=== PATIENT | male | born 1960 | race Caucasian/White ===

== ENCOUNTER 2018-03-27 17:31 | Inpatient (IN) | payer MEDICARE ==
[2018-03-27] MEDS ORDERED: MORPHINE SULFATE 2 MG/ML DISP.SYRIN. IV (18:30)
[2018-03-27] MEDS: INSULIN LISPRO 300 UNITS/3 ML INSULN.PEN. SQ ×2 (18:30→23:37)
[2018-03-27] MEDS ORDERED: PIP/TAZO PER PHARMACY MC (18:30)
[2018-03-27] MEDS ORDERED: ONDANSETRON PF 4 MG/2 ML VIAL. IV (18:30)
[2018-03-27] MEDS ORDERED: DOCUSATE SODIUM 100 MG CAPSULE. PO (18:30)
[2018-03-27] MEDS: INSULIN REGULAR 100 UNIT/ML 3ML VIAL. IV ×2 (18:43→20:01)
[2018-03-27] MEDS: VANCOMYCIN 2 GM in IV 1/2 NORMAL SALINE 500 ML IV (18:46)
[2018-03-27] MEDS: PIPERACILLIN/TAZOBACTAM 2.25 GM in IV NORMAL SALINE 50ML 50 ML IV ×2 (19:00→22:00)
[2018-03-27 19:07] LABS: ALBUMIN 2.1 g/dL (3.4-5.0); ALK PHOS 125 U/L (46-116); ALT (SGPT) 14 U/L (16-63); AST (SGOT) 16 U/L (15-37); DIRECT BILIRUBIN 0.2 mg/dL (0.0-0.2); TOTAL BILIRUBIN 0.5 mg/dL (0.2-1.0); TOTAL PROTEIN 5.2 g/dL (6.4-8.2)
[2018-03-27 19:11] LABS: LACTIC ACID 1.3 mmol/L (0.4-2.0)
[2018-03-27 19:42] LABS: THYROID STIM HORMONE (TSH) 193.574 uIU/mL (0.358-3.74)
[2018-03-27] MEDS: INSULIN GLARGINE 300 UNITS/3 ML INSULN.PEN. SQ ×2 (20:02→23:36)
[2018-03-27] MEDS: VANCOMYCIN PER PHARMACY MC (20:05)
[2018-03-27 21:47] LABS: FREE T4 0.55 ng/dL (0.76-1.46)
[2018-03-27] MEDS: HEPARIN PF for SUB-Q USE 5,000 UNIT/0.5 ML VIAL. SQ (23:04)
[2018-03-28] MEDS ORDERED: PIPERACILLIN/TAZOBACTAM 3.375 GM in IV NORMAL SALINE 50ML 50 ML IV
[2018-03-28 03:52] LABS: POC GLUCOSE 481 mg/dL (70-99)
[2018-03-28 03:52] LABS: POC GLUCOSE 419 mg/dL (70-99)
[2018-03-28 03:52] LABS: POC GLUCOSE 486 mg/dL (70-99)
[2018-03-28 04:32] LABS: POC GLUCOSE 120 mg/dL (70-99)
[2018-03-28] MEDS: ACETAMINOPHEN 325 MG TABLET. PO (04:40)
[2018-03-28] MEDS: HEPARIN PF for SUB-Q USE 5,000 UNIT/0.5 ML VIAL. SQ ×3 (06:07→21:21)
[2018-03-28] MEDS: PIPERACILLIN/TAZOBACTAM 2.25 GM in IV NORMAL SALINE 50ML 50 ML IV ×3 (06:07→21:19)
[2018-03-28 07:55] LABS: POC GLUCOSE 33 mg/dL (70-99)
[2018-03-28] MEDS: DEXTROSE 50% 25 GM / 50ML DISP.SYRIN. IV (07:56)
[2018-03-28 07:59] LABS: ADD MAN DIFF? NO
[2018-03-28] MEDS: INSULIN LISPRO 300 UNITS/3 ML INSULN.PEN. SQ ×3 (08:00→17:11)
[2018-03-28 08:01] LABS: BASO # 0.1 x10^3/uL (0.0-0.2); BASO % 3 % (0-3); EOS % 1 % (0-3); HEMATOCRIT 28.9 % (39.0-53.0); HEMOGLOBIN 9.8 g/dL (13.0-17.5); LYMPH # 1.2 x10^3/uL (1.0-4.8); LYMPH % 28 % (24-48); MEAN CORPUSCULAR HEMOGLOBIN 29 pg (25-35); MEAN CORPUSCULAR HGB CONC 34 g/dL (31-37); MEAN CORPUSCULAR VOLUME 86 fL (79-100); MONO # 0.4 x10^3/uL (0.0-1.1); MONO % 10 % (0-9); NEUT # 2.4 x10^3uL (1.8-7.7); NEUT % 58 % (31-73); PLATELET COUNT 79 x10^3/uL (140-400); RED BLOOD COUNT 3.38 x10^6/uL (4.30-5.70); RED CELL DISTRIBUTION WIDTH 17.8 % (11.5-14.5); WHITE BLOOD COUNT 4.2 x10^3/uL (4.0-11.0)
[2018-03-28 08:08] LABS: POC GLUCOSE 128 mg/dL (70-99)
[2018-03-28] MEDS ORDERED: MAGNESIUM SULFATE 2GM 50 ML IV (08:30)
[2018-03-28 08:42] LABS: ANION GAP 4 (6-14); BLOOD UREA NITROGEN 42 mg/dL (8-26); CALCIUM 7.7 mg/dL (8.5-10.1); CARBON DIOXIDE 28 mmol/L (21-32); CHLORIDE 100 mmol/L (98-107); CREATININE 5.6 mg/dL (0.7-1.3); GFR 10.6; GLUCOSE 45 mg/dL (70-99); POTASSIUM 3.1 mmol/L (3.5-5.1); SODIUM 132 mmol/L (136-145)
[2018-03-28 09:11] LABS: POC GLUCOSE 74 mg/dL (70-99)
[2018-03-28] MEDS: VANCOMYCIN PER PHARMACY MC (09:47)
[2018-03-28] MEDS: POTASSIUM CHLORIDE 20 MEQ TABLET.ER. PO ×2 (10:08→14:52)
[2018-03-28 10:11] LABS: THYROID STIM HORMONE (TSH) 227.417 uIU/mL (0.358-3.74)
[2018-03-28] MEDS: DEXTROSE ORAL GEL 15 GM TUBE. PO (10:35)
[2018-03-28] MEDS ORDERED: DEXTROSE ORAL GEL 15 GM TUBE. (10:39)
[2018-03-28 11:43] LABS: POC GLUCOSE 59 mg/dL (70-99)
[2018-03-28 11:43] LABS: POC GLUCOSE 96 mg/dL (70-99)
[2018-03-28 12:33] LABS: VITAMIN-B12 1030 pg/mL (247-911)
[2018-03-28 12:34] LABS: POC GLUCOSE 101 mg/dL (70-99)
[2018-03-28] MEDS: IV DEXTROSE 10% 1,000 ML IV (13:30)
[2018-03-28 13:48] LABS: % ATYL 5 % (0-0); % BANDS 27 % (0-9); % BASOS 3 % (0-3); % EOS 6 % (0-5); % LYMPHS 23 % (24-48); % METAS 1 % (0-0); % MONOS 8 % (0-10); PLT ESTIMATE DECREASED (ADEQUATE)
[2018-03-28 13:49] LABS: % SEGS 27 % (35-66)
[2018-03-28 13:50] LABS: ANISOCYTOSIS SLIGHT; OVALOCYTES PRESENT; POLYCHROMASIA SLIGHT
[2018-03-28 14:11] LABS: POC GLUCOSE 156 mg/dL (70-99)
[2018-03-28] MEDS: LACTOBACILLUS RHAMNOSUS GG 1 CAPSULE. PO ×2 (14:24→14:32)
[2018-03-28] MEDS: LEVOTHYROXINE 137 MCG TABLET PO (14:26)
[2018-03-28] MEDS: ERGOCALCIFEROL (VITAMIN D2) 50,000 UNIT CAPSULE. PO (14:26)
[2018-03-28 16:57] LABS: POC GLUCOSE 157 mg/dL (70-99)
[2018-03-28] MEDS: ASPIRIN 325 MG TABLET PO (17:15)
[2018-03-28 20:06] LABS: BILIRUBIN,URINE SMALL (NEG); CLARITY,URINE CLEAR; COLOR,URINE YELLOW; GLUCOSE,URINE >=1000 mg/dL (NEG); NITRITE,URINE NEGATIVE (NEG); PROTEIN,URINE >=300 mg/dL (NEG-TRACE); UROBILINOGEN,URINE 0.2 mg/dL (0.2 mg/dL)
[2018-03-28 20:23] LABS: BACTERIA,URINE FEW /HPF (0-FEW); BARBITURATES NEG (NEG); BENZODIAZEPINES NEG (NEG); CANNABINOIDS NEG (NEG); COCAINE NEG (NEG); METHADONE NEG (NEG); OPIATES NEG (NEG); PHENCYCLIDINE NEG (NEG); SQUAMOUS EPITHELIAL CELL,UR FEW /LPF
[2018-03-28 20:26] LABS: AMPHETAMINE/METHAMPHETAMINE NEG (NEG)
[2018-03-28 20:27] LABS: ETHANOL, URINE NEG (NEG)
[2018-03-28] MEDS: INSULIN GLARGINE 300 UNITS/3 ML INSULN.PEN. SQ (21:20)
[2018-03-28 21:26] LABS: POC GLUCOSE 209 mg/dL (70-99)
[2018-03-28 22:13] LABS: MRSA BY PCR Negative (Negative)
[2018-03-29] MEDS: hydrALAZINE 20 MG/ML VIAL. IVP (03:18)
[2018-03-29] MEDS: VANCOMYCIN RANDOM LEVEL. MC (05:00)
[2018-03-29 05:12] LABS: HEMOGLOBIN 9.3 g/dL (13.0-17.5)
[2018-03-29 05:38] LABS: ALBUMIN 1.8 g/dL (3.4-5.0); ANION GAP 8 (6-14); BLOOD UREA NITROGEN 47 mg/dL (8-26); CALCIUM 7.5 mg/dL (8.5-10.1); CARBON DIOXIDE 27 mmol/L (21-32); CHLORIDE 100 mmol/L (98-107); CHOLESTEROL 130 mg/dL (0-200); CREATININE 6.3 mg/dL (0.7-1.3); GFR 9.3; GLUCOSE 262 mg/dL (70-99); HDLC 13 mg/dL (40-60); LDLC 38 mg/dL (0-100); MAGNESIUM 1.8 mg/dL (1.8-2.4); NON-HDL CHOLESTEROL 117 mg/dL (0-129); PHOSPHORUS 3.9 mg/dL (2.6-4.7); POTASSIUM 3.7 mmol/L (3.5-5.1); SODIUM 135 mmol/L (136-145); TRIGLYCERIDES 393 mg/dL (0-150); VLDLC 79 mg/dL (0-40)
[2018-03-29] MEDS: LEVOTHYROXINE 137 MCG TABLET PO (06:18)
[2018-03-29] MEDS: PIPERACILLIN/TAZOBACTAM 2.25 GM in IV NORMAL SALINE 50ML 50 ML IV ×3 (06:18→21:23)
[2018-03-29] MEDS: HEPARIN PF for SUB-Q USE 5,000 UNIT/0.5 ML VIAL. SQ ×3 (06:19→21:27)
[2018-03-29] MEDS: INSULIN LISPRO 300 UNITS/3 ML INSULN.PEN. SQ ×5 (08:00→17:11)
[2018-03-29] MEDS: LACTOBACILLUS RHAMNOSUS GG 1 CAPSULE. PO ×2 (08:05→21:22)
[2018-03-29] MEDS: ASPIRIN 325 MG TABLET PO (08:05)
[2018-03-29] MEDS ORDERED: DIALYSIS PATIENT. MC (09:00)
[2018-03-29] MEDS ORDERED: IV NORMAL SALINE 1000ML BAG 1,000 ML IV ×2 (09:00)
[2018-03-29] MEDS ORDERED: diphenhydrAMINE 50 MG/ML VIAL IV ×2 (09:00)
[2018-03-29 09:07] LABS: POC GLUCOSE 193 mg/dL (70-99)
[2018-03-29 12:03] LABS: POC GLUCOSE 136 mg/dL (70-99)
[2018-03-29 12:16] LABS: HEPATITIS B SURFACE AG Nonreactive (Nonreactive)
[2018-03-29] MEDS: VANCOMYCIN PER PHARMACY MC (13:16)
[2018-03-29] MEDS: VANCOMYCIN 500 MG in IV DEXTROSE 5% 100ML 100 ML IV (15:26)
[2018-03-29 17:08] LABS: POC GLUCOSE 167 mg/dL (70-99)
[2018-03-29] MEDS ORDERED: INSULIN GLARGINE 300 UNITS/3 ML INSULN.PEN. SQ (21:00)
[2018-03-29] MEDS: INSULIN GLARGINE 300 UNITS/3 ML INSULN.PEN. SQ (21:26)
[2018-03-29 21:36] LABS: POC GLUCOSE 142 mg/dL (70-99)
[2018-03-30] MEDS: traMADol 50 MG TABLET PO ×2 (01:09→21:01)
[2018-03-30] MEDS: HEPARIN PF for SUB-Q USE 5,000 UNIT/0.5 ML VIAL. SQ ×3 (06:00→21:02)
[2018-03-30] MEDS: LEVOTHYROXINE 137 MCG TABLET PO (06:07)
[2018-03-30] MEDS: PIPERACILLIN/TAZOBACTAM 2.25 GM in IV NORMAL SALINE 50ML 50 ML IV (06:10)
[2018-03-30] MEDS: INSULIN LISPRO 300 UNITS/3 ML INSULN.PEN. SQ ×6 (07:30→17:51)
[2018-03-30 07:53] LABS: POC GLUCOSE 88 mg/dL (70-99)
[2018-03-30 08:50] LABS: ALBUMIN 1.8 g/dL (3.4-5.0); ANION GAP 6 (6-14); BLOOD UREA NITROGEN 33 mg/dL (8-26); CARBON DIOXIDE 28 mmol/L (21-32); CHLORIDE 103 mmol/L (98-107); CREATININE 4.9 mg/dL (0.7-1.3); GFR 12.4; GLUCOSE 77 mg/dL (70-99); MAGNESIUM 1.9 mg/dL (1.8-2.4); PHOSPHORUS 2.9 mg/dL (2.6-4.7); POTASSIUM 3.6 mmol/L (3.5-5.1); SODIUM 137 mmol/L (136-145)
[2018-03-30 08:53] LABS: PARTIAL THROMBOPLASTIN TIME 42 SEC (24-38)
[2018-03-30] MEDS: DEXTROSE 50% 25 GM / 50ML DISP.SYRIN. IV (12:27)
[2018-03-30 12:28] LABS: POC GLUCOSE 59 mg/dL (70-99)
[2018-03-30] MEDS ORDERED: HEPARIN for IV BOLUS 10,000 UNIT/10 ML VIAL. (13:05)
[2018-03-30] MEDS ORDERED: LIDOCAINE 2%/EPI 1:100,000 20 ML VIAL. (13:05)
[2018-03-30 13:06] LABS: POC GLUCOSE 91 mg/dL (70-99)
[2018-03-30] MEDS ORDERED: fentaNYL PF VIAL 100 MCG/2 ML VIAL (13:45)
[2018-03-30] MEDS ORDERED: MIDAZOLAM HCL/PF 2 MG/2 ML VIAL. (13:45)
[2018-03-30] MEDS: LIDOCAINE 2%/EPI 1:100,000 20 ML VIAL. IJ (14:07)
[2018-03-30] MEDS: MIDAZOLAM HCL/PF 2 MG/2 ML VIAL. IV (14:08)
[2018-03-30] MEDS: fentaNYL PF VIAL 100 MCG/2 ML VIAL IV (14:08)
[2018-03-30] MEDS: HEPARIN for IV BOLUS 10,000 UNIT/10 ML VIAL. INT CAT (14:08)
[2018-03-30 17:26] LABS: POC GLUCOSE 230 mg/dL (70-99)
[2018-03-30] MEDS: ASPIRIN 325 MG TABLET PO (17:44)
[2018-03-30] MEDS: LACTOBACILLUS RHAMNOSUS GG 1 CAPSULE. PO ×2 (17:44→21:01)
[2018-03-30 20:38] LABS: POC GLUCOSE 333 mg/dL (70-99)
[2018-03-30] MEDS: INSULIN GLARGINE 300 UNITS/3 ML INSULN.PEN. SQ (21:03)
[2018-03-31] MEDS: hydrALAZINE 20 MG/ML VIAL. IVP (04:17)
[2018-03-31 04:34] LABS: ADD MAN DIFF? NO
[2018-03-31 04:46] LABS: BASO % 1 % (0-3); EOS % 1 % (0-3); HEMATOCRIT 26.6 % (39.0-53.0); HEMOGLOBIN 8.8 g/dL (13.0-17.5); LYMPH # 1.7 x10^3/uL (1.0-4.8); LYMPH % 46 % (24-48); MEAN CORPUSCULAR HEMOGLOBIN 29 pg (25-35); MEAN CORPUSCULAR HGB CONC 33 g/dL (31-37); MEAN CORPUSCULAR VOLUME 88 fL (79-100); MONO # 0.3 x10^3/uL (0.0-1.1); MONO % 8 % (0-9); NEUT # 1.7 x10^3uL (1.8-7.7); NEUT % 44 % (31-73); PLATELET COUNT 100 x10^3/uL (140-400); RED BLOOD COUNT 3.03 x10^6/uL (4.30-5.70); WHITE BLOOD COUNT 3.8 x10^3/uL (4.0-11.0)
[2018-03-31 05:20] LABS: MAGNESIUM 1.8 mg/dL (1.8-2.4)
[2018-03-31 05:27] LABS: ANION GAP 7 (6-14); BLOOD UREA NITROGEN 39 mg/dL (8-26); CALCIUM 7.3 mg/dL (8.5-10.1); CARBON DIOXIDE 29 mmol/L (21-32); CHLORIDE 102 mmol/L (98-107); CREATININE 5.8 mg/dL (0.7-1.3); GFR 10.2; GLUCOSE 258 mg/dL (70-99); PHOSPHORUS 3.5 mg/dL (2.6-4.7); POTASSIUM 4.3 mmol/L (3.5-5.1); SODIUM 138 mmol/L (136-145)
[2018-03-31] MEDS: HEPARIN PF for SUB-Q USE 5,000 UNIT/0.5 ML VIAL. SQ ×3 (05:49→20:54)
[2018-03-31] MEDS: LEVOTHYROXINE 137 MCG TABLET PO (06:03)
[2018-03-31 07:34] LABS: POC GLUCOSE 352 mg/dL (70-99)
[2018-03-31] MEDS: ASPIRIN 325 MG TABLET PO (07:43)
[2018-03-31] MEDS: LACTOBACILLUS RHAMNOSUS GG 1 CAPSULE. PO ×2 (07:44→20:40)
[2018-03-31] MEDS: INSULIN LISPRO 300 UNITS/3 ML INSULN.PEN. SQ ×6 (07:50→17:00)
[2018-03-31] MEDS ORDERED: DIALYSIS PATIENT. MC ×2 (08:30)
[2018-03-31] MEDS: VANCOMYCIN PER PHARMACY MC (10:46)
[2018-03-31 12:25] LABS: POC GLUCOSE 101 mg/dL (70-99)
[2018-03-31] MEDS: DEXTROSE 5% IV (13:43)
[2018-03-31] MEDS: CEFEPIME HCL IV (13:43)
[2018-03-31] MEDS: VANCOMYCIN 500 MG in IV DEXTROSE 5% 100ML 100 ML IV (15:08)
[2018-03-31 17:30] LABS: POC GLUCOSE 70 mg/dL (70-99)
[2018-03-31 20:44] LABS: POC GLUCOSE 431 mg/dL (70-99)
[2018-03-31] MEDS: INSULIN GLARGINE 300 UNITS/3 ML INSULN.PEN. SQ (20:47)
[2018-03-31] MEDS: ACETAMINOPHEN 325 MG TABLET. PO (23:56)
[2018-04-01 05:01] LABS: ADD MAN DIFF? NO
[2018-04-01 05:27] LABS: BASO # 0.1 x10^3/uL (0.0-0.2); BASO % 2 % (0-3); EOS % 0 % (0-3); HEMATOCRIT 24.5 % (39.0-53.0); LYMPH # 2.8 x10^3/uL (1.0-4.8); LYMPH % 61 % (24-48); MEAN CORPUSCULAR HEMOGLOBIN 29 pg (25-35); MEAN CORPUSCULAR HGB CONC 33 g/dL (31-37); MEAN CORPUSCULAR VOLUME 88 fL (79-100); MONO # 0.3 x10^3/uL (0.0-1.1); MONO % 7 % (0-9); NEUT # 1.4 x10^3uL (1.8-7.7); NEUT % 30 % (31-73); PLATELET COUNT 97 x10^3/uL (140-400); RED BLOOD COUNT 2.78 x10^6/uL (4.30-5.70); WHITE BLOOD COUNT 4.5 x10^3/uL (4.0-11.0)
[2018-04-01 06:05] LABS: MAGNESIUM 1.8 mg/dL (1.8-2.4)
[2018-04-01 06:06] LABS: ALBUMIN 1.9 g/dL (3.4-5.0); ANION GAP 4 (6-14); BLOOD UREA NITROGEN 28 mg/dL (8-26); CALCIUM 7.4 mg/dL (8.5-10.1); CARBON DIOXIDE 30 mmol/L (21-32); CHLORIDE 104 mmol/L (98-107); CREATININE 4.3 mg/dL (0.7-1.3); GFR 14.4; GLUCOSE 184 mg/dL (70-99); PHOSPHORUS 2.5 mg/dL (2.6-4.7); POTASSIUM 3.9 mmol/L (3.5-5.1); SODIUM 138 mmol/L (136-145)
[2018-04-01 06:09] LABS: % SAT IRON 14 % (15-34); IRON,SERUM 17 ug/dL (65-175)
[2018-04-01] MEDS: LEVOTHYROXINE 137 MCG TABLET PO (06:20)
[2018-04-01] MEDS: HEPARIN PF for SUB-Q USE 5,000 UNIT/0.5 ML VIAL. SQ ×3 (06:25→21:03)
[2018-04-01 06:26] LABS: FERRITIN 941 ng/mL (26-388)
[2018-04-01] MEDS: INSULIN LISPRO 300 UNITS/3 ML INSULN.PEN. SQ ×6 (08:00→17:42)
[2018-04-01 08:18] LABS: POC GLUCOSE 146 mg/dL (70-99)
[2018-04-01] MEDS: ASPIRIN 325 MG TABLET PO (08:32)
[2018-04-01] MEDS: LACTOBACILLUS RHAMNOSUS GG 1 CAPSULE. PO ×2 (08:32→20:55)
[2018-04-01] MEDS: VANCOMYCIN PER PHARMACY MC (10:58)
[2018-04-01 12:41] LABS: POC GLUCOSE 71 mg/dL (70-99)
[2018-04-01] MEDS: FERROUS SULFATE 325 MG TABLET. PO ×2 (14:18→20:55)
[2018-04-01 14:47] LABS: FECAL OB PT NEGATIVE (NEG); NEG OBC FOB NEG; POS OBC FOB POS
[2018-04-01 17:02] LABS: POC GLUCOSE 163 mg/dL (70-99)
[2018-04-01] MEDS: DARBEPOETIN ALFA 60 MCG/0.3 ML DISP.SYRIN. SQ (20:55)
[2018-04-01 20:58] LABS: POC GLUCOSE 127 mg/dL (70-99)
[2018-04-01] MEDS: INSULIN GLARGINE 300 UNITS/3 ML INSULN.PEN. SQ (21:02)
[2018-04-02 04:10] LABS: BASO # 0.1 x10^3/uL (0.0-0.2); BASO % 1 % (0-3); EOS # 0.1 x10^3/uL (0.0-0.7); EOS % 2 % (0-3); HEMATOCRIT 26.2 % (39.0-53.0); HEMOGLOBIN 8.8 g/dL (13.0-17.5); LYMPH # 4.4 x10^3/uL (1.0-4.8); LYMPH % 67 % (24-48); MEAN CORPUSCULAR HEMOGLOBIN 29 pg (25-35); MEAN CORPUSCULAR HGB CONC 33 g/dL (31-37); MEAN CORPUSCULAR VOLUME 88 fL (79-100); MONO # 0.5 x10^3/uL (0.0-1.1); MONO % 8 % (0-9); NEUT # 1.5 x10^3uL (1.8-7.7); NEUT % 22 % (31-73); PLATELET COUNT 118 x10^3/uL (140-400); RED BLOOD COUNT 2.98 x10^6/uL (4.30-5.70); RED CELL DISTRIBUTION WIDTH 18.1 % (11.5-14.5); WHITE BLOOD COUNT 6.6 x10^3/uL (4.0-11.0)
[2018-04-02 04:13] LABS: ADD MAN DIFF? YES; RETIC COUNT 1.1 % (0.5-2.5)
[2018-04-02 04:20] LABS: FIBRINOGEN 280 mg/dL (200-440)
[2018-04-02 04:22] LABS: MAGNESIUM 1.9 mg/dL (1.8-2.4)
[2018-04-02 04:25] LABS: ANION GAP 4 (6-14); BLOOD UREA NITROGEN 48 mg/dL (8-26); CALCIUM 7.4 mg/dL (8.5-10.1); CARBON DIOXIDE 30 mmol/L (21-32); CHLORIDE 103 mmol/L (98-107); CREATININE 5.1 mg/dL (0.7-1.3); GFR 11.8; GLUCOSE 149 mg/dL (70-99); PHOSPHORUS 3.3 mg/dL (2.6-4.7); POTASSIUM 4.4 mmol/L (3.5-5.1); SODIUM 137 mmol/L (136-145)
[2018-04-02 04:26] LABS: LACTATE DEHYDROGENASE 312 U/L (85-227)
[2018-04-02 06:07] LABS: % ATYL 3 % (0-0); % BANDS 5 % (0-9); % EOS 2 % (0-5); % LYMPHS 39 % (24-48); % MONOS 19 % (0-10); % SEGS 32 % (35-66)
[2018-04-02 06:08] LABS: ANISOCYTOSIS PRESENT; PLT ESTIMATE ADEQUATE (ADEQUATE)
[2018-04-02] MEDS: LEVOTHYROXINE 137 MCG TABLET PO (06:09)
[2018-04-02] MEDS: HEPARIN PF for SUB-Q USE 5,000 UNIT/0.5 ML VIAL. SQ (06:12)
[2018-04-02] MEDS: INSULIN LISPRO 300 UNITS/3 ML INSULN.PEN. SQ ×4 (08:00→12:36)
[2018-04-02] MEDS ORDERED: FERROUS SULFATE 325 MG TABLET. PO (08:00)
[2018-04-02 08:34] LABS: POC GLUCOSE 114 mg/dL (70-99)
[2018-04-02] MEDS: ASPIRIN 325 MG TABLET PO (08:51)
[2018-04-02] MEDS: FERROUS SULFATE 325 MG TABLET. PO ×2 (08:51→14:31)
[2018-04-02] MEDS: LACTOBACILLUS RHAMNOSUS GG 1 CAPSULE. PO (08:51)
[2018-04-02 11:36] LABS: POC GLUCOSE 90 mg/dL (70-99)
[2018-04-02] MEDS: VANCOMYCIN PER PHARMACY MC (13:02)
[2018-04-02] MEDS ORDERED: HEPARIN PF for SUB-Q USE 5,000 UNIT/0.5 ML VIAL. SQ (21:00)
[2018-04-03 12:37] LABS: VITAMIN-B12 681 pg/mL (247-911)
[2018-04-03 12:37] LABS: FOLATE 5.49 ng/ml (3.2-20.0)
[2018-04-03 15:03] LABS: HIV AB SCREEN Nonreactive (Nonreactive)
[2018-04-03] MEDS ORDERED: CEFEPIME HCL IV Push 2 GM VIAL. IVP (16:00)
[2018-04-04 06:20] LABS: ALBUM 2.3 g/dL (2.9-4.4); ALPHA 1 0.3 g/dL (0.0-0.4); ALPHA 2 0.7 g/dL (0.4-1.0); BETA 0.7 g/dL (0.7-1.3); GAMMA 0.8 g/dL (0.4-1.8); M-SPIKE Not Observed g/dL (Not Observed); PROTEIN TOTAL 4.7 g/dL (6.0-8.5)
[2018-04-05 00:13] LABS: COPPER LEVEL 105 ug/dL (72-166)
== END 2018-04-02 14:50 | disposition home or self-care (01) | DRG 871 ==
LOC: 2 NORTH 03-30 00:38 → 1 WEST ICU 17:31
PROVIDERS: Internal Medicine
PROC: 02PY33Z Removal of Infusion Device from Great Vessel, Percutaneous Approach (ICD-10-PCS; principal; 2018-03-30)
PROC: 02H633Z Insertion of Infusion Device into Right Atrium, Percutaneous Approach (ICD-10-PCS; 2018-03-30)
PROC: B2141ZZ Fluoroscopy of Right Heart using Low Osmolar Contrast (ICD-10-PCS; 2018-03-30)
PROC: 5A1D70Z Performance of Urinary Filtration, Intermittent, Less than 6 Hours Per Day (ICD-10-PCS; 2018-03-30)
PROC: 5A1D70Z Performance of Urinary Filtration, Intermittent, Less than 6 Hours Per Day (ICD-10-PCS; 2018-03-30)
PROC: 0JPT3XZ Removal of Tunneled Vascular Access Device from Trunk Subcutaneous Tissue and Fascia, Percutaneous Approach (ICD-10-PCS; 2018-03-30)
DX: A41.9 Sepsis, unspecified organism (principal); I63.9 Cerebral infarction, unspecified; N18.6 End stage renal disease; G92 Toxic encephalopathy; I12.0 Hypertensive chronic kidney disease with stage 5 chronic kidney disease or end stage renal disease; J90 Pleural effusion, not elsewhere classified; D61.818 Other pancytopenia; E11.65 Type 2 diabetes mellitus with hyperglycemia; E11.22 Type 2 diabetes mellitus with diabetic chronic kidney disease; E11.649 Type 2 diabetes mellitus with hypoglycemia without coma; E21.3 Hyperparathyroidism, unspecified; E03.9 Hypothyroidism, unspecified; M19.90 Unspecified osteoarthritis, unspecified site; K21.9 Gastro-esophageal reflux disease without esophagitis; K63.5 Polyp of colon; H54.7 Unspecified visual loss; D63.8 Anemia in other chronic diseases classified elsewhere; D69.59 Other secondary thrombocytopenia; G89.29 Other chronic pain; E87.6 Hypokalemia; E78.5 Hyperlipidemia, unspecified; E55.9 Vitamin D deficiency, unspecified; E61.1 Iron deficiency; Z79.4 Long term (current) use of insulin; Z83.3 Family history of diabetes mellitus; Z82.49 Family history of ischemic heart disease and other diseases of the circulatory system; Z88.8 Allergy status to other drugs, medicaments and biological substances; Z87.891 Personal history of nicotine dependence; Z84.89 Family history of other specified conditions; Z99.2 Dependence on renal dialysis; Z91.19 Patient's noncompliance with other medical treatment and regimen
CPT/HCPCS: 36415; 36581; 70551; 71045; 77001; 80048; 80061; 80069; 80076; 80202; 80307; 81001; 82274; 82306; 82607; 82728; 82746; 82962; 83036; 83540; 83550; 83605; 83615; 83735; 84165; 84439; 84443; 84481; 85007; 85018; 85025; 85045; 85384; 85610; 85730; 86703; 87040; 87340; 87641; 93005; 93880; 95816; 97110-GP; 97116-GP; 97140-GP; 97162-GP; 97166-GO; 99152; C1750; C1769; C8929; J0360; J0692; J0881; J1644; J1815; J2250; J2543; J3010; J3370; J3490; J7042

== ENCOUNTER 2018-05-01 07:44 | Inpatient (IN) | payer MEDICARE ==
[2018-05-01 08:09] LABS: ADD MAN DIFF? NO
[2018-05-01 08:14] LABS: BASO # 0.1 x10^3/uL (0.0-0.2); BASO % 1 % (0-3); EOS # 0.7 x10^3/uL (0.0-0.7); EOS % 8 % (0-3); HEMATOCRIT 27.8 % (39.0-53.0); HEMOGLOBIN 9.3 g/dL (13.0-17.5); LYMPH # 2.3 x10^3/uL (1.0-4.8); LYMPH % 28 % (24-48); MEAN CORPUSCULAR HEMOGLOBIN 31 pg (25-35); MEAN CORPUSCULAR HGB CONC 33 g/dL (31-37); MEAN CORPUSCULAR VOLUME 92 fL (79-100); MONO # 0.6 x10^3/uL (0.0-1.1); MONO % 8 % (0-9); NEUT # 4.4 x10^3uL (1.8-7.7); NEUT % 54 % (31-73); PLATELET COUNT 154 x10^3/uL (140-400); RED BLOOD COUNT 3.02 x10^6/uL (4.30-5.70); RED CELL DISTRIBUTION WIDTH 18.5 % (11.5-14.5); WHITE BLOOD COUNT 8.1 x10^3/uL (4.0-11.0)
[2018-05-01 08:24] LABS: INR 1.1 (0.8-1.1); PROTHROMBIN TIME PATIENT 13.9 SEC (11.7-14.0)
[2018-05-01 08:25] LABS: PARTIAL THROMBOPLASTIN TIME 38 SEC (24-38)
[2018-05-01 08:26] LABS: ANION GAP 11 (6-14); BLOOD UREA NITROGEN 52 mg/dL (8-26); CALCIUM 8.1 mg/dL (8.5-10.1); CARBON DIOXIDE 23 mmol/L (21-32); CHLORIDE 99 mmol/L (98-107); GFR 8.2; GLUCOSE 308 mg/dL (70-99); POTASSIUM 5.8 mmol/L (3.5-5.1); SODIUM 133 mmol/L (136-145)
[2018-05-01 08:35] LABS: TROPONINI < 0.017 ng/mL (0.000-0.055)
[2018-05-01] MEDS: METOPROLOL SUCC 24HR ER 25 MG TAB.ER.24H. PO ×2 (09:22→14:00)
[2018-05-01] MEDS: amLODIPine BESYLATE 5 MG TABLET PO (09:23)
[2018-05-01] MEDS ORDERED: ONDANSETRON PF 4 MG/2 ML VIAL. IV (09:30)
[2018-05-01] MEDS ORDERED: ACETAMINOPHEN 325 MG TABLET. PO (09:30)
[2018-05-01 11:21] LABS: POC GLUCOSE 263 mg/dL (70-99)
[2018-05-01] MEDS ORDERED: DEXTROSE 50% 25 GM / 50ML DISP.SYRIN. IV (13:00)
[2018-05-01] MEDS: ASPIRIN 325 MG TABLET PO (14:00)
[2018-05-01] MEDS: FERROUS SULFATE 325 MG TABLET. PO ×2 (14:00→20:53)
[2018-05-01] MEDS: LEVOTHYROXINE 137 MCG TABLET PO (14:00)
[2018-05-01] MEDS: INSULIN LISPRO 300 UNITS/3 ML INSULN.PEN. SQ ×2 (16:30→16:39)
[2018-05-01] MEDS: METOCLOPRAMIDE 5 MG TABLET. PO (20:53)
[2018-05-01 21:26] LABS: POC GLUCOSE 291 mg/dL (70-99)
[2018-05-01] MEDS: ZOLPIDEM 5 MG TABLET. PO (21:27)
[2018-05-02 01:38] LABS: HEPATITIS B SURFACE AG Nonreactive (Nonreactive)
[2018-05-02] MEDS: LEVOTHYROXINE 137 MCG TABLET PO (06:28)
[2018-05-02 07:29] LABS: POC GLUCOSE 495 mg/dL (70-99)
[2018-05-02] MEDS: INSULIN LISPRO 300 UNITS/3 ML INSULN.PEN. SQ ×5 (07:33→12:12)
[2018-05-02] MEDS: METOPROLOL SUCC 24HR ER 25 MG TAB.ER.24H. PO ×2 (07:51→09:36)
[2018-05-02] MEDS: PANTOPRAZOLE 40 MG TABLET.DR. PO (07:51)
[2018-05-02] MEDS: METOCLOPRAMIDE 5 MG TABLET. PO ×2 (07:51→12:07)
[2018-05-02] MEDS: ASPIRIN 325 MG TABLET PO (07:51)
[2018-05-02] MEDS: FERROUS SULFATE 325 MG TABLET. PO (07:51)
[2018-05-02 08:29] LABS: POC GLUCOSE 434 mg/dL (70-99)
[2018-05-02] MEDS ORDERED: INSULIN ASPART 100 UNIT/ML 10ML VIAL. SQ (09:00)
[2018-05-02 11:31] LABS: POC GLUCOSE 352 mg/dL (70-99)
== END 2018-05-02 12:55 | disposition home or self-care (01) | DRG 682 ==
LOC: ER 07:44 → 6 SOUTH 09:20
PROC: 5A1D70Z Performance of Urinary Filtration, Intermittent, Less than 6 Hours Per Day (ICD-10-PCS; principal; 2018-05-01)
DX: I12.0 Hypertensive chronic kidney disease with stage 5 chronic kidney disease or end stage renal disease (principal); N18.6 End stage renal disease; E87.5 Hyperkalemia; I16.0 Hypertensive urgency; E11.22 Type 2 diabetes mellitus with diabetic chronic kidney disease; E78.5 Hyperlipidemia, unspecified; E03.9 Hypothyroidism, unspecified; D64.9 Anemia, unspecified; Z99.2 Dependence on renal dialysis; Z88.8 Allergy status to other drugs, medicaments and biological substances; Z82.49 Family history of ischemic heart disease and other diseases of the circulatory system; Z83.3 Family history of diabetes mellitus; Z80.9 Family history of malignant neoplasm, unspecified
CPT/HCPCS: 36415; 71045; 80048; 82962; 84484; 85025; 85610; 85730; 87340; 93005; 99285-25; J1815; J8597

== ENCOUNTER 2018-08-04 07:25 | Inpatient (IN) | payer MEDICARE ==
[~2018-08-04] VITALS: Ht 175.3 cm; Wt 93.9 kg
[~2018-08-04 07:25] MED LIST: AMLO10TA6 PO; ASPI325T8 PO; CYAN100031 PO; ERGO500027 PO; FERR325T14 PO; FERR325T72 PO; FOLI1TAB30 PO; FURO80TA3 PO; HYDR-2869 PO; INSU100I11 SQ; INSU100I13 SQ; INSU100I17 SQ; INSU100V8 SQ; LEVO137T2 PO; LEVO50TA PO; METF10007 PO; METO-239 PO; MULT-658 PO; POTA500T5 PO; RABE20TA18 PO; THYR90TA PO
[2018-08-04 07:50] LABS: BASO # 0.2 x10^3/uL (0.0-0.2); BASO % 2 % (0-3); EOS # 0.4 x10^3/uL (0.0-0.7); EOS % 5 % (0-3); HEMATOCRIT 33.4 % (39.0-53.0); HEMOGLOBIN 11.2 g/dL (13.0-17.5); LYMPH # 1.5 x10^3/uL (1.0-4.8); LYMPH % 18 % (24-48); MEAN CORPUSCULAR HEMOGLOBIN 29 pg (25-35); MEAN CORPUSCULAR HGB CONC 33 g/dL (31-37); MEAN CORPUSCULAR VOLUME 86 fL (79-100); MONO # 0.4 x10^3/uL (0.0-1.1); MONO % 5 % (0-9); NEUT # 5.7 x10^3uL (1.8-7.7); NEUT % 70 % (31-73); PLATELET COUNT 228 x10^3/uL (140-400); RED BLOOD COUNT 3.88 x10^6/uL (4.30-5.70); RED CELL DISTRIBUTION WIDTH 17.7 % (11.5-14.5); WHITE BLOOD COUNT 8.2 x10^3/uL (4.0-11.0)
--- NOTE | 2018-08-04 07:57 | PHYS DOC ---
Past Medical History Past Medical History: Diabetes-Type II, High Cholesterol, Hypertension, Renal Failure Past Surgical History: Other Additional Past Surgical Histo: AV SHUNT RUE, CVC R CHEST FOR DIALYSIS Alcohol Use: None Drug Use: None Adult General Chief Complaint Chief Complaint: SHORTNESS OF BREATH HPI HPI Patient is a 58 year old m biba from [place] dialysis. bg was readign high , vomiting since two am no chest pain no fever no abdo pain. did 40 min dialysis, they gave sq insulin, they gave clonidine for [id number] , then pt desatted to the high 70's reportedly, currently doing well on ra on arrival to er. pt states no pain just nauseous. OCC COUGH, NO FEVER. Review of Systems Review of Systems Constitutional: Denies fever or chills [] Eyes: Denies change in visual acuity, redness, or eye pain [] Respiratory:sob GI: Denies abdominal pain, diarrhea [] Integument: Denies rash or skin lesions [] Neurologic: Denies headache, focal weakness or sensory changes [] All other systems were reviewed and found to be within normal limits, except as documented in this note. Allergies Allergies Allergies Coded Allergies Type Severity Reaction Last Updated Verified atorvastatin Allergy Intermediate "I go blind" 12/03/17 Yes Physical Exam Physical Exam Constitutional: Well developed, well nourished, mild distress, non-toxic appearance. [] HENT: Normocephalic, atraumatic, bilateral external ears normal, oropharynx moist, no oral exudates, nose normal. [] Eyes: PERRLA, EOMI, conjunctiva normal, no discharge. [] Neck: Normal range of motion, no tenderness, supple, no stridor. [] Cardiovascular:Heart rate regular rhythm, no murmur [] Lungs & Thorax: decreased bibasilar breath sounds WORSE ON THE LEFT Abdomen: Bowel sounds normal, soft, no tenderness, no masses, no pulsatile masses. [] Skin: Warm, dry, no erythema, no rash. [] Back: No tenderness, no CVA tenderness. [] Extremities: No tenderness, no cyanosis, no clubbing, ROM intact. thrill present on right. edema notedSYMMETRIC Neurologic: Alert and oriented X 3, normal motor function, normal sensory function, no focal deficits noted. [] Psychologic: Affect normal, judgement normal, mood normal. [] Current Patient Data Vital Signs Vital Signs Date Time Temp Pulse Resp B/P (MAP) Pulse Ox O2 Delivery O2 Flow Rate FiO2 08/04/18 07:25 98.4 80 18 199/91 (127) 96 Room Air 98.4 Lab Values Laboratory Tests Test 08/04/18 07:35 White Blood Count 8.2 x10^3/uL (4.0-11.0) Red Blood Count 3.88 x10^6/uL (4.30-5.70) L Hemoglobin 11.2 g/dL (13.0-17.5) L Hematocrit 33.4 % (39.0-53.0) L Mean Corpuscular Volume 86 fL (79-100) Mean Corpuscular Hemoglobin 29 pg (25-35) Mean Corpuscular Hemoglobin Concent 33 g/dL (31-37) Red Cell Distribution Width 17.7 % (11.5-14.5) H Platelet Count 228 x10^3/uL (140-400) Neutrophils (%) (Auto) 70 % (31-73) Lymphocytes (%) (Auto) 18 % (24-48) L Monocytes (%) (Auto) 5 % (0-9) Eosinophils (%) (Auto) 5 % (0-3) H Basophils (%) (Auto) 2 % (0-3) Neutrophils # (Auto) 5.7 x10^3uL (1.8-7.7) Lymphocytes # (Auto) 1.5 x10^3/uL (1.0-4.8) Monocytes # (Auto) 0.4 x10^3/uL (0.0-1.1) Eosinophils # (Auto) 0.4 x10^3/uL (0.0-0.7) Basophils # (Auto) 0.2 x10^3/uL (0.0-0.2) Prothrombin Time 13.0 SEC (11.7-14.0) Prothrombin Time INR 1.0 (0.8-1.1) Sodium Level 130 mmol/L (136-145) L Potassium Level 3.7 mmol/L (3.5-5.1) Chloride Level 92 mmol/L (98-107) L Carbon Dioxide Level 26 mmol/L (21-32) Anion Gap 12 (6-14) Blood Urea Nitrogen 25 mg/dL (8-26) Creatinine 5.1 mg/dL (0.7-1.3) H Estimated GFR (Cockcroft-Gault) 11.8 BUN/Creatinine Ratio 5 (6-20) L Glucose Level 677 mg/dL (70-99) *H Calcium Level 8.7 mg/dL (8.5-10.1) Total Bilirubin 0.6 mg/dL (0.2-1.0) Aspartate Amino Transferase (AST) 11 U/L (15-37) L Alanine Aminotransferase (ALT) 10 U/L (16-63) L Alkaline Phosphatase 138 U/L (46-116) H Troponin I Quantitative 0.071 ng/mL (0.000-0.055) Total Protein 6.8 g/dL (6.4-8.2) Albumin 2.8 g/dL (3.4-5.0) L Albumin/Globulin Ratio 0.7 (1.0-1.7) L Laboratory Tests 08/04/18 07:35 Laboratory Tests 08/04/18 07:35 EKG EKG first ekg unable to assess due to artifact will repeat.[] Repeat EKG shows a normal sinus rhythm there is a right bundle-branch block pattern V3 is difficult to interpret but otherwise in light of that no obvious STEMI was seen Radiology/Procedures Radiology/Procedures [] Impressions: Chest x-rayIMPRESSION: 1. Findings of CHF or volume overload with interstitial edema and worsening medium left and stable small right pleural effusions. 2. Progression in bibasilar consolidation, may represent atelectasis, pneumonitis, pulmonary edema and/or multifocal infection. Electronically signed by: Brijesh Ireland MD (08/04/2018 8:07 AM) [id number] DICTATED and SIGNED BY: BRIJESH IRELAND MD DATE: 08/04/18 0805 Course & Med Decision Making Course & Med Decision Making Pertinent Labs and Imaging studies reviewed. (See chart for details) []esrd on hd, dm htn p/w high blood sugar, reported hypertension, hyperglycemia , etc FOUND TO HAVE tiny trop leak probably from esrd also hyperglycemia, insulin given. treated for possible pna based on cxr although i think fluid overlaod from dialysis is more likely. admit to [facility]. Shelia Disclaimer Dragbob Disclaimer This electronic medical record was generated, in whole or in part, using a voice recognition dictation system. Departure Departure Impression: Primary Impression: Fluid overload Admitting Physician: Be Lantigua Condition: STABLE Referrals: SOLO NUNO MD (PCP) DAWSON REDDY MD Aug 04, 2018 07:57
[2018-08-04 08:07] LABS: ALBUMIN 2.8 g/dL (3.4-5.0); ALBUMIN/GLOBULIN RATIO 0.7 (1.0-1.7); CALCIUM 8.7 mg/dL (8.5-10.1); CREATININE 5.1 mg/dL (0.7-1.3); GFR 11.8; POTASSIUM 3.7 mmol/L (3.5-5.1); TOTAL BILIRUBIN 0.6 mg/dL (0.2-1.0); TOTAL PROTEIN 6.8 g/dL (6.4-8.2)
--- NOTE | 2018-08-04 08:10 | RAD ---
Single view chest 08/04/2018 Clinical indication: Shortness of breath. COMPARISON: Chest 06/21/2018 FINDINGS: Worsening of medium left pleural effusion. Stable small right pleural effusion. Increase in patchy bibasilar consolidation. Mild cardiomegaly with stable pulmonary venous congestion. IMPRESSION: 1. Findings of CHF or volume overload with interstitial edema and worsening medium left and stable small right pleural effusions. 2. Progression in bibasilar consolidation, may represent atelectasis, pneumonitis, pulmonary edema and/or multifocal infection. Electronically signed by: Kunal Ireland MD (08/04/2018 8:07 AM) [id number]
--- NOTE | 2018-08-04 08:24 | EKG ---
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
[2018-08-04] MEDS ORDERED: POTASSIUM CITRATE 10 MEQ TABLET.ER PO STA (08:43)
[2018-08-04] MEDS ORDERED: NITROGLYCERIN OINT 1 GM PACKET. TP ONE (08:45)
[2018-08-04] MEDS ORDERED: levOFLOXacin PER PHARMACY. MC PRN (08:45)
[2018-08-04] MEDS ORDERED: ASPIRIN CHEWABLE 81 MG TABLET. PO ONE (08:45)
[2018-08-04] MEDS ORDERED: INSULIN REGULAR 100 UNIT/ML 3ML VIAL. IV ONE (08:45)
--- NOTE | 2018-08-04 08:55 | EKG ---
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
[2018-08-04 10:57] VITALS: BP 154/81
--- NOTE | 2018-08-04 11:09 | PDOC1 ---
History and Physical Date of Admission Date of Admission DATE: 08/04/18 TIME: 11:09 Identification/Chief Complaint Chief Complaint seen in er, 58 year old male from [facility]. bg high, vomiting since two am \\ no chest pain no fever no abd pain. did 40 min dialysis, they gave sq insulin, they gave clonidine for severe hypertension, then pt desat to the high 70's reportedly, cxr c/w chf/ infiltrate, nephrology consulted cardiology consulted, echo , glucose over 600 Past Medical History Past Medical History Past Medical History Past Medical History: Diabetes-Type II, High Cholesterol, Hypertension, Renal Failure Past Surgical History: Other Additional Past Surgical Histo: AV SHUNT RUE, CVC R CHEST FOR DIALYSIS Alcohol Use: None Drug Use: None no tobacco use family hx htn Cardiovascular: HTN, Hyperlipidemia Pulmonary: Other GI: GERD Heme/Onc: Anemia NOS Hepatobiliary: No pertinent hx Psych: No pertinent hx Musculoskeletal: Osteoarthritis Rheumatologic: No pertinent hx Infectious disease: No pertinent hx Renal/: Chronic renal failure Endocrine: Diabetes, Hypothyroidism, Hyperparathyroidism Past Surgical History Past Surgical History: Other Family History Family History: Diabetes, Hypertension Social History Smoke: No ALCOHOL: none Drugs: None Current Problem List Problem List Problems Medical Problems: (1) Fluid overload Status: Acute Current Medications Current Medications Current Medications Levofloxacin/ Dextrose (Levaquin Per Pharmacy) 1 each PRN DAILY PRN MC SEE COMMENTS; Start 08/04/18 at 08:45 Nitroglycerin (Nitro-Bid Oint) 1 inch 1X ONCE TP Last administered on at 09:11; Start 08/04/18 at 08:45; Stop 08/04/18 at 08:47; Status DC Potassium Citrate (Urocit-K) 40 meq 1X STAT PO Last administered on 08/04/18at 09:13; Start 08/04/18 at 08:43; Stop 08/04/18 at 08:47; Status DC Insulin Human Regular (HumuLIN R VIAL) 10 unit 1X ONCE IV Last administered on 08/04/18at 09:18; Start 08/04/18 at 08:45; Stop 08/04/18 at 08:47; Status DC Aspirin (Children'S Aspirin) 324 mg 1X ONCE PO ; Start 08/04/18 at 08:45; Stop 08/04/18 at 08:47; Status DC Levofloxacin/ Dextrose 150 ml @ 100 mls/hr 1X ONCE IV Last administered on at 09:06; Start 08/04/18 at 09:00; Stop 08/04/18 at 10:29; Status DC Levofloxacin/ Dextrose 100 ml @ 100 mls/hr Q48H IV ; Start 08/06/18 at 09:00 Active Scripts Active Lantus Solostar (Insulin Glargine,Hum.rec.anlog) 100 Unit/1 Ml Insuln.pen 30 Units SQ QHS 30 Days Amlodipine Besylate 10 Mg Tablet 10 Mg PO DAILY 30 Days Humalog (Insulin Lispro) 100 Unit/1 Ml Insuln.pen 11 Units SQ TIDAC 30 Days Vitamin D2 (Ergocalciferol (Vitamin D2)) 50,000 Unit Capsule 50,000 Unit PO WEEKLY Synthroid (Levothyroxine Sodium) 137 Mcg Tablet 137 Mcg PO DAILY07 30 Days Aspirin 325 Mg Tablet 325 Mg PO DAILYWBKFT 60 Days Feosol (Ferrous Sulfate) 325 Mg Tablet 325 Mg PO TID 30 Days Reported Dialyvite Tablet (Folic Acid/Vitamin B Comp W-C) 1 Each Tablet 1 Each PO Allergies Allergies: Coded Allergies: atorvastatin (Verified Allergy, Intermediate, "I go blind", 12/03/17) ROS Review of System Review of Systems Review of Systems Constitutional: Denies fever or chills [] Eyes: Denies change in visual acuity, redness, or eye pain [] Respiratory:sob GI: Denies abdominal pain, diarrhea emesis last night [] Integument: Denies rash or skin lesions [] Neurologic: Denies headache, focal weakness or sensory changes [] 14 pt systems were reviewed and found to be within normal limits, except as documented . General: YES: Fatigue Hematological and Lymphatic: No: Bleeding Problems, Blood Clots, Blood Transfusions, Brusing, Night Sweats, Pallor, Swollen Lymph Nodes, Other Gastrointestinal: Yes Nausea, Yes Vomiting Physical Exam Physical Exam Physical Exam Physical Exam Constitutional: Well developed, well nourished, mild distress, non-toxic appearance. [] HENT: Normocephalic, atraumatic, bilateral external ears normal, oropharynx moist, no oral exudates, nose normal. [] Eyes: PERRLA, EOMI, conjunctiva normal, no discharge. [] Neck: Normal range of motion, no tenderness, supple, no stridor. [] Cardiovascular:Heart rate regular rhythm, no murmur [] Lungs & Thorax: decreased bibasilar breath sounds WORSE ON THE LEFT Abdomen: Bowel sounds normal, soft, no tenderness, no masses, no pulsatile masses. [] Skin: Warm, dry, no erythema, no rash. [] Back: No tenderness, no CVA tenderness. [] Extremities: No tenderness, no cyanosis, no clubbing, ROM intact. thrill present on right. edema notedSYMMETRIC Neurologic: Alert and oriented X 3, normal motor function, normal sensory function, no focal deficits noted. [] Psychologic: Affect normal, judgement normal, mood normal. [] General: Alert, Oriented X3, Cooperative Breasts: Not examined Abdomen: Soft Rectal Exam: not examined Extremities: No cyanosis, Other (2 plus ankle edema) Neuro: Normal speech, Cranial nerves 3-12 NL Vitals Vitals Vital Signs Date Time Temp Pulse Resp B/P (MAP) Pulse Ox O2 Delivery O2 Flow Rate FiO2 08/04/18 10:57 97.4 18 154/81 (105) 96 Room Air 97.4 08/04/18 09:13 74 Labs Labs Laboratory Tests Test 08/04/18 07:35 White Blood Count 8.2 x10^3/uL (4.0-11.0) Red Blood Count 3.88 x10^6/uL (4.30-5.70) Hemoglobin 11.2 g/dL (13.0-17.5) Hematocrit 33.4 % (39.0-53.0) Mean Corpuscular Volume 86 fL (79-100) Mean Corpuscular Hemoglobin 29 pg (25-35) Mean Corpuscular Hemoglobin Concent 33 g/dL (31-37) Red Cell Distribution Width 17.7 % (11.5-14.5) Platelet Count 228 x10^3/uL (140-400) Neutrophils (%) (Auto) 70 % (31-73) Lymphocytes (%) (Auto) 18 % (24-48) Monocytes (%) (Auto) 5 % (0-9) Eosinophils (%) (Auto) 5 % (0-3) Basophils (%) (Auto) 2 % (0-3) Neutrophils # (Auto) 5.7 x10^3uL (1.8-7.7) Lymphocytes # (Auto) 1.5 x10^3/uL (1.0-4.8) Monocytes # (Auto) 0.4 x10^3/uL (0.0-1.1) Eosinophils # (Auto) 0.4 x10^3/uL (0.0-0.7) Basophils # (Auto) 0.2 x10^3/uL (0.0-0.2) Prothrombin Time 13.0 SEC (11.7-14.0) Prothromb Time International Ratio 1.0 (0.8-1.1) Sodium Level 130 mmol/L (136-145) Potassium Level 3.7 mmol/L (3.5-5.1) Chloride Level 92 mmol/L (98-107) Carbon Dioxide Level 26 mmol/L (21-32) Anion Gap 12 (6-14) Blood Urea Nitrogen 25 mg/dL (8-26) Creatinine 5.1 mg/dL (0.7-1.3) Estimated GFR (Cockcroft-Gault) 11.8 BUN/Creatinine Ratio 5 (6-20) Glucose Level 677 mg/dL (70-99) Lactic Acid Level 2.1 mmol/L (0.4-2.0) Calcium Level 8.7 mg/dL (8.5-10.1) Total Bilirubin 0.6 mg/dL (0.2-1.0) Aspartate Amino Transf (AST/SGOT) 11 U/L (15-37) Alanine Aminotransferase (ALT/SGPT) 10 U/L (16-63) Alkaline Phosphatase 138 U/L (46-116) Troponin I Quantitative 0.071 ng/mL (0.000-0.055) VF-Tqm-K-Type Natriuretic Peptide > 44989 pg/mL (0-124) Total Protein 6.8 g/dL (6.4-8.2) Albumin 2.8 g/dL (3.4-5.0) Albumin/Globulin Ratio 0.7 (1.0-1.7) Laboratory Tests Test 08/04/18 07:35 White Blood Count 8.2 x10^3/uL (4.0-11.0) Red Blood Count 3.88 x10^6/uL (4.30-5.70) Hemoglobin 11.2 g/dL (13.0-17.5) Hematocrit 33.4 % (39.0-53.0) Mean Corpuscular Volume 86 fL (79-100) Mean Corpuscular Hemoglobin 29 pg (25-35) Mean Corpuscular Hemoglobin Concent 33 g/dL (31-37) Red Cell Distribution Width 17.7 % (11.5-14.5) Platelet Count 228 x10^3/uL (140-400) Neutrophils (%) (Auto) 70 % (31-73) Lymphocytes (%) (Auto) 18 % (24-48) Monocytes (%) (Auto) 5 % (0-9) Eosinophils (%) (Auto) 5 % (0-3) Basophils (%) (Auto) 2 % (0-3) Neutrophils # (Auto) 5.7 x10^3uL (1.8-7.7) Lymphocytes # (Auto) 1.5 x10^3/uL (1.0-4.8) Monocytes # (Auto) 0.4 x10^3/uL (0.0-1.1) Eosinophils # (Auto) 0.4 x10^3/uL (0.0-0.7) Basophils # (Auto) 0.2 x10^3/uL (0.0-0.2) Prothrombin Time 13.0 SEC (11.7-14.0) Prothromb Time International Ratio 1.0 (0.8-1.1) Sodium Level 130 mmol/L (136-145) Potassium Level 3.7 mmol/L (3.5-5.1) Chloride Level 92 mmol/L (98-107) Carbon Dioxide Level 26 mmol/L (21-32) Anion Gap 12 (6-14) Blood Urea Nitrogen 25 mg/dL (8-26) Creatinine 5.1 mg/dL (0.7-1.3) Estimated GFR (Cockcroft-Gault) 11.8 BUN/Creatinine Ratio 5 (6-20) Glucose Level 677 mg/dL (70-99) Lactic Acid Level 2.1 mmol/L (0.4-2.0) Calcium Level 8.7 mg/dL (8.5-10.1) Total Bilirubin 0.6 mg/dL (0.2-1.0) Aspartate Amino Transf (AST/SGOT) 11 U/L (15-37) Alanine Aminotransferase (ALT/SGPT) 10 U/L (16-63) Alkaline Phosphatase 138 U/L (46-116) Troponin I Quantitative 0.071 ng/mL (0.000-0.055) WQ-Bmr-A-Type Natriuretic Peptide > 48074 pg/mL (0-124) Total Protein 6.8 g/dL (6.4-8.2) Albumin 2.8 g/dL (3.4-5.0) Albumin/Globulin Ratio 0.7 (1.0-1.7) Images Images REASON: sob PROCEDURE: PORTABLE CHEST 1V Single view chest 08/04/2018 Clinical indication: Shortness of breath. COMPARISON: Chest 06/21/2018 FINDINGS: Worsening of medium left pleural effusion. Stable small right pleural effusion. Increase in patchy bibasilar consolidation. Mild cardiomegaly with stable pulmonary venous congestion. IMPRESSION: 1. Findings of CHF or volume overload with interstitial edema and worsening medium left and stable small right pleural effusions. 2. Progression in bibasilar consolidation, may represent atelectasis, pneumonitis, pulmonary edema and/or multifocal infection. Electronically signed by: Kunal Ireland MD (08/04/2018 8:07 AM) [id number] VTE Prophylaxis Ordered VTE Prophylaxis Devices: No VTE Pharmacological Prophylaxi: Yes Assessment/Plan Assessment/Plan Impression: Fluid overload esrd on dialysis elevated troponin i acute diastolic chf hyperlipidemia nonketotic hyperglycemia hypertensive urgency bibasilar consolidation, may represent atelectasis, pneumonitis, pulmonary edema and/or multifocal infection. plan dosed iv levaquin x 1 in er nephrology consult cardiology consult cvc tele serial troponin i echo sq heparin dvt prophylaxis ss insulin iv bp control id consult PABLO SHERMAN MD Aug 04, 2018 11:09
[2018-08-04] MEDS ORDERED: BISACODYL 10 MG SUPP.RECT. PR PRN (11:15)
[2018-08-04] MEDS ORDERED: oxyCODONE IR 5 MG TABLET PO PRN (11:15)
[2018-08-04] MEDS ORDERED: HYDROcodone/APAP 5/325MG 1 TAB TABLET PO PRN (11:15)
[2018-08-04] MEDS ORDERED: ONDANSETRON PF 4 MG/2 ML VIAL. IV PRN (11:15)
[2018-08-04] MEDS ORDERED: 0.9 % SODIUM CHLORIDE 10 ML DISP.SYRIN. IV PRN (11:15)
[2018-08-04] MEDS ORDERED: PROCHLORPERAZINE 25 MG SUPP.RECT. PR PRN (11:15)
[2018-08-04] MEDS ORDERED: CEFEPIME HCL 1 GM in IV DEXTROSE 5% 50 ML IV SCH (11:45)
[2018-08-04] MEDS ORDERED: CEFEPIME HCL IV Push 1 GM VIAL. IVP SCH (12:00)
[2018-08-04 12:19] LABS: D-DIMER 2.31 ug/mlFEU (0.00-0.50)
[2018-08-04] MEDS: FERROUS SULFATE 325 MG TABLET. PO SCH ×2 (12:31→17:00)
[2018-08-04] MEDS: FOLIC/VIT B COMP W-C (RENAL) TABLET. PO SCH (12:31)
[2018-08-04] MEDS: amLODIPine BESYLATE 10 MG TABLET PO SCH (12:32)
[2018-08-04] MEDS: INSULIN LISPRO 300 UNITS/3 ML INSULN.PEN. SQ SCH ×2 (12:47→16:30)
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
[2018-08-04] MEDS ORDERED: CEFEPIME HCL 2 GM in IV DEXTROSE 5% 100ML 100 ML IV SCH (14:00)
[2018-08-04] MEDS: NORMAL SALINE IVP SCH (14:09)
[2018-08-04] MEDS: LEVOTHYROXINE SODIUM IVP SCH (14:09)
[2018-08-04 15:00] VITALS: BP 130/80
[2018-08-04] MEDS: VANCOMYCIN PER PHARMACY MC PRN (15:18)
[2018-08-04] MEDS ORDERED: VANCOMYCIN 2 GM in IV NORMAL SALINE 500ML BAG 500 ML IV ONE (15:30)
--- NOTE | 2018-08-04 16:03 | PDOC2 ---
CONSULT Date of Consult Date of Consult DATE: 08/04/18 TIME: 15:51 Reason for Consult Reason for Consult: ESRD Identification/Chief Complaint Chief Complaint BP went up to 200's in Dialysis Unit this am Source Source: Chart review, Patient History of Present Illness Reason for Visit: Pt is 58 year old CM ESRD on HD at [facility]. He states he was in the unit this am and was found to have very huigh BP -in 200's. Normally he doesn't have this high BP His BS were high and was vomiting since two am .Denies chest pain no fever no abd pain. He did only 40 min dialysis, recd sq insulin,and gave clonidine for severe hypertension, he desated to the high 70's reportedly(as per Hx obtained from ER and Primary's note) On admission glucose >600 Pt currently sleeping comfortably on his side. No acute complaints at this time. Reports has been on HD only for past 3-4 months. has Good UOP. Denies any NSAID's Past Medical History Cardiovascular: HTN, Hyperlipidemia Pulmonary: Other GI: GERD Heme/Onc: Anemia NOS Hepatobiliary: No pertinent hx Psych: No pertinent hx Musculoskeletal: Osteoarthritis Rheumatologic: No pertinent hx Infectious disease: No pertinent hx Renal/: Chronic renal failure Endocrine: Diabetes, Hypothyroidism, Hyperparathyroidism Past Surgical History Past Surgical History: Other Family History Family History: Diabetes, Hypertension Social History No ALCOHOL: none Drugs: None Lives: with Family Current Problem List Problem List Problems Medical Problems: (1) Fluid overload Status: Acute Current Medications Current Medications Current Medications Levofloxacin/ Dextrose (Levaquin Per Pharmacy) 1 each PRN DAILY PRN MC SEE COMMENTS; Start 08/04/18 at 08:45 Nitroglycerin (Nitro-Bid Oint) 1 inch 1X ONCE TP Last administered on at 09:11; Start 08/04/18 at 08:45; Stop 08/04/18 at 08:47; Status DC Potassium Citrate (Urocit-K) 40 meq 1X STAT PO Last administered on 08/04/18at 09:13; Start 08/04/18 at 08:43; Stop 08/04/18 at 08:47; Status DC Insulin Human Regular (HumuLIN R VIAL) 10 unit 1X ONCE IV Last administered on 08/04/18at 09:18; Start 08/04/18 at 08:45; Stop 08/04/18 at 08:47; Status DC Aspirin (Children'S Aspirin) 324 mg 1X ONCE PO ; Start 08/04/18 at 08:45; Stop 08/04/18 at 08:47; Status DC Levofloxacin/ Dextrose 150 ml @ 100 mls/hr 1X ONCE IV Last administered on at 09:06; Start 08/04/18 at 09:00; Stop 08/04/18 at 10:29; Status DC Levofloxacin/ Dextrose 100 ml @ 100 mls/hr Q48H IV ; Start 08/06/18 at 09:00 Sodium Chloride (Normal Saline Flush) 3 ml PRN DAILY PRN IV AFTER MEDS AND BLOOD DRAWS; Start 08/04/18 at 11:15 Ondansetron HCl (Zofran) 4 mg PRN Q6HRS PRN IV NAUSEA/VOMITING; Start 08/04/18 at 11:15 Prochlorperazine (Compazine) 25 mg PRN Q12HR PRN ME NAUSEA/VOMITING; Start 08/04/18 at 11:15 Acetaminophen/ Hydrocodone Bitart (Lortab 5/325) 1 tab PRN Q4HRS PRN PO MILD PAIN; Start 08/04/18 at 11:15 Oxycodone HCl (Roxicodone) 5 mg PRN Q4HRS PRN PO MODERATE PAIN; Start 08/04/18 at 11:15 Docusate Sodium (Colace) 100 mg BID PO ; Start 08/04/18 at 21:00 Bisacodyl (Dulcolax Supp) 10 mg PRN DAILY PRN ME CONSTIPATION; Start 08/04/18 at 11:15 Heparin Sodium (Porcine) (Heparin Sodium) 5,000 unit Q12HR SQ ; Start 08/04/18 at 21:00 Amlodipine Besylate (Norvasc) 10 mg DAILY PO Last administered on 08/04/18at 12: 32; Start 08/04/18 at 12:00 Aspirin (Faisal Aspirin) 325 mg DAILYWBKFT PO ; Start 08/05/18 at 08:00 Ergocalciferol (Vitamin D2) 50,000 unit WEEKLY PO ; Start 08/11/18 at 09:00 Ferrous Sulfate (Feosol) 325 mg TIDWMEALS PO Last administered on 08/04/18at 12: 31; Start 08/04/18 at 12:00 Insulin Glargine (Lantus) 30 units QHS SQ ; Start 08/04/18 at 21:00 Insulin Human Lispro (HumaLOG) 11 units TIDAC SQ Last administered on at 12:47; Start 08/04/18 at 11:30 Vitamin B Complex/ Vitamin C (Madai-Sean) 1 tab DAILY PO Last administered on at 12:31; Start 08/04/18 at 12:00 Cefepime HCl 2 gm/ Dextrose 100 ml @ 200 mls/hr Q8HRS IV ; Start 08/04/18 at 14 :00; Status UNV Cefepime HCl 1 gm/ Dextrose 50 ml @ 100 mls/hr 1X PRN IV ; Start 08/04/18 at 11:45; Status UNV Cefepime HCl (Maxipime) 1 gm Q24H IVP Last administered on 08/04/18at 14:09; Start 08/04/18 at 12:00 Levothyroxine Sodium 100 mcg/ Sodium Chloride 5 ml @ 100 mls/hr DAILY IVP Last administered on 08/04/18at 14:09; Start 08/04/18 at 14:00 Vancomycin HCl (Vanco Per Pharmacy) 1 each PRN DAILY PRN MC SEE COMMENTS Last administered on 08/04/18at 15:18; Start 08/04/18 at 15:00 Vancomycin HCl 2 gm/Sodium Chloride 500 ml @ 250 mls/hr ONCE ONCE IV Last administered on 08/04/18at 15:12; Start 08/04/18 at 15:30; Stop 08/04/18 at 17:29 Vancomycin HCl (Vancomycin Random Level) 1 each 1X ONCE MC ; Start 08/06/18 at 06:00; Stop 08/06/18 at 06:01 Active Scripts Active Lantus Solostar (Insulin Glargine,Hum.rec.anlog) 100 Unit/1 Ml Insuln.pen 30 Units SQ QHS 30 Days Amlodipine Besylate 10 Mg Tablet 10 Mg PO DAILY 30 Days Humalog (Insulin Lispro) 100 Unit/1 Ml Insuln.pen 11 Units SQ TIDAC 30 Days Vitamin D2 (Ergocalciferol (Vitamin D2)) 50,000 Unit Capsule 50,000 Unit PO WEEKLY Synthroid (Levothyroxine Sodium) 137 Mcg Tablet 137 Mcg PO DAILY07 30 Days Aspirin 325 Mg Tablet 325 Mg PO DAILYWBKFT 60 Days Feosol (Ferrous Sulfate) 325 Mg Tablet 325 Mg PO TID 30 Days Reported Dialyvite Tablet (Folic Acid/Vitamin B Comp W-C) 1 Each Tablet 1 Each PO Allergies Allergies: Coded Allergies: atorvastatin (Verified Allergy, Intermediate, "I go blind", 12/03/17) ROS Review of System As per HPI Physical Exam Physical Exam GEN: NAD HEEN: Om moist, No o2 NECK: supple CVS: Few rales, Coarse , No use of Acc. Muscle Use GI: BS + ve, Non Tender, Non Distended : No CVA tenderness, [nO Suprapubic Tenderness, No Meyers Skin- No rash Neuro AxO x 3 Vital Signs Vital Signs Date Time Temp Pulse Resp B/P (MAP) Pulse Ox O2 Delivery O2 Flow Rate FiO2 08/04/18 15:00 97.4 76 130/80 (97) 96 Room Air 97.4 08/04/18 10:57 18 Assessment & Plan ESRD- On HD- MWF at [facility]- Dr. 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 Labs Laboratory Tests Test 08/04/18 07:35 08/04/18 11:06 08/04/18 11:50 08/04/18 14:45 White Blood Count 8.2 x10^3/uL (4.0-11.0) Red Blood Count 3.88 x10^6/uL (4.30-5.70) Hemoglobin 11.2 g/dL (13.0-17.5) Hematocrit 33.4 % (39.0-53.0) Mean Corpuscular Volume 86 fL (79-100) Mean Corpuscular Hemoglobin 29 pg (25-35) Mean Corpuscular Hemoglobin Concent 33 g/dL (31-37) Red Cell Distribution Width 17.7 % (11.5-14.5) Platelet Count 228 x10^3/uL (140-400) Neutrophils (%) (Auto) 70 % (31-73) Lymphocytes (%) (Auto) 18 % (24-48) Monocytes (%) (Auto) 5 % (0-9) Eosinophils (%) (Auto) 5 % (0-3) Basophils (%) (Auto) 2 % (0-3) Neutrophils # (Auto) 5.7 x10^3uL (1.8-7.7) Lymphocytes # (Auto) 1.5 x10^3/uL (1.0-4.8) Monocytes # (Auto) 0.4 x10^3/uL (0.0-1.1) Eosinophils # (Auto) 0.4 x10^3/uL (0.0-0.7) Basophils # (Auto) 0.2 x10^3/uL (0.0-0.2) Prothrombin Time 13.0 SEC (11.7-14.0) Prothromb Time International Ratio 1.0 (0.8-1.1) Sodium Level 130 mmol/L (136-145) Potassium Level 3.7 mmol/L (3.5-5.1) Chloride Level 92 mmol/L (98-107) Carbon Dioxide Level 26 mmol/L (21-32) Anion Gap 12 (6-14) Blood Urea Nitrogen 25 mg/dL (8-26) Creatinine 5.1 mg/dL (0.7-1.3) Estimated GFR (Cockcroft-Gault) 11.8 BUN/Creatinine Ratio 5 (6-20) Glucose Level 677 mg/dL (70-99) Lactic Acid Level 2.1 mmol/L (0.4-2.0) Calcium Level 8.7 mg/dL (8.5-10.1) Total Bilirubin 0.6 mg/dL (0.2-1.0) Aspartate Amino Transf (AST/SGOT) 11 U/L (15-37) Alanine Aminotransferase (ALT/SGPT) 10 U/L (16-63) Alkaline Phosphatase 138 U/L (46-116) Troponin I Quantitative 0.071 ng/mL (0.000-0.055) 0.127 ng/mL (0.000-0.055) 0.182 ng/mL (0.000-0.055) KV-Fmz-N-Type Natriuretic Peptide > 83043 pg/mL (0-124) Total Protein 6.8 g/dL (6.4-8.2) Albumin 2.8 g/dL (3.4-5.0) Albumin/Globulin Ratio 0.7 (1.0-1.7) Thyroid Stimulating Hormone (TSH) 357.994 uIU/mL (0.358-3.74) Glucose (Fingerstick) 372 mg/dL (70-99) Fibrinogen 355 mg/dL (200-440) D-Dimer (Zena) 2.31 ug/mlFEU (0.00-0.50) Procalcitonin 0.87 ng/mL (0.00-0.10) Laboratory Tests Test 08/04/18 07:35 08/04/18 11:06 08/04/18 11:50 08/04/18 14:45 White Blood Count 8.2 x10^3/uL (4.0-11.0) Red Blood Count 3.88 x10^6/uL (4.30-5.70) Hemoglobin 11.2 g/dL (13.0-17.5) Hematocrit 33.4 % (39.0-53.0) Mean Corpuscular Volume 86 fL (79-100) Mean Corpuscular Hemoglobin 29 pg (25-35) Mean Corpuscular Hemoglobin Concent 33 g/dL (31-37) Red Cell Distribution Width 17.7 % (11.5-14.5) Platelet Count 228 x10^3/uL (140-400) Neutrophils (%) (Auto) 70 % (31-73) Lymphocytes (%) (Auto) 18 % (24-48) Monocytes (%) (Auto) 5 % (0-9) Eosinophils (%) (Auto) 5 % (0-3) Basophils (%) (Auto) 2 % (0-3) Neutrophils # (Auto) 5.7 x10^3uL (1.8-7.7) Lymphocytes # (Auto) 1.5 x10^3/uL (1.0-4.8) Monocytes # (Auto) 0.4 x10^3/uL (0.0-1.1) Eosinophils # (Auto) 0.4 x10^3/uL (0.0-0.7) Basophils # (Auto) 0.2 x10^3/uL (0.0-0.2) Prothrombin Time 13.0 SEC (11.7-14.0) Prothromb Time International Ratio 1.0 (0.8-1.1) Sodium Level 130 mmol/L (136-145) Potassium Level 3.7 mmol/L (3.5-5.1) Chloride Level 92 mmol/L (98-107) Carbon Dioxide Level 26 mmol/L (21-32) Anion Gap 12 (6-14) Blood Urea Nitrogen 25 mg/dL (8-26) Creatinine 5.1 mg/dL (0.7-1.3) Estimated GFR (Cockcroft-Gault) 11.8 BUN/Creatinine Ratio 5 (6-20) Glucose Level 677 mg/dL (70-99) Lactic Acid Level 2.1 mmol/L (0.4-2.0) Calcium Level 8.7 mg/dL (8.5-10.1) Total Bilirubin 0.6 mg/dL (0.2-1.0) Aspartate Amino Transf (AST/SGOT) 11 U/L (15-37) Alanine Aminotransferase (ALT/SGPT) 10 U/L (16-63) Alkaline Phosphatase 138 U/L (46-116) Troponin I Quantitative 0.071 ng/mL (0.000-0.055) 0.127 ng/mL (0.000-0.055) 0.182 ng/mL (0.000-0.055) BO-Fle-T-Type Natriuretic Peptide > 78591 pg/mL (0-124) Total Protein 6.8 g/dL (6.4-8.2) Albumin 2.8 g/dL (3.4-5.0) Albumin/Globulin Ratio 0.7 (1.0-1.7) Thyroid Stimulating Hormone (TSH) 357.994 uIU/mL (0.358-3.74) Glucose (Fingerstick) 372 mg/dL (70-99) Fibrinogen 355 mg/dL (200-440) D-Dimer (Zena) 2.31 ug/mlFEU (0.00-0.50) Procalcitonin 0.87 ng/mL (0.00-0.10) Review All relevant outside records, renal labs, imaging studies, telemetry/EKG's were reviewed. REBECCA ANGLIN MD Aug 04, 2018 16:03
[2018-08-04 19:00] VITALS: BP 137/68
[2018-08-04] MEDS ORDERED: INSULIN GLARGINE 300 UNITS/3 ML INSULN.PEN. SQ SCH (21:00)
[2018-08-04] MEDS: DOCUSATE SODIUM 100 MG CAPSULE. PO SCH (21:06)
[2018-08-04] MEDS: HEPARIN for SUB-Q USE 5,000 UNIT/ML VIAL. SQ SCH (21:09)
[2018-08-04 22:32] VITALS: BP 139/67
[2018-08-04 22:56] LABS: BILIRUBIN,URINE NEGATIVE (NEG); CLARITY,URINE CLEAR; COLOR,URINE YELLOW; NITRITE,URINE NEGATIVE (NEG); PROTEIN,URINE >=300 mg/dL (NEG-TRACE); UROBILINOGEN,URINE 0.2 mg/dL (0.2 mg/dL)
[2018-08-04 23:04] LABS: BACTERIA,URINE 0 /HPF (0-FEW); RBC,URINE >40 /HPF (0-2); WBC,URINE 0 /HPF (0-4)
[2018-08-05 03:02] VITALS: BP 178/88
[2018-08-05 05:47] LABS: BASO # 0.2 x10^3/uL (0.0-0.2); BASO % 2 % (0-3); EOS % 11 % (0-3); HEMATOCRIT 37.1 % (39.0-53.0); HEMOGLOBIN 12.5 g/dL (13.0-17.5); LYMPH # 1.5 x10^3/uL (1.0-4.8); LYMPH % 16 % (24-48); MEAN CORPUSCULAR HEMOGLOBIN 28 pg (25-35); MEAN CORPUSCULAR HGB CONC 34 g/dL (31-37); MEAN CORPUSCULAR VOLUME 84 fL (79-100); MONO # 0.5 x10^3/uL (0.0-1.1); MONO % 6 % (0-9); NEUT # 6.2 x10^3uL (1.8-7.7); NEUT % 66 % (31-73); PLATELET COUNT 268 x10^3/uL (140-400); RED BLOOD COUNT 4.41 x10^6/uL (4.30-5.70); RED CELL DISTRIBUTION WIDTH 18.4 % (11.5-14.5); WHITE BLOOD COUNT 9.5 x10^3/uL (4.0-11.0)
[2018-08-05 07:18] VITALS: BP 137/89
[2018-08-05 07:46] LABS: ALBUMIN 2.7 g/dL (3.4-5.0); ALBUMIN/GLOBULIN RATIO 0.6 (1.0-1.7); CALCIUM 8.7 mg/dL (8.5-10.1); CREATININE 5.7 mg/dL (0.7-1.3); GFR 10.4; MAGNESIUM 1.9 mg/dL (1.8-2.4); PHOSPHORUS 3.1 mg/dL (2.6-4.7); POTASSIUM 4.1 mmol/L (3.5-5.1); TOTAL BILIRUBIN 0.6 mg/dL (0.2-1.0); TOTAL PROTEIN 6.9 g/dL (6.4-8.2)
[2018-08-05] MEDS ORDERED: ASPIRIN 325 MG TABLET PO SCH (08:00)
[2018-08-05] MEDS ORDERED: IV NORMAL SALINE 1000ML BAG 1,000 ML IV PRN (08:30)
[2018-08-05] MEDS: INSULIN LISPRO 300 UNITS/3 ML INSULN.PEN. SQ SCH (08:34)
[2018-08-05] MEDS ORDERED: DIALYSIS PATIENT. MC PRN ×2 (09:30)
[2018-08-05] MEDS ORDERED: VANCOMYCIN 500 MG in IV NORMAL SALINE 100ML 100 ML IV ONE (10:45)
[2018-08-05] MEDS: VANCOMYCIN PER PHARMACY MC PRN (10:49)
--- NOTE | 2018-08-05 10:51 | PDOC ---
Infectious Disease Note Vital Sign Vital Signs Vital Signs Date Time Temp Pulse Resp B/P (MAP) Pulse Ox O2 Delivery O2 Flow Rate FiO2 08/05/18 07:18 98.1 79 18 137/89 (105) 96 Room Air 98.1 Labs Lab Laboratory Tests Test 08/04/18 11:06 08/04/18 11:50 08/04/18 14:45 08/04/18 17:02 Glucose (Fingerstick) 372 mg/dL (70-99) 47 mg/dL (70-99) Fibrinogen 355 mg/dL (200-440) D-Dimer (Zena) 2.31 ug/mlFEU (0.00-0.50) Troponin I Quantitative 0.127 ng/mL (0.000-0.055) 0.182 ng/mL (0.000-0.055) Procalcitonin 0.87 ng/mL (0.00-0.10) Test 08/04/18 20:22 08/04/18 22:50 08/05/18 04:50 08/05/18 07:09 Glucose (Fingerstick) 85 mg/dL (70-99) 250 mg/dL (70-99) Urine Collection Type Unknown Urine Color Yellow Urine Clarity Clear Urine pH 7.0 Urine Specific [place] 1.025 Urine Protein >=300 mg/dL (NEG-TRACE) Urine Glucose (UA) >=1000 mg/dL (NEG) Urine Ketones (Stick) Negative mg/dL (NEG) Urine Blood Large (NEG) Urine Nitrite Negative (NEG) Urine Bilirubin Negative (NEG) Urine Urobilinogen Dipstick 0.2 mg/dL (0.2 mg/dL) Urine Leukocyte Esterase Negative (NEG) Urine RBC >40 /HPF (0-2) Urine WBC 0 /HPF (0-4) Urine Bacteria 0 /HPF (0-FEW) White Blood Count 9.5 x10^3/uL (4.0-11.0) Red Blood Count 4.41 x10^6/uL (4.30-5.70) Hemoglobin 12.5 g/dL (13.0-17.5) Hematocrit 37.1 % (39.0-53.0) Mean Corpuscular Volume 84 fL (79-100) Mean Corpuscular Hemoglobin 28 pg (25-35) Mean Corpuscular Hemoglobin Concent 34 g/dL (31-37) Red Cell Distribution Width 18.4 % (11.5-14.5) Platelet Count 268 x10^3/uL (140-400) Neutrophils (%) (Auto) 66 % (31-73) Lymphocytes (%) (Auto) 16 % (24-48) Monocytes (%) (Auto) 6 % (0-9) Eosinophils (%) (Auto) 11 % (0-3) Basophils (%) (Auto) 2 % (0-3) Neutrophils # (Auto) 6.2 x10^3uL (1.8-7.7) Lymphocytes # (Auto) 1.5 x10^3/uL (1.0-4.8) Monocytes # (Auto) 0.5 x10^3/uL (0.0-1.1) Eosinophils # (Auto) 1.0 x10^3/uL (0.0-0.7) Basophils # (Auto) 0.2 x10^3/uL (0.0-0.2) Sodium Level 130 mmol/L (136-145) Potassium Level 4.1 mmol/L (3.5-5.1) Chloride Level 95 mmol/L (98-107) Carbon Dioxide Level 22 mmol/L (21-32) Anion Gap 13 (6-14) Blood Urea Nitrogen 28 mg/dL (8-26) Creatinine 5.7 mg/dL (0.7-1.3) Estimated GFR (Cockcroft-Gault) 10.4 BUN/Creatinine Ratio 5 (6-20) Glucose Level 200 mg/dL (70-99) Calcium Level 8.7 mg/dL (8.5-10.1) Phosphorus Level 3.1 mg/dL (2.6-4.7) Magnesium Level 1.9 mg/dL (1.8-2.4) Total Bilirubin 0.6 mg/dL (0.2-1.0) Aspartate Amino Transf (AST/SGOT) 16 U/L (15-37) Alanine Aminotransferase (ALT/SGPT) 6 U/L (16-63) Alkaline Phosphatase 108 U/L (46-116) Total Protein 6.9 g/dL (6.4-8.2) Albumin 2.7 g/dL (3.4-5.0) Albumin/Globulin Ratio 0.6 (1.0-1.7) Random Vancomycin Level 20.3 mcg/mL CXR 1. Findings of CHF or volume overload with interstitial edema and worsening medium left and stable small right pleural effusions. 2. Progression in bibasilar consolidation, may represent atelectasis, pneumonitis, pulmonary edema and/or multifocal infection. Micro Microbiology 08/04/18 Blood Culture - Preliminary, Resulted NO GROWTH AFTER 1 DAY Objective Assessment Bibasilar consolidation Fluid overload N/V resolved Hypoxia - improved, off O2 CKD/HD DM Hypothyroidism Plan Plan of Care Clinically looks good vanc, cefepime and Levaquin - wean off soon Thank you Attending Co-Sign The patient was seen and interviewed as well as examined at the bedside. The chart was reviewed. The case was discussed. Agree with the plan of care. TALISHA DEUTSCH APRN Aug 05, 2018 10:51 MARIAM KOROMA MD Aug 05, 2018 13:10
--- NOTE | 2018-08-05 11:56 | CARD ---
MR#: [id number] Date of Study: 08/04/2018 Ordering Physician: PABLO SHERMAN, Referring Physician: PABLO SHERMAN, Tech: Mirella Fonseca APPROVED REPORT EXAM: LIMITED Two-dimensional and M-mode echocardiogram. Other Information Quality : Good INDICATION Congestive Heart Failure 2D DIMENSIONS RVDd3.0 (2.9-3.5cm)Left Atrium(2D)4.5 (1.6-4.0cm) IVSd1.0 (0.7-1.1cm)Aortic Root(2D)3.6 (2.0-3.7cm) LVDd5.7 (3.9-5.9cm)LVOT Diameter2.2 (1.8-2.4cm) PWd1.3 (0.7-1.1cm)LVDs4.3 (2.5-4.0cm) FS (%) 25.2 %SV79.6 ml LEFT VENTRICLE The left ventricle is normal size. There is mild to moderate concentric left ventricular hypertrophy. The left ventricular systolic function is normal and the ejection fraction is within normal range. T he Ejection Fraction is 50-55%. There is normal LV segmental wall motion. RIGHT VENTRICLE The right ventricle is normal size. There is normal right ventricular wall thickness. The right ventr icular systolic function is normal. ATRIA The left atrium size is normal. The right atrium size is normal. The interatrial septum is intact wit h no evidence for an atrial septal defect or patent foramen ovale as noted on 2-D or Doppler imaging. AORTIC VALVE The aortic valve is thickened but opens well. Doppler and Color Flow revealed trace aortic regurgitat ion. There is no significant aortic valvular stenosis. MITRAL VALVE The mitral valve is normal in structure and function. There is no mitral valve stenosis. Doppler and Color-flow revealed trace to mild mitral regurgitation. TRICUSPID VALVE The tricuspid valve is normal in structure and function. Doppler and Color Flow revealed trace tricus pid regurgitation. GREAT VESSELS The aortic root is normal in size. The IVC is dilated and collapses >50% with inspiration. PERICARDIAL EFFUSION There is a small pericardial effusion with no hemodynamic significance. Critical Notification Critical Value: No <Conclusion> The left ventricle is normal size. The left ventricular systolic function is normal and the ejection fraction is within normal range. The Ejection Fraction is 50-55%. There is mild to moderate concentric left ventricular hypertrophy. There is no significant aortic valvular stenosis. Doppler and Color Flow revealed trace aortic regurgitation. Doppler and Color-flow revealed trace to mild mitral regurgitation. Doppler and Color Flow revealed trace tricuspid regurgitation. There is a small pericardial effusion with no hemodynamic significance. Signed by : Pedrito Schuster MD Electronically Approved : 08/05/2018 11:55:08
[2018-08-05] MEDS: FERROUS SULFATE 325 MG TABLET. PO SCH ×2 (12:00→13:27)
--- NOTE | 2018-08-05 12:59 | PDOC ---
PROGRESS NOTES Chief Complaint Chief Complaint Acute on chronic diastolic CHF Pulmonary HTN: PAP 63 mmHg, recent EF and WM nml. Primary Hypothyroidism: TSH 358, Uncontrolled DM: initial BG 677 ESRD on HD MWF HTN: labile Noncompliance: failed follow ups, skips medications. . HLP: Recent lipids LDL 51 and HDL 81 despite no statin. Elevated troponin: with CHF, ESRD morbid obesity mild malnutrition with ESRD plan: fu with id, card, renal cont HD mwf CONT home meds slightly decrease insulin to lantus 20u qhs, aspart 5u tid. ssi doubt has PNA, but ID on board, on multiple abx for now high TSH, doubt pt takes home meds, check t3, t4, on synthroid iv for today History of Present Illness History of Present Illness ROS: no fever, chills, sob or chest pain feels ok glucose liable no fever, no high wbc, doubt PNA Vitals Vitals Vital Signs Date Time Temp Pulse Resp B/P (MAP) Pulse Ox O2 Delivery O2 Flow Rate FiO2 08/05/18 08:00 Room Air 08/05/18 07:18 98.1 79 18 137/89 (105) 96 98.1 Physical Exam General: Alert, Oriented X3, Cooperative, No acute distress Heart: Regular rate (SR), Other (3/6 systolic murmur to LLS border) Lungs: Other (bl mild decreased bs) Abdomen: Soft, No tenderness Extremities: No cyanosis, Other (3+ bilateral LE pitting edema) Skin: No breakdown, No significant lesion Labs LABS Laboratory Tests Test 08/04/18 14:45 08/04/18 17:02 08/04/18 20:22 08/04/18 22:50 Troponin I Quantitative 0.182 ng/mL (0.000-0.055) Glucose (Fingerstick) 47 mg/dL (70-99) 85 mg/dL (70-99) Urine Collection Type Unknown Urine Color Yellow Urine Clarity Clear Urine pH 7.0 Urine Specific [place] 1.025 Urine Protein >=300 mg/dL (NEG-TRACE) Urine Glucose (UA) >=1000 mg/dL (NEG) Urine Ketones (Stick) Negative mg/dL (NEG) Urine Blood Large (NEG) Urine Nitrite Negative (NEG) Urine Bilirubin Negative (NEG) Urine Urobilinogen Dipstick 0.2 mg/dL (0.2 mg/dL) Urine Leukocyte Esterase Negative (NEG) Urine RBC >40 /HPF (0-2) Urine WBC 0 /HPF (0-4) Urine Bacteria 0 /HPF (0-FEW) Test 08/05/18 04:50 08/05/18 07:09 White Blood Count 9.5 x10^3/uL (4.0-11.0) Red Blood Count 4.41 x10^6/uL (4.30-5.70) Hemoglobin 12.5 g/dL (13.0-17.5) Hematocrit 37.1 % (39.0-53.0) Mean Corpuscular Volume 84 fL (79-100) Mean Corpuscular Hemoglobin 28 pg (25-35) Mean Corpuscular Hemoglobin Concent 34 g/dL (31-37) Red Cell Distribution Width 18.4 % (11.5-14.5) Platelet Count 268 x10^3/uL (140-400) Neutrophils (%) (Auto) 66 % (31-73) Lymphocytes (%) (Auto) 16 % (24-48) Monocytes (%) (Auto) 6 % (0-9) Eosinophils (%) (Auto) 11 % (0-3) Basophils (%) (Auto) 2 % (0-3) Neutrophils # (Auto) 6.2 x10^3uL (1.8-7.7) Lymphocytes # (Auto) 1.5 x10^3/uL (1.0-4.8) Monocytes # (Auto) 0.5 x10^3/uL (0.0-1.1) Eosinophils # (Auto) 1.0 x10^3/uL (0.0-0.7) Basophils # (Auto) 0.2 x10^3/uL (0.0-0.2) Sodium Level 130 mmol/L (136-145) Potassium Level 4.1 mmol/L (3.5-5.1) Chloride Level 95 mmol/L (98-107) Carbon Dioxide Level 22 mmol/L (21-32) Anion Gap 13 (6-14) Blood Urea Nitrogen 28 mg/dL (8-26) Creatinine 5.7 mg/dL (0.7-1.3) Estimated GFR (Cockcroft-Gault) 10.4 BUN/Creatinine Ratio 5 (6-20) Glucose Level 200 mg/dL (70-99) Calcium Level 8.7 mg/dL (8.5-10.1) Phosphorus Level 3.1 mg/dL (2.6-4.7) Magnesium Level 1.9 mg/dL (1.8-2.4) Total Bilirubin 0.6 mg/dL (0.2-1.0) Aspartate Amino Transf (AST/SGOT) 16 U/L (15-37) Alanine Aminotransferase (ALT/SGPT) 6 U/L (16-63) Alkaline Phosphatase 108 U/L (46-116) Total Protein 6.9 g/dL (6.4-8.2) Albumin 2.7 g/dL (3.4-5.0) Albumin/Globulin Ratio 0.6 (1.0-1.7) Random Vancomycin Level 20.3 mcg/mL Glucose (Fingerstick) 250 mg/dL (70-99) Assessment and Plan Assessmemt and Plan Problems Medical Problems: (1) Fluid overload Status: Acute Comment Review of Relevant I have reviewed the following items yesenia (where applicable) has been applied. Labs Laboratory Tests Test 08/04/18 07:35 08/04/18 11:06 08/04/18 11:50 08/04/18 14:45 White Blood Count 8.2 x10^3/uL (4.0-11.0) Red Blood Count 3.88 x10^6/uL (4.30-5.70) Hemoglobin 11.2 g/dL (13.0-17.5) Hematocrit 33.4 % (39.0-53.0) Mean Corpuscular Volume 86 fL (79-100) Mean Corpuscular Hemoglobin 29 pg (25-35) Mean Corpuscular Hemoglobin Concent 33 g/dL (31-37) Red Cell Distribution Width 17.7 % (11.5-14.5) Platelet Count 228 x10^3/uL (140-400) Neutrophils (%) (Auto) 70 % (31-73) Lymphocytes (%) (Auto) 18 % (24-48) Monocytes (%) (Auto) 5 % (0-9) Eosinophils (%) (Auto) 5 % (0-3) Basophils (%) (Auto) 2 % (0-3) Neutrophils # (Auto) 5.7 x10^3uL (1.8-7.7) Lymphocytes # (Auto) 1.5 x10^3/uL (1.0-4.8) Monocytes # (Auto) 0.4 x10^3/uL (0.0-1.1) Eosinophils # (Auto) 0.4 x10^3/uL (0.0-0.7) Basophils # (Auto) 0.2 x10^3/uL (0.0-0.2) Prothrombin Time 13.0 SEC (11.7-14.0) Prothromb Time International Ratio 1.0 (0.8-1.1) Sodium Level 130 mmol/L (136-145) Potassium Level 3.7 mmol/L (3.5-5.1) Chloride Level 92 mmol/L (98-107) Carbon Dioxide Level 26 mmol/L (21-32) Anion Gap 12 (6-14) Blood Urea Nitrogen 25 mg/dL (8-26) Creatinine 5.1 mg/dL (0.7-1.3) Estimated GFR (Cockcroft-Gault) 11.8 BUN/Creatinine Ratio 5 (6-20) Glucose Level 677 mg/dL (70-99) Lactic Acid Level 2.1 mmol/L (0.4-2.0) Calcium Level 8.7 mg/dL (8.5-10.1) Total Bilirubin 0.6 mg/dL (0.2-1.0) Aspartate Amino Transf (AST/SGOT) 11 U/L (15-37) Alanine Aminotransferase (ALT/SGPT) 10 U/L (16-63) Alkaline Phosphatase 138 U/L (46-116) Troponin I Quantitative 0.071 ng/mL (0.000-0.055) 0.127 ng/mL (0.000-0.055) 0.182 ng/mL (0.000-0.055) DA-Keb-I-Type Natriuretic Peptide > 61502 pg/mL (0-124) Total Protein 6.8 g/dL (6.4-8.2) Albumin 2.8 g/dL (3.4-5.0) Albumin/Globulin Ratio 0.7 (1.0-1.7) Thyroid Stimulating Hormone (TSH) 357.994 uIU/mL (0.358-3.74) Glucose (Fingerstick) 372 mg/dL (70-99) Fibrinogen 355 mg/dL (200-440) D-Dimer (Zena) 2.31 ug/mlFEU (0.00-0.50) Procalcitonin 0.87 ng/mL (0.00-0.10) Test 08/04/18 17:02 08/04/18 20:22 08/04/18 22:50 08/05/18 04:50 Glucose (Fingerstick) 47 mg/dL (70-99) 85 mg/dL (70-99) Urine Collection Type Unknown Urine Color Yellow Urine Clarity Clear Urine pH 7.0 Urine Specific [place] 1.025 Urine Protein >=300 mg/dL (NEG-TRACE) Urine Glucose (UA) >=1000 mg/dL (NEG) Urine Ketones (Stick) Negative mg/dL (NEG) Urine Blood Large (NEG) Urine Nitrite Negative (NEG) Urine Bilirubin Negative (NEG) Urine Urobilinogen Dipstick 0.2 mg/dL (0.2 mg/dL) Urine Leukocyte Esterase Negative (NEG) Urine RBC >40 /HPF (0-2) Urine WBC 0 /HPF (0-4) Urine Bacteria 0 /HPF (0-FEW) White Blood Count 9.5 x10^3/uL (4.0-11.0) Red Blood Count 4.41 x10^6/uL (4.30-5.70) Hemoglobin 12.5 g/dL (13.0-17.5) Hematocrit 37.1 % (39.0-53.0) Mean Corpuscular Volume 84 fL (79-100) Mean Corpuscular Hemoglobin 28 pg (25-35) Mean Corpuscular Hemoglobin Concent 34 g/dL (31-37) Red Cell Distribution Width 18.4 % (11.5-14.5) Platelet Count 268 x10^3/uL (140-400) Neutrophils (%) (Auto) 66 % (31-73) Lymphocytes (%) (Auto) 16 % (24-48) Monocytes (%) (Auto) 6 % (0-9) Eosinophils (%) (Auto) 11 % (0-3) Basophils (%) (Auto) 2 % (0-3) Neutrophils # (Auto) 6.2 x10^3uL (1.8-7.7) Lymphocytes # (Auto) 1.5 x10^3/uL (1.0-4.8) Monocytes # (Auto) 0.5 x10^3/uL (0.0-1.1) Eosinophils # (Auto) 1.0 x10^3/uL (0.0-0.7) Basophils # (Auto) 0.2 x10^3/uL (0.0-0.2) Sodium Level 130 mmol/L (136-145) Potassium Level 4.1 mmol/L (3.5-5.1) Chloride Level 95 mmol/L (98-107) Carbon Dioxide Level 22 mmol/L (21-32) Anion Gap 13 (6-14) Blood Urea Nitrogen 28 mg/dL (8-26) Creatinine 5.7 mg/dL (0.7-1.3) Estimated GFR (Cockcroft-Gault) 10.4 BUN/Creatinine Ratio 5 (6-20) Glucose Level 200 mg/dL (70-99) Calcium Level 8.7 mg/dL (8.5-10.1) Phosphorus Level 3.1 mg/dL (2.6-4.7) Magnesium Level 1.9 mg/dL (1.8-2.4) Total Bilirubin 0.6 mg/dL (0.2-1.0) Aspartate Amino Transf (AST/SGOT) 16 U/L (15-37) Alanine Aminotransferase (ALT/SGPT) 6 U/L (16-63) Alkaline Phosphatase 108 U/L (46-116) Total Protein 6.9 g/dL (6.4-8.2) Albumin 2.7 g/dL (3.4-5.0) Albumin/Globulin Ratio 0.6 (1.0-1.7) Random Vancomycin Level 20.3 mcg/mL Test 08/05/18 07:09 Glucose (Fingerstick) 250 mg/dL (70-99) Laboratory Tests Test 08/04/18 14:45 08/04/18 17:02 08/04/18 20:22 08/04/18 22:50 Troponin I Quantitative 0.182 ng/mL (0.000-0.055) Glucose (Fingerstick) 47 mg/dL (70-99) 85 mg/dL (70-99) Urine Collection Type Unknown Urine Color Yellow Urine Clarity Clear Urine pH 7.0 Urine Specific [place] 1.025 Urine Protein >=300 mg/dL (NEG-TRACE) Urine Glucose (UA) >=1000 mg/dL (NEG) Urine Ketones (Stick) Negative mg/dL (NEG) Urine Blood Large (NEG) Urine Nitrite Negative (NEG) Urine Bilirubin Negative (NEG) Urine Urobilinogen Dipstick 0.2 mg/dL (0.2 mg/dL) Urine Leukocyte Esterase Negative (NEG) Urine RBC >40 /HPF (0-2) Urine WBC 0 /HPF (0-4) Urine Bacteria 0 /HPF (0-FEW) Test 08/05/18 04:50 08/05/18 07:09 White Blood Count 9.5 x10^3/uL (4.0-11.0) Red Blood Count 4.41 x10^6/uL (4.30-5.70) Hemoglobin 12.5 g/dL (13.0-17.5) Hematocrit 37.1 % (39.0-53.0) Mean Corpuscular Volume 84 fL (79-100) Mean Corpuscular Hemoglobin 28 pg (25-35) Mean Corpuscular Hemoglobin Concent 34 g/dL (31-37) Red Cell Distribution Width 18.4 % (11.5-14.5) Platelet Count 268 x10^3/uL (140-400) Neutrophils (%) (Auto) 66 % (31-73) Lymphocytes (%) (Auto) 16 % (24-48) Monocytes (%) (Auto) 6 % (0-9) Eosinophils (%) (Auto) 11 % (0-3) Basophils (%) (Auto) 2 % (0-3) Neutrophils # (Auto) 6.2 x10^3uL (1.8-7.7) Lymphocytes # (Auto) 1.5 x10^3/uL (1.0-4.8) Monocytes # (Auto) 0.5 x10^3/uL (0.0-1.1) Eosinophils # (Auto) 1.0 x10^3/uL (0.0-0.7) Basophils # (Auto) 0.2 x10^3/uL (0.0-0.2) Sodium Level 130 mmol/L (136-145) Potassium Level 4.1 mmol/L (3.5-5.1) Chloride Level 95 mmol/L (98-107) Carbon Dioxide Level 22 mmol/L (21-32) Anion Gap 13 (6-14) Blood Urea Nitrogen 28 mg/dL (8-26) Creatinine 5.7 mg/dL (0.7-1.3) Estimated GFR (Cockcroft-Gault) 10.4 BUN/Creatinine Ratio 5 (6-20) Glucose Level 200 mg/dL (70-99) Calcium Level 8.7 mg/dL (8.5-10.1) Phosphorus Level 3.1 mg/dL (2.6-4.7) Magnesium Level 1.9 mg/dL (1.8-2.4) Total Bilirubin 0.6 mg/dL (0.2-1.0) Aspartate Amino Transf (AST/SGOT) 16 U/L (15-37) Alanine Aminotransferase (ALT/SGPT) 6 U/L (16-63) Alkaline Phosphatase 108 U/L (46-116) Total Protein 6.9 g/dL (6.4-8.2) Albumin 2.7 g/dL (3.4-5.0) Albumin/Globulin Ratio 0.6 (1.0-1.7) Random Vancomycin Level 20.3 mcg/mL Glucose (Fingerstick) 250 mg/dL (70-99) Microbiology 08/04/18 Blood Culture - Final, Complete Medications Current Medications Levofloxacin/ Dextrose (Levaquin Per Pharmacy) 1 each PRN DAILY PRN MC SEE COMMENTS; Start 08/04/18 at 08:45 Nitroglycerin (Nitro-Bid Oint) 1 inch 1X ONCE TP Last administered on at 09:11; Start 08/04/18 at 08:45; Stop 08/04/18 at 08:47; Status DC Potassium Citrate (Urocit-K) 40 meq 1X STAT PO Last administered on 08/04/18at 09:13; Start 08/04/18 at 08:43; Stop 08/04/18 at 08:47; Status DC Insulin Human Regular (HumuLIN R VIAL) 10 unit 1X ONCE IV Last administered on 08/04/18at 09:18; Start 08/04/18 at 08:45; Stop 08/04/18 at 08:47; Status DC Aspirin (Children'S Aspirin) 324 mg 1X ONCE PO ; Start 08/04/18 at 08:45; Stop 08/04/18 at 08:47; Status DC Levofloxacin/ Dextrose 150 ml @ 100 mls/hr 1X ONCE IV Last administered on at 09:06; Start 08/04/18 at 09:00; Stop 08/04/18 at 10:29; Status DC Levofloxacin/ Dextrose 100 ml @ 100 mls/hr Q48H IV ; Start 08/06/18 at 09:00 Sodium Chloride (Normal Saline Flush) 3 ml PRN DAILY PRN IV AFTER MEDS AND BLOOD DRAWS; Start 08/04/18 at 11:15 Ondansetron HCl (Zofran) 4 mg PRN Q6HRS PRN IV NAUSEA/VOMITING; Start 08/04/18 at 11:15 Prochlorperazine (Compazine) 25 mg PRN Q12HR PRN RI NAUSEA/VOMITING; Start 08/04/18 at 11:15 Acetaminophen/ Hydrocodone Bitart (Lortab 5/325) 1 tab PRN Q4HRS PRN PO MILD PAIN; Start 08/04/18 at 11:15 Oxycodone HCl (Roxicodone) 5 mg PRN Q4HRS PRN PO MODERATE PAIN; Start 08/04/18 at 11:15 Docusate Sodium (Colace) 100 mg BID PO Last administered on 08/04/18at 21:06; Start 08/04/18 at 21:00 Bisacodyl (Dulcolax Supp) 10 mg PRN DAILY PRN RI CONSTIPATION; Start 08/04/18 at 11:15 Heparin Sodium (Porcine) (Heparin Sodium) 5,000 unit Q12HR SQ Last administered on 08/04/18at 21:09; Start 08/04/18 at 21:00 Amlodipine Besylate (Norvasc) 10 mg DAILY PO Last administered on 08/04/18at 12: 32; Start 08/04/18 at 12:00 Aspirin (Faisal Aspirin) 325 mg DAILYWBKFT PO ; Start 08/05/18 at 08:00 Ergocalciferol (Vitamin D2) 50,000 unit WEEKLY PO ; Start 08/11/18 at 09:00 Ferrous Sulfate (Feosol) 325 mg TIDWMEALS PO Last administered on 08/04/18at 12: 31; Start 08/04/18 at 12:00 Insulin Glargine (Lantus) 30 units QHS SQ ; Start 08/04/18 at 21:00 Insulin Human Lispro (HumaLOG) 11 units TIDAC SQ Last administered on at 08:34; Start 08/04/18 at 11:30 Vitamin B Complex/ Vitamin C (Madai-Sean) 1 tab DAILY PO Last administered on at 12:31; Start 08/04/18 at 12:00 Cefepime HCl 2 gm/ Dextrose 100 ml @ 200 mls/hr Q8HRS IV ; Start 08/04/18 at 14 :00; Status UNV Cefepime HCl 1 gm/ Dextrose 50 ml @ 100 mls/hr 1X PRN IV ; Start 08/04/18 at 11:45; Status UNV Cefepime HCl (Maxipime) 1 gm Q24H IVP Last administered on 08/04/18at 14:09; Start 08/04/18 at 12:00 Levothyroxine Sodium 100 mcg/ Sodium Chloride 5 ml @ 100 mls/hr DAILY IVP Last administered on 08/04/18at 14:09; Start 08/04/18 at 14:00 Vancomycin HCl (Vanco Per Pharmacy) 1 each PRN DAILY PRN MC SEE COMMENTS Last administered on 08/05/18at 10:49; Start 08/04/18 at 15:00 Vancomycin HCl 2 gm/Sodium Chloride 500 ml @ 250 mls/hr ONCE ONCE IV Last administered on 08/04/18at 15:12; Start 08/04/18 at 15:30; Stop 08/04/18 at 17:29 ; Status DC Vancomycin HCl (Vancomycin Random Level) 1 each 1X ONCE MC ; Start 08/06/18 at 06:00; Stop 08/06/18 at 06:01; Status Cancel Sodium Chloride 1,000 ml @ 1,000 mls/hr Q1H PRN IV hypotension; Start at 08:30; Stop 08/05/18 at 14:29 Info (PHARMACY MONITORING -- do not chart) 1 each PRN DAILY PRN MC SEE COMMENTS ; Start 08/05/18 at 09:30; Status UNV Info (PHARMACY MONITORING -- do not chart) 1 each PRN DAILY PRN MC SEE COMMENTS ; Start 08/05/18 at 09:30 Lactobacillus Rhamnosus (Culturelle) 1 cap BID PO ; Start 08/05/18 at 21:00 Vancomycin HCl 500 mg/Sodium Chloride 100 ml @ 100 mls/hr 1X ONCE IV ; Start 08/05/18 at 10:45; Stop 08/05/18 at 11:44; Status DC Vancomycin HCl 500 mg/Sodium Chloride 100 ml @ 100 mls/hr QMWF IV ; Start 09/12 at 16:00 Active Scripts Active Lantus Solostar (Insulin Glargine,Hum.rec.anlog) 100 Unit/1 Ml Insuln.pen 30 Units SQ QHS 30 Days Amlodipine Besylate 10 Mg Tablet 10 Mg PO DAILY 30 Days Humalog (Insulin Lispro) 100 Unit/1 Ml Insuln.pen 11 Units SQ TIDAC 30 Days Vitamin D2 (Ergocalciferol (Vitamin D2)) 50,000 Unit Capsule 50,000 Unit PO WEEKLY Synthroid (Levothyroxine Sodium) 137 Mcg Tablet 137 Mcg PO DAILY07 30 Days Aspirin 325 Mg Tablet 325 Mg PO DAILYWBKFT 60 Days Feosol (Ferrous Sulfate) 325 Mg Tablet 325 Mg PO TID 30 Days Reported Dialyvite Tablet (Folic Acid/Vitamin B Comp W-C) 1 Each Tablet 1 Each PO Vitals/I & O Vital Sign - Last 24 Hours 08/04/18 08/04/18 08/04/18 08/04/18 15:00 19:00 19:49 22:32 Temp 97.4 97.5 98.2 97.4 97.5 98.2 Pulse 76 68 73 Resp 18 18 B/P (MAP) 130/80 (97) 137/68 (91) 139/67 (91) Pulse Ox 96 96 94 O2 Delivery Room Air Room Air Room Air Room Air 08/05/18 08/05/18 08/05/18 03:02 07:18 08:00 Temp 98.3 98.1 98.3 98.1 Pulse 80 79 Resp 16 18 B/P (MAP) 178/88 (118) 137/89 (105) Pulse Ox 97 96 O2 Delivery Room Air Room Air Room Air Intake and Output 08/04/18 08/04/18 08/05/18 15:00 23:00 07:00 Intake Total 200 ml 800 ml 300 ml Output Total 450 ml 225 ml Balance 200 ml 350 ml 75 ml JANNY ORELLANA MD Aug 05, 2018 12:58
[2018-08-05] MEDS ORDERED: DEXTROSE 50% 25 GM / 50ML DISP.SYRIN. IV PRN (13:00)
[2018-08-05 13:20] VITALS: BP 172/92
[2018-08-05] MEDS: DOCUSATE SODIUM 100 MG CAPSULE. PO SCH (13:26)
[2018-08-05] MEDS: FOLIC/VIT B COMP W-C (RENAL) TABLET. PO SCH (13:27)
[2018-08-05] MEDS: LEVOTHYROXINE SODIUM IVP SCH (13:30)
[2018-08-05] MEDS: NORMAL SALINE IVP SCH (13:30)
[2018-08-05] MEDS: amLODIPine BESYLATE 10 MG TABLET PO SCH (13:30)
[2018-08-05] MEDS: HEPARIN for SUB-Q USE 5,000 UNIT/ML VIAL. SQ SCH (13:39)
--- NOTE | 2018-08-05 13:40 | PDOC ---
PROGRESS NOTES Subjective Subjective SEEN IN FOLLOW UP OF ESRD Objective Objective Vital Signs Date Time Temp Pulse Resp B/P (MAP) Pulse Ox O2 Delivery O2 Flow Rate FiO2 08/05/18 13:20 97.4 86 18 172/92 (118) 96 Room Air 97.4 Intake and Output 08/05/18 07:00 Intake Total 1300 ml Output Total 675 ml Balance 625 ml Intake Oral 1300 ml Output Urine Total 675 ml Physical Exam Abdomen: Normal bowel sounds, Soft, No tenderness, No hepatosplenomegaly, No masses Heart: Regular rate, Normal S1, Normal S2, No murmurs, Gallops Extremities: No clubbing, No cyanosis, No edema, Normal pulses, No tenderness/ swelling General: Alert, Oriented X3, Cooperative, No acute distress Lungs: Clear to auscultation, Normal air movement Psych/Mental Status: Mental status NL, Mood NL Diagnosis RENAL FAILURE: ESRD Assessment Assessment Problems Medical Problems: (1) Fluid overload Status: Acute Plan Plan of Care DIALYSIS TODAY AND TOLERATED WELL. CONT BP CONTROL. CONT ANTIBIOTICS Comment Review of Relevant I have reviewed the following items yesenia (where applicable) has been applied. Labs Laboratory Tests Test 08/04/18 07:35 08/04/18 11:06 08/04/18 11:50 08/04/18 14:45 White Blood Count 8.2 x10^3/uL (4.0-11.0) Red Blood Count 3.88 x10^6/uL (4.30-5.70) Hemoglobin 11.2 g/dL (13.0-17.5) Hematocrit 33.4 % (39.0-53.0) Mean Corpuscular Volume 86 fL (79-100) Mean Corpuscular Hemoglobin 29 pg (25-35) Mean Corpuscular Hemoglobin Concent 33 g/dL (31-37) Red Cell Distribution Width 17.7 % (11.5-14.5) Platelet Count 228 x10^3/uL (140-400) Neutrophils (%) (Auto) 70 % (31-73) Lymphocytes (%) (Auto) 18 % (24-48) Monocytes (%) (Auto) 5 % (0-9) Eosinophils (%) (Auto) 5 % (0-3) Basophils (%) (Auto) 2 % (0-3) Neutrophils # (Auto) 5.7 x10^3uL (1.8-7.7) Lymphocytes # (Auto) 1.5 x10^3/uL (1.0-4.8) Monocytes # (Auto) 0.4 x10^3/uL (0.0-1.1) Eosinophils # (Auto) 0.4 x10^3/uL (0.0-0.7) Basophils # (Auto) 0.2 x10^3/uL (0.0-0.2) Prothrombin Time 13.0 SEC (11.7-14.0) Prothromb Time International Ratio 1.0 (0.8-1.1) Sodium Level 130 mmol/L (136-145) Potassium Level 3.7 mmol/L (3.5-5.1) Chloride Level 92 mmol/L (98-107) Carbon Dioxide Level 26 mmol/L (21-32) Anion Gap 12 (6-14) Blood Urea Nitrogen 25 mg/dL (8-26) Creatinine 5.1 mg/dL (0.7-1.3) Estimated GFR (Cockcroft-Gault) 11.8 BUN/Creatinine Ratio 5 (6-20) Glucose Level 677 mg/dL (70-99) Lactic Acid Level 2.1 mmol/L (0.4-2.0) Calcium Level 8.7 mg/dL (8.5-10.1) Total Bilirubin 0.6 mg/dL (0.2-1.0) Aspartate Amino Transf (AST/SGOT) 11 U/L (15-37) Alanine Aminotransferase (ALT/SGPT) 10 U/L (16-63) Alkaline Phosphatase 138 U/L (46-116) Troponin I Quantitative 0.071 ng/mL (0.000-0.055) 0.127 ng/mL (0.000-0.055) 0.182 ng/mL (0.000-0.055) KG-Arj-S-Type Natriuretic Peptide > 45627 pg/mL (0-124) Total Protein 6.8 g/dL (6.4-8.2) Albumin 2.8 g/dL (3.4-5.0) Albumin/Globulin Ratio 0.7 (1.0-1.7) Thyroid Stimulating Hormone (TSH) 357.994 uIU/mL (0.358-3.74) Glucose (Fingerstick) 372 mg/dL (70-99) Fibrinogen 355 mg/dL (200-440) D-Dimer (Zena) 2.31 ug/mlFEU (0.00-0.50) Procalcitonin 0.87 ng/mL (0.00-0.10) Test 08/04/18 17:02 08/04/18 20:22 08/04/18 22:50 08/05/18 04:50 Glucose (Fingerstick) 47 mg/dL (70-99) 85 mg/dL (70-99) Urine Collection Type Unknown Urine Color Yellow Urine Clarity Clear Urine pH 7.0 Urine Specific [place] 1.025 Urine Protein >=300 mg/dL (NEG-TRACE) Urine Glucose (UA) >=1000 mg/dL (NEG) Urine Ketones (Stick) Negative mg/dL (NEG) Urine Blood Large (NEG) Urine Nitrite Negative (NEG) Urine Bilirubin Negative (NEG) Urine Urobilinogen Dipstick 0.2 mg/dL (0.2 mg/dL) Urine Leukocyte Esterase Negative (NEG) Urine RBC >40 /HPF (0-2) Urine WBC 0 /HPF (0-4) Urine Bacteria 0 /HPF (0-FEW) White Blood Count 9.5 x10^3/uL (4.0-11.0) Red Blood Count 4.41 x10^6/uL (4.30-5.70) Hemoglobin 12.5 g/dL (13.0-17.5) Hematocrit 37.1 % (39.0-53.0) Mean Corpuscular Volume 84 fL (79-100) Mean Corpuscular Hemoglobin 28 pg (25-35) Mean Corpuscular Hemoglobin Concent 34 g/dL (31-37) Red Cell Distribution Width 18.4 % (11.5-14.5) Platelet Count 268 x10^3/uL (140-400) Neutrophils (%) (Auto) 66 % (31-73) Lymphocytes (%) (Auto) 16 % (24-48) Monocytes (%) (Auto) 6 % (0-9) Eosinophils (%) (Auto) 11 % (0-3) Basophils (%) (Auto) 2 % (0-3) Neutrophils # (Auto) 6.2 x10^3uL (1.8-7.7) Lymphocytes # (Auto) 1.5 x10^3/uL (1.0-4.8) Monocytes # (Auto) 0.5 x10^3/uL (0.0-1.1) Eosinophils # (Auto) 1.0 x10^3/uL (0.0-0.7) Basophils # (Auto) 0.2 x10^3/uL (0.0-0.2) Sodium Level 130 mmol/L (136-145) Potassium Level 4.1 mmol/L (3.5-5.1) Chloride Level 95 mmol/L (98-107) Carbon Dioxide Level 22 mmol/L (21-32) Anion Gap 13 (6-14) Blood Urea Nitrogen 28 mg/dL (8-26) Creatinine 5.7 mg/dL (0.7-1.3) Estimated GFR (Cockcroft-Gault) 10.4 BUN/Creatinine Ratio 5 (6-20) Glucose Level 200 mg/dL (70-99) Calcium Level 8.7 mg/dL (8.5-10.1) Phosphorus Level 3.1 mg/dL (2.6-4.7) Magnesium Level 1.9 mg/dL (1.8-2.4) Total Bilirubin 0.6 mg/dL (0.2-1.0) Aspartate Amino Transf (AST/SGOT) 16 U/L (15-37) Alanine Aminotransferase (ALT/SGPT) 6 U/L (16-63) Alkaline Phosphatase 108 U/L (46-116) Total Protein 6.9 g/dL (6.4-8.2) Albumin 2.7 g/dL (3.4-5.0) Albumin/Globulin Ratio 0.6 (1.0-1.7) Random Vancomycin Level 20.3 mcg/mL Test 08/05/18 07:09 08/05/18 13:16 Glucose (Fingerstick) 250 mg/dL (70-99) 82 mg/dL (70-99) Laboratory Tests Test 08/04/18 14:45 08/04/18 17:02 08/04/18 20:22 08/04/18 22:50 Troponin I Quantitative 0.182 ng/mL (0.000-0.055) Glucose (Fingerstick) 47 mg/dL (70-99) 85 mg/dL (70-99) Urine Collection Type Unknown Urine Color Yellow Urine Clarity Clear Urine pH 7.0 Urine Specific [place] 1.025 Urine Protein >=300 mg/dL (NEG-TRACE) Urine Glucose (UA) >=1000 mg/dL (NEG) Urine Ketones (Stick) Negative mg/dL (NEG) Urine Blood Large (NEG) Urine Nitrite Negative (NEG) Urine Bilirubin Negative (NEG) Urine Urobilinogen Dipstick 0.2 mg/dL (0.2 mg/dL) Urine Leukocyte Esterase Negative (NEG) Urine RBC >40 /HPF (0-2) Urine WBC 0 /HPF (0-4) Urine Bacteria 0 /HPF (0-FEW) Test 08/05/18 04:50 08/05/18 07:09 08/05/18 13:16 White Blood Count 9.5 x10^3/uL (4.0-11.0) Red Blood Count 4.41 x10^6/uL (4.30-5.70) Hemoglobin 12.5 g/dL (13.0-17.5) Hematocrit 37.1 % (39.0-53.0) Mean Corpuscular Volume 84 fL (79-100) Mean Corpuscular Hemoglobin 28 pg (25-35) Mean Corpuscular Hemoglobin Concent 34 g/dL (31-37) Red Cell Distribution Width 18.4 % (11.5-14.5) Platelet Count 268 x10^3/uL (140-400) Neutrophils (%) (Auto) 66 % (31-73) Lymphocytes (%) (Auto) 16 % (24-48) Monocytes (%) (Auto) 6 % (0-9) Eosinophils (%) (Auto) 11 % (0-3) Basophils (%) (Auto) 2 % (0-3) Neutrophils # (Auto) 6.2 x10^3uL (1.8-7.7) Lymphocytes # (Auto) 1.5 x10^3/uL (1.0-4.8) Monocytes # (Auto) 0.5 x10^3/uL (0.0-1.1) Eosinophils # (Auto) 1.0 x10^3/uL (0.0-0.7) Basophils # (Auto) 0.2 x10^3/uL (0.0-0.2) Sodium Level 130 mmol/L (136-145) Potassium Level 4.1 mmol/L (3.5-5.1) Chloride Level 95 mmol/L (98-107) Carbon Dioxide Level 22 mmol/L (21-32) Anion Gap 13 (6-14) Blood Urea Nitrogen 28 mg/dL (8-26) Creatinine 5.7 mg/dL (0.7-1.3) Estimated GFR (Cockcroft-Gault) 10.4 BUN/Creatinine Ratio 5 (6-20) Glucose Level 200 mg/dL (70-99) Calcium Level 8.7 mg/dL (8.5-10.1) Phosphorus Level 3.1 mg/dL (2.6-4.7) Magnesium Level 1.9 mg/dL (1.8-2.4) Total Bilirubin 0.6 mg/dL (0.2-1.0) Aspartate Amino Transf (AST/SGOT) 16 U/L (15-37) Alanine Aminotransferase (ALT/SGPT) 6 U/L (16-63) Alkaline Phosphatase 108 U/L (46-116) Total Protein 6.9 g/dL (6.4-8.2) Albumin 2.7 g/dL (3.4-5.0) Albumin/Globulin Ratio 0.6 (1.0-1.7) Random Vancomycin Level 20.3 mcg/mL Glucose (Fingerstick) 250 mg/dL (70-99) 82 mg/dL (70-99) Microbiology 08/04/18 Blood Culture - Final, Complete Medications Current Medications Levofloxacin/ Dextrose (Levaquin Per Pharmacy) 1 each PRN DAILY PRN MC SEE COMMENTS; Start 08/04/18 at 08:45 Nitroglycerin (Nitro-Bid Oint) 1 inch 1X ONCE TP Last administered on at 09:11; Start 08/04/18 at 08:45; Stop 08/04/18 at 08:47; Status DC Potassium Citrate (Urocit-K) 40 meq 1X STAT PO Last administered on 08/04/18at 09:13; Start 08/04/18 at 08:43; Stop 08/04/18 at 08:47; Status DC Insulin Human Regular (HumuLIN R VIAL) 10 unit 1X ONCE IV Last administered on 08/04/18at 09:18; Start 08/04/18 at 08:45; Stop 08/04/18 at 08:47; Status DC Aspirin (Children'S Aspirin) 324 mg 1X ONCE PO ; Start 08/04/18 at 08:45; Stop 08/04/18 at 08:47; Status DC Levofloxacin/ Dextrose 150 ml @ 100 mls/hr 1X ONCE IV Last administered on at 09:06; Start 08/04/18 at 09:00; Stop 08/04/18 at 10:29; Status DC Levofloxacin/ Dextrose 100 ml @ 100 mls/hr Q48H IV ; Start 08/06/18 at 09:00; Stop 08/06/18 at 09:00; Status DC Sodium Chloride (Normal Saline Flush) 3 ml PRN DAILY PRN IV AFTER MEDS AND BLOOD DRAWS; Start 08/04/18 at 11:15 Ondansetron HCl (Zofran) 4 mg PRN Q6HRS PRN IV NAUSEA/VOMITING; Start 08/04/18 at 11:15 Prochlorperazine (Compazine) 25 mg PRN Q12HR PRN [place] NAUSEA/VOMITING; Start 08/04/18 at 11:15 Acetaminophen/ Hydrocodone Bitart (Lortab 5/325) 1 tab PRN Q4HRS PRN PO MILD PAIN; Start 08/04/18 at 11:15 Oxycodone HCl (Roxicodone) 5 mg PRN Q4HRS PRN PO MODERATE PAIN; Start 08/04/18 at 11:15 Docusate Sodium (Colace) 100 mg BID PO Last administered on 08/04/18at 21:06; Start 08/04/18 at 21:00 Bisacodyl (Dulcolax Supp) 10 mg PRN DAILY PRN [place] CONSTIPATION; Start 08/04/18 at 11:15 Heparin Sodium (Porcine) (Heparin Sodium) 5,000 unit Q12HR SQ Last administered on 08/04/18at 21:09; Start 08/04/18 at 21:00 Amlodipine Besylate (Norvasc) 10 mg DAILY PO Last administered on 08/04/18at 12: 32; Start 08/04/18 at 12:00 Aspirin (Faisal Aspirin) 325 mg DAILYWBKFT PO ; Start 08/05/18 at 08:00 Ergocalciferol (Vitamin D2) 50,000 unit WEEKLY PO ; Start 08/11/18 at 09:00 Ferrous Sulfate (Feosol) 325 mg TIDWMEALS PO Last administered on 08/04/18at 12: 31; Start 08/04/18 at 12:00 Insulin Glargine (Lantus) 30 units QHS SQ ; Start 08/04/18 at 21:00; Stop 08/05 at 12:58; Status DC Insulin Human Lispro (HumaLOG) 11 units TIDAC SQ Last administered on at 08:34; Start 08/04/18 at 11:30; Stop 08/05/18 at 12:58; Status DC Vitamin B Complex/ Vitamin C (Madai-Sean) 1 tab DAILY PO Last administered on at 12:31; Start 08/04/18 at 12:00 Cefepime HCl 2 gm/ Dextrose 100 ml @ 200 mls/hr Q8HRS IV ; Start 08/04/18 at 14 :00; Status UNV Cefepime HCl 1 gm/ Dextrose 50 ml @ 100 mls/hr 1X PRN IV ; Start 08/04/18 at 11:45; Status UNV Cefepime HCl (Maxipime) 1 gm Q24H IVP Last administered on 08/04/18at 14:09; Start 08/04/18 at 12:00; Stop 08/05/18 at 13:20; Status DC Levothyroxine Sodium 100 mcg/ Sodium Chloride 5 ml @ 100 mls/hr DAILY IVP Last administered on 08/04/18at 14:09; Start 08/04/18 at 14:00 Vancomycin HCl (Vanco Per Pharmacy) 1 each PRN DAILY PRN MC SEE COMMENTS Last administered on 08/05/18at 10:49; Start 08/04/18 at 15:00; Stop 08/05/18 at 13: 22; Status DC Vancomycin HCl 2 gm/Sodium Chloride 500 ml @ 250 mls/hr ONCE ONCE IV Last administered on 08/04/18at 15:12; Start 08/04/18 at 15:30; Stop 08/05/18 at 13: 20; Status DC Vancomycin HCl (Vancomycin Random Level) 1 each 1X ONCE MC ; Start 08/06/18 at 06:00; Stop 08/06/18 at 06:01; Status Cancel Sodium Chloride 1,000 ml @ 1,000 mls/hr Q1H PRN IV hypotension; Start at 08:30; Stop 08/05/18 at 14:29 Info (PHARMACY MONITORING -- do not chart) 1 each PRN DAILY PRN MC SEE COMMENTS ; Start 08/05/18 at 09:30; Status UNV Info (PHARMACY MONITORING -- do not chart) 1 each PRN DAILY PRN MC SEE COMMENTS ; Start 08/05/18 at 09:30 Lactobacillus Rhamnosus (Culturelle) 1 cap BID PO ; Start 08/05/18 at 21:00 Vancomycin HCl 500 mg/Sodium Chloride 100 ml @ 100 mls/hr 1X ONCE IV ; Start 08/05/18 at 10:45; Stop 08/05/18 at 13:20; Status DC Vancomycin HCl 500 mg/Sodium Chloride 100 ml @ 100 mls/hr QMWF IV ; Start 09/12 at 16:00; Stop 08/07/18 at 16:00; Status DC Insulin Glargine (Lantus) 20 units QHS SQ ; Start 08/05/18 at 21:00 Insulin Human Lispro (HumaLOG) 5 units TIDAC SQ ; Start 08/05/18 at 16:30 Insulin Human Lispro (HumaLOG) 0-9 UNITS TIDWMEALS SQ ; Start 08/05/18 at 17:00 Dextrose (Dextrose 50%-Water Syringe) 12.5 gm PRN Q15MIN PRN IV SEE COMMENTS; Start 08/05/18 at 13:00 Active Scripts Active Lantus Solostar (Insulin Glargine,Hum.rec.anlog) 100 Unit/1 Ml Insuln.pen 30 Units SQ QHS 30 Days Amlodipine Besylate 10 Mg Tablet 10 Mg PO DAILY 30 Days Humalog (Insulin Lispro) 100 Unit/1 Ml Insuln.pen 11 Units SQ TIDAC 30 Days Vitamin D2 (Ergocalciferol (Vitamin D2)) 50,000 Unit Capsule 50,000 Unit PO WEEKLY Synthroid (Levothyroxine Sodium) 137 Mcg Tablet 137 Mcg PO DAILY07 30 Days Aspirin 325 Mg Tablet 325 Mg PO DAILYWBKFT 60 Days Feosol (Ferrous Sulfate) 325 Mg Tablet 325 Mg PO TID 30 Days Reported Dialyvite Tablet (Folic Acid/Vitamin B Comp W-C) 1 Each Tablet 1 Each PO Vitals/I & O Vital Sign - Last 24 Hours 08/04/18 08/04/18 08/04/18 08/04/18 15:00 19:00 19:49 22:32 Temp 97.4 97.5 98.2 97.4 97.5 98.2 Pulse 76 68 73 Resp 18 18 B/P (MAP) 130/80 (97) 137/68 (91) 139/67 (91) Pulse Ox 96 96 94 O2 Delivery Room Air Room Air Room Air Room Air 08/05/18 08/05/18 08/05/18 08/05/18 03:02 07:18 08:00 13:20 Temp 98.3 98.1 97.4 98.3 98.1 97.4 Pulse 80 79 86 Resp 16 18 18 B/P (MAP) 178/88 (118) 137/89 (105) 172/92 (118) Pulse Ox 97 96 96 O2 Delivery Room Air Room Air Room Air Room Air Intake and Output 08/04/18 08/04/18 08/05/18 15:00 23:00 07:00 Intake Total 200 ml 800 ml 300 ml Output Total 450 ml 225 ml Balance 200 ml 350 ml 75 ml SANDRINE DONIS MD Aug 05, 2018 13:40
[2018-08-05 14:04] LABS: FREE T4 0.72 ng/dL (0.76-1.46)
[2018-08-05 14:32] VITALS: BP 170/80
--- NOTE | 2018-08-05 15:08 | PDOC3 ---
Discharge Summary [facility] Date of Admission: Aug 04, 2018 Discharge Date: Aug 05, 2018 Admitting Diagnosis Acute on chronic diastolic CHF Pulmonary HTN: PAP 63 mmHg, recent EF and WM nml. Primary Hypothyroidism: TSH 358, Uncontrolled DM: initial BG 677 ESRD on HD MWF HTN: labile Noncompliance: failed follow ups, skips medications. . HLP: Recent lipids LDL 51 and HDL 81 despite no statin. Elevated troponin: with CHF, ESRD morbid obesity mild malnutrition with ESRD NO PNA. 1/4 bcx , contamination likely. Final Diagnosis CONSULTS card renal id Brief Hospital Course Mr. Ochoa is a 58 old M, h/o CHF, ESRD on HD mwf, NON Compliance, was sent from HD center for htn ,hyperglycemia. unfortunately, pt likely didnot tell the story as per staff from HD. He denies cough, sob, fever, to me. CXR found bl basilar mild infiltrate, which is likely 2/2 fluid overloaded, altho pt denies sob. NO PNA. 1/4 + bcx, id consulted, likely contamination. no need abx. pt got HD, feels ok. bp and glucose fluctuates. TSH very high, low t3, t4, pt likely not taking meds, but he said he dose. dc time 35min. plan: fu with id, card, renal cont HD mwf CONT home meds slightly decrease insulin to lantus 20u qhs, aspart 5u tid. ssi doubt has PNA, but ID on board, on multiple abx for now high TSH, doubt pt takes home meds, check t3, t4, on synthroid iv for today Disposition home CONDITION AT DISCHARGE: Improved Scheduled Amlodipine Besylate (Amlodipine Besylate), 10 MG PO DAILY Aspirin (Aspirin), 325 MG PO DAILYWBKFT Ergocalciferol (Vitamin D2) (Vitamin D2), 50,000 UNIT PO WEEKLY Ferrous Sulfate (Feosol), 325 MG PO TID Insulin Glargine,Hum.rec.anlog (Lantus Solostar), 30 UNITS SQ QHS Insulin Lispro (Humalog), 11 UNITS SQ TIDAC Levothyroxine Sodium (Synthroid), 137 MCG PO DAILY07 Miscellaneous Medications Folic Acid/Vitamin B Comp W-C (Dialyvite Tablet), 1 EACH PO, (Reported) JANNY ORELLANA MD Aug 05, 2018 15:08
[2018-08-05] MEDS ORDERED: INSULIN LISPRO 300 UNITS/3 ML INSULN.PEN. SQ SCH ×2 (16:30→17:00)
[2018-08-05] MEDS ORDERED: LACTOBACILLUS RHAMNOSUS GG 1 CAPSULE. PO SCH (21:00)
[2018-08-05] MEDS ORDERED: INSULIN GLARGINE 300 UNITS/3 ML INSULN.PEN. SQ SCH (21:00)
--- NOTE | 2018-08-06 01:33 | CONS ---
DATE OF CONSULTATION: 08/05/2018 Infectious Disease Consultation REQUESTING PHYSICIAN: Be Durbin MD REASON FOR CONSULTATION: Questionable pneumonia. HISTORY OF PRESENT ILLNESS: This patient is a 58-year-old male with a history of chronic kidney disease, who while dialyzing, developed some nausea and vomiting. He complained of some shortness of air. Chest x-ray showed volume overload with interstitial edema and worsening medium left and stable small right pleural effusions, as well as progression in bibasilar consolidation. Concerned for pneumonia. He was started on broad spectrum antibiotics. The patient is currently dialyzing. He says he feels well. He says his breathing is good. He denies chest pain, cough or congestion. Denies fevers, chills, sweats or body aches. The nausea and vomiting have settled down. He denies constipation or diarrhea. He wants to go home. Reportedly, he had desaturations prior to admission that has since improved off oxygen. PAST MEDICAL HISTORY: Chronic kidney disease, on hemodialysis. Diabetes mellitus, hyperlipidemia, hypertension, hypothyroidism, visual impairment, DJD, and acid reflux. Congestive heart failure. Chronic pain syndrome. Hyperparathyroidism. FAMILY HISTORY: Positive for diabetes and hypertension. PAST SURGICAL HISTORY: AV shunt. SOCIAL HISTORY: The patient lives at home. Nonsmoker. ALLERGIES: ATORVASTATIN. MEDICATIONS: Vancomycin, cefepime, levofloxacin. Other medications are available and have been reviewed on the MAR. REVIEW OF SYSTEMS: Per HPI, otherwise all other review of systems are negative. PHYSICAL EXAMINATION: GENERAL: The patient is slightly propped up in bed, alert, dialyzing. VITAL SIGNS: Temperature is 98.1, blood pressure 137/89, heart rate 79, respiratory rate 18, pulse oximetry is 96% on room air. BMI 30. HEENT: Normal conjunctivae. Oral cavity: Pharynx clear. LUNGS: Diminished aeration in the bases. HEART: S1 and S2. ABDOMEN: Soft, bowel sounds present, nontender. EXTREMITIES: 1+ edema in lower extremities bilaterally. No cyanosis. SKIN: Warm without rash. NEUROLOGIC: Alert, responds appropriately. LABORATORY DATA: WBC 9.5, hemoglobin 12.5, platelets 268,000. Sodium 130, potassium 4.1, creatinine 5.7, BUN 28, glucose 200. Lactic acid 2.1. [place] [address]. Troponin 0.182. Total bilirubin 0.6, AST 11, ALT 10. TSH 357.994. Procalcitonin 0.87, random vancomycin trough 20.3. Urinalysis unremarkable for infection. Blood cultures showed large Gram-positive rods in 1 of 4 bottles from 08/04/2018. IMAGING DATA: Chest x-ray per HPI. IMPRESSION: 1. Bibasilar consolidation. 2. Fluid overload. 3. Gram-positive rods bacteremia in 1 of 4 bottles, likely contaminant. 4. Nausea and vomiting, resolved. 5. Chronic kidney disease, on hemodialysis. 6. Hypoxia, improved. 7. Diabetes mellitus. 8. Hypothyroidism. PLAN: The patient clinically looks good. No need for antibiotics. We will discontinue. Supportive care. Thank you, Dr. Durbin ,for asking us to participate in this patient's care. Should you have further questions or concerns, please call. The patient seen and examined and plan of care implemented by Dr. Fabiano Koroma. FABIANO KOROMA MD DR: YOSVANY/radha JOB#: [id number] / [id number]
[2018-08-06] MEDS ORDERED: VANCOMYCIN RANDOM LEVEL. MC ONE (06:00)
[2018-08-07] MEDS ORDERED: VANCOMYCIN 500 MG in IV NORMAL SALINE 100ML 100 ML IV SCH (16:00)
[2018-08-11] MEDS ORDERED: ERGOCALCIFEROL (VITAMIN D2) 50,000 UNIT CAPSULE. PO SCH (09:00)
== END 2018-08-05 17:25 | disposition home or self-care (01) | DRG 291 ==
LOC: ER 07:25 → 2 NORTH 08:20
PROVIDERS: ADMIT Family Medicine; ATTEND Family Medicine
PROC: 5A1D70Z Performance of Urinary Filtration, Intermittent, Less than 6 Hours Per Day (ICD-10-PCS; principal; 2018-08-05)
DX: I13.2 Hypertensive heart and chronic kidney disease with heart failure and with stage 5 chronic kidney disease, or end stage renal disease (principal); I50.33 Acute on chronic diastolic (congestive) heart failure; N18.6 End stage renal disease; E44.1 Mild protein-calorie malnutrition; E78.00 Pure hypercholesterolemia, unspecified; E11.65 Type 2 diabetes mellitus with hyperglycemia; K21.9 Gastro-esophageal reflux disease without esophagitis; M19.90 Unspecified osteoarthritis, unspecified site; E03.9 Hypothyroidism, unspecified; E21.3 Hyperparathyroidism, unspecified; E11.22 Type 2 diabetes mellitus with diabetic chronic kidney disease; E78.5 Hyperlipidemia, unspecified; I16.0 Hypertensive urgency; I48.91 Unspecified atrial fibrillation; G89.4 Chronic pain syndrome; I27.20 Pulmonary hypertension, unspecified; H54.7 Unspecified visual loss; E66.01 Morbid (severe) obesity due to excess calories; Z83.3 Family history of diabetes mellitus; Z82.49 Family history of ischemic heart disease and other diseases of the circulatory system; Z99.2 Dependence on renal dialysis; Z86.73 Personal history of transient ischemic attack (TIA), and cerebral infarction without residual deficits; Z91.19 Patient's noncompliance with other medical treatment and regimen; Z68.30 Body mass index [BMI] 30.0-30.9, adult
CPT/HCPCS: 36415; 71045; 80053; 80202; 81001; 82962; 83605; 83735; 83880; 84100; 84145; 84439; 84443; 84481; 84484; 85025; 85379; 85384; 85610; 87040; 87205; 93005; 93308; 96365; 96375; J0692; J1644; J1815; J1956; J3370; J7040; 99285-25

== ENCOUNTER 2018-09-15 07:17 | Inpatient (IN) | payer MEDICARE ==
[~2018-09-15] VITALS: Ht 175.3 cm; Wt 76.3 kg
[~2018-09-15 07:17] MED LIST changes: +AMOX1TAB58 PO; +ASPI-630 PO; +BUDE0.5A NEB; +CARV3.1210 PO; +IPRA3AMP29 NEB; +Pantoprazole PO; +TICA90TA PO; +TRAZ-86 PO
--- NOTE | 2018-09-15 07:40 | PHYS DOC ---
Past Medical History Past Medical History: Diabetes-Type II, High Cholesterol, Hypertension, Renal Failure Additional Past Medical Histor: cardiac arrest Past Surgical History: Other Additional Past Surgical Histo: AV SHUNT RUE, CARDIAC STENT Alcohol Use: None Drug Use: None Adult General Chief Complaint Chief Complaint: CHEST PAIN HPI HPI Patient is a 58 year old male was brought here by EMS from the dialysis center due to his right-sided chest pain that radiated to his back while he was having dialysis. Patient had trouble breathing as well. Patient was given a dose of nitroglycerin, 325 mg of aspirin by ems. the patient said the chest pain is resolved at this time. He denies any cough or fever. Patient said he was doing okay yesterday. Patient had end-stage renal failure, on hemodialysis every Tuesday, Tuesday, Tuesday. Patient had a full session of dialysis on last Tuesday, NO DIALYSIS ON TUESDAY. About 2 weeks ago, patient had a cardiac arrest during dialysis as well, was found to have OK, HAD stent placement. Review of Systems Review of Systems Constitutional: Denies fever or chills [] Eyes: Denies change in visual acuity, redness, or eye pain [] HENT: Denies nasal congestion or sore throat [] Respiratory: Denies cough or shortness of breath [] Cardiovascular: POSITIVE FOR CHEST PAIN AND SHORTNESS OF AIR. GI: Denies abdominal pain, nausea, vomiting, bloody stools or diarrhea [] : Denies dysuria or hematuria [] Musculoskeletal: Denies back pain or joint pain [] Integument: Denies rash or skin lesions [] Neurologic: Denies headache, focal weakness or sensory changes [] Endocrine: Denies polyuria or polydipsia [] All other systems were reviewed and found to be within normal limits, except as documented in this note. Allergies Allergies Allergies Coded Allergies Type Severity Reaction Last Updated Verified atorvastatin Allergy Intermediate "I go blind" 12/03/17 Yes Physical Exam Physical Exam Constitutional: Well developed, well nourished, no acute distress, non-toxic appearance. [] HENT: Normocephalic, atraumatic, bilateral external ears normal, oropharynx moist, no oral exudates, nose normal. [] Eyes: PERRLA, EOMI, conjunctiva normal, no discharge. [] Neck: Normal range of motion, no tenderness, supple, no stridor. [] Cardiovascular:Heart rate regular rhythm, no murmur [] Lungs & Thorax: Bilateral breath sounds clear to auscultation [] Abdomen: Bowel sounds normal, soft, no tenderness, no masses, no pulsatile masses. [] Skin: Warm, dry, no erythema, no rash. [] Back: No tenderness, no CVA tenderness. [] Extremities: No tenderness, no cyanosis, no clubbing, ROM intact, GRADE 2 PLUS PITTING EDEMA IN LOWER EXTREMITIES. Neurologic: Alert and oriented X 3, normal motor function, normal sensory function, no focal deficits noted. [] Psychologic: Affect normal, judgement normal, mood normal. [] Current Patient Data Vital Signs Vital Signs Date Time Temp Pulse Resp B/P (MAP) Pulse Ox O2 Delivery O2 Flow Rate FiO2 09/15/18 07:26 97.9 77 16 147/92 (110) 97 97.9 Lab Values Laboratory Tests Test 09/15/18 07:39 White Blood Count 6.0 x10^3/uL (4.0-11.0) Red Blood Count 3.20 x10^6/uL (4.30-5.70) L Hemoglobin 9.6 g/dL (13.0-17.5) L Hematocrit 28.2 % (39.0-53.0) L Mean Corpuscular Volume 88 fL (79-100) Mean Corpuscular Hemoglobin 30 pg (25-35) Mean Corpuscular Hemoglobin Concent 34 g/dL (31-37) Red Cell Distribution Width 20.5 % (11.5-14.5) H Platelet Count 215 x10^3/uL (140-400) Neutrophils (%) (Auto) 52 % (31-73) Lymphocytes (%) (Auto) 26 % (24-48) Monocytes (%) (Auto) 7 % (0-9) Eosinophils (%) (Auto) 13 % (0-3) H Basophils (%) (Auto) 2 % (0-3) Neutrophils # (Auto) 3.1 x10^3uL (1.8-7.7) Lymphocytes # (Auto) 1.6 x10^3/uL (1.0-4.8) Monocytes # (Auto) 0.4 x10^3/uL (0.0-1.1) Eosinophils # (Auto) 0.8 x10^3/uL (0.0-0.7) H Basophils # (Auto) 0.1 x10^3/uL (0.0-0.2) Platelet Estimate Adequate (ADEQUATE) Polychromasia Slight Basophilic Stippling Present Anisocytosis Slight Prothrombin Time 13.6 SEC (11.7-14.0) Prothrombin Time INR 1.1 (0.8-1.1) PTT 33 SEC (24-38) Sodium Level 139 mmol/L (136-145) Potassium Level 3.9 mmol/L (3.5-5.1) Chloride Level 100 mmol/L (98-107) Carbon Dioxide Level 28 mmol/L (21-32) Anion Gap 11 (6-14) Blood Urea Nitrogen 51 mg/dL (8-26) H Creatinine 5.6 mg/dL (0.7-1.3) H Estimated GFR (Cockcroft-Gault) 10.6 BUN/Creatinine Ratio 9 (6-20) Glucose Level 96 mg/dL (70-99) Calcium Level 8.5 mg/dL (8.5-10.1) Magnesium Level 2.0 mg/dL (1.8-2.4) Total Bilirubin 0.4 mg/dL (0.2-1.0) Aspartate Amino Transferase (AST) 16 U/L (15-37) Alanine Aminotransferase (ALT) 14 U/L (16-63) L Alkaline Phosphatase 118 U/L (46-116) H Creatine Kinase 69 U/L (39-308) Creatine Kinase MB (Mass) 5.6 ng/mL (0.0-3.6) H Creatine Kinase MB Relative Index % (0-4) Troponin I Quantitative 0.024 ng/mL (0.000-0.055) HD-Nwm-L-Type Natriuretic Peptide > 62098 pg/mL (0-124) H Total Protein 7.2 g/dL (6.4-8.2) Albumin 3.0 g/dL (3.4-5.0) L Albumin/Globulin Ratio 0.7 (1.0-1.7) L Lipase 67 U/L (73-393) L Laboratory Tests 09/15/18 07:39 Laboratory Tests 09/15/18 07:39 EKG EKG EKG: RATE OF 76 BPM, SINUS RHYTHM, NO STEM, READ BY THIS PHYSICIAN AT 0730 Radiology/Procedures Radiology/Procedures [][facility] [address] [place] [address] IMAGING REPORT Signed PATIENT: SEBASTIAN ANGULO ACCOUNT: [id number] : 1960 LOCATION: ER AGE: 58 SEX: M EXAM STATUS: REG ER ORD. PHYSICIAN: MICHELLE GUTIERREZ DO REASON: chest pain PROCEDURE: PORTABLE CHEST 1V EXAM: AP View of the chest DATE: 09/15/2018 7:25 AM INDICATION: CHEST PAIN THIS AM, SOA COMPARISON: 09/09/2018, 09/05/2018 FINDINGS: Moderate cardiomegaly. Bibasilar parenchymal airspace opacities with small bilateral pleural effusions are seen. No pneumothorax. IMPRESSION: Bibasilar parenchymal airspace opacities may represent atelectasis or consolidative process such as pneumonia. Bilateral pleural effusions are seen. Electronically signed by: Marcin Bangura MD (09/15/2018 8:19 AM) [facility] DICTATED and SIGNED BY: MARCIN BANGURA MD DATE: 09/15/18 0818 Course & Med Decision Making Course & Med Decision Making Pertinent Labs and Imaging studies reviewed. (See chart for details) [] Dragon Disclaimer Dragon Disclaimer This electronic medical record was generated, in whole or in part, using a voice recognition dictation system. Departure Departure Impression: Primary Impression: Chest pain Disposition: ADMITTED INPATIENT Admitting Physician: Xie. Vargas Condition: STABLE Referrals: SOLO NUNO MD (PCP) MICHELLE GUTIERREZ DO Sep 15, 2018 07:40
[2018-09-15 07:53] LABS: BASO # 0.1 x10^3/uL (0.0-0.2); BASO % 2 % (0-3); EOS # 0.8 x10^3/uL (0.0-0.7); EOS % 13 % (0-3); HEMATOCRIT 28.2 % (39.0-53.0); HEMOGLOBIN 9.6 g/dL (13.0-17.5); LYMPH # 1.6 x10^3/uL (1.0-4.8); LYMPH % 26 % (24-48); MEAN CORPUSCULAR HEMOGLOBIN 30 pg (25-35); MEAN CORPUSCULAR HGB CONC 34 g/dL (31-37); MEAN CORPUSCULAR VOLUME 88 fL (79-100); MONO # 0.4 x10^3/uL (0.0-1.1); MONO % 7 % (0-9); NEUT # 3.1 x10^3uL (1.8-7.7); NEUT % 52 % (31-73); PLATELET COUNT 215 x10^3/uL (140-400); RED CELL DISTRIBUTION WIDTH 20.5 % (11.5-14.5)
[2018-09-15 08:03] LABS: PROTHROMBIN TIME PATIENT 13.6 SEC (11.7-14.0)
[2018-09-15 08:18] LABS: CALCIUM 8.5 mg/dL (8.5-10.1); CREATININE 5.6 mg/dL (0.7-1.3); GFR 10.6; POTASSIUM 3.9 mmol/L (3.5-5.1)
[2018-09-15 08:21] LABS: ALBUMIN/GLOBULIN RATIO 0.7 (1.0-1.7); TOTAL BILIRUBIN 0.4 mg/dL (0.2-1.0); TOTAL PROTEIN 7.2 g/dL (6.4-8.2)
--- NOTE | 2018-09-15 08:21 | EKG ---
[facility] [address] [place] [address] Test Date: 2018-09-15 Test Time: 07:28:22 Pat Name: SEBASTIAN ANGULO Department: Room: Gender: M Quote Clerk: : 1960 Requested By: MICHELLE GUTIERREZ Order Number: [id number] Reading MD: Manjinder Miguel MD Measurements Intervals [place] Rate: 76 P: 34 DC: 176 QRS: -6 QRSD: 116 T: 42 QT: 404 QTc: 454 Interpretive Statements SINUS RHYTHM rbbb non-specific st/t changes Electronically Signed On 09-15-2018 16:41:26 PEDIATRIC LPN by Manjinder Miguel MD
--- NOTE | 2018-09-15 08:23 | RAD ---
EXAM: AP View of the chest DATE: 09/15/2018 7:25 AM INDICATION: CHEST PAIN THIS AM, SOA COMPARISON: 09/09/2018, 09/05/2018 FINDINGS: Moderate cardiomegaly. Bibasilar parenchymal airspace opacities with small bilateral pleural effusions are seen. No pneumothorax. IMPRESSION: Bibasilar parenchymal airspace opacities may represent atelectasis or consolidative process such as pneumonia. Bilateral pleural effusions are seen. Electronically signed by: Marcin Beltran MD (09/15/2018 8:19 AM) [facility]
[2018-09-15 08:27] LABS: CREATINE KINASE 69 U/L (39-308)
[2018-09-15 08:42] LABS: ANISOCYTOSIS SLIGHT; PLT ESTIMATE ADEQUATE (ADEQUATE); POLYCHROMASIA SLIGHT
[2018-09-15] MEDS ORDERED: ONDANSETRON PF 4 MG/2 ML VIAL. IV PRN ×2 (09:15→13:00)
[2018-09-15] MEDS ORDERED: DEXTROSE 50% 25 GM / 50ML DISP.SYRIN. IV PRN ×3 (11:30→13:00)
[2018-09-15] MEDS ORDERED: traZODone 100 MG TABLET. PO PRN (11:30)
[2018-09-15] MEDS ORDERED: FERR325T14 PO (11:59)
[2018-09-15] MEDS ORDERED: METO10TA81 PO (11:59)
[2018-09-15] MEDS ORDERED: LEVO175T5 PO (11:59)
[2018-09-15 12:00] VITALS: BP 191/91
[2018-09-15] MEDS ORDERED: LEVOTHYROXINE 137 MCG TABLET PO SCH (12:00)
[2018-09-15] MEDS: ASPIRIN CHEWABLE 81 MG TABLET. PO SCH (12:00)
[2018-09-15] MEDS: INSULIN LISPRO 300 UNITS/3 ML INSULN.PEN. SQ SCH ×2 (12:00→17:00)
[2018-09-15] MEDS: FERROUS SULFATE 325 MG TABLET. PO SCH ×2 (12:07→20:40)
[2018-09-15] MEDS: PANTOPRAZOLE 40 MG TABLET.DR. PO SCH (12:07)
[2018-09-15] MEDS: TICAGRELOR 90 MG TABLET. PO SCH ×2 (12:07→20:39)
[2018-09-15] MEDS ORDERED: C.DIFF MED SCREEN BY RX. MC ONE (12:45)
--- NOTE | 2018-09-15 12:55 | PDOC1 ---
History and Physical Date of Admission Date of Admission 09/15/18 Identification/Chief Complaint Chief Complaint chest pain Source Source: Caregiver, Chart review, Patient History of Present Illness History of Present Illness HPI Patient is a 58 year old male was brought here by EMS from the dialysis center due to his left side chest pain. pt was dced here end of Jul with 2 stents for LA. since then, pt said always has some sob. he was also dced here 1 week ago for N/V. PT said he has intermittent chest pain sometime and early AM , non exertional . 1h after HD, he felt severe left side chest pain, no radiating, has some sob. no diaphoresis, N/V. as per ERP, Patient was given a dose of nitroglycerin, 325 mg of aspirin by ems. the patient said the chest pain is resolved at this time. DEnies fever, chills, cough, N/V. was not feeling well on Tue and missed his HD. BP high 200 systolic in ER. Past Medical History Cardiovascular: CAD, HTN, Hyperlipidemia Pulmonary: Other GI: GERD Heme/Onc: Anemia NOS Hepatobiliary: No pertinent hx Psych: No pertinent hx Rheumatologic: No pertinent hx Infectious disease: No pertinent hx Renal/: Chronic renal failure Endocrine: Diabetes, Hypothyroidism, Hyperparathyroidism Past Surgical History Past Surgical History: Other Family History Family History: Diabetes, Hypertension Social History Smoke: Quit (for 6ms) ALCOHOL: none Drugs: None Current Problem List Problem List Problems Medical Problems: (1) Chest pain Status: Acute Current Medications Current Medications Current Medications Medications (Trade) Dose Ordered Sig/Celi Start Time Stop Time Status Last Admin Dose Admin Albuterol/ Ipratropium (Duoneb) 3 ml RTQID 09/15/18 12:00 Aspirin (Children'S Aspirin) 81 mg DAILYWBKFT 09/15/18 12:00 Budesonide (Pulmicort) 0.5 mg RTBID 09/15/18 20:00 Carvedilol (Coreg) 3.125 mg BIDWMEALS 09/15/18 17:00 Dextrose (Dextrose 50%-Water Syringe) 12.5 gm PRN Q15MIN PRN 09/15/18 11:30 UNV Ergocalciferol (Vitamin D2) 50,000 unit WEEKLY 09/16/18 09:00 Ferrous Sulfate (Feosol) 325 mg TIDWMEALS 09/15/18 12:00 09/15/18 12:07 325 MG Insulin Glargine (Lantus) 15 units QHS 09/15/18 21:00 Insulin Human Lispro (HumaLOG) 0-9 UNITS TIDWMEALS 09/15/18 12:00 Levothyroxine Sodium (Synthroid) 137 mcg DAILY07 09/15/18 12:00 Ondansetron HCl (Zofran) 4 mg PRN Q8HRS PRN 09/15/18 09:15 09/16/18 09:14 Pantoprazole Sodium (Protonix) 40 mg DAILYAC 09/15/18 12:00 09/15/18 12:07 40 MG Pharmacy Consult (C.diff Med Screen By Rx) 1 each 1X ONCE 09/15/18 12:45 09/15/18 12:46 UNV Ticagrelor (Brilinta) 90 mg BID 09/15/18 12:00 09/15/18 12:07 90 MG Trazodone HCl (Desyrel) 100 mg PRN QHS PRN 09/15/18 11:30 Allergies Allergies Allergies Coded Allergies Type Severity Reaction Last Updated Verified atorvastatin Allergy Intermediate "I go blind" 12/03/17 Yes ROS Review of System CONSTITUTIONAL: No fever or chills EYES: No recent changes SKIN: No rash or itching CARDIOVASCULAR: No chest pain, syncope, palpitations, or edema RESPIRATORY: No SOB or cough GASTROINTESTINAL: No nausea, vomiting or abdominal pain NEUROLOGICAL: No headaches or weakness ENDOCRINE: No cold or heat intolerance GENITOURINARY: No urgency or frequency of urination MUSCULOSKELETAL: No back pain or joint pain LYMPHATICS: No enlarged lymph nodes PSYCHIATRIC: No anxiety or depression Physical Exam Physical Exam GEN.: No apparent distress. Alert and oriented. HEENT: Head is normocephalic, atraumatic NECK: Supple. LUNGS: bl mild decreased bs. no wheezing. left side upper chest + tenderness. HEART: RRR, S1, S2 present. Peripheral pulses intact ABDOMEN: Soft, nontender. Positive bowel sounds. EXTREMITIES: Without any cyanosis. bl legs 1+ edema. NEUROLOGIC: Normal speech, normal tone PSYCHIATRIC: Normal affect, normal mood. SKIN: No ulcerations Vitals Vitals Vital Signs Date Time Temp Pulse Resp B/P (MAP) Pulse Ox O2 Delivery O2 Flow Rate FiO2 09/15/18 12:25 Room Air 09/15/18 12:00 96.0 75 16 191/91 (124) 97 96.0 Labs Labs Laboratory Tests Test 09/15/18 07:39 White Blood Count 6.0 x10^3/uL (4.0-11.0) Red Blood Count 3.20 x10^6/uL (4.30-5.70) Hemoglobin 9.6 g/dL (13.0-17.5) Hematocrit 28.2 % (39.0-53.0) Mean Corpuscular Volume 88 fL (79-100) Mean Corpuscular Hemoglobin 30 pg (25-35) Mean Corpuscular Hemoglobin Concent 34 g/dL (31-37) Red Cell Distribution Width 20.5 % (11.5-14.5) Platelet Count 215 x10^3/uL (140-400) Neutrophils (%) (Auto) 52 % (31-73) Lymphocytes (%) (Auto) 26 % (24-48) Monocytes (%) (Auto) 7 % (0-9) Eosinophils (%) (Auto) 13 % (0-3) Basophils (%) (Auto) 2 % (0-3) Neutrophils # (Auto) 3.1 x10^3uL (1.8-7.7) Lymphocytes # (Auto) 1.6 x10^3/uL (1.0-4.8) Monocytes # (Auto) 0.4 x10^3/uL (0.0-1.1) Eosinophils # (Auto) 0.8 x10^3/uL (0.0-0.7) Basophils # (Auto) 0.1 x10^3/uL (0.0-0.2) Platelet Estimate Adequate (ADEQUATE) Polychromasia Slight Basophilic Stippling Present Anisocytosis Slight Prothrombin Time 13.6 SEC (11.7-14.0) Prothromb Time International Ratio 1.1 (0.8-1.1) Activated Partial Thromboplast Time 33 SEC (24-38) Sodium Level 139 mmol/L (136-145) Potassium Level 3.9 mmol/L (3.5-5.1) Chloride Level 100 mmol/L (98-107) Carbon Dioxide Level 28 mmol/L (21-32) Anion Gap 11 (6-14) Blood Urea Nitrogen 51 mg/dL (8-26) Creatinine 5.6 mg/dL (0.7-1.3) Estimated GFR (Cockcroft-Gault) 10.6 BUN/Creatinine Ratio 9 (6-20) Glucose Level 96 mg/dL (70-99) Calcium Level 8.5 mg/dL (8.5-10.1) Magnesium Level 2.0 mg/dL (1.8-2.4) Total Bilirubin 0.4 mg/dL (0.2-1.0) Aspartate Amino Transf (AST/SGOT) 16 U/L (15-37) Alanine Aminotransferase (ALT/SGPT) 14 U/L (16-63) Alkaline Phosphatase 118 U/L (46-116) Creatine Kinase 69 U/L (39-308) Creatine Kinase MB (Mass) 5.6 ng/mL (0.0-3.6) Creatine Kinase MB Relative Index % (0-4) Troponin I Quantitative 0.024 ng/mL (0.000-0.055) OK-Mmi-Y-Type Natriuretic Peptide > 85242 pg/mL (0-124) Total Protein 7.2 g/dL (6.4-8.2) Albumin 3.0 g/dL (3.4-5.0) Albumin/Globulin Ratio 0.7 (1.0-1.7) Lipase 67 U/L (73-393) Laboratory Tests Test 09/15/18 07:39 White Blood Count 6.0 x10^3/uL (4.0-11.0) Red Blood Count 3.20 x10^6/uL (4.30-5.70) Hemoglobin 9.6 g/dL (13.0-17.5) Hematocrit 28.2 % (39.0-53.0) Mean Corpuscular Volume 88 fL (79-100) Mean Corpuscular Hemoglobin 30 pg (25-35) Mean Corpuscular Hemoglobin Concent 34 g/dL (31-37) Red Cell Distribution Width 20.5 % (11.5-14.5) Platelet Count 215 x10^3/uL (140-400) Neutrophils (%) (Auto) 52 % (31-73) Lymphocytes (%) (Auto) 26 % (24-48) Monocytes (%) (Auto) 7 % (0-9) Eosinophils (%) (Auto) 13 % (0-3) Basophils (%) (Auto) 2 % (0-3) Neutrophils # (Auto) 3.1 x10^3uL (1.8-7.7) Lymphocytes # (Auto) 1.6 x10^3/uL (1.0-4.8) Monocytes # (Auto) 0.4 x10^3/uL (0.0-1.1) Eosinophils # (Auto) 0.8 x10^3/uL (0.0-0.7) Basophils # (Auto) 0.1 x10^3/uL (0.0-0.2) Platelet Estimate Adequate (ADEQUATE) Polychromasia Slight Basophilic Stippling Present Anisocytosis Slight Prothrombin Time 13.6 SEC (11.7-14.0) Prothromb Time International Ratio 1.1 (0.8-1.1) Activated Partial Thromboplast Time 33 SEC (24-38) Sodium Level 139 mmol/L (136-145) Potassium Level 3.9 mmol/L (3.5-5.1) Chloride Level 100 mmol/L (98-107) Carbon Dioxide Level 28 mmol/L (21-32) Anion Gap 11 (6-14) Blood Urea Nitrogen 51 mg/dL (8-26) Creatinine 5.6 mg/dL (0.7-1.3) Estimated GFR (Cockcroft-Gault) 10.6 BUN/Creatinine Ratio 9 (6-20) Glucose Level 96 mg/dL (70-99) Calcium Level 8.5 mg/dL (8.5-10.1) Magnesium Level 2.0 mg/dL (1.8-2.4) Total Bilirubin 0.4 mg/dL (0.2-1.0) Aspartate Amino Transf (AST/SGOT) 16 U/L (15-37) Alanine Aminotransferase (ALT/SGPT) 14 U/L (16-63) Alkaline Phosphatase 118 U/L (46-116) Creatine Kinase 69 U/L (39-308) Creatine Kinase MB (Mass) 5.6 ng/mL (0.0-3.6) Creatine Kinase MB Relative Index % (0-4) Troponin I Quantitative 0.024 ng/mL (0.000-0.055) FK-Kgb-V-Type Natriuretic Peptide > 94671 pg/mL (0-124) Total Protein 7.2 g/dL (6.4-8.2) Albumin 3.0 g/dL (3.4-5.0) Albumin/Globulin Ratio 0.7 (1.0-1.7) Lipase 67 U/L (73-393) VTE Prophylaxis Ordered VTE Prophylaxis Devices: Yes VTE Pharmacological Prophylaxi: Yes Assessment/Plan Assessment/Plan chest pain, could 2/2 fluid overloaded , HTN urgency, chest wall tenderness. ESRD on HD wmf, MISSED Hd wed recent CAD with stent at RCA, LCx HTN urgency dm2 on insulin HLD previous smoker. small bl pleural effusion plan: card, renal consult, cont HD EKG no acute changes, 1st trop neg, doubt CAD, could be the reasons as above. resume home meds pt complain that nurses always didnot update his home meds cont lantus 15u qhs, ssi only for now ,hold humalog for now cycle CE dvt ppx JANNY ORELLANA MD Sep 15, 2018 12:55
[2018-09-15] MEDS ORDERED: DOCUSATE SODIUM 100 MG CAPSULE. PO PRN (13:00)
[2018-09-15] MEDS ORDERED: hydrALAZINE 20 MG/ML VIAL. IVP PRN (13:00)
[2018-09-15] MEDS ORDERED: ACETAMINOPHEN 325 MG TABLET. PO PRN (13:00)
[2018-09-15] MEDS ORDERED: MORPHINE SULFATE 2 MG/ML VIAL. IV PRN (13:00)
[2018-09-15] MEDS ORDERED: traMADol 50 MG TABLET PO PRN (13:00)
[2018-09-15] MEDS: HEPARIN for SUB-Q USE 5,000 UNIT/ML VIAL. SQ SCH ×2 (14:00→22:04)
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
[2018-09-15 14:29] VITALS: BP 191/84
[2018-09-15] MEDS ORDERED: amLODIPine BESYLATE 10 MG TABLET PO ONE (14:30)
[2018-09-15 14:52] LABS: CHOLESTEROL/HDL RATIO 1.9
--- NOTE | 2018-09-15 15:20 | PDOC2 ---
CONSULT Date of Consult Date of Consult DATE: 09/15/18 TIME: 15:00 Reason for Consult Reason for Consult: ESRD on HD Source Source: Chart review, Patient History of Present Illness Reason for Visit: Patient is a 58 year old CM was brought here by EMS from the dialysis center due to his left side chest pain. He was on Hd for approx an hr and started to have CP He has had recent muliple hospitalizations s/p stents x2 for ME in Jul 2018. Has been c/o SOB . He was here recently for N/V CP started this am but worse 1 hr in HD, severe left side chest pain, no radiating, no diaphoresis, N/V. Patient was given a dose of nitroglycerin, 325 mg of aspirin by ems. the patient said the chest pain is resolved at this time. Denies fever, chills, cough, N/V. He was not feeling well on Tue and missed his HD. BP high 200 systolic in ER. Currently No CP, No SOB Past Medical History Cardiovascular: CAD, HTN, Hyperlipidemia Pulmonary: Other GI: GERD Heme/Onc: Anemia NOS Hepatobiliary: No pertinent hx Psych: No pertinent hx Musculoskeletal: Osteoarthritis Rheumatologic: No pertinent hx Infectious disease: No pertinent hx Renal/: Chronic renal failure Endocrine: Diabetes, Hypothyroidism, Hyperparathyroidism Past Surgical History Past Surgical History: Other Family History Family History: Diabetes, Hypertension Social History No ALCOHOL: none Drugs: None Lives: with Family Current Problem List Problem List Problems Medical Problems: (1) Chest pain Status: Acute Current Medications Current Medications Current Medications Ondansetron HCl (Zofran) 4 mg PRN Q8HRS PRN IV NAUSEA/VOMITING; Start at 09:15; Stop 09/15/18 at 12:54; Status DC Aspirin (Children'S Aspirin) 81 mg DAILYWBKFT PO ; Start 09/15/18 at 12:00 Budesonide (Pulmicort) 0.5 mg RTBID NEB ; Start 09/15/18 at 20:00 Carvedilol (Coreg) 3.125 mg BIDWMEALS PO ; Start 09/15/18 at 17:00 Ergocalciferol (Vitamin D2) 50,000 unit WEEKLY PO ; Start 09/16/18 at 09:00 Ferrous Sulfate (Feosol) 325 mg TIDWMEALS PO Last administered on 09/15/18at 12 :07; Start 09/15/18 at 12:00 Insulin Glargine (Lantus) 15 units QHS SQ ; Start 09/15/18 at 21:00 Albuterol/ Ipratropium (Duoneb) 3 ml RTQID NEB ; Start 09/15/18 at 12:00 Levothyroxine Sodium (Synthroid) 137 mcg DAILY07 PO ; Start 09/15/18 at 12:00 Ticagrelor (Brilinta) 90 mg BID PO Last administered on 09/15/18at 12:07; Start 09/15/18 at 12:00 Trazodone HCl (Desyrel) 100 mg PRN QHS PRN PO INSOMNIA; Start 09/15/18 at 11: 30 Pantoprazole Sodium (Protonix) 40 mg DAILYAC PO Last administered on at 12:07; Start 09/15/18 at 12:00 Insulin Human Lispro (HumaLOG) 0-9 UNITS TIDWMEALS SQ ; Start 09/15/18 at 12:00 Dextrose (Dextrose 50%-Water Syringe) 12.5 gm PRN Q15MIN PRN IV SEE COMMENTS; Start 09/15/18 at 11:30; Stop 09/15/18 at 12:56; Status DC Dextrose (Dextrose 50%-Water Syringe) 12.5 gm PRN Q15MIN PRN IV SEE COMMENTS; Start 09/15/18 at 11:30; Status UNV Pharmacy Consult (C.diff Med Screen By Rx) 1 each 1X ONCE [facility] ; Start 09/15/18 at 12:45; Stop 09/15/18 at 12:46; Status DC Acetaminophen (Tylenol) 650 mg PRN Q6HRS PRN PO FEVER; Start 09/15/18 at 13:00 Ondansetron HCl (Zofran) 4 mg PRN Q6HRS PRN IV NAUSEA/VOMITING; Start at 13:00 Morphine Sulfate (Morphine Sulfate) 2 mg PRN Q2HR PRN IV MODERATE TO SEVERE PAIN; Start 09/15/18 at 13:00 Tramadol HCl (Ultram) 50 mg PRN Q6HRS PRN PO MILD TO MODERATE PAIN; Start at 13:00 Hydralazine HCl (Apresoline Inj) 10 mg PRN Q4HRS PRN IVP ELEVATED BP, SEE COMMENTS; Start 09/15/18 at 13:00 Docusate Sodium (Colace) 100 mg PRN DAILY PRN PO CONSTIPATION; Start 09/15/18 at 13:00 Insulin Human Lispro (HumaLOG) 0-9 UNITS TIDWMEALS SQ ; Start 09/15/18 at 17:00 Dextrose (Dextrose 50%-Water Syringe) 12.5 gm PRN Q15MIN PRN IV SEE COMMENTS; Start 09/15/18 at 13:00 Heparin Sodium (Porcine) (Heparin Sodium) 5,000 unit Q8HRS SQ ; Start 09/15/18 at 14:00 Amlodipine Besylate (Norvasc) 10 mg 1X ONCE PO ; Start 09/15/18 at 14:30; Stop 09/15/18 at 14:31; Status DC Active Scripts Active [Pantoprazole] 40 MG Tablet.dr 40 Mg PO DAILYAC 30 Days Trazodone Hcl 100 Mg Tablet 100 Mg PO PRN QHS PRN 30 Days Lantus Solostar (Insulin Glargine,Hum.rec.anlog) 100 Unit/1 Ml Insuln.pen 15 Units SQ QHS 30 Days Humalog (Insulin Lispro) 100 Unit/1 Ml Insuln.pen 8 Units SQ TIDAC 30 Days Budesonide 0.5 Mg/2 Ml Ampul.neb 0.5 Mg NEB RTBID 30 Days Aspirin 81 Mg Tab.chew 81 Mg PO DAILYWBKFT 30 Days Carvedilol (Carvedilol) 3.125 Mg Tablet 3.125 Mg PO BIDWMEALS 30 Days Duoneb 0.5-3(2.5) Mg/3 Ml (Albuterol/Ipratropium) 3 Ml Ampul.neb 3 Ml NEB RTQID 30 Days Brilinta (Ticagrelor) 90 Mg Tablet 90 Mg PO BID 30 Days Vitamin D2 (Ergocalciferol (Vitamin D2)) 50,000 Unit Capsule 50,000 Unit PO WEEKLY Reported Ferrous Sulfate 325 Mg Tablet 1 Tab PO DAILY Levothyroxine Sodium 175 Mcg Tablet 1 Tab PO DAILY Reglan (Metoclopramide Hcl) 10 Mg Tablet 5 Mg PO BIDAC Dialyvite Tablet (Folic Acid/Vitamin B Comp W-C) 1 Each Tablet 1 Each PO Allergies Allergies: Coded Allergies: atorvastatin (Verified Allergy, Intermediate, "I go blind", 12/03/17) ROS Review of System As per HPI Physical Exam Physical Exam GEN.: No apparent distress. HEENT: OM moist NECK: Supple. LUNGS: bl mild decreased bs, non labored HEART: RRR, S1, S2 present. ABDOMEN: Soft, nontender. EXTREMITIES: bl legs 1+ edema, chronic NEUROLOGIC: Grossly normal SKIN: No rash - No Meyers Vital Signs Vital Signs Date Time Temp Pulse Resp B/P (MAP) Pulse Ox O2 Delivery O2 Flow Rate FiO2 09/15/18 14:29 98.3 84 191/84 (119) 96 Room Air 98.3 09/15/18 12:00 16 Assessment & Plan ESRD - F DARRICK Steward- Dr. Scanlon Developed CP after 1 hr on HD at the unit Labs stable Dialysis Today , discussed with slot supervisor Clinically euvolemic - reports UF 1-2 lts on dialysis Chest pain- s/p PCI/SCOTTY to RCA and LCx On brilinta and ASA ANemia- On FABIAN at OP unit Will not start today as BP significantly elevated HTN: HD today Hx of ICM: recovered with EF at 50-55% Discussed with Pt and RN Labs Labs Laboratory Tests Test 09/15/18 07:39 09/15/18 12:25 White Blood Count 6.0 x10^3/uL (4.0-11.0) Red Blood Count 3.20 x10^6/uL (4.30-5.70) Hemoglobin 9.6 g/dL (13.0-17.5) Hematocrit 28.2 % (39.0-53.0) Mean Corpuscular Volume 88 fL (79-100) Mean Corpuscular Hemoglobin 30 pg (25-35) Mean Corpuscular Hemoglobin Concent 34 g/dL (31-37) Red Cell Distribution Width 20.5 % (11.5-14.5) Platelet Count 215 x10^3/uL (140-400) Neutrophils (%) (Auto) 52 % (31-73) Lymphocytes (%) (Auto) 26 % (24-48) Monocytes (%) (Auto) 7 % (0-9) Eosinophils (%) (Auto) 13 % (0-3) Basophils (%) (Auto) 2 % (0-3) Neutrophils # (Auto) 3.1 x10^3uL (1.8-7.7) Lymphocytes # (Auto) 1.6 x10^3/uL (1.0-4.8) Monocytes # (Auto) 0.4 x10^3/uL (0.0-1.1) Eosinophils # (Auto) 0.8 x10^3/uL (0.0-0.7) Basophils # (Auto) 0.1 x10^3/uL (0.0-0.2) Platelet Estimate Adequate (ADEQUATE) Polychromasia Slight Basophilic Stippling Present Anisocytosis Slight Prothrombin Time 13.6 SEC (11.7-14.0) Prothromb Time International Ratio 1.1 (0.8-1.1) Activated Partial Thromboplast Time 33 SEC (24-38) Sodium Level 139 mmol/L (136-145) Potassium Level 3.9 mmol/L (3.5-5.1) Chloride Level 100 mmol/L (98-107) Carbon Dioxide Level 28 mmol/L (21-32) Anion Gap 11 (6-14) Blood Urea Nitrogen 51 mg/dL (8-26) Creatinine 5.6 mg/dL (0.7-1.3) Estimated GFR (Cockcroft-Gault) 10.6 BUN/Creatinine Ratio 9 (6-20) Glucose Level 96 mg/dL (70-99) Calcium Level 8.5 mg/dL (8.5-10.1) Magnesium Level 2.0 mg/dL (1.8-2.4) Total Bilirubin 0.4 mg/dL (0.2-1.0) Aspartate Amino Transf (AST/SGOT) 16 U/L (15-37) Alanine Aminotransferase (ALT/SGPT) 14 U/L (16-63) Alkaline Phosphatase 118 U/L (46-116) Creatine Kinase 69 U/L (39-308) Creatine Kinase MB (Mass) 5.6 ng/mL (0.0-3.6) Creatine Kinase MB Relative Index % (0-4) Troponin I Quantitative 0.024 ng/mL (0.000-0.055) 0.019 ng/mL (0.000-0.055) [id number]-Type Natriuretic Peptide > 24414 pg/mL (0-124) Total Protein 7.2 g/dL (6.4-8.2) Albumin 3.0 g/dL (3.4-5.0) Albumin/Globulin Ratio 0.7 (1.0-1.7) Triglycerides Level 54 mg/dL (0-150) Cholesterol Level 154 mg/dL (0-200) LDL Cholesterol, Calculated 61 mg/dL (0-100) VLDL Cholesterol, Calculated 11 mg/dL (0-40) Non-HDL Cholesterol Calculated 72 mg/dL (0-129) HDL Cholesterol 82 mg/dL (40-60) Cholesterol/HDL Ratio 1.9 Lipase 67 U/L (73-393) Laboratory Tests Test 09/15/18 07:39 09/15/18 12:25 White Blood Count 6.0 x10^3/uL (4.0-11.0) Red Blood Count 3.20 x10^6/uL (4.30-5.70) Hemoglobin 9.6 g/dL (13.0-17.5) Hematocrit 28.2 % (39.0-53.0) Mean Corpuscular Volume 88 fL (79-100) Mean Corpuscular Hemoglobin 30 pg (25-35) Mean Corpuscular Hemoglobin Concent 34 g/dL (31-37) Red Cell Distribution Width 20.5 % (11.5-14.5) Platelet Count 215 x10^3/uL (140-400) Neutrophils (%) (Auto) 52 % (31-73) Lymphocytes (%) (Auto) 26 % (24-48) Monocytes (%) (Auto) 7 % (0-9) Eosinophils (%) (Auto) 13 % (0-3) Basophils (%) (Auto) 2 % (0-3) Neutrophils # (Auto) 3.1 x10^3uL (1.8-7.7) Lymphocytes # (Auto) 1.6 x10^3/uL (1.0-4.8) Monocytes # (Auto) 0.4 x10^3/uL (0.0-1.1) Eosinophils # (Auto) 0.8 x10^3/uL (0.0-0.7) Basophils # (Auto) 0.1 x10^3/uL (0.0-0.2) Platelet Estimate Adequate (ADEQUATE) Polychromasia Slight Basophilic Stippling Present Anisocytosis Slight Prothrombin Time 13.6 SEC (11.7-14.0) Prothromb Time International Ratio 1.1 (0.8-1.1) Activated Partial Thromboplast Time 33 SEC (24-38) Sodium Level 139 mmol/L (136-145) Potassium Level 3.9 mmol/L (3.5-5.1) Chloride Level 100 mmol/L (98-107) Carbon Dioxide Level 28 mmol/L (21-32) Anion Gap 11 (6-14) Blood Urea Nitrogen 51 mg/dL (8-26) Creatinine 5.6 mg/dL (0.7-1.3) Estimated GFR (Cockcroft-Gault) 10.6 BUN/Creatinine Ratio 9 (6-20) Glucose Level 96 mg/dL (70-99) Calcium Level 8.5 mg/dL (8.5-10.1) Magnesium Level 2.0 mg/dL (1.8-2.4) Total Bilirubin 0.4 mg/dL (0.2-1.0) Aspartate Amino Transf (AST/SGOT) 16 U/L (15-37) Alanine Aminotransferase (ALT/SGPT) 14 U/L (16-63) Alkaline Phosphatase 118 U/L (46-116) Creatine Kinase 69 U/L (39-308) Creatine Kinase MB (Mass) 5.6 ng/mL (0.0-3.6) Creatine Kinase MB Relative Index % (0-4) Troponin I Quantitative 0.024 ng/mL (0.000-0.055) 0.019 ng/mL (0.000-0.055) RH-Kqz-[id number]-Type Natriuretic Peptide > 80529 pg/mL (0-124) Total Protein 7.2 g/dL (6.4-8.2) Albumin 3.0 g/dL (3.4-5.0) Albumin/Globulin Ratio 0.7 (1.0-1.7) Triglycerides Level 54 mg/dL (0-150) Cholesterol Level 154 mg/dL (0-200) LDL Cholesterol, Calculated 61 mg/dL (0-100) VLDL Cholesterol, Calculated 11 mg/dL (0-40) Non-HDL Cholesterol Calculated 72 mg/dL (0-129) HDL Cholesterol 82 mg/dL (40-60) Cholesterol/HDL Ratio 1.9 Lipase 67 U/L (73-393) Review All relevant outside records, renal labs, imaging studies, telemetry/EKG's were reviewed. REBECCA ANGLIN MD Sep 15, 2018 15:20
[2018-09-15] MEDS: IPRATRPIUM/ALBUTEROL 0.5/2.5MG 3 ML NEBU. NEB SCH ×2 (15:24→20:54)
[2018-09-15] MEDS ORDERED: IV NORMAL SALINE 1000ML BAG 1,000 ML IV PRN ×2 (15:43)
[2018-09-15] MEDS ORDERED: DIALYSIS PATIENT. MC PRN ×2 (15:45)
[2018-09-15] MEDS ORDERED: INSULIN LISPRO 300 UNITS/3 ML INSULN.PEN. SQ SCH (17:00)
[2018-09-15 19:00] VITALS: BP 167/85
[2018-09-15] MEDS: BUDESONIDE 0.5 MG/2 ML NEBU. NEB SCH (20:00)
[2018-09-15] MEDS: LACTOBACILLUS RHAMNOSUS GG 1 CAPSULE. PO SCH (20:39)
[2018-09-15] MEDS: CARVEDILOL 3.125 MG TABLET. PO SCH (20:40)
[2018-09-15] MEDS ORDERED: INSULIN GLARGINE 300 UNITS/3 ML INSULN.PEN. SQ SCH (21:00)
[2018-09-15 23:00] VITALS: BP 178/86
[2018-09-16 03:00] VITALS: BP 177/84
[2018-09-16 05:18] LABS: BASO # 0.1 x10^3/uL (0.0-0.2); BASO % 2 % (0-3); EOS # 0.6 x10^3/uL (0.0-0.7); EOS % 12 % (0-3); HEMOGLOBIN 8.7 g/dL (13.0-17.5); LYMPH # 1.7 x10^3/uL (1.0-4.8); LYMPH % 32 % (24-48); MEAN CORPUSCULAR HEMOGLOBIN 30 pg (25-35); MEAN CORPUSCULAR HGB CONC 34 g/dL (31-37); MEAN CORPUSCULAR VOLUME 89 fL (79-100); MONO # 0.6 x10^3/uL (0.0-1.1); MONO % 11 % (0-9); NEUT # 2.3 x10^3uL (1.8-7.7); NEUT % 43 % (31-73); PLATELET COUNT 161 x10^3/uL (140-400); RED BLOOD COUNT 2.92 x10^6/uL (4.30-5.70); RED CELL DISTRIBUTION WIDTH 20.8 % (11.5-14.5); WHITE BLOOD COUNT 5.3 x10^3/uL (4.0-11.0)
[2018-09-16 05:31] LABS: CALCIUM 8.4 mg/dL (8.5-10.1); CREATININE 4.6 mg/dL (0.7-1.3); GFR 13.3; POTASSIUM 5.1 mmol/L (3.5-5.1)
[2018-09-16] MEDS: HEPARIN for SUB-Q USE 5,000 UNIT/ML VIAL. SQ SCH (06:20)
[2018-09-16 07:00] VITALS: BP 166/78
[2018-09-16] MEDS ORDERED: LEVOTHYROXINE 175 MCG TABLET PO SCH (07:00)
[2018-09-16] MEDS: BUDESONIDE 0.5 MG/2 ML NEBU. NEB SCH (07:46)
[2018-09-16] MEDS: IPRATRPIUM/ALBUTEROL 0.5/2.5MG 3 ML NEBU. NEB SCH (07:46)
[2018-09-16 08:54] VITALS: BP 166/78
[2018-09-16] MEDS: ASPIRIN CHEWABLE 81 MG TABLET. PO SCH (08:54)
[2018-09-16] MEDS: FERROUS SULFATE 325 MG TABLET. PO SCH (08:54)
[2018-09-16] MEDS: PANTOPRAZOLE 40 MG TABLET.DR. PO SCH (08:54)
[2018-09-16] MEDS: LACTOBACILLUS RHAMNOSUS GG 1 CAPSULE. PO SCH (08:54)
[2018-09-16] MEDS: CARVEDILOL 3.125 MG TABLET. PO SCH (08:54)
[2018-09-16] MEDS: TICAGRELOR 90 MG TABLET. PO SCH (08:54)
[2018-09-16] MEDS: INSULIN LISPRO 300 UNITS/3 ML INSULN.PEN. SQ SCH (08:58)
[2018-09-16] MEDS ORDERED: ERGOCALCIFEROL (VITAMIN D2) 50,000 UNIT CAPSULE. PO SCH (09:00)
--- NOTE | 2018-09-16 10:57 | PDOC ---
Renal-Progress Notes Subjective Notes Notes STABLE History of Present Illness Hx of present illness BETTER Vitals Vitals Vital Signs Date Time Temp Pulse Resp B/P (MAP) Pulse Ox O2 Delivery O2 Flow Rate FiO2 09/16/18 08:54 74 166/78 09/16/18 08:00 Room Air 09/16/18 07:48 99 09/16/18 07:00 97.8 18 97.8 Weight Weight [ ] I.O. Intake and Output Intake and Output 09/16/18 07:01 Intake Total 1130 ml Balance 1130 ml Intake Oral 1130 ml Labs Labs Laboratory Tests Test 09/15/18 12:25 09/15/18 18:43 09/15/18 21:23 09/16/18 04:33 Troponin I Quantitative 0.019 ng/mL (0.000-0.055) 0.026 ng/mL (0.000-0.055) Glucose (Fingerstick) 267 mg/dL (70-99) White Blood Count 5.3 x10^3/uL (4.0-11.0) Red Blood Count 2.92 x10^6/uL (4.30-5.70) Hemoglobin 8.7 g/dL (13.0-17.5) Hematocrit 26.0 % (39.0-53.0) Mean Corpuscular Volume 89 fL (79-100) Mean Corpuscular Hemoglobin 30 pg (25-35) Mean Corpuscular Hemoglobin Concent 34 g/dL (31-37) Red Cell Distribution Width 20.8 % (11.5-14.5) Platelet Count 161 x10^3/uL (140-400) Neutrophils (%) (Auto) 43 % (31-73) Lymphocytes (%) (Auto) 32 % (24-48) Monocytes (%) (Auto) 11 % (0-9) Eosinophils (%) (Auto) 12 % (0-3) Basophils (%) (Auto) 2 % (0-3) Neutrophils # (Auto) 2.3 x10^3uL (1.8-7.7) Lymphocytes # (Auto) 1.7 x10^3/uL (1.0-4.8) Monocytes # (Auto) 0.6 x10^3/uL (0.0-1.1) Eosinophils # (Auto) 0.6 x10^3/uL (0.0-0.7) Basophils # (Auto) 0.1 x10^3/uL (0.0-0.2) Sodium Level 137 mmol/L (136-145) Potassium Level 5.1 mmol/L (3.5-5.1) Chloride Level 100 mmol/L (98-107) Carbon Dioxide Level 28 mmol/L (21-32) Anion Gap 9 (6-14) Blood Urea Nitrogen 35 mg/dL (8-26) Creatinine 4.6 mg/dL (0.7-1.3) Estimated GFR (Cockcroft-Gault) 13.3 Glucose Level 318 mg/dL (70-99) Calcium Level 8.4 mg/dL (8.5-10.1) Test 09/16/18 07:51 Glucose (Fingerstick) 253 mg/dL (70-99) Review of Systems Constitutional: yes: alert, oriented Ears/Nose/Throat: Yes: no symptom reported Eyes: Yes: no symptom reported Pulmonary: Yes no symptom reported Cardiovascular: Yes no symptom reported Gastrointestional: Yes: no symptom reported Genitourinary: Yes: no symptom reported Musculoskeletal: Yes: no symptom reported Skin: Yes no symptom reported Psychiatric/Neurological: Yes: no symptom reported Physical Exam General Appearance: no apparent distress Skin: warm Respiratory: bilateral CTA Heart: S1S2 Abdomen: soft, bowel sounds present Genitourinary: bladder flat Extremities: pulses present Neurology: alert, oriented Musculoskeletal: Osteoarthritis Assessment Assessment IMP ESRD HTN DM II ANEMIA CHEST PAIN PLAN HD TUESDAY CHEST PAIN W/U WILL FOLLOW LAM ATKINS MD Sep 16, 2018 10:57
--- NOTE | 2018-09-16 11:18 | PDOC ---
PROGRESS NOTES Chief Complaint Chief Complaint chest pain, could 2/2 fluid overloaded , HTN urgency, chest wall tenderness. ESRD on HD wmf, MISSED Hd wed recent CAD with stent at RCA, LCx HTN urgency dm2 on insulin HLD previous smoker. small bl pleural effusion History of Present Illness History of Present Illness Pt. Seen and examined at the bedside spoke with nursing about case. Vitals Vitals Vital Signs Date Time Temp Pulse Resp B/P (MAP) Pulse Ox O2 Delivery O2 Flow Rate FiO2 09/16/18 08:54 74 166/78 09/16/18 08:00 Room Air 09/16/18 07:48 99 09/16/18 07:00 97.8 18 97.8 Physical Exam General: Alert, Oriented X3, Cooperative, No acute distress Heart: Regular rate (SR), Normal S1 Lungs: Crackles, Other Abdomen: Normal bowel sounds Extremities: No cyanosis, Other (1+ bilateral LE pitting edema) Skin: No breakdown, No significant lesion Labs LABS Laboratory Tests Test 09/15/18 12:25 09/15/18 18:43 09/15/18 21:23 09/16/18 04:33 Troponin I Quantitative 0.019 ng/mL (0.000-0.055) 0.026 ng/mL (0.000-0.055) Glucose (Fingerstick) 267 mg/dL (70-99) White Blood Count 5.3 x10^3/uL (4.0-11.0) Red Blood Count 2.92 x10^6/uL (4.30-5.70) Hemoglobin 8.7 g/dL (13.0-17.5) Hematocrit 26.0 % (39.0-53.0) Mean Corpuscular Volume 89 fL (79-100) Mean Corpuscular Hemoglobin 30 pg (25-35) Mean Corpuscular Hemoglobin Concent 34 g/dL (31-37) Red Cell Distribution Width 20.8 % (11.5-14.5) Platelet Count 161 x10^3/uL (140-400) Neutrophils (%) (Auto) 43 % (31-73) Lymphocytes (%) (Auto) 32 % (24-48) Monocytes (%) (Auto) 11 % (0-9) Eosinophils (%) (Auto) 12 % (0-3) Basophils (%) (Auto) 2 % (0-3) Neutrophils # (Auto) 2.3 x10^3uL (1.8-7.7) Lymphocytes # (Auto) 1.7 x10^3/uL (1.0-4.8) Monocytes # (Auto) 0.6 x10^3/uL (0.0-1.1) Eosinophils # (Auto) 0.6 x10^3/uL (0.0-0.7) Basophils # (Auto) 0.1 x10^3/uL (0.0-0.2) Sodium Level 137 mmol/L (136-145) Potassium Level 5.1 mmol/L (3.5-5.1) Chloride Level 100 mmol/L (98-107) Carbon Dioxide Level 28 mmol/L (21-32) Anion Gap 9 (6-14) Blood Urea Nitrogen 35 mg/dL (8-26) Creatinine 4.6 mg/dL (0.7-1.3) Estimated GFR (Cockcroft-Gault) 13.3 Glucose Level 318 mg/dL (70-99) Calcium Level 8.4 mg/dL (8.5-10.1) Test 09/16/18 07:51 Glucose (Fingerstick) 253 mg/dL (70-99) Review of Systems Review of Systems denies chest pain denies shortness of breath Assessment and Plan Assessmemt and Plan Assessment chest pain, could 2/2 fluid overloaded , HTN urgency, chest wall tenderness. ESRD on HD wmf, MISSED Hd wed recent CAD with stent at RCA, LCx HTN urgency dm2 on insulin HLD previous smoker. small bl pleural effusion Plan Cards and Renal on board- continue HD Negative Troponins- doubt CAD resume home meds cont lantus 15u qhs, ssi only for now ,hold humalog for now dvt ppx Discharge dispo: ok for discharge today or tomorrow Comment Review of Relevant I have reviewed the following items yesenia (where applicable) has been applied. Labs Laboratory Tests Test 09/15/18 07:39 09/15/18 12:25 09/15/18 18:43 09/15/18 21:23 White Blood Count 6.0 x10^3/uL (4.0-11.0) Red Blood Count 3.20 x10^6/uL (4.30-5.70) Hemoglobin 9.6 g/dL (13.0-17.5) Hematocrit 28.2 % (39.0-53.0) Mean Corpuscular Volume 88 fL (79-100) Mean Corpuscular Hemoglobin 30 pg (25-35) Mean Corpuscular Hemoglobin Concent 34 g/dL (31-37) Red Cell Distribution Width 20.5 % (11.5-14.5) Platelet Count 215 x10^3/uL (140-400) Neutrophils (%) (Auto) 52 % (31-73) Lymphocytes (%) (Auto) 26 % (24-48) Monocytes (%) (Auto) 7 % (0-9) Eosinophils (%) (Auto) 13 % (0-3) Basophils (%) (Auto) 2 % (0-3) Neutrophils # (Auto) 3.1 x10^3uL (1.8-7.7) Lymphocytes # (Auto) 1.6 x10^3/uL (1.0-4.8) Monocytes # (Auto) 0.4 x10^3/uL (0.0-1.1) Eosinophils # (Auto) 0.8 x10^3/uL (0.0-0.7) Basophils # (Auto) 0.1 x10^3/uL (0.0-0.2) Platelet Estimate Adequate (ADEQUATE) Polychromasia Slight Basophilic Stippling Present Anisocytosis Slight Prothrombin Time 13.6 SEC (11.7-14.0) Prothromb Time International Ratio 1.1 (0.8-1.1) Activated Partial Thromboplast Time 33 SEC (24-38) Sodium Level 139 mmol/L (136-145) Potassium Level 3.9 mmol/L (3.5-5.1) Chloride Level 100 mmol/L (98-107) Carbon Dioxide Level 28 mmol/L (21-32) Anion Gap 11 (6-14) Blood Urea Nitrogen 51 mg/dL (8-26) Creatinine 5.6 mg/dL (0.7-1.3) Estimated GFR (Cockcroft-Gault) 10.6 BUN/Creatinine Ratio 9 (6-20) Glucose Level 96 mg/dL (70-99) Calcium Level 8.5 mg/dL (8.5-10.1) Magnesium Level 2.0 mg/dL (1.8-2.4) Total Bilirubin 0.4 mg/dL (0.2-1.0) Aspartate Amino Transf (AST/SGOT) 16 U/L (15-37) Alanine Aminotransferase (ALT/SGPT) 14 U/L (16-63) Alkaline Phosphatase 118 U/L (46-116) Creatine Kinase 69 U/L (39-308) Creatine Kinase MB (Mass) 5.6 ng/mL (0.0-3.6) Creatine Kinase MB Relative Index % (0-4) Troponin I Quantitative 0.024 ng/mL (0.000-0.055) 0.019 ng/mL (0.000-0.055) 0.026 ng/mL (0.000-0.055) TU-Rht-T-Type Natriuretic Peptide > 01060 pg/mL (0-124) Total Protein 7.2 g/dL (6.4-8.2) Albumin 3.0 g/dL (3.4-5.0) Albumin/Globulin Ratio 0.7 (1.0-1.7) Triglycerides Level 54 mg/dL (0-150) Cholesterol Level 154 mg/dL (0-200) LDL Cholesterol, Calculated 61 mg/dL (0-100) VLDL Cholesterol, Calculated 11 mg/dL (0-40) Non-HDL Cholesterol Calculated 72 mg/dL (0-129) HDL Cholesterol 82 mg/dL (40-60) Cholesterol/HDL Ratio 1.9 Lipase 67 U/L (73-393) Glucose (Fingerstick) 267 mg/dL (70-99) Test 09/16/18 04:33 09/16/18 07:51 White Blood Count 5.3 x10^3/uL (4.0-11.0) Red Blood Count 2.92 x10^6/uL (4.30-5.70) Hemoglobin 8.7 g/dL (13.0-17.5) Hematocrit 26.0 % (39.0-53.0) Mean Corpuscular Volume 89 fL (79-100) Mean Corpuscular Hemoglobin 30 pg (25-35) Mean Corpuscular Hemoglobin Concent 34 g/dL (31-37) Red Cell Distribution Width 20.8 % (11.5-14.5) Platelet Count 161 x10^3/uL (140-400) Neutrophils (%) (Auto) 43 % (31-73) Lymphocytes (%) (Auto) 32 % (24-48) Monocytes (%) (Auto) 11 % (0-9) Eosinophils (%) (Auto) 12 % (0-3) Basophils (%) (Auto) 2 % (0-3) Neutrophils # (Auto) 2.3 x10^3uL (1.8-7.7) Lymphocytes # (Auto) 1.7 x10^3/uL (1.0-4.8) Monocytes # (Auto) 0.6 x10^3/uL (0.0-1.1) Eosinophils # (Auto) 0.6 x10^3/uL (0.0-0.7) Basophils # (Auto) 0.1 x10^3/uL (0.0-0.2) Sodium Level 137 mmol/L (136-145) Potassium Level 5.1 mmol/L (3.5-5.1) Chloride Level 100 mmol/L (98-107) Carbon Dioxide Level 28 mmol/L (21-32) Anion Gap 9 (6-14) Blood Urea Nitrogen 35 mg/dL (8-26) Creatinine 4.6 mg/dL (0.7-1.3) Estimated GFR (Cockcroft-Gault) 13.3 Glucose Level 318 mg/dL (70-99) Calcium Level 8.4 mg/dL (8.5-10.1) Glucose (Fingerstick) 253 mg/dL (70-99) Laboratory Tests Test 09/15/18 12:25 09/15/18 18:43 09/15/18 21:23 09/16/18 04:33 Troponin I Quantitative 0.019 ng/mL (0.000-0.055) 0.026 ng/mL (0.000-0.055) Glucose (Fingerstick) 267 mg/dL (70-99) White Blood Count 5.3 x10^3/uL (4.0-11.0) Red Blood Count 2.92 x10^6/uL (4.30-5.70) Hemoglobin 8.7 g/dL (13.0-17.5) Hematocrit 26.0 % (39.0-53.0) Mean Corpuscular Volume 89 fL (79-100) Mean Corpuscular Hemoglobin 30 pg (25-35) Mean Corpuscular Hemoglobin Concent 34 g/dL (31-37) Red Cell Distribution Width 20.8 % (11.5-14.5) Platelet Count 161 x10^3/uL (140-400) Neutrophils (%) (Auto) 43 % (31-73) Lymphocytes (%) (Auto) 32 % (24-48) Monocytes (%) (Auto) 11 % (0-9) Eosinophils (%) (Auto) 12 % (0-3) Basophils (%) (Auto) 2 % (0-3) Neutrophils # (Auto) 2.3 x10^3uL (1.8-7.7) Lymphocytes # (Auto) 1.7 x10^3/uL (1.0-4.8) Monocytes # (Auto) 0.6 x10^3/uL (0.0-1.1) Eosinophils # (Auto) 0.6 x10^3/uL (0.0-0.7) Basophils # (Auto) 0.1 x10^3/uL (0.0-0.2) Sodium Level 137 mmol/L (136-145) Potassium Level 5.1 mmol/L (3.5-5.1) Chloride Level 100 mmol/L (98-107) Carbon Dioxide Level 28 mmol/L (21-32) Anion Gap 9 (6-14) Blood Urea Nitrogen 35 mg/dL (8-26) Creatinine 4.6 mg/dL (0.7-1.3) Estimated GFR (Cockcroft-Gault) 13.3 Glucose Level 318 mg/dL (70-99) Calcium Level 8.4 mg/dL (8.5-10.1) Test 09/16/18 07:51 Glucose (Fingerstick) 253 mg/dL (70-99) Medications Current Medications Ondansetron HCl (Zofran) 4 mg PRN Q8HRS PRN IV NAUSEA/VOMITING; Start at 09:15; Stop 09/15/18 at 12:54; Status DC Aspirin (Children'S Aspirin) 81 mg DAILYWBKFT PO Last administered on at 08:54; Start 09/15/18 at 12:00 Budesonide (Pulmicort) 0.5 mg RTBID NEB Last administered on 09/16/18at 07:46; Start 09/15/18 at 20:00 Carvedilol (Coreg) 3.125 mg BIDWMEALS PO Last administered on 09/16/18at 08:54 ; Start 09/15/18 at 17:00 Ergocalciferol (Vitamin D2) 50,000 unit WEEKLY PO Last administered on at 08:54; Start 09/16/18 at 09:00 Ferrous Sulfate (Feosol) 325 mg TIDWMEALS PO Last administered on 09/16/18at 08 :54; Start 09/15/18 at 12:00 Insulin Glargine (Lantus) 15 units QHS SQ Last administered on 09/15/18at 21:34 ; Start 09/15/18 at 21:00 Albuterol/ Ipratropium (Duoneb) 3 ml RTQID NEB Last administered on 09/16/18at 07:46; Start 09/15/18 at 12:00 Levothyroxine Sodium (Synthroid) 137 mcg DAILY07 PO ; Start 09/15/18 at 12:00; Stop 09/16/18 at 05:35; Status DC Ticagrelor (Brilinta) 90 mg BID PO Last administered on 09/16/18at 08:54; Start 09/15/18 at 12:00 Trazodone HCl (Desyrel) 100 mg PRN QHS PRN PO INSOMNIA; Start 09/15/18 at 11: 30 Pantoprazole Sodium (Protonix) 40 mg DAILYAC PO Last administered on at 08:54; Start 09/15/18 at 12:00 Insulin Human Lispro (HumaLOG) 0-9 UNITS TIDWMEALS SQ Last administered on at 08:58; Start 09/15/18 at 12:00 Dextrose (Dextrose 50%-Water Syringe) 12.5 gm PRN Q15MIN PRN IV SEE COMMENTS; Start 09/15/18 at 11:30; Stop 09/15/18 at 12:56; Status DC Dextrose (Dextrose 50%-Water Syringe) 12.5 gm PRN Q15MIN PRN IV SEE COMMENTS; Start 09/15/18 at 11:30; Status UNV Pharmacy Consult (C.diff Med Screen By Rx) 1 each 1X ONCE [facility] ; Start 09/15/18 at 12:45; Stop 09/15/18 at 12:46; Status DC Acetaminophen (Tylenol) 650 mg PRN Q6HRS PRN PO FEVER; Start 09/15/18 at 13:00 Ondansetron HCl (Zofran) 4 mg PRN Q6HRS PRN IV NAUSEA/VOMITING; Start at 13:00 Morphine Sulfate (Morphine Sulfate) 2 mg PRN Q2HR PRN IV MODERATE TO SEVERE PAIN; Start 09/15/18 at 13:00 Tramadol HCl (Ultram) 50 mg PRN Q6HRS PRN PO MILD TO MODERATE PAIN; Start at 13:00 Hydralazine HCl (Apresoline Inj) 10 mg PRN Q4HRS PRN IVP ELEVATED BP, SEE COMMENTS; Start 09/15/18 at 13:00 Docusate Sodium (Colace) 100 mg PRN DAILY PRN PO CONSTIPATION; Start 09/15/18 at 13:00 Insulin Human Lispro (HumaLOG) 0-9 UNITS TIDWMEALS SQ ; Start 09/15/18 at 17:00 ; Stop 09/16/18 at 08:11; Status DC Dextrose (Dextrose 50%-Water Syringe) 12.5 gm PRN Q15MIN PRN IV SEE COMMENTS; Start 09/15/18 at 13:00 Heparin Sodium (Porcine) (Heparin Sodium) 5,000 unit Q8HRS SQ Last administered on 09/16/18at 06:20; Start 09/15/18 at 14:00 Amlodipine Besylate (Norvasc) 10 mg 1X ONCE PO Last administered on at 15:02; Start 09/15/18 at 14:30; Stop 09/15/18 at 14:31; Status DC Lactobacillus Rhamnosus (Culturelle) 1 cap BID PO Last administered on at 08:54; Start 09/15/18 at 21:00 Sodium Chloride 1,000 ml @ 1,000 mls/hr Q1H PRN IV hypotension; Start at 15:43; Stop 09/15/18 at 21:42; Status DC Sodium Chloride 1,000 ml @ 400 mls/hr Q2H30M PRN IV PATENCY; Start 09/15/18 at 15:43; Stop 09/16/18 at 03:42; Status DC Info (PHARMACY MONITORING -- do not chart) 1 each PRN DAILY PRN [facility] SEE COMMENTS ; Start 09/15/18 at 15:45; Status UNV Info (PHARMACY MONITORING -- do not chart) 1 each PRN DAILY PRN MC SEE COMMENTS ; Start 09/15/18 at 15:45 Levothyroxine Sodium (Synthroid) 175 mcg DAILY07 PO Last administered on at 06:17; Start 09/16/18 at 07:00 Active Scripts Active [Pantoprazole] 40 MG Tablet.dr 40 Mg PO DAILYAC 30 Days Trazodone Hcl 100 Mg Tablet 100 Mg PO PRN QHS PRN 30 Days Lantus Solostar (Insulin Glargine,Hum.rec.anlog) 100 Unit/1 Ml Insuln.pen 15 Units SQ QHS 30 Days Humalog (Insulin Lispro) 100 Unit/1 Ml Insuln.pen 8 Units SQ TIDAC 30 Days Budesonide 0.5 Mg/2 Ml Ampul.neb 0.5 Mg NEB RTBID 30 Days Aspirin 81 Mg Tab.chew 81 Mg PO DAILYWBKFT 30 Days Carvedilol (Carvedilol) 3.125 Mg Tablet 3.125 Mg PO BIDWMEALS 30 Days Duoneb 0.5-3(2.5) Mg/3 Ml (Albuterol/Ipratropium) 3 Ml Ampul.neb 3 Ml NEB RTQID 30 Days Brilinta (Ticagrelor) 90 Mg Tablet 90 Mg PO BID 30 Days Vitamin D2 (Ergocalciferol (Vitamin D2)) 50,000 Unit Capsule 50,000 Unit PO WEEKLY Reported Ferrous Sulfate 325 Mg Tablet 1 Tab PO DAILY Levothyroxine Sodium 175 Mcg Tablet 1 Tab PO DAILY Reglan (Metoclopramide Hcl) 10 Mg Tablet 5 Mg PO BIDAC Dialyvite Tablet (Folic Acid/Vitamin B Comp W-C) 1 Each Tablet 1 Each PO Vitals/I & O Vital Sign - Last 24 Hours 09/15/18 09/15/18 09/15/18 09/15/18 12:00 12:25 14:29 15:02 Temp 96.0 98.3 96.0 98.3 Pulse 75 84 84 Resp 16 B/P (MAP) 191/91 (124) 191/84 (119) 191/84 Pulse Ox 97 96 O2 Delivery Room Air Room Air Room Air 09/15/18 09/15/18 09/15/18 09/15/18 15:28 19:00 19:51 20:40 Temp 98.0 98.0 Pulse 85 84 B/P (MAP) 167/85 (112) 191/84 Pulse Ox 93 97 O2 Delivery Room Air Room Air Room Air 09/15/18 09/16/18 09/16/18 09/16/18 23:00 03:00 07:00 07:48 Temp 98.0 98.2 97.8 98.0 98.2 97.8 Pulse 82 82 74 Resp 18 16 18 B/P (MAP) 178/86 (116) 177/84 (115) 166/78 (107) Pulse Ox 99 100 100 99 O2 Delivery Room Air Room Air Room Air Room Air 09/16/18 09/16/18 08:00 08:54 Pulse 74 B/P (MAP) 166/78 O2 Delivery Room Air Intake and Output 09/15/18 09/15/18 09/16/18 15:01 23:01 07:01 Intake Total 400 ml 730 ml Balance 400 ml 730 ml LAKESHA RODRIGUEZ III DO Sep 16, 2018 11:18
--- NOTE | 2018-09-19 23:16 | DS ---
DATE OF DISCHARGE: 09/16/2018 ADMISSION DIAGNOSIS: Chest pain. DISCHARGE DIAGNOSES: 1. Atypical chest pain. 2. End-stage renal disease, on dialysis. HOSPITAL COURSE: The patient is a pleasant 58-year-old male well known to our service. He basically presented with chest pain and he is on dialysis. Sometimes this happens while he is on dialysis. He had some associated shortness of breath. His pressure was little low. We admitted the patient, did serial enzymes, serial EKGs. We consulted Cardiology and did some dialysis. Basically, he returned to his baseline. We discharged with close outpatient followup. DISPOSITION: Home. ACTIVITY: As tolerated. DIET: Low sodium. MEDICATIONS: Please see the MRAD. TOTAL TIME ON DISCHARGE: 33 minutes. LAKESHA RODRIGUEZ DO DR: PRADIP/radha JOB#: [id number] / [id number]
== END 2018-09-16 13:30 | disposition home or self-care (01) | DRG 291 ==
LOC: ER 07:17 → 2 NORTH 09:06
PROVIDERS: ADMIT Internal Medicine; ATTEND Internal Medicine
PROC: 5A1D70Z Performance of Urinary Filtration, Intermittent, Less than 6 Hours Per Day (ICD-10-PCS; principal; 2018-09-15)
DX: I13.2 Hypertensive heart and chronic kidney disease with heart failure and with stage 5 chronic kidney disease, or end stage renal disease (principal); I50.33 Acute on chronic diastolic (congestive) heart failure; N18.6 End stage renal disease; E78.00 Pure hypercholesterolemia, unspecified; E11.22 Type 2 diabetes mellitus with diabetic chronic kidney disease; I25.10 Atherosclerotic heart disease of native coronary artery without angina pectoris; E78.5 Hyperlipidemia, unspecified; K21.9 Gastro-esophageal reflux disease without esophagitis; E03.9 Hypothyroidism, unspecified; E21.3 Hyperparathyroidism, unspecified; I16.0 Hypertensive urgency; M19.90 Unspecified osteoarthritis, unspecified site; D64.9 Anemia, unspecified; G89.4 Chronic pain syndrome; I48.91 Unspecified atrial fibrillation; Z99.2 Dependence on renal dialysis; Z83.3 Family history of diabetes mellitus; I25.2 Old myocardial infarction; Z87.891 Personal history of nicotine dependence; Z79.4 Long term (current) use of insulin; Z82.49 Family history of ischemic heart disease and other diseases of the circulatory system; Z86.73 Personal history of transient ischemic attack (TIA), and cerebral infarction without residual deficits; Z95.5 Presence of coronary angioplasty implant and graft
CPT/HCPCS: 36415; 71045; 80048; 80053; 80061; 82553; 82962; 83690; 83735; 83880; 84484; 85025; 85610; 85730; 93005; 94640; 94760; J1644; J1815; J7620; J7626; 99285-25

== ENCOUNTER 2018-10-23 09:12 | Emergency (ER) | payer MEDICARE ==
[~2018-10-23] VITALS: Ht 175.3 cm; Wt 81.6 kg
[~2018-10-23 09:12] MED LIST changes: +ACET325T9 PO; +HYDR-2867 PO; +INSU100C SQ; +LEVO175T5 PO; +LISI-130 PO; +METO10TA81 PO; +ONDA4TAB7 PO
[2018-10-23 10:31] LABS: BASO # 0.1 x10^3/uL (0.0-0.2); BASO % 1 % (0-3); EOS # 0.7 x10^3/uL (0.0-0.7); EOS % 10 % (0-3); HEMATOCRIT 26.4 % (39.0-53.0); HEMOGLOBIN 8.5 g/dL (13.0-17.5); LYMPH % 15 % (24-48); MEAN CORPUSCULAR HEMOGLOBIN 29 pg (25-35); MEAN CORPUSCULAR HGB CONC 32 g/dL (31-37); MEAN CORPUSCULAR VOLUME 88 fL (79-100); MONO # 0.5 x10^3/uL (0.0-1.1); MONO % 7 % (0-9); NEUT # 4.4 x10^3uL (1.8-7.7); NEUT % 67 % (31-73); PLATELET COUNT 201 x10^3/uL (140-400); RED BLOOD COUNT 2.98 x10^6/uL (4.30-5.70); RED CELL DISTRIBUTION WIDTH 17.8 % (11.5-14.5); WHITE BLOOD COUNT 6.5 x10^3/uL (4.0-11.0)
[2018-10-23 10:53] LABS: ALBUMIN/GLOBULIN RATIO 0.8 (1.0-1.7); CREATININE 4.6 mg/dL (0.7-1.3); GFR 13.3; POTASSIUM 4.4 mmol/L (3.5-5.1); TOTAL BILIRUBIN 0.4 mg/dL (0.2-1.0); TOTAL PROTEIN 6.9 g/dL (6.4-8.2)
[2018-10-23 11:00] LABS: CALCIUM 8.4 mg/dL (8.5-10.1)
[2018-10-23] MEDS ORDERED: INSULIN REGULAR 100 UNIT/ML 3ML VIAL. IV ONE (11:15)
[2018-10-23] MEDS ORDERED: IV NORMAL SALINE 1000ML BAG 1,000 ML IV ONE (11:15)
--- NOTE | 2018-10-23 12:16 | PHYS DOC ---
Past Medical History Past Medical History: Diabetes-Type I, Heart Disease, Hypertension, Renal Failure Additional Past Medical Histor: CARDIAC ARREST DURING DIALYSIS 09/12 Past Surgical History: No Surgical History Additional Past Surgical Histo: AV SHUNT RUE, CARDIAC STENT Alcohol Use: Rarely Drug Use: None Adult General Chief Complaint Chief Complaint: SHORTNESS OF BREATH HPI HPI Patient is a 58 year old [f__sex] who presents with [] Review of Systems Review of Systems Constitutional: Denies fever or chills [] Eyes: Denies change in visual acuity, redness, or eye pain [] HENT: Denies nasal congestion or sore throat [] Respiratory: Denies cough or shortness of breath [] Cardiovascular: No additional information not addressed in HPI [] GI: Denies abdominal pain, nausea, vomiting, bloody stools or diarrhea [] : Denies dysuria or hematuria [] Musculoskeletal: Denies back pain or joint pain [] Integument: Denies rash or skin lesions [] Neurologic: Denies headache, focal weakness or sensory changes [] Endocrine: Denies polyuria or polydipsia [] All other systems were reviewed and found to be within normal limits, except as documented in this note. Current Medications Current Medications Current Medications Medications (Trade) Dose Ordered Sig/Celi Start Time Stop Time Status Last Admin Dose Admin Insulin Human Regular (HumuLIN R VIAL) 10 unit 1X ONCE 10/23/18 11:15 10/23/18 11:16 DC 10/23/18 11:24 10 UNIT Sodium Chloride 1,000 ml @ 1,000 mls/hr 1X ONCE 10/23/18 11:15 10/23/18 12:14 10/23/18 11:26 1,000 MLS/HR Allergies Allergies Allergies Coded Allergies Type Severity Reaction Last Updated Verified atorvastatin Allergy Intermediate "I go blind" 12/03/17 Yes Physical Exam Physical Exam Constitutional: Well developed, well nourished, no acute distress, non-toxic appearance. [] HENT: Normocephalic, atraumatic, bilateral external ears normal, oropharynx moist, no oral exudates, nose normal. [] Eyes: PERRLA, EOMI, conjunctiva normal, no discharge. [] Neck: Normal range of motion, no tenderness, supple, no stridor. [] Cardiovascular:Heart rate regular rhythm, no murmur [] Lungs & Thorax: Bilateral breath sounds clear to auscultation [] Abdomen: Bowel sounds normal, soft, no tenderness, no masses, no pulsatile masses. [] Skin: Warm, dry, no erythema, no rash. [] Back: No tenderness, no CVA tenderness. [] Extremities: No tenderness, no cyanosis, no clubbing, ROM intact, no edema. [] Neurologic: Alert and oriented X 3, normal motor function, normal sensory function, no focal deficits noted. [] Psychologic: Affect normal, judgement normal, mood normal. [] Current Patient Data Vital Signs Vital Signs Date Time Temp Pulse Resp B/P (MAP) Pulse Ox O2 Delivery O2 Flow Rate FiO2 10/23/18 09:27 98.7 72 20 174/81 (112) 95 Nasal Cannula 3.0 98.7 Lab Values Laboratory Tests Test 10/23/18 10:07 10/23/18 12:07 White Blood Count 6.5 x10^3/uL (4.0-11.0) Red Blood Count 2.98 x10^6/uL (4.30-5.70) L Hemoglobin 8.5 g/dL (13.0-17.5) L Hematocrit 26.4 % (39.0-53.0) L Mean Corpuscular Volume 88 fL (79-100) Mean Corpuscular Hemoglobin 29 pg (25-35) Mean Corpuscular Hemoglobin Concent 32 g/dL (31-37) Red Cell Distribution Width 17.8 % (11.5-14.5) H Platelet Count 201 x10^3/uL (140-400) Neutrophils (%) (Auto) 67 % (31-73) Lymphocytes (%) (Auto) 15 % (24-48) L Monocytes (%) (Auto) 7 % (0-9) Eosinophils (%) (Auto) 10 % (0-3) H Basophils (%) (Auto) 1 % (0-3) Neutrophils # (Auto) 4.4 x10^3uL (1.8-7.7) Lymphocytes # (Auto) 1.0 x10^3/uL (1.0-4.8) Monocytes # (Auto) 0.5 x10^3/uL (0.0-1.1) Eosinophils # (Auto) 0.7 x10^3/uL (0.0-0.7) Basophils # (Auto) 0.1 x10^3/uL (0.0-0.2) Sodium Level 132 mmol/L (136-145) L Potassium Level 4.4 mmol/L (3.5-5.1) Chloride Level 95 mmol/L (98-107) L Carbon Dioxide Level 24 mmol/L (21-32) Anion Gap 13 (6-14) Blood Urea Nitrogen 32 mg/dL (8-26) H Creatinine 4.6 mg/dL (0.7-1.3) H Estimated GFR (Cockcroft-Gault) 13.3 BUN/Creatinine Ratio 7 (6-20) Glucose Level 521 mg/dL (70-99) *H Calcium Level 8.4 mg/dL (8.5-10.1) L Total Bilirubin 0.4 mg/dL (0.2-1.0) Aspartate Amino Transferase (AST) 20 U/L (15-37) Alanine Aminotransferase (ALT) 14 U/L (16-63) L Alkaline Phosphatase 139 U/L (46-116) H Total Protein 6.9 g/dL (6.4-8.2) Albumin 3.0 g/dL (3.4-5.0) L Albumin/Globulin Ratio 0.8 (1.0-1.7) L Glucose (Fingerstick) 415 mg/dL (70-99) H Laboratory Tests 10/23/18 10:07 Laboratory Tests 10/23/18 10:07 EKG EKG [] Radiology/Procedures Radiology/Procedures [] Course & Med Decision Making Course & Med Decision Making Pertinent Labs and Imaging studies reviewed. (See chart for details) [] Dragon Disclaimer Dragon Disclaimer This electronic medical record was generated, in whole or in part, using a voice recognition dictation system. Departure Departure Impression: Primary Impression: Shortness of breath Additional Impression: Hyperglycemia Disposition: 01 HOME, SELF-CARE Condition: STABLE Referrals: SOLO NUNO MD (PCP) Patient Instructions: Hyperglycemia, Shortness of Breath Additional Instructions: Follow-up with your primary care provider in 2 days for recheck. Take your diabetic medications as directed. Keep your dialysis appointment as scheduled. If worsening return to the emergency department. Problem Qualifiers JIM FERNANDEZ [employer] Oct 23, 2018 12:16
[2018-10-23 12:27] VITALS: BP 166/77
== END 2018-10-23 12:45 | disposition home or self-care (01) ==
LOC: ER 09:12
DX: E10.65 Type 1 diabetes mellitus with hyperglycemia (principal); R06.02 Shortness of breath; I13.10 Hypertensive heart and chronic kidney disease without heart failure, with stage 1 through stage 4 chronic kidney disease, or unspecified chronic kidney disease; E10.22 Type 1 diabetes mellitus with diabetic chronic kidney disease; N18.9 Chronic kidney disease, unspecified; Z99.2 Dependence on renal dialysis
CPT/HCPCS: 36415; 80053; 82962; 85025; 96374; 99283; J1815; J7030

== ENCOUNTER 2018-11-06 23:29 | Inpatient (IN) | payer MEDICARE ==
[~2018-11-06] VITALS: Ht 175.3 cm; Wt 81.3 kg
[~2018-11-06 23:29] MED LIST changes: -AMLO10TA6 PO; +AMLO10TA8 PO
[2018-11-07 00:55] VITALS: BP 159/97
[2018-11-07 03:00] VITALS: BP 145/94
[2018-11-07] MEDS ORDERED: CALC667T4 PO (03:15)
[2018-11-07] MEDS ORDERED: FURO80TA72 PO (03:15)
[2018-11-07] MEDS ORDERED: OMEG1CAP38 PO (03:15)
[2018-11-07] MEDS ORDERED: METO25TA2 PO (03:15)
[2018-11-07] MEDS ORDERED: DEXTROSE 50% 25 GM / 50ML DISP.SYRIN. IV PRN ×3 (03:30→09:15)
[2018-11-07] MEDS ORDERED: ALBUTEROL SULFATE 2.5 MG/3 ML NEBU. NEB PRN (05:45)
[2018-11-07] MEDS ORDERED: FUROSEMIDE 40 MG/4 ML VIAL. IVP ONE (05:45)
[2018-11-07] MEDS ORDERED: IPRATRPIUM/ALBUTEROL 0.5/2.5MG 3 ML NEBU. NEB ONE (05:45)
[2018-11-07 07:00] VITALS: BP 160/66
[2018-11-07] MEDS ORDERED: INSULIN LISPRO 300 UNITS/3 ML INSULN.PEN. SQ ONE (07:45)
[2018-11-07] MEDS: IPRATRPIUM/ALBUTEROL 0.5/2.5MG 3 ML NEBU. NEB SCH ×4 (08:33→20:23)
[2018-11-07] MEDS ORDERED: hydrALAZINE 10 MG TABLET ONE ×2 (09:00)
[2018-11-07] MEDS ORDERED: LABETALOL 20 MG/4 ML DISP.SYRIN. IVP PRN (09:15)
[2018-11-07] MEDS ORDERED: ACETAMINOPHEN 325 MG TABLET. PO PRN (09:15)
[2018-11-07] MEDS: INSULIN LISPRO 300 UNITS/3 ML INSULN.PEN. SQ SCH ×5 (09:26→16:36)
[2018-11-07] MEDS: TICAGRELOR 90 MG TABLET. PO SCH ×2 (09:44→22:07)
[2018-11-07] MEDS: ASPIRIN CHEWABLE 81 MG TABLET. PO SCH (09:44)
[2018-11-07] MEDS: OMEGA-3 FATTY ACIDS/FISH OIL 1,000 MG CAPSULE. PO SCH (09:45)
[2018-11-07] MEDS: FERROUS SULFATE 325 MG TABLET. PO SCH (09:45)
[2018-11-07] MEDS: FUROSEMIDE 80 MG TABLET. PO SCH (09:46)
[2018-11-07] MEDS: amLODIPine BESYLATE 10 MG TABLET PO SCH (09:46)
[2018-11-07] MEDS: LISINOPRIL 20 MG TABLET PO SCH (09:47)
[2018-11-07] MEDS: PANTOPRAZOLE 40 MG TABLET.DR. PO SCH (09:47)
[2018-11-07] MEDS: METOCLOPRAMIDE 5 MG TABLET. PO SCH ×2 (09:47→16:30)
[2018-11-07] MEDS: LEVOTHYROXINE 175 MCG TABLET PO SCH (09:48)
[2018-11-07] MEDS: METOPROLOL SUCC 24HR ER 25 MG TAB.ER.24H. PO SCH (09:51)
[2018-11-07] MEDS ORDERED: CARVEDILOL 3.125 MG TABLET. PO SCH (10:00)
[2018-11-07 11:00] VITALS: BP 132/64
[2018-11-07] MEDS: BUDESONIDE 0.5 MG/2 ML NEBU. NEB SCH ×2 (11:00→20:23)
--- NOTE | 2018-11-07 11:05 | PDOC1 ---
History and Physical Date of Admission Date of Admission DATE: 11/07/18 TIME: 11:00 Identification/Chief Complaint Chief Complaint S OA-transfer from [facility] Source Source: Caregiver, Chart review, Patient History of Present Illness History of Present Illness 58-year-old male with a transfer from [facility] SOA transferred here because of the need of pulmonary and possible thoracentesis He is ESRD Tuesday on dialysis, missed Tuesday because of SOA could not get up. Usually his drives him to dialysis. 6 months ago he had bilateral thoracentesis done for pleural effusion As per his account he has 75% fluid the right and 50% on the left now He is SOA and tachypnea on short distances and is on O2 at home 18/04 and continues to smoke 1 pack a day History of cardiac, stents in the past. NO CP currently Still makes urine Past Medical History Cardiovascular: CAD, HTN, Hyperlipidemia Pulmonary: Other GI: GERD Heme/Onc: Anemia NOS Hepatobiliary: No pertinent hx Psych: No pertinent hx Rheumatologic: No pertinent hx Infectious disease: No pertinent hx Renal/: Chronic renal failure Endocrine: Diabetes, Hypothyroidism, Hyperparathyroidism Past Surgical History Past Surgical History: Other Family History Family History: Diabetes, Hypertension Social History Smoke: 1 pack per day ALCOHOL: none Drugs: None Current Medications Current Medications Current Medications Dextrose (Dextrose 50%-Water Syringe) 12.5 gm PRN Q15MIN PRN IV SEE COMMENTS; Start 11/07/18 at 03:30; Stop 11/07/18 at 07:42; Status DC Albuterol/ Ipratropium (Duoneb) 3 ml RTQID NEB Last administered on 11/07/18at 10:52; Start 11/07/18 at 08:00 Albuterol/ Ipratropium (Duoneb) 3 ml 1X ONCE NEB Last administered on at 05:50; Start 11/07/18 at 05:45; Stop 11/07/18 at 05:46; Status DC Albuterol Sulfate (Ventolin Neb Soln) 2.5 mg PRN Q4HRS PRN NEB SHORTNESS OF BREATH; Start 11/07/18 at 05:45 Furosemide (Lasix) 40 mg 1X ONCE IVP Last administered on 11/07/18at 05:49; Start 11/07/18 at 05:45; Stop 11/07/18 at 05:46; Status DC Insulin Human Lispro (HumaLOG) 20 units 1X ONCE SQ Last administered on at 07:58; Start 11/07/18 at 07:45; Stop 11/07/18 at 07:46; Status DC Insulin Human Lispro (HumaLOG) 0-7 UNITS TIDWMEALS SQ ; Start 11/07/18 at 12:00 ; Stop 11/07/18 at 12:00; Status DC Dextrose (Dextrose 50%-Water Syringe) 12.5 gm PRN Q15MIN PRN IV SEE COMMENTS; Start 11/07/18 at 07:45; Stop 11/07/18 at 09:06; Status DC Insulin Human Lispro (HumaLOG) 0-9 UNITS TIDWMEALS SQ ; Start 11/07/18 at 09:30 Dextrose (Dextrose 50%-Water Syringe) 12.5 gm PRN Q15MIN PRN IV SEE COMMENTS; Start 11/07/18 at 09:15 Labetalol HCl (Normodyne Iv Push) 20 mg PRN Q2HR PRN IVP HYPERTENSION, SEE COMMENTS; Start 11/07/18 at 09:15 Acetaminophen (Tylenol) 650 mg PRN Q6HRS PRN PO MILD PAIN / TEMP; Start at 09:15 Amlodipine Besylate (Norvasc) 10 mg DAILY PO Last administered on 11/07/18at 09: 46; Start 11/07/18 at 10:00 Aspirin (Children'S Aspirin) 81 mg DAILYWBKFT PO Last administered on at 09:44; Start 11/07/18 at 10:00 Budesonide (Pulmicort) 0.5 mg RTBID NEB ; Start 11/07/18 at 10:00 Carvedilol (Coreg) 3.125 mg BIDWMEALS PO ; Start 11/07/18 at 10:00; Status Cancel Ergocalciferol (Vitamin D2) 50,000 unit WEEKLY PO ; Start 11/14/18 at 09:00 Ferrous Sulfate (Feosol) 325 mg DAILY PO Last administered on 11/07/18at 09:45; Start 11/07/18 at 10:00 Furosemide (Lasix) 80 mg DAILY PO Last administered on 11/07/18at 09:46; Start 11/07/18 at 10:00 Insulin Glargine (Lantus) 15 units QHS SQ ; Start 11/07/18 at 21:00 Levothyroxine Sodium (Synthroid) 175 mcg DAILY06 PO Last administered on at 09:48; Start 11/07/18 at 10:00 Lisinopril (Prinivil) 20 mg DAILY PO Last administered on 11/07/18 09:47; Start 11/07/18 at 10:00 Metoclopramide HCl (Reglan) 5 mg BIDAC PO Last administered on 11/07/18 09:47 ; Start 11/07/18 at 10:00 Metoprolol Succinate (Toprol Xl) 12.5 mg DAILY PO Last administered on 09:51; Start 11/07/18 at 10:00 Ticagrelor (Brilinta) 90 mg BID PO Last administered on 11/07/18at 09:44; Start 11/07/18 at 10:00 Trazodone HCl (Desyrel) 100 mg PRN QHS PRN PO INSOMNIA; Start 11/07/18 at 09:15 Calcium Acetate (Phoslo) 667 mg TIDWMEALS PO ; Start 11/07/18 at 12:00 Hydralazine HCl (Apresoline) 10 mg TID PO ; Start 11/07/18 at 14:00 Insulin Human Lispro (HumaLOG) 6 units TIDWMEALS SQ Last administered on at 09:43; Start 11/07/18 at 09:30 Fish Oil (Fish Oil) 1,000 mg DAILY PO Last administered on 11/07/18at 09:45; Start 11/07/18 at 10:00 Pantoprazole Sodium (Protonix) 40 mg DAILYAC PO Last administered on 11/07/18 09:47; Start 11/07/18 at 10:00 Acetaminophen/ Hydrocodone Bitart (Lortab 5/325) 1 tab PRN Q4HRS PRN PO MODERATE - SEVERE PAIN; Start 11/07/18 at 09:15 Active Scripts Active Hydralazine Hcl 10 Mg Tablet 10 Mg PO TID MDD 1 Amlodipine Besylate 10 Mg Tablet 10 Mg PO DAILY MDD 1 Lisinopril 40 Mg Tablet 20 Mg PO DAILY MDD 1 [Pantoprazole] 40 MG Tablet.dr 40 Mg PO DAILYAC 30 Days Trazodone Hcl 100 Mg Tablet 100 Mg PO PRN QHS PRN 30 Days Lantus Solostar (Insulin Glargine,Hum.rec.anlog) 100 Unit/1 Ml Insuln.pen 15 Units SQ QHS 30 Days Budesonide 0.5 Mg/2 Ml Ampul.neb 0.5 Mg NEB RTBID 30 Days Aspirin 81 Mg Tab.chew 81 Mg PO DAILYWBKFT 30 Days Carvedilol (Carvedilol) 3.125 Mg Tablet 3.125 Mg PO BIDWMEALS 30 Days Duoneb 0.5-3(2.5) Mg/3 Ml (Albuterol/Ipratropium) 3 Ml Ampul.neb 3 Ml NEB RTQID 30 Days Brilinta (Ticagrelor) 90 Mg Tablet 90 Mg PO BID 30 Days Vitamin D2 (Ergocalciferol (Vitamin D2)) 50,000 Unit Capsule 50,000 Unit PO WEEKLY Reported [place] 3 Fish Oil Softgel ([place]-3 Fatty Acids/Fish Oil) 1 Each Capsule.dr 1 Each PO DAILY Toprol Xl (Metoprolol Succinate) 25 Mg Tab.er.24h 0.5 Tab PO DAILY Lasix (Furosemide) 80 Mg Tablet 80 Mg PO DAILY Calcium Acetate 667 Mg Tablet 667 Mg PO TIDWMEALS Tylenol (Acetaminophen) 325 Mg Tablet 650 Mg PO PRN Q6HRS Humalog (Insulin Lispro) 100 Unit/1 Ml Cartridge 6 Unit SQ TIDBFRMEAL Ferrous Sulfate 325 Mg Tablet 1 Tab PO DAILY Levothyroxine Sodium 175 Mcg Tablet 1 Tab PO DAILY Reglan (Metoclopramide Hcl) 10 Mg Tablet 5 Mg PO BIDAC Dialyvite Tablet (Folic Acid/Vitamin B Comp W-C) 1 Each Tablet 1 Each PO Allergies Allergies: Coded Allergies: atorvastatin (Verified Allergy, Intermediate, "I go blind", 12/03/17) ROS Review of System SOA, the rest of ROS 14 point negative Physical Exam General: mild distress HEENT: Atraumatic, PERRLA Lungs: Normal air movement, Other (decreased breath sounds, dullness to percussion left greater than the right) Heart: S1S2, RRR, no thrills, no rubs, no gallops, no murmurs Cardiovascular: S1, S2 Breasts: Normal, Rt breast nml w/o mass, Lt breast nml w/o mass, Nipples normal Abdomen: Normal bowel sounds, Soft, No tenderness, No hepatosplenomegaly, No masses Male Genitals Exam: normal genitalia Rectal Exam: not examined PELVIC: Nml ext genitalia Extremities: No clubbing, No cyanosis, No edema, Normal pulses, No tenderness/ swelling Skin: No rashes, No breakdown, No significant lesion Neuro: Normal gait, Normal speech, Strength at 5/5 X4 ext, Normal tone, Sensation intact, Cranial nerves 3-12 NL, Reflexes 2+ Psych/Mental Status: Mental status NL, Mood NL Vitals Vitals Vital Signs Date Time Temp Pulse Resp B/P (MAP) Pulse Ox O2 Delivery O2 Flow Rate FiO2 11/07/18 10:52 92 Nasal Cannula 3.0 11/07/18 09:51 77 160/66 11/07/18 07:00 97.7 20 97.7 Labs Labs Laboratory Tests Test 11/07/18 07:31 Glucose (Fingerstick) 411 mg/dL (70-99) Laboratory Tests Test 11/07/18 07:31 Glucose (Fingerstick) 411 mg/dL (70-99) VTE Prophylaxis Ordered VTE Prophylaxis Devices: Yes VTE Pharmacological Prophylaxi: Yes Assessment/Plan Assessment/Plan Bilateral pleural effusions 75% left, 50% right History of thoracentesis 6 months ago needing chest tube ESRD Tuesday on dialysis Anemia of ESRD Hypertension, controlled Diabetes-controlled History of cardiac stents-chronic stable PLAN: Nothing by mouth now IR for thoracentesis Consult pulmonary sliding scale insulin I have reconciled home meds I have discussed my plan of care Counseling against smoking done less than 30 minutes one-to-one Nicotine patch when necessary KRYSTAL JASSO MD Nov 07, 2018 11:05
[2018-11-07] MEDS ORDERED: NICOTINE 21MG PATCH. TD PRN (11:15)
[2018-11-07] MEDS: CALCIUM ACETATE 667 MG CAPSULE PO SCH ×2 (11:41→16:35)
[2018-11-07] MEDS ORDERED: INSULIN LISPRO 300 UNITS/3 ML INSULN.PEN. SQ SCH (12:00)
[2018-11-07 12:11] LABS: PROTHROMBIN TIME PATIENT 13.8 SEC (11.7-14.0)
[2018-11-07] MEDS: hydrALAZINE 10 MG TABLET PO SCH ×2 (14:13→22:07)
--- NOTE | 2018-11-07 14:36 | PDOC2 ---
CONSULT Date of Consult Date of Consult DATE: 11/07/18 TIME: 14:32 Reason for Consult Reason for Consult: SOB AND ESRD Referring Physician Referring Physician: JENNIFER Identification/Chief Complaint Chief Complaint SOB Source Source: Chart review History of Present Illness Reason for Visit: THIS IS A 58 YR OLD WITH SOB. NOTED TO HAVE BILATERAL PLEURAL EFFUSIONS. NOTED TO HAVE ESRD ON OP HD MWF BUT SKIPPED HIS TX YESTERDAY. HAS ESRD DUE TO DM II AND HTN. LABS ARE C/W ESRD. HAS HX OF NON COMPLIANCE WELL. CURRENTLY BEING EVALUATED FOR THORACENTESIS Past Medical History Cardiovascular: CAD, HTN, Hyperlipidemia Pulmonary: Other GI: GERD Heme/Onc: Anemia NOS Hepatobiliary: No pertinent hx Psych: No pertinent hx Rheumatologic: No pertinent hx Infectious disease: No pertinent hx Renal/: Chronic renal failure Endocrine: Diabetes, Hypothyroidism, Hyperparathyroidism Past Surgical History Past Surgical History: Other Family History Family History: Diabetes, Hypertension Social History 1 pack per day ALCOHOL: none Drugs: None Lives: with Family Current Medications Current Medications Current Medications Dextrose (Dextrose 50%-Water Syringe) 12.5 gm PRN Q15MIN PRN IV SEE COMMENTS; Start 11/07/18 at 03:30; Stop 11/07/18 at 07:42; Status DC Albuterol/ Ipratropium (Duoneb) 3 ml RTQID NEB Last administered on 11/07/18at 10:52; Start 11/07/18 at 08:00 Albuterol/ Ipratropium (Duoneb) 3 ml 1X ONCE NEB Last administered on at 05:50; Start 11/07/18 at 05:45; Stop 11/07/18 at 05:46; Status DC Albuterol Sulfate (Ventolin Neb Soln) 2.5 mg PRN Q4HRS PRN NEB SHORTNESS OF BREATH; Start 11/07/18 at 05:45 Furosemide (Lasix) 40 mg 1X ONCE IVP Last administered on 11/07/18at 05:49; Start 11/07/18 at 05:45; Stop 11/07/18 at 05:46; Status DC Insulin Human Lispro (HumaLOG) 20 units 1X ONCE SQ Last administered on at 07:58; Start 11/07/18 at 07:45; Stop 11/07/18 at 07:46; Status DC Insulin Human Lispro (HumaLOG) 0-7 UNITS TIDWMEALS SQ ; Start 11/07/18 at 12:00 ; Stop 11/07/18 at 12:00; Status DC Dextrose (Dextrose 50%-Water Syringe) 12.5 gm PRN Q15MIN PRN IV SEE COMMENTS; Start 11/07/18 at 07:45; Stop 11/07/18 at 09:06; Status DC Insulin Human Lispro (HumaLOG) 0-9 UNITS TIDWMEALS SQ Last administered on 11/07at 11:42; Start 11/07/18 at 09:30 Dextrose (Dextrose 50%-Water Syringe) 12.5 gm PRN Q15MIN PRN IV SEE COMMENTS; Start 11/07/18 at 09:15 Labetalol HCl (Normodyne Iv Push) 20 mg PRN Q2HR PRN IVP HYPERTENSION, SEE COMMENTS; Start 11/07/18 at 09:15 Acetaminophen (Tylenol) 650 mg PRN Q6HRS PRN PO MILD PAIN / TEMP; Start at 09:15 Amlodipine Besylate (Norvasc) 10 mg DAILY PO Last administered on 11/07/18at 09: 46; Start 11/07/18 at 10:00 Aspirin (Children'S Aspirin) 81 mg DAILYWBKFT PO Last administered on at 09:44; Start 11/07/18 at 10:00 Budesonide (Pulmicort) 0.5 mg RTBID NEB Last administered on 11/07/18at 11:00; Start 11/07/18 at 10:00 Carvedilol (Coreg) 3.125 mg BIDWMEALS PO ; Start 11/07/18 at 10:00; Status Cancel Ergocalciferol (Vitamin D2) 50,000 unit WEEKLY PO ; Start 11/14/18 at 09:00 Ferrous Sulfate (Feosol) 325 mg DAILY PO Last administered on 11/07/18at 09:45; Start 11/07/18 at 10:00 Furosemide (Lasix) 80 mg DAILY PO Last administered on 11/07/18at 09:46; Start 11/07/18 at 10:00 Insulin Glargine (Lantus) 15 units QHS SQ ; Start 11/07/18 at 21:00 Levothyroxine Sodium (Synthroid) 175 mcg DAILY06 PO Last administered on 09:48; Start 11/07/18 at 10:00 Lisinopril (Prinivil) 20 mg DAILY PO Last administered on 11/07/18 09:47; Start 11/07/18 at 10:00 Metoclopramide HCl (Reglan) 5 mg BIDAC PO Last administered on 11/07/18 09:47 ; Start 11/07/18 at 10:00 Metoprolol Succinate (Toprol Xl) 12.5 mg DAILY PO Last administered on 09:51; Start 11/07/18 at 10:00 Ticagrelor (Brilinta) 90 mg BID PO Last administered on 11/07/18 09:44; Start 11/07/18 at 10:00 Trazodone HCl (Desyrel) 100 mg PRN QHS PRN PO INSOMNIA; Start 11/07/18 at 09:15 Calcium Acetate (Phoslo) 667 mg TIDWMEALS PO Last administered on 11/07/18 11: 41; Start 11/07/18 at 12:00 Hydralazine HCl (Apresoline) 10 mg TID PO Last administered on 11/07/18 14:13 ; Start 11/07/18 at 14:00 Insulin Human Lispro (HumaLOG) 6 units TIDWMEALS SQ Last administered on 11:45; Start 11/07/18 at 09:30 Fish Oil (Fish Oil) 1,000 mg DAILY PO Last administered on 11/07/18 09:45; Start 11/07/18 at 10:00 Pantoprazole Sodium (Protonix) 40 mg DAILYAC PO Last administered on 11/07/18 09:47; Start 11/07/18 at 10:00 Acetaminophen/ Hydrocodone Bitart (Lortab 5/325) 1 tab PRN Q4HRS PRN PO MODERATE - SEVERE PAIN; Start 11/07/18 at 09:15 Nicotine (Nicoderm Cq 21mg) 1 patch PRN DAILY PRN TD SMOKING CESSATION; Start 11/07/18 at 11:15 Active Scripts Active Hydralazine Hcl 10 Mg Tablet 10 Mg PO TID MDD 1 Amlodipine Besylate 10 Mg Tablet 10 Mg PO DAILY MDD 1 Lisinopril 40 Mg Tablet 20 Mg PO DAILY MDD 1 [Pantoprazole] 40 MG Tablet.dr 40 Mg PO DAILYAC 30 Days Trazodone Hcl 100 Mg Tablet 100 Mg PO PRN QHS PRN 30 Days Lantus Solostar (Insulin Glargine,Hum.rec.anlog) 100 Unit/1 Ml Insuln.pen 15 Units SQ QHS 30 Days Budesonide 0.5 Mg/2 Ml Ampul.neb 0.5 Mg NEB RTBID 30 Days Aspirin 81 Mg Tab.chew 81 Mg PO DAILYWBKFT 30 Days Carvedilol (Carvedilol) 3.125 Mg Tablet 3.125 Mg PO BIDWMEALS 30 Days Duoneb 0.5-3(2.5) Mg/3 Ml (Albuterol/Ipratropium) 3 Ml Ampul.neb 3 Ml NEB RTQID 30 Days Brilinta (Ticagrelor) 90 Mg Tablet 90 Mg PO BID 30 Days Vitamin D2 (Ergocalciferol (Vitamin D2)) 50,000 Unit Capsule 50,000 Unit PO WEEKLY Reported [place] 3 Fish Oil Softgel ([place]-3 Fatty Acids/Fish Oil) 1 Each Capsule.dr 1 Each PO DAILY Toprol Xl (Metoprolol Succinate) 25 Mg Tab.er.24h 0.5 Tab PO DAILY Lasix (Furosemide) 80 Mg Tablet 80 Mg PO DAILY Calcium Acetate 667 Mg Tablet 667 Mg PO TIDWMEALS Tylenol (Acetaminophen) 325 Mg Tablet 650 Mg PO PRN Q6HRS Humalog (Insulin Lispro) 100 Unit/1 Ml Cartridge 6 Unit SQ TIDBFRMEAL Ferrous Sulfate 325 Mg Tablet 1 Tab PO DAILY Levothyroxine Sodium 175 Mcg Tablet 1 Tab PO DAILY Reglan (Metoclopramide Hcl) 10 Mg Tablet 5 Mg PO BIDAC Dialyvite Tablet (Folic Acid/Vitamin B Comp W-C) 1 Each Tablet 1 Each PO Allergies Allergies: Coded Allergies: atorvastatin (Verified Allergy, Intermediate, "I go blind", 12/03/17) ROS General: YES: Fatigue, Appetite PSYCHOLOGICAL ROS: YES: Anxiety, Depression Eyes: Yes Decreased vision HEENT: YES: Heacaches Respiratory: YES: Cough, Orthopnea, Shortness of breath Cardiovascular: yes Orthopnea Gastrointestinal: Yes Constipation Genitourinary: YES Other (ANURIA) Musculoskeletal: Yes Muscular Weakness Neurological: Yes Weakness Skin: Yes Dry Skin Physical Exam General: Alert, Oriented X3, Cooperative, mild distress HEENT: Atraumatic, PERRLA, Mucous membr. moist/pink Lungs: Other (DIMINISHED AT BASES MORE ON THE RIGHT) Heart: Regular rate, Normal S1, Normal S2 Abdomen: Normal bowel sounds, Soft, No tenderness Extremities: No clubbing Skin: No breakdown Neuro: Normal speech, Sensation intact, Cranial nerves 3-12 NL Psych/Mental Status: Mental status NL, Mood NL MUSCULOSKELETAL: No joint tenderness, No deformity, No swelling Vitals VITALS Vital Signs Date Time Temp Pulse Resp B/P (MAP) Pulse Ox O2 Delivery O2 Flow Rate FiO2 11/07/18 14:13 69 132/64 11/07/18 11:00 97.9 21 96 Room Air 97.9 11/07/18 10:52 3.0 Labs Labs Laboratory Tests Test 11/07/18 07:31 11/07/18 10:05 11/07/18 11:06 11/07/18 11:46 Glucose (Fingerstick) 411 mg/dL (70-99) 201 mg/dL (70-99) Hepatitis B Surface Antigen Nonreactive (Nonreactive) Prothrombin Time 13.8 SEC (11.7-14.0) Prothromb Time International Ratio 1.1 (0.8-1.1) Activated Partial Thromboplast Time 36 SEC (24-38) Laboratory Tests Test 11/07/18 07:31 11/07/18 10:05 11/07/18 11:06 11/07/18 11:46 Glucose (Fingerstick) 411 mg/dL (70-99) 201 mg/dL (70-99) Hepatitis B Surface Antigen Nonreactive (Nonreactive) Prothrombin Time 13.8 SEC (11.7-14.0) Prothromb Time International Ratio 1.1 (0.8-1.1) Activated Partial Thromboplast Time 36 SEC (24-38) Assessment/Plan Assessment/Plan IMP PLEURAL EFFUSIONS ACUTE RESP FAILURE NON COMPLIANCE DM II ESRD DM II ANEMIA PLAN THORACENTESIS HD TODAY UF TO DW HD MWF THEREAFTER ENC COMPLIANCE LAM ATKINS MD Nov 07, 2018 14:36
[2018-11-07] MEDS ORDERED: DEXTROSE 50% 25 GM / 50ML DISP.SYRIN. IV ONE (15:09)
[2018-11-07] MEDS ORDERED: IV NORMAL SALINE 1000ML BAG 1,000 ML IV PRN (16:10)
[2018-11-07] MEDS ORDERED: DIALYSIS PATIENT. MC PRN ×2 (16:15)
--- NOTE | 2018-11-07 17:26 | PDOC ---
PULMONARY PROGRESS NOTES Vitals Vital Signs Date Time Temp Pulse Resp B/P (MAP) Pulse Ox O2 Delivery O2 Flow Rate FiO2 11/07/18 14:36 Nasal Cannula 3.0 11/07/18 14:13 69 132/64 11/07/18 11:00 97.9 21 96 97.9 General: Alert, No acute distress HEENT: Other Lungs: Crackles, Other Cardiovascular: S1, S2 Abdomen: Soft, Non-tender Extremities: Other Labs Laboratory Tests Test 11/07/18 07:31 11/07/18 10:05 11/07/18 11:06 11/07/18 11:46 Glucose (Fingerstick) 411 mg/dL (70-99) 201 mg/dL (70-99) Hepatitis B Surface Antigen Nonreactive (Nonreactive) Prothrombin Time 13.8 SEC (11.7-14.0) Prothromb Time International Ratio 1.1 (0.8-1.1) Activated Partial Thromboplast Time 36 SEC (24-38) Test 11/07/18 15:08 11/07/18 15:23 11/07/18 15:50 Glucose (Fingerstick) 26 mg/dL (70-99) 57 mg/dL (70-99) 77 mg/dL (70-99) Glucose Level 90 mg/dL (70-99) Laboratory Tests Test 11/07/18 07:31 11/07/18 10:05 11/07/18 11:06 11/07/18 11:46 Glucose (Fingerstick) 411 mg/dL (70-99) 201 mg/dL (70-99) Hepatitis B Surface Antigen Nonreactive (Nonreactive) Prothrombin Time 13.8 SEC (11.7-14.0) Prothromb Time International Ratio 1.1 (0.8-1.1) Activated Partial Thromboplast Time 36 SEC (24-38) Test 11/07/18 15:08 11/07/18 15:23 11/07/18 15:50 Glucose (Fingerstick) 26 mg/dL (70-99) 57 mg/dL (70-99) 77 mg/dL (70-99) Glucose Level 90 mg/dL (70-99) Medications Active Scripts Medications Dose Route/Sig Max Daily Dose Days Date Category [place] 3 Fish Oil Softgel ([place]-3 Fatty Acids/Fish Oil) 1 Each Capsule. 1 Each PO DAILY 11/07/18 Reported Toprol Xl (Metoprolol Succinate) 25 Mg Tab.er.24h 0.5 Tab PO DAILY 11/07/18 Reported Lasix (Furosemide) 80 Mg Tablet 80 Mg PO DAILY 11/07/18 Reported Calcium Acetate 667 Mg Tablet 667 Mg PO TIDWMEALS 11/07/18 Reported Hydralazine Hcl 10 Mg Tablet 10 Mg PO TID MDD 1 10/04/18 Rx Amlodipine Besylate 10 Mg Tablet 10 Mg PO DAILY MDD 1 10/04/18 Rx Lisinopril 40 Mg Tablet 20 Mg PO DAILY MDD 1 10/04/18 Rx Tylenol (Acetaminophen) 325 Mg Tablet 650 Mg PO PRN Q6HRS 10/02/18 Reported Humalog (Insulin Lispro) 100 Unit/1 Ml Cartridge 6 Unit SQ TIDBFRMEAL 10/02/18 Reported Ferrous Sulfate 325 Mg Tablet 1 Tab PO DAILY 09/15/18 Reported Levothyroxine Sodium 175 Mcg Tablet 1 Tab PO DAILY 09/15/18 Reported Reglan (Metoclopramide Hcl) 10 Mg Tablet 5 Mg PO BIDAC 09/15/18 Reported [Pantoprazole] 40 MG Tablet.dr 40 Mg PO DAILYAC 30 09/09/18 Rx Trazodone Hcl 100 Mg Tablet 100 Mg PO PRN QHS PRN 30 09/09/18 Rx Lantus Solostar (Insulin Glargine,Hum.rec.anlog) 100 Unit/1 Ml Insuln.pen 15 Units SQ QHS 30 09/09/18 Rx Budesonide 0.5 Mg/2 Ml Ampul.neb 0.5 Mg NEB RTBID 30 08/29/18 Rx Aspirin 81 Mg Tab.chew 81 Mg PO DAILYWBKFT 30 08/29/18 Rx Carvedilol (Carvedilol) 3.125 Mg Tablet 3.125 Mg PO BIDWMEALS 30 08/29/18 Rx Duoneb 0.5-3(2.5) Mg/3 Ml (Albuterol/Ipratropium) 3 Ml Ampul.neb 3 Ml NEB RTQID 30 08/29/18 Rx Brilinta (Ticagrelor) 90 Mg Tablet 90 Mg PO BID 30 08/29/18 Rx Vitamin D2 (Ergocalciferol (Vitamin D2)) 50,000 Unit Capsule 50,000 Unit PO WEEKLY 7/8/18 Rx Dialyvite Tablet (Folic Acid/Vitamin B Comp W-C) 1 Each Tablet 1 Each PO 03/28/18 Reported Impression . FULL NOTE DICTATED THORACENTESI ACUTE RESP FAILURE YOSI ZHANG MD Nov 07, 2018 17:25
[2018-11-07 19:00] VITALS: BP 155/71
[2018-11-07] MEDS: INSULIN GLARGINE 300 UNITS/3 ML INSULN.PEN. SQ SCH (21:00)
[2018-11-07] MEDS: HYDROcodone/APAP 5/325MG 1 TAB TABLET PO PRN (22:10)
[2018-11-07] MEDS: traZODone 100 MG TABLET. PO PRN (22:10)
--- NOTE | 2018-11-07 22:49 | CONS ---
DATE OF CONSULTATION: 11/07/2018 ATTENDING PHYSICIAN: Dr. Nevarez. REASON FOR CONSULTATION: The patient seen in pulmonary consultation at the request of Dr. Nevarez for abnormal chest x-ray. HISTORY OF PRESENT ILLNESS: The patient is a 58-year-old noncompliant individual with end-stage renal disease, missed dialysis, presented to [facility] for increasing shortness of breath. He denied fever, chills. No nausea, vomiting, diarrhea. The patient had a chest x-ray, which revealed a large pleural effusion. I was asked to see him in consultation. PAST MEDICAL HISTORY: Remarkable for: 1. End-stage renal disease on hemodialysis, noncompliant. 2. Coronary artery disease. 3. Hypertension. 4. Hyperlipidemia. 5. Gastroesophageal reflux. PAST SURGICAL HISTORY: None. ALLERGIES: ATORVASTATIN. SOCIAL HISTORY: He continues to smoke. Denies any illicit drug use. REVIEW OF SYSTEMS: As indicated above, otherwise, a 10-point system was reviewed and negative. EYES: No change in visual acuity. HEENT: No nasal congestion or sore throat. PULMONARY: As indicated above. CARDIOVASCULAR: No chest pain or pressure. GASTROINTESTINAL: No nausea, vomiting, diarrhea. GENITOURINARY: No dysuria or frequency. MUSCULOSKELETAL: No localized muscle aches or joint pain. SKIN: No new skin rashes. NEUROLOGIC: No headaches, diplopia or blurred vision. CURRENT MEDICATIONS: List was reviewed. FAMILY HISTORY: Noncontributory. PHYSICAL EXAMINATION: VITAL SIGNS: The patient was in dialysis on 3 L of oxygen supplementation, saturation greater than 92%. HEENT: Eyes, the sclerae were nonicteric. NECK: Jugular venous distention was not elevated. CHEST: Full expansion. LUNGS: Diminished breath sounds in the bases. No wheezes. CARDIOVASCULAR: Regular rate and rhythm with S1, S2, no S3. ABDOMEN: Soft, nontender, nondistended. EXTREMITIES: No clubbing, cyanosis. Minimal edema. NEUROLOGIC: The patient was awake, alert, following commands. A detailed neuro exam was not performed. LABORATORY DATA: Reviewed. White count was not available. Hepatitis B surface antigen was negative. IMPRESSION: 1. Acute on chronic hypoxemic respiratory failure. 2. Bilateral pleural effusions, left greater than right. 3. End-stage renal disease, noncompliant with hemodialysis. 4. Hypertension. 5. Chronic obstructive pulmonary disease. 6. Tobacco dependent. 7. Coronary artery disease with previous stent placement. PLAN: 1. Proceed with thoracentesis. 2. Continue dialysis, negative fluid balance. 3. The patient instructed on the importance of discontinuing tobacco use. I do appreciate the privilege in sharing in the patient's care. YOSI ZHANG MD DR: EZIO/radha JOB#: [id number] / [id number]
[2018-11-07 23:00] VITALS: BP 153/69
[2018-11-08 02:53] VITALS: BP 163/73
[2018-11-08] MEDS: LEVOTHYROXINE 175 MCG TABLET PO SCH (05:59)
[2018-11-08] MEDS: METOCLOPRAMIDE 5 MG TABLET. PO SCH ×2 (05:59→17:46)
[2018-11-08] MEDS: PANTOPRAZOLE 40 MG TABLET.DR. PO SCH (05:59)
[2018-11-08 06:32] LABS: HEMATOCRIT 30.3 % (39.0-53.0); HEMOGLOBIN 9.7 g/dL (13.0-17.5); RED BLOOD COUNT 3.47 x10^6/uL (4.30-5.70); RED CELL DISTRIBUTION WIDTH 18.6 % (11.5-14.5)
[2018-11-08 07:00] VITALS: BP 157/75
[2018-11-08] MEDS: BUDESONIDE 0.5 MG/2 ML NEBU. NEB SCH ×2 (07:42→20:00)
[2018-11-08] MEDS: IPRATRPIUM/ALBUTEROL 0.5/2.5MG 3 ML NEBU. NEB SCH ×4 (07:42→20:00)
[2018-11-08] MEDS: CALCIUM ACETATE 667 MG CAPSULE PO SCH ×3 (08:00→17:44)
[2018-11-08] MEDS ORDERED: hydrALAZINE 10 MG TABLET ONE (09:00)
[2018-11-08] MEDS: TICAGRELOR 90 MG TABLET. PO SCH ×2 (09:00→17:47)
[2018-11-08] MEDS: hydrALAZINE 10 MG TABLET PO SCH ×3 (09:00→21:00)
--- NOTE | 2018-11-08 09:00 | PDOC ---
PULMONARY PROGRESS NOTES Subjective PAT NOT MORE SOA Vitals Vital Signs Date Time Temp Pulse Resp B/P (MAP) Pulse Ox O2 Delivery O2 Flow Rate FiO2 11/08/18 07:43 97 Nasal Cannula 3.0 11/08/18 07:00 98.3 77 18 157/75 (102) 98.3 ROS: No Nausea, No Chest Pain, No Abdominal Pain, No Increase Cough General: Alert, No acute distress HEENT: Other Lungs: Other (DECREASE BS IN BASE) Cardiovascular: S1, S2 Abdomen: Soft, Non-tender Neuro Exam: Alert Extremities: Other (EDEMA) Skin: Warm Labs Laboratory Tests Test 11/07/18 07:31 11/07/18 10:05 11/07/18 11:06 11/07/18 11:46 Glucose (Fingerstick) 411 mg/dL (70-99) 201 mg/dL (70-99) Hepatitis B Surface Antigen Nonreactive (Nonreactive) Prothrombin Time 13.8 SEC (11.7-14.0) Prothromb Time International Ratio 1.1 (0.8-1.1) Activated Partial Thromboplast Time 36 SEC (24-38) Test 11/07/18 15:08 11/07/18 15:23 11/07/18 15:50 11/07/18 20:44 Glucose (Fingerstick) 26 mg/dL (70-99) 57 mg/dL (70-99) 77 mg/dL (70-99) 124 mg/dL (70-99) Glucose Level 90 mg/dL (70-99) Test 11/08/18 05:40 11/08/18 07:14 White Blood Count 6.0 x10^3/uL (4.0-11.0) Red Blood Count 3.47 x10^6/uL (4.30-5.70) Hemoglobin 9.7 g/dL (13.0-17.5) Hematocrit 30.3 % (39.0-53.0) Mean Corpuscular Volume 87 fL (79-100) Mean Corpuscular Hemoglobin 28 pg (25-35) Mean Corpuscular Hemoglobin Concent 32 g/dL (31-37) Red Cell Distribution Width 18.6 % (11.5-14.5) Platelet Count 251 x10^3/uL (140-400) Sodium Level 133 mmol/L (136-145) Potassium Level 4.9 mmol/L (3.5-5.1) Chloride Level 96 mmol/L (98-107) Carbon Dioxide Level 26 mmol/L (21-32) Anion Gap 11 (6-14) Blood Urea Nitrogen 28 mg/dL (8-26) Creatinine 5.5 mg/dL (0.7-1.3) Estimated GFR (Cockcroft-Gault) 10.8 Glucose Level 346 mg/dL (70-99) Calcium Level 8.5 mg/dL (8.5-10.1) Glucose (Fingerstick) 348 mg/dL (70-99) Laboratory Tests Test 11/07/18 10:05 11/07/18 11:06 11/07/18 11:46 11/07/18 15:08 Hepatitis B Surface Antigen Nonreactive (Nonreactive) Glucose (Fingerstick) 201 mg/dL (70-99) 26 mg/dL (70-99) Prothrombin Time 13.8 SEC (11.7-14.0) Prothromb Time International Ratio 1.1 (0.8-1.1) Activated Partial Thromboplast Time 36 SEC (24-38) Test 11/07/18 15:23 11/07/18 15:50 11/07/18 20:44 11/08/18 05:40 Glucose (Fingerstick) 57 mg/dL (70-99) 77 mg/dL (70-99) 124 mg/dL (70-99) Glucose Level 90 mg/dL (70-99) 346 mg/dL (70-99) White Blood Count 6.0 x10^3/uL (4.0-11.0) Red Blood Count 3.47 x10^6/uL (4.30-5.70) Hemoglobin 9.7 g/dL (13.0-17.5) Hematocrit 30.3 % (39.0-53.0) Mean Corpuscular Volume 87 fL (79-100) Mean Corpuscular Hemoglobin 28 pg (25-35) Mean Corpuscular Hemoglobin Concent 32 g/dL (31-37) Red Cell Distribution Width 18.6 % (11.5-14.5) Platelet Count 251 x10^3/uL (140-400) Sodium Level 133 mmol/L (136-145) Potassium Level 4.9 mmol/L (3.5-5.1) Chloride Level 96 mmol/L (98-107) Carbon Dioxide Level 26 mmol/L (21-32) Anion Gap 11 (6-14) Blood Urea Nitrogen 28 mg/dL (8-26) Creatinine 5.5 mg/dL (0.7-1.3) Estimated GFR (Cockcroft-Gault) 10.8 Calcium Level 8.5 mg/dL (8.5-10.1) Test 11/08/18 07:14 Glucose (Fingerstick) 348 mg/dL (70-99) Medications Active Scripts Medications Dose Route/Sig Max Daily Dose Days Date Category [place] 3 Fish Oil Softgel ([place]-3 Fatty Acids/Fish Oil) 1 Each Capsule.dr 1 Each PO DAILY 11/07/18 Reported Toprol Xl (Metoprolol Succinate) 25 Mg Tab.er.24h 0.5 Tab PO DAILY 11/07/18 Reported Lasix (Furosemide) 80 Mg Tablet 80 Mg PO DAILY 11/07/18 Reported Calcium Acetate 667 Mg Tablet 667 Mg PO TIDWMEALS 11/07/18 Reported Hydralazine Hcl 10 Mg Tablet 10 Mg PO TID MDD 1 10/04/18 Rx Amlodipine Besylate 10 Mg Tablet 10 Mg PO DAILY MDD 1 10/04/18 Rx Lisinopril 40 Mg Tablet 20 Mg PO DAILY MDD 1 10/04/18 Rx Tylenol (Acetaminophen) 325 Mg Tablet 650 Mg PO PRN Q6HRS 10/02/18 Reported Humalog (Insulin Lispro) 100 Unit/1 Ml Cartridge 6 Unit SQ TIDBFRMEAL 10/02/18 Reported Ferrous Sulfate 325 Mg Tablet 1 Tab PO DAILY 09/15/18 Reported Levothyroxine Sodium 175 Mcg Tablet 1 Tab PO DAILY 09/15/18 Reported Reglan (Metoclopramide Hcl) 10 Mg Tablet 5 Mg PO BIDAC 09/15/18 Reported [Pantoprazole] 40 MG Tablet.dr 40 Mg PO DAILYAC 30 09/09/18 Rx Trazodone Hcl 100 Mg Tablet 100 Mg PO PRN QHS PRN 30 09/09/18 Rx Lantus Solostar (Insulin Glargine,Hum.rec.anlog) 100 Unit/1 Ml Insuln.pen 15 Units SQ QHS 30 09/09/18 Rx Budesonide 0.5 Mg/2 Ml Ampul.neb 0.5 Mg NEB RTBID 30 08/29/18 Rx Aspirin 81 Mg Tab.chew 81 Mg PO DAILYWBKFT 08/29/18 Rx Carvedilol (Carvedilol) 3.125 Mg Tablet 3.125 Mg PO BIDWMEALS 08/29/18 Rx Duoneb 0.5-3(2.5) Mg/3 Ml (Albuterol/Ipratropium) 3 Ml Ampul.neb 3 Ml NEB RTQID 08/29/18 Rx Brilinta (Ticagrelor) 90 Mg Tablet 90 Mg PO BID 30 08/29/18 Rx Vitamin D2 (Ergocalciferol (Vitamin D2)) 50,000 Unit Capsule 50,000 Unit PO WEEKLY 04/02/18 Rx Dialyvite Tablet (Folic Acid/Vitamin B Comp W-C) 1 Each Tablet 1 Each PO 03/28/18 Reported Impression . IMPRESSION: 1. Acute on chronic hypoxemic respiratory failure. 2. Bilateral pleural effusions, left greater than right. 3. End-stage renal disease, noncompliant with hemodialysis. 4. Hypertension. 5. Chronic obstructive pulmonary disease. 6. Tobacco dependent. 7. Coronary artery disease with previous stent placement. Plan . REPEAT CXR WANTS TO KNOW IF HE REQUIRES OTHER SIDE TO BE TAPPED YOSI ZHANG MD Nov 08, 2018 09:00
[2018-11-08] MEDS: FERROUS SULFATE 325 MG TABLET. PO SCH (09:05)
[2018-11-08] MEDS: ASPIRIN CHEWABLE 81 MG TABLET. PO SCH (09:05)
[2018-11-08] MEDS: OMEGA-3 FATTY ACIDS/FISH OIL 1,000 MG CAPSULE. PO SCH (09:06)
[2018-11-08] MEDS: INSULIN LISPRO 300 UNITS/3 ML INSULN.PEN. SQ SCH ×3 (09:28→17:00)
--- NOTE | 2018-11-08 10:44 | PDOC ---
PROGRESS NOTES History of Present Illness History of Present Illness Assessment/Plan Assessment/Plan Bilateral pleural effusions 75% left, 50% right History of thoracentesis 6 months ago needing chest tube ESRD Tuesday on dialysis Anemia of ESRD Hypertension, controlled Diabetes-controlled History of cardiac stents-chronic stable PLAN: Nothing by mouth now IR for thoracentesis Consult pulmonary sliding scale insulin I have reconciled home meds I have discussed my plan of care Counseling against smoking Nicotine patch prn Vitals Vitals Vital Signs Date Time Temp Pulse Resp B/P (MAP) Pulse Ox O2 Delivery O2 Flow Rate FiO2 11/08/18 07:43 97 Nasal Cannula 3.0 11/08/18 07:00 98.3 77 18 157/75 (102) 98.3 Physical Exam General: Alert, Oriented X3, Cooperative, mild distress Heart: Regular rate, Normal S1, Normal S2 Lungs: Crackles, Other Abdomen: Normal bowel sounds, Soft, No tenderness Extremities: No clubbing Skin: No breakdown Labs LABS Ultrasound-guided right-sided thoracentesis 11/08/2018 12:26 PM Indication: Bilateral pleural effusions, shortness of breath. Procedure: Informed consent was obtained. A timeout procedure was performed. Sonographic evaluation of the right chest was performed demonstrating moderate pleural effusion. The right posterior chest was prepped and draped in sterile fashion. 1% lidocaine without epinephrine was administered for local anesthesia. Real-time ultrasonographic guidance was used in passing a 5 [place] [employer] catheter into the right pleural space. 1.7 L of serosanguineous pleural fluid was removed. Samples of fluid were sent to the lab for further evaluation per ordering physician request. The catheter was removed and pressure held to achieve hemostasis. A sterile dressing was applied. No immediate complications were identified. The patient tolerated the procedure well. Impression: Right sided ultrasound-guided thoracentesis DICTATED and SIGNED BY: HARITHA WILEY MD DATE: 11/08/18 1226 Laboratory Tests Test 11/07/18 11:06 11/07/18 11:46 11/07/18 15:08 11/07/18 15:23 Glucose (Fingerstick) 201 mg/dL (70-99) 26 mg/dL (70-99) 57 mg/dL (70-99) Prothrombin Time 13.8 SEC (11.7-14.0) Prothromb Time International Ratio 1.1 (0.8-1.1) Activated Partial Thromboplast Time 36 SEC (24-38) Test 11/07/18 15:50 11/07/18 20:44 11/08/18 05:40 11/08/18 07:14 Glucose Level 90 mg/dL (70-99) 346 mg/dL (70-99) Glucose (Fingerstick) 77 mg/dL (70-99) 124 mg/dL (70-99) 348 mg/dL (70-99) White Blood Count 6.0 x10^3/uL (4.0-11.0) Red Blood Count 3.47 x10^6/uL (4.30-5.70) Hemoglobin 9.7 g/dL (13.0-17.5) Hematocrit 30.3 % (39.0-53.0) Mean Corpuscular Volume 87 fL (79-100) Mean Corpuscular Hemoglobin 28 pg (25-35) Mean Corpuscular Hemoglobin Concent 32 g/dL (31-37) Red Cell Distribution Width 18.6 % (11.5-14.5) Platelet Count 251 x10^3/uL (140-400) Sodium Level 133 mmol/L (136-145) Potassium Level 4.9 mmol/L (3.5-5.1) Chloride Level 96 mmol/L (98-107) Carbon Dioxide Level 26 mmol/L (21-32) Anion Gap 11 (6-14) Blood Urea Nitrogen 28 mg/dL (8-26) Creatinine 5.5 mg/dL (0.7-1.3) Estimated GFR (Cockcroft-Gault) 10.8 Calcium Level 8.5 mg/dL (8.5-10.1) Comment Review of Relevant I have reviewed the following items yesenia (where applicable) has been applied. Labs Laboratory Tests Test 11/07/18 07:31 11/07/18 10:05 11/07/18 11:06 11/07/18 11:46 Glucose (Fingerstick) 411 mg/dL (70-99) 201 mg/dL (70-99) Hepatitis B Surface Antigen Nonreactive (Nonreactive) Prothrombin Time 13.8 SEC (11.7-14.0) Prothromb Time International Ratio 1.1 (0.8-1.1) Activated Partial Thromboplast Time 36 SEC (24-38) Test 11/07/18 15:08 11/07/18 15:23 11/07/18 15:50 11/07/18 20:44 Glucose (Fingerstick) 26 mg/dL (70-99) 57 mg/dL (70-99) 77 mg/dL (70-99) 124 mg/dL (70-99) Glucose Level 90 mg/dL (70-99) Test 11/08/18 05:40 11/08/18 07:14 White Blood Count 6.0 x10^3/uL (4.0-11.0) Red Blood Count 3.47 x10^6/uL (4.30-5.70) Hemoglobin 9.7 g/dL (13.0-17.5) Hematocrit 30.3 % (39.0-53.0) Mean Corpuscular Volume 87 fL (79-100) Mean Corpuscular Hemoglobin 28 pg (25-35) Mean Corpuscular Hemoglobin Concent 32 g/dL (31-37) Red Cell Distribution Width 18.6 % (11.5-14.5) Platelet Count 251 x10^3/uL (140-400) Sodium Level 133 mmol/L (136-145) Potassium Level 4.9 mmol/L (3.5-5.1) Chloride Level 96 mmol/L (98-107) Carbon Dioxide Level 26 mmol/L (21-32) Anion Gap 11 (6-14) Blood Urea Nitrogen 28 mg/dL (8-26) Creatinine 5.5 mg/dL (0.7-1.3) Estimated GFR (Cockcroft-Gault) 10.8 Glucose Level 346 mg/dL (70-99) Calcium Level 8.5 mg/dL (8.5-10.1) Glucose (Fingerstick) 348 mg/dL (70-99) Laboratory Tests Test 11/07/18 11:06 11/07/18 11:46 11/07/18 15:08 11/07/18 15:23 Glucose (Fingerstick) 201 mg/dL (70-99) 26 mg/dL (70-99) 57 mg/dL (70-99) Prothrombin Time 13.8 SEC (11.7-14.0) Prothromb Time International Ratio 1.1 (0.8-1.1) Activated Partial Thromboplast Time 36 SEC (24-38) Test 11/07/18 15:50 11/07/18 20:44 11/08/18 05:40 11/08/18 07:14 Glucose Level 90 mg/dL (70-99) 346 mg/dL (70-99) Glucose (Fingerstick) 77 mg/dL (70-99) 124 mg/dL (70-99) 348 mg/dL (70-99) White Blood Count 6.0 x10^3/uL (4.0-11.0) Red Blood Count 3.47 x10^6/uL (4.30-5.70) Hemoglobin 9.7 g/dL (13.0-17.5) Hematocrit 30.3 % (39.0-53.0) Mean Corpuscular Volume 87 fL (79-100) Mean Corpuscular Hemoglobin 28 pg (25-35) Mean Corpuscular Hemoglobin Concent 32 g/dL (31-37) Red Cell Distribution Width 18.6 % (11.5-14.5) Platelet Count 251 x10^3/uL (140-400) Sodium Level 133 mmol/L (136-145) Potassium Level 4.9 mmol/L (3.5-5.1) Chloride Level 96 mmol/L (98-107) Carbon Dioxide Level 26 mmol/L (21-32) Anion Gap 11 (6-14) Blood Urea Nitrogen 28 mg/dL (8-26) Creatinine 5.5 mg/dL (0.7-1.3) Estimated GFR (Cockcroft-Gault) 10.8 Calcium Level 8.5 mg/dL (8.5-10.1) Medications Current Medications Dextrose (Dextrose 50%-Water Syringe) 12.5 gm PRN Q15MIN PRN IV SEE COMMENTS; Start 11/07/18 at 03:30; Stop 11/07/18 at 07:42; Status DC Albuterol/ Ipratropium (Duoneb) 3 ml RTQID NEB Last administered on 11/08/18at 07:42; Start 11/07/18 at 08:00 Albuterol/ Ipratropium (Duoneb) 3 ml 1X ONCE NEB Last administered on at 05:50; Start 11/07/18 at 05:45; Stop 11/07/18 at 05:46; Status DC Albuterol Sulfate (Ventolin Neb Soln) 2.5 mg PRN Q4HRS PRN NEB SHORTNESS OF BREATH; Start 11/07/18 at 05:45 Furosemide (Lasix) 40 mg 1X ONCE IVP Last administered on 11/07/18at 05:49; Start 11/07/18 at 05:45; Stop 11/07/18 at 05:46; Status DC Insulin Human Lispro (HumaLOG) 20 units 1X ONCE SQ Last administered on at 07:58; Start 11/07/18 at 07:45; Stop 11/07/18 at 07:46; Status DC Insulin Human Lispro (HumaLOG) 0-7 UNITS TIDWMEALS SQ ; Start 11/07/18 at 12:00 ; Stop 11/07/18 at 12:00; Status DC Dextrose (Dextrose 50%-Water Syringe) 12.5 gm PRN Q15MIN PRN IV SEE COMMENTS; Start 11/07/18 at 07:45; Stop 11/07/18 at 09:06; Status DC Insulin Human Lispro (HumaLOG) 0-9 UNITS TIDWMEALS SQ Last administered on 11/08at 09:28; Start 11/07/18 at 09:30 Dextrose (Dextrose 50%-Water Syringe) 12.5 gm PRN Q15MIN PRN IV SEE COMMENTS; Start 11/07/18 at 09:15 Labetalol HCl (Normodyne Iv Push) 20 mg PRN Q2HR PRN IVP HYPERTENSION, SEE COMMENTS; Start 11/07/18 at 09:15 Acetaminophen (Tylenol) 650 mg PRN Q6HRS PRN PO MILD PAIN / TEMP; Start at 09:15 Amlodipine Besylate (Norvasc) 10 mg DAILY PO Last administered on 11/07/18at 09: 46; Start 11/07/18 at 10:00 Aspirin (Children'S Aspirin) 81 mg DAILYWBKFT PO Last administered on at 09:05; Start 11/07/18 at 10:00 Budesonide (Pulmicort) 0.5 mg RTBID NEB Last administered on 11/08/18at 07:42; Start 11/07/18 at 10:00 Carvedilol (Coreg) 3.125 mg BIDWMEALS PO ; Start 11/07/18 at 10:00; Status Cancel Ergocalciferol (Vitamin D2) 50,000 unit WEEKLY PO ; Start 11/14/18 at 09:00 Ferrous Sulfate (Feosol) 325 mg DAILY PO Last administered on 11/08/18 09:05; Start 11/07/18 at 10:00 Furosemide (Lasix) 80 mg DAILY PO Last administered on 11/07/18at 09:46; Start 11/07/18 at 10:00 Insulin Glargine (Lantus) 15 units QHS SQ ; Start 11/07/18 at 21:00 Levothyroxine Sodium (Synthroid) 175 mcg DAILY06 PO Last administered on 05:59; Start 11/07/18 at 10:00 Lisinopril (Prinivil) 20 mg DAILY PO Last administered on 11/07/18 09:47; Start 11/07/18 at 10:00 Metoclopramide HCl (Reglan) 5 mg BIDAC PO Last administered on 11/08/18 05:59 ; Start 11/07/18 at 10:00 Metoprolol Succinate (Toprol Xl) 12.5 mg DAILY PO Last administered on 09:51; Start 11/07/18 at 10:00 Ticagrelor (Brilinta) 90 mg BID PO Last administered on 11/07/18 22:07; Start 11/07/18 at 10:00 Trazodone HCl (Desyrel) 100 mg PRN QHS PRN PO INSOMNIA Last administered on 22:10; Start 11/07/18 at 09:15 Calcium Acetate (Phoslo) 667 mg TIDWMEALS PO Last administered on 11/07/18 11: 41; Start 11/07/18 at 12:00 Hydralazine HCl (Apresoline) 10 mg TID PO Last administered on 11/07/18 22:07 ; Start 11/07/18 at 14:00 Insulin Human Lispro (HumaLOG) 6 units TIDWMEALS SQ Last administered on 11:45; Start 11/07/18 at 09:30; Stop 11/07/18 at 16:01; Status DC Fish Oil (Fish Oil) 1,000 mg DAILY PO Last administered on 11/08/18at 09:06; Start 11/07/18 at 10:00 Pantoprazole Sodium (Protonix) 40 mg DAILYAC PO Last administered on 11/08/18at 05:59; Start 11/07/18 at 10:00 Acetaminophen/ Hydrocodone Bitart (Lortab 5/325) 1 tab PRN Q4HRS PRN PO MODERATE - SEVERE PAIN Last administered on 11/07/18at 22:10; Start 11/07/18 at 09:15 Nicotine (Nicoderm Cq 21mg) 1 patch PRN DAILY PRN TD SMOKING CESSATION; Start 11/07/18 at 11:15 Dextrose (Dextrose 50%-Water Syringe) 25 gm STK-MED ONCE IV ; Start 11/07/18 at 15:09; Stop 11/07/18 at 15:10; Status DC Sodium Chloride 1,000 ml @ 1,000 mls/hr Q1H PRN IV hypotension; Start 11/07/18 at 16:10; Stop 11/07/18 at 22:09; Status DC Info (PHARMACY MONITORING -- do not chart) 1 each PRN DAILY PRN MC SEE COMMENTS ; Start 11/07/18 at 16:15; Status UNV Info (PHARMACY MONITORING -- do not chart) 1 each PRN DAILY PRN MC SEE COMMENTS ; Start 11/07/18 at 16:15 Active Scripts Active Hydralazine Hcl 10 Mg Tablet 10 Mg PO TID MDD 1 Amlodipine Besylate 10 Mg Tablet 10 Mg PO DAILY MDD 1 Lisinopril 40 Mg Tablet 20 Mg PO DAILY MDD 1 [Pantoprazole] 40 MG Tablet.dr 40 Mg PO DAILYAC 30 Days Trazodone Hcl 100 Mg Tablet 100 Mg PO PRN QHS PRN 30 Days Lantus Solostar (Insulin Glargine,Hum.rec.anlog) 100 Unit/1 Ml Insuln.pen 15 Units SQ QHS 30 Days Budesonide 0.5 Mg/2 Ml Ampul.neb 0.5 Mg NEB RTBID 30 Days Aspirin 81 Mg Tab.chew 81 Mg PO DAILYWBKFT 30 Days Carvedilol (Carvedilol) 3.125 Mg Tablet 3.125 Mg PO BIDWMEALS 30 Days Duoneb 0.5-3(2.5) Mg/3 Ml (Albuterol/Ipratropium) 3 Ml Ampul.neb 3 Ml NEB RTQID 30 Days Brilinta (Ticagrelor) 90 Mg Tablet 90 Mg PO BID 30 Days Vitamin D2 (Ergocalciferol (Vitamin D2)) 50,000 Unit Capsule 50,000 Unit PO WEEKLY Reported [place] 3 Fish Oil Softgel ([place]-3 Fatty Acids/Fish Oil) 1 Each Capsule.dr 1 Each PO DAILY Toprol Xl (Metoprolol Succinate) 25 Mg Tab.er.24h 0.5 Tab PO DAILY Lasix (Furosemide) 80 Mg Tablet 80 Mg PO DAILY Calcium Acetate 667 Mg Tablet 667 Mg PO TIDWMEALS Tylenol (Acetaminophen) 325 Mg Tablet 650 Mg PO PRN Q6HRS Humalog (Insulin Lispro) 100 Unit/1 Ml Cartridge 6 Unit SQ TIDBFRMEAL Ferrous Sulfate 325 Mg Tablet 1 Tab PO DAILY Levothyroxine Sodium 175 Mcg Tablet 1 Tab PO DAILY Reglan (Metoclopramide Hcl) 10 Mg Tablet 5 Mg PO BIDAC Dialyvite Tablet (Folic Acid/Vitamin B Comp W-C) 1 Each Tablet 1 Each PO Vitals/I & O Vital Sign - Last 24 Hours 11/07/18 11/07/18 11/07/18 11/07/18 10:52 11:00 14:13 14:36 Temp 97.9 97.9 Pulse 69 69 Resp 21 B/P (MAP) 132/64 (86) 132/64 Pulse Ox 92 96 O2 Delivery Nasal Cannula Room Air Nasal Cannula O2 Flow Rate 3.0 3.0 11/07/18 11/07/18 11/07/18 11/07/18 19:00 20:00 20:24 22:07 Temp 97.7 97.7 Pulse 74 74 Resp 18 B/P (MAP) 155/71 (99) 155/71 Pulse Ox 92 O2 Delivery Nasal Cannula Nasal Cannula Room Air O2 Flow Rate 3.0 3.0 11/07/18 11/07/18 11/07/18 11/08/18 22:10 23:00 23:10 02:53 Temp 98.6 98.5 98.6 98.5 Pulse 81 65 Resp 18 18 18 18 B/P (MAP) 153/69 (97) 163/73 (103) Pulse Ox 92 94 92 97 O2 Delivery Nasal Cannula Nasal Cannula Nasal Cannula Nasal Cannula O2 Flow Rate 3.0 3.0 3.0 3.0 11/08/18 11/08/18 07:00 07:43 Temp 98.3 98.3 Pulse 77 Resp 18 B/P (MAP) 157/75 (102) Pulse Ox 96 97 O2 Delivery Nasal Cannula Nasal Cannula O2 Flow Rate 3.0 3.0 Intake and Output 11/07/18 11/07/18 11/08/18 15:00 23:00 07:00 Intake Total 240 ml 240 ml Output Total 0 ml 125 ml Balance 0 ml 240 ml 115 ml PABLO SHERMAN MD Nov 08, 2018 10:44
[2018-11-08 10:58] VITALS: BP 144/69
--- NOTE | 2018-11-08 12:19 | PDOC ---
Renal-Progress Notes Subjective Notes Notes LESS SOB History of Present Illness Hx of present illness BETTER Vitals Vitals Vital Signs Date Time Temp Pulse Resp B/P (MAP) Pulse Ox O2 Delivery O2 Flow Rate FiO2 11/08/18 11:21 Nasal Cannula 3.0 11/08/18 10:58 98.3 77 18 144/69 (94) 93 98.3 Weight Weight [ ] I.O. Intake and Output Intake and Output 11/08/18 07:00 Intake Total 480 ml Output Total 125 ml Balance 355 ml Intake Oral 480 ml Output Urine Total 125 ml Labs Labs Laboratory Tests Test 11/07/18 15:08 11/07/18 15:23 11/07/18 15:50 11/07/18 20:44 Glucose (Fingerstick) 26 mg/dL (70-99) 57 mg/dL (70-99) 77 mg/dL (70-99) 124 mg/dL (70-99) Glucose Level 90 mg/dL (70-99) Test 11/08/18 05:40 11/08/18 07:14 11/08/18 11:19 White Blood Count 6.0 x10^3/uL (4.0-11.0) Red Blood Count 3.47 x10^6/uL (4.30-5.70) Hemoglobin 9.7 g/dL (13.0-17.5) Hematocrit 30.3 % (39.0-53.0) Mean Corpuscular Volume 87 fL (79-100) Mean Corpuscular Hemoglobin 28 pg (25-35) Mean Corpuscular Hemoglobin Concent 32 g/dL (31-37) Red Cell Distribution Width 18.6 % (11.5-14.5) Platelet Count 251 x10^3/uL (140-400) Sodium Level 133 mmol/L (136-145) Potassium Level 4.9 mmol/L (3.5-5.1) Chloride Level 96 mmol/L (98-107) Carbon Dioxide Level 26 mmol/L (21-32) Anion Gap 11 (6-14) Blood Urea Nitrogen 28 mg/dL (8-26) Creatinine 5.5 mg/dL (0.7-1.3) Estimated GFR (Cockcroft-Gault) 10.8 Glucose Level 346 mg/dL (70-99) Calcium Level 8.5 mg/dL (8.5-10.1) Glucose (Fingerstick) 348 mg/dL (70-99) 286 mg/dL (70-99) Review of Systems Constitutional: yes: alert, oriented Ears/Nose/Throat: Yes: no symptom reported Eyes: Yes: no symptom reported Pulmonary: Yes dyspnea Cardiovascular: Yes no symptom reported Gastrointestional: Yes: no symptom reported Genitourinary: Yes: no symptom reported Musculoskeletal: Yes: no symptom reported Skin: Yes no symptom reported Psychiatric/Neurological: Yes: no symptom reported Endocrine: Yes: no symptom reported Physical Exam General Appearance: no apparent distress Skin: warm Respiratory: decreased breath sounds Heart: S1S2 Abdomen: soft, bowel sounds present Genitourinary: bladder flat Extremities: pulses present Neurology: alert Assessment Assessment IMP PL EFFUSION ANEMIA NON COMPLIANCE DM II HTN ESRD PLAN S/P THORACENTESIS HD TODAY UF TO DW ENC COMPLIANCE START FABIAN ALM ATKINS MD Nov 08, 2018 12:19
--- NOTE | 2018-11-08 12:30 | RAD ---
Ultrasound-guided right-sided thoracentesis 11/08/2018 12:26 PM Indication: Bilateral pleural effusions, shortness of breath. Procedure: Informed consent was obtained. A timeout procedure was performed. Sonographic evaluation of the right chest was performed demonstrating moderate pleural effusion. The right posterior chest was prepped and draped in sterile fashion. 1% lidocaine without epinephrine was administered for local anesthesia. Real-time ultrasonographic guidance was used in passing a 5 [employer] catheter into the right pleural space. 1.7 L of serosanguineous pleural fluid was removed. Samples of fluid were sent to the lab for further evaluation per ordering physician request. The catheter was removed and pressure held to achieve hemostasis. A sterile dressing was applied. No immediate complications were identified. The patient tolerated the procedure well. Impression: Right sided ultrasound-guided thoracentesis
[2018-11-08 14:10] LABS: ALBUMIN 2.6 g/dL (3.4-5.0); ALBUMIN/GLOBULIN RATIO 0.7 (1.0-1.7); CALCIUM 8.6 mg/dL (8.5-10.1); CREATININE 5.3 mg/dL (0.7-1.3); GFR 11.3; TOTAL BILIRUBIN 0.4 mg/dL (0.2-1.0); TOTAL PROTEIN 6.6 g/dL (6.4-8.2)
--- NOTE | 2018-11-08 14:18 | RAD ---
Examination: Single frontal view the chest. HISTORY: History of effusion COMPARISON: 10/02/2018. FINDINGS: Low lung volumes and technique accentuates heart size and pulmonary vascularity. Large right-sided pleural effusion and small left-sided pleural effusion identified. Moderate diffuse prominent bilateral interstitial lung markings likely congestive changes. Mild cardiomegaly. Impression: 1. Large right-sided pleural effusion. Small left-sided pleural effusion. 2. Moderate congestive changes Electronically signed by: Aristeo Marie MD (11/08/2018 2:16 PM) [place] [id number]
[2018-11-08] MEDS ORDERED: IV NORMAL SALINE 1000ML BAG 1,000 ML IV PRN ×2 (14:23)
[2018-11-08] MEDS ORDERED: DIALYSIS PATIENT. MC PRN (14:30)
[2018-11-08] MEDS: HYDROcodone/APAP 5/325MG 1 TAB TABLET PO PRN (17:45)
[2018-11-08] MEDS: amLODIPine BESYLATE 10 MG TABLET PO SCH (17:46)
[2018-11-08] MEDS: LISINOPRIL 20 MG TABLET PO SCH (17:46)
[2018-11-08] MEDS: FUROSEMIDE 80 MG TABLET. PO SCH (17:46)
[2018-11-08] MEDS: METOPROLOL SUCC 24HR ER 25 MG TAB.ER.24H. PO SCH (17:48)
[2018-11-08 19:00] VITALS: BP 143/68
[2018-11-08] MEDS: INSULIN GLARGINE 300 UNITS/3 ML INSULN.PEN. SQ SCH (21:05)
[2018-11-08 23:02] VITALS: BP 111/56
[2018-11-09] VITALS (8 sets, daily range): BP systolic 108–166; BP diastolic 53–72
[2018-11-09] MEDS ORDERED: IOHEXOL 300 MG/ML 100ML VIAL. IV ONE (07:00)
[2018-11-09] MEDS: BUDESONIDE 0.5 MG/2 ML NEBU. NEB SCH ×2 (07:32→20:02)
[2018-11-09] MEDS: IPRATRPIUM/ALBUTEROL 0.5/2.5MG 3 ML NEBU. NEB SCH ×4 (07:32→20:01)
--- NOTE | 2018-11-09 08:26 | RAD ---
CT CHEST W/CONTRAST Indication: Pleural effusion, shortness of breath. Patient on dialysis. Exposure: One or more of the following individualized dose reduction techniques were utilized for this examination: 1. Automated exposure control 2. Adjustment of the mA and/or kV according to patient size 3. Use of iterative reconstruction technique. Comparison: August 20, 2018 Contrast: Intravenous contrast given. No the thoracic aorta is mildly calcified. No evidence of aneurysm or dissection. Proximal great vessels are patent. The large central pulmonary arteries are grossly patent. Small axillary lymph nodes are identified, more so on the right measuring up to 11 mm in short axis. There is fatty stranding in the right axillary region with swelling. Bilateral gynecomastia. Small mediastinal lymph nodes are identified and appear similar to the previous exam. 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 No significant pericardial effusion. Coronary artery calcifications are identified. Thyroid is heterogeneous. No significant esophageal distention. Large right pleural effusion. [id number] left pleural effusion. Both demonstrate simple fluid nature. The right lower lobe is mostly consolidated and collapsed. Much of the right upper lobe is also consolidated or collapsed with some aerated lung superiorly. There is mild atelectasis/consolidation in the left lower lobe. No evidence of pneumothorax. The trachea is patent. Peripheral right upper and right lower lobe bronchi within the consolidation are poorly defined, could be due to distal mucous plugging. Scans through the upper abdomen are limited due to the technique. No definite acute findings. Degenerative spondylosis of the visualized spine, spine appears similar. There is some mild patchy sclerosis within the midst are, with an anterior sternal cortical defect, findings which were not apparent on the prior exam. Uncertain as to whether this is acute or chronic, but is new since the previous study. IMPRESSION: 1. Large right pleural effusion, [id number] left pleural effusion. 2. Bilateral gynecomastia again demonstrated. 3. Small right axillary and mediastinal lymph nodes are again identified, overall similar. 4. Development of swelling and fatty stranding within the right axilla and adjacent chest, suspicious for edema or inflammation. 5. Extensive consolidation/collapse of the right lung with a small remaining area of aerated right upper lobe. 6. Development of an area of patchy sclerosis and lucency at the sternum with an anterior cortical defect. Uncertain significance, assuming there has not been surgical intervention since previous scan. Possibilities include nonacute fracture or osteomyelitis, depending on clinical findings. Bone scan could be of benefit to determine if there is activity in this area. Electronically signed by: Fausto Rea MD (11/09/2018 8:23 AM) [id number]
[2018-11-09] MEDS ORDERED: hydrALAZINE 10 MG TABLET ONE ×2 (09:00)
[2018-11-09] MEDS: INSULIN LISPRO 300 UNITS/3 ML INSULN.PEN. SQ SCH ×4 (09:18→22:48)
--- NOTE | 2018-11-09 09:22 | PDOC ---
PULMONARY PROGRESS NOTES Subjective patient still SOA Vitals Vital Signs Date Time Temp Pulse Resp B/P (MAP) Pulse Ox O2 Delivery O2 Flow Rate FiO2 11/09/18 07:34 96 Nasal Cannula 3.0 11/09/18 07:00 98.6 73 17 150/63 (92) 98.6 ROS: No Nausea, No Chest Pain, No Abdominal Pain, No Increase Cough General: Alert, No acute distress HEENT: Other Lungs: Other (DECREASE BS IN BASE) Cardiovascular: S1, S2 Abdomen: Soft, Non-tender Neuro Exam: Alert Extremities: Other (EDEMA) Skin: Warm Labs Laboratory Tests Test 11/07/18 10:05 11/07/18 11:06 11/07/18 11:46 11/07/18 15:08 Hepatitis B Surface Antigen Nonreactive (Nonreactive) Glucose (Fingerstick) 201 mg/dL (70-99) 26 mg/dL (70-99) Prothrombin Time 13.8 SEC (11.7-14.0) Prothromb Time International Ratio 1.1 (0.8-1.1) Activated Partial Thromboplast Time 36 SEC (24-38) Test 11/07/18 15:23 11/07/18 15:50 11/07/18 20:44 11/08/18 05:40 Glucose (Fingerstick) 57 mg/dL (70-99) 77 mg/dL (70-99) 124 mg/dL (70-99) Glucose Level 90 mg/dL (70-99) 333 mg/dL (70-99) White Blood Count 6.0 x10^3/uL (4.0-11.0) Red Blood Count 3.47 x10^6/uL (4.30-5.70) Hemoglobin 9.7 g/dL (13.0-17.5) Hematocrit 30.3 % (39.0-53.0) Mean Corpuscular Volume 87 fL (79-100) Mean Corpuscular Hemoglobin 28 pg (25-35) Mean Corpuscular Hemoglobin Concent 32 g/dL (31-37) Red Cell Distribution Width 18.6 % (11.5-14.5) Platelet Count 251 x10^3/uL (140-400) Sodium Level 133 mmol/L (136-145) Potassium Level 5.0 mmol/L (3.5-5.1) Chloride Level 97 mmol/L (98-107) Carbon Dioxide Level 23 mmol/L (21-32) Anion Gap 13 (6-14) Blood Urea Nitrogen 28 mg/dL (8-26) Creatinine 5.3 mg/dL (0.7-1.3) Estimated GFR (Cockcroft-Gault) 11.3 BUN/Creatinine Ratio 5 (6-20) Calcium Level 8.6 mg/dL (8.5-10.1) Total Bilirubin 0.4 mg/dL (0.2-1.0) Aspartate Amino Transf (AST/SGOT) 13 U/L (15-37) Alanine Aminotransferase (ALT/SGPT) 8 U/L (16-63) Alkaline Phosphatase 106 U/L (46-116) Total Protein 6.6 g/dL (6.4-8.2) Albumin 2.6 g/dL (3.4-5.0) Albumin/Globulin Ratio 0.7 (1.0-1.7) Test 11/08/18 07:14 11/08/18 11:19 11/08/18 17:24 11/08/18 20:33 Glucose (Fingerstick) 348 mg/dL (70-99) 286 mg/dL (70-99) 122 mg/dL (70-99) 233 mg/dL (70-99) Test 11/09/18 05:22 11/09/18 07:19 Glucose (Fingerstick) 224 mg/dL (70-99) 192 mg/dL (70-99) Laboratory Tests Test 11/08/18 11:19 11/08/18 17:24 11/08/18 20:33 11/09/18 05:22 Glucose (Fingerstick) 286 mg/dL (70-99) 122 mg/dL (70-99) 233 mg/dL (70-99) 224 mg/dL (70-99) Test 11/09/18 07:19 Glucose (Fingerstick) 192 mg/dL (70-99) Medications Active Scripts Medications Dose Route/Sig Max Daily Dose Days Date Category [place] 3 Fish Oil Softgel ([place]-3 Fatty Acids/Fish Oil) 1 Each Capsule.dr 1 Each PO DAILY 11/07/18 Reported Toprol Xl (Metoprolol Succinate) 25 Mg Tab.er.24h 0.5 Tab PO DAILY 11/07/18 Reported Lasix (Furosemide) 80 Mg Tablet 80 Mg PO DAILY 11/07/18 Reported Calcium Acetate 667 Mg Tablet 667 Mg PO TIDWMEALS 11/07/18 Reported Hydralazine Hcl 10 Mg Tablet 10 Mg PO TID MDD 1 10/04/18 Rx Amlodipine Besylate 10 Mg Tablet 10 Mg PO DAILY MDD 1 10/04/18 Rx Lisinopril 40 Mg Tablet 20 Mg PO DAILY MDD 1 10/04/18 Rx Tylenol (Acetaminophen) 325 Mg Tablet 650 Mg PO PRN Q6HRS 10/02/18 Reported Humalog (Insulin Lispro) 100 Unit/1 Ml Cartridge 6 Unit SQ TIDBFRMEAL 10/02/18 Reported Ferrous Sulfate 325 Mg Tablet 1 Tab PO DAILY 09/15/18 Reported Levothyroxine Sodium 175 Mcg Tablet 1 Tab PO DAILY 09/15/18 Reported Reglan (Metoclopramide Hcl) 10 Mg Tablet 5 Mg PO BIDAC 09/15/18 Reported [Pantoprazole] 40 MG Tablet.dr 40 Mg PO DAILYAC 30 09/09/18 Rx Trazodone Hcl 100 Mg Tablet 100 Mg PO PRN QHS PRN 30 09/09/18 Rx Lantus Solostar (Insulin Glargine,Hum.rec.anlog) 100 Unit/1 Ml Insuln.pen 15 Units SQ QHS 30 09/09/18 Rx Budesonide 0.5 Mg/2 Ml Ampul.neb 0.5 Mg NEB RTBID 30 08/29/18 Rx Aspirin 81 Mg Tab.chew 81 Mg PO DAILYWBKFT 30 08/29/18 Rx Carvedilol (Carvedilol) 3.125 Mg Tablet 3.125 Mg PO BIDWMEALS 30 08/29/18 Rx Duoneb 0.5-3(2.5) Mg/3 Ml (Albuterol/Ipratropium) 3 Ml Ampul.neb 3 Ml NEB RTQID 30 08/29/18 Rx Brilinta (Ticagrelor) 90 Mg Tablet 90 Mg PO BID 30 08/29/18 Rx Vitamin D2 (Ergocalciferol (Vitamin D2)) 50,000 Unit Capsule 50,000 Unit PO WEEKLY 04/02/18 Rx Dialyvite Tablet (Folic Acid/Vitamin B Comp W-C) 1 Each Tablet 1 Each PO 03/28/18 Reported Impression . IMPRESSION: 1. Acute on chronic hypoxemic respiratory failure. 2. Bilateral pleural effusions, left greater than right. 3. End-stage renal disease, noncompliant with hemodialysis. 4. Hypertension. 5. Chronic obstructive pulmonary disease. 6. Tobacco dependent. 7. Coronary artery disease with previous stent placement. Plan . reviewed CT chest with Dr. Elliott patient will undergo chest tube placement for drainage case discussed with Dr. Durbin etiology plural fluid is unclear YOSI ZHANG MD Nov 09, 2018 09:22
[2018-11-09] MEDS: LEVOTHYROXINE 175 MCG TABLET PO SCH (09:32)
--- NOTE | 2018-11-09 10:37 | PDOC ---
PROGRESS NOTES History of Present Illness History of Present Illness Assessment/Plan Assessment/Plan IMPRESSION: on ct today 1. Large right pleural effusion, [id number] left pleural effusion. 2. Bilateral gynecomastia 3. Small right axillary and mediastinal lymph nodes 4. Development of swelling and fatty stranding within the right axilla and adjacent chest, suspicious for edema or inflammation. 5. Extensive consolidation/collapse of the right lung with a small remaining area of aerated right upper lobe. possible mucous plugging 6. Development of an area of patchy sclerosis and lucency at the sternum with an anterior cortical defect. Possibilities include nonacute fracture or osteomyelitis, depending on clinical findings. Bone scan could be of benefit ESRD Tuesday on dialysis Anemia of ESRD Hypertension, controlled Diabetes-controlled History of cardiac stents-chronic stable PLAN: D/W DR Zhang by phone this AM, concern for mucous plugging id consult IR for thoracentesis 11/08 pulmonary following sliding scale insulin home meds discussed my plan of care in room ct reviewed Counseling against smoking Nicotine patch prn nephrology for dialysis iv zosyn and vanc per pharmacy blood cult x 1 mrsa nasal screen Vitals Vitals Vital Signs Date Time Temp Pulse Resp B/P (MAP) Pulse Ox O2 Delivery O2 Flow Rate FiO2 11/09/18 07:34 96 Nasal Cannula 3.0 11/09/18 07:00 98.6 73 17 150/63 (92) 98.6 Physical Exam General: Alert, Oriented X3, Cooperative, mild distress Heart: Regular rate, Normal S1, Normal S2 Lungs: Other (DECREASE BS IN BASE) Abdomen: Normal bowel sounds, Soft, No tenderness Extremities: No clubbing, No cyanosis Skin: No breakdown Labs LABS STATUS: ADM IN ORD. PHYSICIAN: YOSI ZHANG MD REASON: EFFUSION PROCEDURE: CT CHEST W/CONTRAST CT CHEST W/CONTRAST Indication: Pleural effusion, shortness of breath. Patient on dialysis. Exposure: One or more of the following individualized dose reduction techniques were utilized for this examination: 1. Automated exposure control 2. Adjustment of the mA and/or kV according to patient size 3. Use of iterative reconstruction technique. Comparison: August 20, 2018 Contrast: Intravenous contrast given. No the thoracic aorta is mildly calcified. No evidence of aneurysm or dissection. Proximal great vessels are patent. The large central pulmonary arteries are grossly patent. Small axillary lymph nodes are identified, more so on the right measuring up to 11 mm in short axis. There is fatty stranding in the right axillary region with swelling. Bilateral gynecomastia. Small mediastinal lymph nodes are identified and appear similar to the previous exam. 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 No significant pericardial effusion. Coronary artery calcifications are identified. Thyroid is heterogeneous. No significant esophageal distention. Large right pleural effusion. [id number] left pleural effusion. Both demonstrate simple fluid nature. The right lower lobe is mostly consolidated and collapsed. Much of the right upper lobe is also consolidated or collapsed with some aerated lung superiorly. There is mild atelectasis/consolidation in the left lower lobe. No evidence of pneumothorax. The trachea is patent. Peripheral right upper and right lower lobe bronchi within the consolidation are poorly defined, could be due to distal mucous plugging. Scans through the upper abdomen are limited due to the technique. No definite acute findings. Degenerative spondylosis of the visualized spine, spine appears similar. There is some mild patchy sclerosis within the midst are, with an anterior sternal cortical defect, findings which were not apparent on the prior exam. Uncertain as to whether this is acute or chronic, but is new since the previous study. IMPRESSION: 1. Large right pleural effusion, [id number] left pleural effusion. 2. Bilateral gynecomastia again demonstrated. 3. Small right axillary and mediastinal lymph nodes are again identified, overall similar. 4. Development of swelling and fatty stranding within the right axilla and adjacent chest, suspicious for edema or inflammation. 5. Extensive consolidation/collapse of the right lung with a small remaining area of aerated right upper lobe. 6. Development of an area of patchy sclerosis and lucency at the sternum with an anterior cortical defect. Uncertain significance, assuming there has not been surgical intervention since previous scan. Possibilities include nonacute fracture or osteomyelitis, depending on clinical findings. Bone scan could be of benefit to determine if there is activity in this area. Electronically signed by: Fausto Rea MD (11/09/2018 8:23 AM) [id number] Laboratory Tests Test 11/08/18 11:19 11/08/18 17:24 11/08/18 20:33 11/09/18 05:22 Glucose (Fingerstick) 286 mg/dL (70-99) 122 mg/dL (70-99) 233 mg/dL (70-99) 224 mg/dL (70-99) Test 11/09/18 07:19 Glucose (Fingerstick) 192 mg/dL (70-99) Comment Review of Relevant I have reviewed the following items yesenia (where applicable) has been applied. Labs Laboratory Tests Test 11/07/18 11:06 11/07/18 11:46 11/07/18 15:08 11/07/18 15:23 Glucose (Fingerstick) 201 mg/dL (70-99) 26 mg/dL (70-99) 57 mg/dL (70-99) Prothrombin Time 13.8 SEC (11.7-14.0) Prothromb Time International Ratio 1.1 (0.8-1.1) Activated Partial Thromboplast Time 36 SEC (24-38) Test 11/07/18 15:50 11/07/18 20:44 11/08/18 05:40 11/08/18 07:14 Glucose Level 90 mg/dL (70-99) 333 mg/dL (70-99) Glucose (Fingerstick) 77 mg/dL (70-99) 124 mg/dL (70-99) 348 mg/dL (70-99) White Blood Count 6.0 x10^3/uL (4.0-11.0) Red Blood Count 3.47 x10^6/uL (4.30-5.70) Hemoglobin 9.7 g/dL (13.0-17.5) Hematocrit 30.3 % (39.0-53.0) Mean Corpuscular Volume 87 fL (79-100) Mean Corpuscular Hemoglobin 28 pg (25-35) Mean Corpuscular Hemoglobin Concent 32 g/dL (31-37) Red Cell Distribution Width 18.6 % (11.5-14.5) Platelet Count 251 x10^3/uL (140-400) Sodium Level 133 mmol/L (136-145) Potassium Level 5.0 mmol/L (3.5-5.1) Chloride Level 97 mmol/L (98-107) Carbon Dioxide Level 23 mmol/L (21-32) Anion Gap 13 (6-14) Blood Urea Nitrogen 28 mg/dL (8-26) Creatinine 5.3 mg/dL (0.7-1.3) Estimated GFR (Cockcroft-Gault) 11.3 BUN/Creatinine Ratio 5 (6-20) Calcium Level 8.6 mg/dL (8.5-10.1) Total Bilirubin 0.4 mg/dL (0.2-1.0) Aspartate Amino Transf (AST/SGOT) 13 U/L (15-37) Alanine Aminotransferase (ALT/SGPT) 8 U/L (16-63) Alkaline Phosphatase 106 U/L (46-116) Total Protein 6.6 g/dL (6.4-8.2) Albumin 2.6 g/dL (3.4-5.0) Albumin/Globulin Ratio 0.7 (1.0-1.7) Test 11/08/18 11:19 11/08/18 17:24 11/08/18 20:33 11/09/18 05:22 Glucose (Fingerstick) 286 mg/dL (70-99) 122 mg/dL (70-99) 233 mg/dL (70-99) 224 mg/dL (70-99) Test 11/09/18 07:19 Glucose (Fingerstick) 192 mg/dL (70-99) Laboratory Tests Test 11/08/18 11:19 11/08/18 17:24 11/08/18 20:33 11/09/18 05:22 Glucose (Fingerstick) 286 mg/dL (70-99) 122 mg/dL (70-99) 233 mg/dL (70-99) 224 mg/dL (70-99) Test 11/09/18 07:19 Glucose (Fingerstick) 192 mg/dL (70-99) Medications Current Medications Dextrose (Dextrose 50%-Water Syringe) 12.5 gm PRN Q15MIN PRN IV SEE COMMENTS; Start 11/07/18 at 03:30; Stop 11/07/18 at 07:42; Status DC Albuterol/ Ipratropium (Duoneb) 3 ml RTQID NEB Last administered on 11/09/18at 07:32; Start 11/07/18 at 08:00 Albuterol/ Ipratropium (Duoneb) 3 ml 1X ONCE NEB Last administered on at 05:50; Start 11/07/18 at 05:45; Stop 11/07/18 at 05:46; Status DC Albuterol Sulfate (Ventolin Neb Soln) 2.5 mg PRN Q4HRS PRN NEB SHORTNESS OF BREATH; Start 11/07/18 at 05:45 Furosemide (Lasix) 40 mg 1X ONCE IVP Last administered on 11/07/18at 05:49; Start 11/07/18 at 05:45; Stop 11/07/18 at 05:46; Status DC Insulin Human Lispro (HumaLOG) 20 units 1X ONCE SQ Last administered on at 07:58; Start 11/07/18 at 07:45; Stop 11/07/18 at 07:46; Status DC Insulin Human Lispro (HumaLOG) 0-7 UNITS TIDWMEALS SQ ; Start 11/07/18 at 12:00 ; Stop 11/07/18 at 12:00; Status DC Dextrose (Dextrose 50%-Water Syringe) 12.5 gm PRN Q15MIN PRN IV SEE COMMENTS; Start 11/07/18 at 07:45; Stop 11/07/18 at 09:06; Status DC Insulin Human Lispro (HumaLOG) 0-9 UNITS TIDWMEALS SQ Last administered on 11/09at 09:18; Start 11/07/18 at 09:30 Dextrose (Dextrose 50%-Water Syringe) 12.5 gm PRN Q15MIN PRN IV SEE COMMENTS; Start 11/07/18 at 09:15 Labetalol HCl (Normodyne Iv Push) 20 mg PRN Q2HR PRN IVP HYPERTENSION, SEE COMMENTS; Start 11/07/18 at 09:15 Acetaminophen (Tylenol) 650 mg PRN Q6HRS PRN PO MILD PAIN / TEMP; Start at 09:15 Amlodipine Besylate (Norvasc) 10 mg DAILY PO Last administered on 11/08/18at 17: 46; Start 11/07/18 at 10:00 Aspirin (Children'S Aspirin) 81 mg DAILYWBKFT PO Last administered on at 09:05; Start 11/07/18 at 10:00 Budesonide (Pulmicort) 0.5 mg RTBID NEB Last administered on 11/09/18at 07:32; Start 11/07/18 at 10:00 Carvedilol (Coreg) 3.125 mg BIDWMEALS PO ; Start 11/07/18 at 10:00; Status Cancel Ergocalciferol (Vitamin D2) 50,000 unit WEEKLY PO ; Start 11/14/18 at 09:00 Ferrous Sulfate (Feosol) 325 mg DAILY PO Last administered on 11/08/18 09:05; Start 11/07/18 at 10:00 Furosemide (Lasix) 80 mg DAILY PO Last administered on 11/08/18 17:46; Start 11/07/18 at 10:00 Insulin Glargine (Lantus) 15 units QHS SQ Last administered on 11/08/18 21:05 ; Start 11/07/18 at 21:00 Levothyroxine Sodium (Synthroid) 175 mcg DAILY06 PO Last administered on 09:32; Start 11/07/18 at 10:00 Lisinopril (Prinivil) 20 mg DAILY PO Last administered on 11/08/18 17:46; Start 11/07/18 at 10:00 Metoclopramide HCl (Reglan) 5 mg BIDAC PO Last administered on 11/08/18 17:46 ; Start 11/07/18 at 10:00 Metoprolol Succinate (Toprol Xl) 12.5 mg DAILY PO Last administered on 17:48; Start 11/07/18 at 10:00 Ticagrelor (Brilinta) 90 mg BID PO Last administered on 11/08/18 17:47; Start 11/07/18 at 10:00 Trazodone HCl (Desyrel) 100 mg PRN QHS PRN PO INSOMNIA Last administered on 22:10; Start 11/07/18 at 09:15 Calcium Acetate (Phoslo) 667 mg TIDWMEALS PO Last administered on 11/08/18 17: 44; Start 11/07/18 at 12:00 Hydralazine HCl (Apresoline) 10 mg TID PO Last administered on 11/08/18 17:49 ; Start 11/07/18 at 14:00 Insulin Human Lispro (HumaLOG) 6 units TIDWMEALS SQ Last administered on 11:45; Start 11/07/18 at 09:30; Stop 11/07/18 at 16:01; Status DC Fish Oil (Fish Oil) 1,000 mg DAILY PO Last administered on 11/08/18at 09:06; Start 11/07/18 at 10:00 Pantoprazole Sodium (Protonix) 40 mg DAILYAC PO Last administered on 11/08/18at 05:59; Start 11/07/18 at 10:00 Acetaminophen/ Hydrocodone Bitart (Lortab 5/325) 1 tab PRN Q4HRS PRN PO MODERATE - SEVERE PAIN Last administered on 11/08/18at 17:45; Start 11/07/18 at 09:15 Nicotine (Nicoderm Cq 21mg) 1 patch PRN DAILY PRN TD SMOKING CESSATION; Start 11/07/18 at 11:15 Dextrose (Dextrose 50%-Water Syringe) 25 gm STK-MED ONCE IV ; Start 11/07/18 at 15:09; Stop 11/07/18 at 15:10; Status DC Sodium Chloride 1,000 ml @ 1,000 mls/hr Q1H PRN IV hypotension; Start 11/07/18 at 16:10; Stop 11/07/18 at 22:09; Status DC Info (PHARMACY MONITORING -- do not chart) 1 each PRN DAILY PRN MC SEE COMMENTS ; Start 11/07/18 at 16:15; Status UNV Info (PHARMACY MONITORING -- do not chart) 1 each PRN DAILY PRN MC SEE COMMENTS ; Start 11/07/18 at 16:15 Sodium Chloride 1,000 ml @ 1,000 mls/hr Q1H PRN IV hypotension; Start 11/08/18 at 14:23; Stop 11/08/18 at 20:22; Status DC Sodium Chloride 1,000 ml @ 400 mls/hr Q2H30M PRN IV PATENCY; Start 11/08/18 at 14:23; Stop 11/09/18 at 02:22; Status DC Info (PHARMACY MONITORING -- do not chart) 1 each PRN DAILY PRN MC SEE COMMENTS ; Start 11/08/18 at 14:30 Iohexol (Omnipaque 300 Mg/ml) 75 ml 1X ONCE IV Last administered on 11/09/18at 07:40; Start 11/09/18 at 07:00; Stop 11/09/18 at 07:01; Status DC Active Scripts Active Hydralazine Hcl 10 Mg Tablet 10 Mg PO TID MDD 1 Amlodipine Besylate 10 Mg Tablet 10 Mg PO DAILY MDD 1 Lisinopril 40 Mg Tablet 20 Mg PO DAILY MDD 1 [Pantoprazole] 40 MG Tablet.dr 40 Mg PO DAILYAC 30 Days Trazodone Hcl 100 Mg Tablet 100 Mg PO PRN QHS PRN 30 Days Lantus Solostar (Insulin Glargine,Hum.rec.anlog) 100 Unit/1 Ml Insuln.pen 15 Units SQ QHS 30 Days Budesonide 0.5 Mg/2 Ml Ampul.neb 0.5 Mg NEB RTBID 30 Days Aspirin 81 Mg Tab.chew 81 Mg PO DAILYWBKFT 30 Days Carvedilol (Carvedilol) 3.125 Mg Tablet 3.125 Mg PO BIDWMEALS 30 Days Duoneb 0.5-3(2.5) Mg/3 Ml (Albuterol/Ipratropium) 3 Ml Ampul.neb 3 Ml NEB RTQID 30 Days Brilinta (Ticagrelor) 90 Mg Tablet 90 Mg PO BID 30 Days Vitamin D2 (Ergocalciferol (Vitamin D2)) 50,000 Unit Capsule 50,000 Unit PO WEEKLY Reported [place] 3 Fish Oil Softgel ([place]-3 Fatty Acids/Fish Oil) 1 Each Capsule. 1 Each PO DAILY Toprol Xl (Metoprolol Succinate) 25 Mg Tab.er.24h 0.5 Tab PO DAILY Lasix (Furosemide) 80 Mg Tablet 80 Mg PO DAILY Calcium Acetate 667 Mg Tablet 667 Mg PO TIDWMEALS Tylenol (Acetaminophen) 325 Mg Tablet 650 Mg PO PRN Q6HRS Humalog (Insulin Lispro) 100 Unit/1 Ml Cartridge 6 Unit SQ TIDBFRMEAL Ferrous Sulfate 325 Mg Tablet 1 Tab PO DAILY Levothyroxine Sodium 175 Mcg Tablet 1 Tab PO DAILY Reglan (Metoclopramide Hcl) 10 Mg Tablet 5 Mg PO BIDAC Dialyvite Tablet (Folic Acid/Vitamin B Comp W-C) 1 Each Tablet 1 Each PO Vitals/I & O Vital Sign - Last 24 Hours 11/08/18 11/08/18 11/08/18 11/08/18 10:58 11:21 15:21 17:45 Temp 98.3 98.3 Pulse 77 Resp 18 20 B/P (MAP) 144/69 (94) Pulse Ox 93 93 O2 Delivery Nasal Cannula Nasal Cannula Nasal Cannula Nasal Cannula O2 Flow Rate 3.0 3.0 3.0 3.0 11/08/18 11/08/18 11/08/18 11/08/18 17:46 17:46 17:48 17:49 Pulse 85 85 85 85 B/P (MAP) 185/82 185/82 185/82 185/82 11/08/18 11/08/18 11/08/18 11/09/18 19:00 20:00 23:02 03:12 Temp 99.0 99.5 98.9 99.0 99.5 98.9 Pulse 80 80 77 Resp 20 20 20 B/P (MAP) 143/68 (93) 111/56 (74) 166/71 (102) Pulse Ox 97 95 96 O2 Delivery Nasal Cannula Nasal Cannula Nasal Cannula Nasal Cannula O2 Flow Rate 3.0 11/09/18 11/09/18 07:00 07:34 Temp 98.6 98.6 Pulse 73 Resp 17 B/P (MAP) 150/63 (92) Pulse Ox 96 96 O2 Delivery Nasal Cannula Nasal Cannula O2 Flow Rate 3.0 Intake and Output 11/08/18 11/08/18 11/09/18 15:00 23:00 07:00 Intake Total 480 ml Output Total 0 ml Balance 480 ml 0 ml PABLO SHERMAN MD Nov 09, 2018 10:37
[2018-11-09] MEDS: PANTOPRAZOLE 40 MG TABLET.DR. PO SCH (11:05)
[2018-11-09] MEDS: CALCIUM ACETATE 667 MG CAPSULE PO SCH ×3 (11:06→17:21)
[2018-11-09] MEDS: ASPIRIN CHEWABLE 81 MG TABLET. PO SCH (11:06)
[2018-11-09] MEDS: METOCLOPRAMIDE 5 MG TABLET. PO SCH ×2 (11:06→17:22)
[2018-11-09] MEDS: hydrALAZINE 10 MG TABLET PO SCH ×3 (11:07→21:52)
[2018-11-09] MEDS: TICAGRELOR 90 MG TABLET. PO SCH ×2 (11:07→21:51)
[2018-11-09] MEDS: FUROSEMIDE 80 MG TABLET. PO SCH (11:08)
[2018-11-09] MEDS: FERROUS SULFATE 325 MG TABLET. PO SCH (11:08)
[2018-11-09] MEDS: OMEGA-3 FATTY ACIDS/FISH OIL 1,000 MG CAPSULE. PO SCH (11:08)
[2018-11-09] MEDS: METOPROLOL SUCC 24HR ER 25 MG TAB.ER.24H. PO SCH (11:10)
[2018-11-09] MEDS: amLODIPine BESYLATE 10 MG TABLET PO SCH (11:11)
[2018-11-09] MEDS: LISINOPRIL 20 MG TABLET PO SCH (11:11)
[2018-11-09] MEDS ORDERED: PIP/TAZO PER PHARMACY MC PRN (12:00)
[2018-11-09] MEDS: PIPERACILLIN/TAZOBACTAM 2.25 GM in IV NORMAL SALINE 50ML 50 ML IV SCH ×2 (12:40→21:52)
--- NOTE | 2018-11-09 12:41 | PDOC ---
Renal-Progress Notes Subjective Notes Notes STILL SOME SOB History of Present Illness Hx of present illness ? MUCUS PLUGGING Vitals Vitals Vital Signs Date Time Temp Pulse Resp B/P (MAP) Pulse Ox O2 Delivery O2 Flow Rate FiO2 11/09/18 11:40 94 Nasal Cannula 3.0 11/09/18 11:11 79 166/72 11/09/18 07:00 98.6 17 98.6 Weight Weight [ ] I.O. Intake and Output Intake and Output 11/09/18 07:00 Intake Total 480 ml Output Total 0 ml Balance 480 ml Intake Oral 480 ml Output Urine Total 0 ml # Voids 1 Labs Labs Laboratory Tests Test 11/08/18 17:24 11/08/18 20:33 11/09/18 05:22 11/09/18 07:19 Glucose (Fingerstick) 122 mg/dL (70-99) 233 mg/dL (70-99) 224 mg/dL (70-99) 192 mg/dL (70-99) Test 11/09/18 11:29 Glucose (Fingerstick) 242 mg/dL (70-99) Review of Systems Constitutional: yes: alert, oriented Ears/Nose/Throat: Yes: no symptom reported Eyes: Yes: no symptom reported Pulmonary: Yes dyspnea Cardiovascular: Yes no symptom reported Gastrointestional: Yes: no symptom reported Genitourinary: Yes: no symptom reported Musculoskeletal: Yes: no symptom reported Skin: Yes no symptom reported Psychiatric/Neurological: Yes: no symptom reported Endocrine: Yes: no symptom reported Physical Exam General Appearance: no apparent distress Skin: warm Respiratory: decreased breath sounds Heart: S1S2 Abdomen: soft, bowel sounds present Genitourinary: bladder flat Extremities: pulses present Neurology: alert Assessment Assessment IMP PL EFFUSION ANEMIA NON COMPLIANCE DM II HTN ESRD PLAN S/P THORACENTESIS HD TOMORROW ENC COMPLIANCE CONT FABIAN LAM ATKINS MD Nov 09, 2018 12:40
[2018-11-09] MEDS ORDERED: VANCOMYCIN 2 GM in IV NORMAL SALINE 500ML BAG 500 ML IV ONE (13:00)
[2018-11-09] MEDS ORDERED: fentaNYL PF VIAL 100 MCG/2 ML VIAL ONE (13:54)
[2018-11-09] MEDS ORDERED: fentaNYL PF VIAL 100 MCG/2 ML VIAL IV ONE (14:15)
--- NOTE | 2018-11-09 15:02 | RAD ---
Ultrasound-guided right-sided right thoracostomy tube placement 11/09/2018 2:57 PM Indication: RECURRENT RIGHT PLEURAL EFFUSION Procedure: Informed consent was obtained. A timeout procedure was performed. Sonographic evaluation of the right chest was performed demonstrating moderate pleural effusion. The right posterior chest was prepped and draped in sterile fashion. 1% lidocaine without epinephrine was administered for local anesthesia. Real-time ultrasonographic guidance was used in passing a 5 [place] [employer] catheter into the right pleural space. This was exchanged over a guidewire for a 10 [place] pigtail drain. 2.1 L of serosanguineous pleural fluid was removed. Samples of fluid were sent to the lab for further evaluation per ordering physician request. The catheter was removed and pressure held to achieve hemostasis. A sterile dressing was applied. No immediate complications were identified. The patient tolerated the procedure well. Impression: Right-sided thoracostomy tube placement. 2.1 L serosanguineous fluid removed.
[2018-11-09] MEDS: HYDROcodone/APAP 5/325MG 1 TAB TABLET PO PRN ×2 (15:04→19:20)
[2018-11-09] MEDS: VANCOMYCIN PER PHARMACY MC PRN (16:22)
[2018-11-09 16:59] LABS: BF CLARITY TURBID; BF COLOR RED; BF PMN % 76 %; BF RBC COUNT 20096 /cmm (Not Established); BF SOURCE PLEURAL; BF WBC COUNT 708 /cmm (Not Established)
[2018-11-09 17:00] LABS: BF MON % 21 %; BF OTHER % 3 %; PH,BODY FLUID 7.46
[2018-11-09] MEDS: LACTOBACILLUS RHAMNOSUS GG 1 CAPSULE. PO SCH (21:51)
[2018-11-09] MEDS: INSULIN GLARGINE 300 UNITS/3 ML INSULN.PEN. SQ SCH (22:00)
[2018-11-09] MEDS: INSULIN LISPRO 300 UNITS/3 ML INSULN.PEN. SQ PRN (22:47)
[2018-11-10 03:00] VITALS: BP 177/68
[2018-11-10 04:40] LABS: BASO # 0.1 x10^3/uL (0.0-0.2); BASO % 1 % (0-3); EOS # 0.6 x10^3/uL (0.0-0.7); EOS % 8 % (0-3); HEMATOCRIT 28.6 % (39.0-53.0); HEMOGLOBIN 9.2 g/dL (13.0-17.5); LYMPH # 1.1 x10^3/uL (1.0-4.8); LYMPH % 16 % (24-48); MEAN CORPUSCULAR HEMOGLOBIN 28 pg (25-35); MEAN CORPUSCULAR HGB CONC 32 g/dL (31-37); MEAN CORPUSCULAR VOLUME 88 fL (79-100); MONO # 0.6 x10^3/uL (0.0-1.1); MONO % 8 % (0-9); NEUT # 4.6 x10^3uL (1.8-7.7); NEUT % 66 % (31-73); PLATELET COUNT 240 x10^3/uL (140-400); RED BLOOD COUNT 3.25 x10^6/uL (4.30-5.70); RED CELL DISTRIBUTION WIDTH 17.1 % (11.5-14.5)
[2018-11-10 04:54] LABS: ALBUMIN 2.3 g/dL (3.4-5.0); ALBUMIN/GLOBULIN RATIO 0.6 (1.0-1.7); CALCIUM 8.3 mg/dL (8.5-10.1); CREATININE 6.1 mg/dL (0.7-1.3); GFR 9.6; POTASSIUM 4.7 mmol/L (3.5-5.1); TOTAL BILIRUBIN 0.4 mg/dL (0.2-1.0); TOTAL PROTEIN 6.3 g/dL (6.4-8.2)
[2018-11-10] MEDS: PIPERACILLIN/TAZOBACTAM 2.25 GM in IV NORMAL SALINE 50ML 50 ML IV SCH ×3 (05:55→21:23)
[2018-11-10] MEDS: PANTOPRAZOLE 40 MG TABLET.DR. PO SCH (05:56)
[2018-11-10] MEDS: LEVOTHYROXINE 175 MCG TABLET PO SCH (05:56)
[2018-11-10] MEDS: METOCLOPRAMIDE 5 MG TABLET. PO SCH ×2 (05:57→18:00)
[2018-11-10 07:00] VITALS: BP 143/93
[2018-11-10] MEDS: INSULIN LISPRO 300 UNITS/3 ML INSULN.PEN. SQ SCH ×4 (07:30→21:00)
[2018-11-10] MEDS: BUDESONIDE 0.5 MG/2 ML NEBU. NEB SCH ×2 (07:33→19:15)
[2018-11-10] MEDS: IPRATRPIUM/ALBUTEROL 0.5/2.5MG 3 ML NEBU. NEB SCH ×4 (07:34→19:14)
--- NOTE | 2018-11-10 07:51 | RAD ---
Portable chest, 11/09/2018: HISTORY: Right-sided chest tube placement Comparison is made to a study from 11/08/2018. There has been interval placement of a right pleural drain. There is a large residual right pleural effusion, although it has decreased in volume since the previous study. There is moderate underlying atelectasis/infiltrate in the right lower chest. A moderate size left pleural effusion is unchanged. There is no evidence of pneumothorax. No new abnormality is detected. IMPRESSION: 1. Interval decrease in volume of the large right pleural effusion status post right chest tube placement. 2. Moderate ongoing atelectasis/infiltrate in the right lower chest. 3. Unchanged small to moderate sized left pleural effusion. Electronically signed by: Wicho Blake MD (11/10/2018 7:48 AM) [facility], [place]
[2018-11-10] MEDS: CALCIUM ACETATE 667 MG CAPSULE PO SCH ×3 (08:00→17:59)
[2018-11-10] MEDS: ASPIRIN CHEWABLE 81 MG TABLET. PO SCH (08:00)
--- NOTE | 2018-11-10 08:27 | RAD ---
Portable chest, 11/10/2018: HISTORY: Follow-up effusion and pneumonia Comparison is made to yesterday's study at 4:30 PM. The right pleural drain remains in place in the lower chest. There is a moderate volume of residual right-sided pleural fluid, although improved since the previous study. There is moderate ongoing infiltrate in the right mid and lower chest. The moderate size left pleural effusion may have worsened slightly. There is mild underlying left basilar atelectasis/infiltrate. There is no evidence of pneumothorax. IMPRESSION: 1. Decrease in volume of the moderate sized right pleural effusion status post pleural drain placement. 2. Ongoing moderate infiltrate in the right mid and lower chest compatible with pneumonia. 3. Increasing moderate-sized left pleural effusion with mild underlying left basilar atelectasis/infiltrate. Electronically signed by: Wicho Blake MD (11/10/2018 8:24 AM) [facility]
--- NOTE | 2018-11-10 08:45 | PDOC ---
PULMONARY PROGRESS NOTES Subjective patient still SOA Vitals Vital Signs Date Time Temp Pulse Resp B/P (MAP) Pulse Ox O2 Delivery O2 Flow Rate FiO2 11/10/18 07:35 94 Nasal Cannula 3.0 11/10/18 07:00 97.7 64 18 143/93 (110) 97.7 ROS: No Nausea, No Chest Pain, No Abdominal Pain, No Increase Cough General: Alert, No acute distress HEENT: Other Lungs: Other (DECREASE BS IN BASE) Cardiovascular: S1, S2 Abdomen: Soft, Non-tender Neuro Exam: Alert Extremities: Other (EDEMA) Skin: Warm Labs Laboratory Tests Test 11/08/18 11:19 11/08/18 17:24 11/08/18 20:33 11/09/18 05:22 Glucose (Fingerstick) 286 mg/dL (70-99) 122 mg/dL (70-99) 233 mg/dL (70-99) 224 mg/dL (70-99) Test 11/09/18 07:19 11/09/18 11:29 11/09/18 12:25 11/09/18 14:15 Glucose (Fingerstick) 192 mg/dL (70-99) 242 mg/dL (70-99) Lactic Acid Level 0.7 mmol/L (0.4-2.0) Body Fluid Source Pleural Body Fluid Color Red Body Fluid Clarity Turbid Body Fluid pH 7.46 Body Fluid Nucleated Cells 708 /cmm (Not Established) Body Fluid Mononuclear WBCs (%) 21 % Body Fluid Polymorphonuclear Cells 76 % Body Fluid Total RBCs Counted 26574 /cmm (Not Body Fluid Other Cells (%) 3 % Test 11/09/18 16:19 11/09/18 21:47 11/10/18 01:59 11/10/18 03:40 Glucose (Fingerstick) 225 mg/dL (70-99) 467 mg/dL (70-99) 231 mg/dL (70-99) White Blood Count 7.0 x10^3/uL (4.0-11.0) Red Blood Count 3.25 x10^6/uL (4.30-5.70) Hemoglobin 9.2 g/dL (13.0-17.5) Hematocrit 28.6 % (39.0-53.0) Mean Corpuscular Volume 88 fL (79-100) Mean Corpuscular Hemoglobin 28 pg (25-35) Mean Corpuscular Hemoglobin Concent 32 g/dL (31-37) Red Cell Distribution Width 17.1 % (11.5-14.5) Platelet Count 240 x10^3/uL (140-400) Neutrophils (%) (Auto) 66 % (31-73) Lymphocytes (%) (Auto) 16 % (24-48) Monocytes (%) (Auto) 8 % (0-9) Eosinophils (%) (Auto) 8 % (0-3) Basophils (%) (Auto) 1 % (0-3) Neutrophils # (Auto) 4.6 x10^3uL (1.8-7.7) Lymphocytes # (Auto) 1.1 x10^3/uL (1.0-4.8) Monocytes # (Auto) 0.6 x10^3/uL (0.0-1.1) Eosinophils # (Auto) 0.6 x10^3/uL (0.0-0.7) Basophils # (Auto) 0.1 x10^3/uL (0.0-0.2) Sodium Level 137 mmol/L (136-145) Potassium Level 4.7 mmol/L (3.5-5.1) Chloride Level 98 mmol/L (98-107) Carbon Dioxide Level 28 mmol/L (21-32) Anion Gap 11 (6-14) Blood Urea Nitrogen 40 mg/dL (8-26) Creatinine 6.1 mg/dL (0.7-1.3) Estimated GFR (Cockcroft-Gault) 9.6 BUN/Creatinine Ratio 7 (6-20) Glucose Level 197 mg/dL (70-99) Calcium Level 8.3 mg/dL (8.5-10.1) Total Bilirubin 0.4 mg/dL (0.2-1.0) Aspartate Amino Transf (AST/SGOT) 10 U/L (15-37) Alanine Aminotransferase (ALT/SGPT) 9 U/L (16-63) Alkaline Phosphatase 111 U/L (46-116) Total Protein 6.3 g/dL (6.4-8.2) Albumin 2.3 g/dL (3.4-5.0) Albumin/Globulin Ratio 0.6 (1.0-1.7) Test 11/10/18 07:20 Glucose (Fingerstick) 151 mg/dL (70-99) Laboratory Tests Test 11/09/18 11:29 11/09/18 12:25 11/09/18 14:15 11/09/18 16:19 Glucose (Fingerstick) 242 mg/dL (70-99) 225 mg/dL (70-99) Lactic Acid Level 0.7 mmol/L (0.4-2.0) Body Fluid Source Pleural Body Fluid Color Red Body Fluid Clarity Turbid Body Fluid pH 7.46 Body Fluid Nucleated Cells 708 /cmm (Not Established) Body Fluid Mononuclear WBCs (%) 21 % Body Fluid Polymorphonuclear Cells 76 % Body Fluid Total RBCs Counted 20909 /cmm (Not Body Fluid Other Cells (%) 3 % Test 11/09/18 21:47 11/10/18 01:59 11/10/18 03:40 11/10/18 07:20 Glucose (Fingerstick) 467 mg/dL (70-99) 231 mg/dL (70-99) 151 mg/dL (70-99) White Blood Count 7.0 x10^3/uL (4.0-11.0) Red Blood Count 3.25 x10^6/uL (4.30-5.70) Hemoglobin 9.2 g/dL (13.0-17.5) Hematocrit 28.6 % (39.0-53.0) Mean Corpuscular Volume 88 fL (79-100) Mean Corpuscular Hemoglobin 28 pg (25-35) Mean Corpuscular Hemoglobin Concent 32 g/dL (31-37) Red Cell Distribution Width 17.1 % (11.5-14.5) Platelet Count 240 x10^3/uL (140-400) Neutrophils (%) (Auto) 66 % (31-73) Lymphocytes (%) (Auto) 16 % (24-48) Monocytes (%) (Auto) 8 % (0-9) Eosinophils (%) (Auto) 8 % (0-3) Basophils (%) (Auto) 1 % (0-3) Neutrophils # (Auto) 4.6 x10^3uL (1.8-7.7) Lymphocytes # (Auto) 1.1 x10^3/uL (1.0-4.8) Monocytes # (Auto) 0.6 x10^3/uL (0.0-1.1) Eosinophils # (Auto) 0.6 x10^3/uL (0.0-0.7) Basophils # (Auto) 0.1 x10^3/uL (0.0-0.2) Sodium Level 137 mmol/L (136-145) Potassium Level 4.7 mmol/L (3.5-5.1) Chloride Level 98 mmol/L (98-107) Carbon Dioxide Level 28 mmol/L (21-32) Anion Gap 11 (6-14) Blood Urea Nitrogen 40 mg/dL (8-26) Creatinine 6.1 mg/dL (0.7-1.3) Estimated GFR (Cockcroft-Gault) 9.6 BUN/Creatinine Ratio 7 (6-20) Glucose Level 197 mg/dL (70-99) Calcium Level 8.3 mg/dL (8.5-10.1) Total Bilirubin 0.4 mg/dL (0.2-1.0) Aspartate Amino Transf (AST/SGOT) 10 U/L (15-37) Alanine Aminotransferase (ALT/SGPT) 9 U/L (16-63) Alkaline Phosphatase 111 U/L (46-116) Total Protein 6.3 g/dL (6.4-8.2) Albumin 2.3 g/dL (3.4-5.0) Albumin/Globulin Ratio 0.6 (1.0-1.7) Medications Active Scripts Medications Dose Route/Sig Max Daily Dose Days Date Category [place] 3 Fish Oil Softgel (Sciota-3 Fatty Acids/Fish Oil) 1 Each Capsule.dr 1 Each PO DAILY 11/07/18 Reported Toprol Xl (Metoprolol Succinate) 25 Mg Tab.er.24h 0.5 Tab PO DAILY 11/07/18 Reported Lasix (Furosemide) 80 Mg Tablet 80 Mg PO DAILY 11/07/18 Reported Calcium Acetate 667 Mg Tablet 667 Mg PO TIDWMEALS 11/07/18 Reported Hydralazine Hcl 10 Mg Tablet 10 Mg PO TID MDD 1 10/04/18 Rx Amlodipine Besylate 10 Mg Tablet 10 Mg PO DAILY MDD 1 10/04/18 Rx Lisinopril 40 Mg Tablet 20 Mg PO DAILY MDD 1 10/04/18 Rx Tylenol (Acetaminophen) 325 Mg Tablet 650 Mg PO PRN Q6HRS 10/02/18 Reported Humalog (Insulin Lispro) 100 Unit/1 Ml Cartridge 6 Unit SQ TIDBFRMEAL 10/02/18 Reported Ferrous Sulfate 325 Mg Tablet 1 Tab PO DAILY 09/15/18 Reported Levothyroxine Sodium 175 Mcg Tablet 1 Tab PO DAILY 09/15/18 Reported Reglan (Metoclopramide Hcl) 10 Mg Tablet 5 Mg PO BIDAC 09/15/18 Reported [Pantoprazole] 40 MG Tablet.dr 40 Mg PO DAILYAC 30 09/09/18 Rx Trazodone Hcl 100 Mg Tablet 100 Mg PO PRN QHS PRN 30 09/09/18 Rx Lantus Solostar (Insulin Glargine,Hum.rec.anlog) 100 Unit/1 Ml Insuln.pen 15 Units SQ QHS 30 09/09/18 Rx Budesonide 0.5 Mg/2 Ml Ampul.neb 0.5 Mg NEB RTBID 30 08/29/18 Rx Aspirin 81 Mg Tab.chew 81 Mg PO DAILYWBKFT 30 08/29/18 Rx Carvedilol (Carvedilol) 3.125 Mg Tablet 3.125 Mg PO BIDWMEALS 30 08/29/18 Rx Duoneb 0.5-3(2.5) Mg/3 Ml (Albuterol/Ipratropium) 3 Ml Ampul.neb 3 Ml NEB RTQID 30 08/29/18 Rx Brilinta (Ticagrelor) 90 Mg Tablet 90 Mg PO BID 30 08/29/18 Rx Vitamin D2 (Ergocalciferol (Vitamin D2)) 50,000 Unit Capsule 50,000 Unit PO WEEKLY 04/02/18 Rx Dialyvite Tablet (Folic Acid/Vitamin B Comp W-C) 1 Each Tablet 1 Each PO 03/28/18 Reported Impression . IMPRESSION: 1. Acute on chronic hypoxemic respiratory failure. 2. Bilateral pleural effusions, left greater than right. 3. End-stage renal disease, noncompliant with hemodialysis. 4. Hypertension. 5. Chronic obstructive pulmonary disease. 6. Tobacco dependent. 7. Coronary artery disease with previous stent placement. 11/09 Impression: Right-sided thoracostomy tube placement. 2.1 L serosanguineous fluid removed. Plan . CONTINUE CHEST TUBE FOLLOW UP ON ANALYSIS CYTOLOGY IS PENDING SPOKE WITH AND PT YOSI ZHANG MD Nov 10, 2018 08:45
[2018-11-10] MEDS: OMEGA-3 FATTY ACIDS/FISH OIL 1,000 MG CAPSULE. PO SCH (09:00)
[2018-11-10] MEDS: METOPROLOL SUCC 24HR ER 25 MG TAB.ER.24H. PO SCH (09:00)
[2018-11-10] MEDS: FUROSEMIDE 80 MG TABLET. PO SCH (09:00)
[2018-11-10] MEDS: amLODIPine BESYLATE 10 MG TABLET PO SCH (09:00)
[2018-11-10] MEDS: LACTOBACILLUS RHAMNOSUS GG 1 CAPSULE. PO SCH ×2 (09:00→21:22)
[2018-11-10] MEDS: hydrALAZINE 10 MG TABLET PO SCH ×3 (09:00→21:22)
[2018-11-10] MEDS: FERROUS SULFATE 325 MG TABLET. PO SCH (09:00)
[2018-11-10] MEDS: LISINOPRIL 20 MG TABLET PO SCH (09:00)
[2018-11-10] MEDS: TICAGRELOR 90 MG TABLET. PO SCH ×2 (09:00→21:22)
[2018-11-10 11:00] VITALS: BP 119/56
--- NOTE | 2018-11-10 11:23 | PDOC ---
PROGRESS NOTES History of Present Illness History of Present Illness Assessment/Plan Assessment/Plan IMPRESSION: on ct today 1. Large right pleural effusion, [id number] left pleural effusion. 2. Bilateral gynecomastia 3. Small right axillary and mediastinal lymph nodes 4. Development of swelling and fatty stranding within the right axilla and adjacent chest, suspicious for edema or inflammation. 5. Extensive consolidation/collapse of the right lung with a small remaining area of aerated right upper lobe. possible mucous plugging 6. Development of an area of patchy sclerosis and lucency at the sternum with an anterior cortical defect. Possibilities include nonacute fracture or osteomyelitis, depending on clinical findings. Bone scan could be of benefit ESRD Tuesday on dialysis Anemia of ESRD Hypertension, controlled Diabetes-controlled History of cardiac stents-chronic stable PLAN: D/W DR Guzman by phone this AM, concern for mucous plugging id consult IR for thoracentesis 11/08 pulmonary following sliding scale insulin home meds discussed my plan of care in room ct reviewed Counseling against smoking Nicotine patch prn nephrology for dialysis iv zosyn and vanc per pharmacy blood cult x 1 mrsa nasal screen Vitals Vitals Vital Signs Date Time Temp Pulse Resp B/P (MAP) Pulse Ox O2 Delivery O2 Flow Rate FiO2 11/10/18 11:00 98.2 64 17 119/56 (77) 98 Nasal Cannula 98.2 11/10/18 07:35 3.0 Physical Exam General: Alert, Oriented X3, Cooperative, mild distress Heart: Regular rate, Normal S1, Normal S2 Lungs: Other (DECREASE BS IN BASE) Abdomen: Normal bowel sounds, Soft, No tenderness Extremities: No clubbing, No cyanosis Skin: No breakdown Labs LABS Laboratory Tests Test 11/09/18 11:29 11/09/18 12:25 11/09/18 14:15 11/09/18 16:19 Glucose (Fingerstick) 242 mg/dL (70-99) 225 mg/dL (70-99) Lactic Acid Level 0.7 mmol/L (0.4-2.0) Body Fluid Source Pleural Body Fluid Color Red Body Fluid Clarity Turbid Body Fluid pH 7.46 Body Fluid Nucleated Cells 708 /cmm (Not Established) Body Fluid Mononuclear WBCs (%) 21 % Body Fluid Polymorphonuclear Cells 76 % Body Fluid Total RBCs Counted 99800 /cmm (Not Body Fluid Other Cells (%) 3 % Test 2/14/19 21:47 11/10/18 01:59 11/10/18 03:40 11/10/18 07:20 Glucose (Fingerstick) 467 mg/dL (70-99) 231 mg/dL (70-99) 151 mg/dL (70-99) White Blood Count 7.0 x10^3/uL (4.0-11.0) Red Blood Count 3.25 x10^6/uL (4.30-5.70) Hemoglobin 9.2 g/dL (13.0-17.5) Hematocrit 28.6 % (39.0-53.0) Mean Corpuscular Volume 88 fL (79-100) Mean Corpuscular Hemoglobin 28 pg (25-35) Mean Corpuscular Hemoglobin Concent 32 g/dL (31-37) Red Cell Distribution Width 17.1 % (11.5-14.5) Platelet Count 240 x10^3/uL (140-400) Neutrophils (%) (Auto) 66 % (31-73) Lymphocytes (%) (Auto) 16 % (24-48) Monocytes (%) (Auto) 8 % (0-9) Eosinophils (%) (Auto) 8 % (0-3) Basophils (%) (Auto) 1 % (0-3) Neutrophils # (Auto) 4.6 x10^3uL (1.8-7.7) Lymphocytes # (Auto) 1.1 x10^3/uL (1.0-4.8) Monocytes # (Auto) 0.6 x10^3/uL (0.0-1.1) Eosinophils # (Auto) 0.6 x10^3/uL (0.0-0.7) Basophils # (Auto) 0.1 x10^3/uL (0.0-0.2) Sodium Level 137 mmol/L (136-145) Potassium Level 4.7 mmol/L (3.5-5.1) Chloride Level 98 mmol/L (98-107) Carbon Dioxide Level 28 mmol/L (21-32) Anion Gap 11 (6-14) Blood Urea Nitrogen 40 mg/dL (8-26) Creatinine 6.1 mg/dL (0.7-1.3) Estimated GFR (Cockcroft-Gault) 9.6 BUN/Creatinine Ratio 7 (6-20) Glucose Level 197 mg/dL (70-99) Calcium Level 8.3 mg/dL (8.5-10.1) Total Bilirubin 0.4 mg/dL (0.2-1.0) Aspartate Amino Transf (AST/SGOT) 10 U/L (15-37) Alanine Aminotransferase (ALT/SGPT) 9 U/L (16-63) Alkaline Phosphatase 111 U/L (46-116) Total Protein 6.3 g/dL (6.4-8.2) Albumin 2.3 g/dL (3.4-5.0) Albumin/Globulin Ratio 0.6 (1.0-1.7) Comment Review of Relevant I have reviewed the following items yesenia (where applicable) has been applied. Labs Laboratory Tests Test 11/08/18 17:24 11/08/18 20:33 11/09/18 05:22 11/09/18 07:19 Glucose (Fingerstick) 122 mg/dL (70-99) 233 mg/dL (70-99) 224 mg/dL (70-99) 192 mg/dL (70-99) Test 11/09/18 11:29 11/09/18 12:25 11/09/18 14:15 11/09/18 16:19 Glucose (Fingerstick) 242 mg/dL (70-99) 225 mg/dL (70-99) Lactic Acid Level 0.7 mmol/L (0.4-2.0) Body Fluid Source Pleural Body Fluid Color Red Body Fluid Clarity Turbid Body Fluid pH 7.46 Body Fluid Nucleated Cells 708 /cmm (Not Established) Body Fluid Mononuclear WBCs (%) 21 % Body Fluid Polymorphonuclear Cells 76 % Body Fluid Total RBCs Counted 25454 /cmm (Not Body Fluid Other Cells (%) 3 % Test 11/09/18 21:47 11/10/18 01:59 11/10/18 03:40 11/10/18 07:20 Glucose (Fingerstick) 467 mg/dL (70-99) 231 mg/dL (70-99) 151 mg/dL (70-99) White Blood Count 7.0 x10^3/uL (4.0-11.0) Red Blood Count 3.25 x10^6/uL (4.30-5.70) Hemoglobin 9.2 g/dL (13.0-17.5) Hematocrit 28.6 % (39.0-53.0) Mean Corpuscular Volume 88 fL (79-100) Mean Corpuscular Hemoglobin 28 pg (25-35) Mean Corpuscular Hemoglobin Concent 32 g/dL (31-37) Red Cell Distribution Width 17.1 % (11.5-14.5) Platelet Count 240 x10^3/uL (140-400) Neutrophils (%) (Auto) 66 % (31-73) Lymphocytes (%) (Auto) 16 % (24-48) Monocytes (%) (Auto) 8 % (0-9) Eosinophils (%) (Auto) 8 % (0-3) Basophils (%) (Auto) 1 % (0-3) Neutrophils # (Auto) 4.6 x10^3uL (1.8-7.7) Lymphocytes # (Auto) 1.1 x10^3/uL (1.0-4.8) Monocytes # (Auto) 0.6 x10^3/uL (0.0-1.1) Eosinophils # (Auto) 0.6 x10^3/uL (0.0-0.7) Basophils # (Auto) 0.1 x10^3/uL (0.0-0.2) Sodium Level 137 mmol/L (136-145) Potassium Level 4.7 mmol/L (3.5-5.1) Chloride Level 98 mmol/L (98-107) Carbon Dioxide Level 28 mmol/L (21-32) Anion Gap 11 (6-14) Blood Urea Nitrogen 40 mg/dL (8-26) Creatinine 6.1 mg/dL (0.7-1.3) Estimated GFR (Cockcroft-Gault) 9.6 BUN/Creatinine Ratio 7 (6-20) Glucose Level 197 mg/dL (70-99) Calcium Level 8.3 mg/dL (8.5-10.1) Total Bilirubin 0.4 mg/dL (0.2-1.0) Aspartate Amino Transf (AST/SGOT) 10 U/L (15-37) Alanine Aminotransferase (ALT/SGPT) 9 U/L (16-63) Alkaline Phosphatase 111 U/L (46-116) Total Protein 6.3 g/dL (6.4-8.2) Albumin 2.3 g/dL (3.4-5.0) Albumin/Globulin Ratio 0.6 (1.0-1.7) Laboratory Tests Test 11/09/18 11:29 11/09/18 12:25 11/09/18 14:15 11/09/18 16:19 Glucose (Fingerstick) 242 mg/dL (70-99) 225 mg/dL (70-99) Lactic Acid Level 0.7 mmol/L (0.4-2.0) Body Fluid Source Pleural Body Fluid Color Red Body Fluid Clarity Turbid Body Fluid pH 7.46 Body Fluid Nucleated Cells 708 /cmm (Not Established) Body Fluid Mononuclear WBCs (%) 21 % Body Fluid Polymorphonuclear Cells 76 % Body Fluid Total RBCs Counted 19050 /cmm (Not Body Fluid Other Cells (%) 3 % Test 11/09/18 21:47 11/10/18 01:59 11/10/18 03:40 11/10/18 07:20 Glucose (Fingerstick) 467 mg/dL (70-99) 231 mg/dL (70-99) 151 mg/dL (70-99) White Blood Count 7.0 x10^3/uL (4.0-11.0) Red Blood Count 3.25 x10^6/uL (4.30-5.70) Hemoglobin 9.2 g/dL (13.0-17.5) Hematocrit 28.6 % (39.0-53.0) Mean Corpuscular Volume 88 fL (79-100) Mean Corpuscular Hemoglobin 28 pg (25-35) Mean Corpuscular Hemoglobin Concent 32 g/dL (31-37) Red Cell Distribution Width 17.1 % (11.5-14.5) Platelet Count 240 x10^3/uL (140-400) Neutrophils (%) (Auto) 66 % (31-73) Lymphocytes (%) (Auto) 16 % (24-48) Monocytes (%) (Auto) 8 % (0-9) Eosinophils (%) (Auto) 8 % (0-3) Basophils (%) (Auto) 1 % (0-3) Neutrophils # (Auto) 4.6 x10^3uL (1.8-7.7) Lymphocytes # (Auto) 1.1 x10^3/uL (1.0-4.8) Monocytes # (Auto) 0.6 x10^3/uL (0.0-1.1) Eosinophils # (Auto) 0.6 x10^3/uL (0.0-0.7) Basophils # (Auto) 0.1 x10^3/uL (0.0-0.2) Sodium Level 137 mmol/L (136-145) Potassium Level 4.7 mmol/L (3.5-5.1) Chloride Level 98 mmol/L (98-107) Carbon Dioxide Level 28 mmol/L (21-32) Anion Gap 11 (6-14) Blood Urea Nitrogen 40 mg/dL (8-26) Creatinine 6.1 mg/dL (0.7-1.3) Estimated GFR (Cockcroft-Gault) 9.6 BUN/Creatinine Ratio 7 (6-20) Glucose Level 197 mg/dL (70-99) Calcium Level 8.3 mg/dL (8.5-10.1) Total Bilirubin 0.4 mg/dL (0.2-1.0) Aspartate Amino Transf (AST/SGOT) 10 U/L (15-37) Alanine Aminotransferase (ALT/SGPT) 9 U/L (16-63) Alkaline Phosphatase 111 U/L (46-116) Total Protein 6.3 g/dL (6.4-8.2) Albumin 2.3 g/dL (3.4-5.0) Albumin/Globulin Ratio 0.6 (1.0-1.7) Medications Current Medications Dextrose (Dextrose 50%-Water Syringe) 12.5 gm PRN Q15MIN PRN IV SEE COMMENTS; Start 11/07/18 at 03:30; Stop 11/07/18 at 07:42; Status DC Albuterol/ Ipratropium (Duoneb) 3 ml RTQID NEB Last administered on 11/10/18at 07:34; Start 11/07/18 at 08:00 Albuterol/ Ipratropium (Duoneb) 3 ml 1X ONCE NEB Last administered on at 05:50; Start 11/07/18 at 05:45; Stop 11/07/18 at 05:46; Status DC Albuterol Sulfate (Ventolin Neb Soln) 2.5 mg PRN Q4HRS PRN NEB SHORTNESS OF BREATH; Start 11/07/18 at 05:45 Furosemide (Lasix) 40 mg 1X ONCE IVP Last administered on 11/07/18at 05:49; Start 11/07/18 at 05:45; Stop 11/07/18 at 05:46; Status DC Insulin Human Lispro (HumaLOG) 20 units 1X ONCE SQ Last administered on at 07:58; Start 11/07/18 at 07:45; Stop 11/07/18 at 07:46; Status DC Insulin Human Lispro (HumaLOG) 0-7 UNITS TIDWMEALS SQ ; Start 11/07/18 at 12:00 ; Stop 11/07/18 at 12:00; Status DC Dextrose (Dextrose 50%-Water Syringe) 12.5 gm PRN Q15MIN PRN IV SEE COMMENTS; Start 11/07/18 at 07:45; Stop 11/07/18 at 09:06; Status DC Insulin Human Lispro (HumaLOG) 0-9 UNITS TIDWMEALS SQ Last administered on 11/09at 17:23; Start 11/07/18 at 09:30; Stop 11/09/18 at 22:40; Status DC Dextrose (Dextrose 50%-Water Syringe) 12.5 gm PRN Q15MIN PRN IV SEE COMMENTS; Start 11/07/18 at 09:15 Labetalol HCl (Normodyne Iv Push) 20 mg PRN Q2HR PRN IVP HYPERTENSION, SEE COMMENTS; Start 11/07/18 at 09:15 Acetaminophen (Tylenol) 650 mg PRN Q6HRS PRN PO MILD PAIN / TEMP; Start at 09:15 Amlodipine Besylate (Norvasc) 10 mg DAILY PO Last administered on 11/09/18at 11: 11; Start 11/07/18 at 10:00 Aspirin (Children'S Aspirin) 81 mg DAILYWBKFT PO Last administered on at 11:06; Start 11/07/18 at 10:00 Budesonide (Pulmicort) 0.5 mg RTBID NEB Last administered on 11/10/18at 07:33; Start 11/07/18 at 10:00 Carvedilol (Coreg) 3.125 mg BIDWMEALS PO ; Start 11/07/18 at 10:00; Status Cancel Ergocalciferol (Vitamin D2) 50,000 unit WEEKLY PO ; Start 11/14/18 at 09:00 Ferrous Sulfate (Feosol) 325 mg DAILY PO Last administered on 11/09/18 11:08; Start 11/07/18 at 10:00 Furosemide (Lasix) 80 mg DAILY PO Last administered on 11/09/18 11:08; Start 11/07/18 at 10:00 Insulin Glargine (Lantus) 15 units QHS SQ Last administered on 11/09/18 22:00 ; Start 11/07/18 at 21:00 Levothyroxine Sodium (Synthroid) 175 mcg DAILY06 PO Last administered on 05:56; Start 11/07/18 at 10:00 Lisinopril (Prinivil) 20 mg DAILY PO Last administered on 11/09/18 11:11; Start 11/07/18 at 10:00 Metoclopramide HCl (Reglan) 5 mg BIDAC PO Last administered on 11/10/18 05:57 ; Start 11/07/18 at 10:00 Metoprolol Succinate (Toprol Xl) 12.5 mg DAILY PO Last administered on 11:10; Start 11/07/18 at 10:00 Ticagrelor (Brilinta) 90 mg BID PO Last administered on 11/09/18 21:51; Start 11/07/18 at 10:00 Trazodone HCl (Desyrel) 100 mg PRN QHS PRN PO INSOMNIA Last administered on 22:10; Start 11/07/18 at 09:15 Calcium Acetate (Phoslo) 667 mg TIDWMEALS PO Last administered on 11/09/18 17: 21; Start 11/07/18 at 12:00 Hydralazine HCl (Apresoline) 10 mg TID PO Last administered on 11/09/18 21:52 ; Start 11/07/18 at 14:00 Insulin Human Lispro (HumaLOG) 6 units TIDWMEALS SQ Last administered on 11:45; Start 11/07/18 at 09:30; Stop 11/07/18 at 16:01; Status DC Fish Oil (Fish Oil) 1,000 mg DAILY PO Last administered on 11/09/18at 11:08; Start 11/07/18 at 10:00 Pantoprazole Sodium (Protonix) 40 mg DAILYAC PO Last administered on 11/10/18at 05:56; Start 11/07/18 at 10:00 Acetaminophen/ Hydrocodone Bitart (Lortab 5/325) 1 tab PRN Q4HRS PRN PO MODERATE - SEVERE PAIN Last administered on 11/09/18at 19:20; Start 11/07/18 at 09:15 Nicotine (Nicoderm Cq 21mg) 1 patch PRN DAILY PRN TD SMOKING CESSATION; Start 11/07/18 at 11:15 Dextrose (Dextrose 50%-Water Syringe) 25 gm STK-MED ONCE IV ; Start 11/07/18 at 15:09; Stop 11/07/18 at 15:10; Status DC Sodium Chloride 1,000 ml @ 1,000 mls/hr Q1H PRN IV hypotension; Start 11/07/18 at 16:10; Stop 11/07/18 at 22:09; Status DC Info (PHARMACY MONITORING -- do not chart) 1 each PRN DAILY PRN MC SEE COMMENTS ; Start 11/07/18 at 16:15; Status UNV Info (PHARMACY MONITORING -- do not chart) 1 each PRN DAILY PRN MC SEE COMMENTS ; Start 11/07/18 at 16:15; Stop 11/09/18 at 12:04; Status DC Sodium Chloride 1,000 ml @ 1,000 mls/hr Q1H PRN IV hypotension; Start 11/08/18 at 14:23; Stop 11/08/18 at 20:22; Status DC Sodium Chloride 1,000 ml @ 400 mls/hr Q2H30M PRN IV PATENCY; Start 11/08/18 at 14:23; Stop 11/09/18 at 02:22; Status DC Info (PHARMACY MONITORING -- do not chart) 1 each PRN DAILY PRN MC SEE COMMENTS ; Start 11/08/18 at 14:30 Iohexol (Omnipaque 300 Mg/ml) 75 ml 1X ONCE IV Last administered on 11/09/18at 07:40; Start 11/09/18 at 07:00; Stop 11/09/18 at 07:01; Status DC Piperacillin Sod/ Tazobactam Sod (Zosyn Per Pharmacy) 1 each PRN DAILY PRN MC SEE COMMENTS; Start 11/09/18 at 12:00 Vancomycin HCl (Vanco Per Pharmacy) 1 each PRN DAILY PRN MC SEE COMMENTS Last administered on 11/09/18at 16:22; Start 11/09/18 at 12:00 Piperacillin Sod/ Tazobactam Sod 2.25 gm/Sodium Chloride 50 ml @ 100 mls/hr Q8HRS IV Last administered on 11/10/18at 05:55; Start 11/09/18 at 13:00 Vancomycin HCl 2 gm/Sodium Chloride 500 ml @ 250 mls/hr 1X ONCE IV Last administered on 11/09/18at 13:00; Start 11/09/18 at 13:00; Stop 11/09/18 at 14:59 ; Status DC Fentanyl Citrate (Fentanyl 2ml Vial) 100 mcg STK-MED ONCE .ROUTE ; Start at 13:54; Stop 11/09/18 at 13:55; Status DC Fentanyl Citrate (Fentanyl 2ml Vial) 100 mcg 1X ONCE IV Last administered on at 14:15; Start 11/09/18 at 14:15; Stop 11/09/18 at 14:16; Status DC Hydralazine HCl (Apresoline) 10 mg STK-MED ONCE .ROUTE ; Start 11/07/18 at 09:00 ; Stop 11/09/18 at 15:36; Status DC Hydralazine HCl (Apresoline) 10 mg STK-MED ONCE .ROUTE ; Start 11/07/18 at 09:00 ; Stop 11/09/18 at 15:36; Status DC Hydralazine HCl (Apresoline) 10 mg STK-MED ONCE .ROUTE ; Start 11/08/18 at 09:00 ; Stop 11/09/18 at 15:37; Status DC Hydralazine HCl (Apresoline) 10 mg STK-MED ONCE .ROUTE ; Start 11/09/18 at 09:00 ; Stop 11/09/18 at 15:37; Status DC Hydralazine HCl (Apresoline) 10 mg STK-MED ONCE .ROUTE ; Start 11/09/18 at 09:00 ; Stop 11/09/18 at 15:37; Status DC Lactobacillus Rhamnosus (Culturelle) 1 cap BID PO Last administered on at 21:51; Start 11/09/18 at 21:00 Vancomycin HCl (Vancomycin Random Level) 1 each 1X ONCE MC ; Start 11/11/18 at 06:00; Stop 11/11/18 at 06:01 Insulin Human Lispro (HumaLOG) 0-9 UNITS QIDACHS SQ ; Start 11/09/18 at 23:00 Insulin Human Lispro (HumaLOG) 20 units PRN QHS PRN SQ SEE COMMENTS Last administered on 11/09/18at 22:47; Start 11/09/18 at 22:30 Active Scripts Active Hydralazine Hcl 10 Mg Tablet 10 Mg PO TID MDD 1 Amlodipine Besylate 10 Mg Tablet 10 Mg PO DAILY MDD 1 Lisinopril 40 Mg Tablet 20 Mg PO DAILY MDD 1 [Pantoprazole] 40 MG Tablet.dr 40 Mg PO DAILYAC 30 Days Trazodone Hcl 100 Mg Tablet 100 Mg PO PRN QHS PRN 30 Days Lantus Solostar (Insulin Glargine,Hum.rec.anlog) 100 Unit/1 Ml Insuln.pen 15 Units SQ QHS 30 Days Budesonide 0.5 Mg/2 Ml Ampul.neb 0.5 Mg NEB RTBID 30 Days Aspirin 81 Mg Tab.chew 81 Mg PO DAILYWBKFT 30 Days Carvedilol (Carvedilol) 3.125 Mg Tablet 3.125 Mg PO BIDWMEALS 30 Days Duoneb 0.5-3(2.5) Mg/3 Ml (Albuterol/Ipratropium) 3 Ml Ampul.neb 3 Ml NEB RTQID 30 Days Brilinta (Ticagrelor) 90 Mg Tablet 90 Mg PO BID 30 Days Vitamin D2 (Ergocalciferol (Vitamin D2)) 50,000 Unit Capsule 50,000 Unit PO WEEKLY Reported [place] 3 Fish Oil Softgel ([place]-3 Fatty Acids/Fish Oil) 1 Each Capsule.dr 1 Each PO DAILY Toprol Xl (Metoprolol Succinate) 25 Mg Tab.er.24h 0.5 Tab PO DAILY Lasix (Furosemide) 80 Mg Tablet 80 Mg PO DAILY Calcium Acetate 667 Mg Tablet 667 Mg PO TIDWMEALS Tylenol (Acetaminophen) 325 Mg Tablet 650 Mg PO PRN Q6HRS Humalog (Insulin Lispro) 100 Unit/1 Ml Cartridge 6 Unit SQ TIDBFRMEAL Ferrous Sulfate 325 Mg Tablet 1 Tab PO DAILY Levothyroxine Sodium 175 Mcg Tablet 1 Tab PO DAILY Reglan (Metoclopramide Hcl) 10 Mg Tablet 5 Mg PO BIDAC Dialyvite Tablet (Folic Acid/Vitamin B Comp W-C) 1 Each Tablet 1 Each PO Vitals/I & O Vital Sign - Last 24 Hours 11/09/18 11/09/18 11/09/18 11/09/18 11:40 14:15 14:17 14:23 Pulse 68 67 Resp 20 20 18 B/P (MAP) 115/56 (75) 109/53 (71) Pulse Ox 94 94 95 O2 Delivery Nasal Cannula Nasal Cannula Nasal Cannula O2 Flow Rate 3.0 3.0 3.0 11/09/18 11/09/18 11/09/18 11/09/18 14:32 15:04 15:08 15:40 Pulse 67 68 Resp 17 3 B/P (MAP) 108/53 (71) 127/61 Pulse Ox 95 97 O2 Delivery Nasal Cannula Nasal Cannula Nasal Cannula O2 Flow Rate 3.0 3.0 11/09/18 11/09/18 11/09/18 11/09/18 19:00 19:20 20:00 20:03 Temp 98.9 98.9 Pulse 18 Resp 18 20 B/P (MAP) 136/69 (91) Pulse Ox 98 97 98 O2 Delivery Nasal Cannula Nasal Cannula Nasal Cannula Nasal Cannula O2 Flow Rate 3.0 3.0 3.0 11/09/18 11/09/18 11/09/18 11/09/18 20:04 20:20 21:52 23:00 Temp 98.9 98.9 Pulse 74 73 Resp 20 18 B/P (MAP) 127/56 158/63 (94) Pulse Ox 98 97 97 O2 Delivery Nasal Cannula Nasal Cannula Nasal Cannula O2 Flow Rate 3.0 3.0 11/10/18 11/10/18 11/10/18 11/10/18 03:00 07:00 07:35 11:00 Temp 97.9 97.7 98.2 97.9 97.7 98.2 Pulse 72 64 64 Resp 18 18 17 B/P (MAP) 177/68 (104) 143/93 (110) 119/56 (77) Pulse Ox 97 98 94 98 O2 Delivery Nasal Cannula Nasal Cannula Nasal Cannula Nasal Cannula O2 Flow Rate 3.0 Intake and Output 11/09/18 11/09/18 11/10/18 15:00 23:00 07:00 Intake Total 380 ml 280 ml 470 ml Output Total 2103 ml 3452 ml Balance -1723 ml -3172 ml 470 ml PABLO SHERMAN MD Nov 10, 2018 11:23
--- NOTE | 2018-11-10 11:37 | PDOC ---
Infectious Disease Note Vital Signs: Vital Signs Vital Signs Date Time Temp Pulse Resp B/P (MAP) Pulse Ox O2 Delivery O2 Flow Rate FiO2 11/10/18 11:00 98.2 64 17 119/56 (77) 98 Nasal Cannula 98.2 11/10/18 07:35 3.0 Medications: Inpatient Meds: Current Medications Medications (Trade) Dose Ordered Sig/Celi Start Time Stop Time Status Last Admin Dose Admin Acetaminophen (Tylenol) 650 mg PRN Q6HRS PRN 11/07/18 09:15 Acetaminophen/ Hydrocodone Bitart (Lortab 5/325) 1 tab PRN Q4HRS PRN 11/07/18 09:15 11/09/18 19:20 1 TAB Albuterol Sulfate (Ventolin Neb Soln) 2.5 mg PRN Q4HRS PRN 11/07/18 05:45 Albuterol/ Ipratropium (Duoneb) 3 ml 1X ONCE 11/07/18 05:45 11/07/18 05:46 DC 11/07/18 05:50 3 ML Amlodipine Besylate (Norvasc) 10 mg DAILY 11/07/18 10:00 11/09/18 11:11 10 MG Aspirin (Children'S Aspirin) 81 mg DAILYWBKFT 11/07/18 10:00 11/09/18 11:06 81 MG Budesonide (Pulmicort) 0.5 mg RTBID 11/07/18 10:00 11/10/18 07:33 0.5 MG Calcium Acetate (Phoslo) 667 mg TIDWMEALS 11/07/18 12:00 11/09/18 17:21 667 MG Carvedilol (Coreg) 3.125 mg BIDWMEALS 11/07/18 10:00 Cancel Dextrose (Dextrose 50%-Water Syringe) 25 gm STK-MED ONCE 11/07/18 15:09 11/07/18 15:10 DC Ergocalciferol (Vitamin D2) 50,000 unit WEEKLY 11/14/18 09:00 Fentanyl Citrate (Fentanyl 2ml Vial) 100 mcg 1X ONCE 11/09/18 14:15 11/09/18 14:16 DC 11/09/18 14:15 50 MCG Ferrous Sulfate (Feosol) 325 mg DAILY 11/07/18 10:00 11/09/18 11:08 325 MG Fish Oil (Fish Oil) 1,000 mg DAILY 11/07/18 10:00 11/09/18 11:08 1,000 MG Furosemide (Lasix) 80 mg DAILY 11/07/18 10:00 11/09/18 11:08 80 MG Hydralazine HCl (Apresoline) 10 mg STK-MED ONCE 11/09/18 09:00 11/09/18 15:37 DC Info (PHARMACY MONITORING -- do not chart) 1 each PRN DAILY PRN 11/08/18 14:30 Insulin Glargine (Lantus) 15 units QHS 11/07/18 21:00 11/09/18 22:00 15 UNITS Insulin Human Lispro (HumaLOG) 20 units PRN QHS PRN 11/09/18 22:30 11/09/18 22:47 15 UNITS Iohexol (Omnipaque 300 Mg/ml) 75 ml 1X ONCE 11/09/18 07:00 11/09/18 07:01 DC 11/09/18 07:40 75 ML Labetalol HCl (Normodyne Iv Push) 20 mg PRN Q2HR PRN 11/07/18 09:15 Lactobacillus Rhamnosus (Culturelle) 1 cap BID 11/09/18 21:00 11/09/18 21:51 1 CAP Levothyroxine Sodium (Synthroid) 175 mcg DAILY06 11/07/18 10:00 11/10/18 05:56 175 MCG Lisinopril (Prinivil) 20 mg DAILY 11/07/18 10:00 11/09/18 11:11 20 MG Metoclopramide HCl (Reglan) 5 mg BIDAC 11/07/18 10:00 11/10/18 05:57 5 MG Metoprolol Succinate (Toprol Xl) 12.5 mg DAILY 11/07/18 10:00 11/09/18 11:10 12.5 MG Nicotine (Nicoderm Cq 21mg) 1 patch PRN DAILY PRN 11/07/18 11:15 Pantoprazole Sodium (Protonix) 40 mg DAILYAC 11/07/18 10:00 11/10/18 05:56 40 MG Piperacillin Sod/ Tazobactam Sod (Zosyn Per Pharmacy) 1 each PRN DAILY PRN 11/09/18 12:00 Piperacillin Sod/ Tazobactam Sod 2.25 gm/Sodium Chloride 50 ml @ 100 mls/hr Q8HRS 11/09/18 13:00 11/10/18 05:55 100 MLS/HR Sodium Chloride 1,000 ml @ 400 mls/hr Q2H30M PRN 11/08/18 14:23 11/09/18 02:22 DC Ticagrelor (Brilinta) 90 mg BID 11/07/18 10:00 11/09/18 21:51 90 MG Trazodone HCl (Desyrel) 100 mg PRN QHS PRN 11/07/18 09:15 11/07/18 22:10 100 MG Vancomycin HCl (Vanco Per Pharmacy) 1 each PRN DAILY PRN 11/09/18 12:00 11/09/18 16:22 1 EACH Vancomycin HCl (Vancomycin Random Level) 1 each 1X ONCE 11/11/18 06:00 11/11/18 06:01 Vancomycin HCl 2 gm/Sodium Chloride 500 ml @ 250 mls/hr 1X ONCE 11/09/18 13:00 11/09/18 14:59 DC 11/09/18 13:00 250 MLS/HR Labs: Lab Laboratory Tests Test 11/09/18 12:25 11/09/18 14:15 11/09/18 16:19 11/09/18 21:47 Lactic Acid Level 0.7 mmol/L (0.4-2.0) Body Fluid Source Pleural Body Fluid Color Red Body Fluid Clarity Turbid Body Fluid pH 7.46 Body Fluid Nucleated Cells 708 /cmm (Not Established) Body Fluid Mononuclear WBCs (%) 21 % Body Fluid Polymorphonuclear Cells 76 % Body Fluid Total RBCs Counted 55802 /cmm (Not Body Fluid Other Cells (%) 3 % Body Fluid Glucose 240 mg/dL (.) Body Fluid Total Protein 4.1 g/dL (.) Body Fluid Lactate Dehydrogenase 113 IU/L (.) Glucose (Fingerstick) 225 mg/dL (70-99) 467 mg/dL (70-99) Test 11/10/18 01:59 11/10/18 03:40 11/10/18 07:20 Glucose (Fingerstick) 231 mg/dL (70-99) 151 mg/dL (70-99) White Blood Count 7.0 x10^3/uL (4.0-11.0) Red Blood Count 3.25 x10^6/uL (4.30-5.70) Hemoglobin 9.2 g/dL (13.0-17.5) Hematocrit 28.6 % (39.0-53.0) Mean Corpuscular Volume 88 fL (79-100) Mean Corpuscular Hemoglobin 28 pg (25-35) Mean Corpuscular Hemoglobin Concent 32 g/dL (31-37) Red Cell Distribution Width 17.1 % (11.5-14.5) Platelet Count 240 x10^3/uL (140-400) Neutrophils (%) (Auto) 66 % (31-73) Lymphocytes (%) (Auto) 16 % (24-48) Monocytes (%) (Auto) 8 % (0-9) Eosinophils (%) (Auto) 8 % (0-3) Basophils (%) (Auto) 1 % (0-3) Neutrophils # (Auto) 4.6 x10^3uL (1.8-7.7) Lymphocytes # (Auto) 1.1 x10^3/uL (1.0-4.8) Monocytes # (Auto) 0.6 x10^3/uL (0.0-1.1) Eosinophils # (Auto) 0.6 x10^3/uL (0.0-0.7) Basophils # (Auto) 0.1 x10^3/uL (0.0-0.2) Sodium Level 137 mmol/L (136-145) Potassium Level 4.7 mmol/L (3.5-5.1) Chloride Level 98 mmol/L (98-107) Carbon Dioxide Level 28 mmol/L (21-32) Anion Gap 11 (6-14) Blood Urea Nitrogen 40 mg/dL (8-26) Creatinine 6.1 mg/dL (0.7-1.3) Estimated GFR (Cockcroft-Gault) 9.6 BUN/Creatinine Ratio 7 (6-20) Glucose Level 197 mg/dL (70-99) Calcium Level 8.3 mg/dL (8.5-10.1) Total Bilirubin 0.4 mg/dL (0.2-1.0) Aspartate Amino Transf (AST/SGOT) 10 U/L (15-37) Alanine Aminotransferase (ALT/SGPT) 9 U/L (16-63) Alkaline Phosphatase 111 U/L (46-116) Total Protein 6.3 g/dL (6.4-8.2) Albumin 2.3 g/dL (3.4-5.0) Albumin/Globulin Ratio 0.6 (1.0-1.7) Objective: Assessment: Recurrent bilateral pleural effusion Rt > LT S/P thoracocentesis and Rt CT placement ESRD Abn CT Chest CAD s/p stent Tobaccoism Plan: Plan of Care cont vanc and zosyn renal dosing f/u cults and lab in am cont supportive care ESR,CRP Thank you [id number] NORA KOROMA MD Nov 10, 2018 11:37
[2018-11-10] MEDS ORDERED: IV NORMAL SALINE 1000ML BAG 1,000 ML IV PRN ×2 (11:47)
[2018-11-10] MEDS ORDERED: DIALYSIS PATIENT. MC PRN (12:00)
--- NOTE | 2018-11-10 12:26 | PDOC ---
Renal-Progress Notes Subjective Notes Notes NO NEW COMPLAINTS History of Present Illness Hx of present illness STABLE Vitals Vitals Vital Signs Date Time Temp Pulse Resp B/P (MAP) Pulse Ox O2 Delivery O2 Flow Rate FiO2 11/10/18 11:59 Nasal Cannula 3.0 11/10/18 11:00 98.2 64 17 119/56 (77) 98 98.2 Weight Weight [ ] I.O. Intake and Output Intake and Output 11/10/18 07:00 Intake Total 1130 ml Output Total 5555 ml Balance -4425 ml Intake Oral 1130 ml Output Urine Total 5 ml Chest Tube Drainage Total 5550 ml Labs Labs Laboratory Tests Test 11/09/18 14:15 11/09/18 16:19 11/09/18 21:47 11/10/18 01:59 Body Fluid Source Pleural Body Fluid Color Red Body Fluid Clarity Turbid Body Fluid pH 7.46 Body Fluid Nucleated Cells 708 /cmm (Not Established) Body Fluid Mononuclear WBCs (%) 21 % Body Fluid Polymorphonuclear Cells 76 % Body Fluid Total RBCs Counted 64536 /cmm (Not Body Fluid Other Cells (%) 3 % Body Fluid Glucose 240 mg/dL (.) Body Fluid Total Protein 4.1 g/dL (.) Body Fluid Lactate Dehydrogenase 113 IU/L (.) Glucose (Fingerstick) 225 mg/dL (70-99) 467 mg/dL (70-99) 231 mg/dL (70-99) Test 11/10/18 03:40 11/10/18 07:20 11/10/18 11:28 White Blood Count 7.0 x10^3/uL (4.0-11.0) Red Blood Count 3.25 x10^6/uL (4.30-5.70) Hemoglobin 9.2 g/dL (13.0-17.5) Hematocrit 28.6 % (39.0-53.0) Mean Corpuscular Volume 88 fL (79-100) Mean Corpuscular Hemoglobin 28 pg (25-35) Mean Corpuscular Hemoglobin Concent 32 g/dL (31-37) Red Cell Distribution Width 17.1 % (11.5-14.5) Platelet Count 240 x10^3/uL (140-400) Neutrophils (%) (Auto) 66 % (31-73) Lymphocytes (%) (Auto) 16 % (24-48) Monocytes (%) (Auto) 8 % (0-9) Eosinophils (%) (Auto) 8 % (0-3) Basophils (%) (Auto) 1 % (0-3) Neutrophils # (Auto) 4.6 x10^3uL (1.8-7.7) Lymphocytes # (Auto) 1.1 x10^3/uL (1.0-4.8) Monocytes # (Auto) 0.6 x10^3/uL (0.0-1.1) Eosinophils # (Auto) 0.6 x10^3/uL (0.0-0.7) Basophils # (Auto) 0.1 x10^3/uL (0.0-0.2) Sodium Level 137 mmol/L (136-145) Potassium Level 4.7 mmol/L (3.5-5.1) Chloride Level 98 mmol/L (98-107) Carbon Dioxide Level 28 mmol/L (21-32) Anion Gap 11 (6-14) Blood Urea Nitrogen 40 mg/dL (8-26) Creatinine 6.1 mg/dL (0.7-1.3) Estimated GFR (Cockcroft-Gault) 9.6 BUN/Creatinine Ratio 7 (6-20) Glucose Level 197 mg/dL (70-99) Calcium Level 8.3 mg/dL (8.5-10.1) Total Bilirubin 0.4 mg/dL (0.2-1.0) Aspartate Amino Transf (AST/SGOT) 10 U/L (15-37) Alanine Aminotransferase (ALT/SGPT) 9 U/L (16-63) Alkaline Phosphatase 111 U/L (46-116) Total Protein 6.3 g/dL (6.4-8.2) Albumin 2.3 g/dL (3.4-5.0) Albumin/Globulin Ratio 0.6 (1.0-1.7) Glucose (Fingerstick) 151 mg/dL (70-99) 118 mg/dL (70-99) Review of Systems Constitutional: yes: alert, oriented Ears/Nose/Throat: Yes: no symptom reported Eyes: Yes: no symptom reported Pulmonary: Yes dyspnea Cardiovascular: Yes no symptom reported Gastrointestional: Yes: no symptom reported Genitourinary: Yes: no symptom reported Musculoskeletal: Yes: no symptom reported Skin: Yes no symptom reported Psychiatric/Neurological: Yes: no symptom reported Endocrine: Yes: no symptom reported Physical Exam General Appearance: no apparent distress Skin: warm Respiratory: decreased breath sounds Heart: S1S2 Abdomen: soft, bowel sounds present Genitourinary: bladder flat Extremities: pulses present Neurology: alert Assessment Assessment IMP PL EFFUSION ANEMIA NON COMPLIANCE DM II HTN ESRD PLAN S/P THORACENTESIS HD TODAY UF TO DW CHEST TUBE ENC COMPLIANCE CONT FABIAN LAM ATKINS MD Nov 10, 2018 12:26
[2018-11-10] MEDS: VANCOMYCIN PER PHARMACY MC PRN (14:48)
[2018-11-10 15:00] VITALS: BP 107/56
[2018-11-10 19:00] VITALS: BP 150/67
[2018-11-10] MEDS: INSULIN GLARGINE 300 UNITS/3 ML INSULN.PEN. SQ SCH (21:30)
[2018-11-10] MEDS: HYDROcodone/APAP 5/325MG 1 TAB TABLET PO PRN (21:33)
[2018-11-10 23:00] VITALS: BP 131/60
--- NOTE | 2018-11-11 01:43 | CONS ---
DATE OF CONSULTATION: 11/10/2018 REFERRING PHYSICIAN: Be Durbin MD REASON FOR CONSULTATION: Pleural effusion. HISTORY OF PRESENT ILLNESS: A 58-year-old male who was transferred from [place] with dyspnea and a need for pulmonary evaluation and possible thoracocentesis. The patient is on dialysis Tuesday, Tuesday and Tuesday for end-stage renal disease. He missed 2 sessions and got short of breath. The patient had similar problem 6 months ago, at which time he underwent a thoracocentesis for pleural effusion. Workup was negative. The patient denied any fevers, chills, nausea, vomiting, diarrhea, abdominal pain. Makes urine. Continues to smoke. Chest x-ray revealed large pleural effusion. Thoracocentesis was done, color was red, clarity was turbid, pH was 7.46, nucleated cells were 708, mono was 21, polymorphonuclear cells 76, total rbc 20,096. Recent nasal screen MRSA PCR negative. The patient had a total protein from the fluid and LDH, which is pending at this time. The patient had a thoracocentesis done on 08/25/2018, which showed a total protein of 3.8 and LDH of 194. Cultures were negative. The patient also had bronchoscopy done. Cultures were negative in 07/2018. The patient is currently undergoing dialysis. The patient has been started on Zosyn, received 1 dose of vancomycin. ID consult has been requested for antibiotic management. The patient denies any recent procedure, denies any weight loss, denies any night sweats, denies any loss of appetite, denies any chest pain with deep breathing, denies any history of travel, denies any travel outside the country. PAST MEDICAL HISTORY: End-stage renal disease, on hemodialysis through AV fistula; hyperlipidemia; anemia; congestive heart failure; coronary artery disease; questionable COPD; history of tobaccoism; diabetes mellitus; hypertension; history of recurrent bilateral pleural effusion status post thoracocentesis in 07/2018, cultures negative; status post bronchoscopy in 2018 for acute respiratory failure, cultures were negative; GERD; hypothyroidism; abnormal parathyroid. PAST SURGICAL HISTORY: As per HPI. ALLERGIES: ATORVASTATIN. SOCIAL HISTORY: Tobaccoism plus, no alcohol, no drugs. Lives with his . FAMILY HISTORY: As per HPI. REVIEW OF SYSTEMS: Negative except for above in HPI. PHYSICAL EXAMINATION: VITAL SIGNS: Temperature 97.7, 18 respiratory rate, blood pressure 143/93, oxygen saturation 94% on 3 liters. GENERAL: Alert, oriented x 3 male, undergoing dialysis in no acute distress, comfortable. HEENT: Anicteric. No thrush. NECK: Supple. LUNGS: Decreased breath sounds at the bases. CHEST WALL: Right CT chest tube present intact, draining blood stained drainage. HEART: S1, S2. ABDOMEN: Soft, nontender. NEUROLOGIC: Alert and oriented x 3. EXTREMITIES: No edema. DERMATOLOGIC: Warm, dry. No generalized rash. PSYCHIATRIC: Cooperative, appropriate mood and affect. LABORATORY DATA: On 11/09/2018, pleural fluid color red, turbid clarity, pH 7.46, nucleated cells 708, mononuclear cell 21, polynuclear cells 76, total rbc 20,096. Total protein pending, LDH pending. Hepatitis B surface antigen negative. IgG 654. Free kappa light chains 149. WBC 7.0, hemoglobin 9.2, hematocrit 28.6, platelets 240. Sodium 137, potassium 4.7, chloride 98, carbon dioxide 28, BUN 40, creatinine 6.1, glucose 151, calcium 8.3, total bilirubin 0.4. LFTs within normal limits. Total protein 6.3, albumin 2.3. MICRO: Fluid culture pending at this time. Body fluid; glucose, LDH, protein pending at this time. Blood culture pending at this time. IMAGING: CT chest shows a large right pleural effusion, small to moderate left pleural effusion, bilateral gynecomastia, small right axillary and mediastinal lymph node, overall similar development of swelling and fatty stranding of the right axilla and adjacent chest suspicious for edema or inflammation. Extensive consolidation, collapse of the right lung with a small remaining area of aerated right upper lobe. Development of an area of patchy sclerosis and lucency at the sternum with an anterior cortical defect, uncertain significance, assuming there has been no surgical intervention since previous scan. Possibilities include nonacute fracture or osteomyelitis depending on the clinical findings. Bone scan could be of benefit to determine if there is activity in this area. Chest x-ray, 11/09, interval decrease in volume of large right pleural effusion status post right chest tube placement, moderate ongoing atelectasis or infiltrate in the right lower chest, unchanged small to moderate sized left pleural effusion. IMPRESSION: 1. [id number] hypoxic respiratory failure. 2. Bilateral pleural effusion, right greater than left, status post drainage with right-sided chest tube placement, recurrent bilateral pleural effusion, previous cultures were negative in 07/2018. 3. End-stage renal disease, noncompliant with hemodialysis through arteriovenous fistula. 4. Chronic obstructive pulmonary disease. 5. Tobacco dependence. 6. Coronary artery disease with previous stent placement. 7. Hypertension. 8. Abnormal CT showing development of an area of patchy sclerosis and lucency at the sternum with an anterior cortical defect, uncertain significance. Differential is broad including nonacute fracture or osteomyelitis. There is no sinus drainage at this time. Will need a followup. RECOMMENDATIONS: 1. Continue Zosyn and IV vancomycin, renal dosing. 2. Follow up culture and susceptibility results. 3. Obtain ESR and CRP. 4. Follow up pleural fluid cultures and chest tube management. 5. Continue supportive care. 6. Follow up labs in a.m. and cultures. 7. We will modify treatment depending on culture results and clinical status. Thank you, Dr. Durbin, for consulting Infectious Diseased to participate in this patient's care. If you have any questions, do not hesitate to contact me. NORA KOROMA MD DR: FINN/radha JOB#: [id number] / [id number]
[2018-11-11 03:03] VITALS: BP 146/52
[2018-11-11] MEDS: LEVOTHYROXINE 175 MCG TABLET PO SCH (05:50)
[2018-11-11] MEDS: PIPERACILLIN/TAZOBACTAM 2.25 GM in IV NORMAL SALINE 50ML 50 ML IV SCH ×3 (05:50→21:25)
[2018-11-11] MEDS: PANTOPRAZOLE 40 MG TABLET.DR. PO SCH (05:50)
[2018-11-11] MEDS ORDERED: VANCOMYCIN RANDOM LEVEL. MC ONE (06:00)
[2018-11-11 07:00] VITALS: BP 164/74
[2018-11-11] MEDS: BUDESONIDE 0.5 MG/2 ML NEBU. NEB SCH ×2 (07:28→19:49)
[2018-11-11] MEDS: IPRATRPIUM/ALBUTEROL 0.5/2.5MG 3 ML NEBU. NEB SCH ×5 (07:28→19:50)
[2018-11-11] MEDS: INSULIN LISPRO 300 UNITS/3 ML INSULN.PEN. SQ SCH ×4 (07:30→21:22)
[2018-11-11] MEDS: METOCLOPRAMIDE 5 MG TABLET. PO SCH ×2 (07:38→16:42)
[2018-11-11] MEDS: VANCOMYCIN PER PHARMACY MC PRN (08:10)
[2018-11-11] MEDS ORDERED: INSULIN LISPRO 300 UNITS/3 ML INSULN.PEN. SQ ONE (08:15)
[2018-11-11] MEDS: CALCIUM ACETATE 667 MG CAPSULE PO SCH ×3 (08:15→17:09)
[2018-11-11] MEDS: ASPIRIN CHEWABLE 81 MG TABLET. PO SCH (08:15)
[2018-11-11] MEDS: INSULIN LISPRO 300 UNITS/3 ML INSULN.PEN. SQ PRN (08:19)
--- NOTE | 2018-11-11 08:23 | PDOC ---
PULMONARY PROGRESS NOTES Subjective ct in, sob better, has occ cough, ct drainage 250 cc Vitals Vital Signs Date Time Temp Pulse Resp B/P (MAP) Pulse Ox O2 Delivery O2 Flow Rate FiO2 11/11/18 07:26 99 Nasal Cannula 3.0 11/11/18 07:00 98.4 75 18 164/74 (104) 98.4 ROS: No Nausea, No Chest Pain, No Abdominal Pain, No Increase Cough General: Alert, No acute distress HEENT: Other (nc at perrl) Lungs: Crackles, Other (DECREASE BS IN BASE, r ct) Cardiovascular: S1, S2 Abdomen: Soft, Non-tender Neuro Exam: Alert Extremities: Other (EDEMA) Skin: Warm Labs Laboratory Tests Test 11/09/18 11:29 11/09/18 12:25 11/09/18 14:15 11/09/18 16:19 Glucose (Fingerstick) 242 mg/dL (70-99) 225 mg/dL (70-99) Lactic Acid Level 0.7 mmol/L (0.4-2.0) Body Fluid Source Pleural Body Fluid Color Red Body Fluid Clarity Turbid Body Fluid pH 7.46 Body Fluid Nucleated Cells 708 /cmm (Not Established) Body Fluid Mononuclear WBCs (%) 21 % Body Fluid Polymorphonuclear Cells 76 % Body Fluid Total RBCs Counted 53275 /cmm (Not Body Fluid Other Cells (%) 3 % Body Fluid Glucose 240 mg/dL (.) Body Fluid Total Protein 4.1 g/dL (.) Body Fluid Lactate Dehydrogenase 113 IU/L (.) Test 11/09/18 21:47 11/10/18 01:59 11/10/18 03:40 11/10/18 06:18 Glucose (Fingerstick) 467 mg/dL (70-99) 231 mg/dL (70-99) White Blood Count 7.0 x10^3/uL (4.0-11.0) Red Blood Count 3.25 x10^6/uL (4.30-5.70) Hemoglobin 9.2 g/dL (13.0-17.5) Hematocrit 28.6 % (39.0-53.0) Mean Corpuscular Volume 88 fL (79-100) Mean Corpuscular Hemoglobin 28 pg (25-35) Mean Corpuscular Hemoglobin Concent 32 g/dL (31-37) Red Cell Distribution Width 17.1 % (11.5-14.5) Platelet Count 240 x10^3/uL (140-400) Neutrophils (%) (Auto) 66 % (31-73) Lymphocytes (%) (Auto) 16 % (24-48) Monocytes (%) (Auto) 8 % (0-9) Eosinophils (%) (Auto) 8 % (0-3) Basophils (%) (Auto) 1 % (0-3) Neutrophils # (Auto) 4.6 x10^3uL (1.8-7.7) Lymphocytes # (Auto) 1.1 x10^3/uL (1.0-4.8) Monocytes # (Auto) 0.6 x10^3/uL (0.0-1.1) Eosinophils # (Auto) 0.6 x10^3/uL (0.0-0.7) Basophils # (Auto) 0.1 x10^3/uL (0.0-0.2) Sodium Level 137 mmol/L (136-145) Potassium Level 4.7 mmol/L (3.5-5.1) Chloride Level 98 mmol/L (98-107) Carbon Dioxide Level 28 mmol/L (21-32) Anion Gap 11 (6-14) Blood Urea Nitrogen 40 mg/dL (8-26) Creatinine 6.1 mg/dL (0.7-1.3) Estimated GFR (Cockcroft-Gault) 9.6 BUN/Creatinine Ratio 7 (6-20) Glucose Level 197 mg/dL (70-99) Calcium Level 8.3 mg/dL (8.5-10.1) Total Bilirubin 0.4 mg/dL (0.2-1.0) Aspartate Amino Transf (AST/SGOT) 10 U/L (15-37) Alanine Aminotransferase (ALT/SGPT) 9 U/L (16-63) Alkaline Phosphatase 111 U/L (46-116) Total Protein 6.3 g/dL (6.4-8.2) Albumin 2.3 g/dL (3.4-5.0) Albumin/Globulin Ratio 0.6 (1.0-1.7) Nasal Screen MRSA (PCR) Negative (Negative) Test 11/10/18 07:20 11/10/18 11:28 11/10/18 16:28 11/10/18 20:31 Glucose (Fingerstick) 151 mg/dL (70-99) 118 mg/dL (70-99) 194 mg/dL (70-99) 353 mg/dL (70-99) Test 11/11/18 05:00 11/11/18 07:26 Random Vancomycin Level 15.6 mcg/mL Glucose (Fingerstick) 510 mg/dL (70-99) Laboratory Tests Test 11/10/18 11:28 11/10/18 16:28 11/10/18 20:31 11/11/18 05:00 Glucose (Fingerstick) 118 mg/dL (70-99) 194 mg/dL (70-99) 353 mg/dL (70-99) Random Vancomycin Level 15.6 mcg/mL Test 11/11/18 07:26 Glucose (Fingerstick) 510 mg/dL (70-99) Medications Active Scripts Medications Dose Route/Sig Max Daily Dose Days Date Category [facility] 3 Fish Oil Softgel ([facility]-3 Fatty Acids/Fish Oil) 1 Each Capsule.dr 1 Each PO DAILY 11/07/18 Reported Toprol Xl (Metoprolol Succinate) 25 Mg Tab.er.24h 0.5 Tab PO DAILY 11/07/18 Reported Lasix (Furosemide) 80 Mg Tablet 80 Mg PO DAILY 11/07/18 Reported Calcium Acetate 667 Mg Tablet 667 Mg PO TIDWMEALS 11/07/18 Reported Hydralazine Hcl 10 Mg Tablet 10 Mg PO TID MDD 1 10/04/18 Rx Amlodipine Besylate 10 Mg Tablet 10 Mg PO DAILY MDD 1 10/04/18 Rx Lisinopril 40 Mg Tablet 20 Mg PO DAILY MDD 1 10/04/18 Rx Tylenol (Acetaminophen) 325 Mg Tablet 650 Mg PO PRN Q6HRS 10/02/18 Reported Humalog (Insulin Lispro) 100 Unit/1 Ml Cartridge 6 Unit SQ TIDBFRMEAL 10/02/18 Reported Ferrous Sulfate 325 Mg Tablet 1 Tab PO DAILY 09/15/18 Reported Levothyroxine Sodium 175 Mcg Tablet 1 Tab PO DAILY 09/15/18 Reported Reglan (Metoclopramide Hcl) 10 Mg Tablet 5 Mg PO BIDAC 09/15/18 Reported [Pantoprazole] 40 MG Tablet.dr 40 Mg PO DAILYAC 30 09/09/18 Rx Trazodone Hcl 100 Mg Tablet 100 Mg PO PRN QHS PRN 30 09/09/18 Rx Lantus Solostar (Insulin Glargine,Hum.rec.anlog) 100 Unit/1 Ml Insuln.pen 15 Units SQ QHS 30 09/09/18 Rx Budesonide 0.5 Mg/2 Ml Ampul.neb 0.5 Mg NEB RTBID 30 08/29/18 Rx Aspirin 81 Mg Tab.chew 81 Mg PO DAILYWBKFT 30 08/29/18 Rx Carvedilol (Carvedilol) 3.125 Mg Tablet 3.125 Mg PO BIDWMEALS 30 08/29/18 Rx Duoneb 0.5-3(2.5) Mg/3 Ml (Albuterol/Ipratropium) 3 Ml Ampul.neb 3 Ml NEB RTQID 30 08/29/18 Rx Brilinta (Ticagrelor) 90 Mg Tablet 90 Mg PO BID 30 08/29/18 Rx Vitamin D2 (Ergocalciferol (Vitamin D2)) 50,000 Unit Capsule 50,000 Unit PO WEEKLY 04/02/18 Rx Dialyvite Tablet (Folic Acid/Vitamin B Comp W-C) 1 Each Tablet 1 Each PO 03/28/18 Reported Impression . IMPRESSION: 1. Acute on chronic hypoxemic respiratory failure. 2. Bilateral pleural effusions, left greater than right. 3. End-stage renal disease, noncompliant with hemodialysis. 4. Hypertension. 5. Chronic obstructive pulmonary disease. 6. Tobacco dependent. 7. Coronary artery disease with previous stent placement. 11/09 Impression: Right-sided thoracostomy tube placement. 2.1 L serosanguineous fluid removed. Plan . CONTINUE CHEST TUBE, increase suction to -40, cxr FOLLOW UP ON ANALYSIS, exudate CYTOLOGY IS PENDING HD per nephro SPOKE WITH AND PT and rn BRYAN NICOLE MD Nov 11, 2018 08:23
[2018-11-11] MEDS: FUROSEMIDE 80 MG TABLET. PO SCH (08:49)
[2018-11-11] MEDS: OMEGA-3 FATTY ACIDS/FISH OIL 1,000 MG CAPSULE. PO SCH (08:49)
[2018-11-11] MEDS: FERROUS SULFATE 325 MG TABLET. PO SCH (08:49)
[2018-11-11] MEDS: hydrALAZINE 10 MG TABLET PO SCH ×3 (08:50→21:18)
[2018-11-11] MEDS: LISINOPRIL 20 MG TABLET PO SCH (08:50)
[2018-11-11] MEDS: LACTOBACILLUS RHAMNOSUS GG 1 CAPSULE. PO SCH ×2 (08:50→21:18)
[2018-11-11] MEDS: METOPROLOL SUCC 24HR ER 25 MG TAB.ER.24H. PO SCH (08:50)
[2018-11-11] MEDS: TICAGRELOR 90 MG TABLET. PO SCH ×2 (08:51→21:17)
[2018-11-11] MEDS: amLODIPine BESYLATE 10 MG TABLET PO SCH (08:51)
--- NOTE | 2018-11-11 09:24 | PDOC ---
PROGRESS NOTES Chief Complaint Chief Complaint hypoxia, large right pleural effusion ESRD, on HD Tuesday Anemia of ESRD Hypertension, controlled Diabetes- poorly controlled History of cardiac stents-chronic stable tobaccoism History of Present Illness History of Present Illness Dr. Peraza following chest tube today s/p thoracentesis 11/08, chest tube sliding scale insulin home meds, they wanted his lipitor restarted, Vitals Vitals Vital Signs Date Time Temp Pulse Resp B/P (MAP) Pulse Ox O2 Delivery O2 Flow Rate FiO2 11/11/18 08:51 75 164/74 11/11/18 07:26 99 Nasal Cannula 3.0 11/11/18 07:00 98.4 18 98.4 Physical Exam General: Alert, Oriented X3, Cooperative, mild distress Heart: Regular rate, Normal S1, Normal S2 Lungs: Other (DECREASE BS IN BASE) Abdomen: Normal bowel sounds, Soft, No tenderness Extremities: No clubbing, No cyanosis Skin: No breakdown Labs LABS Laboratory Tests Test 11/10/18 11:28 11/10/18 16:28 11/10/18 20:31 11/11/18 05:00 Glucose (Fingerstick) 118 mg/dL (70-99) 194 mg/dL (70-99) 353 mg/dL (70-99) Random Vancomycin Level 15.6 mcg/mL Test 11/11/18 07:26 Glucose (Fingerstick) 510 mg/dL (70-99) Review of Systems Review of Systems no n.v.d no cough "hungry" Comment Review of Relevant I have reviewed the following items yesenia (where applicable) has been applied. Labs Laboratory Tests Test 11/09/18 11:29 11/09/18 12:25 11/09/18 14:15 11/09/18 16:19 Glucose (Fingerstick) 242 mg/dL (70-99) 225 mg/dL (70-99) Lactic Acid Level 0.7 mmol/L (0.4-2.0) Body Fluid Source Pleural Body Fluid Color Red Body Fluid Clarity Turbid Body Fluid pH 7.46 Body Fluid Nucleated Cells 708 /cmm (Not Established) Body Fluid Mononuclear WBCs (%) 21 % Body Fluid Polymorphonuclear Cells 76 % Body Fluid Total RBCs Counted 01370 /cmm (Not Body Fluid Other Cells (%) 3 % Body Fluid Glucose 240 mg/dL (.) Body Fluid Total Protein 4.1 g/dL (.) Body Fluid Lactate Dehydrogenase 113 IU/L (.) Test 11/09/18 21:47 11/10/18 01:59 11/10/18 03:40 11/10/18 06:18 Glucose (Fingerstick) 467 mg/dL (70-99) 231 mg/dL (70-99) White Blood Count 7.0 x10^3/uL (4.0-11.0) Red Blood Count 3.25 x10^6/uL (4.30-5.70) Hemoglobin 9.2 g/dL (13.0-17.5) Hematocrit 28.6 % (39.0-53.0) Mean Corpuscular Volume 88 fL (79-100) Mean Corpuscular Hemoglobin 28 pg (25-35) Mean Corpuscular Hemoglobin Concent 32 g/dL (31-37) Red Cell Distribution Width 17.1 % (11.5-14.5) Platelet Count 240 x10^3/uL (140-400) Neutrophils (%) (Auto) 66 % (31-73) Lymphocytes (%) (Auto) 16 % (24-48) Monocytes (%) (Auto) 8 % (0-9) Eosinophils (%) (Auto) 8 % (0-3) Basophils (%) (Auto) 1 % (0-3) Neutrophils # (Auto) 4.6 x10^3uL (1.8-7.7) Lymphocytes # (Auto) 1.1 x10^3/uL (1.0-4.8) Monocytes # (Auto) 0.6 x10^3/uL (0.0-1.1) Eosinophils # (Auto) 0.6 x10^3/uL (0.0-0.7) Basophils # (Auto) 0.1 x10^3/uL (0.0-0.2) Sodium Level 137 mmol/L (136-145) Potassium Level 4.7 mmol/L (3.5-5.1) Chloride Level 98 mmol/L (98-107) Carbon Dioxide Level 28 mmol/L (21-32) Anion Gap 11 (6-14) Blood Urea Nitrogen 40 mg/dL (8-26) Creatinine 6.1 mg/dL (0.7-1.3) Estimated GFR (Cockcroft-Gault) 9.6 BUN/Creatinine Ratio 7 (6-20) Glucose Level 197 mg/dL (70-99) Calcium Level 8.3 mg/dL (8.5-10.1) Total Bilirubin 0.4 mg/dL (0.2-1.0) Aspartate Amino Transf (AST/SGOT) 10 U/L (15-37) Alanine Aminotransferase (ALT/SGPT) 9 U/L (16-63) Alkaline Phosphatase 111 U/L (46-116) Total Protein 6.3 g/dL (6.4-8.2) Albumin 2.3 g/dL (3.4-5.0) Albumin/Globulin Ratio 0.6 (1.0-1.7) Nasal Screen MRSA (PCR) Negative (Negative) Test 11/10/18 07:20 11/10/18 11:28 11/10/18 16:28 11/10/18 20:31 Glucose (Fingerstick) 151 mg/dL (70-99) 118 mg/dL (70-99) 194 mg/dL (70-99) 353 mg/dL (70-99) Test 11/11/18 05:00 11/11/18 07:26 Random Vancomycin Level 15.6 mcg/mL Glucose (Fingerstick) 510 mg/dL (70-99) Laboratory Tests Test 11/10/18 11:28 11/10/18 16:28 11/10/18 20:31 11/11/18 05:00 Glucose (Fingerstick) 118 mg/dL (70-99) 194 mg/dL (70-99) 353 mg/dL (70-99) Random Vancomycin Level 15.6 mcg/mL Test 11/11/18 07:26 Glucose (Fingerstick) 510 mg/dL (70-99) Microbiology 11/09/18 Blood Culture - Preliminary, Resulted NO GROWTH AFTER 1 DAY 11/09/18 Anaerobic/Aerobic Culture, Resulted Pending 11/09/18 Anaerobic Culture Result 1 (TERENCE), Resulted Pending 11/09/18 Aerobic Culture, Resulted Pending 11/09/18 Aerobic Culture Result 1 (TERENCE), Resulted Pending 11/09/18 Gram Stain - Final, Resulted 11/09/18 Gram Stain Result 1 (TERENCE) - Final, Resulted 2/14/19 Gram Stain Result 2 (TERENCE) - Final, Resulted Medications Current Medications Dextrose (Dextrose 50%-Water Syringe) 12.5 gm PRN Q15MIN PRN IV SEE COMMENTS; Start 11/07/18 at 03:30; Stop 11/07/18 at 07:42; Status DC Albuterol/ Ipratropium (Duoneb) 3 ml RTQID NEB Last administered on 11/11/18at 07:28; Start 11/07/18 at 08:00 Albuterol/ Ipratropium (Duoneb) 3 ml 1X ONCE NEB Last administered on at 05:50; Start 11/07/18 at 05:45; Stop 11/07/18 at 05:46; Status DC Albuterol Sulfate (Ventolin Neb Soln) 2.5 mg PRN Q4HRS PRN NEB SHORTNESS OF BREATH; Start 11/07/18 at 05:45 Furosemide (Lasix) 40 mg 1X ONCE IVP Last administered on 11/07/18at 05:49; Start 11/07/18 at 05:45; Stop 11/07/18 at 05:46; Status DC Insulin Human Lispro (HumaLOG) 20 units 1X ONCE SQ Last administered on at 07:58; Start 11/07/18 at 07:45; Stop 11/07/18 at 07:46; Status DC Insulin Human Lispro (HumaLOG) 0-7 UNITS TIDWMEALS SQ ; Start 11/07/18 at 12:00 ; Stop 11/07/18 at 12:00; Status DC Dextrose (Dextrose 50%-Water Syringe) 12.5 gm PRN Q15MIN PRN IV SEE COMMENTS; Start 11/07/18 at 07:45; Stop 11/07/18 at 09:06; Status DC Insulin Human Lispro (HumaLOG) 0-9 UNITS TIDWMEALS SQ Last administered on 11/09at 17:23; Start 11/07/18 at 09:30; Stop 11/09/18 at 22:40; Status DC Dextrose (Dextrose 50%-Water Syringe) 12.5 gm PRN Q15MIN PRN IV SEE COMMENTS; Start 11/07/18 at 09:15 Labetalol HCl (Normodyne Iv Push) 20 mg PRN Q2HR PRN IVP HYPERTENSION, SEE COMMENTS; Start 11/07/18 at 09:15 Acetaminophen (Tylenol) 650 mg PRN Q6HRS PRN PO MILD PAIN / TEMP; Start at 09:15 Amlodipine Besylate (Norvasc) 10 mg DAILY PO Last administered on 11/11/18 08: 51; Start 11/07/18 at 10:00 Aspirin (Children'S Aspirin) 81 mg DAILYWBKFT PO Last administered on 08:15; Start 11/07/18 at 10:00 Budesonide (Pulmicort) 0.5 mg RTBID NEB Last administered on 11/11/18 07:28; Start 11/07/18 at 10:00 Carvedilol (Coreg) 3.125 mg BIDWMEALS PO ; Start 11/07/18 at 10:00; Status Cancel Ergocalciferol (Vitamin D2) 50,000 unit WEEKLY PO ; Start 11/14/18 at 09:00 Ferrous Sulfate (Feosol) 325 mg DAILY PO Last administered on 11/11/18 08:49; Start 11/07/18 at 10:00 Furosemide (Lasix) 80 mg DAILY PO Last administered on 11/11/18 08:49; Start 11/07/18 at 10:00 Insulin Glargine (Lantus) 15 units QHS SQ Last administered on 11/10/18 21:30 ; Start 11/07/18 at 21:00 Levothyroxine Sodium (Synthroid) 175 mcg DAILY06 PO Last administered on 05:50; Start 11/07/18 at 10:00 Lisinopril (Prinivil) 20 mg DAILY PO Last administered on 11/11/18 08:50; Start 11/07/18 at 10:00 Metoclopramide HCl (Reglan) 5 mg BIDAC PO Last administered on 11/11/18 07:38 ; Start 11/07/18 at 10:00 Metoprolol Succinate (Toprol Xl) 12.5 mg DAILY PO Last administered on 08:50; Start 11/07/18 at 10:00 Ticagrelor (Brilinta) 90 mg BID PO Last administered on 11/11/18 08:51; Start 11/07/18 at 10:00 Trazodone HCl (Desyrel) 100 mg PRN QHS PRN PO INSOMNIA Last administered on 09/13at 22:10; Start 11/07/18 at 09:15 Calcium Acetate (Phoslo) 667 mg TIDWMEALS PO Last administered on 11/11/18at 08: 15; Start 11/07/18 at 12:00 Hydralazine HCl (Apresoline) 10 mg TID PO Last administered on 11/11/18at 08:50 ; Start 11/07/18 at 14:00 Insulin Human Lispro (HumaLOG) 6 units TIDWMEALS SQ Last administered on at 11:45; Start 11/07/18 at 09:30; Stop 11/07/18 at 16:01; Status DC Fish Oil (Fish Oil) 1,000 mg DAILY PO Last administered on 11/11/18at 08:49; Start 11/07/18 at 10:00 Pantoprazole Sodium (Protonix) 40 mg DAILYAC PO Last administered on 11/11/18at 05:50; Start 11/07/18 at 10:00 Acetaminophen/ Hydrocodone Bitart (Lortab 5/325) 1 tab PRN Q4HRS PRN PO MODERATE - SEVERE PAIN Last administered on 11/10/18at 21:33; Start 11/07/18 at 09:15 Nicotine (Nicoderm Cq 21mg) 1 patch PRN DAILY PRN TD SMOKING CESSATION; Start 11/07/18 at 11:15 Dextrose (Dextrose 50%-Water Syringe) 25 gm STK-MED ONCE IV ; Start 11/07/18 at 15:09; Stop 11/07/18 at 15:10; Status DC Sodium Chloride 1,000 ml @ 1,000 mls/hr Q1H PRN IV hypotension; Start 11/07/18 at 16:10; Stop 11/07/18 at 22:09; Status DC Info (PHARMACY MONITORING -- do not chart) 1 each PRN DAILY PRN MC SEE COMMENTS ; Start 11/07/18 at 16:15; Status UNV Info (PHARMACY MONITORING -- do not chart) 1 each PRN DAILY PRN MC SEE COMMENTS ; Start 11/07/18 at 16:15; Stop 11/09/18 at 12:04; Status DC Sodium Chloride 1,000 ml @ 1,000 mls/hr Q1H PRN IV hypotension; Start 11/08/18 at 14:23; Stop 11/08/18 at 20:22; Status DC Sodium Chloride 1,000 ml @ 400 mls/hr Q2H30M PRN IV PATENCY; Start 11/08/18 at 14:23; Stop 11/09/18 at 02:22; Status DC Info (PHARMACY MONITORING -- do not chart) 1 each PRN DAILY PRN MC SEE COMMENTS ; Start 11/08/18 at 14:30 Iohexol (Omnipaque 300 Mg/ml) 75 ml 1X ONCE IV Last administered on 11/09/18at 07:40; Start 11/09/18 at 07:00; Stop 11/09/18 at 07:01; Status DC Piperacillin Sod/ Tazobactam Sod (Zosyn Per Pharmacy) 1 each PRN DAILY PRN MC SEE COMMENTS; Start 11/09/18 at 12:00 Vancomycin HCl (Vanco Per Pharmacy) 1 each PRN DAILY PRN MC SEE COMMENTS Last administered on 11/11/18at 08:10; Start 11/09/18 at 12:00 Piperacillin Sod/ Tazobactam Sod 2.25 gm/Sodium Chloride 50 ml @ 100 mls/hr Q8HRS IV Last administered on 11/11/18at 05:50; Start 11/09/18 at 13:00 Vancomycin HCl 2 gm/Sodium Chloride 500 ml @ 250 mls/hr 1X ONCE IV Last administered on 11/09/18at 13:00; Start 11/09/18 at 13:00; Stop 11/09/18 at 14:59 ; Status DC Fentanyl Citrate (Fentanyl 2ml Vial) 100 mcg STK-MED ONCE .ROUTE ; Start at 13:54; Stop 11/09/18 at 13:55; Status DC Fentanyl Citrate (Fentanyl 2ml Vial) 100 mcg 1X ONCE IV Last administered on at 14:15; Start 11/09/18 at 14:15; Stop 11/09/18 at 14:16; Status DC Hydralazine HCl (Apresoline) 10 mg STK-MED ONCE .ROUTE ; Start 11/07/18 at 09:00 ; Stop 11/09/18 at 15:36; Status DC Hydralazine HCl (Apresoline) 10 mg STK-MED ONCE .ROUTE ; Start 11/07/18 at 09:00 ; Stop 11/09/18 at 15:36; Status DC Hydralazine HCl (Apresoline) 10 mg STK-MED ONCE .ROUTE ; Start 11/08/18 at 09:00 ; Stop 11/09/18 at 15:37; Status DC Hydralazine HCl (Apresoline) 10 mg STK-MED ONCE .ROUTE ; Start 11/09/18 at 09:00 ; Stop 11/09/18 at 15:37; Status DC Hydralazine HCl (Apresoline) 10 mg STK-MED ONCE .ROUTE ; Start 11/09/18 at 09:00 ; Stop 11/09/18 at 15:37; Status DC Lactobacillus Rhamnosus (Culturelle) 1 cap BID PO Last administered on at 08:50; Start 11/09/18 at 21:00 Vancomycin HCl (Vancomycin Random Level) 1 each 1X ONCE MC ; Start 11/11/18 at 06:00; Stop 11/11/18 at 06:01; Status DC Insulin Human Lispro (HumaLOG) 0-9 UNITS QIDACHS SQ ; Start 11/09/18 at 23:00 Insulin Human Lispro (HumaLOG) 20 units PRN QHS PRN SQ SEE COMMENTS Last administered on 11/11/18at 08:19; Start 11/09/18 at 22:30 Sodium Chloride 1,000 ml @ 1,000 mls/hr Q1H PRN IV hypotension; Start 11/10/18 at 11:47; Stop 11/10/18 at 17:46; Status DC Sodium Chloride 1,000 ml @ 400 mls/hr Q2H30M PRN IV PATENCY; Start 11/10/18 at 11:47; Stop 11/10/18 at 23:46; Status DC Info (PHARMACY MONITORING -- do not chart) 1 each PRN DAILY PRN MC SEE COMMENTS ; Start 11/10/18 at 12:00; Status UNV Insulin Human Lispro (HumaLOG) 20 units 1X ONCE SQ Last administered on at 08:28; Start 11/11/18 at 08:15; Stop 11/11/18 at 08:16; Status DC Active Scripts Active Hydralazine Hcl 10 Mg Tablet 10 Mg PO TID MDD 1 Amlodipine Besylate 10 Mg Tablet 10 Mg PO DAILY MDD 1 Lisinopril 40 Mg Tablet 20 Mg PO DAILY MDD 1 [Pantoprazole] 40 MG Tablet.dr 40 Mg PO DAILYAC 30 Days Trazodone Hcl 100 Mg Tablet 100 Mg PO PRN QHS PRN 30 Days Lantus Solostar (Insulin Glargine,Hum.rec.anlog) 100 Unit/1 Ml Insuln.pen 15 Units SQ QHS 30 Days Budesonide 0.5 Mg/2 Ml Ampul.neb 0.5 Mg NEB RTBID 30 Days Aspirin 81 Mg Tab.chew 81 Mg PO DAILYWBKFT 30 Days Carvedilol (Carvedilol) 3.125 Mg Tablet 3.125 Mg PO BIDWMEALS 30 Days Duoneb 0.5-3(2.5) Mg/3 Ml (Albuterol/Ipratropium) 3 Ml Ampul.neb 3 Ml NEB RTQID 30 Days Brilinta (Ticagrelor) 90 Mg Tablet 90 Mg PO BID 30 Days Vitamin D2 (Ergocalciferol (Vitamin D2)) 50,000 Unit Capsule 50,000 Unit PO WEEKLY Reported [place] 3 Fish Oil Softgel ([place]-3 Fatty Acids/Fish Oil) 1 Each Capsule.dr 1 Each PO DAILY Toprol Xl (Metoprolol Succinate) 25 Mg Tab.er.24h 0.5 Tab PO DAILY Lasix (Furosemide) 80 Mg Tablet 80 Mg PO DAILY Calcium Acetate 667 Mg Tablet 667 Mg PO TIDWMEALS Tylenol (Acetaminophen) 325 Mg Tablet 650 Mg PO PRN Q6HRS Humalog (Insulin Lispro) 100 Unit/1 Ml Cartridge 6 Unit SQ TIDBFRMEAL Ferrous Sulfate 325 Mg Tablet 1 Tab PO DAILY Levothyroxine Sodium 175 Mcg Tablet 1 Tab PO DAILY Reglan (Metoclopramide Hcl) 10 Mg Tablet 5 Mg PO BIDAC Dialyvite Tablet (Folic Acid/Vitamin B Comp W-C) 1 Each Tablet 1 Each PO Vitals/I & O Vital Sign - Last 24 Hours 11/10/18 11/10/18 11/10/18 11/10/18 11:00 11:59 15:00 15:49 Temp 98.2 98.6 98.2 98.6 Pulse 64 85 Resp 17 20 B/P (MAP) 119/56 (77) 107/56 (73) Pulse Ox 98 98 O2 Delivery Nasal Cannula Nasal Cannula Nasal Cannula Nasal Cannula O2 Flow Rate 3.0 3.0 11/10/18 11/10/18 11/10/18 11/10/18 18:00 19:00 19:17 19:18 Temp 98.8 98.8 Pulse 85 83 Resp 20 B/P (MAP) 107/56 150/67 (94) Pulse Ox 97 O2 Delivery Nasal Cannula Nasal Cannula Nasal Cannula O2 Flow Rate 3.0 3.0 3.0 11/10/18 11/10/18 11/10/18 11/10/18 19:55 21:22 21:33 22:33 Pulse 83 B/P (MAP) 150/67 O2 Delivery Nasal Cannula Nasal Cannula Nasal Cannula O2 Flow Rate 3.0 3.0 3.0 11/10/18 11/11/18 11/11/18 11/11/18 23:00 03:03 07:00 07:26 Temp 98.6 98.4 98.4 98.6 98.4 98.4 Pulse 86 86 75 Resp 18 20 18 B/P (MAP) 131/60 (83) 146/52 (83) 164/74 (104) Pulse Ox 97 96 96 99 O2 Delivery Nasal Cannula Nasal Cannula Nasal Cannula Nasal Cannula O2 Flow Rate 3.0 3.0 3.0 3.0 11/11/18 11/11/18 11/11/18 11/11/18 07:26 08:50 08:50 08:50 Pulse 75 75 75 B/P (MAP) 164/74 164/74 164/74 Pulse Ox 99 O2 Delivery Nasal Cannula O2 Flow Rate 3.0 11/11/18 08:51 Pulse 75 B/P (MAP) 164/74 Intake and Output 11/10/18 11/10/18 11/11/18 15:00 23:00 07:00 Intake Total 620 ml 380 ml 540 ml Output Total 2 ml 200 ml 250 ml Balance 618 ml 180 ml 290 ml CORNELIO OATES MD Nov 11, 2018 09:24
[2018-11-11 11:00] VITALS: BP 135/65
--- NOTE | 2018-11-11 11:50 | PDOC ---
Renal-Progress Notes Subjective Notes Notes NO NEW COMPLAINTS History of Present Illness Hx of present illness STABLE Vitals Vitals Vital Signs Date Time Temp Pulse Resp B/P (MAP) Pulse Ox O2 Delivery O2 Flow Rate FiO2 11/11/18 08:51 75 164/74 11/11/18 07:26 99 Nasal Cannula 3.0 11/11/18 07:00 98.4 18 98.4 Weight Weight [ ] I.O. Intake and Output Intake and Output 11/11/18 07:00 Intake Total 1540 ml Output Total 452 ml Balance 1088 ml Intake Oral 1540 ml Output Urine Total 202 ml Chest Tube Drainage Total 250 ml # Voids 2 Labs Labs Laboratory Tests Test 11/10/18 16:28 11/10/18 20:31 11/11/18 05:00 11/11/18 07:26 Glucose (Fingerstick) 194 mg/dL (70-99) 353 mg/dL (70-99) 510 mg/dL (70-99) Random Vancomycin Level 15.6 mcg/mL Micro Micro Microbiology 11/09/18 Blood Culture - Preliminary, Resulted NO GROWTH AFTER 1 DAY 11/09/18 Anaerobic/Aerobic Culture, Resulted Pending 11/09/18 Anaerobic Culture Result 1 (TERENCE), Resulted Pending 11/09/18 Aerobic Culture, Resulted Pending 11/09/18 Aerobic Culture Result 1 (TERENCE), Resulted Pending 11/09/18 Gram Stain - Final, Resulted 11/09/18 Gram Stain Result 1 (TERENCE) - Final, Resulted 11/09/18 Gram Stain Result 2 (TERENCE) - Final, Resulted Review of Systems Constitutional: yes: alert, oriented Ears/Nose/Throat: Yes: no symptom reported Eyes: Yes: no symptom reported Pulmonary: Yes dyspnea Cardiovascular: Yes no symptom reported Gastrointestional: Yes: no symptom reported Genitourinary: Yes: no symptom reported Musculoskeletal: Yes: no symptom reported Skin: Yes no symptom reported Psychiatric/Neurological: Yes: no symptom reported Endocrine: Yes: no symptom reported Physical Exam General Appearance: no apparent distress Skin: warm Respiratory: decreased breath sounds Heart: S1S2 Abdomen: soft, bowel sounds present Genitourinary: bladder flat Extremities: pulses present Neurology: alert Assessment Assessment IMP PL EFFUSION ANEMIA NON COMPLIANCE DM II HTN ESRD PLAN HD TUESDAY CHEST TUBE ENC COMPLIANCE CONT FABIAN LAM ATKINS MD Nov 11, 2018 11:50
--- NOTE | 2018-11-11 14:06 | PDOC ---
Infectious Disease Note Subjective Subjective Feeling alright Denies SOA/CP/CP Denies F/C/S Denies N/V/D ROS ROS per HPI Vital Sign Vital Signs Vital Signs Date Time Temp Pulse Resp B/P (MAP) Pulse Ox O2 Delivery O2 Flow Rate FiO2 11/11/18 13:10 99 Nasal Cannula 3.0 11/11/18 11:00 98.1 93 18 135/65 (88) 98.1 Physical Exam PHYSICAL EXAM GENERAL: Propped up in bed, alert, watching TV HEENT: No thrush. NECK: Supple. LUNGS: Decreased breath sounds at the bases. Right CT intact HEART: S1, S2. ABDOMEN: Soft, nontender. EXTREMITIES: No edema. SKIN: Warm, dry. No generalized rash. COMPLIANCE SPEC: Alert and oriented x 3 Labs Lab Laboratory Tests Test 11/10/18 16:28 11/10/18 20:31 11/11/18 05:00 11/11/18 07:26 Glucose (Fingerstick) 194 mg/dL (70-99) 353 mg/dL (70-99) 510 mg/dL (70-99) Random Vancomycin Level 15.6 mcg/mL Test 11/11/18 11:10 Glucose (Fingerstick) 260 mg/dL (70-99) Micro 11/09/18 Blood Culture - Preliminary, Resulted NO GROWTH AFTER 2 DAYS ANAEROBIC-AEROBIC CULTURE PENDING ANAEROBIC RES 1 PENDING AEROBIC CULT PENDING AEROBIC RES 1 PENDING GRAM STAIN Final Final report GRAM STAIN RES 1 Final Comment Few white blood cells. GRAM STAIN RES 2 Final No organisms seen Performed at: - [facility] Objective Assessment Recurrent bilateral pleural effusion Rt > LT S/P thoracocentesis and Rt CT placement ESRD Abn CT Chest CAD s/p stent Tobaccoism Plan Plan of Care cont vanc and Zosyn renal dosing Trough 15.6 f/u cultures Probiotics cont supportive care Patient seen and examined. Chart reviewed in detail. Case d/w RESIDENTIAL CAREGIVER. Agree with above plan. TALISHA DEUTSCH APRN Nov 11, 2018 14:06 NIKKIE ACOSTA MD Nov 11, 2018 23:25
[2018-11-11 15:00] VITALS: BP 128/53
[2018-11-11] MEDS: HYDROcodone/APAP 5/325MG 1 TAB TABLET PO PRN (17:10)
[2018-11-11 19:00] VITALS: BP 143/59
[2018-11-11] MEDS: SIMVASTATIN 20 MG TABLET PO SCH (21:17)
[2018-11-11] MEDS: INSULIN GLARGINE 300 UNITS/3 ML INSULN.PEN. SQ SCH (21:19)
[2018-11-11 23:00] VITALS: BP 135/56
[2018-11-12 03:00] VITALS: BP 125/57
[2018-11-12] MEDS: LEVOTHYROXINE 175 MCG TABLET PO SCH (06:27)
[2018-11-12] MEDS: PIPERACILLIN/TAZOBACTAM 2.25 GM in IV NORMAL SALINE 50ML 50 ML IV SCH ×3 (06:27→21:43)
[2018-11-12 07:00] VITALS: BP 132/69
[2018-11-12] MEDS: IPRATRPIUM/ALBUTEROL 0.5/2.5MG 3 ML NEBU. NEB SCH ×3 (07:24→14:49)
[2018-11-12] MEDS: BUDESONIDE 0.5 MG/2 ML NEBU. NEB SCH ×2 (07:24→19:58)
[2018-11-12] MEDS: METOCLOPRAMIDE 5 MG TABLET. PO SCH ×2 (07:29→16:41)
[2018-11-12] MEDS: PANTOPRAZOLE 40 MG TABLET.DR. PO SCH (07:33)
--- NOTE | 2018-11-12 07:35 | RAD ---
AP chest. HISTORY: Pleural effusion, right chest tube AP view was taken of the chest. There is a right chest tube in place without change. There is still a right pleural effusion or pleural thickening with a mild improvement compared to the film from November 09. There is a small to moderate left pleural effusion. There is atelectasis or infiltrates in both lower lobes. IMPRESSION: 1. Mild improvement in right pleural effusion. 2. Little other change. Electronically signed by: Thom Ring MD (11/12/2018 7:32 AM) [facility]
--- NOTE | 2018-11-12 07:51 | PDOC ---
PULMONARY PROGRESS NOTES Subjective ct in, sob better, has occ cough, ct drainage > 200cc Vitals Vital Signs Date Time Temp Pulse Resp B/P (MAP) Pulse Ox O2 Delivery O2 Flow Rate FiO2 11/12/18 07:25 100 Nasal Cannula 3.0 11/12/18 03:00 98.0 61 18 125/57 (79) 98.0 ROS: No Nausea, No Chest Pain, No Abdominal Pain, No Increase Cough General: Alert, No acute distress HEENT: Other (nc at perrl) Lungs: Crackles, Other (DECREASE BS IN BASE, r ct) Cardiovascular: S1, S2 Abdomen: Soft, Non-tender Neuro Exam: Alert Extremities: Other (EDEMA) Skin: Warm Labs Laboratory Tests Test 11/10/18 11:28 11/10/18 16:28 11/10/18 20:31 11/11/18 05:00 Glucose (Fingerstick) 118 mg/dL (70-99) 194 mg/dL (70-99) 353 mg/dL (70-99) Random Vancomycin Level 15.6 mcg/mL Test 11/11/18 07:26 11/11/18 11:10 11/11/18 17:01 11/11/18 20:49 Glucose (Fingerstick) 510 mg/dL (70-99) 260 mg/dL (70-99) 138 mg/dL (70-99) 297 mg/dL (70-99) Laboratory Tests Test 11/11/18 11:10 11/11/18 17:01 11/11/18 20:49 Glucose (Fingerstick) 260 mg/dL (70-99) 138 mg/dL (70-99) 297 mg/dL (70-99) Medications Active Scripts Medications Dose Route/Sig Max Daily Dose Days Date Category [place] 3 Fish Oil Softgel ([place]-3 Fatty Acids/Fish Oil) 1 Each Capsule.dr 1 Each PO DAILY 11/07/18 Reported Toprol Xl (Metoprolol Succinate) 25 Mg Tab.er.24h 0.5 Tab PO DAILY 11/07/18 Reported Lasix (Furosemide) 80 Mg Tablet 80 Mg PO DAILY 11/07/18 Reported Calcium Acetate 667 Mg Tablet 667 Mg PO TIDWMEALS 11/07/18 Reported Hydralazine Hcl 10 Mg Tablet 10 Mg PO TID MDD 1 10/04/18 Rx Amlodipine Besylate 10 Mg Tablet 10 Mg PO DAILY MDD 1 10/04/18 Rx Lisinopril 40 Mg Tablet 20 Mg PO DAILY MDD 1 10/04/18 Rx Tylenol (Acetaminophen) 325 Mg Tablet 650 Mg PO PRN Q6HRS 10/02/18 Reported Humalog (Insulin Lispro) 100 Unit/1 Ml Cartridge 6 Unit SQ TIDBFRMEAL 10/02/18 Reported Ferrous Sulfate 325 Mg Tablet 1 Tab PO DAILY 09/15/18 Reported Levothyroxine Sodium 175 Mcg Tablet 1 Tab PO DAILY 09/15/18 Reported Reglan (Metoclopramide Hcl) 10 Mg Tablet 5 Mg PO BIDAC 09/15/18 Reported [Pantoprazole] 40 MG Tablet.dr 40 Mg PO DAILYAC 30 09/09/18 Rx Trazodone Hcl 100 Mg Tablet 100 Mg PO PRN QHS PRN 30 09/09/18 Rx Lantus Solostar (Insulin Glargine,Hum.rec.anlog) 100 Unit/1 Ml Insuln.pen 15 Units SQ QHS 30 09/09/18 Rx Budesonide 0.5 Mg/2 Ml Ampul.neb 0.5 Mg NEB RTBID 30 08/29/18 Rx Aspirin 81 Mg Tab.chew 81 Mg PO DAILYWBKFT 30 08/29/18 Rx Carvedilol (Carvedilol) 3.125 Mg Tablet 3.125 Mg PO BIDWMEALS 30 08/29/18 Rx Duoneb 0.5-3(2.5) Mg/3 Ml (Albuterol/Ipratropium) 3 Ml Ampul.neb 3 Ml NEB RTQID 30 08/29/18 Rx Brilinta (Ticagrelor) 90 Mg Tablet 90 Mg PO BID 30 08/29/18 Rx Vitamin D2 (Ergocalciferol (Vitamin D2)) 50,000 Unit Capsule 50,000 Unit PO WEEKLY 04/02/18 Rx Dialyvite Tablet (Folic Acid/Vitamin B Comp W-C) 1 Each Tablet 1 Each PO 03/28/18 Reported Impression . IMPRESSION: 1. Acute on chronic hypoxemic respiratory failure. 2. Bilateral pleural effusions, left greater than right. 3. End-stage renal disease, noncompliant with hemodialysis. 4. Hypertension. 5. Chronic obstructive pulmonary disease. 6. Tobacco dependent. 7. Coronary artery disease with previous stent placement. 11/09 Impression: Right-sided thoracostomy tube placement. 2.1 L serosanguineous fluid removed. Plan . CONTINUE CHEST TUBE, suction -20, cxr in am FOLLOW UP ON ANALYSIS, exudate CYTOLOGY pending BD, ICS HD per nephro discussed WITH AND PT and rn BRYAN NICOLE MD Nov 12, 2018 07:51
[2018-11-12] MEDS: CALCIUM ACETATE 667 MG CAPSULE PO SCH ×3 (08:00→17:14)
[2018-11-12] MEDS: HYDROcodone/APAP 5/325MG 1 TAB TABLET PO PRN ×3 (08:01→21:52)
[2018-11-12] MEDS: INSULIN LISPRO 300 UNITS/3 ML INSULN.PEN. SQ SCH ×4 (08:03→21:45)
[2018-11-12] MEDS: TICAGRELOR 90 MG TABLET. PO SCH ×2 (08:49→21:41)
[2018-11-12] MEDS: OMEGA-3 FATTY ACIDS/FISH OIL 1,000 MG CAPSULE. PO SCH (08:49)
[2018-11-12] MEDS: LACTOBACILLUS RHAMNOSUS GG 1 CAPSULE. PO SCH ×2 (08:50→21:41)
[2018-11-12] MEDS: ASPIRIN CHEWABLE 81 MG TABLET. PO SCH (08:50)
[2018-11-12] MEDS: FERROUS SULFATE 325 MG TABLET. PO SCH (08:50)
[2018-11-12] MEDS: hydrALAZINE 10 MG TABLET PO SCH ×3 (08:50→21:42)
[2018-11-12] MEDS: FUROSEMIDE 80 MG TABLET. PO SCH (08:51)
[2018-11-12] MEDS: amLODIPine BESYLATE 10 MG TABLET PO SCH (08:51)
[2018-11-12] MEDS: METOPROLOL SUCC 24HR ER 25 MG TAB.ER.24H. PO SCH (08:51)
[2018-11-12] MEDS: LISINOPRIL 20 MG TABLET PO SCH (08:52)
--- NOTE | 2018-11-12 09:46 | PDOC ---
Renal-Progress Notes Subjective Notes Notes NONE History of Present Illness Hx of present illness STABLE Vitals Vitals Vital Signs Date Time Temp Pulse Resp B/P (MAP) Pulse Ox O2 Delivery O2 Flow Rate FiO2 11/12/18 08:52 72 132/69 11/12/18 08:01 18 Nasal Cannula 2.0 11/12/18 07:25 100 11/12/18 07:00 97.6 97.6 Weight Weight [ ] I.O. Intake and Output Intake and Output 11/12/18 07:00 Intake Total 820 ml Output Total 615 ml Balance 205 ml Intake Oral 720 ml IV Total 100 ml Output Urine Total 125 ml Chest Tube Drainage Total 490 ml Labs Labs Laboratory Tests Test 11/11/18 11:10 11/11/18 17:01 11/11/18 20:49 11/12/18 07:46 Glucose (Fingerstick) 260 mg/dL (70-99) 138 mg/dL (70-99) 297 mg/dL (70-99) 233 mg/dL (70-99) Micro Micro Microbiology 11/09/18 Blood Culture - Preliminary, Resulted NO GROWTH AFTER 2 DAYS 11/09/18 Anaerobic/Aerobic Culture, Resulted Pending 11/09/18 Anaerobic Culture Result 1 (TERENCE), Resulted Pending 11/09/18 Aerobic Culture - Preliminary, Resulted 11/09/18 Aerobic Culture Result 1 (TERENCE) - Preliminary, Resulted 11/09/18 Gram Stain - Final, Resulted 11/09/18 Gram Stain Result 1 (TERENCE) - Final, Resulted 11/09/18 Gram Stain Result 2 (TERENCE) - Final, Resulted Review of Systems Constitutional: yes: alert, oriented Ears/Nose/Throat: Yes: no symptom reported Eyes: Yes: no symptom reported Pulmonary: Yes dyspnea Cardiovascular: Yes no symptom reported Gastrointestional: Yes: no symptom reported Genitourinary: Yes: no symptom reported Musculoskeletal: Yes: no symptom reported Skin: Yes no symptom reported Psychiatric/Neurological: Yes: no symptom reported Endocrine: Yes: no symptom reported Physical Exam General Appearance: no apparent distress Skin: warm Respiratory: decreased breath sounds Heart: S1S2 Abdomen: soft, bowel sounds present Genitourinary: bladder flat Extremities: pulses present Neurology: alert Assessment Assessment IMP PL EFFUSION ANEMIA NON COMPLIANCE DM II HTN ESRD PLAN HD TOMORROW CHEST TUBE ENC COMPLIANCE CONT FABIAN LAM ATKINS MD Nov 12, 2018 09:46
--- NOTE | 2018-11-12 10:36 | PDOC ---
Infectious Disease Note Subjective Subjective Comfortable No complaints/concerns voiced No fevers Vital Sign Vital Signs Vital Signs Date Time Temp Pulse Resp B/P (MAP) Pulse Ox O2 Delivery O2 Flow Rate FiO2 11/12/18 09:01 18 Room Air 11/12/18 08:52 72 132/69 11/12/18 08:01 2.0 11/12/18 07:25 100 11/12/18 07:00 97.6 97.6 Physical Exam PHYSICAL EXAM GENERAL: Resting quietly HEENT: Oral cavity clear NECK: Supple. LUNGS: Decreased breath sounds at the bases, + crackles. Right CT intact HEART: S1, S2. ABDOMEN: Soft, nontender. EXTREMITIES: No edema. SKIN: Warm, dry. No generalized rash. 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 Mild improvement in right pleural effusion. 2. Little other change. Micro 11/09/18 Blood Culture - Preliminary, Resulted NO GROWTH AFTER 2 DAYS ANAEROBIC-AEROBIC CULTURE PENDING ANAEROBIC RES 1 PENDING AEROBIC CULT Preliminary Preliminary report AEROBIC RES 1 Preliminary Comment No growth in 36 - 48 hours. GRAM STAIN Final Final report GRAM STAIN RES 1 Final Comment Few white blood cells. GRAM STAIN RES 2 Final No organisms seen Objective Assessment Recurrent bilateral pleural effusion Rt > LT S/P thoracocentesis and Right CT placement. Cx NGTD ESRD Abn CT Chest CAD s/p stent Tobaccoism Plan Plan of Care cont vanc and Zosyn renal dosing Trough 15.6 f/u cultures Probiotics cont supportive care Patient seen and examined. Chart reviewed in detail. Case discussed with SENIOR STACK ENGINEER. Agree with above plan. TALISHA DEUTSCH APRN Nov 12, 2018 10:36 NIKKIE ACOSTA MD Nov 12, 2018 20:08
--- NOTE | 2018-11-12 11:16 | PDOC ---
PROGRESS NOTES Chief Complaint Chief Complaint hypoxia, large right pleural effusion ESRD, on HD Tuesday Anemia of ESRD Hypertension, controlled Diabetes- poorly controlled History of cardiac stents-chronic stable tobaccoism Assessment/Plan Assessment/Plan IMPRESSION: on ct today 1. Large right pleural effusion, [id number] left pleural effusion. 2. Bilateral gynecomastia 3. Small right axillary and mediastinal lymph nodes 4. Development of swelling and fatty stranding within the right axilla and adjacent chest, suspicious for edema or inflammation. 5. Extensive consolidation/collapse of the right lung with a small remaining area of aerated right upper lobe. possible mucous plugging 6. Development of an area of patchy sclerosis and lucency at the sternum with an anterior cortical defect. Possibilities include nonacute fracture or osteomyelitis, depending on clinical findings. Bone scan could be of benefit ESRD Tuesday on dialysis Anemia of ESRD Hypertension, controlled Diabetes-controlled History of cardiac stents-chronic stable PLAN: D/W DR Guzman by phone this AM, concern for mucous plugging id consult IR for thoracentesis 11/08 pulmonary following sliding scale insulin home meds discussed my plan of care in room ct reviewed Counseling against smoking Nicotine patch prn nephrology for dialysis iv zosyn and vanc per pharmacy blood cult x 1 mrsa nasal screen chest tube needed due to right lung collapse History of Present Illness History of Present Illness chest tube today s/p thoracentesis 11/08, chest tube sliding scale insulin home meds, they wanted his lipitor restarted, Vitals Vitals Vital Signs Date Time Temp Pulse Resp B/P (MAP) Pulse Ox O2 Delivery O2 Flow Rate FiO2 11/12/18 11:05 95 Nasal Cannula 3.0 11/12/18 09:01 18 11/12/18 08:52 72 132/69 11/12/18 07:00 97.6 97.6 Physical Exam Physical Exam GENERAL: Resting quietly HEENT: Oral cavity clear NECK: Supple. LUNGS: Decreased breath sounds at the bases, + crackles. Right CT intact HEART: S1, S2. ABDOMEN: Soft, nontender. EXTREMITIES: No edema. SKIN: Warm, dry. No generalized rash. 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 Labs Laboratory Tests Test 11/10/18 11:28 11/10/18 16:28 11/10/18 20:31 11/11/18 05:00 Glucose (Fingerstick) 118 mg/dL (70-99) 194 mg/dL (70-99) 353 mg/dL (70-99) Random Vancomycin Level 15.6 mcg/mL Test 11/11/18 07:26 11/11/18 11:10 11/11/18 17:01 11/11/18 20:49 Glucose (Fingerstick) 510 mg/dL (70-99) 260 mg/dL (70-99) 138 mg/dL (70-99) 297 mg/dL (70-99) Test 11/12/18 07:46 Glucose (Fingerstick) 233 mg/dL (70-99) Laboratory Tests Test 11/11/18 17:01 11/11/18 20:49 11/12/18 07:46 Glucose (Fingerstick) 138 mg/dL (70-99) 297 mg/dL (70-99) 233 mg/dL (70-99) Microbiology 11/09/18 Blood Culture - Preliminary, Resulted NO GROWTH AFTER 2 DAYS 11/09/18 Anaerobic/Aerobic Culture, Resulted Pending 11/09/18 Anaerobic Culture Result 1 (TERENCE), Resulted Pending 11/09/18 Aerobic Culture - Preliminary, Resulted 11/09/18 Aerobic Culture Result 1 (TERENCE) - Preliminary, Resulted 11/09/18 Gram Stain - Final, Resulted 11/09/18 Gram Stain Result 1 (TERENCE) - Final, Resulted 11/09/18 Gram Stain Result 2 (TERENCE) - Final, Resulted Medications Current Medications Dextrose (Dextrose 50%-Water Syringe) 12.5 gm PRN Q15MIN PRN IV SEE COMMENTS; Start 11/07/18 at 03:30; Stop 11/07/18 at 07:42; Status DC Albuterol/ Ipratropium (Duoneb) 3 ml RTQID NEB Last administered on 11/12/18at 11:05; Start 11/07/18 at 08:00 Albuterol/ Ipratropium (Duoneb) 3 ml 1X ONCE NEB Last administered on at 05:50; Start 11/07/18 at 05:45; Stop 11/07/18 at 05:46; Status DC Albuterol Sulfate (Ventolin Neb Soln) 2.5 mg PRN Q4HRS PRN NEB SHORTNESS OF BREATH; Start 11/07/18 at 05:45 Furosemide (Lasix) 40 mg 1X ONCE IVP Last administered on 11/07/18at 05:49; Start 11/07/18 at 05:45; Stop 11/07/18 at 05:46; Status DC Insulin Human Lispro (HumaLOG) 20 units 1X ONCE SQ Last administered on at 07:58; Start 11/07/18 at 07:45; Stop 11/07/18 at 07:46; Status DC Insulin Human Lispro (HumaLOG) 0-7 UNITS TIDWMEALS SQ ; Start 11/07/18 at 12:00 ; Stop 11/07/18 at 12:00; Status DC Dextrose (Dextrose 50%-Water Syringe) 12.5 gm PRN Q15MIN PRN IV SEE COMMENTS; Start 11/07/18 at 07:45; Stop 11/07/18 at 09:06; Status DC Insulin Human Lispro (HumaLOG) 0-9 UNITS TIDWMEALS SQ Last administered on 11/09at 17:23; Start 11/07/18 at 09:30; Stop 11/09/18 at 22:40; Status DC Dextrose (Dextrose 50%-Water Syringe) 12.5 gm PRN Q15MIN PRN IV SEE COMMENTS; Start 11/07/18 at 09:15 Labetalol HCl (Normodyne Iv Push) 20 mg PRN Q2HR PRN IVP HYPERTENSION, SEE COMMENTS; Start 11/07/18 at 09:15 Acetaminophen (Tylenol) 650 mg PRN Q6HRS PRN PO MILD PAIN / TEMP; Start at 09:15 Amlodipine Besylate (Norvasc) 10 mg DAILY PO Last administered on 11/12/18 08: 51; Start 11/07/18 at 10:00 Aspirin (Children'S Aspirin) 81 mg DAILYWBKFT PO Last administered on 08:50; Start 11/07/18 at 10:00 Budesonide (Pulmicort) 0.5 mg RTBID NEB Last administered on 11/12/18 07:24; Start 11/07/18 at 10:00 Carvedilol (Coreg) 3.125 mg BIDWMEALS PO ; Start 11/07/18 at 10:00; Status Cancel Ergocalciferol (Vitamin D2) 50,000 unit WEEKLY PO ; Start 11/14/18 at 09:00 Ferrous Sulfate (Feosol) 325 mg DAILY PO Last administered on 11/12/18 08:50; Start 11/07/18 at 10:00 Furosemide (Lasix) 80 mg DAILY PO Last administered on 11/12/18 08:51; Start 11/07/18 at 10:00 Insulin Glargine (Lantus) 15 units QHS SQ Last administered on 11/11/18 21:19 ; Start 11/07/18 at 21:00 Levothyroxine Sodium (Synthroid) 175 mcg DAILY06 PO Last administered on 06:27; Start 11/07/18 at 10:00 Lisinopril (Prinivil) 20 mg DAILY PO Last administered on 11/12/18 08:52; Start 11/07/18 at 10:00 Metoclopramide HCl (Reglan) 5 mg BIDAC PO Last administered on 11/12/18 07:29 ; Start 11/07/18 at 10:00 Metoprolol Succinate (Toprol Xl) 12.5 mg DAILY PO Last administered on 08:51; Start 11/07/18 at 10:00 Ticagrelor (Brilinta) 90 mg BID PO Last administered on 11/12/18 08:49; Start 11/07/18 at 10:00 Trazodone HCl (Desyrel) 100 mg PRN QHS PRN PO INSOMNIA Last administered on 09/13at 22:10; Start 11/07/18 at 09:15 Calcium Acetate (Phoslo) 667 mg TIDWMEALS PO Last administered on 11/12/18at 08: 00; Start 11/07/18 at 12:00 Hydralazine HCl (Apresoline) 10 mg TID PO Last administered on 11/12/18at 08:50 ; Start 11/07/18 at 14:00 Insulin Human Lispro (HumaLOG) 6 units TIDWMEALS SQ Last administered on at 11:45; Start 11/07/18 at 09:30; Stop 11/07/18 at 16:01; Status DC Fish Oil (Fish Oil) 1,000 mg DAILY PO Last administered on 11/12/18at 08:49; Start 11/07/18 at 10:00 Pantoprazole Sodium (Protonix) 40 mg DAILYAC PO Last administered on 11/12/18at 07:33; Start 11/07/18 at 10:00 Acetaminophen/ Hydrocodone Bitart (Lortab 5/325) 1 tab PRN Q4HRS PRN PO MODERATE - SEVERE PAIN Last administered on 11/12/18at 08:01; Start 11/07/18 at 09:15 Nicotine (Nicoderm Cq 21mg) 1 patch PRN DAILY PRN TD SMOKING CESSATION; Start 11/07/18 at 11:15 Dextrose (Dextrose 50%-Water Syringe) 25 gm STK-MED ONCE IV ; Start 11/07/18 at 15:09; Stop 11/07/18 at 15:10; Status DC Sodium Chloride 1,000 ml @ 1,000 mls/hr Q1H PRN IV hypotension; Start 11/07/18 at 16:10; Stop 11/07/18 at 22:09; Status DC Info (PHARMACY MONITORING -- do not chart) 1 each PRN DAILY PRN MC SEE COMMENTS ; Start 11/07/18 at 16:15; Status UNV Info (PHARMACY MONITORING -- do not chart) 1 each PRN DAILY PRN MC SEE COMMENTS ; Start 11/07/18 at 16:15; Stop 11/09/18 at 12:04; Status DC Sodium Chloride 1,000 ml @ 1,000 mls/hr Q1H PRN IV hypotension; Start 11/08/18 at 14:23; Stop 11/08/18 at 20:22; Status DC Sodium Chloride 1,000 ml @ 400 mls/hr Q2H30M PRN IV PATENCY; Start 11/08/18 at 14:23; Stop 11/09/18 at 02:22; Status DC Info (PHARMACY MONITORING -- do not chart) 1 each PRN DAILY PRN MC SEE COMMENTS ; Start 11/08/18 at 14:30 Iohexol (Omnipaque 300 Mg/ml) 75 ml 1X ONCE IV Last administered on 11/09/18at 07:40; Start 11/09/18 at 07:00; Stop 11/09/18 at 07:01; Status DC Piperacillin Sod/ Tazobactam Sod (Zosyn Per Pharmacy) 1 each PRN DAILY PRN MC SEE COMMENTS; Start 11/09/18 at 12:00 Vancomycin HCl (Vanco Per Pharmacy) 1 each PRN DAILY PRN MC SEE COMMENTS Last administered on 11/11/18at 08:10; Start 11/09/18 at 12:00 Piperacillin Sod/ Tazobactam Sod 2.25 gm/Sodium Chloride 50 ml @ 100 mls/hr Q8HRS IV Last administered on 11/12/18at 06:27; Start 11/09/18 at 13:00 Vancomycin HCl 2 gm/Sodium Chloride 500 ml @ 250 mls/hr 1X ONCE IV Last administered on 11/09/18at 13:00; Start 11/09/18 at 13:00; Stop 11/09/18 at 14:59 ; Status DC Fentanyl Citrate (Fentanyl 2ml Vial) 100 mcg STK-MED ONCE .ROUTE ; Start at 13:54; Stop 11/09/18 at 13:55; Status DC Fentanyl Citrate (Fentanyl 2ml Vial) 100 mcg 1X ONCE IV Last administered on at 14:15; Start 11/09/18 at 14:15; Stop 11/09/18 at 14:16; Status DC Hydralazine HCl (Apresoline) 10 mg STK-MED ONCE .ROUTE ; Start 11/07/18 at 09:00 ; Stop 11/09/18 at 15:36; Status DC Hydralazine HCl (Apresoline) 10 mg STK-MED ONCE .ROUTE ; Start 11/07/18 at 09:00 ; Stop 11/09/18 at 15:36; Status DC Hydralazine HCl (Apresoline) 10 mg STK-MED ONCE .ROUTE ; Start 11/08/18 at 09:00 ; Stop 11/09/18 at 15:37; Status DC Hydralazine HCl (Apresoline) 10 mg STK-MED ONCE .ROUTE ; Start 11/09/18 at 09:00 ; Stop 11/09/18 at 15:37; Status DC Hydralazine HCl (Apresoline) 10 mg STK-MED ONCE .ROUTE ; Start 11/09/18 at 09:00 ; Stop 11/09/18 at 15:37; Status DC Lactobacillus Rhamnosus (Culturelle) 1 cap BID PO Last administered on at 08:50; Start 11/09/18 at 21:00 Vancomycin HCl (Vancomycin Random Level) 1 each 1X ONCE MC ; Start 11/11/18 at 06:00; Stop 11/11/18 at 06:01; Status DC Insulin Human Lispro (HumaLOG) 0-9 UNITS QIDACHS SQ Last administered on at 08:03; Start 11/09/18 at 23:00 Insulin Human Lispro (HumaLOG) 20 units PRN QHS PRN SQ SEE COMMENTS Last administered on 11/11/18at 08:19; Start 11/09/18 at 22:30 Sodium Chloride 1,000 ml @ 1,000 mls/hr Q1H PRN IV hypotension; Start 11/10/18 at 11:47; Stop 11/10/18 at 17:46; Status DC Sodium Chloride 1,000 ml @ 400 mls/hr Q2H30M PRN IV PATENCY; Start 11/10/18 at 11:47; Stop 11/10/18 at 23:46; Status DC Info (PHARMACY MONITORING -- do not chart) 1 each PRN DAILY PRN MC SEE COMMENTS ; Start 11/10/18 at 12:00; Status UNV Insulin Human Lispro (HumaLOG) 20 units 1X ONCE SQ Last administered on at 08:28; Start 11/11/18 at 08:15; Stop 11/11/18 at 08:16; Status DC Simvastatin (Zocor) 20 mg HS PO Last administered on 11/11/18at 21:17; Start at 21:00 Active Scripts Active Hydralazine Hcl 10 Mg Tablet 10 Mg PO TID MDD 1 Amlodipine Besylate 10 Mg Tablet 10 Mg PO DAILY MDD 1 Lisinopril 40 Mg Tablet 20 Mg PO DAILY MDD 1 [Pantoprazole] 40 MG Tablet.dr 40 Mg PO DAILYAC 30 Days Trazodone Hcl 100 Mg Tablet 100 Mg PO PRN QHS PRN 30 Days Lantus Solostar (Insulin Glargine,Hum.rec.anlog) 100 Unit/1 Ml Insuln.pen 15 Units SQ QHS 30 Days Budesonide 0.5 Mg/2 Ml Ampul.neb 0.5 Mg NEB RTBID 30 Days Aspirin 81 Mg Tab.chew 81 Mg PO DAILYWBKFT 30 Days Carvedilol (Carvedilol) 3.125 Mg Tablet 3.125 Mg PO BIDWMEALS 30 Days Duoneb 0.5-3(2.5) Mg/3 Ml (Albuterol/Ipratropium) 3 Ml Ampul.neb 3 Ml NEB RTQID 30 Days Brilinta (Ticagrelor) 90 Mg Tablet 90 Mg PO BID 30 Days Vitamin D2 (Ergocalciferol (Vitamin D2)) 50,000 Unit Capsule 50,000 Unit PO WEEKLY Reported Crete 3 Fish Oil Softgel (Crete-3 Fatty Acids/Fish Oil) 1 Each Capsule.dr 1 Each PO DAILY Toprol Xl (Metoprolol Succinate) 25 Mg Tab.er.24h 0.5 Tab PO DAILY Lasix (Furosemide) 80 Mg Tablet 80 Mg PO DAILY Calcium Acetate 667 Mg Tablet 667 Mg PO TIDWMEALS Tylenol (Acetaminophen) 325 Mg Tablet 650 Mg PO PRN Q6HRS Humalog (Insulin Lispro) 100 Unit/1 Ml Cartridge 6 Unit SQ TIDBFRMEAL Ferrous Sulfate 325 Mg Tablet 1 Tab PO DAILY Levothyroxine Sodium 175 Mcg Tablet 1 Tab PO DAILY Reglan (Metoclopramide Hcl) 10 Mg Tablet 5 Mg PO BIDAC Dialyvite Tablet (Folic Acid/Vitamin B Comp W-C) 1 Each Tablet 1 Each PO Vitals/I & O Vital Sign - Last 24 Hours 11/11/18 11/11/18 11/11/18 11/11/18 13:10 14:11 15:00 16:00 Temp 98.0 98.0 Pulse 70 70 Resp 18 B/P (MAP) 125/55 128/53 (78) Pulse Ox 99 98 O2 Delivery Nasal Cannula Nasal Cannula Nasal Cannula O2 Flow Rate 3.0 3.0 3.0 11/11/18 11/11/18 11/11/18 11/11/18 17:10 19:00 19:49 20:00 Temp 97.7 97.7 Pulse 73 Resp 18 18 B/P (MAP) 143/59 (87) Pulse Ox 99 100 O2 Delivery Nasal Cannula Nasal Cannula Nasal Cannula Room Air O2 Flow Rate 3.0 3.0 3.0 3.0 11/11/18 11/11/18 11/12/18 11/12/18 21:18 23:00 03:00 07:00 Temp 98.0 97.6 98.0 97.6 Pulse 73 75 61 72 Resp 18 18 20 B/P (MAP) 143/59 135/56 (82) 125/57 (79) 132/69 (90) Pulse Ox 97 99 96 O2 Delivery Nasal Cannula Nasal Cannula Nasal Cannula O2 Flow Rate 3.0 3.0 2.0 11/12/18 11/12/18 11/12/18 11/12/18 07:25 08:01 08:50 08:51 Pulse 72 72 Resp 18 B/P (MAP) 132/69 132/69 Pulse Ox 100 O2 Delivery Nasal Cannula Nasal Cannula O2 Flow Rate 3.0 2.0 11/12/18 11/12/18 11/12/18 11/12/18 08:51 08:52 09:01 11:05 Pulse 72 72 Resp 18 B/P (MAP) 132/69 132/69 Pulse Ox 95 O2 Delivery Room Air Nasal Cannula O2 Flow Rate 3.0 Intake and Output 11/11/18 11/11/18 11/12/18 14:59 22:59 06:59 Intake Total 530 ml 240 ml 50 ml Output Total 450 ml 165 ml Balance 530 ml -210 ml -115 ml PABLO SHERMAN MD Nov 12, 2018 11:16
[2018-11-12 11:45] VITALS: BP 147/64
[2018-11-12] MEDS: VANCOMYCIN PER PHARMACY MC PRN (13:09)
[2018-11-12 14:30] VITALS: BP 109/51
[2018-11-12 19:00] VITALS: BP 138/61
[2018-11-12] MEDS: SIMVASTATIN 20 MG TABLET PO SCH (21:41)
[2018-11-12] MEDS: INSULIN GLARGINE 300 UNITS/3 ML INSULN.PEN. SQ SCH (21:44)
[2018-11-12 22:48] VITALS: BP 124/48
[2018-11-13 03:00] VITALS: BP 130/57
[2018-11-13] MEDS ORDERED: VANCOMYCIN RANDOM LEVEL. MC ONE (05:00)
[2018-11-13] MEDS: LEVOTHYROXINE 175 MCG TABLET PO SCH (05:16)
[2018-11-13] MEDS: PIPERACILLIN/TAZOBACTAM 2.25 GM in IV NORMAL SALINE 50ML 50 ML IV SCH ×3 (05:16→21:55)
[2018-11-13] MEDS: HYDROcodone/APAP 5/325MG 1 TAB TABLET PO PRN ×4 (05:17→21:32)
[2018-11-13 07:00] VITALS: BP 129/59
[2018-11-13] MEDS: INSULIN LISPRO 300 UNITS/3 ML INSULN.PEN. SQ SCH ×4 (07:30→21:49)
[2018-11-13 07:49] LABS: HEMATOCRIT 25.9 % (39.0-53.0); HEMOGLOBIN 8.3 g/dL (13.0-17.5); RED BLOOD COUNT 2.97 x10^6/uL (4.30-5.70); RED CELL DISTRIBUTION WIDTH 17.1 % (11.5-14.5); WHITE BLOOD COUNT 6.7 x10^3/uL (4.0-11.0)
[2018-11-13] MEDS: IPRATRPIUM/ALBUTEROL 0.5/2.5MG 3 ML NEBU. NEB SCH ×4 (07:54→19:29)
[2018-11-13] MEDS: BUDESONIDE 0.5 MG/2 ML NEBU. NEB SCH ×2 (07:54→19:29)
[2018-11-13 08:03] LABS: CALCIUM 8.4 mg/dL (8.5-10.1); CREATININE 7.8 mg/dL (0.7-1.3); GFR 7.2; POTASSIUM 5.3 mmol/L (3.5-5.1)
[2018-11-13] MEDS: LISINOPRIL 20 MG TABLET PO SCH (09:00)
--- NOTE | 2018-11-13 09:55 | PDOC ---
Infectious Disease Note Subjective Subjective Comfortable No complaints/concerns voiced No fevers Breathing well ROS ROS o/w neg Vital Sign Vital Signs Vital Signs Date Time Temp Pulse Resp B/P (MAP) Pulse Ox O2 Delivery O2 Flow Rate FiO2 11/13/18 09:30 Room Air 11/13/18 07:55 94 11/13/18 07:00 97.8 61 18 129/59 (82) 2.0 97.8 Physical Exam PHYSICAL EXAM GENERAL: In chair. NAD and coop HEENT: Oral cavity clear NECK: Supple. LUNGS: Decreased breath sounds at the bases, + crackles. Right CT intact HEART: S1, S2. ABDOMEN: Soft, nontender. EXTREMITIES: No edema. RUE fistula SKIN: Warm, dry. No generalized rash. 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, responds appropriately Labs Lab Laboratory Tests Test 11/12/18 11:27 11/12/18 16:43 11/12/18 20:41 11/13/18 06:45 Glucose (Fingerstick) 175 mg/dL (70-99) 129 mg/dL (70-99) 302 mg/dL (70-99) White Blood Count 6.7 x10^3/uL (4.0-11.0) Red Blood Count 2.97 x10^6/uL (4.30-5.70) Hemoglobin 8.3 g/dL (13.0-17.5) Hematocrit 25.9 % (39.0-53.0) Mean Corpuscular Volume 87 fL (79-100) Mean Corpuscular Hemoglobin 28 pg (25-35) Mean Corpuscular Hemoglobin Concent 32 g/dL (31-37) Red Cell Distribution Width 17.1 % (11.5-14.5) Platelet Count 215 x10^3/uL (140-400) Sodium Level 135 mmol/L (136-145) Potassium Level 5.3 mmol/L (3.5-5.1) Chloride Level 97 mmol/L (98-107) Carbon Dioxide Level 26 mmol/L (21-32) Anion Gap 12 (6-14) Blood Urea Nitrogen 80 mg/dL (8-26) Creatinine 7.8 mg/dL (0.7-1.3) Estimated GFR (Cockcroft-Gault) 7.2 Glucose Level 235 mg/dL (70-99) Calcium Level 8.4 mg/dL (8.5-10.1) Random Vancomycin Level 14.9 mcg/mL Test 11/13/18 07:24 Glucose (Fingerstick) 211 mg/dL (70-99) Micro Microbiology 11/09/18 Blood Culture - Preliminary, Resulted NO GROWTH AFTER 3 DAYS 11/09/18 Anaerobic/Aerobic Culture, Resulted Pending 11/09/18 Anaerobic Culture Result 1 (TERENCE), Resulted Pending 11/09/18 Aerobic Culture - Final, Resulted 11/09/18 Aerobic Culture Result 1 (TERENCE) - Final, Resulted 11/09/18 Gram Stain - Final, Resulted 11/09/18 Gram Stain Result 1 (TERENCE) - Final, Resulted 11/09/18 Gram Stain Result 2 (TERENCE) - Final, Resulted Objective Assessment Recurrent bilateral pleural effusion Rt > LT S/P thoracocentesis and Right CT placement. Cx NGTD 11/09 - ? transudative ESRD Abn CT Chest CAD s/p stent Tobaccoism Plan Plan of Care cont vanc and Zosyn renal dosing for now to po soon if cults neg Await Pulm F/u ? need for TPA Trough 15.6 f/u cultures Probiotics cont supportive care D/w mother SHAHEEN LAZO MD Nov 13, 2018 09:55
[2018-11-13 10:45] VITALS: BP 127/63
[2018-11-13] MEDS ORDERED: IV NORMAL SALINE 1000ML BAG 1,000 ML IV PRN ×2 (11:00)
[2018-11-13] MEDS ORDERED: DIALYSIS PATIENT. MC PRN ×2 (11:15)
--- NOTE | 2018-11-13 11:17 | PDOC ---
PULMONARY PROGRESS NOTES Subjective ct in, sob better, has occ cough, NO SIG DRAINAGE Vitals Vital Signs Date Time Temp Pulse Resp B/P (MAP) Pulse Ox O2 Delivery O2 Flow Rate FiO2 11/13/18 10:45 97.8 63 18 127/63 (84) 99 Nasal Cannula 2.0 97.8 ROS: No Nausea, No Chest Pain, No Abdominal Pain, No Increase Cough General: Alert, No acute distress HEENT: Other (nc at perrl) Lungs: Other (DECREASE BS IN BASE, r ct) Cardiovascular: S1, S2 Abdomen: Soft, Non-tender Neuro Exam: Alert Extremities: Other (EDEMA) Skin: Warm Labs Laboratory Tests Test 11/11/18 17:01 11/11/18 20:49 11/12/18 07:46 11/12/18 11:27 Glucose (Fingerstick) 138 mg/dL (70-99) 297 mg/dL (70-99) 233 mg/dL (70-99) 175 mg/dL (70-99) Test 11/12/18 16:43 11/12/18 20:41 11/13/18 06:45 11/13/18 07:24 Glucose (Fingerstick) 129 mg/dL (70-99) 302 mg/dL (70-99) 211 mg/dL (70-99) White Blood Count 6.7 x10^3/uL (4.0-11.0) Red Blood Count 2.97 x10^6/uL (4.30-5.70) Hemoglobin 8.3 g/dL (13.0-17.5) Hematocrit 25.9 % (39.0-53.0) Mean Corpuscular Volume 87 fL (79-100) Mean Corpuscular Hemoglobin 28 pg (25-35) Mean Corpuscular Hemoglobin Concent 32 g/dL (31-37) Red Cell Distribution Width 17.1 % (11.5-14.5) Platelet Count 215 x10^3/uL (140-400) Sodium Level 135 mmol/L (136-145) Potassium Level 5.3 mmol/L (3.5-5.1) Chloride Level 97 mmol/L (98-107) Carbon Dioxide Level 26 mmol/L (21-32) Anion Gap 12 (6-14) Blood Urea Nitrogen 80 mg/dL (8-26) Creatinine 7.8 mg/dL (0.7-1.3) Estimated GFR (Cockcroft-Gault) 7.2 Glucose Level 235 mg/dL (70-99) Calcium Level 8.4 mg/dL (8.5-10.1) Random Vancomycin Level 14.9 mcg/mL Laboratory Tests Test 11/12/18 11:27 11/12/18 16:43 11/12/18 20:41 11/13/18 06:45 Glucose (Fingerstick) 175 mg/dL (70-99) 129 mg/dL (70-99) 302 mg/dL (70-99) White Blood Count 6.7 x10^3/uL (4.0-11.0) Red Blood Count 2.97 x10^6/uL (4.30-5.70) Hemoglobin 8.3 g/dL (13.0-17.5) Hematocrit 25.9 % (39.0-53.0) Mean Corpuscular Volume 87 fL (79-100) Mean Corpuscular Hemoglobin 28 pg (25-35) Mean Corpuscular Hemoglobin Concent 32 g/dL (31-37) Red Cell Distribution Width 17.1 % (11.5-14.5) Platelet Count 215 x10^3/uL (140-400) Sodium Level 135 mmol/L (136-145) Potassium Level 5.3 mmol/L (3.5-5.1) Chloride Level 97 mmol/L (98-107) Carbon Dioxide Level 26 mmol/L (21-32) Anion Gap 12 (6-14) Blood Urea Nitrogen 80 mg/dL (8-26) Creatinine 7.8 mg/dL (0.7-1.3) Estimated GFR (Cockcroft-Gault) 7.2 Glucose Level 235 mg/dL (70-99) Calcium Level 8.4 mg/dL (8.5-10.1) Random Vancomycin Level 14.9 mcg/mL Test 11/13/18 07:24 Glucose (Fingerstick) 211 mg/dL (70-99) Medications Active Scripts Medications Dose Route/Sig Max Daily Dose Days Date Category [place] 3 Fish Oil Softgel ([place]-3 Fatty Acids/Fish Oil) 1 Each Capsule.dr 1 Each PO DAILY 11/07/18 Reported Toprol Xl (Metoprolol Succinate) 25 Mg Tab.er.24h 0.5 Tab PO DAILY 11/07/18 Reported Lasix (Furosemide) 80 Mg Tablet 80 Mg PO DAILY 11/07/18 Reported Calcium Acetate 667 Mg Tablet 667 Mg PO TIDWMEALS 11/07/18 Reported Hydralazine Hcl 10 Mg Tablet 10 Mg PO TID MDD 1 10/04/18 Rx Amlodipine Besylate 10 Mg Tablet 10 Mg PO DAILY MDD 1 10/04/18 Rx Lisinopril 40 Mg Tablet 20 Mg PO DAILY MDD 1 10/04/18 Rx Tylenol (Acetaminophen) 325 Mg Tablet 650 Mg PO PRN Q6HRS 10/02/18 Reported Humalog (Insulin Lispro) 100 Unit/1 Ml Cartridge 6 Unit SQ TIDBFRMEAL 10/02/18 Reported Ferrous Sulfate 325 Mg Tablet 1 Tab PO DAILY 09/15/18 Reported Levothyroxine Sodium 175 Mcg Tablet 1 Tab PO DAILY 09/15/18 Reported Reglan (Metoclopramide Hcl) 10 Mg Tablet 5 Mg PO BIDAC 09/15/18 Reported [Pantoprazole] 40 MG Tablet.dr 40 Mg PO DAILYAC 30 09/09/18 Rx Trazodone Hcl 100 Mg Tablet 100 Mg PO PRN QHS PRN 30 09/09/18 Rx Lantus Solostar (Insulin Glargine,Hum.rec.anlog) 100 Unit/1 Ml Insuln.pen 15 Units SQ QHS 30 09/09/18 Rx Budesonide 0.5 Mg/2 Ml Ampul.neb 0.5 Mg NEB RTBID 30 08/29/18 Rx Aspirin 81 Mg Tab.chew 81 Mg PO DAILYWBKFT 30 08/29/18 Rx Carvedilol (Carvedilol) 3.125 Mg Tablet 3.125 Mg PO BIDWMEALS 30 08/29/18 Rx Duoneb 0.5-3(2.5) Mg/3 Ml (Albuterol/Ipratropium) 3 Ml Ampul.neb 3 Ml NEB RTQID 30 08/29/18 Rx Brilinta (Ticagrelor) 90 Mg Tablet 90 Mg PO BID 30 08/29/18 Rx Vitamin D2 (Ergocalciferol (Vitamin D2)) 50,000 Unit Capsule 50,000 Unit PO WEEKLY 04/02/18 Rx Dialyvite Tablet (Folic Acid/Vitamin B Comp W-C) 1 Each Tablet 1 Each PO 03/28/18 Reported Comments CXR 11/13 NO CHANGE IN ORGANIZED EFFUSION Impression . IM 1. Acute on chronic hypoxemic respiratory failure. 2. Bilateral pleural effusions, Right greater than left 3. End-stage renal disease, noncompliant with hemodialysis. 4. Hypertension. 5. Chronic obstructive pulmonary disease. 6. Tobacco dependent. 7. Coronary artery disease with previous stent placement. Plan . CXR 11/13 with no sig change. suspect organized effusion will do ct chest/ May need TPA via chest tube CONTINUE CHEST TUBE, suction -20, FOLLOW UP ON ANALYSIS, exudate by protein criteria only CYTOLOGY pending BD, ICS HD per nephro discussed WITH AND PT and rn RANDI KEY MD Nov 13, 2018 11:17
[2018-11-13] MEDS: CALCIUM ACETATE 667 MG CAPSULE PO SCH ×3 (12:00→17:00)
--- NOTE | 2018-11-13 12:47 | RAD ---
CT of the chest without contrast, 11/13/2018: HISTORY: Follow-up persistent pleural effusion Noncontrast scans were obtained and compared to a study from 11/09/2018. There has been interval placement of a pigtail pleural drain posteriorly in the right lower chest. The large right-sided pleural effusion has decreased in volume. There is a small to moderate size residual volume of pleural fluid on the right with the distribution suggesting partial loculation. There is a small hydropneumothorax present anteriorly. There is much better aeration of the right lung, although there is moderate persistent streaky atelectasis/infiltrate in the right middle and lower lobes. There is a moderate volume of left-sided pleural fluid with moderate underlying atelectasis inferomedially in the left lower lobe and inferiorly in the lingula. The amount of pleural fluid and degree of atelectasis has increased since 11/09/2018. There is calcific plaquing the aorta without evidence of aneurysm. Moderate coronary artery calcifications are present. There is mild mediastinal adenopathy which has worsened slightly. A right paratracheal lymph node demonstrates a short axis dimension of 16 mm compared to 10 mm on the previous study. Mild streaky increased density in the axillary fat is again noted suggesting nonspecific inflammation. Mildly prominent right axillary lymph nodes are also noted. There are scattered spurs in the spine. A small cortical defect with underlying sclerosis in the mid sternum is again noted compatible with a subacute fracture. IMPRESSION: 1. A right pleural drain has been inserted with decrease in volume of the right pleural effusion and improved aeration of the right lung as described above. A small hydropneumothorax component is present anteriorly in the right lower chest. 2. Increase in volume of the moderate sized left pleural effusion with increasing atelectasis/infiltrate in the left base. 3. Mild mediastinal adenopathy has worsened slightly. PQRS Compliance Statement: One or more of the following individualized dose reduction techniques were utilized for this examination: 1. Automated exposure control 2. Adjustment of the mA and/or kV according to patient size 3. Use of iterative reconstruction technique Electronically signed by: Wicho Blake MD (11/13/2018 12:44 PM) [facility]
[2018-11-13] MEDS: VANCOMYCIN PER PHARMACY MC PRN (12:56)
[2018-11-13] MEDS: hydrALAZINE 10 MG TABLET PO SCH ×3 (14:00→21:31)
--- NOTE | 2018-11-13 15:04 | PDOC ---
SUBJECTIVE ROS Seen on HD , tolerating well OBJECTIVE Vital Signs Vital Signs Date Time Temp Pulse Resp B/P (MAP) Pulse Ox O2 Delivery O2 Flow Rate FiO2 11/13/18 10:45 97.8 63 18 127/63 (84) 99 Nasal Cannula 2.0 97.8 I & 0 Intake and Output 11/13/18 06:59 Intake Total 350 ml Output Total 190 ml Balance 160 ml Intake Oral 300 ml IV Total 50 ml Output Urine Total 150 ml Chest Tube Drainage Total 40 ml # Bowel Movements 1 PHYSICAL EXAM Physical Exam GENERAL: NAD HEENT: Oral cavity moist NECK: Supple. LUNGS: Decreased breath sounds at the bases, + crackles. Right CT intact HEART: S1, S2. ABDOMEN: Soft, nontender. EXTREMITIES: No edema. RUE fistula, Bruit/Thrill + SKIN No generalized rash. 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 suspect organized effusion Has chest tube, Exudate, Cytology pending Hypertension- BP controlled Tobacco dependent. Coronary artery disease with previous stent placement. COMMENT/RELEVANT DATA Meds Current Medications Medications (Trade) Dose Ordered Sig/Celi Start Time Stop Time Status Last Admin Dose Admin Acetaminophen (Tylenol) 650 mg PRN Q6HRS PRN 11/07/18 09:15 Acetaminophen/ Hydrocodone Bitart (Lortab 5/325) 1 tab PRN Q4HRS PRN 11/07/18 09:15 11/13/18 09:30 1 TAB Albuterol Sulfate (Ventolin Neb Soln) 2.5 mg PRN Q4HRS PRN 11/07/18 05:45 Albuterol/ Ipratropium (Duoneb) 3 ml 1X ONCE 11/07/18 05:45 11/07/18 05:46 DC 11/07/18 05:50 3 ML Amlodipine Besylate (Norvasc) 10 mg DAILY 11/07/18 10:00 11/12/18 08:51 10 MG Aspirin (Children'S Aspirin) 81 mg DAILYWBKFT 11/07/18 10:00 11/12/18 08:50 81 MG Budesonide (Pulmicort) 0.5 mg RTBID 11/07/18 10:00 11/13/18 07:54 0.5 MG Calcium Acetate (Phoslo) 667 mg TIDWMEALS 11/07/18 12:00 11/12/18 17:14 667 MG Carvedilol (Coreg) 3.125 mg BIDWMEALS 11/07/18 10:00 Cancel Dextrose (Dextrose 50%-Water Syringe) 25 gm STK-MED ONCE 11/07/18 15:09 11/07/18 15:10 DC Ergocalciferol (Vitamin D2) 50,000 unit WEEKLY 11/14/18 09:00 Fentanyl Citrate (Fentanyl 2ml Vial) 100 mcg 1X ONCE 11/09/18 14:15 11/09/18 14:16 DC 11/09/18 14:15 50 MCG Ferrous Sulfate (Feosol) 325 mg DAILY 11/07/18 10:00 11/12/18 08:50 325 MG Fish Oil (Fish Oil) 1,000 mg DAILY 11/07/18 10:00 11/12/18 08:49 1,000 MG Furosemide (Lasix) 80 mg DAILY 11/07/18 10:00 11/12/18 08:51 80 MG Hydralazine HCl (Apresoline) 10 mg STK-MED ONCE 11/09/18 09:00 11/09/18 15:37 DC Info (PHARMACY MONITORING -- do not chart) 1 each PRN DAILY PRN 11/13/18 11:15 UNV Insulin Glargine (Lantus) 15 units QHS 11/07/18 21:00 11/12/18 21:44 15 UNITS Insulin Human Lispro (HumaLOG) 20 units 1X ONCE 11/11/18 08:15 11/11/18 08:16 DC 11/11/18 08:28 20 UNITS Iohexol (Omnipaque 300 Mg/ml) 75 ml 1X ONCE 11/09/18 07:00 11/09/18 07:01 DC 11/09/18 07:40 75 ML Labetalol HCl (Normodyne Iv Push) 20 mg PRN Q2HR PRN 11/07/18 09:15 Lactobacillus Rhamnosus (Culturelle) 1 cap BID 11/09/18 21:00 11/12/18 21:41 1 CAP Levothyroxine Sodium (Synthroid) 175 mcg DAILY06 11/07/18 10:00 11/13/18 05:16 175 MCG Lisinopril (Prinivil) 20 mg DAILY 11/07/18 10:00 11/12/18 08:52 20 MG Metoclopramide HCl (Reglan) 5 mg BIDAC 11/07/18 10:00 11/12/18 16:41 5 MG Metoprolol Succinate (Toprol Xl) 12.5 mg DAILY 11/07/18 10:00 11/12/18 08:51 12.5 MG Nicotine (Nicoderm Cq 21mg) 1 patch PRN DAILY PRN 11/07/18 11:15 Pantoprazole Sodium (Protonix) 40 mg DAILYAC 11/07/18 10:00 11/12/18 07:33 40 MG Piperacillin Sod/ Tazobactam Sod (Zosyn Per Pharmacy) 1 each PRN DAILY PRN 11/09/18 12:00 Piperacillin Sod/ Tazobactam Sod 2.25 gm/Sodium Chloride 50 ml @ 100 mls/hr Q8HRS 11/09/18 13:00 11/13/18 05:16 100 MLS/HR Simvastatin (Zocor) 20 mg HS 11/11/18 21:00 11/12/18 21:41 20 MG Sodium Chloride 1,000 ml @ 400 mls/hr Q2H30M PRN 11/13/18 11:00 11/13/18 19:00 Ticagrelor (Brilinta) 90 mg BID 11/07/18 10:00 11/12/18 21:41 90 MG Trazodone HCl (Desyrel) 100 mg PRN QHS PRN 11/07/18 09:15 11/07/18 22:10 100 MG Vancomycin HCl (Vanco Per Pharmacy) 1 each PRN DAILY PRN 11/09/18 12:00 11/13/18 12:56 1 EACH Vancomycin HCl (Vancomycin Random Level) 1 each 1X ONCE 11/13/18 05:00 11/13/18 05:01 DC 11/13/18 05:00 1 EACH Vancomycin HCl 500 mg/Sodium Chloride 100 ml @ 100 mls/hr QMWF 11/15/18 16:00 Vancomycin HCl 750 mg/Sodium Chloride 250 ml @ 250 mls/hr ONCE ONCE 11/13/18 16:00 11/13/18 16:59 Vancomycin HCl 2 gm/Sodium Chloride 500 ml @ 250 mls/hr 1X ONCE 11/09/18 13:00 11/09/18 14:59 DC 11/09/18 13:00 250 MLS/HR Lab Laboratory Tests Test 11/12/18 16:43 11/12/18 20:41 11/13/18 06:45 11/13/18 07:24 Glucose (Fingerstick) 129 mg/dL (70-99) 302 mg/dL (70-99) 211 mg/dL (70-99) White Blood Count 6.7 x10^3/uL (4.0-11.0) Red Blood Count 2.97 x10^6/uL (4.30-5.70) Hemoglobin 8.3 g/dL (13.0-17.5) Hematocrit 25.9 % (39.0-53.0) Mean Corpuscular Volume 87 fL (79-100) Mean Corpuscular Hemoglobin 28 pg (25-35) Mean Corpuscular Hemoglobin Concent 32 g/dL (31-37) Red Cell Distribution Width 17.1 % (11.5-14.5) Platelet Count 215 x10^3/uL (140-400) Sodium Level 135 mmol/L (136-145) Potassium Level 5.3 mmol/L (3.5-5.1) Chloride Level 97 mmol/L (98-107) Carbon Dioxide Level 26 mmol/L (21-32) Anion Gap 12 (6-14) Blood Urea Nitrogen 80 mg/dL (8-26) Creatinine 7.8 mg/dL (0.7-1.3) Estimated GFR (Cockcroft-Gault) 7.2 Glucose Level 235 mg/dL (70-99) Calcium Level 8.4 mg/dL (8.5-10.1) Random Vancomycin Level 14.9 mcg/mL Results All relevant outside records, renal labs, imaging studies, telemetry/EKG's were reviewed. REBECCA ANGLIN MD Nov 13, 2018 15:04
[2018-11-13] MEDS ORDERED: VANCOMYCIN 750 MG in IV NORMAL SALINE 250ML 250 ML IV ONE (16:00)
--- NOTE | 2018-11-13 16:16 | PDOC ---
PROGRESS NOTES Chief Complaint Chief Complaint hypoxia, large right pleural effusion ESRD, on HD Tuesday Anemia of ESRD Hypertension, controlled Diabetes- poorly controlled History of cardiac stents-chronic stable tobaccoism History of Present Illness History of Present Illness getting better chest tube still prod fluid cont current HD today Vitals Vitals Vital Signs Date Time Temp Pulse Resp B/P (MAP) Pulse Ox O2 Delivery O2 Flow Rate FiO2 11/13/18 10:45 97.8 63 18 127/63 (84) 99 Nasal Cannula 2.0 97.8 Physical Exam Physical Exam GENERAL: In chair. NAD and coop HEENT: Oral cavity clear NECK: Supple. LUNGS: Decreased breath sounds at the bases, + crackles. Right CT intact HEART: S1, S2. ABDOMEN: Soft, nontender. EXTREMITIES: No edema. RUE fistula SKIN: Warm, dry. No generalized rash. 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, responds appropriately General: Alert, Oriented X3, Cooperative, mild distress Heart: Regular rate, Normal S1, Normal S2 Lungs: Other (DECREASE BS IN BASE, r ct) Abdomen: Normal bowel sounds, Soft, No tenderness Extremities: No clubbing, No cyanosis Skin: No breakdown Labs LABS Laboratory Tests Test 11/12/18 16:43 11/12/18 20:41 11/13/18 06:45 11/13/18 07:24 Glucose (Fingerstick) 129 mg/dL (70-99) 302 mg/dL (70-99) 211 mg/dL (70-99) White Blood Count 6.7 x10^3/uL (4.0-11.0) Red Blood Count 2.97 x10^6/uL (4.30-5.70) Hemoglobin 8.3 g/dL (13.0-17.5) Hematocrit 25.9 % (39.0-53.0) Mean Corpuscular Volume 87 fL (79-100) Mean Corpuscular Hemoglobin 28 pg (25-35) Mean Corpuscular Hemoglobin Concent 32 g/dL (31-37) Red Cell Distribution Width 17.1 % (11.5-14.5) Platelet Count 215 x10^3/uL (140-400) Sodium Level 135 mmol/L (136-145) Potassium Level 5.3 mmol/L (3.5-5.1) Chloride Level 97 mmol/L (98-107) Carbon Dioxide Level 26 mmol/L (21-32) Anion Gap 12 (6-14) Blood Urea Nitrogen 80 mg/dL (8-26) Creatinine 7.8 mg/dL (0.7-1.3) Estimated GFR (Cockcroft-Gault) 7.2 Glucose Level 235 mg/dL (70-99) Calcium Level 8.4 mg/dL (8.5-10.1) Random Vancomycin Level 14.9 mcg/mL Comment Review of Relevant I have reviewed the following items yesenia (where applicable) has been applied. Labs Laboratory Tests Test 11/11/18 17:01 11/11/18 20:49 11/12/18 07:46 11/12/18 11:27 Glucose (Fingerstick) 138 mg/dL (70-99) 297 mg/dL (70-99) 233 mg/dL (70-99) 175 mg/dL (70-99) Test 11/12/18 16:43 11/12/18 20:41 11/13/18 06:45 11/13/18 07:24 Glucose (Fingerstick) 129 mg/dL (70-99) 302 mg/dL (70-99) 211 mg/dL (70-99) White Blood Count 6.7 x10^3/uL (4.0-11.0) Red Blood Count 2.97 x10^6/uL (4.30-5.70) Hemoglobin 8.3 g/dL (13.0-17.5) Hematocrit 25.9 % (39.0-53.0) Mean Corpuscular Volume 87 fL (79-100) Mean Corpuscular Hemoglobin 28 pg (25-35) Mean Corpuscular Hemoglobin Concent 32 g/dL (31-37) Red Cell Distribution Width 17.1 % (11.5-14.5) Platelet Count 215 x10^3/uL (140-400) Sodium Level 135 mmol/L (136-145) Potassium Level 5.3 mmol/L (3.5-5.1) Chloride Level 97 mmol/L (98-107) Carbon Dioxide Level 26 mmol/L (21-32) Anion Gap 12 (6-14) Blood Urea Nitrogen 80 mg/dL (8-26) Creatinine 7.8 mg/dL (0.7-1.3) Estimated GFR (Cockcroft-Gault) 7.2 Glucose Level 235 mg/dL (70-99) Calcium Level 8.4 mg/dL (8.5-10.1) Random Vancomycin Level 14.9 mcg/mL Laboratory Tests Test 11/12/18 16:43 11/12/18 20:41 11/13/18 06:45 11/13/18 07:24 Glucose (Fingerstick) 129 mg/dL (70-99) 302 mg/dL (70-99) 211 mg/dL (70-99) White Blood Count 6.7 x10^3/uL (4.0-11.0) Red Blood Count 2.97 x10^6/uL (4.30-5.70) Hemoglobin 8.3 g/dL (13.0-17.5) Hematocrit 25.9 % (39.0-53.0) Mean Corpuscular Volume 87 fL (79-100) Mean Corpuscular Hemoglobin 28 pg (25-35) Mean Corpuscular Hemoglobin Concent 32 g/dL (31-37) Red Cell Distribution Width 17.1 % (11.5-14.5) Platelet Count 215 x10^3/uL (140-400) Sodium Level 135 mmol/L (136-145) Potassium Level 5.3 mmol/L (3.5-5.1) Chloride Level 97 mmol/L (98-107) Carbon Dioxide Level 26 mmol/L (21-32) Anion Gap 12 (6-14) Blood Urea Nitrogen 80 mg/dL (8-26) Creatinine 7.8 mg/dL (0.7-1.3) Estimated GFR (Cockcroft-Gault) 7.2 Glucose Level 235 mg/dL (70-99) Calcium Level 8.4 mg/dL (8.5-10.1) Random Vancomycin Level 14.9 mcg/mL Microbiology 11/09/18 Blood Culture - Preliminary, Resulted NO GROWTH AFTER 4 DAYS 11/09/18 Anaerobic/Aerobic Culture, Resulted Pending 11/09/18 Anaerobic Culture Result 1 (TERENCE), Resulted Pending 11/09/18 Aerobic Culture - Final, Resulted 11/09/18 Aerobic Culture Result 1 (TERENCE) - Final, Resulted 11/09/18 Gram Stain - Final, Resulted 11/09/18 Gram Stain Result 1 (TERENCE) - Final, Resulted 11/09/18 Gram Stain Result 2 (TERENCE) - Final, Resulted Medications Current Medications Dextrose (Dextrose 50%-Water Syringe) 12.5 gm PRN Q15MIN PRN IV SEE COMMENTS; Start 11/07/18 at 03:30; Stop 11/07/18 at 07:42; Status DC Albuterol/ Ipratropium (Duoneb) 3 ml RTQID NEB Last administered on 11/13/18at 07:54; Start 11/07/18 at 08:00 Albuterol/ Ipratropium (Duoneb) 3 ml 1X ONCE NEB Last administered on at 05:50; Start 11/07/18 at 05:45; Stop 11/07/18 at 05:46; Status DC Albuterol Sulfate (Ventolin Neb Soln) 2.5 mg PRN Q4HRS PRN NEB SHORTNESS OF BREATH; Start 11/07/18 at 05:45 Furosemide (Lasix) 40 mg 1X ONCE IVP Last administered on 11/07/18at 05:49; Start 11/07/18 at 05:45; Stop 11/07/18 at 05:46; Status DC Insulin Human Lispro (HumaLOG) 20 units 1X ONCE SQ Last administered on at 07:58; Start 11/07/18 at 07:45; Stop 11/07/18 at 07:46; Status DC Insulin Human Lispro (HumaLOG) 0-7 UNITS TIDWMEALS SQ ; Start 11/07/18 at 12:00 ; Stop 11/07/18 at 12:00; Status DC Dextrose (Dextrose 50%-Water Syringe) 12.5 gm PRN Q15MIN PRN IV SEE COMMENTS; Start 11/07/18 at 07:45; Stop 11/07/18 at 09:06; Status DC Insulin Human Lispro (HumaLOG) 0-9 UNITS TIDWMEALS SQ Last administered on 11/09at 17:23; Start 11/07/18 at 09:30; Stop 11/09/18 at 22:40; Status DC Dextrose (Dextrose 50%-Water Syringe) 12.5 gm PRN Q15MIN PRN IV SEE COMMENTS; Start 11/07/18 at 09:15 Labetalol HCl (Normodyne Iv Push) 20 mg PRN Q2HR PRN IVP HYPERTENSION, SEE COMMENTS; Start 11/07/18 at 09:15 Acetaminophen (Tylenol) 650 mg PRN Q6HRS PRN PO MILD PAIN / TEMP; Start at 09:15 Amlodipine Besylate (Norvasc) 10 mg DAILY PO Last administered on 11/12/18 08: 51; Start 11/07/18 at 10:00 Aspirin (Children'S Aspirin) 81 mg DAILYWBKFT PO Last administered on at 08:50; Start 11/07/18 at 10:00 Budesonide (Pulmicort) 0.5 mg RTBID NEB Last administered on 11/13/18 07:54; Start 11/07/18 at 10:00 Carvedilol (Coreg) 3.125 mg BIDWMEALS PO ; Start 11/07/18 at 10:00; Status Cancel Ergocalciferol (Vitamin D2) 50,000 unit WEEKLY PO ; Start 11/14/18 at 09:00 Ferrous Sulfate (Feosol) 325 mg DAILY PO Last administered on 11/12/18 08:50; Start 11/07/18 at 10:00 Furosemide (Lasix) 80 mg DAILY PO Last administered on 11/12/18 08:51; Start 11/07/18 at 10:00 Insulin Glargine (Lantus) 15 units QHS SQ Last administered on 11/12/18 21:44 ; Start 11/07/18 at 21:00 Levothyroxine Sodium (Synthroid) 175 mcg DAILY06 PO Last administered on 05:16; Start 11/07/18 at 10:00 Lisinopril (Prinivil) 20 mg DAILY PO Last administered on 11/12/18 08:52; Start 11/07/18 at 10:00 Metoclopramide HCl (Reglan) 5 mg BIDAC PO Last administered on 11/12/18 16:41 ; Start 11/07/18 at 10:00 Metoprolol Succinate (Toprol Xl) 12.5 mg DAILY PO Last administered on 08:51; Start 11/07/18 at 10:00 Ticagrelor (Brilinta) 90 mg BID PO Last administered on 11/12/18 21:41; Start 11/07/18 at 10:00 Trazodone HCl (Desyrel) 100 mg PRN QHS PRN PO INSOMNIA Last administered on 09/13at 22:10; Start 11/07/18 at 09:15 Calcium Acetate (Phoslo) 667 mg TIDWMEALS PO Last administered on 11/12/18at 17: 14; Start 11/07/18 at 12:00 Hydralazine HCl (Apresoline) 10 mg TID PO Last administered on 11/12/18at 21:42 ; Start 11/07/18 at 14:00 Insulin Human Lispro (HumaLOG) 6 units TIDWMEALS SQ Last administered on at 11:45; Start 11/07/18 at 09:30; Stop 11/07/18 at 16:01; Status DC Fish Oil (Fish Oil) 1,000 mg DAILY PO Last administered on 11/12/18at 08:49; Start 11/07/18 at 10:00 Pantoprazole Sodium (Protonix) 40 mg DAILYAC PO Last administered on 11/12/18at 07:33; Start 11/07/18 at 10:00 Acetaminophen/ Hydrocodone Bitart (Lortab 5/325) 1 tab PRN Q4HRS PRN PO MODERATE - SEVERE PAIN Last administered on 11/13/18at 09:30; Start 11/07/18 at 09:15 Nicotine (Nicoderm Cq 21mg) 1 patch PRN DAILY PRN TD SMOKING CESSATION; Start 11/07/18 at 11:15 Dextrose (Dextrose 50%-Water Syringe) 25 gm STK-MED ONCE IV ; Start 11/07/18 at 15:09; Stop 11/07/18 at 15:10; Status DC Sodium Chloride 1,000 ml @ 1,000 mls/hr Q1H PRN IV hypotension; Start 11/07/18 at 16:10; Stop 11/07/18 at 22:09; Status DC Info (PHARMACY MONITORING -- do not chart) 1 each PRN DAILY PRN MC SEE COMMENTS ; Start 11/07/18 at 16:15; Status UNV Info (PHARMACY MONITORING -- do not chart) 1 each PRN DAILY PRN MC SEE COMMENTS ; Start 11/07/18 at 16:15; Stop 11/09/18 at 12:04; Status DC Sodium Chloride 1,000 ml @ 1,000 mls/hr Q1H PRN IV hypotension; Start 11/08/18 at 14:23; Stop 11/08/18 at 20:22; Status DC Sodium Chloride 1,000 ml @ 400 mls/hr Q2H30M PRN IV PATENCY; Start 11/08/18 at 14:23; Stop 11/09/18 at 02:22; Status DC Info (PHARMACY MONITORING -- do not chart) 1 each PRN DAILY PRN MC SEE COMMENTS ; Start 11/08/18 at 14:30 Iohexol (Omnipaque 300 Mg/ml) 75 ml 1X ONCE IV Last administered on 11/09/18at 07:40; Start 11/09/18 at 07:00; Stop 11/09/18 at 07:01; Status DC Piperacillin Sod/ Tazobactam Sod (Zosyn Per Pharmacy) 1 each PRN DAILY PRN MC SEE COMMENTS; Start 11/09/18 at 12:00 Vancomycin HCl (Vanco Per Pharmacy) 1 each PRN DAILY PRN MC SEE COMMENTS Last administered on 11/13/18at 12:56; Start 11/09/18 at 12:00 Piperacillin Sod/ Tazobactam Sod 2.25 gm/Sodium Chloride 50 ml @ 100 mls/hr Q8HRS IV Last administered on 11/13/18at 05:16; Start 11/09/18 at 13:00 Vancomycin HCl 2 gm/Sodium Chloride 500 ml @ 250 mls/hr 1X ONCE IV Last administered on 11/09/18at 13:00; Start 11/09/18 at 13:00; Stop 11/09/18 at 14:59 ; Status DC Fentanyl Citrate (Fentanyl 2ml Vial) 100 mcg STK-MED ONCE .ROUTE ; Start at 13:54; Stop 11/09/18 at 13:55; Status DC Fentanyl Citrate (Fentanyl 2ml Vial) 100 mcg 1X ONCE IV Last administered on at 14:15; Start 11/09/18 at 14:15; Stop 11/09/18 at 14:16; Status DC Hydralazine HCl (Apresoline) 10 mg STK-MED ONCE .ROUTE ; Start 11/07/18 at 09:00 ; Stop 11/09/18 at 15:36; Status DC Hydralazine HCl (Apresoline) 10 mg STK-MED ONCE .ROUTE ; Start 11/07/18 at 09:00 ; Stop 11/09/18 at 15:36; Status DC Hydralazine HCl (Apresoline) 10 mg STK-MED ONCE .ROUTE ; Start 11/08/18 at 09:00 ; Stop 11/09/18 at 15:37; Status DC Hydralazine HCl (Apresoline) 10 mg STK-MED ONCE .ROUTE ; Start 11/09/18 at 09:00 ; Stop 11/09/18 at 15:37; Status DC Hydralazine HCl (Apresoline) 10 mg STK-MED ONCE .ROUTE ; Start 11/09/18 at 09:00 ; Stop 11/09/18 at 15:37; Status DC Lactobacillus Rhamnosus (Culturelle) 1 cap BID PO Last administered on at 21:41; Start 11/09/18 at 21:00 Vancomycin HCl (Vancomycin Random Level) 1 each 1X ONCE MC ; Start 11/11/18 at 06:00; Stop 11/11/18 at 06:01; Status DC Insulin Human Lispro (HumaLOG) 0-9 UNITS QIDACHS SQ Last administered on at 21:45; Start 11/09/18 at 23:00 Insulin Human Lispro (HumaLOG) 20 units PRN QHS PRN SQ SEE COMMENTS Last administered on 11/11/18at 08:19; Start 11/09/18 at 22:30 Sodium Chloride 1,000 ml @ 1,000 mls/hr Q1H PRN IV hypotension; Start 11/10/18 at 11:47; Stop 11/10/18 at 17:46; Status DC Sodium Chloride 1,000 ml @ 400 mls/hr Q2H30M PRN IV PATENCY; Start 11/10/18 at 11:47; Stop 11/10/18 at 23:46; Status DC Info (PHARMACY MONITORING -- do not chart) 1 each PRN DAILY PRN MC SEE COMMENTS ; Start 11/10/18 at 12:00; Status UNV Insulin Human Lispro (HumaLOG) 20 units 1X ONCE SQ Last administered on at 08:28; Start 11/11/18 at 08:15; Stop 11/11/18 at 08:16; Status DC Simvastatin (Zocor) 20 mg HS PO Last administered on 11/12/18at 21:41; Start at 21:00 Vancomycin HCl (Vancomycin Random Level) 1 each 1X ONCE MC Last administered on 11/13/18at 05:00; Start 11/13/18 at 05:00; Stop 11/13/18 at 05:01; Status DC Vancomycin HCl 500 mg/Sodium Chloride 100 ml @ 100 mls/hr QMWF IV ; Start 11/15 at 16:00 Sodium Chloride 1,000 ml @ 1,000 mls/hr Q1H PRN IV hypotension; Start 11/13/18 at 11:00; Stop 11/13/18 at 19:00 Sodium Chloride 1,000 ml @ 400 mls/hr Q2H30M PRN IV PATENCY; Start 11/13/18 at 11:00; Stop 11/13/18 at 19:00 Info (PHARMACY MONITORING -- do not chart) 1 each PRN DAILY PRN MC SEE COMMENTS ; Start 11/13/18 at 11:15; Status UNV Info (PHARMACY MONITORING -- do not chart) 1 each PRN DAILY PRN MC SEE COMMENTS ; Start 11/13/18 at 11:15; Status UNV Vancomycin HCl 750 mg/Sodium Chloride 250 ml @ 250 mls/hr ONCE ONCE IV ; Start 11/13/18 at 16:00; Stop 11/13/18 at 16:59 Active Scripts Active Hydralazine Hcl 10 Mg Tablet 10 Mg PO TID MDD 1 Amlodipine Besylate 10 Mg Tablet 10 Mg PO DAILY MDD 1 Lisinopril 40 Mg Tablet 20 Mg PO DAILY MDD 1 [Pantoprazole] 40 MG Tablet.dr 40 Mg PO DAILYAC 30 Days Trazodone Hcl 100 Mg Tablet 100 Mg PO PRN QHS PRN 30 Days Lantus Solostar (Insulin Glargine,Hum.rec.anlog) 100 Unit/1 Ml Insuln.pen 15 Units SQ QHS 30 Days Budesonide 0.5 Mg/2 Ml Ampul.neb 0.5 Mg NEB RTBID 30 Days Aspirin 81 Mg Tab.chew 81 Mg PO DAILYWBKFT 30 Days Carvedilol (Carvedilol) 3.125 Mg Tablet 3.125 Mg PO BIDWMEALS 30 Days Duoneb 0.5-3(2.5) Mg/3 Ml (Albuterol/Ipratropium) 3 Ml Ampul.neb 3 Ml NEB RTQID 30 Days Brilinta (Ticagrelor) 90 Mg Tablet 90 Mg PO BID 30 Days Vitamin D2 (Ergocalciferol (Vitamin D2)) 50,000 Unit Capsule 50,000 Unit PO WEEKLY Reported [place] 3 Fish Oil Softgel ([place]-3 Fatty Acids/Fish Oil) 1 Each Capsule.dr 1 Each PO DAILY Toprol Xl (Metoprolol Succinate) 25 Mg Tab.er.24h 0.5 Tab PO DAILY Lasix (Furosemide) 80 Mg Tablet 80 Mg PO DAILY Calcium Acetate 667 Mg Tablet 667 Mg PO TIDWMEALS Tylenol (Acetaminophen) 325 Mg Tablet 650 Mg PO PRN Q6HRS Humalog (Insulin Lispro) 100 Unit/1 Ml Cartridge 6 Unit SQ TIDBFRMEAL Ferrous Sulfate 325 Mg Tablet 1 Tab PO DAILY Levothyroxine Sodium 175 Mcg Tablet 1 Tab PO DAILY Reglan (Metoclopramide Hcl) 10 Mg Tablet 5 Mg PO BIDAC Dialyvite Tablet (Folic Acid/Vitamin B Comp W-C) 1 Each Tablet 1 Each PO Vitals/I & O Vital Sign - Last 24 Hours 11/12/18 11/12/18 11/12/18 11/12/18 19:00 19:50 20:00 21:42 Temp 98.1 98.1 Pulse 67 67 Resp 18 B/P (MAP) 138/61 (86) 138/61 Pulse Ox 96 96 O2 Delivery Nasal Cannula Nasal Cannula Nasal Cannula O2 Flow Rate 2.0 2.0 3.0 11/12/18 11/12/18 11/13/18 11/13/18 21:52 22:48 03:00 07:00 Temp 98.2 97.9 97.8 98.2 97.9 97.8 Pulse 69 65 61 Resp 18 18 18 B/P (MAP) 124/48 (73) 130/57 (81) 129/59 (82) Pulse Ox 95 96 94 O2 Delivery Nasal Cannula Nasal Cannula Nasal Cannula Nasal Cannula O2 Flow Rate 3.0 2.0 2.0 2.0 11/13/18 11/13/18 11/13/18 07:55 09:30 10:45 Temp 97.8 97.8 Pulse 63 Resp 18 B/P (MAP) 127/63 (84) Pulse Ox 94 99 O2 Delivery Room Air Room Air Nasal Cannula O2 Flow Rate 2.0 Intake and Output 11/12/18 11/12/18 11/13/18 15:00 23:00 07:00 Intake Total 230 ml 120 ml Output Total 100 ml 10 ml 80 ml Balance 130 ml 110 ml -80 ml CORNELIO OATES MD Nov 13, 2018 16:16
[2018-11-13] MEDS: METOCLOPRAMIDE 5 MG TABLET. PO SCH ×2 (16:30→16:57)
[2018-11-13] MEDS: ASPIRIN CHEWABLE 81 MG TABLET. PO SCH (16:57)
[2018-11-13] MEDS: PANTOPRAZOLE 40 MG TABLET.DR. PO SCH (16:57)
[2018-11-13] MEDS: amLODIPine BESYLATE 10 MG TABLET PO SCH (16:57)
[2018-11-13] MEDS: OMEGA-3 FATTY ACIDS/FISH OIL 1,000 MG CAPSULE. PO SCH (16:57)
[2018-11-13] MEDS: METOPROLOL SUCC 24HR ER 25 MG TAB.ER.24H. PO SCH (16:57)
[2018-11-13] MEDS: FERROUS SULFATE 325 MG TABLET. PO SCH (16:58)
[2018-11-13] MEDS: LACTOBACILLUS RHAMNOSUS GG 1 CAPSULE. PO SCH ×2 (16:59→21:32)
[2018-11-13] MEDS: FUROSEMIDE 80 MG TABLET. PO SCH (16:59)
[2018-11-13] MEDS: TICAGRELOR 90 MG TABLET. PO SCH ×2 (16:59→21:32)
--- NOTE | 2018-11-13 18:06 | PATHOLOGY ---
Note [facility] Accession Number: [id number] TESTS RESULT FLAG UNITS REF RANGE LAB Clinician Provided Cytology Information No. of containers..01 Other (Miscellaneous) Source: RIGHT PLEURAL FLUID DIAGNOSIS: 02 RIGHT PLEURAL FLUID NEGATIVE FOR MALIGNANT CELLS. MESOTHELIAL CELLS AND INFLAMMATORY CELLS ARE PRESENT. THIS INTERPRETATION INCLUDES EVALUATION OF A CELL BLOCK. Signed out by: 02 Marlon Ayala MD, Pathologist NPI- [id number] Performed by: Prabhjot Grace, Maintenance Technician [address] Shift ([facility]) Gross description: 01 50ML, RED, CLOUDY /LCS FLAG LEGEND: L-Low Normal,H-High Normal,LL-Alert Low,HH-Alert High <-Panic Low,>-Panic High,A-Abnormal,AA-Critical Abnormal Performed at: [address] [id number] Oscar Blanc MD, 02 [facility] [address] [place] [address] Marlon Ayala MD, Specimen Comment: A courtesy copy of this report has been sent to Specimen Comment: [phone]. Specimen Comment: Report sent to Specimen Comment: A duplicate report has been generated due to demographic updates. Performed at: [address] [place] [address] [address], [place], [place] [id number] MD Oscar Blanc MD Phone: [phone]
[2018-11-13 19:00] VITALS: BP 143/56
[2018-11-13] MEDS: traZODone 100 MG TABLET. PO PRN (21:32)
[2018-11-13] MEDS: SIMVASTATIN 20 MG TABLET PO SCH (21:47)
[2018-11-13] MEDS: INSULIN GLARGINE 300 UNITS/3 ML INSULN.PEN. SQ SCH (21:48)
[2018-11-13 23:00] VITALS: BP 138/55
[2018-11-14 03:00] VITALS: BP 140/58
[2018-11-14] MEDS: HYDROcodone/APAP 5/325MG 1 TAB TABLET PO PRN (03:39)
[2018-11-14] MEDS: PIPERACILLIN/TAZOBACTAM 2.25 GM in IV NORMAL SALINE 50ML 50 ML IV SCH ×3 (06:05→22:57)
[2018-11-14] MEDS: LEVOTHYROXINE 175 MCG TABLET PO SCH (06:05)
[2018-11-14 07:00] VITALS: BP 124/58
[2018-11-14] MEDS: INSULIN LISPRO 300 UNITS/3 ML INSULN.PEN. SQ SCH ×4 (07:30→22:28)
[2018-11-14] MEDS: PANTOPRAZOLE 40 MG TABLET.DR. PO SCH (08:05)
[2018-11-14] MEDS: METOCLOPRAMIDE 5 MG TABLET. PO SCH ×2 (08:06→17:27)
[2018-11-14] MEDS: ASPIRIN CHEWABLE 81 MG TABLET. PO SCH (08:06)
[2018-11-14] MEDS: CALCIUM ACETATE 667 MG CAPSULE PO SCH ×3 (08:07→17:27)
[2018-11-14] MEDS: IPRATRPIUM/ALBUTEROL 0.5/2.5MG 3 ML NEBU. NEB SCH ×4 (08:33→19:44)
[2018-11-14] MEDS: BUDESONIDE 0.5 MG/2 ML NEBU. NEB SCH ×2 (08:34→19:44)
[2018-11-14] MEDS: LACTOBACILLUS RHAMNOSUS GG 1 CAPSULE. PO SCH ×3 (09:00→22:15)
[2018-11-14] MEDS ORDERED: ERGOCALCIFEROL (VITAMIN D2) 50,000 UNIT CAPSULE. PO SCH (09:00)
[2018-11-14] MEDS: TICAGRELOR 90 MG TABLET. PO SCH ×2 (09:02→22:16)
[2018-11-14] MEDS: hydrALAZINE 10 MG TABLET PO SCH ×3 (09:02→22:16)
[2018-11-14] MEDS: FUROSEMIDE 80 MG TABLET. PO SCH (09:04)
[2018-11-14] MEDS: OMEGA-3 FATTY ACIDS/FISH OIL 1,000 MG CAPSULE. PO SCH (09:04)
[2018-11-14] MEDS: FERROUS SULFATE 325 MG TABLET. PO SCH (09:04)
[2018-11-14] MEDS: LISINOPRIL 20 MG TABLET PO SCH (09:06)
[2018-11-14] MEDS: amLODIPine BESYLATE 10 MG TABLET PO SCH (09:06)
[2018-11-14] MEDS: METOPROLOL SUCC 24HR ER 25 MG TAB.ER.24H. PO SCH (09:08)
[2018-11-14 11:00] VITALS: BP 110/53
--- NOTE | 2018-11-14 11:18 | PDOC ---
SUBJECTIVE ROS States feeling better, sitting up in chair Rt forearm swelling- states he noticed post HD yesterday, No pain OBJECTIVE Vital Signs Vital Signs Date Time Temp Pulse Resp B/P (MAP) Pulse Ox O2 Delivery O2 Flow Rate FiO2 11/14/18 09:08 72 124/58 11/14/18 08:35 96 Nasal Cannula 3.0 11/14/18 07:00 98.7 20 98.7 I & 0 Intake and Output 11/14/18 06:59 Intake Total 1580 ml Balance 1580 ml Intake Oral 1580 ml # Voids 2 # Bowel Movements 2 PHYSICAL EXAM Physical Exam GENERAL: NAD HEENT: Oral cavity moist NECK: Supple. LUNGS: Decreased breath sounds at the bases, + crackles. Right CT intact HEART: S1, S2. ABDOMEN: Soft, nontender. EXTREMITIES: No edema. RUE fistula, Bruit/Thrill + SKIN No generalized rash. 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 suspect organized effusion Has chest tube, Exudate, Cytology pending Hypertension- BP controlled Tobacco dependent. Coronary artery disease with previous stent placement. COMMENT/RELEVANT DATA Meds Current Medications Medications (Trade) Dose Ordered Sig/Celi Start Time Stop Time Status Last Admin Dose Admin Acetaminophen (Tylenol) 650 mg PRN Q6HRS PRN 11/07/18 09:15 Acetaminophen/ Hydrocodone Bitart (Lortab 5/325) 1 tab PRN Q4HRS PRN 11/07/18 09:15 11/14/18 03:39 1 TAB Albuterol Sulfate (Ventolin Neb Soln) 2.5 mg PRN Q4HRS PRN 11/07/18 05:45 Albuterol/ Ipratropium (Duoneb) 3 ml 1X ONCE 11/07/18 05:45 11/07/18 05:46 DC 11/07/18 05:50 3 ML Amlodipine Besylate (Norvasc) 10 mg DAILY 11/07/18 10:00 11/14/18 09:06 10 MG Aspirin (Children'S Aspirin) 81 mg DAILYWBKFT 11/07/18 10:00 11/14/18 08:06 81 MG Budesonide (Pulmicort) 0.5 mg RTBID 11/07/18 10:00 11/14/18 08:34 0.5 MG Calcium Acetate (Phoslo) 667 mg TIDWMEALS 11/07/18 12:00 11/14/18 08:07 667 MG Carvedilol (Coreg) 3.125 mg BIDWMEALS 11/07/18 10:00 Cancel Dextrose (Dextrose 50%-Water Syringe) 25 gm STK-MED ONCE 11/07/18 15:09 11/07/18 15:10 DC Ergocalciferol (Vitamin D2) 50,000 unit WEEKLY 11/14/18 09:00 11/14/18 09:08 50,000 UNIT Fentanyl Citrate (Fentanyl 2ml Vial) 100 mcg 1X ONCE 11/09/18 14:15 11/09/18 14:16 DC 11/09/18 14:15 50 MCG Ferrous Sulfate (Feosol) 325 mg DAILY 11/07/18 10:00 11/14/18 09:04 325 MG Fish Oil (Fish Oil) 1,000 mg DAILY 11/07/18 10:00 11/14/18 09:04 1,000 MG Furosemide (Lasix) 80 mg DAILY 11/07/18 10:00 11/14/18 09:04 80 MG Hydralazine HCl (Apresoline) 10 mg STK-MED ONCE 11/09/18 09:00 11/09/18 15:37 DC Info (PHARMACY MONITORING -- do not chart) 1 each PRN DAILY PRN 11/13/18 11:15 UNV Insulin Glargine (Lantus) 15 units QHS 11/07/18 21:00 11/13/18 21:48 15 UNITS Insulin Human Lispro (HumaLOG) 20 units 1X ONCE 11/11/18 08:15 11/11/18 08:16 DC 11/11/18 08:28 20 UNITS Iohexol (Omnipaque 300 Mg/ml) 75 ml 1X ONCE 11/09/18 07:00 11/09/18 07:01 DC 11/09/18 07:40 75 ML Labetalol HCl (Normodyne Iv Push) 20 mg PRN Q2HR PRN 11/07/18 09:15 Lactobacillus Rhamnosus (Culturelle) 1 cap BID 11/09/18 21:00 11/13/18 21:32 1 CAP Levothyroxine Sodium (Synthroid) 175 mcg DAILY06 11/07/18 10:00 11/14/18 06:05 175 MCG Lisinopril (Prinivil) 20 mg DAILY 11/07/18 10:00 11/14/18 09:06 20 MG Metoclopramide HCl (Reglan) 5 mg BIDAC 11/07/18 10:00 11/14/18 08:06 5 MG Metoprolol Succinate (Toprol Xl) 12.5 mg DAILY 11/07/18 10:00 11/14/18 09:08 12.5 MG Nicotine (Nicoderm Cq 21mg) 1 patch PRN DAILY PRN 11/07/18 11:15 Pantoprazole Sodium (Protonix) 40 mg DAILYAC 11/07/18 10:00 11/14/18 08:05 40 MG Piperacillin Sod/ Tazobactam Sod (Zosyn Per Pharmacy) 1 each PRN DAILY PRN 11/09/18 12:00 Piperacillin Sod/ Tazobactam Sod 2.25 gm/Sodium Chloride 50 ml @ 100 mls/hr Q8HRS 11/09/18 13:00 11/14/18 06:05 100 MLS/HR Simvastatin (Zocor) 20 mg HS 11/11/18 21:00 11/13/18 21:47 20 MG Sodium Chloride 1,000 ml @ 400 mls/hr Q2H30M PRN 11/13/18 11:00 11/13/18 19:02 DC Ticagrelor (Brilinta) 90 mg BID 11/07/18 10:00 11/14/18 09:02 90 MG Trazodone HCl (Desyrel) 100 mg PRN QHS PRN 11/07/18 09:15 11/13/18 21:32 100 MG Vancomycin HCl (Vanco Per Pharmacy) 1 each PRN DAILY PRN 11/09/18 12:00 11/13/18 12:56 1 EACH Vancomycin HCl (Vancomycin Random Level) 1 each 1X ONCE 11/13/18 05:00 11/13/18 05:01 DC 11/13/18 05:00 1 EACH Vancomycin HCl 500 mg/Sodium Chloride 100 ml @ 100 mls/hr QMWF 11/15/18 16:00 Vancomycin HCl 750 mg/Sodium Chloride 250 ml @ 250 mls/hr ONCE ONCE 11/13/18 16:00 11/13/18 16:59 DC 11/13/18 17:01 250 MLS/HR Vancomycin HCl 2 gm/Sodium Chloride 500 ml @ 250 mls/hr 1X ONCE 11/09/18 13:00 11/09/18 14:59 DC 11/09/18 13:00 250 MLS/HR Lab Laboratory Tests Test 11/13/18 20:43 11/14/18 07:21 Glucose (Fingerstick) 330 mg/dL (70-99) 135 mg/dL (70-99) Results All relevant outside records, renal labs, imaging studies, telemetry/EKG's were reviewed. REBECCA ANGLIN MD Nov 14, 2018 11:18
--- NOTE | 2018-11-14 11:20 | PDOC ---
PULMONARY PROGRESS NOTES Subjective ct in, sob better, has occ cough, NO SIG DRAINAGE Vitals Vital Signs Date Time Temp Pulse Resp B/P (MAP) Pulse Ox O2 Delivery O2 Flow Rate FiO2 11/14/18 09:08 72 124/58 11/14/18 08:35 96 Nasal Cannula 3.0 11/14/18 07:00 98.7 20 98.7 ROS: No Nausea, No Chest Pain, No Abdominal Pain, No Increase Cough General: Alert, No acute distress HEENT: Other (nc at perrl) Lungs: Other (DECREASE BS IN BASE, r ct) Cardiovascular: S1, S2 Abdomen: Soft, Non-tender Neuro Exam: Alert Extremities: Other (EDEMA) Skin: Warm Labs Laboratory Tests Test 11/12/18 11:27 11/12/18 16:43 11/12/18 20:41 11/13/18 06:45 Glucose (Fingerstick) 175 mg/dL (70-99) 129 mg/dL (70-99) 302 mg/dL (70-99) White Blood Count 6.7 x10^3/uL (4.0-11.0) Red Blood Count 2.97 x10^6/uL (4.30-5.70) Hemoglobin 8.3 g/dL (13.0-17.5) Hematocrit 25.9 % (39.0-53.0) Mean Corpuscular Volume 87 fL (79-100) Mean Corpuscular Hemoglobin 28 pg (25-35) Mean Corpuscular Hemoglobin Concent 32 g/dL (31-37) Red Cell Distribution Width 17.1 % (11.5-14.5) Platelet Count 215 x10^3/uL (140-400) Sodium Level 135 mmol/L (136-145) Potassium Level 5.3 mmol/L (3.5-5.1) Chloride Level 97 mmol/L (98-107) Carbon Dioxide Level 26 mmol/L (21-32) Anion Gap 12 (6-14) Blood Urea Nitrogen 80 mg/dL (8-26) Creatinine 7.8 mg/dL (0.7-1.3) Estimated GFR (Cockcroft-Gault) 7.2 Glucose Level 235 mg/dL (70-99) Calcium Level 8.4 mg/dL (8.5-10.1) Random Vancomycin Level 14.9 mcg/mL Test 11/13/18 07:24 11/13/18 20:43 11/14/18 07:21 Glucose (Fingerstick) 211 mg/dL (70-99) 330 mg/dL (70-99) 135 mg/dL (70-99) Laboratory Tests Test 11/13/18 20:43 11/14/18 07:21 Glucose (Fingerstick) 330 mg/dL (70-99) 135 mg/dL (70-99) Medications Active Scripts Medications Dose Route/Sig Max Daily Dose Days Date Category [place] 3 Fish Oil Softgel ([place]-3 Fatty Acids/Fish Oil) 1 Each Capsule.dr 1 Each PO DAILY 11/07/18 Reported Toprol Xl (Metoprolol Succinate) 25 Mg Tab.er.24h 0.5 Tab PO DAILY 11/07/18 Reported Lasix (Furosemide) 80 Mg Tablet 80 Mg PO DAILY 11/07/18 Reported Calcium Acetate 667 Mg Tablet 667 Mg PO TIDWMEALS 11/07/18 Reported Hydralazine Hcl 10 Mg Tablet 10 Mg PO TID MDD 1 10/04/18 Rx Amlodipine Besylate 10 Mg Tablet 10 Mg PO DAILY MDD 1 10/04/18 Rx Lisinopril 40 Mg Tablet 20 Mg PO DAILY MDD 1 10/04/18 Rx Tylenol (Acetaminophen) 325 Mg Tablet 650 Mg PO PRN Q6HRS 10/02/18 Reported Humalog (Insulin Lispro) 100 Unit/1 Ml Cartridge 6 Unit SQ TIDBFRMEAL 10/02/18 Reported Ferrous Sulfate 325 Mg Tablet 1 Tab PO DAILY 09/15/18 Reported Levothyroxine Sodium 175 Mcg Tablet 1 Tab PO DAILY 09/15/18 Reported Reglan (Metoclopramide Hcl) 10 Mg Tablet 5 Mg PO BIDAC 09/15/18 Reported [Pantoprazole] 40 MG Tablet.dr 40 Mg PO DAILYAC 30 09/09/18 Rx Trazodone Hcl 100 Mg Tablet 100 Mg PO PRN QHS PRN 30 09/09/18 Rx Lantus Solostar (Insulin Glargine,Hum.rec.anlog) 100 Unit/1 Ml Insuln.pen 15 Units SQ QHS 30 09/09/18 Rx Budesonide 0.5 Mg/2 Ml Ampul.neb 0.5 Mg NEB RTBID 30 08/29/18 Rx Aspirin 81 Mg Tab.chew 81 Mg PO DAILYWBKFT 30 08/29/18 Rx Carvedilol (Carvedilol) 3.125 Mg Tablet 3.125 Mg PO BIDWMEALS 30 08/29/18 Rx Duoneb 0.5-3(2.5) Mg/3 Ml (Albuterol/Ipratropium) 3 Ml Ampul.neb 3 Ml NEB RTQID 30 08/29/18 Rx Brilinta (Ticagrelor) 90 Mg Tablet 90 Mg PO BID 30 08/29/18 Rx Vitamin D2 (Ergocalciferol (Vitamin D2)) 50,000 Unit Capsule 50,000 Unit PO WEEKLY 04/02/18 Rx Dialyvite Tablet (Folic Acid/Vitamin B Comp W-C) 1 Each Tablet 1 Each PO 03/28/18 Reported Comments CXR 11/13 NO CHANGE IN ORGANIZED EFFUSION CT CHEST 11/13 1. A right pleural drain has been inserted with decrease in volume of the right pleural effusion and improved aeration of the right lung as described above. A small hydropneumothorax component is present anteriorly in the right lower chest. 2. Increase in volume of the moderate sized left pleural effusion with increasing atelectasis/infiltrate in the left base. 3. Mild mediastinal adenopathy has worsened slightly. Impression . 1. Acute on chronic hypoxemic respiratory failure. 2. Bilateral pleural effusions, Right greater than left. S/P RIGHT CHEST TUBE 3. End-stage renal disease, noncompliant with hemodialysis. 4. Hypertension. 5. Chronic obstructive pulmonary disease. 6. Tobacco dependent. 7. Coronary artery disease with previous stent placement. Plan . CT CHEST 11/13 WITH SMALL organized right effusion, tiny hydro-PTX, increase left effusion will remove right chest tube. No need for TPA via chest tube Monitor PTX by cxr in am FOLLOW UP ON ANALYSIS, exudate by protein criteria only/ cyto neg BD, ICS HD per nephro discussed WITH AND RN RANDI KEY MD Nov 14, 2018 11:20
--- NOTE | 2018-11-14 11:53 | PDOC ---
Infectious Disease Note Subjective Subjective Comfortable C/o RUE swelling since HD yesterday No fevers Breathing well ROS ROS o/w neg Vital Sign Vital Signs Vital Signs Date Time Temp Pulse Resp B/P (MAP) Pulse Ox O2 Delivery O2 Flow Rate FiO2 11/14/18 11:00 97.5 67 20 110/53 (72) 97 Room Air 97.5 11/14/18 08:35 3.0 Physical Exam PHYSICAL EXAM GENERAL: In chair. NAD and coop HEENT: Oral cavity clear NECK: Supple. LUNGS: Decreased breath sounds at the bases, + crackles. Right CT removed HEART: S1, S2. ABDOMEN: Soft, nontender. EXTREMITIES: RUE edema 1 plus. RUE fistula. No warmth/erythema SKIN: Warm, dry. No generalized rash. 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 appropriately Labs Lab Laboratory Tests Test 11/13/18 20:43 11/14/18 07:21 Glucose (Fingerstick) 330 mg/dL (70-99) 135 mg/dL (70-99) Micro Microbiology 11/09/18 Blood Culture - Preliminary, Resulted NO GROWTH AFTER 3 DAYS 11/09/18 Anaerobic/Aerobic Culture, Resulted Pending 11/09/18 Anaerobic Culture Result 1 (TERENCE), Resulted Pending 11/09/18 Aerobic Culture - Final, Resulted 11/09/18 Aerobic Culture Result 1 (TERENCE) - Final, Resulted 11/09/18 Gram Stain - Final, Resulted 11/09/18 Gram Stain Result 1 (TERENCE) - Final, Resulted 11/09/18 Gram Stain Result 2 (TERENCE) - Final, Resulted Objective Assessment Recurrent bilateral pleural effusion Rt > LT S/P thoracocentesis and Right CT placement. Cx NGTD 11/09 - ? transudative ESRD Abn CT Chest CAD s/p stent Tobaccoism Plan Plan of Care cont vanc and Zosyn renal dosing for now to po soon -awailt U/S findings Await U/S of RUE f/u cultures Probiotics cont supportive care D/w mother D/w nursing - HD nurse and renal have evaluated SHAHEEN LAZO MD Nov 14, 2018 11:53
--- NOTE | 2018-11-14 14:10 | RAD ---
Portable chest, 11/13/2018, 10:56 AM: HISTORY: Pleural effusion This exam is being presented for review on a delayed basis. Comparison is made to a study from 11/12/2018. A pleural drain remains in place in the right lower chest. Moderate pleural fluid and infiltrate in the right lower chest is unchanged. There is a moderate volume of persistent left-sided pleural fluid with mild underlying left basilar atelectasis. The heart size is unchanged. The pulmonary vascularity is normal. There is no radiographic evidence of significant pneumothorax. No new abnormality is detected. IMPRESSION: 1. Bilateral pleural effusions and underlying atelectasis/infiltrate, right greater than left, are unchanged since 11/12/2018. 2. No new abnormality is detected. Electronically signed by: Wicho Blake MD (11/14/2018 2:07 PM) [facility]
[2018-11-14 15:03] VITALS: BP 126/54
--- NOTE | 2018-11-14 15:27 | RAD ---
Right upper extremity venous ultrasound, 11/14/2018: HISTORY: Right arm swelling Duplex evaluation of the major veins in the right upper extremity was performed including grayscale, color-flow and spectral Doppler analysis. The right jugular vein is small and difficult to visualize. This may be related to prior interventions. Blood flow is evident in that vessel. The right subclavian, axillary and brachial veins are patent. There is a patent AV fistula in the right upper arm connecting to a patent cephalic vein. Patent brachial and basilic veins are present in the upper arm. A patent radial vein is identified. The ulnar vein could not be visualized. IMPRESSION: 1. Small, poorly visualized right jugular vein. 2. Patent AV shunt in the right upper arm utilizing the cephalic vein. 3. No DVT is identified in the right upper extremity. 4. Nonvisualization of the ulnar vein. Electronically signed by: Wicho Blake MD (11/14/2018 3:24 PM) [facility]
--- NOTE | 2018-11-14 15:53 | PDOC ---
PROGRESS NOTES Chief Complaint Chief Complaint hypoxia, large right pleural effusion ESRD, on HD Tuesday Anemia of ESRD Hypertension, controlled Diabetes- poorly controlled History of cardiac stents-chronic stable tobaccoism History of Present Illness History of Present Illness getting better chest tube still prod fluid cont current HD today Vitals Vitals Vital Signs Date Time Temp Pulse Resp B/P (MAP) Pulse Ox O2 Delivery O2 Flow Rate FiO2 11/14/18 15:03 97.9 70 18 126/54 (78) 93 Room Air 97.9 11/14/18 08:35 3.0 Physical Exam Physical Exam GENERAL: In chair. NAD and coop HEENT: Oral cavity clear NECK: Supple. LUNGS: Decreased breath sounds at the bases, + crackles. Right CT removed HEART: S1, S2. ABDOMEN: Soft, nontender. EXTREMITIES: RUE edema 1 plus. RUE fistula. No warmth/erythema SKIN: Warm, dry. No generalized rash. 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 Labs Laboratory Tests Test 11/12/18 16:43 11/12/18 20:41 11/13/18 06:45 11/13/18 07:24 Glucose (Fingerstick) 129 mg/dL (70-99) 302 mg/dL (70-99) 211 mg/dL (70-99) White Blood Count 6.7 x10^3/uL (4.0-11.0) Red Blood Count 2.97 x10^6/uL (4.30-5.70) Hemoglobin 8.3 g/dL (13.0-17.5) Hematocrit 25.9 % (39.0-53.0) Mean Corpuscular Volume 87 fL (79-100) Mean Corpuscular Hemoglobin 28 pg (25-35) Mean Corpuscular Hemoglobin Concent 32 g/dL (31-37) Red Cell Distribution Width 17.1 % (11.5-14.5) Platelet Count 215 x10^3/uL (140-400) Sodium Level 135 mmol/L (136-145) Potassium Level 5.3 mmol/L (3.5-5.1) Chloride Level 97 mmol/L (98-107) Carbon Dioxide Level 26 mmol/L (21-32) Anion Gap 12 (6-14) Blood Urea Nitrogen 80 mg/dL (8-26) Creatinine 7.8 mg/dL (0.7-1.3) Estimated GFR (Cockcroft-Gault) 7.2 Glucose Level 235 mg/dL (70-99) Calcium Level 8.4 mg/dL (8.5-10.1) Random Vancomycin Level 14.9 mcg/mL Test 11/13/18 20:43 11/14/18 07:21 Glucose (Fingerstick) 330 mg/dL (70-99) 135 mg/dL (70-99) Laboratory Tests Test 11/13/18 20:43 11/14/18 07:21 Glucose (Fingerstick) 330 mg/dL (70-99) 135 mg/dL (70-99) Microbiology 11/09/18 Blood Culture - Final, Complete NO GROWTH AFTER 5 DAYS 11/09/18 Anaerobic/Aerobic Culture - Final, Complete 11/09/18 Anaerobic Culture Result 1 (TERENCE) - Final, Complete 11/09/18 Aerobic Culture - Final, Complete 11/09/18 Aerobic Culture Result 1 (TERENCE) - Final, Complete 11/09/18 Gram Stain - Final, Complete 11/09/18 Gram Stain Result 1 (TERENCE) - Final, Complete 11/09/18 Gram Stain Result 2 (TERENCE) - Final, Complete Medications Current Medications Dextrose (Dextrose 50%-Water Syringe) 12.5 gm PRN Q15MIN PRN IV SEE COMMENTS; Start 11/07/18 at 03:30; Stop 11/07/18 at 07:42; Status DC Albuterol/ Ipratropium (Duoneb) 3 ml RTQID NEB Last administered on 11/14/18at 11:49; Start 11/07/18 at 08:00 Albuterol/ Ipratropium (Duoneb) 3 ml 1X ONCE NEB Last administered on at 05:50; Start 11/07/18 at 05:45; Stop 11/07/18 at 05:46; Status DC Albuterol Sulfate (Ventolin Neb Soln) 2.5 mg PRN Q4HRS PRN NEB SHORTNESS OF BREATH; Start 11/07/18 at 05:45 Furosemide (Lasix) 40 mg 1X ONCE IVP Last administered on 11/07/18at 05:49; Start 11/07/18 at 05:45; Stop 11/07/18 at 05:46; Status DC Insulin Human Lispro (HumaLOG) 20 units 1X ONCE SQ Last administered on at 07:58; Start 11/07/18 at 07:45; Stop 11/07/18 at 07:46; Status DC Insulin Human Lispro (HumaLOG) 0-7 UNITS TIDWMEALS SQ ; Start 11/07/18 at 12:00 ; Stop 11/07/18 at 12:00; Status DC Dextrose (Dextrose 50%-Water Syringe) 12.5 gm PRN Q15MIN PRN IV SEE COMMENTS; Start 11/07/18 at 07:45; Stop 11/07/18 at 09:06; Status DC Insulin Human Lispro (HumaLOG) 0-9 UNITS TIDWMEALS SQ Last administered on 11/09at 17:23; Start 11/07/18 at 09:30; Stop 11/09/18 at 22:40; Status DC Dextrose (Dextrose 50%-Water Syringe) 12.5 gm PRN Q15MIN PRN IV SEE COMMENTS; Start 11/07/18 at 09:15 Labetalol HCl (Normodyne Iv Push) 20 mg PRN Q2HR PRN IVP HYPERTENSION, SEE COMMENTS; Start 11/07/18 at 09:15 Acetaminophen (Tylenol) 650 mg PRN Q6HRS PRN PO MILD PAIN / TEMP; Start at 09:15 Amlodipine Besylate (Norvasc) 10 mg DAILY PO Last administered on 11/14/18at 09: 06; Start 11/07/18 at 10:00 Aspirin (Children'S Aspirin) 81 mg DAILYWBKFT PO Last administered on at 08:06; Start 11/07/18 at 10:00 Budesonide (Pulmicort) 0.5 mg RTBID NEB Last administered on 11/14/18 08:34; Start 11/07/18 at 10:00 Carvedilol (Coreg) 3.125 mg BIDWMEALS PO ; Start 11/07/18 at 10:00; Status Cancel Ergocalciferol (Vitamin D2) 50,000 unit WEEKLY PO Last administered on 09:08; Start 11/14/18 at 09:00 Ferrous Sulfate (Feosol) 325 mg DAILY PO Last administered on 11/14/18 09:04; Start 11/07/18 at 10:00 Furosemide (Lasix) 80 mg DAILY PO Last administered on 11/14/18 09:04; Start 11/07/18 at 10:00 Insulin Glargine (Lantus) 15 units QHS SQ Last administered on 11/13/18 21:48 ; Start 11/07/18 at 21:00 Levothyroxine Sodium (Synthroid) 175 mcg DAILY06 PO Last administered on 06:05; Start 11/07/18 at 10:00 Lisinopril (Prinivil) 20 mg DAILY PO Last administered on 11/14/18 09:06; Start 11/07/18 at 10:00 Metoclopramide HCl (Reglan) 5 mg BIDAC PO Last administered on 11/14/18 08:06 ; Start 11/07/18 at 10:00 Metoprolol Succinate (Toprol Xl) 12.5 mg DAILY PO Last administered on 09:08; Start 11/07/18 at 10:00 Ticagrelor (Brilinta) 90 mg BID PO Last administered on 11/14/18 09:02; Start 11/07/18 at 10:00 Trazodone HCl (Desyrel) 100 mg PRN QHS PRN PO INSOMNIA Last administered on 21:32; Start 11/07/18 at 09:15 Calcium Acetate (Phoslo) 667 mg TIDWMEALS PO Last administered on 11/14/18 11: 42; Start 11/07/18 at 12:00 Hydralazine HCl (Apresoline) 10 mg TID PO Last administered on 11/14/18 13:59 ; Start 11/07/18 at 14:00 Insulin Human Lispro (HumaLOG) 6 units TIDWMEALS SQ Last administered on at 11:45; Start 11/07/18 at 09:30; Stop 11/07/18 at 16:01; Status DC Fish Oil (Fish Oil) 1,000 mg DAILY PO Last administered on 11/14/18at 09:04; Start 11/07/18 at 10:00 Pantoprazole Sodium (Protonix) 40 mg DAILYAC PO Last administered on 11/14/18at 08:05; Start 11/07/18 at 10:00 Acetaminophen/ Hydrocodone Bitart (Lortab 5/325) 1 tab PRN Q4HRS PRN PO MODERATE - SEVERE PAIN Last administered on 11/14/18at 03:39; Start 11/07/18 at 09:15 Nicotine (Nicoderm Cq 21mg) 1 patch PRN DAILY PRN TD SMOKING CESSATION; Start 11/07/18 at 11:15 Dextrose (Dextrose 50%-Water Syringe) 25 gm STK-MED ONCE IV ; Start 11/07/18 at 15:09; Stop 11/07/18 at 15:10; Status DC Sodium Chloride 1,000 ml @ 1,000 mls/hr Q1H PRN IV hypotension; Start 11/07/18 at 16:10; Stop 11/07/18 at 22:09; Status DC Info (PHARMACY MONITORING -- do not chart) 1 each PRN DAILY PRN MC SEE COMMENTS ; Start 11/07/18 at 16:15; Status UNV Info (PHARMACY MONITORING -- do not chart) 1 each PRN DAILY PRN MC SEE COMMENTS ; Start 11/07/18 at 16:15; Stop 11/09/18 at 12:04; Status DC Sodium Chloride 1,000 ml @ 1,000 mls/hr Q1H PRN IV hypotension; Start 11/08/18 at 14:23; Stop 11/08/18 at 20:22; Status DC Sodium Chloride 1,000 ml @ 400 mls/hr Q2H30M PRN IV PATENCY; Start 11/08/18 at 14:23; Stop 11/09/18 at 02:22; Status DC Info (PHARMACY MONITORING -- do not chart) 1 each PRN DAILY PRN MC SEE COMMENTS ; Start 11/08/18 at 14:30 Iohexol (Omnipaque 300 Mg/ml) 75 ml 1X ONCE IV Last administered on 11/09/18at 07:40; Start 11/09/18 at 07:00; Stop 11/09/18 at 07:01; Status DC Piperacillin Sod/ Tazobactam Sod (Zosyn Per Pharmacy) 1 each PRN DAILY PRN MC SEE COMMENTS; Start 11/09/18 at 12:00 Vancomycin HCl (Vanco Per Pharmacy) 1 each PRN DAILY PRN MC SEE COMMENTS Last administered on 11/13/18at 12:56; Start 11/09/18 at 12:00 Piperacillin Sod/ Tazobactam Sod 2.25 gm/Sodium Chloride 50 ml @ 100 mls/hr Q8HRS IV Last administered on 11/14/18at 14:01; Start 11/09/18 at 13:00 Vancomycin HCl 2 gm/Sodium Chloride 500 ml @ 250 mls/hr 1X ONCE IV Last administered on 11/09/18at 13:00; Start 11/09/18 at 13:00; Stop 11/09/18 at 14:59 ; Status DC Fentanyl Citrate (Fentanyl 2ml Vial) 100 mcg STK-MED ONCE .ROUTE ; Start at 13:54; Stop 11/09/18 at 13:55; Status DC Fentanyl Citrate (Fentanyl 2ml Vial) 100 mcg 1X ONCE IV Last administered on at 14:15; Start 11/09/18 at 14:15; Stop 11/09/18 at 14:16; Status DC Hydralazine HCl (Apresoline) 10 mg STK-MED ONCE .ROUTE ; Start 11/07/18 at 09:00 ; Stop 11/09/18 at 15:36; Status DC Hydralazine HCl (Apresoline) 10 mg STK-MED ONCE .ROUTE ; Start 11/07/18 at 09:00 ; Stop 11/09/18 at 15:36; Status DC Hydralazine HCl (Apresoline) 10 mg STK-MED ONCE .ROUTE ; Start 11/08/18 at 09:00 ; Stop 11/09/18 at 15:37; Status DC Hydralazine HCl (Apresoline) 10 mg STK-MED ONCE .ROUTE ; Start 11/09/18 at 09:00 ; Stop 11/09/18 at 15:37; Status DC Hydralazine HCl (Apresoline) 10 mg STK-MED ONCE .ROUTE ; Start 11/09/18 at 09:00 ; Stop 11/09/18 at 15:37; Status DC Lactobacillus Rhamnosus (Culturelle) 1 cap BID PO Last administered on at 21:32; Start 11/09/18 at 21:00 Vancomycin HCl (Vancomycin Random Level) 1 each 1X ONCE MC ; Start 11/11/18 at 06:00; Stop 11/11/18 at 06:01; Status DC Insulin Human Lispro (HumaLOG) 0-9 UNITS QIDACHS SQ Last administered on at 11:41; Start 11/09/18 at 23:00 Insulin Human Lispro (HumaLOG) 20 units PRN QHS PRN SQ SEE COMMENTS Last administered on 11/11/18at 08:19; Start 11/09/18 at 22:30 Sodium Chloride 1,000 ml @ 1,000 mls/hr Q1H PRN IV hypotension; Start 11/10/18 at 11:47; Stop 11/10/18 at 17:46; Status DC Sodium Chloride 1,000 ml @ 400 mls/hr Q2H30M PRN IV PATENCY; Start 11/10/18 at 11:47; Stop 11/10/18 at 23:46; Status DC Info (PHARMACY MONITORING -- do not chart) 1 each PRN DAILY PRN MC SEE COMMENTS ; Start 11/10/18 at 12:00; Status UNV Insulin Human Lispro (HumaLOG) 20 units 1X ONCE SQ Last administered on at 08:28; Start 11/11/18 at 08:15; Stop 11/11/18 at 08:16; Status DC Simvastatin (Zocor) 20 mg HS PO Last administered on 11/13/18at 21:47; Start at 21:00 Vancomycin HCl (Vancomycin Random Level) 1 each 1X ONCE MC Last administered on 11/13/18at 05:00; Start 11/13/18 at 05:00; Stop 11/13/18 at 05:01; Status DC Vancomycin HCl 500 mg/Sodium Chloride 100 ml @ 100 mls/hr QMWF IV ; Start 11/15 at 16:00 Sodium Chloride 1,000 ml @ 1,000 mls/hr Q1H PRN IV hypotension; Start 11/13/18 at 11:00; Stop 11/13/18 at 19:02; Status DC Sodium Chloride 1,000 ml @ 400 mls/hr Q2H30M PRN IV PATENCY; Start 11/13/18 at 11:00; Stop 11/13/18 at 19:02; Status DC Info (PHARMACY MONITORING -- do not chart) 1 each PRN DAILY PRN MC SEE COMMENTS ; Start 11/13/18 at 11:15; Status UNV Info (PHARMACY MONITORING -- do not chart) 1 each PRN DAILY PRN MC SEE COMMENTS ; Start 11/13/18 at 11:15; Status UNV Vancomycin HCl 750 mg/Sodium Chloride 250 ml @ 250 mls/hr ONCE ONCE IV Last administered on 11/13/18at 17:01; Start 11/13/18 at 16:00; Stop 11/13/18 at 16:59 ; Status DC Active Scripts Active Hydralazine Hcl 10 Mg Tablet 10 Mg PO TID MDD 1 Amlodipine Besylate 10 Mg Tablet 10 Mg PO DAILY MDD 1 Lisinopril 40 Mg Tablet 20 Mg PO DAILY MDD 1 [Pantoprazole] 40 MG Tablet.dr 40 Mg PO DAILYAC 30 Days Trazodone Hcl 100 Mg Tablet 100 Mg PO PRN QHS PRN 30 Days Lantus Solostar (Insulin Glargine,Hum.rec.anlog) 100 Unit/1 Ml Insuln.pen 15 Units SQ QHS 30 Days Budesonide 0.5 Mg/2 Ml Ampul.neb 0.5 Mg NEB RTBID 30 Days Aspirin 81 Mg Tab.chew 81 Mg PO DAILYWBKFT 30 Days Carvedilol (Carvedilol) 3.125 Mg Tablet 3.125 Mg PO BIDWMEALS 30 Days Duoneb 0.5-3(2.5) Mg/3 Ml (Albuterol/Ipratropium) 3 Ml Ampul.neb 3 Ml NEB RTQID 30 Days Brilinta (Ticagrelor) 90 Mg Tablet 90 Mg PO BID 30 Days Vitamin D2 (Ergocalciferol (Vitamin D2)) 50,000 Unit Capsule 50,000 Unit PO WEEKLY Reported [place] 3 Fish Oil Softgel ([place]-3 Fatty Acids/Fish Oil) 1 Each Capsule. 1 Each PO DAILY Toprol Xl (Metoprolol Succinate) 25 Mg Tab.er.24h 0.5 Tab PO DAILY Lasix (Furosemide) 80 Mg Tablet 80 Mg PO DAILY Calcium Acetate 667 Mg Tablet 667 Mg PO TIDWMEALS Tylenol (Acetaminophen) 325 Mg Tablet 650 Mg PO PRN Q6HRS Humalog (Insulin Lispro) 100 Unit/1 Ml Cartridge 6 Unit SQ TIDBFRMEAL Ferrous Sulfate 325 Mg Tablet 1 Tab PO DAILY Levothyroxine Sodium 175 Mcg Tablet 1 Tab PO DAILY Reglan (Metoclopramide Hcl) 10 Mg Tablet 5 Mg PO BIDAC Dialyvite Tablet (Folic Acid/Vitamin B Comp W-C) 1 Each Tablet 1 Each PO Vitals/I & O Vital Sign - Last 24 Hours 11/13/18 11/13/18 11/13/18 11/13/18 16:16 16:57 16:57 16:58 Pulse 63 63 B/P (MAP) 148/67 148/67 Pulse Ox 95 95 O2 Delivery Nasal Cannula Room Air O2 Flow Rate 3.0 11/13/18 11/13/18 11/13/18 11/13/18 17:00 19:00 19:29 20:00 Temp 98.1 98.1 Pulse 63 90 Resp 18 B/P (MAP) 148/69 143/56 (85) Pulse Ox 92 95 O2 Delivery Nasal Cannula Room Air Room Air O2 Flow Rate 2.0 11/13/18 11/13/18 11/13/18 11/13/18 21:31 21:32 22:32 23:00 Temp 99.0 99.0 Pulse 90 90 Resp 18 18 18 B/P (MAP) 143/56 138/55 (82) Pulse Ox 95 95 94 O2 Delivery Nasal Cannula Room Air Nasal Cannula O2 Flow Rate 2.0 2.0 2.0 11/14/18 11/14/18 11/14/18 11/14/18 03:00 03:39 07:00 08:00 Temp 98.1 98.7 98.1 98.7 Pulse 89 72 Resp 18 18 20 B/P (MAP) 140/58 (85) 124/58 (80) Pulse Ox 94 94 98 O2 Delivery Nasal Cannula Room Air Nasal Cannula Room Air O2 Flow Rate 2.0 2.0 2.0 3.0 11/14/18 11/14/18 11/14/18 11/14/18 08:35 09:02 09:06 09:06 Pulse 72 72 72 B/P (MAP) 124/58 124/58 124/58 Pulse Ox 96 O2 Delivery Nasal Cannula O2 Flow Rate 3.0 11/14/18 11/14/18 11/14/18 11/14/18 09:08 11:00 13:59 15:03 Temp 97.5 97.9 97.5 97.9 Pulse 72 67 67 70 Resp 20 18 B/P (MAP) 124/58 110/53 (72) 110/53 126/54 (78) Pulse Ox 97 93 O2 Delivery Room Air Room Air Intake and Output 11/13/18 11/13/18 11/14/18 15:00 23:00 07:00 Intake Total 600 ml 560 ml 420 ml Balance 600 ml 560 ml 420 ml CORNELIO OATES MD Nov 14, 2018 15:53
[2018-11-14 19:00] VITALS: BP 128/56
[2018-11-14] MEDS: SIMVASTATIN 20 MG TABLET PO SCH (22:16)
[2018-11-14] MEDS: INSULIN GLARGINE 300 UNITS/3 ML INSULN.PEN. SQ SCH (22:21)
[2018-11-14 23:00] VITALS: BP 125/49
[2018-11-15 03:00] VITALS: BP 127/47
[2018-11-15] MEDS: PIPERACILLIN/TAZOBACTAM 2.25 GM in IV NORMAL SALINE 50ML 50 ML IV SCH (06:01)
[2018-11-15] MEDS: LEVOTHYROXINE 175 MCG TABLET PO SCH (06:01)
[2018-11-15 07:00] VITALS: BP 153/96
[2018-11-15] MEDS ORDERED: IV NORMAL SALINE 1000ML BAG 1,000 ML IV PRN ×2 (07:00)
[2018-11-15 07:27] LABS: CALCIUM 8.3 mg/dL (8.5-10.1); CREATININE 7.6 mg/dL (0.7-1.3); GFR 7.4; POTASSIUM 5.6 mmol/L (3.5-5.1)
[2018-11-15] MEDS: INSULIN LISPRO 300 UNITS/3 ML INSULN.PEN. SQ SCH ×2 (07:30→11:30)
[2018-11-15] MEDS: CALCIUM ACETATE 667 MG CAPSULE PO SCH ×2 (08:00→12:00)
[2018-11-15] MEDS: BUDESONIDE 0.5 MG/2 ML NEBU. NEB SCH (08:39)
[2018-11-15] MEDS: IPRATRPIUM/ALBUTEROL 0.5/2.5MG 3 ML NEBU. NEB SCH ×2 (08:39→11:54)
[2018-11-15] MEDS ORDERED: DIALYSIS PATIENT. MC PRN ×2 (09:00)
--- NOTE | 2018-11-15 09:13 | PDOC ---
Infectious Disease Note Subjective Subjective Comfortable C/o RUE swelling - some better today No fevers Breathing well Vital Sign Vital Signs Vital Signs Date Time Temp Pulse Resp B/P (MAP) Pulse Ox O2 Delivery O2 Flow Rate FiO2 11/15/18 08:41 99 Nasal Cannula 3.0 11/15/18 07:00 98.1 111 18 153/96 (115) 98.1 Physical Exam PHYSICAL EXAM GENERAL: In bed in HD NAD and coop HEENT: Oral cavity clear NECK: Supple. LUNGS: Decreased breath sounds at the bases HEART: S1, S2. ABDOMEN: Soft, nontender. EXTREMITIES: RUE edema trace. RUE fistula. No warmth/erythema SKIN: Warm, dry. No generalized rash. BINDERY TECHNICIAN: Very alert,, responds appropriately Labs Lab Laboratory Tests Test 11/14/18 10:43 11/14/18 16:55 11/14/18 20:26 11/15/18 06:37 Glucose (Fingerstick) 176 mg/dL (70-99) 173 mg/dL (70-99) 277 mg/dL (70-99) Sodium Level 137 mmol/L (136-145) Potassium Level 5.6 mmol/L (3.5-5.1) Chloride Level 99 mmol/L (98-107) Carbon Dioxide Level 27 mmol/L (21-32) Anion Gap 11 (6-14) Blood Urea Nitrogen 54 mg/dL (8-26) Creatinine 7.6 mg/dL (0.7-1.3) Estimated GFR (Cockcroft-Gault) 7.4 Glucose Level 214 mg/dL (70-99) Calcium Level 8.3 mg/dL (8.5-10.1) Micro Microbiology 11/09/18 Blood Culture - Preliminary, Resulted NO GROWTH AFTER 3 DAYS 11/09/18 Anaerobic/Aerobic Culture, Resulted Pending 11/09/18 Anaerobic Culture Result 1 (TERENCE), Resulted Pending 11/09/18 Aerobic Culture - Final, Resulted 11/09/18 Aerobic Culture Result 1 (TERENCE) - Final, Resulted 11/09/18 Gram Stain - Final, Resulted 11/09/18 Gram Stain Result 1 (TERENCE) - Final, Resulted 11/09/18 Gram Stain Result 2 (TERENCE) - Final, Resulted Objective Assessment Recurrent bilateral pleural effusion Rt > LT S/P thoracocentesis and Right CT placement. Cx NGTD 11/09 - ? transudative ESRD Abn CT Chest CAD s/p stent Tobaccoism RUE swelling better Plan Plan of Care D/cont vanc and Zosyn renal dosing for now to po soon -awailt U/S findings Begin Augmentin for 10 days f/u cultures Probiotics cont supportive care D/w D/w nursing - HD nurse Ok to d/c from ID standpoint F/u per Pulm ID to sign off SHAHEEN LAZO MD Nov 15, 2018 09:13
[2018-11-15] MEDS ORDERED: AMOXICILLIN/K CLAV 500/125MG TABLET. PO SCH (10:00)
[2018-11-15 11:00] VITALS: BP 122/69
--- NOTE | 2018-11-15 11:32 | PDOC ---
PULMONARY PROGRESS NOTES Subjective ct removed yesterday no dave Vitals Vital Signs Date Time Temp Pulse Resp B/P (MAP) Pulse Ox O2 Delivery O2 Flow Rate FiO2 11/15/18 11:00 98.2 82 122/69 (86) 98.2 11/15/18 08:41 99 Nasal Cannula 3.0 11/15/18 07:00 18 ROS: No Nausea, No Chest Pain, No Abdominal Pain, No Increase Cough General: Alert, No acute distress HEENT: Other (nc at perrl) Lungs: Other (DECREASE BS IN BASE, r ct) Cardiovascular: S1, S2 Abdomen: Soft, Non-tender Neuro Exam: Alert Extremities: Other ( RU edema) Skin: Warm Labs Laboratory Tests Test 11/13/18 16:33 11/13/18 20:43 11/14/18 07:21 11/14/18 10:43 Glucose (Fingerstick) 71 mg/dL (70-99) 330 mg/dL (70-99) 135 mg/dL (70-99) 176 mg/dL (70-99) Test 11/14/18 16:55 11/14/18 20:26 11/15/18 06:37 Glucose (Fingerstick) 173 mg/dL (70-99) 277 mg/dL (70-99) Sodium Level 137 mmol/L (136-145) Potassium Level 5.6 mmol/L (3.5-5.1) Chloride Level 99 mmol/L (98-107) Carbon Dioxide Level 27 mmol/L (21-32) Anion Gap 11 (6-14) Blood Urea Nitrogen 54 mg/dL (8-26) Creatinine 7.6 mg/dL (0.7-1.3) Estimated GFR (Cockcroft-Gault) 7.4 Glucose Level 214 mg/dL (70-99) Calcium Level 8.3 mg/dL (8.5-10.1) Laboratory Tests Test 11/14/18 16:55 11/14/18 20:26 11/15/18 06:37 Glucose (Fingerstick) 173 mg/dL (70-99) 277 mg/dL (70-99) Sodium Level 137 mmol/L (136-145) Potassium Level 5.6 mmol/L (3.5-5.1) Chloride Level 99 mmol/L (98-107) Carbon Dioxide Level 27 mmol/L (21-32) Anion Gap 11 (6-14) Blood Urea Nitrogen 54 mg/dL (8-26) Creatinine 7.6 mg/dL (0.7-1.3) Estimated GFR (Cockcroft-Gault) 7.4 Glucose Level 214 mg/dL (70-99) Calcium Level 8.3 mg/dL (8.5-10.1) Medications Active Scripts Medications Dose Route/Sig Max Daily Dose Days Date Category Lee 3 Fish Oil Softgel (Lee-3 Fatty Acids/Fish Oil) 1 Each Capsule.dr 1 Each PO DAILY 11/07/18 Reported Toprol Xl (Metoprolol Succinate) 25 Mg Tab.er.24h 0.5 Tab PO DAILY 11/07/18 Reported Lasix (Furosemide) 80 Mg Tablet 80 Mg PO DAILY 11/07/18 Reported Calcium Acetate 667 Mg Tablet 667 Mg PO TIDWMEALS 11/07/18 Reported Hydralazine Hcl 10 Mg Tablet 10 Mg PO TID MDD 1 10/04/18 Rx Amlodipine Besylate 10 Mg Tablet 10 Mg PO DAILY MDD 1 10/04/18 Rx Lisinopril 40 Mg Tablet 20 Mg PO DAILY MDD 10/04/18 Rx Tylenol (Acetaminophen) 325 Mg Tablet 650 Mg PO PRN Q6HRS 10/02/18 Reported Humalog (Insulin Lispro) 100 Unit/1 Ml Cartridge 6 Unit SQ TIDBFRMEAL 10/02/18 Reported Ferrous Sulfate 325 Mg Tablet 1 Tab PO DAILY 09/15/18 Reported Levothyroxine Sodium 175 Mcg Tablet 1 Tab PO DAILY 09/15/18 Reported Reglan (Metoclopramide Hcl) 10 Mg Tablet 5 Mg PO BIDAC 09/15/18 Reported [Pantoprazole] 40 MG Tablet.dr 40 Mg PO DAILYAC 30 09/09/18 Rx Trazodone Hcl 100 Mg Tablet 100 Mg PO PRN QHS PRN 30 09/09/18 Rx Lantus Solostar (Insulin Glargine,Hum.rec.anlog) 100 Unit/1 Ml Insuln.pen 15 Units SQ QHS 30 09/09/18 Rx Budesonide 0.5 Mg/2 Ml Ampul.neb 0.5 Mg NEB RTBID 30 08/29/18 Rx Aspirin 81 Mg Tab.chew 81 Mg PO DAILYWBKFT 30 08/29/18 Rx Carvedilol (Carvedilol) 3.125 Mg Tablet 3.125 Mg PO BIDWMEALS 30 08/29/18 Rx Duoneb 0.5-3(2.5) Mg/3 Ml (Albuterol/Ipratropium) 3 Ml Ampul.neb 3 Ml NEB RTQID 30 08/29/18 Rx Brilinta (Ticagrelor) 90 Mg Tablet 90 Mg PO BID 30 08/29/18 Rx Vitamin D2 (Ergocalciferol (Vitamin D2)) 50,000 Unit Capsule 50,000 Unit PO WEEKLY 04/02/18 Rx Dialyvite Tablet (Folic Acid/Vitamin B Comp W-C) 1 Each Tablet 1 Each PO 03/28/18 Reported Comments CXR 11/13 NO CHANGE IN ORGANIZED EFFUSION CT CHEST 11/13 1. A right pleural drain has been inserted with decrease in volume of the right pleural effusion and improved aeration of the right lung as described above. A small hydropneumothorax component is present anteriorly in the right lower chest. 2. Increase in volume of the moderate sized left pleural effusion with increasing atelectasis/infiltrate in the left base. 3. Mild mediastinal adenopathy has worsened slightly. Impression . 1. Acute on chronic hypoxemic respiratory failure. 2. Bilateral pleural effusions, Right greater than left. S/P RIGHT CHEST TUBE and removal 3. End-stage renal disease, noncompliant with hemodialysis. 4. Hypertension. 5. Chronic obstructive pulmonary disease. 6. Tobacco dependent. 7. Coronary artery disease with previous stent placement. 8. RU ext edema, no DVT Plan . CT CHEST 11/13 WITH SMALL organized right effusion, tiny hydro-PTX, increase left effusion S/P removal of right chest tube. Monitor PTX by cxr today. If stable , can go home FLUID ANALYSIS, exudate by protein criteria only/ cyto neg BD, ICS HD per nephro discussed WITH AND RN RANDI KEY MD Nov 15, 2018 11:32
[2018-11-15] MEDS: OMEGA-3 FATTY ACIDS/FISH OIL 1,000 MG CAPSULE. PO SCH (12:16)
[2018-11-15] MEDS: PANTOPRAZOLE 40 MG TABLET.DR. PO SCH (12:17)
[2018-11-15] MEDS: METOPROLOL SUCC 24HR ER 25 MG TAB.ER.24H. PO SCH (12:17)
[2018-11-15] MEDS: FUROSEMIDE 80 MG TABLET. PO SCH (12:17)
[2018-11-15] MEDS: METOCLOPRAMIDE 5 MG TABLET. PO SCH (12:17)
[2018-11-15] MEDS: LACTOBACILLUS RHAMNOSUS GG 1 CAPSULE. PO SCH (12:18)
[2018-11-15] MEDS: amLODIPine BESYLATE 10 MG TABLET PO SCH (12:18)
[2018-11-15] MEDS: ASPIRIN CHEWABLE 81 MG TABLET. PO SCH (12:18)
[2018-11-15] MEDS: TICAGRELOR 90 MG TABLET. PO SCH (12:18)
[2018-11-15] MEDS: FERROUS SULFATE 325 MG TABLET. PO SCH (12:18)
[2018-11-15] MEDS: hydrALAZINE 10 MG TABLET PO SCH ×2 (12:19→13:12)
[2018-11-15] MEDS: LISINOPRIL 20 MG TABLET PO SCH (12:19)
[2018-11-15] MEDS ORDERED: AMOX1TAB10 PO (12:49)
--- NOTE | 2018-11-15 12:50 | DISCH ---
DISCHARGE WITH HOME HEALTH DISCHARGE INFORMATION: Discharge Date: Nov 15, 2018 Condition on Discharge: Stable CODE STATUS: Code Status: Full HOME HEALTH: Face to Face: I certify this patient is under my care and that I, or a nurse practitioner or physician's account assistant working with me, had a face to face encounter that meets the physician face to face encounter requirements with this patient on []. Medical Complications: COPD, Other (ESRD, pleural effusion) Group Home For: Medication Management Physical Therapy For: Evalulation/Treatment Occupational Therapy For: Evaluation/Treatment POST DISCHARGE ORDERS: Activity Instructions for Disc: Activity as tolerated Weight Bearing Status after Di: Full weight bearing DIET AFTER DISCHARGE: Cardiac CHECKS AFTER DISCHARGE: Checks after discharge: Check blood press - daily, Check blood sugar, ac/hs, Check your Temp as needed, Weigh Yourself Daily FOLLOW-UP: Follow up with: primary care < 2 weeks TREATMENT/EQUIPMENT ORDERS: Adaptive Equipment Issued: None CERTIFICATION STATEMENT: Certification Statement: Certification Statement: Based on the above finding, I certify that this patient is confined to the home and needs intermittent intermediate care, physical therapy and/or speech therapy, or continues to need occupational therapy.~ This patient is under my care, and I have initiated the establishment of the plan of care.~ This patient will be followed by myself or a community physician who will periodically review the plan of care. Home Meds Active Scripts Amoxicillin/Potassium Clav (AMOX TR-K CLV 500-125 MG TAB) 1 Each Tablet, 1 TAB PO DAILY for COPD exacerbation, #9 TAB Prov:CORNELIO OATES MD 11/15/18 Hydralazine Hcl (HYDRALAZINE HCL) 10 Mg Tablet, 10 MG PO TID for htn MDD 1, #90 TAB Prov:KRYSTAL JASSO MD 10/04/18 Amlodipine Besylate (AMLODIPINE BESYLATE) 10 Mg Tablet, 10 MG PO DAILY for htn MDD 1, #30 TAB Prov:KRYSTAL JASSO MD 10/04/18 Lisinopril (LISINOPRIL) 40 Mg Tablet, 20 MG PO DAILY for htn MDD 1, #30 TAB Prov:KRYSTAL JASSO MD 10/04/18 [Pantoprazole] 40 MG TABLET.DR Villarreal Conflict Check, 40 MG PO DAILYAC for 30 Days, #30 2 Refills Prov:JIN ROBLES MD 09/09/18 Trazodone Hcl (TRAZODONE HCL) 100 Mg Tablet, 100 MG PO PRN QHS PRN for INSOMNIA for 30 Days, #30 TAB 1 Refill Prov:JIN ROBLES MD 09/09/18 Insulin Glargine,Hum.rec.anlog (LANTUS SOLOSTAR) 100 Unit/1 Ml Insuln.pen, 15 UNITS SQ QHS for DM for 30 Days, EACH Prov:JIN ROBLES MD 09/09/18 Budesonide (BUDESONIDE) 0.5 Mg/2 Ml Ampul.neb, 0.5 MG NEB RTBID for copd for 30 Days, #60 EACH Prov:PABLO SHERMAN MD 08/29/18 Aspirin (ASPIRIN) 81 Mg Tab.chew, 81 MG PO DAILYWBKFT for heart health for 30 Days, #30 TAB.CHEW Prov:PABLO SHERMAN MD 08/29/18 Carvedilol (CARVEDILOL ) 3.125 Mg Tablet, 3.125 MG PO BIDWMEALS for heart for 30 Days, #60 TAB Prov:PABLO SHERMAN MD 08/29/18 Ipratropium/Albuterol Sulfate (DUONEB 0.5-3(2.5) MG/3 ML) 3 Ml Ampul.neb, 3 ML NEB RTQID for copd for 30 Days, #120 EACH Prov:PABLO SHERMAN MD 08/29/18 Ticagrelor (BRILINTA) 90 Mg Tablet, 90 MG PO BID for heart stents for 30 Days, # 60 TAB Prov:PABLO SHERMAN MD 08/29/18 Ergocalciferol (Vitamin D2) (VITAMIN D2) 50,000 Unit Capsule, 74014 UNIT PO WEEKLY, #4 CAP Prov:JANNY ORELLANA MD 04/02/18 Reported Medications Sloan-3 Fatty Acids/Fish Oil (OMEGA 3 FISH OIL SOFTGEL) 1 Each Capsule.dr, 1 EACH PO DAILY for supplement, CAP 11/07/18 Metoprolol Succinate (TOPROL XL) 25 Mg Tab.er.24h, 0.5 TAB PO DAILY for HTN, # 30 TAB 5 Refills 11/07/18 Furosemide (LASIX) 80 Mg Tablet, 80 MG PO DAILY for fluid retention, TAB 11/07/18 Calcium Acetate (CALCIUM ACETATE) 667 Mg Tablet, 667 MG PO TIDWMEALS for DIALYSIS PATIENTS, CAP 11/07/18 Acetaminophen (TYLENOL) 325 Mg Tablet, 650 MG PO PRN Q6HRS for mild pain, TAB 10/02/18 Insulin Lispro (HUMALOG) 100 Unit/1 Ml Cartridge, 6 UNIT SQ TIDBFRMEAL for DM, EACH 10/02/18 Ferrous Sulfate (FERROUS SULFATE) 325 Mg Tablet, 1 TAB PO DAILY for Dialysis, # 30 TAB 3 Refills 09/15/18 Levothyroxine Sodium (LEVOTHYROXINE SODIUM) 175 Mcg Tablet, 1 TAB PO DAILY for hypothyroidism, #30 TAB 5 Refills 09/15/18 Metoclopramide Hcl (REGLAN) 10 Mg Tablet, 5 MG PO BIDAC for GERD, #60 TAB 0 Refills 09/15/18 Folic Acid/Vitamin B Comp W-C (DIALYVITE TABLET) 1 Each Tablet, 1 EACH PO, TAB 03/28/18 CORNELIO OATES MD Nov 15, 2018 12:50
--- NOTE | 2018-11-15 14:28 | PDOC ---
SUBJECTIVE ROS Seen on HD, no new concerns OBJECTIVE Vital Signs Vital Signs Date Time Temp Pulse Resp B/P (MAP) Pulse Ox O2 Delivery O2 Flow Rate FiO2 11/15/18 12:19 82 122/69 11/15/18 12:02 95 Room Air 1.0 11/15/18 11:00 98.2 98.2 11/15/18 07:00 18 I & 0 Intake and Output 11/15/18 07:00 Intake Total 1400 ml Balance 1400 ml Intake Oral 1350 ml IV Total 50 ml # Voids 5 # Bowel Movements 3 PHYSICAL EXAM Physical Exam GENERAL: NAD HEENT: Oral cavity moist NECK: Supple. LUNGS: Decreased breath sounds at the bases, + crackles. HEART: S1, S2. ABDOMEN: Soft, nontender. EXTREMITIES: No edema. RUE fistula, Bruit/Thrill + SKIN No generalized rash. DATABASE ANALYST: AxO x 3 DIAGNOSIS/ASSESSMENT Assessment & Plan ESRD- On HD MWF Seen seen on HD, tolerating well Continue as Ordered, dw biological inspector Acute on chronic hypoxemic respiratory failure- stable Bilateral pleural effusions, Right greater than left CXR 11/13 with no sig change. suspect organized effusion chest tube removed , Exudate, Cytology negative Rt arm swelling- better US Negative If swelling persists, vascular consult- r/o Stenosis No problems during HD as per biological inspector Hypertension- BP controlled Tobacco dependent. Coronary artery disease with previous stent placement Discussed a/p with Pt and US Rt UE- 1. Small, poorly visualized right jugular vein. 2. Patent AV shunt in the right upper arm utilizing the cephalic vein. 3. No DVT is identified in the right upper extremity. 4. Nonvisualization of the ulnar vein. COMMENT/RELEVANT DATA Meds Current Medications Medications (Trade) Dose Ordered Sig/Celi Start Time Stop Time Status Last Admin Dose Admin Acetaminophen (Tylenol) 650 mg PRN Q6HRS PRN 11/07/18 09:15 Acetaminophen/ Hydrocodone Bitart (Lortab 5/325) 1 tab PRN Q4HRS PRN 11/07/18 09:15 11/14/18 03:39 1 TAB Albuterol Sulfate (Ventolin Neb Soln) 2.5 mg PRN Q4HRS PRN 11/07/18 05:45 Albuterol/ Ipratropium (Duoneb) 3 ml 1X ONCE 11/07/18 05:45 11/07/18 05:46 DC 11/07/18 05:50 3 ML Amlodipine Besylate (Norvasc) 10 mg DAILY 11/07/18 10:00 11/15/18 12:18 10 MG Amoxicillin/ Clavulanate Potassium (Augmentin 500/ 125mg) 1 tab DAILY 11/15/18 10:00 11/15/18 12:16 1 TAB Aspirin (Children'S Aspirin) 81 mg DAILYWBKFT 11/07/18 10:00 11/15/18 12:18 81 MG Budesonide (Pulmicort) 0.5 mg RTBID 11/07/18 10:00 11/15/18 08:39 0.5 MG Calcium Acetate (Phoslo) 667 mg TIDWMEALS 11/07/18 12:00 11/15/18 12:00 667 MG Carvedilol (Coreg) 3.125 mg BIDWMEALS 11/07/18 10:00 Cancel Dextrose (Dextrose 50%-Water Syringe) 25 gm STK-MED ONCE 11/07/18 15:09 11/07/18 15:10 DC Ergocalciferol (Vitamin D2) 50,000 unit WEEKLY 11/14/18 09:00 11/14/18 09:08 50,000 UNIT Fentanyl Citrate (Fentanyl 2ml Vial) 100 mcg 1X ONCE 11/09/18 14:15 11/09/18 14:16 DC 11/09/18 14:15 50 MCG Ferrous Sulfate (Feosol) 325 mg DAILY 11/07/18 10:00 11/15/18 12:18 325 MG Fish Oil (Fish Oil) 1,000 mg DAILY 11/07/18 10:00 11/15/18 12:16 1,000 MG Furosemide (Lasix) 80 mg DAILY 11/07/18 10:00 11/15/18 12:17 80 MG Hydralazine HCl (Apresoline) 10 mg STK-MED ONCE 11/09/18 09:00 11/09/18 15:37 DC Info (PHARMACY MONITORING -- do not chart) 1 each PRN DAILY PRN 11/15/18 09:00 11/15/18 09:06 DC Insulin Glargine (Lantus) 15 units QHS 11/07/18 21:00 11/14/18 22:21 15 UNITS Insulin Human Lispro (HumaLOG) 20 units 1X ONCE 11/11/18 08:15 11/11/18 08:16 DC 11/11/18 08:28 20 UNITS Iohexol (Omnipaque 300 Mg/ml) 75 ml 1X ONCE 11/09/18 07:00 11/09/18 07:01 DC 11/09/18 07:40 75 ML Labetalol HCl (Normodyne Iv Push) 20 mg PRN Q2HR PRN 11/07/18 09:15 Lactobacillus Rhamnosus (Culturelle) 1 cap BID 11/09/18 21:00 11/15/18 12:18 1 CAP Levothyroxine Sodium (Synthroid) 175 mcg DAILY06 11/07/18 10:00 11/15/18 06:01 175 MCG Lisinopril (Prinivil) 20 mg DAILY 11/07/18 10:00 11/15/18 12:19 20 MG Metoclopramide HCl (Reglan) 5 mg BIDAC 11/07/18 10:00 11/15/18 12:17 5 MG Metoprolol Succinate (Toprol Xl) 12.5 mg DAILY 11/07/18 10:00 11/15/18 12:17 12.5 MG Nicotine (Nicoderm Cq 21mg) 1 patch PRN DAILY PRN 11/07/18 11:15 Pantoprazole Sodium (Protonix) 40 mg DAILYAC 11/07/18 10:00 11/15/18 12:17 40 MG Piperacillin Sod/ Tazobactam Sod (Zosyn Per Pharmacy) 1 each PRN DAILY PRN 11/09/18 12:00 11/15/18 09:11 DC Piperacillin Sod/ Tazobactam Sod 2.25 gm/Sodium Chloride 50 ml @ 100 mls/hr Q8HRS 11/09/18 13:00 11/15/18 09:11 DC 11/15/18 06:01 100 MLS/HR Simvastatin (Zocor) 20 mg HS 11/11/18 21:00 11/14/18 22:16 20 MG Sodium Chloride 1,000 ml @ 400 mls/hr Q2H30M PRN 11/15/18 07:00 11/15/18 18:59 Ticagrelor (Brilinta) 90 mg BID 11/07/18 10:00 11/15/18 12:18 90 MG Trazodone HCl (Desyrel) 100 mg PRN QHS PRN 11/07/18 09:15 11/13/18 21:32 100 MG Vancomycin HCl (Vanco Per Pharmacy) 1 each PRN DAILY PRN 11/09/18 12:00 11/15/18 09:11 DC 11/13/18 12:56 1 EACH Vancomycin HCl (Vancomycin Random Level) 1 each 1X ONCE 11/13/18 05:00 11/13/18 05:01 DC 11/13/18 05:00 1 EACH Vancomycin HCl 500 mg/Sodium Chloride 100 ml @ 100 mls/hr QMWF 11/15/18 16:00 11/15/18 16:00 DC Vancomycin HCl 750 mg/Sodium Chloride 250 ml @ 250 mls/hr ONCE ONCE 11/13/18 16:00 11/13/18 16:59 DC 11/13/18 17:01 250 MLS/HR Vancomycin HCl 2 gm/Sodium Chloride 500 ml @ 250 mls/hr 1X ONCE 11/09/18 13:00 11/09/18 14:59 DC 11/09/18 13:00 250 MLS/HR Lab Laboratory Tests Test 11/14/18 16:55 11/14/18 20:26 11/15/18 06:37 11/15/18 12:05 Glucose (Fingerstick) 173 mg/dL (70-99) 277 mg/dL (70-99) 101 mg/dL (70-99) Sodium Level 137 mmol/L (136-145) Potassium Level 5.6 mmol/L (3.5-5.1) Chloride Level 99 mmol/L (98-107) Carbon Dioxide Level 27 mmol/L (21-32) Anion Gap 11 (6-14) Blood Urea Nitrogen 54 mg/dL (8-26) Creatinine 7.6 mg/dL (0.7-1.3) Estimated GFR (Cockcroft-Gault) 7.4 Glucose Level 214 mg/dL (70-99) Calcium Level 8.3 mg/dL (8.5-10.1) Results All relevant outside records, renal labs, imaging studies, telemetry/EKG's were reviewed. REBECCA ANGLIN MD Nov 15, 2018 14:28
[2018-11-15 15:00] VITALS: BP 130/56
--- NOTE | 2018-11-15 15:48 | RAD ---
Portable chest, 11/15/2018: HISTORY: Follow-up pleural effusion, pneumothorax Comparison is made to yesterday's study. The right pleural drain has been removed. There are moderate sized ongoing bilateral pleural effusions. Moderate underlying atelectasis/infiltrate in the right lower chest has improved slightly. There is unchanged mild atelectasis in the left base. The upper lung magaña are clear. No significant pneumothorax is identified. No new abnormality is detected. IMPRESSION: 1. Ongoing moderate sized bilateral pleural effusions. 2. Moderate underlying atelectasis/infiltrate in the right lower chest has improved slightly. Electronically signed by: Wicho Blake MD (11/15/2018 3:45 PM) [facility]
--- NOTE | 2018-11-15 15:59 | PDOC3 ---
Discharge Summary Visit Information Date of Admission: Nov 07, 2018 Date of Discharge: Nov 15, 2018 Admitting Diagnosis: hypoxia Final Diagnosis hypoxia, large right pleural effusion acute on chronic diastolic CHF ESRD, on HD Tuesday Anemia of ESRD Hypertension, controlled Diabetes 2- poorly controlled History of cardiac stents-chronic stable tobaccoism Brief Hospital Course Allergies Allergies Coded Allergies Type Severity Reaction Last Updated Verified atorvastatin Allergy Intermediate "I go blind" 12/03/17 Yes Vital Signs Vital Signs Date Time Temp Pulse Resp B/P (MAP) Pulse Ox O2 Delivery O2 Flow Rate FiO2 11/15/18 15:00 98.5 73 17 130/56 (80) 96 98.5 11/15/18 12:02 Room Air 1.0 Lab Results Laboratory Tests Test 11/13/18 16:33 11/13/18 20:43 11/14/18 07:21 11/14/18 10:43 Glucose (Fingerstick) 71 mg/dL (70-99) 330 mg/dL (70-99) 135 mg/dL (70-99) 176 mg/dL (70-99) Test 11/14/18 16:55 11/14/18 20:26 11/15/18 06:37 11/15/18 12:05 Glucose (Fingerstick) 173 mg/dL (70-99) 277 mg/dL (70-99) 101 mg/dL (70-99) Sodium Level 137 mmol/L (136-145) Potassium Level 5.6 mmol/L (3.5-5.1) Chloride Level 99 mmol/L (98-107) Carbon Dioxide Level 27 mmol/L (21-32) Anion Gap 11 (6-14) Blood Urea Nitrogen 54 mg/dL (8-26) Creatinine 7.6 mg/dL (0.7-1.3) Estimated GFR (Cockcroft-Gault) 7.4 Glucose Level 214 mg/dL (70-99) Calcium Level 8.3 mg/dL (8.5-10.1) Laboratory Tests Test 11/14/18 16:55 11/14/18 20:26 11/15/18 06:37 11/15/18 12:05 Glucose (Fingerstick) 173 mg/dL (70-99) 277 mg/dL (70-99) 101 mg/dL (70-99) Sodium Level 137 mmol/L (136-145) Potassium Level 5.6 mmol/L (3.5-5.1) Chloride Level 99 mmol/L (98-107) Carbon Dioxide Level 27 mmol/L (21-32) Anion Gap 11 (6-14) Blood Urea Nitrogen 54 mg/dL (8-26) Creatinine 7.6 mg/dL (0.7-1.3) Estimated GFR (Cockcroft-Gault) 7.4 Glucose Level 214 mg/dL (70-99) Calcium Level 8.3 mg/dL (8.5-10.1) Brief Hospital Course Mr. Ochoa is a 58 old male, admit dyspena, had pleural effusion, req. chest tube abx, support cont Discharge Information Condition at Discharge: Improved Follow Up: Weeks Disposition/Orders: D/C to Home w/ HH Scheduled Acetaminophen (Tylenol) 325 Mg Tablet, 650 MG PO PRN Q6HRS for mild pain, ( Reported) Entered as Reported by: VICKY PATE on 10/02/18 1856 Last Action: Continued on 11/07/18902 by KRYSTAL JASSO Amlodipine Besylate (Amlodipine Besylate) 10 Mg Tablet, 10 MG PO DAILY for htn MDD 1, #30 Prescribed by: KRYSTAL JASSO on 10/04/18 1618 Last Action: Continued on 11/07/18902 by KRYSTAL JASSO Amoxicillin/Potassium Clav (Amox Tr-K Clv 500-125 Mg Tab) 1 Each Tablet, 1 TAB PO DAILY for COPD exacerbation, #9 Prescribed by: CORNELIO OATES on 11/15/18 1249 Aspirin (Aspirin) 81 Mg Tab.chew, 81 MG PO DAILYWBKFT for heart health for 30 Days, #30 Prescribed by: PABLO SHERMAN MD on 08/29/18 1346 Last Action: Continued on 11/07/18902 by KRYSTAL JASSO Budesonide (Budesonide) 0.5 Mg/2 Ml Ampul.neb, 0.5 MG NEB RTBID for copd for 30 Days, #60 Prescribed by: PABOL SHERMAN MD on 08/29/18 1346 Last Action: Continued on 11/07/18902 by KRYSTAL JASSO Calcium Acetate (Calcium Acetate) 667 Mg Tablet, 667 MG PO TIDWMEALS for DIALYSIS PATIENTS, (Reported) Entered as Reported by: KWABENA RODRIGUEZ on 11/07/18 0315 Last Action: Converted on 11/07/18902 by KRYSTAL JASSO Carvedilol (Carvedilol ) 3.125 Mg Tablet, 3.125 MG PO BIDWMEALS for heart for 30 Days, #60 Prescribed by: PABLO SHERMAN MD on 08/29/18 1346 Last Action: Continued on 11/07/18902 by KRYSTAL JASSO Ergocalciferol (Vitamin D2) (Vitamin D2) 50,000 Unit Capsule, 50,000 UNIT PO WEEKLY, #4 Prescribed by: JANNY ORELLANA MD on 04/02/18 1334 Last Action: Continued on 11/07/18902 by KRYSTAL JASSO Ferrous Sulfate (Ferrous Sulfate) 325 Mg Tablet, 1 TAB PO DAILY for Dialysis, # 30 Ref 3 (Reported) Entered as Reported by: MYNOR SIMON on 09/15/18 1159 Last Action: Continued on 11/07/18902 by KRYSTAL JASSO Furosemide (Lasix) 80 Mg Tablet, 80 MG PO DAILY for fluid retention, (Reported) Entered as Reported by: KWABENA RODRIGUEZ on 11/07/185 Last Action: Continued on 11/07/18902 by KRYSTAL JASSO Hydralazine Hcl (Hydralazine Hcl) 10 Mg Tablet, 10 MG PO TID for htn MDD 1, #90 Prescribed by: KRYSTAL JASSO on 10/04/18 1618 Last Action: Converted on 11/07/18902 by KRYSTAL JASSO Insulin Glargine,Hum.rec.anlog (Lantus Solostar) 100 Unit/1 Ml Insuln.pen, 15 UNITS SQ QHS for DM for 30 Days Prescribed by: JIN ROBLES MD on 09/09/18 1307 Last Action: Continued on 11/07/18902 by KRYSTAL JASSO Insulin Lispro (Humalog) 100 Unit/1 Ml Cartridge, 6 UNIT SQ TIDBFRMEAL for DM, ( Reported) Entered as Reported by: VICKY PATE on 10/02/18 1053 Last Action: Converted on 11/07/18902 by KRYSTAL JASSO Ipratropium/Albuterol Sulfate (Duoneb 0.5-3(2.5) Mg/3 Ml) 3 Ml Ampul.neb, 3 ML NEB RTQID for copd for 30 Days, #120 Prescribed by: PABLO SHERMAN MD on 08/29/18 1346 Last Action: Reviewed on 11/07/18902 by KRYSTAL JASSO Levothyroxine Sodium (Levothyroxine Sodium) 175 Mcg Tablet, 1 TAB PO DAILY for hypothyroidism, #30 Ref 5 (Reported) Entered as Reported by: MYNOR SIMON on 09/15/18 115 Last Action: Continued on 11/07/18902 by KRYSTAL JASSO Lisinopril (Lisinopril) 40 Mg Tablet, 20 MG PO DAILY for htn MDD 1, #30 Prescribed by: KRYSATL JASSO on 10/04/18 1618 Last Action: Continued on 11/07/18902 by KRYSTAL JASSO Metoclopramide Hcl (Reglan) 10 Mg Tablet, 5 MG PO BIDAC for GERD, #60 Ref 0 ( Reported) Entered as Reported by: MYNOR SIMON on 09/15/18 115 Last Action: Continued on 11/07/18902 by KRYSTAL JASSO Metoprolol Succinate (Toprol Xl) 25 Mg Tab.er.24h, 0.5 TAB PO DAILY for HTN, # 30 Ref 5 (Reported) Entered as Reported by: KWABENA RODRIGUEZ on 11/07/18314 Last Action: Continued on 11/07/18902 by KRYSTAL JASSO [place]-3 Fatty Acids/Fish Oil ([place] 3 Fish Oil Softgel) 1 Each Capsule.dr, 1 EACH PO DAILY for supplement, (Reported) Entered as Reported by: KWABENA RODRIGUEZ on 11/07/18314 Last Action: Converted on 11/07/18902 by KRYSTAL JASSO Ticagrelor (Brilinta) 90 Mg Tablet, 90 MG PO BID for heart stents for 30 Days, # 60 Prescribed by: PABLO SHERMAN MD on 08/29/18 1346 Last Action: Continued on 11/07/18902 by KRYSTAL JASSO [Pantoprazole] 40 MG TABLET.DR, 40 MG PO DAILYAC for 30 Days, #30 Ref 2 Prescribed by: JIN ROBLES MD on 09/09/18 1307 Last Action: Converted on 11/07/18902 by KRYSTAL JASSO Scheduled PRN Trazodone Hcl (Trazodone Hcl) 100 Mg Tablet, 100 MG PO PRN QHS PRN for INSOMNIA for 30 Days, #30 Ref 1 Prescribed by: JIN ROBLES MD on 09/09/181306 Last Action: Continued on 11/07/18902 by KRYSTAL JASSO Miscellaneous Medications Folic Acid/Vitamin B Comp W-C (Dialyvite Tablet) 1 Each Tablet, 1 EACH PO, ( Reported) Entered as Reported by: JOHNATHON HINTON on 03/28/18 1241 Patient Instructions Patient Instructions > 30 min face to face CORNELIO OATES MD Nov 15, 2018 15:59
[2018-11-15] MEDS ORDERED: VANCOMYCIN 500 MG in IV NORMAL SALINE 100ML 100 ML IV SCH (16:00)
[2019-04-02] MEDS ORDERED: INSU100I11 SQ (13:44)
[2019-04-25] MEDS ORDERED: CLOP75TA PO (10:46)
[2019-04-25] MEDS ORDERED: LEVO300T4 PO (10:48)
[2019-04-27] MEDS ORDERED: AZIT250T PO ×2 (15:44→15:45)
== END 2018-11-15 15:25 | disposition home health service (06) | DRG 291 ==
LOC: 5 NORTH 23:29
PROVIDERS: ADMIT Internal Medicine; ATTEND Internal Medicine
PROC: 5A1D70Z Performance of Urinary Filtration, Intermittent, Less than 6 Hours Per Day (ICD-10-PCS; principal; 2018-11-07)
PROC: 5A1D70Z Performance of Urinary Filtration, Intermittent, Less than 6 Hours Per Day (ICD-10-PCS; 2018-11-08)
PROC: 0W993ZZ Drainage of Right Pleural Cavity, Percutaneous Approach (ICD-10-PCS; 2018-11-08)
PROC: 0W9930Z Drainage of Right Pleural Cavity with Drainage Device, Percutaneous Approach (ICD-10-PCS; 2018-11-09)
PROC: 5A1D70Z Performance of Urinary Filtration, Intermittent, Less than 6 Hours Per Day (ICD-10-PCS; 2018-11-10)
PROC: 5A1D70Z Performance of Urinary Filtration, Intermittent, Less than 6 Hours Per Day (ICD-10-PCS; 2018-11-13)
PROC: 5A1D70Z Performance of Urinary Filtration, Intermittent, Less than 6 Hours Per Day (ICD-10-PCS; 2018-11-15)
DX: I13.2 Hypertensive heart and chronic kidney disease with heart failure and with stage 5 chronic kidney disease, or end stage renal disease (principal); J96.21 Acute and chronic respiratory failure with hypoxia; N18.6 End stage renal disease; I50.33 Acute on chronic diastolic (congestive) heart failure; Z99.2 Dependence on renal dialysis; Z95.5 Presence of coronary angioplasty implant and graft; Z91.19 Patient's noncompliance with other medical treatment and regimen; D63.1 Anemia in chronic kidney disease; E11.22 Type 2 diabetes mellitus with diabetic chronic kidney disease; J44.9 Chronic obstructive pulmonary disease, unspecified; E03.9 Hypothyroidism, unspecified; E78.5 Hyperlipidemia, unspecified; F17.210 Nicotine dependence, cigarettes, uncomplicated; I25.10 Atherosclerotic heart disease of native coronary artery without angina pectoris; E21.3 Hyperparathyroidism, unspecified; K21.9 Gastro-esophageal reflux disease without esophagitis; Z82.49 Family history of ischemic heart disease and other diseases of the circulatory system; Z91.15 Patient's noncompliance with renal dialysis; Z99.81 Dependence on supplemental oxygen; Z83.3 Family history of diabetes mellitus; Z88.8 Allergy status to other drugs, medicaments and biological substances
CPT/HCPCS: 32555; 32557; 36415; 71045; 71250; 71260; 80048; 80053; 80202; 82945; 82947; 82962; 83605; 83615; 83986; 84157; 85025; 85027; 85610; 85730; 87040; 87071; 87075; 87340; 87641; 88112; 88305; 89050; 93971; 94640; 94660; 94760; A4215; C1729; C1894; J1815; J1940; J2543; J3010; J3370; J7040; J7050; J7620; J7626; J8597; Q9967; G0378; J7030

== ENCOUNTER 2019-02-16 16:54 | Inpatient (IN) | payer MEDICARE ==
[~2019-02-16] VITALS: Ht 175.3 cm; Wt 92.1 kg
[~2019-02-16 16:54] MED LIST changes: +AMOX1TAB10 PO; +CALC667T4 PO; +FURO80TA72 PO; +METO25TA2 PO; +OMEG1CAP38 PO
[2019-02-16] MEDS ORDERED: methylPREDNISolone SOD SUCC PF 125 MG/2 ML VIAL. IV ONE (19:00)
[2019-02-16] MEDS ORDERED: LABETALOL 20 MG/4 ML DISP.SYRIN. IVP ONE (19:00)
[2019-02-16] MEDS ORDERED: IPRATRPIUM/ALBUTEROL 0.5/2.5MG 3 ML NEBU. NEB ONE (19:00)
--- NOTE | 2019-02-16 19:22 | PHYS DOC ---
Past Medical History Past Medical History: Diabetes-Type I, Heart Disease, Hypertension, Renal Failure Additional Past Medical Histor: CARDIAC ARREST DURING DIALYSIS 09/12 (SANDRINE ENGEL APRN) Past Surgical History: No Surgical History Additional Past Surgical Histo: AV SHUNT RUE, CARDIAC STENT (SANDRINE ENGEL APRN) Smoking: Cigarettes, 1 Pack Per Day Alcohol Use: Rarely Drug Use: None (SANDRINE ENGEL APRN) Adult General Chief Complaint Chief Complaint: SHORTNESS OF BREATH HPI HPI Patient is a 58 year old male presents with shortness of breath and upper back pain. Patient is on 4 L of oxygen at home at baseline. States he has being feeling short of breath for several weeks but it is getting worse. Has not tried any interventions at home. Pain 5 out of 10. Patient is not sure why he is on oxygen. Patient is a poor historian. (SANDRINE ENGEL APRN) Review of Systems Review of Systems Constitutional: Denies fever or chills [] Eyes: Denies change in visual acuity, redness, or eye pain [] HENT: Denies nasal congestion or sore throat [] Respiratory: Denies cough but reports shortness of breath [] Cardiovascular: No additional information not addressed in HPI [] GI: Denies abdominal pain, nausea, vomiting, bloody stools or diarrhea [] : Denies dysuria or hematuria [] Musculoskeletal: Reports back pain but denies joint pain [] Integument: Denies rash or skin lesions [] Neurologic: Denies headache, focal weakness or sensory changes [] Endocrine: Denies polyuria or polydipsia [] Complete systems were reviewed and found to be within normal limits, except as documented in this note. (SANDRINE ENGEL APRN) Current Medications Current Medications Current Medications Medications (Trade) Dose Ordered Sig/Celi Start Time Stop Time Status Last Admin Dose Admin Albuterol/ Ipratropium (Duoneb) 3 ml 1X ONCE 02/16/19 19:00 02/16/19 19:01 DC 02/16/19 19:19 3 ML Labetalol HCl (Normodyne Iv Push) 20 mg 1X ONCE 02/16/19 19:00 02/16/19 19:01 DC 02/16/19 19:13 20 MG Levofloxacin/ Dextrose 150 ml @ 100 mls/hr 1X ONCE 5/24/19 20:00 02/16/19 21:29 DC 02/16/19 22:45 100 MLS/HR Methylprednisolone Sodium Succinate (SOLU-Medrol 125MG VIAL) 125 mg 1X ONCE 02/16/19 19:00 02/16/19 19:01 DC 02/16/19 19:13 125 MG (LATOYA WHITLOCK MD) Physical Exam Physical Exam Constitutional: Well developed, well nourished, no acute distress, toxic appearance. [] HENT: Normocephalic, atraumatic, bilateral external ears normal, oropharynx moist, no oral exudates, nose normal. [] Eyes: PERRLA, EOMI, conjunctiva normal, no discharge. [] Neck: Normal range of motion, no tenderness, supple, no stridor. [] Cardiovascular:Heart rate regular rhythm, no murmur [] Lungs & Thorax: Bilateral breath have rhonchi and wheezing diffusely. Abdomen: Bowel sounds normal, soft, no tenderness, no masses, no pulsatile masses. [] Skin: Warm, dry, no erythema, no rash. [] Back: No tenderness, no CVA tenderness. [] Extremities: No tenderness, no cyanosis, no clubbing, ROM intact, no edema. [] Neurologic: Alert and oriented X 3, normal motor function, normal sensory function, no focal deficits noted. [] Psychologic: Affect normal, judgement normal, mood normal. [] (SANDRINE ENGEL APRN) Current Patient Data Vital Signs Vital Signs Date Time Temp Pulse Resp B/P (MAP) Pulse Ox O2 Delivery O2 Flow Rate FiO2 02/16/19 19:45 70 23 216/90 (132) 99 Nasal Cannula 4.0 02/16/19 18:03 97.9 97.9 (LATOYA WHITLOCK MD) Lab Values Laboratory Tests Test 02/16/19 18:34 White Blood Count 6.2 x10^3/uL (4.0-11.0) Red Blood Count 3.64 x10^6/uL (4.30-5.70) L Hemoglobin 10.6 g/dL (13.0-17.5) L Hematocrit 32.9 % (39.0-53.0) L Mean Corpuscular Volume 90 fL (79-100) Mean Corpuscular Hemoglobin 29 pg (25-35) Mean Corpuscular Hemoglobin Concent 32 g/dL (31-37) Red Cell Distribution Width 19.7 % (11.5-14.5) H Platelet Count 157 x10^3/uL (140-400) Neutrophils (%) (Auto) 59 % (31-73) Lymphocytes (%) (Auto) 26 % (24-48) Monocytes (%) (Auto) 7 % (0-9) Eosinophils (%) (Auto) 7 % (0-3) H Basophils (%) (Auto) 1 % (0-3) Neutrophils # (Auto) 3.6 x10^3uL (1.8-7.7) Lymphocytes # (Auto) 1.6 x10^3/uL (1.0-4.8) Monocytes # (Auto) 0.4 x10^3/uL (0.0-1.1) Eosinophils # (Auto) 0.4 x10^3/uL (0.0-0.7) Basophils # (Auto) 0.1 x10^3/uL (0.0-0.2) Prothrombin Time 12.6 SEC (11.7-14.0) Prothrombin Time INR 1.0 (0.8-1.1) Sodium Level 138 mmol/L (136-145) Potassium Level 3.4 mmol/L (3.5-5.1) L Chloride Level 99 mmol/L (98-107) Carbon Dioxide Level 29 mmol/L (21-32) Anion Gap 10 (6-14) Blood Urea Nitrogen 35 mg/dL (8-26) H Creatinine 6.2 mg/dL (0.7-1.3) H Estimated GFR (Cockcroft-Gault) 9.4 BUN/Creatinine Ratio 6 (6-20) Glucose Level 446 mg/dL (70-99) H Calcium Level 8.2 mg/dL (8.5-10.1) L Total Bilirubin 0.5 mg/dL (0.2-1.0) Aspartate Amino Transferase (AST) 25 U/L (15-37) Alanine Aminotransferase (ALT) 14 U/L (16-63) L Alkaline Phosphatase 120 U/L (46-116) H Troponin I Quantitative 0.062 ng/mL (0.000-0.055) PA-Oay-T-Type Natriuretic Peptide > 03118 pg/mL (0-124) H Total Protein 6.6 g/dL (6.4-8.2) Albumin 3.0 g/dL (3.4-5.0) L Albumin/Globulin Ratio 0.8 (1.0-1.7) L Laboratory Tests 02/16/19 18:34 Laboratory Tests 02/16/19 18:34 (LATOYA WHITLOCK MD) Lab Values Laboratory Tests Test 02/16/19 18:34 White Blood Count 6.2 x10^3/uL (4.0-11.0) Red Blood Count 3.64 x10^6/uL (4.30-5.70) L Hemoglobin 10.6 g/dL (13.0-17.5) L Hematocrit 32.9 % (39.0-53.0) L Mean Corpuscular Volume 90 fL (79-100) Mean Corpuscular Hemoglobin 29 pg (25-35) Mean Corpuscular Hemoglobin Concent 32 g/dL (31-37) Red Cell Distribution Width 19.7 % (11.5-14.5) H Platelet Count 157 x10^3/uL (140-400) Neutrophils (%) (Auto) 59 % (31-73) Lymphocytes (%) (Auto) 26 % (24-48) Monocytes (%) (Auto) 7 % (0-9) Eosinophils (%) (Auto) 7 % (0-3) H Basophils (%) (Auto) 1 % (0-3) Neutrophils # (Auto) 3.6 x10^3uL (1.8-7.7) Lymphocytes # (Auto) 1.6 x10^3/uL (1.0-4.8) Monocytes # (Auto) 0.4 x10^3/uL (0.0-1.1) Eosinophils # (Auto) 0.4 x10^3/uL (0.0-0.7) Basophils # (Auto) 0.1 x10^3/uL (0.0-0.2) Prothrombin Time 12.6 SEC (11.7-14.0) Prothrombin Time INR 1.0 (0.8-1.1) Sodium Level 138 mmol/L (136-145) Potassium Level 3.4 mmol/L (3.5-5.1) L Chloride Level 99 mmol/L (98-107) Carbon Dioxide Level 29 mmol/L (21-32) Anion Gap 10 (6-14) Blood Urea Nitrogen 35 mg/dL (8-26) H Creatinine 6.2 mg/dL (0.7-1.3) H Estimated GFR (Cockcroft-Gault) 9.4 BUN/Creatinine Ratio 6 (6-20) Glucose Level 446 mg/dL (70-99) H Calcium Level 8.2 mg/dL (8.5-10.1) L Total Bilirubin 0.5 mg/dL (0.2-1.0) Aspartate Amino Transferase (AST) 25 U/L (15-37) Alanine Aminotransferase (ALT) 14 U/L (16-63) L Alkaline Phosphatase 120 U/L (46-116) H Troponin I Quantitative 0.062 ng/mL (0.000-0.055) RB-Ibr-Z-Type Natriuretic Peptide > 28661 pg/mL (0-124) H Total Protein 6.6 g/dL (6.4-8.2) Albumin 3.0 g/dL (3.4-5.0) L Albumin/Globulin Ratio 0.8 (1.0-1.7) L Laboratory Tests 02/16/19 18:34 Laboratory Tests 02/16/19 18:34 (SANDRINE ENGEL APRN) EKG EKG EKG interpreted by Dr. Whitlock. HR 80 SInus Rhythm. NO STEMI.[] (SANDRINE ENGEL APRN) Radiology/Procedures Radiology/Procedures Prelim read by Dr. Whitlock Infiltrate to the LLL. RLL infiltrate. [] (SANDRINE ENGEL APRN) Course & Med Decision Making Course & Med Decision Making Pertinent Labs and Imaging studies reviewed. (See chart for details) Will order EKG, labs, chest xray, steroids, breathing treatment. Patient is agreeable. Patient has infiltrates. Will get lactic and cultures and [place] [address]. Troponin is 0.062. Will call Dr. Durbin for admission. Dr. Durbin agreed to admission. Will admit to CVC. (SANDRINE ENGEL APRN) Course & Med Decision Making This patient was seen by NENA. I did not see or evaluate the pt unless otherwise specified but I was available for consultation. (LATOYA WHITLOCK MD) Dragon Disclaimer Dragon Disclaimer This electronic medical record was generated, in whole or in part, using a voice recognition dictation system. (SANDRINE ENGEL APRN) Departure Departure Impression: Primary Impression: CHF exacerbation Additional Impression: Elevated troponin Disposition: ADMITTED INPATIENT Admitting Physician: Be Lantigua (SANDRINE ENGEL APRN) Condition: STABLE Referrals: SOLO NUNO MD (PCP) Problem Qualifiers Primary Impression: CHF exacerbation Heart failure type: unspecified Qualified Codes: I50.9 - Heart failure, unspecified SANDRINE ENGEL APRN February 16, 2019 19:22 LATOYA WHITLOCK MD February 17, 2019 00:37
[2019-02-16 19:41] LABS: BASO # 0.1 x10^3/uL (0.0-0.2); BASO % 1 % (0-3); EOS # 0.4 x10^3/uL (0.0-0.7); EOS % 7 % (0-3); HEMATOCRIT 32.9 % (39.0-53.0); HEMOGLOBIN 10.6 g/dL (13.0-17.5); LYMPH # 1.6 x10^3/uL (1.0-4.8); LYMPH % 26 % (24-48); MEAN CORPUSCULAR HEMOGLOBIN 29 pg (25-35); MEAN CORPUSCULAR HGB CONC 32 g/dL (31-37); MEAN CORPUSCULAR VOLUME 90 fL (79-100); MONO # 0.4 x10^3/uL (0.0-1.1); MONO % 7 % (0-9); NEUT # 3.6 x10^3uL (1.8-7.7); NEUT % 59 % (31-73); PLATELET COUNT 157 x10^3/uL (140-400); RED BLOOD COUNT 3.64 x10^6/uL (4.30-5.70); RED CELL DISTRIBUTION WIDTH 19.7 % (11.5-14.5); WHITE BLOOD COUNT 6.2 x10^3/uL (4.0-11.0)
[2019-02-16 19:48] LABS: CALCIUM 8.2 mg/dL (8.5-10.1); CREATININE 6.2 mg/dL (0.7-1.3); GFR 9.4; POTASSIUM 3.4 mmol/L (3.5-5.1)
[2019-02-16 19:52] LABS: PROTHROMBIN TIME PATIENT 12.6 SEC (11.7-14.0)
[2019-02-16 19:54] LABS: ALBUMIN/GLOBULIN RATIO 0.8 (1.0-1.7); TOTAL BILIRUBIN 0.5 mg/dL (0.2-1.0); TOTAL PROTEIN 6.6 g/dL (6.4-8.2)
[2019-02-16] MEDS ORDERED: FUROSEMIDE 40 MG/4 ML VIAL. IVP ONE ×2 (20:15→23:00)
--- NOTE | 2019-02-16 20:17 | RAD ---
CHEST PA LATERAL History: Shortness of breath Comparison: 11/15/2018 Findings: 2 views of the chest are submitted. There is now large left pleural effusion greater than previously with adjacent airspace opacity. There is similar degree of pleural-based opacity of the inferior lateral right hemithorax probably component of pleural fluid in combination with fibrotic change. There is no pneumothorax. There is a stent in the right axillary region. Pericardial cardiac silhouette is enlarged. Impression: 1. There is large left pleural effusion with adjacent atelectasis or infiltrate. There is a similar degree of opacity at the right lung base probably component of pleural fluid in combination with pleural parenchymal fibrotic change more similar in appearance. 2. There is again enlargement of the pericardial cardiac silhouette. Electronically signed by: Taye Bradshaw MD (02/16/2019 8:15 PM) [facility]
[2019-02-16] MEDS ORDERED: ONDANSETRON PF 4 MG/2 ML VIAL. IV PRN (20:30)
[2019-02-16] MEDS ORDERED: fentaNYL PF VIAL 100 MCG/2 ML VIAL IV PRN (20:30)
[2019-02-16 21:30] VITALS: BP 199/73
[2019-02-16 22:00] VITALS: BP 200/92
--- NOTE | 2019-02-16 22:00 | NUR ---
Pt. refused SCDs. This nurse explained to pt. their purpose and pt. still refused. Addendum: 02/17/19 at 0220 by VICKY WILKINS RN Amended: Links added.
--- NOTE | 2019-02-16 22:00 | NUR ---
When patient was asked about allergies, pt.'s stated he was not allergic to atorvastatin anymore and that pt. takes this medication for his cholesterol. This nurse deleted that allergy from pt.'s electronic record.
--- NOTE | 2019-02-16 22:01 | PDOC1 ---
History and Physical Date of Admission Date of Admission DATE: 02/16/19 TIME: 22:01 Identification/Chief Complaint Chief Complaint seen in ICU 58 year old male presents with shortness of breath and upper back pain. Patient is on 4 L of oxygen at home at baseline. States he has being feeling short of breath for several weeks but it is getting worse. Has not tried any interventions at home. Pain 5 out of 10 Past Medical History Past Medical History Past Medical History Past Medical History: Diabetes-Type I, Heart Disease, Hypertension, Renal Failure Additional Past Medical Histor: CARDIAC ARREST DURING DIALYSIS 09/12 Past Surgical History: No Surgical History Additional Past Surgical Histo: AV SHUNT RUE, CARDIAC STENT Smoking: Cigarettes, 1 Pack Per Day Alcohol Use: Rarely Drug Use: None family hx htn Cardiovascular: CAD, HTN, Hyperlipidemia Pulmonary: Other GI: GERD Heme/Onc: Anemia NOS Hepatobiliary: No pertinent hx Psych: No pertinent hx Rheumatologic: No pertinent hx Infectious disease: No pertinent hx Renal/: Chronic renal failure Endocrine: Diabetes, Hypothyroidism, Hyperparathyroidism Past Surgical History Past Surgical History: Other Family History Family History: Coronary Artery Disease, Diabetes, Hypertension Social History Smoke: 1 pack per day ALCOHOL: none Drugs: None Current Problem List Problem List Problems Medical Problems: (1) CHF exacerbation Status: Acute (2) Elevated troponin Status: Acute Current Medications Current Medications Current Medications Methylprednisolone Sodium Succinate (SOLU-Medrol 125MG VIAL) 125 mg 1X ONCE IV Last administered on 02/16/19at 19:13; Admin Dose 125 MG; Start 02/16/19 at 19:00; Stop 02/16/19 at 19:01; Status DC Albuterol/ Ipratropium (Duoneb) 3 ml 1X ONCE NEB Last administered on 02/16/19at 19:19; Admin Dose 3 ML; Start 02/16/19 at 19:00; Stop 02/16/19 at 19:01; Status DC Labetalol HCl (Normodyne Iv Push) 20 mg 1X ONCE IVP Last administered on 02/16/19at 19:13; Admin Dose 20 MG; Start 02/16/19 at 19:00; Stop 02/16/19 at 19:01; Status DC Levofloxacin/ Dextrose 150 ml @ 100 mls/hr 1X ONCE IV ; Start 02/16/19 at 20:00; Stop 02/16/19 at 21:29; Status DC Furosemide (Lasix) 40 mg 1X ONCE IVP Last administered on 02/16/19at 20:54; Admin Dose 40 MG; Start 02/16/19 at 20:15; Stop 02/16/19 at 20:16; Status DC Ondansetron HCl (Zofran) 4 mg PRN Q8HRS PRN IV NAUSEA/VOMITING 1ST CHOICE; Start 02/16/19 at 20:30; Stop 02/17/19 at 20:29 Fentanyl Citrate (Fentanyl 2ml Vial) 50 mcg PRN Q1HR PRN IV SEVERE PAIN; Start 02/16/19 at 20:30; Stop 02/17/19 at 20:29 Active Scripts Active Amox Tr-K Clv 500-125 Mg Tab (Amoxicillin/Potassium Clav) 1 Each Tablet 1 Tab PO DAILY Hydralazine Hcl 10 Mg Tablet 10 Mg PO TID MDD 1 Amlodipine Besylate 10 Mg Tablet 10 Mg PO DAILY MDD 1 Lisinopril 40 Mg Tablet 20 Mg PO DAILY MDD 1 [Pantoprazole] 40 MG Tablet.dr 40 Mg PO DAILYAC 30 Days Trazodone Hcl 100 Mg Tablet 100 Mg PO PRN QHS PRN 30 Days Lantus Solostar (Insulin Glargine,Hum.rec.anlog) 100 Unit/1 Ml Insuln.pen 15 Units SQ QHS 30 Days Budesonide 0.5 Mg/2 Ml Ampul.neb 0.5 Mg NEB RTBID 30 Days Aspirin 81 Mg Tab.chew 81 Mg PO DAILYWBKFT 30 Days Carvedilol (Carvedilol) 3.125 Mg Tablet 3.125 Mg PO BIDWMEALS 30 Days Duoneb 0.5-3(2.5) Mg/3 Ml (Albuterol/Ipratropium) 3 Ml Ampul.neb 3 Ml NEB RTQID 30 Days Brilinta (Ticagrelor) 90 Mg Tablet 90 Mg PO BID 30 Days Vitamin D2 (Ergocalciferol (Vitamin D2)) 50,000 Unit Capsule 50,000 Unit PO WEEKLY Reported [place] 3 Fish Oil Softgel ([place]-3 Fatty Acids/Fish Oil) 1 Each Capsule. 1 Each PO DAILY Toprol Xl (Metoprolol Succinate) 25 Mg Tab.er.24h 0.5 Tab PO DAILY Lasix (Furosemide) 80 Mg Tablet 80 Mg PO DAILY Calcium Acetate 667 Mg Tablet 667 Mg PO TIDWMEALS Tylenol (Acetaminophen) 325 Mg Tablet 650 Mg PO PRN Q6HRS Humalog (Insulin Lispro) 100 Unit/1 Ml Cartridge 6 Unit SQ TIDBFRMEAL Ferrous Sulfate 325 Mg Tablet 1 Tab PO DAILY Levothyroxine Sodium 175 Mcg Tablet 1 Tab PO DAILY Reglan (Metoclopramide Hcl) 10 Mg Tablet 5 Mg PO BIDAC Dialyvite Tablet (Folic Acid/Vitamin B Comp W-C) 1 Each Tablet 1 Each PO Allergies Allergies: Coded Allergies: atorvastatin (Verified Allergy, Intermediate, "I go blind", 12/03/17) ROS Review of System Review of Systems Review of Systems Constitutional: Denies fever or chills [] Eyes: Denies change in visual acuity, redness, or eye pain [] HENT: Denies nasal congestion or sore throat [] Respiratory: Denies cough but reports shortness of breath [] Cardiovascular: No additional information not addressed in HPI [] GI: Denies abdominal pain, nausea, vomiting, bloody stools or diarrhea [] : Denies dysuria or hematuria [] Musculoskeletal: Reports back pain but denies joint pain [] Integument: Denies rash or skin lesions [] Neurologic: Denies headache, focal weakness or sensory changes [] Endocrine: Denies polyuria or polydipsia [] 14 PT systems were reviewed and found to be within normal limits, except as documented PSYCHOLOGICAL ROS: YES: Anxiety Physical Exam Physical Exam Physical Exam Physical Exam Constitutional: Well developed, well nourished, MILD acute distress, toxic appearance. [] HENT: Normocephalic, atraumatic, bilateral external ears normal, oropharynx moist, no oral exudates, nose normal. [] Eyes: PERRLA, EOMI, conjunctiva normal, no discharge. [] Neck: Normal range of motion, no tenderness, supple, no stridor. [] Cardiovascular:Heart rate regular rhythm, no murmur [] Lungs & Thorax: Bilateral breath have rhonchi and wheezing diffusely. DEC IN BASES Abdomen: Bowel sounds normal, soft, no tenderness, no masses, no pulsatile masses. [] Skin: Warm, dry, no erythema, no rash. [] Back: No tenderness, no CVA tenderness. [] Extremities: No tenderness, no cyanosis, no clubbing, ROM intact, no edema. [] Neurologic: Alert and oriented X 3, normal motor function, normal sensory function, no focal deficits noted. [] Psychologic: Affect normal, judgement normal, mood normal. [] General: Alert, Oriented X3, Cooperative, mild distress HEENT: Atraumatic Breasts: Not examined Abdomen: Normal bowel sounds, Soft Rectal Exam: not examined Extremities: No cyanosis Neuro: Normal speech, Cranial nerves 3-12 NL Psych/Mental Status: Mental status NL, Mood NL Vitals Vitals Vital Signs Date Time Temp Pulse Resp B/P (MAP) Pulse Ox O2 Delivery O2 Flow Rate FiO2 02/16/19 21:30 73 22 199/73 (115) 99 Nasal Cannula 5.0 02/16/19 18:03 97.9 97.9 Labs Labs Laboratory Tests Test 02/16/19 18:34 02/16/19 21:00 02/16/19 21:54 White Blood Count 6.2 x10^3/uL (4.0-11.0) Red Blood Count 3.64 x10^6/uL (4.30-5.70) Hemoglobin 10.6 g/dL (13.0-17.5) Hematocrit 32.9 % (39.0-53.0) Mean Corpuscular Volume 90 fL (79-100) Mean Corpuscular Hemoglobin 29 pg (25-35) Mean Corpuscular Hemoglobin Concent 32 g/dL (31-37) Red Cell Distribution Width 19.7 % (11.5-14.5) Platelet Count 157 x10^3/uL (140-400) Neutrophils (%) (Auto) 59 % (31-73) Lymphocytes (%) (Auto) 26 % (24-48) Monocytes (%) (Auto) 7 % (0-9) Eosinophils (%) (Auto) 7 % (0-3) Basophils (%) (Auto) 1 % (0-3) Neutrophils # (Auto) 3.6 x10^3uL (1.8-7.7) Lymphocytes # (Auto) 1.6 x10^3/uL (1.0-4.8) Monocytes # (Auto) 0.4 x10^3/uL (0.0-1.1) Eosinophils # (Auto) 0.4 x10^3/uL (0.0-0.7) Basophils # (Auto) 0.1 x10^3/uL (0.0-0.2) Prothrombin Time 12.6 SEC (11.7-14.0) Prothromb Time International Ratio 1.0 (0.8-1.1) Sodium Level 138 mmol/L (136-145) Potassium Level 3.4 mmol/L (3.5-5.1) Chloride Level 99 mmol/L (98-107) Carbon Dioxide Level 29 mmol/L (21-32) Anion Gap 10 (6-14) Blood Urea Nitrogen 35 mg/dL (8-26) Creatinine 6.2 mg/dL (0.7-1.3) Estimated GFR (Cockcroft-Gault) 9.4 BUN/Creatinine Ratio 6 (6-20) Glucose Level 446 mg/dL (70-99) Calcium Level 8.2 mg/dL (8.5-10.1) Total Bilirubin 0.5 mg/dL (0.2-1.0) Aspartate Amino Transf (AST/SGOT) 25 U/L (15-37) Alanine Aminotransferase (ALT/SGPT) 14 U/L (16-63) Alkaline Phosphatase 120 U/L (46-116) Troponin I Quantitative 0.062 ng/mL (0.000-0.055) JE-Ovl-I-Type Natriuretic Peptide > 44254 pg/mL (0-124) Total Protein 6.6 g/dL (6.4-8.2) Albumin 3.0 g/dL (3.4-5.0) Albumin/Globulin Ratio 0.8 (1.0-1.7) Lactic Acid Level 0.8 mmol/L (0.4-2.0) Glucose (Fingerstick) 432 mg/dL (70-99) Laboratory Tests Test 02/16/19 18:34 02/16/19 21:00 02/16/19 21:54 White Blood Count 6.2 x10^3/uL (4.0-11.0) Red Blood Count 3.64 x10^6/uL (4.30-5.70) Hemoglobin 10.6 g/dL (13.0-17.5) Hematocrit 32.9 % (39.0-53.0) Mean Corpuscular Volume 90 fL (79-100) Mean Corpuscular Hemoglobin 29 pg (25-35) Mean Corpuscular Hemoglobin Concent 32 g/dL (31-37) Red Cell Distribution Width 19.7 % (11.5-14.5) Platelet Count 157 x10^3/uL (140-400) Neutrophils (%) (Auto) 59 % (31-73) Lymphocytes (%) (Auto) 26 % (24-48) Monocytes (%) (Auto) 7 % (0-9) Eosinophils (%) (Auto) 7 % (0-3) Basophils (%) (Auto) 1 % (0-3) Neutrophils # (Auto) 3.6 x10^3uL (1.8-7.7) Lymphocytes # (Auto) 1.6 x10^3/uL (1.0-4.8) Monocytes # (Auto) 0.4 x10^3/uL (0.0-1.1) Eosinophils # (Auto) 0.4 x10^3/uL (0.0-0.7) Basophils # (Auto) 0.1 x10^3/uL (0.0-0.2) Prothrombin Time 12.6 SEC (11.7-14.0) Prothromb Time International Ratio 1.0 (0.8-1.1) Sodium Level 138 mmol/L (136-145) Potassium Level 3.4 mmol/L (3.5-5.1) Chloride Level 99 mmol/L (98-107) Carbon Dioxide Level 29 mmol/L (21-32) Anion Gap 10 (6-14) Blood Urea Nitrogen 35 mg/dL (8-26) Creatinine 6.2 mg/dL (0.7-1.3) Estimated GFR (Cockcroft-Gault) 9.4 BUN/Creatinine Ratio 6 (6-20) Glucose Level 446 mg/dL (70-99) Calcium Level 8.2 mg/dL (8.5-10.1) Total Bilirubin 0.5 mg/dL (0.2-1.0) Aspartate Amino Transf (AST/SGOT) 25 U/L (15-37) Alanine Aminotransferase (ALT/SGPT) 14 U/L (16-63) Alkaline Phosphatase 120 U/L (46-116) Troponin I Quantitative 0.062 ng/mL (0.000-0.055) BT-Hso-U-Type Natriuretic Peptide > 81337 pg/mL (0-124) Total Protein 6.6 g/dL (6.4-8.2) Albumin 3.0 g/dL (3.4-5.0) Albumin/Globulin Ratio 0.8 (1.0-1.7) Lactic Acid Level 0.8 mmol/L (0.4-2.0) Glucose (Fingerstick) 432 mg/dL (70-99) Images Images CHEST PA LATERAL History: Shortness of breath Comparison: 11/15/2018 Findings: 2 views of the chest are submitted. There is now large left pleural effusion greater than previously with adjacent airspace opacity. There is similar degree of pleural-based opacity of the inferior lateral right hemithorax probably component of pleural fluid in combination with fibrotic change. There is no pneumothorax. There is a stent in the right axillary region. Pericardial cardiac silhouette is enlarged. Impression: 1. There is large left pleural effusion with adjacent atelectasis or infiltrate. There is a similar degree of opacity at the right lung base probably component of pleural fluid in combination with pleural parenchymal fibrotic change more similar in appearance. 2. There is again enlargement of the pericardial cardiac silhouette. Electronically signed by: Taye Bradshaw MD (02/16/2019 8:15 PM) [facility] VTE Prophylaxis Ordered VTE Prophylaxis Devices: No VTE Pharmacological Prophylaxi: Yes Assessment/Plan Assessment/Plan Impression: 1. large left pleural effusion with adjacent atelectasis or infiltrate. There is a similar degree of opacity at the right lung base probably component of pleural fluid in combination with pleural parenchymal fibrotic change 2. There is enlargement of the pericardial cardiac silhouette. 3. copd 4. ESRD ON DIALYSIS Tuesday 5. acute on chronic diastolic CHF 6.Anemia of ESRD 7. Hypertension, UNcontrolled 8.Diabetes 2- poorly controlled 9. History of cardiac stents- 10.tobacco ABUSE DISORDER PLAN ICU BED RENAL CONSULT PULM CONSULT IR FOR THORACENTESIS IN AM ECHO DUONEBS QID IV LASIX 80 MG X 1 NOW 43 MIN CC TIME PABLO SHERMAN MD February 16, 2019 22:01
[2019-02-16] MEDS ORDERED: DEXTROSE 50% 25 GM / 50ML DISP.SYRIN. IV PRN (22:15)
[2019-02-16] MEDS ORDERED: hydrALAZINE 20 MG/ML VIAL. IVP PRN ×2 (22:15→23:45)
[2019-02-16 22:30] VITALS: BP 197/87
[2019-02-16 23:00] VITALS: BP 181/76
[2019-02-16] MEDS ORDERED: ACETAMINOPHEN 325 MG TABLET. PO PRN (23:00)
[2019-02-16] MEDS ORDERED: ALBUTEROL SULFATE 2.5 MG/3 ML NEBU. NEB ONE ×2 (23:00)
[2019-02-16] MEDS ORDERED: INSULIN LISPRO 300 UNITS/3 ML INSULN.PEN. SQ ONE (23:00)
--- NOTE | 2019-02-16 23:24 | NUR ---
The patient, SEBASTIAN ANGULO, 58 y/o, M was admitted by PABLO SHERMAN MD. Pt arrived on unit at 2124 via bed by ED nurse. Pt. on 5L NC and was able to walk to his bed. Mariana at bedside. Pt. does not complain of any pain. Admission assessment done at this time. Bed at lowest setting, call light within reach. Will continue to monitor.
--- NOTE | 2019-02-16 23:42 | NUR ---
Pt.'s blood pressure has been elevated so far this evening. Pt. has been getting hydralazine IV, more orders given per Dr. Durbin as well as for his elevated blood sugar.
[2019-02-16] MEDS ORDERED: hydrALAZINE 20 MG/ML VIAL. IVP ONE (23:45)
[2019-02-17] VITALS (21 sets, daily range): BP systolic 146–194; BP diastolic 61–93
[2019-02-17] MEDS ORDERED: INSULIN LISPRO 300 UNITS/3 ML INSULN.PEN. SQ ONE ×4 (02:00→06:15)
[2019-02-17 05:10] LABS: BASO % 1 % (0-3); EOS % 0 % (0-3); HEMATOCRIT 33.3 % (39.0-53.0); HEMOGLOBIN 10.9 g/dL (13.0-17.5); LYMPH # 0.5 x10^3/uL (1.0-4.8); LYMPH % 11 % (24-48); MEAN CORPUSCULAR HEMOGLOBIN 29 pg (25-35); MEAN CORPUSCULAR HGB CONC 33 g/dL (31-37); MEAN CORPUSCULAR VOLUME 90 fL (79-100); MONO % 1 % (0-9); NEUT # 3.6 x10^3uL (1.8-7.7); NEUT % 87 % (31-73); PLATELET COUNT 170 x10^3/uL (140-400); RED CELL DISTRIBUTION WIDTH 19.3 % (11.5-14.5); WHITE BLOOD COUNT 4.2 x10^3/uL (4.0-11.0)
[2019-02-17 05:51] LABS: ALBUMIN 3.1 g/dL (3.4-5.0); ALBUMIN/GLOBULIN RATIO 0.8 (1.0-1.7); CREATININE 6.7 mg/dL (0.7-1.3); GFR 8.6; POTASSIUM 3.7 mmol/L (3.5-5.1); TOTAL BILIRUBIN 0.5 mg/dL (0.2-1.0); TOTAL PROTEIN 6.8 g/dL (6.4-8.2)
[2019-02-17] MEDS: METOCLOPRAMIDE 5 MG TABLET. PO SCH ×2 (06:10→17:49)
[2019-02-17] MEDS: LEVOTHYROXINE 175 MCG TABLET PO SCH (06:10)
[2019-02-17] MEDS: PANTOPRAZOLE 40 MG TABLET.DR. PO SCH (06:11)
--- NOTE | 2019-02-17 06:59 | PDOC2 ---
CARDIOLOGY CONSULT NOTE CHEIF COMPLAINT: Dyspnea HPI: 58 y.o male well known to us presenting with progressive dyspnea. Denies any chest pain. Found to have large left pleural effusion and over his dry weight. No other acute cardiac issues. He also has minimal trop elevation. He reports compliance with meds. PMHX: CAD s/p PCI HTN ESRD Recurrent pleural effusion Ischemic CMP - EF 40%. SOCHX: +Smoking 1/2 ppd FAMHX: NC CURRENT MEDS: Hydralazine 10 mg TID, Ticagrelor, metoprolol 12.5mg daily, lisinopril 20mg daily, amlodipine 10mg daily, asa ALLERGIES: Allergies Coded Allergies Type Severity Reaction Last Updated Verified No Known Drug Allergies 02/16/19 No ROS: As noted above in HPI. Otherwise, negative for 07/09 systems reviewed. PHYSICAL EXAM: Vital Signs: Vital Signs Date Time Temp Pulse Resp B/P (MAP) Pulse Ox O2 Delivery O2 Flow Rate FiO2 02/17/19 06:00 72 20 177/82 (113) Nasal Cannula 5.0 02/16/19 22:30 98 02/16/19 18:03 97.9 97.9 I & O Intake and Output 02/17/19 06:59 Intake Total 550 ml Output Total 100 ml Balance 450 ml Intake Oral 550 ml Output Urine Total 100 ml Physical Exam: GEN.: No apparent distress. Alert and oriented. HEENT: Head is normocephalic, atraumatic NECK: Supple. LUNGS: Left lung - severely decreased breath sounds. HEART: RRR, S1, S2 present. Peripheral pulses intact ABDOMEN: Soft, nontender. Positive bowel sounds. EXTREMITIES: Without any cyanosis. NEUROLOGIC: Normal speech, normal tone PSYCHIATRIC: Normal affect, normal mood. SKIN: No ulcerations DIAGNOSTIC TESTING: CXR with left sided pleural effusion. Trop 0.062 EKG pending Tele - SR ASSESSMENT: 1. Recurrent pleural effusions - likely due to chronic diastolic heart failure, ESRD 2. HTN 3. ESRD 4. DM2 - uncontrolled 5. CAD s/p PCI. PLAN: 1. Continue current meds. 2. Titrate up hydralazine prn for BP. He has had BP lability and therefore, previously have aimed for BP of 150/80, as otherwise, he gets profoundly hypotensive at HD. Continue to remove fluid with HD. 3. Consider L sided thoracentesis. 4. Elevated troponin due to above issues, low suspicion for cardiac ischemia. Discussed with patient and pulmonary team. Critically ill for a long time, poor prognosis. Thanks ASH VALERIO MD February 17, 2019 06:59
--- NOTE | 2019-02-17 07:10 | NUR ---
Pt. accepted livia magallanes to be on. SCDs were on for a couple of hours but now off. Addendum: 02/17/19 at 0710 by VICKY WILKINS RN Amended: Links added.
--- NOTE | 2019-02-17 07:19 | PDOC ---
Provider Note Provider Note [id number] acute on chronic resp fail acute sys diastolic chf copd w mild ae l thoracentesis by IR aggressive HD BRYAN NICOLE MD February 17, 2019 07:19
[2019-02-17] MEDS ORDERED: CALCIUM CARBONATE 500 MG TAB.CHEW PO PRN (07:30)
[2019-02-17] MEDS ORDERED: CARVEDILOL 3.125 MG TABLET. PO SCH (08:00)
[2019-02-17] MEDS: ASPIRIN CHEWABLE 81 MG TABLET. PO SCH ×2 (08:00→08:36)
[2019-02-17] MEDS ORDERED: ALBUTEROL SULFATE 2.5 MG/3 ML NEBU. NEB PRN (08:00)
--- NOTE | 2019-02-17 08:20 | CONS ---
DATE OF CONSULTATION: 02/17/2019 I was asked to see this 58-year-old gentleman for [id number] respiratory failure. HISTORY OF PRESENT ILLNESS: He has history of [id number] smoking, continues to smoke about half a pack per day. He is supposed to be on oxygen continuously, but he only uses it as needed and during sleep. He did have dialysis yesterday, but it was incomplete. He has had increased weight, increased lower extremity edema. He presented to the Emergency Room with increased shortness of breath. He has cough with sputum production. He has had wheezing. He denies chest pain. He has lower extremity edema. PAST MEDICAL HISTORY: Chronic respiratory failure, hypertension, COPD, diabetes mellitus, end-stage renal disease. ALLERGIES: No known drug allergies. MEDICATIONS: Currently, he is on insulin, fish oil, hydralazine, Toprol-XL, lisinopril, Norvasc, calcium, DuoNeb, Pulmicort, aspirin, Protonix. SOCIAL HISTORY: History of [id number] smoking, continues to smoke half a pack per day. FAMILY HISTORY: Hypertension. REVIEW OF SYSTEMS: As mentioned as above, all other systems otherwise negative. PHYSICAL EXAMINATION: GENERAL: This is an overweight gentleman. VITAL SIGNS: His O2 saturation on 5 liters of oxygen is 96%, respiratory rate 20, heart rate 72, blood pressure 177/82, temperature 98. HEENT: Normocephalic, atraumatic. Pupils equal, round, reactive to light. There is shallow oropharynx. Nose is clear. NECK: Positive JVD. No lymphadenopathy or thyromegaly. CARDIOVASCULAR: Regular rate and rhythm. Distant heart sounds. PMI is nondisplaced. CHEST: Inspection is normal. LUNGS: There are bibasilar crackles, few end-expiratory wheezing. Dullness at the bases on the right side, on the left side it is dull up to half a lung field on the back. ABDOMEN: Soft and obese. Bowel sounds are good. There is no mass. EXTREMITIES: There is edema. LYMPHATICS: There is no lymphadenopathy. NEUROLOGIC: Alert and oriented. SKIN: Chronic changes. LABORATORY DATA: I reviewed the following lab data: Chest x-ray shows bilateral infiltrate; increased vascular marking; bilateral effusion, left more than right, worse. INR is 1.2. WBC is 6.2, hemoglobin 10.6, platelets 157. Sodium 139, potassium 3.7, chloride 99, CO2 25, glucose 414, BUN 44, creatinine 6.7. Troponin 0.062. BNP more than 35,000. Lactic acid 0.8. IMPRESSION: 1. Ruula-[id number] respiratory failure secondary to acute diastolic and systolic congestive heart failure, mild acute exacerbation of chronic obstructive pulmonary disease versus others. 2. Abnormal chest x-ray as mentioned as above. 3. Coronary artery disease, status post percutaneous coronary intervention. 4. End-stage renal disease, on hemodialysis. 5. Hypertension. 6. Recurrent pleural effusion, suspect secondary to acute systolic and diastolic congestive heart failure. 7. Ischemic cardiomyopathy with ejection fraction of 40%. 8. Chronic obstructive pulmonary disease with mild acute exacerbation. 9. Anemia. 10. Tobacco habituation. PLAN AND RECOMMENDATIONS: 1. I had a long discussion with him regarding the smoking cessation. I have advised him to stop smoking forever. 2. I do recommend a left-sided thoracentesis, we will ask Interventional Radiology to do ultrasound-guided thoracentesis, it will be sent for cell count with differential, culture, cytology, total ADH, protein and glucose. We will do serum LDH, blood glucose and total protein at the same time. The risk and benefits of the procedure were discussed with the patient. He understood and agreed to proceed with the procedure. 3. Cardiology is on case. 4. He would require aggressive hemodialysis, currently is refusing hemodialysis. I have advised him to reconsider. 5. Monitor troponin. 6. Continue bronchodilator. 7. Continue inhaled corticosteroid, he may require systemic steroid. 8. Lower extremity venous Doppler. 9. 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 Thank you very much for allowing me to participate in care of this very nice gentleman. BRYAN NICOLE M.D. : [place] JOB#: [id number] / [id number] SARAH
--- NOTE | 2019-02-17 08:24 | RAD ---
LEFT LEG VENOUS DOPPLER STUDY: Clinical indications: Left leg edema and shortness of breath. Findings: Duplex sonography (including bills scale evaluation and color flow and waveform spectral analysis) of the proximal aspect of the greater saphenous vein and the proximal aspect of the profunda femoral vein and the entire length of the common femoral and superficial femoral and popliteal veins and the tibioperoneal trunk and the proximal aspect of the posterior tibial and peroneal veins of the left leg was performed. Normal compressibility, augmentation of color Doppler flow after calf compression, and respiratory variation of Doppler flow is seen. Thus, there are no sonographic findings of deep venous thrombosis within these veins. Impression: There are no sonographic findings of deep venous thrombosis within the veins discussed above of the left lower extremity. RIGHT LEG VENOUS DOPPLER STUDY: Clinical indications: Right leg edema and shortness of breath. Findings: Duplex sonography (including bills scale evaluation and color flow and waveform spectral analysis) of the proximal aspect of the greater saphenous vein and proximal aspect of the profunda femoral vein and the entire length of the common femoral and superficial femoral and popliteal veins and the tibioperoneal trunk and the proximal aspect of the posterior tibial and peroneal veins of the right leg was performed. Normal compressibility, augmentation of color Doppler flow after calf compression, and respiratory variation of Doppler flow is seen. Thus, there are no sonographic findings of deep venous thrombosis within these veins. Impression: There are no sonographic findings of deep venous thrombosis within the veins discussed above of the right lower extremity. Electronically signed by: Jean Manning MD (02/17/2019 8:21 AM) [facility]
[2019-02-17] MEDS: OMEGA-3 FATTY ACIDS/FISH OIL 1,000 MG CAPSULE. PO SCH (08:35)
[2019-02-17] MEDS: LISINOPRIL 20 MG TABLET PO SCH (08:36)
[2019-02-17] MEDS: METOPROLOL SUCC 24HR ER 25 MG TAB.ER.24H. PO SCH (08:36)
[2019-02-17] MEDS: MULTIVITAMIN with MINERAL TABLET. PO SCH (08:36)
[2019-02-17] MEDS: amLODIPine BESYLATE 10 MG TABLET PO SCH (08:36)
[2019-02-17] MEDS: CALCIUM ACETATE 667 MG CAPSULE PO SCH ×3 (08:36→17:49)
[2019-02-17] MEDS: hydrALAZINE 10 MG TABLET PO SCH ×3 (08:37→21:32)
[2019-02-17] MEDS: INSULIN LISPRO 300 UNITS/3 ML INSULN.PEN. SQ SCH ×6 (08:41→17:54)
[2019-02-17] MEDS: TICAGRELOR 90 MG TABLET. PO SCH ×2 (09:00→21:32)
[2019-02-17] MEDS ORDERED: FERROUS SULFATE 325 MG TABLET. PO SCH (09:00)
[2019-02-17] MEDS: IPRATRPIUM/ALBUTEROL 0.5/2.5MG 3 ML NEBU. NEB SCH ×4 (09:06→20:01)
[2019-02-17] MEDS: BUDESONIDE 0.5 MG/2 ML NEBU. NEB SCH ×2 (09:06→20:01)
[2019-02-17 11:06] LABS: % LYMPHS 10 % (24-48); % MONOS 1 % (0-10); % SEGS 89 % (35-66); PLT ESTIMATE ADEQUATE (ADEQUATE)
[2019-02-17 11:07] LABS: ANISOCYTOSIS SLIGHT; SCHISTOCYTES OCC
--- NOTE | 2019-02-17 11:14 | PDOC ---
[facility] [facility] PROGRESS NOTE Chief Complaint Chief Complaint Acute on chronic systolic and diastolic heart failure Large right pleural effusion Multifactorial respiratory failure CAD ESRD on dialysis Hypertension, UNcontrolled Diabetes 2- poorly controlled History of cardiac stents- tobacco ABUSE DISORDER History of Present Illness History of Present Illness Patient seen and examined in the intensive care unit I discussed the case with his and the nurse Patient is quite ill and short of breath awaiting thoracentesis has a large pleural effusion Vitals Vitals Vital Signs Date Time Temp Pulse Resp B/P (MAP) Pulse Ox O2 Delivery O2 Flow Rate FiO2 02/17/19 10:51 76 20 154/81 (105) 95 Room Air 02/17/19 09:09 4.0 02/17/19 07:39 97.9 97.9 Physical Exam General: Alert, Oriented X3, Cooperative, mild distress Heart: Regular rate, Normal S1, Normal S2, Other (S3 gallop) Lungs: Wheezing, Crackles, Other Abdomen: Normal bowel sounds, Soft Extremities: Other (1+ edema) Skin: No rashes, No breakdown Labs Labs: Laboratory Tests Test 02/16/19 18:34 02/16/19 21:00 02/16/19 21:54 02/16/19 23:54 White Blood Count 6.2 x10^3/uL (4.0-11.0) Red Blood Count 3.64 x10^6/uL (4.30-5.70) Hemoglobin 10.6 g/dL (13.0-17.5) Hematocrit 32.9 % (39.0-53.0) Mean Corpuscular Volume 90 fL (79-100) Mean Corpuscular Hemoglobin 29 pg (25-35) Mean Corpuscular Hemoglobin Concent 32 g/dL (31-37) Red Cell Distribution Width 19.7 % (11.5-14.5) Platelet Count 157 x10^3/uL (140-400) Neutrophils (%) (Auto) 59 % (31-73) Lymphocytes (%) (Auto) 26 % (24-48) Monocytes (%) (Auto) 7 % (0-9) Eosinophils (%) (Auto) 7 % (0-3) Basophils (%) (Auto) 1 % (0-3) Neutrophils # (Auto) 3.6 x10^3uL (1.8-7.7) Lymphocytes # (Auto) 1.6 x10^3/uL (1.0-4.8) Monocytes # (Auto) 0.4 x10^3/uL (0.0-1.1) Eosinophils # (Auto) 0.4 x10^3/uL (0.0-0.7) Basophils # (Auto) 0.1 x10^3/uL (0.0-0.2) Prothrombin Time 12.6 SEC (11.7-14.0) Prothromb Time International Ratio 1.0 (0.8-1.1) Sodium Level 138 mmol/L (136-145) Potassium Level 3.4 mmol/L (3.5-5.1) Chloride Level 99 mmol/L (98-107) Carbon Dioxide Level 29 mmol/L (21-32) Anion Gap 10 (6-14) Blood Urea Nitrogen 35 mg/dL (8-26) Creatinine 6.2 mg/dL (0.7-1.3) Estimated GFR (Cockcroft-Gault) 9.4 BUN/Creatinine Ratio 6 (6-20) Glucose Level 446 mg/dL (70-99) Calcium Level 8.2 mg/dL (8.5-10.1) Total Bilirubin 0.5 mg/dL (0.2-1.0) Aspartate Amino Transf (AST/SGOT) 25 U/L (15-37) Alanine Aminotransferase (ALT/SGPT) 14 U/L (16-63) Alkaline Phosphatase 120 U/L (46-116) Troponin I Quantitative 0.062 ng/mL (0.000-0.055) VL-Qei-B-Type Natriuretic Peptide > 73318 pg/mL (0-124) Total Protein 6.6 g/dL (6.4-8.2) Albumin 3.0 g/dL (3.4-5.0) Albumin/Globulin Ratio 0.8 (1.0-1.7) Lactic Acid Level 0.8 mmol/L (0.4-2.0) Glucose (Fingerstick) 432 mg/dL (70-99) 455 mg/dL (70-99) Test 02/17/19 01:30 02/17/19 03:11 02/17/19 04:30 02/17/19 04:34 Glucose (Fingerstick) 413 mg/dL (70-99) 399 mg/dL (70-99) 359 mg/dL (70-99) White Blood Count 4.2 x10^3/uL (4.0-11.0) Red Blood Count 3.70 x10^6/uL (4.30-5.70) Hemoglobin 10.9 g/dL (13.0-17.5) Hematocrit 33.3 % (39.0-53.0) Mean Corpuscular Volume 90 fL (79-100) Mean Corpuscular Hemoglobin 29 pg (25-35) Mean Corpuscular Hemoglobin Concent 33 g/dL (31-37) Red Cell Distribution Width 19.3 % (11.5-14.5) Platelet Count 170 x10^3/uL (140-400) Neutrophils (%) (Auto) 87 % (31-73) Lymphocytes (%) (Auto) 11 % (24-48) Monocytes (%) (Auto) 1 % (0-9) Eosinophils (%) (Auto) 0 % (0-3) Basophils (%) (Auto) 1 % (0-3) Neutrophils # (Auto) 3.6 x10^3uL (1.8-7.7) Lymphocytes # (Auto) 0.5 x10^3/uL (1.0-4.8) Monocytes # (Auto) 0.0 x10^3/uL (0.0-1.1) Eosinophils # (Auto) 0.0 x10^3/uL (0.0-0.7) Basophils # (Auto) 0.0 x10^3/uL (0.0-0.2) Segmented Neutrophils % 89 % (35-66) Lymphocytes % 10 % (24-48) Monocytes % 1 % (0-10) Platelet Estimate Adequate (ADEQUATE) Anisocytosis Slight Schistocytes Occ Sodium Level 139 mmol/L (136-145) Potassium Level 3.7 mmol/L (3.5-5.1) Chloride Level 99 mmol/L (98-107) Carbon Dioxide Level 25 mmol/L (21-32) Anion Gap 15 (6-14) Blood Urea Nitrogen 44 mg/dL (8-26) Creatinine 6.7 mg/dL (0.7-1.3) Estimated GFR (Cockcroft-Gault) 8.6 BUN/Creatinine Ratio 7 (6-20) Glucose Level 414 mg/dL (70-99) Calcium Level 9.0 mg/dL (8.5-10.1) Total Bilirubin 0.5 mg/dL (0.2-1.0) Aspartate Amino Transf (AST/SGOT) 23 U/L (15-37) Alanine Aminotransferase (ALT/SGPT) 15 U/L (16-63) Alkaline Phosphatase 115 U/L (46-116) Lactate Dehydrogenase 249 U/L (85-227) Total Protein 6.8 g/dL (6.4-8.2) Albumin 3.1 g/dL (3.4-5.0) Albumin/Globulin Ratio 0.8 (1.0-1.7) Test 02/17/19 07:38 Glucose (Fingerstick) 271 mg/dL (70-99) Review of Systems Review of Systems Complains of shortness of breath and weakness Assessment and Plan Assessmemt and Plan Problems Medical Problems: (1) CHF exacerbation Status: Acute (2) Elevated troponin Status: Acute Acute on chronic systolic and diastolic heart failure Large right pleural effusion Multifactorial respiratory failure CAD ESRD on dialysis Hypertension, UNcontrolled Diabetes 2- poorly controlled History of cardiac stents- tobacco ABUSE DISORDER Plan ICU monitoring Thoracentesis IV Lasix DVT prophylaxis Full code Dialysis Tuesday Home meds Frequent labs Pulmonary is following Prognosis guarded This is a critically ill patient Total time 32 minutes Comment Review of Relevant I have reviewed the following items yesenia (where applicable) has been applied. Labs Laboratory Tests Test 02/16/19 18:34 02/16/19 21:00 02/16/19 21:54 02/16/19 23:54 White Blood Count 6.2 x10^3/uL (4.0-11.0) Red Blood Count 3.64 x10^6/uL (4.30-5.70) Hemoglobin 10.6 g/dL (13.0-17.5) Hematocrit 32.9 % (39.0-53.0) Mean Corpuscular Volume 90 fL (79-100) Mean Corpuscular Hemoglobin 29 pg (25-35) Mean Corpuscular Hemoglobin Concent 32 g/dL (31-37) Red Cell Distribution Width 19.7 % (11.5-14.5) Platelet Count 157 x10^3/uL (140-400) Neutrophils (%) (Auto) 59 % (31-73) Lymphocytes (%) (Auto) 26 % (24-48) Monocytes (%) (Auto) 7 % (0-9) Eosinophils (%) (Auto) 7 % (0-3) Basophils (%) (Auto) 1 % (0-3) Neutrophils # (Auto) 3.6 x10^3uL (1.8-7.7) Lymphocytes # (Auto) 1.6 x10^3/uL (1.0-4.8) Monocytes # (Auto) 0.4 x10^3/uL (0.0-1.1) Eosinophils # (Auto) 0.4 x10^3/uL (0.0-0.7) Basophils # (Auto) 0.1 x10^3/uL (0.0-0.2) Prothrombin Time 12.6 SEC (11.7-14.0) Prothromb Time International Ratio 1.0 (0.8-1.1) Sodium Level 138 mmol/L (136-145) Potassium Level 3.4 mmol/L (3.5-5.1) Chloride Level 99 mmol/L (98-107) Carbon Dioxide Level 29 mmol/L (21-32) Anion Gap 10 (6-14) Blood Urea Nitrogen 35 mg/dL (8-26) Creatinine 6.2 mg/dL (0.7-1.3) Estimated GFR (Cockcroft-Gault) 9.4 BUN/Creatinine Ratio 6 (6-20) Glucose Level 446 mg/dL (70-99) Calcium Level 8.2 mg/dL (8.5-10.1) Total Bilirubin 0.5 mg/dL (0.2-1.0) Aspartate Amino Transf (AST/SGOT) 25 U/L (15-37) Alanine Aminotransferase (ALT/SGPT) 14 U/L (16-63) Alkaline Phosphatase 120 U/L (46-116) Troponin I Quantitative 0.062 ng/mL (0.000-0.055) HZ-Qcz-B-Type Natriuretic Peptide > 71575 pg/mL (0-124) Total Protein 6.6 g/dL (6.4-8.2) Albumin 3.0 g/dL (3.4-5.0) Albumin/Globulin Ratio 0.8 (1.0-1.7) Lactic Acid Level 0.8 mmol/L (0.4-2.0) Glucose (Fingerstick) 432 mg/dL (70-99) 455 mg/dL (70-99) Test 02/17/19 01:30 02/17/19 03:11 02/17/19 04:30 02/17/19 04:34 Glucose (Fingerstick) 413 mg/dL (70-99) 399 mg/dL (70-99) 359 mg/dL (70-99) White Blood Count 4.2 x10^3/uL (4.0-11.0) Red Blood Count 3.70 x10^6/uL (4.30-5.70) Hemoglobin 10.9 g/dL (13.0-17.5) Hematocrit 33.3 % (39.0-53.0) Mean Corpuscular Volume 90 fL (79-100) Mean Corpuscular Hemoglobin 29 pg (25-35) Mean Corpuscular Hemoglobin Concent 33 g/dL (31-37) Red Cell Distribution Width 19.3 % (11.5-14.5) Platelet Count 170 x10^3/uL (140-400) Neutrophils (%) (Auto) 87 % (31-73) Lymphocytes (%) (Auto) 11 % (24-48) Monocytes (%) (Auto) 1 % (0-9) Eosinophils (%) (Auto) 0 % (0-3) Basophils (%) (Auto) 1 % (0-3) Neutrophils # (Auto) 3.6 x10^3uL (1.8-7.7) Lymphocytes # (Auto) 0.5 x10^3/uL (1.0-4.8) Monocytes # (Auto) 0.0 x10^3/uL (0.0-1.1) Eosinophils # (Auto) 0.0 x10^3/uL (0.0-0.7) Basophils # (Auto) 0.0 x10^3/uL (0.0-0.2) Segmented Neutrophils % 89 % (35-66) Lymphocytes % 10 % (24-48) Monocytes % 1 % (0-10) Platelet Estimate Adequate (ADEQUATE) Anisocytosis Slight Schistocytes Occ Sodium Level 139 mmol/L (136-145) Potassium Level 3.7 mmol/L (3.5-5.1) Chloride Level 99 mmol/L (98-107) Carbon Dioxide Level 25 mmol/L (21-32) Anion Gap 15 (6-14) Blood Urea Nitrogen 44 mg/dL (8-26) Creatinine 6.7 mg/dL (0.7-1.3) Estimated GFR (Cockcroft-Gault) 8.6 BUN/Creatinine Ratio 7 (6-20) Glucose Level 414 mg/dL (70-99) Calcium Level 9.0 mg/dL (8.5-10.1) Total Bilirubin 0.5 mg/dL (0.2-1.0) Aspartate Amino Transf (AST/SGOT) 23 U/L (15-37) Alanine Aminotransferase (ALT/SGPT) 15 U/L (16-63) Alkaline Phosphatase 115 U/L (46-116) Lactate Dehydrogenase 249 U/L (85-227) Total Protein 6.8 g/dL (6.4-8.2) Albumin 3.1 g/dL (3.4-5.0) Albumin/Globulin Ratio 0.8 (1.0-1.7) Test 02/17/19 07:38 Glucose (Fingerstick) 271 mg/dL (70-99) Laboratory Tests Test 02/16/19 18:34 02/16/19 21:00 02/16/19 21:54 02/16/19 23:54 White Blood Count 6.2 x10^3/uL (4.0-11.0) Red Blood Count 3.64 x10^6/uL (4.30-5.70) Hemoglobin 10.6 g/dL (13.0-17.5) Hematocrit 32.9 % (39.0-53.0) Mean Corpuscular Volume 90 fL (79-100) Mean Corpuscular Hemoglobin 29 pg (25-35) Mean Corpuscular Hemoglobin Concent 32 g/dL (31-37) Red Cell Distribution Width 19.7 % (11.5-14.5) Platelet Count 157 x10^3/uL (140-400) Neutrophils (%) (Auto) 59 % (31-73) Lymphocytes (%) (Auto) 26 % (24-48) Monocytes (%) (Auto) 7 % (0-9) Eosinophils (%) (Auto) 7 % (0-3) Basophils (%) (Auto) 1 % (0-3) Neutrophils # (Auto) 3.6 x10^3uL (1.8-7.7) Lymphocytes # (Auto) 1.6 x10^3/uL (1.0-4.8) Monocytes # (Auto) 0.4 x10^3/uL (0.0-1.1) Eosinophils # (Auto) 0.4 x10^3/uL (0.0-0.7) Basophils # (Auto) 0.1 x10^3/uL (0.0-0.2) Prothrombin Time 12.6 SEC (11.7-14.0) Prothromb Time International Ratio 1.0 (0.8-1.1) Sodium Level 138 mmol/L (136-145) Potassium Level 3.4 mmol/L (3.5-5.1) Chloride Level 99 mmol/L (98-107) Carbon Dioxide Level 29 mmol/L (21-32) Anion Gap 10 (6-14) Blood Urea Nitrogen 35 mg/dL (8-26) Creatinine 6.2 mg/dL (0.7-1.3) Estimated GFR (Cockcroft-Gault) 9.4 BUN/Creatinine Ratio 6 (6-20) Glucose Level 446 mg/dL (70-99) Calcium Level 8.2 mg/dL (8.5-10.1) Total Bilirubin 0.5 mg/dL (0.2-1.0) Aspartate Amino Transf (AST/SGOT) 25 U/L (15-37) Alanine Aminotransferase (ALT/SGPT) 14 U/L (16-63) Alkaline Phosphatase 120 U/L (46-116) Troponin I Quantitative 0.062 ng/mL (0.000-0.055) LV-Gmz-D-Type Natriuretic Peptide > 33250 pg/mL (0-124) Total Protein 6.6 g/dL (6.4-8.2) Albumin 3.0 g/dL (3.4-5.0) Albumin/Globulin Ratio 0.8 (1.0-1.7) Lactic Acid Level 0.8 mmol/L (0.4-2.0) Glucose (Fingerstick) 432 mg/dL (70-99) 455 mg/dL (70-99) Test 02/17/19 01:30 02/17/19 03:11 02/17/19 04:30 02/17/19 04:34 Glucose (Fingerstick) 413 mg/dL (70-99) 399 mg/dL (70-99) 359 mg/dL (70-99) White Blood Count 4.2 x10^3/uL (4.0-11.0) Red Blood Count 3.70 x10^6/uL (4.30-5.70) Hemoglobin 10.9 g/dL (13.0-17.5) Hematocrit 33.3 % (39.0-53.0) Mean Corpuscular Volume 90 fL (79-100) Mean Corpuscular Hemoglobin 29 pg (25-35) Mean Corpuscular Hemoglobin Concent 33 g/dL (31-37) Red Cell Distribution Width 19.3 % (11.5-14.5) Platelet Count 170 x10^3/uL (140-400) Neutrophils (%) (Auto) 87 % (31-73) Lymphocytes (%) (Auto) 11 % (24-48) Monocytes (%) (Auto) 1 % (0-9) Eosinophils (%) (Auto) 0 % (0-3) Basophils (%) (Auto) 1 % (0-3) Neutrophils # (Auto) 3.6 x10^3uL (1.8-7.7) Lymphocytes # (Auto) 0.5 x10^3/uL (1.0-4.8) Monocytes # (Auto) 0.0 x10^3/uL (0.0-1.1) Eosinophils # (Auto) 0.0 x10^3/uL (0.0-0.7) Basophils # (Auto) 0.0 x10^3/uL (0.0-0.2) Segmented Neutrophils % 89 % (35-66) Lymphocytes % 10 % (24-48) Monocytes % 1 % (0-10) Platelet Estimate Adequate (ADEQUATE) Anisocytosis Slight Schistocytes Occ Sodium Level 139 mmol/L (136-145) Potassium Level 3.7 mmol/L (3.5-5.1) Chloride Level 99 mmol/L (98-107) Carbon Dioxide Level 25 mmol/L (21-32) Anion Gap 15 (6-14) Blood Urea Nitrogen 44 mg/dL (8-26) Creatinine 6.7 mg/dL (0.7-1.3) Estimated GFR (Cockcroft-Gault) 8.6 BUN/Creatinine Ratio 7 (6-20) Glucose Level 414 mg/dL (70-99) Calcium Level 9.0 mg/dL (8.5-10.1) Total Bilirubin 0.5 mg/dL (0.2-1.0) Aspartate Amino Transf (AST/SGOT) 23 U/L (15-37) Alanine Aminotransferase (ALT/SGPT) 15 U/L (16-63) Alkaline Phosphatase 115 U/L (46-116) Lactate Dehydrogenase 249 U/L (85-227) Total Protein 6.8 g/dL (6.4-8.2) Albumin 3.1 g/dL (3.4-5.0) Albumin/Globulin Ratio 0.8 (1.0-1.7) Test 02/17/19 07:38 Glucose (Fingerstick) 271 mg/dL (70-99) Medications Current Medications Methylprednisolone Sodium Succinate (SOLU-Medrol 125MG VIAL) 125 mg 1X ONCE IV Last administered on 02/16/19 19:13; Start 02/16/19 at 19:00; Stop 02/16/19 at 19:01; Status DC Albuterol/ Ipratropium (Duoneb) 3 ml 1X ONCE NEB Last administered on 02/16/19at 19:19; Start 02/16/19 at 19:00; Stop 02/16/19 at 19:01; Status DC Labetalol HCl (Normodyne Iv Push) 20 mg 1X ONCE IVP Last administered on 02/16/19 19:13; Start 02/16/19 at 19:00; Stop 02/16/19 at 19:01; Status DC Levofloxacin/ Dextrose 150 ml @ 100 mls/hr 1X ONCE IV Last administered on 02/16/19at 22:45; Start 02/16/19 at 20:00; Stop 02/16/19 at 21:29; Status DC Furosemide (Lasix) 40 mg 1X ONCE IVP Last administered on 02/16/19at 20:54; Start 02/16/19 at 20:15; Stop 02/16/19 at 20:16; Status DC Ondansetron HCl (Zofran) 4 mg PRN Q8HRS PRN IV NAUSEA/VOMITING 1ST CHOICE; S tart 02/16/19 at 20:30; Stop 02/17/19 at 20:29 Fentanyl Citrate (Fentanyl 2ml Vial) 50 mcg PRN Q1HR PRN IV SEVERE PAIN; Start 02/16/19 at 20:30; Stop 02/17/19 at 20:29 Hydralazine HCl (Apresoline Inj) 10 mg PRN Q4HRS PRN IVP ELEVATED BP, SEE COMMENTS Last administered on 02/16/19at 22:12; Start 02/16/19 at 22:15; Stop 02/16/19 at 23:33; Status DC Insulin Human Lispro (HumaLOG) 0-7 UNITS TIDWMEALS SQ Last administered on 02/17/19at 08:41; Start 02/17/19 at 08:00 Dextrose (Dextrose 50%-Water Syringe) 12.5 gm PRN Q15MIN PRN IV SEE COMMENTS; Start 02/16/19 at 22:15 Albuterol Sulfate (Ventolin Neb Soln) 2.5 mg PRN QID PRN NEB SHORTNESS OF BREATH; Start 02/17/19 at 08:00 Furosemide (Lasix) 80 mg 1X ONCE IVP Last administered on 02/16/19at 22:45; Start 02/16/19 at 23:00; Stop 02/16/19 at 23:04; Status DC Albuterol Sulfate (Ventolin Neb Soln) 3 mg 1X ONCE NEB ; Start 02/16/19 at 23:00; Stop 02/16/19 at 23:00; Status DC Albuterol Sulfate (Ventolin Neb Soln) 2.5 mg 1X ONCE NEB Last administered on 02/16/19at 23:55; Start 02/16/19 at 23:00; Stop 02/16/19 at 23:04; Status DC Insulin Human Lispro (HumaLOG) 6 units 1X ONCE SQ Last administered on 02/16/19at 22:57; Start 02/16/19 at 23:00; Stop 02/16/19 at 23:04; Status DC Acetaminophen (Tylenol) 650 mg PRN Q6HRS PRN PO MILD PAIN / TEMP; Start 02/16/19 at 23:00 Amlodipine Besylate (Norvasc) 10 mg DAILY PO Last administered on 02/17/19at 0 8:36; Start 02/17/19 at 09:00 Aspirin (Children'S Aspirin) 81 mg DAILYWBKFT PO ; Start 02/17/19 at 08:00 Budesonide (Pulmicort) 0.5 mg RTBID NEB Last administered on 02/17/19 09:06; Start 02/17/19 at 08:00 Carvedilol (Coreg) 3.125 mg BIDWMEALS PO ; Start 02/17/19 at 08:00; Stop 02/17/19 at 08:00; Status DC Ferrous Sulfate (Feosol) 325 mg DAILY PO Last administered on 02/17/19 08:36; Start 02/17/19 at 09:00 Insulin Glargine (Lantus) 15 units QHS SQ ; Start 02/17/19 at 21:00 Albuterol/ Ipratropium (Duoneb) 3 ml RTQID NEB Last administered on 02/17/19 09:06; Start 02/17/19 at 08:00 Levothyroxine Sodium (Synthroid) 175 mcg DAILY06 PO Last administered on 02/17/19 06:10; Start 02/17/19 at 06:00 Lisinopril (Prinivil) 20 mg DAILY PO Last administered on 02/17/19 08:36; Start 02/17/19 at 09:00 Metoclopramide HCl (Reglan) 5 mg BIDAC PO Last administered on 02/17/19 06:10; Start 02/17/19 at 07:30 Metoprolol Succinate (Toprol Xl) 12.5 mg DAILY PO Last administered on 02/17/19 08:36; Start 02/17/19 at 09:00 Ticagrelor (Brilinta) 90 mg BID PO ; Start 02/17/19 at 09:00 Calcium Acetate (Phoslo) 667 mg TIDWMEALS PO Last administered on 02/17/19 08:36; Start 02/17/19 at 08:00 Hydralazine HCl (Apresoline) 10 mg TID PO Last administered on 02/17/19 08:37; Start 02/17/19 at 09:00 Insulin Human Lispro (HumaLOG) 6 units TIDWMEALS SQ Last administered on 5/25/19at 08:41; Start 02/17/19 at 08:00 Fish Oil (Fish Oil) 1,000 mg DAILY PO Last administered on 02/17/19 08:35; Start 02/17/19 at 09:00 Pantoprazole Sodium (Protonix) 40 mg DAILYAC PO Last administered on 02/17/19 06:11; Start 02/17/19 at 07:30 Multivitamins (Thera M Plus) 1 tab DAILY PO Last administered on 02/17/19at 08:36; Start 02/17/19 at 09:00 Hydralazine HCl (Apresoline Inj) 20 mg PRN Q4HRS PRN IVP ELEVATED BP, SEE COMMENTS Last administered on 02/17/19 03:52; Start 02/16/19 at 23:45 Hydralazine HCl (Apresoline Inj) 20 mg 1X ONCE IVP Last administered on 02/16/19at 23:51; Start 02/16/19 at 23:45; Stop 02/16/19 at 23:46; Status DC Insulin Human Lispro (HumaLOG) 5 units 1X ONCE SQ Last administered on 02/17/19at 00:10; Start 02/17/19 at 00:00; Stop 02/17/19 at 00:12; Status DC Insulin Human Lispro (HumaLOG) 10 units 1X ONCE SQ Last administered on 02/17/19at 01:58; Start 02/17/19 at 02:00; Stop 02/17/19 at 02:01; Status DC Insulin Human Lispro (HumaLOG) 8 units 1X ONCE SQ Last administered on 02/17/19at 03:31; Start 02/17/19 at 03:30; Stop 02/17/19 at 03:31; Status DC Insulin Human Lispro (HumaLOG) 12 units 1X ONCE SQ Last administered on 02/17 06:15; Start 02/17/19 at 06:15; Stop 02/17/19 at 06:16; Status DC Calcium Carbonate/ Glycine (Tums) 500 mg QIDPRN PRN PO INDIGESTION Last administered on 02/17/19 07:37; Start 02/17/19 at 07:30 Active Scripts Active Amox Tr-K Clv 500-125 Mg Tab (Amoxicillin/Potassium Clav) 1 Each Tablet 1 Tab PO DAILY Hydralazine Hcl 10 Mg Tablet 10 Mg PO TID MDD 1 Amlodipine Besylate 10 Mg Tablet 10 Mg PO DAILY MDD 1 Lisinopril 40 Mg Tablet 20 Mg PO DAILY MDD 1 [Pantoprazole] 40 MG Tablet.dr 40 Mg PO DAILYAC 30 Days Trazodone Hcl 100 Mg Tablet 100 Mg PO PRN QHS PRN 30 Days Lantus Solostar (Insulin Glargine,Hum.rec.anlog) 100 Unit/1 Ml Insuln.pen 15 Units SQ QHS 30 Days Budesonide 0.5 Mg/2 Ml Ampul.neb 0.5 Mg NEB RTBID 30 Days Aspirin 81 Mg Tab.chew 81 Mg PO DAILYWBKFT 30 Days Carvedilol (Carvedilol) 3.125 Mg Tablet 3.125 Mg PO BIDWMEALS 30 Days Duoneb 0.5-3(2.5) Mg/3 Ml (Albuterol/Ipratropium) 3 Ml Ampul.neb 3 Ml NEB RTQID 30 Days Brilinta (Ticagrelor) 90 Mg Tablet 90 Mg PO BID 30 Days Vitamin D2 (Ergocalciferol (Vitamin D2)) 50,000 Unit Capsule 50,000 Unit PO WEEKLY Reported [place] 3 Fish Oil Softgel ([place]-3 Fatty Acids/Fish Oil) 1 Each Capsule.dr 1 Each PO DAILY Toprol Xl (Metoprolol Succinate) 25 Mg Tab.er.24h 0.5 Tab PO DAILY Lasix (Furosemide) 80 Mg Tablet 80 Mg PO DAILY Calcium Acetate 667 Mg Tablet 667 Mg PO TIDWMEALS Tylenol (Acetaminophen) 325 Mg Tablet 650 Mg PO PRN Q6HRS Humalog (Insulin Lispro) 100 Unit/1 Ml Cartridge 6 Unit SQ TIDBFRMEAL Ferrous Sulfate 325 Mg Tablet 1 Tab PO DAILY Levothyroxine Sodium 175 Mcg Tablet 1 Tab PO DAILY Reglan (Metoclopramide Hcl) 10 Mg Tablet 5 Mg PO BIDAC Dialyvite Tablet (Folic Acid/Vitamin B Comp W-C) 1 Each Tablet 1 Each PO Vitals/I & O Vital Sign - Last 24 Hours 02/16/19 02/16/19 02/16/19 02/16/19 18:03 18:45 19:13 19:15 Temp 97.9 97.9 Pulse 88 78 79 78 Resp 20 23 17 B/P (MAP) 215/95 (135) 226/105 (145) 240/108 236/103 (147) Pulse Ox 97 99 99 O2 Delivery Nasal Cannula Nasal Cannula Nasal Cannula O2 Flow Rate 2.0 4.0 4.0 02/16/19 02/16/19 02/16/19 02/16/19 19:19 19:45 20:15 20:45 Pulse 70 68 68 Resp 23 26 23 B/P (MAP) 216/90 (132) 216/95 (135) 201/96 (131) Pulse Ox 99 99 99 99 O2 Delivery Nasal Cannula Nasal Cannula Nasal Cannula Nasal Cannula O2 Flow Rate 4.0 4.0 4.0 4.0 02/16/19 02/16/19 02/16/19 02/16/19 21:30 21:45 22:00 22:12 Pulse 73 72 72 Resp 22 20 B/P (MAP) 199/73 (115) 200/92 (128) 200/92 Pulse Ox 99 99 O2 Delivery Nasal Cannula Nasal Cannula Room Air O2 Flow Rate 5.0 5.0 5.0 02/16/19 02/16/19 02/16/19 02/16/19 22:30 23:00 23:30 23:51 Pulse 78 76 Resp 20 20 20 B/P (MAP) 197/87 (123) 181/76 (111) 197/93 Pulse Ox 98 O2 Delivery Nasal Cannula Nasal Cannula Nasal Cannula O2 Flow Rate 5.0 5.0 5.0 02/16/19 02/17/19 02/17/19 02/17/19 23:55 00:00 00:30 01:00 Pulse 78 80 Resp 18 18 20 B/P (MAP) 170/80 (110) 163/77 (105) 160/72 (101) O2 Delivery Nasal Cannula Nasal Cannula Nasal Cannula Nasal Cannula O2 Flow Rate 5.0 5.0 5.0 5.0 02/17/19 02/17/19 02/17/19 02/17/19 02:00 02:48 03:00 03:48 Pulse 78 81 80 78 Resp 21 20 22 B/P (MAP) 162/75 (104) 171/70 (103) 184/75 (111) 170/71 (104) O2 Delivery Nasal Cannula Nasal Cannula Nasal Cannula Nasal Cannula O2 Flow Rate 5.0 5.0 5.0 5.0 5/25/02/17/19 02/17/19 02/17/19 03:52 04:00 05:00 06:00 Pulse 78 76 76 72 Resp 20 20 B/P (MAP) 170/71 151/69 (96) 155/69 (97) 177/82 (113) O2 Delivery Nasal Cannula Nasal Cannula Nasal Cannula O2 Flow Rate 5.0 5.0 5.0 02/17/19 02/17/19 02/17/19 02/17/19 07:07 07:39 08:00 08:36 Temp 97.9 97.9 Pulse 75 75 75 Resp 20 20 B/P (MAP) 170/84 (112) 178/85 (116) 178/85 Pulse Ox 97 O2 Delivery Room Air Room Air Nasal Cannula O2 Flow Rate 5.0 02/17/19 02/17/19 02/17/19 02/17/19 08:36 08:36 08:37 08:56 Pulse 75 75 75 84 Resp 20 B/P (MAP) 178/85 178/85 178/85 194/93 (126) Pulse Ox 95 O2 Delivery Room Air 02/17/19 02/17/19 02/17/19 09:09 09:49 10:51 Pulse 78 76 Resp 20 20 B/P (MAP) 168/88 (114) 154/81 (105) Pulse Ox 96 96 95 O2 Delivery Nasal Cannula Room Air Room Air O2 Flow Rate 4.0 Intake and Output 02/16/19 02/16/19 02/17/19 15:00 23:00 07:00 Intake Total 0 ml 550 ml Output Total 0 ml 100 ml Balance 0 ml 450 ml LAKESHA RODRIGUEZ III DO February 17, 2019 11:14
--- NOTE | 2019-02-17 11:22 | PDOC2 ---
CONSULT Date of Consult Date of Consult DATE: 02/17/19 TIME: 10:51 Reason for Consult Reason for Consult: ESRD Referring Physician Referring Physician: Dr. Durbin Identification/Chief Complaint Chief Complaint SOB Source Source: Chart review, Patient History of Present Illness Reason for Visit: Pedro is a 58-year-old gentleman with type 1 diabetes and hypothyroidism. He is followed by Dr. Minnie Block, food consultant at [facility] for the previous 2 problems. He also is on hemodialysis as a result of diabetic hypertensive nephrosclerosis. He dialyzes at [facility] on a Tuesday basis under my care. He is known to have significant noncompliance with his fluid restriction as an outpatient. His intradialytic weight gains haven't been excessive. He often has resisted following his prescription for dialysis. He has told me that "I work for him and he does not work for me" and hence he will do whatever he wants to do. He was at dialysis yesterday on his regular day and was hooked up to the machine. He apparently moved his arm and his arterial needle infiltrated. In this setting he was unable to be dialyzed further. It is unclear to me if he refused further dialysis but he was sent home. He is felt to be approximately 5 kg over his estimated dry weight. He presented to the hospital with complaints of shortness of breath. He however does not appear to be hypoxemic and is noted to be anywhere from 99-97% on 2-4 L nasal cannula oxygen. He however is noted to be severely hypertensive with blood pressures as high as 240/108 and the highest. He is examined in room 104 in the ICU for the same. His chest x-ray reveals a left pleural effusion which is expected to be tapped today. He declined another attempt at hemodialysis today. He claims he would like his AV fistula to rest. Past Medical History Cardiovascular: CAD, HTN, Hyperlipidemia Pulmonary: Other GI: GERD Heme/Onc: Anemia NOS Psych: Depression Renal/: Chronic renal failure Endocrine: Diabetes, Hypothyroidism, Hyperparathyroidism Past Surgical History Past Surgical History: Other Family History Family History: Coronary Artery Disease, Diabetes, Hypertension Social History 1 pack per day ALCOHOL: none Drugs: None Lives: with Family Current Problem List Problem List Problems Medical Problems: (1) CHF exacerbation Status: Acute (2) Elevated troponin Status: Acute Current Medications Current Medications Current Medications Methylprednisolone Sodium Succinate (SOLU-Medrol 125MG VIAL) 125 mg 1X ONCE IV Last administered on 02/16/19at 19:13; Start 02/16/19 at 19:00; Stop 02/16/19 at 19:01; Status DC Albuterol/ Ipratropium (Duoneb) 3 ml 1X ONCE NEB Last administered on 02/16/19at 19:19; Start 02/16/19 at 19:00; Stop 02/16/19 at 19:01; Status DC Labetalol HCl (Normodyne Iv Push) 20 mg 1X ONCE IVP Last administered on 02/16/19at 19:13; Start 02/16/19 at 19:00; Stop 02/16/19 at 19:01; Status DC Levofloxacin/ Dextrose 150 ml @ 100 mls/hr 1X ONCE IV Last administered on 02/16/19at 22:45; Start 02/16/19 at 20:00; Stop 02/16/19 at 21:29; Status DC Furosemide (Lasix) 40 mg 1X ONCE IVP Last administered on 02/16/19at 20:54; Start 02/16/19 at 20:15; Stop 02/16/19 at 20:16; Status DC Ondansetron HCl (Zofran) 4 mg PRN Q8HRS PRN IV NAUSEA/VOMITING 1ST CHOICE; Start 02/16/19 at 20:30; Stop 02/17/19 at 20:29 Fentanyl Citrate (Fentanyl 2ml Vial) 50 mcg PRN Q1HR PRN IV SEVERE PAIN; Start 02/16/19 at 20:30; Stop 02/17/19 at 20:29 Hydralazine HCl (Apresoline Inj) 10 mg PRN Q4HRS PRN IVP ELEVATED BP, SEE COMMENTS Last administered on 02/16/19at 22:12; Start 02/16/19 at 22:15; Stop 02/16/19 at 23:33; Status DC Insulin Human Lispro (HumaLOG) 0-7 UNITS TIDWMEALS SQ Last administered on 02/17/19at 08:41; Start 02/17/19 at 08:00 Dextrose (Dextrose 50%-Water Syringe) 12.5 gm PRN Q15MIN PRN IV SEE COMMENTS; Start 02/16/19 at 22:15 Albuterol Sulfate (Ventolin Neb Soln) 2.5 mg PRN QID PRN NEB SHORTNESS OF BREATH; Start 02/17/19 at 08:00 Furosemide (Lasix) 80 mg 1X ONCE IVP Last administered on 02/16/19at 22:45; Start 02/16/19 at 23:00; Stop 02/16/19 at 23:04; Status DC Albuterol Sulfate (Ventolin Neb Soln) 3 mg 1X ONCE NEB ; Start 02/16/19 at 23:00; Stop 02/16/19 at 23:00; Status DC Albuterol Sulfate (Ventolin Neb Soln) 2.5 mg 1X ONCE NEB Last administered on 02/16/19at 23:55; Start 02/16/19 at 23:00; Stop 02/16/19 at 23:04; Status DC Insulin Human Lispro (HumaLOG) 6 units 1X ONCE SQ Last administered on 02/16/19at 22:57; Start 02/16/19 at 23:00; Stop 02/16/19 at 23:04; Status DC Acetaminophen (Tylenol) 650 mg PRN Q6HRS PRN PO MILD PAIN / TEMP; Start 02/16/19 at 23:00 Amlodipine Besylate (Norvasc) 10 mg DAILY PO Last administered on 02/17/19at 08:36; Start 02/17/19 at 09:00 Aspirin (Children'S Aspirin) 81 mg DAILYWBKFT PO ; Start 02/17/19 at 08:00 Budesonide (Pulmicort) 0.5 mg RTBID NEB Last administered on 02/17/19at 09:06; Start 02/17/19 at 08:00 Carvedilol (Coreg) 3.125 mg BIDWMEALS PO ; Start 02/17/19 at 08:00; Stop 02/17/19 at 08:00; Status DC Ferrous Sulfate (Feosol) 325 mg DAILY PO Last administered on 02/17/19at 08:36; Start 02/17/19 at 09:00 Insulin Glargine (Lantus) 15 units QHS SQ ; Start 02/17/19 at 21:00 Albuterol/ Ipratropium (Duoneb) 3 ml RTQID NEB Last administered on 02/17/19at 09:06; Start 02/17/19 at 08:00 Levothyroxine Sodium (Synthroid) 175 mcg DAILY06 PO Last administered on 02/17/19 06:10; Start 02/17/19 at 06:00 Lisinopril (Prinivil) 20 mg DAILY PO Last administered on 02/17/19 08:36; Start 02/17/19 at 09:00 Metoclopramide HCl (Reglan) 5 mg BIDAC PO Last administered on 02/17/19 06:10; Start 02/17/19 at 07:30 Metoprolol Succinate (Toprol Xl) 12.5 mg DAILY PO Last administered on 02/17/19 08:36; Start 02/17/19 at 09:00 Ticagrelor (Brilinta) 90 mg BID PO ; Start 02/17/19 at 09:00 Calcium Acetate (Phoslo) 667 mg TIDWMEALS PO Last administered on 02/17/19 08:36; Start 02/17/19 at 08:00 Hydralazine HCl (Apresoline) 10 mg TID PO Last administered on 02/17/19 08:37; Start 02/17/19 at 09:00 Insulin Human Lispro (HumaLOG) 6 units TIDWMEALS SQ Last administered on 02/17/19 08:41; Start 02/17/19 at 08:00 Fish Oil (Fish Oil) 1,000 mg DAILY PO Last administered on 02/17/19 08:35; Start 02/17/19 at 09:00 Pantoprazole Sodium (Protonix) 40 mg DAILYAC PO Last administered on 02/17/19 06:11; Start 02/17/19 at 07:30 Multivitamins (Thera M Plus) 1 tab DAILY PO Last administered on 02/17/19 08:36; Start 02/17/19 at 09:00 Hydralazine HCl (Apresoline Inj) 20 mg PRN Q4HRS PRN IVP ELEVATED BP, SEE COMMENTS Last administered on 02/17/19 03:52; Start 02/16/19 at 23:45 Hydralazine HCl (Apresoline Inj) 20 mg 1X ONCE IVP Last administered on 02/16/19 23:51; Start 02/16/19 at 23:45; Stop 02/16/19 at 23:46; Status DC Insulin Human Lispro (HumaLOG) 5 units 1X ONCE SQ Last administered on 02/17at 00:10; Start 02/17/19 at 00:00; Stop 02/17/19 at 00:12; Status DC Insulin Human Lispro (HumaLOG) 10 units 1X ONCE SQ Last administered on 02/17/19at 01:58; Start 02/17/19 at 02:00; Stop 02/17/19 at 02:01; Status DC Insulin Human Lispro (HumaLOG) 8 units 1X ONCE SQ Last administered on 02/17/19at 03:31; Start 02/17/19 at 03:30; Stop 02/17/19 at 03:31; Status DC Insulin Human Lispro (HumaLOG) 12 units 1X ONCE SQ Last administered on 02/17/19at 06:15; Start 02/17/19 at 06:15; Stop 02/17/19 at 06:16; Status DC Calcium Carbonate/ Glycine (Tums) 500 mg QIDPRN PRN PO INDIGESTION Last administered on 02/17/19at 07:37; Start 02/17/19 at 07:30 Active Scripts Active Amox Tr-K Clv 500-125 Mg Tab (Amoxicillin/Potassium Clav) 1 Each Tablet 1 Tab PO DAILY Hydralazine Hcl 10 Mg Tablet 10 Mg PO TID MDD 1 Amlodipine Besylate 10 Mg Tablet 10 Mg PO DAILY MDD 1 Lisinopril 40 Mg Tablet 20 Mg PO DAILY MDD 1 [Pantoprazole] 40 MG Tablet.dr 40 Mg PO DAILYAC 30 Days Trazodone Hcl 100 Mg Tablet 100 Mg PO PRN QHS PRN 30 Days Lantus Solostar (Insulin Glargine,Hum.rec.anlog) 100 Unit/1 Ml Insuln.pen 15 Units SQ QHS 30 Days Budesonide 0.5 Mg/2 Ml Ampul.neb 0.5 Mg NEB RTBID 30 Days Aspirin 81 Mg Tab.chew 81 Mg PO DAILYWBKFT 30 Days Carvedilol (Carvedilol) 3.125 Mg Tablet 3.125 Mg PO BIDWMEALS 30 Days Duoneb 0.5-3(2.5) Mg/3 Ml (Albuterol/Ipratropium) 3 Ml Ampul.neb 3 Ml NEB RTQID 30 Days Brilinta (Ticagrelor) 90 Mg Tablet 90 Mg PO BID 30 Days Vitamin D2 (Ergocalciferol (Vitamin D2)) 50,000 Unit Capsule 50,000 Unit PO WEEKLY Reported [place] 3 Fish Oil Softgel ([place]-3 Fatty Acids/Fish Oil) 1 Each Capsule.dr 1 Each PO DAILY Toprol Xl (Metoprolol Succinate) 25 Mg Tab.er.24h 0.5 Tab PO DAILY Lasix (Furosemide) 80 Mg Tablet 80 Mg PO DAILY Calcium Acetate 667 Mg Tablet 667 Mg PO TIDWMEALS Tylenol (Acetaminophen) 325 Mg Tablet 650 Mg PO PRN Q6HRS Humalog (Insulin Lispro) 100 Unit/1 Ml Cartridge 6 Unit SQ TIDBFRMEAL Ferrous Sulfate 325 Mg Tablet 1 Tab PO DAILY Levothyroxine Sodium 175 Mcg Tablet 1 Tab PO DAILY Reglan (Metoclopramide Hcl) 10 Mg Tablet 5 Mg PO BIDAC Dialyvite Tablet (Folic Acid/Vitamin B Comp W-C) 1 Each Tablet 1 Each PO Allergies Allergies: Coded Allergies: No Known Drug Allergies (Unverified , 02/16/19) ROS Review of System 14 point review of systems as reviewed in history of present illness, otherwise negative Physical Exam Physical Exam General Appearance: Awake Alert Oriented x 3 In no Distress Eyes: VIsion Unchanged Conjunctiva Normal EN: No EN Drainage Mucous Memb. moist Neck: no JVD min JVP Supple no Thyromegaly CVS: S1 S2 soft Murmur No Gallop No Rub ++ Edema Resp: LLL Rales occ Rhonchi no Acc. Muscle use GI: BAS +ve NO Bruit Non Tender Non Distended : no CVA tenderness; no Suprapubic Tenderness SKIN: no Rashes Breast Exam deferred Mu.Sk: Adequate ROM no Muscle Atrophy Heme: Unable to palpate Obvious LAD no Splenomegaly NEURO: Good Strength and Tone Cranial Nerves II - XII grossly intact Psych: no Depressed no Active hallucination Vital Signs Vital Signs Date Time Temp Pulse Resp B/P (MAP) Pulse Ox O2 Delivery O2 Flow Rate FiO2 02/17/19 09:49 78 20 168/88 (114) 96 Room Air 02/17/19 09:09 4.0 02/17/19 07:39 97.9 97.9 Assessment & Plan ESRD: Patient did not get his full session of dialysis yesterday since he moved his arm while he was hooked up to the machine and his AV fistula infiltrated. He apparently left approximately 5 kg above his estimated dry weight. I offered him another round of dialysis today but he refused. He tells me he wants to let his fistula rest Pleural effusion: Patient does not appear hypoxemic per se at this time and is talking in full sentences and a rather animated manner. My understanding that he is scheduled for a thoracentesis today Poorly controlled DM: Sugars still running in the 300 to 400s range. Anemia: We'll start Epogen once hemoglobin less than 10. Transfuse with next HD as needed. HTN: Current BP meds reviewed. See orders for changes. Edema lower extremity: It is felt that he may have some level of myxedema associated with his long-term poorly controlled thyroid levels Bone & Mineral: We'll monitor phosphorus especially once sugars are better controlled. Alter binder regimen as needed non-compliance with Fluid, dietary restriction and medications: Discussed with patient and both about the same. Hypoalbuminemia: We will check urine protein creatinine ratio since he still produces urine. Tendency to high inter-dialytic weight gain: May need Lasix as outpatient to minimize this Discussed Plan of Care and prognosis etc. at length with family. Labs Labs Laboratory Tests Test 02/16/19 18:34 02/16/19 21:00 02/16/19 21:54 02/16/19 23:54 White Blood Count 6.2 x10^3/uL (4.0-11.0) Red Blood Count 3.64 x10^6/uL (4.30-5.70) Hemoglobin 10.6 g/dL (13.0-17.5) Hematocrit 32.9 % (39.0-53.0) Mean Corpuscular Volume 90 fL (79-100) Mean Corpuscular Hemoglobin 29 pg (25-35) Mean Corpuscular Hemoglobin Concent 32 g/dL (31-37) Red Cell Distribution Width 19.7 % (11.5-14.5) Platelet Count 157 x10^3/uL (140-400) Neutrophils (%) (Auto) 59 % (31-73) Lymphocytes (%) (Auto) 26 % (24-48) Monocytes (%) (Auto) 7 % (0-9) Eosinophils (%) (Auto) 7 % (0-3) Basophils (%) (Auto) 1 % (0-3) Neutrophils # (Auto) 3.6 x10^3uL (1.8-7.7) Lymphocytes # (Auto) 1.6 x10^3/uL (1.0-4.8) Monocytes # (Auto) 0.4 x10^3/uL (0.0-1.1) Eosinophils # (Auto) 0.4 x10^3/uL (0.0-0.7) Basophils # (Auto) 0.1 x10^3/uL (0.0-0.2) Prothrombin Time 12.6 SEC (11.7-14.0) Prothromb Time International Ratio 1.0 (0.8-1.1) Sodium Level 138 mmol/L (136-145) Potassium Level 3.4 mmol/L (3.5-5.1) Chloride Level 99 mmol/L (98-107) Carbon Dioxide Level 29 mmol/L (21-32) Anion Gap 10 (6-14) Blood Urea Nitrogen 35 mg/dL (8-26) Creatinine 6.2 mg/dL (0.7-1.3) Estimated GFR (Cockcroft-Gault) 9.4 BUN/Creatinine Ratio 6 (6-20) Glucose Level 446 mg/dL (70-99) Calcium Level 8.2 mg/dL (8.5-10.1) Total Bilirubin 0.5 mg/dL (0.2-1.0) Aspartate Amino Transf (AST/SGOT) 25 U/L (15-37) Alanine Aminotransferase (ALT/SGPT) 14 U/L (16-63) Alkaline Phosphatase 120 U/L (46-116) Troponin I Quantitative 0.062 ng/mL (0.000-0.055) LR-Ssp-E-Type Natriuretic Peptide > 32343 pg/mL (0-124) Total Protein 6.6 g/dL (6.4-8.2) Albumin 3.0 g/dL (3.4-5.0) Albumin/Globulin Ratio 0.8 (1.0-1.7) Lactic Acid Level 0.8 mmol/L (0.4-2.0) Glucose (Fingerstick) 432 mg/dL (70-99) 455 mg/dL (70-99) Test 02/17/19 01:30 02/17/19 03:11 02/17/19 04:30 02/17/19 04:34 Glucose (Fingerstick) 413 mg/dL (70-99) 399 mg/dL (70-99) 359 mg/dL (70-99) White Blood Count 4.2 x10^3/uL (4.0-11.0) Red Blood Count 3.70 x10^6/uL (4.30-5.70) Hemoglobin 10.9 g/dL (13.0-17.5) Hematocrit 33.3 % (39.0-53.0) Mean Corpuscular Volume 90 fL (79-100) Mean Corpuscular Hemoglobin 29 pg (25-35) Mean Corpuscular Hemoglobin Concent 33 g/dL (31-37) Red Cell Distribution Width 19.3 % (11.5-14.5) Platelet Count 170 x10^3/uL (140-400) Neutrophils (%) (Auto) 87 % (31-73) Lymphocytes (%) (Auto) 11 % (24-48) Monocytes (%) (Auto) 1 % (0-9) Eosinophils (%) (Auto) 0 % (0-3) Basophils (%) (Auto) 1 % (0-3) Neutrophils # (Auto) 3.6 x10^3uL (1.8-7.7) Lymphocytes # (Auto) 0.5 x10^3/uL (1.0-4.8) Monocytes # (Auto) 0.0 x10^3/uL (0.0-1.1) Eosinophils # (Auto) 0.0 x10^3/uL (0.0-0.7) Basophils # (Auto) 0.0 x10^3/uL (0.0-0.2) Sodium Level 139 mmol/L (136-145) Potassium Level 3.7 mmol/L (3.5-5.1) Chloride Level 99 mmol/L (98-107) Carbon Dioxide Level 25 mmol/L (21-32) Anion Gap 15 (6-14) Blood Urea Nitrogen 44 mg/dL (8-26) Creatinine 6.7 mg/dL (0.7-1.3) Estimated GFR (Cockcroft-Gault) 8.6 BUN/Creatinine Ratio 7 (6-20) Glucose Level 414 mg/dL (70-99) Calcium Level 9.0 mg/dL (8.5-10.1) Total Bilirubin 0.5 mg/dL (0.2-1.0) Aspartate Amino Transf (AST/SGOT) 23 U/L (15-37) Alanine Aminotransferase (ALT/SGPT) 15 U/L (16-63) Alkaline Phosphatase 115 U/L (46-116) Lactate Dehydrogenase 249 U/L (85-227) Total Protein 6.8 g/dL (6.4-8.2) Albumin 3.1 g/dL (3.4-5.0) Albumin/Globulin Ratio 0.8 (1.0-1.7) Test 02/17/19 07:38 Glucose (Fingerstick) 271 mg/dL (70-99) Laboratory Tests Test 02/16/19 18:34 02/16/19 21:00 02/16/19 21:54 02/16/19 23:54 White Blood Count 6.2 x10^3/uL (4.0-11.0) Red Blood Count 3.64 x10^6/uL (4.30-5.70) Hemoglobin 10.6 g/dL (13.0-17.5) Hematocrit 32.9 % (39.0-53.0) Mean Corpuscular Volume 90 fL (79-100) Mean Corpuscular Hemoglobin 29 pg (25-35) Mean Corpuscular Hemoglobin Concent 32 g/dL (31-37) Red Cell Distribution Width 19.7 % (11.5-14.5) Platelet Count 157 x10^3/uL (140-400) Neutrophils (%) (Auto) 59 % (31-73) Lymphocytes (%) (Auto) 26 % (24-48) Monocytes (%) (Auto) 7 % (0-9) Eosinophils (%) (Auto) 7 % (0-3) Basophils (%) (Auto) 1 % (0-3) Neutrophils # (Auto) 3.6 x10^3uL (1.8-7.7) Lymphocytes # (Auto) 1.6 x10^3/uL (1.0-4.8) Monocytes # (Auto) 0.4 x10^3/uL (0.0-1.1) Eosinophils # (Auto) 0.4 x10^3/uL (0.0-0.7) Basophils # (Auto) 0.1 x10^3/uL (0.0-0.2) Prothrombin Time 12.6 SEC (11.7-14.0) Prothromb Time International Ratio 1.0 (0.8-1.1) Sodium Level 138 mmol/L (136-145) Potassium Level 3.4 mmol/L (3.5-5.1) Chloride Level 99 mmol/L (98-107) Carbon Dioxide Level 29 mmol/L (21-32) Anion Gap 10 (6-14) Blood Urea Nitrogen 35 mg/dL (8-26) Creatinine 6.2 mg/dL (0.7-1.3) Estimated GFR (Cockcroft-Gault) 9.4 BUN/Creatinine Ratio 6 (6-20) Glucose Level 446 mg/dL (70-99) Calcium Level 8.2 mg/dL (8.5-10.1) Total Bilirubin 0.5 mg/dL (0.2-1.0) Aspartate Amino Transf (AST/SGOT) 25 U/L (15-37) Alanine Aminotransferase (ALT/SGPT) 14 U/L (16-63) Alkaline Phosphatase 120 U/L (46-116) Troponin I Quantitative 0.062 ng/mL (0.000-0.055) OE-Dfq-V-Type Natriuretic Peptide > 59050 pg/mL (0-124) Total Protein 6.6 g/dL (6.4-8.2) Albumin 3.0 g/dL (3.4-5.0) Albumin/Globulin Ratio 0.8 (1.0-1.7) Lactic Acid Level 0.8 mmol/L (0.4-2.0) Glucose (Fingerstick) 432 mg/dL (70-99) 455 mg/dL (70-99) Test 02/17/19 01:30 02/17/19 03:11 02/17/19 04:30 02/17/19 04:34 Glucose (Fingerstick) 413 mg/dL (70-99) 399 mg/dL (70-99) 359 mg/dL (70-99) White Blood Count 4.2 x10^3/uL (4.0-11.0) Red Blood Count 3.70 x10^6/uL (4.30-5.70) Hemoglobin 10.9 g/dL (13.0-17.5) Hematocrit 33.3 % (39.0-53.0) Mean Corpuscular Volume 90 fL (79-100) Mean Corpuscular Hemoglobin 29 pg (25-35) Mean Corpuscular Hemoglobin Concent 33 g/dL (31-37) Red Cell Distribution Width 19.3 % (11.5-14.5) Platelet Count 170 x10^3/uL (140-400) Neutrophils (%) (Auto) 87 % (31-73) Lymphocytes (%) (Auto) 11 % (24-48) Monocytes (%) (Auto) 1 % (0-9) Eosinophils (%) (Auto) 0 % (0-3) Basophils (%) (Auto) 1 % (0-3) Neutrophils # (Auto) 3.6 x10^3uL (1.8-7.7) Lymphocytes # (Auto) 0.5 x10^3/uL (1.0-4.8) Monocytes # (Auto) 0.0 x10^3/uL (0.0-1.1) Eosinophils # (Auto) 0.0 x10^3/uL (0.0-0.7) Basophils # (Auto) 0.0 x10^3/uL (0.0-0.2) Sodium Level 139 mmol/L (136-145) Potassium Level 3.7 mmol/L (3.5-5.1) Chloride Level 99 mmol/L (98-107) Carbon Dioxide Level 25 mmol/L (21-32) Anion Gap 15 (6-14) Blood Urea Nitrogen 44 mg/dL (8-26) Creatinine 6.7 mg/dL (0.7-1.3) Estimated GFR (Cockcroft-Gault) 8.6 BUN/Creatinine Ratio 7 (6-20) Glucose Level 414 mg/dL (70-99) Calcium Level 9.0 mg/dL (8.5-10.1) Total Bilirubin 0.5 mg/dL (0.2-1.0) Aspartate Amino Transf (AST/SGOT) 23 U/L (15-37) Alanine Aminotransferase (ALT/SGPT) 15 U/L (16-63) Alkaline Phosphatase 115 U/L (46-116) Lactate Dehydrogenase 249 U/L (85-227) Total Protein 6.8 g/dL (6.4-8.2) Albumin 3.1 g/dL (3.4-5.0) Albumin/Globulin Ratio 0.8 (1.0-1.7) Test 02/17/19 07:38 Glucose (Fingerstick) 271 mg/dL (70-99) Review All relevant outside records, renal labs, imaging studies, telemetry/EKG's were reviewed. Images Images 1. There is large left pleural effusion with adjacent atelectasis or infiltrate. There is a similar degree of opacity at the right lung base probably component of pleural fluid in combination with pleural parenchymal fibrotic change more similar in appearance. 2. There is again enlargement of the pericardial cardiac silhouette. Echo from March 2018: There is moderate concentric left ventricular hypertrophy. The Ejection Fraction is low normal. EF 50%. There is normal LV segmental wall motion. The interatrial septum is intact with no evidence for an atrial septal defect or patent foramen ovale as noted on 2-D or Doppler imaging. Injection of bubbles documented no interatrial shunt. CHARLES KOROMA MD February 17, 2019 11:22
[2019-02-17] MEDS ORDERED: MAGNESIUM SULFATE 2GM 50 ML IV PRN (11:30)
--- NOTE | 2019-02-17 14:35 | RAD ---
CHEST PA LATERAL Clinical indications: Status post left-sided thoracentesis. Follow-up exam COMPARISON: February 16, 2019. Findings: Since the previous study, there has been significant decrease in the amount of pleural effusion. Tiny left apical pneumothorax is seen. There is a loculated pleural fluid collection versus residual infiltrate within the lateral and posterior left midlung zone so this would be located within the superior segment of the left lower lobe. Persistent small to moderate size right-sided pleural effusion and associated right lung base atelectasis or infiltrate is stable. The heart size is mildly enlarged but stable. Mediastinum and pulmonary vasculature and both brijesh are unchanged. Impression: Significant decrease in size of left-sided pleural effusion after thoracentesis. Tiny left apical pneumothorax is seen as a result of the thoracentesis. Persistent triangular-shaped density of the posterior lateral left midlung zone which may represent loculated pleural fluid or residual lung infiltrate. Persistent right-sided pleural effusion and associated right lung base infiltrate or atelectasis which is stable. Stable cardiomegaly. Electronically signed by: Jean Manning MD (02/17/2019 2:32 PM) [facility]
[2019-02-17] MEDS: FUROSEMIDE 80 MG TABLET. PO SCH ×2 (14:52→21:33)
--- NOTE | 2019-02-17 14:59 | RAD ---
Ultrasound-guided diagnostic and therapeutic thoracentesis History: Prominent left-sided pleural effusion seen on chest x-ray. Shortness of breath. Procedure: The procedure and possible complications including bleeding and infection and pneumothorax were explained to the patient. Informed consent was obtained. Preprocedure PT and PTT and INR and platelet count were normal. A timeout was performed which confirmed the name of the patient and date of and the type of procedure and the side of the procedure. Sonography demonstrates a large left-sided pleural fluid collection. Sonographic spot image was performed. Appropriate skin yesenia was placed posterior left lateral chest overlying a prominent pocket of fluid. This area was prepped and draped in the usual sterile fashion. A total of 7 cc of 1% lidocaine was utilized for local anesthesia. Using sterile technique and sonographic guidance, a small skin neck was made and a Safe-T thoracentesis needle cannula was inserted into the left-sided pleural fluid collection. The needle cannula was removed and the pigtail catheter was left in place. A total of 2050 mL of yellowish serous fluid was aspirated. The catheter was removed and hemostasis was deemed adequate after manual compression. A sterile dressing was placed. Sonographic spot image was performed. This demonstrated a small amount of residual left-sided pleural fluid. The patient tolerated the procedure well without complication and was sent back to the floor for recovery. A 50 cc syringe of specimen fluid was sent to laboratory for further processing as per the orders of the patient's physician. Follow-up will be with the patient's physician. Impression: A total of 2050 mL of yellowish serous fluid was aspirated from the left pleural space. The patient tolerated the procedure well without complication. Electronically signed by: Jean Manning MD (02/17/2019 2:56 PM) [facility]
[2019-02-17 17:19] LABS: BF CLARITY CLEAR; BF COLOR YELLOW; BF MON % 56 %; BF PMN % 10 %; BF RBC COUNT 108 /cmm (Not Established); BF SOURCE PLEURAL; BF WBC COUNT 199 /cmm (Not Established)
[2019-02-17 17:21] LABS: BF OTHER % 34 %
[2019-02-17] MEDS ORDERED: INSULIN GLARGINE 300 UNITS/3 ML INSULN.PEN. SQ SCH (21:00)
[2019-02-18 02:00] VITALS: BP 161/76
[2019-02-18 05:17] LABS: ALBUMIN 2.9 g/dL (3.4-5.0); CALCIUM 8.7 mg/dL (8.5-10.1); CREATININE 7.5 mg/dL (0.7-1.3); GFR 7.6; PHOSPHORUS 5.2 mg/dL (2.6-4.7)
[2019-02-18] MEDS: LEVOTHYROXINE 175 MCG TABLET PO SCH (06:35)
[2019-02-18 07:00] VITALS: BP 163/75
--- NOTE | 2019-02-18 07:41 | PDOC ---
PULMONARY PROGRESS NOTES Subjective sob better, no cough, no pain Vitals Vital Signs Date Time Temp Pulse Resp B/P (MAP) Pulse Ox O2 Delivery O2 Flow Rate FiO2 02/18/19 02:00 97.9 78 20 161/76 (104) 91 Room Air 97.9 02/17/19 20:15 5.0 General: Alert, No acute distress HEENT: Other Lungs: Crackles, Other (dull at bases) Cardiovascular: S1, S2 Abdomen: Soft, Non-tender Neuro Exam: Alert Extremities: Other (+edemas) Skin: Warm Labs Laboratory Tests Test 02/16/19 18:34 02/16/19 21:00 02/16/19 21:54 02/16/19 23:54 White Blood Count 6.2 x10^3/uL (4.0-11.0) Red Blood Count 3.64 x10^6/uL (4.30-5.70) Hemoglobin 10.6 g/dL (13.0-17.5) Hematocrit 32.9 % (39.0-53.0) Mean Corpuscular Volume 90 fL (79-100) Mean Corpuscular Hemoglobin 29 pg (25-35) Mean Corpuscular Hemoglobin Concent 32 g/dL (31-37) Red Cell Distribution Width 19.7 % (11.5-14.5) Platelet Count 157 x10^3/uL (140-400) Neutrophils (%) (Auto) 59 % (31-73) Lymphocytes (%) (Auto) 26 % (24-48) Monocytes (%) (Auto) 7 % (0-9) Eosinophils (%) (Auto) 7 % (0-3) Basophils (%) (Auto) 1 % (0-3) Neutrophils # (Auto) 3.6 x10^3uL (1.8-7.7) Lymphocytes # (Auto) 1.6 x10^3/uL (1.0-4.8) Monocytes # (Auto) 0.4 x10^3/uL (0.0-1.1) Eosinophils # (Auto) 0.4 x10^3/uL (0.0-0.7) Basophils # (Auto) 0.1 x10^3/uL (0.0-0.2) Prothrombin Time 12.6 SEC (11.7-14.0) Prothromb Time International Ratio 1.0 (0.8-1.1) Sodium Level 138 mmol/L (136-145) Potassium Level 3.4 mmol/L (3.5-5.1) Chloride Level 99 mmol/L (98-107) Carbon Dioxide Level 29 mmol/L (21-32) Anion Gap 10 (6-14) Blood Urea Nitrogen 35 mg/dL (8-26) Creatinine 6.2 mg/dL (0.7-1.3) Estimated GFR (Cockcroft-Gault) 9.4 BUN/Creatinine Ratio 6 (6-20) Glucose Level 446 mg/dL (70-99) Calcium Level 8.2 mg/dL (8.5-10.1) Total Bilirubin 0.5 mg/dL (0.2-1.0) Aspartate Amino Transf (AST/SGOT) 25 U/L (15-37) Alanine Aminotransferase (ALT/SGPT) 14 U/L (16-63) Alkaline Phosphatase 120 U/L (46-116) Troponin I Quantitative 0.062 ng/mL (0.000-0.055) YI-Tjk-G-Type Natriuretic Peptide > 37857 pg/mL (0-124) Total Protein 6.6 g/dL (6.4-8.2) Albumin 3.0 g/dL (3.4-5.0) Albumin/Globulin Ratio 0.8 (1.0-1.7) Lactic Acid Level 0.8 mmol/L (0.4-2.0) Glucose (Fingerstick) 432 mg/dL (70-99) 455 mg/dL (70-99) Test 02/17/19 01:30 02/17/19 02:19 02/17/19 03:11 02/17/19 04:30 Glucose (Fingerstick) 413 mg/dL (70-99) 399 mg/dL (70-99) Nasal Screen MRSA (PCR) Negative (Negative) White Blood Count 4.2 x10^3/uL (4.0-11.0) Red Blood Count 3.70 x10^6/uL (4.30-5.70) Hemoglobin 10.9 g/dL (13.0-17.5) Hematocrit 33.3 % (39.0-53.0) Mean Corpuscular Volume 90 fL (79-100) Mean Corpuscular Hemoglobin 29 pg (25-35) Mean Corpuscular Hemoglobin Concent 33 g/dL (31-37) Red Cell Distribution Width 19.3 % (11.5-14.5) Platelet Count 170 x10^3/uL (140-400) Neutrophils (%) (Auto) 87 % (31-73) Lymphocytes (%) (Auto) 11 % (24-48) Monocytes (%) (Auto) 1 % (0-9) Eosinophils (%) (Auto) 0 % (0-3) Basophils (%) (Auto) 1 % (0-3) Neutrophils # (Auto) 3.6 x10^3uL (1.8-7.7) Lymphocytes # (Auto) 0.5 x10^3/uL (1.0-4.8) Monocytes # (Auto) 0.0 x10^3/uL (0.0-1.1) Eosinophils # (Auto) 0.0 x10^3/uL (0.0-0.7) Basophils # (Auto) 0.0 x10^3/uL (0.0-0.2) Segmented Neutrophils % 89 % (35-66) Lymphocytes % 10 % (24-48) Monocytes % 1 % (0-10) Platelet Estimate Adequate (ADEQUATE) Anisocytosis Slight Schistocytes Occ Sodium Level 139 mmol/L (136-145) Potassium Level 3.7 mmol/L (3.5-5.1) Chloride Level 99 mmol/L (98-107) Carbon Dioxide Level 25 mmol/L (21-32) Anion Gap 15 (6-14) Blood Urea Nitrogen 44 mg/dL (8-26) Creatinine 6.7 mg/dL (0.7-1.3) Estimated GFR (Cockcroft-Gault) 8.6 BUN/Creatinine Ratio 7 (6-20) Glucose Level 414 mg/dL (70-99) Calcium Level 9.0 mg/dL (8.5-10.1) Total Bilirubin 0.5 mg/dL (0.2-1.0) Aspartate Amino Transf (AST/SGOT) 23 U/L (15-37) Alanine Aminotransferase (ALT/SGPT) 15 U/L (16-63) Alkaline Phosphatase 115 U/L (46-116) Lactate Dehydrogenase 249 U/L (85-227) Total Protein 6.8 g/dL (6.4-8.2) Albumin 3.1 g/dL (3.4-5.0) Albumin/Globulin Ratio 0.8 (1.0-1.7) Test 02/17/19 04:34 02/17/19 07:38 02/17/19 11:48 02/17/19 14:20 Glucose (Fingerstick) 359 mg/dL (70-99) 271 mg/dL (70-99) 212 mg/dL (70-99) Body Fluid Source Pleural Body Fluid Color Yellow Body Fluid Clarity Clear Body Fluid Nucleated Cells 199 /cmm (Not Established) Body Fluid Mononuclear WBCs (%) 56 % Body Fluid Polymorphonuclear Cells 10 % Body Fluid Total RBCs Counted 108 /cmm (Not Established) Body Fluid Other Cells (%) 34 % Test 02/17/19 14:30 02/17/19 14:51 02/17/19 17:45 02/17/19 20:29 Body Fluid pH 7.52 Glucose (Fingerstick) 160 mg/dL (70-99) 210 mg/dL (70-99) 235 mg/dL (70-99) Test 02/18/19 03:30 Hemoglobin 10.3 g/dL (13.0-17.5) Sodium Level 137 mmol/L (136-145) Potassium Level 4.0 mmol/L (3.5-5.1) Chloride Level 99 mmol/L (98-107) Carbon Dioxide Level 25 mmol/L (21-32) Anion Gap 13 (6-14) Blood Urea Nitrogen 55 mg/dL (8-26) Creatinine 7.5 mg/dL (0.7-1.3) Estimated GFR (Cockcroft-Gault) 7.6 Glucose Level 224 mg/dL (70-99) Calcium Level 8.7 mg/dL (8.5-10.1) Phosphorus Level 5.2 mg/dL (2.6-4.7) Magnesium Level 1.9 mg/dL (1.8-2.4) Albumin 2.9 g/dL (3.4-5.0) Laboratory Tests Test 02/17/19 11:48 02/17/19 14:20 02/17/19 14:30 02/17/19 14:51 Glucose (Fingerstick) 212 mg/dL (70-99) 160 mg/dL (70-99) Body Fluid Source Pleural Body Fluid Color Yellow Body Fluid Clarity Clear Body Fluid Nucleated Cells 199 /cmm (Not Established) Body Fluid Mononuclear WBCs (%) 56 % Body Fluid Polymorphonuclear Cells 10 % Body Fluid Total RBCs Counted 108 /cmm (Not Established) Body Fluid Other Cells (%) 34 % Body Fluid pH 7.52 Test 02/17/19 17:45 02/17/19 20:29 02/18/19 03:30 Glucose (Fingerstick) 210 mg/dL (70-99) 235 mg/dL (70-99) Hemoglobin 10.3 g/dL (13.0-17.5) Sodium Level 137 mmol/L (136-145) Potassium Level 4.0 mmol/L (3.5-5.1) Chloride Level 99 mmol/L (98-107) Carbon Dioxide Level 25 mmol/L (21-32) Anion Gap 13 (6-14) Blood Urea Nitrogen 55 mg/dL (8-26) Creatinine 7.5 mg/dL (0.7-1.3) Estimated GFR (Cockcroft-Gault) 7.6 Glucose Level 224 mg/dL (70-99) Calcium Level 8.7 mg/dL (8.5-10.1) Phosphorus Level 5.2 mg/dL (2.6-4.7) Magnesium Level 1.9 mg/dL (1.8-2.4) Albumin 2.9 g/dL (3.4-5.0) Medications Active Scripts Medications Dose Route/Sig Max Daily Dose Days Date Category Amox Tr-K Clv 500-125 Mg Tab (Amoxicillin/Potassium Clav) 1 Each Tablet 1 Tab PO DAILY 11/15/18 Rx [place] 3 Fish Oil Softgel ([place]-3 Fatty Acids/Fish Oil) 1 Each Capsule.dr 1 Each PO DAILY 11/07/18 Reported Toprol Xl (Metoprolol Succinate) 25 Mg Tab.er.24h 0.5 Tab PO DAILY 11/07/18 Reported Lasix (Furosemide) 80 Mg Tablet 80 Mg PO DAILY 11/07/18 Reported Calcium Acetate 667 Mg Tablet 667 Mg PO TIDWMEALS 11/07/18 Reported Hydralazine Hcl 10 Mg Tablet 10 Mg PO TID MDD 1 10/04/18 Rx Amlodipine Besylate 10 Mg Tablet 10 Mg PO DAILY MDD 1 10/04/18 Rx Lisinopril 40 Mg Tablet 20 Mg PO DAILY MDD 1 10/04/18 Rx Tylenol (Acetaminophen) 325 Mg Tablet 650 Mg PO PRN Q6HRS 10/02/18 Reported Humalog (Insulin Lispro) 100 Unit/1 Ml Cartridge 6 Unit SQ TIDBFRMEAL 10/02/18 Reported Ferrous Sulfate 325 Mg Tablet 1 Tab PO DAILY 09/15/18 Reported Levothyroxine Sodium 175 Mcg Tablet 1 Tab PO DAILY 09/15/18 Reported Reglan (Metoclopramide Hcl) 10 Mg Tablet 5 Mg PO BIDAC 09/15/18 Reported [Pantoprazole] 40 MG Tablet.dr 40 Mg PO DAILYAC 30 09/09/18 Rx Trazodone Hcl 100 Mg Tablet 100 Mg PO PRN QHS PRN 30 09/09/18 Rx Lantus Solostar (Insulin Glargine,Hum.rec.anlog) 100 Unit/1 Ml Insuln.pen 15 Units SQ QHS 30 09/09/18 Rx Budesonide 0.5 Mg/2 Ml Ampul.neb 0.5 Mg NEB RTBID 30 08/29/18 Rx Aspirin 81 Mg Tab.chew 81 Mg PO DAILYWBKFT 30 08/29/18 Rx Carvedilol (Carvedilol) 3.125 Mg Tablet 3.125 Mg PO BIDWMEALS 30 08/29/18 Rx Duoneb 0.5-3(2.5) Mg/3 Ml (Albuterol/Ipratropium) 3 Ml Ampul.neb 3 Ml NEB RTQID 30 08/29/18 Rx Brilinta (Ticagrelor) 90 Mg Tablet 90 Mg PO BID 30 08/29/18 Rx Vitamin D2 (Ergocalciferol (Vitamin D2)) 50,000 Unit Capsule 50,000 Unit PO WEEKLY 04/02/18 Rx Dialyvite Tablet (Folic Acid/Vitamin B Comp W-C) 1 Each Tablet 1 Each PO 03/28/18 Reported Impression . IMPRESSION: 1. Udfqj-ne-[id number] respiratory failure secondary to acute diastolic and systolic congestive heart failure, mild acute exacerbation of chronic obstructive pulmonary disease versus others. 2. Abnormal chest x-ray as mentioned as above. 3. Coronary artery disease, status post percutaneous coronary intervention. 4. End-stage renal disease, on hemodialysis. 5. Hypertension. 6. Recurrent pleural effusion, suspect secondary to acute systolic and diastolic congestive heart failure and volume overload vs others 7. Ischemic cardiomyopathy with ejection fraction of 40%. 8. Chronic obstructive pulmonary disease with mild acute exacerbation. 9. Anemia. 10. Tobacco habituation. Plan . PLAN AND RECOMMENDATIONS: 1. I had a long discussion with him regarding the smoking cessation. I have advised him to stop smoking forever. 2. s/p left-sided thoracentesis, fu pleural study 3. Cardiology is on case. 4. He would require aggressive hemodialysis, currently is refusing hemodialysis. I have advised him to reconsider. 5. Monitor troponin. 6. Continue bronchodilator. 7. Continue BD and inhaled corticosteroid, 8. Lower extremity venous Doppler, neg. discussed w rn, pt BRYAN NICOLE MD February 18, 2019 07:41
[2019-02-18] MEDS: BUDESONIDE 0.5 MG/2 ML NEBU. NEB SCH (08:00)
[2019-02-18] MEDS: IPRATRPIUM/ALBUTEROL 0.5/2.5MG 3 ML NEBU. NEB SCH ×2 (08:01→11:53)
[2019-02-18] MEDS: FUROSEMIDE 80 MG TABLET. PO SCH (08:13)
[2019-02-18] MEDS: CALCIUM ACETATE 667 MG CAPSULE PO SCH ×2 (08:14→12:10)
[2019-02-18] MEDS: OMEGA-3 FATTY ACIDS/FISH OIL 1,000 MG CAPSULE. PO SCH (08:14)
[2019-02-18] MEDS: PANTOPRAZOLE 40 MG TABLET.DR. PO SCH (08:14)
[2019-02-18] MEDS: MULTIVITAMIN with MINERAL TABLET. PO SCH (08:14)
[2019-02-18] MEDS: METOPROLOL SUCC 24HR ER 25 MG TAB.ER.24H. PO SCH (08:14)
[2019-02-18] MEDS: TICAGRELOR 90 MG TABLET. PO SCH (08:14)
[2019-02-18] MEDS: ASPIRIN CHEWABLE 81 MG TABLET. PO SCH (08:14)
[2019-02-18] MEDS: METOCLOPRAMIDE 5 MG TABLET. PO SCH (08:14)
[2019-02-18] MEDS: amLODIPine BESYLATE 10 MG TABLET PO SCH (08:15)
[2019-02-18] MEDS: LISINOPRIL 20 MG TABLET PO SCH (08:15)
[2019-02-18] MEDS: hydrALAZINE 10 MG TABLET PO SCH (08:15)
[2019-02-18] MEDS: INSULIN LISPRO 300 UNITS/3 ML INSULN.PEN. SQ SCH ×4 (08:22→12:15)
[2019-02-18 11:00] VITALS: BP 151/69
[2019-02-18] MEDS ORDERED: FURO80TA72 PO (12:50)
[2019-02-18] MEDS ORDERED: FURO80TA3 PO (12:51)
--- NOTE | 2019-02-18 12:52 | PDOC ---
SUBJECTIVE ROS Follow-up for ESRD on hemodialysis Tuesday Patient is eager on going home now. CVS: no Orthopnea, no CP RESP: no SOB, no RODRIGUEZ GI: no Nausea, no Vomiting : no Dysuria, no Urgency OBJECTIVE Vital Signs Vital Signs Date Time Temp Pulse Resp B/P (MAP) Pulse Ox O2 Delivery O2 Flow Rate FiO2 02/18/19 11:54 Nasal Cannula 4.0 02/18/19 08:15 80 02/18/19 08:01 96 02/18/19 07:00 97.8 14 163/75 (104) 97.8 I & 0 Intake and Output 02/18/19 07:00 Intake Total 1140 ml Balance 1140 ml Intake Oral 1140 ml PHYSICAL EXAM Physical Exam General Appearance: Awake Alert Oriented x 3 In no Distress Eyes: VIsion Unchanged Conjunctiva Normal EN: No EN Drainage Mucous Memb. moist Neck: no JVD min JVP Supple no Thyromegaly CVS: S1 S2 soft Murmur No Gallop No Rub ++ Edema Resp: LLL Rales occ Rhonchi no Acc. Muscle use GI: BAS +ve NO Bruit Non Tender Non Distended : no CVA tenderness; no Suprapubic Tenderness Assessment & Plan ESRD: Patient did not get his full session of dialysis on Tuesday. I offered him another round of dialysis yesterday but he refused. He tells me he wants to let his fistula rest until morris and will go to OP HD in am Pleural effusion: now s/p thoracentesis 2.0 L Poorly controlled DM: Sugars still running in the 200s range. Anemia: Will start Epogen once hemoglobin less than 10. Transfuse with next HD as needed. HTN: Current BP meds reviewed. See orders for changes. Edema lower extremity: It is felt that he may have some level of myxedema associated with his long-term poorly controlled thyroid state Bone & Mineral: We'll monitor phosphorus especially once sugars are better controlled. Alter binder regimen as needed non-compliance with Fluid, dietary restriction and medications: have Discussed with patient and both about the same in detail yest. reportedly he eats well and so may have gained some Body wt too. Hypoalbuminemia: We will check urine protein creatinine ratio since he still produces urine. Tendency to high inter-dialytic weight gain: Start PO Lasix as ordered Discussed Plan of Care and prognosis etc. at length with family. COMMENT/RELEVANT DATA Meds Current Medications Medications (Trade) Dose Ordered Sig/Celi Start Time Stop Time Status Last Admin Dose Admin Acetaminophen (Tylenol) 650 mg PRN Q6HRS PRN 02/16/19 23:00 Albuterol Sulfate (Ventolin Neb Soln) 2.5 mg 1X ONCE 02/16/19 23:00 02/16/19 23:04 DC 02/16/19 23:55 2.5 MG Albuterol/ Ipratropium (Duoneb) 3 ml RTQID 02/17/19 08:00 02/18/19 11:53 3 ML Amlodipine Besylate (Norvasc) 10 mg DAILY 02/17/19 09:00 02/18/19 08:15 10 MG Aspirin (Children'S Aspirin) 81 mg DAILYWBKFT 02/17/19 08:00 02/18/19 08:14 81 MG Budesonide (Pulmicort) 0.5 mg RTBID 02/17/19 08:00 02/18/19 08:00 0.5 MG Calcium Acetate (Phoslo) 667 mg TIDWMEALS 02/17/19 08:00 02/18/19 12:10 667 MG Calcium Carbonate/ Glycine (Tums) 500 mg QIDPRN PRN 02/17/19 07:30 02/17/19 07:37 500 MG Carvedilol (Coreg) 3.125 mg BIDWMEALS 02/17/19 08:00 02/17/19 08:00 DC Dextrose (Dextrose 50%-Water Syringe) 12.5 gm PRN Q15MIN PRN 02/16/19 22:15 Fentanyl Citrate (Fentanyl 2ml Vial) 50 mcg PRN Q1HR PRN 02/16/19 20:30 02/17/19 20:29 DC Ferrous Sulfate (Feosol) 325 mg DAILY 02/17/19 09:00 02/17/19 11:18 DC 02/17/19 08:36 325 MG Fish Oil (Fish Oil) 1,000 mg DAILY 02/17/19 09:00 02/18/19 08:14 1,000 MG Furosemide (Lasix) 80 mg BID 02/17/19 12:00 02/18/19 08:13 80 MG Hydralazine HCl (Apresoline Inj) 20 mg 1X ONCE 02/16/19 23:45 02/16/19 23:46 DC 02/16/19 23:51 20 MG Hydralazine HCl (Apresoline) 10 mg TID 02/17/19 09:00 02/18/19 08:15 10 MG Insulin Glargine (Lantus) 15 units QHS 02/17/19 21:00 02/17/19 21:35 15 UNITS Insulin Human Lispro (HumaLOG) 12 units 1X ONCE 02/17/19 06:15 02/17/19 06:16 DC 02/17/19 06:15 12 UNITS Labetalol HCl (Normodyne Iv Push) 20 mg 1X ONCE 02/16/19 19:00 02/16/19 19:01 DC 02/16/19 19:13 20 MG Levofloxacin/ Dextrose 150 ml @ 100 mls/hr 1X ONCE 02/16/19 20:00 02/16/19 21:29 DC 02/16/19 22:45 100 MLS/HR Levothyroxine Sodium (Synthroid) 175 mcg DAILY06 02/17/19 06:00 02/18/19 06:35 175 MCG Lisinopril (Prinivil) 20 mg DAILY 02/17/19 09:00 02/18/19 08:15 20 MG Magnesium Sulfate 50 ml @ 25 mls/hr PRN DAILY PRN 02/17/19 11:30 Methylprednisolone Sodium Succinate (SOLU-Medrol 125MG VIAL) 125 mg 1X ONCE 02/16/19 19:00 02/16/19 19:01 DC 02/16/19 19:13 125 MG Metoclopramide HCl (Reglan) 5 mg BIDAC 02/17/19 07:30 02/18/19 08:14 5 MG Metoprolol Succinate (Toprol Xl) 12.5 mg DAILY 02/17/19 09:00 02/18/19 08:14 12.5 MG Multivitamins (Thera M Plus) 1 tab DAILY 02/17/19 09:00 02/18/19 08:14 1 TAB Ondansetron HCl (Zofran) 4 mg PRN Q8HRS PRN 02/16/19 20:30 02/17/19 20:29 DC Pantoprazole Sodium (Protonix) 40 mg DAILYAC 02/17/19 07:30 02/18/19 08:14 40 MG Ticagrelor (Brilinta) 90 mg BID 02/17/19 09:00 02/18/19 08:14 90 MG Lab Laboratory Tests Test 02/17/19 14:20 02/17/19 14:30 02/17/19 14:51 02/17/19 17:45 Body Fluid Source Pleural Body Fluid Color Yellow Body Fluid Clarity Clear Body Fluid Nucleated Cells 199 /cmm (Not Established) Body Fluid Mononuclear WBCs (%) 56 % Body Fluid Polymorphonuclear Cells 10 % Body Fluid Total RBCs Counted 108 /cmm (Not Established) Body Fluid Other Cells (%) 34 % Body Fluid pH 7.52 Glucose (Fingerstick) 160 mg/dL (70-99) 210 mg/dL (70-99) Test 02/17/19 20:29 02/18/19 03:30 02/18/19 07:50 02/18/19 12:03 Glucose (Fingerstick) 235 mg/dL (70-99) 161 mg/dL (70-99) 99 mg/dL (70-99) Hemoglobin 10.3 g/dL (13.0-17.5) Sodium Level 137 mmol/L (136-145) Potassium Level 4.0 mmol/L (3.5-5.1) Chloride Level 99 mmol/L (98-107) Carbon Dioxide Level 25 mmol/L (21-32) Anion Gap 13 (6-14) Blood Urea Nitrogen 55 mg/dL (8-26) Creatinine 7.5 mg/dL (0.7-1.3) Estimated GFR (Cockcroft-Gault) 7.6 Glucose Level 224 mg/dL (70-99) Calcium Level 8.7 mg/dL (8.5-10.1) Phosphorus Level 5.2 mg/dL (2.6-4.7) Magnesium Level 1.9 mg/dL (1.8-2.4) Albumin 2.9 g/dL (3.4-5.0) Results All relevant outside records, renal labs, imaging studies, telemetry/EKG's were reviewed. CHARLES KOROMA MD February 18, 2019 12:52
--- NOTE | 2019-02-18 13:27 | PDOC ---
[employer] PROGRESS NOTE Chief Complaint Chief Complaint Acute on chronic systolic and diastolic heart failure Large right pleural effusion Multifactorial respiratory failure CAD ESRD on dialysis Hypertension, UNcontrolled Diabetes 2- poorly controlled History of cardiac stents- tobacco ABUSE DISORDER History of Present Illness History of Present Illness Patient seen and examined I discussed with his nurse S/P thoracocentesis Repeat CXR showed much improvement Vitals Vitals Vital Signs Date Time Temp Pulse Resp B/P (MAP) Pulse Ox O2 Delivery O2 Flow Rate FiO2 02/18/19 11:54 Nasal Cannula 4.0 02/18/19 11:00 97.8 72 16 151/69 (96) 96 97.8 Physical Exam General: Alert, Oriented X3, Cooperative, No acute distress Heart: Regular rate, Normal S1, Normal S2, Other (S3 gallop) Lungs: Clear Abdomen: Normal bowel sounds, Soft Extremities: Other (1+ edema) Skin: No rashes, No breakdown Labs Labs: Laboratory Tests Test 02/17/19 14:20 02/17/19 14:30 02/17/19 14:51 02/17/19 17:45 Body Fluid Source Pleural Body Fluid Color Yellow Body Fluid Clarity Clear Body Fluid Nucleated Cells 199 /cmm (Not Established) Body Fluid Mononuclear WBCs (%) 56 % Body Fluid Polymorphonuclear Cells 10 % Body Fluid Total RBCs Counted 108 /cmm (Not Established) Body Fluid Other Cells (%) 34 % Body Fluid pH 7.52 Glucose (Fingerstick) 160 mg/dL (70-99) 210 mg/dL (70-99) Test 02/17/19 20:29 02/18/19 03:30 02/18/19 07:50 02/18/19 12:03 Glucose (Fingerstick) 235 mg/dL (70-99) 161 mg/dL (70-99) 99 mg/dL (70-99) Hemoglobin 10.3 g/dL (13.0-17.5) Sodium Level 137 mmol/L (136-145) Potassium Level 4.0 mmol/L (3.5-5.1) Chloride Level 99 mmol/L (98-107) Carbon Dioxide Level 25 mmol/L (21-32) Anion Gap 13 (6-14) Blood Urea Nitrogen 55 mg/dL (8-26) Creatinine 7.5 mg/dL (0.7-1.3) Estimated GFR (Cockcroft-Gault) 7.6 Glucose Level 224 mg/dL (70-99) Calcium Level 8.7 mg/dL (8.5-10.1) Phosphorus Level 5.2 mg/dL (2.6-4.7) Magnesium Level 1.9 mg/dL (1.8-2.4) Albumin 2.9 g/dL (3.4-5.0) Test 02/18/19 12:15 Urine Random Creatinine 71.0 mg/dL (Not Establ.) Urine Random Total Protein 1012.0 mg/dL (Not Establ.) Urine Protein/Creatinine Ratio 68787 mg/g (0-200) Review of Systems Review of Systems Denies SOB Denies chest pain Assessment and Plan Assessmemt and Plan Problems Medical Problems: (1) CHF exacerbation Status: Acute (2) Elevated troponin Status: Acute Assessment: Acute on chronic systolic and diastolic heart failure Large right pleural effusion Multifactorial respiratory failure CAD ESRD on dialysis Hypertension, UNcontrolled Diabetes 2- poorly controlled History of cardiac stents- tobacco ABUSE DISORDER Plan: IV Lasix DVT prophylaxis Full code Dialysis Tuesday Home meds Frequent labs Pulmonary is following Probable discharge if subspecialists agree Comment Review of Relevant I have reviewed the following items yesenia (where applicable) has been applied. Labs Laboratory Tests Test 02/16/19 18:34 02/16/19 21:00 02/16/19 21:54 02/16/19 23:54 White Blood Count 6.2 x10^3/uL (4.0-11.0) Red Blood Count 3.64 x10^6/uL (4.30-5.70) Hemoglobin 10.6 g/dL (13.0-17.5) Hematocrit 32.9 % (39.0-53.0) Mean Corpuscular Volume 90 fL (79-100) Mean Corpuscular Hemoglobin 29 pg (25-35) Mean Corpuscular Hemoglobin Concent 32 g/dL (31-37) Red Cell Distribution Width 19.7 % (11.5-14.5) Platelet Count 157 x10^3/uL (140-400) Neutrophils (%) (Auto) 59 % (31-73) Lymphocytes (%) (Auto) 26 % (24-48) Monocytes (%) (Auto) 7 % (0-9) Eosinophils (%) (Auto) 7 % (0-3) Basophils (%) (Auto) 1 % (0-3) Neutrophils # (Auto) 3.6 x10^3uL (1.8-7.7) Lymphocytes # (Auto) 1.6 x10^3/uL (1.0-4.8) Monocytes # (Auto) 0.4 x10^3/uL (0.0-1.1) Eosinophils # (Auto) 0.4 x10^3/uL (0.0-0.7) Basophils # (Auto) 0.1 x10^3/uL (0.0-0.2) Prothrombin Time 12.6 SEC (11.7-14.0) Prothromb Time International Ratio 1.0 (0.8-1.1) Sodium Level 138 mmol/L (136-145) Potassium Level 3.4 mmol/L (3.5-5.1) Chloride Level 99 mmol/L (98-107) Carbon Dioxide Level 29 mmol/L (21-32) Anion Gap 10 (6-14) Blood Urea Nitrogen 35 mg/dL (8-26) Creatinine 6.2 mg/dL (0.7-1.3) Estimated GFR (Cockcroft-Gault) 9.4 BUN/Creatinine Ratio 6 (6-20) Glucose Level 446 mg/dL (70-99) Calcium Level 8.2 mg/dL (8.5-10.1) Total Bilirubin 0.5 mg/dL (0.2-1.0) Aspartate Amino Transf (AST/SGOT) 25 U/L (15-37) Alanine Aminotransferase (ALT/SGPT) 14 U/L (16-63) Alkaline Phosphatase 120 U/L (46-116) Troponin I Quantitative 0.062 ng/mL (0.000-0.055) ZN-Kka-F-Type Natriuretic Peptide > 55808 pg/mL (0-124) Total Protein 6.6 g/dL (6.4-8.2) Albumin 3.0 g/dL (3.4-5.0) Albumin/Globulin Ratio 0.8 (1.0-1.7) Lactic Acid Level 0.8 mmol/L (0.4-2.0) Glucose (Fingerstick) 432 mg/dL (70-99) 455 mg/dL (70-99) Test 02/17/19 01:30 02/17/19 02:19 02/17/19 03:11 02/17/19 04:30 Glucose (Fingerstick) 413 mg/dL (70-99) 399 mg/dL (70-99) Nasal Screen MRSA (PCR) Negative (Negative) White Blood Count 4.2 x10^3/uL (4.0-11.0) Red Blood Count 3.70 x10^6/uL (4.30-5.70) Hemoglobin 10.9 g/dL (13.0-17.5) Hematocrit 33.3 % (39.0-53.0) Mean Corpuscular Volume 90 fL (79-100) Mean Corpuscular Hemoglobin 29 pg (25-35) Mean Corpuscular Hemoglobin Concent 33 g/dL (31-37) Red Cell Distribution Width 19.3 % (11.5-14.5) Platelet Count 170 x10^3/uL (140-400) Neutrophils (%) (Auto) 87 % (31-73) Lymphocytes (%) (Auto) 11 % (24-48) Monocytes (%) (Auto) 1 % (0-9) Eosinophils (%) (Auto) 0 % (0-3) Basophils (%) (Auto) 1 % (0-3) Neutrophils # (Auto) 3.6 x10^3uL (1.8-7.7) Lymphocytes # (Auto) 0.5 x10^3/uL (1.0-4.8) Monocytes # (Auto) 0.0 x10^3/uL (0.0-1.1) Eosinophils # (Auto) 0.0 x10^3/uL (0.0-0.7) Basophils # (Auto) 0.0 x10^3/uL (0.0-0.2) Segmented Neutrophils % 89 % (35-66) Lymphocytes % 10 % (24-48) Monocytes % 1 % (0-10) Platelet Estimate Adequate (ADEQUATE) Anisocytosis Slight Schistocytes Occ Sodium Level 139 mmol/L (136-145) Potassium Level 3.7 mmol/L (3.5-5.1) Chloride Level 99 mmol/L (98-107) Carbon Dioxide Level 25 mmol/L (21-32) Anion Gap 15 (6-14) Blood Urea Nitrogen 44 mg/dL (8-26) Creatinine 6.7 mg/dL (0.7-1.3) Estimated GFR (Cockcroft-Gault) 8.6 BUN/Creatinine Ratio 7 (6-20) Glucose Level 414 mg/dL (70-99) Calcium Level 9.0 mg/dL (8.5-10.1) Total Bilirubin 0.5 mg/dL (0.2-1.0) Aspartate Amino Transf (AST/SGOT) 23 U/L (15-37) Alanine Aminotransferase (ALT/SGPT) 15 U/L (16-63) Alkaline Phosphatase 115 U/L (46-116) Lactate Dehydrogenase 249 U/L (85-227) Total Protein 6.8 g/dL (6.4-8.2) Albumin 3.1 g/dL (3.4-5.0) Albumin/Globulin Ratio 0.8 (1.0-1.7) Test 02/17/19 04:34 02/17/19 07:38 02/17/19 11:48 02/17/19 14:20 Glucose (Fingerstick) 359 mg/dL (70-99) 271 mg/dL (70-99) 212 mg/dL (70-99) Body Fluid Source Pleural Body Fluid Color Yellow Body Fluid Clarity Clear Body Fluid Nucleated Cells 199 /cmm (Not Established) Body Fluid Mononuclear WBCs (%) 56 % Body Fluid Polymorphonuclear Cells 10 % Body Fluid Total RBCs Counted 108 /cmm (Not Established) Body Fluid Other Cells (%) 34 % Test 02/17/19 14:30 02/17/19 14:51 02/17/19 17:45 02/17/19 20:29 Body Fluid pH 7.52 Glucose (Fingerstick) 160 mg/dL (70-99) 210 mg/dL (70-99) 235 mg/dL (70-99) Test 02/18/19 03:30 02/18/19 07:50 02/18/19 12:03 02/18/19 12:15 Hemoglobin 10.3 g/dL (13.0-17.5) Sodium Level 137 mmol/L (136-145) Potassium Level 4.0 mmol/L (3.5-5.1) Chloride Level 99 mmol/L (98-107) Carbon Dioxide Level 25 mmol/L (21-32) Anion Gap 13 (6-14) Blood Urea Nitrogen 55 mg/dL (8-26) Creatinine 7.5 mg/dL (0.7-1.3) Estimated GFR (Cockcroft-Gault) 7.6 Glucose Level 224 mg/dL (70-99) Calcium Level 8.7 mg/dL (8.5-10.1) Phosphorus Level 5.2 mg/dL (2.6-4.7) Magnesium Level 1.9 mg/dL (1.8-2.4) Albumin 2.9 g/dL (3.4-5.0) Glucose (Fingerstick) 161 mg/dL (70-99) 99 mg/dL (70-99) Urine Random Creatinine 71.0 mg/dL (Not Establ.) Urine Random Total Protein 1012.0 mg/dL (Not Establ.) Urine Protein/Creatinine Ratio 63841 mg/g (0-200) Laboratory Tests Test 02/17/19 14:20 02/17/19 14:30 02/17/19 14:51 02/17/19 17:45 Body Fluid Source Pleural Body Fluid Color Yellow Body Fluid Clarity Clear Body Fluid Nucleated Cells 199 /cmm (Not Established) Body Fluid Mononuclear WBCs (%) 56 % Body Fluid Polymorphonuclear Cells 10 % Body Fluid Total RBCs Counted 108 /cmm (Not Established) Body Fluid Other Cells (%) 34 % Body Fluid pH 7.52 Glucose (Fingerstick) 160 mg/dL (70-99) 210 mg/dL (70-99) Test 02/17/19 20:29 02/18/19 03:30 02/18/19 07:50 02/18/19 12:03 Glucose (Fingerstick) 235 mg/dL (70-99) 161 mg/dL (70-99) 99 mg/dL (70-99) Hemoglobin 10.3 g/dL (13.0-17.5) Sodium Level 137 mmol/L (136-145) Potassium Level 4.0 mmol/L (3.5-5.1) Chloride Level 99 mmol/L (98-107) Carbon Dioxide Level 25 mmol/L (21-32) Anion Gap 13 (6-14) Blood Urea Nitrogen 55 mg/dL (8-26) Creatinine 7.5 mg/dL (0.7-1.3) Estimated GFR (Cockcroft-Gault) 7.6 Glucose Level 224 mg/dL (70-99) Calcium Level 8.7 mg/dL (8.5-10.1) Phosphorus Level 5.2 mg/dL (2.6-4.7) Magnesium Level 1.9 mg/dL (1.8-2.4) Albumin 2.9 g/dL (3.4-5.0) Test 02/18/19 12:15 Urine Random Creatinine 71.0 mg/dL (Not Establ.) Urine Random Total Protein 1012.0 mg/dL (Not Establ.) Urine Protein/Creatinine Ratio 56037 mg/g (0-200) Microbiology 02/16/19 Blood Culture - Preliminary, Resulted NO GROWTH AFTER 1 DAY Medications Current Medications Methylprednisolone Sodium Succinate (SOLU-Medrol 125MG VIAL) 125 mg 1X ONCE IV Last administered on 02/16/19 19:13; Start 02/16/19 at 19:00; Stop 02/16/19 at 19:01; Status DC Albuterol/ Ipratropium (Duoneb) 3 ml 1X ONCE NEB Last administered on 02/16/19at 19:19; Start 02/16/19 at 19:00; Stop 02/16/19 at 19:01; Status DC Labetalol HCl (Normodyne Iv Push) 20 mg 1X ONCE IVP Last administered on 02/16/19 19:13; Start 02/16/19 at 19:00; Stop 02/16/19 at 19:01; Status DC Levofloxacin/ Dextrose 150 ml @ 100 mls/hr 1X ONCE IV Last administered on 02/16/19at 22:45; Start 02/16/19 at 20:00; Stop 02/16/19 at 21:29; Status DC Furosemide (Lasix) 40 mg 1X ONCE IVP Last administered on 02/16/19at 20:54; Start 02/16/19 at 20:15; Stop 02/16/19 at 20:16; Status DC Ondansetron HCl (Zofran) 4 mg PRN Q8HRS PRN IV NAUSEA/VOMITING 1ST CHOICE; Start 02/16/19 at 20:30; Stop 02/17/19 at 20:29; Status DC Fentanyl Citrate (Fentanyl 2ml Vial) 50 mcg PRN Q1HR PRN IV SEVERE PAIN; Start 02/16/19 at 20:30; Stop 02/17/19 at 20:29; Status DC Hydralazine HCl (Apresoline Inj) 10 mg PRN Q4HRS PRN IVP ELEVATED BP, SEE COMMENTS Last administered on 02/16/19at 22:12; Start 02/16/19 at 22:15; Stop 02/16/19 at 23:33; Status DC Insulin Human Lispro (HumaLOG) 0-7 UNITS TIDWMEALS SQ Last administered on 02/18/19at 08:22; Start 02/17/19 at 08:00 Dextrose (Dextrose 50%-Water Syringe) 12.5 gm PRN Q15MIN PRN IV SEE COMMENTS; Start 02/16/19 at 22:15 Albuterol Sulfate (Ventolin Neb Soln) 2.5 mg PRN QID PRN NEB SHORTNESS OF BREATH; Start 02/17/19 at 08:00 Furosemide (Lasix) 80 mg 1X ONCE IVP Last administered on 02/16/19at 22:45; Start 02/16/19 at 23:00; Stop 02/16/19 at 23:04; Status DC Albuterol Sulfate (Ventolin Neb Soln) 3 mg 1X ONCE NEB ; Start 02/16/19 at 23:00; Stop 02/16/19 at 23:00; Status DC Albuterol Sulfate (Ventolin Neb Soln) 2.5 mg 1X ONCE NEB Last administered on 02/16/19at 23:55; Start 02/16/19 at 23:00; Stop 02/16/19 at 23:04; Status DC Insulin Human Lispro (HumaLOG) 6 units 1X ONCE SQ Last administered on 02/16/19at 22:57; Start 02/16/19 at 23:00; Stop 02/16/19 at 23:04; Status DC Acetaminophen (Tylenol) 650 mg PRN Q6HRS PRN PO MILD PAIN / TEMP; Start at 23:00 Amlodipine Besylate (Norvasc) 10 mg DAILY PO Last administered on 02/18/19at 08:15; Start 02/17/19 at 09:00 Aspirin (Children'S Aspirin) 81 mg DAILYWBKFT PO Last administered on 02/18/19at 08:14; Start 02/17/19 at 08:00 Budesonide (Pulmicort) 0.5 mg RTBID NEB Last administered on 02/18/19 08:00; Start 02/17/19 at 08:00 Carvedilol (Coreg) 3.125 mg BIDWMEALS PO ; Start 02/17/19 at 08:00; Stop 02/17/19 at 08:00; Status DC Ferrous Sulfate (Feosol) 325 mg DAILY PO Last administered on 02/17/19 08:36; Start 02/17/19 at 09:00; Stop 02/17/19 at 11:18; Status DC Insulin Glargine (Lantus) 15 units QHS SQ Last administered on 02/17/19 21:35; Start 02/17/19 at 21:00 Albuterol/ Ipratropium (Duoneb) 3 ml RTQID NEB Last administered on 02/18/19 11:53; Start 02/17/19 at 08:00 Levothyroxine Sodium (Synthroid) 175 mcg DAILY06 PO Last administered on 02/18/19 06:35; Start 02/17/19 at 06:00 Lisinopril (Prinivil) 20 mg DAILY PO Last administered on 02/18/19 08:15; Start 02/17/19 at 09:00 Metoclopramide HCl (Reglan) 5 mg BIDAC PO Last administered on 02/18/19 08:14; Start 02/17/19 at 07:30 Metoprolol Succinate (Toprol Xl) 12.5 mg DAILY PO Last administered on 02/18/19 08:14; Start 02/17/19 at 09:00 Ticagrelor (Brilinta) 90 mg BID PO Last administered on 02/18/19 08:14; Start 02/17/19 at 09:00 Calcium Acetate (Phoslo) 667 mg TIDWMEALS PO Last administered on 02/18/19 12:10; Start 02/17/19 at 08:00 Hydralazine HCl (Apresoline) 10 mg TID PO Last administered on 02/18/19 08:15; Start 02/17/19 at 09:00 Insulin Human Lispro (HumaLOG) 6 units TIDWMEALS SQ Last administered on 02/18/19 12:15; Start 02/17/19 at 08:00 Fish Oil (Fish Oil) 1,000 mg DAILY PO Last administered on 02/18/19at 08:14; Start 02/17/19 at 09:00 Pantoprazole Sodium (Protonix) 40 mg DAILYAC PO Last administered on 02/18/19at 08:14; Start 02/17/19 at 07:30 Multivitamins (Thera M Plus) 1 tab DAILY PO Last administered on 02/18/19at 08:14; Start 02/17/19 at 09:00 Hydralazine HCl (Apresoline Inj) 20 mg PRN Q4HRS PRN IVP ELEVATED BP, SEE CO MMENTS Last administered on 02/17/19at 03:52; Start 02/16/19 at 23:45 Hydralazine HCl (Apresoline Inj) 20 mg 1X ONCE IVP Last administered on 02/16/19at 23:51; Start 02/16/19 at 23:45; Stop 02/16/19 at 23:46; Status DC Insulin Human Lispro (HumaLOG) 5 units 1X ONCE SQ Last administered on 02/17/19at 00:10; Start 02/17/19 at 00:00; Stop 02/17/19 at 00:12; Status DC Insulin Human Lispro (HumaLOG) 10 units 1X ONCE SQ Last administered on 02/17/19at 01:58; Start 02/17/19 at 02:00; Stop 02/17/19 at 02:01; Status DC Insulin Human Lispro (HumaLOG) 8 units 1X ONCE SQ Last administered on 02/17/19at 03:31; Start 02/17/19 at 03:30; Stop 02/17/19 at 03:31; Status DC Insulin Human Lispro (HumaLOG) 12 units 1X ONCE SQ Last administered on 02/17/19at 06:15; Start 02/17/19 at 06:15; Stop 02/17/19 at 06:16; Status DC Calcium Carbonate/ Glycine (Tums) 500 mg QIDPRN PRN PO INDIGESTION Last a dministered on 02/17/19at 07:37; Start 02/17/19 at 07:30 Magnesium Sulfate 50 ml @ 25 mls/hr PRN DAILY PRN IV for Mag < 1.7 on am labs; Start 02/17/19 at 11:30 Furosemide (Lasix) 80 mg BID PO Last administered on 02/18/19at 08:13; Start 02/17/19 at 12:00 Active Scripts Active Amox Tr-K Clv 500-125 Mg Tab (Amoxicillin/Potassium Clav) 1 Each Tablet 1 Tab PO DAILY Hydralazine Hcl 10 Mg Tablet 10 Mg PO TID MDD 1 Amlodipine Besylate 10 Mg Tablet 10 Mg PO DAILY MDD 1 Lisinopril 40 Mg Tablet 20 Mg PO DAILY MDD 1 [Pantoprazole] 40 MG Tablet.dr 40 Mg PO DAILYAC 30 Days Trazodone Hcl 100 Mg Tablet 100 Mg PO PRN QHS PRN 30 Days Lantus Solostar (Insulin Glargine,Hum.rec.anlog) 100 Unit/1 Ml Insuln.pen 15 Units SQ QHS 30 Days Budesonide 0.5 Mg/2 Ml Ampul.neb 0.5 Mg NEB RTBID 30 Days Aspirin 81 Mg Tab.chew 81 Mg PO DAILYWBKFT 30 Days Carvedilol (Carvedilol) 3.125 Mg Tablet 3.125 Mg PO BIDWMEALS 30 Days Duoneb 0.5-3(2.5) Mg/3 Ml (Albuterol/Ipratropium) 3 Ml Ampul.neb 3 Ml NEB RTQID 30 Days Brilinta (Ticagrelor) 90 Mg Tablet 90 Mg PO BID 30 Days Vitamin D2 (Ergocalciferol (Vitamin D2)) 50,000 Unit Capsule 50,000 Unit PO WEEKLY Reported Furosemide 80 Mg Tablet 80 Mg PO BID [place] 3 Fish Oil Softgel ([place]-3 Fatty Acids/Fish Oil) 1 Each Capsule.dr 1 Each PO DAILY Toprol Xl (Metoprolol Succinate) 25 Mg Tab.er.24h 0.5 Tab PO DAILY Lasix (Furosemide) 80 Mg Tablet 80 Mg PO DAILY Calcium Acetate 667 Mg Tablet 667 Mg PO TIDWMEALS Tylenol (Acetaminophen) 325 Mg Tablet 650 Mg PO PRN Q6HRS Humalog (Insulin Lispro) 100 Unit/1 Ml Cartridge 6 Unit SQ TIDBFRMEAL Ferrous Sulfate 325 Mg Tablet 1 Tab PO DAILY Levothyroxine Sodium 175 Mcg Tablet 1 Tab PO DAILY Reglan (Metoclopramide Hcl) 10 Mg Tablet 5 Mg PO BIDAC Dialyvite Tablet (Folic Acid/Vitamin B Comp W-C) 1 Each Tablet 1 Each PO Vitals/I & O Vital Sign - Last 24 Hours 02/17/19 02/17/19 02/17/19 02/17/19 14:31 14:52 16:00 16:36 Temp 96.7 96.7 Pulse 70 70 68 Resp 20 18 B/P (MAP) 168/79 (108) 168/79 158/73 (101) Pulse Ox 96 96 96 O2 Delivery Room Air Room Air Room Air 02/17/19 02/17/19 02/17/19 02/17/19 19:17 20:01 20:15 21:32 Temp 97.7 97.7 Pulse 70 70 Resp 18 B/P (MAP) 147/70 (95) 147/70 Pulse Ox 98 96 O2 Delivery Room Air Room Air Nasal Cannula O2 Flow Rate 5.0 02/17/19 02/18/19 02/18/19 02/18/19 22:28 02:00 07:00 08:01 Temp 97.5 97.9 97.8 97.5 97.9 97.8 Pulse 81 78 72 Resp 16 20 14 B/P (MAP) 146/61 (89) 161/76 (104) 163/75 (104) Pulse Ox 94 91 99 96 O2 Delivery Room Air Room Air Nasal Cannula Nasal Cannula O2 Flow Rate 4.5 4.0 02/18/19 02/18/19 02/18/19 02/18/19 08:05 08:14 08:15 08:15 Pulse 80 80 80 O2 Delivery Nasal Cannula O2 Flow Rate 4.0 02/18/19 02/18/19 02/18/19 08:15 11:00 11:54 Temp 97.8 97.8 Pulse 80 72 Resp 16 B/P (MAP) 151/69 (96) Pulse Ox 96 O2 Delivery Room Air Nasal Cannula O2 Flow Rate 4.0 Intake and Output 02/17/19 02/17/19 02/18/19 15:00 23:00 07:00 Intake Total 120 ml 1020 ml Balance 120 ml 1020 ml LAKESHA RODRIGUEZ K III DO February 18, 2019 13:27
--- NOTE | 2019-02-18 13:35 | NUR ---
Discharge: Teaching verbal and written. Reviewed medication, follow-up, dialysis, diet, 1L fluid restriction, CHF, ect. Patient and verbalized understanding. All belongings with patient. IV removed without complications, catheter tip-intact. All belongings with patient.
--- NOTE | 2019-02-18 14:02 | DS ---
DATE OF DISCHARGE: 02/18/2019 ADMISSION DIAGNOSES: Pleural effusion and end-stage renal disease, on dialysis. DISCHARGE DIAGNOSIS:. Post-procedure thoracentesis. CONSULTS: Nephrology and Pulmonary. PROCEDURES: Thoracentesis. HOSPITAL COURSE: The patient is a pleasant middle-aged male who is on dialysis. Basically, he presented short of breath and we did a chest x-ray, which showed a pleural effusion on the left. We admitted him. We gave him more IV Lasix because he does respond well to that; currently, he is on 80 b.i.d. We also did a thoracentesis. The cytology is pending, but the initial fluid testing is reasonable. We plan to discharge if okay with Nephrology and Pulmonary. DISPOSITION: Home. ACTIVITY: As tolerated. DIET: Renal. MEDICATIONS: Please see the MRAD. LAKESHA RODRIGUEZ DO DR: PRADIP/radha JOB#: [id number] / [id number]
--- NOTE | 2019-02-18 14:56 | EKG ---
[facility] [address] [place] [address] Test Date: 2019-02-16 Test Time: 18:34:54 Pat Name: SEBASTIAN ANGULO Department: Room: Gender: M Gore Seamer: : 1960 Requested By: SANDRINE ENGEL Order Number: [id number] Reading MD: Measurements Intervals Warner Rate: 80 P: 39 DE: 194 QRS: -166 QRSD: 108 T: 66 QT: 404 QTc: 470 Interpretive Statements SINUS RHYTHM INCOMPLETE RIGHT BUNDLE BRANCH BLOCK RIGHT VENTRICULAR HYPERTROPHY ABNORMAL ECG RI6.01 No previous ECG available for comparison
--- NOTE | 2019-02-21 16:07 | PATHOLOGY ---
Note [facility] Accession Number: [id number] TESTS RESULT FLAG UNITS REF RANGE LAB Clinician Provided Cytology Information No. of containers..01 Other (Miscellaneous) Source: 01 L PLEURAL DIAGNOSIS: 02 L PLEURAL NEGATIVE FOR MALIGNANT CELLS. FOCALLY REACTIVE MESOTHELIAL CELLS AND FEW INFLAMMATORY CELLS PRESENT. THIS INTERPRETATION INCLUDES EVALUATION OF A CELL BLOCK. Signed out by: 02 Marlon Ayala MD, Pathologist NPI- [id number] Performed by: Azeb Tay, Art Sales Consultant ([facility]) Gross description: 01 23ML, HAZY, YELLOW /LCS FLAG LEGEND: L-Low Normal,H-High Normal,LL-Alert Low,HH-Alert High <-Panic Low,>-Panic High,A-Abnormal,AA-Critical Abnormal Performed at: 01 [facility] [address] [place] [address] Oscar Blanc MD, 02 [facility] [address] [place] [address] Marlon Ayala MD, Specimen Comment: A courtesy copy of this report has been sent to Specimen Comment: [phone], , . Specimen Comment: Report sent to DR DUNN,DR SHERMAN / DR NUNO Specimen Comment: A duplicate report has been generated due to demographic updates. Performed at: 01 [facility] [address], [place], [place] [id number] MD Oscar Blanc MD Phone: [phone]
== END 2019-02-18 13:35 | disposition home or self-care (01) | DRG 291 ==
LOC: ER 16:54 → 1 WEST ICU 20:09 → 2 NORTH 02-17 15:33
PROVIDERS: ADMIT Family Medicine; ATTEND Family Medicine
PROC: 0W9B3ZX Drainage of Left Pleural Cavity, Percutaneous Approach, Diagnostic (ICD-10-PCS; principal; 2019-02-17)
DX: I13.2 Hypertensive heart and chronic kidney disease with heart failure and with stage 5 chronic kidney disease, or end stage renal disease (principal); I50.43 Acute on chronic combined systolic (congestive) and diastolic (congestive) heart failure; J96.20 Acute and chronic respiratory failure, unspecified whether with hypoxia or hypercapnia; N18.6 End stage renal disease; J44.1 Chronic obstructive pulmonary disease with (acute) exacerbation; J98.11 Atelectasis; J90 Pleural effusion, not elsewhere classified; D63.1 Anemia in chronic kidney disease; E03.9 Hypothyroidism, unspecified; E11.22 Type 2 diabetes mellitus with diabetic chronic kidney disease; E11.65 Type 2 diabetes mellitus with hyperglycemia; E78.5 Hyperlipidemia, unspecified; F17.210 Nicotine dependence, cigarettes, uncomplicated; E21.3 Hyperparathyroidism, unspecified; F32.9 Major depressive disorder, single episode, unspecified; I25.10 Atherosclerotic heart disease of native coronary artery without angina pectoris; I25.5 Ischemic cardiomyopathy; K21.9 Gastro-esophageal reflux disease without esophagitis; Z79.4 Long term (current) use of insulin; Z82.49 Family history of ischemic heart disease and other diseases of the circulatory system; Z86.74 Personal history of sudden cardiac arrest; Z91.11 Patient's noncompliance with dietary regimen; Z95.5 Presence of coronary angioplasty implant and graft; Z99.2 Dependence on renal dialysis; Z99.81 Dependence on supplemental oxygen; Z83.3 Family history of diabetes mellitus
CPT/HCPCS: 32555; 36415; 71046; 76942; 80053; 80069; 82570; 82945; 82962; 83605; 83615; 83735; 83880; 83986; 84156; 84157; 84484; 85007; 85018; 85025; 85610; 87040; 87071; 87075; 87641; 88112; 88305; 89050; 93005; 93970; 94640; 94760; 96374; 96375; J0360; J1815; J1940; J1956; J2930; J3490; J7613; J7620; J7626; J8597; 99285-25

== ENCOUNTER 2019-03-06 16:38 | Inpatient (IN) | payer MEDICARE ==
[~2019-03-06] VITALS: Ht 175.3 cm; Wt 81.8 kg
--- NOTE | 2019-03-06 18:50 | NUR ---
The patient, SEBASTIAN ANGULO, 58 y/o, M admitted by KRYSTAL JASSO MD, was given written information regarding hospital policies, unit procedures and contact persons. oriented to room, personnel monitor . assessed pt went over his history, poor historian, obtained from old records as well. lower extremities +4 pitting edema. discussed poc. Valuables were checked and documented in emr lcrn.
[2019-03-06 19:10] VITALS: BP 130/85
[2019-03-06] MEDS ORDERED: DEXTROSE 50% 25 GM / 50ML DISP.SYRIN. IV PRN (20:15)
[2019-03-06] MEDS ORDERED: ACETAMINOPHEN 325 MG TABLET. PO PRN (20:30)
[2019-03-06] MEDS ORDERED: LABETALOL 20 MG/4 ML DISP.SYRIN. IVP PRN (20:30)
[2019-03-06] MEDS ORDERED: HYDROcodone/APAP 5/325MG 1 TAB TABLET PO PRN (20:30)
[2019-03-06] MEDS ORDERED: MORPHINE SULFATE 2 MG/ML VIAL. IV PRN (20:30)
[2019-03-06] MEDS ORDERED: ONDANSETRON PF 4 MG/2 ML VIAL. IV PRN (20:30)
[2019-03-06] MEDS ORDERED: INSULIN LISPRO 300 UNITS/3 ML INSULN.PEN. SQ SCH (21:00)
[2019-03-06] MEDS ORDERED: MAGNESIUM SULFATE 2GM 50 ML IV PRN (21:30)
[2019-03-06 23:00] VITALS: BP 195/89
[2019-03-06] MEDS ORDERED: traZODone 100 MG TABLET. PO PRN (23:00)
[2019-03-06] MEDS ORDERED: CALCIUM CARBONATE 500 MG TAB.CHEW PO PRN (23:00)
[2019-03-06] MEDS ORDERED: traMADol 50 MG TABLET PO PRN (23:00)
[2019-03-06] MEDS ORDERED: INSULIN GLARGINE 300 UNITS/3 ML INSULN.PEN. SQ SCH (23:30)
[2019-03-06] MEDS: INSULIN LISPRO 300 UNITS/3 ML INSULN.PEN. SQ SCH (23:54)
[2019-03-07] MEDS ORDERED: ALBUTEROL SULFATE 2.5 MG/3 ML NEBU. NEB PRN (01:30)
[2019-03-07 02:45] VITALS: BP 161/77
[2019-03-07 03:56] LABS: BASO # 0.1 x10^3/uL (0.0-0.2); BASO % 2 % (0-3); EOS # 0.3 x10^3/uL (0.0-0.7); EOS % 8 % (0-3); HEMATOCRIT 26.6 % (39.0-53.0); LYMPH # 1.3 x10^3/uL (1.0-4.8); LYMPH % 29 % (24-48); MEAN CORPUSCULAR HEMOGLOBIN 30 pg (25-35); MEAN CORPUSCULAR HGB CONC 34 g/dL (31-37); MEAN CORPUSCULAR VOLUME 89 fL (79-100); MONO # 0.4 x10^3/uL (0.0-1.1); MONO % 10 % (0-9); NEUT # 2.2 x10^3uL (1.8-7.7); NEUT % 51 % (31-73); PLATELET COUNT 126 x10^3/uL (140-400); RED CELL DISTRIBUTION WIDTH 16.7 % (11.5-14.5); WHITE BLOOD COUNT 4.3 x10^3/uL (4.0-11.0)
[2019-03-07 04:05] LABS: PROTHROMBIN TIME PATIENT 13.4 SEC (11.7-14.0)
[2019-03-07 04:15] LABS: ALBUMIN 2.9 g/dL (3.4-5.0); CALCIUM 8.7 mg/dL (8.5-10.1); CREATININE 5.4 mg/dL (0.7-1.3); MAGNESIUM 1.9 mg/dL (1.8-2.4); PHOSPHORUS 4.9 mg/dL (2.6-4.7); POTASSIUM 3.3 mmol/L (3.5-5.1)
[2019-03-07] MEDS: DEXTROSE 50% 25 GM / 50ML DISP.SYRIN. IV PRN ×4 (05:15→11:51)
--- NOTE | 2019-03-07 05:20 | NUR ---
pt was off monitor. went to check on pt, slumped in bed, diaphoric. checked bs was 30. pushed an amp of d50 rechecked came up to 136. last night bs was 372 received 15 of lantus and 5 sliding scale. am labs showed bs 67. pt is arousing and talking at baseline for his admit last night at 1850. lcrn
[2019-03-07] MEDS: LEVOTHYROXINE 150 MCG TABLET PO SCH (06:00)
[2019-03-07 07:00] VITALS: BP 167/80
[2019-03-07] MEDS: PANTOPRAZOLE 40 MG TABLET.DR. PO SCH (07:30)
[2019-03-07] MEDS: INSULIN LISPRO 300 UNITS/3 ML INSULN.PEN. SQ SCH ×7 (07:30→21:00)
--- NOTE | 2019-03-07 07:35 | NUR ---
RN NOTE fsbs was 29 gave 50ml of dextrose per protocol dr thompson notified orders received by blaise ziegler fsbs came up to 137 lab trip glucose prior to fsbs of 29
[2019-03-07] MEDS: BUDESONIDE 0.5 MG/2 ML NEBU. NEB SCH ×2 (07:36→20:00)
[2019-03-07] MEDS: IPRATRPIUM/ALBUTEROL 0.5/2.5MG 3 ML NEBU. NEB SCH ×4 (07:36→20:00)
[2019-03-07] MEDS ORDERED: INSULIN LISPRO 300 UNITS/3 ML INSULN.PEN. SQ SCH (08:00)
--- NOTE | 2019-03-07 08:14 | PDOC1 ---
History and Physical Date of Admission Date of Admission DATE: 03/07/19 TIME: 08:11 Identification/Chief Complaint Chief Complaint Confusion Source Source: Caregiver, Chart review, Patient History of Present Illness History of Present Illness Mr Ochoa is a 58 year old male w/ PMHx DM, ESRD, recent cardiac arrest who presents with being confused and short of breath by his , was hypoglycemic, went to [place] ED, was hyperglycemic in the 700s, given 10 units of lispro and transferred to [facility] for bilateral infiltrates and pleural effusions He was recently hospitalized for dyspnea and had a PEA arrest on dialysis on 08/21/18. He is hospitalized frequently for shortness of breath and glucose control problems as well as problems with dialysis. Also notes that he has had high blood sugars averaging in the 500s since discharge, but he is very brittle and frequently has blood glucose in the 30s as well. He normally takes 16u lantus QHS and 11u lispro or regular insulin TID with meals, but variably changes the doses at home per his . Feels no nausea, no further vomiting or diarrhea. He denies CP but does SOB with laying flat. He does not appear to be in significant respiratory distress at this time other than requiring nasal cannula oxygen at 5 L whereby his sats are 98%. He was just seen 3 weeks ago for large left pleural effusion, had this drained. He notes he has requested at dialysis that his dry weight be changed from 81kg to 85kg recently due to him feeling his voice gets hoarse when he is diuresed to 81kg. Glucose was 30 this morning requiring multiple amps of d50. He also notes RUE swelling Past Medical History Cardiovascular: CAD, HTN, Hyperlipidemia Pulmonary: Other GI: GERD Heme/Onc: Anemia NOS Psych: Depression Renal/: Chronic renal failure Endocrine: Diabetes, Hypothyroidism, Hyperparathyroidism Past Surgical History Past Surgical History: Other Family History Family History: Coronary Artery Disease, Diabetes, Hypertension Social History ALCOHOL: none Drugs: None Current Medications Current Medications Current Medications Insulin Human Lispro (HumaLOG) 0-9 UNITS QIDACHS SQ ; Start 03/06/19 at 21:00; Stop 03/06/19 at 23:18; Status DC Dextrose (Dextrose 50%-Water Syringe) 12.5 gm PRN Q15MIN PRN IV SEE COMMENTS; Start 03/06/19 at 20:15; Stop 03/06/19 at 23:18; Status DC Ondansetron HCl (Zofran) 4 mg PRN Q6HRS PRN IV NAUSEA/VOMITING; Start 03/06/19 at 20:30 Acetaminophen (Tylenol) 650 mg PRN Q6HRS PRN PO MILD PAIN 1-3; Start 03/06/19 at 20:30 Morphine Sulfate (Morphine Sulfate) 2 mg PRN Q2HR PRN IV SEVERE PAIN; Start 03/06/19 at 20:30 Acetaminophen/ Hydrocodone Bitart (Lortab 5/325) 1 tab PRN Q6HRS PRN PO MODERATE PAIN; Start 03/06/19 at 20:30 Labetalol HCl (Normodyne Iv Push) 10 mg PRN Q2HR PRN IVP HYPERTENSION; Start 03/06/19 at 20:30 Magnesium Sulfate 50 ml @ 25 mls/hr PRN DAILY PRN IV for Mag < 1.7 on am labs; Start 03/06/19 at 21:30 Amlodipine Besylate (Norvasc) 10 mg DAILY PO ; Start 03/07/19 at 09:00 Calcium Acetate (Phoslo) 1,334 mg TIDWMEALS PO ; Start 03/07/19 at 08:00 Calcium Carbonate/ Glycine (Tums) 500 mg PRN Q2HRS PRN PO INDIGESTION; Start 03/06/19 at 23:00 Ferrous Sulfate (Feosol) 325 mg DAILYWBKFT PO ; Start 03/07/19 at 08:00 Vitamin B Complex/ Vitamin C (Madai-Sean) 1 tab DAILY PO ; Start 03/07/19 at 09:00 Furosemide (Lasix) 80 mg QODAY PO ; Start 03/08/19 at 09:00 Hydralazine HCl (Apresoline) 10 mg TID PO ; Start 03/07/19 at 09:00 Insulin Glargine (Lantus) 15 units QHS SQ Last administered on 03/06/19at 23:53; Start 03/06/19 at 23:30; Stop 03/07/19 at 05:44; Status DC Insulin Human Lispro (HumaLOG) 0-9 UNITS QIDACHS SQ Last administered on 03/06/19at 23:54; Start 03/07/19 at 00:00 Dextrose (Dextrose 50%-Water Syringe) 12.5 gm PRN Q15MIN PRN IV SEE COMMENTS Last administered on 03/07/19at 07:22; Start 03/06/19 at 23:00 Levothyroxine Sodium (Synthroid) 300 mcg DAILY06 PO ; Start 03/07/19 at 06:00 Albuterol/ Ipratropium (Duoneb) 3 ml RTQID NEB Last administered on 03/07/19at 07:36; Start 03/07/19 at 08:00 Budesonide (Pulmicort) 0.5 mg RTBID NEB Last administered on 03/07/19at 07:36; Start 03/07/19 at 08:00 Lisinopril (Prinivil) 20 mg DAILY PO ; Start 03/07/19 at 09:00 Metoprolol Succinate (Toprol Xl) 12.5 mg DAILY PO ; Start 03/07/19 at 09:00 Fish Oil (Fish Oil) 1,000 mg DAILY PO ; Start 03/07/19 at 09:00 Pantoprazole Sodium (Protonix) 40 mg DAILYAC PO ; Start 03/07/19 at 07:30 Atorvastatin Calcium (Lipitor) 5 mg QHS PO ; Start 03/07/19 at 21:00 Tramadol HCl (Ultram) 50 mg PRN Q6HRS PRN PO MODERATE PAIN; Start 03/06/19 at 23:00 Trazodone HCl (Desyrel) 100 mg PRN QHS PRN PO INSOMNIA; Start 03/06/19 at 23:00 Insulin Human Lispro (HumaLOG) 6 units TIDWMEALS SQ ; Start 03/07/19 at 08:00; Stop 03/07/19 at 08:00; Status DC Albuterol Sulfate (Ventolin Neb Soln) 2.5 mg PRN Q4HRS PRN NEB SHORTNESS OF BREATH Last administered on 03/07/19at 01:45; Start 03/07/19 at 01:30 Insulin Glargine (Lantus) 12 units QHS SQ ; Start 03/07/19 at 21:00 Insulin Human Lispro (HumaLOG) 3 units TIDAC SQ ; Start 03/07/19 at 07:30 Active Scripts Active Amox Tr-K Clv 500-125 Mg Tab (Amoxicillin/Potassium Clav) 1 Each Tablet 1 Tab PO DAILY Hydralazine Hcl 10 Mg Tablet 10 Mg PO TID MDD 1 Amlodipine Besylate 10 Mg Tablet 10 Mg PO DAILY MDD 1 Lisinopril 40 Mg Tablet 20 Mg PO DAILY MDD 1 [Pantoprazole] 40 MG Tablet.dr 40 Mg PO DAILYAC 30 Days Trazodone Hcl 100 Mg Tablet 100 Mg PO PRN QHS PRN 30 Days Lantus Solostar (Insulin Glargine,Hum.rec.anlog) 100 Unit/1 Ml Insuln.pen 15 Units SQ QHS 30 Days Budesonide 0.5 Mg/2 Ml Ampul.neb 0.5 Mg NEB RTBID 30 Days Aspirin 81 Mg Tab.chew 81 Mg PO DAILYWBKFT 30 Days Carvedilol (Carvedilol) 3.125 Mg Tablet 3.125 Mg PO BIDWMEALS 30 Days Duoneb 0.5-3(2.5) Mg/3 Ml (Albuterol/Ipratropium) 3 Ml Ampul.neb 3 Ml NEB RTQID 30 Days Brilinta (Ticagrelor) 90 Mg Tablet 90 Mg PO BID 30 Days Vitamin D2 (Ergocalciferol (Vitamin D2)) 50,000 Unit Capsule 50,000 Unit PO WEEKLY Reported Furosemide 80 Mg Tablet 80 Mg PO BID [employer] 3 Fish Oil Softgel ([employer]-3 Fatty Acids/Fish Oil) 1 Each Capsule.dr 1 Each PO DAILY Toprol Xl (Metoprolol Succinate) 25 Mg Tab.er.24h 0.5 Tab PO DAILY Lasix (Furosemide) 80 Mg Tablet 80 Mg PO DAILY Calcium Acetate 667 Mg Tablet 667 Mg PO TIDWMEALS Tylenol (Acetaminophen) 325 Mg Tablet 650 Mg PO PRN Q6HRS Humalog (Insulin Lispro) 100 Unit/1 Ml Cartridge 6 Unit SQ TIDBFRMEAL Ferrous Sulfate 325 Mg Tablet 1 Tab PO DAILY Levothyroxine Sodium 175 Mcg Tablet 1 Tab PO DAILY Reglan (Metoclopramide Hcl) 10 Mg Tablet 5 Mg PO BIDAC Dialyvite Tablet (Folic Acid/Vitamin B Comp W-C) 1 Each Tablet 1 Each PO Allergies Allergies: Coded Allergies: No Known Drug Allergies (Unverified , 02/16/19) ROS General: YES: Fatigue, Malaise PSYCHOLOGICAL ROS: No: Anxiety, Behavioral Disorder, Concentration difficultie, Decreased libido, Depression, Disorientation, Hallucinations, Hostility, Irritablity, Memory difficulties, Mood Swings, Obsessive thoughts, Physical abuse, Sexual abuse, Sleep disturbances, Suicidal ideation, Other Eyes: No Blurry vision, No Decreased vision, No Double vision, No Dry eyes, No Excessive tearing, No Eye Pain, No Itchy Eyes, No Loss of vision, No Photophobia, No Scotomata, No Uses contacts, No Uses glasses, No Other HEENT: No: Heacaches, Visual Changes, Hearing change, Nasal congestion, Nasal discharge, Oral lesions, Sinus pain, Sore Throat, Epistaxis, Sneezing, Snoring, Tinnitus, Vertigo, Vocal changes, Other ALLERGY AND IMMUNOLOGY: No: Hives, Insect Bite Sensitivity, Itchy/Watery Eyes, Nasal Congestion, Post Nasal Drip, Seasonal Allergies, Other Hematological and Lymphatic: No: Bleeding Problems, Blood Clots, Blood Transfusions, Brusing, Night Sweats, Pallor, Swollen Lymph Nodes, Other ENDOCRINE: No: Breast Changes, Galactorrhea, Hair Pattern Changes, Hot Flashes, Malaise/lethargy, Mood Swings, Palpitations, Polydipsia/polyuria, Skin Changes, Temperature Intolerance, Unexpected Weight Changes, Other Breast: No New/Changing Breast Lumps, No Nipple changes, No Nipple discharge, No Other Respiratory: YES: Shortness of breath, SOB with excertion; No: Cough, Hemoptysis, Orthopnea, Pleuritic Pain, Sputum Changes, Stridor, Tachypnea, Wheezing, Other Cardiovascular: yes Orthopnea, yes Edema; No Chest Pain, No Palpitations, No Paroxysmal Noc. Dyspnea, No Lt Headedness, No Other Gastrointestinal: No Nausea, No Vomiting, No Abdominal Pain, No Diarrhea, No Constipation, No Melena, No Hematochezia, No Other Genitourinary: No Dysuria, No Frequency, No Incontinence, No Hematuria, No Retention, No Discharge, No Urgency, No Pain, No Flank Pain, No Other, No , No , No , No , No , No , No Musculoskeletal: No Gait Disturbance, No Joint Pain, No Joint Stiffness, No Joint Swelling, No Muscle Pain, No Muscular Weakness, No Pain In:, No Swelling In:, No Other Neurological: No Behavorial Changes, No Bowel/Bladder ControlChng, No Confusion, No Dizziness, No Gait Disturbance, No Headaches, No Impaired Coord/balance, No Memory Loss, No Numbness/Tingling, No Seizures, No Speech Problems, No Tremors, No Visual Changes, No Weakness, No Other Skin: No Dry Skin, No Eczema, No Hair Changes, No Lumps, No Mole Changes, No Mottling, No Nail Changes, No Pruritus, No Rash, No Skin Lesion Changes, No Other, No Acne Physical Exam General: Alert, Cooperative, No acute distress HEENT: Atraumatic, PERRLA, EOMI, Mucous membr. moist/pink Lungs: Other (Decreased bilateral breath sounds, crackles bilaterally) Heart: S1S2, RRR Abdomen: Normal bowel sounds, Soft, No tenderness, No hepatosplenomegaly, No masses Extremities: No clubbing, No cyanosis, Normal pulses, No tenderness/swelling, Other (3+ EDEMA) Neuro: Normal gait, Normal speech, Strength at 5/5 X4 ext, Normal tone, Sensation intact, Cranial nerves 3-12 NL, Reflexes 2+ Vitals Vitals Vital Signs Date Time Temp Pulse Resp B/P (MAP) Pulse Ox O2 Delivery O2 Flow Rate FiO2 03/07/19 07:36 98 Nasal Cannula 5.0 03/07/19 07:00 98.8 52 18 167/80 (109) 98.8 Labs Labs Laboratory Tests Test 03/06/19 20:44 03/07/19 03:30 03/07/19 05:08 03/07/19 05:17 Glucose (Fingerstick) 372 mg/dL (70-99) 30 mg/dL (70-99) 136 mg/dL (70-99) White Blood Count 4.3 x10^3/uL (4.0-11.0) Red Blood Count 3.00 x10^6/uL (4.30-5.70) Hemoglobin 9.0 g/dL (13.0-17.5) Hematocrit 26.6 % (39.0-53.0) Mean Corpuscular Volume 89 fL (79-100) Mean Corpuscular Hemoglobin 30 pg (25-35) Mean Corpuscular Hemoglobin Concent 34 g/dL (31-37) Red Cell Distribution Width 16.7 % (11.5-14.5) Platelet Count 126 x10^3/uL (140-400) Neutrophils (%) (Auto) 51 % (31-73) Lymphocytes (%) (Auto) 29 % (24-48) Monocytes (%) (Auto) 10 % (0-9) Eosinophils (%) (Auto) 8 % (0-3) Basophils (%) (Auto) 2 % (0-3) Neutrophils # (Auto) 2.2 x10^3uL (1.8-7.7) Lymphocytes # (Auto) 1.3 x10^3/uL (1.0-4.8) Monocytes # (Auto) 0.4 x10^3/uL (0.0-1.1) Eosinophils # (Auto) 0.3 x10^3/uL (0.0-0.7) Basophils # (Auto) 0.1 x10^3/uL (0.0-0.2) Prothrombin Time 13.4 SEC (11.7-14.0) Prothromb Time International Ratio 1.1 (0.8-1.1) Sodium Level 140 mmol/L (136-145) Potassium Level 3.3 mmol/L (3.5-5.1) Chloride Level 100 mmol/L (98-107) Carbon Dioxide Level 33 mmol/L (21-32) Anion Gap 7 (6-14) Blood Urea Nitrogen 31 mg/dL (8-26) Creatinine 5.4 mg/dL (0.7-1.3) Estimated GFR (Cockcroft-Gault) 11.0 Glucose Level 67 mg/dL (70-99) Calcium Level 8.7 mg/dL (8.5-10.1) Phosphorus Level 4.9 mg/dL (2.6-4.7) Magnesium Level 1.9 mg/dL (1.8-2.4) Albumin 2.9 g/dL (3.4-5.0) Test 03/07/19 07:16 03/07/19 07:26 Glucose (Fingerstick) 29 mg/dL (70-99) 137 mg/dL (70-99) Laboratory Tests Test 03/06/19 20:44 03/07/19 03:30 03/07/19 05:08 03/07/19 05:17 Glucose (Fingerstick) 372 mg/dL (70-99) 30 mg/dL (70-99) 136 mg/dL (70-99) White Blood Count 4.3 x10^3/uL (4.0-11.0) Red Blood Count 3.00 x10^6/uL (4.30-5.70) Hemoglobin 9.0 g/dL (13.0-17.5) Hematocrit 26.6 % (39.0-53.0) Mean Corpuscular Volume 89 fL (79-100) Mean Corpuscular Hemoglobin 30 pg (25-35) Mean Corpuscular Hemoglobin Concent 34 g/dL (31-37) Red Cell Distribution Width 16.7 % (11.5-14.5) Platelet Count 126 x10^3/uL (140-400) Neutrophils (%) (Auto) 51 % (31-73) Lymphocytes (%) (Auto) 29 % (24-48) Monocytes (%) (Auto) 10 % (0-9) Eosinophils (%) (Auto) 8 % (0-3) Basophils (%) (Auto) 2 % (0-3) Neutrophils # (Auto) 2.2 x10^3uL (1.8-7.7) Lymphocytes # (Auto) 1.3 x10^3/uL (1.0-4.8) Monocytes # (Auto) 0.4 x10^3/uL (0.0-1.1) Eosinophils # (Auto) 0.3 x10^3/uL (0.0-0.7) Basophils # (Auto) 0.1 x10^3/uL (0.0-0.2) Prothrombin Time 13.4 SEC (11.7-14.0) Prothromb Time International Ratio 1.1 (0.8-1.1) Sodium Level 140 mmol/L (136-145) Potassium Level 3.3 mmol/L (3.5-5.1) Chloride Level 100 mmol/L (98-107) Carbon Dioxide Level 33 mmol/L (21-32) Anion Gap 7 (6-14) Blood Urea Nitrogen 31 mg/dL (8-26) Creatinine 5.4 mg/dL (0.7-1.3) Estimated GFR (Cockcroft-Gault) 11.0 Glucose Level 67 mg/dL (70-99) Calcium Level 8.7 mg/dL (8.5-10.1) Phosphorus Level 4.9 mg/dL (2.6-4.7) Magnesium Level 1.9 mg/dL (1.8-2.4) Albumin 2.9 g/dL (3.4-5.0) Test 03/07/19 07:16 03/07/19 07:26 Glucose (Fingerstick) 29 mg/dL (70-99) 137 mg/dL (70-99) VTE Prophylaxis Ordered VTE Prophylaxis Devices: Yes VTE Pharmacological Prophylaxi: Yes Assessment/Plan Assessment/Plan A/P: Shortness of breath - likely 2/2 fluid overloaded, bilateral pleural effusions. Will check procalcitonin, read as bilateral infiltrates, he is high risk for HCAP Acute encephalopathy - metabolic from his hypoglycemia, most likely. Will give D50 Hypoglycemia - only received 16u Lantus, 10u lispro + 5 additional units lispro for glucose > 700 yesterday HTN urgency, he is s/p cardiac arrest in July with 2 SCOTTY. Seems to have fairly significant CHF symptoms, needs UF ESRD on HD - misses once per week fairly regularly. He is due otday will consult nephrology RUE swelling - concern for issues with his fistula, will check venous and arterial dopplers CAD with stent at RCA, LCx - taking meds, will cont Dm2 on insulin - very brittle historically, will reduce his home lantus to 8u. previously required D10 for hypoglycemia earlier this year HLD - cont statin Previous smoker - counseled Bilateral pleural effusion - recently had thoracentesis last month. This seems CHF related. will consult pulm, will cont to monitor, diurese. Was just drained last month, looks like chronic CHF FEN - ADA, renal diet PPX - heparin FULL CODE ICU for acute confusion for at least 2 midnights JIN ORBLES MD Mar 07, 2019 08:14
[2019-03-07] MEDS: METOPROLOL SUCC 24HR ER 25 MG TAB.ER.24H. PO SCH (09:00)
[2019-03-07] MEDS: LISINOPRIL 20 MG TABLET PO SCH (09:00)
--- NOTE | 2019-03-07 09:05 | NUR ---
RN NOTE order received to recheck fsbs 1 hr after hypoglycemia protocol was followed. when fsbs was rechecked it was 68 gave 50ml of dextrose per Dr. Oneil order and to recheck in 1 hour. fsbs rechecked and was 103 dr Oneil on the floor and notified no new orders received at this time
--- NOTE | 2019-03-07 10:32 | NUR ---
SS following up with discharge planning. SS reviewed pt chart. Pt is from home with spouse and is currently requiring oxygen. No discharge needs noted at this time. SS will continue to follow for discharge planning.
[2019-03-07] MEDS: CALCIUM ACETATE 667 MG CAPSULE PO SCH ×3 (10:57→17:00)
[2019-03-07] MEDS: FERROUS SULFATE 325 MG TABLET. PO SCH (10:58)
[2019-03-07] MEDS: FOLIC/VIT B COMP W-C (RENAL) TABLET. PO SCH (10:58)
--- NOTE | 2019-03-07 10:59 | PDOC2 ---
CONSULT Date of Consult Date of Consult DATE: 03/07/19 TIME: 10:41 Reason for Consult Reason for Consult: Dialysis patient Referring Physician Referring Physician: Kizzy Nevarez Identification/Chief Complaint Chief Complaint Hypoglycemic encephalopathy/coma Source Source: Chart review, Patient History of Present Illness Reason for Visit: Pedro is a pleasant 58-year-old gentleman with follow-up for his ESRD needs on a Tuesday basis. He dialyzes at [facility]. He is noted to have multiple hospitalizations here. He is known to have a heart history also. He is known to have brittle diabetes. He and his appear to have a poor understanding of the concept of estimated dry weight . They often have told me that he does not drink much fluid and still gains a lot of weight. He has often come to the dialysis unit 8-10 kg above his estimated dry weight. He does appear to have a significant element of noncompliance either with diabetic medications, dietary restriction, fluid restriction etc. I have reviewed Dr. Meng's H&P which reveals that he was brought to [facility] with hypoglycemia however patient and his tell me that they pre sented for shortness of breath. He has been treated for his hypoglycemia with intravenous dextrose and now appears to be eating a good breakfast. He is ready to go to dialysis once he finishes his breakfast. Dialysis has been set up for the patient. He does not appear to be in significant respiratory distress at this time other than requiring nasal cannula oxygen at 5 L whereby his sats are 98%. Past Medical History Cardiovascular: CAD, HTN, Hyperlipidemia Pulmonary: Other GI: GERD Heme/Onc: Anemia NOS Psych: Depression Renal/: Chronic renal failure Endocrine: Diabetes, Hypothyroidism, Hyperparathyroidism Past Surgical History Past Surgical History: Other Family History Family History: Coronary Artery Disease, Diabetes, Hypertension Social History ALCOHOL: none Drugs: None Lives: with Family Current Medications Current Medications Current Medications Insulin Human Lispro (HumaLOG) 0-9 UNITS QIDACHS SQ ; Start 03/06/19 at 21:00; Stop 03/06/19 at 23:18; Status DC Dextrose (Dextrose 50%-Water Syringe) 12.5 gm PRN Q15MIN PRN IV SEE COMMENTS; Start 03/06/19 at 20:15; Stop 03/06/19 at 23:18; Status DC Ondansetron HCl (Zofran) 4 mg PRN Q6HRS PRN IV NAUSEA/VOMITING; Start 03/06/19 at 20:30 Acetaminophen (Tylenol) 650 mg PRN Q6HRS PRN PO MILD PAIN 1-3; Start 03/06/19 at 20:30 Morphine Sulfate (Morphine Sulfate) 2 mg PRN Q2HR PRN IV SEVERE PAIN; Start 03/06/19 at 20:30 Acetaminophen/ Hydrocodone Bitart (Lortab 5/325) 1 tab PRN Q6HRS PRN PO MODERATE PAIN; Start 03/06/19 at 20:30 Labetalol HCl (Normodyne Iv Push) 10 mg PRN Q2HR PRN IVP HYPERTENSION; Start 03/06/19 at 20:30 Magnesium Sulfate 50 ml @ 25 mls/hr PRN DAILY PRN IV for Mag < 1.7 on am labs; Start 03/06/19 at 21:30 Amlodipine Besylate (Norvasc) 10 mg DAILY PO ; Start 03/07/19 at 09:00 Calcium Acetate (Phoslo) 1,334 mg TIDWMEALS PO ; Start 03/07/19 at 08:00 Calcium Carbonate/ Glycine (Tums) 500 mg PRN Q2HRS PRN PO INDIGESTION; Start 03/06/19 at 23:00 Ferrous Sulfate (Feosol) 325 mg DAILYWBKFT PO ; Start 03/07/19 at 08:00 Vitamin B Complex/ Vitamin C (Madai-Sean) 1 tab DAILY PO ; Start 03/07/19 at 09:00 Furosemide (Lasix) 80 mg QODAY PO ; Start 03/08/19 at 09:00 Hydralazine HCl (Apresoline) 10 mg TID PO ; Start 03/07/19 at 09:00 Insulin Glargine (Lantus) 15 units QHS SQ Last administered on 03/06/19at 23:53; Start 03/06/19 at 23:30; Stop 03/07/19 at 05:44; Status DC Insulin Human Lispro (HumaLOG) 0-9 UNITS QIDACHS SQ Last administered on 03/06/19at 23:54; Start 03/07/19 at 00:00 Dextrose (Dextrose 50%-Water Syringe) 12.5 gm PRN Q15MIN PRN IV SEE COMMENTS Last administered on 03/07/19at 08:12; Start 03/06/19 at 23:00 Levothyroxine Sodium (Synthroid) 300 mcg DAILY06 PO ; Start 03/07/19 at 06:00 Albuterol/ Ipratropium (Duoneb) 3 ml RTQID NEB Last administered on 03/07/19at 07:36; Start 03/07/19 at 08:00 Budesonide (Pulmicort) 0.5 mg RTBID NEB Last administered on 03/07/19at 07:36; Start 03/07/19 at 08:00 Lisinopril (Prinivil) 20 mg DAILY PO ; Start 03/07/19 at 09:00 Metoprolol Succinate (Toprol Xl) 12.5 mg DAILY PO ; Start 03/07/19 at 09:00 Fish Oil (Fish Oil) 1,000 mg DAILY PO ; Start 03/07/19 at 09:00 Pantoprazole Sodium (Protonix) 40 mg DAILYAC PO ; Start 03/07/19 at 07:30 Atorvastatin Calcium (Lipitor) 5 mg QHS PO ; Start 03/07/19 at 21:00 Tramadol HCl (Ultram) 50 mg PRN Q6HRS PRN PO MODERATE PAIN; Start 03/06/19 at 23:00 Trazodone HCl (Desyrel) 100 mg PRN QHS PRN PO INSOMNIA; Start 03/06/19 at 23:00 Insulin Human Lispro (HumaLOG) 6 units TIDWMEALS SQ ; Start 03/07/19 at 08:00; Stop 03/07/19 at 08:00; Status DC Albuterol Sulfate (Ventolin Neb Soln) 2.5 mg PRN Q4HRS PRN NEB SHORTNESS OF BREATH Last administered on 03/07/19at 01:45; Start 03/07/19 at 01:30 Insulin Glargine (Lantus) 12 units QHS SQ ; Start 03/07/19 at 21:00 Insulin Human Lispro (HumaLOG) 3 units TIDAC SQ ; Start 03/07/19 at 07:30 Active Scripts Active Amox Tr-K Clv 500-125 Mg Tab (Amoxicillin/Potassium Clav) 1 Each Tablet 1 Tab PO DAILY Hydralazine Hcl 10 Mg Tablet 10 Mg PO TID MDD 1 Amlodipine Besylate 10 Mg Tablet 10 Mg PO DAILY MDD 1 Lisinopril 40 Mg Tablet 20 Mg PO DAILY MDD 1 [Pantoprazole] 40 MG Tablet.dr 40 Mg PO DAILYAC 30 Days Trazodone Hcl 100 Mg Tablet 100 Mg PO PRN QHS PRN 30 Days Lantus Solostar (Insulin Glargine,Hum.rec.anlog) 100 Unit/1 Ml Insuln.pen 15 Units SQ QHS 30 Days Budesonide 0.5 Mg/2 Ml Ampul.neb 0.5 Mg NEB RTBID 30 Days Aspirin 81 Mg Tab.chew 81 Mg PO DAILYWBKFT 30 Days Carvedilol (Carvedilol) 3.125 Mg Tablet 3.125 Mg PO BIDWMEALS 30 Days Duoneb 0.5-3(2.5) Mg/3 Ml (Albuterol/Ipratropium) 3 Ml Ampul.neb 3 Ml NEB RTQID 30 Days Brilinta (Ticagrelor) 90 Mg Tablet 90 Mg PO BID 30 Days Vitamin D2 (Ergocalciferol (Vitamin D2)) 50,000 Unit Capsule 50,000 Unit PO WEEKLY Reported Furosemide 80 Mg Tablet 80 Mg PO BID [place] 3 Fish Oil Softgel ([place]-3 Fatty Acids/Fish Oil) 1 Each Capsule.dr 1 Each PO DAILY Toprol Xl (Metoprolol Succinate) 25 Mg Tab.er.24h 0.5 Tab PO DAILY Lasix (Furosemide) 80 Mg Tablet 80 Mg PO DAILY Calcium Acetate 667 Mg Tablet 667 Mg PO TIDWMEALS Tylenol (Acetaminophen) 325 Mg Tablet 650 Mg PO PRN Q6HRS Humalog (Insulin Lispro) 100 Unit/1 Ml Cartridge 6 Unit SQ TIDBFRMEAL Ferrous Sulfate 325 Mg Tablet 1 Tab PO DAILY Levothyroxine Sodium 175 Mcg Tablet 1 Tab PO DAILY Reglan (Metoclopramide Hcl) 10 Mg Tablet 5 Mg PO BIDAC Dialyvite Tablet (Folic Acid/Vitamin B Comp W-C) 1 Each Tablet 1 Each PO Allergies Allergies: Coded Allergies: No Known Drug Allergies (Unverified , 02/16/19) ROS Review of System 14 point review of systems as reviewed in history of present illness. Otherwise negative Physical Exam Physical Exam General Appearance: Awake Alert Oriented x 3 In no visible resp Distress, facial pallor and overall appears depressed Eyes: VIsion Unchanged Conjunctiva Normal EN: No EN Drainage Mucous Memb. moist (eating breakfast) Neck: no JVD + JVP Supple no palp Thyromegaly CVS: S1 S2 + Murmur No Gallop No Rub +1-2 Edema Resp: RLL Rales no Rhonchi no Acc. Muscle use. Dec AE in LLL GI: BAS +ve NO Bruit Non Tender Non Distended : no CVA tenderness; no Suprapubic Tenderness SKIN: no visible petechiael Rashes Breast Exam deferred Mu.Sk: Adequate ROM + Muscle Atrophy in hands Heme: Unable to palpate Obvious LAD no palp Splenomegaly NEURO: Good Strength and Tone Cranial Nerves II - XII grossly intact Psych: appears somewhat Depressed no Active hallucination Vital Signs Vital Signs Date Time Temp Pulse Resp B/P (MAP) Pulse Ox O2 Delivery O2 Flow Rate FiO2 03/07/19 07:36 98 Nasal Cannula 5.0 03/07/19 07:00 98.8 52 18 167/80 (109) 98.8 Assessment & Plan ESRD: Dialysis as below F 180 NR 3.5 Hrs 4 K 2.5 Ca 140 Na 30 HC03 Qb 350 + Qd 500+ Heparin 0 Units Uf to 1kg below OP dry weight as tolerated May give 25-50 gms of 25% Albumin if needed to maintain Hemodynamic stability Treatment plan reviewed and 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 Restart Epogen, Transfuse with next HD as needed. HTN: Current BP meds reviewed. See orders for changes. Hypokalemia: Attempt to correct with hemodialysis Bone & Mineral: Follow phosphorus levels and alter binder regimen as needed Possible fluid overload with subjective shortness of breath. Chest x-ray has been ordered Ultrafilter as best tolerated for new estimated dry weight. An echocardiogram has just been done. Lower extremity edema: Unclear if some of this is related to his previously poorly controlled hypothyroidism and myxedema stopped versus associated with fluid overload, cardiac etiologies. Discussed Plan of Care and prognosis etc. at length with family ( at bedside) Labs Labs Laboratory Tests Test 03/06/19 20:44 03/07/19 03:30 03/07/19 05:08 03/07/19 05:17 Glucose (Fingerstick) 372 mg/dL (70-99) 30 mg/dL (70-99) 136 mg/dL (70-99) White Blood Count 4.3 x10^3/uL (4.0-11.0) Red Blood Count 3.00 x10^6/uL (4.30-5.70) Hemoglobin 9.0 g/dL (13.0-17.5) Hematocrit 26.6 % (39.0-53.0) Mean Corpuscular Volume 89 fL (79-100) Mean Corpuscular Hemoglobin 30 pg (25-35) Mean Corpuscular Hemoglobin Concent 34 g/dL (31-37) Red Cell Distribution Width 16.7 % (11.5-14.5) Platelet Count 126 x10^3/uL (140-400) Neutrophils (%) (Auto) 51 % (31-73) Lymphocytes (%) (Auto) 29 % (24-48) Monocytes (%) (Auto) 10 % (0-9) Eosinophils (%) (Auto) 8 % (0-3) Basophils (%) (Auto) 2 % (0-3) Neutrophils # (Auto) 2.2 x10^3uL (1.8-7.7) Lymphocytes # (Auto) 1.3 x10^3/uL (1.0-4.8) Monocytes # (Auto) 0.4 x10^3/uL (0.0-1.1) Eosinophils # (Auto) 0.3 x10^3/uL (0.0-0.7) Basophils # (Auto) 0.1 x10^3/uL (0.0-0.2) Prothrombin Time 13.4 SEC (11.7-14.0) Prothromb Time International Ratio 1.1 (0.8-1.1) Sodium Level 140 mmol/L (136-145) Potassium Level 3.3 mmol/L (3.5-5.1) Chloride Level 100 mmol/L (98-107) Carbon Dioxide Level 33 mmol/L (21-32) Anion Gap 7 (6-14) Blood Urea Nitrogen 31 mg/dL (8-26) Creatinine 5.4 mg/dL (0.7-1.3) Estimated GFR (Cockcroft-Gault) 11.0 Glucose Level 67 mg/dL (70-99) Calcium Level 8.7 mg/dL (8.5-10.1) Phosphorus Level 4.9 mg/dL (2.6-4.7) Magnesium Level 1.9 mg/dL (1.8-2.4) Albumin 2.9 g/dL (3.4-5.0) Test 03/07/19 07:00 03/07/19 07:16 03/07/19 07:26 03/07/19 08:03 Glucose Level 44 mg/dL (70-99) Glucose (Fingerstick) 29 mg/dL (70-99) 137 mg/dL (70-99) 68 mg/dL (70-99) Test 03/07/19 09:05 Glucose (Fingerstick) 103 mg/dL (70-99) Laboratory Tests Test 03/06/19 20:44 03/07/19 03:30 03/07/19 05:08 03/07/19 05:17 Glucose (Fingerstick) 372 mg/dL (70-99) 30 mg/dL (70-99) 136 mg/dL (70-99) White Blood Count 4.3 x10^3/uL (4.0-11.0) Red Blood Count 3.00 x10^6/uL (4.30-5.70) Hemoglobin 9.0 g/dL (13.0-17.5) Hematocrit 26.6 % (39.0-53.0) Mean Corpuscular Volume 89 fL (79-100) Mean Corpuscular Hemoglobin 30 pg (25-35) Mean Corpuscular Hemoglobin Concent 34 g/dL (31-37) Red Cell Distribution Width 16.7 % (11.5-14.5) Platelet Count 126 x10^3/uL (140-400) Neutrophils (%) (Auto) 51 % (31-73) Lymphocytes (%) (Auto) 29 % (24-48) Monocytes (%) (Auto) 10 % (0-9) Eosinophils (%) (Auto) 8 % (0-3) Basophils (%) (Auto) 2 % (0-3) Neutrophils # (Auto) 2.2 x10^3uL (1.8-7.7) Lymphocytes # (Auto) 1.3 x10^3/uL (1.0-4.8) Monocytes # (Auto) 0.4 x10^3/uL (0.0-1.1) Eosinophils # (Auto) 0.3 x10^3/uL (0.0-0.7) Basophils # (Auto) 0.1 x10^3/uL (0.0-0.2) Prothrombin Time 13.4 SEC (11.7-14.0) Prothromb Time International Ratio 1.1 (0.8-1.1) Sodium Level 140 mmol/L (136-145) Potassium Level 3.3 mmol/L (3.5-5.1) Chloride Level 100 mmol/L (98-107) Carbon Dioxide Level 33 mmol/L (21-32) Anion Gap 7 (6-14) Blood Urea Nitrogen 31 mg/dL (8-26) Creatinine 5.4 mg/dL (0.7-1.3) Estimated GFR (Cockcroft-Gault) 11.0 Glucose Level 67 mg/dL (70-99) Calcium Level 8.7 mg/dL (8.5-10.1) Phosphorus Level 4.9 mg/dL (2.6-4.7) Magnesium Level 1.9 mg/dL (1.8-2.4) Albumin 2.9 g/dL (3.4-5.0) Test 03/07/19 07:00 03/07/19 07:16 03/07/19 07:26 03/07/19 08:03 Glucose Level 44 mg/dL (70-99) Glucose (Fingerstick) 29 mg/dL (70-99) 137 mg/dL (70-99) 68 mg/dL (70-99) Test 03/07/19 09:05 Glucose (Fingerstick) 103 mg/dL (70-99) Review All relevant outside records, renal labs, imaging studies, telemetry/EKG's were reviewed. CHARLES KOROMA MD Mar 07, 2019 10:59
[2019-03-07 11:00] VITALS: BP 174/84
[2019-03-07] MEDS: OMEGA-3 FATTY ACIDS/FISH OIL 1,000 MG CAPSULE. PO SCH (11:00)
[2019-03-07] MEDS: hydrALAZINE 10 MG TABLET PO SCH ×3 (11:01→23:19)
[2019-03-07] MEDS: amLODIPine BESYLATE 10 MG TABLET PO SCH (11:01)
--- NOTE | 2019-03-07 11:43 | RAD ---
Duplex ultrasound evaluation, right upper extremity deep veins. 03/07/2019 INDICATION: Right arm swelling. History of dialysis graft. Discussion: Ultrasound evaluation of the right upper extremity veins was performed including color Doppler imaging spectral analysis. The patient has a right upper extremity brachiocephalic fistula for dialysis. The fistula is grossly patent. Some elevation of velocities is seen within the tortuous aspect of the outflow vein just beyond the anastomosis. Significant aliasing is noted on color Doppler imaging. Grossly on grayscale imaging and color Doppler imaging no high-grade stenosis is identified. There is a tiny focus of appears to be adherent thrombus within the outflow cephalic vein which is nonflow-limiting measuring approximately 2 mm in diameter. This could be chronic. Stent within the outflow vein is seen near the shoulder, near the junction of the cephalic and subclavian veins. Visualized axillary and subclavian veins are patent. Within the left upper arm, there is a small subcutaneous hematoma, likely the site of prior access. IMPRESSION: 1. No evidence of acute deep venous thrombosis is identified. 2 mm focus of adherent, possibly chronic thrombus is seen within the outflow cephalic vein, nonflow limiting. 2. Nonspecific elevation velocities within the proximal outflow vein. Graft otherwise appears grossly patent. Electronically signed by: David Elliott MD (03/07/2019 11:39 AM) [id number]
--- NOTE | 2019-03-07 11:46 | RAD ---
Duplex ultrasound evaluation, right upper arteries. 03/07/2019 INDICATION: Right arm swelling. History of dialysis graft. Discussion: Ultrasound evaluation of the right upper extremity veins arteries was performed including color Doppler imaging with spectral analysis. Patient has a patent right upper extremity brachiocephalic fistula. Right axillary and subclavian arteries are patent. Proximal right brachial artery is patent. Distal right brachial artery is patent. Some elevation of velocities within the brachial artery just proximal to the anastomosis are seen. Significance is uncertain. Radial artery below the fistula is patent. Distal ulnar artery below the anastomosis is also patent. No evidence of hemodynamically significant stenosis is identified. No high-grade visual stenosis is identified. IMPRESSION: Patent major arteries of the right upper extremity are grossly patent. Mild elevations velocities within the brachial artery just above the AV anastomosis felt to be nonspecific. Generally a significant stenosis within the arterial inflow would not result in upper extremity edema. Electronically signed by: David Elliott MD (03/07/2019 11:43 AM) [id number]
[2019-03-07] MEDS ORDERED: GLUCAGON,HUMAN RECOMBINANT 1 MG/ML VIAL. IV ONE (12:00)
--- NOTE | 2019-03-07 12:33 | RAD ---
CHEST PA LATERAL History: Pleural effusion Comparison: February 17, 2019 Findings: 2 views of the chest are submitted. Large left pleural effusion is larger in interval. There is [id number] right pleural effusion slightly increased. There is somewhat increased right base airspace opacity, also increased opacity at the left lung base. No pneumothorax is identified. There is again stent in the right axillary region. Pericardial cardiac silhouette is somewhat poorly evaluated, negligible enlargement likely unchanged. Impression: 1. There are increased left greater than right pleural effusions, increased bibasilar airspace opacity which may be due to atelectasis/edema/infiltrates. Electronically signed by: Taye Bradshaw MD (03/07/2019 12:30 PM) [place] [id number]
--- NOTE | 2019-03-07 13:04 | NUR ---
RN NOTE fsbs for lunch was 37 dr thompson on the floor and gave an order to give 1mg ivp of glucagon in addition to the hypoglycemia protocol and to recheck patient in 1 hour. patient rechecked a 1242 patients fsbs was 174. patient resting in bed at bedside
[2019-03-07 15:00] VITALS: BP 194/84
[2019-03-07] MEDS ORDERED: cefTRIAXone IV Push 1 GM VIAL. IVP SCH (15:00)
[2019-03-07] MEDS: predniSONE 10 MG TABLET PO SCH (15:14)
[2019-03-07] MEDS ORDERED: hydrALAZINE 25 MG TABLET PO ONE (15:15)
--- NOTE | 2019-03-07 15:46 | RAD ---
CT CHEST WO CONTRAST Indication: Effusion. Exposure: One or more of the following individualized dose reduction techniques were utilized for this examination: 1. Automated exposure control 2. Adjustment of the mA and/or kV according to patient size 3. Use of iterative reconstruction technique. Technique: Standard imaging without intravenous contrast. Comparison with 11/13/2018. FINDINGS: Noncontrast technique limits evaluation of vascular and mediastinal structures. Large left pleural effusion. This measures simple fluid density. Small right pleural effusion. Heart size is mildly enlarged. No significant pericardial effusion. Coronary artery calcifications. The mediastinum appears to be slightly shifted toward the right. Diffuse stranding in the subcutaneous fat is again seen likely edema or inflammation. Mildly enlarged right axillary lymph nodes are again seen but have improved. Enlarged mediastinal lymph nodes are again identified. Pretracheal node, image 23, measures 12 mm short axis diameter, compared with 16 mm on similar prior slice by my measurement. Other mediastinal nodes appears similar. Linear opacities in the right lung particularly the lung base are identified compatible with infiltrate and/or atelectasis. There is also likely a component of mild pulmonary edema. Left lung consolidation or infiltrate particularly dependently. No evidence of pneumothorax. Degenerative changes of the spine. Sternal fracture again identified, there appears to be some healing. IMPRESSION: 1. Large left pleural effusion with extensive infiltrate and consolidation in the left lung. 2. Small right pleural effusion. Infiltrate and atelectasis in the right lung particularly inferiorly. 3. Mediastinal and right axillary lymph node enlargement, although there may be very slight improvement. Electronically signed by: Fausto Rea MD (03/07/2019 3:44 PM) [facility]
[2019-03-07] MEDS ORDERED: IV NORMAL SALINE 1000ML BAG 1,000 ML IV PRN ×2 (16:47)
[2019-03-07] MEDS ORDERED: diphenhydrAMINE 50 MG/ML VIAL IV PRN ×2 (17:00)
[2019-03-07] MEDS ORDERED: DIALYSIS PATIENT. MC PRN (17:00)
--- NOTE | 2019-03-07 17:52 | PDOC ---
PULMONARY PROGRESS NOTES Vitals Vital Signs Date Time Temp Pulse Resp B/P (MAP) Pulse Ox O2 Delivery O2 Flow Rate FiO2 03/07/19 15:34 96 Nasal Cannula 3.0 03/07/19 15:14 62 194/84 03/07/19 15:00 98.7 20 98.7 General: Alert, No acute distress HEENT: Other Lungs: Clear Cardiovascular: S1, S2 Abdomen: Soft, Non-tender Extremities: Other Labs Laboratory Tests Test 03/06/19 20:44 03/07/19 03:30 03/07/19 05:08 03/07/19 05:17 Glucose (Fingerstick) 372 mg/dL (70-99) 30 mg/dL (70-99) 136 mg/dL (70-99) White Blood Count 4.3 x10^3/uL (4.0-11.0) Red Blood Count 3.00 x10^6/uL (4.30-5.70) Hemoglobin 9.0 g/dL (13.0-17.5) Hematocrit 26.6 % (39.0-53.0) Mean Corpuscular Volume 89 fL (79-100) Mean Corpuscular Hemoglobin 30 pg (25-35) Mean Corpuscular Hemoglobin Concent 34 g/dL (31-37) Red Cell Distribution Width 16.7 % (11.5-14.5) Platelet Count 126 x10^3/uL (140-400) Neutrophils (%) (Auto) 51 % (31-73) Lymphocytes (%) (Auto) 29 % (24-48) Monocytes (%) (Auto) 10 % (0-9) Eosinophils (%) (Auto) 8 % (0-3) Basophils (%) (Auto) 2 % (0-3) Neutrophils # (Auto) 2.2 x10^3uL (1.8-7.7) Lymphocytes # (Auto) 1.3 x10^3/uL (1.0-4.8) Monocytes # (Auto) 0.4 x10^3/uL (0.0-1.1) Eosinophils # (Auto) 0.3 x10^3/uL (0.0-0.7) Basophils # (Auto) 0.1 x10^3/uL (0.0-0.2) Prothrombin Time 13.4 SEC (11.7-14.0) Prothromb Time International Ratio 1.1 (0.8-1.1) Sodium Level 140 mmol/L (136-145) Potassium Level 3.3 mmol/L (3.5-5.1) Chloride Level 100 mmol/L (98-107) Carbon Dioxide Level 33 mmol/L (21-32) Anion Gap 7 (6-14) Blood Urea Nitrogen 31 mg/dL (8-26) Creatinine 5.4 mg/dL (0.7-1.3) Estimated GFR (Cockcroft-Gault) 11.0 Glucose Level 67 mg/dL (70-99) Calcium Level 8.7 mg/dL (8.5-10.1) Phosphorus Level 4.9 mg/dL (2.6-4.7) Magnesium Level 1.9 mg/dL (1.8-2.4) Albumin 2.9 g/dL (3.4-5.0) Test 03/07/19 07:00 03/07/19 07:16 03/07/19 07:26 03/07/19 08:03 Glucose Level 44 mg/dL (70-99) Glucose (Fingerstick) 29 mg/dL (70-99) 137 mg/dL (70-99) 68 mg/dL (70-99) Test 03/07/19 09:05 03/07/19 11:45 03/07/19 12:42 Glucose (Fingerstick) 103 mg/dL (70-99) 37 mg/dL (70-99) 174 mg/dL (70-99) Laboratory Tests Test 03/06/19 20:44 03/07/19 03:30 03/07/19 05:08 03/07/19 05:17 Glucose (Fingerstick) 372 mg/dL (70-99) 30 mg/dL (70-99) 136 mg/dL (70-99) White Blood Count 4.3 x10^3/uL (4.0-11.0) Red Blood Count 3.00 x10^6/uL (4.30-5.70) Hemoglobin 9.0 g/dL (13.0-17.5) Hematocrit 26.6 % (39.0-53.0) Mean Corpuscular Volume 89 fL (79-100) Mean Corpuscular Hemoglobin 30 pg (25-35) Mean Corpuscular Hemoglobin Concent 34 g/dL (31-37) Red Cell Distribution Width 16.7 % (11.5-14.5) Platelet Count 126 x10^3/uL (140-400) Neutrophils (%) (Auto) 51 % (31-73) Lymphocytes (%) (Auto) 29 % (24-48) Monocytes (%) (Auto) 10 % (0-9) Eosinophils (%) (Auto) 8 % (0-3) Basophils (%) (Auto) 2 % (0-3) Neutrophils # (Auto) 2.2 x10^3uL (1.8-7.7) Lymphocytes # (Auto) 1.3 x10^3/uL (1.0-4.8) Monocytes # (Auto) 0.4 x10^3/uL (0.0-1.1) Eosinophils # (Auto) 0.3 x10^3/uL (0.0-0.7) Basophils # (Auto) 0.1 x10^3/uL (0.0-0.2) Prothrombin Time 13.4 SEC (11.7-14.0) Prothromb Time International Ratio 1.1 (0.8-1.1) Sodium Level 140 mmol/L (136-145) Potassium Level 3.3 mmol/L (3.5-5.1) Chloride Level 100 mmol/L (98-107) Carbon Dioxide Level 33 mmol/L (21-32) Anion Gap 7 (6-14) Blood Urea Nitrogen 31 mg/dL (8-26) Creatinine 5.4 mg/dL (0.7-1.3) Estimated GFR (Cockcroft-Gault) 11.0 Glucose Level 67 mg/dL (70-99) Calcium Level 8.7 mg/dL (8.5-10.1) Phosphorus Level 4.9 mg/dL (2.6-4.7) Magnesium Level 1.9 mg/dL (1.8-2.4) Albumin 2.9 g/dL (3.4-5.0) Test 03/07/19 07:00 03/07/19 07:16 03/07/19 07:26 03/07/19 08:03 Glucose Level 44 mg/dL (70-99) Glucose (Fingerstick) 29 mg/dL (70-99) 137 mg/dL (70-99) 68 mg/dL (70-99) Test 03/07/19 09:05 03/07/19 11:45 03/07/19 12:42 Glucose (Fingerstick) 103 mg/dL (70-99) 37 mg/dL (70-99) 174 mg/dL (70-99) Medications Active Scripts Medications Dose Route/Sig Max Daily Dose Days Date Category Furosemide 80 Mg Tablet 80 Mg PO BID 02/18/19 Reported Amox Tr-K Clv 500-125 Mg Tab (Amoxicillin/Potassium Clav) 1 Each Tablet 1 Tab PO DAILY 11/15/18 Rx [place] 3 Fish Oil Softgel ([place]-3 Fatty Acids/Fish Oil) 1 Each Capsule.dr 1 Each PO DAILY 11/07/18 Reported Toprol Xl (Metoprolol Succinate) 25 Mg Tab.er.24h 0.5 Tab PO DAILY 11/07/18 Reported Lasix (Furosemide) 80 Mg Tablet 80 Mg PO DAILY 11/07/18 Reported Calcium Acetate 667 Mg Tablet 667 Mg PO TIDWMEALS 11/07/18 Reported Hydralazine Hcl 10 Mg Tablet 10 Mg PO TID MDD 1 10/04/18 Rx Amlodipine Besylate 10 Mg Tablet 10 Mg PO DAILY MDD 1 10/04/18 Rx Lisinopril 40 Mg Tablet 20 Mg PO DAILY MDD 1 10/04/18 Rx Tylenol (Acetaminophen) 325 Mg Tablet 650 Mg PO PRN Q6HRS 10/02/18 Reported Humalog (Insulin Lispro) 100 Unit/1 Ml Cartridge 6 Unit SQ TIDBFRMEAL 10/02/18 Reported Ferrous Sulfate 325 Mg Tablet 1 Tab PO DAILY 09/15/18 Reported Levothyroxine Sodium 175 Mcg Tablet 1 Tab PO DAILY 09/15/18 Reported Reglan (Metoclopramide Hcl) 10 Mg Tablet 5 Mg PO BIDAC 09/15/18 Reported [Pantoprazole] 40 MG Tablet.dr 40 Mg PO DAILYAC 30 09/09/18 Rx Trazodone Hcl 100 Mg Tablet 100 Mg PO PRN QHS PRN 30 09/09/18 Rx Lantus Solostar (Insulin Glargine,Hum.rec.anlog) 100 Unit/1 Ml Insuln.pen 15 Units SQ QHS 30 09/09/18 Rx Budesonide 0.5 Mg/2 Ml Ampul.neb 0.5 Mg NEB RTBID 30 08/29/18 Rx Aspirin 81 Mg Tab.chew 81 Mg PO DAILYWBKFT 08/29/18 Rx Carvedilol (Carvedilol) 3.125 Mg Tablet 3.125 Mg PO BIDWMEALS 08/29/18 Rx Duoneb 0.5-3(2.5) Mg/3 Ml (Albuterol/Ipratropium) 3 Ml Ampul.neb 3 Ml NEB RTQID 08/29/18 Rx Brilinta (Ticagrelor) 90 Mg Tablet 90 Mg PO BID 08/29/18 Rx Vitamin D2 (Ergocalciferol (Vitamin D2)) 50,000 Unit Capsule 50,000 Unit PO WEEKLY 04/02/18 Rx Dialyvite Tablet (Folic Acid/Vitamin B Comp W-C) 1 Each Tablet 1 Each PO 03/28/18 Reported Impression . FULL NOTE DICTATED REPEAT CT CHEST CONTINUE THE SAME FOR NOW MAY NEED A REPEAT THORACENTESIS YOSI ZHANG MD Mar 07, 2019 17:51
[2019-03-07] MEDS: cefTRIAXone IV Push 1 GM VIAL. IVP SCH (21:00)
[2019-03-07] MEDS ORDERED: INSULIN GLARGINE 300 UNITS/3 ML INSULN.PEN. SQ SCH (21:00)
[2019-03-07 23:00] VITALS: BP 168/73
[2019-03-07] MEDS: LACTOBACILLUS RHAMNOSUS GG 1 CAPSULE. PO SCH (23:16)
[2019-03-07] MEDS: ATORVASTATIN CALCIUM 10 MG TABLET. PO SCH (23:16)
[2019-03-08 03:00] VITALS: BP 161/75
--- NOTE | 2019-03-08 03:35 | CONS ---
DATE OF CONSULTATION: 03/07/2019 ATTENDING PHYSICIAN: Dr. Oneil. REASON FOR CONSULTATION: The patient seen in pulmonary consultation at the request of Dr. Oneil for abnormal chest x-ray. HISTORY OF PRESENT ILLNESS: The patient is a 58-year-old male that is well known to our service from previous hospitalization. He has had recurrent thoracentesis. The last time he had thoracentesis and paracentesis was on 02/17/2019. At that time, there was 2000 mL of yellow serosanguineous fluid aspirated from the left pleural space. It has been analyzed in the past and felt that this is transudative in nature. There have been no malignant cells identified. The patient presented with increasing difficulty with not feeling good. He was short of breath lying down. No chest pain, questionable fever. Poor appetite. His O2 saturation was low and he is currently on 5 liters of oxygen. He had a chest x-ray, which revealed recurrent pleural fluid. I was asked to see him in consultation. The patient continues to smoke. No fever documented. No nausea, vomiting, diarrhea. PAST MEDICAL HISTORY: Quite complex. He has a history of end-stage renal disease, diabetes. Last year, he had PEA arrest on dialysis on 08/13/2018. He has had periods of hypoglycemia, recurrent pleural effusion and he underwent thoracentesis, transudative in nature. Cytology was negative for malignant cells. PAST SURGICAL HISTORY: As above. FAMILY HISTORY: No coronary artery disease, diabetes, hypertension. No family history of lung cancer. SOCIAL HISTORY: He continues to smoke. ALLERGIES: No known drug allergies. CURRENT MEDICATIONS: List was reviewed. REVIEW OF SYSTEMS: CONSTITUTIONAL: No documented fever or chills. EYES: No change in visual acuity. HEENT: No nasal congestion or sore throat. PULMONARY: As indicated above. CARDIOVASCULAR: No chest pain or pressure. GASTROINTESTINAL: No nausea, vomiting, diarrhea. GENITOURINARY: No dysuria or frequency. MUSCULOSKELETAL: Some weakness. No localized muscle aches or joint pains. SKIN: No new skin rashes. NEUROLOGIC: No headaches, diplopia or blurred vision. PHYSICAL EXAMINATION: GENERAL: The patient was sleepy, but arousable. VITAL SIGNS: On 3-5 liters of oxygen supplementation. HEENT: Eyes, the sclerae were nonicteric. NECK: Jugular venous distention was not elevated. No lymphadenopathy. CHEST: Full expansion. LUNGS: Poor airway flow with diminished breath sounds, left greater than right. CARDIOVASCULAR: Regular rate and rhythm with S1, S2, no S3. ABDOMEN: Soft, slightly distended. EXTREMITIES: 1+ edema. NEUROLOGIC: The patient was awake, alert, following commands. A detailed neuro exam was not performed. LABORATORY DATA: Reviewed. White count was 4.3, hemoglobin 9, hematocrit 26. INR was 1.1. Electrolytes were noted. Sugar levels have been up and down, yesterday it was as low as 30, BUN was elevated, creatinine was elevated. Chest x-ray as indicated above. IMPRESSION: 1. Recurrent pleural effusion, status post previous thoracentesis, transudative effusion. Cytology was negative. All cultures were negative. 2. Periods of hypoglycemia. 3. Encephalopathy, metabolic in nature. 4. Progressive dyspnea with acute respiratory failure secondary to acute on chronic diastolic heart failure. 5. Hypertension. 6. End-stage renal disease. 7. Right upper extremity swelling. 8. Coronary artery disease with previous stent placement in the RCA and circ. 9. Type 2 diabetes. 10. Hyperlipidemia. 11. Tobacco dependence. 12. Chronic obstructive pulmonary disease. PLAN: 1. We will continue current support. 2. CT chest. 3. Negative fluid balance doing hemodialysis. 4. The patient instructed on the importance of discontinuing tobacco use. 5. We will defer diabetes management to PCP. 6. I will make further recommendation depending on CT scan finding. He may require repeat thoracentesis. Dr. Oneil, I do appreciate the privilege in sharing the patient's care. YOSI ZHANG MD DR: EZIO/radha JOB#: [id number] / [id number]
[2019-03-08] MEDS: LEVOTHYROXINE 150 MCG TABLET PO SCH (06:00)
[2019-03-08 06:01] LABS: CALCIUM 8.6 mg/dL (8.5-10.1); CREATININE 3.9 mg/dL (0.7-1.3); GFR 16.1; MAGNESIUM 1.9 mg/dL (1.8-2.4); PHOSPHORUS 5.4 mg/dL (2.6-4.7); POTASSIUM 5.5 mmol/L (3.5-5.1)
[2019-03-08 07:00] VITALS: BP 179/69
[2019-03-08] MEDS: BUDESONIDE 0.5 MG/2 ML NEBU. NEB SCH ×2 (07:10→20:16)
[2019-03-08] MEDS: IPRATRPIUM/ALBUTEROL 0.5/2.5MG 3 ML NEBU. NEB SCH ×4 (07:10→20:16)
[2019-03-08] MEDS ORDERED: INSULIN LISPRO 300 UNITS/3 ML INSULN.PEN. SQ ONE ×2 (07:30→09:00)
[2019-03-08] MEDS: INSULIN LISPRO 300 UNITS/3 ML INSULN.PEN. SQ SCH ×7 (07:30→21:03)
[2019-03-08] MEDS: predniSONE 10 MG TABLET PO SCH (07:34)
[2019-03-08] MEDS: FOLIC/VIT B COMP W-C (RENAL) TABLET. PO SCH (07:34)
[2019-03-08] MEDS: amLODIPine BESYLATE 10 MG TABLET PO SCH (07:34)
[2019-03-08] MEDS: OMEGA-3 FATTY ACIDS/FISH OIL 1,000 MG CAPSULE. PO SCH (07:34)
[2019-03-08] MEDS: LACTOBACILLUS RHAMNOSUS GG 1 CAPSULE. PO SCH ×2 (07:34→20:52)
[2019-03-08] MEDS: PANTOPRAZOLE 40 MG TABLET.DR. PO SCH (07:34)
[2019-03-08] MEDS: FUROSEMIDE 80 MG TABLET. PO SCH (07:35)
[2019-03-08] MEDS: METOPROLOL SUCC 24HR ER 25 MG TAB.ER.24H. PO SCH (07:35)
[2019-03-08] MEDS: FERROUS SULFATE 325 MG TABLET. PO SCH (07:35)
[2019-03-08] MEDS: CALCIUM ACETATE 667 MG CAPSULE PO SCH ×3 (07:35→17:23)
[2019-03-08] MEDS: LISINOPRIL 20 MG TABLET PO SCH (07:36)
[2019-03-08] MEDS: hydrALAZINE 10 MG TABLET PO SCH ×3 (07:36→20:53)
--- NOTE | 2019-03-08 08:14 | PDOC ---
PROGRESS NOTES Chief Complaint Chief Complaint A/P: Shortness of breath - likely 2/2 fluid overloaded, bilateral pleural effusions. Will check procalcitonin, read as bilateral infiltrates, he is high risk for HCA P Acute encephalopathy - metabolic from his hypoglycemia, most likely. Will give D50 Hypoglycemia - only received 16u Lantus, 10u lispro + 5 additional units lispro for glucose > 700 yesterday HTN urgency, he is s/p cardiac arrest in July with 2 SCOTTY. Seems to have fairly significant CHF symptoms, needs UF ESRD on HD - misses once per week fairly regularly. He is due otday will consult nephrology RUE swelling - concern for issues with his fistula, will check venous and arterial dopplers CAD with stent at RCA, LCx - taking meds, will cont Dm2 on insulin - very brittle historically, will reduce his home lantus to 8u. previously required D10 for hypoglycemia earlier this year HLD - cont statin Previous smoker - counseled Bilateral pleural effusion - recently had thoracentesis last month. This seems CHF related. will consult pulm, will cont to monitor, diurese. Was just drained last month, looks like chronic CHF FEN - ADA, renal diet PPX - heparin FULL CODE CVC for CHF exacerbation History of Present Illness History of Present Illness Mr Ochoa is a 58 year old male w/ PMHx DM, ESRD, recent cardiac arrest who presents with being confused and short of breath by his , was hypoglycemic, went to [place] ED, was hyperglycemic in the 700s, given 10 units of lispro and transferred to [facility] for bilateral infiltrates and pleural effusions. He was recently hospitalized for dyspnea and had a PEA arrest on dialysis on 08/21/18. He is hospitalized frequently for shortness of breath and glucose control problems as well as problems with dialysis. Also notes that he has had high blood sugars averaging in the 500s since discharge, but he is very brittle and frequently has blood glucose in the 30s as well. He normally takes 16u lantus QHS and 11u lispro or regular insulin TID with meals, but variably changes the doses at home per his . Feels no nausea, no further vomiting or diarrhea. He denies CP but does SOB with laying flat. He does not appear to be in significant respiratory distress at this time other than requiring nasal cannula oxygen at 5 L whereby his sats are 98%. He was just seen 3 weeks ago for large left pleural effusion, had this drained, noted transudative. He notes he has requested at dialysis that his dry weight be changed from 81kg to 85kg recently due to him feeling his voice gets hoarse when he is diuresed to 81kg. Glucose was 30 upon transfer to [place] on 03/07/19 in the morning requiring multiple amps of d50. He also noted RUE swelling, US showed patent graft, no clots or significant stenoses. Overnight his lantus was apparently held. Glucose very high this morning. He has a much better appetite. Is refusing daily dialysis. Vitals Vitals Vital Signs Date Time Temp Pulse Resp B/P (MAP) Pulse Ox O2 Delivery O2 Flow Rate FiO2 03/08/19 07:36 95 161/75 03/08/19 07:11 91 Nasal Cannula 3.0 03/08/19 03:00 98.8 22 98.8 Physical Exam General: Alert, Cooperative, No acute distress Lungs: Clear Abdomen: Normal bowel sounds, Soft, No tenderness, No hepatosplenomegaly, No masses Extremities: No clubbing, No cyanosis, Normal pulses, No tenderness/swelling, Other (3+ EDEMA) Labs LABS Laboratory Tests Test 03/07/19 09:05 03/07/19 11:45 03/07/19 12:42 03/07/19 21:44 Glucose (Fingerstick) 103 mg/dL (70-99) 37 mg/dL (70-99) 174 mg/dL (70-99) 185 mg/dL (70-99) Test 03/08/19 05:35 03/08/19 07:45 Sodium Level 133 mmol/L (136-145) Potassium Level 5.5 mmol/L (3.5-5.1) Chloride Level 94 mmol/L (98-107) Carbon Dioxide Level 27 mmol/L (21-32) Anion Gap 12 (6-14) Blood Urea Nitrogen 25 mg/dL (8-26) Creatinine 3.9 mg/dL (0.7-1.3) Estimated GFR (Cockcroft-Gault) 16.1 Glucose Level 536 mg/dL (70-99) Calcium Level 8.6 mg/dL (8.5-10.1) Phosphorus Level 5.4 mg/dL (2.6-4.7) Magnesium Level 1.9 mg/dL (1.8-2.4) Albumin 3.0 g/dL (3.4-5.0) Glucose (Fingerstick) 546 mg/dL (70-99) Comment Review of Relevant I have reviewed the following items yesenia (where applicable) has been applied. Labs Laboratory Tests Test 03/06/19 20:44 03/07/19 03:30 03/07/19 05:08 03/07/19 05:17 Glucose (Fingerstick) 372 mg/dL (70-99) 30 mg/dL (70-99) 136 mg/dL (70-99) White Blood Count 4.3 x10^3/uL (4.0-11.0) Red Blood Count 3.00 x10^6/uL (4.30-5.70) Hemoglobin 9.0 g/dL (13.0-17.5) Hematocrit 26.6 % (39.0-53.0) Mean Corpuscular Volume 89 fL (79-100) Mean Corpuscular Hemoglobin 30 pg (25-35) Mean Corpuscular Hemoglobin Concent 34 g/dL (31-37) Red Cell Distribution Width 16.7 % (11.5-14.5) Platelet Count 126 x10^3/uL (140-400) Neutrophils (%) (Auto) 51 % (31-73) Lymphocytes (%) (Auto) 29 % (24-48) Monocytes (%) (Auto) 10 % (0-9) Eosinophils (%) (Auto) 8 % (0-3) Basophils (%) (Auto) 2 % (0-3) Neutrophils # (Auto) 2.2 x10^3uL (1.8-7.7) Lymphocytes # (Auto) 1.3 x10^3/uL (1.0-4.8) Monocytes # (Auto) 0.4 x10^3/uL (0.0-1.1) Eosinophils # (Auto) 0.3 x10^3/uL (0.0-0.7) Basophils # (Auto) 0.1 x10^3/uL (0.0-0.2) Prothrombin Time 13.4 SEC (11.7-14.0) Prothromb Time International Ratio 1.1 (0.8-1.1) Sodium Level 140 mmol/L (136-145) Potassium Level 3.3 mmol/L (3.5-5.1) Chloride Level 100 mmol/L (98-107) Carbon Dioxide Level 33 mmol/L (21-32) Anion Gap 7 (6-14) Blood Urea Nitrogen 31 mg/dL (8-26) Creatinine 5.4 mg/dL (0.7-1.3) Estimated GFR (Cockcroft-Gault) 11.0 Glucose Level 67 mg/dL (70-99) Calcium Level 8.7 mg/dL (8.5-10.1) Phosphorus Level 4.9 mg/dL (2.6-4.7) Magnesium Level 1.9 mg/dL (1.8-2.4) Albumin 2.9 g/dL (3.4-5.0) Procalcitonin 0.65 ng/mL (0.00-0.10) Test 03/07/19 07:00 03/07/19 07:16 03/07/19 07:26 03/07/19 08:03 Glucose Level 44 mg/dL (70-99) Glucose (Fingerstick) 29 mg/dL (70-99) 137 mg/dL (70-99) 68 mg/dL (70-99) Test 03/07/19 09:05 03/07/19 11:45 03/07/19 12:42 03/07/19 21:44 Glucose (Fingerstick) 103 mg/dL (70-99) 37 mg/dL (70-99) 174 mg/dL (70-99) 185 mg/dL (70-99) Test 03/08/19 05:35 03/08/19 07:45 Sodium Level 133 mmol/L (136-145) Potassium Level 5.5 mmol/L (3.5-5.1) Chloride Level 94 mmol/L (98-107) Carbon Dioxide Level 27 mmol/L (21-32) Anion Gap 12 (6-14) Blood Urea Nitrogen 25 mg/dL (8-26) Creatinine 3.9 mg/dL (0.7-1.3) Estimated GFR (Cockcroft-Gault) 16.1 Glucose Level 536 mg/dL (70-99) Calcium Level 8.6 mg/dL (8.5-10.1) Phosphorus Level 5.4 mg/dL (2.6-4.7) Magnesium Level 1.9 mg/dL (1.8-2.4) Albumin 3.0 g/dL (3.4-5.0) Glucose (Fingerstick) 546 mg/dL (70-99) Laboratory Tests Test 03/07/19 09:05 03/07/19 11:45 03/07/19 12:42 03/07/19 21:44 Glucose (Fingerstick) 103 mg/dL (70-99) 37 mg/dL (70-99) 174 mg/dL (70-99) 185 mg/dL (70-99) Test 03/08/19 05:35 03/08/19 07:45 Sodium Level 133 mmol/L (136-145) Potassium Level 5.5 mmol/L (3.5-5.1) Chloride Level 94 mmol/L (98-107) Carbon Dioxide Level 27 mmol/L (21-32) Anion Gap 12 (6-14) Blood Urea Nitrogen 25 mg/dL (8-26) Creatinine 3.9 mg/dL (0.7-1.3) Estimated GFR (Cockcroft-Gault) 16.1 Glucose Level 536 mg/dL (70-99) Calcium Level 8.6 mg/dL (8.5-10.1) Phosphorus Level 5.4 mg/dL (2.6-4.7) Magnesium Level 1.9 mg/dL (1.8-2.4) Albumin 3.0 g/dL (3.4-5.0) Glucose (Fingerstick) 546 mg/dL (70-99) Medications Current Medications Insulin Human Lispro (HumaLOG) 0-9 UNITS QIDACHS SQ ; Start 03/06/19 at 21:00; Stop 03/06/19 at 23:18; Status DC Dextrose (Dextrose 50%-Water Syringe) 12.5 gm PRN Q15MIN PRN IV SEE COMMENTS; Start 03/06/19 at 20:15; Stop 03/06/19 at 23:18; Status DC Ondansetron HCl (Zofran) 4 mg PRN Q6HRS PRN IV NAUSEA/VOMITING; Start 03/06/19 at 20:30 Acetaminophen (Tylenol) 650 mg PRN Q6HRS PRN PO MILD PAIN 1-3; Start 03/06/19 at 20:30 Morphine Sulfate (Morphine Sulfate) 2 mg PRN Q2HR PRN IV SEVERE PAIN; Start 03/06/19 at 20:30 Acetaminophen/ Hydrocodone Bitart (Lortab 5/325) 1 tab PRN Q6HRS PRN PO MODERATE PAIN; Start 03/06/19 at 20:30 Labetalol HCl (Normodyne Iv Push) 10 mg PRN Q2HR PRN IVP HYPERTENSION; Start 03/06/19 at 20:30 Magnesium Sulfate 50 ml @ 25 mls/hr PRN DAILY PRN IV for Mag < 1.7 on am labs; Start 03/06/19 at 21:30 Amlodipine Besylate (Norvasc) 10 mg DAILY PO Last administered on 03/08/19 07:34; Start 03/07/19 at 09:00 Calcium Acetate (Phoslo) 1,334 mg TIDWMEALS PO Last administered on 03/08/19 07:35; Start 03/07/19 at 08:00 Calcium Carbonate/ Glycine (Tums) 500 mg PRN Q2HRS PRN PO INDIGESTION; Start 03/06/19 at 23:00 Ferrous Sulfate (Feosol) 325 mg DAILYWBKFT PO Last administered on 03/08/19 07:35; Start 03/07/19 at 08:00 Vitamin B Complex/ Vitamin C (Madai-Sean) 1 tab DAILY PO Last administered on 03/08/19 07:34; Start 03/07/19 at 09:00 Furosemide (Lasix) 80 mg QODAY PO Last administered on 03/08/19 07:35; Start 03/08/19 at 09:00 Hydralazine HCl (Apresoline) 10 mg TID PO Last administered on 03/08/19 07:36; Start 03/07/19 at 09:00 Insulin Glargine (Lantus) 15 units QHS SQ Last administered on 03/06/19 23:53; Start 03/06/19 at 23:30; Stop 03/07/19 at 05:44; Status DC Insulin Human Lispro (HumaLOG) 0-9 UNITS QIDACHS SQ Last administered on 03/06/19at 23:54; Start 03/07/19 at 00:00 Dextrose (Dextrose 50%-Water Syringe) 12.5 gm PRN Q15MIN PRN IV SEE COMMENTS Last administered on 03/07/19 11:51; Start 03/06/19 at 23:00 Levothyroxine Sodium (Synthroid) 300 mcg DAILY06 PO Last administered on 03/08/19at 06:00; Start 03/07/19 at 06:00 Albuterol/ Ipratropium (Duoneb) 3 ml RTQID NEB Last administered on 03/08/19at 07:10; Start 03/07/19 at 08:00 Budesonide (Pulmicort) 0.5 mg RTBID NEB Last administered on 03/08/19 07:10; Start 03/07/19 at 08:00 Lisinopril (Prinivil) 20 mg DAILY PO Last administered on 03/08/19 07:36; Start 03/07/19 at 09:00 Metoprolol Succinate (Toprol Xl) 12.5 mg DAILY PO Last administered on 03/08/19 07:35; Start 03/07/19 at 09:00 Fish Oil (Fish Oil) 1,000 mg DAILY PO Last administered on 03/08/19 07:34; Start 03/07/19 at 09:00 Pantoprazole Sodium (Protonix) 40 mg DAILYAC PO Last administered on 03/08/19 07:34; Start 03/07/19 at 07:30 Atorvastatin Calcium (Lipitor) 5 mg QHS PO Last administered on 03/07/19at 23:16; Start 03/07/19 at 21:00 Tramadol HCl (Ultram) 50 mg PRN Q6HRS PRN PO MODERATE PAIN; Start 03/06/19 at 23:00 Trazodone HCl (Desyrel) 100 mg PRN QHS PRN PO INSOMNIA; Start 03/06/19 at 23:00 Insulin Human Lispro (HumaLOG) 6 units TIDWMEALS SQ ; Start 03/07/19 at 08:00; Stop 03/07/19 at 08:00; Status DC Albuterol Sulfate (Ventolin Neb Soln) 2.5 mg PRN Q4HRS PRN NEB SHORTNESS OF BREATH Last administered on 03/07/19at 01:45; Start 03/07/19 at 01:30 Insulin Glargine (Lantus) 12 units QHS SQ ; Start 03/07/19 at 21:00 Insulin Human Lispro (HumaLOG) 3 units TIDAC SQ ; Start 03/07/19 at 07:30 Glucagon (Glucagen) 1 mg 1X ONCE IV Last administered on 03/07/19at 12:01; Start 03/07/19 at 12:00; Stop 03/07/19 at 12:01; Status DC Prednisone (Prednisone) 30 mg DAILY PO Last administered on 03/08/19at 07:34; Start 03/07/19 at 15:30 Ceftriaxone Sodium (Rocephin) 1 gm Q24H IVP ; Start 03/07/19 at 15:00; Stop 03/07/19 at 17:34; Status DC Hydralazine HCl (Apresoline) 25 mg 1X ONCE PO Last administered on 03/07/19at 15:14; Start 03/07/19 at 15:15; Stop 03/07/19 at 15:16; Status DC Lactobacillus Rhamnosus (Culturelle) 1 cap BID PO Last administered on 03/08/19at 07:34; Start 03/07/19 at 21:00 Sodium Chloride 1,000 ml @ 1,000 mls/hr Q1H PRN IV hypotension; Start 03/07/19 at 16:47; Stop 03/07/19 at 22:46; Status DC Diphenhydramine HCl (Benadryl) 25 mg 1X PRN PRN IV ITCHING; Start 03/07/19 at 17:00; Stop 03/08/19 at 16:59 Diphenhydramine HCl (Benadryl) 25 mg 1X PRN PRN IV ITCHING; Start 03/07/19 at 17:00; Stop 03/08/19 at 16:59 Sodium Chloride 1,000 ml @ 400 mls/hr Q2H30M PRN IV PATENCY; Start 03/07/19 at 16:47; Stop 03/08/19 at 04:46; Status DC Info (PHARMACY MONITORING -- do not chart) 1 each PRN DAILY PRN MC SEE COMMENTS; Start 03/07/19 at 17:00 Ceftriaxone Sodium (Rocephin) 1 gm Q24H IVP ; Start 03/07/19 at 21:00 Insulin Human Lispro (HumaLOG) 15 units 1X ONCE SQ Last administered on 03/08/19at 07:43; Start 03/08/19 at 07:30; Stop 03/08/19 at 07:31; Status DC Active Scripts Active Amox Tr-K Clv 500-125 Mg Tab (Amoxicillin/Potassium Clav) 1 Each Tablet 1 Tab PO DAILY Hydralazine Hcl 10 Mg Tablet 10 Mg PO TID MDD 1 Amlodipine Besylate 10 Mg Tablet 10 Mg PO DAILY MDD 1 Lisinopril 40 Mg Tablet 20 Mg PO DAILY MDD 1 [Pantoprazole] 40 MG Tablet.dr 40 Mg PO DAILYAC 30 Days Trazodone Hcl 100 Mg Tablet 100 Mg PO PRN QHS PRN 30 Days Lantus Solostar (Insulin Glargine,Hum.rec.anlog) 100 Unit/1 Ml Insuln.pen 15 Units SQ QHS 30 Days Budesonide 0.5 Mg/2 Ml Ampul.neb 0.5 Mg NEB RTBID 30 Days Aspirin 81 Mg Tab.chew 81 Mg PO DAILYWBKFT 30 Days Carvedilol (Carvedilol) 3.125 Mg Tablet 3.125 Mg PO BIDWMEALS 30 Days Duoneb 0.5-3(2.5) Mg/3 Ml (Albuterol/Ipratropium) 3 Ml Ampul.neb 3 Ml NEB RTQID 30 Days Brilinta (Ticagrelor) 90 Mg Tablet 90 Mg PO BID 30 Days Vitamin D2 (Ergocalciferol (Vitamin D2)) 50,000 Unit Capsule 50,000 Unit PO WEEKLY Reported Furosemide 80 Mg Tablet 80 Mg PO BID [place] 3 Fish Oil Softgel ([place]-3 Fatty Acids/Fish Oil) 1 Each Capsule.dr 1 Each PO DAILY Toprol Xl (Metoprolol Succinate) 25 Mg Tab.er.24h 0.5 Tab PO DAILY Lasix (Furosemide) 80 Mg Tablet 80 Mg PO DAILY Calcium Acetate 667 Mg Tablet 667 Mg PO TIDWMEALS Tylenol (Acetaminophen) 325 Mg Tablet 650 Mg PO PRN Q6HRS Humalog (Insulin Lispro) 100 Unit/1 Ml Cartridge 6 Unit SQ TIDBFRMEAL Ferrous Sulfate 325 Mg Tablet 1 Tab PO DAILY Levothyroxine Sodium 175 Mcg Tablet 1 Tab PO DAILY Reglan (Metoclopramide Hcl) 10 Mg Tablet 5 Mg PO BIDAC Dialyvite Tablet (Folic Acid/Vitamin B Comp W-C) 1 Each Tablet 1 Each PO Vitals/I & O Vital Sign - Last 24 Hours 03/07/19 03/07/19 03/07/19 03/07/19 09:00 11:00 11:01 11:01 Temp 98.5 98.5 Pulse 55 56 55 55 Resp 20 B/P (MAP) 174/84 (114) 174/84 174/84 Pulse Ox 96 O2 Delivery Nasal Cannula O2 Flow Rate 5.0 03/07/19 03/07/19 03/07/19 03/07/19 11:44 15:00 15:14 15:34 Temp 98.7 98.7 Pulse 62 62 Resp 20 B/P (MAP) 194/84 (120) 194/84 Pulse Ox 98 95 96 O2 Delivery Nasal Cannula Nasal Cannula Nasal Cannula O2 Flow Rate 4.0 5.0 3.0 03/07/19 03/07/19 03/07/19 03/08/19 20:00 23:00 23:19 03:00 Temp 98.0 98.8 98.0 98.8 Pulse 87 70 95 Resp 18 22 B/P (MAP) 168/73 (104) 168/72 161/75 (103) Pulse Ox 96 93 O2 Delivery Nasal Cannula Nasal Cannula O2 Flow Rate 3.0 4.0 5.0 03/08/19 03/08/19 03/08/19 03/08/19 07:11 07:34 07:35 07:36 Pulse 95 95 95 B/P (MAP) 161/75 161/75 161/75 Pulse Ox 91 O2 Delivery Nasal Cannula O2 Flow Rate 3.0 03/08/19 07:36 Pulse 95 B/P (MAP) 161/75 Intake and Output 03/07/19 03/07/19 03/08/19 15:00 23:00 07:00 Intake Total 118 ml 150 ml 600 ml Output Total 100 ml Balance 118 ml 50 ml 600 ml JIN ROBLES MD Mar 08, 2019 08:14
[2019-03-08] MEDS ORDERED: INSULIN GLARGINE 300 UNITS/3 ML INSULN.PEN. SQ ONE (09:00)
[2019-03-08] MEDS ORDERED: MAGNESIUM SULFATE 2GM 50 ML IV PRN (09:30)
--- NOTE | 2019-03-08 09:35 | PDOC ---
SUBJECTIVE ROS Follow-up for ESRD Patient claims he is breathing better. Denies chest pain. Declines to go to extra dialysis today CVS: no Orthopnea, no CP RESP: min SOB, no RODRIGUEZ GI: no Nausea, no Vomiting : no Dysuria, no Urgency OBJECTIVE Vital Signs Vital Signs Date Time Temp Pulse Resp B/P (MAP) Pulse Ox O2 Delivery O2 Flow Rate FiO2 03/08/19 08:00 Nasal Cannula 3.0 03/08/19 07:36 95 161/75 03/08/19 07:11 91 03/08/19 07:00 97.8 24 97.8 I & 0 Intake and Output0 03/08/19 07:00 Intake Total 868 ml Output Total 100 ml Balance 768 ml Intake Oral 868 ml Output Urine Total 100 ml # Voids 1 PHYSICAL EXAM Physical Exam General Appearance: Awake Alert Oriented x 3 In no visible resp Distress, facial pallor and overall appears depressed Eyes: VIsion Unchanged Conjunctiva Normal EN: No EN Drainage Mucous Memb. moist (eating breakfast) Neck: no JVD + JVP Supple no palp Thyromegaly CVS: S1 S2 + Murmur No Gallop No Rub +1-2 Edema Resp: RLL Rales no Rhonchi no Acc. Muscle use. Dec AE in LLL GI: BAS +ve NO Bruit Non Tender Non Distended : no CVA tenderness; no Suprapubic Tenderness DIAGNOSIS/ASSESSMENT Assessment & Plan ESRD: Current fluid and E-lyte status does not necessitate emergent need for dialysis. Will re-evaluate for dialysis in the am and continue on MWF schedule. Hyperkalemia: Offered patient dialysis. he declined extra dialysis today. I suspect his hyperkalemia may be related to a fingerstick sugar of 536. Anemia: Evaluate after ultrafiltration and hemoconcentration. Restart Epogen, Transfuse with next HD as needed. No hemoglobin available today. HTN: Current BP meds reviewed. See orders for changes. Hypokalemia: Attempt to correct with hemodialysis Bone & Mineral: Follow phosphorus levels and alter binder regimen as needed Possible fluid overload : Patient currently 3 kg above his estimated dry weight. He declined extra dialysis today. He wants to wait till tomorrow. We'll await cardiology evaluation of the same. CT chest noted. Lower extremity edema: Unclear if some of this is related to his previously poorly controlled hypothyroidism and myxedema stopped versus associated with fluid overload, cardiac etiologies. Right upper extremity swelling: No obvious duplex evidence for stenosis noted. Patient did have infiltration of his AV access at time of his previous hospitalization here. Access appears to be working well currently and hence no angiogram has been ordered. If he is noted to have elevated venous pressures on dialysis we will proceed with angiography. Discussed Plan of Care with Dr. Lamont french WRT timing of LHC (if reqd) and HD co-ordination COMMENT/RELEVANT DATA Meds Current Medications Medications (Trade) Dose Ordered Sig/Celi Start Time Stop Time Status Last Admin Dose Admin Acetaminophen (Tylenol) 650 mg PRN Q6HRS PRN 03/06/19 20:30 Acetaminophen/ Hydrocodone Bitart (Lortab 5/325) 1 tab PRN Q6HRS PRN 03/06/19 20:30 Albuterol Sulfate (Ventolin Neb Soln) 2.5 mg PRN Q4HRS PRN 03/07/19 01:30 03/07/19 01:45 2.5 MG Albuterol/ Ipratropium (Duoneb) 3 ml RTQID 03/07/19 08:00 03/08/19 07:10 3 ML Amlodipine Besylate (Norvasc) 10 mg DAILY 03/07/19 09:00 03/08/19 07:34 10 MG Atorvastatin Calcium (Lipitor) 5 mg QHS 03/07/19 21:00 03/07/19 23:16 5 MG Budesonide (Pulmicort) 0.5 mg RTBID 03/07/19 08:00 03/08/19 07:10 0.5 MG Calcium Acetate (Phoslo) 1,334 mg TIDWMEALS 03/07/19 08:00 03/08/19 07:35 1,334 MG Calcium Carbonate/ Glycine (Tums) 500 mg PRN Q2HRS PRN 03/06/19 23:00 Ceftriaxone Sodium (Rocephin) 1 gm Q24H 03/07/19 21:00 Dextrose (Dextrose 50%-Water Syringe) 12.5 gm PRN Q15MIN PRN 03/06/19 23:00 03/07/19 11:51 25 GM Diphenhydramine HCl (Benadryl) 25 mg 1X PRN PRN 03/07/19 17:00 03/08/19 16:59 Ferrous Sulfate (Feosol) 325 mg DAILYWBKFT 03/07/19 08:00 03/08/19 07:35 325 MG Fish Oil (Fish Oil) 1,000 mg DAILY 03/07/19 09:00 03/08/19 07:34 1,000 MG Furosemide (Lasix) 80 mg QODAY 03/08/19 09:00 03/08/19 07:35 80 MG Glucagon (Glucagen) 1 mg 1X ONCE 03/07/19 12:00 03/07/19 12:01 DC 03/07/19 12:01 1 MG Hydralazine HCl (Apresoline) 25 mg 1X ONCE 03/07/19 15:15 03/07/19 15:16 DC 03/07/19 15:14 25 MG Info (PHARMACY MONITORING -- do not chart) 1 each PRN DAILY PRN 03/07/19 17:00 Insulin Glargine (Lantus) 4 units 1X ONCE 03/08/19 09:00 03/08/19 09:03 DC 03/08/19 09:12 4 UNITS Insulin Human Lispro (HumaLOG) 3 units 1X ONCE 03/08/19 09:00 03/08/19 09:03 DC 03/08/19 09:12 3 UNITS Labetalol HCl (Normodyne Iv Push) 10 mg PRN Q2HR PRN 03/06/19 20:30 Lactobacillus Rhamnosus (Culturelle) 1 cap BID 03/07/19 21:00 03/08/19 07:34 1 CAP Levothyroxine Sodium (Synthroid) 300 mcg DAILY06 03/07/19 06:00 03/08/19 06:00 300 MCG Lisinopril (Prinivil) 20 mg DAILY 03/07/19 09:00 03/08/19 07:36 20 MG Magnesium Sulfate 50 ml @ 25 mls/hr PRN DAILY PRN 03/06/19 21:30 Metoprolol Succinate (Toprol Xl) 12.5 mg DAILY 03/07/19 09:00 03/08/19 07:35 12.5 MG Morphine Sulfate (Morphine Sulfate) 2 mg PRN Q2HR PRN 03/06/19 20:30 Ondansetron HCl (Zofran) 4 mg PRN Q6HRS PRN 03/06/19 20:30 Pantoprazole Sodium (Protonix) 40 mg DAILYAC 03/07/19 07:30 03/08/19 07:34 40 MG Prednisone (Prednisone) 30 mg DAILY 03/07/19 15:30 03/08/19 07:34 30 MG Sodium Chloride 1,000 ml @ 400 mls/hr Q2H30M PRN 03/07/19 16:47 03/08/19 04:46 DC Tramadol HCl (Ultram) 50 mg PRN Q6HRS PRN 03/06/19 23:00 Trazodone HCl (Desyrel) 100 mg PRN QHS PRN 03/06/19 23:00 Vitamin B Complex/ Vitamin C (Madai-Sean) 1 tab DAILY 03/07/19 09:00 03/08/19 07:34 1 TAB Lab Laboratory Tests Test 03/07/19 11:45 03/07/19 12:42 03/07/19 21:44 03/08/19 05:35 Glucose (Fingerstick) 37 mg/dL (70-99) 174 mg/dL (70-99) 185 mg/dL (70-99) Sodium Level 133 mmol/L (136-145) Potassium Level 5.5 mmol/L (3.5-5.1) Chloride Level 94 mmol/L (98-107) Carbon Dioxide Level 27 mmol/L (21-32) Anion Gap 12 (6-14) Blood Urea Nitrogen 25 mg/dL (8-26) Creatinine 3.9 mg/dL (0.7-1.3) Estimated GFR (Cockcroft-Gault) 16.1 Glucose Level 536 mg/dL (70-99) Calcium Level 8.6 mg/dL (8.5-10.1) Phosphorus Level 5.4 mg/dL (2.6-4.7) Magnesium Level 1.9 mg/dL (1.8-2.4) Albumin 3.0 g/dL (3.4-5.0) Test 03/08/19 07:45 03/08/19 08:52 Glucose (Fingerstick) 546 mg/dL (70-99) 499 mg/dL (70-99) Results All relevant outside records, renal labs, imaging studies, telemetry/EKG's were reviewed. Other CT chest done yesterday IMPRESSION: 1. Large left pleural effusion with extensive infiltrate and consolidation in the left lung. 2. Small right pleural effusion. Infiltrate and atelectasis in the right lung particularly inferiorly. 3. Mediastinal and right axillary lymph node enlargement, although there may be very slight improvement. CHARLES KOROMA MD Mar 08, 2019 09:35
--- NOTE | 2019-03-08 10:25 | CARD ---
MR#: [id number] Date of Study: 03/08/2019 Ordering Physician: CHARLES KOROMA, Referring Physician: KRYSTAL JASSO Tech: Anat Pritchard [facility] APPROVED REPORT EXAM: Two-dimensional and M-mode echocardiogram with Doppler and color Doppler. Other Information Quality : AverageHR: 80bpm Rhythm : NSR INDICATION Edema 2D DIMENSIONS Left Atrium(2D)5.2 (1.6-4.0cm)IVSd1.2 (0.7-1.1cm) Aortic Root(2D)3.4 (2.0-3.7cm)LVDd5.3 (3.9-5.9cm) LVOT Diameter2.6 (1.8-2.4cm)PWd1.1 (0.7-1.1cm) LVDs4.0 (2.5-4.0cm)FS (%) 25.9 % SV69.6 mlLVEF(%)50.4 (>50%) M-Mode DIMENSIONS Left Atrium(MM)4.50 (2.5-4.0cm)Aortic Root3.80 (2.2-3.7cm) Aortic Valve AoV Peak Aniceto.167.2cm/sAoV VTI36.8cm AO Peak GR.11.2mmHgLVOT Peak Aniceto.95.7cm/s AO Mean GR.6mmHgAVA (VMAX)2.98cm2 KOTA (VTI)3.00cm2 Mitral Valve MV E Ognzrisq012.4cm/sMV E Peak Gr.10mmHg MV DECEL [id number] A Bfynbmcx999.9cm/s MV E Mean Gr.5mmHgE/A Ratio1.0 Pulmonary Valve PV Peak Kfomnwse190.2cm/s Tricuspid Valve TR P. Lnjmaspg937pt/sRAP NUIKQPSW4rrFm TR Peak Gr.72ahAoTGMD96jcZf LEFT VENTRICLE The left ventricle is normal size. There is mild concentric left ventricular hypertrophy. Left ventri andrzej systolic function is low normal. The Ejection Fraction is 50-55%. There is normal LV segmental wa ll motion. Transmitral Doppler flow pattern is Grade II-pseudonormal filling dynamics. RIGHT VENTRICLE The right ventricle is mildly dilated. There is normal right ventricular wall thickness. The right ve ntricular systolic function is normal. ATRIA The left atrium is moderately dilated. The right atrium is moderately dilated. The interatrial septum is intact with no evidence for an atrial septal defect or patent foramen ovale as noted on 2-D or Do ppler imaging. AORTIC VALVE The aortic valve is calcified but opens well. The aortic valve is trileaflet. Doppler and Color Flow revealed no significant aortic regurgitation. There is no significant aortic valvular stenosis. There is no aortic valvular vegetation. MITRAL VALVE The mitral valve is normal in structure and function. There is no evidence of mitral valve prolapse. There is no mitral valve stenosis. Doppler and Color-flow revealed trace to mild mitral regurgitation . TRICUSPID VALVE The tricuspid valve is normal in structure and function. Doppler and Color Flow revealed mild tricusp id regurgitation. There is moderate pulmonary hypertension. The PA pressure was estimated at 40 mmHg. There is no tricuspid valve prolapse or vegetation. There is no tricuspid valve stenosis. PULMONIC VALVE The pulmonic valve is not well visualized. GREAT VESSELS The aortic root is normal in size. The ascending aorta is normal in size. The IVC is dilated and savana apses >50% with inspiration. PERICARDIAL EFFUSION There is large left pleural effusion. There is a trace pericardial effusion. Critical Notification Critical Value: No <Conclusion> Left ventricle systolic function is low normal. The Ejection Fraction is 50-55%. There is normal LV segmental wall motion. Doppler and Color Flow revealed mild tricuspid regurgitation. There is moderate pulmonary hypertensio n. The PA pressure was estimated at 40 mmHg. The IVC is dilated and collapses >50% with inspiration. There is large left pleural effusion. There is a trace pericardial effusion. Signed by : Manjinder Miguel, Electronically Approved : 03/08/2019 10:25:07
[2019-03-08 11:00] VITALS: BP 161/67
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
[2019-03-08] MEDS: ASPIRIN ENTERIC COATED 81 MG TABLET.DR. PO SCH (11:39)
[2019-03-08 11:54] LABS: CHOLESTEROL/HDL RATIO 1.9
--- NOTE | 2019-03-08 11:54 | NUR ---
SS following up with discharge planning and referral regarding needing assistance with oxygen services. SS met with pt and discussed. Pt reported that he has an oxygen concentrator at home but would like portable O2 concentrator. SS contacted [facility], ; fax [phone], who verified that pt was on service with them. [facility] reported that they are currently needing oxygen testing (6 minute walk), script for continuous O2 liter flow and portable oxygen concentrator, and documented need and benefit for portable oxygen concentrator. SS discussed with Dr. Meng and notified pt's RN.
[2019-03-08 15:00] VITALS: BP 139/56
--- NOTE | 2019-03-08 15:57 | PDOC ---
PULMONARY PROGRESS NOTES Subjective PT LESS SOA NO CHEST PAIN IN INCREASE COUGH Vitals Vital Signs Date Time Temp Pulse Resp B/P (MAP) Pulse Ox O2 Delivery O2 Flow Rate FiO2 03/08/19 15:39 Nasal Cannula 3.0 03/08/19 15:00 98.2 72 24 139/56 (83) 93 98.2 ROS: No Nausea, No Chest Pain, No Abdominal Pain, No Increase Cough General: Alert, No acute distress HEENT: Other Lungs: Crackles, Other (LEFT DULL ) Cardiovascular: S1, S2 Abdomen: Soft, Non-tender Neuro Exam: Alert Extremities: No Edema, Other Skin: Warm Labs Laboratory Tests Test 03/06/19 20:44 03/07/19 03:30 03/07/19 05:08 03/07/19 05:17 Glucose (Fingerstick) 372 mg/dL (70-99) 30 mg/dL (70-99) 136 mg/dL (70-99) White Blood Count 4.3 x10^3/uL (4.0-11.0) Red Blood Count 3.00 x10^6/uL (4.30-5.70) Hemoglobin 9.0 g/dL (13.0-17.5) Hematocrit 26.6 % (39.0-53.0) Mean Corpuscular Volume 89 fL (79-100) Mean Corpuscular Hemoglobin 30 pg (25-35) Mean Corpuscular Hemoglobin Concent 34 g/dL (31-37) Red Cell Distribution Width 16.7 % (11.5-14.5) Platelet Count 126 x10^3/uL (140-400) Neutrophils (%) (Auto) 51 % (31-73) Lymphocytes (%) (Auto) 29 % (24-48) Monocytes (%) (Auto) 10 % (0-9) Eosinophils (%) (Auto) 8 % (0-3) Basophils (%) (Auto) 2 % (0-3) Neutrophils # (Auto) 2.2 x10^3uL (1.8-7.7) Lymphocytes # (Auto) 1.3 x10^3/uL (1.0-4.8) Monocytes # (Auto) 0.4 x10^3/uL (0.0-1.1) Eosinophils # (Auto) 0.3 x10^3/uL (0.0-0.7) Basophils # (Auto) 0.1 x10^3/uL (0.0-0.2) Prothrombin Time 13.4 SEC (11.7-14.0) Prothromb Time International Ratio 1.1 (0.8-1.1) Sodium Level 140 mmol/L (136-145) Potassium Level 3.3 mmol/L (3.5-5.1) Chloride Level 100 mmol/L (98-107) Carbon Dioxide Level 33 mmol/L (21-32) Anion Gap 7 (6-14) Blood Urea Nitrogen 31 mg/dL (8-26) Creatinine 5.4 mg/dL (0.7-1.3) Estimated GFR (Cockcroft-Gault) 11.0 Glucose Level 67 mg/dL (70-99) Calcium Level 8.7 mg/dL (8.5-10.1) Phosphorus Level 4.9 mg/dL (2.6-4.7) Magnesium Level 1.9 mg/dL (1.8-2.4) Albumin 2.9 g/dL (3.4-5.0) Procalcitonin 0.65 ng/mL (0.00-0.10) Test 03/07/19 07:00 03/07/19 07:16 03/07/19 07:26 03/07/19 08:03 Glucose Level 44 mg/dL (70-99) Glucose (Fingerstick) 29 mg/dL (70-99) 137 mg/dL (70-99) 68 mg/dL (70-99) Test 03/07/19 09:05 03/07/19 11:45 03/07/19 12:42 03/07/19 21:44 Glucose (Fingerstick) 103 mg/dL (70-99) 37 mg/dL (70-99) 174 mg/dL (70-99) 185 mg/dL (70-99) Test 03/08/19 05:35 03/08/19 07:45 03/08/19 08:52 03/08/19 10:45 Sodium Level 133 mmol/L (136-145) Potassium Level 5.5 mmol/L (3.5-5.1) Chloride Level 94 mmol/L (98-107) Carbon Dioxide Level 27 mmol/L (21-32) Anion Gap 12 (6-14) Blood Urea Nitrogen 25 mg/dL (8-26) Creatinine 3.9 mg/dL (0.7-1.3) Estimated GFR (Cockcroft-Gault) 16.1 Glucose Level 536 mg/dL (70-99) Calcium Level 8.6 mg/dL (8.5-10.1) Phosphorus Level 5.4 mg/dL (2.6-4.7) Magnesium Level 1.9 mg/dL (1.8-2.4) Albumin 3.0 g/dL (3.4-5.0) Triglycerides Level 86 mg/dL (0-150) Cholesterol Level 146 mg/dL (0-200) LDL Cholesterol, Calculated 52 mg/dL (0-100) VLDL Cholesterol, Calculated 17 mg/dL (0-40) Non-HDL Cholesterol Calculated 69 mg/dL (0-129) HDL Cholesterol 77 mg/dL (40-60) Cholesterol/HDL Ratio 1.9 Thyroid Stimulating Hormone (TSH) 6.088 uIU/mL (0.358-3.74) Glucose (Fingerstick) 546 mg/dL (70-99) 499 mg/dL (70-99) 444 mg/dL (70-99) Test 03/08/19 14:50 Potassium Level 4.6 mmol/L (3.5-5.1) Laboratory Tests Test 03/07/19 21:44 03/08/19 05:35 03/08/19 07:45 03/08/19 08:52 Glucose (Fingerstick) 185 mg/dL (70-99) 546 mg/dL (70-99) 499 mg/dL (70-99) Sodium Level 133 mmol/L (136-145) Potassium Level 5.5 mmol/L (3.5-5.1) Chloride Level 94 mmol/L (98-107) Carbon Dioxide Level 27 mmol/L (21-32) Anion Gap 12 (6-14) Blood Urea Nitrogen 25 mg/dL (8-26) Creatinine 3.9 mg/dL (0.7-1.3) Estimated GFR (Cockcroft-Gault) 16.1 Glucose Level 536 mg/dL (70-99) Calcium Level 8.6 mg/dL (8.5-10.1) Phosphorus Level 5.4 mg/dL (2.6-4.7) Magnesium Level 1.9 mg/dL (1.8-2.4) Albumin 3.0 g/dL (3.4-5.0) Triglycerides Level 86 mg/dL (0-150) Cholesterol Level 146 mg/dL (0-200) LDL Cholesterol, Calculated 52 mg/dL (0-100) VLDL Cholesterol, Calculated 17 mg/dL (0-40) Non-HDL Cholesterol Calculated 69 mg/dL (0-129) HDL Cholesterol 77 mg/dL (40-60) Cholesterol/HDL Ratio 1.9 Thyroid Stimulating Hormone (TSH) 6.088 uIU/mL (0.358-3.74) Test 03/08/19 10:45 03/08/19 14:50 Glucose (Fingerstick) 444 mg/dL (70-99) Potassium Level 4.6 mmol/L (3.5-5.1) Medications Active Scripts Medications Dose Route/Sig Max Daily Dose Days Date Category Furosemide 80 Mg Tablet 80 Mg PO BID 02/18/19 Reported Amox Tr-K Clv 500-125 Mg Tab (Amoxicillin/Potassium Clav) 1 Each Tablet 1 Tab PO DAILY 11/15/18 Rx [place] 3 Fish Oil Softgel ([place]-3 Fatty Acids/Fish Oil) 1 Each Capsule.dr 1 Each PO DAILY 11/07/18 Reported Toprol Xl (Metoprolol Succinate) 25 Mg Tab.er.24h 0.5 Tab PO DAILY 11/07/18 Reported Lasix (Furosemide) 80 Mg Tablet 80 Mg PO DAILY 11/07/18 Reported Calcium Acetate 667 Mg Tablet 667 Mg PO TIDWMEALS 11/07/18 Reported Hydralazine Hcl 10 Mg Tablet 10 Mg PO TID MDD 1 10/04/18 Rx Amlodipine Besylate 10 Mg Tablet 10 Mg PO DAILY MDD 1 10/04/18 Rx Lisinopril 40 Mg Tablet 20 Mg PO DAILY MDD 1 10/04/18 Rx Tylenol (Acetaminophen) 325 Mg Tablet 650 Mg PO PRN Q6HRS 10/02/18 Reported Humalog (Insulin Lispro) 100 Unit/1 Ml Cartridge 6 Unit SQ TIDBFRMEAL 10/02/18 Reported Ferrous Sulfate 325 Mg Tablet 1 Tab PO DAILY 09/15/18 Reported Levothyroxine Sodium 175 Mcg Tablet 1 Tab PO DAILY 09/15/18 Reported Reglan (Metoclopramide Hcl) 10 Mg Tablet 5 Mg PO BIDAC 09/15/18 Reported [Pantoprazole] 40 MG Tablet.dr 40 Mg PO DAILYAC 30 09/09/18 Rx Trazodone Hcl 100 Mg Tablet 100 Mg PO PRN QHS PRN 30 09/09/18 Rx Lantus Solostar (Insulin Glargine,Hum.rec.anlog) 100 Unit/1 Ml Insuln.pen 15 Units SQ QHS 30 09/09/18 Rx Budesonide 0.5 Mg/2 Ml Ampul.neb 0.5 Mg NEB RTBID 30 08/29/18 Rx Aspirin 81 Mg Tab.chew 81 Mg PO DAILYWBKFT 30 08/29/18 Rx Carvedilol (Carvedilol) 3.125 Mg Tablet 3.125 Mg PO BIDWMEALS 30 08/29/18 Rx Duoneb 0.5-3(2.5) Mg/3 Ml (Albuterol/Ipratropium) 3 Ml Ampul.neb 3 Ml NEB RTQID 30 08/29/18 Rx Brilinta (Ticagrelor) 90 Mg Tablet 90 Mg PO BID 30 08/29/18 Rx Vitamin D2 (Ergocalciferol (Vitamin D2)) 50,000 Unit Capsule 50,000 Unit PO WEEKLY 04/02/18 Rx Dialyvite Tablet (Folic Acid/Vitamin B Comp W-C) 1 Each Tablet 1 Each PO 03/28/18 Reported Impression . IMPRESSION: 1. Recurrent pleural effusion, status post previous thoracentesis, transudative effusion. Cytology was negative. All cultures were negative. 2. Periods of hypoglycemia. 3. Encephalopathy, metabolic in nature. 4. Progressive dyspnea with acute respiratory failure secondary to acute on chronic diastolic heart failure. 5. Hypertension. 6. End-stage renal disease. 7. Right upper extremity swelling. 8. Coronary artery disease with previous stent placement in the RCA and circ. 9. Type 2 diabetes. 10. Hyperlipidemia. 11. Tobacco dependence. 12. Chronic obstructive pulmonary disease. Plan . SPOKE WITH REBEKAH DOUGLAS IN AM CT REVIEWED 1. We will continue current support. 2. CT chest. NOTED 3. Negative fluid balance doing hemodialysis. 4. The patient instructed on the importance of discontinuing tobacco use. 5. We will defer diabetes management to PCP. YOSI ZHANG MD Mar 08, 2019 15:57
[2019-03-08 19:10] VITALS: BP 193/81
[2019-03-08] MEDS: ATORVASTATIN CALCIUM 10 MG TABLET. PO SCH (20:52)
[2019-03-08] MEDS: cefTRIAXone IV Push 1 GM VIAL. IVP SCH (20:54)
[2019-03-08] MEDS ORDERED: INSULIN GLARGINE 300 UNITS/3 ML INSULN.PEN. SQ SCH (21:00)
[2019-03-08 22:30] VITALS: BP 148/67
[2019-03-09 02:55] VITALS: BP 160/59
[2019-03-09] MEDS ORDERED: INSULIN LISPRO 300 UNITS/3 ML INSULN.PEN. SQ ONE ×2 (05:15→06:45)
[2019-03-09] MEDS: LEVOTHYROXINE 150 MCG TABLET PO SCH (06:17)
[2019-03-09 07:00] VITALS: BP 169/82
[2019-03-09 07:16] LABS: CALCIUM 8.4 mg/dL (8.5-10.1); CREATININE 6.7 mg/dL (0.7-1.3); GFR 8.6; PHOSPHORUS 5.3 mg/dL (2.6-4.7); POTASSIUM 4.4 mmol/L (3.5-5.1)
[2019-03-09] MEDS: IPRATRPIUM/ALBUTEROL 0.5/2.5MG 3 ML NEBU. NEB SCH ×4 (08:00→19:42)
[2019-03-09] MEDS: BUDESONIDE 0.5 MG/2 ML NEBU. NEB SCH ×2 (08:00→19:41)
[2019-03-09] MEDS: INSULIN LISPRO 300 UNITS/3 ML INSULN.PEN. SQ SCH ×7 (08:08→21:15)
[2019-03-09] MEDS ORDERED: ONDANSETRON PF 4 MG/2 ML VIAL. ONE (08:15)
[2019-03-09] MEDS: PANTOPRAZOLE 40 MG TABLET.DR. PO SCH (09:38)
[2019-03-09] MEDS: FERROUS SULFATE 325 MG TABLET. PO SCH (09:39)
[2019-03-09] MEDS: ASPIRIN ENTERIC COATED 81 MG TABLET.DR. PO SCH (09:39)
[2019-03-09] MEDS: CALCIUM ACETATE 667 MG CAPSULE PO SCH ×3 (09:40→16:24)
[2019-03-09] MEDS: hydrALAZINE 10 MG TABLET PO SCH ×3 (09:40→20:29)
[2019-03-09] MEDS: amLODIPine BESYLATE 10 MG TABLET PO SCH (09:41)
[2019-03-09] MEDS: OMEGA-3 FATTY ACIDS/FISH OIL 1,000 MG CAPSULE. PO SCH (09:41)
[2019-03-09] MEDS: LACTOBACILLUS RHAMNOSUS GG 1 CAPSULE. PO SCH ×2 (09:41→20:29)
[2019-03-09] MEDS: predniSONE 10 MG TABLET PO SCH (09:42)
[2019-03-09] MEDS: LISINOPRIL 20 MG TABLET PO SCH (09:42)
[2019-03-09] MEDS: FOLIC/VIT B COMP W-C (RENAL) TABLET. PO SCH (09:43)
[2019-03-09] MEDS: METOPROLOL SUCC 24HR ER 25 MG TAB.ER.24H. PO SCH (09:43)
[2019-03-09] MEDS ORDERED: IV NORMAL SALINE 1000ML BAG 1,000 ML IV PRN ×2 (09:47)
[2019-03-09] MEDS ORDERED: DIALYSIS PATIENT. MC PRN ×2 (10:00)
--- NOTE | 2019-03-09 10:01 | PDOC ---
PROGRESS NOTES Chief Complaint Chief Complaint A/P: Shortness of breath - likely 2/2 fluid overloaded, bilateral pleural effusions. Will check procalcitonin, read as bilateral infiltrates, he is high risk for HCA P Acute encephalopathy - metabolic from his hypoglycemia, most likely. Will give D50 Hypoglycemia - only received 16u Lantus, 10u lispro + 5 additional units lispro for glucose > 700 yesterday HTN urgency, he is s/p cardiac arrest in July with 2 SCOTTY. Seems to have fairly significant CHF symptoms, needs UF ESRD on HD - misses once per week fairly regularly. He is due otday will consult nephrology RUE swelling - concern for issues with his fistula, will check venous and arterial dopplers CAD with stent at RCA, LCx - taking meds, will cont Dm2 on insulin - very brittle historically, will reduce his home lantus to 8u. previously required D10 for hypoglycemia earlier this year HLD - cont statin Previous smoker - counseled Bilateral pleural effusion - recently had thoracentesis last month. This seems CHF related. will consult pulm, will cont to monitor, diurese. Was just drained last month, looks like chronic CHF FEN - ADA, renal diet PPX - heparin FULL CODE CVC for CHF exacerbation History of Present Illness History of Present Illness Mr Ochoa is a 58 year old male w/ PMHx DM, ESRD, recent cardiac arrest who presents with being confused and short of breath by his , was hypoglycemic, went to [facility] ED, was hyperglycemic in the 700s, given 10 units of lispro and transferred to [facility] for bilateral infiltrates and pleural effusions. He was recently hospitalized for dyspnea and had a PEA arrest on dialysis on 08/21/18. He is hospitalized frequently for shortness of breath and glucose control problems as well as problems with dialysis. Also notes that he has had high blood sugars averaging in the 500s since discharge, but he is very brittle and frequently has blood glucose in the 30s as well. He normally takes 16u lantus QHS and 11u lispro or regular insulin TID with meals, but variably changes the doses at home per his . Feels no nausea, no further vomiting or diarrhea. He denies CP but does SOB with laying flat. He does not appear to be in significant respiratory distress at this time other than requiring nasal cannula oxygen at 5 L whereby his sats are 98%. He was just seen 3 weeks ago for large left pleural effusion, had this drained, noted transudative. He notes he has requested at dialysis that his dry weight be changed from 81kg to 85kg recently due to him feeling his voice gets hoarse when he is diuresed to 81kg. Glucose was 30 upon transfer to [place] on 03/07/19 in the morning requiring multiple amps of d50. He also noted RUE swelling, US showed patent graft, no clots or significant stenoses. 03/08: Overnight his lantus was apparently held. Glucose very high this morning. He has a much better appetite. Is refusing daily dialysis, ok with schedule today and IR for thoracentesis today. Glucose has been on the higher side Vitals Vitals Vital Signs Date Time Temp Pulse Resp B/P (MAP) Pulse Ox O2 Delivery O2 Flow Rate FiO2 03/09/19 09:43 68 124/58 03/09/19 07:00 98.1 18 100 Nasal Cannula 5.0 98.1 Physical Exam General: Alert, Oriented X3, Cooperative, No acute distress Heart: Regular rate (Sr no significant ectopies), Normal S1, Normal S2, Other (2/6 ssytolic murmur to LLS border) Lungs: Crackles, Other (LEFT DULL ) Abdomen: Soft, No tenderness Extremities: No cyanosis, Other (2+ bilateral Le pitting edema) Skin: No breakdown Labs LABS Laboratory Tests Test 03/08/19 10:45 03/08/19 14:50 03/08/19 15:06 03/08/19 16:48 Glucose (Fingerstick) 444 mg/dL (70-99) 190 mg/dL (70-99) 247 mg/dL (70-99) Potassium Level 4.6 mmol/L (3.5-5.1) Test 03/08/19 20:51 03/09/19 04:22 03/09/19 06:18 03/09/19 06:30 Glucose (Fingerstick) 351 mg/dL (70-99) 552 mg/dL (70-99) 501 mg/dL (70-99) Hemoglobin 8.7 g/dL (13.0-17.5) Sodium Level 136 mmol/L (136-145) Potassium Level 4.4 mmol/L (3.5-5.1) Chloride Level 96 mmol/L (98-107) Carbon Dioxide Level 30 mmol/L (21-32) Anion Gap 10 (6-14) Blood Urea Nitrogen 62 mg/dL (8-26) Creatinine 6.7 mg/dL (0.7-1.3) Estimated GFR (Cockcroft-Gault) 8.6 Glucose Level 536 mg/dL (70-99) Calcium Level 8.4 mg/dL (8.5-10.1) Phosphorus Level 5.3 mg/dL (2.6-4.7) Magnesium Level 2.3 mg/dL (1.8-2.4) Albumin 3.0 g/dL (3.4-5.0) Test 03/09/19 07:42 Glucose (Fingerstick) 397 mg/dL (70-99) Comment Review of Relevant I have reviewed the following items yesenia (where applicable) has been applied. Labs Laboratory Tests Test 03/07/19 11:45 03/07/19 12:42 03/07/19 21:44 03/08/19 05:35 Glucose (Fingerstick) 37 mg/dL (70-99) 174 mg/dL (70-99) 185 mg/dL (70-99) Sodium Level 133 mmol/L (136-145) Potassium Level 5.5 mmol/L (3.5-5.1) Chloride Level 94 mmol/L (98-107) Carbon Dioxide Level 27 mmol/L (21-32) Anion Gap 12 (6-14) Blood Urea Nitrogen 25 mg/dL (8-26) Creatinine 3.9 mg/dL (0.7-1.3) Estimated GFR (Cockcroft-Gault) 16.1 Glucose Level 536 mg/dL (70-99) Calcium Level 8.6 mg/dL (8.5-10.1) Phosphorus Level 5.4 mg/dL (2.6-4.7) Magnesium Level 1.9 mg/dL (1.8-2.4) Albumin 3.0 g/dL (3.4-5.0) Triglycerides Level 86 mg/dL (0-150) Cholesterol Level 146 mg/dL (0-200) LDL Cholesterol, Calculated 52 mg/dL (0-100) VLDL Cholesterol, Calculated 17 mg/dL (0-40) Non-HDL Cholesterol Calculated 69 mg/dL (0-129) HDL Cholesterol 77 mg/dL (40-60) Cholesterol/HDL Ratio 1.9 Thyroid Stimulating Hormone (TSH) 6.088 uIU/mL (0.358-3.74) Test 03/08/19 07:45 03/08/19 08:52 03/08/19 10:45 03/08/19 14:50 Glucose (Fingerstick) 546 mg/dL (70-99) 499 mg/dL (70-99) 444 mg/dL (70-99) Potassium Level 4.6 mmol/L (3.5-5.1) Test 03/08/19 15:06 03/08/19 16:48 03/08/19 20:51 03/09/19 04:22 Glucose (Fingerstick) 190 mg/dL (70-99) 247 mg/dL (70-99) 351 mg/dL (70-99) 552 mg/dL (70-99) Test 03/09/19 06:18 03/09/19 06:30 03/09/19 07:42 Glucose (Fingerstick) 501 mg/dL (70-99) 397 mg/dL (70-99) Hemoglobin 8.7 g/dL (13.0-17.5) Sodium Level 136 mmol/L (136-145) Potassium Level 4.4 mmol/L (3.5-5.1) Chloride Level 96 mmol/L (98-107) Carbon Dioxide Level 30 mmol/L (21-32) Anion Gap 10 (6-14) Blood Urea Nitrogen 62 mg/dL (8-26) Creatinine 6.7 mg/dL (0.7-1.3) Estimated GFR (Cockcroft-Gault) 8.6 Glucose Level 536 mg/dL (70-99) Calcium Level 8.4 mg/dL (8.5-10.1) Phosphorus Level 5.3 mg/dL (2.6-4.7) Magnesium Level 2.3 mg/dL (1.8-2.4) Albumin 3.0 g/dL (3.4-5.0) Laboratory Tests Test 03/08/19 10:45 03/08/19 14:50 03/08/19 15:06 03/08/19 16:48 Glucose (Fingerstick) 444 mg/dL (70-99) 190 mg/dL (70-99) 247 mg/dL (70-99) Potassium Level 4.6 mmol/L (3.5-5.1) Test 03/08/19 20:51 03/09/19 04:22 03/09/19 06:18 03/09/19 06:30 Glucose (Fingerstick) 351 mg/dL (70-99) 552 mg/dL (70-99) 501 mg/dL (70-99) Hemoglobin 8.7 g/dL (13.0-17.5) Sodium Level 136 mmol/L (136-145) Potassium Level 4.4 mmol/L (3.5-5.1) Chloride Level 96 mmol/L (98-107) Carbon Dioxide Level 30 mmol/L (21-32) Anion Gap 10 (6-14) Blood Urea Nitrogen 62 mg/dL (8-26) Creatinine 6.7 mg/dL (0.7-1.3) Estimated GFR (Cockcroft-Gault) 8.6 Glucose Level 536 mg/dL (70-99) Calcium Level 8.4 mg/dL (8.5-10.1) Phosphorus Level 5.3 mg/dL (2.6-4.7) Magnesium Level 2.3 mg/dL (1.8-2.4) Albumin 3.0 g/dL (3.4-5.0) Test 03/09/19 07:42 Glucose (Fingerstick) 397 mg/dL (70-99) Medications Current Medications Insulin Human Lispro (HumaLOG) 0-9 UNITS QIDACHS SQ ; Start 03/06/19 at 21:00; Stop 03/06/19 at 23:18; Status DC Dextrose (Dextrose 50%-Water Syringe) 12.5 gm PRN Q15MIN PRN IV SEE COMMENTS; Start 03/06/19 at 20:15; Stop 03/06/19 at 23:18; Status DC Ondansetron HCl (Zofran) 4 mg PRN Q6HRS PRN IV NAUSEA/VOMITING Last administered on 03/09/19at 08:46; Start 03/06/19 at 20:30 Acetaminophen (Tylenol) 650 mg PRN Q6HRS PRN PO MILD PAIN 1-3; Start 03/06/19 at 20:30 Morphine Sulfate (Morphine Sulfate) 2 mg PRN Q2HR PRN IV SEVERE PAIN; Start 03/06/19 at 20:30 Acetaminophen/ Hydrocodone Bitart (Lortab 5/325) 1 tab PRN Q6HRS PRN PO SEVERE PAIN; Start 03/06/19 at 20:30 Labetalol HCl (Normodyne Iv Push) 10 mg PRN Q2HR PRN IVP HYPERTENSION; Start 03/06/19 at 20:30 Magnesium Sulfate 50 ml @ 25 mls/hr PRN DAILY PRN IV for Mag < 1.7 on am labs; Start 03/06/19 at 21:30; Stop 03/08/19 at 15:09; Status DC Amlodipine Besylate (Norvasc) 10 mg DAILY PO Last administered on 03/08/19at 07:34; Start 03/07/19 at 09:00 Calcium Acetate (Phoslo) 1,334 mg TIDWMEALS PO Last administered on 03/09/19 09:40; Start 03/07/19 at 08:00 Calcium Carbonate/ Glycine (Tums) 500 mg PRN Q2HRS PRN PO INDIGESTION; Start 03/06/19 at 23:00 Ferrous Sulfate (Feosol) 325 mg DAILYWBKFT PO Last administered on 03/09/19at 09:39; Start 03/07/19 at 08:00 Vitamin B Complex/ Vitamin C (Madai-Sean) 1 tab DAILY PO Last administered on 03/09/19at 09:43; Start 03/07/19 at 09:00 Furosemide (Lasix) 80 mg QODAY PO Last administered on 03/08/19at 07:35; Start 03/08/19 at 09:00 Hydralazine HCl (Apresoline) 10 mg TID PO Last administered on 03/08/19 20:53; Start 03/07/19 at 09:00 Insulin Glargine (Lantus) 15 units QHS SQ Last administered on 03/06/19 23:53; Start 03/06/19 at 23:30; Stop 03/07/19 at 05:44; Status DC Insulin Human Lispro (HumaLOG) 0-9 UNITS QIDACHS SQ Last administered on 03/08/19at 21:03; Start 03/07/19 at 00:00; Stop 03/09/19 at 06:42; Status DC Dextrose (Dextrose 50%-Water Syringe) 12.5 gm PRN Q15MIN PRN IV SEE COMMENTS Last administered on 03/07/19at 11:51; Start 03/06/19 at 23:00 Levothyroxine Sodium (Synthroid) 300 mcg DAILY06 PO Last administered on 03/09/19 06:17; Start 03/07/19 at 06:00 Albuterol/ Ipratropium (Duoneb) 3 ml RTQID NEB Last administered on 03/08/19 20:16; Start 03/07/19 at 08:00 Budesonide (Pulmicort) 0.5 mg RTBID NEB Last administered on 03/08/19 20:16; Start 03/07/19 at 08:00 Lisinopril (Prinivil) 20 mg DAILY PO Last administered on 03/08/19 07:36; Start 03/07/19 at 09:00 Metoprolol Succinate (Toprol Xl) 12.5 mg DAILY PO Last administered on 03/08/19 07:35; Start 03/07/19 at 09:00 Fish Oil (Fish Oil) 1,000 mg DAILY PO Last administered on 03/09/19 09:41; Start 03/07/19 at 09:00 Pantoprazole Sodium (Protonix) 40 mg DAILYAC PO Last administered on 03/09/19 09:38; Start 03/07/19 at 07:30 Atorvastatin Calcium (Lipitor) 5 mg QHS PO Last administered on 03/08/19 20:52; Start 03/07/19 at 21:00 Tramadol HCl (Ultram) 50 mg PRN Q6HRS PRN PO MODERATE PAIN; Start 03/06/19 at 23:00 Trazodone HCl (Desyrel) 100 mg PRN QHS PRN PO INSOMNIA Last administered on 03/09/19at 00:36; Start 03/06/19 at 23:00 Insulin Human Lispro (HumaLOG) 6 units TIDWMEALS SQ ; Start 03/07/19 at 08:00; Stop 03/07/19 at 08:00; Status DC Albuterol Sulfate (Ventolin Neb Soln) 2.5 mg PRN Q4HRS PRN NEB SHORTNESS OF BREATH Last administered on 03/07/19at 01:45; Start 03/07/19 at 01:30 Insulin Glargine (Lantus) 12 units QHS SQ ; Start 03/07/19 at 21:00; Stop 03/08/19 at 08:11; Status DC Insulin Human Lispro (HumaLOG) 3 units TIDAC SQ Last administered on 03/09/19at 08:09; Start 03/07/19 at 07:30 Glucagon (Glucagen) 1 mg 1X ONCE IV Last administered on 03/07/19at 12:01; Start 03/07/19 at 12:00; Stop 03/07/19 at 12:01; Status DC Prednisone (Prednisone) 30 mg DAILY PO Last administered on 03/09/19at 09:42; Start 03/07/19 at 15:30 Ceftriaxone Sodium (Rocephin) 1 gm Q24H IVP ; Start 03/07/19 at 15:00; Stop 03/07/19 at 17:34; Status DC Hydralazine HCl (Apresoline) 25 mg 1X ONCE PO Last administered on 03/07/19at 15:14; Start 03/07/19 at 15:15; Stop 03/07/19 at 15:16; Status DC Lactobacillus Rhamnosus (Culturelle) 1 cap BID PO Last administered on 03/09/19at 09:41; Start 03/07/19 at 21:00 Sodium Chloride 1,000 ml @ 1,000 mls/hr Q1H PRN IV hypotension; Start 03/07/19 at 16:47; Stop 03/07/19 at 22:46; Status DC Diphenhydramine HCl (Benadryl) 25 mg 1X PRN PRN IV ITCHING; Start 03/07/19 at 17:00; Stop 03/08/19 at 16:59; Status DC Diphenhydramine HCl (Benadryl) 25 mg 1X PRN PRN IV ITCHING; Start 03/07/19 at 17:00; Stop 03/08/19 at 16:59; Status DC Sodium Chloride 1,000 ml @ 400 mls/hr Q2H30M PRN IV PATENCY; Start 03/07/19 at 16:47; Stop 03/08/19 at 04:46; Status DC Info (PHARMACY MONITORING -- do not chart) 1 each PRN DAILY PRN MC SEE COMMENTS; Start 03/07/19 at 17:00; Stop 03/09/19 at 09:51; Status DC Ceftriaxone Sodium (Rocephin) 1 gm Q24H IVP Last administered on 03/08/19at 20:54; Start 03/07/19 at 21:00 Insulin Human Lispro (HumaLOG) 15 units 1X ONCE SQ Last administered on 03/08/19at 07:43; Start 03/08/19 at 07:30; Stop 03/08/19 at 07:31; Status DC Insulin Glargine (Lantus) 8 units QHS SQ Last administered on 03/08/19at 21:03; Start 03/08/19 at 21:00 Insulin Glargine (Lantus) 4 units 1X ONCE SQ Last administered on 03/08/19at 09:12; Start 03/08/19 at 09:00; Stop 03/08/19 at 09:03; Status DC Insulin Human Lispro (HumaLOG) 3 units 1X ONCE SQ Last administered on 03/08/19at 09:12; Start 03/08/19 at 09:00; Stop 03/08/19 at 09:03; Status DC Magnesium Sulfate 50 ml @ 25 mls/hr PRN DAILY PRN IV for Mag < 1.7 on am labs; Start 03/08/19 at 09:30 Aspirin (Ecotrin) 81 mg DAILYWBKFT PO Last administered on 03/09/19at 09:39; Start 03/08/19 at 12:00 Insulin Human Lispro (HumaLOG) 15 units 1X ONCE SQ Last administered on 03/09/19at 05:16; Start 03/09/19 at 05:15; Stop 03/09/19 at 05:20; Status DC Insulin Human Lispro (HumaLOG) 0-9 UNITS Q4HRS SQ Last administered on 03/09/19at 08:08; Start 03/09/19 at 08:00 Insulin Human Lispro (HumaLOG) 10 units 1X ONCE SQ Last administered on 03/09/19at 06:51; Start 03/09/19 at 06:45; Stop 03/09/19 at 06:46; Status DC Ondansetron HCl (Zofran) 4 mg STK-MED ONCE .ROUTE ; Start 03/09/19 at 08:15; Stop 03/09/19 at 08:16; Status DC Sodium Chloride 1,000 ml @ 1,000 mls/hr Q1H PRN IV hypotension; Start 03/09/19 at 09:47; Stop 03/09/19 at 15:46 Sodium Chloride 1,000 ml @ 400 mls/hr Q2H30M PRN IV PATENCY; Start 03/09/19 at 09:47; Stop 03/09/19 at 21:46 Info (PHARMACY MONITORING -- do not chart) 1 each PRN DAILY PRN MC SEE COMMENTS; Start 03/09/19 at 10:00; Stop 03/09/19 at 10:00; Status DC Info (PHARMACY MONITORING -- do not chart) 1 each PRN DAILY PRN MC SEE COMMENTS; Start 03/09/19 at 10:00 Active Scripts Active Amox Tr-K Clv 500-125 Mg Tab (Amoxicillin/Potassium Clav) 1 Each Tablet 1 Tab PO DAILY Hydralazine Hcl 10 Mg Tablet 10 Mg PO TID MDD 1 Amlodipine Besylate 10 Mg Tablet 10 Mg PO DAILY MDD 1 Lisinopril 40 Mg Tablet 20 Mg PO DAILY MDD 1 [Pantoprazole] 40 MG Tablet.dr 40 Mg PO DAILYAC 30 Days Trazodone Hcl 100 Mg Tablet 100 Mg PO PRN QHS PRN 30 Days Lantus Solostar (Insulin Glargine,Hum.rec.anlog) 100 Unit/1 Ml Insuln.pen 15 Units SQ QHS 30 Days Budesonide 0.5 Mg/2 Ml Ampul.neb 0.5 Mg NEB RTBID 30 Days Aspirin 81 Mg Tab.chew 81 Mg PO DAILYWBKFT 30 Days Carvedilol (Carvedilol) 3.125 Mg Tablet 3.125 Mg PO BIDWMEALS 30 Days Duoneb 0.5-3(2.5) Mg/3 Ml (Albuterol/Ipratropium) 3 Ml Ampul.neb 3 Ml NEB RTQID 30 Days Brilinta (Ticagrelor) 90 Mg Tablet 90 Mg PO BID 30 Days Vitamin D2 (Ergocalciferol (Vitamin D2)) 50,000 Unit Capsule 50,000 Unit PO WEEKLY Reported Furosemide 80 Mg Tablet 80 Mg PO BID [place] 3 Fish Oil Softgel ([place]-3 Fatty Acids/Fish Oil) 1 Each Capsule.dr 1 Each PO DAILY Toprol Xl (Metoprolol Succinate) 25 Mg Tab.er.24h 0.5 Tab PO DAILY Lasix (Furosemide) 80 Mg Tablet 80 Mg PO DAILY Calcium Acetate 667 Mg Tablet 667 Mg PO TIDWMEALS Tylenol (Acetaminophen) 325 Mg Tablet 650 Mg PO PRN Q6HRS Humalog (Insulin Lispro) 100 Unit/1 Ml Cartridge 6 Unit SQ TIDBFRMEAL Ferrous Sulfate 325 Mg Tablet 1 Tab PO DAILY Levothyroxine Sodium 175 Mcg Tablet 1 Tab PO DAILY Reglan (Metoclopramide Hcl) 10 Mg Tablet 5 Mg PO BIDAC Dialyvite Tablet (Folic Acid/Vitamin B Comp W-C) 1 Each Tablet 1 Each PO Vitals/I & O Vital Sign - Last 24 Hours 03/08/19 03/08/19 03/08/19 03/08/19 10:58 11:00 12:55 15:00 Temp 97.9 98.2 97.9 98.2 Pulse 95 76 72 Resp 24 24 B/P (MAP) 161/75 161/67 (98) 139/56 (83) Pulse Ox 96 99 93 O2 Delivery Nasal Cannula Nasal Cannula Nasal Cannula O2 Flow Rate 3.0 5.0 5.0 03/08/19 03/08/19 03/08/19 03/08/19 15:39 19:10 20:05 20:16 Temp 98.0 98.0 Pulse 84 Resp 22 B/P (MAP) 193/81 (118) Pulse Ox 92 98 O2 Delivery Nasal Cannula Nasal Cannula Nasal Cannula Nasal Cannula O2 Flow Rate 3.0 5.0 3.0 3.0 03/08/19 03/08/19 03/08/19 03/09/19 20:18 20:53 22:30 02:55 Temp 98.6 98.1 98.6 98.1 Pulse 84 74 77 Resp 22 21 B/P (MAP) 193/81 148/67 (94) 160/59 (92) Pulse Ox 98 98 97 O2 Delivery Nasal Cannula Nasal Cannula Nasal Cannula O2 Flow Rate 3.0 5.0 5.0 03/09/19 03/09/19 03/09/19 03/09/19 07:00 09:40 09:42 09:43 Temp 98.1 98.1 Pulse 70 68 67 68 Resp 18 B/P (MAP) 169/82 (111) 131/57 124/58 124/58 Pulse Ox 100 O2 Delivery Nasal Cannula O2 Flow Rate 5.0 Intake and Output 03/08/19 03/08/19 03/09/19 15:00 23:00 07:00 Intake Total 240 ml 200 ml 200 ml Output Total 25 ml Balance 215 ml 200 ml 200 ml JIN ROBLES MD Mar 09, 2019 10:00
[2019-03-09 11:00] VITALS: BP 130/62
--- NOTE | 2019-03-09 11:56 | PDOC ---
CARDIO Progress Notes Date and Time Date of Service 03/09/19 Time of Evaluation 1145 Subjective Subjective: No Chest Pain, No shortness of breath, No Palpitations Vitals Vitals Vital Signs Date Time Temp Pulse Resp B/P (MAP) Pulse Ox O2 Delivery O2 Flow Rate FiO2 03/09/19 11:00 98.1 65 20 130/62 (84) 95 Nasal Cannula 5.0 98.1 Weight Weight [ ] Input and Output Intake and Output Intake and Output0 03/09/19 07:00 Intake Total 640 ml Output Total 25 ml Balance 615 ml Intake Oral 640 ml Output Urine Total 25 ml Laboratory Labs Laboratory Tests Test 03/08/19 14:50 03/08/19 15:06 03/08/19 16:48 03/08/19 20:51 Potassium Level 4.6 mmol/L (3.5-5.1) Glucose (Fingerstick) 190 mg/dL (70-99) 247 mg/dL (70-99) 351 mg/dL (70-99) Test 03/09/19 04:22 03/09/19 06:18 03/09/19 06:30 03/09/19 07:42 Glucose (Fingerstick) 552 mg/dL (70-99) 501 mg/dL (70-99) 397 mg/dL (70-99) Hemoglobin 8.7 g/dL (13.0-17.5) Sodium Level 136 mmol/L (136-145) Potassium Level 4.4 mmol/L (3.5-5.1) Chloride Level 96 mmol/L (98-107) Carbon Dioxide Level 30 mmol/L (21-32) Anion Gap 10 (6-14) Blood Urea Nitrogen 62 mg/dL (8-26) Creatinine 6.7 mg/dL (0.7-1.3) Estimated GFR (Cockcroft-Gault) 8.6 Glucose Level 536 mg/dL (70-99) Calcium Level 8.4 mg/dL (8.5-10.1) Phosphorus Level 5.3 mg/dL (2.6-4.7) Magnesium Level 2.3 mg/dL (1.8-2.4) Albumin 3.0 g/dL (3.4-5.0) Physical Exam HEENT: Neck Supple W Full Motion Chest: Symmetric LUNGS: Other (basilar crackles) Heart: S1S2, RRR (SR) Abdomen: Soft N/T Extremities: No Calf Tenderness, Other (2+ bilateral LE pitting edema) Neurology: alert, oriented, follow commands Assessment Assessment 1. Recurrent pleural effusion: S/P left thoracentesis with 2L off 2. Acute on chronic diastolic CHF: erratic BG particularly hypoglycemic episodes/uncontrolled HTN contributing to CHF. Compensated 3. HTN: controlled 4. CAD s/p PCI/SCOTTY to RCA and LCx, clinically stable 5. HLP: on goal 6. Hx of ICM: recovered with EF maintaining and unchanged 50-55% with moderate pulmonary HTN 7. ESRD 8. DM2; uncontrolled BG ranging from 20s to 500s 9. anemia of chronic disease: Hgb at 9 10. Noncompliance: does not check BP at home. Skips meals and does not eat snacks. 11. Protein malnutrition: Alb 3.0 Recommendations 1. ASA/plavix and secondary prevention measures 2. fluid off loading per HD. Titrate BP meds per BP trend with post thoracentesis, and ongoing HD. discussed with RN 3. Will benefit from insulin pump. Dietary consult. 4. Supportive care JOHANA RUDOLPH [employer] Mar 09, 2019 11:56
[2019-03-09] MEDS: DEXTROSE 50% 25 GM / 50ML DISP.SYRIN. IV PRN (12:00)
--- NOTE | 2019-03-09 12:33 | PDOC ---
Dialysis Progress Note Dialysis Note Dialysis Note Seen on Hemodialysis, tolerating treatment Okay so far Vitals on Hemodialysis: 133/63 66 General Appearance: Asleep ; Drowsy Neck: No JVD + JVP Chest: CTA Babatunde, few basal rales Heart: S1 S2 Abdomen - Soft NTND Extremities - + Edema ESRD : Dialysis as below F 180 NR 3.0 Hrs 3 K 2.5 Ca 140 Na 30 HC03 Qb 350 + Qd 500+ Heparin 0 Units Uf 4-5 Kgs or to dry weight as tolerated May give 25-50 gms of 25% Albumin if needed to maintain Hemodynamic stability Treatment plan reviewed and discussed with table attendant Vitals Vital Signs Vital Signs Date Time Temp Pulse Resp B/P (MAP) Pulse Ox O2 Delivery O2 Flow Rate FiO2 03/09/19 11:00 98.1 65 20 130/62 (84) 95 Nasal Cannula 5.0 98.1 Labs Last Labs Laboratory Tests Test 03/07/19 12:42 03/07/19 21:44 03/08/19 05:35 03/08/19 07:45 Glucose (Fingerstick) 174 mg/dL (70-99) 185 mg/dL (70-99) 546 mg/dL (70-99) Sodium Level 133 mmol/L (136-145) Potassium Level 5.5 mmol/L (3.5-5.1) Chloride Level 94 mmol/L (98-107) Carbon Dioxide Level 27 mmol/L (21-32) Anion Gap 12 (6-14) Blood Urea Nitrogen 25 mg/dL (8-26) Creatinine 3.9 mg/dL (0.7-1.3) Estimated GFR (Cockcroft-Gault) 16.1 Glucose Level 536 mg/dL (70-99) Calcium Level 8.6 mg/dL (8.5-10.1) Phosphorus Level 5.4 mg/dL (2.6-4.7) Magnesium Level 1.9 mg/dL (1.8-2.4) Albumin 3.0 g/dL (3.4-5.0) Triglycerides Level 86 mg/dL (0-150) Cholesterol Level 146 mg/dL (0-200) LDL Cholesterol, Calculated 52 mg/dL (0-100) VLDL Cholesterol, Calculated 17 mg/dL (0-40) Non-HDL Cholesterol Calculated 69 mg/dL (0-129) HDL Cholesterol 77 mg/dL (40-60) Cholesterol/HDL Ratio 1.9 Thyroid Stimulating Hormone (TSH) 6.088 uIU/mL (0.358-3.74) Test 03/08/19 08:52 03/08/19 10:45 03/08/19 14:50 03/08/19 15:06 Glucose (Fingerstick) 499 mg/dL (70-99) 444 mg/dL (70-99) 190 mg/dL (70-99) Potassium Level 4.6 mmol/L (3.5-5.1) Test 03/08/19 16:48 03/08/19 20:51 03/09/19 04:22 03/09/19 06:18 Glucose (Fingerstick) 247 mg/dL (70-99) 351 mg/dL (70-99) 552 mg/dL (70-99) 501 mg/dL (70-99) Test 03/09/19 06:30 03/09/19 07:42 03/09/19 11:45 03/09/19 12:01 Hemoglobin 8.7 g/dL (13.0-17.5) Sodium Level 136 mmol/L (136-145) Potassium Level 4.4 mmol/L (3.5-5.1) Chloride Level 96 mmol/L (98-107) Carbon Dioxide Level 30 mmol/L (21-32) Anion Gap 10 (6-14) Blood Urea Nitrogen 62 mg/dL (8-26) Creatinine 6.7 mg/dL (0.7-1.3) Estimated GFR (Cockcroft-Gault) 8.6 Glucose Level 536 mg/dL (70-99) Calcium Level 8.4 mg/dL (8.5-10.1) Phosphorus Level 5.3 mg/dL (2.6-4.7) Magnesium Level 2.3 mg/dL (1.8-2.4) Albumin 3.0 g/dL (3.4-5.0) Glucose (Fingerstick) 397 mg/dL (70-99) 24 mg/dL (70-99) 108 mg/dL (70-99) Laboratory Tests Test 03/08/19 14:50 03/08/19 15:06 03/08/19 16:48 03/08/19 20:51 Potassium Level 4.6 mmol/L (3.5-5.1) Glucose (Fingerstick) 190 mg/dL (70-99) 247 mg/dL (70-99) 351 mg/dL (70-99) Test 03/09/19 04:22 03/09/19 06:18 03/09/19 06:30 03/09/19 07:42 Glucose (Fingerstick) 552 mg/dL (70-99) 501 mg/dL (70-99) 397 mg/dL (70-99) Hemoglobin 8.7 g/dL (13.0-17.5) Sodium Level 136 mmol/L (136-145) Potassium Level 4.4 mmol/L (3.5-5.1) Chloride Level 96 mmol/L (98-107) Carbon Dioxide Level 30 mmol/L (21-32) Anion Gap 10 (6-14) Blood Urea Nitrogen 62 mg/dL (8-26) Creatinine 6.7 mg/dL (0.7-1.3) Estimated GFR (Cockcroft-Gault) 8.6 Glucose Level 536 mg/dL (70-99) Calcium Level 8.4 mg/dL (8.5-10.1) Phosphorus Level 5.3 mg/dL (2.6-4.7) Magnesium Level 2.3 mg/dL (1.8-2.4) Albumin 3.0 g/dL (3.4-5.0) Test 03/09/19 11:45 03/09/19 12:01 Glucose (Fingerstick) 24 mg/dL (70-99) 108 mg/dL (70-99) CHARLES KOROMA MD Mar 09, 2019 12:33
--- NOTE | 2019-03-09 13:34 | RAD ---
Ultrasound-guided left-sided thoracentesis 03/09/2019 1:30 PM Indication: Recurrent left pleural effusion Procedure: Informed consent was obtained. A timeout procedure was performed. Sonographic evaluation of the left chest was performed demonstrating moderate pleural effusion. The left posterior chest was prepped and draped in sterile fashion. 1% lidocaine without epinephrine was administered for local anesthesia. Real-time ultrasonographic guidance was used in passing a 5 [place] Yueh catheter into the left pleural space. 2 L of serosanguineous pleural fluid was removed. Samples of fluid were sent to the lab for further evaluation per ordering physician request. The catheter was removed and pressure held to achieve hemostasis. A sterile dressing was applied. No immediate complications were identified. The patient tolerated the procedure well. Impression: Left sided ultrasound-guided thoracentesis
[2019-03-09 15:00] VITALS: BP 152/66
--- NOTE | 2019-03-09 15:14 | PDOC ---
PULMONARY PROGRESS NOTES Subjective PT LESS SOA AFTER THORACENTESIS Vitals Vital Signs Date Time Temp Pulse Resp B/P (MAP) Pulse Ox O2 Delivery O2 Flow Rate FiO2 03/09/19 11:00 98.1 65 20 130/62 (84) 95 Nasal Cannula 5.0 98.1 ROS: No Nausea, No Chest Pain, No Abdominal Pain, No Increase Cough General: Alert, No acute distress HEENT: Other Lungs: Crackles, Other (LEFT DULL ) Cardiovascular: S1, S2 Abdomen: Soft, Non-tender Neuro Exam: Alert Extremities: No Edema, Other Skin: Warm Labs Laboratory Tests Test 03/07/19 21:44 03/08/19 05:35 03/08/19 07:45 03/08/19 08:52 Glucose (Fingerstick) 185 mg/dL (70-99) 546 mg/dL (70-99) 499 mg/dL (70-99) Sodium Level 133 mmol/L (136-145) Potassium Level 5.5 mmol/L (3.5-5.1) Chloride Level 94 mmol/L (98-107) Carbon Dioxide Level 27 mmol/L (21-32) Anion Gap 12 (6-14) Blood Urea Nitrogen 25 mg/dL (8-26) Creatinine 3.9 mg/dL (0.7-1.3) Estimated GFR (Cockcroft-Gault) 16.1 Glucose Level 536 mg/dL (70-99) Calcium Level 8.6 mg/dL (8.5-10.1) Phosphorus Level 5.4 mg/dL (2.6-4.7) Magnesium Level 1.9 mg/dL (1.8-2.4) Albumin 3.0 g/dL (3.4-5.0) Triglycerides Level 86 mg/dL (0-150) Cholesterol Level 146 mg/dL (0-200) LDL Cholesterol, Calculated 52 mg/dL (0-100) VLDL Cholesterol, Calculated 17 mg/dL (0-40) Non-HDL Cholesterol Calculated 69 mg/dL (0-129) HDL Cholesterol 77 mg/dL (40-60) Cholesterol/HDL Ratio 1.9 Thyroid Stimulating Hormone (TSH) 6.088 uIU/mL (0.358-3.74) Test 03/08/19 10:45 03/08/19 14:50 03/08/19 15:06 03/08/19 16:48 Glucose (Fingerstick) 444 mg/dL (70-99) 190 mg/dL (70-99) 247 mg/dL (70-99) Potassium Level 4.6 mmol/L (3.5-5.1) Test 03/08/19 20:51 03/09/19 04:22 03/09/19 06:18 03/09/19 06:30 Glucose (Fingerstick) 351 mg/dL (70-99) 552 mg/dL (70-99) 501 mg/dL (70-99) Hemoglobin 8.7 g/dL (13.0-17.5) Sodium Level 136 mmol/L (136-145) Potassium Level 4.4 mmol/L (3.5-5.1) Chloride Level 96 mmol/L (98-107) Carbon Dioxide Level 30 mmol/L (21-32) Anion Gap 10 (6-14) Blood Urea Nitrogen 62 mg/dL (8-26) Creatinine 6.7 mg/dL (0.7-1.3) Estimated GFR (Cockcroft-Gault) 8.6 Glucose Level 536 mg/dL (70-99) Calcium Level 8.4 mg/dL (8.5-10.1) Phosphorus Level 5.3 mg/dL (2.6-4.7) Magnesium Level 2.3 mg/dL (1.8-2.4) Albumin 3.0 g/dL (3.4-5.0) Test 03/09/19 07:42 03/09/19 11:45 03/09/19 12:01 03/09/19 14:44 Glucose (Fingerstick) 397 mg/dL (70-99) 24 mg/dL (70-99) 108 mg/dL (70-99) 77 mg/dL (70-99) Laboratory Tests Test 03/08/19 16:48 03/08/19 20:51 03/09/19 04:22 03/09/19 06:18 Glucose (Fingerstick) 247 mg/dL (70-99) 351 mg/dL (70-99) 552 mg/dL (70-99) 501 mg/dL (70-99) Test 03/09/19 06:30 03/09/19 07:42 03/09/19 11:45 03/09/19 12:01 Hemoglobin 8.7 g/dL (13.0-17.5) Sodium Level 136 mmol/L (136-145) Potassium Level 4.4 mmol/L (3.5-5.1) Chloride Level 96 mmol/L (98-107) Carbon Dioxide Level 30 mmol/L (21-32) Anion Gap 10 (6-14) Blood Urea Nitrogen 62 mg/dL (8-26) Creatinine 6.7 mg/dL (0.7-1.3) Estimated GFR (Cockcroft-Gault) 8.6 Glucose Level 536 mg/dL (70-99) Calcium Level 8.4 mg/dL (8.5-10.1) Phosphorus Level 5.3 mg/dL (2.6-4.7) Magnesium Level 2.3 mg/dL (1.8-2.4) Albumin 3.0 g/dL (3.4-5.0) Glucose (Fingerstick) 397 mg/dL (70-99) 24 mg/dL (70-99) 108 mg/dL (70-99) Test 03/09/19 14:44 Glucose (Fingerstick) 77 mg/dL (70-99) Medications Active Scripts Medications Dose Route/Sig Max Daily Dose Days Date Category Furosemide 80 Mg Tablet 80 Mg PO BID 02/18/19 Reported Amox Tr-K Clv 500-125 Mg Tab (Amoxicillin/Potassium Clav) 1 Each Tablet 1 Tab PO DAILY 11/15/18 Rx [place] 3 Fish Oil Softgel ([place]-3 Fatty Acids/Fish Oil) 1 Each Capsule.dr 1 Each PO DAILY 11/07/18 Reported Toprol Xl (Metoprolol Succinate) 25 Mg Tab.er.24h 0.5 Tab PO DAILY 11/07/18 Reported Lasix (Furosemide) 80 Mg Tablet 80 Mg PO DAILY 11/07/18 Reported Calcium Acetate 667 Mg Tablet 667 Mg PO TIDWMEALS 11/07/18 Reported Hydralazine Hcl 10 Mg Tablet 10 Mg PO TID MDD 1 10/04/18 Rx Amlodipine Besylate 10 Mg Tablet 10 Mg PO DAILY MDD 1 10/04/18 Rx Lisinopril 40 Mg Tablet 20 Mg PO DAILY MDD 10/04/18 Rx Tylenol (Acetaminophen) 325 Mg Tablet 650 Mg PO PRN Q6HRS 10/02/18 Reported Humalog (Insulin Lispro) 100 Unit/1 Ml Cartridge 6 Unit SQ TIDBFRMEAL 10/02/18 Reported Ferrous Sulfate 325 Mg Tablet 1 Tab PO DAILY 09/15/18 Reported Levothyroxine Sodium 175 Mcg Tablet 1 Tab PO DAILY 09/15/18 Reported Reglan (Metoclopramide Hcl) 10 Mg Tablet 5 Mg PO BIDAC 09/15/18 Reported [Pantoprazole] 40 MG Tablet.dr 40 Mg PO DAILYAC 30 09/09/18 Rx Trazodone Hcl 100 Mg Tablet 100 Mg PO PRN QHS PRN 30 09/09/18 Rx Lantus Solostar (Insulin Glargine,Hum.rec.anlog) 100 Unit/1 Ml Insuln.pen 15 Units SQ QHS 30 09/09/18 Rx Budesonide 0.5 Mg/2 Ml Ampul.neb 0.5 Mg NEB RTBID 30 08/29/18 Rx Aspirin 81 Mg Tab.chew 81 Mg PO DAILYWBKFT 30 08/29/18 Rx Carvedilol (Carvedilol) 3.125 Mg Tablet 3.125 Mg PO BIDWMEALS 30 08/29/18 Rx Duoneb 0.5-3(2.5) Mg/3 Ml (Albuterol/Ipratropium) 3 Ml Ampul.neb 3 Ml NEB RTQID 30 08/29/18 Rx Brilinta (Ticagrelor) 90 Mg Tablet 90 Mg PO BID 30 08/29/18 Rx Vitamin D2 (Ergocalciferol (Vitamin D2)) 50,000 Unit Capsule 50,000 Unit PO WEEKLY 04/02/18 Rx Dialyvite Tablet (Folic Acid/Vitamin B Comp W-C) 1 Each Tablet 1 Each PO 03/28/18 Reported Impression . IMPRESSION: 1. Recurrent pleural effusion, status post previous thoracentesis, transudative effusion. Cytology was negative. All cultures were negative. 2. Periods of hypoglycemia. 3. Encephalopathy, metabolic in nature. 4. Progressive dyspnea with acute respiratory failure secondary to acute on chronic diastolic heart failure. 5. Hypertension. 6. End-stage renal disease. 7. Right upper extremity swelling. 8. Coronary artery disease with previous stent placement in the RCA and circ. 9. Type 2 diabetes. 10. Hyperlipidemia. 11. Tobacco dependence. 12. Chronic obstructive pulmonary disease. Plan . REMOVED 2 LITERS OF FLUID CONTINUE SUPPORT HOME SOON OK BY ME HD FOLLOW UP OUT PT YOSI ZHANG MD Mar 09, 2019 15:14
[2019-03-09] MEDS: CLOPIDOGREL BISULFATE 75 MG TABLET PO SCH (16:24)
[2019-03-09 19:00] VITALS: BP 158/68
[2019-03-09] MEDS: ATORVASTATIN CALCIUM 10 MG TABLET. PO SCH (20:29)
[2019-03-09] MEDS ORDERED: INSULIN GLARGINE 300 UNITS/3 ML INSULN.PEN. SQ SCH (21:00)
[2019-03-09] MEDS: cefTRIAXone IV Push 1 GM VIAL. IVP SCH (21:16)
[2019-03-09 23:30] VITALS: BP 172/71
[2019-03-10] MEDS: INSULIN LISPRO 300 UNITS/3 ML INSULN.PEN. SQ SCH ×4 (00:08→12:00)
[2019-03-10 03:50] VITALS: BP 152/67
[2019-03-10 05:29] LABS: ALBUMIN 2.9 g/dL (3.4-5.0); CALCIUM 8.4 mg/dL (8.5-10.1); CREATININE 5.3 mg/dL (0.7-1.3); GFR 11.3; POTASSIUM 4.7 mmol/L (3.5-5.1)
[2019-03-10 07:00] VITALS: BP 149/69
[2019-03-10] MEDS: LEVOTHYROXINE 150 MCG TABLET PO SCH (07:07)
--- NOTE | 2019-03-10 07:25 | PDOC ---
PULMONARY PROGRESS NOTES Subjective sob, cough better, no pain, on home 02 4 lpm Vitals Vital Signs Date Time Temp Pulse Resp B/P (MAP) Pulse Ox O2 Delivery O2 Flow Rate FiO2 03/10/19 03:50 98.7 70 18 152/67 (95) 100 Nasal Cannula 4.0 98.7 ROS: No Nausea, No Chest Pain, No Abdominal Pain, No Increase Cough General: Alert, No acute distress HEENT: Other Lungs: Crackles, Other (LEFT DULL ) Cardiovascular: S1, S2 Abdomen: Soft, Non-tender Neuro Exam: Alert, Oriented Extremities: No Edema, Other Skin: Warm Labs Laboratory Tests Test 03/08/19 07:45 03/08/19 08:52 03/08/19 10:45 03/08/19 14:50 Glucose (Fingerstick) 546 mg/dL (70-99) 499 mg/dL (70-99) 444 mg/dL (70-99) Potassium Level 4.6 mmol/L (3.5-5.1) Test 03/08/19 15:06 03/08/19 16:48 03/08/19 20:51 03/09/19 04:22 Glucose (Fingerstick) 190 mg/dL (70-99) 247 mg/dL (70-99) 351 mg/dL (70-99) 552 mg/dL (70-99) Test 03/09/19 06:18 03/09/19 06:30 03/09/19 07:42 03/09/19 11:45 Glucose (Fingerstick) 501 mg/dL (70-99) 397 mg/dL (70-99) 24 mg/dL (70-99) Hemoglobin 8.7 g/dL (13.0-17.5) Sodium Level 136 mmol/L (136-145) Potassium Level 4.4 mmol/L (3.5-5.1) Chloride Level 96 mmol/L (98-107) Carbon Dioxide Level 30 mmol/L (21-32) Anion Gap 10 (6-14) Blood Urea Nitrogen 62 mg/dL (8-26) Creatinine 6.7 mg/dL (0.7-1.3) Estimated GFR (Cockcroft-Gault) 8.6 Glucose Level 536 mg/dL (70-99) Calcium Level 8.4 mg/dL (8.5-10.1) Phosphorus Level 5.3 mg/dL (2.6-4.7) Magnesium Level 2.3 mg/dL (1.8-2.4) Albumin 3.0 g/dL (3.4-5.0) Test 03/09/19 12:01 03/09/19 14:44 03/09/19 16:04 03/09/19 20:35 Glucose (Fingerstick) 108 mg/dL (70-99) 77 mg/dL (70-99) 117 mg/dL (70-99) Glucose Level 670 mg/dL (70-99) Test 03/10/19 00:05 03/10/19 03:44 03/10/19 04:15 Glucose Level 711 mg/dL (70-99) 438 mg/dL (70-99) Glucose (Fingerstick) 405 mg/dL (70-99) Sodium Level 135 mmol/L (136-145) Potassium Level 4.7 mmol/L (3.5-5.1) Chloride Level 98 mmol/L (98-107) Carbon Dioxide Level 29 mmol/L (21-32) Anion Gap 8 (6-14) Blood Urea Nitrogen 55 mg/dL (8-26) Creatinine 5.3 mg/dL (0.7-1.3) Estimated GFR (Cockcroft-Gault) 11.3 Calcium Level 8.4 mg/dL (8.5-10.1) Phosphorus Level 4.0 mg/dL (2.6-4.7) Magnesium Level 2.2 mg/dL (1.8-2.4) Albumin 2.9 g/dL (3.4-5.0) Laboratory Tests Test 03/09/19 07:42 03/09/19 11:45 03/09/19 12:01 03/09/19 14:44 Glucose (Fingerstick) 397 mg/dL (70-99) 24 mg/dL (70-99) 108 mg/dL (70-99) 77 mg/dL (70-99) Test 03/09/19 16:04 03/09/19 20:35 03/10/19 00:05 03/10/19 03:44 Glucose (Fingerstick) 117 mg/dL (70-99) 405 mg/dL (70-99) Glucose Level 670 mg/dL (70-99) 711 mg/dL (70-99) Test 03/10/19 04:15 Sodium Level 135 mmol/L (136-145) Potassium Level 4.7 mmol/L (3.5-5.1) Chloride Level 98 mmol/L (98-107) Carbon Dioxide Level 29 mmol/L (21-32) Anion Gap 8 (6-14) Blood Urea Nitrogen 55 mg/dL (8-26) Creatinine 5.3 mg/dL (0.7-1.3) Estimated GFR (Cockcroft-Gault) 11.3 Glucose Level 438 mg/dL (70-99) Calcium Level 8.4 mg/dL (8.5-10.1) Phosphorus Level 4.0 mg/dL (2.6-4.7) Magnesium Level 2.2 mg/dL (1.8-2.4) Albumin 2.9 g/dL (3.4-5.0) Medications Active Scripts Medications Dose Route/Sig Max Daily Dose Days Date Category Furosemide 80 Mg Tablet 80 Mg PO BID 02/18/19 Reported Amox Tr-K Clv 500-125 Mg Tab (Amoxicillin/Potassium Clav) 1 Each Tablet 1 Tab PO DAILY 11/15/18 Rx [place] 3 Fish Oil Softgel ([place]-3 Fatty Acids/Fish Oil) 1 Each Capsule.dr 1 Each PO DAILY 11/07/18 Reported Toprol Xl (Metoprolol Succinate) 25 Mg Tab.er.24h 0.5 Tab PO DAILY 11/07/18 Reported Lasix (Furosemide) 80 Mg Tablet 80 Mg PO DAILY 11/07/18 Reported Calcium Acetate 667 Mg Tablet 667 Mg PO TIDWMEALS 11/07/18 Reported Hydralazine Hcl 10 Mg Tablet 10 Mg PO TID MDD 1 10/04/18 Rx Amlodipine Besylate 10 Mg Tablet 10 Mg PO DAILY MDD 1 10/04/18 Rx Lisinopril 40 Mg Tablet 20 Mg PO DAILY MDD 1 10/04/18 Rx Tylenol (Acetaminophen) 325 Mg Tablet 650 Mg PO PRN Q6HRS 10/02/18 Reported Humalog (Insulin Lispro) 100 Unit/1 Ml Cartridge 6 Unit SQ TIDBFRMEAL 10/02/18 Reported Ferrous Sulfate 325 Mg Tablet 1 Tab PO DAILY 09/15/18 Reported Levothyroxine Sodium 175 Mcg Tablet 1 Tab PO DAILY 09/15/18 Reported Reglan (Metoclopramide Hcl) 10 Mg Tablet 5 Mg PO BIDAC 09/15/18 Reported [Pantoprazole] 40 MG Tablet.dr 40 Mg PO DAILYAC 30 09/09/18 Rx Trazodone Hcl 100 Mg Tablet 100 Mg PO PRN QHS PRN 30 09/09/18 Rx Lantus Solostar (Insulin Glargine,Hum.rec.anlog) 100 Unit/1 Ml Insuln.pen 15 Units SQ QHS 30 09/09/18 Rx Budesonide 0.5 Mg/2 Ml Ampul.neb 0.5 Mg NEB RTBID 30 08/29/18 Rx Aspirin 81 Mg Tab.chew 81 Mg PO DAILYWBKFT 30 08/29/18 Rx Carvedilol (Carvedilol) 3.125 Mg Tablet 3.125 Mg PO BIDWMEALS 30 08/29/18 Rx Duoneb 0.5-3(2.5) Mg/3 Ml (Albuterol/Ipratropium) 3 Ml Ampul.neb 3 Ml NEB RTQID 30 08/29/18 Rx Brilinta (Ticagrelor) 90 Mg Tablet 90 Mg PO BID 30 08/29/18 Rx Vitamin D2 (Ergocalciferol (Vitamin D2)) 50,000 Unit Capsule 50,000 Unit PO WEEKLY 04/02/18 Rx Dialyvite Tablet (Folic Acid/Vitamin B Comp W-C) 1 Each Tablet 1 Each PO 03/28/18 Reported Impression . IMPRESSION: 1. Recurrent pleural effusion, status post previous thoracentesis, transudative effusion. Cytology was negative. All cultures were negative. 2. Periods of hypoglycemia. 3. Encephalopathy, metabolic in nature. resolved 4. Progressive dyspnea with acute respiratory failure secondary to acute on chronic diastolic heart failure. 5. Hypertension. 6. End-stage renal disease. 7. Right upper extremity swelling. 8. Coronary artery disease with previous stent placement in the RCA and circ. 9. Type 2 diabetes. 10. Hyperlipidemia. 11. Tobacco dependence. 12. Chronic obstructive pulmonary disease. Plan . s/p thoracentesis REMOVED 2 LITERS OF FLUID, sob improved 02 BD, ICS prednisone 30 mg daily w taper by 10 mg q 3d CONTINUE SUPPORT HD FOLLOW UP OUT PT w dr charlene sofia to dc from pulm standpoint BRYAN NICOLE MD Mar 10, 2019 07:25
[2019-03-10] MEDS: IPRATRPIUM/ALBUTEROL 0.5/2.5MG 3 ML NEBU. NEB SCH ×2 (08:08→11:53)
[2019-03-10] MEDS: BUDESONIDE 0.5 MG/2 ML NEBU. NEB SCH (08:08)
[2019-03-10] MEDS: PANTOPRAZOLE 40 MG TABLET.DR. PO SCH (08:31)
[2019-03-10] MEDS: FERROUS SULFATE 325 MG TABLET. PO SCH (08:32)
[2019-03-10] MEDS: ASPIRIN ENTERIC COATED 81 MG TABLET.DR. PO SCH (08:32)
[2019-03-10] MEDS: CALCIUM ACETATE 667 MG CAPSULE PO SCH ×2 (08:32→12:32)
[2019-03-10] MEDS: CLOPIDOGREL BISULFATE 75 MG TABLET PO SCH (08:32)
[2019-03-10] MEDS: FUROSEMIDE 80 MG TABLET. PO SCH (08:33)
[2019-03-10] MEDS: OMEGA-3 FATTY ACIDS/FISH OIL 1,000 MG CAPSULE. PO SCH (08:33)
[2019-03-10] MEDS: LACTOBACILLUS RHAMNOSUS GG 1 CAPSULE. PO SCH (08:33)
[2019-03-10] MEDS: hydrALAZINE 10 MG TABLET PO SCH (08:33)
[2019-03-10] MEDS: LISINOPRIL 20 MG TABLET PO SCH (08:34)
[2019-03-10] MEDS: amLODIPine BESYLATE 10 MG TABLET PO SCH (08:34)
[2019-03-10] MEDS: predniSONE 10 MG TABLET PO SCH (08:34)
[2019-03-10] MEDS: METOPROLOL SUCC 24HR ER 25 MG TAB.ER.24H. PO SCH (08:36)
[2019-03-10] MEDS: FOLIC/VIT B COMP W-C (RENAL) TABLET. PO SCH (08:36)
--- NOTE | 2019-03-10 08:40 | PDOC ---
PROGRESS NOTES Chief Complaint Chief Complaint A/P: Shortness of breath - likely 2/2 fluid overloaded, bilateral pleural effusions. Will check procalcitonin, read as bilateral infiltrates, he is high risk for HCA P Acute encephalopathy - metabolic from his hypoglycemia, most likely. Will give D50 Hypoglycemia - only received 16u Lantus, 10u lispro + 5 additional units lispro for glucose > 700 yesterday HTN urgency, he is s/p cardiac arrest in July with 2 SCOTTY. Seems to have fairly significant CHF symptoms, needs UF ESRD on HD - misses once per week fairly regularly. He is due otday will consult nephrology RUE swelling - concern for issues with his fistula, will check venous and arterial dopplers CAD with stent at [facility], LCx - taking meds, will cont Dm2 on insulin - very brittle historically, will reduce his home lantus to 8u. previously required D10 for hypoglycemia earlier this year HLD - cont statin Previous smoker - counseled Bilateral pleural effusion - recently had thoracentesis last month. This seems CHF related. will consult pulm, will cont to monitor, diurese. Was just drained last month, looks like chronic CHF FEN - ADA, renal diet PPX - heparin FULL CODE CVC for CHF exacerbation History of Present Illness History of Present Illness Mr Ochoa is a 58 year old male w/ PMHx DM, ESRD, recent cardiac arrest who presents with being confused and short of breath by his , was hypoglycemic, went to [facility] ED, was hyperglycemic in the 700s, given 10 units of lispro and transferred to [facility] for bilateral infiltrates and pleural effusions. He was recently hospitalized for dyspnea and had a PEA arrest on dialysis on 08/21/18. He is hospitalized frequently for shortness of breath and glucose control problems as well as problems with dialysis. Also notes that he has had high blood sugars averaging in the 500s since discharge, but he is very brittle and frequently has blood glucose in the 30s as well. He normally takes 16u lantus QHS and 11u lispro or regular insulin TID with meals, but variably changes the doses at home per his . Feels no nausea, no further vomiting or diarrhea. He denies CP but does SOB with laying flat. He does not appear to be in significant respiratory distress at this time other than requiring nasal cannula oxygen at 5 L whereby his sats are 98%. He was just seen 3 weeks ago for large left pleural effusion, had this drained, noted transudative. He notes he has requested at dialysis that his dry weight be changed from 81kg to 85kg recently due to him feeling his voice gets hoarse when he is diuresed to 81kg. Glucose was 30 upon transfer to [place] on 03/07/19 in the morning requiring multiple amps of d50. He also noted RUE swelling, US showed patent graft, no clots or significant stenoses. 03/08: Overnight his lantus was apparently held. Glucose very high this morning. 03/09: 2L Thoracentesis with relief. Hyperglycemia after steroids initiated, difficult to control, but had AM hypoglycemia. He has a much better appetite. Is refusing daily dialysis. Glucose has been on the higher side, required large doses of insulin last night, glucose in low 200s this morning. He has reported that he would like a portable oxygen concentrator, and after d/w pulmonology, with the frequency of his appointments, need to drive himself to dialysis and walking greater than 16,000 steps most days with his pleural effusion that is recurrent he would benefit from portable O2 to improve his current lifestyle and improve his mobility. Referred for 6 minute walk test today Vitals Vitals Vital Signs Date Time Temp Pulse Resp B/P (MAP) Pulse Ox O2 Delivery O2 Flow Rate FiO2 03/10/19 08:08 Nasal Cannula 4.0 03/10/19 07:00 98.2 70 13 149/69 (95) 98 98.2 Physical Exam General: Alert, Oriented X3, Cooperative, No acute distress Heart: Regular rate (Sr no significant ectopies), Normal S1, Normal S2, Other (2/6 ssytolic murmur to LLS border) Lungs: Crackles, Other (LEFT DULL ) Abdomen: Soft, No tenderness Extremities: No cyanosis, Other (2+ bilateral Le pitting edema) Skin: No breakdown Labs LABS Laboratory Tests Test 03/09/19 11:45 03/09/19 12:01 03/09/19 14:44 03/09/19 16:04 Glucose (Fingerstick) 24 mg/dL (70-99) 108 mg/dL (70-99) 77 mg/dL (70-99) 117 mg/dL (70-99) Test 03/09/19 20:35 03/10/19 00:05 03/10/19 03:44 03/10/19 04:15 Glucose Level 670 mg/dL (70-99) 711 mg/dL (70-99) 438 mg/dL (70-99) Glucose (Fingerstick) 405 mg/dL (70-99) Sodium Level 135 mmol/L (136-145) Potassium Level 4.7 mmol/L (3.5-5.1) Chloride Level 98 mmol/L (98-107) Carbon Dioxide Level 29 mmol/L (21-32) Anion Gap 8 (6-14) Blood Urea Nitrogen 55 mg/dL (8-26) Creatinine 5.3 mg/dL (0.7-1.3) Estimated GFR (Cockcroft-Gault) 11.3 Calcium Level 8.4 mg/dL (8.5-10.1) Phosphorus Level 4.0 mg/dL (2.6-4.7) Magnesium Level 2.2 mg/dL (1.8-2.4) Albumin 2.9 g/dL (3.4-5.0) Test 03/10/19 08:08 Glucose (Fingerstick) 214 mg/dL (70-99) Comment Review of Relevant I have reviewed the following items yesenia (where applicable) has been applied. Labs Laboratory Tests Test 03/08/19 08:52 03/08/19 10:45 03/08/19 14:50 03/08/19 15:06 Glucose (Fingerstick) 499 mg/dL (70-99) 444 mg/dL (70-99) 190 mg/dL (70-99) Potassium Level 4.6 mmol/L (3.5-5.1) Test 03/08/19 16:48 03/08/19 20:51 03/09/19 04:22 03/09/19 06:18 Glucose (Fingerstick) 247 mg/dL (70-99) 351 mg/dL (70-99) 552 mg/dL (70-99) 501 mg/dL (70-99) Test 03/09/19 06:30 03/09/19 07:42 03/09/19 11:45 03/09/19 12:01 Hemoglobin 8.7 g/dL (13.0-17.5) Sodium Level 136 mmol/L (136-145) Potassium Level 4.4 mmol/L (3.5-5.1) Chloride Level 96 mmol/L (98-107) Carbon Dioxide Level 30 mmol/L (21-32) Anion Gap 10 (6-14) Blood Urea Nitrogen 62 mg/dL (8-26) Creatinine 6.7 mg/dL (0.7-1.3) Estimated GFR (Cockcroft-Gault) 8.6 Glucose Level 536 mg/dL (70-99) Calcium Level 8.4 mg/dL (8.5-10.1) Phosphorus Level 5.3 mg/dL (2.6-4.7) Magnesium Level 2.3 mg/dL (1.8-2.4) Albumin 3.0 g/dL (3.4-5.0) Glucose (Fingerstick) 397 mg/dL (70-99) 24 mg/dL (70-99) 108 mg/dL (70-99) Test 03/09/19 14:44 03/09/19 16:04 03/09/19 20:35 03/10/19 00:05 Glucose (Fingerstick) 77 mg/dL (70-99) 117 mg/dL (70-99) Glucose Level 670 mg/dL (70-99) 711 mg/dL (70-99) Test 03/10/19 03:44 03/10/19 04:15 03/10/19 08:08 Glucose (Fingerstick) 405 mg/dL (70-99) 214 mg/dL (70-99) Sodium Level 135 mmol/L (136-145) Potassium Level 4.7 mmol/L (3.5-5.1) Chloride Level 98 mmol/L (98-107) Carbon Dioxide Level 29 mmol/L (21-32) Anion Gap 8 (6-14) Blood Urea Nitrogen 55 mg/dL (8-26) Creatinine 5.3 mg/dL (0.7-1.3) Estimated GFR (Cockcroft-Gault) 11.3 Glucose Level 438 mg/dL (70-99) Calcium Level 8.4 mg/dL (8.5-10.1) Phosphorus Level 4.0 mg/dL (2.6-4.7) Magnesium Level 2.2 mg/dL (1.8-2.4) Albumin 2.9 g/dL (3.4-5.0) Laboratory Tests Test 03/09/19 11:45 03/09/19 12:01 03/09/19 14:44 03/09/19 16:04 Glucose (Fingerstick) 24 mg/dL (70-99) 108 mg/dL (70-99) 77 mg/dL (70-99) 117 mg/dL (70-99) Test 03/09/19 20:35 03/10/19 00:05 03/10/19 03:44 03/10/19 04:15 Glucose Level 670 mg/dL (70-99) 711 mg/dL (70-99) 438 mg/dL (70-99) Glucose (Fingerstick) 405 mg/dL (70-99) Sodium Level 135 mmol/L (136-145) Potassium Level 4.7 mmol/L (3.5-5.1) Chloride Level 98 mmol/L (98-107) Carbon Dioxide Level 29 mmol/L (21-32) Anion Gap 8 (6-14) Blood Urea Nitrogen 55 mg/dL (8-26) Creatinine 5.3 mg/dL (0.7-1.3) Estimated GFR (Cockcroft-Gault) 11.3 Calcium Level 8.4 mg/dL (8.5-10.1) Phosphorus Level 4.0 mg/dL (2.6-4.7) Magnesium Level 2.2 mg/dL (1.8-2.4) Albumin 2.9 g/dL (3.4-5.0) Test 03/10/19 08:08 Glucose (Fingerstick) 214 mg/dL (70-99) Medications Current Medications Insulin Human Lispro (HumaLOG) 0-9 UNITS QIDACHS SQ ; Start 03/06/19 at 21:00; Stop 03/06/19 at 23:18; Status DC Dextrose (Dextrose 50%-Water Syringe) 12.5 gm PRN Q15MIN PRN IV SEE COMMENTS; Start 03/06/19 at 20:15; Stop 03/06/19 at 23:18; Status DC Ondansetron HCl (Zofran) 4 mg PRN Q6HRS PRN IV NAUSEA/VOMITING Last administered on 03/09/19at 08:46; Start 03/06/19 at 20:30 Acetaminophen (Tylenol) 650 mg PRN Q6HRS PRN PO MILD PAIN 1-3; Start 03/06/19 at 20:30 Morphine Sulfate (Morphine Sulfate) 2 mg PRN Q2HR PRN IV SEVERE PAIN; Start 03/06/19 at 20:30 Acetaminophen/ Hydrocodone Bitart (Lortab 5/325) 1 tab PRN Q6HRS PRN PO SEVERE PAIN; Start 03/06/19 at 20:30 Labetalol HCl (Normodyne Iv Push) 10 mg PRN Q2HR PRN IVP HYPERTENSION; Start 03/06/19 at 20:30 Magnesium Sulfate 50 ml @ 25 mls/hr PRN DAILY PRN IV for Mag < 1.7 on am labs; Start 03/06/19 at 21:30; Stop 03/08/19 at 15:09; Status DC Amlodipine Besylate (Norvasc) 10 mg DAILY PO Last administered on 03/08/19at 07:34; Start 03/07/19 at 09:00 Calcium Acetate (Phoslo) 1,334 mg TIDWMEALS PO Last administered on 03/09/19at 16:24; Start 03/07/19 at 08:00 Calcium Carbonate/ Glycine (Tums) 500 mg PRN Q2HRS PRN PO INDIGESTION; Start 03/06/19 at 23:00 Ferrous Sulfate (Feosol) 325 mg DAILYWBKFT PO Last administered on 03/09/19at 09:39; Start 03/07/19 at 08:00 Vitamin B Complex/ Vitamin C (Madai-Sean) 1 tab DAILY PO Last administered on 03/09/19at 09:43; Start 03/07/19 at 09:00 Furosemide (Lasix) 80 mg QODAY PO Last administered on 03/08/19at 07:35; Start 03/08/19 at 09:00 Hydralazine HCl (Apresoline) 10 mg TID PO Last administered on 03/09/19at 20:29; Start 03/07/19 at 09:00 Insulin Glargine (Lantus) 15 units QHS SQ Last administered on 03/06/19at 23:53; Start 03/06/19 at 23:30; Stop 03/07/19 at 05:44; Status DC Insulin Human Lispro (HumaLOG) 0-9 UNITS QIDACHS SQ Last administered on 03/08/19 21:03; Start 03/07/19 at 00:00; Stop 03/09/19 at 06:42; Status DC Dextrose (Dextrose 50%-Water Syringe) 12.5 gm PRN Q15MIN PRN IV SEE COMMENTS Last administered on 03/09/19at 12:00; Start 03/06/19 at 23:00 Levothyroxine Sodium (Synthroid) 300 mcg DAILY06 PO Last administered on 03/10/19 07:07; Start 03/07/19 at 06:00 Albuterol/ Ipratropium (Duoneb) 3 ml RTQID NEB Last administered on 03/10/19 08:08; Start 03/07/19 at 08:00 Budesonide (Pulmicort) 0.5 mg RTBID NEB Last administered on 03/10/19 08:08; Start 03/07/19 at 08:00 Lisinopril (Prinivil) 20 mg DAILY PO Last administered on 03/08/19 07:36; Start 03/07/19 at 09:00 Metoprolol Succinate (Toprol Xl) 12.5 mg DAILY PO Last administered on 03/08/19 07:35; Start 03/07/19 at 09:00 Fish Oil (Fish Oil) 1,000 mg DAILY PO Last administered on 03/09/19 09:41; Start 03/07/19 at 09:00 Pantoprazole Sodium (Protonix) 40 mg DAILYAC PO Last administered on 03/09/19 09:38; Start 03/07/19 at 07:30 Atorvastatin Calcium (Lipitor) 5 mg QHS PO Last administered on 03/09/19 20:29; Start 03/07/19 at 21:00 Tramadol HCl (Ultram) 50 mg PRN Q6HRS PRN PO MODERATE PAIN; Start 03/06/19 at 23:00 Trazodone HCl (Desyrel) 100 mg PRN QHS PRN PO INSOMNIA Last administered on 03/09/19 00:36; Start 03/06/19 at 23:00 Insulin Human Lispro (HumaLOG) 6 units TIDWMEALS SQ ; Start 03/07/19 at 08:00; Stop 03/07/19 at 08:00; Status DC Albuterol Sulfate (Ventolin Neb Soln) 2.5 mg PRN Q4HRS PRN NEB SHORTNESS OF BREATH Last administered on 03/07/19at 01:45; Start 03/07/19 at 01:30 Insulin Glargine (Lantus) 12 units QHS SQ ; Start 03/07/19 at 21:00; Stop 03/08/19 at 08:11; Status DC Insulin Human Lispro (HumaLOG) 3 units TIDAC SQ Last administered on 03/09/19at 08:09; Start 03/07/19 at 07:30 Glucagon (Glucagen) 1 mg 1X ONCE IV Last administered on 03/07/19at 12:01; Start 03/07/19 at 12:00; Stop 03/07/19 at 12:01; Status DC Prednisone (Prednisone) 30 mg DAILY PO Last administered on 03/09/19at 09:42; Start 03/07/19 at 15:30 Ceftriaxone Sodium (Rocephin) 1 gm Q24H IVP ; Start 03/07/19 at 15:00; Stop 03/07/19 at 17:34; Status DC Hydralazine HCl (Apresoline) 25 mg 1X ONCE PO Last administered on 03/07/19at 15:14; Start 03/07/19 at 15:15; Stop 03/07/19 at 15:16; Status DC Lactobacillus Rhamnosus (Culturelle) 1 cap BID PO Last administered on 03/09/19at 20:29; Start 03/07/19 at 21:00 Sodium Chloride 1,000 ml @ 1,000 mls/hr Q1H PRN IV hypotension; Start 03/07/19 at 16:47; Stop 03/07/19 at 22:46; Status DC Diphenhydramine HCl (Benadryl) 25 mg 1X PRN PRN IV ITCHING; Start 03/07/19 at 17:00; Stop 03/08/19 at 16:59; Status DC Diphenhydramine HCl (Benadryl) 25 mg 1X PRN PRN IV ITCHING; Start 03/07/19 at 17:00; Stop 03/08/19 at 16:59; Status DC Sodium Chloride 1,000 ml @ 400 mls/hr Q2H30M PRN IV PATENCY; Start 03/07/19 at 16:47; Stop 03/08/19 at 04:46; Status DC Info (PHARMACY MONITORING -- do not chart) 1 each PRN DAILY PRN MC SEE COMMENTS ; Start 03/07/19 at 17:00; Stop 03/09/19 at 09:51; Status DC Ceftriaxone Sodium (Rocephin) 1 gm Q24H IVP Last administered on 03/09/19at 21:16; Start 03/07/19 at 21:00 Insulin Human Lispro (HumaLOG) 15 units 1X ONCE SQ Last administered on 03/08/19at 07:43; Start 03/08/19 at 07:30; Stop 03/08/19 at 07:31; Status DC Insulin Glargine (Lantus) 8 units QHS SQ Last administered on 03/08/19at 21:03; Start 03/08/19 at 21:00; Stop 03/09/19 at 20:50; Status DC Insulin Glargine (Lantus) 4 units 1X ONCE SQ Last administered on 03/08/19at 09:12; Start 03/08/19 at 09:00; Stop 03/08/19 at 09:03; Status DC Insulin Human Lispro (HumaLOG) 3 units 1X ONCE SQ Last administered on 03/08/19at 09:12; Start 03/08/19 at 09:00; Stop 03/08/19 at 09:03; Status DC Magnesium Sulfate 50 ml @ 25 mls/hr PRN DAILY PRN IV for Mag < 1.7 on am labs; Start 03/08/19 at 09:30 Aspirin (Ecotrin) 81 mg DAILYWBKFT PO Last administered on 03/09/19at 09:39; Start 03/08/19 at 12:00 Insulin Human Lispro (HumaLOG) 15 units 1X ONCE SQ Last administered on 03/09/19at 05:16; Start 03/09/19 at 05:15; Stop 03/09/19 at 05:20; Status DC Insulin Human Lispro (HumaLOG) 0-9 UNITS Q4HRS SQ Last administered on 03/10/19at 03:50; Start 03/09/19 at 08:00 Insulin Human Lispro (HumaLOG) 10 units 1X ONCE SQ Last administered on 03/09/19at 06:51; Start 03/09/19 at 06:45; Stop 03/09/19 at 06:46; Status DC Ondansetron HCl (Zofran) 4 mg STK-MED ONCE .ROUTE ; Start 03/09/19 at 08:15; Stop 03/09/19 at 08:16; Status DC Sodium Chloride 1,000 ml @ 1,000 mls/hr Q1H PRN IV hypotension; Start 03/09/19 at 09:47; Stop 03/09/19 at 15:46; Status DC Sodium Chloride 1,000 ml @ 400 mls/hr Q2H30M PRN IV PATENCY; Start 03/09/19 at 09:47; Stop 03/09/19 at 21:46; Status DC Info (PHARMACY MONITORING -- do not chart) 1 each PRN DAILY PRN MC SEE COMMENTS; Start 03/09/19 at 10:00; Stop 03/09/19 at 10:00; Status DC Info (PHARMACY MONITORING -- do not chart) 1 each PRN DAILY PRN MC SEE COMMENTS; Start 03/09/19 at 10:00 Clopidogrel Bisulfate (Plavix) 75 mg DAILYWBKFT PO Last administered on 03/09/19at 16:24; Start 03/09/19 at 12:00 Insulin Glargine (Lantus) 12 units QHS SQ Last administered on 03/09/19at 21:15; Start 03/09/19 at 21:00 Active Scripts Active Amox Tr-K Clv 500-125 Mg Tab (Amoxicillin/Potassium Clav) 1 Each Tablet 1 Tab PO DAILY Hydralazine Hcl 10 Mg Tablet 10 Mg PO TID MDD 1 Amlodipine Besylate 10 Mg Tablet 10 Mg PO DAILY MDD 1 Lisinopril 40 Mg Tablet 20 Mg PO DAILY MDD 1 [Pantoprazole] 40 MG Tablet.dr 40 Mg PO DAILYAC 30 Days Trazodone Hcl 100 Mg Tablet 100 Mg PO PRN QHS PRN 30 Days Lantus Solostar (Insulin Glargine,Hum.rec.anlog) 100 Unit/1 Ml Insuln.pen 15 Units SQ QHS 30 Days Budesonide 0.5 Mg/2 Ml Ampul.neb 0.5 Mg NEB RTBID 30 Days Aspirin 81 Mg Tab.chew 81 Mg PO DAILYWBKFT 30 Days Carvedilol (Carvedilol) 3.125 Mg Tablet 3.125 Mg PO BIDWMEALS 30 Days Duoneb 0.5-3(2.5) Mg/3 Ml (Albuterol/Ipratropium) 3 Ml Ampul.neb 3 Ml NEB RTQID 30 Days Brilinta (Ticagrelor) 90 Mg Tablet 90 Mg PO BID 30 Days Vitamin D2 (Ergocalciferol (Vitamin D2)) 50,000 Unit Capsule 50,000 Unit PO WEEKLY Reported Furosemide 80 Mg Tablet 80 Mg PO BID [place]gin 3 Fish Oil Softgel ([place]-3 Fatty Acids/Fish Oil) 1 Each Capsule.dr 1 Each PO DAILY Toprol Xl (Metoprolol Succinate) 25 Mg Tab.er.24h 0.5 Tab PO DAILY Lasix (Furosemide) 80 Mg Tablet 80 Mg PO DAILY Calcium Acetate 667 Mg Tablet 667 Mg PO TIDWMEALS Tylenol (Acetaminophen) 325 Mg Tablet 650 Mg PO PRN Q6HRS Humalog (Insulin Lispro) 100 Unit/1 Ml Cartridge 6 Unit SQ TIDBFRMEAL Ferrous Sulfate 325 Mg Tablet 1 Tab PO DAILY Levothyroxine Sodium 175 Mcg Tablet 1 Tab PO DAILY Reglan (Metoclopramide Hcl) 10 Mg Tablet 5 Mg PO BIDAC Dialyvite Tablet (Folic Acid/Vitamin B Comp W-C) 1 Each Tablet 1 Each PO Vitals/I & O Vital Sign - Last 24 Hours 03/09/19 03/09/19 03/09/19 03/09/19 09:40 09:42 09:43 11:00 Temp 98.1 98.1 Pulse 68 67 68 65 Resp 20 B/P (MAP) 131/57 124/58 124/58 130/62 (84) Pulse Ox 95 O2 Delivery Nasal Cannula O2 Flow Rate 5.0 03/09/19 03/09/19 03/09/19 03/09/19 15:00 16:16 16:24 19:00 Temp 97.9 98.5 97.9 98.5 Pulse 70 70 77 Resp 18 16 B/P (MAP) 152/66 (94) 152/66 158/68 (98) Pulse Ox 99 100 O2 Delivery Room Air Nasal Cannula Nasal Cannula O2 Flow Rate 3.0 5.0 03/09/19 03/09/19 03/09/19 03/09/19 19:40 19:42 19:45 20:29 Pulse 77 B/P (MAP) 158/68 Pulse Ox 95 95 O2 Delivery Nasal Cannula Nasal Cannula Nasal Cannula O2 Flow Rate 4.0 4.0 4.0 03/09/19 03/10/19 03/10/19 03/10/19 23:30 03:50 07:00 08:08 Temp 100.2 98.7 98.2 100.2 98.7 98.2 Pulse 88 70 70 Resp 18 18 13 B/P (MAP) 172/71 (104) 152/67 (95) 149/69 (95) Pulse Ox 98 100 98 O2 Delivery Nasal Cannula Nasal Cannula Nasal Cannula Nasal Cannula O2 Flow Rate 5.0 4.0 5.0 4.0 Intake and Output 03/09/19 03/09/19 03/10/19 15:00 23:00 07:00 Intake Total 600 ml 150 ml Output Total 2000 ml Balance -2000 ml 600 ml 150 ml JIN ROBLES MD Mar 10, 2019 08:40
[2019-03-10] MEDS ORDERED: ATOR10TA60 PO (10:21)
[2019-03-10] MEDS ORDERED: Pantoprazole PO (10:21)
[2019-03-10] MEDS ORDERED: AMOX1TAB10 PO (10:21)
[2019-03-10] MEDS ORDERED: LACT1CAP19 PO (10:21)
--- NOTE | 2019-03-10 10:26 | PDOC3 ---
Discharge Summary Visit Information Date of Admission: Mar 06, 2019 Date of Discharge: Mar 10, 2019 Admitting Diagnosis: Left pleural effusion Final Diagnosis Left pleural effusion Brief Hospital Course Allergies Allergies Coded Allergies Type Severity Reaction Last Updated Verified No Known Drug Allergies 02/16/19 No Vital Signs Vital Signs Date Time Temp Pulse Resp B/P (MAP) Pulse Ox O2 Delivery O2 Flow Rate FiO2 03/10/19 08:36 70 149/69 03/10/19 08:08 Nasal Cannula 4.0 03/10/19 07:00 98.2 13 98 98.2 Lab Results Laboratory Tests Test 03/08/19 10:45 03/08/19 14:50 03/08/19 15:06 03/08/19 16:48 Glucose (Fingerstick) 444 mg/dL (70-99) 190 mg/dL (70-99) 247 mg/dL (70-99) Potassium Level 4.6 mmol/L (3.5-5.1) Test 03/08/19 20:51 03/09/19 04:22 03/09/19 06:18 03/09/19 06:30 Glucose (Fingerstick) 351 mg/dL (70-99) 552 mg/dL (70-99) 501 mg/dL (70-99) Hemoglobin 8.7 g/dL (13.0-17.5) Sodium Level 136 mmol/L (136-145) Potassium Level 4.4 mmol/L (3.5-5.1) Chloride Level 96 mmol/L (98-107) Carbon Dioxide Level 30 mmol/L (21-32) Anion Gap 10 (6-14) Blood Urea Nitrogen 62 mg/dL (8-26) Creatinine 6.7 mg/dL (0.7-1.3) Estimated GFR (Cockcroft-Gault) 8.6 Glucose Level 536 mg/dL (70-99) Calcium Level 8.4 mg/dL (8.5-10.1) Phosphorus Level 5.3 mg/dL (2.6-4.7) Magnesium Level 2.3 mg/dL (1.8-2.4) Albumin 3.0 g/dL (3.4-5.0) Test 03/09/19 07:42 03/09/19 11:45 03/09/19 12:01 03/09/19 14:44 Glucose (Fingerstick) 397 mg/dL (70-99) 24 mg/dL (70-99) 108 mg/dL (70-99) 77 mg/dL (70-99) Test 03/09/19 16:04 03/09/19 20:35 03/10/19 00:05 03/10/19 03:44 Glucose (Fingerstick) 117 mg/dL (70-99) 405 mg/dL (70-99) Glucose Level 670 mg/dL (70-99) 711 mg/dL (70-99) Test 03/10/19 04:15 03/10/19 08:08 Sodium Level 135 mmol/L (136-145) Potassium Level 4.7 mmol/L (3.5-5.1) Chloride Level 98 mmol/L (98-107) Carbon Dioxide Level 29 mmol/L (21-32) Anion Gap 8 (6-14) Blood Urea Nitrogen 55 mg/dL (8-26) Creatinine 5.3 mg/dL (0.7-1.3) Estimated GFR (Cockcroft-Gault) 11.3 Glucose Level 438 mg/dL (70-99) Calcium Level 8.4 mg/dL (8.5-10.1) Phosphorus Level 4.0 mg/dL (2.6-4.7) Magnesium Level 2.2 mg/dL (1.8-2.4) Albumin 2.9 g/dL (3.4-5.0) Glucose (Fingerstick) 214 mg/dL (70-99) Laboratory Tests Test 03/09/19 11:45 03/09/19 12:01 03/09/19 14:44 03/09/19 16:04 Glucose (Fingerstick) 24 mg/dL (70-99) 108 mg/dL (70-99) 77 mg/dL (70-99) 117 mg/dL (70-99) Test 03/09/19 20:35 03/10/19 00:05 03/10/19 03:44 03/10/19 04:15 Glucose Level 670 mg/dL (70-99) 711 mg/dL (70-99) 438 mg/dL (70-99) Glucose (Fingerstick) 405 mg/dL (70-99) Sodium Level 135 mmol/L (136-145) Potassium Level 4.7 mmol/L (3.5-5.1) Chloride Level 98 mmol/L (98-107) Carbon Dioxide Level 29 mmol/L (21-32) Anion Gap 8 (6-14) Blood Urea Nitrogen 55 mg/dL (8-26) Creatinine 5.3 mg/dL (0.7-1.3) Estimated GFR (Cockcroft-Gault) 11.3 Calcium Level 8.4 mg/dL (8.5-10.1) Phosphorus Level 4.0 mg/dL (2.6-4.7) Magnesium Level 2.2 mg/dL (1.8-2.4) Albumin 2.9 g/dL (3.4-5.0) Test 03/10/19 08:08 Glucose (Fingerstick) 214 mg/dL (70-99) Brief Hospital Course Mr Ochoa is a 58 year old male w/ PMHx DM, ESRD, recent cardiac arrest who presents with being confused and short of breath by his , was hypoglycemic, went to [place] ED, was hyperglycemic in the 700s, given 10 units of lispro and transferred to [facility] for bilateral infiltrates and pleural effusions. He was recently hospitalized for dyspnea and had a PEA arrest on dialysis on 08/21/18. He is hospitalized frequently for shortness of breath and glucose control problems as well as problems with dialysis. Also notes that he has had high blood sugars averaging in the 500s since discharge, but he is very brittle and frequently has blood glucose in the 30s as well. He normally takes 16u lantus QHS and 11u lispro or regular insulin TID with meals, but variably changes the doses at home per his . Feels no nausea, no further vomiting or diarrhea. He denies CP but does SOB with laying flat. He does not appear to be in significant respiratory distress at this time other than requiring nasal cannula oxygen at 5 L whereby his sats are 98%. He was just seen 3 weeks ago for large left pleural effusion, had this drained, noted transudative. He notes he has requested at dialysis that his dry weight be changed from 81kg to 85kg recently due to him feeling his voice gets hoarse when he is diuresed to 81kg. Glucose was 30 upon transfer to [facility] on 03/07/19 in the morning requiring multiple amps of d50. He also noted RUE swelling, US showed patent graft, no clots or significant stenoses. 03/08: Overnight his lantus was apparently held. Glucose very high this morning. 03/09: 2L Thoracentesis with relief. Hyperglycemia after steroids initiated, difficult to control, but had AM hypoglycemia. He has reported that he would like a portable oxygen concentrator, and after d/w pulmonology, with the frequency of his appointments, need to drive himself to dialysis and walking greater than 16,000 steps most days with his pleural effusion that is recurrent he would benefit from portable O2 to improve his cu rrent lifestyle and improve his mobility. Referred for 6 minute walk test for this. A/P: Shortness of breath - likely 2/2 fluid overloaded, bilateral pleural effusions. Will check procalcitonin, read as bilateral infiltrates, he is high risk for HCAP - augmentin 5 days post procedure Acute encephalopathy - metabolic from his hypoglycemia, most likely. Will give D50 Hypoglycemia - only received 16u Lantus, 10u lispro + 5 additional units lispro for glucose elevations. He does not wish for endo f/u HTN urgency, he is s/p cardiac arrest in July with 2 SCOTTY. Seems to have fairly significant CHF symptoms, needs UF ESRD on HD - misses once per week fairly regularly. He is due otday will consult nephrology RUE swelling - concern for issues with his fistula, will check venous and arterial dopplers CAD with stent at [facility], LCx - taking meds, will cont Dm2 on insulin - very brittle historically, will reduce his home lantus to 8u. previously required D10 for hypoglycemia earlier this year HLD - cont statin Previous smoker - counseled Bilateral pleural effusion - recently had thoracentesis last month. This seems CHF related. will consult pulm, will cont to monitor, diurese. Was just drained last month, looks like chronic CHF, 2 additional liters drained this visit with great relief Greater than 30 minutes spent on d/c Discharge Information Condition at Discharge: Improved Follow Up: Weeks (1) Disposition/Orders: D/C to Home Scheduled Acetaminophen (Tylenol) 325 Mg Tablet, 650 MG PO PRN Q6HRS for mild pain, (Reported) Entered as Reported by: VICKY PATE on 10/02/18 211 Last Action: Reviewed on 03/06/192124 by Fabiana Ji Amlodipine Besylate (Amlodipine Besylate) 10 Mg Tablet, 10 MG PO DAILY for htn MDD 1, #30 Prescribed by: KRYSTAL JASSO on 10/04/18 1618 Last Action: Reviewed on 03/06/192124 by Fabiana Ji Amoxicillin/Potassium Clav (Amox Tr-K Clv 500-125 Mg Tab) 1 Each Tablet, 1 TAB PO DAILY for COPD exacerbation for 5 Days, #5 Prescribed by: JIN ROBLES MD on 03/10/19 1021 Aspirin (Aspirin) 81 Mg Tab.chew, 81 MG PO DAILYWBKFT for heart health for 30 Days, #30 Prescribed by: PABLO SHERMAN MD on 08/29/18 1346 Atorvastatin Calcium (Atorvastatin Calcium) 10 Mg Tablet, 5 MG PO QHS for HLD for 30 Days, #15 Ref 11 Prescribed by: JIN ROBLES MD on 03/10/19 1021 Budesonide (Budesonide) 0.5 Mg/2 Ml Ampul.neb, 0.5 MG NEB RTBID for copd for 30 Days, #60 Prescribed by: PABLO SHERMAN MD on 08/29/18 1346 Last Action: Reviewed on 03/06/192124 by Fabiana Ji Calcium Acetate (Calcium Acetate) 667 Mg Tablet, 667 MG PO TIDWMEALS for DIALYSIS PATIENTS, (Reported) Entered as Reported by: KWABENA RODRIGUEZ on 11/07/18 0315 Last Action: Reviewed on 03/06/192124 by Fabiana Ji Ergocalciferol (Vitamin D2) (Vitamin D2) 50,000 Unit Capsule, 50,000 UNIT PO WEEKLY, #4 Prescribed by: JANNY ORELLANA MD on 04/02/18 1334 Ferrous Sulfate (Ferrous Sulfate) 325 Mg Tablet, 1 TAB PO DAILY for Dialysis, #30 Ref 3 (Reported) Entered as Reported by: MYNOR SIMON on 09/15/18 1159 Last Action: Reviewed on 03/06/192124 by Fabiana Ji Furosemide (Furosemide) 80 Mg Tablet, 80 MG PO BID for diuretic, CHF, (Reported) Entered as Reported by: ESTEFANY AIKEN on 02/18/19 1251 Hydralazine Hcl (Hydralazine Hcl) 10 Mg Tablet, 10 MG PO TID for htn MDD 1, #90 Prescribed by: KRYSTAL JASSO on 10/04/18 1618 Last Action: Reviewed on 03/06/192124 by Fabiana Ji Insulin Glargine,Hum.rec.anlog (Lantus Solostar) 100 Unit/1 Ml Insuln.pen, 15 UNITS SQ QHS for DM for 30 Days Prescribed by: JIN ROBLES MD on 09/09/18 1307 Last Action: Reviewed on 03/06/192124 by Fabiana Ji Insulin Lispro (Humalog) 100 Unit/1 Ml Cartridge, 6 UNIT SQ TIDBFRMEAL for DM, (Reported) Entered as Reported by: VICKY PATE on 10/02/18 1053 Last Action: Reviewed on 03/06/192124 by Fabiana Ji Ipratropium/Albuterol Sulfate (Duoneb 0.5-3(2.5) Mg/3 Ml) 3 Ml Ampul.neb, 3 ML NEB RTQID for copd for 30 Days, #120 Prescribed by: PABLO SHERMAN MD on 08/29/18 1346 Last Action: Reviewed on 03/06/192124 by Fabiana Ji Lactobacillus Rhamnosus Gg (Culturelle) 1 Each Cap.sprink, 1 CAP PO BID for COPD for 5 Days, #10 Prescribed by: JIN ROBLES MD on 03/10/19 1021 Levothyroxine Sodium (Levothyroxine Sodium) 175 Mcg Tablet, 1 TAB PO DAILY for hypothyroidism, #30 Ref 5 (Reported) Entered as Reported by: MYNOR SIMON on 09/15/18 1159 Lisinopril (Lisinopril) 40 Mg Tablet, 20 MG PO DAILY for htn MDD 1, #30 Prescribed by: KRYSTAL JASSO on 10/04/18 1618 Last Action: Reviewed on 03/06/192124 by Fabiana Ji Metoclopramide Hcl (Reglan) 10 Mg Tablet, 5 MG PO BIDAC for GERD, #60 Ref 0 (Reported) Entered as Reported by: MYNOR SIMON on 09/15/18 1159 Metoprolol Succinate (Toprol Xl) 25 Mg Tab.er.24h, 0.5 TAB PO DAILY for HTN, #30 Ref 5 (Reported) Entered as Reported by: KWABENA RODRIGUEZ on 11/07/18314 Last Action: Reviewed on 03/06/192124 by Fabiana Ji Winfield-3 Fatty Acids/Fish Oil (Winfield 3 Fish Oil Softgel) 1 Each Capsule.dr, 1 EACH PO DAILY for supplement, (Reported) Entered as Reported by: KWABENA RODRIGUEZ on 11/07/18314 Last Action: Reviewed on 03/06/192124 by Fabiana Ji Ticagrelor (Brilinta) 90 Mg Tablet, 90 MG PO BID for heart stents for 30 Days, #60 Prescribed by: PABLO SHERMAN MD on 08/29/18 1346 [Pantoprazole] 40 MG TABLET.DR, 40 MG PO DAILYAC for 30 Days, #30 Ref 2 Prescribed by: JIN ROBLES MD on 09/09/18 1307 Last Action: Reviewed on 03/06/192124 by Fabiana Ji [Pantoprazole] 40 MG TABLET.DR, 40 MG PO DAILYAC for GERD for 30 Days, #30 Prescribed by: JIN ROBLES MD on 03/10/19 1021 Scheduled PRN Trazodone Hcl (Trazodone Hcl) 100 Mg Tablet, 100 MG PO PRN QHS PRN for INSOMNIA for 30 Days, #30 Ref 1 Prescribed by: JIN ROBLES MD on 09/09/18 1307 Last Action: Reviewed on 03/06/192124 by Fabiana Ji Miscellaneous Medications Folic Acid/Vitamin B Comp W-C (Dialyvite Tablet) 1 Each Tablet, 1 EACH PO, (Reported) Entered as Reported by: JOHNATHON HINTON on 03/28/18 1241 Last Action: Reviewed on 03/06/192124 by Fabiana Ji Discontinued Medications Carvedilol (Carvedilol ) 3.125 Mg Tablet, 3.125 MG PO BIDWMEALS for heart for 30 Days, #60 Prescribed by: PABLO SHERMAN MD on 08/29/18 1346 Furosemide (Lasix) 80 Mg Tablet, 80 MG PO DAILY for fluid retention, (Reported) Entered as Reported by: KWABENA RODRIGUEZ on 11/07/18314 Last Action: Reviewed on 03/06/192124 by JIN Duenas MD Mar 10, 2019 10:26
[2019-03-10 11:00] VITALS: BP 137/66
[2019-03-10] MEDS ORDERED: INSULIN LISPRO 300 UNITS/3 ML INSULN.PEN. SQ SCH (11:30)
== END 2019-03-10 13:30 | disposition home or self-care (01) | DRG 637 ==
LOC: 2 SOUTH 18:50
PROVIDERS: ADMIT Internal Medicine; ATTEND Internal Medicine
PROC: 5A1D70Z Performance of Urinary Filtration, Intermittent, Less than 6 Hours Per Day (ICD-10-PCS; 2019-03-07)
PROC: 0W9B3ZZ Drainage of Left Pleural Cavity, Percutaneous Approach (ICD-10-PCS; principal; 2019-03-09)
PROC: 5A1D70Z Performance of Urinary Filtration, Intermittent, Less than 6 Hours Per Day (ICD-10-PCS; 2019-03-09)
DX: E11.649 Type 2 diabetes mellitus with hypoglycemia without coma (principal); J96.00 Acute respiratory failure, unspecified whether with hypoxia or hypercapnia; G93.41 Metabolic encephalopathy; I50.33 Acute on chronic diastolic (congestive) heart failure; I13.2 Hypertensive heart and chronic kidney disease with heart failure and with stage 5 chronic kidney disease, or end stage renal disease; J90 Pleural effusion, not elsewhere classified; E46 Unspecified protein-calorie malnutrition; J98.11 Atelectasis; E11.65 Type 2 diabetes mellitus with hyperglycemia; I16.0 Hypertensive urgency; N18.6 End stage renal disease; D63.8 Anemia in other chronic diseases classified elsewhere; E03.9 Hypothyroidism, unspecified; E11.22 Type 2 diabetes mellitus with diabetic chronic kidney disease; E78.5 Hyperlipidemia, unspecified; I48.91 Unspecified atrial fibrillation; G89.4 Chronic pain syndrome; I25.10 Atherosclerotic heart disease of native coronary artery without angina pectoris; I27.20 Pulmonary hypertension, unspecified; F17.210 Nicotine dependence, cigarettes, uncomplicated; E21.3 Hyperparathyroidism, unspecified; F32.9 Major depressive disorder, single episode, unspecified; M19.90 Unspecified osteoarthritis, unspecified site; J44.9 Chronic obstructive pulmonary disease, unspecified; K21.9 Gastro-esophageal reflux disease without esophagitis; Z79.4 Long term (current) use of insulin; Z82.49 Family history of ischemic heart disease and other diseases of the circulatory system; Z86.73 Personal history of transient ischemic attack (TIA), and cerebral infarction without residual deficits; Z91.19 Patient's noncompliance with other medical treatment and regimen; Z95.5 Presence of coronary angioplasty implant and graft; Z99.2 Dependence on renal dialysis; Z86.74 Personal history of sudden cardiac arrest; Z83.3 Family history of diabetes mellitus; Z87.01 Personal history of pneumonia (recurrent)
CPT/HCPCS: 32555; 36415; 71046; 71250; 80061; 80069; 82947; 82962; 83735; 84132; 84145; 84443; 85018; 85025; 85610; 93306; 93931; 93971; 94618; 94640; 94760; J0696; J1610; J1815; J2405; J7042; J7512; J7613; J7620; J7626

== ENCOUNTER 2019-07-06 09:44 | Observation (INO) | payer MEDICARE ==
[~2019-07-06] VITALS: Ht 175.3 cm; Wt 86.6 kg
[~2019-07-06 09:44] MED LIST changes: +ATOR10TA60 PO; +AZIT250T PO; +CLOP75TA PO; +LACT1CAP19 PO; +LEVO300T4 PO
[2019-07-06] MEDS ORDERED: ASPIRIN CHEWABLE 81 MG TABLET. PO ONE (10:00)
--- NOTE | 2019-07-06 10:00 | PHYS DOC ---
Past Medical History Past Medical History: CAD, COPD, Diabetes-Type I, Heart Disease, Hypertension, Renal Failure Additional Past Medical Histor: CARDIAC ARREST DURING DIALYSIS 09/12 Additional Past Surgical Histo: AV SHUNT RUE, CARDIAC STENT Alcohol Use: Rarely Drug Use: None The HEART Score for CP Pts HEART Score for Chest Pain: HEART Score for Chest Pain Response (Comments) Value History Moderately Suspicious 1 ECG Nonspecific Repolarizatio 1 Age >45 - < 65 1 Risk Factors >3 Risk Factors or Hx CAD 2 Troponin < Normal Limit 0 Total 5 Risk Factors: Risk Factors: DM, Current or recent (<one month) smoker, HTN, HLP, family history of CAD, obesity. Risk Scores: Score 0 - 3: 2.5% MACE over next 6 weeks - Discharge Home Score 4 - 6: 20.3% MACE over next 6 weeks - Admit for Clinical Observation Score 7 - 10: 72.7% MACE over next 6 weeks - Early Invasive Strategies Adult General Chief Complaint Chief Complaint: CHEST PAIN HPI HPI 59-year-old male with history of hemodialysis, chronic respiratory failure presents to the emergency Department with complaints of chest pain. Patient states he was on dialysis this morning roughly 30 minutes prior to his session ending developed chest pain, center aspect of his chest, dull. Patient denies any radiation, no shortness of breath or nausea or vomiting. EMS was called. Patient received one sublingual nitroglycerin with relief of pain. Patient denies any pain currently. Review of Systems Review of Systems Constitutional: Denies fever or chills [] Respiratory: Denies shortness of breath [] Cardiovascular: No additional information not addressed in HPI [] GI: Denies abdominal pain, nausea, vomiting, bloody stools or diarrhea [] : Denies dysuria or hematuria [] Musculoskeletal: Denies back pain or joint pain [] Integument: Denies rash or skin lesions [] Neurologic: Denies headache, focal weakness All other systems were reviewed and found to be within normal limits, except as documented in this note. Current Medications Current Medications Current Medications Medications (Trade) Dose Ordered Sig/Celi Start Time Stop Time Status Last Admin Dose Admin Aspirin (Children'S Aspirin) 324 mg 1X ONCE 07/06/19 10:00 07/06/19 10:07 DC Allergies Allergies Allergies Coded Allergies Type Severity Reaction Last Updated Verified No Known Drug Allergies 02/16/19 No Physical Exam Physical Exam Constitutional: Well developed, well nourished, no acute distress, non-toxic appearance. [] HENT: Normocephalic, atraumatic, bilateral external ears normal, oropharynx moist, no oral exudates, nose normal. [] Eyes: PERRLA, EOMI, conjunctiva normal, no discharge. [] Neck: Normal range of motion, no tenderness, supple, no stridor. [] Cardiovascular:Heart rate regular rhythm, no murmur [] Lungs & Thorax: Bilateral breath sounds clear to auscultation [] Abdomen: Bowel sounds normal, soft, no tenderness, no masses, no pulsatile masses. [] Skin: Warm, dry, no erythema, no rash. [] Back: No tenderness, no CVA tenderness. [] Extremities: No tenderness, no cyanosis, no clubbing, ROM intact, no edema. [] Neurologic: Alert and oriented X 3, normal motor function, normal sensory function, no focal deficits noted. [] Psychologic: Affect normal, judgement normal, mood normal. [] Current Patient Data Vital Signs Vital Signs Date Time Temp Pulse Resp B/P (MAP) Pulse Ox O2 Delivery O2 Flow Rate FiO2 07/06/19 09:44 97.3 67 20 174/75 (108) 95 Nasal Cannula 5.0 97.3 Lab Values Laboratory Tests Test 07/06/19 10:00 White Blood Count 4.6 x10^3/uL (4.0-11.0) Red Blood Count 3.18 x10^6/uL (4.30-5.70) L Hemoglobin 9.7 g/dL (13.0-17.5) L Hematocrit 29.0 % (39.0-53.0) L Mean Corpuscular Volume 91 fL (79-100) Mean Corpuscular Hemoglobin 30 pg (25-35) Mean Corpuscular Hemoglobin Concent 33 g/dL (31-37) Red Cell Distribution Width 18.2 % (11.5-14.5) H Platelet Count 146 x10^3/uL (140-400) Neutrophils (%) (Auto) 66 % (31-73) Lymphocytes (%) (Auto) 19 % (24-48) L Monocytes (%) (Auto) 6 % (0-9) Eosinophils (%) (Auto) 7 % (0-3) H Basophils (%) (Auto) 2 % (0-3) Neutrophils # (Auto) 3.0 x10^3/uL (1.8-7.7) Lymphocytes # (Auto) 0.9 x10^3/uL (1.0-4.8) L Monocytes # (Auto) 0.3 x10^3/uL (0.0-1.1) Eosinophils # (Auto) 0.3 x10^3/uL (0.0-0.7) Basophils # (Auto) 0.1 x10^3/uL (0.0-0.2) Sodium Level 143 mmol/L (136-145) Potassium Level 3.7 mmol/L (3.5-5.1) Chloride Level 99 mmol/L (98-107) Carbon Dioxide Level 34 mmol/L (21-32) H Anion Gap 10 (6-14) Blood Urea Nitrogen 14 mg/dL (8-26) Creatinine 2.8 mg/dL (0.7-1.3) H Estimated GFR (Cockcroft-Gault) 23.5 BUN/Creatinine Ratio 5 (6-20) L Glucose Level 180 mg/dL (70-99) H Calcium Level 8.8 mg/dL (8.5-10.1) Total Bilirubin 0.7 mg/dL (0.2-1.0) Aspartate Amino Transferase (AST) 17 U/L (15-37) Alanine Aminotransferase (ALT) 10 U/L (16-63) L Alkaline Phosphatase 152 U/L (46-116) H Troponin I Quantitative < 0.017 ng/mL (0.000-0.055) Total Protein 6.7 g/dL (6.4-8.2) Albumin 3.3 g/dL (3.4-5.0) L Albumin/Globulin Ratio 1.0 (1.0-1.7) Laboratory Tests 07/06/19 10:00 Laboratory Tests 07/06/19 10:00 EKG EKG EKG reviewed, normal sinus rhythm, right bundle-branch block. No evidence of acute ST elevation MO.[] Interpretation Time: Interpretation time 0 950. Radiology/Procedures Radiology/Procedures [facility] [address] [place] [address] IMAGING REPORT Signed PATIENT: SEBASTIAN ANGULO ACCOUNT: [id number] : 1960 LOCATION: ER AGE: 59 SEX: M EXAM STATUS: PRE ER ORD. PHYSICIAN: KAYLA ROWLAND MD REASON: chest pain, SOA PROCEDURE: PORTABLE CHEST 1V PORTABLE CHEST 1V Clinical indications: Chest pain and shortness of air. COMPARISON: April 24, 2019. Findings: Chronic bilateral pleural effusions are seen which have improved. Chronic bilateral lung infiltrates or pulmonary edema are seen which have improved. Heart size is prominent but stable. Mediastinum and pulmonary vasculature are stable. No pneumothorax is seen. Vascular stent is seen in the right subclavian area. IMPRESSION: Chronic pleural effusions and lung infiltrates bilaterally which have improved since April 24, 2019. This could be due to chronic CHF. Electronically signed by: Torin Manning MD (07/06/2019 10:38 AM) [id number] DICTATED and SIGNED BY: TORIN MANNING MD DATE: 07/06/19 1038 [] Course & Med Decision Making Course & Med Decision Making Pertinent Labs and Imaging studies reviewed. (See chart for details) []59-year-old male with history of hemodialysis, chronic respiratory failure presents to the emergency Department with complaints of chest pain. Patient states he was on dialysis this morning roughly 30 minutes prior to his session ending developed chest pain, center aspect of his chest, dull. Patient denies any radiation, no shortness of breath or nausea or vomiting. EMS was called. Patient received one sublingual nitroglycerin with relief of pain. Patient denies any pain currently. Patient received ASA/NTG en route. Labs reviewed, troponin less than 0.017, potassium within normal limits, creatinine 2.8, Hgb 9.7 - chest x-ray reveals evidence of chronic pleural effusions. There is no evidence of acute consolidation appreciated. EKG as previously described reveals no evidence of acute ST elevation MO. Given saira ortiz's heart score of 5 will plan for admission and cardiology consultation. Patient was last seen in March 2018 with stents placed to his right coronary artery and left circumflex. Discussed admission with DR. ROSE Bass Disclaimer Shelia Disclaimer This electronic medical record was generated, in whole or in part, using a voice recognition dictation system. Departure Departure Impression: Primary Impression: Chest pain Additional Impression: Pleural effusion Disposition: 09 ADMITTED INPATIENT Admitting Physician: AYDEN Condition: STABLE Referrals: SOLO NUNO MD (PCP) Problem Qualifiers Primary Impression: Chest pain Chest pain type: unspecified Qualified Codes: R07.9 - Chest pain, unspecified KAYLA ROWLAND MD Jul 06, 2019 10:00
[2019-07-06 10:27] LABS: BASO # 0.1 x10^3/uL (0.0-0.2); BASO % 2 % (0-3); EOS # 0.3 x10^3/uL (0.0-0.7); EOS % 7 % (0-3); HEMOGLOBIN 9.7 g/dL (13.0-17.5); LYMPH # 0.9 x10^3/uL (1.0-4.8); LYMPH % 19 % (24-48); MEAN CORPUSCULAR HEMOGLOBIN 30 pg (25-35); MEAN CORPUSCULAR HGB CONC 33 g/dL (31-37); MEAN CORPUSCULAR VOLUME 91 fL (79-100); MONO # 0.3 x10^3/uL (0.0-1.1); MONO % 6 % (0-9); NEUT % 66 % (31-73); PLATELET COUNT 146 x10^3/uL (140-400); RED BLOOD COUNT 3.18 x10^6/uL (4.30-5.70); RED CELL DISTRIBUTION WIDTH 18.2 % (11.5-14.5); WHITE BLOOD COUNT 4.6 x10^3/uL (4.0-11.0)
[2019-07-06 10:28] LABS: CALCIUM 8.8 mg/dL (8.5-10.1); CREATININE 2.8 mg/dL (0.7-1.3); GFR 23.5; POTASSIUM 3.7 mmol/L (3.5-5.1)
[2019-07-06 10:34] LABS: ALBUMIN 3.3 g/dL (3.4-5.0); TOTAL BILIRUBIN 0.7 mg/dL (0.2-1.0); TOTAL PROTEIN 6.7 g/dL (6.4-8.2)
--- NOTE | 2019-07-06 10:41 | RAD ---
PORTABLE CHEST 1V Clinical indications: Chest pain and shortness of air. COMPARISON: April 24, 2019. Findings: Chronic bilateral pleural effusions are seen which have improved. Chronic bilateral lung infiltrates or pulmonary edema are seen which have improved. Heart size is prominent but stable. Mediastinum and pulmonary vasculature are stable. No pneumothorax is seen. Vascular stent is seen in the right subclavian area. IMPRESSION: Chronic pleural effusions and lung infiltrates bilaterally which have improved since April 24, 2019. This could be due to chronic CHF. Electronically signed by: Jean Manning MD (07/06/2019 10:38 AM) [id number]
[2019-07-06] MEDS ORDERED: MORPHINE SULFATE 2 MG/ML VIAL. IV PRN (11:00)
[2019-07-06] MEDS ORDERED: NITROGLYCERIN SUBLINGUAL 0.4 MG BOTTLE OF 25. SL PRN (11:00)
[2019-07-06] MEDS ORDERED: ONDANSETRON PF 4 MG/2 ML VIAL. IV PRN ×2 (11:00→13:45)
[2019-07-06] MEDS: IPRATRPIUM/ALBUTEROL 0.5/2.5MG 3 ML NEBU. NEB SCH ×5 (11:27→20:00)
--- NOTE | 2019-07-06 11:42 | PDOC1 ---
History and Physical Date of Admission Date of Admission DATE: 07/06/19 TIME: 11:41 Identification/Chief Complaint Chief Complaint SEEN IN ER , presents to the emergency Department with complaints of chest pain. states he was on dialysis this morning roughly 30 minutes prior to his session ending developed chest pain, center aspect of his chest, dull. Patient denies any radiation, no shortness of breath or nausea or vomiting. EMS was called. Patient received one sublingual nitroglycerin with relief of pain. Past Medical History Past Medical History Past Medical History Past Medical History: CAD, COPD, Diabetes-Type I, Heart Disease, Hypertension, Renal Failure, DIALYSIS Additional Past Medical Histor: CARDIAC ARREST DURING DIALYSIS 09/12 Additional Past Surgical Histo: AV SHUNT RUE, CARDIAC STENT Alcohol Use: Rarely Drug Use: None PAST MEDICAL HISTORY: COPD, previous pleural effusions, previous thoracentesis, renal failure, cardiac arrest, AV shunt, and cardiac stents. ALLERGIES: None. FAMILY HISTORY: Coronary artery disease. SOCIAL HISTORY: He quit smoking, no drinking or drugs. He is . FHX HTN Cardiovascular: CAD, HTN, Hyperlipidemia Pulmonary: Other GI: GERD Heme/Onc: Anemia NOS Psych: Depression Renal/: Chronic renal failure Endocrine: Diabetes, Hypothyroidism, Hyperparathyroidism Past Surgical History Past Surgical History: Other Family History Family History: Diabetes, Hypertension Social History Smoke: No ALCOHOL: none Drugs: None Current Problem List Problem List Problems Medical Problems: (1) Chest pain Status: Acute Current Medications Current Medications Current Medications Aspirin (Children'S Aspirin) 324 mg 1X ONCE PO ; Start 07/06/19 at 10:00; Stop 07/06/19 at 10:07; Status DC Ondansetron HCl (Zofran) 4 mg PRN Q8HRS PRN IV NAUSEA/VOMITING; Start 07/06/19 at 11:00; Stop 07/07/19 at 10:59 Morphine Sulfate (Morphine Sulfate) 2 mg PRN Q2HR PRN IV PAIN; Start 07/06/19 at 11:00; Stop 07/07/19 at 10:59 Nitroglycerin (Nitrostat) 0.4 mg PRN Q5MIN PRN SL CHEST PAIN; Start 07/06/19 at 11:00; Stop 07/07/19 at 10:59 Albuterol/ Ipratropium (Duoneb) 3 ml RTQID NEB Last administered on 07/06/19at 11:27; Start 07/06/19 at 12:00; Stop 07/07/19 at 11:59 Active Scripts Active Humalog (Insulin Lispro) 100 Unit/1 Ml Insuln.pen 9 Units SQ TIDWMEALS 30 Days Atorvastatin Calcium 10 Mg Tablet 5 Mg PO QHS 30 Days Hydralazine Hcl 10 Mg Tablet 10 Mg PO TID MDD 1 Amlodipine Besylate 10 Mg Tablet 10 Mg PO DAILY MDD 1 Lisinopril 40 Mg Tablet 20 Mg PO DAILY MDD 1 [Pantoprazole] 40 MG Tablet.dr 40 Mg PO DAILYAC 30 Days Trazodone Hcl 100 Mg Tablet 100 Mg PO PRN QHS PRN 30 Days Lantus Solostar (Insulin Glargine,Hum.rec.anlog) 100 Unit/1 Ml Insuln.pen 15 Units SQ QHS 30 Days Budesonide 0.5 Mg/2 Ml Ampul.neb 0.5 Mg NEB RTBID 30 Days Aspirin 81 Mg Tab.chew 81 Mg PO DAILYWBKFT 30 Days Duoneb 0.5-3(2.5) Mg/3 Ml (Albuterol/Ipratropium) 3 Ml Ampul.neb 3 Ml NEB RTQID 30 Days Reported Zithromax (Azithromycin) 250 Mg Tablet 1 Pkg PO UD Levothyroxine Sodium 300 Mcg Tablet 300 Mcg PO DAILYAC Clopidogrel (Clopidogrel Bisulfate) 75 Mg Tablet 1 Tab PO DAILY Furosemide 80 Mg Tablet 80 Mg PO BID [place] 3 Fish Oil Softgel ([place]-3 Fatty Acids/Fish Oil) 1 Each Capsule.dr 1 Each PO DAILY Toprol Xl (Metoprolol Succinate) 25 Mg Tab.er.24h 0.5 Tab PO DAILY Calcium Acetate 667 Mg Tablet 667 Mg PO TIDWMEALS Tylenol (Acetaminophen) 325 Mg Tablet 650 Mg PO PRN Q6HRS Ferrous Sulfate 325 Mg Tablet 1 Tab PO DAILY Dialyvite Tablet (Folic Acid/Vitamin B Comp W-C) 1 Each Tablet 1 Each PO Allergies Allergies: Coded Allergies: No Known Drug Allergies (Unverified , 02/16/19) ROS Review of System Review of Systems Review of Systems Constitutional: Denies fever or chills [] Respiratory: Denies shortness of breath [] Cardiovascular: No additional information not addressed in HPI [] GI: Denies abdominal pain, nausea, vomiting, bloody stools or diarrhea [] : Denies dysuria or hematuria [] Musculoskeletal: Denies back pain or joint pain [] Integument: Denies rash or skin lesions [] Neurologic: Denies headache, focal weakness 14 PT systems were reviewed and found to be within normal limits, except as documented Musculoskeletal: Yes Joint Stiffness Physical Exam Physical Exam Physical Exam Physical Exam Constitutional: Well developed, well nourished, no acute distress, non-toxic appearance. [] HENT: Normocephalic, atraumatic, bilateral external ears normal, oropharynx moist, no oral exudates, nose normal. [] Eyes: PERRLA, EOMI, conjunctiva normal, no discharge. [] Neck: Normal range of motion, no tenderness, supple, no stridor. [] Cardiovascular:Heart rate regular rhythm, no murmur [] Lungs & Thorax: Bilateral breath sounds clear to auscultation [] Abdomen: Bowel sounds normal, soft, no tenderness, no masses, no pulsatile masses. [] Skin: Warm, dry, no erythema, no rash. [] Back: No tenderness, no CVA tenderness. [] Extremities: No tenderness, no cyanosis, no clubbing, ROM intact, no edema. [] Neurologic: Alert and oriented X 3, normal motor function, normal sensory f unction, no focal deficits noted. [] Psychologic: Affect normal, judgement normal, mood normal. [] General: Alert, Oriented X3, Cooperative, No acute distress HEENT: EOMI Lungs: Normal air movement Heart: no thrills Breasts: Not examined Abdomen: Soft Rectal Exam: not examined Neuro: Normal speech, Cranial nerves 3-12 NL Psych/Mental Status: Mental status NL, Mood NL Vitals Vitals Vital Signs Date Time Temp Pulse Resp B/P (MAP) Pulse Ox O2 Delivery O2 Flow Rate FiO2 07/06/19 11:29 96 Nasal Cannula 5.0 07/06/19 09:44 97.3 67 20 174/75 (108) 97.3 Labs Labs Laboratory Tests Test 07/06/19 10:00 White Blood Count 4.6 x10^3/uL (4.0-11.0) Red Blood Count 3.18 x10^6/uL (4.30-5.70) Hemoglobin 9.7 g/dL (13.0-17.5) Hematocrit 29.0 % (39.0-53.0) Mean Corpuscular Volume 91 fL (79-100) Mean Corpuscular Hemoglobin 30 pg (25-35) Mean Corpuscular Hemoglobin Concent 33 g/dL (31-37) Red Cell Distribution Width 18.2 % (11.5-14.5) Platelet Count 146 x10^3/uL (140-400) Neutrophils (%) (Auto) 66 % (31-73) Lymphocytes (%) (Auto) 19 % (24-48) Monocytes (%) (Auto) 6 % (0-9) Eosinophils (%) (Auto) 7 % (0-3) Basophils (%) (Auto) 2 % (0-3) Neutrophils # (Auto) 3.0 x10^3/uL (1.8-7.7) Lymphocytes # (Auto) 0.9 x10^3/uL (1.0-4.8) Monocytes # (Auto) 0.3 x10^3/uL (0.0-1.1) Eosinophils # (Auto) 0.3 x10^3/uL (0.0-0.7) Basophils # (Auto) 0.1 x10^3/uL (0.0-0.2) Sodium Level 143 mmol/L (136-145) Potassium Level 3.7 mmol/L (3.5-5.1) Chloride Level 99 mmol/L (98-107) Carbon Dioxide Level 34 mmol/L (21-32) Anion Gap 10 (6-14) Blood Urea Nitrogen 14 mg/dL (8-26) Creatinine 2.8 mg/dL (0.7-1.3) Estimated GFR (Cockcroft-Gault) 23.5 BUN/Creatinine Ratio 5 (6-20) Glucose Level 180 mg/dL (70-99) Calcium Level 8.8 mg/dL (8.5-10.1) Total Bilirubin 0.7 mg/dL (0.2-1.0) Aspartate Amino Transf (AST/SGOT) 17 U/L (15-37) Alanine Aminotransferase (ALT/SGPT) 10 U/L (16-63) Alkaline Phosphatase 152 U/L (46-116) Troponin I Quantitative < 0.017 ng/mL (0.000-0.055) Total Protein 6.7 g/dL (6.4-8.2) Albumin 3.3 g/dL (3.4-5.0) Albumin/Globulin Ratio 1.0 (1.0-1.7) Laboratory Tests Test 07/06/19 10:00 White Blood Count 4.6 x10^3/uL (4.0-11.0) Red Blood Count 3.18 x10^6/uL (4.30-5.70) Hemoglobin 9.7 g/dL (13.0-17.5) Hematocrit 29.0 % (39.0-53.0) Mean Corpuscular Volume 91 fL (79-100) Mean Corpuscular Hemoglobin 30 pg (25-35) Mean Corpuscular Hemoglobin Concent 33 g/dL (31-37) Red Cell Distribution Width 18.2 % (11.5-14.5) Platelet Count 146 x10^3/uL (140-400) Neutrophils (%) (Auto) 66 % (31-73) Lymphocytes (%) (Auto) 19 % (24-48) Monocytes (%) (Auto) 6 % (0-9) Eosinophils (%) (Auto) 7 % (0-3) Basophils (%) (Auto) 2 % (0-3) Neutrophils # (Auto) 3.0 x10^3/uL (1.8-7.7) Lymphocytes # (Auto) 0.9 x10^3/uL (1.0-4.8) Monocytes # (Auto) 0.3 x10^3/uL (0.0-1.1) Eosinophils # (Auto) 0.3 x10^3/uL (0.0-0.7) Basophils # (Auto) 0.1 x10^3/uL (0.0-0.2) Sodium Level 143 mmol/L (136-145) Potassium Level 3.7 mmol/L (3.5-5.1) Chloride Level 99 mmol/L (98-107) Carbon Dioxide Level 34 mmol/L (21-32) Anion Gap 10 (6-14) Blood Urea Nitrogen 14 mg/dL (8-26) Creatinine 2.8 mg/dL (0.7-1.3) Estimated GFR (Cockcroft-Gault) 23.5 BUN/Creatinine Ratio 5 (6-20) Glucose Level 180 mg/dL (70-99) Calcium Level 8.8 mg/dL (8.5-10.1) Total Bilirubin 0.7 mg/dL (0.2-1.0) Aspartate Amino Transf (AST/SGOT) 17 U/L (15-37) Alanine Aminotransferase (ALT/SGPT) 10 U/L (16-63) Alkaline Phosphatase 152 U/L (46-116) Troponin I Quantitative < 0.017 ng/mL (0.000-0.055) Total Protein 6.7 g/dL (6.4-8.2) Albumin 3.3 g/dL (3.4-5.0) Albumin/Globulin Ratio 1.0 (1.0-1.7) Images Images PORTABLE CHEST 1V Clinical indications: Chest pain and shortness of air. COMPARISON: April 24, 2019. Findings: Chronic bilateral pleural effusions are seen which have improved. Chronic bilateral lung infiltrates or pulmonary edema are seen which have improved. Heart size is prominent but stable. Mediastinum and pulmonary vasculature are stable. No pneumothorax is seen. Vascular stent is seen in the right subclavian area. IMPRESSION: Chronic pleural effusions and lung infiltrates bilaterally which have improved since April 24, 2019. This could be due to chronic CHF. Electronically signed by: Jean Manning MD (07/06/2019 10:38 AM) [id number] VTE Prophylaxis Ordered VTE Prophylaxis Devices: No VTE Pharmacological Prophylaxi: Yes Assessment/Plan Assessment/Plan IMPRESSION CHEST PAIN/ANGINA SOB Recurrent hx of bilateral pleural effusions Chronic pleural effusions and lung infiltrates bilaterally which have improved since April 24, 2019. chronic CHF. Prior hx of multiple thoracenteses (January, February and March of 2019; transudative with negative cytology) CAD PREV STENT RCA COPD DM Type I HTN ESRD PLAN ADMIT CARDIOLOGY CONSULT CVC BED SERIAL TROPONIN I DVT PROPHYLAXIS NEPHROLOGY CONSULT 63 MIN PT EXAM, CHART REVIEW, > 50% OF TIME SPENT WITH EXAM, CHART REVIEW, PT CARE COORDINATION PABLO SHERMAN MD Jul 06, 2019 11:42
[2019-07-06 12:30] VITALS: BP 157/61
--- NOTE | 2019-07-06 13:22 | EKG ---
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
[2019-07-06] MEDS ORDERED: ALBUTEROL SULFATE 2.5 MG/3 ML NEBU. NEB PRN (13:45)
[2019-07-06] MEDS ORDERED: cloNIDine HCL 0.1 MG TABLET PO PRN (13:45)
[2019-07-06] MEDS ORDERED: 0.9 % SODIUM CHLORIDE 10 ML DISP.SYRIN. IV PRN (13:45)
[2019-07-06] MEDS ORDERED: LORazepam 0.5 MG TABLET PO PRN (13:45)
[2019-07-06] MEDS ORDERED: guaiFENesin ORAL 200 MG/10 ML LIQUID. PO PRN (13:45)
[2019-07-06] MEDS ORDERED: ACETAMINOPHEN 325 MG TABLET. PO SCH (13:45)
[2019-07-06] MEDS ORDERED: traZODone 100 MG TABLET. PO PRN (13:45)
[2019-07-06] MEDS ORDERED: DOCUSATE SODIUM 100 MG CAPSULE. PO PRN (13:45)
--- NOTE | 2019-07-06 14:42 | PDOC2 ---
CARDIOLOGY CONSULT NOTE CHEIF COMPLAINT: Chest pain HPI: 59 y.o man well known to our service presenting with recurrent chest pain while on HD. This is his 3rd admission with these symptoms. Usually these are related to labile BP's and in the past was related to medication non-compliance. We reviewed his meds at his last hospitalization and tried to clarify things for him. He reports shortness of air. Denies missing any HD. Reports compliance with meds. Initial EKG/Labs unremarkable. Echo in 02/2019 with normal EF. Cath in 07/2018 with 3V CAD. PMHX: 1. CAD s/p PCI 2. HTN 3. ESRD 4. DM2 SOCHX: No significant alcohol, tob or illicit drug use. FAMHX: NC CURRENT MEDS: Current Medications Medications (Trade) Dose Ordered Sig/Celi Route PRN Reason Start Time Stop Time Status Last Admin Dose Admin Albuterol/ Ipratropium (Duoneb) 3 ml RTQID NEB 07/06/19 12:00 07/07/19 11:59 07/06/19 11:27 ALLERGIES: Allergies Coded Allergies Type Severity Reaction Last Updated Verified No Known Drug Allergies 02/16/19 No ROS: Negative unless otherwise noted above in HPI PHYSICAL EXAM: Vital Signs/I&O: Vital Signs Date Time Temp Pulse Resp B/P (MAP) Pulse Ox O2 Delivery O2 Flow Rate FiO2 07/06/19 12:30 98.0 101 22 157/61 (93) 95 Nasal Cannula 5.0 98.0 Physical Exam: GEN.: No apparent distress. Alert and oriented. HEENT: Head is normocephalic, atraumatic NECK: Supple. LUNGS: Clear to auscultation. HEART: RRR, S1, S2 present. Peripheral pulses intact ABDOMEN: Soft, nontender. Positive bowel sounds. EXTREMITIES: Without any cyanosis. NEUROLOGIC: Normal speech, normal tone PSYCHIATRIC: Normal affect, normal mood. SKIN: No ulcerations DIAGNOSTIC TESTING: Trop negative x 2. EKG negative for ischemia. Echo as above. Lab Laboratory Tests Test 07/06/19 10:00 07/06/19 12:38 White Blood Count 4.6 x10^3/uL (4.0-11.0) Red Blood Count 3.18 x10^6/uL (4.30-5.70) L Hemoglobin 9.7 g/dL (13.0-17.5) L Hematocrit 29.0 % (39.0-53.0) L Mean Corpuscular Volume 91 fL (79-100) Mean Corpuscular Hemoglobin 30 pg (25-35) Mean Corpuscular Hemoglobin Concent 33 g/dL (31-37) Red Cell Distribution Width 18.2 % (11.5-14.5) H Platelet Count 146 x10^3/uL (140-400) Neutrophils (%) (Auto) 66 % (31-73) Lymphocytes (%) (Auto) 19 % (24-48) L Monocytes (%) (Auto) 6 % (0-9) Eosinophils (%) (Auto) 7 % (0-3) H Basophils (%) (Auto) 2 % (0-3) Neutrophils # (Auto) 3.0 x10^3/uL (1.8-7.7) Lymphocytes # (Auto) 0.9 x10^3/uL (1.0-4.8) L Monocytes # (Auto) 0.3 x10^3/uL (0.0-1.1) Eosinophils # (Auto) 0.3 x10^3/uL (0.0-0.7) Basophils # (Auto) 0.1 x10^3/uL (0.0-0.2) Sodium Level 143 mmol/L (136-145) Potassium Level 3.7 mmol/L (3.5-5.1) Chloride Level 99 mmol/L (98-107) Carbon Dioxide Level 34 mmol/L (21-32) H Anion Gap 10 (6-14) Blood Urea Nitrogen 14 mg/dL (8-26) Creatinine 2.8 mg/dL (0.7-1.3) H Estimated GFR (Cockcroft-Gault) 23.5 BUN/Creatinine Ratio 5 (6-20) L Glucose Level 180 mg/dL (70-99) H Calcium Level 8.8 mg/dL (8.5-10.1) Total Bilirubin 0.7 mg/dL (0.2-1.0) Aspartate Amino Transf (AST/SGOT) 17 U/L (15-37) Alkaline Phosphatase 152 U/L (46-116) H Total Protein 6.7 g/dL (6.4-8.2) Albumin 3.3 g/dL (3.4-5.0) L Albumin/Globulin Ratio 1.0 (1.0-1.7) Glucose (Fingerstick) 255 mg/dL (70-99) H Laboratory Tests 07/06/19 10:00 ASSESSMENT: 1. Chest pain - cannot rule out coronary process 2. HTN 3. ESRD PLAN: 1. He has had multiple admissions over the last 1 year with recurrent HF and chest pain. This is likely multifactorial mostly related to labile BP's and diastolic HF. -He has a normal EKG, negative enzymes and echo that is grossly unchanged from 3 months ago. -I discussed merits of repeat cath with him and he is not interested. Given overall low risk presentation, ok to DC from CV standpoint. Supportive care otherwise. Thanks. Pls call with questions. ASH VALERIO MD Jul 06, 2019 14:42
[2019-07-06 15:03] VITALS: BP 193/80
[2019-07-06] MEDS ORDERED: hydrALAZINE 20 MG/ML VIAL. IVP PRN (15:30)
[2019-07-06] MEDS: LEVOTHYROXINE 150 MCG TABLET PO SCH (15:30)
--- NOTE | 2019-07-06 16:45 | RAD ---
V/Q LUNG SCAN CLINICAL INDICATIONS: Shortness of air. COMPARISON: No previous V/Q lung scan. Chest x-ray dated July 06, 2019. TECHNIQUE: After inhalation of 14.5 mCi of Xenon 133 gas, anterior and posterior planar images of the lung magaña were performed in the single breath and equilibrium and washout phases. After IV infusion of 5.5 mCi of technetium 99m MAA, multiplanar images of both lung magaña were performed. FINDINGS: Ventilatory defects are seen bilaterally corresponding to lung infiltrates and pleural effusions seen on previous chest x-ray. There is retention of radiotracer activity within the left lower lung zone secondary to air trapping. Small peripheral subsegmental perfusion defects are seen bilaterally. No segmental perfusion defects are evident. Overall, the probability for pulmonary embolism is low. IMPRESSION: Low probability for pulmonary embolism. Electronically signed by: Jean Manning MD (07/06/2019 4:42 PM) [id number]
[2019-07-06] MEDS: FERROUS SULFATE 325 MG TABLET. PO SCH (16:59)
[2019-07-06] MEDS: FUROSEMIDE 80 MG TABLET. PO SCH (16:59)
[2019-07-06] MEDS: INSULIN LISPRO 300 UNITS/3 ML VIAL. SQ SCH ×3 (17:00→21:16)
[2019-07-06] MEDS: CLOPIDOGREL BISULFATE 75 MG TABLET PO SCH (17:00)
[2019-07-06] MEDS: ASPIRIN CHEWABLE 81 MG TABLET. PO SCH (17:00)
[2019-07-06] MEDS: OMEGA-3 FATTY ACIDS/FISH OIL 1,000 MG CAPSULE. PO SCH (17:00)
[2019-07-06] MEDS: METOPROLOL SUCC 24HR ER 25 MG TAB.ER.24H. PO SCH (17:01)
[2019-07-06] MEDS: amLODIPine BESYLATE 10 MG TABLET PO SCH (17:02)
[2019-07-06] MEDS: LISINOPRIL 20 MG TABLET PO SCH (17:02)
[2019-07-06] MEDS: FOLIC/VIT B COMP W-C (RENAL) TABLET. PO SCH (17:12)
[2019-07-06] MEDS: PANTOPRAZOLE 40 MG TABLET.DR. PO SCH (17:13)
[2019-07-06] MEDS: CALCIUM ACETATE 667 MG CAPSULE PO SCH (17:13)
[2019-07-06] MEDS: HEPARIN for SUB-Q USE 5,000 UNIT/ML VIAL. SQ SCH ×2 (17:20→21:29)
[2019-07-06] MEDS: hydrALAZINE 10 MG TABLET PO SCH ×2 (17:25→21:12)
[2019-07-06 19:16] VITALS: BP 167/72
--- NOTE | 2019-07-06 19:44 | NUR ---
PT WAS GIVEN 9 UNITS OF INSULIN AT 1700. DR RODRIGUEZ NOTIFIED THAT THE PT HAD A FSBS OF 442. PT WANTED TO ONLY TAKE [address] RODRIGUEZ AWARE AND WAS OK WITH THE PT TAKING 9 UNITS ONLY. INSULIN SCANNED AND GIVEN HWEVER WOULD NOT COME OFF EMAR ADMINISTERED.
[2019-07-06] MEDS: BUDESONIDE 0.5 MG/2 ML NEBU. NEB SCH (20:00)
[2019-07-06] MEDS ORDERED: ATORVASTATIN CALCIUM 10 MG TABLET. PO SCH (21:00)
[2019-07-06] MEDS ORDERED: INSULIN GLARGINE SYRINGE. SQ SCH (21:00)
[2019-07-06] MEDS ORDERED: LOPERAMIDE 2 MG CAPSULE PO ONE (22:30)
[2019-07-06 23:20] VITALS: BP 175/75
[2019-07-07 03:40] VITALS: BP 144/63
[2019-07-07 04:13] LABS: BASO # 0.1 x10^3/uL (0.0-0.2); BASO % 2 % (0-3); EOS # 0.3 x10^3/uL (0.0-0.7); EOS % 5 % (0-3); HEMATOCRIT 27.3 % (39.0-53.0); HEMOGLOBIN 8.9 g/dL (13.0-17.5); LYMPH # 1.2 x10^3/uL (1.0-4.8); LYMPH % 19 % (24-48); MEAN CORPUSCULAR HEMOGLOBIN 30 pg (25-35); MEAN CORPUSCULAR HGB CONC 33 g/dL (31-37); MEAN CORPUSCULAR VOLUME 93 fL (79-100); MONO # 0.5 x10^3/uL (0.0-1.1); MONO % 8 % (0-9); NEUT # 4.2 x10^3/uL (1.8-7.7); NEUT % 67 % (31-73); PLATELET COUNT 128 x10^3/uL (140-400); RED BLOOD COUNT 2.95 x10^6/uL (4.30-5.70); RED CELL DISTRIBUTION WIDTH 18.5 % (11.5-14.5); WHITE BLOOD COUNT 6.3 x10^3/uL (4.0-11.0)
[2019-07-07 04:31] LABS: ALBUMIN/GLOBULIN RATIO 0.8 (1.0-1.7); CALCIUM 8.6 mg/dL (8.5-10.1); CREATININE 3.9 mg/dL (0.7-1.3); POTASSIUM 3.8 mmol/L (3.5-5.1); TOTAL BILIRUBIN 0.5 mg/dL (0.2-1.0); TOTAL PROTEIN 6.6 g/dL (6.4-8.2)
[2019-07-07] MEDS: LEVOTHYROXINE 150 MCG TABLET PO SCH (06:18)
[2019-07-07] MEDS: HEPARIN for SUB-Q USE 5,000 UNIT/ML VIAL. SQ SCH (06:21)
[2019-07-07 07:00] VITALS: BP 159/72
[2019-07-07] MEDS: IPRATRPIUM/ALBUTEROL 0.5/2.5MG 3 ML NEBU. NEB SCH ×3 (07:30→11:49)
[2019-07-07] MEDS: BUDESONIDE 0.5 MG/2 ML NEBU. NEB SCH (07:33)
[2019-07-07] MEDS ORDERED: INSULIN LISPRO 300 UNITS/3 ML VIAL. SQ SCH (08:30)
[2019-07-07] MEDS: CALCIUM ACETATE 667 MG CAPSULE PO SCH ×2 (09:21→11:51)
[2019-07-07] MEDS: FERROUS SULFATE 325 MG TABLET. PO SCH (09:21)
[2019-07-07] MEDS: FUROSEMIDE 80 MG TABLET. PO SCH (09:21)
[2019-07-07] MEDS: CLOPIDOGREL BISULFATE 75 MG TABLET PO SCH (09:22)
[2019-07-07] MEDS: FOLIC/VIT B COMP W-C (RENAL) TABLET. PO SCH (09:22)
[2019-07-07] MEDS: hydrALAZINE 10 MG TABLET PO SCH (09:22)
[2019-07-07] MEDS: PANTOPRAZOLE 40 MG TABLET.DR. PO SCH (09:22)
[2019-07-07] MEDS: ASPIRIN CHEWABLE 81 MG TABLET. PO SCH (09:22)
[2019-07-07] MEDS: amLODIPine BESYLATE 10 MG TABLET PO SCH (09:22)
[2019-07-07] MEDS: OMEGA-3 FATTY ACIDS/FISH OIL 1,000 MG CAPSULE. PO SCH (09:22)
[2019-07-07] MEDS: METOPROLOL SUCC 24HR ER 25 MG TAB.ER.24H. PO SCH (09:23)
[2019-07-07] MEDS: LISINOPRIL 20 MG TABLET PO SCH (09:24)
--- NOTE | 2019-07-07 10:48 | SNU/HH DC ---
DISCHARGE WITH HOME HEALTH DISCHARGE INFORMATION: Final Diagnosis: Problems Medical Problems: (1) Chest pain Status: Acute Condition on Discharge: Stable CODE STATUS: Code Status: Full HOME HEALTH: Face to Face: I certify this patient is under my care and that I, or a nurse practitioner or physician's employee relations assistant working with me, had a face to face encounter that meets the physician face to face encounter requirements with this patient on []. Medical Complications: CHF RN For Eval/Treatment: Yes Physical Therapy For: Evalulation/Treatment Speech Language Pathology For: Evaluation/Treatment Home Health Aide For: Self-care [place] K[employer]ITTER For: Community Resources Pt Meets Homebound Status: Extreme weakness w/ amb. POST DISCHARGE ORDERS: Activity Instructions for Disc: No restrictions, Resume previous activity, Activity as tolerated Weight Bearing Status after Di: No restrictions, Full weight bearing, As tolerated DIET AFTER DISCHARGE: Cardiac Wound/Incision Care: No wound care needed CHECKS AFTER DISCHARGE: Checks after discharge: Check blood press - daily, Check blood sugar, ac/hs, Check your Temp as needed, Weigh Yourself Daily TREATMENT/EQUIPMENT ORDERS: Adaptive Equipment Issued: None Discharge Respiratory Equipmen: Oxygen CERTIFICATION STATEMENT: Certification Statement: Certification Statement: Based on the above finding, I certify that this patient is confined to the home and needs intermittent custodial care, physical therapy and/or speech therapy, or continues to need occupational therapy.~ This patient is under my care, and I have initiated the establishment of the plan of care.~ This patient will be followed by myself or a community physician who will periodically review the plan of care. Home Meds Active Scripts Insulin Lispro (HUMALOG) 100 Unit/1 Ml Insuln.pen, 9 UNITS SQ TIDWMEALS for diabetes for 30 Days, EACH Prov:CORNELIO OATES MD 04/02/19 Atorvastatin Calcium (ATORVASTATIN CALCIUM) 10 Mg Tablet, 5 MG PO QHS for HLD for 30 Days, #15 TAB 11 Refills Prov:JIN ROBLES MD 03/10/19 Hydralazine Hcl (HYDRALAZINE HCL) 10 Mg Tablet, 10 MG PO TID for htn MDD 1, #90 TAB Prov:KRYSTAL JASSO MD 10/04/18 Amlodipine Besylate (AMLODIPINE BESYLATE) 10 Mg Tablet, 10 MG PO DAILY for htn MDD 1, #30 TAB Prov:KRYSTAL JASSO MD 10/04/18 Lisinopril (LISINOPRIL) 40 Mg Tablet, 20 MG PO DAILY for htn MDD 1, #30 TAB Prov:KRYSTAL JASSO MD 10/04/18 [Pantoprazole] [address] Villarreal Conflict Check, 40 MG PO DAILYAC for 30 Days, #30 2 Refills Prov:JIN ROBLES MD 09/09/18 Trazodone Hcl (TRAZODONE HCL) 100 Mg Tablet, 100 MG PO PRN QHS PRN for INSOMNIA for 30 Days, #30 TAB 1 Refill Prov:JIN ROBLES MD 09/09/18 Insulin Glargine,Hum.rec.anlog (LANTUS SOLOSTAR) 100 Unit/1 Ml Insuln.pen, 15 UNITS SQ QHS for DM for 30 Days, EACH Prov:JIN ROBLES MD 09/09/18 Budesonide (BUDESONIDE) 0.5 Mg/2 Ml Ampul.neb, 0.5 MG NEB RTBID for copd for 30 Days, #60 EACH Prov:PABLO SHERMAN MD 08/29/18 Aspirin (ASPIRIN) 81 Mg Tab.chew, 81 MG PO DAILYWBKFT for heart health for 30 Days, #30 TAB.CHEW Prov:PABLO SHERMAN MD 08/29/18 Ipratropium/Albuterol Sulfate (DUONEB 0.5-3(2.5) MG/3 ML) 3 Ml Ampul.neb, 3 ML NEB RTQID for copd for 30 Days, #120 EACH Prov:PABLO SHERMAN MD 08/29/18 Reported Medications Azithromycin (ZITHROMAX) 250 Mg Tablet, 1 PKG PO UD for pnemonia, #1 PKG 04/27/19 Levothyroxine Sodium (LEVOTHYROXINE SODIUM) 300 Mcg Tablet, 300 MCG PO DAILYAC for THYROID SUPPLEMENT, #30 TAB 0 Refills 04/25/19 Clopidogrel Bisulfate (CLOPIDOGREL) 75 Mg Tablet, 1 TAB PO DAILY for blood thinner, #90 TAB 1 Refill 04/25/19 Furosemide (FUROSEMIDE) 80 Mg Tablet, 80 MG PO BID for diuretic, CHF, TAB 02/18/19 [place]-3 Fatty Acids/Fish Oil ([place] 3 FISH OIL SOFTGEL) 1 Each Capsule.dr, 1 EACH PO DAILY for supplement, CAP 11/07/18 Metoprolol Succinate (TOPROL XL) 25 Mg Tab.er.24h, 0.5 TAB PO DAILY for HTN, #30 TAB 5 Refills 11/07/18 Calcium Acetate (CALCIUM ACETATE) 667 Mg Tablet, 667 MG PO TIDWMEALS for DIALYSIS PATIENTS, CAP 11/07/18 Acetaminophen (TYLENOL) 325 Mg Tablet, 650 MG PO PRN Q6HRS for mild pain, TAB 10/02/18 Ferrous Sulfate (FERROUS SULFATE) 325 Mg Tablet, 1 TAB PO DAILY for Dialysis, #30 TAB 3 Refills 09/15/18 Folic Acid/Vitamin B Comp W-C (DIALYVITE TABLET) 1 Each Tablet, 1 EACH PO, TAB 03/28/18 LAKESHA RODRIGUEZ III DO Jul 07, 2019 10:48
--- NOTE | 2019-07-07 10:51 | PDOC ---
[employer] PROGRESS NOTE Chief Complaint Chief Complaint Chest pain History of Present Illness History of Present Illness 07/07/19 Pt seen and examined Pt was sleeping laying down in NAD Pt opened his eyes and stated he was ready to go home today Charts and labs reviewed DW RN and Vitals/I&O Vitals/I&O: Vital Signs Date Time Temp Pulse Resp B/P (MAP) Pulse Ox O2 Delivery O2 Flow Rate FiO2 07/07/19 09:24 73 159/72 07/07/19 08:00 Nasal Cannula 5.0 07/07/19 07:34 94 07/07/19 07:00 98.8 18 98.8 I & O 07/06/19 07/06/19 07/07/19 15:00 23:00 07:00 Intake Total 700 ml Balance 700 ml Physical Exam General: Alert, Oriented X3, Cooperative, No acute distress Heart: Regular rate Lungs: Other Abdomen: Soft Extremities: No cyanosis Skin: No rashes Labs Labs: Laboratory Tests Test 07/06/19 12:38 07/06/19 12:45 07/06/19 17:14 07/06/19 20:39 Glucose (Fingerstick) 255 mg/dL (70-99) 442 mg/dL (70-99) 382 mg/dL (70-99) Troponin I Quantitative < 0.017 ng/mL (0.000-0.055) Test 07/07/19 04:10 07/07/19 07:52 White Blood Count 6.3 x10^3/uL (4.0-11.0) Red Blood Count 2.95 x10^6/uL (4.30-5.70) Hemoglobin 8.9 g/dL (13.0-17.5) Hematocrit 27.3 % (39.0-53.0) Mean Corpuscular Volume 93 fL (79-100) Mean Corpuscular Hemoglobin 30 pg (25-35) Mean Corpuscular Hemoglobin Concent 33 g/dL (31-37) Red Cell Distribution Width 18.5 % (11.5-14.5) Platelet Count 128 x10^3/uL (140-400) Neutrophils (%) (Auto) 67 % (31-73) Lymphocytes (%) (Auto) 19 % (24-48) Monocytes (%) (Auto) 8 % (0-9) Eosinophils (%) (Auto) 5 % (0-3) Basophils (%) (Auto) 2 % (0-3) Neutrophils # (Auto) 4.2 x10^3/uL (1.8-7.7) Lymphocytes # (Auto) 1.2 x10^3/uL (1.0-4.8) Monocytes # (Auto) 0.5 x10^3/uL (0.0-1.1) Eosinophils # (Auto) 0.3 x10^3/uL (0.0-0.7) Basophils # (Auto) 0.1 x10^3/uL (0.0-0.2) Sodium Level 143 mmol/L (136-145) Potassium Level 3.8 mmol/L (3.5-5.1) Chloride Level 101 mmol/L (98-107) Carbon Dioxide Level 33 mmol/L (21-32) Anion Gap 9 (6-14) Blood Urea Nitrogen 26 mg/dL (8-26) Creatinine 3.9 mg/dL (0.7-1.3) Estimated GFR (Cockcroft-Gault) 16.0 BUN/Creatinine Ratio 7 (6-20) Glucose Level 94 mg/dL (70-99) Calcium Level 8.6 mg/dL (8.5-10.1) Total Bilirubin 0.5 mg/dL (0.2-1.0) Aspartate Amino Transf (AST/SGOT) 14 U/L (15-37) Alanine Aminotransferase (ALT/SGPT) 10 U/L (16-63) Alkaline Phosphatase 126 U/L (46-116) Total Protein 6.6 g/dL (6.4-8.2) Albumin 3.0 g/dL (3.4-5.0) Albumin/Globulin Ratio 0.8 (1.0-1.7) Glucose (Fingerstick) 167 mg/dL (70-99) Review of Systems Review of Systems: Denies n/v/d Denies pain Assessment and Plan Assessmemt and Plan Problems Medical Problems: (1) Chest pain Status: Acute Assessment Chest pain COPD ERSD Hypertension Plan Cardiac monitoring Serial EKGs Serial enzymes DVT prophylaxis Discharge ok with cardiology Comment Review of Relevant I have reviewed the following items yesenia (where applicable) has been applied. Medications: Current Medications Medications (Trade) Dose Ordered Sig/Celi Route PRN Reason Start Time Stop Time Status Last Admin Dose Admin Albuterol/ Ipratropium (Duoneb) 3 ml RTQID NEB 07/06/19 12:00 07/07/19 09:45 DC 07/07/19 07:33 Amlodipine Besylate (Norvasc) 10 mg DAILY PO 07/06/19 14:00 07/07/19 09:22 Aspirin (Children'S Aspirin) 81 mg DAILYWBKFT PO 07/06/19 14:00 07/07/19 09:22 Atorvastatin Calcium (Lipitor) 5 mg QHS PO 07/06/19 21:00 07/06/19 21:11 Budesonide (Pulmicort) 0.5 mg RTBID NEB 07/06/19 20:00 07/07/19 07:33 Clopidogrel Bisulfate (Plavix) 75 mg DAILY PO 07/06/19 14:00 07/07/19 09:22 Ferrous Sulfate (Feosol) 325 mg DAILY08 PO 07/06/19 14:00 07/07/19 09:21 Furosemide (Lasix) 80 mg BID92 PO 07/06/19 14:00 07/07/19 09:21 Hydralazine HCl (Apresoline) 10 mg TID PO 07/06/19 14:00 07/07/19 09:22 Insulin Human Lispro (HumaLOG) 9 units TIDWMEALS SQ 07/06/19 17:00 07/06/19 21:16 Lisinopril (Prinivil) 20 mg DAILY PO 07/06/19 14:00 07/07/19 09:24 Metoprolol Succinate (Toprol Xl) 12.5 mg DAILY PO 07/06/19 14:00 07/07/19 09:23 Calcium Acetate (Phoslo) 667 mg TIDWMEALS PO 07/06/19 17:00 07/07/19 09:21 Levothyroxine Sodium (Synthroid) 300 mcg DAILY06 PO 07/06/19 15:30 07/07/19 06:18 Fish Oil (Fish Oil) 1,000 mg DAILY PO 07/06/19 14:00 07/07/19 09:22 Pantoprazole Sodium (Protonix) 40 mg DAILYAC PO 07/06/19 16:30 07/07/19 09:22 Vitamin B Complex/ Vitamin C (Madai-Sean) 1 tab DAILY PO 07/06/19 14:00 07/07/19 09:22 Heparin Sodium (Porcine) (Heparin Sodium) 5,000 unit Q8HRS SQ 07/06/19 15:30 07/07/19 06:21 Loperamide HCl (Imodium) 2 mg 1X ONCE PO 07/06/19 22:30 07/06/19 22:31 DC 07/06/19 22:12 LAKESHA RODRIGUEZ III DO Jul 07, 2019 10:51
[2019-07-07 11:03] VITALS: BP 164/72
[2019-07-07 11:55] LABS: FREE T4 1.16 ng/dL (0.76-1.46); THYROID STIM HORMONE (TSH) 33.604 uIU/mL (0.358-3.74)
[2019-07-07] MEDS: INSULIN LISPRO 300 UNITS/3 ML VIAL. SQ SCH (12:01)
--- NOTE | 2019-07-07 12:12 | PDOC2 ---
CONSULT Date of Consult Date of Consult DATE: 07/07/19 TIME: 12:00 Reason for Consult Reason for Consult: ESRD on dialysis Referring Physician Referring Physician: Johann Identification/Chief Complaint Chief Complaint Chest pain on dialysis Source Source: Chart review, Patient History of Present Illness Reason for Visit: Patient is a 59-year-old gentleman who is being on hemodialysis under my care on a Tuesday basis. He dialyzes at [facility]. He is known to have significant noncompliance with fluid intake, dietary restrictions as well as with diabetes management. He does tend to missed dialysis treatments at times He currently is somewhat irritated and is wanting to go home and is not willing to provide much in terms of details of what brought him to the hospital. I have reviewed his records and it appears that he developed chest pain 30 minutes short of his and time on dialysis. His troponins are currently negative. His chest x-ray did reveal some amount of possibly chronic pleural effusions. He denies chest pain or shortness of breath at this time and wants to go home. Past Medical History Cardiovascular: CAD, HTN, Hyperlipidemia Pulmonary: Other GI: GERD Heme/Onc: Anemia NOS Psych: Depression Renal/: Chronic renal failure Endocrine: Diabetes, Hypothyroidism, Hyperparathyroidism Past Surgical History Past Surgical History: Other Family History Family History: Diabetes, Hypertension Social History No ALCOHOL: none Drugs: None Lives: with Family Current Problem List Problem List Problems Medical Problems: (1) Chest pain Status: Acute Current Medications Current Medications Current Medications Aspirin (Children'S Aspirin) 324 mg 1X ONCE PO ; Start 07/06/19 at 10:00; Stop 07/06/19 at 10:07; Status DC Ondansetron HCl (Zofran) 4 mg PRN Q8HRS PRN IV NAUSEA/VOMITING; Start 07/06/19 at 11:00; Stop 07/07/19 at 09:45; Status DC Morphine Sulfate (Morphine Sulfate) 2 mg PRN Q2HR PRN IV PAIN; Start 07/06/19 at 11:00; Stop 07/07/19 at 10:59; Status DC Nitroglycerin (Nitrostat) 0.4 mg PRN Q5MIN PRN SL CHEST PAIN; Start 07/06/19 at 11:00; Stop 07/07/19 at 10:59; Status DC Albuterol/ Ipratropium (Duoneb) 3 ml RTQID NEB Last administered on 07/07/19at 07:33; Start 07/06/19 at 12:00; Stop 07/07/19 at 09:45; Status DC Sodium Chloride (Normal Saline Flush) 3 ml QSHIFT PRN IV AFTER MEDS AND BLOOD DRAWS; Start 07/06/19 at 13:45 Ondansetron HCl (Zofran) 4 mg PRN Q4HRS PRN IV NAUSEA/VOMITING; Start 07/06/19 at 13:45 Clonidine HCl (Catapres) 0.1 mg PRN Q6HRS PRN PO SBP>160 OR DBP>90; Start 07/06/19 at 13:45 Docusate Sodium (Colace) 100 mg PRN BID PRN PO CONSTIPATION; Start 07/06/19 at 13:45 Albuterol Sulfate (Ventolin Neb Soln) 2.5 mg PRN Q4HRS PRN NEB SHORTNESS OF BREATH; Start 07/06/19 at 13:45 Guaifenesin (Robitussin) 200 mg PRN Q4HRS PRN PO COUGH; Start 07/06/19 at 13:45 Lorazepam (Ativan) 0.5 mg PRN Q4HRS PRN PO ANXIETY / AGITATION; Start 07/06/19 at 13:45 Acetaminophen (Tylenol) 650 mg PRN Q6HRS PO ; Start 07/06/19 at 13:45 Amlodipine Besylate (Norvasc) 10 mg DAILY PO Last administered on 07/07/19at 09:22; Start 07/06/19 at 14:00 Aspirin (Children'S Aspirin) 81 mg DAILYWBKFT PO Last administered on 07/07/19at 09:22; Start 07/06/19 at 14:00 Atorvastatin Calcium (Lipitor) 5 mg QHS PO Last administered on 07/06/19at 21:11; Start 07/06/19 at 21:00 Budesonide (Pulmicort) 0.5 mg RTBID NEB Last administered on 07/07/19at 07:33; Start 07/06/19 at 20:00 Clopidogrel Bisulfate (Plavix) 75 mg DAILY PO Last administered on 07/07/19at 09:22; Start 07/06/19 at 14:00 Ferrous Sulfate (Feosol) 325 mg DAILY08 PO Last administered on 07/07/19 09: 21; Start 07/06/19 at 14:00 Furosemide (Lasix) 80 mg BID92 PO Last administered on 07/07/19 09:21; Start 07/06/19 at 14:00 Hydralazine HCl (Apresoline) 10 mg TID PO Last administered on 07/07/19 09:22; Start 07/06/19 at 14:00 Insulin Human Lispro (HumaLOG) 9 units TIDWMEALS SQ Last administered on 07/06/19 21:16; Start 07/06/19 at 17:00 Albuterol/ Ipratropium (Duoneb) 3 ml RTQID NEB Last administered on 07/07/19 11:49; Start 07/06/19 at 16:00 Lisinopril (Prinivil) 20 mg DAILY PO Last administered on 07/07/19 09:24; Start 07/06/19 at 14:00 Metoprolol Succinate (Toprol Xl) 12.5 mg DAILY PO Last administered on 09:23; Start 07/06/19 at 14:00 Trazodone HCl (Desyrel) 100 mg PRN QHS PRN PO INSOMNIA; Start 07/06/19 at 13:45 Calcium Acetate (Phoslo) 667 mg TIDWMEALS PO Last administered on 07/07/19 09:21; Start 07/06/19 at 17:00 Insulin Glargine (Lantus Syringe) 15 unit QHS SQ ; Start 07/06/19 at 21:00 Levothyroxine Sodium (Synthroid) 300 mcg DAILY06 PO Last administered on 1 06:18; Start 07/06/19 at 15:30 Fish Oil (Fish Oil) 1,000 mg DAILY PO Last administered on 07/07/19 09:22; Start 07/06/19 at 14:00 Pantoprazole Sodium (Protonix) 40 mg DAILYAC PO Last administered on 07/07/19 09:22; Start 07/06/19 at 16:30 Vitamin B Complex/ Vitamin C (Madai-Sean) 1 tab DAILY PO Last administered on 07/07/19 09:22; Start 07/06/19 at 14:00 Heparin Sodium (Porcine) (Heparin Sodium) 5,000 unit Q8HRS SQ Last administered on 07/07/19at 06:21; Start 07/06/19 at 15:30 Hydralazine HCl (Apresoline Inj) 10 mg PRN Q4HRS PRN IVP ELEVATED BP, SEE COMMENTS; Start 07/06/19 at 15:30 Loperamide HCl (Imodium) 2 mg 1X ONCE PO Last administered on 07/06/19at 22:12; Start 07/06/19 at 22:30; Stop 07/06/19 at 22:31; Status DC Insulin Human Lispro (HumaLOG) 9 units 1X SQ ; Start 07/07/19 at 08:30 Active Scripts Active Humalog (Insulin Lispro) 100 Unit/1 Ml Insuln.pen 9 Units SQ TIDWMEALS 30 Days Atorvastatin Calcium 10 Mg Tablet 5 Mg PO QHS 30 Days Hydralazine Hcl 10 Mg Tablet 10 Mg PO TID MDD 1 Amlodipine Besylate 10 Mg Tablet 10 Mg PO DAILY MDD 1 Lisinopril 40 Mg Tablet 20 Mg PO DAILY MDD 1 [Pantoprazole] 40 MG Tablet.dr 40 Mg PO DAILYAC 30 Days Trazodone Hcl 100 Mg Tablet 100 Mg PO PRN QHS PRN 30 Days Lantus Solostar (Insulin Glargine,Hum.rec.anlog) 100 Unit/1 Ml Insuln.pen 15 Units SQ QHS 30 Days Budesonide 0.5 Mg/2 Ml Ampul.neb 0.5 Mg NEB RTBID 30 Days Aspirin 81 Mg Tab.chew 81 Mg PO DAILYWBKFT 30 Days Duoneb 0.5-3(2.5) Mg/3 Ml (Albuterol/Ipratropium) 3 Ml Ampul.neb 3 Ml NEB RTQID 30 Days Reported Zithromax (Azithromycin) 250 Mg Tablet 1 Pkg PO UD Levothyroxine Sodium 300 Mcg Tablet 300 Mcg PO DAILYAC Clopidogrel (Clopidogrel Bisulfate) 75 Mg Tablet 1 Tab PO DAILY Furosemide 80 Mg Tablet 80 Mg PO BID Howes 3 Fish Oil Softgel (Howes-3 Fatty Acids/Fish Oil) 1 Each Capsule.dr 1 Each PO DAILY Toprol Xl (Metoprolol Succinate) 25 Mg Tab.er.24h 0.5 Tab PO DAILY Calcium Acetate 667 Mg Tablet 667 Mg PO TIDWMEALS Tylenol (Acetaminophen) 325 Mg Tablet 650 Mg PO PRN Q6HRS Ferrous Sulfate 325 Mg Tablet 1 Tab PO DAILY Dialyvite Tablet (Folic Acid/Vitamin B Comp W-C) 1 Each Tablet 1 Each PO Allergies Allergies: Coded Allergies: No Known Drug Allergies (Unverified , 02/16/19) ROS Review of System History of systems as outlined under history of present illness otherwise 14 point review of systems was attempted with the patient however he was not very forthcoming with answers and became easily irritable Physical Exam Physical Exam General Appearance: Awake Alert Oriented x ? (Not cooperative with questions) In no visible Distress Eyes: VIsion Unchanged Conjunctiva Normal EN: No EN Drainage Mucous Memb. moist Neck: no JVD no JVP Supple no Thyromegaly CVS: S1 S2 + Murmur No Gallop No Rub +2 Edema Resp: few basal lorie Rales no Rhonchi no Acc. Muscle use GI: BAS +ve NO Bruit Non Tender Non Distended : no CVA tenderness; no Suprapubic Tenderness SKIN: no Rashes Breast Exam deferred Mu.Sk: Adequate ROM (not very cooperative) no Muscle Atrophy Heme: Unable to palpate Obvious LAD no palp Splenomegaly NEURO: Good Strength and Tone Cranial Nerves II - XII grossly intact Psych: ? Depressed no Active hallucination Vital Signs Vital Signs Date Time Temp Pulse Resp B/P (MAP) Pulse Ox O2 Delivery O2 Flow Rate FiO2 07/07/19 11:50 94 Nasal Cannula 5.0 07/07/19 11:03 99.0 73 18 164/72 (102) 99.0 Assessment & Plan ESRD: I have offered patient at next around off Dialysis to edema as well as pleural effusions: Patient declined and tells me he is going home : " Goodbye" . Will re-evaluate for Dialysis in am if he is still here Possible fluid overload: As above lower extremity edema: Some of this is chronic and it is unclear to me if this related to his previously poorly controlled thyroid disease as noted by a TSH of 33.6 Anemia of chronic kidney disease: We'll provide Epogen after dialysis if patient is urinating Tuesday. Transfuse with next HD as needed partially if hemoglobin less than 7 HTN: Current BP meds reviewed. See orders for changes. Bone & Mineral: We'll follow phosphorus levels and alter binder regimen as needed while patient is here Chest Pain: Patient is known to have three-vessel coronary artery disease in the past. Return cardiology reports it appears he has declined further evaluation. I believe it would be a poor decision on his part if he decides to leave without fluid status optimization however he is adamant to leave Labs Labs Laboratory Tests Test 07/06/19 10:00 07/06/19 12:38 07/06/19 12:45 07/06/19 17:14 White Blood Count 4.6 x10^3/uL (4.0-11.0) Red Blood Count 3.18 x10^6/uL (4.30-5.70) Hemoglobin 9.7 g/dL (13.0-17.5) Hematocrit 29.0 % (39.0-53.0) Mean Corpuscular Volume 91 fL (79-100) Mean Corpuscular Hemoglobin 30 pg (25-35) Mean Corpuscular Hemoglobin Concent 33 g/dL (31-37) Red Cell Distribution Width 18.2 % (11.5-14.5) Platelet Count 146 x10^3/uL (140-400) Neutrophils (%) (Auto) 66 % (31-73) Lymphocytes (%) (Auto) 19 % (24-48) Monocytes (%) (Auto) 6 % (0-9) Eosinophils (%) (Auto) 7 % (0-3) Basophils (%) (Auto) 2 % (0-3) Neutrophils # (Auto) 3.0 x10^3/uL (1.8-7.7) Lymphocytes # (Auto) 0.9 x10^3/uL (1.0-4.8) Monocytes # (Auto) 0.3 x10^3/uL (0.0-1.1) Eosinophils # (Auto) 0.3 x10^3/uL (0.0-0.7) Basophils # (Auto) 0.1 x10^3/uL (0.0-0.2) Sodium Level 143 mmol/L (136-145) Potassium Level 3.7 mmol/L (3.5-5.1) Chloride Level 99 mmol/L (98-107) Carbon Dioxide Level 34 mmol/L (21-32) Anion Gap 10 (6-14) Blood Urea Nitrogen 14 mg/dL (8-26) Creatinine 2.8 mg/dL (0.7-1.3) Estimated GFR (Cockcroft-Gault) 23.5 BUN/Creatinine Ratio 5 (6-20) Glucose Level 180 mg/dL (70-99) Calcium Level 8.8 mg/dL (8.5-10.1) Total Bilirubin 0.7 mg/dL (0.2-1.0) Aspartate Amino Transf (AST/SGOT) 17 U/L (15-37) Alanine Aminotransferase (ALT/SGPT) 10 U/L (16-63) Alkaline Phosphatase 152 U/L (46-116) Troponin I Quantitative < 0.017 ng/mL (0.000-0.055) < 0.017 ng/mL (0.000-0.055) Total Protein 6.7 g/dL (6.4-8.2) Albumin 3.3 g/dL (3.4-5.0) Albumin/Globulin Ratio 1.0 (1.0-1.7) Glucose (Fingerstick) 255 mg/dL (70-99) 442 mg/dL (70-99) Test 07/06/19 20:39 07/07/19 04:10 07/07/19 07:52 Glucose (Fingerstick) 382 mg/dL (70-99) 167 mg/dL (70-99) White Blood Count 6.3 x10^3/uL (4.0-11.0) Red Blood Count 2.95 x10^6/uL (4.30-5.70) Hemoglobin 8.9 g/dL (13.0-17.5) Hematocrit 27.3 % (39.0-53.0) Mean Corpuscular Volume 93 fL (79-100) Mean Corpuscular Hemoglobin 30 pg (25-35) Mean Corpuscular Hemoglobin Concent 33 g/dL (31-37) Red Cell Distribution Width 18.5 % (11.5-14.5) Platelet Count 128 x10^3/uL (140-400) Neutrophils (%) (Auto) 67 % (31-73) Lymphocytes (%) (Auto) 19 % (24-48) Monocytes (%) (Auto) 8 % (0-9) Eosinophils (%) (Auto) 5 % (0-3) Basophils (%) (Auto) 2 % (0-3) Neutrophils # (Auto) 4.2 x10^3/uL (1.8-7.7) Lymphocytes # (Auto) 1.2 x10^3/uL (1.0-4.8) Monocytes # (Auto) 0.5 x10^3/uL (0.0-1.1) Eosinophils # (Auto) 0.3 x10^3/uL (0.0-0.7) Basophils # (Auto) 0.1 x10^3/uL (0.0-0.2) Sodium Level 143 mmol/L (136-145) Potassium Level 3.8 mmol/L (3.5-5.1) Chloride Level 101 mmol/L (98-107) Carbon Dioxide Level 33 mmol/L (21-32) Anion Gap 9 (6-14) Blood Urea Nitrogen 26 mg/dL (8-26) Creatinine 3.9 mg/dL (0.7-1.3) Estimated GFR (Cockcroft-Gault) 16.0 BUN/Creatinine Ratio 7 (6-20) Glucose Level 94 mg/dL (70-99) Calcium Level 8.6 mg/dL (8.5-10.1) Total Bilirubin 0.5 mg/dL (0.2-1.0) Aspartate Amino Transf (AST/SGOT) 14 U/L (15-37) Alanine Aminotransferase (ALT/SGPT) 10 U/L (16-63) Alkaline Phosphatase 126 U/L (46-116) Total Protein 6.6 g/dL (6.4-8.2) Albumin 3.0 g/dL (3.4-5.0) Albumin/Globulin Ratio 0.8 (1.0-1.7) Thyroid Stimulating Hormone (TSH) 33.604 uIU/mL (0.358-3.74) Free Thyroxine 1.16 ng/dL (0.76-1.46) Laboratory Tests Test 07/06/19 12:38 07/06/19 12:45 07/06/19 17:14 07/06/19 20:39 Glucose (Fingerstick) 255 mg/dL (70-99) 442 mg/dL (70-99) 382 mg/dL (70-99) Troponin I Quantitative < 0.017 ng/mL (0.000-0.055) Test 07/07/19 04:10 07/07/19 07:52 White Blood Count 6.3 x10^3/uL (4.0-11.0) Red Blood Count 2.95 x10^6/uL (4.30-5.70) Hemoglobin 8.9 g/dL (13.0-17.5) Hematocrit 27.3 % (39.0-53.0) Mean Corpuscular Volume 93 fL (79-100) Mean Corpuscular Hemoglobin 30 pg (25-35) Mean Corpuscular Hemoglobin Concent 33 g/dL (31-37) Red Cell Distribution Width 18.5 % (11.5-14.5) Platelet Count 128 x10^3/uL (140-400) Neutrophils (%) (Auto) 67 % (31-73) Lymphocytes (%) (Auto) 19 % (24-48) Monocytes (%) (Auto) 8 % (0-9) Eosinophils (%) (Auto) 5 % (0-3) Basophils (%) (Auto) 2 % (0-3) Neutrophils # (Auto) 4.2 x10^3/uL (1.8-7.7) Lymphocytes # (Auto) 1.2 x10^3/uL (1.0-4.8) Monocytes # (Auto) 0.5 x10^3/uL (0.0-1.1) Eosinophils # (Auto) 0.3 x10^3/uL (0.0-0.7) Basophils # (Auto) 0.1 x10^3/uL (0.0-0.2) Sodium Level 143 mmol/L (136-145) Potassium Level 3.8 mmol/L (3.5-5.1) Chloride Level 101 mmol/L (98-107) Carbon Dioxide Level 33 mmol/L (21-32) Anion Gap 9 (6-14) Blood Urea Nitrogen 26 mg/dL (8-26) Creatinine 3.9 mg/dL (0.7-1.3) Estimated GFR (Cockcroft-Gault) 16.0 BUN/Creatinine Ratio 7 (6-20) Glucose Level 94 mg/dL (70-99) Calcium Level 8.6 mg/dL (8.5-10.1) Total Bilirubin 0.5 mg/dL (0.2-1.0) Aspartate Amino Transf (AST/SGOT) 14 U/L (15-37) Alanine Aminotransferase (ALT/SGPT) 10 U/L (16-63) Alkaline Phosphatase 126 U/L (46-116) Total Protein 6.6 g/dL (6.4-8.2) Albumin 3.0 g/dL (3.4-5.0) Albumin/Globulin Ratio 0.8 (1.0-1.7) Thyroid Stimulating Hormone (TSH) 33.604 uIU/mL (0.358-3.74) Free Thyroxine 1.16 ng/dL (0.76-1.46) Glucose (Fingerstick) 167 mg/dL (70-99) Review All relevant outside records, renal labs, imaging studies, telemetry/EKG's were reviewed. Images Images IMPRESSION: Chronic pleural effusions and lung infiltrates bilaterally which have improved since April 24, 2019. This could be due to chronic CHF. CHARLES KOROMA MD Jul 07, 2019 12:12
--- NOTE | 2019-07-07 12:17 | NUR ---
Discharge Note: BENJA ANGULO Discharge instructions and discharge home medications reviewed with Patient and a copy given. All questions have been answered and understanding verbalized. The following instructions and handouts were given: chest pain Patient discharged to home with spouse via wheelchair
--- NOTE | 2019-07-09 11:24 | CARD ---
MR#: [id number] Date of Study: 07/06/2019 Ordering Physician: PABLO SHERMAN, Referring Physician: PABLO SHERMAN, Tech: Mirella Fonseca APPROVED REPORT EXAM: Two-dimensional and M-mode echocardiogram with Doppler and color Doppler. Other Information Quality : GoodHR: 68bpm INDICATION COPD Dyspnea Cardiac Disease: CAD Chest Pain Congestive Heart Failure RISK FACTORS Hypertension Hyperlipidemia Diabetes Smoking 2D DIMENSIONS RVDd3.7 (2.9-3.5cm)Left Atrium(2D)4.3 (1.6-4.0cm) IVSd1.3 (0.7-1.1cm)Aortic Root(2D)3.3 (2.0-3.7cm) LVDd6.1 (3.9-5.9cm)PWd1.2 (0.7-1.1cm) LVDs4.2 (2.5-4.0cm)FS (%) 30.3 % SV105.1 mlLVEF(%)56.7 (>50%) LEFT VENTRICLE Limited study to evaluate LV function. The left ventricle is normal size. There is mild concentric le ft ventricular hypertrophy. The left ventricular systolic function is normal and the ejection fractio n is within normal range. The Ejection Fraction is 50-55%. There is normal LV segmental wall motion. Diastology not performed. RIGHT VENTRICLE The right ventricle is normal size. There is normal right ventricular wall thickness. The right ventr icular systolic function is normal. ATRIA The left atrium is mildly dilated. The right atrium is mildly dilated. The interatrial septum is inta ct with no evidence for an atrial septal defect or patent foramen ovale as noted on 2-D or Doppler im aging. AORTIC VALVE The aortic valve is calcified but opens well. Doppler and color-flow analysis was not performed. Ther e is no significant aortic valvular stenosis. MITRAL VALVE The mitral valve is normal in structure and function. There is no evidence of mitral valve prolapse. There is no mitral valve stenosis. Doppler and color-flow analysis was not performed. TRICUSPID VALVE The tricuspid valve is normal in structure and function. Doppler and color-flow analysis was not perf ormed. There is no tricuspid valve prolapse or vegetation. There is no tricuspid valve stenosis. PULMONIC VALVE The pulmonic valve is not well visualized. Doppler and color-flow analysis was not performed. GREAT VESSELS The aortic root is normal in size. The IVC is dilated. PERICARDIAL EFFUSION There is no evidence of significant pericardial effusion. Critical Notification Critical Value: No <Conclusion> Limited study to evaluate LV function. The left ventricle is normal size. The left ventricular systolic function is normal and the ejection fraction is within normal range. The Ejection Fraction is 50-55%. There is mild concentric left ventricular hypertrophy. There is no significant aortic valvular stenosis. There is no mitral valve stenosis. There is no evidence of significant pericardial effusion. Signed by : Pedrito Schuster MD Electronically Approved : 07/06/2019 15:08:03
== END 2019-07-07 12:19 | disposition home or self-care (01) ==
LOC: ER 09:44 → 2 NORTH 11:00
PROVIDERS: ADMIT Family Medicine; ATTEND Family Medicine
DX: I25.119 Atherosclerotic heart disease of native coronary artery with unspecified angina pectoris (principal); J44.9 Chronic obstructive pulmonary disease, unspecified; J90 Pleural effusion, not elsewhere classified; I13.2 Hypertensive heart and chronic kidney disease with heart failure and with stage 5 chronic kidney disease, or end stage renal disease; E10.22 Type 1 diabetes mellitus with diabetic chronic kidney disease; I50.9 Heart failure, unspecified; J96.10 Chronic respiratory failure, unspecified whether with hypoxia or hypercapnia; E78.5 Hyperlipidemia, unspecified; K21.9 Gastro-esophageal reflux disease without esophagitis; E21.3 Hyperparathyroidism, unspecified; E03.9 Hypothyroidism, unspecified; Z87.891 Personal history of nicotine dependence; Z82.49 Family history of ischemic heart disease and other diseases of the circulatory system; Z83.3 Family history of diabetes mellitus; Z91.11 Patient's noncompliance with dietary regimen; D64.9 Anemia, unspecified; F32.9 Major depressive disorder, single episode, unspecified; I46.9 Cardiac arrest, cause unspecified; Z99.2 Dependence on renal dialysis; Z79.4 Long term (current) use of insulin; Z95.5 Presence of coronary angioplasty implant and graft; N18.6 End stage renal disease; R59.0 Localized enlarged lymph nodes
CPT/HCPCS: 36415; 71045; 78582; 80053; 82962; 84439; 84443; 84484; 85025; 93005; 93308; 94640; 94760; 96372; 99284; A9540; A9558; G0378; J1644; J1815; J7620; J7626; 96374; G0379

== ENCOUNTER 2019-07-15 20:29 | Inpatient (IN) | payer MEDICARE ==
[~2019-07-15] VITALS: Ht 175.3 cm; Wt 88.5 kg
[2019-07-15] MEDS ORDERED: methylPREDNISolone SOD SUCC PF 125 MG/2 ML VIAL. IV ONE (20:45)
[2019-07-15] MEDS ORDERED: IPRATRPIUM/ALBUTEROL 0.5/2.5MG 3 ML NEBU. NEB ONE (20:45)
[2019-07-15 20:55] LABS: BASO # 0.1 x10^3/uL (0.0-0.2); BASO % 3 % (0-3); EOS # 0.4 x10^3/uL (0.0-0.7); EOS % 11 % (0-3); HEMATOCRIT 31.7 % (39.0-53.0); LYMPH # 0.8 x10^3/uL (1.0-4.8); LYMPH % 22 % (24-48); MEAN CORPUSCULAR HEMOGLOBIN 30 pg (25-35); MEAN CORPUSCULAR HGB CONC 32 g/dL (31-37); MEAN CORPUSCULAR VOLUME 96 fL (79-100); MONO # 0.3 x10^3/uL (0.0-1.1); MONO % 8 % (0-9); NEUT % 56 % (31-73); PLATELET COUNT 142 x10^3/uL (140-400); RED BLOOD COUNT 3.31 x10^6/uL (4.30-5.70); RED CELL DISTRIBUTION WIDTH 19.2 % (11.5-14.5); WHITE BLOOD COUNT 3.6 x10^3/uL (4.0-11.0)
[2019-07-15 21:27] LABS: ALBUMIN 3.3 g/dL (3.4-5.0); ALBUMIN/GLOBULIN RATIO 0.8 (1.0-1.7); CALCIUM 8.9 mg/dL (8.5-10.1); CREATININE 5.5 mg/dL (0.7-1.3); GFR 10.8; MAGNESIUM 2.2 mg/dL (1.8-2.4); POTASSIUM 4.4 mmol/L (3.5-5.1); TOTAL BILIRUBIN 0.8 mg/dL (0.2-1.0); TOTAL PROTEIN 7.4 g/dL (6.4-8.2)
--- NOTE | 2019-07-15 21:27 | PHYS DOC ---
Past Medical History Past Medical History: CAD, COPD, Diabetes-Type I, Heart Disease, Hypertension, Renal Failure Additional Past Medical Histor: CARDIAC ARREST DURING DIALYSIS 09/12 Past Surgical History: No Surgical History Additional Past Surgical Histo: AV SHUNT RUE, CARDIAC STENT Smoking: Cigarettes, 1 Pack Per Day Alcohol Use: Rarely Drug Use: None Adult General Chief Complaint Chief Complaint: SHORTNESS OF BREATH HPI HPI Patient is a 59 year old male patient with history of chronic renal failure on dialysis and COPD on 4 L of home oxygen and currently smoking who presents via POV without wearing his oxygen with complaining of shortness of breath. Patient complaining of shortness of breath for the last 4 days that getting worse with supine position and mild activity. Patient complaining of chronic cough without new change and denies chest pain, fever and chills, nausea and vomiting and sick contact. Patient O2 sat of 65 at arrival to ER at room air. Review of Systems Review of Systems Constitutional: Denies fever or chills [] Eyes: Denies change in visual acuity, redness, or eye pain [] HENT: Denies nasal congestion or sore throat [] Respiratory: Reports cough and shortness of breath Cardiovascular: No additional information not addressed in HPI [] GI: Denies abdominal pain, nausea, vomiting, bloody stools or diarrhea [] : Denies dysuria or hematuria [] Musculoskeletal: Denies back pain or joint pain [] Integument: Denies rash or skin lesions [] Neurologic: Denies headache, focal weakness or sensory changes [] Endocrine: Denies polyuria or polydipsia [] All other systems were reviewed and found to be within normal limits, except as documented in this note. Current Medications Current Medications Allergies Allergies Allergies Coded Allergies Type Severity Reaction Last Updated Verified No Known Drug Allergies 02/16/19 No Physical Exam Physical Exam Constitutional: Well developed, moderate distress, non-toxic appearance. [] HENT: Normocephalic, atraumatic. Eyes: PERRLA, EOMI, conjunctiva normal, no discharge. [] Neck: Normal range of motion, no tenderness, supple, no stridor. [] Cardiovascular:Heart rate regular rhythm, no murmur [] Lungs & Thorax: Respiratory distress with decrease of air movement in right basilar and bilateral rales] Abdomen: Bowel sounds normal, soft, no tenderness, no masses, no pulsatile masses. [] Skin: Warm, dry, no erythema, no rash. [] Back: No tenderness, no CVA tenderness. [] Extremities: No tenderness, no cyanosis, no clubbing, ROM intact, bilateral lower extremity 2+ edema Neurologic: Alert and oriented X 3, no focal deficits noted. [] Psychologic: Affect normal, judgement normal, mood normal. [] Current Patient Data Vital Signs Vital Signs Date Time Temp Pulse Resp B/P (MAP) Pulse Ox O2 Delivery O2 Flow Rate FiO2 07/15/19 20:43 90 Nasal Cannula 4.0 07/15/19 20:32 64 22 173/75 (107) 07/15/19 20:30 97.4 97.4 EKG EKG EKG interpreted by me. EKG at 2034 showed sinus rhythm at rate of 71, incomplete right bundle-branch block, right ventricular hypertrophy, poor R-wave progress in anteroseptal leads, no acute ST and T-wave abnormalities. Radiology/Procedures Radiology/Procedures [][facility] [address] [place] [address] IMAGING REPORT Signed PATIENT: SEBASTIAN ANGULO ACCOUNT: [id number] : 1960 LOCATION: [address] [place] [address] AGE: 59 SEX: M EXAM STATUS: ADM IN ORD. PHYSICIAN: CHULA BARKER MD REASON: shortness of breath PROCEDURE: PORTABLE CHEST 1V PORTABLE CHEST 1V 07/15/2019 8:37 PM INDICATION: Shortness of breath COMPARISON: 07/06/2019 TECHNIQUE: Portable frontal view of the chest is provided. FINDINGS: The cardiomediastinal silhouette is similar in appearance. Increase in small to moderate right pleural effusion. Stable small left pleural effusion tracking along the left lateral chest wall. There is adjacent compressive atelectasis versus infiltrate. Mild pulmonary vascular congestion, stable. No pneumothorax. Right axillary/subclavian stent graft is noted. IMPRESSION: Increase in small to moderate right pleural effusion tracking along the minor fissure. No definite pneumothorax. Electronically signed by: Jay Ramírez MD (07/15/2019 10:34 PM) [facility] [id number] DICTATED and SIGNED BY: JAY RAMÍREZ MD DATE: 07/15/192233 Course & Med Decision Making Course & Med Decision Making Pertinent Labs and Imaging studies reviewed. (See chart for details) Evaluation of patient in ER showed 59-year-old male patient with chronic renal failure and dialyzes with complaining of shortness of breath. Patient did not bring his home 4 L of oxygen and had O2 sats of 65% at arrival to ER that improved to starting nasal cannula. ABG showed O2 sats of 86% on oxygen and patient was started on venturi mask with improvement of oxygen to more than 90%. Patient had blood sugar of more than 700 and treated with insulin bolus and drip. IV fluid was not given because of chronic renal failure on dialysis. Lactic was negative.Patient requiring admission for further evaluation and treatment. Discussed with Dr. Oneil who is in agreement with admission. Discussed findings and plan with patient and family, who acknowledge understanding and agreement. Dragon Disclaimer Dragon Disclaimer This electronic medical record was generated, in whole or in part, using a voice recognition dictation system. Departure Departure Impression: Primary Impression: Acute respiratory distress Additional Impressions: Hypoxia ESRD (end stage renal disease) Anemia due to end stage renal disease CHF exacerbation Hyperglycemia Uncontrolled diabetes mellitus Disposition: ADMITTED INPATIENT (at 2130) Admitting Physician: AYDEN (Dr Oneil accepted admission) Condition: IMPROVED Referrals: SOLO NUNO MD (PCP) Problem Qualifiers Additional Impressions: CHF exacerbation Heart failure type: unspecified Qualified Codes: I50.9 - Heart failure, unspecified Uncontrolled diabetes mellitus Diabetes mellitus type: other specified (including SARAVANAN) Glycemic state: with hyperglycemia Qualified Codes: E13.65 - Other specified diabetes mellitus with hyperglycemia CHULA BARKER MD Jul 15, 2019 21:26
[2019-07-15 21:28] LABS: BASE EXCESS ABG 2 mmol/L (-3-3); HCO3 ABG 28 mmol/L (21-28); PCO2 ABG 51 mmHg (35-46); PO2 ABG 53 mmHg (75-108); SAT O2 ABG 86 % (92-99)
[2019-07-15 21:29] LABS: FIO2 ABG 36
[2019-07-15] MEDS ORDERED: cefTRIAXone IV Push 1 GM VIAL. IVP ONE (21:30)
[2019-07-15 21:44] LABS: % BASOS 4 % (0-3); % EOS 15 % (0-5); % LYMPHS 17 % (24-48); % MONOS 3 % (0-10); % SEGS 61 % (35-66)
[2019-07-15] MEDS ORDERED: INSULIN REGULAR 100 UNIT/ML 3ML VIAL. IV ONE (21:45)
[2019-07-15] MEDS ORDERED: DEXTROSE 50% 25 GM / 50ML DISP.SYRIN. IV PRN (21:45)
[2019-07-15 21:47] VITALS: BP 181/83
[2019-07-15 21:47] LABS: ANISOCYTOSIS SLIGHT; PLT ESTIMATE ADEQUATE (ADEQUATE); POLYCHROMASIA SLIGHT; TOXIC GRANULATION MOD
[2019-07-15] MEDS: INSULIN REGULAR VIAL 150 UNIT in 0.9 % SODIUM CHLORIDE 150ML 150 ML IV PRN (22:26)
--- NOTE | 2019-07-15 22:37 | RAD ---
PORTABLE CHEST 1V 07/15/2019 8:37 PM INDICATION: Shortness of breath COMPARISON: 07/06/2019 TECHNIQUE: Portable frontal view of the chest is provided. FINDINGS: The cardiomediastinal silhouette is similar in appearance. Increase in small to moderate right pleural effusion. Stable small left pleural effusion tracking along the left lateral chest wall. There is adjacent compressive atelectasis versus infiltrate. Mild pulmonary vascular congestion, stable. No pneumothorax. Right axillary/subclavian stent graft is noted. IMPRESSION: Increase in small to moderate right pleural effusion tracking along the minor fissure. No definite pneumothorax. Electronically signed by: Clarissa Roman MD (07/15/2019 10:34 PM) [facility]
[2019-07-15 23:30] VITALS: BP 196/73
[2019-07-16 03:53] VITALS: BP 153/66
[2019-07-16 07:30] VITALS: BP 184/80
--- NOTE | 2019-07-16 07:41 | EKG ---
[facility] [address] [place] [address] Test Date: 2019-07-15 Test Time: 20:35:57 Pat Name: SEBASTIAN ANGULO Department: Room: Gender: M Senior Resident Care Director: : 1960 Requested By: CHULA BARKER Order Number: [id number] Reading MD: Measurements Intervals Hammond Rate: 71 P: AR: QRS: 136 QRSD: 118 T: 48 QT: 454 QTc: 493 Interpretive Statements IRREGULAR RHYTHM, NO P-WAVE FOUND INCOMPLETE RIGHT BUNDLE BRANCH BLOCK RIGHT VENTRICULAR HYPERTROPHY QRS(T) CONTOUR ABNORMALITY CONSIDER ANTEROSEPTAL MYOCARDIAL DAMAGE CONSIDER INFERIOR MYOCARDIAL DAMAGE PROLONGED QT ABNORMAL ECG RI6.01 No previous ECG available for comparison
[2019-07-16] MEDS: INSULIN REGULAR VIAL 150 UNIT in 0.9 % SODIUM CHLORIDE 150ML 150 ML IV PRN (07:47)
[2019-07-16] MEDS ORDERED: ACETAMINOPHEN 325 MG TABLET. PO PRN (08:45)
[2019-07-16] MEDS ORDERED: traZODone 100 MG TABLET. PO PRN (08:45)
--- NOTE | 2019-07-16 08:45 | PDOC1 ---
History and Physical Date of Admission Date of Admission DATE: 07/16/19 TIME: 08:44 History of Present Illness History of Present Illness Mr. morales, is a 59 year old male patient with history of chronic renal failure on dialysis and COPD on 4 L of home oxygen and currently smoking who presents via POV without wearing his oxygen with complaining of shortness of breath. Patient complaining of shortness of breath for the last 4 days that getting worse with supine position and mild activity. Patient complaining of chronic cough without new change and denies chest pain, fever and chills, nausea and vomiting and sick contact. Patient O2 sat of 65 at arrival to ER at room air. Past Medical History Cardiovascular: CAD, HTN, Hyperlipidemia Pulmonary: Other GI: GERD Heme/Onc: Anemia NOS Psych: Depression Renal/: Chronic renal failure Endocrine: Diabetes, Hypothyroidism, Hyperparathyroidism Past Surgical History Past Surgical History: Other Family History Family History: Diabetes, Hypertension Social History Smoke: <1 pack per day ALCOHOL: none Drugs: None Current Problem List Problem List Problems Medical Problems: (1) Anemia due to end stage renal disease Status: Acute (2) CHF exacerbation Status: Acute (3) Uncontrolled diabetes mellitus Status: Acute Current Medications Current Medications Current Medications Albuterol/ Ipratropium (Duoneb) 3 ml 1X ONCE NEB Last administered on 07/15at 20:43; Start 07/15/19 at 20:45; Stop 07/15/19 at 20:46; Status DC Methylprednisolone Sodium Succinate (SOLU-Medrol 125MG VIAL) 125 mg 1X ONCE IV Last administered on 07/15/19at 21:03; Start 07/15/19 at 20:45; Stop 07/15/19 at 20:46; Status DC Ceftriaxone Sodium (Rocephin) 1 gm 1X ONCE IVP Last administered on 07/15/19at 22:37; Start 07/15/19 at 21:30; Stop 07/15/19 at 21:31; Status DC Insulin Human Regular (HumuLIN R VIAL) 10 unit 1X ONCE IV Last administered on 07/15/19at 22:29; Start 07/15/19 at 21:45; Stop 07/15/19 at 21:46; Status DC Insulin Human Regular 150 unit/ Sodium Chloride 151.5 ml @ 0 mls/hr CONT PRN IV SEE I/O RECORD Last administered on 07/16/19at 07:47; Start 07/15/19 at 21:45 Dextrose (Dextrose 50%-Water Syringe) 12.5 gm PRN Q15MIN PRN IV SEE COMMENTS; Start 07/15/19 at 21:45 Active Scripts Active Humalog (Insulin Lispro) 100 Unit/1 Ml Insuln.pen 9 Units SQ TIDWMEALS 30 Days Atorvastatin Calcium 10 Mg Tablet 5 Mg PO QHS 30 Days Hydralazine Hcl 10 Mg Tablet 10 Mg PO TID MDD 1 Amlodipine Besylate 10 Mg Tablet 10 Mg PO DAILY MDD 1 Lisinopril 40 Mg Tablet 20 Mg PO DAILY MDD 1 [Pantoprazole] 40 MG Tablet.dr 40 Mg PO DAILYAC 30 Days Trazodone Hcl 100 Mg Tablet 100 Mg PO PRN QHS PRN 30 Days Lantus Solostar (Insulin Glargine,Hum.rec.anlog) 100 Unit/1 Ml Insuln.pen 15 Units SQ QHS 30 Days Budesonide 0.5 Mg/2 Ml Ampul.neb 0.5 Mg NEB RTBID 30 Days Aspirin 81 Mg Tab.chew 81 Mg PO DAILYWBKFT 30 Days Duoneb 0.5-3(2.5) Mg/3 Ml (Albuterol/Ipratropium) 3 Ml Ampul.neb 3 Ml NEB RTQID 30 Days Reported Zithromax (Azithromycin) 250 Mg Tablet 1 Pkg PO UD Levothyroxine Sodium 300 Mcg Tablet 300 Mcg PO DAILYAC Clopidogrel (Clopidogrel Bisulfate) 75 Mg Tablet 1 Tab PO DAILY Furosemide 80 Mg Tablet 80 Mg PO BID [place] 3 Fish Oil Softgel ([place]-3 Fatty Acids/Fish Oil) 1 Each Capsule.dr 1 Each PO DAILY Toprol Xl (Metoprolol Succinate) 25 Mg Tab.er.24h 0.5 Tab PO DAILY Calcium Acetate 667 Mg Tablet 667 Mg PO TIDWMEALS Tylenol (Acetaminophen) 325 Mg Tablet 650 Mg PO PRN Q6HRS Ferrous Sulfate 325 Mg Tablet 1 Tab PO DAILY Dialyvite Tablet (Folic Acid/Vitamin B Comp W-C) 1 Each Tablet 1 Each PO Allergies Allergies: Coded Allergies: No Known Drug Allergies (Unverified , 02/16/19) Physical Exam General: Alert, Oriented X3, Cooperative, mild distress HEENT: Atraumatic, EOMI Lungs: Clear to auscultation, Normal air movement, Other (left base dull, rales) Heart: S1S2, RRR, no murmurs Extremities: No cyanosis, Other (2+ pedal edema, ) Skin: No breakdown Neuro: Normal speech, Normal tone, Sensation intact Psych/Mental Status: Mental status NL, Mood NL Vitals Vitals Vital Signs Date Time Temp Pulse Resp B/P (MAP) Pulse Ox O2 Delivery O2 Flow Rate FiO2 07/16/19 07:30 97.7 59 18 184/80 (114) 99 Nasal Cannula 4.0 97.7 Labs Labs Laboratory Tests Test 07/15/19 20:45 07/15/19 21:17 07/15/19 23:35 07/16/19 01:12 White Blood Count 3.6 x10^3/uL (4.0-11.0) Red Blood Count 3.31 x10^6/uL (4.30-5.70) Hemoglobin 10.0 g/dL (13.0-17.5) Hematocrit 31.7 % (39.0-53.0) Mean Corpuscular Volume 96 fL (79-100) Mean Corpuscular Hemoglobin 30 pg (25-35) Mean Corpuscular Hemoglobin Concent 32 g/dL (31-37) Red Cell Distribution Width 19.2 % (11.5-14.5) Platelet Count 142 x10^3/uL (140-400) Neutrophils (%) (Auto) 56 % (31-73) Lymphocytes (%) (Auto) 22 % (24-48) Monocytes (%) (Auto) 8 % (0-9) Eosinophils (%) (Auto) 11 % (0-3) Basophils (%) (Auto) 3 % (0-3) Neutrophils # (Auto) 2.0 x10^3/uL (1.8-7.7) Lymphocytes # (Auto) 0.8 x10^3/uL (1.0-4.8) Monocytes # (Auto) 0.3 x10^3/uL (0.0-1.1) Eosinophils # (Auto) 0.4 x10^3/uL (0.0-0.7) Basophils # (Auto) 0.1 x10^3/uL (0.0-0.2) Segmented Neutrophils % 61 % (35-66) Lymphocytes % 17 % (24-48) Monocytes % 3 % (0-10) Eosinophils % 15 % (0-5) Basophils % 4 % (0-3) Toxic Granulation Mod Platelet Estimate Adequate (ADEQUATE) Polychromasia Slight Anisocytosis Slight Sodium Level 135 mmol/L (136-145) Potassium Level 4.4 mmol/L (3.5-5.1) Chloride Level 93 mmol/L (98-107) Carbon Dioxide Level 28 mmol/L (21-32) Anion Gap 14 (6-14) Blood Urea Nitrogen 33 mg/dL (8-26) Creatinine 5.5 mg/dL (0.7-1.3) Estimated GFR (Cockcroft-Gault) 10.8 BUN/Creatinine Ratio 6 (6-20) Glucose Level 715 mg/dL (70-99) 631 mg/dL (70-99) Lactic Acid Level 0.9 mmol/L (0.4-2.0) Calcium Level 8.9 mg/dL (8.5-10.1) Magnesium Level 2.2 mg/dL (1.8-2.4) Total Bilirubin 0.8 mg/dL (0.2-1.0) Aspartate Amino Transf (AST/SGOT) 12 U/L (15-37) Alanine Aminotransferase (ALT/SGPT) 8 U/L (16-63) Alkaline Phosphatase 167 U/L (46-116) Creatine Kinase 34 U/L (39-308) Troponin I Quantitative < 0.017 ng/mL (0.000-0.055) WN-Ykj-S-Type Natriuretic Peptide > 04107 pg/mL (0-124) Total Protein 7.4 g/dL (6.4-8.2) Albumin 3.3 g/dL (3.4-5.0) Albumin/Globulin Ratio 0.8 (1.0-1.7) O2 Saturation 86 % (92-99) Arterial Blood pH 7.36 (7.35-7.45) Arterial Blood pCO2 at Patient Temp 51 mmHg (35-46) Arterial Blood pO2 at Patient Temp 53 mmHg (75-108) Arterial Blood HCO3 28 mmol/L (21-28) Arterial Blood Base Excess 2 mmol/L (-3-3) FiO2 36 Glucose (Fingerstick) 518 mg/dL (70-99) Test 07/16/19 02:18 07/16/19 03:28 07/16/19 04:40 07/16/19 05:50 Glucose (Fingerstick) 468 mg/dL (70-99) 403 mg/dL (70-99) 383 mg/dL (70-99) 297 mg/dL (70-99) Test 07/16/19 06:57 07/16/19 08:08 Glucose (Fingerstick) 271 mg/dL (70-99) 243 mg/dL (70-99) Laboratory Tests Test 07/15/19 20:45 07/15/19 21:17 07/15/19 23:35 07/16/19 01:12 White Blood Count 3.6 x10^3/uL (4.0-11.0) Red Blood Count 3.31 x10^6/uL (4.30-5.70) Hemoglobin 10.0 g/dL (13.0-17.5) Hematocrit 31.7 % (39.0-53.0) Mean Corpuscular Volume 96 fL (79-100) Mean Corpuscular Hemoglobin 30 pg (25-35) Mean Corpuscular Hemoglobin Concent 32 g/dL (31-37) Red Cell Distribution Width 19.2 % (11.5-14.5) Platelet Count 142 x10^3/uL (140-400) Neutrophils (%) (Auto) 56 % (31-73) Lymphocytes (%) (Auto) 22 % (24-48) Monocytes (%) (Auto) 8 % (0-9) Eosinophils (%) (Auto) 11 % (0-3) Basophils (%) (Auto) 3 % (0-3) Neutrophils # (Auto) 2.0 x10^3/uL (1.8-7.7) Lymphocytes # (Auto) 0.8 x10^3/uL (1.0-4.8) Monocytes # (Auto) 0.3 x10^3/uL (0.0-1.1) Eosinophils # (Auto) 0.4 x10^3/uL (0.0-0.7) Basophils # (Auto) 0.1 x10^3/uL (0.0-0.2) Segmented Neutrophils % 61 % (35-66) Lymphocytes % 17 % (24-48) Monocytes % 3 % (0-10) Eosinophils % 15 % (0-5) Basophils % 4 % (0-3) Toxic Granulation Mod Platelet Estimate Adequate (ADEQUATE) Polychromasia Slight Anisocytosis Slight Sodium Level 135 mmol/L (136-145) Potassium Level 4.4 mmol/L (3.5-5.1) Chloride Level 93 mmol/L (98-107) Carbon Dioxide Level 28 mmol/L (21-32) Anion Gap 14 (6-14) Blood Urea Nitrogen 33 mg/dL (8-26) Creatinine 5.5 mg/dL (0.7-1.3) Estimated GFR (Cockcroft-Gault) 10.8 BUN/Creatinine Ratio 6 (6-20) Glucose Level 715 mg/dL (70-99) 631 mg/dL (70-99) Lactic Acid Level 0.9 mmol/L (0.4-2.0) Calcium Level 8.9 mg/dL (8.5-10.1) Magnesium Level 2.2 mg/dL (1.8-2.4) Total Bilirubin 0.8 mg/dL (0.2-1.0) Aspartate Amino Transf (AST/SGOT) 12 U/L (15-37) Alanine Aminotransferase (ALT/SGPT) 8 U/L (16-63) Alkaline Phosphatase 167 U/L (46-116) Creatine Kinase 34 U/L (39-308) Troponin I Quantitative < 0.017 ng/mL (0.000-0.055) HV-Upc-S-Type Natriuretic Peptide > 79267 pg/mL (0-124) Total Protein 7.4 g/dL (6.4-8.2) Albumin 3.3 g/dL (3.4-5.0) Albumin/Globulin Ratio 0.8 (1.0-1.7) O2 Saturation 86 % (92-99) Arterial Blood pH 7.36 (7.35-7.45) Arterial Blood pCO2 at Patient Temp 51 mmHg (35-46) Arterial Blood pO2 at Patient Temp 53 mmHg (75-108) Arterial Blood HCO3 28 mmol/L (21-28) Arterial Blood Base Excess 2 mmol/L (-3-3) FiO2 36 Glucose (Fingerstick) 518 mg/dL (70-99) Test 07/16/19 02:18 07/16/19 03:28 07/16/19 04:40 07/16/19 05:50 Glucose (Fingerstick) 468 mg/dL (70-99) 403 mg/dL (70-99) 383 mg/dL (70-99) 297 mg/dL (70-99) Test 07/16/19 06:57 07/16/19 08:08 Glucose (Fingerstick) 271 mg/dL (70-99) 243 mg/dL (70-99) VTE Prophylaxis Ordered VTE Prophylaxis Devices: Yes VTE Pharmacological Prophylaxi: Yes Assessment/Plan Assessment/Plan acute on chronic hypoxic and hypercarbic respiratory failure, COPD with acute bronchitis, better s/p Bipap CHF, chronic combined failure ESRD on HD, would benefit from extra hd CORNELIO OATES MD Jul 16, 2019 08:45
[2019-07-16] MEDS: IPRATRPIUM/ALBUTEROL 0.5/2.5MG 3 ML NEBU. NEB SCH ×4 (09:00→19:55)
[2019-07-16] MEDS: INSULIN LISPRO 300 UNITS/3 ML VIAL. SQ SCH ×3 (09:00→17:36)
[2019-07-16] MEDS: BUDESONIDE 0.5 MG/2 ML NEBU. NEB SCH ×2 (09:00→19:55)
[2019-07-16] MEDS: FERROUS SULFATE 325 MG TABLET. PO SCH (09:49)
[2019-07-16] MEDS: amLODIPine BESYLATE 10 MG TABLET PO SCH (09:49)
[2019-07-16] MEDS: FUROSEMIDE 80 MG TABLET. PO SCH ×2 (09:49→14:00)
[2019-07-16] MEDS: LISINOPRIL 20 MG TABLET PO SCH (09:50)
[2019-07-16] MEDS: METOPROLOL SUCC 24HR ER 25 MG TAB.ER.24H. PO SCH (09:50)
[2019-07-16] MEDS: CLOPIDOGREL BISULFATE 75 MG TABLET PO SCH (09:50)
[2019-07-16] MEDS: hydrALAZINE 10 MG TABLET PO SCH ×3 (09:51→21:13)
[2019-07-16] MEDS: OMEGA-3 FATTY ACIDS/FISH OIL 1,000 MG CAPSULE. PO SCH (09:51)
[2019-07-16 10:32] VITALS: BP 169/72
[2019-07-16] MEDS: LEVOTHYROXINE 150 MCG TABLET PO SCH (10:34)
[2019-07-16] MEDS: PANTOPRAZOLE 40 MG TABLET.DR. PO SCH (11:30)
[2019-07-16] MEDS ORDERED: IV NORMAL SALINE 1000ML BAG 1,000 ML IV PRN ×2 (11:46)
[2019-07-16] MEDS ORDERED: ACETAMINOPHEN 500 MG TABLET PO PRN (12:00)
[2019-07-16] MEDS ORDERED: DIALYSIS PATIENT. MC PRN (12:00)
[2019-07-16] MEDS ORDERED: diphenhydrAMINE 50 MG/ML VIAL IV PRN ×2 (12:00)
[2019-07-16] MEDS ORDERED: ALBUMIN HUMAN 25% 200 ML IV PRN (12:00)
[2019-07-16] MEDS: CALCIUM ACETATE 667 MG CAPSULE PO SCH ×2 (12:00→17:34)
--- NOTE | 2019-07-16 12:23 | NUR ---
SS following for discharge planning. SS reviewed pt chart. Pt is from home with spouse and is currently requiring oxygen. Pt has home oxygen at home through [facility], ; fax [phone]. Pt has OPHD chair time at [facility] in [place], ; fax [phone]. SS contacted [facility] in [place] and was notified that pt has inconsistent participation with services. SS will continue to follow for discharge planning.
--- NOTE | 2019-07-16 14:21 | PDOC2 ---
CONSULT Date of Consult Date of Consult DATE: 07/16/19 TIME: 14:10 Reason for Consult Reason for Consult: ESRD Identification/Chief Complaint Chief Complaint "I was short of breath but now feeling better" Source Source: Chart review, Patient History of Present Illness Reason for Visit: 59-year-old C male with Dx of ESRD on HD MWF admitted with c/o of shortness of breath.He denies missing any treatments. He is on Chronic 4lt O2 by NC . In the ER O2 sats of 65% at arrival to ER , didnt had his O2 ABG showed O2 sats of 86% on oxygen and patient was started on venturi mask with improvement of oxygen to more than 90%. Patient had blood sugar of more than 700 and treated with insulin bolus and drip Lactic was negative. Currently Pt states he is feeling better. No SOB. No CP. He states " I am getting a new Kidney". Tx work up not initiated yet, has appt at [facility] soon . He continues to smoke Past Medical History Cardiovascular: CAD, HTN, Hyperlipidemia Pulmonary: Other GI: GERD Heme/Onc: Anemia NOS Psych: Depression Renal/: Chronic renal failure Endocrine: Diabetes, Hypothyroidism, Hyperparathyroidism Past Surgical History Past Surgical History: Other Family History Family History: Diabetes, Hypertension Social History ALCOHOL: none Drugs: None Lives: with Family Current Problem List Problem List Problems Medical Problems: (1) Anemia due to end stage renal disease Status: Acute (2) CHF exacerbation Status: Acute (3) Uncontrolled diabetes mellitus Status: Acute Current Medications Current Medications Current Medications Albuterol/ Ipratropium (Duoneb) 3 ml 1X ONCE NEB Last administered on 07/15/19at 20:43; Start 07/15/19 at 20:45; Stop 07/15/19 at 20:46; Status DC Methylprednisolone Sodium Succinate (SOLU-Medrol 125MG VIAL) 125 mg 1X ONCE IV Last administered on 07/15/19at 21:03; Start 07/15/19 at 20:45; Stop 07/15/19 at 20:46; Status DC Ceftriaxone Sodium (Rocephin) 1 gm 1X ONCE IVP Last administered on 07/15/19at 22:37; Start 07/15/19 at 21:30; Stop 07/15/19 at 21:31; Status DC Insulin Human Regular (HumuLIN R VIAL) 10 unit 1X ONCE IV Last administered on 07/15/19at 22:29; Start 07/15/19 at 21:45; Stop 07/15/19 at 21:46; Status DC Insulin Human Regular 150 unit/ Sodium Chloride 151.5 ml @ 0 mls/hr CONT PRN IV SEE I/O RECORD Last administered on 07/16/19at 07:47; Start 07/15/19 at 21:45; Stop 07/16/19 at 11:04; Status DC Dextrose (Dextrose 50%-Water Syringe) 12.5 gm PRN Q15MIN PRN IV SEE COMMENTS; Start 07/15/19 at 21:45 Acetaminophen (Tylenol) 650 mg PRN Q6HRS PRN PO MILD PAIN / TEMP; Start 07/16/19 at 08:45 Amlodipine Besylate (Norvasc) 10 mg DAILY PO Last administered on 07/16/19at 09:49; Start 07/16/19 at 09:00 Aspirin (Children'S Aspirin) 81 mg DAILYWBKFT PO ; Start 07/17/19 at 08:00 Atorvastatin Calcium (Lipitor) 5 mg QHS PO ; Start 07/16/19 at 21:00 Budesonide (Pulmicort) 0.5 mg RTBID NEB Last administered on 07/16/19at 09:00; Start 07/16/19 at 09:00 Clopidogrel Bisulfate (Plavix) 75 mg DAILY PO Last administered on 07/16/19at 09:50; Start 07/16/19 at 09:00 Ferrous Sulfate (Feosol) 325 mg DAILY PO Last administered on 07/16/19at 09:49; Start 07/16/19 at 09:00 Furosemide (Lasix) 80 mg BID92 PO Last administered on 07/16/19at 09:49; Start 07/16/19 at 09:00 Hydralazine HCl (Apresoline) 10 mg TID PO Last administered on 07/16/19at 09:51; Start 07/16/19 at 09:00 Insulin Human Lispro (HumaLOG) 9 units TIDWMEALS SQ ; Start 07/16/19 at 09:00 Albuterol/ Ipratropium (Duoneb) 3 ml RTQID NEB Last administered on 07/16/19at 12:00; Start 07/16/19 at 09:00 Lisinopril (Prinivil) 20 mg DAILY PO Last administered on 07/16/19at 09:50; Start 07/16/19 at 09:00 Metoprolol Succinate (Toprol Xl) 12.5 mg DAILY PO Last administered on 07/16/19at 09:50; Start 07/16/19 at 09:00 Trazodone HCl (Desyrel) 100 mg PRN QHS PRN PO INSOMNIA; Start 07/16/19 at 08:45 Calcium Acetate (Phoslo) 667 mg TIDWMEALS PO ; Start 07/16/19 at 12:00 Insulin Glargine (Lantus Syringe) 15 unit QHS SQ ; Start 07/16/19 at 21:00 Levothyroxine Sodium (Synthroid) 300 mcg DAILY06 PO Last administered on 07/16/19at 10:34; Start 07/16/19 at 10:30 Fish Oil (Fish Oil) 1,000 mg DAILY PO Last administered on 07/16/19at 09:51; Start 07/16/19 at 09:00 Pantoprazole Sodium (Protonix) 40 mg DAILYAC PO ; Start 07/16/19 at 11:30 Sodium Chloride 1,000 ml @ 1,000 mls/hr Q1H PRN IV hypotension; Start 07/16/19 at 11:46; Stop 07/16/19 at 17:45 Albumin Human 200 ml @ 200 mls/hr 1X PRN PRN IV Hypotension; Start 07/16/19 at 12:00; Stop 07/16/19 at 17:59 Acetaminophen (Tylenol) 500 mg 1X PRN PRN PO MILD PAIN / TEMP; Start 07/16/19 at 12:00; Stop 07/17/19 at 11:59 Diphenhydramine HCl (Benadryl) 25 mg 1X PRN PRN IV ITCHING; Start 07/16/19 at 12:00; Stop 07/17/19 at 11:59 Diphenhydramine HCl (Benadryl) 25 mg 1X PRN PRN IV ITCHING; Start 07/16/19 at 12:00; Stop 07/17/19 at 11:59 Sodium Chloride 1,000 ml @ 400 mls/hr Q2H30M PRN IV PATENCY; Start 07/16/19 at 11:46; Stop 07/16/19 at 23:45 Info (PHARMACY MONITORING -- do not chart) 1 each PRN DAILY PRN MC SEE COMMENTS; Start 07/16/19 at 12:00 Active Scripts Active Humalog (Insulin Lispro) 100 Unit/1 Ml Insuln.pen 9 Units SQ TIDWMEALS 30 Days Atorvastatin Calcium 10 Mg Tablet 5 Mg PO QHS 30 Days Hydralazine Hcl 10 Mg Tablet 10 Mg PO TID MDD 1 Amlodipine Besylate 10 Mg Tablet 10 Mg PO DAILY MDD 1 Lisinopril 40 Mg Tablet 20 Mg PO DAILY MDD 1 [Pantoprazole] 40 MG Tablet.dr 40 Mg PO DAILYAC 30 Days Trazodone Hcl 100 Mg Tablet 100 Mg PO PRN QHS PRN 30 Days Lantus Solostar (Insulin Glargine,Hum.rec.anlog) 100 Unit/1 Ml Insuln.pen 15 Units SQ QHS 30 Days Budesonide 0.5 Mg/2 Ml Ampul.neb 0.5 Mg NEB RTBID 30 Days Aspirin 81 Mg Tab.chew 81 Mg PO DAILYWBKFT 30 Days Duoneb 0.5-3(2.5) Mg/3 Ml (Albuterol/Ipratropium) 3 Ml Ampul.neb 3 Ml NEB RTQID 30 Days Reported Zithromax (Azithromycin) 250 Mg Tablet 1 Pkg PO UD Levothyroxine Sodium 300 Mcg Tablet 300 Mcg PO DAILYAC Clopidogrel (Clopidogrel Bisulfate) 75 Mg Tablet 1 Tab PO DAILY Furosemide 80 Mg Tablet 80 Mg PO BID [place] 3 Fish Oil Softgel ([place]-3 Fatty Acids/Fish Oil) 1 Each Capsule.dr 1 Each PO DAILY Toprol Xl (Metoprolol Succinate) 25 Mg Tab.er.24h 0.5 Tab PO DAILY Calcium Acetate 667 Mg Tablet 667 Mg PO TIDWMEALS Tylenol (Acetaminophen) 325 Mg Tablet 650 Mg PO PRN Q6HRS Ferrous Sulfate 325 Mg Tablet 1 Tab PO DAILY Dialyvite Tablet (Folic Acid/Vitamin B Comp W-C) 1 Each Tablet 1 Each PO Allergies Allergies: Coded Allergies: No Known Drug Allergies (Unverified , 02/16/19) ROS Review of System Per HPI Physical Exam Physical Exam GEN: NAD HEEN: OM moist, O2 by NC NECK: supple CVS: S1S2 RESP: CTA, decreased at bases, No Acc. Muscle Use GI: BS + veNon Tender, Non Distended : No CVA tenderness, No Suprapubic Tenderness, No Meyers NEURO- Grossly normal SKIN- No rash Vital Signs Vital Signs Date Time Temp Pulse Resp B/P (MAP) Pulse Ox O2 Delivery O2 Flow Rate FiO2 07/16/19 13:20 90 Nasal Cannula 4.0 07/16/19 10:32 97.5 60 18 169/72 (104) 97.5 Assessment & Plan ESRD- [facility] -@ DARRICK Steward- Dr. Scanlon Seen on HD, tolerating well, continue as ordered, Fede Gordillo Shortness of breath- Improved Access - No issues s/p Right upper extremity fistulogram Balloon angioplasty right brachiocephalic venous stenosis on 03/30 HTN- BP high , Dialysis with UF Continue antihypertensives Hx of Recurrent left sided effusion, status post chest tube placement 03/27 Had Thoracentesis in January and again in February - - transudate with negative cytology This admission CxR -Increase in small to moderate right pleural effusion- per primary Chronic obstructive pulmonary disease- On Chronic O2 [address] Coronary artery disease DM- BS in 700's at presentation Primary managing Labs Labs Laboratory Tests Test 07/15/19 20:45 07/15/19 21:17 07/15/19 23:35 07/16/19 01:12 White Blood Count 3.6 x10^3/uL (4.0-11.0) Red Blood Count 3.31 x10^6/uL (4.30-5.70) Hemoglobin 10.0 g/dL (13.0-17.5) Hematocrit 31.7 % (39.0-53.0) Mean Corpuscular Volume 96 fL (79-100) Mean Corpuscular Hemoglobin 30 pg (25-35) Mean Corpuscular Hemoglobin Concent 32 g/dL (31-37) Red Cell Distribution Width 19.2 % (11.5-14.5) Platelet Count 142 x10^3/uL (140-400) Neutrophils (%) (Auto) 56 % (31-73) Lymphocytes (%) (Auto) 22 % (24-48) Monocytes (%) (Auto) 8 % (0-9) Eosinophils (%) (Auto) 11 % (0-3) Basophils (%) (Auto) 3 % (0-3) Neutrophils # (Auto) 2.0 x10^3/uL (1.8-7.7) Lymphocytes # (Auto) 0.8 x10^3/uL (1.0-4.8) Monocytes # (Auto) 0.3 x10^3/uL (0.0-1.1) Eosinophils # (Auto) 0.4 x10^3/uL (0.0-0.7) Basophils # (Auto) 0.1 x10^3/uL (0.0-0.2) Segmented Neutrophils % 61 % (35-66) Lymphocytes % 17 % (24-48) Monocytes % 3 % (0-10) Eosinophils % 15 % (0-5) Basophils % 4 % (0-3) Toxic Granulation Mod Platelet Estimate Adequate (ADEQUATE) Polychromasia Slight Anisocytosis Slight Sodium Level 135 mmol/L (136-145) Potassium Level 4.4 mmol/L (3.5-5.1) Chloride Level 93 mmol/L (98-107) Carbon Dioxide Level 28 mmol/L (21-32) Anion Gap 14 (6-14) Blood Urea Nitrogen 33 mg/dL (8-26) Creatinine 5.5 mg/dL (0.7-1.3) Estimated GFR (Cockcroft-Gault) 10.8 BUN/Creatinine Ratio 6 (6-20) Glucose Level 715 mg/dL (70-99) 631 mg/dL (70-99) Lactic Acid Level 0.9 mmol/L (0.4-2.0) Calcium Level 8.9 mg/dL (8.5-10.1) Magnesium Level 2.2 mg/dL (1.8-2.4) Total Bilirubin 0.8 mg/dL (0.2-1.0) Aspartate Amino Transf (AST/SGOT) 12 U/L (15-37) Alanine Aminotransferase (ALT/SGPT) 8 U/L (16-63) Alkaline Phosphatase 167 U/L (46-116) Creatine Kinase 34 U/L (39-308) Troponin I Quantitative < 0.017 ng/mL (0.000-0.055) UT-Bgh-Y-Type Natriuretic Peptide > 80368 pg/mL (0-124) Total Protein 7.4 g/dL (6.4-8.2) Albumin 3.3 g/dL (3.4-5.0) Albumin/Globulin Ratio 0.8 (1.0-1.7) O2 Saturation 86 % (92-99) Arterial Blood pH 7.36 (7.35-7.45) Arterial Blood pCO2 at Patient Temp 51 mmHg (35-46) Arterial Blood pO2 at Patient Temp 53 mmHg (75-108) Arterial Blood HCO3 28 mmol/L (21-28) Arterial Blood Base Excess 2 mmol/L (-3-3) FiO2 36 Glucose (Fingerstick) 518 mg/dL (70-99) Test 07/16/19 02:18 07/16/19 03:28 07/16/19 04:40 07/16/19 05:50 Glucose (Fingerstick) 468 mg/dL (70-99) 403 mg/dL (70-99) 383 mg/dL (70-99) 297 mg/dL (70-99) Test 07/16/19 06:57 07/16/19 08:08 07/16/19 09:13 07/16/19 10:20 Glucose (Fingerstick) 271 mg/dL (70-99) 243 mg/dL (70-99) 224 mg/dL (70-99) 168 mg/dL (70-99) Test 07/16/19 11:40 07/16/19 12:05 Glucose (Fingerstick) 130 mg/dL (70-99) Hepatitis B Surface Antigen Nonreactive (Nonreactive) Laboratory Tests Test 07/15/19 20:45 07/15/19 21:17 07/15/19 23:35 07/16/19 01:12 White Blood Count 3.6 x10^3/uL (4.0-11.0) Red Blood Count 3.31 x10^6/uL (4.30-5.70) Hemoglobin 10.0 g/dL (13.0-17.5) Hematocrit 31.7 % (39.0-53.0) Mean Corpuscular Volume 96 fL (79-100) Mean Corpuscular Hemoglobin 30 pg (25-35) Mean Corpuscular Hemoglobin Concent 32 g/dL (31-37) Red Cell Distribution Width 19.2 % (11.5-14.5) Platelet Count 142 x10^3/uL (140-400) Neutrophils (%) (Auto) 56 % (31-73) Lymphocytes (%) (Auto) 22 % (24-48) Monocytes (%) (Auto) 8 % (0-9) Eosinophils (%) (Auto) 11 % (0-3) Basophils (%) (Auto) 3 % (0-3) Neutrophils # (Auto) 2.0 x10^3/uL (1.8-7.7) Lymphocytes # (Auto) 0.8 x10^3/uL (1.0-4.8) Monocytes # (Auto) 0.3 x10^3/uL (0.0-1.1) Eosinophils # (Auto) 0.4 x10^3/uL (0.0-0.7) Basophils # (Auto) 0.1 x10^3/uL (0.0-0.2) Segmented Neutrophils % 61 % (35-66) Lymphocytes % 17 % (24-48) Monocytes % 3 % (0-10) Eosinophils % 15 % (0-5) Basophils % 4 % (0-3) Toxic Granulation Mod Platelet Estimate Adequate (ADEQUATE) Polychromasia Slight Anisocytosis Slight Sodium Level 135 mmol/L (136-145) Potassium Level 4.4 mmol/L (3.5-5.1) Chloride Level 93 mmol/L (98-107) Carbon Dioxide Level 28 mmol/L (21-32) Anion Gap 14 (6-14) Blood Urea Nitrogen 33 mg/dL (8-26) Creatinine 5.5 mg/dL (0.7-1.3) Estimated GFR (Cockcroft-Gault) 10.8 BUN/Creatinine Ratio 6 (6-20) Glucose Level 715 mg/dL (70-99) 631 mg/dL (70-99) Lactic Acid Level 0.9 mmol/L (0.4-2.0) Calcium Level 8.9 mg/dL (8.5-10.1) Magnesium Level 2.2 mg/dL (1.8-2.4) Total Bilirubin 0.8 mg/dL (0.2-1.0) Aspartate Amino Transf (AST/SGOT) 12 U/L (15-37) Alanine Aminotransferase (ALT/SGPT) 8 U/L (16-63) Alkaline Phosphatase 167 U/L (46-116) Creatine Kinase 34 U/L (39-308) Troponin I Quantitative < 0.017 ng/mL (0.000-0.055) TI-Slq-V-Type Natriuretic Peptide > 76133 pg/mL (0-124) Total Protein 7.4 g/dL (6.4-8.2) Albumin 3.3 g/dL (3.4-5.0) Albumin/Globulin Ratio 0.8 (1.0-1.7) O2 Saturation 86 % (92-99) Arterial Blood pH 7.36 (7.35-7.45) Arterial Blood pCO2 at Patient Temp 51 mmHg (35-46) Arterial Blood pO2 at Patient Temp 53 mmHg (75-108) Arterial Blood HCO3 28 mmol/L (21-28) Arterial Blood Base Excess 2 mmol/L (-3-3) FiO2 36 Glucose (Fingerstick) 518 mg/dL (70-99) Test 07/16/19 02:18 07/16/19 03:28 07/16/19 04:40 07/16/19 05:50 Glucose (Fingerstick) 468 mg/dL (70-99) 403 mg/dL (70-99) 383 mg/dL (70-99) 297 mg/dL (70-99) Test 07/16/19 06:57 07/16/19 08:08 07/16/19 09:13 07/16/19 10:20 Glucose (Fingerstick) 271 mg/dL (70-99) 243 mg/dL (70-99) 224 mg/dL (70-99) 168 mg/dL (70-99) Test 07/16/19 11:40 07/16/19 12:05 Glucose (Fingerstick) 130 mg/dL (70-99) Hepatitis B Surface Antigen Nonreactive (Nonreactive) Review All relevant outside records, renal labs, imaging studies, telemetry/EKG's were reviewed. Images Images CxR Increase in small to moderate right pleural effusion tracking along the minor fissure. No definite pneumothorax. REBECCA ANGLIN MD Jul 16, 2019 14:21
--- NOTE | 2019-07-16 16:04 | PDOC ---
PULMONARY PROGRESS NOTES Vitals Vital Signs Date Time Temp Pulse Resp B/P (MAP) Pulse Ox O2 Delivery O2 Flow Rate FiO2 07/16/19 13:20 90 Nasal Cannula 4.0 07/16/19 10:32 97.5 60 18 169/72 (104) 97.5 General: Alert, No acute distress HEENT: Other Lungs: Other Cardiovascular: S1, S2 Abdomen: Soft, Non-tender Extremities: Other Labs Laboratory Tests Test 07/15/19 20:45 07/15/19 21:17 07/15/19 23:35 07/16/19 01:12 White Blood Count 3.6 x10^3/uL (4.0-11.0) Red Blood Count 3.31 x10^6/uL (4.30-5.70) Hemoglobin 10.0 g/dL (13.0-17.5) Hematocrit 31.7 % (39.0-53.0) Mean Corpuscular Volume 96 fL (79-100) Mean Corpuscular Hemoglobin 30 pg (25-35) Mean Corpuscular Hemoglobin Concent 32 g/dL (31-37) Red Cell Distribution Width 19.2 % (11.5-14.5) Platelet Count 142 x10^3/uL (140-400) Neutrophils (%) (Auto) 56 % (31-73) Lymphocytes (%) (Auto) 22 % (24-48) Monocytes (%) (Auto) 8 % (0-9) Eosinophils (%) (Auto) 11 % (0-3) Basophils (%) (Auto) 3 % (0-3) Neutrophils # (Auto) 2.0 x10^3/uL (1.8-7.7) Lymphocytes # (Auto) 0.8 x10^3/uL (1.0-4.8) Monocytes # (Auto) 0.3 x10^3/uL (0.0-1.1) Eosinophils # (Auto) 0.4 x10^3/uL (0.0-0.7) Basophils # (Auto) 0.1 x10^3/uL (0.0-0.2) Segmented Neutrophils % 61 % (35-66) Lymphocytes % 17 % (24-48) Monocytes % 3 % (0-10) Eosinophils % 15 % (0-5) Basophils % 4 % (0-3) Toxic Granulation Mod Platelet Estimate Adequate (ADEQUATE) Polychromasia Slight Anisocytosis Slight Sodium Level 135 mmol/L (136-145) Potassium Level 4.4 mmol/L (3.5-5.1) Chloride Level 93 mmol/L (98-107) Carbon Dioxide Level 28 mmol/L (21-32) Anion Gap 14 (6-14) Blood Urea Nitrogen 33 mg/dL (8-26) Creatinine 5.5 mg/dL (0.7-1.3) Estimated GFR (Cockcroft-Gault) 10.8 BUN/Creatinine Ratio 6 (6-20) Glucose Level 715 mg/dL (70-99) 631 mg/dL (70-99) Lactic Acid Level 0.9 mmol/L (0.4-2.0) Calcium Level 8.9 mg/dL (8.5-10.1) Magnesium Level 2.2 mg/dL (1.8-2.4) Total Bilirubin 0.8 mg/dL (0.2-1.0) Aspartate Amino Transf (AST/SGOT) 12 U/L (15-37) Alanine Aminotransferase (ALT/SGPT) 8 U/L (16-63) Alkaline Phosphatase 167 U/L (46-116) Creatine Kinase 34 U/L (39-308) Troponin I Quantitative < 0.017 ng/mL (0.000-0.055) NQ-Lfp-D-Type Natriuretic Peptide > 81496 pg/mL (0-124) Total Protein 7.4 g/dL (6.4-8.2) Albumin 3.3 g/dL (3.4-5.0) Albumin/Globulin Ratio 0.8 (1.0-1.7) O2 Saturation 86 % (92-99) Arterial Blood pH 7.36 (7.35-7.45) Arterial Blood pCO2 at Patient Temp 51 mmHg (35-46) Arterial Blood pO2 at Patient Temp 53 mmHg (75-108) Arterial Blood HCO3 28 mmol/L (21-28) Arterial Blood Base Excess 2 mmol/L (-3-3) FiO2 36 Glucose (Fingerstick) 518 mg/dL (70-99) Test 07/16/19 02:18 07/16/19 03:28 07/16/19 04:40 07/16/19 05:50 Glucose (Fingerstick) 468 mg/dL (70-99) 403 mg/dL (70-99) 383 mg/dL (70-99) 297 mg/dL (70-99) Test 07/16/19 06:57 07/16/19 08:08 07/16/19 09:13 07/16/19 10:20 Glucose (Fingerstick) 271 mg/dL (70-99) 243 mg/dL (70-99) 224 mg/dL (70-99) 168 mg/dL (70-99) Test 07/16/19 11:40 07/16/19 12:05 Glucose (Fingerstick) 130 mg/dL (70-99) Hepatitis B Surface Antigen Nonreactive (Nonreactive) Laboratory Tests Test 07/15/19 20:45 07/15/19 21:17 07/15/19 23:35 07/16/19 01:12 White Blood Count 3.6 x10^3/uL (4.0-11.0) Red Blood Count 3.31 x10^6/uL (4.30-5.70) Hemoglobin 10.0 g/dL (13.0-17.5) Hematocrit 31.7 % (39.0-53.0) Mean Corpuscular Volume 96 fL (79-100) Mean Corpuscular Hemoglobin 30 pg (25-35) Mean Corpuscular Hemoglobin Concent 32 g/dL (31-37) Red Cell Distribution Width 19.2 % (11.5-14.5) Platelet Count 142 x10^3/uL (140-400) Neutrophils (%) (Auto) 56 % (31-73) Lymphocytes (%) (Auto) 22 % (24-48) Monocytes (%) (Auto) 8 % (0-9) Eosinophils (%) (Auto) 11 % (0-3) Basophils (%) (Auto) 3 % (0-3) Neutrophils # (Auto) 2.0 x10^3/uL (1.8-7.7) Lymphocytes # (Auto) 0.8 x10^3/uL (1.0-4.8) Monocytes # (Auto) 0.3 x10^3/uL (0.0-1.1) Eosinophils # (Auto) 0.4 x10^3/uL (0.0-0.7) Basophils # (Auto) 0.1 x10^3/uL (0.0-0.2) Segmented Neutrophils % 61 % (35-66) Lymphocytes % 17 % (24-48) Monocytes % 3 % (0-10) Eosinophils % 15 % (0-5) Basophils % 4 % (0-3) Toxic Granulation Mod Platelet Estimate Adequate (ADEQUATE) Polychromasia Slight Anisocytosis Slight Sodium Level 135 mmol/L (136-145) Potassium Level 4.4 mmol/L (3.5-5.1) Chloride Level 93 mmol/L (98-107) Carbon Dioxide Level 28 mmol/L (21-32) Anion Gap 14 (6-14) Blood Urea Nitrogen 33 mg/dL (8-26) Creatinine 5.5 mg/dL (0.7-1.3) Estimated GFR (Cockcroft-Gault) 10.8 BUN/Creatinine Ratio 6 (6-20) Glucose Level 715 mg/dL (70-99) 631 mg/dL (70-99) Lactic Acid Level 0.9 mmol/L (0.4-2.0) Calcium Level 8.9 mg/dL (8.5-10.1) Magnesium Level 2.2 mg/dL (1.8-2.4) Total Bilirubin 0.8 mg/dL (0.2-1.0) Aspartate Amino Transf (AST/SGOT) 12 U/L (15-37) Alanine Aminotransferase (ALT/SGPT) 8 U/L (16-63) Alkaline Phosphatase 167 U/L (46-116) Creatine Kinase 34 U/L (39-308) Troponin I Quantitative < 0.017 ng/mL (0.000-0.055) DB-Qqq-L-Type Natriuretic Peptide > 00509 pg/mL (0-124) Total Protein 7.4 g/dL (6.4-8.2) Albumin 3.3 g/dL (3.4-5.0) Albumin/Globulin Ratio 0.8 (1.0-1.7) O2 Saturation 86 % (92-99) Arterial Blood pH 7.36 (7.35-7.45) Arterial Blood pCO2 at Patient Temp 51 mmHg (35-46) Arterial Blood pO2 at Patient Temp 53 mmHg (75-108) Arterial Blood HCO3 28 mmol/L (21-28) Arterial Blood Base Excess 2 mmol/L (-3-3) FiO2 36 Glucose (Fingerstick) 518 mg/dL (70-99) Test 07/16/19 02:18 07/16/19 03:28 07/16/19 04:40 07/16/19 05:50 Glucose (Fingerstick) 468 mg/dL (70-99) 403 mg/dL (70-99) 383 mg/dL (70-99) 297 mg/dL (70-99) Test 07/16/19 06:57 07/16/19 08:08 07/16/19 09:13 07/16/19 10:20 Glucose (Fingerstick) 271 mg/dL (70-99) 243 mg/dL (70-99) 224 mg/dL (70-99) 168 mg/dL (70-99) Test 07/16/19 11:40 07/16/19 12:05 Glucose (Fingerstick) 130 mg/dL (70-99) Hepatitis B Surface Antigen Nonreactive (Nonreactive) Medications Active Scripts Medications Dose Route/Sig Max Daily Dose Days Date Category Zithromax (Azithromycin) 250 Mg Tablet 1 Pkg PO UD 04/27/19 Reported Levothyroxine Sodium 300 Mcg Tablet 300 Mcg PO DAILYAC 04/25/19 Reported Clopidogrel (Clopidogrel Bisulfate) 75 Mg Tablet 1 Tab PO DAILY 04/25/19 Reported Humalog (Insulin Lispro) 100 Unit/1 Ml Insuln.pen 9 Units SQ TIDWMEALS 30 04/02/19 Rx Atorvastatin Calcium 10 Mg Tablet 5 Mg PO QHS 30 03/10/19 Rx Furosemide 80 Mg Tablet 80 Mg PO BID 02/18/19 Reported [place] 3 Fish Oil Softgel ([place]-3 Fatty Acids/Fish Oil) 1 Each Capsule.dr 1 Each PO DAILY 11/07/18 Reported Toprol Xl (Metoprolol Succinate) 25 Mg Tab.er.24h 0.5 Tab PO DAILY 11/07/18 Reported Calcium Acetate 667 Mg Tablet 667 Mg PO TIDWMEALS 11/07/18 Reported Hydralazine Hcl 10 Mg Tablet 10 Mg PO TID MDD 1 10/04/18 Rx Amlodipine Besylate 10 Mg Tablet 10 Mg PO DAILY MDD 1 10/04/18 Rx Lisinopril 40 Mg Tablet 20 Mg PO DAILY MDD 1 10/04/18 Rx Tylenol (Acetaminophen) 325 Mg Tablet 650 Mg PO PRN Q6HRS 10/02/18 Reported Ferrous Sulfate 325 Mg Tablet 1 Tab PO DAILY 09/15/18 Reported [Pantoprazole] 40 MG Tablet.dr 40 Mg PO DAILYAC 30 09/09/18 Rx Trazodone Hcl 100 Mg Tablet 100 Mg PO PRN QHS PRN 30 09/09/18 Rx Lantus Solostar (Insulin Glargine,Hum.rec.anlog) 100 Unit/1 Ml Insuln.pen 15 Units SQ QHS 30 09/09/18 Rx Budesonide 0.5 Mg/2 Ml Ampul.neb 0.5 Mg NEB RTBID 30 08/29/18 Rx Aspirin 81 Mg Tab.chew 81 Mg PO DAILYWBKFT 30 08/29/18 Rx Duoneb 0.5-3(2.5) Mg/3 Ml (Albuterol/Ipratropium) 3 Ml Ampul.neb 3 Ml NEB RTQID 30 08/29/18 Rx Dialyvite Tablet (Folic Acid/Vitamin B Comp W-C) 1 Each Tablet 1 Each PO 03/28/18 Reported Impression . FULL NOTE DICTATED NO NEED FOR REPEAT THORACENTSIS THANKS YOSI ZHANG MD Jul 16, 2019 16:03
[2019-07-16 19:25] VITALS: BP 148/67
[2019-07-16] MEDS ORDERED: INSULIN GLARGINE SYRINGE. SQ SCH (21:00)
[2019-07-16] MEDS ORDERED: INSULIN LISPRO 300 UNITS/3 ML VIAL. SQ ONE (21:00)
[2019-07-16] MEDS ORDERED: ATORVASTATIN CALCIUM 10 MG TABLET. PO SCH (21:00)
[2019-07-16 22:17] VITALS: BP 149/69
--- NOTE | 2019-07-17 01:02 | CONS ---
DATE OF CONSULTATION: 07/16/2019 ATTENDING PHYSICIAN: Sarahi Tan MD REASON FOR CONSULTATION: The patient is seen in pulmonary consultation at the request of Dr. Tan for abnormal x-ray. HISTORY OF PRESENT ILLNESS: The patient is a 59-year-old that is well known to us from previous hospitalization, presented with increasing shortness of breath. He has chronic renal failure, on hemodialysis, chronic respiratory failure, on 4 liters of oxygen supplementation, reported increasing shortness of breath with exertion. No cough, no fever, no chills, or night sweats. The patient was seen in the Emergency Department and had saturations of 65% on room air. He was admitted. I was asked to see him in consultation. PAST MEDICAL HISTORY: Coronary artery disease, chronic respiratory failure, hypertension, hyperlipidemia, gastroesophageal reflux, depression, chronic renal failure, diabetes type 2, hypothyroidism, hyperparathyroidism. PAST SURGICAL HISTORY: No recent major surgeries. He has had multiple thoracenteses in the past. FAMILY HISTORY: Diabetes, hypertension. SOCIAL HISTORY: He continues to smoke. REVIEW OF SYSTEMS: As indicated above, otherwise a 10-point system was reviewed and negative. CURRENT MEDICATIONS: List was reviewed. PHYSICAL EXAMINATION: GENERAL: The patient was seen in the hemodialysis suite. He was in no respiratory distress, on oxygen supplementation. HEENT: Eyes: The sclerae were nonicteric. NECK: Jugular venous distention was not elevated. No lymphadenopathy. CHEST: Full expansion. LUNGS: Diminished breath sounds in the bases. No wheezes. CARDIOVASCULAR: Regular rate and rhythm with S1, S2, no S3. ABDOMEN: Soft, nontender, nondistended. EXTREMITIES: No clubbing, cyanosis, or edema. NEUROLOGIC: The patient was awake, alert, following commands. A detailed neuro exam was not performed. LABORATORY DATA: Labs were reviewed. White count was 3.6. Arterial blood gas; pH of 7.36, PaCO2 of 51, pO2 of 53 on 36% FiO2. Serology: Hepatitis B surface antigen was negative. BUN and creatinine were elevated. Chest x-ray as indicated above. IMPRESSION: 1. Acute on chronic respiratory failure. 2. Acute on chronic diastolic heart failure. 3. Abnormal x-ray revealing evidence of increasing effusion. The patient has had previous thoracentesis in the past. 4. End-stage renal disease. 5. Other comorbidities including type 2 diabetes, hyperparathyroidism, chronic anemia, depression. PLAN: 1. Respiratory status appears to have improved with dialysis and oxygen supplementation. 2. Recommend continuing negative fluid balance. 3. Treat acute bronchitis. The patient required BiPAP. He is now off of BiPAP and is feeling better. 4. Home with oxygen supplementation. 5. The above was discussed with the hemodialysis nurse. Plans will be to remove more fluid as time goes on. I do appreciate the privilege in sharing in the patient's care. YOSI ZHANG MD DR: EZIO/radha JOB#: [id number] / [id number]
[2019-07-17 02:45] VITALS: BP 157/69
[2019-07-17] MEDS: PANTOPRAZOLE 40 MG TABLET.DR. PO SCH (05:50)
[2019-07-17] MEDS: LEVOTHYROXINE 150 MCG TABLET PO SCH (05:50)
[2019-07-17 07:00] VITALS: BP 160/69
[2019-07-17 07:33] LABS: BASO % 0 % (0-3); EOS % 0 % (0-3); HEMATOCRIT 28.5 % (39.0-53.0); HEMOGLOBIN 9.2 g/dL (13.0-17.5); LYMPH # 1.1 x10^3/uL (1.0-4.8); LYMPH % 8 % (24-48); MEAN CORPUSCULAR HEMOGLOBIN 30 pg (25-35); MEAN CORPUSCULAR HGB CONC 32 g/dL (31-37); MEAN CORPUSCULAR VOLUME 92 fL (79-100); MONO # 0.5 x10^3/uL (0.0-1.1); MONO % 4 % (0-9); NEUT # 11.9 x10^3/uL (1.8-7.7); NEUT % 88 % (31-73); PLATELET COUNT 160 x10^3/uL (140-400); RED BLOOD COUNT 3.11 x10^6/uL (4.30-5.70); RED CELL DISTRIBUTION WIDTH 18.4 % (11.5-14.5); WHITE BLOOD COUNT 13.6 x10^3/uL (4.0-11.0)
[2019-07-17 07:38] LABS: ALBUMIN 3.1 g/dL (3.4-5.0); ALBUMIN/GLOBULIN RATIO 0.9 (1.0-1.7); CALCIUM 8.8 mg/dL (8.5-10.1); CREATININE 3.9 mg/dL (0.7-1.3); POTASSIUM 4.4 mmol/L (3.5-5.1); TOTAL BILIRUBIN 0.4 mg/dL (0.2-1.0); TOTAL PROTEIN 6.7 g/dL (6.4-8.2)
[2019-07-17] MEDS ORDERED: ASPIRIN CHEWABLE 81 MG TABLET. PO SCH (08:00)
[2019-07-17] MEDS: BUDESONIDE 0.5 MG/2 ML NEBU. NEB SCH (08:05)
[2019-07-17] MEDS: IPRATRPIUM/ALBUTEROL 0.5/2.5MG 3 ML NEBU. NEB SCH (08:05)
[2019-07-17] MEDS: CLOPIDOGREL BISULFATE 75 MG TABLET PO SCH (08:34)
[2019-07-17] MEDS: CALCIUM ACETATE 667 MG CAPSULE PO SCH (08:35)
[2019-07-17] MEDS: OMEGA-3 FATTY ACIDS/FISH OIL 1,000 MG CAPSULE. PO SCH (08:35)
[2019-07-17] MEDS: LISINOPRIL 20 MG TABLET PO SCH (08:35)
[2019-07-17] MEDS: hydrALAZINE 10 MG TABLET PO SCH (08:35)
[2019-07-17] MEDS: amLODIPine BESYLATE 10 MG TABLET PO SCH (08:35)
[2019-07-17 08:36] VITALS: BP 160/69
[2019-07-17] MEDS: FERROUS SULFATE 325 MG TABLET. PO SCH (08:36)
[2019-07-17] MEDS: FUROSEMIDE 80 MG TABLET. PO SCH (08:36)
[2019-07-17] MEDS: METOPROLOL SUCC 24HR ER 25 MG TAB.ER.24H. PO SCH (08:36)
[2019-07-17] MEDS: INSULIN LISPRO 300 UNITS/3 ML VIAL. SQ SCH (08:42)
[2019-07-17 09:00] LABS: % LYMPHS 10 % (24-48); % MONOS 2 % (0-10); % SEGS 88 % (35-66); ANISOCYTOSIS SLIGHT; PLT ESTIMATE ADEQUATE (ADEQUATE)
--- NOTE | 2019-07-17 09:35 | PDOC ---
PULMONARY PROGRESS NOTES Vitals Vital Signs Date Time Temp Pulse Resp B/P (MAP) Pulse Ox O2 Delivery O2 Flow Rate FiO2 07/17/19 08:36 67 160/69 07/17/19 08:10 100 Nasal Cannula 5.0 07/17/19 07:00 97.6 18 97.6 General: Alert, No acute distress HEENT: Other Lungs: Other Cardiovascular: S1, S2 Abdomen: Soft, Non-tender Extremities: Other Labs Laboratory Tests Test 07/15/19 20:45 07/15/19 21:17 07/15/19 23:35 07/16/19 01:12 White Blood Count 3.6 x10^3/uL (4.0-11.0) Red Blood Count 3.31 x10^6/uL (4.30-5.70) Hemoglobin 10.0 g/dL (13.0-17.5) Hematocrit 31.7 % (39.0-53.0) Mean Corpuscular Volume 96 fL (79-100) Mean Corpuscular Hemoglobin 30 pg (25-35) Mean Corpuscular Hemoglobin Concent 32 g/dL (31-37) Red Cell Distribution Width 19.2 % (11.5-14.5) Platelet Count 142 x10^3/uL (140-400) Neutrophils (%) (Auto) 56 % (31-73) Lymphocytes (%) (Auto) 22 % (24-48) Monocytes (%) (Auto) 8 % (0-9) Eosinophils (%) (Auto) 11 % (0-3) Basophils (%) (Auto) 3 % (0-3) Neutrophils # (Auto) 2.0 x10^3/uL (1.8-7.7) Lymphocytes # (Auto) 0.8 x10^3/uL (1.0-4.8) Monocytes # (Auto) 0.3 x10^3/uL (0.0-1.1) Eosinophils # (Auto) 0.4 x10^3/uL (0.0-0.7) Basophils # (Auto) 0.1 x10^3/uL (0.0-0.2) Segmented Neutrophils % 61 % (35-66) Lymphocytes % 17 % (24-48) Monocytes % 3 % (0-10) Eosinophils % 15 % (0-5) Basophils % 4 % (0-3) Toxic Granulation Mod Platelet Estimate Adequate (ADEQUATE) Polychromasia Slight Anisocytosis Slight Sodium Level 135 mmol/L (136-145) Potassium Level 4.4 mmol/L (3.5-5.1) Chloride Level 93 mmol/L (98-107) Carbon Dioxide Level 28 mmol/L (21-32) Anion Gap 14 (6-14) Blood Urea Nitrogen 33 mg/dL (8-26) Creatinine 5.5 mg/dL (0.7-1.3) Estimated GFR (Cockcroft-Gault) 10.8 BUN/Creatinine Ratio 6 (6-20) Glucose Level 715 mg/dL (70-99) 631 mg/dL (70-99) Lactic Acid Level 0.9 mmol/L (0.4-2.0) Calcium Level 8.9 mg/dL (8.5-10.1) Magnesium Level 2.2 mg/dL (1.8-2.4) Total Bilirubin 0.8 mg/dL (0.2-1.0) Aspartate Amino Transf (AST/SGOT) 12 U/L (15-37) Alanine Aminotransferase (ALT/SGPT) 8 U/L (16-63) Alkaline Phosphatase 167 U/L (46-116) Creatine Kinase 34 U/L (39-308) Troponin I Quantitative < 0.017 ng/mL (0.000-0.055) OJ-Ovm-X-Type Natriuretic Peptide > 25855 pg/mL (0-124) Total Protein 7.4 g/dL (6.4-8.2) Albumin 3.3 g/dL (3.4-5.0) Albumin/Globulin Ratio 0.8 (1.0-1.7) O2 Saturation 86 % (92-99) Arterial Blood pH 7.36 (7.35-7.45) Arterial Blood pCO2 at Patient Temp 51 mmHg (35-46) Arterial Blood pO2 at Patient Temp 53 mmHg (75-108) Arterial Blood HCO3 28 mmol/L (21-28) Arterial Blood Base Excess 2 mmol/L (-3-3) FiO2 36 Glucose (Fingerstick) 518 mg/dL (70-99) Test 07/16/19 02:18 07/16/19 03:28 07/16/19 04:40 07/16/19 05:50 Glucose (Fingerstick) 468 mg/dL (70-99) 403 mg/dL (70-99) 383 mg/dL (70-99) 297 mg/dL (70-99) Test 07/16/19 06:57 07/16/19 08:08 07/16/19 09:13 07/16/19 10:20 Glucose (Fingerstick) 271 mg/dL (70-99) 243 mg/dL (70-99) 224 mg/dL (70-99) 168 mg/dL (70-99) Test 07/16/19 11:40 07/16/19 12:05 07/16/19 16:44 07/16/19 20:32 Glucose (Fingerstick) 130 mg/dL (70-99) 169 mg/dL (70-99) 474 mg/dL (70-99) Hepatitis B Surface Antigen Nonreactive (Nonreactive) Test 07/16/19 22:18 07/17/19 02:53 07/17/19 05:50 07/17/19 07:37 Glucose (Fingerstick) 498 mg/dL (70-99) 329 mg/dL (70-99) 259 mg/dL (70-99) White Blood Count 13.6 x10^3/uL (4.0-11.0) Red Blood Count 3.11 x10^6/uL (4.30-5.70) Hemoglobin 9.2 g/dL (13.0-17.5) Hematocrit 28.5 % (39.0-53.0) Mean Corpuscular Volume 92 fL (79-100) Mean Corpuscular Hemoglobin 30 pg (25-35) Mean Corpuscular Hemoglobin Concent 32 g/dL (31-37) Red Cell Distribution Width 18.4 % (11.5-14.5) Platelet Count 160 x10^3/uL (140-400) Neutrophils (%) (Auto) 88 % (31-73) Lymphocytes (%) (Auto) 8 % (24-48) Monocytes (%) (Auto) 4 % (0-9) Eosinophils (%) (Auto) 0 % (0-3) Basophils (%) (Auto) 0 % (0-3) Neutrophils # (Auto) 11.9 x10^3/uL (1.8-7.7) Lymphocytes # (Auto) 1.1 x10^3/uL (1.0-4.8) Monocytes # (Auto) 0.5 x10^3/uL (0.0-1.1) Eosinophils # (Auto) 0.0 x10^3/uL (0.0-0.7) Basophils # (Auto) 0.0 x10^3/uL (0.0-0.2) Segmented Neutrophils % 88 % (35-66) Lymphocytes % 10 % (24-48) Monocytes % 2 % (0-10) Platelet Estimate Adequate (ADEQUATE) Anisocytosis Slight Sodium Level 140 mmol/L (136-145) Potassium Level 4.4 mmol/L (3.5-5.1) Chloride Level 99 mmol/L (98-107) Carbon Dioxide Level 31 mmol/L (21-32) Anion Gap 10 (6-14) Blood Urea Nitrogen 29 mg/dL (8-26) Creatinine 3.9 mg/dL (0.7-1.3) Estimated GFR (Cockcroft-Gault) 16.0 BUN/Creatinine Ratio 7 (6-20) Glucose Level 299 mg/dL (70-99) Calcium Level 8.8 mg/dL (8.5-10.1) Total Bilirubin 0.4 mg/dL (0.2-1.0) Aspartate Amino Transf (AST/SGOT) 8 U/L (15-37) Alanine Aminotransferase (ALT/SGPT) 6 U/L (16-63) Alkaline Phosphatase 154 U/L (46-116) Total Protein 6.7 g/dL (6.4-8.2) Albumin 3.1 g/dL (3.4-5.0) Albumin/Globulin Ratio 0.9 (1.0-1.7) Thyroid Stimulating Hormone (TSH) 8.521 uIU/mL (0.358-3.74) Laboratory Tests Test 07/16/19 10:20 07/16/19 11:40 07/16/19 12:05 07/16/19 16:44 Glucose (Fingerstick) 168 mg/dL (70-99) 130 mg/dL (70-99) 169 mg/dL (70-99) Hepatitis B Surface Antigen Nonreactive (Nonreactive) Test 07/16/19 20:32 07/16/19 22:18 07/17/19 02:53 07/17/19 05:50 Glucose (Fingerstick) 474 mg/dL (70-99) 498 mg/dL (70-99) 329 mg/dL (70-99) White Blood Count 13.6 x10^3/uL (4.0-11.0) Red Blood Count 3.11 x10^6/uL (4.30-5.70) Hemoglobin 9.2 g/dL (13.0-17.5) Hematocrit 28.5 % (39.0-53.0) Mean Corpuscular Volume 92 fL (79-100) Mean Corpuscular Hemoglobin 30 pg (25-35) Mean Corpuscular Hemoglobin Concent 32 g/dL (31-37) Red Cell Distribution Width 18.4 % (11.5-14.5) Platelet Count 160 x10^3/uL (140-400) Neutrophils (%) (Auto) 88 % (31-73) Lymphocytes (%) (Auto) 8 % (24-48) Monocytes (%) (Auto) 4 % (0-9) Eosinophils (%) (Auto) 0 % (0-3) Basophils (%) (Auto) 0 % (0-3) Neutrophils # (Auto) 11.9 x10^3/uL (1.8-7.7) Lymphocytes # (Auto) 1.1 x10^3/uL (1.0-4.8) Monocytes # (Auto) 0.5 x10^3/uL (0.0-1.1) Eosinophils # (Auto) 0.0 x10^3/uL (0.0-0.7) Basophils # (Auto) 0.0 x10^3/uL (0.0-0.2) Segmented Neutrophils % 88 % (35-66) Lymphocytes % 10 % (24-48) Monocytes % 2 % (0-10) Platelet Estimate Adequate (ADEQUATE) Anisocytosis Slight Sodium Level 140 mmol/L (136-145) Potassium Level 4.4 mmol/L (3.5-5.1) Chloride Level 99 mmol/L (98-107) Carbon Dioxide Level 31 mmol/L (21-32) Anion Gap 10 (6-14) Blood Urea Nitrogen 29 mg/dL (8-26) Creatinine 3.9 mg/dL (0.7-1.3) Estimated GFR (Cockcroft-Gault) 16.0 BUN/Creatinine Ratio 7 (6-20) Glucose Level 299 mg/dL (70-99) Calcium Level 8.8 mg/dL (8.5-10.1) Total Bilirubin 0.4 mg/dL (0.2-1.0) Aspartate Amino Transf (AST/SGOT) 8 U/L (15-37) Alanine Aminotransferase (ALT/SGPT) 6 U/L (16-63) Alkaline Phosphatase 154 U/L (46-116) Total Protein 6.7 g/dL (6.4-8.2) Albumin 3.1 g/dL (3.4-5.0) Albumin/Globulin Ratio 0.9 (1.0-1.7) Thyroid Stimulating Hormone (TSH) 8.521 uIU/mL (0.358-3.74) Test 07/17/19 07:37 Glucose (Fingerstick) 259 mg/dL (70-99) Medications Active Scripts Medications Dose Route/Sig Max Daily Dose Days Date Category Zithromax (Azithromycin) 250 Mg Tablet 1 Pkg PO UD 04/27/19 Reported Levothyroxine Sodium 300 Mcg Tablet 300 Mcg PO DAILYAC 04/25/19 Reported Clopidogrel (Clopidogrel Bisulfate) 75 Mg Tablet 1 Tab PO DAILY 04/25/19 Reported Humalog (Insulin Lispro) 100 Unit/1 Ml Insuln.pen 9 Units SQ TIDWMEALS 30 04/02/19 Rx Atorvastatin Calcium 10 Mg Tablet 5 Mg PO QHS 30 03/10/19 Rx Furosemide 80 Mg Tablet 80 Mg PO BID 02/18/19 Reported [place] 3 Fish Oil Softgel ([place]-3 Fatty Acids/Fish Oil) 1 Each Capsule.dr 1 Each PO DAILY 11/07/18 Reported Toprol Xl (Metoprolol Succinate) 25 Mg Tab.er.24h 0.5 Tab PO DAILY 11/07/18 Reported Calcium Acetate 667 Mg Tablet 667 Mg PO TIDWMEALS 11/07/18 Reported Hydralazine Hcl 10 Mg Tablet 10 Mg PO TID MDD 1 10/04/18 Rx Amlodipine Besylate 10 Mg Tablet 10 Mg PO DAILY MDD 1 10/04/18 Rx Lisinopril 40 Mg Tablet 20 Mg PO DAILY MDD 1 10/04/18 Rx Tylenol (Acetaminophen) 325 Mg Tablet 650 Mg PO PRN Q6HRS 10/02/18 Reported Ferrous Sulfate 325 Mg Tablet 1 Tab PO DAILY 09/15/18 Reported [Pantoprazole] 40 MG Tablet.dr 40 Mg PO DAILYAC 30 09/09/18 Rx Trazodone Hcl 100 Mg Tablet 100 Mg PO PRN QHS PRN 30 09/09/18 Rx Lantus Solostar (Insulin Glargine,Hum.rec.anlog) 100 Unit/1 Ml Insuln.pen 15 Units SQ QHS 30 09/09/18 Rx Budesonide 0.5 Mg/2 Ml Ampul.neb 0.5 Mg NEB RTBID 30 08/29/18 Rx Aspirin 81 Mg Tab.chew 81 Mg PO DAILYWBKFT 30 08/29/18 Rx Duoneb 0.5-3(2.5) Mg/3 Ml (Albuterol/Ipratropium) 3 Ml Ampul.neb 3 Ml NEB RTQID 30 08/29/18 Rx Dialyvite Tablet (Folic Acid/Vitamin B Comp W-C) 1 Each Tablet 1 Each PO 03/28/18 Reported Impression . FULL NOTE DICTATED NO NEED FOR REPEAT THORACENTSIS THANKS YOSI ZHANG MD Jul 17, 2019 09:34
--- NOTE | 2019-07-17 10:57 | SNU/HH DC ---
DISCHARGE WITH HOME HEALTH DISCHARGE INFORMATION: Discharge Date: Jul 17, 2019 Final Diagnosis: Problems Medical Problems: (1) Anemia due to end stage renal disease Status: Acute (2) CHF exacerbation Status: Acute (3) Uncontrolled diabetes mellitus Status: Acute Condition on Discharge: Stable HOME HEALTH: Face to Face: I certify this patient is under my care and that I had a face to face encounter that meets the physician face to face encounter requirements with this patient on 07/17. RN For Eval/Treatment: Yes Physical Therapy For: Evalulation/Treatment Occupational Therapy For: Evaluation/Treatment Pt Meets Homebound Status: Extreme weakness w/ amb., Limited distance walking, Poor cognition POST DISCHARGE ORDERS: Activity Instructions for Disc: Activity as tolerated Weight Bearing Status after Di: As tolerated DIET AFTER DISCHARGE: Cardiac Wound/Incision Care: No wound care needed CHECKS AFTER DISCHARGE: Checks after discharge: Check blood press - daily, Check blood sugar, ac/hs, Check your Temp as needed, Weigh Yourself Daily FOLLOW-UP: Follow up with: primary care 2 weeks TREATMENT/EQUIPMENT ORDERS: Adaptive Equipment Issued: None Discharge Respiratory Equipmen: Oxygen CERTIFICATION STATEMENT: Certification Statement: Certification Statement: Based on the above finding, I certify that this patient is confined to the home and needs intermittent [facility] care, physical therapy and/or speech therapy, or continues to need occupational therapy.~ This patient is under my care, and I have initiated the establishment of the plan of care.~ This patient will be followed by myself or a community physician who will periodically review the plan of care. Home Meds Active Scripts Insulin Lispro (HUMALOG) 100 Unit/1 Ml Insuln.pen, 9 UNITS SQ TIDWMEALS for diabetes for 30 Days, EACH Prov:CORNELIO OATES MD 04/02/19 Atorvastatin Calcium (ATORVASTATIN CALCIUM) 10 Mg Tablet, 5 MG PO QHS for HLD for 30 Days, #15 TAB 11 Refills Prov:JIN ROBLES MD 03/10/19 Hydralazine Hcl (HYDRALAZINE HCL) 10 Mg Tablet, 10 MG PO TID for htn MDD 1, #90 TAB Prov:KRYSTAL JASSO MD 10/04/18 Amlodipine Besylate (AMLODIPINE BESYLATE) 10 Mg Tablet, 10 MG PO DAILY for htn MDD 1, #30 TAB Prov:KRYSTAL JASSO MD 10/04/18 Lisinopril (LISINOPRIL) 40 Mg Tablet, 20 MG PO DAILY for htn MDD 1, #30 TAB Prov:KRYSTAL JASSO MD 10/04/18 [Pantoprazole] 40 MG TABLET. No Conflict Check, 40 MG PO DAILYAC for 30 Days, #30 2 Refills Prov:JIN ROBLES MD 09/09/18 Trazodone Hcl (TRAZODONE HCL) 100 Mg Tablet, 100 MG PO PRN QHS PRN for INSOMNIA for 30 Days, #30 TAB 1 Refill Prov:JIN ROBLES MD 09/09/18 Insulin Glargine,Hum.rec.anlog (LANTUS SOLOSTAR) 100 Unit/1 Ml Insuln.pen, 15 UNITS SQ QHS for DM for 30 Days, EACH Prov:JIN ROBLES MD 09/09/18 Budesonide (BUDESONIDE) 0.5 Mg/2 Ml Ampul.neb, 0.5 MG NEB RTBID for copd for 30 Days, #60 EACH Prov:PABLO SHERMAN MD 08/29/18 Aspirin (ASPIRIN) 81 Mg Tab.chew, 81 MG PO DAILYWBKFT for heart health for 30 Days, #30 TAB.CHEW Prov:PABLO SHERMAN MD 08/29/18 Ipratropium/Albuterol Sulfate (DUONEB 0.5-3(2.5) MG/3 ML) 3 Ml Ampul.neb, 3 ML NEB RTQID for copd for 30 Days, #120 EACH Prov:PABLO SHERMAN MD 08/29/18 Reported Medications Levothyroxine Sodium (LEVOTHYROXINE SODIUM) 300 Mcg Tablet, 300 MCG PO DAILYAC for THYROID SUPPLEMENT, #30 TAB 0 Refills 04/25/19 Clopidogrel Bisulfate (CLOPIDOGREL) 75 Mg Tablet, 1 TAB PO DAILY for blood thinner, #90 TAB 1 Refill 04/25/19 Furosemide (FUROSEMIDE) 80 Mg Tablet, 80 MG PO BID for diuretic, CHF, TAB 02/18/19 [place]-3 Fatty Acids/Fish Oil ([place] 3 FISH OIL SOFTGEL) 1 Each Capsule., 1 EACH PO DAILY for supplement, CAP 11/07/18 Metoprolol Succinate (TOPROL XL) 25 Mg Tab.er.24h, 0.5 TAB PO DAILY for HTN, #30 TAB 5 Refills 11/07/18 Calcium Acetate (CALCIUM ACETATE) 667 Mg Tablet, 667 MG PO TIDWMEALS for DIAL [facility] PATIENTS, CAP 11/07/18 Acetaminophen (TYLENOL) 325 Mg Tablet, 650 MG PO PRN Q6HRS for mild pain, TAB 10/02/18 Ferrous Sulfate (FERROUS SULFATE) 325 Mg Tablet, 1 TAB PO DAILY for Dialysis, #30 TAB 3 Refills 09/15/18 Folic Acid/Vitamin B Comp W-C (DIALYVITE TABLET) 1 Each Tablet, 1 EACH PO, TAB 03/28/18 Discontinued Reported Medications Azithromycin (ZITHROMAX) 250 Mg Tablet, 1 PKG PO UD for pnemonia, #1 PKG 04/27/19 CORNELIO OATES MD Jul 17, 2019 10:57
--- NOTE | 2019-07-17 11:02 | PDOC ---
SUBJECTIVE ROS Stable , No SOB, likely dc home today OBJECTIVE Vital Signs Vital Signs Date Time Temp Pulse Resp B/P (MAP) Pulse Ox O2 Delivery O2 Flow Rate FiO2 07/17/19 08:36 67 160/69 07/17/19 08:10 100 Nasal Cannula 5.0 07/17/19 07:00 97.6 18 97.6 I & 0 Intake and Output 07/17/19 06:59 Intake Total 1300 ml Output Total 50 ml Balance 1250 ml Intake Oral 1300 ml Tube Feeding 0 ml Output Urine Total 50 ml PHYSICAL EXAM Physical Exam GEN: NAD HEEN: OM moist, O2 by NC NECK: supple CVS: S1S2 RESP: CTA, decreased at bases, No Acc. Muscle Use GI: BS + veNon Tender, Non Distended : No CVA tenderness, No Suprapubic Tenderness, No Meyers NEURO- Grossly normal SKIN- No rash DIAGNOSIS/ASSESSMENT Assessment & Plan ESRD- [facility] -@ [facility] Steward- Dr. Scanlon No indication for HD today ' Shortness of breath- Improved Pul following Access - No issues s/p Right upper extremity fistulogram Balloon angioplasty right brachiocephalic venous stenosis on 03/30 HTN- BP high , Dialysis with UF Continue antihypertensives Hx of Recurrent left sided effusion, status post chest tube placement 03/27 Had Thoracentesis in January and again in February - - transudate with negative cytology This admission CxR -Increase in small to moderate right pleural effusion- per primary Chronic obstructive pulmonary disease- On Chronic O2 4 Lts by RENETTA . Coronary artery disease DM- BS in 700's at presentation Primary managing COMMENT/RELEVANT DATA Meds Current Medications Medications (Trade) Dose Ordered Sig/Celi Start Time Stop Time Status Last Admin Dose Admin Acetaminophen (Tylenol) 500 mg 1X PRN PRN 07/16/19 12:00 07/17/19 11:59 Albumin Human 200 ml @ 200 mls/hr 1X PRN PRN 07/16/19 12:00 07/16/19 17:59 DC Albuterol/ Ipratropium (Duoneb) 3 ml RTQID 07/16/19 09:00 07/17/19 08:05 3 ML Amlodipine Besylate (Norvasc) 10 mg DAILY 07/16/19 09:00 07/17/19 08:35 10 MG Aspirin (Children'S Aspirin) 81 mg DAILYWBKFT 07/17/19 08:00 07/17/19 08:36 81 MG Atorvastatin Calcium (Lipitor) 5 mg QHS 07/16/19 21:00 07/16/19 21:13 5 MG Budesonide (Pulmicort) 0.5 mg RTBID 07/16/19 09:00 07/17/19 08:05 0.5 MG Calcium Acetate (Phoslo) 667 mg TIDWMEALS 07/16/19 12:00 07/17/19 08:35 667 MG Ceftriaxone Sodium (Rocephin) 1 gm 1X ONCE 07/15/19 21:30 07/15/19 21:31 DC 07/15/19 22:37 1 GM Clopidogrel Bisulfate (Plavix) 75 mg DAILY 07/16/19 09:00 07/17/19 08:34 75 MG Dextrose (Dextrose 50%-Water Syringe) 12.5 gm PRN Q15MIN PRN 07/15/19 21:45 Diphenhydramine HCl (Benadryl) 25 mg 1X PRN PRN 07/16/19 12:00 07/17/19 11:59 Ferrous Sulfate (Feosol) 325 mg DAILY 07/16/19 09:00 07/17/19 08:36 325 MG Fish Oil (Fish Oil) 1,000 mg DAILY 07/16/19 09:00 07/17/19 08:35 1,000 MG Furosemide (Lasix) 80 mg BID92 07/16/19 09:00 07/17/19 08:36 80 MG Hydralazine HCl (Apresoline) 10 mg TID 07/16/19 09:00 07/17/19 08:35 10 MG Info (PHARMACY MONITORING -- do not chart) 1 each PRN DAILY PRN 07/16/19 12:00 Insulin Glargine (Lantus Syringe) 15 unit QHS 07/16/19 21:00 07/16/19 21:15 15 UNIT Insulin Human Lispro (HumaLOG) 11 units 1X ONCE 07/16/19 21:00 07/16/19 21:04 DC 07/16/19 21:16 11 UNITS Insulin Human Regular (HumuLIN R VIAL) 10 unit 1X ONCE 07/15/19 21:45 07/15/19 21:46 DC 07/15/19 22:29 10 UNIT Insulin Human Regular 150 unit/ Sodium Chloride 151.5 ml @ 0 mls/hr CONT PRN 07/15/19 21:45 07/16/19 11:04 DC 07/16/19 07:47 16.9 MLS/HR Levothyroxine Sodium (Synthroid) 300 mcg DAILY06 07/16/19 10:30 07/17/19 05:50 300 MCG Lisinopril (Prinivil) 20 mg DAILY 07/16/19 09:00 07/17/19 08:35 20 MG Methylprednisolone Sodium Succinate (SOLU-Medrol 125MG VIAL) 125 mg 1X ONCE 07/15/19 20:45 07/15/19 20:46 DC 07/15/19 21:03 125 MG Metoprolol Succinate (Toprol Xl) 12.5 mg DAILY 07/16/19 09:00 07/17/19 08:36 12.5 MG Pantoprazole Sodium (Protonix) 40 mg DAILYAC 07/16/19 11:30 07/17/19 05:50 40 MG Sodium Chloride 1,000 ml @ 400 mls/hr Q2H30M PRN 07/16/19 11:46 07/16/19 23:45 DC Trazodone HCl (Desyrel) 100 mg PRN QHS PRN 07/16/19 08:45 Lab Laboratory Tests Test 07/16/19 11:40 07/16/19 12:05 07/16/19 16:44 07/16/19 20:32 Glucose (Fingerstick) 130 mg/dL (70-99) 169 mg/dL (70-99) 474 mg/dL (70-99) Hepatitis B Surface Antigen Nonreactive (Nonreactive) Test 07/16/19 22:18 07/17/19 02:53 07/17/19 05:50 07/17/19 07:37 Glucose (Fingerstick) 498 mg/dL (70-99) 329 mg/dL (70-99) 259 mg/dL (70-99) White Blood Count 13.6 x10^3/uL (4.0-11.0) Red Blood Count 3.11 x10^6/uL (4.30-5.70) Hemoglobin 9.2 g/dL (13.0-17.5) Hematocrit 28.5 % (39.0-53.0) Mean Corpuscular Volume 92 fL (79-100) Mean Corpuscular Hemoglobin 30 pg (25-35) Mean Corpuscular Hemoglobin Concent 32 g/dL (31-37) Red Cell Distribution Width 18.4 % (11.5-14.5) Platelet Count 160 x10^3/uL (140-400) Neutrophils (%) (Auto) 88 % (31-73) Lymphocytes (%) (Auto) 8 % (24-48) Monocytes (%) (Auto) 4 % (0-9) Eosinophils (%) (Auto) 0 % (0-3) Basophils (%) (Auto) 0 % (0-3) Neutrophils # (Auto) 11.9 x10^3/uL (1.8-7.7) Lymphocytes # (Auto) 1.1 x10^3/uL (1.0-4.8) Monocytes # (Auto) 0.5 x10^3/uL (0.0-1.1) Eosinophils # (Auto) 0.0 x10^3/uL (0.0-0.7) Basophils # (Auto) 0.0 x10^3/uL (0.0-0.2) Segmented Neutrophils % 88 % (35-66) Lymphocytes % 10 % (24-48) Monocytes % 2 % (0-10) Platelet Estimate Adequate (ADEQUATE) Anisocytosis Slight Sodium Level 140 mmol/L (136-145) Potassium Level 4.4 mmol/L (3.5-5.1) Chloride Level 99 mmol/L (98-107) Carbon Dioxide Level 31 mmol/L (21-32) Anion Gap 10 (6-14) Blood Urea Nitrogen 29 mg/dL (8-26) Creatinine 3.9 mg/dL (0.7-1.3) Estimated GFR (Cockcroft-Gault) 16.0 BUN/Creatinine Ratio 7 (6-20) Glucose Level 299 mg/dL (70-99) Calcium Level 8.8 mg/dL (8.5-10.1) Total Bilirubin 0.4 mg/dL (0.2-1.0) Aspartate Amino Transf (AST/SGOT) 8 U/L (15-37) Alanine Aminotransferase (ALT/SGPT) 6 U/L (16-63) Alkaline Phosphatase 154 U/L (46-116) Total Protein 6.7 g/dL (6.4-8.2) Albumin 3.1 g/dL (3.4-5.0) Albumin/Globulin Ratio 0.9 (1.0-1.7) Thyroid Stimulating Hormone (TSH) 8.521 uIU/mL (0.358-3.74) Results All relevant outside records, renal labs, imaging studies, telemetry/EKG's were reviewed. REBECCA ANGLIN MD Jul 17, 2019 11:02
--- NOTE | 2019-07-17 11:39 | NUR ---
Discharge Note: BENJA ANGULO Discharge instructions and discharge home medications reviewed with Patient and a copy given. All questions have been answered and understanding verbalized.
--- NOTE | 2019-07-17 11:46 | NUR ---
SS following up with discharge planning. Discharge orders received for home healthcare. SS met with pt and pt's spouse to discuss home healthcare and home healthcare options. Pt's spouse and pt declined home healthcare at this time stating that "it wouldn't do any good." SS phoned and faxed discharge paperwork to [facility] in [place], ; fax [phone]. Pt's RN notified.
[2019-07-17 23:07] LABS: HEMOGLOBIN A1C 9.7 % (4.8-5.6)
== END 2019-07-17 11:54 | disposition home or self-care (01) | DRG 291 ==
LOC: ER 20:29 → 2 NORTH 20:44
PROVIDERS: ADMIT Internal Medicine; ATTEND Internal Medicine
PROC: 5A09357 Assistance with Respiratory Ventilation, Less than 24 Consecutive Hours, Continuous Positive Airway Pressure (ICD-10-PCS; principal; 2019-07-16)
PROC: 5A1D70Z Performance of Urinary Filtration, Intermittent, Less than 6 Hours Per Day (ICD-10-PCS; 2019-07-16)
PROC: 5A09357 Assistance with Respiratory Ventilation, Less than 24 Consecutive Hours, Continuous Positive Airway Pressure (ICD-10-PCS; 2019-07-17)
DX: I13.2 Hypertensive heart and chronic kidney disease with heart failure and with stage 5 chronic kidney disease, or end stage renal disease (principal); J96.21 Acute and chronic respiratory failure with hypoxia; N18.6 End stage renal disease; I50.43 Acute on chronic combined systolic (congestive) and diastolic (congestive) heart failure; J96.22 Acute and chronic respiratory failure with hypercapnia; J44.0 Chronic obstructive pulmonary disease with (acute) lower respiratory infection; I25.10 Atherosclerotic heart disease of native coronary artery without angina pectoris; F17.210 Nicotine dependence, cigarettes, uncomplicated; D63.1 Anemia in chronic kidney disease; E10.65 Type 1 diabetes mellitus with hyperglycemia; E10.22 Type 1 diabetes mellitus with diabetic chronic kidney disease; K21.9 Gastro-esophageal reflux disease without esophagitis; F32.9 Major depressive disorder, single episode, unspecified; E03.9 Hypothyroidism, unspecified; J20.9 Acute bronchitis, unspecified; Z83.3 Family history of diabetes mellitus; E78.5 Hyperlipidemia, unspecified; E21.3 Hyperparathyroidism, unspecified; Z82.49 Family history of ischemic heart disease and other diseases of the circulatory system; Z86.74 Personal history of sudden cardiac arrest; Z99.2 Dependence on renal dialysis; Z99.81 Dependence on supplemental oxygen; Z79.4 Long term (current) use of insulin; Z95.5 Presence of coronary angioplasty implant and graft
CPT/HCPCS: 36415; 36600; 71045; 80053; 82550; 82805; 82947; 82962; 83036; 83605; 83735; 83880; 84443; 84484; 85007; 85025; 87040; 87340; 93005; 94640; 94660; 94760; 96374; J0696; J1815; J2930; J7620; J7626; 99285-25; G0378

== ENCOUNTER 2019-12-16 22:32 | Emergency (ER) | payer MEDICARE ==
[~2019-12-16] VITALS: Ht 175.3 cm; Wt 83.6 kg
[~2019-12-16 22:32] MED LIST changes: +ASCO500T2 PO; +DOCU-153 PO; +DOXY100T PO; +FOLI0.8T21 PO; +LEVO200T5 PO; +MUPI15CR8 TP; +PRED20TA PO; +TRAZ-123 PO; -TRAZ-86 PO
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
[2019-12-16 23:46] LABS: PROTHROMBIN TIME PATIENT 14.1 SEC (11.7-14.0)
--- NOTE | 2019-12-17 00:13 | RAD ---
PORTABLE CHEST 1V INDICATION: Dyspnea. COMPARISON STUDY: 11/25/2019. FINDINGS: Lungs: Normal lung volume. Bilateral perihilar and basilar opacities, slightly improved. The tracheobronchial tree and hilar structures are normal. Pleura: Improved small bilateral pleural effusions. Heart and Mediastinum: Cardiomegaly. Atherosclerotic thoracic aorta. IMPRESSION: 1. Slightly improved bilateral perihilar and basilar opacities, likely edema. 2. Improved small bilateral pleural effusions. Electronically signed by: Taye Peralta MD (12/17/2019 12:11 AM) [id number]
[2019-12-17 00:17] LABS: BASO # 0.1 x10^3/uL (0.0-0.2); BASO % 2 % (0-3); EOS # 0.5 x10^3/uL (0.0-0.7); EOS % 10 % (0-3); HEMATOCRIT 28.3 % (39.0-53.0); HEMOGLOBIN 9.3 g/dL (13.0-17.5); LYMPH # 0.7 x10^3/uL (1.0-4.8); LYMPH % 14 % (24-48); MEAN CORPUSCULAR HEMOGLOBIN 30 pg (25-35); MEAN CORPUSCULAR HGB CONC 33 g/dL (31-37); MEAN CORPUSCULAR VOLUME 91 fL (79-100); MONO # 0.7 x10^3/uL (0.0-1.1); MONO % 13 % (0-9); NEUT # 3.3 x10^3/uL (1.8-7.7); NEUT % 62 % (31-73); PLATELET COUNT 192 x10^3/uL (140-400); RED BLOOD COUNT 3.12 x10^6/uL (4.30-5.70); RED CELL DISTRIBUTION WIDTH 19.9 % (11.5-14.5); WHITE BLOOD COUNT 5.3 x10^3/uL (4.0-11.0)
[2019-12-17 00:23] LABS: CALCIUM 7.7 mg/dL (8.5-10.1); CREATININE 6.6 mg/dL (0.7-1.3); GFR 8.7; POTASSIUM 4.4 mmol/L (3.5-5.1)
[2019-12-17 00:29] LABS: ALBUMIN 3.1 g/dL (3.4-5.0); ALBUMIN/GLOBULIN RATIO 1.1 (1.0-1.7); TOTAL BILIRUBIN 0.6 mg/dL (0.2-1.0); TOTAL PROTEIN 5.8 g/dL (6.4-8.2)
[2019-12-17 01:23] VITALS: BP 179/79
== END 2019-12-17 02:21 | disposition home or self-care (01) ==
LOC: ER 22:32
DX: R06.02 Shortness of breath (principal); I13.10 Hypertensive heart and chronic kidney disease without heart failure, with stage 1 through stage 4 chronic kidney disease, or unspecified chronic kidney disease; E10.22 Type 1 diabetes mellitus with diabetic chronic kidney disease; N18.9 Chronic kidney disease, unspecified; Z99.2 Dependence on renal dialysis; J44.9 Chronic obstructive pulmonary disease, unspecified; I25.10 Atherosclerotic heart disease of native coronary artery without angina pectoris; Z87.891 Personal history of nicotine dependence; Z95.5 Presence of coronary angioplasty implant and graft
CPT/HCPCS: 36415; 71045; 80053; 83605; 84145; 84484; 85025; 85610; 85730; 99284-25; 99285-25

== ENCOUNTER 2020-07-11 11:31 | Emergency (ER) | payer MEDICARE ==
[~2020-07-11] VITALS: Ht 175.3 cm; Wt 79.0 kg
[~2020-07-11 11:31] MED LIST changes: +AMLO-187 PO; -AMLO10TA8 PO; -ASCO500T2 PO; +ASCO500T4 PO; -LEVO137T2 PO; +LEVO137T44 PO
[2020-07-11 12:17] LABS: BASO # 0.1 x10^3/uL (0.0-0.2); BASO % 2 % (0-3); EOS # 0.2 x10^3/uL (0.0-0.7); EOS % 6 % (0-3); HEMATOCRIT 23.7 % (39.0-53.0); HEMOGLOBIN 8.1 g/dL (13.0-17.5); LYMPH # 0.7 x10^3/uL (1.0-4.8); LYMPH % 18 % (24-48); MEAN CORPUSCULAR HEMOGLOBIN 31 pg (25-35); MEAN CORPUSCULAR HGB CONC 34 g/dL (31-37); MEAN CORPUSCULAR VOLUME 91 fL (79-100); MONO # 0.4 x10^3/uL (0.0-1.1); MONO % 10 % (0-9); NEUT # 2.7 x10^3/uL (1.8-7.7); NEUT % 65 % (31-73); PLATELET COUNT 103 x10^3/uL (140-400); RED BLOOD COUNT 2.62 x10^6/uL (4.30-5.70); RED CELL DISTRIBUTION WIDTH 17.2 % (11.5-14.5); WHITE BLOOD COUNT 4.1 x10^3/uL (4.0-11.0)
[2020-07-11 12:30] LABS: PROTHROMBIN TIME PATIENT 14.1 SEC (11.7-14.0)
[2020-07-11 12:48] LABS: ALBUMIN 2.8 g/dL (3.4-5.0); ALBUMIN/GLOBULIN RATIO 0.8 (1.0-1.7); CALCIUM 8.7 mg/dL (8.5-10.1); CREATININE 2.2 mg/dL (0.7-1.3); GFR 30.9; TOTAL BILIRUBIN 0.8 mg/dL (0.2-1.0); TOTAL PROTEIN 6.3 g/dL (6.4-8.2)
[2020-07-11 12:51] LABS: POTASSIUM 2.8 mmol/L (3.5-5.1)
--- NOTE | 2020-07-11 13:41 | RAD ---
EXAMINATION: VENOUS LOWER EXT BILATERAL HISTORY: Bruising, swelling for 3 days COMPARISON/CORRELATION: 06/23/2020 FINDINGS: Bilateral lower extremity duplex venous ultrasound exam was performed. Grayscale, color Doppler, and spectral Doppler imaging was performed. Compression and augmentation was performed. The right common femoral vein, superficial femoral vein, popliteal vein, and saphenofemoral junction are normal with no evidence of deep venous thrombus. The visualized calf veins are unremarkable. Normal compressibility and augmentation is evident. The left common femoral vein, superficial femoral vein, popliteal vein, and saphenofemoral junction are normal with no evidence of deep venous thrombus. The visualized calf veins are unremarkable. Normal compressibility and augmentation is evident. Incidental note is made of benign-appearing bilateral groin lymph nodes IMPRESSION: Normal bilateral lower extremity duplex ultrasound exam. No evidence of deep venous thrombus involving the lower extremities. Electronically signed by: Edwar Yu MD (07/11/2020 1:39 PM) [facility]
--- NOTE | 2020-07-11 13:51 | RAD ---
Examination: TESTICULAR/SCROTUM History: pain, swelling / Comparison/Correlation: None Findings: Scrotal ultrasound exam performed. Right testicle measures 3.4 cm x 2.8 cm x 2.4 cm. Left testicle measures 2.8 cm x 3.3 cm x 2.3 cm. Right epididymis measures 1.6 cm x 1.5 x 1.1 cm. Right epididymal cyst measuring up to 1.2 cm diameter. The left epididymis measures 1.3 cm x 1.1 cm x 1.2 cm. Left epididymal cyst measures up to 0.9 cm. There are 2 calcific densities involving the left mid testicle. One of these is punctate on the other measures up to 0.2 cm diameter. No suspicious grouping of calcifications identified. No testicular mass. No masses or loculated collections. Impression: No evidence of testicular torsion or mass. No epididymitis or orchitis. No hydrocele. Electronically signed by: Edwar Yu MD (07/11/2020 1:48 PM) [facility]
[2020-07-11] MEDS ORDERED: POTASSIUM CHLORIDE 20 MEQ TABLET.ER. PO ONE ×2 (14:00→14:15)
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
[2020-07-11 15:16] VITALS: BP 140/65
[2020-07-18] MEDS ORDERED: PANT40TA77 PO (04:07)
== END 2020-07-11 15:37 | disposition home or self-care (01) ==
LOC: ER 11:31
DX: S30.22XA Contusion of scrotum and testes, initial encounter (principal); I12.0 Hypertensive chronic kidney disease with stage 5 chronic kidney disease or end stage renal disease; E11.22 Type 2 diabetes mellitus with diabetic chronic kidney disease; N18.6 End stage renal disease; Z99.2 Dependence on renal dialysis; E78.00 Pure hypercholesterolemia, unspecified; J44.9 Chronic obstructive pulmonary disease, unspecified; E03.9 Hypothyroidism, unspecified; F17.200 Nicotine dependence, unspecified, uncomplicated; R22.43 Localized swelling, mass and lump, lower limb, bilateral; Z95.5 Presence of coronary angioplasty implant and graft; X58.XXXA Exposure to other specified factors, initial encounter; Y93.89 Activity, other specified; Y92.89 Other specified places as the place of occurrence of the external cause; Y99.8 Other external cause status
CPT/HCPCS: 36415; 76870; 80053; 85025; 85610; 85730; 93970; 99285

== ENCOUNTER → 2021-01-05 | Day surgery (SDC) | payer MEDICARE ==
[~2021-01-05] MED LIST changes: +HYDR-2868 PO; +INSU100V35 SQ; +IV RINGERS,LACTATED 1000ML 1,000 ML IV SCH; +LIDOCAINE 2% PF 5 ML VIAL. ONE; +PANT40TA77 PO; +POTA10TA6 PO; +PROPOFOL 10 MG/ML (20ML) VIAL. IV ONE
[2021-01-05] MEDS: IV NORMAL SALINE 1000ML BAG 1,000 ML IV ONE (12:45)
--- NOTE | 2021-01-05 14:42 | PDOC4 ---
PROCEDURE Procedure Colon/biopsies, EGD/biopsies Indication: anemia/wt. loss Meds: per anesthesia Findings: E--Grade 1 at 45cm. G--Normal, antral biopsies. D-Normal to second portion, biopsies. HEBER--lax sphincter, otherwise normal. --'Scope advanced to cecum. Prep good. Mucosa normal. No diverticula. 2, 2-6 mm polyps in ascending, biopsied off. Unable to retroflex in narrow, but otherwise normal rectum. Adequate view of distal rectum obtained. Romeo. well. IMP: Mild GERD Small polyps. REC: Resume meds and diet. Await path. F/u in 2 weeks. SANDRINE ROSS MD Jan 05, 2021 14:42
[2021-01-05 15:10] VITALS: BP 121/58
--- NOTE | 2021-01-08 18:07 | PATHOLOGY ---
[facility] Accession Number: [id number] . 01 Material submitted: . PART A: duodenum - DUODENAL BIOPSY PART B: stomach - ANTRAL BIOPSY PART C: colon - ASCENDING COLON POLYP. Modifiers: ascending . 01 Clinical history: . ANEMIA, WT LOSS . E/C . 02 Diagnosis: A. Duodenal biopsies: - No significant pathologic abnormalities. . B. Gastric biopsies, antrum: - Chronic gastritis, mild. . C. Colon biopsies, ascending colon polyps: - Tubular adenomas. . (JANNIEM:alberto; 01/08/2021) [facility] 01/08/2021 1407 Local . 02 Comment: Sections of the duodenal biopsy reveal multiple segments of small intestine mucosa. Where best oriented, mucosal villi show no sprue-like changes or significant inflammatory changes. . Sections of the gastric biopsy reveal segments of gastric body and gastric antral mucosa. The gastric body mucosa shows mild superficial chronic inflammation. The gastric antral mucosa shows mild chronic inflammation. A properly controlled immunoperoxidase stain for Helicobacter is negative for Helicobacter organisms. . Sections of the ascending colon polyp biopsies reveal tubular adenomas showing no high-grade dysplasia or evidence of malignancy. . (JANNIEM:alberot; 01/08/2021) . 02 Electronically signed: . Marlon Ayala MD, Pathologist NPI- [id number] . 01 Gross description: . A. The specimen is received in formalin, labeled "Pedro Ochoa duodenal BX rule out C. Sprue" and consist of multiple fragments of soft grajeda tissue measuring up to 0.3 cm. Entirely submitted in A1. . B. The specimen is received in formalin, labeled "Pedro Ochoa antral BX rule out H. pylori" and consist of 2 fragments of soft grajeda tissue measuring up to 0.6 cm. Entirely submitted in B1. . C. The specimen is received in formalin, labeled "Pedro Ochoa, ascending colon polyp" and consist of multiple fragments soft grajeda tissue measuring up to 0.4 cm. Entirely submitted in C1.([facility]; 01/07/2021) [facility]NA 01/07/2021 1906 Local . 02 Pathologist provided ICD-10: K29.50, D12.2 . 02 CPT . 011240, 309173, [id number], [id number] Specimen Comment: A courtesy copy of this report has been sent to [phone], [phone] Specimen Comment: [id number] Specimen Comment: Report sent to / DR NUNO Specimen Comment: A duplicate report has been generated due to demographic updates. Performed at: 01 [facility] [address] [facility] [address], [place] [id number] MD Jesus Hampton MD Phone: [phone] Performed at: 02 [facility] [address], [place] [id number] MD Marlon Ayala MD Phone: [phone]
== END | disposition home or self-care (01) ==
LOC: ENDOS 11:49
PROVIDERS: ATTEND Internal Medicine Gastroenterology
DX: R63.4 Abnormal weight loss (principal); D64.9 Anemia, unspecified; K21.00 Gastro-esophageal reflux disease with esophagitis, without bleeding; D12.2 Benign neoplasm of ascending colon; K29.50 Unspecified chronic gastritis without bleeding; K31.89 Other diseases of stomach and duodenum; K63.89 Other specified diseases of intestine; I13.0 Hypertensive heart and chronic kidney disease with heart failure and stage 1 through stage 4 chronic kidney disease, or unspecified chronic kidney disease; I50.9 Heart failure, unspecified; N18.9 Chronic kidney disease, unspecified; I25.10 Atherosclerotic heart disease of native coronary artery without angina pectoris; E11.22 Type 2 diabetes mellitus with diabetic chronic kidney disease; J44.9 Chronic obstructive pulmonary disease, unspecified; M19.90 Unspecified osteoarthritis, unspecified site; E03.9 Hypothyroidism, unspecified; F41.9 Anxiety disorder, unspecified; F32.9 Major depressive disorder, single episode, unspecified; F17.210 Nicotine dependence, cigarettes, uncomplicated; Z99.2 Dependence on renal dialysis; Z87.440 Personal history of urinary (tract) infections; Z79.82 Long term (current) use of aspirin; Z79.84 Long term (current) use of oral hypoglycemic drugs; Z79.899 Other long term (current) drug therapy; Z98.890 Other specified postprocedural states; Z20.822 Contact with and (suspected) exposure to COVID-19
CPT/HCPCS: 43239; 45380; 87426; J2704

== ENCOUNTER 2021-06-16 13:54 | Inpatient (IN) | payer MEDICARE ==
[~2021-06-16] VITALS: Ht 175.3 cm; Wt 73.2 kg
[~2021-06-16 13:54] MED LIST changes: +DOCU-148 PO; -DOCU-153 PO; +HYDR-2761 PO; -IV RINGERS,LACTATED 1000ML 1,000 ML IV SCH; -LIDOCAINE 2% PF 5 ML VIAL. ONE; +LISI20TA18 PO; -PROPOFOL 10 MG/ML (20ML) VIAL. IV ONE; +ZOLP5TAB PO
[2021-06-16] MEDS ORDERED: PROPOFOL 10 MG/ML (20ML) VIAL. IV ONE (14:21)
[2021-06-16] MEDS ORDERED: LIDOCAINE 2% PF 5 ML VIAL. ONE (14:21)
[2021-06-16 14:27] VITALS: BP 134/62
[2021-06-16] MEDS: INSULIN LISPRO 100 UNIT/ML 3ML VIAL for OP,RR ONLY. SQ PRN ×2 (14:42→16:00)
[2021-06-16] MEDS ORDERED: IV NORMAL SALINE 1000ML BAG 1,000 ML IV ONE (14:45)
[2021-06-16] MEDS ORDERED: PHENYLEPHRINE in 0.9% NACL PF 1 MG/10 ML SYRINGE. IV ONE (15:04)
[2021-06-16] MEDS ORDERED: ONDANSETRON PF 4 MG/2 ML VIAL. ONE (15:10)
[2021-06-16] MEDS ORDERED: SEVOFLURANE 31 TO 60 MINUTES. IH ONE (15:10)
[2021-06-16] MEDS ORDERED: MORPHINE SULFATE 2 MG/ML INJ. ONE ×2 (15:34→15:53)
[2021-06-16] MEDS: MORPHINE SULFATE 2 MG/ML INJ. IVP PRN ×4 (15:36→16:36)
[2021-06-16] MEDS ORDERED: IV RINGERS,LACTATED 1000ML 1,000 ML IV SCH (15:45)
[2021-06-16] MEDS ORDERED: PROCHLORPERAZINE 10 MG/2 ML VIAL. IVP PRN (15:45)
[2021-06-16] MEDS ORDERED: fentaNYL PF VIAL 100 MCG/2 ML VIAL IVP PRN (15:45)
[2021-06-16] MEDS ORDERED: fentaNYL PF VIAL 100 MCG/2 ML VIAL ONE (15:58)
[2021-06-16] MEDS: fentaNYL PF VIAL 100 MCG/2 ML VIAL IVP PRN ×2 (16:01→16:23)
[2021-06-16] MEDS ORDERED: HYDROmorphone 2 MG/ML VIAL ONE (16:49)
[2021-06-16] MEDS: HYDROmorphone 2 MG/ML VIAL IVP PRN ×2 (16:50→17:21)
[2021-06-16] MEDS ORDERED: IV NORMAL SALINE 1000ML BAG 1,000 ML IV SCH (17:00)
[2021-06-16] MEDS ORDERED: LEVO100T5 PO (18:43)
[2021-06-16] MEDS ORDERED: INSU100I13 SQ (18:43)
[2021-06-16 19:00] VITALS: BP 108/47
[2021-06-16] MEDS: cefTRIAXone IV Push 1 GM VIAL. IVP SCH ×2 (21:13→21:32)
[2021-06-16] MEDS: IV DEXTROSE 5% - 0.9 % NACL 1,000 ML IV SCH (21:32)
[2021-06-16 23:07] VITALS: BP 136/82
[2021-06-17] MEDS: MORPHINE SULFATE 2 MG/ML INJ. IV PRN ×3 (02:32→10:02)
[2021-06-17 03:36] VITALS: BP 143/59
[2021-06-17 07:38] VITALS: BP 144/57
--- NOTE | 2021-06-17 08:34 | PDOC1 ---
History and Physical Date of Service: DOS: DATE: 06/17/21 TIME: 08:31 Chief Complaint: Chief Complain: Heel ulcer wound infection and breakdown History of Present Illness: HPI: Patient is a 61-year-old male who was sent over from healthcare resort mainly due to ulceration of his right heel that got infected and required a formal I&D by orthopedic surgery. Patient underwent surgery yesterday and tolerated procedure well. Unfortunately, patient is a poor historian and is unsure of how his wounds progressively worsened. Other than that, patient can only state that he is currently just not have any pain nor does he have any fevers, chest pain, abdominal pain, diarrhea or dizziness. Past Medical/Surgical History: PMH/PSH: Past medical history: CAD, hypertension, DVT, BLD, GERD, anemia, diabetes mellitus type 2, hypothyroidism, ESRD on HD SurgHx: Recent left hip replacement Allergies: Allergies: Coded Allergies: No Known Drug Allergies (Unverified , 06/16/21) Family History: Family History: Reviewed with no relevant findings Social History: Social History: He states that he does have a who the did live at home with before he went to rehab for his left hip replacement Current Medications: Current Medications Current Medications Propofol (Diprivan) 200 mg STK-MED ONCE IV ; Start 06/16/21 at 14:21; Stop 06/16/21 at 14:21; Status DC Lidocaine HCl (Lidocaine Pf 2% Vial) 5 ml STK-MED ONCE .ROUTE ; Start 06/16/21 at 14:21; Stop 06/16/21 at 14:21; Status DC Insulin Human Lispro (HumaLOG VIAL for OP,RR ONLY) 0-10 units PRN Q1HR PRN SQ PER PROTOCOL Last administered on 06/16/21at 16:00; Start 06/16/21 at 14:45; Stop 06/16/21 at 21:00; Status DC Sodium Chloride 1,000 ml @ 0 mls/hr 1X ONCE IV Last administered on 06/16/21at 14:44; Start 06/16/21 at 14:45; Stop 06/16/21 at 14:46; Status DC Phenylephrine HCl (PHENYLEPHRINE in 0.9% NACL PF) 1 mg STK-MED ONCE IV ; Start 06/16/21 at 15:04; Stop 06/16/21 at 15:05; Status DC Ondansetron HCl (Zofran) 4 mg STK-MED ONCE .ROUTE ; Start 06/16/21 at 15:10; Stop 06/16/21 at 15:10; Status DC Sevoflurane (Ultane) 30 ml STK-MED ONCE IH ; Start 06/16/21 at 15:10; Stop 06/16/21 at 15:11; Status DC Fentanyl Citrate (Fentanyl 2ml Vial) 25 mcg PRN Q5MIN PRN IVP MILD PAIN 1-3; Start 06/16/21 at 15:45; Stop 06/16/21 at 21:00; Status DC Fentanyl Citrate (Fentanyl 2ml Vial) 50 mcg PRN Q5MIN PRN IVP MODERATE PAIN 4-6 Last administered on 06/16/21at 16:23; Start 06/16/21 at 15:45; Stop 06/16/21 at 21:00; Status DC Morphine Sulfate (Morphine Sulfate) 1 mg PRN Q10MIN PRN IVP SEVERE PAIN 7-10 Last administered on 06/16/21at 16:36; Start 06/16/21 at 15:45; Stop 06/16/21 at 21:00; Status DC Ringer's Solution 1,000 ml @ 30 mls/hr Q24H IV ; Start 06/16/21 at 15:45; Stop 06/16/21 at 23:00; Status DC Hydromorphone HCl (Dilaudid) 0.5 mg PRN Q10MIN PRN IVP SEVERE PAIN 7-10, 2nd CHOICE Last administered on 06/16/21at 17:21; Start 06/16/21 at 15:45; Stop 06/16/21 at 21:00; Status DC Prochlorperazine Edisylate (Compazine) 5 mg PACU PRN PRN IVP NAUSEA, MRX1; Start 06/16/21 at 15:45; Stop 06/16/21 at 21:00; Status DC Morphine Sulfate (Morphine Sulfate) 2 mg STK-MED ONCE .ROUTE ; Start 06/16/21 at 15:34; Stop 06/16/21 at 15:34; Status DC Morphine Sulfate (Morphine Sulfate) 2 mg STK-MED ONCE .ROUTE ; Start 06/16/21 at 15:53; Stop 06/16/21 at 15:53; Status DC Fentanyl Citrate (Fentanyl 2ml Vial) 100 mcg STK-MED ONCE .ROUTE ; Start 06/16/21 at 15:58; Stop 06/16/21 at 15:58; Status DC Ceftriaxone Sodium (Rocephin) 1 gm Q24H IVP Last administered on 06/16/21at 21:32; Start 06/16/21 at 17:00 Sodium Chloride 1,000 ml @ 75 mls/hr [id number] IV Last administered on 06/16/21at 21:13; Start 06/16/21 at 17:00; Stop 06/16/21 at 21:28; Status DC Hydromorphone HCl (Dilaudid) 2 mg STK-MED ONCE .ROUTE ; Start 06/16/21 at 16:49; Stop 06/16/21 at 16:50; Status DC Morphine Sulfate (Morphine Sulfate) 2 mg PRN Q2HR PRN IV PAIN Last administered on 06/17/21at 05:39; Start 06/16/21 at 21:30 Dextrose/Sodium Chloride 1,000 ml @ 75 mls/hr [id number] IV Last administered on 06/16/21at 21:32; Start 06/16/21 at 21:30 Active Scripts Active Hydrocodone-Apap 5-325 (Hydrocodone Bit/Acetaminophen) 1 Tab Tablet 1 Tab PO PRN Q4HRS PRN Admelog (Insulin Lispro) 100 Unit/1 Ml Vial 0 Units SQ TIDWMEALS 30 Days Klor-Con 10 (Potassium Chloride) 10 Meq Tablet.er 2 Tab PO DAILY 30 Days Vitamin C (Ascorbic Acid) 500 Mg Tablet 500 Mg PO DAILY 30 Days Madai-Sean Tablet (Folic Acid/Vitamin B Comp W-C) 0.8 Mg Tablet 1 Tab PO DAILY 30 Days Dok (Docusate Sodium) 100 Mg Capsule 100 Mg PO PRN BID PRN 28 Days Mupirocin Cream (Mupirocin) 15 Gm Cream..g. 1 Jame TP BID 10 Days Culturelle (Lactobacillus Rhamnosus Gg) 1 Each Cap.sprink 1 Cap PO BID 30 Days Budesonide 0.5 Mg/2 Ml Ampul.neb 0.5 Mg NEB RTBID 30 Days Aspirin 81 Mg Tab.chew 81 Mg PO DAILYWBKFT 30 Days Duoneb 0.5-3(2.5) Mg/3 Ml (Albuterol/Ipratropium) 3 Ml Ampul.neb 3 Ml NEB RTQID 30 Days Reported Levothyroxine Sodium 100 Mcg Tablet 300 Mcg PO DAILYAC Lantus Solostar (Insulin Glargine,Hum.rec.anlog) 100 Unit/1 Ml Insuln.pen 10 Unit SQ QHS Atorvastatin Calcium 10 Mg Tablet 10 Mg PO HS Furosemide 80 Mg Tablet 80 Mg PO BID [place] 3 Fish Oil Softgel ([place]-3 Fatty Acids/Fish Oil) 1 Each Capsule.dr 1 Each PO DAILY Calcium Acetate 667 Mg Tablet 667 Mg PO TIDWMEALS Tylenol (Acetaminophen) 325 Mg Tablet 650 Mg PO PRN Q6HRS Ferrous Sulfate 325 Mg Tablet 1 Tab PO DAILY ROS: Review of Systems Review of System REVIEW OF SYSTEMS: GENERAL: Denies weakness SKIN: No bruising, hair changes or rashes. EYES: No blurred, double or loss of vision. NOSE AND THROAT: No history of nosebleeds, hoarseness or sore throat. HEART: No history of palpitations, chest pain or shortness of breath on exertion. LUNGS: Denies cough, hemoptysis, wheezing or shortness of breath. GASTROINTESTINAL: Denies changes in appetite, nausea, vomiting, diarrhea or constipation. GENITOURINARY: No history of frequency, urgency, hesitancy or nocturia. NEUROLOGIC: Denies history of numbness, tingling, or tremor. PSYCHIATRIC: No history of panic, anxiety or depression. ENDOCRINE: No history of heat or cold intolerance, polyuria or polydipsia. EXTREMITIES: Denies joint pain, pain on walking or stiffness. Physical Exam: Vital Signs: Vital Signs Date Time Temp Pulse Resp B/P (MAP) Pulse Ox O2 Delivery O2 Flow Rate FiO2 06/17/21 07:38 98.8 62 14 144/57 (86) 98 Nasal Cannula 3.0 98.8 Physcial Exam: General: Emaciated and disheveled appearance HEENT: Pupils equally round and reactive to light, EOMI, no discharge, normal conjunctiva Neck: Supple, no nuchal rigidity, no JVD, trachea midline, no tenderness Cardiac: RRR, no murmurs, no gallops, no rubs Chest/Lungs: CTAB, no wheeze, no rhonchi, no crackles Abdomen: soft, non-distended, no guarding, no peritoneal signs, non-tender Back: No tenderness Extremities: Left hip incision intact and well-healed. Right foot dressings with strikethrough but no active bleeding or soakage of blood. Left toe and heel wound concerning for necrosis and dry gangrene. Neuro: Alert and oriented x 4, no focal deficits, normal speech Labs: Labs: Laboratory Tests Test 06/16/21 15:43 06/16/21 20:35 06/17/21 00:53 06/17/21 07:42 Glucose (Fingerstick) 137 mg/dL (70-99) 85 mg/dL (70-99) 130 mg/dL (70-99) 156 mg/dL (70-99) Laboratory Tests Test 06/16/21 15:43 06/16/21 20:35 06/17/21 00:53 06/17/21 07:42 Glucose (Fingerstick) 137 mg/dL (70-99) 85 mg/dL (70-99) 130 mg/dL (70-99) 156 mg/dL (70-99) Images: Images PROCEDURE: DUPLEX LOWER EXTREMITY BILAT IMPRESSION: 1. Occlusion of the LEFT posterior tibial artery distally. 2. Moderately elevated velocity within the bilateral superficial femoral arteries and left deep femoral artery, may indicate 50-[address] angiogram can further assess as clinically warranted. 3. Additional mild elevations of velocity bilaterally, as described. 4. Advanced atheromatous plaque. Assessment/Plan Assessment/Plan Right heel nonhealing wound status post I&D 06/16/[address] Joiner Left heel and toe dry gangrene concerning for osteomyelitis Acute distal left posterior tibial artery occlusion Recent left hip surgery Anemia of CKD Mild hyperkalemia ESRD on HD Elevated ALP suggestive of bone disease Debilitation Severe protein malnutrition Bedbound status Admit to hospitalist service for further management ID consult for antibiotic management Orthopedic consult for right foot wound management Wound care consult Pending left foot x-ray to rule out osteomyelitis Consider vascular surgery consult if intervention can improve healing of foot ulcers Nephrology consult for HD Heparin for DVT prophylaxis Protonix GI prophylaxis ADA diet CODE STATUS full Discussed with RN and SW Disposition inpatient management as above DPOA: Justifications for Admission Other Justification ESRD, fluid overload PAWEL GARCÍA MD Jun 17, 2021 08:34
--- NOTE | 2021-06-17 09:50 | RAD ---
US DPLX ARTR EXTREM LOWER BILAT Indication: Reason: lower extremity wounds; diabetic; Leg pain per pt / Spl. Instructions: / History : Comparison: None. Procedure: Real-time grayscale, color flow Doppler, and Doppler spectral waveform analysis of the art erial system of the lower extremity is performed. Findings: Right lower extremity: Advanced atheromatous plaque. Monophasic waveforms throughout the majority of the right lower extremity. Mildly elevated velocity within the right common femoral artery measures 1 71 cm/s and proximal superficial femoral artery 177 cm/s. Moderately elevated velocity within the mid and distal superficial femoral artery 234 cm/s and 286 cm/s. No occlusion. Left lower extremity: Advanced atheromatous plaque. Monophasic waveforms throughout the majority of t he left lower extremity. Moderately elevated velocity within the left deep femoral artery measures 23 5 cm/s and mid superficial femoral artery measures 206 mm/s. Mildly elevated velocity within the prox imal and distal superficial femoral artery 191 and 164 cm/s. Left posterior tibial artery is occluded distally. Mildly elevated velocity within the anterior tibial artery measures 180 cm/s. IMPRESSION: 1. Occlusion of the LEFT posterior tibial artery distally. 2. Moderately elevated velocity within the bilateral superficial femoral arteries and left deep femo ral artery, may indicate 50-[address] angiogram can further assess as clinically warran livia. 3. Additional mild elevations of velocity bilaterally, as described. 4. Advanced atheromatous plaque. Electronically signed by: Brice Alexander DO (06/17/2021 9:47 AM) [id number]
[2021-06-17] MEDS: IV DEXTROSE 5% - 0.9 % NACL 1,000 ML IV SCH (10:01)
--- NOTE | 2021-06-17 10:42 | NUR ---
SW following. Discussed with RN. SW verified pt is from [facility] and can return when medically stable, 3L (uses oxygen at home). Pt will need a COVID test prior to return. Pt had surgery on 06/16/21. SW will continue to follow.
[2021-06-17 11:43] VITALS: BP 128/54
[2021-06-17] MEDS ORDERED: VANCOMYCIN 1.75 GM in IV NORMAL SALINE 500ML BAG 500 ML IV ONE (12:00)
--- NOTE | 2021-06-17 12:20 | PDOC2 ---
CONSULT Date of Consult Date of Consult DATE: 06/17/21 TIME: 12:13 Reason for Consult Reason for Consult: ESRD Identification/Chief Complaint Chief Complaint " I broke my leg " Source Source: Chart review History of Present Illness Reason for Visit: Right heel wound infection, antibiotic management. Patient is a 61-year-old CM with a history of end-stage renal disease, diabetes, hypertension, chronic obstructive pulmonary disease, chronic respiratory fail ure, cardiomyopathy, who underwent left hip fracture repair recently and [facility]. He was transferred here for right heel necrotic wound and underwent I and D yesterday. He complains of pain in the right foot.. Denies any N/V. No CP or SOB, No F/C . No labs available Past Medical History Cardiovascular: CAD, HTN, Hyperlipidemia Pulmonary: Other GI: GERD Heme/Onc: Anemia NOS Psych: Depression Renal/: Chronic renal failure Endocrine: Diabetes, Hypothyroidism, Hyperparathyroidism Past Surgical History Past Surgical History Lt Hip Repair Past Surgical History: Other Family History Family History: Diabetes, Hypertension Social History ALCOHOL: none Drugs: None Lives: with Family Current Medications Current Medications Current Medications Propofol (Diprivan) 200 mg STK-MED ONCE IV ; Start 06/16/21 at 14:21; Stop 06/16/21 at 14:21; Status DC Lidocaine HCl (Lidocaine Pf 2% Vial) 5 ml STK-MED ONCE .ROUTE ; Start 06/16/21 at 14:21; Stop 06/16/21 at 14:21; Status DC Insulin Human Lispro (HumaLOG VIAL for OP,RR ONLY) 0-10 units PRN Q1HR PRN SQ PER PROTOCOL Last administered on 06/16/21at 16:00; Start 06/16/21 at 14:45; Stop 06/16/21 at 21:00; Status DC Sodium Chloride 1,000 ml @ 0 mls/hr 1X ONCE IV Last administered on 06/16/21at 14:44; Start 06/16/21 at 14:45; Stop 06/16/21 at 14:46; Status DC Phenylephrine HCl (PHENYLEPHRINE in 0.9% NACL PF) 1 mg STK-MED ONCE IV ; Start 06/16/21 at 15:04; Stop 06/16/21 at 15:05; Status DC Ondansetron HCl (Zofran) 4 mg STK-MED ONCE .ROUTE ; Start 06/16/21 at 15:10; Stop 06/16/21 at 15:10; Status DC Sevoflurane (Ultane) 30 ml STK-MED ONCE IH ; Start 06/16/21 at 15:10; Stop 06/16/21 at 15:11; Status DC Fentanyl Citrate (Fentanyl 2ml Vial) 25 mcg PRN Q5MIN PRN IVP MILD PAIN 1-3; Start 06/16/21 at 15:45; Stop 06/16/21 at 21:00; Status DC Fentanyl Citrate (Fentanyl 2ml Vial) 50 mcg PRN Q5MIN PRN IVP MODERATE PAIN 4-6 Last administered on 06/16/21at 16:23; Start 06/16/21 at 15:45; Stop 06/16/21 at 21:00; Status DC Morphine Sulfate (Morphine Sulfate) 1 mg PRN Q10MIN PRN IVP SEVERE PAIN 7-10 Last administered on 06/16/21at 16:36; Start 06/16/21 at 15:45; Stop 06/16/21 at 21:00; Status DC Ringer's Solution 1,000 ml @ 30 mls/hr Q24H IV ; Start 06/16/21 at 15:45; Stop 06/16/21 at 23:00; Status DC Hydromorphone HCl (Dilaudid) 0.5 mg PRN Q10MIN PRN IVP SEVERE PAIN 7-10, 2nd CHOICE Last administered on 06/16/21at 17:21; Start 06/16/21 at 15:45; Stop 06/16/21 at 21:00; Status DC Prochlorperazine Edisylate (Compazine) 5 mg PACU PRN PRN IVP NAUSEA, MRX1; Sta rt 06/16/21 at 15:45; Stop 06/16/21 at 21:00; Status DC Morphine Sulfate (Morphine Sulfate) 2 mg STK-MED ONCE .ROUTE ; Start 06/16/21 at 15:34; Stop 06/16/21 at 15:34; Status DC Morphine Sulfate (Morphine Sulfate) 2 mg STK-MED ONCE .ROUTE ; Start 06/16/21 at 15:53; Stop 06/16/21 at 15:53; Status DC Fentanyl Citrate (Fentanyl 2ml Vial) 100 mcg STK-MED ONCE .ROUTE ; Start 06/16/21 at 15:58; Stop 06/16/21 at 15:58; Status DC Ceftriaxone Sodium (Rocephin) 1 gm Q24H IVP Last administered on 06/16/21at 21:32; Start 06/16/21 at 17:00; Stop 06/17/21 at 10:23; Status DC Sodium Chloride 1,000 ml @ 75 mls/hr [id number] IV Last administered on 06/16/21at 21:13; Start 06/16/21 at 17:00; Stop 06/16/21 at 21:28; Status DC Hydromorphone HCl (Dilaudid) 2 mg STK-MED ONCE .ROUTE ; Start 06/16/21 at 16:49; Stop 06/16/21 at 16:50; Status DC Morphine Sulfate (Morphine Sulfate) 2 mg PRN Q2HR PRN IV PAIN Last administered on 06/17/21at 10:02; Start 06/16/21 at 21:30 Dextrose/Sodium Chloride 1,000 ml @ 75 mls/hr [id number] IV Last administered on 06/17/21at 10:01; Start 06/16/21 at 21:30 Piperacillin Sod/ Tazobactam Sod 2.25 gm/Sodium Chloride 50 ml @ 100 mls/hr Q8HRS IV ; Start 06/17/21 at 12:00 Vancomycin HCl (Vanco Per Pharmacy) 1 each PRN DAILY PRN MC SEE COMMENTS; Start 06/17/21 at 10:30 Vancomycin HCl 1.75 gm/Sodium Chloride 500 ml @ 250 mls/hr 1X ONCE IV ; Start 06/17/21 at 12:00; Stop 06/17/21 at 13:59 Active Scripts Active Hydrocodone-Apap 5-325 (Hydrocodone Bit/Acetaminophen) 1 Tab Tablet 1 Tab PO PRN Q4HRS PRN Admelog (Insulin Lispro) 100 Unit/1 Ml Vial 0 Units SQ TIDWMEALS 30 Days Klor-Con 10 (Potassium Chloride) 10 Meq Tablet.er 2 Tab PO DAILY 30 Days Vitamin C (Ascorbic Acid) 500 Mg Tablet 500 Mg PO DAILY 30 Days Madai-Sean Tablet (Folic Acid/Vitamin B Comp W-C) 0.8 Mg Tablet 1 Tab PO DAILY 30 Days Dok (Docusate Sodium) 100 Mg Capsule 100 Mg PO PRN BID PRN 28 Days Mupirocin Cream (Mupirocin) 15 Gm Cream..g. 1 Jame TP BID 10 Days Culturelle (Lactobacillus Rhamnosus Gg) 1 Each Cap.sprink 1 Cap PO BID 30 Days Budesonide 0.5 Mg/2 Ml Ampul.neb 0.5 Mg NEB RTBID 30 Days Aspirin 81 Mg Tab.chew 81 Mg PO DAILYWBKFT 30 Days Duoneb 0.5-3(2.5) Mg/3 Ml (Albuterol/Ipratropium) 3 Ml Ampul.neb 3 Ml NEB RTQID 30 Days Reported Levothyroxine Sodium 100 Mcg Tablet 300 Mcg PO DAILYAC Lantus Solostar (Insulin Glargine,Hum.rec.anlog) 100 Unit/1 Ml Insuln.pen 10 Unit SQ QHS Atorvastatin Calcium 10 Mg Tablet 10 Mg PO HS Furosemide 80 Mg Tablet 80 Mg PO BID [place] 3 Fish Oil Softgel ([place]-3 Fatty Acids/Fish Oil) 1 Each Capsule.dr 1 Each PO DAILY Calcium Acetate 667 Mg Tablet 667 Mg PO TIDWMEALS Tylenol (Acetaminophen) 325 Mg Tablet 650 Mg PO PRN Q6HRS Ferrous Sulfate 325 Mg Tablet 1 Tab PO DAILY Allergies Allergies: Coded Allergies: No Known Drug Allergies (Unverified , 06/16/21) ROS Review of System As per HPI, rest of the ROS is negative Poor Historian Physical Exam Physical Exam GENERAL: NAD HEENT: OM moist , On Chronic home O2 NECK: Supple. LUNGS: Decreased breath sounds at the bases, non labored HEART: S1, S2. ABDOMEN: Soft, nontender. EXTREMITIES: AVG Rt SKIN : No generalized rash, no enriquez Vital Signs Vital Signs Date Time Temp Pulse Resp B/P (MAP) Pulse Ox O2 Delivery O2 Flow Rate FiO2 06/17/21 10:02 Nasal Cannula 3.0 06/17/21 07:38 98.8 62 14 144/57 (86) 98 98.8 Assessment & Plan ESRD - On HD MWF @ [facility] under Dr. Scanlon . Dialysis today. Discussed treatment plan with Rand Right heel wound, status post incision and drainage Status post right great toe nail debridement. Recent history Acute Lt Femoral neck displaced fracture s/p Lt Hip Repair COPD with home O2 dependency history of poorly controlled diabetes Hypertension BP stable Anemia- Hgb Low, Monitor, Add FABIAN Labs Labs Laboratory Tests Test 06/16/21 15:43 06/16/21 20:35 06/17/21 00:53 06/17/21 07:42 Glucose (Fingerstick) 137 mg/dL (70-99) 85 mg/dL (70-99) 130 mg/dL (70-99) 156 mg/dL (70-99) Test 06/17/21 11:45 Glucose (Fingerstick) 159 mg/dL (70-99) Laboratory Tests Test 06/16/21 15:43 06/16/21 20:35 06/17/21 00:53 06/17/21 07:42 Glucose (Fingerstick) 137 mg/dL (70-99) 85 mg/dL (70-99) 130 mg/dL (70-99) 156 mg/dL (70-99) Test 06/17/21 11:45 Glucose (Fingerstick) 159 mg/dL (70-99) Review All relevant outside records, renal labs, imaging studies, telemetry/EKG's were reviewed. Images Images US DPLX ARTR EXTREM LOWER BILAT Indication: Reason: lower extremity wounds; diabetic; Leg pain per pt / Spl. Instructions: / History: Comparison: None. Procedure: Real-time grayscale, color flow Doppler, and Doppler spectral waveform analysis of the arterial system of the lower extremity is performed. Findings: Right lower extremity: Advanced atheromatous plaque. Monophasic waveforms throughout the majority of the right lower extremity. Mildly elevated velocity within the right common femoral artery measures 171 cm/s and proximal superficial femoral artery 177 cm/s. Moderately elevated velocity within the mid and distal superficial femoral artery 234 cm/s and 286 cm/s. No occlusion. Left lower extremity: Advanced atheromatous plaque. Monophasic waveforms throughout the majority of the left lower extremity. Moderately elevated velocity within the left deep femoral artery measures 235 cm/s and mid superficial femoral artery measures 206 mm/s. Mildly elevated velocity within the proximal and distal superficial femoral artery 191 and 164 cm/s. Left posterior tibial artery is occluded distally. Mildly elevated velocity within the anterior tibial artery measures 180 cm/s. IMPRESSION: 1. Occlusion of the LEFT posterior tibial artery distally. 2. Moderately elevated velocity within the bilateral superficial femoral arteries and left deep femoral artery, may indicate 50-[address] angiogram can further assess as clinically warranted. 3. Additional mild elevations of velocity bilaterally, as described. 4. Advanced atheromatous plaque. REBECCA ANGLIN MD Jun 17, 2021 12:20
[2021-06-17] MEDS: VANCOMYCIN PER PHARMACY MC PRN ×2 (12:25→15:49)
[2021-06-17] MEDS: PIPERACILLIN/TAZOBACTAM 2.25 GM in IV NORMAL SALINE 50ML 50 ML IV SCH ×2 (12:51→21:01)
[2021-06-17 13:18] LABS: BASO % 0 % (0-3); EOS # 0.4 x10^3/uL (0.0-0.7); EOS % 3 % (0-3); HEMATOCRIT 23.3 % (39.0-53.0); HEMOGLOBIN 7.5 g/dL (13.0-17.5); LYMPH # 0.8 x10^3/uL (1.0-4.8); LYMPH % 7 % (24-48); MEAN CORPUSCULAR HEMOGLOBIN 31 pg (25-35); MEAN CORPUSCULAR HGB CONC 32 g/dL (31-37); MEAN CORPUSCULAR VOLUME 95 fL (79-100); MONO # 0.5 x10^3/uL (0.0-1.1); MONO % 5 % (0-9); NEUT # 8.8 x10^3/uL (1.8-7.7); NEUT % 84 % (31-73); PLATELET COUNT 263 x10^3/uL (140-400); RED BLOOD COUNT 2.46 x10^6/uL (4.30-5.70); RED CELL DISTRIBUTION WIDTH 21.2 % (11.5-14.5); WHITE BLOOD COUNT 10.5 x10^3/uL (4.0-11.0)
[2021-06-17 13:33] LABS: ALBUMIN 1.7 g/dL (3.4-5.0); ALBUMIN/GLOBULIN RATIO 0.4 (1.0-1.7); CALCIUM 7.9 mg/dL (8.5-10.1); CREATININE 4.8 mg/dL (0.7-1.3); GFR 12.5; TOTAL BILIRUBIN 0.4 mg/dL (0.2-1.0); TOTAL PROTEIN 5.8 g/dL (6.4-8.2)
[2021-06-17 13:34] LABS: C-REACTIVE PROTEIN 158.4 mg/L (0-3.3); POTASSIUM 5.4 mmol/L (3.5-5.1)
[2021-06-17 14:20] LABS: ANISOCYTOSIS MOD; HYPOCHROMIA SLIGHT; PLT ESTIMATE ADEQUATE (ADEQUATE); POLYCHROMASIA SLIGHT
[2021-06-17] MEDS ORDERED: BUDESONIDE 0.5 MG/2 ML NEBU. NEB PRN (14:45)
[2021-06-17] MEDS ORDERED: DOCUSATE SODIUM 100 MG CAPSULE. PO PRN (14:45)
--- NOTE | 2021-06-17 16:17 | NUR ---
Wound Care Received pt consultation for wound care, known from multiple previous admissions. Pt is currently in Dialysis, unable to be seen. Will f/u with pt tomorrow after reaching out to Dr. Joiner for wound care orders s/p surgical I&D.
[2021-06-17] MEDS ORDERED: DIALYSIS PATIENT. MC PRN (16:30)
--- NOTE | 2021-06-17 17:23 | CONS ---
DATE OF CONSULTATION: 06/17/2021 REFERRING PHYSICIAN: Dr. Betancourt. REASON FOR CONSULTATION: Right heel wound infection, antibiotic management. HISTORY OF PRESENT ILLNESS: A 61-year-old male with a history of end-stage renal disease, diabetes, hypertension, chronic obstructive pulmonary disease, chronic respiratory failure, cardiomyopathy, who underwent left hip fracture repair recently, was [facility] [place] healthcare [facility]. He was transferred here for right heel necrotic wound and underwent I and D yesterday by Dr. Joiner. No labs are available at this time. The patient is currently on Rocephin. ID consultation is requested for antibiotic management. The patient did not undergo any imaging. The patient is a poor historian. He complains of pain in the right foot. PAST MEDICAL HISTORY: End-stage renal disease, end-stage COPD, on home O2, history of tobaccoism, diabetes, hypertension, hyperlipidemia, hypothyroidism, history of cardiac arrest during dialysis, status post left hip repair for fracture recently, status post incision and drainage of the right heel wound. PAST SURGICAL HISTORY: Reviewed. ALLERGIES: None. FAMILY HISTORY: As per HPI. SOCIAL HISTORY: As per HPI. CURRENT MEDICATIONS: Rocephin. Other medications reviewed in medication list. REVIEW OF SYSTEMS: The patient is a poor historian, but denies any fevers, chills, nausea, vomiting or diarrhea. Does have pain in both the lower extremities at the operative site. PHYSICAL EXAMINATION: VITAL SIGNS: Temperature 98.8, pulse 62, respiratory rate 14, blood pressure 144/57, oxygen saturation 98% on 3 liters O2 by nasal cannula. GENERAL: Thin male, in no acute distress. HEENT: Normocephalic, atraumatic. Anicteric. No thrush. NECK: Supple. LUNGS: Clear. ____ some scattered rhonchi. HEART: S1, S2. ABDOMEN: Soft, nontender, nondistended. Bowel sounds present. EXTREMITIES: Left hip incision site looks intact. Steri-Strips in place. No drainage. Edema present. Right lower extremity postoperative dressing intact. Some dry blood at the toe, not taken down. DERMATOLOGIC: Warm, dry, no generalized rash. NEUROLOGIC: Alert, awake, oriented x3, some weakness, but able to move all four extremities. LABORATORY DATA: None available. MICRO: None available. IMAGING: None available. ASSESSMENT: 1. Right heel wound, status post incision and drainage. Operative report is pending at this time. 2. Status post right great toe nail debridement. Operative report pending at this time. 3. Status post left hip repair recently for fracture. 4. Diabetes mellitus. 5. End-stage renal disease, on dialysis. 6. Overall generalized poor health. RECOMMENDATIONS: 1. Discontinue Rocephin, start vancomycin and Zosyn renal dosing. 2. Obtain labs . 3. We will follow up on operative culture. 4. Supportive care. 5. Offload. 6. Leg elevation. 7. We will continue to follow. Thank you, Dr. Betancourt, for consulting Infectious Disease to participate in this patient's care. If you have any questions, do not hesitate to contact me. MORE MARTIN: Jamey TID: [id number] MTDD
[2021-06-17] MEDS: CALCIUM ACETATE 667 MG CAPSULE PO SCH (18:25)
[2021-06-17 19:00] VITALS: BP 146/71
[2021-06-17] MEDS: IPRATRPIUM/ALBUTEROL 0.5/2.5MG 3 ML NEBU. NEB SCH (20:10)
[2021-06-17] MEDS: LACTOBACILLUS RHAMNOSUS GG 1 CAPSULE. PO SCH (21:00)
[2021-06-17] MEDS: ATORVASTATIN CALCIUM 10 MG TABLET. PO SCH (21:00)
[2021-06-17] MEDS: INSULIN GLARGINE SYRINGE. SQ SCH (21:02)
[2021-06-17 22:46] VITALS: BP 130/51
--- NOTE | 2021-06-17 23:32 | RAD ---
Exam: Left foot 2 views INDICATION: Ulcer patient in dialysis TECHNIQUE: Frontal and lateral views of the left foot Comparisons: None FINDINGS: Diffuse osteopenia. Bone mineralization is otherwise unremarkable. Joint spaces are well-maintained. No acute or healed fractures. Soft tissues are unremarkable. IMPRESSION: Diffuse osteopenia without underlying osseous abnormality identified. Electronically signed by: Sage Garza MD (06/17/2021 11:30 PM) FARIBA
[2021-06-18 03:00] VITALS: BP 142/53
[2021-06-18] MEDS: IV DEXTROSE 5% - 0.9 % NACL 1,000 ML IV SCH ×2 (04:12→14:46)
[2021-06-18] MEDS: PIPERACILLIN/TAZOBACTAM 2.25 GM in IV NORMAL SALINE 50ML 50 ML IV SCH ×3 (06:30→21:26)
[2021-06-18 07:15] VITALS: BP 128/58
[2021-06-18] MEDS: LEVOTHYROXINE 100 MCG TABLET PO SCH (07:51)
[2021-06-18] MEDS: IPRATRPIUM/ALBUTEROL 0.5/2.5MG 3 ML NEBU. NEB SCH ×4 (08:00→20:00)
[2021-06-18] MEDS: CALCIUM ACETATE 667 MG CAPSULE PO SCH ×3 (09:08→17:25)
[2021-06-18] MEDS: FOLIC/VIT B COMP W-C (RENAL) TABLET. PO SCH (09:08)
[2021-06-18] MEDS: ASPIRIN CHEWABLE 81 MG TABLET. PO SCH (09:08)
[2021-06-18] MEDS: ASCORBIC ACID 500 MG TABLET PO SCH (09:08)
[2021-06-18] MEDS: LACTOBACILLUS RHAMNOSUS GG 1 CAPSULE. PO SCH ×2 (09:08→21:26)
--- NOTE | 2021-06-18 09:27 | PDOC ---
DATE OF SERVICE DATE: 06/18/21 TIME: 09:25 SUBJECTIVE ROS stable OBJECTIVE Vital Signs Vital Signs Date Time Temp Pulse Resp B/P (MAP) Pulse Ox O2 Delivery O2 Flow Rate FiO2 06/18/21 07:15 99.8 62 18 128/58 (81) 97 Nasal Cannula 3.0 99.8 I & 0 Intake and Output 06/18/21 07:00 Intake Total 120 ml Output Total 100 ml Balance 20 ml Intake Oral 120 ml Output Urine Total 100 ml PHYSICAL EXAM Physical Exam GENERAL: NAD HEENT: OM moist , On Chronic home O2 NECK: Supple. LUNGS: Decreased breath sounds at the bases, non labored HEART: S1, S2. ABDOMEN: Soft, nontender. EXTREMITIES: AVG Rt SKIN : No generalized rash, no enriquez DIAGNOSIS/ASSESSMENT Assessment & Plan ESRD - On HD MWF @ [facility] under Dr. Scanlon . No indication for dialysis today HyperKalemia- Mild yesterday , had Dialysis Right heel wound, status post incision and drainage- ID managing Status post right great toe nail debridement. Recent history Acute Lt Femoral neck displaced fracture s/p Lt Hip Repair COPD with home O2 dependency history of poorly controlled diabetes Hypertension BP stable Anemia- Hgb Low, Monitor, Add FABIAN COMMENT/RELEVANT DATA Meds Current Medications Medications (Trade) Dose Ordered Sig/Celi Start Time Stop Time Status Last Admin Dose Admin Acetaminophen/ Hydrocodone Bitart (Lortab 5/325) 1 tab PRN Q4HRS PRN 06/17/21 14:45 Albuterol/ Ipratropium (Duoneb) 3 ml RTQID 06/17/21 16:00 06/17/21 20:10 3 ML Ascorbic Acid (Vitamin C) 500 mg DAILY 06/18/21 09:00 06/18/21 09:08 500 MG Aspirin (Aspirin Chewable) 81 mg DAILYWBKFT 06/18/21 08:00 06/18/21 09:08 81 MG Atorvastatin Calcium (Lipitor) 10 mg HS 06/17/21 21:00 06/17/21 21:00 10 MG Budesonide (Pulmicort) 0.5 mg PRN BID PRN 06/17/21 14:45 Calcium Acetate (Phoslo) 667 mg TIDWMEALS 06/17/21 17:00 06/18/21 09:08 667 MG Ceftriaxone Sodium (Rocephin) 1 gm Q24H 06/16/21 17:00 06/17/21 10:23 DC 06/16/21 21:32 1 GM Dextrose/Sodium Chloride 1,000 ml @ 75 mls/hr [id number] 06/16/21 21:30 06/18/21 04:12 75 MLS/HR Docusate Sodium (Colace) 100 mg PRN BID PRN 06/17/21 14:45 Fentanyl Citrate (Fentanyl 2ml Vial) 100 mcg STK-MED ONCE 06/16/21 15:58 06/16/21 15:58 DC Hydromorphone HCl (Dilaudid) 2 mg STK-MED ONCE 06/16/21 16:49 06/16/21 16:50 DC Info (PHARMACY MONITORING -- do not chart) 1 each PRN DAILY PRN 06/17/21 16:30 Insulin Glargine (Lantus Syringe) 10 unit QHS 06/17/21 21:00 06/17/21 21:02 10 UNIT Insulin Human Lispro (HumaLOG VIAL for OP,RR ONLY) 0-10 units PRN Q1HR PRN 06/16/21 14:45 06/16/21 21:00 DC 06/16/21 16:00 2 UNIT Lactobacillus Rhamnosus (Culturelle) 1 cap BID 06/17/21 21:00 06/18/21 09:08 1 CAP Levothyroxine Sodium (Synthroid) 300 mcg DAILYAC 06/18/21 07:30 06/18/21 07:51 300 MCG Lidocaine HCl (Lidocaine Pf 2% Vial) 5 ml STK-MED ONCE 06/16/21 14:21 06/16/21 14:21 DC Morphine Sulfate (Morphine Sulfate) 2 mg PRN Q2HR PRN 06/16/21 21:30 06/17/21 10:02 2 MG Ondansetron HCl (Zofran) 4 mg STK-MED ONCE 06/16/21 15:10 06/16/21 15:10 DC Phenylephrine HCl (PHENYLEPHRINE in 0.9% NACL PF) 1 mg STK-MED ONCE 06/16/21 15:04 06/16/21 15:05 DC Piperacillin Sod/ Tazobactam Sod 2.25 gm/Sodium Chloride 50 ml @ 100 mls/hr Q8HRS 06/17/21 12:00 06/18/21 06:30 100 MLS/HR Prochlorperazine Edisylate (Compazine) 5 mg PACU PRN PRN 06/16/21 15:45 06/16/21 21:00 DC Propofol (Diprivan) 200 mg STK-MED ONCE 06/16/21 14:21 06/16/21 14:21 DC Ringer's Solution 1,000 ml @ 30 mls/hr Q24H 06/16/21 15:45 06/16/21 23:00 DC Sevoflurane (Ultane) 30 ml STK-MED ONCE 06/16/21 15:10 06/16/21 15:11 DC Sodium Chloride 1,000 ml @ 75 mls/hr [id number] 06/16/21 17:00 06/16/21 21:28 DC 06/16/21 21:13 75 MLS/HR Vancomycin HCl (Vanco Per Pharmacy) 1 each PRN DAILY PRN 06/17/21 10:30 06/17/21 15:49 1 EACH Vancomycin HCl (Vancomycin Random Level) 1 each 1X ONCE 06/19/21 06:00 06/19/21 06:01 Vancomycin HCl 1.75 gm/Sodium Chloride 500 ml @ 250 mls/hr 1X ONCE 06/17/21 12:00 06/17/21 13:59 DC 06/17/21 14:10 250 MLS/HR Vitamin B Complex/ Vitamin C (Madai-Sean) 1 tab DAILY 06/18/21 09:00 06/18/21 09:08 1 TAB Lab Laboratory Tests Test 06/17/21 11:15 06/17/21 11:45 06/17/21 13:10 06/17/21 21:10 SARS-CoV-2 RNA (HERI) Negative (Negative) Glucose (Fingerstick) 159 mg/dL (70-99) 196 mg/dL (70-99) White Blood Count 10.5 x10^3/uL (4.0-11.0) Red Blood Count 2.46 x10^6/uL (4.30-5.70) Hemoglobin 7.5 g/dL (13.0-17.5) Hematocrit 23.3 % (39.0-53.0) Mean Corpuscular Volume 95 fL (79-100) Mean Corpuscular Hemoglobin 31 pg (25-35) Mean Corpuscular Hemoglobin Concent 32 g/dL (31-37) Red Cell Distribution Width 21.2 % (11.5-14.5) Platelet Count 263 x10^3/uL (140-400) Neutrophils (%) (Auto) 84 % (31-73) Lymphocytes (%) (Auto) 7 % (24-48) Monocytes (%) (Auto) 5 % (0-9) Eosinophils (%) (Auto) 3 % (0-3) Basophils (%) (Auto) 0 % (0-3) Neutrophils # (Auto) 8.8 x10^3/uL (1.8-7.7) Lymphocytes # (Auto) 0.8 x10^3/uL (1.0-4.8) Monocytes # (Auto) 0.5 x10^3/uL (0.0-1.1) Eosinophils # (Auto) 0.4 x10^3/uL (0.0-0.7) Basophils # (Auto) 0.0 x10^3/uL (0.0-0.2) Platelet Estimate Adequate (ADEQUATE) Polychromasia Slight Hypochromasia Slight Basophilic Stippling Present Anisocytosis Mod Erythrocyte Sedimentation Rate 83 (0-15) Sodium Level 139 mmol/L (136-145) Potassium Level 5.4 mmol/L (3.5-5.1) Chloride Level 103 mmol/L (98-107) Carbon Dioxide Level 29 mmol/L (21-32) Anion Gap 7 (6-14) Blood Urea Nitrogen 46 mg/dL (8-26) Creatinine 4.8 mg/dL (0.7-1.3) Estimated GFR (Cockcroft-Gault) 12.5 BUN/Creatinine Ratio 10 (6-20) Glucose Level 187 mg/dL (70-99) Calcium Level 7.9 mg/dL (8.5-10.1) Total Bilirubin 0.4 mg/dL (0.2-1.0) Aspartate Amino Transf (AST/SGOT) 17 U/L (15-37) Alanine Aminotransferase (ALT/SGPT) 8 U/L (16-63) Alkaline Phosphatase 200 U/L (46-116) C-Reactive Protein, Quantitative 158.4 mg/L (0-3.3) Total Protein 5.8 g/dL (6.4-8.2) Albumin 1.7 g/dL (3.4-5.0) Albumin/Globulin Ratio 0.4 (1.0-1.7) Test 06/18/21 07:07 Glucose (Fingerstick) 126 mg/dL (70-99) Results All relevant outside records, renal labs, imaging studies, telemetry/EKG's were reviewed. Justicifation of Admission Dx: Justifications for Admission: Justification of Admission Dx: N/A REBECCA ANGLIN MD Jun 18, 2021 09:27
--- NOTE | 2021-06-18 10:17 | RAD ---
XR FOOT_RIGHT 3 VIEWS Clinical indications: Reason: HEEL WOUND, evaluation for osteomyelitis. Findings: There is a soft tissue defect of the heel.No soft tissue air is seen otherwise. Old healed fracture of the distal fifth metatarsal bone is seen. No acute fracture or dislocation or osteolytic process is evident. IMPRESSION: No acute osseous abnormality is evident. No osteomyelitis is seen radiographically. Electronically signed by: Jean Manning MD (06/18/2021 10:15 AM) [id number]
--- NOTE | 2021-06-18 10:35 | PDOC ---
Infectious Disease Note Subjective: Subjective Patient without complaints Pain is under control at bedside Requesting evaluation of right upper extremity edema which is chronic Per patient has chronic nonhealing right heel wound since he was transferred to [facility] rehab before last admission Vital Signs: Vital Signs Vital Signs Date Time Temp Pulse Resp B/P (MAP) Pulse Ox O2 Delivery O2 Flow Rate FiO2 06/18/21 07:15 99.8 62 18 128/58 (81) 97 Nasal Cannula 3.0 99.8 Physical Exam: PHYSICAL EXAM GENERAL: Thin male, in no acute distress. HEENT: Normocephalic, atraumatic. Anicteric. No thrush. NECK: Supple. LUNGS: Clear.some scattered rhonchi. HEART: S1, S2. ABDOMEN: Soft, nontender, nondistended. Bowel sounds present. EXTREMITIES: Left hip incision site looks intact. Steri-Strips in place. No drainage. Bilateral lower extremity and right upper extremity edema present. Right lower extremity postoperative dressing intact. Some dry blood at the toe, not taken down. DERMATOLOGIC: Warm, dry, no generalized rash. NEUROLOGIC: Alert, awake, oriented x3, some weakness, but able to move all four extremities. Medications: Inpatient Meds: Medications reviewed. Labs: Lab Laboratory Tests Test 06/17/21 11:15 06/17/21 11:45 06/17/21 13:10 06/17/21 21:10 SARS-CoV-2 RNA (HERI) Negative (Negative) Glucose (Fingerstick) 159 mg/dL (70-99) 196 mg/dL (70-99) White Blood Count 10.5 x10^3/uL (4.0-11.0) Red Blood Count 2.46 x10^6/uL (4.30-5.70) Hemoglobin 7.5 g/dL (13.0-17.5) Hematocrit 23.3 % (39.0-53.0) Mean Corpuscular Volume 95 fL (79-100) Mean Corpuscular Hemoglobin 31 pg (25-35) Mean Corpuscular Hemoglobin Concent 32 g/dL (31-37) Red Cell Distribution Width 21.2 % (11.5-14.5) Platelet Count 263 x10^3/uL (140-400) Neutrophils (%) (Auto) 84 % (31-73) Lymphocytes (%) (Auto) 7 % (24-48) Monocytes (%) (Auto) 5 % (0-9) Eosinophils (%) (Auto) 3 % (0-3) Basophils (%) (Auto) 0 % (0-3) Neutrophils # (Auto) 8.8 x10^3/uL (1.8-7.7) Lymphocytes # (Auto) 0.8 x10^3/uL (1.0-4.8) Monocytes # (Auto) 0.5 x10^3/uL (0.0-1.1) Eosinophils # (Auto) 0.4 x10^3/uL (0.0-0.7) Basophils # (Auto) 0.0 x10^3/uL (0.0-0.2) Platelet Estimate Adequate (ADEQUATE) Polychromasia Slight Hypochromasia Slight Basophilic Stippling Present Anisocytosis Mod Erythrocyte Sedimentation Rate 83 (0-15) Sodium Level 139 mmol/L (136-145) Potassium Level 5.4 mmol/L (3.5-5.1) Chloride Level 103 mmol/L (98-107) Carbon Dioxide Level 29 mmol/L (21-32) Anion Gap 7 (6-14) Blood Urea Nitrogen 46 mg/dL (8-26) Creatinine 4.8 mg/dL (0.7-1.3) Estimated GFR (Cockcroft-Gault) 12.5 BUN/Creatinine Ratio 10 (6-20) Glucose Level 187 mg/dL (70-99) Calcium Level 7.9 mg/dL (8.5-10.1) Total Bilirubin 0.4 mg/dL (0.2-1.0) Aspartate Amino Transf (AST/SGOT) 17 U/L (15-37) Alanine Aminotransferase (ALT/SGPT) 8 U/L (16-63) Alkaline Phosphatase 200 U/L (46-116) C-Reactive Protein, Quantitative 158.4 mg/L (0-3.3) Total Protein 5.8 g/dL (6.4-8.2) Albumin 1.7 g/dL (3.4-5.0) Albumin/Globulin Ratio 0.4 (1.0-1.7) Test 06/18/21 07:07 Glucose (Fingerstick) 126 mg/dL (70-99) Objective: Assessment: 1. Chronic nonhealing right heel wound, status post incision and drainage on June 16. 2. Status post right great toe nail debridement June 16 3. Status post left hip repair recently for fracture. 4. Diabetes mellitus. 5. End-stage renal disease, on dialysis. Right upper extremity edema 6. Overall generalized poor health. Plan: Plan of Care Continue vancomycin and Zosyn renal dosing. Wound care as directed by wound team Follow-up right foot x-ray Left foot x-ray reviewed Follow-up on intraoperative cultures Offload Leg elevation Continue supportive care Discussed with at bedside Discussed with nursing staff NORA KOROMA MD Jun 18, 2021 10:35
[2021-06-18] MEDS ORDERED: EPOETIN ALFA-EPBX for ESRD 20,000 UNIT/ML VIAL. SQ ONE (11:00)
[2021-06-18 11:04] VITALS: BP 129/59
--- NOTE | 2021-06-18 11:11 | NUR ---
SW following. Discussed with RN, updates faxed to [facility]. MEÑO will continue to follow.
[2021-06-18] MEDS: HYDROcodone/APAP 5/325MG 1 TAB TABLET PO PRN ×2 (12:02→17:25)
--- NOTE | 2021-06-18 12:22 | PDOC ---
[employer] PROGRESS NOTE Date of Service DOS: DATE: 06/18/21 TIME: 12:19 Chief Complaint Chief Complaint Right heel nonhealing wound status post I&D 06/16/[address] Joiner Left heel and toe dry gangrene concerning for osteomyelitis Acute distal left posterior tibial artery occlusion Recent left hip surgery Anemia of CKD Mild hyperkalemia ESRD on HD Elevated ALP suggestive of bone disease Debilitation Severe protein malnutrition Bedbound status Right upper extremity swelling concerning for DVT versus obstructed fistula Pending DVT ultrasound and duplex of the right upper extremity Vascular surgery consult for left heel wound and posterior tibial artery occlusion on the left side. ID consult for antibiotic management Orthopedic consult for right foot wound management Wound care consult Pending left foot x-ray to rule out osteomyelitis Consider vascular surgery consult if intervention can improve healing of foot ulcers Nephrology consult for HD Heparin for DVT prophylaxis Protonix GI prophylaxis ADA diet CODE STATUS full Discussed with RN and SW Disposition inpatient management as above DPOA: History of Present Illness History of Present Illness 61-year-old male who was sent over from healthcare resort mainly due to ulceration of his right heel that got infected and required a formal I&D by orthopedic surgery. Patient underwent surgery yesterday and tolerated procedure well. Unfortunately, patient is a poor historian and is unsure of how his wounds progressively worsened. Other than that, patient can only state that he is currently just not have any pain nor does he have any fevers, chest pain, abdominal pain, diarrhea or dizziness. 06/18/2021 No acute events overnight. Patient seen and examined bedside. T-max of 100.9 overnight continues to be on vancomycin and Zosyn. Patient also has right upper extremity swelling. at bedside states that patient has not really been moving his right arm since his fistula. Patient has all the equipment to help mature the fistula but unsure if patient has been compliant with exercises. Patient's chart, labs, images were reviewed and discussed with RN Vitals/I&O Vitals/I&O: Vital Signs Date Time Temp Pulse Resp B/P (MAP) Pulse Ox O2 Delivery O2 Flow Rate FiO2 06/18/21 12:02 Nasal Cannula 3.0 06/18/21 11:16 95 06/18/21 11:04 99.1 62 16 129/59 (82) 99.1 I & O 06/17/21 06/17/21 06/18/21 15:00 23:00 07:00 Intake Total 120 ml Output Total 100 ml Balance 120 ml -100 ml Physical Exam Physical Exam: GENERAL: Thin male, in no acute distress. HEENT: Normocephalic, atraumatic. Anicteric. No thrush. NECK: Supple. LUNGS: Clear.some scattered rhonchi. HEART: S1, S2. ABDOMEN: Soft, nontender, nondistended. Bowel sounds present. EXTREMITIES: Left hip incision site looks intact. Steri-Strips in place. No drainage. Bilateral lower extremity and right upper extremity edema present. Right lower extremity postoperative dressing intact. Some dry blood at the toe, not taken down. DERMATOLOGIC: Warm, dry, no generalized rash. NEUROLOGIC: Alert, awake, oriented x3, some weakness, but able to move all four extremities. General: Alert, Oriented X3, Cooperative Heart: Regular rate Lungs: Clear Extremities: Other (Left hip incision intact and well-healed. Right foot dressings with strikethrough but no active bleeding or soakage of blood. Left toe and heel wound concerning for necrosis and dry gangrene.) Labs Labs: Laboratory Tests Test 06/17/21 13:10 06/17/21 21:10 06/18/21 07:07 06/18/21 11:47 White Blood Count 10.5 x10^3/uL (4.0-11.0) Red Blood Count 2.46 x10^6/uL (4.30-5.70) Hemoglobin 7.5 g/dL (13.0-17.5) Hematocrit 23.3 % (39.0-53.0) Mean Corpuscular Volume 95 fL (79-100) Mean Corpuscular Hemoglobin 31 pg (25-35) Mean Corpuscular Hemoglobin Concent 32 g/dL (31-37) Red Cell Distribution Width 21.2 % (11.5-14.5) Platelet Count 263 x10^3/uL (140-400) Neutrophils (%) (Auto) 84 % (31-73) Lymphocytes (%) (Auto) 7 % (24-48) Monocytes (%) (Auto) 5 % (0-9) Eosinophils (%) (Auto) 3 % (0-3) Basophils (%) (Auto) 0 % (0-3) Neutrophils # (Auto) 8.8 x10^3/uL (1.8-7.7) Lymphocytes # (Auto) 0.8 x10^3/uL (1.0-4.8) Monocytes # (Auto) 0.5 x10^3/uL (0.0-1.1) Eosinophils # (Auto) 0.4 x10^3/uL (0.0-0.7) Basophils # (Auto) 0.0 x10^3/uL (0.0-0.2) Platelet Estimate Adequate (ADEQUATE) Polychromasia Slight Hypochromasia Slight Basophilic Stippling Present Anisocytosis Mod Erythrocyte Sedimentation Rate 83 (0-15) Sodium Level 139 mmol/L (136-145) Potassium Level 5.4 mmol/L (3.5-5.1) Chloride Level 103 mmol/L (98-107) Carbon Dioxide Level 29 mmol/L (21-32) Anion Gap 7 (6-14) Blood Urea Nitrogen 46 mg/dL (8-26) Creatinine 4.8 mg/dL (0.7-1.3) Estimated GFR (Cockcroft-Gault) 12.5 BUN/Creatinine Ratio 10 (6-20) Glucose Level 187 mg/dL (70-99) Calcium Level 7.9 mg/dL (8.5-10.1) Total Bilirubin 0.4 mg/dL (0.2-1.0) Aspartate Amino Transf (AST/SGOT) 17 U/L (15-37) Alanine Aminotransferase (ALT/SGPT) 8 U/L (16-63) Alkaline Phosphatase 200 U/L (46-116) C-Reactive Protein, Quantitative 158.4 mg/L (0-3.3) Total Protein 5.8 g/dL (6.4-8.2) Albumin 1.7 g/dL (3.4-5.0) Albumin/Globulin Ratio 0.4 (1.0-1.7) Glucose (Fingerstick) 196 mg/dL (70-99) 126 mg/dL (70-99) 87 mg/dL (70-99) Comment Review of Relevant I have reviewed the following items yesenia (where applicable) has been applied. Medications: Current Medications Medications (Trade) Dose Ordered Sig/Celi Route PRN Reason Start Time Stop Time Status Last Admin Dose Admin Lactobacillus Rhamnosus (Culturelle) 1 cap BID PO 06/17/21 21:00 06/18/21 09:08 Ascorbic Acid (Vitamin C) 500 mg DAILY PO 06/18/21 09:00 06/18/21 09:08 Aspirin (Aspirin Chewable) 81 mg DAILYWBKFT PO 06/18/21 08:00 06/18/21 09:08 Atorvastatin Calcium (Lipitor) 10 mg HS PO 06/17/21 21:00 06/17/21 21:00 Vitamin B Complex/ Vitamin C (Madai-Sean) 1 tab DAILY PO 06/18/21 09:00 06/18/21 09:08 Acetaminophen/ Hydrocodone Bitart (Lortab 5/325) 1 tab PRN Q4HRS PRN PO PAIN 06/17/21 14:45 06/18/21 12:02 Albuterol/ Ipratropium (Duoneb) 3 ml RTQID NEB 06/17/21 16:00 06/18/21 11:16 Levothyroxine Sodium (Synthroid) 300 mcg DAILYAC PO 06/18/21 07:30 06/18/21 07:51 Calcium Acetate (Phoslo) 667 mg TIDWMEALS PO 06/17/21 17:00 06/18/21 12:01 Insulin Glargine (Lantus Syringe) 10 unit QHS SQ 06/17/21 21:00 06/17/21 21:02 Epoetin Luís-epbx (RETACRIT for ESRD PTS) 20,000 unit 1X ONCE SQ 06/18/21 11:00 06/18/21 11:01 DC 06/18/21 12:02 Justifications for Admission Other Justification ESRD, fluid overload PAWEL GARCÍA MD Jun 18, 2021 12:22
--- NOTE | 2021-06-18 13:48 | RAD ---
Right upper extremity venous duplex study 06/18/2021 1:45 PM Clinical History: Reason: Right upper extremity edema: Technique: Using a combination of real time ultrasound imaging and color-flow and pulse Doppler imagi ng techniques, including spectral analysis, graded compression and augmentation, duplex evaluation of the deep venous system of the right upper extremity was performed. Multiple images were obtained. Findings: There is no sonographic evidence of deep venous thrombosis involving the visualized deep ve nous structures of the right upper extremity Impression: No evidence of deep venous thrombosis involving the right upper extremity Electronically signed by: David Elliott MD (06/18/2021 1:46 PM) [id number]
--- NOTE | 2021-06-18 14:02 | RAD ---
Arterial duplex ultrasound, right upper extremity 06/18/2021 INDICATION: Swelling of the right arm COMPARISON STUDY: Upper extremity fistulogram November 26, 2019. Discussion: Ultrasound evaluation of the major vessels arteries of the right upper extremity was perf ormed including color Doppler imaging spectral analysis. Severe diffuse atherosclerotic vascular dise ase appears to be present. Visualized right subclavian artery appears to be grossly patent. The patie nt has a previously placed innominate venous stent which is not appear to be evaluated. There is a ce phalic vein stent with some focal narrowing at the junction of the stent and subclavian vein. There i s a focal elevation of velocity at this point change could represent hemodynamically significant sten osis. There is also visual stenosis and marked elevation of velocities at the AV anastomosis. The rig ht axillary artery is grossly patent. The right brachial artery is heavily calcified. Areas of focal narrowing are seen could reflect stenoses. The right renal artery and ulnar artery appear grossly pat ent. IMPRESSION: 1. Diffuse atherosclerotic vascular disease 2. Areas of increased velocity within the right brachial artery. A significant stenosis not excluded. 3. Possible area of stenosis involving the junction of the right cephalic and subclavian venous stent 4. Possible hematemesis significant stenosis at the arteriovenous anastomosis. 5. Consider right upper extremity fistulogram for further characterization as clinically indicated. Electronically signed by: David Elliott MD (06/18/2021 2:00 PM) [id number]
[2021-06-18] MEDS: MORPHINE SULFATE 2 MG/ML INJ. IV PRN (14:51)
[2021-06-18 15:09] VITALS: BP 122/51
--- NOTE | 2021-06-18 15:29 | PDOC2 ---
CONSULT Date of Service Date of Service DATE: 06/18/21 TIME: 15:16 Reason for Consult Reason for Consult: Peripheral arterial disease, bilateral heel wounds Referring Physician Referring Physician: Dr. Betancourt Identification/Chief Complaint Chief Complaint Poorly healing bilateral heel wounds Source Source: Chart review, Patient History of Present Illness Reason for Visit: This is a 61-year-old male with a history of end-stage renal disease and diabetes who presents with bilateral heel wounds, right worse than left. Patient underwent debridement yesterday by orthopedic surgeon Dr. Joiner. His right heel is necrotic and extensive penetrating down to bone and extends across a large area of his heel and ankle. In addition the patient has a left heel eschar that appears to be last invasive. According to patient's up until a few months ago the patient was ambulating without difficulty. He started having falls which subsequently resulted in rehab placement. He developed pressure injury on bilateral heels at that time. Patient discharged to home and then sustained a left hip fracture. Patient underwent left total hip arthroplasty. Patient went to rehab following that hospitalization. During his time at rehab his heel wounds had remained stable then his right heel progressively worsened and thus he was admitted to the hospital. He does have a few low-grade temperature elevations but denies chills. Patient denies any nausea vomiting or diarrhea. Past Medical History Cardiovascular: CAD, HTN, Hyperlipidemia Pulmonary: Other GI: GERD Heme/Onc: Anemia NOS Psych: Depression Renal/: Chronic renal failure Endocrine: Diabetes, Hypothyroidism, Hyperparathyroidism Past Surgical History Past Surgical History: Other (Right heel debridement, left hip replacement) Family History Family History: Diabetes, Hypertension Social History ALCOHOL: none Drugs: None Lives: with Family Current Medications Current Medications Current Medications Propofol (Diprivan) 200 mg STK-MED ONCE IV ; Start 06/16/21 at 14:21; Stop 06/16/21 at 14:21; Status DC Lidocaine HCl (Lidocaine Pf 2% Vial) 5 ml STK-MED ONCE .ROUTE ; Start 06/16/21 at 14:21; Stop 06/16/21 at 14:21; Status DC Insulin Human Lispro (HumaLOG VIAL for OP,RR ONLY) 0-10 units PRN Q1HR PRN SQ PER PROTOCOL Last administered on 06/16/21at 16:00; Start 06/16/21 at 14:45; Stop 06/16/21 at 21:00; Status DC Sodium Chloride 1,000 ml @ 0 mls/hr 1X ONCE IV Last administered on 06/16/21at 14:44; Start 06/16/21 at 14:45; Stop 06/16/21 at 14:46; Status DC Phenylephrine HCl (PHENYLEPHRINE in 0.9% NACL PF) 1 mg STK-MED ONCE IV ; Start 06/16/21 at 15:04; Stop 06/16/21 at 15:05; Status DC Ondansetron HCl (Zofran) 4 mg STK-MED ONCE .ROUTE ; Start 06/16/21 at 15:10; Stop 06/16/21 at 15:10; Status DC Sevoflurane (Ultane) 30 ml STK-MED ONCE IH ; Start 06/16/21 at 15:10; Stop 06/16/21 at 15:11; Status DC Fentanyl Citrate (Fentanyl 2ml Vial) 25 mcg PRN Q5MIN PRN IVP MILD PAIN 1-3; Start 06/16/21 at 15:45; Stop 06/16/21 at 21:00; Status DC Fentanyl Citrate (Fentanyl 2ml Vial) 50 mcg PRN Q5MIN PRN IVP MODERATE PAIN 4-6 Last administered on 06/16/21at 16:23; Start 06/16/21 at 15:45; Stop 06/16/21 at 21:00; Status DC Morphine Sulfate (Morphine Sulfate) 1 mg PRN Q10MIN PRN IVP SEVERE PAIN 7-10 Last administered on 06/16/21at 16:36; Start 06/16/21 at 15:45; Stop 06/16/21 at 21:00; Status DC Ringer's Solution 1,000 ml @ 30 mls/hr Q24H IV ; Start 06/16/21 at 15:45; Stop 06/16/21 at 23:00; Status DC Hydromorphone HCl (Dilaudid) 0.5 mg PRN Q10MIN PRN IVP SEVERE PAIN 7-10, 2nd CHOICE Last administered on 06/16/21at 17:21; Start 06/16/21 at 15:45; Stop 06/16/21 at 21:00; Status DC Prochlorperazine Edisylate (Compazine) 5 mg PACU PRN PRN IVP NAUSEA, MRX1; Start 06/16/21 at 15:45; Stop 06/16/21 at 21:00; Status DC Morphine Sulfate (Morphine Sulfate) 2 mg STK-MED ONCE .ROUTE ; Start 06/16/21 at 15:34; Stop 06/16/21 at 15:34; Status DC Morphine Sulfate (Morphine Sulfate) 2 mg STK-MED ONCE .ROUTE ; Start 06/16/21 at 15:53; Stop 06/16/21 at 15:53; Status DC Fentanyl Citrate (Fentanyl 2ml Vial) 100 mcg STK-MED ONCE .ROUTE ; Start 06/16/21 at 15:58; Stop 06/16/21 at 15:58; Status DC Ceftriaxone Sodium (Rocephin) 1 gm Q24H IVP Last administered on 06/16/21at 21:32; Start 06/16/21 at 17:00; Stop 06/17/21 at 10:23; Status DC Sodium Chloride 1,000 ml @ 75 mls/hr [id number] IV Last administered on 06/16/21at 21:13; Start 06/16/21 at 17:00; Stop 06/16/21 at 21:28; Status DC Hydromorphone HCl (Dilaudid) 2 mg STK-MED ONCE .ROUTE ; Start 06/16/21 at 16:49; Stop 06/16/21 at 16:50; Status DC Morphine Sulfate (Morphine Sulfate) 2 mg PRN Q2HR PRN IV PAIN Last administered on 06/18/21at 14:51; Start 06/16/21 at 21:30 Dextrose/Sodium Chloride 1,000 ml @ 75 mls/hr [id number] IV Last administered on 06/18/21at 14:46; Start 06/16/21 at 21:30 Piperacillin Sod/ Tazobactam Sod 2.25 gm/Sodium Chloride 50 ml @ 100 mls/hr Q8HRS IV Last administered on 06/18/21at 14:46; Start 06/17/21 at 12:00 Vancomycin HCl (Vanco Per Pharmacy) 1 each PRN DAILY PRN MC SEE COMMENTS Last administered on 06/17/21at 15:49; Start 06/17/21 at 10:30 Vancomycin HCl 1.75 gm/Sodium Chloride 500 ml @ 250 mls/hr 1X ONCE IV Last administered on 06/17/21at 14:10; Start 06/17/21 at 12:00; Stop 06/17/21 at 13:59; Status DC Lactobacillus Rhamnosus (Culturelle) 1 cap BID PO Last administered on 06/18/21at 09:08; Start 06/17/21 at 21:00 Ascorbic Acid (Vitamin C) 500 mg DAILY PO Last administered on 06/18/21at 09:08; Start 06/18/21 at 09:00 Aspirin (Aspirin Chewable) 81 mg DAILYWBKFT PO Last administered on 06/18/21at 09:08; Start 06/18/21 at 08:00 Atorvastatin Calcium (Lipitor) 10 mg HS PO Last administered on 06/17/21at 21:00; Start 06/17/21 at 21:00 Budesonide (Pulmicort) 0.5 mg PRN BID PRN NEB SHORTNESS OF BREATH; Start 06/17/21 at 14:45 Docusate Sodium (Colace) 100 mg PRN BID PRN PO CONSTIPATION; Start 06/17/21 at 14:45 Vitamin B Complex/ Vitamin C (Madai-Sean) 1 tab DAILY PO Last administered on 06/18/21at 09:08; Start 06/18/21 at 09:00 Acetaminophen/ Hydrocodone Bitart (Lortab 5/325) 1 tab PRN Q4HRS PRN PO PAIN Last administered on 06/18/21at 12:02; Start 06/17/21 at 14:45 Albuterol/ Ipratropium (Duoneb) 3 ml RTQID NEB Last administered on 06/18/21at 11:16; Start 06/17/21 at 16:00 Levothyroxine Sodium (Synthroid) 300 mcg DAILYAC PO Last administered on 06/18/21at 07:51; Start 06/18/21 at 07:30 Calcium Acetate (Phoslo) 667 mg TIDWMEALS PO Last administered on 06/18/21at 12:01; Start 06/17/21 at 17:00 Insulin Glargine (Lantus Syringe) 10 unit QHS SQ Last administered on 06/17/21at 21:02; Start 06/17/21 at 21:00 Vancomycin HCl (Vancomycin Random Level) 1 each 1X ONCE MC ; Start 06/19/21 at 06:00; Stop 9/24/21 at 06:01 Info (PHARMACY MONITORING -- do not chart) 1 each PRN DAILY PRN MC SEE COMMENTS; Start 06/17/21 at 16:30 Epoetin Luís-epbx (RETACRIT for ESRD PTS) 20,000 unit 1X ONCE SQ Last administered on 06/18/21at 12:02; Start 06/18/21 at 11:00; Stop 06/18/21 at 11:01; Status DC Active Scripts Active Hydrocodone-Apap 5-325 (Hydrocodone Bit/Acetaminophen) 1 Tab Tablet 1 Tab PO PRN Q4HRS PRN Admelog (Insulin Lispro) 100 Unit/1 Ml Vial 0 Units SQ TIDWMEALS 30 Days Klor-Con 10 (Potassium Chloride) 10 Meq Tablet.er 2 Tab PO DAILY 30 Days Vitamin C (Ascorbic Acid) 500 Mg Tablet 500 Mg PO DAILY 30 Days Madai-Sean Tablet (Folic Acid/Vitamin B Comp W-C) 0.8 Mg Tablet 1 Tab PO DAILY 30 Days Dok (Docusate Sodium) 100 Mg Capsule 100 Mg PO PRN BID PRN 28 Days Mupirocin Cream (Mupirocin) 15 Gm Cream..g. 1 Jame TP BID 10 Days Culturelle (Lactobacillus Rhamnosus Gg) 1 Each Cap.sprink 1 Cap PO BID 30 Days Budesonide 0.5 Mg/2 Ml Ampul.neb 0.5 Mg NEB RTBID 30 Days Aspirin 81 Mg Tab.chew 81 Mg PO DAILYWBKFT 30 Days Duoneb 0.5-3(2.5) Mg/3 Ml (Albuterol/Ipratropium) 3 Ml Ampul.neb 3 Ml NEB RTQID 30 Days Reported Levothyroxine Sodium 100 Mcg Tablet 300 Mcg PO DAILYAC Lantus Solostar (Insulin Glargine,Hum.rec.anlog) 100 Unit/1 Ml Insuln.pen 10 Unit SQ QHS Atorvastatin Calcium 10 Mg Tablet 10 Mg PO HS Furosemide 80 Mg Tablet 80 Mg PO BID [place] 3 Fish Oil Softgel ([place]-3 Fatty Acids/Fish Oil) 1 Each Capsule.dr 1 Each PO DAILY Calcium Acetate 667 Mg Tablet 667 Mg PO TIDWMEALS Tylenol (Acetaminophen) 325 Mg Tablet 650 Mg PO PRN Q6HRS Ferrous Sulfate 325 Mg Tablet 1 Tab PO DAILY Allergies Allergies: Coded Allergies: No Known Drug Allergies (Unverified , 9/21/21) ROS Review of System Constitutional: positive for fever Eyes: Denies any visual disturbances HENT: Denies nasal congestion or sore throat Respiratory: Denies cough or shortness of breath Cardiovascular: Denies any palpitations or chest pain GI: Denies abdominal pain, nausea, vomiting, bloody stools or diarrhea : Denies dysuria or hematuria Musculoskeletal: As per HPI Integument: As per HPI Neurologic: No gross deficits Endocrine: Diabetes Physical Exam Physical Exam General: Alert and oriented X3 HEENT: Atraumatic, Pupils equal, round. Mucous membranes moist. Cardiac: Heart rate regular. Lungs: Non-labored respirations. On O2 per NC. Abdomen: Soft, nontender, nondistended, no palpable masses. Extremities: 2+ palpable bilateral femoral and popliteal pulses. Patient has biphasic flow via the left dorsalis pedis and peroneal arteries right arm with palpable thrill and bruit upper arm access. moderate forearm and hand swelling. Musculoskeletal: Moves all extremities Skin: large right heel necrotic wound extending into bone. left heel with large dark eschar, no fluctuance or bogginess, unstageable. feet warm, mild erythema bilaterally. Neurological: Motor and sensation intact. Psychiatry: No depression or anxiety Vitals VITALS Vital Signs Date Time Temp Pulse Resp B/P (MAP) Pulse Ox O2 Delivery O2 Flow Rate FiO2 06/18/21 14:51 Nasal Cannula 3.0 06/18/21 11:16 95 06/18/21 11:04 99.1 62 16 129/59 (82) 99.1 Labs Labs Laboratory Tests Test 06/16/21 15:43 06/16/21 20:35 06/17/21 00:53 06/17/21 07:42 Glucose (Fingerstick) 137 mg/dL (70-99) 85 mg/dL (70-99) 130 mg/dL (70-99) 156 mg/dL (70-99) Test 06/17/21 11:15 06/17/21 11:45 06/17/21 13:10 06/17/21 21:10 SARS-CoV-2 RNA (HERI) Negative (Negative) Glucose (Fingerstick) 159 mg/dL (70-99) 196 mg/dL (70-99) White Blood Count 10.5 x10^3/uL (4.0-11.0) Red Blood Count 2.46 x10^6/uL (4.30-5.70) Hemoglobin 7.5 g/dL (13.0-17.5) Hematocrit 23.3 % (39.0-53.0) Mean Corpuscular Volume 95 fL (79-100) Mean Corpuscular Hemoglobin 31 pg (25-35) Mean Corpuscular Hemoglobin Concent 32 g/dL (31-37) Red Cell Distribution Width 21.2 % (11.5-14.5) Platelet Count 263 x10^3/uL (140-400) Neutrophils (%) (Auto) 84 % (31-73) Lymphocytes (%) (Auto) 7 % (24-48) Monocytes (%) (Auto) 5 % (0-9) Eosinophils (%) (Auto) 3 % (0-3) Basophils (%) (Auto) 0 % (0-3) Neutrophils # (Auto) 8.8 x10^3/uL (1.8-7.7) Lymphocytes # (Auto) 0.8 x10^3/uL (1.0-4.8) Monocytes # (Auto) 0.5 x10^3/uL (0.0-1.1) Eosinophils # (Auto) 0.4 x10^3/uL (0.0-0.7) Basophils # (Auto) 0.0 x10^3/uL (0.0-0.2) Platelet Estimate Adequate (ADEQUATE) Polychromasia Slight Hypochromasia Slight Basophilic Stippling Present Anisocytosis Mod Erythrocyte Sedimentation Rate 83 (0-15) Sodium Level 139 mmol/L (136-145) Potassium Level 5.4 mmol/L (3.5-5.1) Chloride Level 103 mmol/L (98-107) Carbon Dioxide Level 29 mmol/L (21-32) Anion Gap 7 (6-14) Blood Urea Nitrogen 46 mg/dL (8-26) Creatinine 4.8 mg/dL (0.7-1.3) Estimated GFR (Cockcroft-Gault) 12.5 BUN/Creatinine Ratio 10 (6-20) Glucose Level 187 mg/dL (70-99) Calcium Level 7.9 mg/dL (8.5-10.1) Total Bilirubin 0.4 mg/dL (0.2-1.0) Aspartate Amino Transf (AST/SGOT) 17 U/L (15-37) Alanine Aminotransferase (ALT/SGPT) 8 U/L (16-63) Alkaline Phosphatase 200 U/L (46-116) C-Reactive Protein, Quantitative 158.4 mg/L (0-3.3) Total Protein 5.8 g/dL (6.4-8.2) Albumin 1.7 g/dL (3.4-5.0) Albumin/Globulin Ratio 0.4 (1.0-1.7) Test 06/18/21 07:07 06/18/21 11:47 Glucose (Fingerstick) 126 mg/dL (70-99) 87 mg/dL (70-99) Laboratory Tests Test 06/17/21 21:10 06/18/21 07:07 06/18/21 11:47 Glucose (Fingerstick) 196 mg/dL (70-99) 126 mg/dL (70-99) 87 mg/dL (70-99) Images Images Findings: Right lower extremity: Advanced atheromatous plaque. Monophasic waveforms throughout the majority of the right lower extremity. Mildly elevated velocity within the right common femoral artery measures 171 cm/s and proximal superficial femoral artery 177 cm/s. Moderately elevated velocity within the mid and distal superficial femoral artery 234 cm/s and 286 cm/s. No occlusion. Left lower extremity: Advanced atheromatous plaque. Monophasic waveforms throughout the majority of the left lower extremity. Moderately elevated mirna ocity within the left deep femoral artery measures 235 cm/s and mid superficial femoral artery measures 206 mm/s. Mildly elevated velocity within the proximal and distal superficial femoral artery 191 and 164 cm/s. Left posterior tibial artery is occluded distally. Mildly elevated velocity within the anterior tibial artery measures 180 cm/s. IMPRESSION: 1. Occlusion of the LEFT posterior tibial artery distally. 2. Moderately elevated velocity within the bilateral superficial femoral arteries and left deep femoral artery, may indicate 50-[address] angiogram can further assess as clinically warranted. 3. Additional mild elevations of velocity bilaterally, as described. 4. Advanced atheromatous plaque. Assessment/Plan Assessment/Plan 61-year-old male with bilateral nonhealing heel ulcers. He is status post debridement of his right heel ulcer, the ulcer was exctensive and there is a large area of exposed calcaneous. Left heel with large dark eschar. Hand-held Doppler suggest biphasic flow within the dorsalis pedis and peroneal arteries on the left and palpable popliteal pulse on the right. Patient should have adequate arterial circulation to heal a left heel debridement and right below knee amputation. His right heel wound is extensive and nonsalvageable would recommend a right below-knee amputation. Recommend left heel debridement, possible wound vac and strict off-loading. I did discuss our recommendations with Dr. Joiner. Dr. Joiner will plan right below-knee amputation of left heel debridement hopefully tomorrow. Dr. Martinez's discussed the plan of care with the patient and his and he is agreeable to proceed. Upper extremity ultrasound was being performed for left arm swelling, will review results and make additional recommendations. MAIE BOWEN AQUA AMMONIA OPERATOR Jun 18, 2021 15:29
--- NOTE | 2021-06-18 16:15 | NUR ---
Wound Care Wound Type/Assessment: Pt seen for wound care consultation with nurse practitioner Yuridia Ontiveros, who has been following pt at the R and sent to [facility] for admission re: R heel ulcer. The left heel presents with intact eschar. No fluctuance or bogginess present. No surrounding erythema or edema present. Bilateral great toes present with intact eschar. No surrounding erythema or edema present. The right heel is post debridement with eschar throughout and is palpable to bone. Odor is present. Treatment Recommendations/Plan: Dean all wounds with Betadine, leave toes SINA, L heel cover with Aquacel foam, R heel wrapped with ABD and kerlix until amputation. Buttocks/coccyx areas healed, continue with Calazime or A&D ointment, turn [id number]. Education provided: to pt and re: offloading and turning Offloading surface/device: wedge, pillows, Heelmedix boot that pt's is bringing from home for L foot. Recommended Referrals/Tests: Discharge Recommendations for dressings: will continue to follow through hospitalization.
--- NOTE | 2021-06-18 17:16 | PDOC2 ---
Chief Complaint: Chief Complaint: Bilateral heel and great toe eschar Vital Signs: Vital Signs: Vital Signs Date Time Temp Pulse Resp B/P (MAP) Pulse Ox O2 Delivery O2 Flow Rate FiO2 06/17/21 07:38 98.8 62 14 144/57 (86) 98 Nasal Cannula 3.0 98.8 Vital Signs Date Time Temp Pulse Resp B/P (MAP) Pulse Ox O2 Delivery O2 Flow Rate FiO2 06/18/21 15:09 98.2 61 20 122/51 (74) 97 Nasal Cannula 3.0 98.2 Allergies: Allergies: Allergies Coded Allergies Type Severity Reaction Last Updated Verified No Known Drug Allergies 06/16/21 No Medications: Home Meds Active Scripts Hydrocodone Bit/Acetaminophen (HYDROCODONE-APAP 5-325 ) 1 Tab Tablet, 1 TAB PO PRN Q4HRS PRN for PAIN, #30 TAB Prov:CORNELIO OATES MD 04/23/21 Insulin Lispro (Admelog) 100 Unit/1 Ml Vial, 0 UNITS SQ TIDWMEALS for diabetes for 30 Days, #2 EACH Prov:PABLO SHERMAN MD 07/31/20 Potassium Chloride (Klor-Con 10) 10 Meq Tablet.er, 2 TAB PO DAILY for Diuretic Use for 30 Days, #60 TAB 0 Refills Prov:JOSE TRAVIS MD 07/25/20 Ascorbic Acid (VITAMIN C) 500 Mg Tablet, 500 MG PO DAILY for SUPPLEMENT for 30 Days, #30 TAB Prov:PABLO SHERMAN MD 11/26/19 Folic Acid/Vitamin B Comp W-C (DORIE-CONSTANCE TABLET) 0.8 Mg Tablet, 1 TAB PO DAILY for SUPPLEMENT for 30 Days, #30 TAB Prov:PABLO SHERMAN MD 11/26/19 Docusate Sodium (DOK) 100 Mg Capsule, 100 MG PO PRN BID PRN for CONSTIPATION for 28 Days, #30 CAP Prov:PABLO SHERMAN MD 11/26/19 Mupirocin Calcium (MUPIROCIN CREAM) 15 Gm Cream..g., 1 NENA TP BID for BURN for 10 Days, #20 EACH Prov:PABLO SHERMAN MD 09/13/19 Lactobacillus Rhamnosus Gg (CULTURELLE) 1 Each Cap.sprink, 1 CAP PO BID for SUPPLEMENT for 30 Days, #60 CAP Prov:PABLO SHERMAN MD 09/13/19 Budesonide (BUDESONIDE) 0.5 Mg/2 Ml Ampul.neb, 0.5 MG NEB RTBID for copd for 30 Days, #60 EACH Prov:PABLO SHERMAN MD 08/29/18 Aspirin (ASPIRIN) 81 Mg Tab.chew, 81 MG PO DAILYWBKFT for heart health for 30 Days, #30 TAB.CHEW Prov:PABLO SHERMAN MD 08/29/18 Ipratropium/Albuterol Sulfate (DUONEB 0.5-3(2.5) MG/3 ML) 3 Ml Ampul.neb, 3 ML NEB RTQID for copd for 30 Days, #120 EACH Prov:PABLO SHERMAN MD 08/29/18 Reported Medications Levothyroxine Sodium (LEVOTHYROXINE SODIUM) 100 Mcg Tablet, 300 MCG PO DAILYAC for THYROID SUPPLEMENT, #30 TAB 0 Refills 06/16/21 Insulin Glargine,Hum.rec.anlog (LANTUS SOLOSTAR) 100 Unit/1 Ml Insuln.pen, 10 UNIT SQ QHS for hyperglycemia, #15 ML 3 Refills 06/16/21 Atorvastatin Calcium (ATORVASTATIN CALCIUM) 10 Mg Tablet, 10 MG PO HS for FOR CHOLESTEROL, #30 TAB 0 Refills 05/29/21 Furosemide (FUROSEMIDE) 80 Mg Tablet, 80 MG PO BID for diuretic, CHF, TAB 02/18/19 [place]-3 Fatty Acids/Fish Oil ([place] 3 FISH OIL SOFTGEL) 1 Each Capsule.dr, 1 EACH PO DAILY for supplement, CAP 11/07/18 Calcium Acetate (CALCIUM ACETATE) 667 Mg Tablet, 667 MG PO TIDWMEALS for DIALYSIS PATIENTS, CAP 11/07/18 Acetaminophen (TYLENOL) 325 Mg Tablet, 650 MG PO PRN Q6HRS for mild pain, TAB 10/02/18 Ferrous Sulfate (FERROUS SULFATE) 325 Mg Tablet, 1 TAB PO DAILY for Dialysis, #30 TAB 3 Refills 09/15/18 PCP: PCP: Dr Betancourt Pain: Pain Location: Foot (Right foot with palpation and cleansing) [facility] Patient with longstanding history of difficulty to heal wounds. Patient most recently seen by this nurse practitioner at the [facility] where he was admitted for retirement services following left hip surgery. Patient was admitted to the [facility] with bilateral heel ulcerations and bilateral great toe ulcerations. Wounds at the time of admiss ion worse intact stable eschar. Patient was evaluated on 06/15 and edges of right heel eschar had began to separate, there is active drainage and odor. Patient was brought to the hospital for unstable eschar requiring surgical debridement. Patient was taken to the OR per Dr. Joiner, his orthopedic surgeon in the right heel was debrided down to the calcaneus. Vascular team was consulted secondary to poor Doppler studies, their recommendation was for a BKA of the right, stating there is adequate blood flow for healing of the left heel and great toe as well adequate blood flow for healing after BKA. Surgical History Right heel debridement, left hip replacement PSH Prior to hospitalization, patient lived at home and was cared for by his . Patient does have a history of tobacco abuse, denies alcohol use or illicit drug use. Review of Systems: Patient complains of painful symptoms of his right foot with palpation and cleansing. Patient also with complaints of left hip pain with transfers and movement. Patient does complain of depressive symptoms secondary to being told he needed a BKA. Patient denies suicidal ideations. Patient states that he has been eating and drinking well without nausea, vomiting or diarrhea. Patient complains of chronic productive cough secondary to his COPD. Patient states that he has baseline O2 requirements are 5 L. Physical Exam Patient awake and alert 61-year-old male. Patient irritable in conversation. Vital signs are stable. Patient is afebrile. Respirations are even and unlabored. Patient is on supplemental oxygen at 5 L per nasal cannula. Abdomen is soft, nondistended and nontender to palpation. The left hip presents with intact eron without surrounding erythema or edema. No active drainage. The left heel presents with intact eschar. No fluctuance or bogginess present. No surrounding erythema or edema present. Bilateral great toes present with intact eschar. No surrounding erythema or edema present. The right heel is post debridement with eschar throughout and is palpable to bone. Odor is present. A/P 1) Unstageable pressure wounds to bilateral heels and great toes. Underlying peripheral artery disease. Right heel status post OR debridement -Dr. Joiner, Ortho, plans to take patient back to the OR for right BKA d/t e xtensive nonviable tissue and bone exposed. -Vascular team consulted and stated patient with adequate blood flow to the right lower extremity for healing status post BKA and adequate blood flow to the left lower extremity for healing of current wounds. -[place] intact eschar daily to left heel and great toes and leave open to air -Ensure areas are offloaded at all times. Recommend heel medics boot to left heel to help with offloading. -Dietary consulting to ensure patient with adequate protein intake for optimal wound healing -Wound care team will continue to follow the patient throughout his stay and upon discharge at the [facility] [place] KIERAN FALL APRN Jun 18, 2021 17:16
[2021-06-18 19:00] VITALS: BP 153/59
[2021-06-18] MEDS: ATORVASTATIN CALCIUM 10 MG TABLET. PO SCH (21:26)
[2021-06-18] MEDS: INSULIN GLARGINE SYRINGE. SQ SCH (21:39)
--- NOTE | 2021-06-18 22:41 | PDOC4 ---
Operative Note Operative Note Date of surgery: 06/16/2021 (original note was dictated but apparently deleted/lost) Preoperative diagnosis: Right heel ulcer with wet gangrene and odorous drainage Postoperative diagnosis: Same with infection under right great toenail and superficial ulcer at tip of great right toe Operative procedure: Irrigation debridement of right heel ulcer skin subcutaneous tissue and removal of right great toenail Surgeon: Rhys Anesthesia: General Estimated blood loss: 40 cc Complications: None Specimens: None Operative indications: Patient is a 61-year-old male familiar to me from treatment of a left hip fracture previously and a recommendation for musculoskeletal oncology referral of a pathologic fracture to his right shoulder. He has not yet had an opportunity to receive that musculoskeletal oncology consult and instead was at the [facility] rehabilitation facility and developed worsening of his heel ulcers and was seen by wound care clinic nurse who had contacted me for consultation for surgical debridement of the right heel. No beds were available so he was admitted day of surgery and I covered with him the concern that while we can debride the infected tissue I am concerned that he is going to have a lot of difficulty potentially obtaining coverage over the area or healing due to his medical issues. We talked about the possibility of additional procedures being required and even a chance of amputation. We also discussed the fact that it would be important to proceed to minimize the chance that infection would spread potentially through the body and particularly to the recently placed hip components. He wishes to proceed with the debridement procedure having given informed consent Operative text: Patient was identified procedure verified patient placed in supine position on the operating table. After adequate amounts of general anesthesia were administered the right lower extremity was prepped and draped in standard sterile fashion and no tourniquet was used. There was odorous drainage and eschar over the entire heel area approximately from the insertion of the Achilles to the anterior aspect of the calcaneus and necrotic skin and subcutaneous tissue were debrided sharply with a scalpel and skin edges debrided back to healthy bleeding skin and subcutaneous tissue. Bleeding points controlled by electrocautery through irrigation carried out with normal saline solution using pulse lavage. He was noted to have infection underneath the great toenail which was removed from the nailbed gently and the ulcer at the tip of the great toe appeared to be relatively superficial. Both areas were dressed with Xeroform gauze followed by sterile dressings patient was returned to recovery room in stable condition having tolerated procedure well BRANDO ARREOLA MD Jun 18, 2021 22:41
[2021-06-19 03:00] VITALS: BP 162/59
[2021-06-19] MEDS: IV DEXTROSE 5% - 0.9 % NACL 1,000 ML IV SCH ×2 (05:55→22:08)
[2021-06-19] MEDS: PIPERACILLIN/TAZOBACTAM 2.25 GM in IV NORMAL SALINE 50ML 50 ML IV SCH ×3 (05:56→22:07)
[2021-06-19] MEDS ORDERED: fentaNYL PF VIAL 100 MCG/2 ML VIAL IVP PRN ×4 (06:00→12:30)
[2021-06-19] MEDS ORDERED: PROCHLORPERAZINE 10 MG/2 ML VIAL. IVP PRN ×2 (06:00→12:30)
[2021-06-19] MEDS ORDERED: VANCOMYCIN RANDOM LEVEL. MC ONE (06:00)
[2021-06-19] MEDS ORDERED: MORPHINE SULFATE 2 MG/ML INJ. IVP PRN ×2 (06:00→12:30)
[2021-06-19] MEDS ORDERED: IV RINGERS,LACTATED 1000ML 1,000 ML IV SCH ×2 (06:00→12:30)
[2021-06-19] MEDS ORDERED: HYDROmorphone 2 MG/ML VIAL IVP PRN ×2 (06:00→12:30)
[2021-06-19 06:59] LABS: CALCIUM 7.5 mg/dL (8.5-10.1); CREATININE 4.2 mg/dL (0.7-1.3); GFR 14.6; POTASSIUM 3.9 mmol/L (3.5-5.1)
[2021-06-19 07:00] VITALS: BP 146/61
[2021-06-19] MEDS: IPRATRPIUM/ALBUTEROL 0.5/2.5MG 3 ML NEBU. NEB SCH ×4 (07:06→19:34)
[2021-06-19] MEDS: LEVOTHYROXINE 100 MCG TABLET PO SCH (07:30)
[2021-06-19] MEDS: ASPIRIN CHEWABLE 81 MG TABLET. PO SCH (08:00)
[2021-06-19] MEDS: CALCIUM ACETATE 667 MG CAPSULE PO SCH ×3 (08:00→17:00)
--- NOTE | 2021-06-19 08:22 | PDOC ---
PROGRESS NOTES Date of Service DATE: 06/19/21 TIME: 08:18 Subjective Subjective Problems overnight: Vascular surgery provided input recommending below knee amputation on the right due to multiple factors. Left heel also has some eschar that could use debridement Objective Vital Signs Vital Signs Date Time Temp Pulse Resp B/P (MAP) Pulse Ox O2 Delivery O2 Flow Rate FiO2 06/19/21 07:06 100 Nasal Cannula 3.0 06/19/21 03:00 98.5 60 16 162/59 (93) 98.5 Physical Exam Right heel with poor vascularity to wound right tip of toe also has an ulcer and nailbed of the right great toe intact after nail removal. Left heel has eschar posterior inferiorly and not currently broken down or draining but clearly not viable tissue Labs Laboratory Tests Test 06/17/21 11:15 06/17/21 11:45 06/17/21 13:10 06/17/21 21:10 SARS-CoV-2 RNA (HERI) Negative (Negative) Glucose (Fingerstick) 159 mg/dL (70-99) 196 mg/dL (70-99) White Blood Count 10.5 x10^3/uL (4.0-11.0) Red Blood Count 2.46 x10^6/uL (4.30-5.70) Hemoglobin 7.5 g/dL (13.0-17.5) Hematocrit 23.3 % (39.0-53.0) Mean Corpuscular Volume 95 fL (79-100) Mean Corpuscular Hemoglobin 31 pg (25-35) Mean Corpuscular Hemoglobin Concent 32 g/dL (31-37) Red Cell Distribution Width 21.2 % (11.5-14.5) Platelet Count 263 x10^3/uL (140-400) Neutrophils (%) (Auto) 84 % (31-73) Lymphocytes (%) (Auto) 7 % (24-48) Monocytes (%) (Auto) 5 % (0-9) Eosinophils (%) (Auto) 3 % (0-3) Basophils (%) (Auto) 0 % (0-3) Neutrophils # (Auto) 8.8 x10^3/uL (1.8-7.7) Lymphocytes # (Auto) 0.8 x10^3/uL (1.0-4.8) Monocytes # (Auto) 0.5 x10^3/uL (0.0-1.1) Eosinophils # (Auto) 0.4 x10^3/uL (0.0-0.7) Basophils # (Auto) 0.0 x10^3/uL (0.0-0.2) Platelet Estimate Adequate (ADEQUATE) Polychromasia Slight Hypochromasia Slight Basophilic Stippling Present Anisocytosis Mod Erythrocyte Sedimentation Rate 83 (0-15) Sodium Level 139 mmol/L (136-145) Potassium Level 5.4 mmol/L (3.5-5.1) Chloride Level 103 mmol/L (98-107) Carbon Dioxide Level 29 mmol/L (21-32) Anion Gap 7 (6-14) Blood Urea Nitrogen 46 mg/dL (8-26) Creatinine 4.8 mg/dL (0.7-1.3) Estimated GFR (Cockcroft-Gault) 12.5 BUN/Creatinine Ratio 10 (6-20) Glucose Level 187 mg/dL (70-99) Calcium Level 7.9 mg/dL (8.5-10.1) Total Bilirubin 0.4 mg/dL (0.2-1.0) Aspartate Amino Transf (AST/SGOT) 17 U/L (15-37) Alanine Aminotransferase (ALT/SGPT) 8 U/L (16-63) Alkaline Phosphatase 200 U/L (46-116) C-Reactive Protein, Quantitative 158.4 mg/L (0-3.3) Total Protein 5.8 g/dL (6.4-8.2) Albumin 1.7 g/dL (3.4-5.0) Albumin/Globulin Ratio 0.4 (1.0-1.7) Test 06/18/21 07:07 06/18/21 11:47 06/18/21 16:31 06/18/21 21:01 Glucose (Fingerstick) 126 mg/dL (70-99) 87 mg/dL (70-99) 109 mg/dL (70-99) 163 mg/dL (70-99) Test 06/19/21 06:25 06/19/21 08:08 Sodium Level 141 mmol/L (136-145) Potassium Level 3.9 mmol/L (3.5-5.1) Chloride Level 104 mmol/L (98-107) Carbon Dioxide Level 31 mmol/L (21-32) Anion Gap 6 (6-14) Blood Urea Nitrogen 28 mg/dL (8-26) Creatinine 4.2 mg/dL (0.7-1.3) Estimated GFR (Cockcroft-Gault) 14.6 Glucose Level 93 mg/dL (70-99) Calcium Level 7.5 mg/dL (8.5-10.1) Random Vancomycin Level 12.8 mcg/mL Glucose (Fingerstick) 68 mg/dL (70-99) Laboratory Tests Test 06/18/21 11:47 06/18/21 16:31 06/18/21 21:01 06/19/21 06:25 Glucose (Fingerstick) 87 mg/dL (70-99) 109 mg/dL (70-99) 163 mg/dL (70-99) Sodium Level 141 mmol/L (136-145) Potassium Level 3.9 mmol/L (3.5-5.1) Chloride Level 104 mmol/L (98-107) Carbon Dioxide Level 31 mmol/L (21-32) Anion Gap 6 (6-14) Blood Urea Nitrogen 28 mg/dL (8-26) Creatinine 4.2 mg/dL (0.7-1.3) Estimated GFR (Cockcroft-Gault) 14.6 Glucose Level 93 mg/dL (70-99) Calcium Level 7.5 mg/dL (8.5-10.1) Random Vancomycin Level 12.8 mcg/mL Test 06/19/21 08:08 Glucose (Fingerstick) 68 mg/dL (70-99) Assessment Assessment POD#irrigation debridement of right heel and right great toe Plan Plan of Care Appreciate vascular surgery input, I agree with the assessment of a recommended below-knee amputation due to his difficulties with circulation nutrition and other multiple medical factors inability to obtain adequate coverage over the right heel. We will plan below-knee amputation today as well as debridement of the left heel with ongoing wound care Justicifation of Admission Dx: Justifications for Admission: Justification of Admission Dx: N/A BRANDO ARREOLA MD Jun 19, 2021 08:22
[2021-06-19] MEDS: LACTOBACILLUS RHAMNOSUS GG 1 CAPSULE. PO SCH ×2 (09:00→22:08)
[2021-06-19] MEDS: FOLIC/VIT B COMP W-C (RENAL) TABLET. PO SCH (09:00)
[2021-06-19] MEDS: ASCORBIC ACID 500 MG TABLET PO SCH (09:00)
--- NOTE | 2021-06-19 09:01 | PDOC ---
Infectious Disease Note Subjective: Subjective Patient is awaiting right BKA and debridement of left heel wound Pains of pain in right lower extremity at bedside Vital Signs: Vital Signs Vital Signs Date Time Temp Pulse Resp B/P (MAP) Pulse Ox O2 Delivery O2 Flow Rate FiO2 06/19/21 07:06 100 Nasal Cannula 3.0 06/19/21 03:00 98.5 60 16 162/59 (93) 98.5 Physical Exam: PHYSICAL EXAM GENERAL: Thin male, in no acute distress. HEENT: Normocephalic, atraumatic. Anicteric. No thrush. NECK: Supple. LUNGS: Clear.some scattered rhonchi. HEART: S1, S2. ABDOMEN: Soft, nontender, nondistended. Bowel sounds present. EXTREMITIES: Left hip incision site looks intact. Steri-Strips in place. No drainage. Bilateral lower extremity and right upper extremity edema present. Right lower extremity dressing taken down, wound changes noted, dry first great toe Some dry blood at the toe, not taken down. DERMATOLOGIC: Warm, dry, no generalized rash. NEUROLOGIC: Alert, awake, oriented x3, some weakness, but able to move all four extremities. Medications: Inpatient Meds: Medications reviewed. Labs: Lab Laboratory Tests Test 06/18/21 11:47 06/18/21 16:31 06/18/21 21:01 06/19/21 06:25 Glucose (Fingerstick) 87 mg/dL (70-99) 109 mg/dL (70-99) 163 mg/dL (70-99) Sodium Level 141 mmol/L (136-145) Potassium Level 3.9 mmol/L (3.5-5.1) Chloride Level 104 mmol/L (98-107) Carbon Dioxide Level 31 mmol/L (21-32) Anion Gap 6 (6-14) Blood Urea Nitrogen 28 mg/dL (8-26) Creatinine 4.2 mg/dL (0.7-1.3) Estimated GFR (Cockcroft-Gault) 14.6 Glucose Level 93 mg/dL (70-99) Calcium Level 7.5 mg/dL (8.5-10.1) Random Vancomycin Level 12.8 mcg/mL Test 06/19/21 08:08 Glucose (Fingerstick) 68 mg/dL (70-99) Objective: Assessment: 1. Chronic nonhealing right heel wound, status post incision and drainage on June 16. 2. Status post right great toe nail debridement June 16 3. Status post left hip repair recently for fracture. 4. Diabetes mellitus. 5. End-stage renal disease, on dialysis. Right upper extremity edema 6. Overall generalized poor health. Plan: Plan of Care Continue vancomycin and Zosyn renal dosing. Awaiting right BKA later today per at bedside Awaiting left heel wound debridement Offload Local wound care as directed Continue supportive care Discussed with at bedside Discussed with nursing staff NORA KOROMA MD Jun 19, 2021 09:01
[2021-06-19] MEDS: HYDROcodone/APAP 5/325MG 1 TAB TABLET PO PRN ×2 (09:13→15:48)
[2021-06-19] MEDS ORDERED: DEXTROSE 50% 25 GM / 50ML DISP.SYRIN. IV ONE ×3 (09:37→11:30)
--- NOTE | 2021-06-19 09:44 | PDOC ---
DATE OF SERVICE DATE: 06/19/21 TIME: 09:35 SUBJECTIVE ROS s/p Irrigation debridement of right heel ulcer skin subcutaneous tissue and removal of right great toenail on 06/18 Scheduled for right BKA and debridement of left heel wound later today OBJECTIVE Vital Signs Vital Signs Date Time Temp Pulse Resp B/P (MAP) Pulse Ox O2 Delivery O2 Flow Rate FiO2 06/19/21 09:13 Nasal Cannula 06/19/21 07:06 100 3.0 06/19/21 03:00 98.5 60 16 162/59 (93) 98.5 I & 0 Intake and Output 06/19/21 07:00 Intake Total 760 ml Output Total 0 ml Balance 760 ml Intake Oral 760 ml Output Urine Total 0 ml PHYSICAL EXAM Physical Exam GENERAL: NAD HEENT: OM moist , On Chronic home O2 NECK: Supple. LUNGS: Decreased breath sounds at the bases, non labored HEART: S1, S2. ABDOMEN: Soft, nontender. EXTREMITIES: AVG Rt SKIN : No generalized rash, no enriquez DIAGNOSIS/ASSESSMENT Assessment & Plan ESRD - [facility] HD [facility] Scanlon . Dialysis Today, discussed treatment plan with [facility] - Rt arm AVF -- Swelling in Rt arm since recent fall - was scheduled for Fistulogram as OP RT arm US Diffuse atherosclerotic vascular disease. Areas of increased velocity within the right brachial artery. A significant stenosis not excluded. . Possible area of stenosis involving the junction of the right cephalic and subclavian venous stent. Possible significant stenosis at the arteriovenous anastomosis. Consider right upper extremity fistulogram for further characterization as clinically indicated. Fistulogram ordered for tuesday HyperKalemia- K normal Right heel wound, status post incision and drainage- s/p Irrigation debridement of right heel ulcer skin subcutaneous tissue and removal of right great toenail. Scheduled for Rt BKA Recent history Acute Lt Femoral neck displaced fracture s/p Lt Hip Repair COPD with home O2 dependency history of poorly controlled diabetes Hypertension BP stable Anemia- Hgb Low, Monitor, On FABIAN COMMENT/RELEVANT DATA Meds Current Medications Medications (Trade) Dose Ordered Sig/Celi Start Time Stop Time Status Last Admin Dose Admin Acetaminophen/ Hydrocodone Bitart (Lortab 5/325) 1 tab PRN Q4HRS PRN 06/17/21 14:45 06/19/21 09:13 1 TAB Albuterol/ Ipratropium (Duoneb) 3 ml RTQID 06/17/21 16:00 06/19/21 07:06 3 ML Ascorbic Acid (Vitamin C) 500 mg DAILY 06/18/21 09:00 06/18/21 09:08 500 MG Aspirin (Aspirin Chewable) 81 mg [id number] 06/18/21 08:00 06/18/21 09:08 81 MG Atorvastatin Calcium (Lipitor) 10 mg HS 06/17/21 21:00 06/18/21 21:26 10 MG Budesonide (Pulmicort) 0.5 mg PRN BID PRN 06/17/21 14:45 Calcium Acetate (Phoslo) 667 mg [id number] 06/17/21 17:00 06/18/21 17:25 667 MG Ceftriaxone Sodium (Rocephin) 1 gm Q24H 06/16/21 17:00 06/17/21 10:23 DC 06/16/21 21:32 1 GM Dextrose/Sodium Chloride 1,000 ml @ 75 mls/hr [id number] 06/16/21 21:30 06/19/21 05:55 75 MLS/HR Docusate Sodium (Colace) 100 mg PRN BID PRN 06/17/21 14:45 Epoetin Luís-epbx (RETACRIT for ESRD PTS) 20,000 unit 1X ONCE 06/18/21 11:00 06/18/21 11:01 DC 06/18/21 12:02 20,000 UNIT Fentanyl Citrate (Fentanyl 2ml Vial) 50 mcg PRN Q5MIN PRN 06/19/21 06:00 06/20/21 05:59 Hydromorphone HCl (Dilaudid) 0.5 mg PRN Q10MIN PRN 06/19/21 06:00 06/20/21 05:59 Info (PHARMACY MONITORING -- do not chart) 1 each PRN DAILY PRN 06/17/21 16:30 Insulin Glargine (Lantus Syringe) 10 unit QHS 06/17/21 21:00 06/18/21 21:39 10 UNIT Insulin Human Lispro (HumaLOG VIAL for OP,RR ONLY) 0-10 units PRN Q1HR PRN 06/16/21 14:45 06/16/21 21:00 DC 06/16/21 16:00 2 UNIT Lactobacillus Rhamnosus (Culturelle) 1 cap BID 06/17/21 21:00 06/18/21 21:26 1 CAP Levothyroxine Sodium (Synthroid) 300 mcg DAILYAC 06/18/21 07:30 06/18/21 07:51 300 MCG Lidocaine HCl (Lidocaine Pf 2% Vial) 5 ml STK-MED ONCE 06/16/21 14:21 06/16/21 14:21 DC Morphine Sulfate (Morphine Sulfate) 1 mg PRN Q10MIN PRN 06/19/21 06:00 06/20/21 05:59 Ondansetron HCl (Zofran) 4 mg STK-MED ONCE 06/16/21 15:10 06/16/21 15:10 DC Phenylephrine HCl (PHENYLEPHRINE in 0.9% NACL PF) 1 mg STK-MED ONCE 06/16/21 15:04 06/16/21 15:05 DC Piperacillin Sod/ Tazobactam Sod 2.25 gm/Sodium Chloride 50 ml @ 100 mls/hr Q8HRS 06/17/21 12:00 06/19/21 05:56 100 MLS/HR Prochlorperazine Edisylate (Compazine) 5 mg PACU PRN PRN 06/19/21 06:00 06/20/21 05:59 Propofol (Diprivan) 200 mg STK-MED ONCE 06/16/21 14:21 06/16/21 14:21 DC Ringer's Solution 1,000 ml @ 30 mls/hr Q24H 06/19/21 06:00 06/19/21 17:59 Sevoflurane (Ultane) 30 ml STK-MED ONCE 06/16/21 15:10 06/16/21 15:11 DC Sodium Chloride 1,000 ml @ 75 mls/hr [id number] 06/16/21 17:00 06/16/21 21:28 DC 06/16/21 21:13 75 MLS/HR Vancomycin HCl (Vanco Per Pharmacy) 1 each PRN DAILY PRN 06/17/21 10:30 06/17/21 15:49 1 EACH Vancomycin HCl (Vancomycin Random Level) 1 each 1X ONCE 06/19/21 06:00 06/19/21 06:01 DC Vancomycin HCl 1.75 gm/Sodium Chloride 500 ml @ 250 mls/hr 1X ONCE 06/17/21 12:00 06/17/21 13:59 DC 06/17/21 14:10 250 MLS/HR Vitamin B Complex/ Vitamin C (Madai-Sean) 1 tab DAILY 06/18/21 09:00 06/18/21 09:08 1 TAB Lab Laboratory Tests Test 06/18/21 11:47 06/18/21 16:31 06/18/21 21:01 06/19/21 06:25 Glucose (Fingerstick) 87 mg/dL (70-99) 109 mg/dL (70-99) 163 mg/dL (70-99) Sodium Level 141 mmol/L (136-145) Potassium Level 3.9 mmol/L (3.5-5.1) Chloride Level 104 mmol/L (98-107) Carbon Dioxide Level 31 mmol/L (21-32) Anion Gap 6 (6-14) Blood Urea Nitrogen 28 mg/dL (8-26) Creatinine 4.2 mg/dL (0.7-1.3) Estimated GFR (Cockcroft-Gault) 14.6 Glucose Level 93 mg/dL (70-99) Calcium Level 7.5 mg/dL (8.5-10.1) Random Vancomycin Level 12.8 mcg/mL Test 06/19/21 08:08 Glucose (Fingerstick) 68 mg/dL (70-99) Results All relevant outside records, renal labs, imaging studies, telemetry/EKG's were reviewed. Justicifation of Admission Dx: Justifications for Admission: Justification of Admission Dx: N/A REBECCA ANGLIN MD Jun 19, 2021 09:44
--- NOTE | 2021-06-19 10:01 | NUR ---
FSBS was 47. Received 1 amp dextrose. Rechecked FSBS is now 119. Cont. monitor.
--- NOTE | 2021-06-19 10:45 | NUR ---
SW following. Discussed with RN, pt having a BKA today. HCR ANDRESK notified. MEÑO will follow up on Tuesday. MEÑO will continue to follow.
[2021-06-19 11:00] VITALS: BP 127/52
--- NOTE | 2021-06-19 11:40 | NUR ---
FSBS 68. Gave 1/2 amp dextros and D5NS started at 40cc/hr. Cont. monitor.
[2021-06-19] MEDS ORDERED: ONDANSETRON PF 4 MG/2 ML VIAL. ONE (11:59)
[2021-06-19] MEDS ORDERED: DEXAMETHASONE SOD PHOS 4 MG/ML VIAL ONE (11:59)
[2021-06-19] MEDS ORDERED: PROPOFOL 10 MG/ML (20ML) VIAL. IV ONE (11:59)
[2021-06-19] MEDS ORDERED: fentaNYL PF VIAL 100 MCG/2 ML VIAL ONE (11:59)
[2021-06-19] MEDS ORDERED: LIDOCAINE 2% PF 5 ML VIAL. ONE (11:59)
--- NOTE | 2021-06-19 12:15 | NUR ---
Pt to surgery by bed accompanied by staff and .
--- NOTE | 2021-06-19 12:24 | PDOC ---
[facility] [facility] PROGRESS NOTE Date of Service DOS: DATE: 06/19/21 TIME: 12:21 Chief Complaint Chief Complaint Right heel nonhealing wound status post I&D 06/16/[address] Joiner, pending BKA Left heel and toe dry gangrene concerning for osteomyelitis pending debridement Acute distal left posterior tibial artery occlusion Recent left hip surgery Anemia of CKD Mild hyperkalemia ESRD on HD Elevated ALP suggestive of bone disease Debilitation Severe protein malnutrition Bedbound status Right upper extremity fistula with possible narrowing versus obstruction Hypoglycemia Continue hypoglycemia protocol IR consulted for possible fistulogram Vascular surgery consult for left heel wound and posterior tibial artery occlusion on the left side. ID consult for antibiotic management Orthopedic consult for right foot wound management Wound care consult Pending left foot x-ray to rule out osteomyelitis Consider vascular surgery consult if intervention can improve healing of foot ulcers Nephrology consult for HD Heparin for DVT prophylaxis Protonix GI prophylaxis ADA diet CODE STATUS full Discussed with RN and SW Disposition inpatient management as above DPOA: History of Present Illness History of Present Illness 61-year-old male who was sent over from healthcare resort mainly due to ulc eration of his right heel that got infected and required a formal I&D by orthopedic surgery. Patient underwent surgery yesterday and tolerated procedure well. Unfortunately, patient is a poor historian and is unsure of how his wounds progressively worsened. Other than that, patient can only state that he is currently just not have any pain nor does he have any fevers, chest pain, abdominal pain, diarrhea or dizziness. 06/18/2021 No acute events overnight. Patient seen and examined bedside. T-max of 100.9 overnight continues to be on vancomycin and Zosyn. Patient also has right upper extremity swelling. at bedside states that patient has not really been moving his right arm since his fistula. Patient has all the equipment to help mature the fistula but unsure if patient has been compliant with exercises. Patient's chart, labs, images were reviewed and discussed with RN 06/19/2021 No acute events overnight. Patient seen and examined bedside. On empiric IV antibiotics. Plan for right BKA today. Possible left heel debridement. Vascular surgery following along with orthopedic surgery. Appreciate the recommendations and management of all surgical interventions. Discussed with at bedside as well and also the possibility of needing a fistulogram after duplex of the fistula. expressed understanding and agrees with our plan and willing to the procedures. Patient's chart, labs, images were reviewed and discussed with RN Vitals/I&O Vitals/I&O: Vital Signs Date Time Temp Pulse Resp B/P (MAP) Pulse Ox O2 Delivery O2 Flow Rate FiO2 06/19/21 11:57 Nasal Cannula 06/19/21 07:35 3.0 06/19/21 07:06 100 06/19/21 07:00 98.3 57 17 146/61 (89) 98.3 I & O 06/18/21 06/18/21 06/19/21 15:00 23:00 07:00 Intake Total 420 ml 240 ml 100 ml Output Total 0 ml Balance 420 ml 240 ml 100 ml Physical Exam Physical Exam: GENERAL: Thin male, in no acute distress. HEENT: Normocephalic, atraumatic. Anicteric. No thrush. NECK: Supple. LUNGS: Clear.some scattered rhonchi. HEART: S1, S2. ABDOMEN: Soft, nontender, nondistended. Bowel sounds present. EXTREMITIES: Left hip incision site looks intact. Steri-Strips in place. No drainage. Bilateral lower extremity and right upper extremity edema present. Right lower extremity dressing taken down, wound changes noted, dry first great toe Some dry blood at the toe, not taken down. DERMATOLOGIC: Warm, dry, no generalized rash. NEUROLOGIC: Alert, awake, oriented x3, some weakness, but able to move all four extremities. General: Alert, Oriented X3, Cooperative Heart: Regular rate Lungs: Clear Extremities: Other (Left hip incision intact and well-healed. Right foot dressings with strikethrough but no active bleeding or soakage of blood. Left toe and heel wound concerning for necrosis and dry gangrene.) Labs Labs: Laboratory Tests Test 06/18/21 16:31 06/18/21 21:01 06/19/21 06:25 06/19/21 08:08 Glucose (Fingerstick) 109 mg/dL (70-99) 163 mg/dL (70-99) 68 mg/dL (70-99) Sodium Level 141 mmol/L (136-145) Potassium Level 3.9 mmol/L (3.5-5.1) Chloride Level 104 mmol/L (98-107) Carbon Dioxide Level 31 mmol/L (21-32) Anion Gap 6 (6-14) Blood Urea Nitrogen 28 mg/dL (8-26) Creatinine 4.2 mg/dL (0.7-1.3) Estimated GFR (Cockcroft-Gault) 14.6 Glucose Level 93 mg/dL (70-99) Calcium Level 7.5 mg/dL (8.5-10.1) Random Vancomycin Level 12.8 mcg/mL Test 06/19/21 09:34 06/19/21 09:59 Glucose (Fingerstick) 47 mg/dL (70-99) 119 mg/dL (70-99) Comment Review of Relevant I have reviewed the following items yesenia (where applicable) has been applied. Medications: Current Medications Medications (Trade) Dose Ordered Sig/Celi Route PRN Reason Start Time Stop Time Status Last Admin Dose Admin Morphine Sulfate (Morphine Sulfate) 1 mg PRN Q10MIN PRN IVP SEVERE PAIN 7-10 06/19/21 06:00 06/20/21 05:59 06/19/21 11:57 Justifications for Admission Other Justification ESRD, fluid overload PAWEL GARCÍA MD Jun 19, 2021 12:24
[2021-06-19] MEDS ORDERED: ALBUMIN HUMAN 5% 500 ML IV ONE (13:39)
[2021-06-19] MEDS: VANCOMYCIN PER PHARMACY MC PRN (13:47)
--- NOTE | 2021-06-19 13:53 | NUR ---
Pharmacy Vancomycin Dosing Note S: Consulted to monitor and dose vancomycin started 06/17/21. O: SEBASTIAN ANGULO is a 61 year old M with diabetic foot ulcer . Other Antibiotics: ZOSYN LABS: Last BUN: 28 Last Creatinine: 4.2 Creatinine Clearance: MWF HD Last WBC: 10.5 Last Procalcitonin: Tmax (past 24 hours): 100.9 Microbiology: I/O: 120/100 Drug Levels: Last Random level: 12.8 on 06/19/21 at 0625 Last dose given 06/17/21 at 1410 Vancomycin Dosing: Dosing Weight: Actual Target Trough: 10-20 A: Based on: LEVEL P: 1. Give Vancomycin 500 mg IV After HD (MWF) 2. Follow up Random level in a week if needed 3. Pharmacy will continue to monitor, follow and adjust therapy as needed. Aleida Allen RPH, 06/19/21 [id number]
[2021-06-19] MEDS ORDERED: ePHEDrine PF IN SALINE 50 MG/10 ML SYRINGE. IV ONE (14:25)
[2021-06-19] MEDS ORDERED: SEVOFLURANE 61 TO 120 MINUTES. IH ONE (14:25)
[2021-06-19 15:00] VITALS: BP 124/59
[2021-06-19 15:12] LABS: HEMATOCRIT 24.4 % (39.0-53.0); HEMOGLOBIN 7.8 g/dL (13.0-17.5)
--- NOTE | 2021-06-19 16:37 | NUR ---
Pt in dialysis, had to reinforce dressing in left foot due to bleeding. Cont. monitor.
[2021-06-19] MEDS ORDERED: DIALYSIS PATIENT. MC PRN (16:45)
[2021-06-19] MEDS ORDERED: IV NORMAL SALINE 1000ML BAG 1,000 ML IV PRN ×2 (16:45)
[2021-06-19 19:00] VITALS: BP 122/52
[2021-06-19] MEDS: MORPHINE SULFATE 2 MG/ML INJ. IV PRN ×2 (19:52→22:23)
[2021-06-19] MEDS: VANCOMYCIN 500 MG in IV NORMAL SALINE 100ML 100 ML IV SCH (20:23)
--- NOTE | 2021-06-19 20:43 | PDOC4 ---
Operative Note Operative Note Date of surgery: 06/19/2021 Preoperative diagnosis: Right heel and great toe ulcers with nonviable right foot per vascular surgery evaluation, left heel and appearance of superficial great toe ulcer Postoperative diagnosis: Same Operative procedure: Right below knee amputation, irrigation debridement of left tip of great toe, removal left great toenail and debridement of skin subcutaneous tissue left heel Surgeon: Rhys Assist: Rico Rodriguez marketing assistant retail division Anesthesia: General Estimated blood loss: 500 cc Transfused 1 unit packed red blood cells intraoperatively/postoperatively Complications: None Operative indications: Please see my orthopedic consultation and ongoing notes as well as vascular surgery notes for detailed operative indications and note that he had a large very deep right heel ulcer as well as a tip of the great toe ulcer which were previously debrided however based on his vascular and other medical status as well as vascular surgery evaluation was really judged to have a nonviable foot and recommended right below-knee amputation. I had discussed with the family the risks benefits postoperative course of the procedure and the rationale for the site of amputation below the knee to obtain tissue coverage as opposed to lower on the leg. We also covered the possibility of nonhealing persistent infection phantom pain blood loss medical other anesthetic complications among others for the below-knee amputation procedure as well as th e heel debridement procedure and with heel debridement the specific possibility of additional procedures if he fails to heal or obtain tissue coverage of the area. All his and his family's questions were answered and they agree to proceed with surgical evaluation and treatment Operative text: Patient was identified procedure verified patient placed in the supine position on the operating table. After adequate amounts of general anesthesia were administered bilateral lower extremities were prepped and draped in standard sterile fashion with thigh tourniquets. After timeout was performed patient procedure identified and verified the right lower extremity tourniquet was inflated to 300 mmHg and an anterior incision was made 4 fingerbreadths distal to the tibial tubercle with a bony cut made at the same level anteriorly beveled. Muscle tissue was divided anteriorly in the same plane with electrocautery and neurovascular bundles were clamped and doubly tied with silk suture. Tourniquet was then let down as there appeared to be somewhat of a venous tourniquet present. Fibula was divided with the saw proximally and completion of the posterior flap was carried out sharply with a scalpel bleeding points controlled by electrocautery and the nerve tissue in particular were allowed to retract to minimize symptomatic neuroma formation. Thorough irrigation carried out normal saline solution fascia was reapproximated with buried Vicryl suture subcutaneous closure with buried 2-0 Vicryl suture skin closure with eron. Xeroform gauze followed by sterile dressings and soft roll were placed on the extremity and it was temporarily further covered with a stockinette. The left great toenail was removed and the distal tip of the left great toe was debrided back to stable viable tissue and noted to involve skin and very superficial subcutaneous tissue. The heel ulcer on the left was much more involved and somewhat oval in nature to the width of the heel and involving about 4 cm proximal distal dimension at its greatest aspect. Necrosis reach well into the subcutaneous layer but no bone was exposed. On the edges of the incision he seemed to have good vascular supply and bleeding points were controlled by electrocautery there irrigation carried out normal saline solution and all of the areas and areas were dressed with Xeroform gauze followed by sterile soft dressings on the left foot. Additional padding was placed on the right below-knee amputation stump and a plaster cast was placed with the leg out in extension molded around the patella and condyles proximally to maintain rotational control. Patient was returned to recovery room in stable condition having tolerated procedure well. Rico johansen assist assisted in patient positioning prepping draping retraction closure dressing and cast placement BRANDO ARREOLA MD Jun 19, 2021 20:43
[2021-06-19] MEDS: ATORVASTATIN CALCIUM 10 MG TABLET. PO SCH (22:08)
[2021-06-19] MEDS: INSULIN GLARGINE SYRINGE. SQ SCH (22:11)
[2021-06-19 23:00] VITALS: BP 146/61
[2021-06-20] MEDS: HYDROcodone/APAP 5/325MG 1 TAB TABLET PO PRN ×2 (02:06→17:40)
[2021-06-20 03:00] VITALS: BP 141/60
[2021-06-20] MEDS: MORPHINE SULFATE 2 MG/ML INJ. IV PRN ×4 (05:04→17:41)
[2021-06-20] MEDS: IV DEXTROSE 5% - 0.9 % NACL 1,000 ML IV SCH ×2 (05:30→17:41)
[2021-06-20] MEDS: PIPERACILLIN/TAZOBACTAM 2.25 GM in IV NORMAL SALINE 50ML 50 ML IV SCH ×3 (05:34→17:41)
[2021-06-20 07:00] VITALS: BP 138/62
[2021-06-20] MEDS: IPRATRPIUM/ALBUTEROL 0.5/2.5MG 3 ML NEBU. NEB SCH ×4 (07:49→21:13)
[2021-06-20] MEDS: FOLIC/VIT B COMP W-C (RENAL) TABLET. PO SCH (08:38)
[2021-06-20] MEDS: ASCORBIC ACID 500 MG TABLET PO SCH (08:38)
[2021-06-20] MEDS: LACTOBACILLUS RHAMNOSUS GG 1 CAPSULE. PO SCH ×2 (08:38→21:00)
[2021-06-20] MEDS: CALCIUM ACETATE 667 MG CAPSULE PO SCH ×3 (08:38→17:39)
[2021-06-20] MEDS: ASPIRIN CHEWABLE 81 MG TABLET. PO SCH (08:38)
[2021-06-20] MEDS: LEVOTHYROXINE 100 MCG TABLET PO SCH (08:38)
[2021-06-20] MEDS: VANCOMYCIN PER PHARMACY MC PRN ×2 (10:51→11:06)
--- NOTE | 2021-06-20 11:05 | PDOC ---
[facility] PROGRESS NOTE Date of Service DOS: DATE: 06/20/21 TIME: 11:03 Chief Complaint Chief Complaint Right heel nonhealing wound status post I&D 06/16/[address] Joiner, pending BKA Left heel and toe dry gangrene concerning for osteomyelitis pending debridement Acute distal left posterior tibial artery occlusion Recent left hip surgery Anemia of CKD Mild hyperkalemia ESRD on HD Elevated ALP suggestive of bone disease Debilitation Severe protein malnutrition Bedbound status Right upper extremity fistula with possible narrowing versus obstruction Hypoglycemia Continue hypoglycemia protocol IR consulted for possible fistulogram Vascular surgery consult for left heel wound and posterior tibial artery occlusion on the left side. ID consult for antibiotic management Orthopedic consult for right foot wound management Wound care consult Pending left foot x-ray to rule out osteomyelitis Consider vascular surgery consult if intervention can improve healing of foot ulcers Nephrology consult for HD Heparin for DVT prophylaxis Protonix GI prophylaxis ADA diet CODE STATUS full Discussed with RN and SW Disposition inpatient management as above DPOA: History of Present Illness History of Present Illness 61-year-old male who was [place] [facility] [place] mainly due to ulc eration of his right heel that got infected and required a formal I&D by orthopedic surgery. Patient underwent surgery yesterday and tolerated procedure well. Unfortunately, patient is a poor historian and is unsure of how his wounds progressively worsened. Other than that, patient can only state that he is currently just not have any pain nor does he have any fevers, chest pain, abdominal pain, diarrhea or dizziness. 06/18/2021 No acute events overnight. Patient seen and examined bedside. T-max of 100.9 overnight continues to be on vancomycin and Zosyn. Patient also has right upper extremity swelling. at bedside states that patient has not really been moving his right arm since his fistula. Patient has all the equipment to help mature the fistula but unsure if patient has been compliant with exercises. Patient's chart, labs, images were reviewed and discussed with RN 06/19/2021 No acute events overnight. Patient seen and examined bedside. On empiric IV antibiotics. Plan for right BKA today. Possible left heel debridement. Vascular surgery following along with orthopedic surgery. Appreciate the recommendations and management of all surgical interventions. Discussed with at bedside as well and also the possibility of needing a fistulogram after duplex of the fistula. expressed understanding and agrees with our plan and willing to the procedures. Patient's chart, labs, images were reviewed and discussed with RN 06/20/2021 No acute events overnight. Status post BKA. Patient seen and examined bedside. Pain is well controlled. Continued IV antibiotics and IV pain control. We will transition to p.o. pain control once tolerating diet. Started on insulin sliding scale and DC long-acting insulin due to hypoglycemia. Patient's chart, labs, images were reviewed and discussed with RN Vitals/I&O Vitals/I&O: Vital Signs Date Time Temp Pulse Resp B/P (MAP) Pulse Ox O2 Delivery O2 Flow Rate FiO2 06/20/21 08:41 Nasal Cannula 3.0 06/20/21 07:51 98 06/20/21 07:00 97.6 64 18 138/62 (87) 97.6 I & O 06/19/21 06/19/21 06/20/21 15:00 23:00 07:00 Intake Total 950 ml 240 ml 180 ml Output Total 550 ml Balance 400 ml 240 ml 180 ml Physical Exam Physical Exam: GENERAL: Thin male, in no acute distress. HEENT: Normocephalic, atraumatic. Anicteric. No thrush. NECK: Supple. LUNGS: Clear.some scattered rhonchi. HEART: S1, S2. ABDOMEN: Soft, nontender, nondistended. Bowel sounds present. EXTREMITIES: Left hip incision site looks intact. Steri-Strips in place. No drainage. Bilateral lower extremity and right upper extremity edema present. Right lower extremity dressing taken down, wound changes noted, dry first great toe Some dry blood at the toe, not taken down. DERMATOLOGIC: Warm, dry, no generalized rash. NEUROLOGIC: Alert, awake, oriented x3, some weakness, but able to move all four extremities. General: Alert, Oriented X3, Cooperative Heart: Regular rate Lungs: Clear Extremities: Other (Status post right BKA. Left lower extremity in bandages with no active bleeding.) Labs Labs: Laboratory Tests Test 06/19/21 11:27 06/19/21 15:05 Glucose (Fingerstick) 68 mg/dL (70-99) Hemoglobin 7.8 g/dL (13.0-17.5) Hematocrit 24.4 % (39.0-53.0) Comment Review of Relevant I have reviewed the following items yesenia (where applicable) has been applied. Medications: Current Medications Medications (Trade) Dose Ordered Sig/Celi Route PRN Reason Start Time Stop Time Status Last Admin Dose Admin Vancomycin HCl 500 mg/Sodium Chloride 100 ml @ 100 mls/hr QMWF IV 06/19/21 16:00 06/19/21 20:23 Justifications for Admission Other Justification ESRD, fluid overload PAWEL GARCÍA MD Jun 20, 2021 11:05
[2021-06-20 11:29] VITALS: BP 144/63
--- NOTE | 2021-06-20 11:29 | PDOC ---
Infectious Disease Note Subjective: Subjective Patient underwent right BKA and debridement of left heel wound yesterday says postop pain is under control no other complaints at bedside Vital Signs: Vital Signs Vital Signs Date Time Temp Pulse Resp B/P (MAP) Pulse Ox O2 Delivery O2 Flow Rate FiO2 06/20/21 08:41 Nasal Cannula 3.0 06/20/21 07:51 98 06/20/21 07:00 97.6 64 18 138/62 (87) 97.6 Physical Exam: PHYSICAL EXAM GENERAL: Thin male, in no acute distress. HEENT: Normocephalic, atraumatic. Anicteric. No thrush. NECK: Supple. LUNGS: Clear.some scattered rhonchi. HEART: S1, S2. ABDOMEN: Soft, nontender, nondistended. Bowel sounds present. EXTREMITIES: Left hip incision site looks intact. Steri-Strips in place. No drainage. RT BKA dressing intact, dry, LLE dressing with some blood stained guaze at the toe, not taken down DERMATOLOGIC: Warm, dry, no generalized rash. NEUROLOGIC: Alert, awake, oriented x3, some weakness, but able to move all four extremities. Medications: Inpatient Meds: Medications reviewed. Labs: Lab Laboratory Tests Test 06/19/21 15:05 Hemoglobin 7.8 g/dL (13.0-17.5) Hematocrit 24.4 % (39.0-53.0) Objective: Assessment: 1. Chronic nonhealing right heel wound, status post incision and drainage on June 16. 2. Status post right great toe nail debridement June 16 3. Status post left hip repair recently for fracture. 4. Diabetes mellitus. 5. End-stage renal disease, on dialysis. Right upper extremity edema 6. Overall generalized poor health. 06/20 S/P Right below knee amputation, irrigation debridement of left tip of great toe, removal left great toenail and debridement of skin subcutaneous tissue left heel Plan: Plan of Care Continue vancomycin and Zosyn renal dosing. Offload Local wound care as directed Continue supportive care D/W at bedside NORA KOROMA MD Jun 20, 2021 11:29
[2021-06-20] MEDS: INSULIN LISPRO 300 UNITS/3 ML VIAL. SQ SCH ×2 (12:33→17:00)
[2021-06-20 15:07] VITALS: BP 137/58
--- NOTE | 2021-06-20 18:55 | NUR ---
Pt BS 91 - RN encouraged pt to try something to bring blood sugar back up as had been trending downward all day with D5NS infusing. Pt given a cola. BS rechecked per his monitor 45 min later - BS 115. RN informed DIRECTOR OF DANCE needed to monitor blood sugar as pt has been trending downward. Will continue to monitor Addendum: 06/20/21 at 2225 by JACQUIE HEADLEY RN RN Blood sugar checked via pt monitor - 162. Will continue to monitor closely
[2021-06-20 19:00] VITALS: BP 138/51
[2021-06-20] MEDS: ATORVASTATIN CALCIUM 10 MG TABLET. PO SCH (21:00)
[2021-06-21 03:00] VITALS: BP 147/62
[2021-06-21] MEDS: PIPERACILLIN/TAZOBACTAM 2.25 GM in IV NORMAL SALINE 50ML 50 ML IV SCH ×3 (05:40→21:08)
[2021-06-21] MEDS: HYDROcodone/APAP 5/325MG 1 TAB TABLET PO PRN ×2 (05:40→15:41)
[2021-06-21 07:00] VITALS: BP 158/62
[2021-06-21] MEDS: IV DEXTROSE 5% - 0.9 % NACL 1,000 ML IV SCH ×2 (07:55→21:08)
[2021-06-21] MEDS: ASPIRIN CHEWABLE 81 MG TABLET. PO SCH (07:58)
[2021-06-21] MEDS: LEVOTHYROXINE 100 MCG TABLET PO SCH (07:58)
[2021-06-21] MEDS: LACTOBACILLUS RHAMNOSUS GG 1 CAPSULE. PO SCH ×2 (07:59→21:08)
[2021-06-21] MEDS: FOLIC/VIT B COMP W-C (RENAL) TABLET. PO SCH (07:59)
[2021-06-21] MEDS: CALCIUM ACETATE 667 MG CAPSULE PO SCH ×3 (07:59→17:29)
[2021-06-21] MEDS: ASCORBIC ACID 500 MG TABLET PO SCH (07:59)
[2021-06-21] MEDS: INSULIN LISPRO 300 UNITS/3 ML VIAL. SQ SCH ×3 (08:00→17:33)
[2021-06-21] MEDS: IPRATRPIUM/ALBUTEROL 0.5/2.5MG 3 ML NEBU. NEB SCH ×4 (08:11→19:36)
--- NOTE | 2021-06-21 10:10 | PDOC ---
Infectious Disease Note Subjective: Subjective Pt says doing ok postop pain is under control Vital Signs: Vital Signs Vital Signs Date Time Temp Pulse Resp B/P (MAP) Pulse Ox O2 Delivery O2 Flow Rate FiO2 06/21/21 08:15 100 Nasal Cannula 3.0 06/21/21 07:00 97.7 66 18 158/62 (94) 97.7 Physical Exam: PHYSICAL EXAM GENERAL: Thin male, in no acute distress. HEENT: Normocephalic, atraumatic. Anicteric. No thrush. NECK: Supple. LUNGS: Clear.some scattered rhonchi. HEART: S1, S2. ABDOMEN: Soft, nontender, nondistended. Bowel sounds present. EXTREMITIES: Left hip incision site looks intact. Steri-Strips in place. No drainage. RT BKA dressing intact, dry, LLE dressing with some blood stained guaze at the toe, not taken down LUE swelling chronic but improving slowly DERMATOLOGIC: Warm, dry, no generalized rash. NEUROLOGIC: Alert, awake, oriented x3, some weakness, but able to move all four extremities. Medications: Inpatient Meds: Medications reviewed. Objective: Assessment: 1. Chronic nonhealing right heel wound, status post incision and drainage on June 16. 2. Status post right great toe nail debridement June 16 3. Status post left hip repair recently for fracture. 4. Diabetes mellitus. 5. End-stage renal disease, on dialysis. Right upper extremity edema 6. Overall generalized poor health. 06/20 S/P Right below knee amputation, irrigation debridement of left tip of great toe, removal left great toenail and debridement of skin subcutaneous tissue left heel Plan: Plan of Care Continue vancomycin and Zosyn renal dosing. Offload f/u labs in am Local wound care as directed Continue supportive care [facility] NORA EPSTEIN MD Jun 21, 2021 10:10
[2021-06-21] MEDS ORDERED: MAGNESIUM SULFATE 2GM 50 ML IV PRN (10:30)
[2021-06-21 11:00] VITALS: BP 154/65
--- NOTE | 2021-06-21 11:31 | PDOC ---
[facility] PROGRESS NOTE Date of Service DOS: DATE: 06/21/21 TIME: 11:30 Chief Complaint Chief Complaint Right heel nonhealing wound status post I&D 06/16/[address] Joiner, pending BKA Left heel and toe dry gangrene concerning for osteomyelitis pending debridement Acute distal left posterior tibial artery occlusion Recent left hip surgery Anemia of CKD Mild hyperkalemia ESRD on HD Elevated ALP suggestive of bone disease Debilitation Severe protein malnutrition Bedbound status Right upper extremity fistula with possible narrowing versus obstruction Hypoglycemia Continue hypoglycemia protocol IR consulted for possible fistulogram Vascular surgery consult for left heel wound and posterior tibial artery occlusion on the left side. ID consult for antibiotic management Orthopedic consult for right foot wound management Wound care consult Pending left foot x-ray to rule out osteomyelitis Consider vascular surgery consult if intervention can improve healing of foot ulcers Nephrology consult for HD Heparin for DVT prophylaxis Protonix GI prophylaxis ADA diet CODE STATUS full Discussed with RN and SW Disposition inpatient management as above DPOA: History of Present Illness History of Present Illness 61-year-old male who was [place] healthcare [place] mainly due to ulc eration of his right heel that got infected and required a formal I&D by orthopedic surgery. Patient underwent surgery yesterday and tolerated procedure well. Unfortunately, patient is a poor historian and is unsure of how his wounds progressively worsened. Other than that, patient can only state that he is currently just not have any pain nor does he have any fevers, chest pain, abdominal pain, diarrhea or dizziness. 06/18/2021 No acute events overnight. Patient seen and examined bedside. T-max of 100.9 overnight continues to be on vancomycin and Zosyn. Patient also has right upper extremity swelling. at bedside states that patient has not really been moving his right arm since his fistula. Patient has all the equipment to help mature the fistula but unsure if patient has been compliant with exercises. Patient's chart, labs, images were reviewed and discussed with RN 06/19/2021 No acute events overnight. Patient seen and examined bedside. On empiric IV antibiotics. Plan for right BKA today. Possible left heel debridement. Vascular surgery following along with orthopedic surgery. Appreciate the recommendations and management of all surgical interventions. Discussed with at bedside as well and also the possibility of needing a fistulogram after duplex of the fistula. expressed understanding and agrees with our plan and willing to the procedures. Patient's chart, labs, images were reviewed and discussed with RN 06/20/2021 No acute events overnight. Status post BKA. Patient seen and examined bedside. Pain is well controlled. Continued IV antibiotics and IV pain control. We will transition to p.o. pain control once tolerating diet. Started on insulin sliding scale and DC long-acting insulin due to hypoglycemia. Patient's chart, labs, images were reviewed and discussed with RN 06/21/2021 No acute events overnight. Patient seen and examined bedside. Resting comfortably at this time. Pain is well controlled. No concerns nursing. Patient's chart, labs, images were reviewed and discussed with RN Vitals/I&O Vitals/I&O: Vital Signs Date Time Temp Pulse Resp B/P (MAP) Pulse Ox O2 Delivery O2 Flow Rate FiO2 06/21/21 08:15 100 Nasal Cannula 3.0 06/21/21 07:00 97.7 66 18 158/62 (94) 97.7 I & O 06/20/21 06/20/21 06/21/21 15:00 23:00 07:00 Intake Total 240 ml 400 ml 120 ml Balance 240 ml 400 ml 120 ml Physical Exam Physical Exam: GENERAL: Thin male, in no acute distress. HEENT: Normocephalic, atraumatic. Anicteric. No thrush. NECK: Supple. LUNGS: Clear.some scattered rhonchi. HEART: S1, S2. ABDOMEN: Soft, nontender, nondistended. Bowel sounds present. EXTREMITIES: Left hip incision site looks intact. Steri-Strips in place. No drainage. RT BKA dressing intact, dry, LLE dressing with some blood stained guaze at the toe, not taken down DERMATOLOGIC: Warm, dry, no generalized rash. NEUROLOGIC: Alert, awake, oriented x3, some weakness, but able to move all four extremities. General: Alert, Oriented X3, Cooperative Heart: Regular rate Lungs: Clear Extremities: Other (Status post right BKA. Left lower extremity in bandages with no active bleeding.) Comment Review of Relevant I have reviewed the following items yesenia (where applicable) has been applied. Medications: Current Medications Medications (Trade) Dose Ordered Sig/Celi Route PRN Reason Start Time Stop Time Status Last Admin Dose Admin Insulin Human Lispro (HumaLOG) 0-5 UNITS TIDWMEALS SQ 06/20/21 12:00 06/20/21 12:33 Justifications for Admission Other Justification ESRD, fluid overload PAWEL GARCÍA MD Jun 21, 2021 11:31
[2021-06-21] MEDS: MORPHINE SULFATE 2 MG/ML INJ. IV PRN ×2 (14:14→19:14)
[2021-06-21 15:00] VITALS: BP 145/61
[2021-06-21] MEDS: VANCOMYCIN PER PHARMACY MC PRN (16:34)
[2021-06-21 19:00] VITALS: BP 145/59
[2021-06-21] MEDS: ATORVASTATIN CALCIUM 10 MG TABLET. PO SCH (21:08)
--- NOTE | 2021-06-21 22:00 | NUR ---
Pt. refusing photos of wounds currently. Pt also refusing to turn q2hrs. Pt. notified of risks. Will continue to encourage movement.
[2021-06-21 23:00] VITALS: BP 154/58
[2021-06-22] VITALS (7 sets, daily range): BP systolic 109–167; BP diastolic 25–73
[2021-06-22] MEDS: PIPERACILLIN/TAZOBACTAM 2.25 GM in IV NORMAL SALINE 50ML 50 ML IV SCH ×3 (05:31→21:40)
[2021-06-22 07:19] LABS: ALBUMIN 1.4 g/dL (3.4-5.0); CALCIUM 7.1 mg/dL (8.5-10.1); CREATININE 5.1 mg/dL (0.7-1.3); GFR 11.7; GFR 11.9; PHOSPHORUS 5.2 mg/dL (2.6-4.7); POTASSIUM 4.4 mmol/L (3.5-5.1); POTASSIUM 4.5 mmol/L (3.5-5.1)
[2021-06-22] MEDS: IPRATRPIUM/ALBUTEROL 0.5/2.5MG 3 ML NEBU. NEB SCH ×4 (07:19→19:46)
[2021-06-22 07:24] LABS: BASO # 0.1 x10^3/uL (0.0-0.2); BASO % 1 % (0-3); EOS # 0.3 x10^3/uL (0.0-0.7); EOS % 3 % (0-3); LYMPH # 1.3 x10^3/uL (1.0-4.8); LYMPH % 13 % (24-48); MEAN CORPUSCULAR HEMOGLOBIN 29 pg (25-35); MEAN CORPUSCULAR HGB CONC 32 g/dL (31-37); MEAN CORPUSCULAR VOLUME 92 fL (79-100); MONO # 0.5 x10^3/uL (0.0-1.1); MONO % 5 % (0-9); NEUT # 7.6 x10^3/uL (1.8-7.7); NEUT % 78 % (31-73); PLATELET COUNT 270 x10^3/uL (140-400); RED BLOOD COUNT 1.99 x10^6/uL (4.30-5.70); RED CELL DISTRIBUTION WIDTH 21.1 % (11.5-14.5); WHITE BLOOD COUNT 9.7 x10^3/uL (4.0-11.0)
[2021-06-22] MEDS: INSULIN LISPRO 300 UNITS/3 ML VIAL. SQ SCH ×3 (07:50→17:00)
[2021-06-22] MEDS ORDERED: HEPARIN for ARTERIAL LINE 0 ML ONE (07:55)
[2021-06-22] MEDS ORDERED: LIDOCAINE WITH 8.4% SOD BICARB 3 ML DISP.SYRIN. ONE (07:55)
[2021-06-22] MEDS ORDERED: IODIXANOL 320 MG/ML 100 ML VIAL. ONE (07:55)
[2021-06-22 07:56] LABS: HEMATOCRIT 18.4 % (39.0-53.0); HEMOGLOBIN 5.8 g/dL (13.0-17.5)
[2021-06-22] MEDS: CALCIUM ACETATE 667 MG CAPSULE PO SCH ×3 (08:00→17:00)
--- NOTE | 2021-06-22 08:10 | PDOC ---
Infectious Disease Note Subjective: Subjective Patient without complaints Vital Signs: Vital Signs Vital Signs Date Time Temp Pulse Resp B/P (MAP) Pulse Ox O2 Delivery O2 Flow Rate FiO2 06/22/21 07:22 98 Nasal Cannula 3.0 06/22/21 07:00 97.8 66 18 109/25 (53) 97.8 Physical Exam: PHYSICAL EXAM GENERAL: Thin male, in no acute distress. HEENT: Normocephalic, atraumatic. Anicteric. No thrush. NECK: Supple. LUNGS: Clear.some scattered rhonchi. HEART: S1, S2. ABDOMEN: Soft, nontender, nondistended. Bowel sounds present. EXTREMITIES: Left hip incision site looks intact. Steri-Strips in place. No drainage. RT BKA dressing intact, dry, LLE dressing with some blood stained guaze at the toe, not taken down RUE swelling chronic but improving slowly DERMATOLOGIC: Warm, dry, no generalized rash. NEUROLOGIC: Alert, awake, oriented x3, some weakness, but able to move all four extremities. Medications: Inpatient Meds: Medications reviewed. Labs: Lab Laboratory Tests Test 06/22/21 05:40 06/22/21 07:16 White Blood Count 9.7 x10^3/uL (4.0-11.0) Red Blood Count 1.99 x10^6/uL (4.30-5.70) Hemoglobin 5.8 g/dL (13.0-17.5) Hematocrit 18.4 % (39.0-53.0) Mean Corpuscular Volume 92 fL (79-100) Mean Corpuscular Hemoglobin 29 pg (25-35) Mean Corpuscular Hemoglobin Concent 32 g/dL (31-37) Red Cell Distribution Width 21.1 % (11.5-14.5) Platelet Count 270 x10^3/uL (140-400) Neutrophils (%) (Auto) 78 % (31-73) Lymphocytes (%) (Auto) 13 % (24-48) Monocytes (%) (Auto) 5 % (0-9) Eosinophils (%) (Auto) 3 % (0-3) Basophils (%) (Auto) 1 % (0-3) Neutrophils # (Auto) 7.6 x10^3/uL (1.8-7.7) Lymphocytes # (Auto) 1.3 x10^3/uL (1.0-4.8) Monocytes # (Auto) 0.5 x10^3/uL (0.0-1.1) Eosinophils # (Auto) 0.3 x10^3/uL (0.0-0.7) Basophils # (Auto) 0.1 x10^3/uL (0.0-0.2) Sodium Level 142 mmol/L (136-145) Potassium Level 4.4 mmol/L (3.5-5.1) Chloride Level 106 mmol/L (98-107) Carbon Dioxide Level 27 mmol/L (21-32) Anion Gap 9 (6-14) Blood Urea Nitrogen 30 mg/dL (8-26) Creatinine 5.1 mg/dL (0.7-1.3) Estimated GFR (Cockcroft-Gault) 11.7 Glucose Level 244 mg/dL (70-99) Calcium Level 7.1 mg/dL (8.5-10.1) Phosphorus Level 5.2 mg/dL (2.6-4.7) Magnesium Level 1.9 mg/dL (1.8-2.4) Albumin 1.4 g/dL (3.4-5.0) Glucose (Fingerstick) 268 mg/dL (70-99) Objective: Assessment: 1. Chronic nonhealing right heel wound, status post incision and drainage on June 16. 2. Status post right great toe nail debridement June 16 3. Status post left hip repair recently for fracture. 4. Diabetes mellitus. 5. End-stage renal disease, on dialysis. 6. Overall generalized poor health. 06/20 S/P Right below knee amputation, irrigation debridement of left tip of great toe, removal left great toenail and debridement of skin subcutaneous tissue left heel 7. Anemia 8. Generalized debility 9. Chronic right upper extremity swelling evaluated for patency for AV fistula Plan: Plan of Care Continue vancomycin and Zosyn renal dosing. Offload f/u labs in am Local wound care as directed Continue supportive care Elevate LUE Awaiting PRBC later today Awaiting fistulogram tomorrow d/w nursing staff NORA KOROMA MD Jun 22, 2021 08:10
--- NOTE | 2021-06-22 08:24 | PDOC ---
[facility] [facility] PROGRESS NOTE Date of Service DOS: DATE: 06/22/21 TIME: 08:19 Chief Complaint Chief Complaint Right heel nonhealing wound status post I&D 06/16/[address] Joiner, pending BKA Left heel and toe dry gangrene concerning for osteomyelitis pending debridement Acute distal left posterior tibial artery occlusion Recent left hip surgery Anemia of CKD Mild hyperkalemia ESRD on HD Elevated ALP suggestive of bone disease Debilitation Severe protein malnutrition Bedbound status Right upper extremity fistula with possible narrowing versus obstruction Hypoglycemia Continue hypoglycemia protocol IR consulted for possible fistulogram Vascular surgery consult for left heel wound and posterior tibial artery occlusion on the left side. ID consult for antibiotic management Orthopedic consult for right foot wound management Wound care consult Pending left foot x-ray to rule out osteomyelitis Consider vascular surgery consult if intervention can improve healing of foot ulcers Nephrology consult for HD Heparin for DVT prophylaxis Protonix GI prophylaxis ADA diet CODE STATUS full Discussed with RN and SW Disposition inpatient management as above DPOA: History of Present Illness History of Present Illness 61-year-old male who was sent over from healthcare resort mainly due to ulc eration of his right heel that got infected and required a formal I&D by orthopedic surgery. Patient underwent surgery yesterday and tolerated procedure well. Unfortunately, patient is a poor historian and is unsure of how his wounds progressively worsened. Other than that, patient can only state that he is currently just not have any pain nor does he have any fevers, chest pain, abdominal pain, diarrhea or dizziness. 06/18/2021 No acute events overnight. Patient seen and examined bedside. T-max of 100.9 overnight continues to be on vancomycin and Zosyn. Patient also has right upper extremity swelling. at bedside states that patient has not really been moving his right arm since his fistula. Patient has all the equipment to help mature the fistula but unsure if patient has been compliant with exercises. Patient's chart, labs, images were reviewed and discussed with RN 06/19/2021 No acute events overnight. Patient seen and examined bedside. On empiric IV antibiotics. Plan for right BKA today. Possible left heel debridement. Vascular surgery following along with orthopedic surgery. Appreciate the recommendations and management of all surgical interventions. Discussed with at bedside as well and also the possibility of needing a fistulogram after duplex of the fistula. expressed understanding and agrees with our plan and willing to the procedures. Patient's chart, labs, images were reviewed and discussed with RN 06/20/2021 No acute events overnight. Status post BKA. Patient seen and examined bedside. Pain is well controlled. Continued IV antibiotics and IV pain control. We will transition to p.o. pain control once tolerating diet. Started on insulin sliding scale and DC long-acting insulin due to hypoglycemia. Patient's chart, labs, images were reviewed and discussed with RN 06/21/2021 No acute events overnight. Patient seen and examined bedside. Resting comfortably at this time. Pain is well controlled. No concerns nursing. Patient's chart, labs, images were reviewed and discussed with RN 06/22/2021: Hemoglobin 5.8 today. Discussed with RN, will transfuse 1 unit PRBC yesterday as his regular scheduled HD day. S/P right BKA on 06/19/2021; worked with PT who is recommending SNU. Continue antibiotics, per ID. He is to have a fistulogram tomorrow, per vascular surgery. Discussed with RN. Vitals/I&O Vitals/I&O: Vital Signs Date Time Temp Pulse Resp B/P (MAP) Pulse Ox O2 Delivery O2 Flow Rate FiO2 06/22/21 07:22 98 Nasal Cannula 3.0 06/22/21 07:00 97.8 66 18 109/25 (53) 97.8 I & O 06/21/21 06/21/21 06/22/21 15:00 23:00 07:00 Intake Total 240 ml 1250 ml 170 ml Balance 240 ml 1250 ml 170 ml Physical Exam Physical Exam: GENERAL: Thin male, in no acute distress. HEENT: Normocephalic, atraumatic. Anicteric. No thrush. NECK: Supple. LUNGS: Clear.some scattered rhonchi. HEART: S1, S2. ABDOMEN: Soft, nontender, nondistended. Bowel sounds present. EXTREMITIES: Left hip incision site looks intact. Steri-Strips in place. No drainage. RT BKA dressing intact, dry, LLE dressing with some blood stained guaze at the toe, not taken down RUE swelling chronic but improving slowly DERMATOLOGIC: Warm, dry, no generalized rash. NEUROLOGIC: Alert, awake, oriented x3, some weakness, but able to move all four extremities. General: Alert, Oriented X3, Cooperative Heart: Regular rate Lungs: Clear Abdomen: Soft, No tenderness Extremities: Other (S/P right BKA) Skin: Other (Left lower extremity in bandages with bandages clean/dry/intact; no active bleeding.) Labs Labs: Laboratory Tests Test 06/22/21 05:40 06/22/21 07:16 White Blood Count 9.7 x10^3/uL (4.0-11.0) Red Blood Count 1.99 x10^6/uL (4.30-5.70) Hemoglobin 5.8 g/dL (13.0-17.5) Hematocrit 18.4 % (39.0-53.0) Mean Corpuscular Volume 92 fL (79-100) Mean Corpuscular Hemoglobin 29 pg (25-35) Mean Corpuscular Hemoglobin Concent 32 g/dL (31-37) Red Cell Distribution Width 21.1 % (11.5-14.5) Platelet Count 270 x10^3/uL (140-400) Neutrophils (%) (Auto) 78 % (31-73) Lymphocytes (%) (Auto) 13 % (24-48) Monocytes (%) (Auto) 5 % (0-9) Eosinophils (%) (Auto) 3 % (0-3) Basophils (%) (Auto) 1 % (0-3) Neutrophils # (Auto) 7.6 x10^3/uL (1.8-7.7) Lymphocytes # (Auto) 1.3 x10^3/uL (1.0-4.8) Monocytes # (Auto) 0.5 x10^3/uL (0.0-1.1) Eosinophils # (Auto) 0.3 x10^3/uL (0.0-0.7) Basophils # (Auto) 0.1 x10^3/uL (0.0-0.2) Sodium Level 142 mmol/L (136-145) Potassium Level 4.4 mmol/L (3.5-5.1) Chloride Level 106 mmol/L (98-107) Carbon Dioxide Level 27 mmol/L (21-32) Anion Gap 9 (6-14) Blood Urea Nitrogen 30 mg/dL (8-26) Creatinine 5.1 mg/dL (0.7-1.3) Estimated GFR (Cockcroft-Gault) 11.7 Glucose Level 244 mg/dL (70-99) Calcium Level 7.1 mg/dL (8.5-10.1) Phosphorus Level 5.2 mg/dL (2.6-4.7) Magnesium Level 1.9 mg/dL (1.8-2.4) Albumin 1.4 g/dL (3.4-5.0) Glucose (Fingerstick) 268 mg/dL (70-99) Comment Review of Relevant I have reviewed the following items yesenia (where applicable) has been applied. Justifications for Admission Other Justification ESRD, fluid overload JOSE TRAVIS MD Jun 22, 2021 08:23
[2021-06-22] MEDS ORDERED: ALBUMIN HUMAN 25% 200 ML IV PRN (08:45)
[2021-06-22] MEDS ORDERED: diphenhydrAMINE 50 MG/ML VIAL IV PRN ×2 (08:45)
[2021-06-22] MEDS ORDERED: IV NORMAL SALINE 1000ML BAG 1,000 ML IV PRN ×2 (08:45)
[2021-06-22] MEDS ORDERED: DIALYSIS PATIENT. MC PRN ×2 (08:45)
--- NOTE | 2021-06-22 09:48 | PDOC ---
DATE OF SERVICE DATE: 06/22/21 TIME: 09:47 SUBJECTIVE ROS Seen on Dialysis States not feeling very good, No specific Complaints. Denies N/V, No SOB Hgb < 6 , awaiting for PRBC OBJECTIVE Vital Signs Vital Signs Date Time Temp Pulse Resp B/P (MAP) Pulse Ox O2 Delivery O2 Flow Rate FiO2 06/22/21 07:22 98 Nasal Cannula 3.0 06/22/21 07:00 97.8 66 18 109/25 (53) 97.8 I & 0 Intake and Output 06/22/21 07:00 Intake Total 1660 ml Balance 1660 ml Intake Oral 560 ml IV Total 1100 ml PHYSICAL EXAM Physical Exam GENERAL: NAD HEENT: OM moist , On Chronic home O2 NECK: Supple. LUNGS: Decreased breath sounds at the bases, non labored HEART: S1, S2. ABDOMEN: Soft, nontender. EXTREMITIES: AVG Rt ; Rt BKA recent SKIN : No generalized rash, no enriquez DIAGNOSIS/ASSESSMENT Assessment & Plan ESRD - On HD MWF @ [facility] under Dr. Scanlon . Seen during dialysis, No concern s related to dialysis , Continue as ordered, Fede Gordillo Access - Rt arm AVF -- Swelling in Rt arm since recent fall - was scheduled for Fistulogram as OP RT arm US Diffuse atherosclerotic vascular disease. Areas of increased mirna ocity within the right brachial artery. A significant stenosis not excluded. . Possible area of stenosis involving the junction of the right cephalic and subclavian venous stent. Possible significant stenosis at the arteriovenous anastomosis. Consider right upper extremity fistulogram for further characterization as clinically indicated. Fistulogram ordered HyperKalemia- K normal Anemia Hgb 5.8, PRBC ordered by Primary . Recd Epogen on 06/18 Right heel wound, status post incision and drainage- s/p Irrigation debridement of right heel ulcer skin subcutaneous tissue and removal of right great toenail. S/P right below-knee amputation and left heel and great toe debridement on 06/19 Recent history Acute Lt Femoral neck displaced fracture s/p Lt Hip Repair COPD with home O2 dependency history of poorly controlled diabetes Hypertension BP stable Anemia- Hgb Low, Monitor, On FABIAN COMMENT/RELEVANT DATA Meds Current Medications Medications (Trade) Dose Ordered Sig/Celi Start Time Stop Time Status Last Admin Dose Admin Acetaminophen/ Hydrocodone Bitart (Lortab 5/325) 1 tab PRN Q4HRS PRN 06/17/21 14:45 06/21/21 15:41 1 TAB Albumin Human 200 ml @ 200 mls/hr 1X PRN PRN 06/22/21 08:45 06/22/21 14:44 Albuterol/ Ipratropium (Duoneb) 3 ml RTQID 06/17/21 16:00 06/22/21 07:19 3 ML Ascorbic Acid (Vitamin C) 500 mg DAILY 06/18/21 09:00 06/21/21 07:59 500 MG Aspirin (Aspirin Chewable) 81 mg [id number] 06/18/21 08:00 06/21/21 07:58 81 MG Atorvastatin Calcium (Lipitor) 10 mg HS 06/17/21 21:00 06/21/21 21:08 10 MG Budesonide (Pulmicort) 0.5 mg PRN BID PRN 06/17/21 14:45 06/21/21 11:47 0.5 MG Calcium Acetate (Phoslo) 667 mg TIDWMEALS 06/17/21 17:00 06/21/21 17:29 667 MG Ceftriaxone Sodium (Rocephin) 1 gm Q24H 06/16/21 17:00 06/17/21 10:23 DC 06/16/21 21:32 1 GM Dexamethasone Sodium Phosphate (Decadron) 4 mg STK-MED ONCE 06/19/21 11:59 06/19/21 12:00 DC Dextrose (Dextrose 50%-Water Syringe) 25 gm STK-MED ONCE 06/19/21 11:30 06/19/21 11:31 DC Dextrose/Sodium Chloride 1,000 ml @ 75 mls/hr [id number] 06/16/21 21:30 06/21/21 21:08 75 MLS/HR Diphenhydramine HCl (Benadryl) 25 mg 1X PRN PRN 06/22/21 08:45 06/23/21 08:44 Docusate Sodium (Colace) 100 mg PRN BID PRN 06/17/21 14:45 Ephedrine Sulfate (ePHEDrine PF IN SALINE SYRINGE) 50 mg STK-MED ONCE 06/19/21 14:25 06/19/21 14:25 DC Epoetin Luís-epbx (RETACRIT for ESRD PTS) 20,000 unit 1X ONCE 06/18/21 11:00 06/18/21 11:01 DC 06/18/21 12:02 20,000 UNIT Fentanyl Citrate (Fentanyl 2ml Vial) 50 mcg PRN Q5MIN PRN 06/19/21 12:30 06/19/21 20:00 DC Heparin Sodium/ Sodium Chloride 0 ml @ As Directed STK-MED ONCE 06/22/21 07:55 06/22/21 07:55 DC Hydromorphone HCl (Dilaudid) 0.5 mg PRN Q10MIN PRN 06/19/21 12:30 06/19/21 20:00 DC Info (PHARMACY MONITORING -- do not chart) 1 each PRN DAILY PRN 06/22/21 08:45 Insulin Glargine (Lantus Syringe) 10 unit QHS 06/17/21 21:00 06/20/21 08:59 DC 06/19/21 22:11 10 UNIT Insulin Human Lispro (HumaLOG VIAL for OP,RR ONLY) 0-10 units PRN Q1HR PRN 06/16/21 14:45 06/16/21 21:00 DC 06/16/21 16:00 2 UNIT Insulin Human Lispro (HumaLOG) 0-5 UNITS TIDWMEALS 06/20/21 12:00 06/22/21 07:50 2 UNITS Iodixanol (Visipaque 320) 100 ml STK-MED ONCE 06/22/21 07:55 06/22/21 07:55 DC Lactobacillus Rhamnosus (Culturelle) 1 cap BID 06/17/21 21:00 06/21/21 21:08 1 CAP Levothyroxine Sodium (Synthroid) 300 mcg DAILYAC 06/18/21 07:30 06/21/21 07:58 300 MCG Lidocaine HCl (Buffered Lidocaine 1%) 3 ml STK-MED ONCE 06/22/21 07:55 06/22/21 07:55 DC Lidocaine HCl (Lidocaine Pf 2% Vial) 5 ml STK-MED ONCE 06/19/21 11:59 06/19/21 12:00 DC Magnesium Sulfate 50 ml @ 25 mls/hr PRN DAILY PRN 06/21/21 10:30 Morphine Sulfate (Morphine Sulfate) 1 mg PRN Q10MIN PRN 06/19/21 12:30 06/19/21 20:00 DC Ondansetron HCl (Zofran) 4 mg STK-MED ONCE 06/19/21 11:59 06/19/21 12:00 DC Phenylephrine HCl (PHENYLEPHRINE in 0.9% NACL PF) 1 mg STK-MED ONCE 06/16/21 15:04 06/16/21 15:05 DC Piperacillin Sod/ Tazobactam Sod 2.25 gm/Sodium Chloride 50 ml @ 100 mls/hr Q8HRS 06/17/21 12:00 06/22/21 05:31 100 MLS/HR Prochlorperazine Edisylate (Compazine) 5 mg PACU PRN PRN 06/19/21 12:30 06/19/21 20:00 DC Propofol (Diprivan) 200 mg STK-MED ONCE 06/19/21 11:59 06/19/21 12:00 DC Ringer's Solution 1,000 ml @ 30 mls/hr Q24H 06/19/21 12:30 06/20/21 00:29 DC Sevoflurane (Ultane) 60 ml STK-MED ONCE 06/19/21 14:25 06/19/21 14:25 DC Sodium Chloride 1,000 ml @ 400 mls/hr Q2H30M PRN 06/22/21 08:45 06/22/21 20:44 Vancomycin HCl (Vanco Per Pharmacy) 1 each PRN DAILY PRN 06/17/21 10:30 06/21/21 16:34 1 EACH Vancomycin HCl (Vancomycin Random Level) 1 each 1X ONCE 06/19/21 06:00 06/19/21 06:01 DC 06/19/21 07:35 1 EACH Vancomycin HCl 1.75 gm/Sodium Chloride 500 ml @ 250 mls/hr 1X ONCE 06/17/21 12:00 06/17/21 13:59 DC 06/17/21 14:10 250 MLS/HR Vancomycin HCl 500 mg/Sodium Chloride 100 ml @ 100 mls/hr QMWF 06/19/21 16:00 06/19/21 20:23 100 MLS/HR Vitamin B Complex/ Vitamin C (Madai-Sean) 1 tab DAILY 06/18/21 09:00 06/21/21 07:59 1 TAB Lab Laboratory Tests Test 06/22/21 05:40 06/22/21 07:16 White Blood Count 9.7 x10^3/uL (4.0-11.0) Red Blood Count 1.99 x10^6/uL (4.30-5.70) Hemoglobin 5.8 g/dL (13.0-17.5) Hematocrit 18.4 % (39.0-53.0) Mean Corpuscular Volume 92 fL (79-100) Mean Corpuscular Hemoglobin 29 pg (25-35) Mean Corpuscular Hemoglobin Concent 32 g/dL (31-37) Red Cell Distribution Width 21.1 % (11.5-14.5) Platelet Count 270 x10^3/uL (140-400) Neutrophils (%) (Auto) 78 % (31-73) Lymphocytes (%) (Auto) 13 % (24-48) Monocytes (%) (Auto) 5 % (0-9) Eosinophils (%) (Auto) 3 % (0-3) Basophils (%) (Auto) 1 % (0-3) Neutrophils # (Auto) 7.6 x10^3/uL (1.8-7.7) Lymphocytes # (Auto) 1.3 x10^3/uL (1.0-4.8) Monocytes # (Auto) 0.5 x10^3/uL (0.0-1.1) Eosinophils # (Auto) 0.3 x10^3/uL (0.0-0.7) Basophils # (Auto) 0.1 x10^3/uL (0.0-0.2) Sodium Level 142 mmol/L (136-145) Potassium Level 4.4 mmol/L (3.5-5.1) Chloride Level 106 mmol/L (98-107) Carbon Dioxide Level 27 mmol/L (21-32) Anion Gap 9 (6-14) Blood Urea Nitrogen 30 mg/dL (8-26) Creatinine 5.1 mg/dL (0.7-1.3) Estimated GFR (Cockcroft-Gault) 11.7 Glucose Level 244 mg/dL (70-99) Calcium Level 7.1 mg/dL (8.5-10.1) Phosphorus Level 5.2 mg/dL (2.6-4.7) Magnesium Level 1.9 mg/dL (1.8-2.4) Albumin 1.4 g/dL (3.4-5.0) Glucose (Fingerstick) 268 mg/dL (70-99) Results All relevant outside records, renal labs, imaging studies, telemetry/EKG's were reviewed. Justicifation of Admission Dx: Justifications for Admission: Justification of Admission Dx: N/A REBECCA ANGLIN MD Jun 22, 2021 09:48
[2021-06-22] MEDS: IV DEXTROSE 5% - 0.9 % NACL 1,000 ML IV SCH (10:50)
[2021-06-22] MEDS: MORPHINE SULFATE 2 MG/ML INJ. IV PRN ×2 (11:01→16:03)
--- NOTE | 2021-06-22 12:22 | PDOC ---
PROGRESS NOTES Date of Service DATE: 06/22/21 TIME: 12:20 Subjective Subjective Problems overnight: No complaints currently pain is well controlled Objective Vital Signs Vital Signs Date Time Temp Pulse Resp B/P (MAP) Pulse Ox O2 Delivery O2 Flow Rate FiO2 06/22/21 11:30 97.7 68 20 143/73 97.7 06/22/21 11:01 Room Air 06/22/21 08:30 3.0 06/22/21 07:22 98 Physical Exam Cast is intact on right BKA stump with slight bloody shadowing medially. Left heel and great toe dressings clean dry intact Labs Laboratory Tests Test 06/22/21 05:40 06/22/21 07:16 White Blood Count 9.7 x10^3/uL (4.0-11.0) Red Blood Count 1.99 x10^6/uL (4.30-5.70) Hemoglobin 5.8 g/dL (13.0-17.5) Hematocrit 18.4 % (39.0-53.0) Mean Corpuscular Volume 92 fL (79-100) Mean Corpuscular Hemoglobin 29 pg (25-35) Mean Corpuscular Hemoglobin Concent 32 g/dL (31-37) Red Cell Distribution Width 21.1 % (11.5-14.5) Platelet Count 270 x10^3/uL (140-400) Neutrophils (%) (Auto) 78 % (31-73) Lymphocytes (%) (Auto) 13 % (24-48) Monocytes (%) (Auto) 5 % (0-9) Eosinophils (%) (Auto) 3 % (0-3) Basophils (%) (Auto) 1 % (0-3) Neutrophils # (Auto) 7.6 x10^3/uL (1.8-7.7) Lymphocytes # (Auto) 1.3 x10^3/uL (1.0-4.8) Monocytes # (Auto) 0.5 x10^3/uL (0.0-1.1) Eosinophils # (Auto) 0.3 x10^3/uL (0.0-0.7) Basophils # (Auto) 0.1 x10^3/uL (0.0-0.2) Sodium Level 142 mmol/L (136-145) Potassium Level 4.4 mmol/L (3.5-5.1) Chloride Level 106 mmol/L (98-107) Carbon Dioxide Level 27 mmol/L (21-32) Anion Gap 9 (6-14) Blood Urea Nitrogen 30 mg/dL (8-26) Creatinine 5.1 mg/dL (0.7-1.3) Estimated GFR (Cockcroft-Gault) 11.7 Glucose Level 244 mg/dL (70-99) Calcium Level 7.1 mg/dL (8.5-10.1) Phosphorus Level 5.2 mg/dL (2.6-4.7) Magnesium Level 1.9 mg/dL (1.8-2.4) Albumin 1.4 g/dL (3.4-5.0) Glucose (Fingerstick) 268 mg/dL (70-99) Laboratory Tests Test 06/22/21 05:40 06/22/21 07:16 White Blood Count 9.7 x10^3/uL (4.0-11.0) Red Blood Count 1.99 x10^6/uL (4.30-5.70) Hemoglobin 5.8 g/dL (13.0-17.5) Hematocrit 18.4 % (39.0-53.0) Mean Corpuscular Volume 92 fL (79-100) Mean Corpuscular Hemoglobin 29 pg (25-35) Mean Corpuscular Hemoglobin Concent 32 g/dL (31-37) Red Cell Distribution Width 21.1 % (11.5-14.5) Platelet Count 270 x10^3/uL (140-400) Neutrophils (%) (Auto) 78 % (31-73) Lymphocytes (%) (Auto) 13 % (24-48) Monocytes (%) (Auto) 5 % (0-9) Eosinophils (%) (Auto) 3 % (0-3) Basophils (%) (Auto) 1 % (0-3) Neutrophils # (Auto) 7.6 x10^3/uL (1.8-7.7) Lymphocytes # (Auto) 1.3 x10^3/uL (1.0-4.8) Monocytes # (Auto) 0.5 x10^3/uL (0.0-1.1) Eosinophils # (Auto) 0.3 x10^3/uL (0.0-0.7) Basophils # (Auto) 0.1 x10^3/uL (0.0-0.2) Sodium Level 142 mmol/L (136-145) Potassium Level 4.4 mmol/L (3.5-5.1) Chloride Level 106 mmol/L (98-107) Carbon Dioxide Level 27 mmol/L (21-32) Anion Gap 9 (6-14) Blood Urea Nitrogen 30 mg/dL (8-26) Creatinine 5.1 mg/dL (0.7-1.3) Estimated GFR (Cockcroft-Gault) 11.7 Glucose Level 244 mg/dL (70-99) Calcium Level 7.1 mg/dL (8.5-10.1) Phosphorus Level 5.2 mg/dL (2.6-4.7) Magnesium Level 1.9 mg/dL (1.8-2.4) Albumin 1.4 g/dL (3.4-5.0) Glucose (Fingerstick) 268 mg/dL (70-99) Assessment Assessment POD#right below-knee amputation and left heel and great toe debridement Plan Plan of Care Plan on continuing cast for protection and holding knee joint out in extension for BKA management, wound care for left heel and great toe I reminded him to be cognizant of keeping pressure off the left heel and that the nurses will also continue to check that Justicifation of Admission Dx: Justifications for Admission: Justification of Admission Dx: N/A BRANDO ARREOLA MD Jun 22, 2021 12:22
[2021-06-22] MEDS: VANCOMYCIN PER PHARMACY MC PRN (12:36)
[2021-06-22] MEDS: FOLIC/VIT B COMP W-C (RENAL) TABLET. PO SCH (12:54)
[2021-06-22] MEDS: ASPIRIN CHEWABLE 81 MG TABLET. PO SCH (12:54)
[2021-06-22] MEDS: ASCORBIC ACID 500 MG TABLET PO SCH (12:54)
[2021-06-22] MEDS: LACTOBACILLUS RHAMNOSUS GG 1 CAPSULE. PO SCH ×2 (12:54→19:48)
[2021-06-22] MEDS: LEVOTHYROXINE 100 MCG TABLET PO SCH (12:56)
[2021-06-22] MEDS: VANCOMYCIN 500 MG in IV NORMAL SALINE 100ML 100 ML IV SCH (16:08)
--- NOTE | 2021-06-22 16:44 | NUR ---
Wound/Ostomy Care Wound Type/Assessment: Wound care follow up post surgical I&D on left heel and left great toe wounds. Pt also has stage II PU to coccyx. Cleansed, assessed, pictured and redressed wounds. R BKA is casted. Treatment Recommendations/Plan: Cleanse wounds. Left heel-Apply saline moistened Hydrofera blue classic, cover with xeroform and foam. Change every 3 days. Great toe- apply contact layer and foam dressing, change every 3 days. Education provided: Wound care plan and PU prevention. Pt educated to wear heel medix boot to prevent further damage to heel wound. Pt was reluctant but agreed to wear it for now. Pt also refusing to turn even though he has a wound on coccyx Offloading surface/device: heel medix boot, pillows Recommended Referrals/Tests: na Discharge Recommendations for dressings: see above
[2021-06-22] MEDS: ATORVASTATIN CALCIUM 10 MG TABLET. PO SCH (19:48)
[2021-06-23] VITALS (16 sets, daily range): BP systolic 146–185; BP diastolic 59–82
[2021-06-23] MEDS: IV DEXTROSE 5% - 0.9 % NACL 1,000 ML IV SCH (05:36)
[2021-06-23] MEDS: PIPERACILLIN/TAZOBACTAM 2.25 GM in IV NORMAL SALINE 50ML 50 ML IV SCH (05:36)
[2021-06-23 07:32] LABS: HEMATOCRIT 21.8 % (39.0-53.0); HEMOGLOBIN 7.2 g/dL (13.0-17.5); RED BLOOD COUNT 2.41 x10^6/uL (4.30-5.70); RED CELL DISTRIBUTION WIDTH 19.9 % (11.5-14.5); WHITE BLOOD COUNT 10.1 x10^3/uL (4.0-11.0)
[2021-06-23 07:37] LABS: ALBUMIN 1.5 g/dL (3.4-5.0); CALCIUM 7.4 mg/dL (8.5-10.1); CREATININE 3.6 mg/dL (0.7-1.3); GFR 17.4; PHOSPHORUS 4.3 mg/dL (2.6-4.7); POTASSIUM 4.3 mmol/L (3.5-5.1)
[2021-06-23] MEDS: IPRATRPIUM/ALBUTEROL 0.5/2.5MG 3 ML NEBU. NEB SCH ×4 (07:55→20:00)
[2021-06-23] MEDS: INSULIN LISPRO 300 UNITS/3 ML VIAL. SQ SCH ×3 (08:03→17:55)
[2021-06-23] MEDS ORDERED: LIDOCAINE WITH 8.4% SOD BICARB 3 ML DISP.SYRIN. ONE (08:06)
[2021-06-23] MEDS ORDERED: IODIXANOL 320 MG/ML 100 ML VIAL. ONE (08:06)
[2021-06-23] MEDS ORDERED: fentaNYL PF VIAL 100 MCG/2 ML VIAL ONE (08:32)
[2021-06-23] MEDS ORDERED: MIDAZOLAM HCL/PF 2 MG/2 ML VIAL. ONE (08:32)
[2021-06-23] MEDS ORDERED: HEPARIN for IV BOLUS 10,000 UNIT/10 ML VIAL. ONE (08:33)
[2021-06-23] MEDS ORDERED: IODIXANOL 320 MG/ML 100 ML VIAL. IART ONE (09:15)
[2021-06-23] MEDS ORDERED: LIDOCAINE WITH 8.4% SOD BICARB 3 ML DISP.SYRIN. IJ ONE (09:15)
[2021-06-23] MEDS ORDERED: HEPARIN for IV BOLUS 10,000 UNIT/10 ML VIAL. IV ONE (09:15)
[2021-06-23] MEDS ORDERED: fentaNYL PF VIAL 100 MCG/2 ML VIAL IV ONE (09:15)
[2021-06-23] MEDS ORDERED: MIDAZOLAM HCL/PF 2 MG/2 ML VIAL. IV ONE (09:15)
[2021-06-23] MEDS: ASCORBIC ACID 500 MG TABLET PO SCH (09:53)
[2021-06-23] MEDS: CALCIUM ACETATE 667 MG CAPSULE PO SCH ×3 (09:53→17:52)
[2021-06-23] MEDS: ASPIRIN CHEWABLE 81 MG TABLET. PO SCH (09:53)
[2021-06-23] MEDS: FOLIC/VIT B COMP W-C (RENAL) TABLET. PO SCH (09:53)
[2021-06-23] MEDS: LEVOTHYROXINE 100 MCG TABLET PO SCH (09:53)
[2021-06-23] MEDS: LACTOBACILLUS RHAMNOSUS GG 1 CAPSULE. PO SCH ×2 (09:53→20:18)
[2021-06-23] MEDS: HYDROcodone/APAP 5/325MG 1 TAB TABLET PO PRN ×2 (09:55→20:17)
--- NOTE | 2021-06-23 09:56 | PDOC ---
Infectious Disease Note Subjective: Subjective Patient without complaints Vital Signs: Vital Signs Vital Signs Date Time Temp Pulse Resp B/P (MAP) Pulse Ox O2 Delivery O2 Flow Rate FiO2 06/23/21 09:29 68 11 99 Nasal Cannula 3.0 06/23/21 07:00 98.1 167/65 (99) 98.1 Physical Exam: PHYSICAL EXAM GENERAL: Thin male, in no acute distress. HEENT: Normocephalic, atraumatic. Anicteric. No thrush. NECK: Supple. LUNGS: Clear.some scattered rhonchi. HEART: S1, S2. ABDOMEN: Soft, nontender, nondistended. Bowel sounds present. EXTREMITIES: Left hip incision site looks intact. Steri-Strips in place. No drainage. RT BKA dressing intact, dry, LLE dressing with some blood stained guaze at the toe, not taken down RUE swelling chronic but improving slowly DERMATOLOGIC: Warm, dry, no generalized rash. NEUROLOGIC: Alert, awake, oriented x3, some weakness, but able to move all four extremities. Medications: Inpatient Meds: Medications reviewed. Labs: Lab Laboratory Tests Test 06/22/21 12:53 06/22/21 16:33 06/23/21 06:30 06/23/21 07:41 Glucose (Fingerstick) 142 mg/dL (70-99) 247 mg/dL (70-99) 303 mg/dL (70-99) White Blood Count 10.1 x10^3/uL (4.0-11.0) Red Blood Count 2.41 x10^6/uL (4.30-5.70) Hemoglobin 7.2 g/dL (13.0-17.5) Hematocrit 21.8 % (39.0-53.0) Mean Corpuscular Volume 90 fL (79-100) Mean Corpuscular Hemoglobin 30 pg (25-35) Mean Corpuscular Hemoglobin Concent 33 g/dL (31-37) Red Cell Distribution Width 19.9 % (11.5-14.5) Platelet Count 253 x10^3/uL (140-400) Sodium Level 141 mmol/L (136-145) Potassium Level 4.3 mmol/L (3.5-5.1) Chloride Level 105 mmol/L (98-107) Carbon Dioxide Level 30 mmol/L (21-32) Anion Gap 6 (6-14) Blood Urea Nitrogen 19 mg/dL (8-26) Creatinine 3.6 mg/dL (0.7-1.3) Estimated GFR (Cockcroft-Gault) 17.4 Glucose Level 236 mg/dL (70-99) Calcium Level 7.4 mg/dL (8.5-10.1) Phosphorus Level 4.3 mg/dL (2.6-4.7) Magnesium Level 1.8 mg/dL (1.8-2.4) Albumin 1.5 g/dL (3.4-5.0) Objective: Assessment: 1. Chronic nonhealing right heel wound, status post incision and drainage on June 16. 2. Status post right great toe nail debridement June 16 3. Status post left hip repair recently for fracture. 4. Diabetes mellitus. 5. End-stage renal disease, on dialysis. 6. Overall generalized poor health. 06/20 S/P Right below knee amputation, irrigation debridement of left tip of great toe, removal left great toenail and debridement of skin subcutaneous tissue left heel 7. Anemia 8. Generalized debility 9. Chronic right upper extremity swelling evaluated for patency for AV fistula Plan: Plan of Care JAQUI Mondragon and Rob Offload Monitor local wound care Local wound care as directed Continue supportive care Elevate WANDA d/w and nursing staff NORA KOROMA MD Jun 23, 2021 09:56
--- NOTE | 2021-06-23 11:26 | PDOC ---
[employer] PROGRESS NOTE Date of Service DOS: DATE: 06/23/21 TIME: 11:24 Chief Complaint Chief Complaint Right heel nonhealing wound status post I&D 06/16/[address] Joiner, pending BKA Left heel and toe dry gangrene concerning for osteomyelitis pending debridement Acute distal left posterior tibial artery occlusion Recent left hip surgery Anemia of CKD Mild hyperkalemia ESRD on HD Elevated ALP suggestive of bone disease Debilitation Severe protein malnutrition Bedbound status Right upper extremity fistula with possible narrowing versus obstruction Hypoglycemia Continue hypoglycemia protocol IR consulted for possible fistulogram Vascular surgery consult for left heel wound and posterior tibial artery occlusion on the left side. ID consult for antibiotic management Orthopedic consult for right foot wound management Wound care consult Pending left foot x-ray to rule out osteomyelitis Consider vascular surgery consult if intervention can improve healing of foot ulcers Nephrology consult for HD Heparin for DVT prophylaxis Protonix GI prophylaxis ADA diet CODE STATUS full Discussed with RN and SW Disposition inpatient management as above DPOA: History of Present Illness History of Present Illness 61-year-old male who was sent [facility] from [facility] mainly due to ulc eration of his right heel that got infected and required a formal I&D by orthopedic surgery. Patient underwent surgery yesterday and tolerated procedure well. Unfortunately, patient is a poor historian and is unsure of how his wounds progressively worsened. Other than that, patient can only state that he is currently just not have any pain nor does he have any fevers, chest pain, abdominal pain, diarrhea or dizziness. 06/18/2021 No acute events overnight. Patient seen and examined bedside. T-max of 100.9 overnight continues to be on vancomycin and Zosyn. Patient also has right upper extremity swelling. at bedside states that patient has not really been moving his right arm since his fistula. Patient has all the equipment to help mature the fistula but unsure if patient has been compliant with exercises. Patient's chart, labs, images were reviewed and discussed with RN 06/19/2021 No acute events overnight. Patient seen and examined bedside. On empiric IV antibiotics. Plan for right BKA today. Possible left heel debridement. Vascular surgery following along with orthopedic surgery. Appreciate the recommendations and management of all surgical interventions. Discussed with at bedside as well and also the possibility of needing a fistulogram after duplex of the fistula. expressed understanding and agrees with our plan and willing to the procedures. Patient's chart, labs, images were reviewed and discussed with RN 06/20/2021 No acute events overnight. Status post BKA. Patient seen and examined bedside. Pain is well controlled. Continued IV antibiotics and IV pain control. We will transition to p.o. pain control once tolerating diet. Started on insulin sliding scale and DC long-acting insulin due to hypoglycemia. Patient's chart, labs, images were reviewed and discussed with RN 06/21/2021 No acute events overnight. Patient seen and examined bedside. Resting comfortably at this time. Pain is well controlled. No concerns nursing. Patient's chart, labs, images were reviewed and discussed with RN 06/22/2021: Hemoglobin 5.8 today. Discussed with RN, will transfuse 1 unit PRBC yesterday as his regular scheduled HD day. S/P right BKA on 06/19/2021; worked with PT who is recommending SNU. Continue antibiotics, per ID. He is to have a fistulogram tomorrow, per vascular surgery. Discussed with RN. 06/23/2021: Denies significant pain today. Spouse at bedside. Hemoglobin 7.2 today, s/p right BKA. He is scheduled to have a fistulogram today, per vascular surgery. When stable he will eventually discharge back to [facility]. Vitals/I&O Vitals/I&O: Vital Signs Date Time Temp Pulse Resp B/P (MAP) Pulse Ox O2 Delivery O2 Flow Rate FiO2 06/23/21 11:17 100 Nasal Cannula 3.0 06/23/21 09:29 68 11 06/23/21 07:00 98.1 167/65 (99) 98.1 I & O 06/22/21 06/22/21 06/23/21 15:00 23:00 07:00 Intake Total 170 ml 270 ml 1050 ml Output Total 200 ml Balance -30 ml 270 ml 1050 ml Physical Exam Physical Exam: GENERAL: Thin male, in no acute distress. HEENT: Normocephalic, atraumatic. Anicteric. No thrush. NECK: Supple. LUNGS: Clear.some scattered rhonchi. HEART: S1, S2. ABDOMEN: Soft, nontender, nondistended. Bowel sounds present. EXTREMITIES: Left hip incision site looks intact. Steri-Strips in place. No drainage. RT BKA dressing intact, dry, LLE dressing with some blood stained guaze at the toe, not taken down RUE swelling chronic but improving slowly DERMATOLOGIC: Warm, dry, no generalized rash. NEUROLOGIC: Alert, awake, oriented x3, some weakness, but able to move all four extremities. General: Alert, Oriented X3, Cooperative Heart: Regular rate Lungs: Clear Abdomen: Soft, No tenderness Extremities: Other (S/P right BKA) Skin: Other (Left lower extremity in bandages with bandages clean/dry/intact; no active bleeding.) Labs Labs: Laboratory Tests Test 06/22/21 12:53 06/22/21 16:33 06/23/21 06:30 06/23/21 07:41 Glucose (Fingerstick) 142 mg/dL (70-99) 247 mg/dL (70-99) 303 mg/dL (70-99) White Blood Count 10.1 x10^3/uL (4.0-11.0) Red Blood Count 2.41 x10^6/uL (4.30-5.70) Hemoglobin 7.2 g/dL (13.0-17.5) Hematocrit 21.8 % (39.0-53.0) Mean Corpuscular Volume 90 fL (79-100) Mean Corpuscular Hemoglobin 30 pg (25-35) Mean Corpuscular Hemoglobin Concent 33 g/dL (31-37) Red Cell Distribution Width 19.9 % (11.5-14.5) Platelet Count 253 x10^3/uL (140-400) Sodium Level 141 mmol/L (136-145) Potassium Level 4.3 mmol/L (3.5-5.1) Chloride Level 105 mmol/L (98-107) Carbon Dioxide Level 30 mmol/L (21-32) Anion Gap 6 (6-14) Blood Urea Nitrogen 19 mg/dL (8-26) Creatinine 3.6 mg/dL (0.7-1.3) Estimated GFR (Cockcroft-Gault) 17.4 Glucose Level 236 mg/dL (70-99) Calcium Level 7.4 mg/dL (8.5-10.1) Phosphorus Level 4.3 mg/dL (2.6-4.7) Magnesium Level 1.8 mg/dL (1.8-2.4) Albumin 1.5 g/dL (3.4-5.0) Comment Review of Relevant I have reviewed the following items yesenia (where applicable) has been applied. Medications: Current Medications Medications (Trade) Dose Ordered Sig/Celi Route PRN Reason Start Time Stop Time Status Last Admin Dose Admin Heparin Sodium/ Sodium Chloride (HEPARIN for ARTERIAL LINE FLUSH) 1,000 unit 1X ONCE IART 06/23/21 09:15 06/23/21 09:16 DC 06/23/21 09:24 Lidocaine HCl (Buffered Lidocaine 1%) 3 ml 1X ONCE IJ 06/23/21 09:15 06/23/21 09:16 DC 06/23/21 09:24 Midazolam HCl (Versed) 2 mg 1X ONCE IV 06/23/21 09:15 06/23/21 09:16 DC 06/23/21 09:25 Fentanyl Citrate (Fentanyl 2ml Vial) 100 mcg 1X ONCE IV 06/23/21 09:15 06/23/21 09:16 DC 06/23/21 09:25 Iodixanol (Visipaque 320) 100 ml 1X ONCE IART 06/23/21 09:15 06/23/21 09:16 DC 06/23/21 09:24 Heparin Sodium (Porcine) (Heparin Sodium) 4,000 unit 1X ONCE IV 06/23/21 09:15 06/23/21 09:16 DC 06/23/21 09:26 Justifications for Admission Other Justification ESRD, fluid overload JOSE TRAVIS MD Jun 23, 2021 11:26
--- NOTE | 2021-06-23 13:13 | PDOC ---
DATE OF SERVICE DATE: 06/23/21 TIME: 13:10 SUBJECTIVE ROS No complaints today OBJECTIVE Vital Signs Vital Signs Date Time Temp Pulse Resp B/P (MAP) Pulse Ox O2 Delivery O2 Flow Rate FiO2 06/23/21 11:42 Nasal Cannula 3.0 06/23/21 11:17 100 06/23/21 11:00 98.0 75 18 177/73 (107) 98.0 I & 0 Intake and Output 06/23/21 07:00 Intake Total 1490 ml Output Total 200 ml Balance 1290 ml Intake Oral 240 ml IV Total 1250 ml Output Urine Total 200 ml PHYSICAL EXAM Physical Exam GENERAL: NAD HEENT: OM moist , On Chronic home O2 NECK: Supple. LUNGS: Decreased breath sounds at the bases, non labored HEART: S1, S2. ABDOMEN: Soft, nontender. EXTREMITIES: AVG Rt ; Rt BKA recent SKIN : No generalized rash, no enriquez DIAGNOSIS/ASSESSMENT Assessment & Plan ESRD - [facility] Scanlno . No indication for dialysis today Access - Rt arm AVF -- Swelling in Rt arm since recent fall - was scheduled for Fistulogram as OP RT arm US Diffuse atherosclerotic vascular disease. Areas of increased velocity within the right brachial artery. A significant stenosis not excluded. . Possible area of stenosis involving the junction of the right cephalic and subclavian venous stent. Possible significant stenosis at the arteriovenous anastomosis. Consider right upper extremity fistulogram for further characterization as clinically indicated. S/P Fistulogram today HyperKalemia- K normal Anemia Hgb 5.8 on 06/22 s/p PRBC Recd Epogen on 06/18 Right heel wound, status post incision and drainage- s/p Irrigation debridement of right heel ulcer skin subcutaneous tissue and removal of right great toenail. S/P right below-knee amputation and left heel and great toe de bridement on 06/19 Recent history Acute Lt Femoral neck displaced fracture s/p Lt Hip Repair COPD with home O2 dependency history of poorly controlled diabetes Hypertension BP stable Anemia- Hgb Low, Monitor, On FABIAN COMMENT/RELEVANT DATA Meds Current Medications Medications (Trade) Dose Ordered Sig/Celi Start Time Stop Time Status Last Admin Dose Admin Acetaminophen/ Hydrocodone Bitart (Lortab 5/325) 1 tab PRN Q4HRS PRN 06/17/21 14:45 06/23/21 09:55 1 TAB Albumin Human 200 ml @ 200 mls/hr 1X PRN PRN 06/22/21 08:45 06/22/21 14:44 DC Albuterol/ Ipratropium (Duoneb) 3 ml RTQID 06/17/21 16:00 06/23/21 11:41 3 ML Ascorbic Acid (Vitamin C) 500 mg DAILY 06/18/21 09:00 06/23/21 09:53 500 MG Aspirin (Aspirin Chewable) 81 mg [id number] 06/18/21 08:00 06/23/21 09:53 81 MG Atorvastatin Calcium (Lipitor) 10 mg HS 06/17/21 21:00 06/22/21 19:48 10 MG Budesonide (Pulmicort) 0.5 mg PRN BID PRN 06/17/21 14:45 06/21/21 11:47 0.5 MG Calcium Acetate (Phoslo) 667 mg TIDWMEALS 06/17/21 17:00 06/23/21 12:31 667 MG Ceftriaxone Sodium (Rocephin) 1 gm Q24H 06/16/21 17:00 06/17/21 10:23 DC 06/16/21 21:32 1 GM Dexamethasone Sodium Phosphate (Decadron) 4 mg STK-MED ONCE 06/19/21 11:59 06/19/21 12:00 DC Dextrose (Dextrose 50%-Water Syringe) 50 gm STK-MED ONCE 06/19/21 10:00 06/22/21 12:55 DC Dextrose/Sodium Chloride 1,000 ml @ 75 mls/hr [id number] 06/16/21 21:30 06/23/21 05:36 75 MLS/HR Diphenhydramine HCl (Benadryl) 25 mg 1X PRN PRN 06/22/21 08:45 06/23/21 08:44 DC Docusate Sodium (Colace) 100 mg PRN BID PRN 06/17/21 14:45 Ephedrine Sulfate (ePHEDrine PF IN SALINE SYRINGE) 50 mg STK-MED ONCE 06/19/21 14:25 06/19/21 14:25 DC Epoetin Luís-epbx (RETACRIT for ESRD PTS) 20,000 unit 1X ONCE 06/18/21 11:00 06/18/21 11:01 DC 06/18/21 12:02 20,000 UNIT Fentanyl Citrate (Fentanyl 2ml Vial) 100 mcg 1X ONCE 06/23/21 09:15 06/23/21 09:16 DC 06/23/21 09:25 50 MCG Heparin Sodium (Porcine) (Heparin Sodium) 4,000 unit 1X ONCE 06/23/21 09:15 06/23/21 09:16 DC 06/23/21 09:26 4,000 UNIT Heparin Sodium/ Sodium Chloride (HEPARIN for ARTERIAL LINE FLUSH) 1,000 unit 1X ONCE 06/23/21 09:15 06/23/21 09:16 DC 06/23/21 09:24 1,000 UNIT Hydromorphone HCl (Dilaudid) 0.5 mg PRN Q10MIN PRN 06/19/21 12:30 06/19/21 20:00 DC Info (PHARMACY MONITORING -- do not chart) 1 each PRN DAILY PRN 06/22/21 08:45 Insulin Glargine (Lantus Syringe) 10 unit QHS 06/17/21 21:00 06/20/21 08:59 DC 06/19/21 22:11 10 UNIT Insulin Human Lispro (HumaLOG VIAL for OP,RR ONLY) 0-10 units PRN Q1HR PRN 06/16/21 14:45 06/16/21 21:00 DC 06/16/21 16:00 2 UNIT Insulin Human Lispro (HumaLOG) 0-5 UNITS TIDWMEALS 06/20/21 12:00 06/23/21 08:03 3 UNITS Iodixanol (Visipaque 320) 100 ml 1X ONCE 06/23/21 09:15 06/23/21 09:16 DC 06/23/21 09:24 27 ML Lactobacillus Rhamnosus (Culturelle) 1 cap BID 06/17/21 21:00 06/23/21 09:53 1 CAP Levothyroxine Sodium (Synthroid) 300 mcg DAILYAC 06/18/21 07:30 06/23/21 09:53 300 MCG Lidocaine HCl (Buffered Lidocaine 1%) 3 ml 1X ONCE 06/23/21 09:15 06/23/21 09:16 DC 06/23/21 09:24 2 ML Lidocaine HCl (Lidocaine Pf 2% Vial) 5 ml STK-MED ONCE 06/19/21 11:59 06/19/21 12:00 DC Magnesium Sulfate 50 ml @ 25 mls/hr PRN DAILY PRN 06/21/21 10:30 Midazolam HCl (Versed) 2 mg 1X ONCE 06/23/21 09:15 06/23/21 09:16 DC 06/23/21 09:25 1 MG Morphine Sulfate (Morphine Sulfate) 1 mg PRN Q10MIN PRN 06/19/21 12:30 06/19/21 20:00 DC Ondansetron HCl (Zofran) 4 mg STK-MED ONCE 06/19/21 11:59 06/19/21 12:00 DC Phenylephrine HCl (PHENYLEPHRINE in 0.9% NACL PF) 1 mg STK-MED ONCE 06/16/21 15:04 06/16/21 15:05 DC Piperacillin Sod/ Tazobactam Sod 2.25 gm/Sodium Chloride 50 ml @ 100 mls/hr Q8HRS 06/17/21 12:00 06/23/21 11:10 DC 06/23/21 05:36 100 MLS/HR Prochlorperazine Edisylate (Compazine) 5 mg PACU PRN PRN 06/19/21 12:30 06/19/21 20:00 DC Propofol (Diprivan) 200 mg STK-MED ONCE 06/19/21 11:59 06/19/21 12:00 DC Ringer's Solution 1,000 ml @ 30 mls/hr Q24H 06/19/21 12:30 06/20/21 00:29 DC Sevoflurane (Ultane) 60 ml STK-MED ONCE 06/19/21 14:25 06/19/21 14:25 DC Sodium Chloride 1,000 ml @ 400 mls/hr Q2H30M PRN 06/22/21 08:45 06/22/21 20:44 DC Vancomycin HCl (Vanco Per Pharmacy) 1 each PRN DAILY PRN 06/17/21 10:30 06/23/21 11:12 DC 06/22/21 12:36 1 EACH Vancomycin HCl (Vancomycin Random Level) 1 each 1X ONCE 06/19/21 06:00 06/19/21 06:01 DC 06/19/21 07:35 1 EACH Vancomycin HCl 1.75 gm/Sodium Chloride 500 ml @ 250 mls/hr 1X ONCE 06/17/21 12:00 06/17/21 13:59 DC 06/17/21 14:10 250 MLS/HR Vancomycin HCl 500 mg/Sodium Chloride 100 ml @ 100 mls/hr QMWF 06/19/21 16:00 06/23/21 11:10 DC 06/22/21 16:08 100 MLS/HR Vitamin B Complex/ Vitamin C (Madai-Sean) 1 tab DAILY 06/18/21 09:00 06/23/21 09:53 1 TAB Lab Laboratory Tests Test 06/22/21 16:33 06/23/21 06:30 06/23/21 07:41 06/23/21 11:46 Glucose (Fingerstick) 247 mg/dL (70-99) 303 mg/dL (70-99) 145 mg/dL (70-99) White Blood Count 10.1 x10^3/uL (4.0-11.0) Red Blood Count 2.41 x10^6/uL (4.30-5.70) Hemoglobin 7.2 g/dL (13.0-17.5) Hematocrit 21.8 % (39.0-53.0) Mean Corpuscular Volume 90 fL (79-100) Mean Corpuscular Hemoglobin 30 pg (25-35) Mean Corpuscular Hemoglobin Concent 33 g/dL (31-37) Red Cell Distribution Width 19.9 % (11.5-14.5) Platelet Count 253 x10^3/uL (140-400) Sodium Level 141 mmol/L (136-145) Potassium Level 4.3 mmol/L (3.5-5.1) Chloride Level 105 mmol/L (98-107) Carbon Dioxide Level 30 mmol/L (21-32) Anion Gap 6 (6-14) Blood Urea Nitrogen 19 mg/dL (8-26) Creatinine 3.6 mg/dL (0.7-1.3) Estimated GFR (Cockcroft-Gault) 17.4 Glucose Level 236 mg/dL (70-99) Calcium Level 7.4 mg/dL (8.5-10.1) Phosphorus Level 4.3 mg/dL (2.6-4.7) Magnesium Level 1.8 mg/dL (1.8-2.4) Albumin 1.5 g/dL (3.4-5.0) Results All relevant outside records, renal labs, imaging studies, telemetry/EKG's were reviewed. Justicifation of Admission Dx: Justifications for Admission: Justification of Admission Dx: N/A REBECCA ANGLIN MD Jun 23, 2021 13:13
[2021-06-23] MEDS: MORPHINE SULFATE 2 MG/ML INJ. IV PRN (13:21)
--- NOTE | 2021-06-23 15:28 | RAD ---
Right upper extremity fistulogram 06/23/2021 INDICATION: Right upper extremity edema COMPARISON STUDY: Prior right upper extremity fistulogram November 26, 2019 Consent: The procedure was explained in its entirety to the patient or the patients designated repres entative by a member of the treatment team, including a discussion of the risks, benefits and commonl y accepted alternatives to the procedure, as well as the expected consequences of no therapy whatsoev er. Discussion of the risks included, but was not limited to, those that are most frequent and thos e that are rare but possibly severe or life-threatening, as well as the possibility of unforeseen com plications. The right upper extremity was prepped and draped using maximum sterile barrier technique including e use of: Current guideline approved cutaneous antisepsis, a large sterile sheet to establish a steri le field. Additionally the cake press operator helper wore a hat, mask, sterile gloves, a sterile gown during the proce dure as well as practiced acceptable hand hygiene prior to the procedure. Ultrasound evaluation demonstrates a patent arterial anastomosis. Relative narrowing of the arterial anastomosis with respect to the brachial artery and outflow vein similar to comparison study, but not felt to be flow limiting. No thrombus is identified. Ectatic areas of the outflow vein noted. 1% lid ocaine was administered for local anesthesia. The fistula was accessed directed towards outflow using micropuncture technique and direct ultrasound guidance. Reference ultrasound images were saved in [facility] medical record. A 4 Iraqi vascular sheath was placed. Fistulograms were obtained demonstrating mod erate stenoses at the junction of the cephalic and subclavian veins. There is stenosis at the subclav rachel and innominate vein which contains a self-expanding stent. Some in-stent stenosis is also seen. A wire was advanced into the IVC. Balloon dilatation of both areas of stenosis was performed with a 10 mm high-pressure balloon. This resulted in mineralization a collateral flow, and significant softeni ng of the fistula which became notably softer and less pulsatile. Pursestring suture was placed as e sheath was removed. Sterile dressings were applied. No immediate complications were identified. Total fluoroscopy time: 5.8 minutes Dose area product 19 Beatty centimeter squared Sedation: The procedure was performed under conscious sedation including continuous cardiopulmonary m onitoring via a dedicated sedation nurse. Sywi-bz-olah sedation time: 47 minutes IMPRESSION: Moderate stenoses at the junction of the previously stented cephalic vein and subclavian vein, as well as the subclavian vein in the right innominate vein treated with balloon angioplasty w ith improvement morphology and flow. Electronically signed by: David Elliott MD (06/23/2021 3:26 PM) [id number]
--- NOTE | 2021-06-23 15:28 | RAD ---
Right upper extremity fistulogram 06/23/2021 INDICATION: Right upper extremity edema COMPARISON STUDY: Prior right upper extremity fistulogram November 26, 2019 Consent: The procedure was explained in its entirety to the patient or the patients designated repres entative by a member of the treatment team, including a discussion of the risks, benefits and commonl y accepted alternatives to the procedure, as well as the expected consequences of no therapy whatsoev er. Discussion of the risks included, but was not limited to, those that are most frequent and thos e that are rare but possibly severe or life-threatening, as well as the possibility of unforeseen com plications. The right upper extremity was prepped and draped using maximum sterile barrier technique including e use of: Current guideline approved cutaneous antisepsis, a large sterile sheet to establish a steri le field. Additionally the lead laying and gluing machine operator wore a hat, mask, sterile gloves, a sterile gown during the proce dure as well as practiced acceptable hand hygiene prior to the procedure. Ultrasound evaluation demonstrates a patent arterial anastomosis. Relative narrowing of the arterial anastomosis with respect to the brachial artery and outflow vein similar to comparison study, but not felt to be flow limiting. No thrombus is identified. Ectatic areas of the outflow vein noted. 1% lid ocaine was administered for local anesthesia. The fistula was accessed directed towards outflow using micropuncture technique and direct ultrasound guidance. Reference ultrasound images were saved in [facility] medical record. A 4 Slovenian vascular sheath was placed. Fistulograms were obtained demonstrating mod erate stenoses at the junction of the cephalic and subclavian veins. There is stenosis at the subclav rachel and innominate vein which contains a self-expanding stent. Some in-stent stenosis is also seen. A wire was advanced into the IVC. Balloon dilatation of both areas of stenosis was performed with a 10 mm high-pressure balloon. This resulted in mineralization a collateral flow, and significant softeni ng of the fistula which became notably softer and less pulsatile. Pursestring suture was placed as e sheath was removed. Sterile dressings were applied. No immediate complications were identified. Total fluoroscopy time: 5.8 minutes Dose area product 19 Beatty centimeter squared Sedation: The procedure was performed under conscious sedation including continuous cardiopulmonary m onitoring via a dedicated sedation nurse. [id number] sedation time: 47 minutes IMPRESSION: Moderate stenoses at the junction of the previously stented cephalic vein and subclavian vein, as well as the subclavian vein in the right innominate vein treated with balloon angioplasty w ith improvement morphology and flow. Electronically signed by: David Elliott MD (06/23/2021 3:26 PM) [id number]
[2021-06-23] MEDS: ATORVASTATIN CALCIUM 10 MG TABLET. PO SCH (20:18)
[2021-06-24 07:00] VITALS: BP 162/53
--- NOTE | 2021-06-24 07:08 | PDOC ---
Infectious Disease Note Subjective: Subjective Patient without complaints Vital Signs: Vital Signs Vital Signs Date Time Temp Pulse Resp B/P (MAP) Pulse Ox O2 Delivery O2 Flow Rate FiO2 06/24/21 03:52 Nasal Cannula 3.0 06/23/21 23:44 98.8 71 20 161/64 (96) 99 98.8 Physical Exam: PHYSICAL EXAM GENERAL: Thin male, in no acute distress. HEENT: Normocephalic, atraumatic. Anicteric. No thrush. NECK: Supple. LUNGS: Clear.some scattered rhonchi. HEART: S1, S2. ABDOMEN: Soft, nontender, nondistended. Bowel sounds present. EXTREMITIES: Left hip incision site looks intact. Steri-Strips in place. No drainage. RT BKA dressing intact, dry, LLE dressing with some blood stained guaze at the toe, not taken down RUE swelling chronic but improving slowly DERMATOLOGIC: Warm, dry, no generalized rash. NEUROLOGIC: Alert, awake, oriented x3, some weakness, but able to move all four extremities. Medications: Inpatient Meds: Medications reviewed. Labs: Lab Laboratory Tests Test 06/23/21 07:41 06/23/21 11:46 06/23/21 17:30 06/23/21 20:55 Glucose (Fingerstick) 303 mg/dL (70-99) 145 mg/dL (70-99) 187 mg/dL (70-99) 150 mg/dL (70-99) Objective: Assessment: 1. Chronic nonhealing right heel wound, status post incision and drainage on June 16. 2. Status post right great toe nail debridement June 16 3. Status post left hip repair recently for fracture. 4. Diabetes mellitus. 5. End-stage renal disease, on dialysis. 6. Overall generalized poor health. 06/20 S/P Right below knee amputation, irrigation debridement of left tip of great toe, removal left great toenail and debridement of skin subcutaneous tissue left heel No cultures available 7. Anemia 8. Generalized debility 9. Chronic right upper extremity swelling status post fistulogram Plan: Plan of Care Monitor off antibiotics Offload Monitor local wound care Local wound care as directed Continue supportive care Elevate NORA ANTHONY MD Jun 24, 2021 07:08
[2021-06-24] MEDS: IPRATRPIUM/ALBUTEROL 0.5/2.5MG 3 ML NEBU. NEB SCH ×3 (07:33→16:12)
[2021-06-24] MEDS: INSULIN LISPRO 300 UNITS/3 ML VIAL. SQ SCH ×2 (08:00→12:00)
[2021-06-24] MEDS: ASCORBIC ACID 500 MG TABLET PO SCH (08:23)
[2021-06-24] MEDS: LACTOBACILLUS RHAMNOSUS GG 1 CAPSULE. PO SCH (08:23)
[2021-06-24] MEDS: CALCIUM ACETATE 667 MG CAPSULE PO SCH ×2 (08:23→13:25)
[2021-06-24] MEDS: FOLIC/VIT B COMP W-C (RENAL) TABLET. PO SCH (08:23)
[2021-06-24] MEDS: ASPIRIN CHEWABLE 81 MG TABLET. PO SCH (08:24)
[2021-06-24] MEDS: LEVOTHYROXINE 100 MCG TABLET PO SCH (08:24)
[2021-06-24] MEDS ORDERED: ALBUMIN HUMAN 25% 200 ML IV PRN (09:00)
[2021-06-24] MEDS ORDERED: IV NORMAL SALINE 1000ML BAG 1,000 ML IV PRN ×2 (09:00)
[2021-06-24 10:03] LABS: ALBUMIN 1.5 g/dL (3.4-5.0); CREATININE 4.4 mg/dL (0.7-1.3); GFR 13.8; PHOSPHORUS 5.5 mg/dL (2.6-4.7)
[2021-06-24] MEDS: HYDROcodone/APAP 5/325MG 1 TAB TABLET PO PRN (11:19)
[2021-06-24] MEDS ORDERED: DIALYSIS PATIENT. MC PRN ×2 (11:30)
--- NOTE | 2021-06-24 11:40 | PDOC ---
[employer] PROGRESS NOTE Date of Service DOS: DATE: 06/24/21 TIME: 11:25 Chief Complaint Chief Complaint Right heel nonhealing wound status post I&D 06/16/[address] Joiner, pending BKA Left heel and toe dry gangrene concerning for osteomyelitis pending debridement Acute distal left posterior tibial artery occlusion Recent left hip surgery Anemia of CKD Mild hyperkalemia ESRD on HD Elevated ALP suggestive of bone disease Debilitation Severe protein malnutrition Bedbound status Right upper extremity fistula with possible narrowing versus obstruction Hypoglycemia Continue hypoglycemia protocol IR consulted for possible fistulogram Vascular surgery consult for left heel wound and posterior tibial artery occlusion on the left side. ID consult for antibiotic management Orthopedic consult for right foot wound management Wound care consult Pending left foot x-ray to rule out osteomyelitis Consider vascular surgery consult if intervention can improve healing of foot ulcers Nephrology consult for HD Heparin for DVT prophylaxis Protonix GI prophylaxis ADA diet CODE STATUS full Discussed with RN and SW Disposition inpatient management as above DPOA: History of Present Illness History of Present Illness 61-year-old male who was sent over from healthcare resort mainly due to ulc eration of his right heel that got infected and required a formal I&D by orthopedic surgery. Patient underwent surgery yesterday and tolerated procedure well. Unfortunately, patient is a poor historian and is unsure of how his wounds progressively worsened. Other than that, patient can only state that he is currently just not have any pain nor does he have any fevers, chest pain, abdominal pain, diarrhea or dizziness. 06/18/2021 No acute events overnight. Patient seen and examined bedside. T-max of 100.9 overnight continues to be on vancomycin and Zosyn. Patient also has right upper extremity swelling. at bedside states that patient has not really been moving his right arm since his fistula. Patient has all the equipment to help mature the fistula but unsure if patient has been compliant with exercises. Patient's chart, labs, images were reviewed and discussed with RN 06/19/2021 No acute events overnight. Patient seen and examined bedside. On empiric IV antibiotics. Plan for right BKA today. Possible left heel debridement. Vascular surgery following along with orthopedic surgery. Appreciate the recommendations and management of all surgical interventions. Discussed with at bedside as well and also the possibility of needing a fistulogram after duplex of the fistula. expressed understanding and agrees with our plan and willing to the procedures. Patient's chart, labs, images were reviewed and discussed with RN 06/20/2021 No acute events overnight. Status post BKA. Patient seen and examined bedside. Pain is well controlled. Continued IV antibiotics and IV pain control. We will transition to p.o. pain control once tolerating diet. Started on insulin sliding scale and DC long-acting insulin due to hypoglycemia. Patient's chart, labs, images were reviewed and discussed with RN 06/21/2021 No acute events overnight. Patient seen and examined bedside. Resting comfortably at this time. Pain is well controlled. No concerns nursing. Patient's chart, labs, images were reviewed and discussed with RN 06/22/2021: Hemoglobin 5.8 today. Discussed with RN, will transfuse 1 unit PRBC yesterday as his regular scheduled HD day. S/P right BKA on 06/19/2021; worked with PT who is recommending SNU. Continue antibiotics, per ID. He is to have a fistulogram tomorrow, per vascular surgery. Discussed with RN. 06/23/2021: Denies significant pain today. Spouse at bedside. Hemoglobin 7.2 today, s/p right BKA. He is scheduled to have a fistulogram today, per vascular surgery. When stable he will eventually discharge back to [facility]. 06/24/2021: Patient seen in hemodialysis. S/P right upper extremity fistulogram showing moderate stenoses at the junction of the previously stented cephalic vein and subclavian vein, as well as the subclavian vein in the right innominate vein that was treated with balloon angioplasty with improvement morphology and flow. Off antibiotics; continue local wound care. Admits to some pain with movement. Discussed with Dr. Joiner, stable for discharge to rehab. He will need COVID-19 test prior to returning to [facility]. Results of which may return shortly. Will prepare discharge accordingly. Greater than 30 minutes spent managing the discharge of this patient. Vitals/I&O Vitals/I&O: Vital Signs Date Time Temp Pulse Resp B/P (MAP) Pulse Ox O2 Delivery O2 Flow Rate FiO2 06/24/21 11:19 14 95 Nasal Cannula 5.0 06/24/21 07:00 98.0 76 162/53 (89) 98.0 I & O 06/23/21 06/23/21 06/24/21 15:00 23:00 07:00 Intake Total 240 ml 240 ml Output Total 0 ml Balance 240 ml 240 ml Physical Exam Physical Exam: General: Alert, Oriented X3, Cooperative Heart: Regular rate Lungs: Clear Abdomen: Soft, No tenderness Extremities: Other (S/P right BKA) Skin: Other (Left lower extremity in bandages with bandages clean/dry/intact; no active bleeding.) Labs Labs: Laboratory Tests Test 06/23/21 11:46 06/23/21 17:30 06/23/21 20:55 06/24/21 08:00 Glucose (Fingerstick) 145 mg/dL (70-99) 187 mg/dL (70-99) 150 mg/dL (70-99) 116 mg/dL (70-99) Test 06/24/21 08:35 Sodium Level 141 mmol/L (136-145) Potassium Level 5.0 mmol/L (3.5-5.1) Chloride Level 106 mmol/L (98-107) Carbon Dioxide Level 26 mmol/L (21-32) Anion Gap 9 (6-14) Blood Urea Nitrogen 25 mg/dL (8-26) Creatinine 4.4 mg/dL (0.7-1.3) Estimated GFR (Cockcroft-Gault) 13.8 Glucose Level 80 mg/dL (70-99) Calcium Level 8.0 mg/dL (8.5-10.1) Phosphorus Level 5.5 mg/dL (2.6-4.7) Magnesium Level 2.1 mg/dL (1.8-2.4) Albumin 1.5 g/dL (3.4-5.0) Comment Review of Relevant I have reviewed the following items yesenia (where applicable) has been applied. Justifications for Admission Other Justification ESRD, fluid overload JOSE TRAVIS MD Jun 24, 2021 11:40
--- NOTE | 2021-06-24 11:46 | PDOC3 ---
Discharge Summary Visit Information Date of Admission: Jun 17, 2021 Date of Discharge: Jun 24, 2021 Brief Hospital Course Allergies Allergies Coded Allergies Type Severity Reaction Last Updated Verified No Known Drug Allergies 06/16/21 No Vital Signs Vital Signs Date Time Temp Pulse Resp B/P (MAP) Pulse Ox O2 Delivery O2 Flow Rate FiO2 06/24/21 11:19 14 95 Nasal Cannula 5.0 06/24/21 07:00 98.0 76 162/53 (89) 98.0 Lab Results Laboratory Tests Test 06/22/21 12:53 06/22/21 16:33 06/23/21 06:30 06/23/21 07:41 Glucose (Fingerstick) 142 mg/dL (70-99) 247 mg/dL (70-99) 303 mg/dL (70-99) White Blood Count 10.1 x10^3/uL (4.0-11.0) Red Blood Count 2.41 x10^6/uL (4.30-5.70) Hemoglobin 7.2 g/dL (13.0-17.5) Hematocrit 21.8 % (39.0-53.0) Mean Corpuscular Volume 90 fL (79-100) Mean Corpuscular Hemoglobin 30 pg (25-35) Mean Corpuscular Hemoglobin Concent 33 g/dL (31-37) Red Cell Distribution Width 19.9 % (11.5-14.5) Platelet Count 253 x10^3/uL (140-400) Sodium Level 141 mmol/L (136-145) Potassium Level 4.3 mmol/L (3.5-5.1) Chloride Level 105 mmol/L (98-107) Carbon Dioxide Level 30 mmol/L (21-32) Anion Gap 6 (6-14) Blood Urea Nitrogen 19 mg/dL (8-26) Creatinine 3.6 mg/dL (0.7-1.3) Estimated GFR (Cockcroft-Gault) 17.4 Glucose Level 236 mg/dL (70-99) Calcium Level 7.4 mg/dL (8.5-10.1) Phosphorus Level 4.3 mg/dL (2.6-4.7) Magnesium Level 1.8 mg/dL (1.8-2.4) Albumin 1.5 g/dL (3.4-5.0) Test 06/23/21 11:46 06/23/21 17:30 06/23/21 20:55 06/24/21 08:00 Glucose (Fingerstick) 145 mg/dL (70-99) 187 mg/dL (70-99) 150 mg/dL (70-99) 116 mg/dL (70-99) Test 06/24/21 08:35 Sodium Level 141 mmol/L (136-145) Potassium Level 5.0 mmol/L (3.5-5.1) Chloride Level 106 mmol/L (98-107) Carbon Dioxide Level 26 mmol/L (21-32) Anion Gap 9 (6-14) Blood Urea Nitrogen 25 mg/dL (8-26) Creatinine 4.4 mg/dL (0.7-1.3) Estimated GFR (Cockcroft-Gault) 13.8 Glucose Level 80 mg/dL (70-99) Calcium Level 8.0 mg/dL (8.5-10.1) Phosphorus Level 5.5 mg/dL (2.6-4.7) Magnesium Level 2.1 mg/dL (1.8-2.4) Albumin 1.5 g/dL (3.4-5.0) Laboratory Tests Test 06/23/21 11:46 06/23/21 17:30 06/23/21 20:55 06/24/21 08:00 Glucose (Fingerstick) 145 mg/dL (70-99) 187 mg/dL (70-99) 150 mg/dL (70-99) 116 mg/dL (70-99) Test 06/24/21 08:35 Sodium Level 141 mmol/L (136-145) Potassium Level 5.0 mmol/L (3.5-5.1) Chloride Level 106 mmol/L (98-107) Carbon Dioxide Level 26 mmol/L (21-32) Anion Gap 9 (6-14) Blood Urea Nitrogen 25 mg/dL (8-26) Creatinine 4.4 mg/dL (0.7-1.3) Estimated GFR (Cockcroft-Gault) 13.8 Glucose Level 80 mg/dL (70-99) Calcium Level 8.0 mg/dL (8.5-10.1) Phosphorus Level 5.5 mg/dL (2.6-4.7) Magnesium Level 2.1 mg/dL (1.8-2.4) Albumin 1.5 g/dL (3.4-5.0) Brief Hospital Course Mr. Ochoa is a 61 old male who presented with right heel and great toe ulcers with nonviable right foot (per vascular surgery evaluation), left heel ulcer, left superficial great toe ulcer. Consultation was placed to orthopedic surgery, ID, and nephrology. He was treated with broad-spectrum IV antibiotics. He had irrigation debridement of right heel ulcer skin subcutaneous tissue and removal of right great toenail on 06/18. He subsequently had right below knee amputation, irrigation debridement of left tip of great toe, removal left great toenail and debridement of skin subcutaneous tissue left heel. After period of time he was monitored off antibiotics. He continued to receive his regular hemodialysis. Once stable he was able to [facility] back to [facility] for [facility]. Discharge Information Condition at Discharge: Stable Disposition/Orders: D/C to Another Facility Scheduled Acetaminophen (Tylenol) 325 Mg Tablet, 650 MG PO PRN Q6HRS for mild pain, (Reported) Entered as Reported by: VICKY PATE on 10/02/18 185 Last Action: HELD on 06/17/21 144 by PAWEL GARCÍA MD Ascorbic Acid (Vitamin C) 500 Mg Tablet, 500 MG PO DAILY for SUPPLEMENT for 30 Days, #30 Prescribed by: PABLO SHERMAN MD on 11/26/19 1605 Last Action: Continued on 06/17/21 1445 by PAWEL GARCÍA MD Aspirin (Aspirin) 81 Mg Tab.chew, 81 MG PO DAILYWBKFT for heart health for 30 Days, #30 Prescribed by: PABLO SHERMAN MD on 08/29/18 1346 Last Action: Continued on 06/17/21 1445 by PAWEL GARCÍA MD Atorvastatin Calcium (Atorvastatin Calcium) 10 Mg Tablet, 10 MG PO HS for FOR CHOLESTEROL, #30 Ref 0 (Reported) Entered as Reported by: JACQUIE HEADLEY RN on 05/29/212201 Last Action: Continued on 06/17/21 1445 by PAWEL GARCÍA MD Budesonide (Budesonide) 0.5 Mg/2 Ml Ampul.neb, 0.5 MG NEB RTBID for copd for 30 Days, #60 Prescribed by: PABLO SHERMAN MD on 08/29/18 1346 Last Action: Continued on 06/17/211444 by PAWEL GARCÍA MD Calcium Acetate (Calcium Acetate) 667 Mg Tablet, 667 MG PO TIDWMEALS for DIALYSIS PATIENTS, (Reported) Entered as Reported by: KWABENA RODRIGUEZ on 11/07/18 0315 Last Action: Converted on 06/17/211444 by PAWEL GARCÍA MD Ferrous Sulfate (Ferrous Sulfate) 325 Mg Tablet, 1 TAB PO DAILY for Dialysis, #30 Ref 3 (Reported) Entered as Reported by: MYNOR SIMON on 09/15/18 1159 Last Action: Reviewed on 06/16/211842 by BETHANY COVINGTON Folic Acid/Vitamin B Comp W-C (Madai-Sean Tablet) 0.8 Mg Tablet, 1 TAB PO DAILY for SUPPLEMENT for 30 Days, #30 Prescribed by: PABLO SHERMAN MD on 11/26/19 1605 Last Action: Continued on 06/17/211444 by PAWEL GARCÍA MD Furosemide (Furosemide) 80 Mg Tablet, 80 MG PO BID for diuretic, CHF, (Reported) Entered as Reported by: ESTEFANY AIKEN on 02/18/19 1251 Last Action: HELD on 06/17/211444 by PAWEL GARCÍA MD Insulin Glargine,Hum.rec.anlog (Lantus Solostar) 100 Unit/1 Ml Insuln.pen, 10 UNIT SQ QHS for hyperglycemia, #15 Ref 3 (Reported) Entered as Reported by: BETHANY COVINGTON on 06/16/211842 Last Action: Converted on 06/17/211444 by PAWEL GARCÍA MD Insulin Lispro (Admelog) 100 Unit/1 Ml Vial, 0 UNITS SQ TIDWMEALS for diabetes for 30 Days, #2 Prescribed by: PABLO SHERMAN MD on 07/31/20 1248 Last Taken: Unknown Dose on 06/16/21 0700 Last Action: Reviewed on 06/16/211842 by BETHANY COVINGTON Ipratropium/Albuterol Sulfate (Duoneb 0.5-3(2.5) Mg/3 Ml) 3 Ml Ampul.neb, 3 ML NEB RTQID for copd for 30 Days, #120 Prescribed by: PABLO SHERMAN MD on 08/29/18 1346 Last Taken: Unknown Dose on 06/16/21 1300 Last Action: Continued on 06/17/211444 by PAWEL GARCÍA MD Lactobacillus Rhamnosus Gg (Culturelle) 1 Each Cap.sprink, 1 CAP PO BID for SUPPLEMENT for 30 Days, #60 Prescribed by: PABLO SHERMAN MD on 09/13/191318 Last Action: Reviewed on 06/16/211842 by BETHANY COVINGTON Levothyroxine Sodium (Levothyroxine Sodium) 100 Mcg Tablet, 300 MCG PO DAILYAC for THYROID SUPPLEMENT, #30 Ref 0 (Reported) Entered as Reported by: BETHANY COVINGTON on 06/16/211842 Last Action: Continued on 06/17/211444 by PAWEL GARCÍA MD Mupirocin Calcium (Mupirocin Cream) 15 Gm Cream..g., 1 NENA TP BID for BURN for 10 Days, #20 Prescribed by: PABLO SHERMAN MD on 09/13/191318 Last Action: Reviewed on 06/16/211842 by BETHANY COVINGTON Nubieber-3 Fatty Acids/Fish Oil (Nubieber 3 Fish Oil Softgel) 1 Each Capsule.dr, 1 EACH PO DAILY for supplement, (Reported) Entered as Reported by: KWABENA RODRIGUEZ on 11/07/18 0315 Last Action: Reviewed on 06/16/211842 by BETHANY COVIGNTON Potassium Chloride (Klor-Con 10) 10 Meq Tablet.er, 2 TAB PO DAILY for Diuretic Use for 30 Days, #60 Ref 0 Prescribed by: JOSE TRAVIS MD on 07/25/20 1259 Last Action: Reviewed on 06/16/211842 by BETHANY COVINGTON Scheduled PRN Docusate Sodium (Dok) 100 Mg Capsule, 100 MG PO PRN BID PRN for CONSTIPATION for 28 Days, #30 Prescribed by: PABLO SHERMAN MD on 11/26/19 1605 Last Action: Continued on 06/17/211444 by PAWEL GARCÍA MD Hydrocodone Bit/Acetaminophen (Hydrocodone-Apap 5-325 ) 1 Tab Tablet, 1 TAB PO PRN Q4HRS PRN for PAIN, #30 Prescribed by: CORNELIO OATES on 04/23/21 1008 Last Action: Continued on 06/17/211444 by PAWEL GARCÍA MD Justicifation of Admission Dx: Justifications for Admission: Justification of Admission Dx: N/A JOSE TRAVIS MD Jun 24, 2021 11:46
[2021-06-24 11:50] LABS: HEMOGLOBIN 7.1 g/dL (13.0-17.5); RED BLOOD COUNT 2.39 x10^6/uL (4.30-5.70); RED CELL DISTRIBUTION WIDTH 19.9 % (11.5-14.5); WHITE BLOOD COUNT 8.7 x10^3/uL (4.0-11.0)
--- NOTE | 2021-06-24 14:11 | PDOC ---
DATE OF SERVICE DATE: 06/24/21 TIME: 14:09 SUBJECTIVE ROS No complaints OBJECTIVE Vital Signs Vital Signs Date Time Temp Pulse Resp B/P (MAP) Pulse Ox O2 Delivery O2 Flow Rate FiO2 06/24/21 13:25 95 Nasal Cannula 4.0 06/24/21 11:19 14 06/24/21 07:00 98.0 76 162/53 (89) 98.0 I & 0 Intake and Output 06/24/21 07:00 Intake Total 480 ml Output Total 0 ml Balance 480 ml Intake Oral 480 ml Output Urine Total 0 ml # Bowel Movements 1 PHYSICAL EXAM Physical Exam GENERAL: NAD HEENT: OM moist , On Chronic home O2 NECK: Supple. LUNGS: Decreased breath sounds at the bases, non labored HEART: S1, S2. ABDOMEN: Soft, nontender. EXTREMITIES: AVG Rt ; Rt BKA recent SKIN : No generalized rash, no enriquez DIAG DIAGNOSIS/ASSESSMENT Assessment & Plan ESRD - On HD MWF @ [facility] under Dr. Scanlon . Seen during treatment , tolerating well. Continue as ordered. Fede Gordillo Access - Rt arm AVF -- Swelling in Rt arm since recent fall - was scheduled for Fistulogram as OP RT arm US Diffuse atherosclerotic vascular disease. Areas of increased velocity within the right brachial artery. A significant stenosis not excluded. . Possible area of stenosis involving the junction of the right cephalic and subclavian venous stent. Possible significant stenosis at the arteriovenous anastomosis. Consider right upper extremity fistulogram for further characterization as clinically indicated. S/P Fistulogram 06/23- Moderate stenoses at the junction of the previously stented cephalic vein and subclavian vein, as well as the subclavian vein in the right innominate vein treated with balloon angioplasty with improvement morphology and flow. HyperKalemia- K normal Anemia Hgb 5.8 on 06/22 s/p PRBC Recd Epogen on 06/18 Right heel wound, status post incision and drainage- s/p Irrigation debridement of right heel ulcer skin subcutaneous tissue and removal of right great toenail. S/P right below-knee amputation and left heel and great toe debridement on 06/19 Recent history Acute Lt Femoral neck displaced fracture s/p Lt Hip Repair COPD with home O2 dependency history of poorly controlled diabetes Hypertension BP stable Anemia- Hgb Low, Monitor, On FABIAN COMMENT/RELEVANT DATA Meds Current Medications Medications (Trade) Dose Ordered Sig/Celi Start Time Stop Time Status Last Admin Dose Admin Acetaminophen/ Hydrocodone Bitart (Lortab 5/325) 1 tab PRN Q4HRS PRN 06/17/21 14:45 06/24/21 11:19 1 TAB Albumin Human 200 ml @ 200 mls/hr 1X PRN PRN 06/24/21 09:00 06/24/21 14:59 Albuterol/ Ipratropium (Duoneb) 3 ml RTQID 06/17/21 16:00 06/24/21 07:33 3 ML Ascorbic Acid (Vitamin C) 500 mg DAILY 06/18/21 09:00 06/24/21 08:23 500 MG Aspirin (Aspirin Chewable) 81 mg DAILYWBKFT 06/18/21 08:00 06/24/21 08:24 81 MG Atorvastatin Calcium (Lipitor) 10 mg HS 06/17/21 21:00 06/23/21 20:18 10 MG Budesonide (Pulmicort) 0.5 mg PRN BID PRN 06/17/21 14:45 06/21/21 11:47 0.5 MG Calcium Acetate (Phoslo) 667 mg TIDWMEALS 06/17/21 17:00 06/24/21 13:25 667 MG Ceftriaxone Sodium (Rocephin) 1 gm Q24H 06/16/21 17:00 06/17/21 10:23 DC 06/16/21 21:32 1 GM Dexamethasone Sodium Phosphate (Decadron) 4 mg STK-MED ONCE 06/19/21 11:59 06/19/21 12:00 DC Dextrose (Dextrose 50%-Water Syringe) 50 gm STK-MED ONCE 06/19/21 10:00 06/22/21 12:55 DC Dextrose/Sodium Chloride 1,000 ml @ 75 mls/hr [id number] 06/16/21 21:30 06/23/21 18:01 DC 06/23/21 05:36 75 MLS/HR Diphenhydramine HCl (Benadryl) 25 mg 1X PRN PRN 06/22/21 08:45 06/23/21 08:44 DC Docusate Sodium (Colace) 100 mg PRN BID PRN 06/17/21 14:45 Ephedrine Sulfate (ePHEDrine PF IN SALINE SYRINGE) 50 mg STK-MED ONCE 06/19/21 14:25 06/19/21 14:25 DC Epoetin Luís-epbx (RETACRIT for ESRD PTS) 20,000 unit 1X ONCE 06/18/21 11:00 06/18/21 11:01 DC 06/18/21 12:02 20,000 UNIT Fentanyl Citrate (Fentanyl 2ml Vial) 100 mcg 1X ONCE 06/23/21 09:15 06/23/21 09:16 DC 06/23/21 09:25 50 MCG Heparin Sodium (Porcine) (Heparin Sodium) 4,000 unit 1X ONCE 06/23/21 09:15 06/23/21 09:16 DC 06/23/21 09:26 4,000 UNIT Heparin Sodium/ Sodium Chloride (HEPARIN for ARTERIAL LINE FLUSH) 1,000 unit 1X ONCE 06/23/21 09:15 06/23/21 09:16 DC 06/23/21 09:24 1,000 UNIT Hydromorphone HCl (Dilaudid) 0.5 mg PRN Q10MIN PRN 06/19/21 12:30 06/19/21 20:00 DC Info (PHARMACY MONITORING -- do not chart) 1 each PRN DAILY PRN 06/24/21 11:30 UNV Insulin Glargine (Lantus Syringe) 10 unit QHS 06/17/21 21:00 06/20/21 08:59 DC 06/19/21 22:11 10 UNIT Insulin Human Lispro (HumaLOG VIAL for OP,RR ONLY) 0-10 units PRN Q1HR PRN 06/16/21 14:45 06/16/21 21:00 DC 06/16/21 16:00 2 UNIT Insulin Human Lispro (HumaLOG) 0-5 UNITS TIDWMEALS 06/20/21 12:00 06/23/21 17:55 2 UNITS Iodixanol (Visipaque 320) 100 ml 1X ONCE 06/23/21 09:15 06/23/21 09:16 DC 06/23/21 09:24 27 ML Lactobacillus Rhamnosus (Culturelle) 1 cap BID 06/17/21 21:00 06/24/21 08:23 1 CAP Levothyroxine Sodium (Synthroid) 300 mcg DAILYAC 06/18/21 07:30 06/24/21 08:24 300 MCG Lidocaine HCl (Buffered Lidocaine 1%) 3 ml 1X ONCE 06/23/21 09:15 06/23/21 09:16 DC 06/23/21 09:24 2 ML Lidocaine HCl (Lidocaine Pf 2% Vial) 5 ml STK-MED ONCE 06/19/21 11:59 06/19/21 12:00 DC Magnesium Sulfate 50 ml @ 25 mls/hr PRN DAILY PRN 06/21/21 10:30 Midazolam HCl (Versed) 2 mg 1X ONCE 06/23/21 09:15 06/23/21 09:16 DC 06/23/21 09:25 1 MG Morphine Sulfate (Morphine Sulfate) 1 mg PRN Q10MIN PRN 06/19/21 12:30 06/19/21 20:00 DC Ondansetron HCl (Zofran) 4 mg STK-MED ONCE 06/19/21 11:59 06/19/21 12:00 DC Phenylephrine HCl (PHENYLEPHRINE in 0.9% NACL PF) 1 mg STK-MED ONCE 06/16/21 15:04 06/16/21 15:05 DC Piperacillin Sod/ Tazobactam Sod 2.25 gm/Sodium Chloride 50 ml @ 100 mls/hr Q8HRS 06/17/21 12:00 06/23/21 11:10 DC 06/23/21 05:36 100 MLS/HR Prochlorperazine Edisylate (Compazine) 5 mg PACU PRN PRN 06/19/21 12:30 06/19/21 20:00 DC Propofol (Diprivan) 200 mg STK-MED ONCE 06/19/21 11:59 06/19/21 12:00 DC Ringer's Solution 1,000 ml @ 30 mls/hr Q24H 06/19/21 12:30 06/20/21 00:29 DC Sevoflurane (Ultane) 60 ml STK-MED ONCE 06/19/21 14:25 06/19/21 14:25 DC Sodium Chloride 1,000 ml @ 400 mls/hr Q2H30M PRN 06/24/21 09:00 06/24/21 20:59 Vancomycin HCl (Vanco Per Pharmacy) 1 each PRN DAILY PRN 06/17/21 10:30 06/23/21 11:12 DC 06/22/21 12:36 1 EACH Vancomycin HCl (Vancomycin Random Level) 1 each 1X ONCE 06/19/21 06:00 06/19/21 06:01 DC 06/19/21 07:35 1 EACH Vancomycin HCl 1.75 gm/Sodium Chloride 500 ml @ 250 mls/hr 1X ONCE 06/17/21 12:00 06/17/21 13:59 DC 06/17/21 14:10 250 MLS/HR Vancomycin HCl 500 mg/Sodium Chloride 100 ml @ 100 mls/hr QMWF 06/19/21 16:00 06/23/21 11:10 DC 06/22/21 16:08 100 MLS/HR Vitamin B Complex/ Vitamin C (Madai-Sean) 1 tab DAILY 06/18/21 09:00 06/24/21 08:23 1 TAB Lab Laboratory Tests Test 06/23/21 17:30 06/23/21 20:55 06/24/21 08:00 06/24/21 08:35 Glucose (Fingerstick) 187 mg/dL (70-99) 150 mg/dL (70-99) 116 mg/dL (70-99) Sodium Level 141 mmol/L (136-145) Potassium Level 5.0 mmol/L (3.5-5.1) Chloride Level 106 mmol/L (98-107) Carbon Dioxide Level 26 mmol/L (21-32) Anion Gap 9 (6-14) Blood Urea Nitrogen 25 mg/dL (8-26) Creatinine 4.4 mg/dL (0.7-1.3) Estimated GFR (Cockcroft-Gault) 13.8 Glucose Level 80 mg/dL (70-99) Calcium Level 8.0 mg/dL (8.5-10.1) Phosphorus Level 5.5 mg/dL (2.6-4.7) Magnesium Level 2.1 mg/dL (1.8-2.4) Albumin 1.5 g/dL (3.4-5.0) Test 06/24/21 09:50 06/24/21 12:02 White Blood Count 8.7 x10^3/uL (4.0-11.0) Red Blood Count 2.39 x10^6/uL (4.30-5.70) Hemoglobin 7.1 g/dL (13.0-17.5) Hematocrit 22.0 % (39.0-53.0) Mean Corpuscular Volume 92 fL (79-100) Mean Corpuscular Hemoglobin 30 pg (25-35) Mean Corpuscular Hemoglobin Concent 32 g/dL (31-37) Red Cell Distribution Width 19.9 % (11.5-14.5) Platelet Count 239 x10^3/uL (140-400) Glucose (Fingerstick) 95 mg/dL (70-99) Results All relevant outside records, renal labs, imaging studies, telemetry/EKG's were reviewed. Justicifation of Admission Dx: Justifications for Admission: Justification of Admission Dx: N/A REBECCA ANGLIN MD Jun 24, 2021 14:11
[2021-06-24 15:00] VITALS: BP 158/76
--- NOTE | 2021-06-24 15:06 | SNU/HH DC ---
DISCHARGE ORDERS DISCHARGE INFORMATION: DISCHARGE DATE: Jun 24, 2021 CONDITION ON DISCHARGE: Stable CODE STATUS: Code Status: Full MCC: SNF STAY <30 DAYS: Yes POST DISCHARGE ORDERS: ACTIVITY ORDERS: Activity as tolerated WEIGHT BEARING STATUS: No restrictions, As tolerated BATHING ORDERS: Shower-keep dressing dry, No Tub Bath until see DIET AFTER DISCHARGE: Renal WOUND/INCISION CARE: Ice to area for comfort CHECKS AFTER DISCHARGE: CHECKS AFTER DISCHARGE: Check blood press - daily, Check blood sugar, ac/hs, Check your Temp as needed, Weigh Yourself Daily COMMENTS: upper arm TREATMENT/EQUIPMENT ORDERS: ADAPTIVE EQUIPMENT NEEDED: Walker RESPIRATORY EQUIPMENT NEEDED: Oxygen, Nebulizer Physical Therapy For: Evalulation/Treatment Occupational Therapy For: Evaluation/Treatment Speech Language Pathology For: Evaluation/Treatment DISCHARGE MEDICATIONS: Home Meds Active Scripts Hydrocodone Bit/Acetaminophen (HYDROCODONE-APAP 5-325 ) 1 Tab Tablet, 1 TAB PO PRN Q4HRS PRN for PAIN, #30 TAB Prov:CORNELIO OATES MD 04/23/21 Insulin Lispro (Admelog) 100 Unit/1 Ml Vial, 0 UNITS SQ TIDWMEALS for diabetes for 30 Days, #2 EACH Prov:PABLO SHERMAN MD 07/31/20 Potassium Chloride (Klor-Con 10) 10 Meq Tablet.er, 2 TAB PO DAILY for Diuretic Use for 30 Days, #60 TAB 0 Refills Prov:JOSE TRAVIS MD 07/25/20 Ascorbic Acid (VITAMIN C) 500 Mg Tablet, 500 MG PO DAILY for SUPPLEMENT for 30 Days, #30 TAB Prov:PABLO SHERMAN MD 11/26/19 Folic Acid/Vitamin B Comp W-C (DORIE-CONSTANCE TABLET) 0.8 Mg Tablet, 1 TAB PO DAILY for SUPPLEMENT for 30 Days, #30 TAB Prov:PABLO SHERMAN MD 11/26/19 Docusate Sodium (DOK) 100 Mg Capsule, 100 MG PO PRN BID PRN for CONSTIPATION for 28 Days, #30 CAP Prov:PABLO SHERMAN MD 11/26/19 Mupirocin Calcium (MUPIROCIN CREAM) 15 Gm Cream..g., 1 NENA TP BID for BURN for 10 Days, #20 EACH Prov:PABLO SHERMAN MD 09/13/19 Lactobacillus Rhamnosus Gg (CULTURELLE) 1 Each Cap.sprink, 1 CAP PO BID for SUPPLEMENT for 30 Days, #60 CAP Prov:PABLO SHERMAN MD 09/13/19 Budesonide (BUDESONIDE) 0.5 Mg/2 Ml Ampul.neb, 0.5 MG NEB RTBID for copd for 30 Days, #60 EACH Prov:PABLO SHERMAN MD 08/29/18 Aspirin (ASPIRIN) 81 Mg Tab.chew, 81 MG PO DAILYWBKFT for heart health for 30 Days, #30 TAB.CHEW Prov:PABLO SHERMAN MD 08/29/18 Ipratropium/Albuterol Sulfate (DUONEB 0.5-3(2.5) MG/3 ML) 3 Ml Ampul.neb, 3 ML NEB RTQID for copd for 30 Days, #120 EACH Prov:PABLO SHERMAN MD 08/29/18 Reported Medications Levothyroxine Sodium (LEVOTHYROXINE SODIUM) 100 Mcg Tablet, 300 MCG PO DAILYAC for THYROID SUPPLEMENT, #30 TAB 0 Refills 06/16/21 Insulin Glargine,Hum.rec.anlog (LANTUS SOLOSTAR) 100 Unit/1 Ml Insuln.pen, 10 UNIT SQ QHS for hyperglycemia, #15 ML 3 Refills 06/16/21 Atorvastatin Calcium (ATORVASTATIN CALCIUM) 10 Mg Tablet, 10 MG PO HS for FOR CHOLESTEROL, #30 TAB 0 Refills 05/29/21 Furosemide (FUROSEMIDE) 80 Mg Tablet, 80 MG PO BID for diuretic, CHF, TAB 02/18/19 Reagan-3 Fatty Acids/Fish Oil (OMEGA 3 FISH OIL SOFTGEL) 1 Each Capsule., 1 EACH PO DAILY for supplement, CAP 11/07/18 Calcium Acetate (CALCIUM ACETATE) 667 Mg Tablet, 667 MG PO TIDWMEALS for DIALYSIS PATIENTS, CAP 11/07/18 Acetaminophen (TYLENOL) 325 Mg Tablet, 650 MG PO PRN Q6HRS for mild pain, TAB 10/02/18 Ferrous Sulfate (FERROUS SULFATE) 325 Mg Tablet, 1 TAB PO DAILY for Dialysis, #30 TAB 3 Refills 09/15/18 JOSE TRAVIS MD Jun 24, 2021 15:06
[2021-06-24] MEDS ORDERED: HYDR-2765 PO (15:13)
--- NOTE | 2021-06-24 17:34 | NUR ---
Discharge Note: SEBASTIAN ANGULO Discharge instructions and discharge home medications reviewed with Other facility and a copy given. All questions have been answered and understanding verbalized. The following instructions and handouts were given: discharge instructions, education and follow up included in patient packet to [facility]. Discontinued lines and drains: Peripheral IV intact. [facility] via [facility]
== END 2021-06-24 16:56 | DRG 239 ==
LOC: OPSVCIP 13:54 → 5 NORTH 18:12
PROVIDERS: ADMIT Internal Medicine; ATTEND Internal Medicine
PROC: 0JBQ0ZZ Excision of Right Foot Subcutaneous Tissue and Fascia, Open Approach (ICD-10-PCS; 2021-06-16)
PROC: 5A1D70Z Performance of Urinary Filtration, Intermittent, Less than 6 Hours Per Day (ICD-10-PCS; 2021-06-19)
PROC: B31H1ZZ Fluoroscopy of Right Upper Extremity Arteries using Low Osmolar Contrast (ICD-10-PCS; 2021-06-19)
PROC: 0Y6H0Z3 Detachment at Right Lower Leg, Low, Open Approach (ICD-10-PCS; 2021-06-19)
PROC: 0JBR0ZZ Excision of Left Foot Subcutaneous Tissue and Fascia, Open Approach (ICD-10-PCS; 2021-06-19)
PROC: 30233N1 Transfusion of Nonautologous Red Blood Cells into Peripheral Vein, Percutaneous Approach (ICD-10-PCS; principal; 2021-06-19 11:30)
PROC: 5A1D70Z Performance of Urinary Filtration, Intermittent, Less than 6 Hours Per Day (ICD-10-PCS; 2021-06-22)
PROC: 5A1D70Z Performance of Urinary Filtration, Intermittent, Less than 6 Hours Per Day (ICD-10-PCS; 2021-06-22)
PROC: 05753ZZ Dilation of Right Subclavian Vein, Percutaneous Approach (ICD-10-PCS; 2021-06-23)
PROC: 05733ZZ Dilation of Right Innominate Vein, Percutaneous Approach (ICD-10-PCS; 2021-06-23)
PROC: 5A1D70Z Performance of Urinary Filtration, Intermittent, Less than 6 Hours Per Day (ICD-10-PCS; 2021-06-24)
PROC: 5A1D70Z Performance of Urinary Filtration, Intermittent, Less than 6 Hours Per Day (ICD-10-PCS; 2021-06-24)
DX: E11.52 Type 2 diabetes mellitus with diabetic peripheral angiopathy with gangrene (principal); E43 Unspecified severe protein-calorie malnutrition; N18.6 End stage renal disease; I70.262 Atherosclerosis of native arteries of extremities with gangrene, left leg; I42.9 Cardiomyopathy, unspecified; J96.10 Chronic respiratory failure, unspecified whether with hypoxia or hypercapnia; L97.419 Non-pressure chronic ulcer of right heel and midfoot with unspecified severity; L97.429 Non-pressure chronic ulcer of left heel and midfoot with unspecified severity; I13.2 Hypertensive heart and chronic kidney disease with heart failure and with stage 5 chronic kidney disease, or end stage renal disease; E11.621 Type 2 diabetes mellitus with foot ulcer; D63.1 Anemia in chronic kidney disease; E03.9 Hypothyroidism, unspecified; E11.22 Type 2 diabetes mellitus with diabetic chronic kidney disease; E11.649 Type 2 diabetes mellitus with hypoglycemia without coma; E11.65 Type 2 diabetes mellitus with hyperglycemia; E78.5 Hyperlipidemia, unspecified; E87.5 Hyperkalemia; I25.10 Atherosclerotic heart disease of native coronary artery without angina pectoris; I50.9 Heart failure, unspecified; J44.9 Chronic obstructive pulmonary disease, unspecified; L97.519 Non-pressure chronic ulcer of other part of right foot with unspecified severity; R29.6 Repeated falls; Z74.01 Bed confinement status; Z79.4 Long term (current) use of insulin; Z79.51 Long term (current) use of inhaled steroids; Z82.49 Family history of ischemic heart disease and other diseases of the circulatory system; Z83.3 Family history of diabetes mellitus; Z86.74 Personal history of sudden cardiac arrest; Z87.891 Personal history of nicotine dependence; Z89.511 Acquired absence of right leg below knee; Z96.642 Presence of left artificial hip joint; Z99.2 Dependence on renal dialysis; Z99.81 Dependence on supplemental oxygen; E21.3 Hyperparathyroidism, unspecified; F32.9 Major depressive disorder, single episode, unspecified; K21.9 Gastro-esophageal reflux disease without esophagitis; Z68.23 Body mass index [BMI] 23.0-23.9, adult; Z20.822 Contact with and (suspected) exposure to COVID-19
CPT/HCPCS: 36415; 36430; 36902; 36907; 73620; 73630; 76937; 80048; 80053; 80069; 80202; 82962; 83735; 85014; 85018; 85025; 85027; 85651; 86140; 86850; 86900; 86901; 86920; 87426; 88307; 88311; 93925; 93931; 93971; 94640; 94760; 99152; 99153; A4222; A4930; A6402; A6443; A6449; C1892; C1894; J0696; J1100; J1170; J1644; J1815; J2250; J2270; J2370; J2405; J2543; J2704; J3010; J3370; J3490; J7030; J7040; J7042; P9016; P9045; Q9967; U0003; U0005; 97110-GP; 97530-GP; 97535-GO; G0378; J7626

== ENCOUNTER 2021-07-09 12:25 | Inpatient (IN) | payer MEDICARE ==
[~2021-07-09] VITALS: Ht 172.7 cm; Wt 64.9 kg
[~2021-07-09 12:25] MED LIST changes: +HYDR-2765 PO; +LEVO100T5 PO
[2021-07-09] MEDS ORDERED: DEXTROSE 50% 25 GM / 50ML DISP.SYRIN. IV ONE ×2 (12:31→14:00)
--- NOTE | 2021-07-09 12:37 | ED.ADGEN ---
Past Medical History Past Medical History: COPD, Diabetes-Type II, High Cholesterol, Hypertension, Hypothyroid, Renal Failure Additional Past Medical Histor: CARDIAC ARREST DURING DIALYSIS 09/12 Past Surgical History: Other Additional Past Surgical Histo: DIALYSIS FISTULA RT ARM, CARDIAC STENT Smoking Status: Current Every Day Smoker Alcohol Use: None Drug Use: None General Adult EDM: Chief Complaint: HYPOGLYCEMIA HPI: HPI: Patient is a 61-year-old male who arrives via EMS after experiencing a decreased level of consciousness for an unknown duration of time. The patient was last seen normal at 830 this morning and was reported as appearing fatigued. Upon chemical applicator arrival, it was quickly ascertained the patient had a blood sugar of 21 and the patient was given glucagon. Paramedics provided little history in way other than it had been reported to them the patient had not been eating for the past several days however no other history is available. The patient is a diabetic and has insulin regularly scheduled. Additionally the patient is a dialysis patient as he is end-stage renal disease. Upon arrival the patient is gravely ill and while his eyes are open and he is maintaining his airway he is unresponsive to any verbal or physical prompting. Review of Systems: Review of Systems: Unavailable due to patient condition Current Medications: Current Medications Medications (Trade) Dose Ordered Sig/Celi Start Time Stop Time Status Last Admin Dose Admin Dextrose (Dextrose 50%-Water Syringe) 25 gm STK-MED ONCE 07/09/21 12:31 07/09/21 12:31 DC Allergies: Allergies: Allergies Coded Allergies Type Severity Reaction Last Updated Verified No Known Drug Allergies 06/16/21 No Physical Exam: PE: Constitutional: Patient is debilitated and frail in his appearance. He appears older than his reported age. [] HENT: The patient appears to have dry mucous membranes. Normocephalic, atraumatic, bilateral external ears normal, no oral exudates, nose normal. [] Eyes: PERRLA, EOMI, conjunctiva normal, no discharge. [] Neck: Normal range of motion, no tenderness, supple, no stridor. [] Cardiovascular: Bradycardia. No murmur [] Lungs & Thorax: Bilateral breath sounds clear to auscultation [] Abdomen: Bowel sounds normal, soft, no tenderness, no masses, no pulsatile masses. [] Skin: Patient has pale skin with poor skin turgor. Warm, dry, no erythema, no rash. [] Back: No tenderness, no CVA tenderness. [] Extremities: Patient has amputation above the right knee. Additionally there is a fistula present in the right upper extremity. No tenderness, no cyanosis, no clubbing, ROM intact, no edema. [] Neurologic: Patient has an altered level of consciousness. He is awake however he does not cooperate with the facets of a neurological exam let alone does he answer questions appropriately. [] Psychologic: Unable to assess at this time. [] Current Patient Data: Labs: Laboratory Tests Test 07/09/21 12:35 07/09/21 12:47 White Blood Count 10.7 x10^3/uL (4.0-11.0) Red Blood Count 2.89 x10^6/uL (4.30-5.70) L Hemoglobin 8.9 g/dL (13.0-17.5) L Hematocrit 26.6 % (39.0-53.0) L Mean Corpuscular Volume 92 fL (79-100) Mean Corpuscular Hemoglobin 31 pg (25-35) Mean Corpuscular Hemoglobin Concent 34 g/dL (31-37) Red Cell Distribution Width 21.6 % (11.5-14.5) H Platelet Count 165 x10^3/uL (140-400) Neutrophils (%) (Auto) 72 % (31-73) Lymphocytes (%) (Auto) 15 % (24-48) L Monocytes (%) (Auto) 7 % (0-9) Eosinophils (%) (Auto) 3 % (0-3) Basophils (%) (Auto) 2 % (0-3) Neutrophils # (Auto) 7.7 x10^3/uL (1.8-7.7) Lymphocytes # (Auto) 1.6 x10^3/uL (1.0-4.8) Monocytes # (Auto) 0.7 x10^3/uL (0.0-1.1) Eosinophils # (Auto) 0.4 x10^3/uL (0.0-0.7) Basophils # (Auto) 0.2 x10^3/uL (0.0-0.2) Sodium Level 139 mmol/L (136-145) Potassium Level 3.2 mmol/L (3.5-5.1) L Chloride Level 102 mmol/L (98-107) Carbon Dioxide Level 30 mmol/L (21-32) Anion Gap 7 (6-14) Blood Urea Nitrogen 15 mg/dL (8-26) Creatinine 2.7 mg/dL (0.7-1.3) H Estimated GFR (Cockcroft-Gault) 24.3 BUN/Creatinine Ratio 6 (6-20) Glucose Level 115 mg/dL (70-99) H Calcium Level 8.2 mg/dL (8.5-10.1) L Magnesium Level 1.9 mg/dL (1.8-2.4) Total Bilirubin 0.4 mg/dL (0.2-1.0) Aspartate Amino Transferase (AST) 31 U/L (15-37) Alanine Aminotransferase (ALT) 27 U/L (16-63) Alkaline Phosphatase 203 U/L (46-116) H Creatine Kinase 27 U/L (39-308) L Creatine Kinase MB (Mass) 3.7 ng/mL (0.0-3.6) H Creatine Kinase MB Relative Index % (0-4) Troponin I Quantitative < 0.017 ng/mL (0.000-0.055) NV-Zbg-O-Type Natriuretic Peptide > 79418 pg/mL (0-124) H Total Protein 5.9 g/dL (6.4-8.2) L Albumin 2.0 g/dL (3.4-5.0) L Albumin/Globulin Ratio 0.5 (1.0-1.7) L Glucose (Fingerstick) 83 mg/dL (70-99) Laboratory Tests 07/09/21 12:35 Laboratory Tests 07/09/21 12:35 Vital Signs: Vital Signs Date Time Temp Pulse Resp B/P (MAP) Pulse Ox O2 Delivery O2 Flow Rate FiO2 07/09/21 13:18 53 15 154/71 (98) 100 Nasal Cannula 07/09/21 12:32 4.0 EKG: EKG: [] EKG was obtained at 1226 p.m. and revealed a sinus bradycardia with a ventricular rate of 57 bpm. There is left axis deviation present in addition to a left anterior fascicular block with a right bundle branch block present. There are no acute ST/T wave changes to denote ischemia otherwise. Heart Score: C/O Chest Pain: N/A HEART Score for Chest Pain: HEART Score for Chest Pain Response (Comments) Value History Highly Suspicious 2 ECG Nonspecific Repolarizatio 1 Age >45 - < 65 1 Risk Factors >3 Risk Factors or Hx CAD 2 Total 6 Risk Factors: Risk Factors: DM, Current or recent (<one month) smoker, HTN, HLP, family history of CAD, obesity. Risk Scores: Score 0 - 3: 2.5% MACE over next 6 weeks - Discharge Home Score 4 - 6: 20.3% MACE over next 6 weeks - Admit for Clinical Observation Score 7 - 10: 72.7% MACE over next 6 weeks - Early Invasive Strategies Radiology/Procedures: Radiology/Procedures: [] Impression: [id number] [place], [place] [id number] IMAGING REPORT Signed PATIENT: SEBASTIAN ANGULO ACCOUNT: [id number] : 1960 LOCATION: ER AGE: 61 SEX: M EXAM STATUS: PRE ER ORD. PHYSICIAN: JOSE CHADWICK DO REASON: Altered mental status PROCEDURE: PORTABLE CHEST 1V EXAM: CHEST ONE VIEW. HISTORY: Altered mental status. COMPARISON: 05/29/2021. FINDINGS: A frontal view of the chest is obtained. Scarring or atelectasis laterally in the left hemithorax is stable. Groundglass infiltrates are mildly increased in the right upper lobe and improved in the bases. There are small bilateral pleural effusions. There is no pneumothorax. The heart is mildly enlarged. There are atherosclerotic calcifications of the aorta. Vascular stents are noted in the right axilla and right brachiocephalic vein. A coronary stent is also noted. IMPRESSION: 1. Interstitial infiltrates are improved in the bases and mildly increased in the right apex. 2. Small bilateral pleural effusions. Moderate cardiomegaly. Electronically signed by: Fanny Rainey MD (07/09/2021 12:53 PM) [id number] DICTATED and SIGNED BY: CHRISTY RAINEY MD DATE: 07/09/21 [id number] 0 Course & Med Decision Making: Course & Med Decision Making Pertinent Labs and Imaging studies reviewed. (See chart for details) [] Dragon Disclaimer: Dragon Disclaimer: This electronic medical record was generated, in whole or in part, using a voice recognition dictation system. Departure Departure Impression: Primary Impression: Hypoglycemia Additional Impressions: ESRD on dialysis Anemia of renal disease Altered mental state Hypokalemia Disposition: ADMITTED INPATIENT Admitting Physician: AYDEN Condition: IMPROVED Referrals: SOLO NUNO MD (PCP) Problem Qualifiers JOSE CHADWICK DO Jul 09, 2021 12:37
[2021-07-09 12:50] LABS: BASO # 0.2 x10^3/uL (0.0-0.2); BASO % 2 % (0-3); EOS # 0.4 x10^3/uL (0.0-0.7); EOS % 3 % (0-3); HEMATOCRIT 26.6 % (39.0-53.0); HEMOGLOBIN 8.9 g/dL (13.0-17.5); LYMPH # 1.6 x10^3/uL (1.0-4.8); LYMPH % 15 % (24-48); MEAN CORPUSCULAR HEMOGLOBIN 31 pg (25-35); MEAN CORPUSCULAR HGB CONC 34 g/dL (31-37); MEAN CORPUSCULAR VOLUME 92 fL (79-100); MONO # 0.7 x10^3/uL (0.0-1.1); MONO % 7 % (0-9); NEUT # 7.7 x10^3/uL (1.8-7.7); NEUT % 72 % (31-73); PLATELET COUNT 165 x10^3/uL (140-400); RED BLOOD COUNT 2.89 x10^6/uL (4.30-5.70); RED CELL DISTRIBUTION WIDTH 21.6 % (11.5-14.5); WHITE BLOOD COUNT 10.7 x10^3/uL (4.0-11.0)
--- NOTE | 2021-07-09 12:55 | RAD ---
EXAM: CHEST ONE VIEW. HISTORY: Altered mental status. COMPARISON: 05/29/2021. FINDINGS: A frontal view of the chest is obtained. Scarring or atelectasis laterally in the left hemithorax is stable. Groundglass infiltrates are mildl y increased in the right upper lobe and improved in the bases. There are small bilateral pleural effu sions. There is no pneumothorax. The heart is mildly enlarged. There are atherosclerotic calcificatio ns of the aorta. Vascular stents are noted in the right axilla and right brachiocephalic vein. A sheridan nary stent is also noted. IMPRESSION: 1. Interstitial infiltrates are improved in the bases and mildly increased in the right apex. 2. Small bilateral pleural effusions. Moderate cardiomegaly. Electronically signed by: Fanny Rainey MD (07/09/2021 12:53 PM) [id number]
[2021-07-09 13:14] LABS: CALCIUM 8.2 mg/dL (8.5-10.1); CREATININE 2.7 mg/dL (0.7-1.3); GFR 24.3; POTASSIUM 3.2 mmol/L (3.5-5.1)
[2021-07-09 13:27] LABS: ALBUMIN/GLOBULIN RATIO 0.5 (1.0-1.7); MAGNESIUM 1.9 mg/dL (1.8-2.4); TOTAL BILIRUBIN 0.4 mg/dL (0.2-1.0); TOTAL PROTEIN 5.9 g/dL (6.4-8.2)
[2021-07-09 13:35] LABS: CREATINE KINASE 27 U/L (39-308)
[2021-07-09] MEDS ORDERED: cefTRIAXone IV Push 1 GM VIAL. IVP ONE (14:45)
[2021-07-09] MEDS ORDERED: DOCUSATE SODIUM 100 MG CAPSULE. PO PRN (14:45)
[2021-07-09] MEDS ORDERED: IV DEXTROSE 10% 1,000 ML IV ONE (14:45)
[2021-07-09] MEDS ORDERED: IV DEXTROSE 5 %-0.45 % NACL 1,000 ML IV ONE (14:45)
[2021-07-09] MEDS ORDERED: HYDROCORTISONE SOD SUCC/PF 100 MG/2 ML VIAL. IVP ONE (14:45)
[2021-07-09] MEDS: DEXTROSE 50% 25 GM / 50ML DISP.SYRIN. IV PRN ×2 (15:06→17:40)
[2021-07-09] MEDS: IPRATRPIUM/ALBUTEROL 0.5/2.5MG 3 ML NEBU. NEB SCH ×2 (16:20→20:12)
[2021-07-09] MEDS: INSULIN LISPRO 300 UNITS/3 ML VIAL. SQ SCH ×2 (16:30→21:00)
[2021-07-09] MEDS: CALCIUM ACETATE 667 MG CAPSULE PO SCH (17:00)
--- NOTE | 2021-07-09 17:50 | PDOC1 ---
History and Physical Date of Admission Date of Admission DATE: 07/09/21 TIME: 17:49 Source Source: Caregiver, Chart review History of Present Illness History of Present Illness Mr. Ochoa is a 61-year-old male admti for confusion and weakness. He came via EMS for lethargy and confusion was last normal at 830 this morning and was reported as appearing fatigued. In field blood sugar of 21 and the patient was given glucagon. per report, he had not been eating for the past several days however no other history is available. Dm1 on insulin an dhas end-stage renal disease. Past Medical History Cardiovascular: CAD, HTN, Hyperlipidemia Pulmonary: Other GI: GERD Heme/Onc: Anemia NOS Psych: Depression Renal/: Chronic renal failure Endocrine: Diabetes, Hypothyroidism, Hyperparathyroidism Past Surgical History Past Surgical History: Other Family History Family History: Diabetes, Hypertension Social History Smoke: No ALCOHOL: none Drugs: None Current Problem List Problem List Problems Medical Problems: (1) Anemia of renal disease Status: Acute (2) ESRD on dialysis Status: Acute (3) Hypokalemia Status: Acute Current Medications Current Medications Current Medications Dextrose (Dextrose 50%-Water Syringe) 25 gm STK-MED ONCE IV ; Start 07/09/21 at 12:31; Stop 07/09/21 at 12:31; Status DC Dextrose (Dextrose 50%-Water Syringe) 25 gm 1X ONCE IV Last administered on 07/09/21at 13:55; Start 07/09/21 at 14:00; Stop 07/09/21 at 14:01; Status DC Dextrose/Sodium Chloride 1,000 ml @ 75 mls/hr 1X ONCE IV Last administered on 07/09/21at 14:45; Start 07/09/21 at 14:45; Stop 07/10/21 at 04:04 Acetaminophen (Tylenol) 650 mg PRN Q6HRS PRN PO MILD PAIN / TEMP > 100.3'F; Start 07/09/21 at 14:45 Ascorbic Acid (Vitamin C) 500 mg DAILY PO ; Start 07/10/21 at 09:00 Aspirin (Aspirin Chewable) 81 mg DAILYWBKFT PO ; Start 07/10/21 at 08:00 Atorvastatin Calcium (Lipitor) 10 mg HS PO ; Start 07/09/21 at 21:00 Budesonide (Pulmicort) 0.5 mg RTBID NEB ; Start 07/09/21 at 20:00 Docusate Sodium (Colace) 100 mg PRN BID PRN PO CONSTIPATION; Start 07/09/21 at 14:45 Ferrous Sulfate (Feosol) 325 mg DAILY PO ; Start 07/10/21 at 09:00 Vitamin B Complex/ Vitamin C (Madai-Sean) 1 tab DAILY PO ; Start 07/10/21 at 09:00 Albuterol/ Ipratropium (Duoneb) 3 ml RTQID NEB Last administered on 07/09/21at 16:20; Start 07/09/21 at 16:00 Lactobacillus Rhamnosus (Culturelle) 1 cap BID PO ; Start 07/09/21 at 21:00 Levothyroxine Sodium (Synthroid) 300 mcg DAILYAC PO ; Start 07/10/21 at 07:30 Calcium Acetate (Phoslo) 667 mg TIDWMEALS PO ; Start 07/09/21 at 17:00 Hydrocortisone Sodium Succinate (Solu-CORTEF) 100 mg 1X ONCE IVP Last adm inistered on 07/09/21at 16:00; Start 07/09/21 at 14:45; Stop 07/09/21 at 14:51; Status DC Insulin Human Lispro (HumaLOG) 0-5 UNITS QIDACHS SQ ; Start 07/09/21 at 16:30 Dextrose (Dextrose 50%-Water Syringe) 12.5 gm PRN Q15MIN PRN IV SEE COMMENTS Last administered on 07/09/21at 17:40; Start 07/09/21 at 14:45 Ceftriaxone Sodium (Rocephin) 1 gm 1X ONCE IVP Last administered on 07/09/21at 16:00; Start 07/09/21 at 14:45; Stop 07/09/21 at 14:51; Status DC Dextrose 1,000 ml @ 75 mls/hr 1X ONCE IV ; Start 07/09/21 at 14:45; Stop 07/10/21 at 04:04 Active Scripts Active Hydrocodone-Apap 7.5-325 (Hydrocodone Bit/Acetaminophen) 1 Tab Tablet 1 Tab PO PRN Q6HRS PRN Admelog (Insulin Lispro) 100 Unit/1 Ml Vial 0 Units SQ TIDWMEALS 30 Days Vitamin C (Ascorbic Acid) 500 Mg Tablet 500 Mg PO DAILY 30 Days Madai-Sean Tablet (Folic Acid/Vitamin B Comp W-C) 0.8 Mg Tablet 1 Tab PO DAILY 30 Days Dok (Docusate Sodium) 100 Mg Capsule 100 Mg PO PRN BID PRN 28 Days Culturelle (Lactobacillus Rhamnosus Gg) 1 Each Cap.sprink 1 Cap PO BID 30 Days Budesonide 0.5 Mg/2 Ml Ampul.neb 0.5 Mg NEB RTBID 30 Days Aspirin 81 Mg Tab.chew 81 Mg PO DAILYWBKFT 30 Days Duoneb 0.5-3(2.5) Mg/3 Ml (Albuterol/Ipratropium) 3 Ml Ampul.neb 3 Ml NEB RTQID 30 Days Reported Levothyroxine Sodium 100 Mcg Tablet 300 Mcg PO DAILYAC Lantus Solostar (Insulin Glargine,Hum.rec.anlog) 100 Unit/1 Ml Insuln.pen 10 Unit SQ QHS Atorvastatin Calcium 10 Mg Tablet 10 Mg PO HS Baldwin 3 Fish Oil Softgel (Baldwin-3 Fatty Acids/Fish Oil) 1 Each Capsule.dr 1 Each PO DAILY Calcium Acetate 667 Mg Tablet 667 Mg PO TIDWMEALS Tylenol (Acetaminophen) 325 Mg Tablet 650 Mg PO PRN Q6HRS Ferrous Sulfate 325 Mg Tablet 1 Tab PO DAILY Allergies Allergies: Coded Allergies: No Known Drug Allergies (Unverified , 06/16/21) Physical Exam General: moderate distress, Other (follows commands for a couple seconds, then doses off) HEENT: Atraumatic, Mucous membr. moist/pink (dry) Lungs: Normal air movement Heart: no murmurs, irregularly irregular Abdomen: Soft, No tenderness Rectal Exam: not examined, deferred Extremities: No clubbing, No cyanosis, No edema, Normal pulses Skin: No rashes Neuro: Normal tone, Other Psych/Mental Status: Other (obtunded) Vitals Vitals Vital Signs Date Time Temp Pulse Resp B/P (MAP) Pulse Ox O2 Delivery O2 Flow Rate FiO2 07/09/21 16:22 100 Nasal Cannula 4.0 07/09/21 16:17 53 15 162/89 (113) Labs Labs Laboratory Tests Test 07/09/21 12:27 07/09/21 12:35 07/09/21 12:47 07/09/21 13:45 Glucose (Fingerstick) 15 mg/dL (70-99) 83 mg/dL (70-99) 39 mg/dL (70-99) White Blood Count 10.7 x10^3/uL (4.0-11.0) Red Blood Count 2.89 x10^6/uL (4.30-5.70) Hemoglobin 8.9 g/dL (13.0-17.5) Hematocrit 26.6 % (39.0-53.0) Mean Corpuscular Volume 92 fL (79-100) Mean Corpuscular Hemoglobin 31 pg (25-35) Mean Corpuscular Hemoglobin Concent 34 g/dL (31-37) Red Cell Distribution Width 21.6 % (11.5-14.5) Platelet Count 165 x10^3/uL (140-400) Neutrophils (%) (Auto) 72 % (31-73) Lymphocytes (%) (Auto) 15 % (24-48) Monocytes (%) (Auto) 7 % (0-9) Eosinophils (%) (Auto) 3 % (0-3) Basophils (%) (Auto) 2 % (0-3) Neutrophils # (Auto) 7.7 x10^3/uL (1.8-7.7) Lymphocytes # (Auto) 1.6 x10^3/uL (1.0-4.8) Monocytes # (Auto) 0.7 x10^3/uL (0.0-1.1) Eosinophils # (Auto) 0.4 x10^3/uL (0.0-0.7) Basophils # (Auto) 0.2 x10^3/uL (0.0-0.2) Sodium Level 139 mmol/L (136-145) Potassium Level 3.2 mmol/L (3.5-5.1) Chloride Level 102 mmol/L (98-107) Carbon Dioxide Level 30 mmol/L (21-32) Anion Gap 7 (6-14) Blood Urea Nitrogen 15 mg/dL (8-26) Creatinine 2.7 mg/dL (0.7-1.3) Estimated GFR (Cockcroft-Gault) 24.3 BUN/Creatinine Ratio 6 (6-20) Glucose Level 115 mg/dL (70-99) Calcium Level 8.2 mg/dL (8.5-10.1) Magnesium Level 1.9 mg/dL (1.8-2.4) Total Bilirubin 0.4 mg/dL (0.2-1.0) Aspartate Amino Transf (AST/SGOT) 31 U/L (15-37) Alanine Aminotransferase (ALT/SGPT) 27 U/L (16-63) Alkaline Phosphatase 203 U/L (46-116) Creatine Kinase 27 U/L (39-308) Creatine Kinase MB (Mass) 3.7 ng/mL (0.0-3.6) Creatine Kinase MB Relative Index % (0-4) Troponin I Quantitative < 0.017 ng/mL (0.000-0.055) WM-Jad-A-Type Natriuretic Peptide > 22543 pg/mL (0-124) Total Protein 5.9 g/dL (6.4-8.2) Albumin 2.0 g/dL (3.4-5.0) Albumin/Globulin Ratio 0.5 (1.0-1.7) Test 07/09/21 14:42 07/09/21 15:50 07/09/21 16:01 07/09/21 17:25 Glucose (Fingerstick) 58 mg/dL (70-99) 70 mg/dL (70-99) 48 mg/dL (70-99) SARS-CoV-2 Antigen (Rapid) Negative (NEGATIVE) Laboratory Tests Test 07/09/21 12:27 07/09/21 12:35 07/09/21 12:47 07/09/21 13:45 Glucose (Fingerstick) 15 mg/dL (70-99) 83 mg/dL (70-99) 39 mg/dL (70-99) White Blood Count 10.7 x10^3/uL (4.0-11.0) Red Blood Count 2.89 x10^6/uL (4.30-5.70) Hemoglobin 8.9 g/dL (13.0-17.5) Hematocrit 26.6 % (39.0-53.0) Mean Corpuscular Volume 92 fL (79-100) Mean Corpuscular Hemoglobin 31 pg (25-35) Mean Corpuscular Hemoglobin Concent 34 g/dL (31-37) Red Cell Distribution Width 21.6 % (11.5-14.5) Platelet Count 165 x10^3/uL (140-400) Neutrophils (%) (Auto) 72 % (31-73) Lymphocytes (%) (Auto) 15 % (24-48) Monocytes (%) (Auto) 7 % (0-9) Eosinophils (%) (Auto) 3 % (0-3) Basophils (%) (Auto) 2 % (0-3) Neutrophils # (Auto) 7.7 x10^3/uL (1.8-7.7) Lymphocytes # (Auto) 1.6 x10^3/uL (1.0-4.8) Monocytes # (Auto) 0.7 x10^3/uL (0.0-1.1) Eosinophils # (Auto) 0.4 x10^3/uL (0.0-0.7) Basophils # (Auto) 0.2 x10^3/uL (0.0-0.2) Sodium Level 139 mmol/L (136-145) Potassium Level 3.2 mmol/L (3.5-5.1) Chloride Level 102 mmol/L (98-107) Carbon Dioxide Level 30 mmol/L (21-32) Anion Gap 7 (6-14) Blood Urea Nitrogen 15 mg/dL (8-26) Creatinine 2.7 mg/dL (0.7-1.3) Estimated GFR (Cockcroft-Gault) 24.3 BUN/Creatinine Ratio 6 (6-20) Glucose Level 115 mg/dL (70-99) Calcium Level 8.2 mg/dL (8.5-10.1) Magnesium Level 1.9 mg/dL (1.8-2.4) Total Bilirubin 0.4 mg/dL (0.2-1.0) Aspartate Amino Transf (AST/SGOT) 31 U/L (15-37) Alanine Aminotransferase (ALT/SGPT) 27 U/L (16-63) Alkaline Phosphatase 203 U/L (46-116) Creatine Kinase 27 U/L (39-308) Creatine Kinase MB (Mass) 3.7 ng/mL (0.0-3.6) Creatine Kinase MB Relative Index % (0-4) Troponin I Quantitative < 0.017 ng/mL (0.000-0.055) ND-Kgx-Q-Type Natriuretic Peptide > 97976 pg/mL (0-124) Total Protein 5.9 g/dL (6.4-8.2) Albumin 2.0 g/dL (3.4-5.0) Albumin/Globulin Ratio 0.5 (1.0-1.7) Test 07/09/21 14:42 07/09/21 15:50 07/09/21 16:01 07/09/21 17:25 Glucose (Fingerstick) 58 mg/dL (70-99) 70 mg/dL (70-99) 48 mg/dL (70-99) SARS-CoV-2 Antigen (Rapid) Negative (NEGATIVE) VTE Prophylaxis Ordered VTE Prophylaxis Devices: Contraindicated VTE Pharmacological Prophylaxi: Yes Assessment/Plan Assessment/Plan acute metabolic encephalopathy hypoglycemia PVD ESRD admit, hydrocort, D5 fluid, recheck Justifications for Admission Other Justification ESRD, fluid overload CORNELIO OATES MD Jul 09, 2021 17:50
[2021-07-09 19:00] VITALS: BP 160/65
[2021-07-09] MEDS: BUDESONIDE 0.5 MG/2 ML NEBU. NEB SCH (20:13)
[2021-07-09] MEDS: LACTOBACILLUS RHAMNOSUS GG 1 CAPSULE. PO SCH (20:33)
[2021-07-09] MEDS: ATORVASTATIN CALCIUM 10 MG TABLET. PO SCH (20:33)
[2021-07-09] MEDS: HYDROCORTISONE SOD SUCC/PF 100 MG/2 ML VIAL. IVP SCH (20:34)
[2021-07-09] MEDS: ACETAMINOPHEN 325 MG TABLET. PO PRN (20:34)
[2021-07-09 23:47] VITALS: BP 163/68
[2021-07-10 03:49] VITALS: BP 143/64
[2021-07-10 07:00] VITALS: BP 121/56
[2021-07-10] MEDS: IPRATRPIUM/ALBUTEROL 0.5/2.5MG 3 ML NEBU. NEB SCH ×4 (07:37→20:29)
[2021-07-10] MEDS: BUDESONIDE 0.5 MG/2 ML NEBU. NEB SCH ×2 (07:37→20:29)
[2021-07-10] MEDS: CALCIUM ACETATE 667 MG CAPSULE PO SCH ×3 (08:12→17:18)
[2021-07-10] MEDS: FERROUS SULFATE 325 MG TABLET. PO SCH (08:13)
[2021-07-10] MEDS: FOLIC/VIT B COMP W-C (RENAL) TABLET. PO SCH (08:13)
[2021-07-10] MEDS: LEVOTHYROXINE 100 MCG TABLET PO SCH (08:13)
[2021-07-10] MEDS: ASPIRIN CHEWABLE 81 MG TABLET. PO SCH (08:13)
[2021-07-10] MEDS: ASCORBIC ACID 500 MG TABLET PO SCH (08:13)
[2021-07-10] MEDS: LACTOBACILLUS RHAMNOSUS GG 1 CAPSULE. PO SCH ×2 (08:13→20:08)
[2021-07-10] MEDS: HYDROCORTISONE SOD SUCC/PF 100 MG/2 ML VIAL. IVP SCH (08:14)
[2021-07-10] MEDS ORDERED: ALBUTEROL SULFATE 8GM INHALER. INH PRN (08:15)
[2021-07-10] MEDS: INSULIN LISPRO 300 UNITS/3 ML VIAL. SQ SCH ×4 (08:38→20:41)
--- NOTE | 2021-07-10 08:44 | PDOC ---
[employer] PROGRESS NOTE Date of Service DOS: DATE: 07/10/21 TIME: 08:41 Chief Complaint Chief Complaint A/P: Acute encephalopathy - metabolic from his hypoglycemia Chronic nonhealing right heel wound, status post incision and drainage on June 16. PVD - on 06/20/2021 S/P Right below knee amputation, irrigation debridement of left tip of great toe, removal left great toenail and debridement of skin subcutaneous tissue left heel Anemia - of chronic renal insufficiency Generalized debility Chronic right upper extremity swelling status post fistulogram ESRD on HD - misses once per week fairly regularly.Will consult nephrology CAD with stent at [facility], LCx - taking meds, will cont Dm2 on insulin - very brittle historically, will reduce his home lantus to 8u. previously required D10 for hypoglycemia earlier this year HLD - cont statin Previous smoker Status post left hip repair recently for fracture. History of Present Illness History of Present Illness Mr Ochoa is a 58 year old male w/ PMHx DM, ESRD, prior cardiac arrest who presents from SNF due to low blood sugar at facility unresponsive to IM glucagon. Patient's BG en route was 21 per EMS. Reported to them the patient had not been eating for the past several days however no other history is available. Patient is on 4 L of oxygen at baseline. No fever, nausea vomiting. Reports chest tightness and leg swelling. No other acute symptoms or complaints Historically glucose is very brittle and frequently has blood glucose in the 30s as well. He normally takes 16u lantus QHS and 11u lispro or regular insulin TID with meals. Still not very responsive this morning glucose is currently 399. Very drowsy. Still hypoxic. Moving arms and legs. Vitals/I&O Vitals/I&O: Vital Signs Date Time Temp Pulse Resp B/P (MAP) Pulse Ox O2 Delivery O2 Flow Rate FiO2 07/10/21 07:37 99 Nasal Cannula 3.0 07/10/21 03:49 98.6 67 19 143/64 (90) 98.6 I & O 07/09/21 07/09/21 07/10/21 15:00 23:00 07:00 Intake Total 0 ml 100 ml Balance 0 ml 100 ml Physical Exam General: moderate distress, Other (follows commands for a couple seconds, then doses off) Lungs: Clear Abdomen: Soft, No tenderness Extremities: No clubbing, No cyanosis, No edema, Normal pulses Skin: No rashes Labs Labs: Laboratory Tests Test 07/09/21 12:27 07/09/21 12:35 07/09/21 12:47 07/09/21 13:45 Glucose (Fingerstick) 15 mg/dL (70-99) 83 mg/dL (70-99) 39 mg/dL (70-99) White Blood Count 10.7 x10^3/uL (4.0-11.0) Red Blood Count 2.89 x10^6/uL (4.30-5.70) Hemoglobin 8.9 g/dL (13.0-17.5) Hematocrit 26.6 % (39.0-53.0) Mean Corpuscular Volume 92 fL (79-100) Mean Corpuscular Hemoglobin 31 pg (25-35) Mean Corpuscular Hemoglobin Concent 34 g/dL (31-37) Red Cell Distribution Width 21.6 % (11.5-14.5) Platelet Count 165 x10^3/uL (140-400) Neutrophils (%) (Auto) 72 % (31-73) Lymphocytes (%) (Auto) 15 % (24-48) Monocytes (%) (Auto) 7 % (0-9) Eosinophils (%) (Auto) 3 % (0-3) Basophils (%) (Auto) 2 % (0-3) Neutrophils # (Auto) 7.7 x10^3/uL (1.8-7.7) Lymphocytes # (Auto) 1.6 x10^3/uL (1.0-4.8) Monocytes # (Auto) 0.7 x10^3/uL (0.0-1.1) Eosinophils # (Auto) 0.4 x10^3/uL (0.0-0.7) Basophils # (Auto) 0.2 x10^3/uL (0.0-0.2) Sodium Level 139 mmol/L (136-145) Potassium Level 3.2 mmol/L (3.5-5.1) Chloride Level 102 mmol/L (98-107) Carbon Dioxide Level 30 mmol/L (21-32) Anion Gap 7 (6-14) Blood Urea Nitrogen 15 mg/dL (8-26) Creatinine 2.7 mg/dL (0.7-1.3) Estimated GFR (Cockcroft-Gault) 24.3 BUN/Creatinine Ratio 6 (6-20) Glucose Level 115 mg/dL (70-99) Calcium Level 8.2 mg/dL (8.5-10.1) Magnesium Level 1.9 mg/dL (1.8-2.4) Total Bilirubin 0.4 mg/dL (0.2-1.0) Aspartate Amino Transf (AST/SGOT) 31 U/L (15-37) Alanine Aminotransferase (ALT/SGPT) 27 U/L (16-63) Alkaline Phosphatase 203 U/L (46-116) Creatine Kinase 27 U/L (39-308) Creatine Kinase MB (Mass) 3.7 ng/mL (0.0-3.6) Creatine Kinase MB Relative Index % (0-4) Troponin I Quantitative < 0.017 ng/mL (0.000-0.055) BN-Wyj-O-Type Natriuretic Peptide > 40457 pg/mL (0-124) Total Protein 5.9 g/dL (6.4-8.2) Albumin 2.0 g/dL (3.4-5.0) Albumin/Globulin Ratio 0.5 (1.0-1.7) Test 07/09/21 14:42 07/09/21 15:50 07/09/21 16:01 07/09/21 17:25 Glucose (Fingerstick) 58 mg/dL (70-99) 70 mg/dL (70-99) 48 mg/dL (70-99) SARS-CoV-2 Antigen (Rapid) Negative (NEGATIVE) Test 07/09/21 18:27 07/09/21 19:33 07/09/21 20:48 07/09/21 22:28 Glucose (Fingerstick) 95 mg/dL (70-99) 65 mg/dL (70-99) 107 mg/dL (70-99) 170 mg/dL (70-99) Test 07/10/21 01:29 07/10/21 03:14 07/10/21 07:21 Glucose (Fingerstick) 262 mg/dL (70-99) 289 mg/dL (70-99) 399 mg/dL (70-99) Assessment and Plan Assessmemt and Plan Problems Medical Problems: (1) Anemia of renal disease Status: Acute (2) ESRD on dialysis Status: Acute (3) Hypokalemia Status: Acute Comment Review of Relevant I have reviewed the following items yesenia (where applicable) has been applied. Medications: Current Medications Medications (Trade) Dose Ordered Sig/Celi Route PRN Reason Start Time Stop Time Status Last Admin Dose Admin Dextrose (Dextrose 50%-Water Syringe) 25 gm 1X ONCE IV 07/09/21 14:00 07/09/21 14:01 DC 07/09/21 13:55 Dextrose/Sodium Chloride 1,000 ml @ 75 mls/hr 1X ONCE IV 07/09/21 14:45 07/10/21 04:04 DC 07/09/21 14:45 Acetaminophen (Tylenol) 650 mg PRN Q6HRS PRN PO MILD PAIN / TEMP > 100.3'F 07/09/21 14:45 07/09/21 20:34 Ascorbic Acid (Vitamin C) 500 mg DAILY PO 07/10/21 09:00 07/10/21 08:13 Aspirin (Aspirin Chewable) 81 mg DAILYWBKFT PO 07/10/21 08:00 07/10/21 08:13 Atorvastatin Calcium (Lipitor) 10 mg HS PO 07/09/21 21:00 07/09/21 20:33 Budesonide (Pulmicort) 0.5 mg RTBID NEB 07/09/21 20:00 07/10/21 07:37 Ferrous Sulfate (Feosol) 325 mg DAILY PO 07/10/21 09:00 07/10/21 08:13 Vitamin B Complex/ Vitamin C (Madai-Sean) 1 tab DAILY PO 07/10/21 09:00 07/10/21 08:13 Albuterol/ Ipratropium (Duoneb) 3 ml RTQID NEB 07/09/21 16:00 07/10/21 07:37 Lactobacillus Rhamnosus (Culturelle) 1 cap BID PO 07/09/21 21:00 07/10/21 08:13 Levothyroxine Sodium (Synthroid) 300 mcg DAILYAC PO 07/10/21 07:30 07/10/21 08:13 Calcium Acetate (Phoslo) 667 mg TIDWMEALS PO 07/09/21 17:00 07/10/21 08:12 Hydrocortisone Sodium Succinate (Solu-CORTEF) 100 mg 1X ONCE IVP 07/09/21 14:45 07/09/21 14:51 DC 07/09/21 16:00 Insulin Human Lispro (HumaLOG) 0-5 UNITS QIDACHS SQ 07/09/21 16:30 07/10/21 08:38 Dextrose (Dextrose 50%-Water Syringe) 12.5 gm PRN Q15MIN PRN IV SEE COMMENTS 07/09/21 14:45 07/09/21 17:40 Ceftriaxone Sodium (Rocephin) 1 gm 1X ONCE IVP 07/09/21 14:45 07/09/21 14:51 DC 07/09/21 16:00 Dextrose 1,000 ml @ 75 mls/hr 1X ONCE IV 07/09/21 14:45 07/10/21 04:04 DC 07/09/21 20:35 Hydrocortisone Sodium Succinate (Solu-CORTEF) 100 mg Q12HR IVP 07/09/21 21:00 07/10/21 08:14 Albuterol Sulfate (Ventolin Hfa) 2 puff PRN Q4HRS PRN INH SHORTNESS OF BREATH 07/10/21 08:15 07/10/21 08:37 Justifications for Admission Other Justification ESRD, fluid overload JIN ROBLES MD Jul 10, 2021 08:44
[2021-07-10] MEDS ORDERED: ALBUMIN HUMAN 25% 200 ML IV PRN (10:45)
[2021-07-10] MEDS ORDERED: IV NORMAL SALINE 1000ML BAG 1,000 ML IV PRN ×2 (10:45)
[2021-07-10] MEDS ORDERED: DIALYSIS PATIENT. MC PRN ×2 (10:45)
--- NOTE | 2021-07-10 10:47 | PDOC2 ---
CONSULT Date of Consult Date of Consult DATE: 07/10/21 TIME: 10:43 Reason for Consult Reason for Consult: ESRD Referring Physician Referring Physician: LASHON Identification/Chief Complaint Chief Complaint CONFUSION Source Source: Chart review History of Present Illness Reason for Visit: THIS IS A 61 YR OLD WITH CONFUSION. NOTED TO HAVE SIGNIFICANT HYPOGLYCEMIA. HE HAS ESRD AND HAS OP HD ON MWF. LABS ARE C/W ESRD. ESRD IS DUE TO DM II AND HTN RELATED END ORGAN DAMAGE. Past Medical History Cardiovascular: CAD, HTN, Hyperlipidemia Pulmonary: Other GI: GERD Heme/Onc: Anemia NOS Psych: Depression Renal/: Chronic renal failure Endocrine: Diabetes, Hypothyroidism, Hyperparathyroidism Past Surgical History Past Surgical History: Other Family History Family History: Diabetes, Hypertension Social History No ALCOHOL: none Drugs: None Lives: with Family Current Problem List Problem List Problems Medical Problems: (1) Anemia of renal disease Status: Acute (2) ESRD on dialysis Status: Acute (3) Hypokalemia Status: Acute Current Medications Current Medications Current Medications Dextrose (Dextrose 50%-Water Syringe) 25 gm STK-MED ONCE IV ; Start 07/09/21 at 12:31; Stop 07/09/21 at 12:31; Status DC Dextrose (Dextrose 50%-Water Syringe) 25 gm 1X ONCE IV Last administered on 07/09/21at 13:55; Start 07/09/21 at 14:00; Stop 07/09/21 at 14:01; Status DC Dextrose/Sodium Chloride 1,000 ml @ 75 mls/hr 1X ONCE IV Last administered on 07/09/21at 14:45; Start 07/09/21 at 14:45; Stop 07/10/21 at 04:04; Status DC Acetaminophen (Tylenol) 650 mg PRN Q6HRS PRN PO MILD PAIN / TEMP > 100.3'F Last administered on 07/09/21at 20:34; Start 07/09/21 at 14:45 Ascorbic Acid (Vitamin C) 500 mg DAILY PO Last administered on 07/10/21at 08:13; Start 07/10/21 at 09:00 Aspirin (Aspirin Chewable) 81 mg DAILYWBKFT PO Last administered on 07/10/21at 08:13; Start 07/10/21 at 08:00 Atorvastatin Calcium (Lipitor) 10 mg HS PO Last administered on 07/09/21at 20:33; Start 07/09/21 at 21:00 Budesonide (Pulmicort) 0.5 mg RTBID NEB Last administered on 07/10/21at 07:37; Start 07/09/21 at 20:00 Docusate Sodium (Colace) 100 mg PRN BID PRN PO CONSTIPATION; Start 07/09/21 at 14:45 Ferrous Sulfate (Feosol) 325 mg DAILY PO Last administered on 07/10/21at 08:13; Start 07/10/21 at 09:00 Vitamin B Complex/ Vitamin C (Madai-Sean) 1 tab DAILY PO Last administered on 07/10/21at 08:13; Start 07/10/21 at 09:00 Albuterol/ Ipratropium (Duoneb) 3 ml RTQID NEB Last administered on 07/10/21at 07:37; Start 07/09/21 at 16:00 Lactobacillus Rhamnosus (Culturelle) 1 cap BID PO Last administered on 07/10/21at 08:13; Start 07/09/21 at 21:00 Levothyroxine Sodium (Synthroid) 300 mcg DAILYAC PO Last administered on 07/10/21at 08:13; Start 07/10/21 at 07:30 Calcium Acetate (Phoslo) 667 mg TIDWMEALS PO Last administered on 07/10/21at 08:12; Start 07/09/21 at 17:00 Hydrocortisone Sodium Succinate (Solu-CORTEF) 100 mg 1X ONCE IVP Last administered on 07/09/21at 16:00; Start 07/09/21 at 14:45; Stop 07/09/21 at 14:51; Status DC Insulin Human Lispro (HumaLOG) 0-5 UNITS QIDACHS SQ Last administered on 07/10/21at 08:38; Start 07/09/21 at 16:30 Dextrose (Dextrose 50%-Water Syringe) 12.5 gm PRN Q15MIN PRN IV SEE COMMENTS Last administered on 07/09/21at 17:40; Start 07/09/21 at 14:45 Ceftriaxone Sodium (Rocephin) 1 gm 1X ONCE IVP Last administered on 07/09/21at 16:00; Start 07/09/21 at 14:45; Stop 07/09/21 at 14:51; Status DC Dextrose 1,000 ml @ 75 mls/hr 1X ONCE IV Last administered on 07/09/21at 20:35; Start 07/09/21 at 14:45; Stop 07/10/21 at 04:04; Status DC Hydrocortisone Sodium Succinate (Solu-CORTEF) 100 mg Q12HR IVP Last administered on 07/10/21at 08:14; Start 07/09/21 at 21:00 Albuterol Sulfate (Ventolin Hfa) 2 puff PRN Q4HRS PRN INH SHORTNESS OF BREATH Last administered on 07/10/21at 08:37; Start 07/10/21 at 08:15 Active Scripts Active Hydrocodone-Apap 7.5-325 (Hydrocodone Bit/Acetaminophen) 1 Tab Tablet 1 Tab PO PRN Q6HRS PRN Admelog (Insulin Lispro) 100 Unit/1 Ml Vial 0 Units SQ TIDWMEALS 30 Days Vitamin C (Ascorbic Acid) 500 Mg Tablet 500 Mg PO DAILY 30 Days Madai-Sean Tablet (Folic Acid/Vitamin B Comp W-C) 0.8 Mg Tablet 1 Tab PO DAILY 30 Days Dok (Docusate Sodium) 100 Mg Capsule 100 Mg PO PRN BID PRN 28 Days Culturelle (Lactobacillus Rhamnosus Gg) 1 Each Cap.sprink 1 Cap PO BID 30 Days Budesonide 0.5 Mg/2 Ml Ampul.neb 0.5 Mg NEB RTBID 30 Days Aspirin 81 Mg Tab.chew 81 Mg PO DAILYWBKFT 30 Days Duoneb 0.5-3(2.5) Mg/3 Ml (Albuterol/Ipratropium) 3 Ml Ampul.neb 3 Ml NEB RTQID 30 Days Reported Levothyroxine Sodium 100 Mcg Tablet 300 Mcg PO DAILYAC Lantus Solostar (Insulin Glargine,Hum.rec.anlog) 100 Unit/1 Ml Insuln.pen 10 Unit SQ QHS Atorvastatin Calcium 10 Mg Tablet 10 Mg PO HS Cocolalla 3 Fish Oil Softgel ([place]ocolalla-3 Fatty Acids/Fish Oil) 1 Each Capsule.dr 1 Each PO DAILY Calcium Acetate 667 Mg Tablet 667 Mg PO TIDWMEALS Tylenol (Acetaminophen) 325 Mg Tablet 650 Mg PO PRN Q6HRS Ferrous Sulfate 325 Mg Tablet 1 Tab PO DAILY Allergies Allergies: Coded Allergies: No Known Drug Allergies (Unverified , 06/16/21) ROS Review of System UNABLE TO OBTAIN Physical Exam General: Cooperative, No acute distress HEENT: Atraumatic Lungs: Clear to auscultation Heart: Regular rate Abdomen: Normal bowel sounds, Soft, No tenderness Extremities: No cyanosis Skin: No breakdown Neuro: Other (CONFUSED, NO ASYMMETRY) Psych/Mental Status: Other (CONFUSED) MUSCULOSKELETAL: No joint tenderness, No swelling Vitals VITALS Vital Signs Date Time Temp Pulse Resp B/P (MAP) Pulse Ox O2 Delivery O2 Flow Rate FiO2 07/10/21 07:37 99 Nasal Cannula 3.0 07/10/21 07:00 97.2 70 19 121/56 (77) 97.2 Labs Labs Laboratory Tests Test 07/09/21 12:27 07/09/21 12:35 07/09/21 12:47 07/09/21 13:45 Glucose (Fingerstick) 15 mg/dL (70-99) 83 mg/dL (70-99) 39 mg/dL (70-99) White Blood Count 10.7 x10^3/uL (4.0-11.0) Red Blood Count 2.89 x10^6/uL (4.30-5.70) Hemoglobin 8.9 g/dL (13.0-17.5) Hematocrit 26.6 % (39.0-53.0) Mean Corpuscular Volume 92 fL (79-100) Mean Corpuscular Hemoglobin 31 pg (25-35) Mean Corpuscular Hemoglobin Concent 34 g/dL (31-37) Red Cell Distribution Width 21.6 % (11.5-14.5) Platelet Count 165 x10^3/uL (140-400) Neutrophils (%) (Auto) 72 % (31-73) Lymphocytes (%) (Auto) 15 % (24-48) Monocytes (%) (Auto) 7 % (0-9) Eosinophils (%) (Auto) 3 % (0-3) Basophils (%) (Auto) 2 % (0-3) Neutrophils # (Auto) 7.7 x10^3/uL (1.8-7.7) Lymphocytes # (Auto) 1.6 x10^3/uL (1.0-4.8) Monocytes # (Auto) 0.7 x10^3/uL (0.0-1.1) Eosinophils # (Auto) 0.4 x10^3/uL (0.0-0.7) Basophils # (Auto) 0.2 x10^3/uL (0.0-0.2) Sodium Level 139 mmol/L (136-145) Potassium Level 3.2 mmol/L (3.5-5.1) Chloride Level 102 mmol/L (98-107) Carbon Dioxide Level 30 mmol/L (21-32) Anion Gap 7 (6-14) Blood Urea Nitrogen 15 mg/dL (8-26) Creatinine 2.7 mg/dL (0.7-1.3) Estimated GFR (Cockcroft-Gault) 24.3 BUN/Creatinine Ratio 6 (6-20) Glucose Level 115 mg/dL (70-99) Calcium Level 8.2 mg/dL (8.5-10.1) Magnesium Level 1.9 mg/dL (1.8-2.4) Total Bilirubin 0.4 mg/dL (0.2-1.0) Aspartate Amino Transf (AST/SGOT) 31 U/L (15-37) Alanine Aminotransferase (ALT/SGPT) 27 U/L (16-63) Alkaline Phosphatase 203 U/L (46-116) Creatine Kinase 27 U/L (39-308) Creatine Kinase MB (Mass) 3.7 ng/mL (0.0-3.6) Creatine Kinase MB Relative Index % (0-4) Troponin I Quantitative < 0.017 ng/mL (0.000-0.055) LN-Bpq-Y-Type Natriuretic Peptide > 34286 pg/mL (0-124) Total Protein 5.9 g/dL (6.4-8.2) Albumin 2.0 g/dL (3.4-5.0) Albumin/Globulin Ratio 0.5 (1.0-1.7) Test 07/09/21 14:42 07/09/21 15:50 07/09/21 16:01 07/09/21 17:25 Glucose (Fingerstick) 58 mg/dL (70-99) 70 mg/dL (70-99) 48 mg/dL (70-99) SARS-CoV-2 RNA (HERI) Negative (Negative) SARS-CoV-2 Antigen (Rapid) Negative (NEGATIVE) Test 07/09/21 18:27 07/09/21 19:33 07/09/21 20:48 07/09/21 22:28 Glucose (Fingerstick) 95 mg/dL (70-99) 65 mg/dL (70-99) 107 mg/dL (70-99) 170 mg/dL (70-99) Test 07/10/21 01:29 07/10/21 03:14 07/10/21 07:21 Glucose (Fingerstick) 262 mg/dL (70-99) 289 mg/dL (70-99) 399 mg/dL (70-99) Laboratory Tests Test 07/09/21 12:27 07/09/21 12:35 07/09/21 12:47 07/09/21 13:45 Glucose (Fingerstick) 15 mg/dL (70-99) 83 mg/dL (70-99) 39 mg/dL (70-99) White Blood Count 10.7 x10^3/uL (4.0-11.0) Red Blood Count 2.89 x10^6/uL (4.30-5.70) Hemoglobin 8.9 g/dL (13.0-17.5) Hematocrit 26.6 % (39.0-53.0) Mean Corpuscular Volume 92 fL (79-100) Mean Corpuscular Hemoglobin 31 pg (25-35) Mean Corpuscular Hemoglobin Concent 34 g/dL (31-37) Red Cell Distribution Width 21.6 % (11.5-14.5) Platelet Count 165 x10^3/uL (140-400) Neutrophils (%) (Auto) 72 % (31-73) Lymphocytes (%) (Auto) 15 % (24-48) Monocytes (%) (Auto) 7 % (0-9) Eosinophils (%) (Auto) 3 % (0-3) Basophils (%) (Auto) 2 % (0-3) Neutrophils # (Auto) 7.7 x10^3/uL (1.8-7.7) Lymphocytes # (Auto) 1.6 x10^3/uL (1.0-4.8) Monocytes # (Auto) 0.7 x10^3/uL (0.0-1.1) Eosinophils # (Auto) 0.4 x10^3/uL (0.0-0.7) Basophils # (Auto) 0.2 x10^3/uL (0.0-0.2) Sodium Level 139 mmol/L (136-145) Potassium Level 3.2 mmol/L (3.5-5.1) Chloride Level 102 mmol/L (98-107) Carbon Dioxide Level 30 mmol/L (21-32) Anion Gap 7 (6-14) Blood Urea Nitrogen 15 mg/dL (8-26) Creatinine 2.7 mg/dL (0.7-1.3) Estimated GFR (Cockcroft-Gault) 24.3 BUN/Creatinine Ratio 6 (6-20) Glucose Level 115 mg/dL (70-99) Calcium Level 8.2 mg/dL (8.5-10.1) Magnesium Level 1.9 mg/dL (1.8-2.4) Total Bilirubin 0.4 mg/dL (0.2-1.0) Aspartate Amino Transf (AST/SGOT) 31 U/L (15-37) Alanine Aminotransferase (ALT/SGPT) 27 U/L (16-63) Alkaline Phosphatase 203 U/L (46-116) Creatine Kinase 27 U/L (39-308) Creatine Kinase MB (Mass) 3.7 ng/mL (0.0-3.6) Creatine Kinase MB Relative Index % (0-4) Troponin I Quantitative < 0.017 ng/mL (0.000-0.055) HH-Wsc-H-Type Natriuretic Peptide > 54852 pg/mL (0-124) Total Protein 5.9 g/dL (6.4-8.2) Albumin 2.0 g/dL (3.4-5.0) Albumin/Globulin Ratio 0.5 (1.0-1.7) Test 07/09/21 14:42 07/09/21 15:50 07/09/21 16:01 07/09/21 17:25 Glucose (Fingerstick) 58 mg/dL (70-99) 70 mg/dL (70-99) 48 mg/dL (70-99) SARS-CoV-2 RNA (HERI) Negative (Negative) SARS-CoV-2 Antigen (Rapid) Negative (NEGATIVE) Test 07/09/21 18:27 07/09/21 19:33 07/09/21 20:48 07/09/21 22:28 Glucose (Fingerstick) 95 mg/dL (70-99) 65 mg/dL (70-99) 107 mg/dL (70-99) 170 mg/dL (70-99) Test 07/10/21 01:29 07/10/21 03:14 07/10/21 07:21 Glucose (Fingerstick) 262 mg/dL (70-99) 289 mg/dL (70-99) 399 mg/dL (70-99) Images Images EXAM: CHEST ONE VIEW. HISTORY: Altered mental status. COMPARISON: 05/29/2021. FINDINGS: A frontal view of the chest is obtained. Scarring or atelectasis laterally in the left hemithorax is stable. Groundglass infiltrates are mildly increased in the right upper lobe and improved in the bases. There are small bilateral pleural effusions. There is no pneumothorax. The heart is mildly enlarged. There are atherosclerotic calcifications of the aorta. Vascular stents are noted in the right axilla and right brachiocephalic vein. A coronary stent is also noted. IMPRESSION: 1. Interstitial infiltrates are improved in the bases and mildly increased in t he right apex. 2. Small bilateral pleural effusions. Moderate cardiomegaly. Electronically signed by: Fanny Rainey MD (07/09/2021 12:53 PM) [id number] Assessment/Plan Assessment/Plan IMP ESRD-MWF ANEMIA FLUID OVERLOAD BASED ON IMAGING HYPOGLYCEMIA MET ENCEPHALOPATHY DM II HTN PLAN HD TODAY UF TO TW START EPOGEN WILL FOLLOW LAM ATKINS MD Jul 10, 2021 10:47
--- NOTE | 2021-07-10 11:08 | NUR ---
SW following. Discussed with RN, pt from [facility], 4L, renal diet. Pt confused. Rapid COVID-19 negative. Pt to return to [facility] when medically stable. Updates to be faxed when more available in chart. SW will continue to follow.
--- NOTE | 2021-07-10 12:38 | NUR ---
PT BLOOD SUGAR AT BREAKFAST WAS 399, DR. TORRES NOTIFIED, NEW ORDERS RECEIVED TO ADMINISTER 7 UNITS OF HUMALOG WITH BREAKFAST. ORDER ADMINISTERED.
[2021-07-10 15:00] VITALS: BP 129/52
--- NOTE | 2021-07-10 16:19 | NUR ---
Wound/Ostomy Care Wound Type/Assessment: Wound care consult for left heel DFU and left great toe DFU. Pt known to wound care team from previous admissions and outpatient clinic. Buttocks, left 4tht toe and right upper arm wounds all appear to have resolved now. Right BKA surgical incision with intact steri strip and edges area approximated, no signs of infection noted, surgical incision was cleansed with chloraprep and redressed with non-adherent gauze and kerlix. No other wounds noted. Treatment Recommendations/Plan: Cleanse wounds with saline or wound wash and pat dry. Left heel: apply skin prep periwound, then cover with therahoney gel, xeroform and foam, change every 2-3 days. Left great toe: paint with betadine daily. Buttocks: continue applying calazime cream for protection. Education provided: educated pt on PU prevention and DFU healing, pt with flat affect, refused to verbalized understanding, reinforcement needed. Offloading surface/device: purple wedge, pillows to offload heel. Pt has heel medix boots at facility and some at home, called to see if she will bring a pair to the hospital to use. Recommended Referrals/Tests: n/a Discharge Recommendations for dressings: same as above.
[2021-07-10 19:00] VITALS: BP 139/94
[2021-07-10] MEDS: ACETAMINOPHEN 325 MG TABLET. PO PRN (20:08)
[2021-07-10] MEDS: ATORVASTATIN CALCIUM 10 MG TABLET. PO SCH (20:08)
[2021-07-10] MEDS ORDERED: EPOETIN ALFA-EPBX for ESRD 20,000 UNIT/ML VIAL. SQ SCH (21:00)
[2021-07-10 23:00] VITALS: BP 145/57
[2021-07-11 03:50] VITALS: BP 161/61
[2021-07-11] MEDS: LEVOTHYROXINE 100 MCG TABLET PO SCH (05:17)
[2021-07-11 07:00] VITALS: BP 167/63
[2021-07-11 07:33] LABS: BASO % 0 % (0-3); EOS % 0 % (0-3); HEMATOCRIT 24.5 % (39.0-53.0); HEMOGLOBIN 7.8 g/dL (13.0-17.5); LYMPH # 1.3 x10^3/uL (1.0-4.8); LYMPH % 9 % (24-48); MEAN CORPUSCULAR HEMOGLOBIN 30 pg (25-35); MEAN CORPUSCULAR HGB CONC 32 g/dL (31-37); MEAN CORPUSCULAR VOLUME 94 fL (79-100); MONO # 0.6 x10^3/uL (0.0-1.1); MONO % 4 % (0-9); NEUT # 13.3 x10^3/uL (1.8-7.7); NEUT % 87 % (31-73); PLATELET COUNT 178 x10^3/uL (140-400); RED BLOOD COUNT 2.61 x10^6/uL (4.30-5.70); RED CELL DISTRIBUTION WIDTH 23.2 % (11.5-14.5); WHITE BLOOD COUNT 15.3 x10^3/uL (4.0-11.0)
[2021-07-11 08:05] LABS: CALCIUM 8.1 mg/dL (8.5-10.1); CREATININE 2.7 mg/dL (0.7-1.3); GFR 24.3; POTASSIUM 4.6 mmol/L (3.5-5.1)
[2021-07-11] MEDS: INSULIN LISPRO 300 UNITS/3 ML VIAL. SQ SCH ×4 (08:11→23:33)
[2021-07-11] MEDS: FOLIC/VIT B COMP W-C (RENAL) TABLET. PO SCH (08:12)
[2021-07-11] MEDS: CALCIUM ACETATE 667 MG CAPSULE PO SCH ×3 (08:12→17:04)
[2021-07-11] MEDS: LACTOBACILLUS RHAMNOSUS GG 1 CAPSULE. PO SCH ×2 (08:12→19:57)
[2021-07-11] MEDS: HYDROCORTISONE 10 MG TABLET PO SCH (08:12)
[2021-07-11] MEDS: FERROUS SULFATE 325 MG TABLET. PO SCH (08:12)
[2021-07-11] MEDS: ASPIRIN CHEWABLE 81 MG TABLET. PO SCH (08:12)
[2021-07-11] MEDS: ASCORBIC ACID 500 MG TABLET PO SCH (08:12)
[2021-07-11] MEDS: IPRATRPIUM/ALBUTEROL 0.5/2.5MG 3 ML NEBU. NEB SCH ×4 (08:56→20:00)
[2021-07-11] MEDS: BUDESONIDE 0.5 MG/2 ML NEBU. NEB SCH ×2 (08:57→20:00)
[2021-07-11 09:59] LABS: % LYMPHS 7 % (24-48); % MONOS 2 % (0-10); % SEGS 91 % (35-66)
[2021-07-11 10:00] LABS: PLT ESTIMATE ADEQUATE (ADEQUATE)
[2021-07-11 10:01] LABS: ANISOCYTOSIS SLIGHT; OVALOCYTES OCC
[2021-07-11 11:14] VITALS: BP 153/53
--- NOTE | 2021-07-11 11:51 | PDOC ---
[employer] PROGRESS NOTE Date of Service DOS: DATE: 07/11/21 TIME: 11:49 Chief Complaint Chief Complaint A/P: Acute encephalopathy - metabolic from his hypoglycemia, requiring corticosteroid stimulation Chronic nonhealing left heel wound - wound care PVD - on 06/20/2021 S/P Right below knee amputation, irrigation debridement of left tip of great toe, removal left great toenail and debridement of skin subcutaneous tissue left heel Anemia - of chronic renal insufficiency Generalized debility Chronic right upper extremity swelling status post fistulogram ESRD on HD - misses once per week fairly regularly.Will consult nephrology CAD with stent at [facility], LCx - taking meds, will cont Dm2 on insulin - very brittle historically, will reduce his home lantus to 8u. previously required D10 for hypoglycemia earlier this year HLD - cont statin Previous smoker Status post left hip repair recently for fracture. FEN - ADA diet PPX - heparin FULL CODE Dispo - inpatient History of Present Illness History of Present Illness Mr Ochoa is a 58 year old male w/ PMHx DM, ESRD, prior cardiac arrest who presents from SNF due to low blood sugar at facility unresponsive to IM glucagon. Patient's BG en route was 21 per EMS. Reported to them the patient had not been eating for the past several days however no other history is available. Patient is on 4 L of oxygen at baseline. No fever, nausea vomiting. Reports chest tightness and leg swelling. No other acute symptoms or complaints Historically glucose is very brittle and frequently has blood glucose in the 30s as well. He normally takes 16u lantus QHS and 11u lispro or regular insulin TID with meals. 07/10: Still not very responsive this morning glucose is currently 399. Very drowsy. Still hypoxic. Moving arms and legs. After discontinuation of IV Cortef blood glucose dropped to 100. Changed to p.o. Cortef still requiring corticosteroid and stimulation for hypoglycemia. More alert today. WBC elevated likely due to corticosteroids. Patient with no complaints. Hb down to 7.8. Vitals/I&O Vitals/I&O: Vital Signs Date Time Temp Pulse Resp B/P (MAP) Pulse Ox O2 Delivery O2 Flow Rate FiO2 07/11/21 11:14 98.5 82 20 153/53 (86) 100 Nasal Cannula 5.0 98.5 I & O 07/10/21 07/10/21 07/11/21 15:00 23:00 07:00 Intake Total 300 ml 200 ml Output Total 0 ml Balance 300 ml 200 ml 0 ml Physical Exam General: Cooperative, No acute distress Heart: Regular rate Lungs: Clear Abdomen: Normal bowel sounds, Soft, No tenderness Extremities: No cyanosis Skin: No breakdown Labs Labs: Laboratory Tests Test 07/10/21 11:56 07/10/21 16:36 07/10/21 20:16 07/11/21 06:15 Glucose (Fingerstick) 213 mg/dL (70-99) 160 mg/dL (70-99) 244 mg/dL (70-99) White Blood Count 15.3 x10^3/uL (4.0-11.0) Red Blood Count 2.61 x10^6/uL (4.30-5.70) Hemoglobin 7.8 g/dL (13.0-17.5) Hematocrit 24.5 % (39.0-53.0) Mean Corpuscular Volume 94 fL (79-100) Mean Corpuscular Hemoglobin 30 pg (25-35) Mean Corpuscular Hemoglobin Concent 32 g/dL (31-37) Red Cell Distribution Width 23.2 % (11.5-14.5) Platelet Count 178 x10^3/uL (140-400) Neutrophils (%) (Auto) 87 % (31-73) Lymphocytes (%) (Auto) 9 % (24-48) Monocytes (%) (Auto) 4 % (0-9) Eosinophils (%) (Auto) 0 % (0-3) Basophils (%) (Auto) 0 % (0-3) Neutrophils # (Auto) 13.3 x10^3/uL (1.8-7.7) Lymphocytes # (Auto) 1.3 x10^3/uL (1.0-4.8) Monocytes # (Auto) 0.6 x10^3/uL (0.0-1.1) Eosinophils # (Auto) 0.0 x10^3/uL (0.0-0.7) Basophils # (Auto) 0.0 x10^3/uL (0.0-0.2) Segmented Neutrophils % 91 % (35-66) Lymphocytes % 7 % (24-48) Monocytes % 2 % (0-10) Platelet Estimate Adequate (ADEQUATE) Basophilic Stippling Present Anisocytosis Slight Ovalocytes Occ Sodium Level 137 mmol/L (136-145) Potassium Level 4.6 mmol/L (3.5-5.1) Chloride Level 99 mmol/L (98-107) Carbon Dioxide Level 32 mmol/L (21-32) Anion Gap 6 (6-14) Blood Urea Nitrogen 19 mg/dL (8-26) Creatinine 2.7 mg/dL (0.7-1.3) Estimated GFR (Cockcroft-Gault) 24.3 Glucose Level 206 mg/dL (70-99) Calcium Level 8.1 mg/dL (8.5-10.1) Test 07/11/21 07:20 07/11/21 10:54 Glucose (Fingerstick) 207 mg/dL (70-99) 100 mg/dL (70-99) Assessment and Plan Assessmemt and Plan Problems Medical Problems: (1) Anemia of renal disease Status: Acute (2) ESRD on dialysis Status: Acute (3) Hypokalemia Status: Acute Comment Review of Relevant I have reviewed the following items yesenia (where applicable) has been applied. Medications: Current Medications Medications (Trade) Dose Ordered Sig/Celi Route PRN Reason Start Time Stop Time Status Last Admin Dose Admin Epoetin Luís-epbx (RETACRIT for ESRD PTS) 10,000 unit MoWeFr@2100 SQ 07/10/21 21:00 07/10/21 20:41 Hydrocortisone (Cortef) 10 mg DAILYWBKFT PO 07/11/21 08:00 07/11/21 08:12 Justifications for Admission Other Justification ESRD, fluid overload JIN ROBLES MD Jul 11, 2021 11:51
--- NOTE | 2021-07-11 14:25 | PDOC ---
DATE OF SERVICE DATE: 07/11/21 TIME: 14:22 SUBJECTIVE ROS No complaints currently, sitting in bed, eating Lunch OBJECTIVE Vital Signs Vital Signs Date Time Temp Pulse Resp B/P (MAP) Pulse Ox O2 Delivery O2 Flow Rate FiO2 07/11/21 13:01 Nasal Cannula 3.0 07/11/21 11:14 98.5 82 20 153/53 (86) 100 98.5 I & 0 Intake and Output 07/11/21 07:00 Intake Total 500 ml Output Total 0 ml Balance 500 ml Intake Oral 500 ml Output Urine Total 0 ml PHYSICAL EXAM Physical Exam GENERAL: NAD HEENT: OM moist , On Chronic home O2 NECK: Supple. LUNGS: Decreased breath sounds at the bases, non labored HEART: S1, S2. ABDOMEN: Soft, nontender. EXTREMITIES: AVG Rt ; Rt BKA recent SKIN : No generalized rash, no enriquez DIAGNOSIS/ASSESSMENT Assessment & Plan ESRD - On HD MWF @ [facility] under Dr. Scanlon . Currently no indocation for HD today Access - Rt arm AVF -- recent Fistulogram 06/23- Moderate stenoses at the junction of the previously stented cephalic vein and subclavian vein, as well as the subclavian vein in the right innominate vein treated with balloon a ngioplasty with improvement morphology and flow. Anemia Hgb 5.8 on 06/22 s/p PRBC; Hgb stable . Continue FABIAN Right heel wound, status post incision and drainage- s/p Irrigation debridement of right heel ulcer skin subcutaneous tissue and removal of right great toenail. S/P right below-knee amputation and left heel and great toe debridement on 06/19 Recent history Acute Lt Femoral neck displaced fracture s/p Lt Hip Repair COPD with home O2 dependency history of poorly controlled diabetes Hypertension BP stable COMMENT/RELEVANT DATA Meds Current Medications Medications (Trade) Dose Ordered Sig/Celi Start Time Stop Time Status Last Admin Dose Admin Acetaminophen (Tylenol) 650 mg PRN Q6HRS PRN 07/09/21 14:45 07/10/21 20:08 650 MG Albumin Human 200 ml @ 200 mls/hr 1X PRN PRN 07/10/21 10:45 07/10/21 16:44 DC Albuterol Sulfate (Ventolin Hfa) 2 puff PRN Q4HRS PRN 07/10/21 08:15 07/10/21 08:37 2 PUFF Albuterol/ Ipratropium (Duoneb) 3 ml RTQID 07/09/21 16:00 07/11/21 13:01 3 ML Ascorbic Acid (Vitamin C) 500 mg DAILY 07/10/21 09:00 07/11/21 08:12 500 MG Aspirin (Aspirin Chewable) 81 mg DAILYWBKFT 07/10/21 08:00 07/11/21 08:12 81 MG Atorvastatin Calcium (Lipitor) 10 mg HS 07/09/21 21:00 07/10/21 20:08 10 MG Budesonide (Pulmicort) 0.5 mg RTBID 07/09/21 20:00 07/11/21 08:57 0.5 MG Calcium Acetate (Phoslo) 667 mg TIDWMEALS 07/09/21 17:00 07/11/21 12:42 667 MG Ceftriaxone Sodium (Rocephin) 1 gm 1X ONCE 07/09/21 14:45 07/09/21 14:51 DC 07/09/21 16:00 1 GM Dextrose 1,000 ml @ 75 mls/hr 1X ONCE 07/09/21 14:45 07/10/21 04:04 DC 07/09/21 20:35 75 MLS/HR Dextrose (Dextrose 50%-Water Syringe) 12.5 gm PRN Q15MIN PRN 07/09/21 14:45 07/09/21 17:40 12.5 GM Dextrose/Sodium Chloride 1,000 ml @ 75 mls/hr 1X ONCE 07/09/21 14:45 07/10/21 04:04 DC 07/09/21 14:45 75 MLS/HR Docusate Sodium (Colace) 100 mg PRN BID PRN 07/09/21 14:45 07/10/21 20:08 100 MG Epoetin Luís-epbx (RETACRIT for ESRD PTS) 10,000 unit MoWeFr@2100 07/10/21 21:00 07/10/21 20:41 10,000 UNIT Ferrous Sulfate (Feosol) 325 mg DAILY 07/10/21 09:00 07/11/21 08:12 325 MG Hydrocortisone (Cortef) 10 mg DAILYWBKFT 07/11/21 08:00 07/11/21 08:12 10 MG Hydrocortisone Sodium Succinate (Solu-CORTEF) 100 mg Q12HR 07/09/21 21:00 07/10/21 12:49 DC 07/10/21 08:14 100 MG Info (PHARMACY MONITORING -- do not chart) 1 each PRN DAILY PRN 07/10/21 10:45 Insulin Human Lispro (HumaLOG) 0-5 UNITS QIDACHS 07/09/21 16:30 07/11/21 08:11 3 UNITS Lactobacillus Rhamnosus (Culturelle) 1 cap BID 07/09/21 21:00 07/11/21 08:12 1 CAP Levothyroxine Sodium (Synthroid) 300 mcg DAILYAC 07/10/21 07:30 07/11/21 05:17 300 MCG Sodium Chloride 1,000 ml @ 400 mls/hr Q2H30M PRN 07/10/21 10:45 07/10/21 22:44 DC Vitamin B Complex/ Vitamin C (Madai-Esan) 1 tab DAILY 07/10/21 09:00 07/11/21 08:12 1 TAB Lab Laboratory Tests Test 07/10/21 16:36 07/10/21 20:16 07/11/21 06:15 07/11/21 07:20 Glucose (Fingerstick) 160 mg/dL (70-99) 244 mg/dL (70-99) 207 mg/dL (70-99) White Blood Count 15.3 x10^3/uL (4.0-11.0) Red Blood Count 2.61 x10^6/uL (4.30-5.70) Hemoglobin 7.8 g/dL (13.0-17.5) Hematocrit 24.5 % (39.0-53.0) Mean Corpuscular Volume 94 fL (79-100) Mean Corpuscular Hemoglobin 30 pg (25-35) Mean Corpuscular Hemoglobin Concent 32 g/dL (31-37) Red Cell Distribution Width 23.2 % (11.5-14.5) Platelet Count 178 x10^3/uL (140-400) Neutrophils (%) (Auto) 87 % (31-73) Lymphocytes (%) (Auto) 9 % (24-48) Monocytes (%) (Auto) 4 % (0-9) Eosinophils (%) (Auto) 0 % (0-3) Basophils (%) (Auto) 0 % (0-3) Neutrophils # (Auto) 13.3 x10^3/uL (1.8-7.7) Lymphocytes # (Auto) 1.3 x10^3/uL (1.0-4.8) Monocytes # (Auto) 0.6 x10^3/uL (0.0-1.1) Eosinophils # (Auto) 0.0 x10^3/uL (0.0-0.7) Basophils # (Auto) 0.0 x10^3/uL (0.0-0.2) Segmented Neutrophils % 91 % (35-66) Lymphocytes % 7 % (24-48) Monocytes % 2 % (0-10) Platelet Estimate Adequate (ADEQUATE) Basophilic Stippling Present Anisocytosis Slight Ovalocytes Occ Sodium Level 137 mmol/L (136-145) Potassium Level 4.6 mmol/L (3.5-5.1) Chloride Level 99 mmol/L (98-107) Carbon Dioxide Level 32 mmol/L (21-32) Anion Gap 6 (6-14) Blood Urea Nitrogen 19 mg/dL (8-26) Creatinine 2.7 mg/dL (0.7-1.3) Estimated GFR (Cockcroft-Gault) 24.3 Glucose Level 206 mg/dL (70-99) Calcium Level 8.1 mg/dL (8.5-10.1) Test 07/11/21 10:54 Glucose (Fingerstick) 100 mg/dL (70-99) Results All relevant outside records, renal labs, imaging studies, telemetry/EKG's were reviewed. Justicifation of Admission Dx: Justifications for Admission: Justification of Admission Dx: N/A REBECCA ANGLIN MD Jul 11, 2021 14:25
[2021-07-11 14:58] VITALS: BP 177/72
[2021-07-11 19:00] VITALS: BP 178/65
[2021-07-11] MEDS: ACETAMINOPHEN 325 MG TABLET. PO PRN (19:57)
[2021-07-11] MEDS: ATORVASTATIN CALCIUM 10 MG TABLET. PO SCH (19:57)
[2021-07-11 23:00] VITALS: BP 181/73
[2021-07-12 03:00] VITALS: BP 165/67
[2021-07-12] MEDS: LEVOTHYROXINE 100 MCG TABLET PO SCH (05:54)
[2021-07-12 07:00] VITALS: BP 164/72
[2021-07-12] MEDS: BUDESONIDE 0.5 MG/2 ML NEBU. NEB SCH ×2 (07:06→20:00)
[2021-07-12] MEDS: IPRATRPIUM/ALBUTEROL 0.5/2.5MG 3 ML NEBU. NEB SCH ×4 (07:06→20:00)
[2021-07-12] MEDS: INSULIN LISPRO 300 UNITS/3 ML VIAL. SQ SCH ×4 (07:30→21:20)
[2021-07-12] MEDS: FOLIC/VIT B COMP W-C (RENAL) TABLET. PO SCH (08:20)
[2021-07-12] MEDS: CALCIUM ACETATE 667 MG CAPSULE PO SCH ×3 (08:20→17:49)
[2021-07-12] MEDS: HYDROCORTISONE 10 MG TABLET PO SCH (08:20)
[2021-07-12] MEDS: FERROUS SULFATE 325 MG TABLET. PO SCH (08:20)
[2021-07-12] MEDS: ASCORBIC ACID 500 MG TABLET PO SCH (08:20)
[2021-07-12] MEDS: ASPIRIN CHEWABLE 81 MG TABLET. PO SCH (08:20)
[2021-07-12] MEDS: LACTOBACILLUS RHAMNOSUS GG 1 CAPSULE. PO SCH ×2 (08:21→20:54)
[2021-07-12 11:00] VITALS: BP 177/71
--- NOTE | 2021-07-12 11:01 | PDOC ---
[employer] PROGRESS NOTE Date of Service DOS: DATE: 07/12/21 TIME: 10:58 Chief Complaint Chief Complaint A/P: Acute encephalopathy - metabolic from his hypoglycemia, requiring corticosteroid stimulation Chronic nonhealing left heel wound - wound care PVD - on 06/20/2021 S/P Right below knee amputation, irrigation debridement of left tip of great toe, removal left great toenail and debridement of skin subcutaneous tissue left heel Anemia - of chronic renal insufficiency Generalized debility Chronic right upper extremity swelling status post fistulogram ESRD on HD - misses once per week fairly regularly.Will consult nephrology CAD with stent at [facility], LCx - taking meds, will cont Dm2 on insulin - very brittle historically, will reduce his home lantus to 8u. previously required D10 for hypoglycemia earlier this year HLD - cont statin Previous smoker Status post left hip repair recently for fracture. FEN - ADA diet PPX - heparin FULL CODE Dispo - inpatient History of Present Illness History of Present Illness Mr Ochoa is a 58 year old male w/ PMHx DM, ESRD, prior cardiac arrest who presents from SNF due to low blood sugar at facility unresponsive to IM glucagon. Patient's BG en route was 21 per EMS. Reported to them the patient had not been eating for the past several days however no other history is available. Patient is on 4 L of oxygen at baseline. No fever, nausea vomiting. Reports chest tightness and leg swelling. No other acute symptoms or complaints Historically glucose is very brittle and frequently has blood glucose in the 30s as well. He normally takes 16u lantus QHS and 11u lispro or regular insulin TID with meals. 07/10: Still not very responsive this morning glucose is currently 399. Very drowsy. Still hypoxic. Moving arms and legs. 07/11: After discontinuation of IV Cortef blood glucose dropped to 100. Changed to p.o. Cortef still requiring corticosteroid and stimulation for hypoglycemia. More alert today. WBC elevated likely due to corticosteroids. Patient with no complaints. Hb down to 7.8. Afebrile overnight. Tolerated dialysis well 1016. Glucose still labile 78 this morning and up to 300 in the afternoon despite cortef. Despite O2 saturations 98% he is encouraging staff to turn his oxygen up to 5 L. Left heel offloaded currently. Vitals/I&O Vitals/I&O: Vital Signs Date Time Temp Pulse Resp B/P (MAP) Pulse Ox O2 Delivery O2 Flow Rate FiO2 07/12/21 07:09 99 Nasal Cannula 3.0 07/12/21 07:00 97.6 64 17 164/72 (102) 97.6 I & O 07/11/21 07/11/21 07/12/21 15:00 23:00 07:00 Intake Total 400 ml 200 ml Balance 400 ml 200 ml Physical Exam General: Cooperative, No acute distress Heart: Regular rate Lungs: Clear Abdomen: Normal bowel sounds, Soft, No tenderness Extremities: No cyanosis Skin: No breakdown Labs Labs: Laboratory Tests Test 07/11/21 16:37 07/11/21 20:54 07/12/21 07:41 Glucose (Fingerstick) 338 mg/dL (70-99) 314 mg/dL (70-99) 78 mg/dL (70-99) Assessment and Plan Assessmemt and Plan Problems Medical Problems: (1) Anemia of renal disease Status: Acute (2) ESRD on dialysis Status: Acute (3) Hypokalemia Status: Acute Comment Review of Relevant I have reviewed the following items yesenia (where applicable) has been applied. Justifications for Admission Other Justification ESRD, fluid overload JIN ROBLES MD Jul 12, 2021 11:01
[2021-07-12] MEDS: ACETAMINOPHEN 325 MG TABLET. PO PRN (13:07)
--- NOTE | 2021-07-12 13:25 | PDOC ---
DATE OF SERVICE DATE: 07/12/21 TIME: 13:24 SUBJECTIVE ROS No complaints currently OBJECTIVE Vital Signs Vital Signs Date Time Temp Pulse Resp B/P (MAP) Pulse Ox O2 Delivery O2 Flow Rate FiO2 07/12/21 11:25 Nasal Cannula 3.0 07/12/21 11:00 97.8 65 18 177/71 (106) 98 97.8 I & 0 Intake and Output 07/12/21 07:00 Intake Total 600 ml Balance 600 ml Intake Oral 600 ml # Bowel Movements 4 PHYSICAL EXAM Physical Exam GENERAL: NAD HEENT: OM moist , On Chronic home O2 NECK: Supple. LUNGS: Decreased breath sounds at the bases, non labored HEART: S1, S2. ABDOMEN: Soft, nontender. EXTREMITIES: AVG Rt ; Rt BKA recent SKIN : No generalized rash, no enriquez DIAGNOSIS/ASSESSMENT Assessment & Plan ESRD - On HD MWF @ [facility] under Dr. Scanlon . Currently no indication for HD today Access - Rt arm AVF -- recent Fistulogram 06/23- Moderate stenoses at the junction of the previously stented cephalic vein and subclavian vein, as well as the subclavian vein in the right innominate vein treated with balloon angioplasty with improvement morphology and flow. Anemia Hgb 5.8 on 06/22 s/p PRBC; Hgb stable . Continue FABIAN Right heel wound, status post incision and drainage- s/p Irrigation debridement of right heel ulcer skin subcutaneous tissue and removal of right great toenail. S/P right below-knee amputation and left heel and great toe debridement on 06/19 Recent history Acute Lt Femoral neck displaced fracture s/p Lt Hip Repair COPD with home O2 dependency history of poorly controlled diabetes- Glucose 78 this morning and up to 300 in the afternoon despite cortef. Hypertension BP stable COMMENT/RELEVANT DATA Meds Current Medications Medications (Trade) Dose Ordered Sig/Celi Start Time Stop Time Status Last Admin Dose Admin Acetaminophen (Tylenol) 650 mg PRN Q6HRS PRN 07/09/21 14:45 07/12/21 13:07 650 MG Albumin Human 200 ml @ 200 mls/hr 1X PRN PRN 07/10/21 10:45 07/10/21 16:44 DC Albuterol Sulfate (Ventolin Hfa) 2 puff PRN Q4HRS PRN 07/10/21 08:15 07/10/21 08:37 2 PUFF Albuterol/ Ipratropium (Duoneb) 3 ml RTQID 07/09/21 16:00 07/12/21 11:24 3 ML Ascorbic Acid (Vitamin C) 500 mg DAILY 07/10/21 09:00 07/12/21 08:20 500 MG Aspirin (Aspirin Chewable) 81 mg DAILYWBKFT 07/10/21 08:00 07/12/21 08:20 81 MG Atorvastatin Calcium (Lipitor) 10 mg HS 07/09/21 21:00 07/11/21 19:57 10 MG Budesonide (Pulmicort) 0.5 mg RTBID 07/09/21 20:00 07/12/21 07:06 0.5 MG Calcium Acetate (Phoslo) 667 mg TIDWMEALS 07/09/21 17:00 07/12/21 13:07 667 MG Ceftriaxone Sodium (Rocephin) 1 gm 1X ONCE 07/09/21 14:45 07/09/21 14:51 DC 07/09/21 16:00 1 GM Dextrose 1,000 ml @ 75 mls/hr 1X ONCE 07/09/21 14:45 07/10/21 04:04 DC 07/09/21 20:35 75 MLS/HR Dextrose (Dextrose 50%-Water Syringe) 12.5 gm PRN Q15MIN PRN 07/09/21 14:45 07/09/21 17:40 12.5 GM Dextrose/Sodium Chloride 1,000 ml @ 75 mls/hr 1X ONCE 07/09/21 14:45 07/10/21 04:04 DC 07/09/21 14:45 75 MLS/HR Docusate Sodium (Colace) 100 mg PRN BID PRN 07/09/21 14:45 07/10/21 20:08 100 MG Epoetin Luís-epbx (RETACRIT for ESRD PTS) 10,000 unit MoWeFr@2100 07/10/21 21:00 07/10/21 20:41 10,000 UNIT Ferrous Sulfate (Feosol) 325 mg DAILY 07/10/21 09:00 07/12/21 08:20 325 MG Hydrocortisone (Cortef) 10 mg DAILYWBKFT 07/11/21 08:00 07/12/21 08:20 10 MG Hydrocortisone Sodium Succinate (Solu-CORTEF) 100 mg Q12HR 07/09/21 21:00 07/10/21 12:49 DC 07/10/21 08:14 100 MG Info (PHARMACY MONITORING -- do not chart) 1 each PRN DAILY PRN 07/10/21 10:45 Insulin Human Lispro (HumaLOG) 0-5 UNITS QIDACHS 07/09/21 16:30 07/12/21 13:11 2 UNITS Lactobacillus Rhamnosus (Culturelle) 1 cap BID 07/09/21 21:00 07/12/21 08:21 1 CAP Levothyroxine Sodium (Synthroid) 300 mcg DAILYAC 07/10/21 07:30 07/12/21 05:54 300 MCG Sodium Chloride 1,000 ml @ 400 mls/hr Q2H30M PRN 07/10/21 10:45 07/10/21 22:44 DC Vitamin B Complex/ Vitamin C (Madai-Sean) 1 tab DAILY 07/10/21 09:00 07/12/21 08:20 1 TAB Lab Laboratory Tests Test 07/11/21 16:37 07/11/21 20:54 07/12/21 07:41 07/12/21 12:34 Glucose (Fingerstick) 338 mg/dL (70-99) 314 mg/dL (70-99) 78 mg/dL (70-99) 161 mg/dL (70-99) Results All relevant outside records, renal labs, imaging studies, telemetry/EKG's were reviewed. Justicifation of Admission Dx: Justifications for Admission: Justification of Admission Dx: N/A REBECCA ANGLIN MD Jul 12, 2021 13:25
[2021-07-12 15:00] VITALS: BP 175/72
[2021-07-12 19:00] VITALS: BP 149/61
[2021-07-12] MEDS: ATORVASTATIN CALCIUM 10 MG TABLET. PO SCH (20:54)
[2021-07-12 23:00] VITALS: BP 175/72
[2021-07-13 03:10] VITALS: BP 166/64
[2021-07-13] MEDS: LEVOTHYROXINE 100 MCG TABLET PO SCH (05:43)
[2021-07-13 07:00] VITALS: BP 183/73
[2021-07-13] MEDS: BUDESONIDE 0.5 MG/2 ML NEBU. NEB SCH (07:25)
[2021-07-13] MEDS: IPRATRPIUM/ALBUTEROL 0.5/2.5MG 3 ML NEBU. NEB SCH ×2 (07:25→11:33)
[2021-07-13 08:13] LABS: CALCIUM 8.1 mg/dL (8.5-10.1); CREATININE 4.8 mg/dL (0.7-1.3); GFR 12.5; POTASSIUM 4.8 mmol/L (3.5-5.1)
[2021-07-13] MEDS: FOLIC/VIT B COMP W-C (RENAL) TABLET. PO SCH (08:30)
[2021-07-13] MEDS: HYDROCORTISONE 10 MG TABLET PO SCH (08:30)
[2021-07-13] MEDS: ASPIRIN CHEWABLE 81 MG TABLET. PO SCH (08:30)
[2021-07-13] MEDS: FERROUS SULFATE 325 MG TABLET. PO SCH (08:30)
[2021-07-13] MEDS: LACTOBACILLUS RHAMNOSUS GG 1 CAPSULE. PO SCH (08:31)
[2021-07-13] MEDS: CALCIUM ACETATE 667 MG CAPSULE PO SCH ×2 (08:31→12:07)
[2021-07-13] MEDS: ASCORBIC ACID 500 MG TABLET PO SCH (08:31)
[2021-07-13] MEDS: INSULIN LISPRO 300 UNITS/3 ML VIAL. SQ SCH ×2 (08:40→12:06)
--- NOTE | 2021-07-13 10:40 | NUR ---
[facility] following. Discussed with RN, pt from [facility], 4L, renal diet. Pt ready to discharge. [facility] faxed updates, awaiting discharge orders. COVID-19 negative. [facility] will continue to follow. Addendum: 07/13/21 at 1118 by JER WILDER Discharge orders faxed to [facility], transportation arranged by [facility] for 1500. RN notified.
[2021-07-13] MEDS ORDERED: INSU100V35 SQ (10:59)
[2021-07-13] MEDS ORDERED: HYDR10TA PO (10:59)
[2021-07-13 11:00] VITALS: BP 163/72
--- NOTE | 2021-07-13 11:00 | SNU/HH DC ---
DISCHARGE ORDERS DISCHARGE INFORMATION: DISCHARGE DATE: Jul 13, 2021 FINAL DIAGNOSIS Problems Medical Problems: (1) Anemia of renal disease Status: Acute (2) ESRD on dialysis Status: Acute (3) Hypokalemia Status: Acute CONDITION ON DISCHARGE: Stable CODE STATUS: Code Status: Full SNF: SNF STAY <30 DAYS: Yes POST DISCHARGE ORDERS: ACTIVITY ORDERS: Activity as tolerated WEIGHT BEARING STATUS: No restrictions, As tolerated BATHING ORDERS: Shower-keep dressing dry DIET AFTER DISCHARGE: Renal WOUND/INCISION CARE: Ice to area for comfort CHECKS AFTER DISCHARGE: CHECKS AFTER DISCHARGE: Check blood press - daily, Check blood sugar, ac/hs, Check your Temp as needed, Weigh Yourself Daily TREATMENT/EQUIPMENT ORDERS: ADAPTIVE EQUIPMENT NEEDED: Walker RESPIRATORY EQUIPMENT NEEDED: Oxygen, Nebulizer Physical Therapy For: Evalulation/Treatment Occupational Therapy For: Evaluation/Treatment Speech Language Pathology For: Evaluation/Treatment DISCHARGE MEDICATIONS: Home Meds Active Scripts Insulin Lispro (Admelog) 100 Unit/1 Ml Vial, 0-5 UNITS SQ QIDACHS for hyperglycemia for 30 Days, #1 VIAL Prov:JIN REYES MD 07/13/21 Hydrocortisone (CORTEF) 10 Mg Tablet, 10 MG PO DAILYWBKFT for hypoglycemia for 3 Days, #3 TAB Prov:JIN REYES MD 07/13/21 Hydrocodone Bit/Acetaminophen (HYDROCODONE-APAP 7.5-325 ) 1 Tab Tablet, 1 TAB PO PRN Q6HRS PRN for PAIN, #28 TAB 0 Refills Prov:JOSE TRAVIS MD 06/24/21 Ascorbic Acid (VITAMIN C) 500 Mg Tablet, 500 MG PO DAILY for SUPPLEMENT for 30 Days, #30 TAB Prov:PABLO SHERMAN MD 11/26/19 Folic Acid/Vitamin B Comp W-C (DORIE-CONSTANCE TABLET) 0.8 Mg Tablet, 1 TAB PO DAILY for SUPPLEMENT for 30 Days, #30 TAB Prov:PABLO SHERMAN MD 11/26/19 Docusate Sodium (DOK) 100 Mg Capsule, 100 MG PO PRN BID PRN for CONSTIPATION for 28 Days, #30 CAP Prov:PABLO SHERMAN MD 11/26/19 Lactobacillus Rhamnosus Gg (CULTURELLE) 1 Each Cap.sprink, 1 CAP PO BID for MATHIAS PPLEMENT for 30 Days, #60 CAP Prov:PABLO SHERMAN MD 09/13/19 Budesonide (BUDESONIDE) 0.5 Mg/2 Ml Ampul.neb, 0.5 MG NEB RTBID for copd for 30 Days, #60 EACH Prov:PABLO SHERMAN MD 08/29/18 Aspirin (ASPIRIN) 81 Mg Tab.chew, 81 MG PO DAILYWBKFT for heart health for 30 Days, #30 TAB.CHEW Prov:PABLO SHERMAN MD 08/29/18 Ipratropium/Albuterol Sulfate (DUONEB 0.5-3(2.5) MG/3 ML) 3 Ml Ampul.neb, 3 ML NEB RTQID for copd for 30 Days, #120 EACH Prov:PABLO SHERMAN MD 08/29/18 Reported Medications Levothyroxine Sodium (LEVOTHYROXINE SODIUM) 100 Mcg Tablet, 300 MCG PO DAILYAC for THYROID SUPPLEMENT, #30 TAB 0 Refills 06/16/21 Atorvastatin Calcium (ATORVASTATIN CALCIUM) 10 Mg Tablet, 10 MG PO HS for FOR CHOLESTEROL, #30 TAB 0 Refills 05/29/21 Magdalena-3 Fatty Acids/Fish Oil (OMEGA 3 FISH OIL SOFTGEL) 1 Each Capsule.dr, 1 EACH PO DAILY for supplement, CAP 11/07/18 Calcium Acetate (CALCIUM ACETATE) 667 Mg Tablet, 667 MG PO TIDWMEALS for DIALYSIS PATIENTS, CAP 11/07/18 Acetaminophen (TYLENOL) 325 Mg Tablet, 650 MG PO PRN Q6HRS for mild pain, TAB 10/02/18 Ferrous Sulfate (FERROUS SULFATE) 325 Mg Tablet, 1 TAB PO DAILY for Dialysis, #30 TAB 3 Refills 09/15/18 Discontinued Reported Medications Insulin Glargine,Hum.rec.anlog (LANTUS SOLOSTAR) 100 Unit/1 Ml Insuln.pen, 10 UNIT SQ QHS for hyperglycemia, #15 ML 3 Refills 06/16/21 Discontinued Scripts Insulin Lispro (Admelog) 100 Unit/1 Ml Vial, 0 UNITS SQ TIDWMEALS for diabetes for 30 Days, #2 EACH Prov:PABLO SHERMAN MD 07/31/20 JIN REYES MD Jul 13, 2021 11:00
--- NOTE | 2021-07-13 11:30 | PDOC ---
DATE OF SERVICE DATE: 07/13/21 TIME: 11:29 SUBJECTIVE ROS No complaints during dialysis Anticipating dc today after dialysis OBJECTIVE Vital Signs Vital Signs Date Time Temp Pulse Resp B/P (MAP) Pulse Ox O2 Delivery O2 Flow Rate FiO2 07/13/21 07:28 99 Nasal Cannula 3.0 07/13/21 07:00 98.0 74 17 183/73 (109) 98.0 I & 0 Intake and Output 07/13/21 07:00 Intake Total 1590 ml Balance 1590 ml Intake Oral 1590 ml # Voids 2 # Bowel Movements 1 PHYSICAL EXAM Physical Exam GENERAL: NAD HEENT: OM moist , On Chronic home O2 NECK: Supple. LUNGS: Decreased breath sounds at the bases, non labored HEART: S1, S2. ABDOMEN: Soft, nontender. EXTREMITIES: AVG Rt ; Rt BKA recent SKIN : No generalized rash, no enriquez DIAGNOSIS/ASSESSMENT Assessment & Plan ESRD - On HD MWF @ [facility] under Dr. Scanlon . Seen during dialysis, tolerating well. Continue as ordered.Fede Gordillo Access - Rt arm AVF -- recent Fistulogram 06/23- Moderate stenoses at the j unction of the previously stented cephalic vein and subclavian vein, as well as the subclavian vein in the right innominate vein treated with balloon angioplasty with improvement morphology and flow. Anemia Hgb 5.8 on 06/22 s/p PRBC; Hgb stable . Continue FABIAN Right heel wound, status post incision and drainage- s/p Irrigation debridement of right heel ulcer skin subcutaneous tissue and removal of right great toenail. S/P right below-knee amputation and left heel and great toe debridement on 06/19 Recent history Acute Lt Femoral neck displaced fracture s/p Lt Hip Repair COPD with home O2 dependency history of poorly controlled diabetes- Glucose 78 this morning and up to 300 in the afternoon despite cortef. Hypertension BP stable COMMENT/RELEVANT DATA Meds Current Medications Medications (Trade) Dose Ordered Sig/Celi Start Time Stop Time Status Last Admin Dose Admin Acetaminophen (Tylenol) 650 mg PRN Q6HRS PRN 07/09/21 14:45 07/12/21 13:07 650 MG Albumin Human 200 ml @ 200 mls/hr 1X PRN PRN 07/10/21 10:45 07/10/21 16:44 DC Albuterol Sulfate (Ventolin Hfa) 2 puff PRN Q4HRS PRN 07/10/21 08:15 07/10/21 08:37 2 PUFF Albuterol/ Ipratropium (Duoneb) 3 ml RTQID 07/09/21 16:00 07/13/21 07:25 3 ML Ascorbic Acid (Vitamin C) 500 mg DAILY 07/10/21 09:00 07/13/21 08:31 500 MG Aspirin (Aspirin Chewable) 81 mg DAILYWBKFT 07/10/21 08:00 07/13/21 08:30 81 MG Atorvastatin Calcium (Lipitor) 10 mg HS 07/09/21 21:00 07/12/21 20:54 10 MG Budesonide (Pulmicort) 0.5 mg RTBID 07/09/21 20:00 07/13/21 07:25 0.5 MG Calcium Acetate (Phoslo) 667 mg TIDWMEALS 07/09/21 17:00 07/13/21 08:31 667 MG Ceftriaxone Sodium (Rocephin) 1 gm 1X ONCE 07/09/21 14:45 07/09/21 14:51 DC 07/09/21 16:00 1 GM Dextrose 1,000 ml @ 75 mls/hr 1X ONCE 07/09/21 14:45 07/10/21 04:04 DC 07/09/21 20:35 75 MLS/HR Dextrose (Dextrose 50%-Water Syringe) 12.5 gm PRN Q15MIN PRN 07/09/21 14:45 07/09/21 17:40 12.5 GM Dextrose/Sodium Chloride 1,000 ml @ 75 mls/hr 1X ONCE 07/09/21 14:45 07/10/21 04:04 DC 07/09/21 14:45 75 MLS/HR Docusate Sodium (Colace) 100 mg PRN BID PRN 07/09/21 14:45 07/10/21 20:08 100 MG Epoetin Luís-epbx (RETACRIT for ESRD PTS) 10,000 unit MoWeFr@2100 07/10/21 21:00 07/10/21 20:41 10,000 UNIT Ferrous Sulfate (Feosol) 325 mg DAILY 07/10/21 09:00 07/13/21 08:30 325 MG Hydrocortisone (Cortef) 10 mg DAILYWBKFT 07/11/21 08:00 07/13/21 08:30 10 MG Hydrocortisone Sodium Succinate (Solu-CORTEF) 100 mg Q12HR 07/09/21 21:00 07/10/21 12:49 DC 07/10/21 08:14 100 MG Info (PHARMACY MONITORING -- do not chart) 1 each PRN DAILY PRN 07/10/21 10:45 Insulin Human Lispro (HumaLOG) 0-5 UNITS QIDACHS 07/09/21 16:30 07/13/21 08:40 3 UNITS Lactobacillus Rhamnosus (Culturelle) 1 cap BID 07/09/21 21:00 07/13/21 08:31 1 CAP Levothyroxine Sodium (Synthroid) 300 mcg DAILYAC 07/10/21 07:30 07/13/21 05:43 300 MCG Sodium Chloride 1,000 ml @ 400 mls/hr Q2H30M PRN 07/10/21 10:45 07/10/21 22:44 DC Vitamin B Complex/ Vitamin C (Madai-Sean) 1 tab DAILY 07/10/21 09:00 07/13/21 08:30 1 TAB Lab Laboratory Tests Test 07/12/21 12:34 07/12/21 16:26 07/12/21 21:15 07/13/21 06:30 Glucose (Fingerstick) 161 mg/dL (70-99) 258 mg/dL (70-99) 252 mg/dL (70-99) Sodium Level 137 mmol/L (136-145) Potassium Level 4.8 mmol/L (3.5-5.1) Chloride Level 100 mmol/L (98-107) Carbon Dioxide Level 28 mmol/L (21-32) Anion Gap 9 (6-14) Blood Urea Nitrogen 53 mg/dL (8-26) Creatinine 4.8 mg/dL (0.7-1.3) Estimated GFR (Cockcroft-Gault) 12.5 Glucose Level 190 mg/dL (70-99) Calcium Level 8.1 mg/dL (8.5-10.1) Test 07/13/21 07:57 07/13/21 11:02 Glucose (Fingerstick) 201 mg/dL (70-99) 162 mg/dL (70-99) Results All relevant outside records, renal labs, imaging studies, telemetry/EKG's were reviewed. Justicifation of Admission Dx: Justifications for Admission: Justification of Admission Dx: N/A REBECCA ANGLIN MD Jul 13, 2021 11:30
[2021-07-13] MEDS ORDERED: DIALYSIS PATIENT. MC PRN ×2 (15:45)
--- NOTE | 2021-07-13 16:22 | NUR ---
Discharge Note: SEBASTIAN ANGULO WMelissa [facility] Discharge instructions and discharge home medications reviewed with Elizabeth DUMONT [facility] resort facility and a copy given to the transport personnel. All questions have been answered and understanding verbalized. The following instructions and handouts were given: Wound care, hypoglycemia Meds as directed Follow up with PCP in a week Discontinued lines and drains: peripheral iV intact, patie t tolerated removal, no comp[lications noted. Patient discharged to Resort at via stretcher on 4 LPM NC at 1620.
== END 2021-07-13 16:20 | DRG 637 ==
LOC: ER 12:25 → ED HOLD 13:40 → 5 SOUTH 17:17
PROVIDERS: ADMIT Internal Medicine; ATTEND Internal Medicine
PROC: 5A1D70Z Performance of Urinary Filtration, Intermittent, Less than 6 Hours Per Day (ICD-10-PCS; 2021-07-10)
PROC: 5A1D70Z Performance of Urinary Filtration, Intermittent, Less than 6 Hours Per Day (ICD-10-PCS; principal; 2021-07-13)
DX: E11.649 Type 2 diabetes mellitus with hypoglycemia without coma (principal); G93.41 Metabolic encephalopathy; I12.0 Hypertensive chronic kidney disease with stage 5 chronic kidney disease or end stage renal disease; E87.70 Fluid overload, unspecified; N18.6 End stage renal disease; D64.9 Anemia, unspecified; E03.9 Hypothyroidism, unspecified; E78.00 Pure hypercholesterolemia, unspecified; E78.5 Hyperlipidemia, unspecified; E87.6 Hypokalemia; I25.10 Atherosclerotic heart disease of native coronary artery without angina pectoris; J44.9 Chronic obstructive pulmonary disease, unspecified; Z79.4 Long term (current) use of insulin; Z82.49 Family history of ischemic heart disease and other diseases of the circulatory system; Z83.3 Family history of diabetes mellitus; Z86.74 Personal history of sudden cardiac arrest; Z87.891 Personal history of nicotine dependence; Z89.511 Acquired absence of right leg below knee; Z95.5 Presence of coronary angioplasty implant and graft; Z99.2 Dependence on renal dialysis; E21.3 Hyperparathyroidism, unspecified; F32.A Depression, unspecified; K21.9 Gastro-esophageal reflux disease without esophagitis; E11.51 Type 2 diabetes mellitus with diabetic peripheral angiopathy without gangrene; E11.22 Type 2 diabetes mellitus with diabetic chronic kidney disease; R09.02 Hypoxemia
CPT/HCPCS: 36415; 71045; 80048; 80053; 82550; 82553; 82962; 83735; 83880; 84484; 85007; 85025; 86850; 86900; 86901; 87426; 93005; 94640; 94760; 96361; 96374; J0696; J1720; J1815; J3490; J7042; U0003; U0005; 99285-25; G0378; J7626

== ENCOUNTER 2021-07-30 14:22 | Inpatient (IN) | payer MEDICARE ==
[~2021-07-30] VITALS: Ht 175.3 cm; Wt 60.2 kg
[~2021-07-30 14:22] MED LIST changes: +HYDR10TA PO; +POTA-112 PO; -POTA10TA6 PO
[2021-07-30 17:31] VITALS: BP 141/61
[2021-07-30] MEDS ORDERED: DEXTROSE 50% 25 GM / 50ML DISP.SYRIN. IV PRN (17:45)
[2021-07-30] MEDS ORDERED: DOCUSATE SODIUM 100 MG CAPSULE. PO PRN (18:45)
[2021-07-30] MEDS ORDERED: ACETAMINOPHEN 325 MG TABLET. PO PRN (18:45)
[2021-07-30] MEDS ORDERED: HYDROcodone/APAP 7.5/325MG 1 TAB TABLET PO PRN (18:45)
[2021-07-30 19:00] VITALS: BP 153/65
[2021-07-30] MEDS: INSULIN LISPRO 300 UNITS/3 ML VIAL. SQ SCH (19:00)
[2021-07-30] MEDS: IPRATRPIUM/ALBUTEROL 0.5/2.5MG 3 ML NEBU. NEB SCH (20:38)
[2021-07-30] MEDS: BUDESONIDE 0.5 MG/2 ML NEBU. NEB SCH (20:38)
[2021-07-30 23:00] VITALS: BP 159/64
[2021-07-30] MEDS: LACTOBACILLUS RHAMNOSUS GG 1 CAPSULE. PO SCH (23:08)
[2021-07-30] MEDS: ATORVASTATIN CALCIUM 10 MG TABLET. PO SCH (23:08)
[2021-07-30] MEDS: CALCIUM ACETATE 667 MG CAPSULE PO SCH (23:08)
[2021-07-31 07:00] VITALS: BP 146/83
[2021-07-31] MEDS: INSULIN LISPRO 300 UNITS/3 ML VIAL. SQ SCH ×3 (08:00→17:00)
[2021-07-31] MEDS: IPRATRPIUM/ALBUTEROL 0.5/2.5MG 3 ML NEBU. NEB SCH ×4 (08:15→20:19)
[2021-07-31] MEDS: BUDESONIDE 0.5 MG/2 ML NEBU. NEB SCH ×2 (08:15→20:19)
[2021-07-31] MEDS: LEVOTHYROXINE 100 MCG TABLET PO SCH (09:59)
[2021-07-31] MEDS: ASCORBIC ACID 500 MG TABLET PO SCH (09:59)
[2021-07-31] MEDS: LACTOBACILLUS RHAMNOSUS GG 1 CAPSULE. PO SCH ×2 (09:59→21:39)
[2021-07-31] MEDS: OMEGA-3 FATTY ACIDS/FISH OIL 1,000 MG CAPSULE. PO SCH (09:59)
[2021-07-31] MEDS: ASPIRIN CHEWABLE 81 MG TABLET. PO SCH (09:59)
[2021-07-31] MEDS: FOLIC/VIT B COMP W-C (RENAL) TABLET. PO SCH (09:59)
[2021-07-31] MEDS: CALCIUM ACETATE 667 MG CAPSULE PO SCH ×3 (09:59→17:00)
[2021-07-31] MEDS: FERROUS SULFATE 325 MG TABLET. PO SCH (09:59)
[2021-07-31] MEDS: HYDROCORTISONE 10 MG TABLET PO SCH (09:59)
--- NOTE | 2021-07-31 10:03 | HP ---
DATE OF SERVICE: 07/31/2021 ADMIT DATE: 07/30/2021 HISTORY OF PRESENT ILLNESS: The patient is a 61-year-old male patient who was admitted on 07/29/2021 to [facility] Emergency Room where he was brought from the dialysis clinic after he finished hemodialysis and blood sugar was extremely low around 22 mg. He was treated aggressively in the Emergency Room where he had an IV line and given 50 mL of 50% dextrose and his blood sugar has risen to 266 and his [place] coma scale went up to 15. He was admitted to continue observation. His potassium was only 2.8; however, at that time, he just finished dialysis, so no supplements were given. Unfortunately, when I saw him yesterday morning with a plan for him to be discharged, his blood sugar continued to be somewhat low and he was markedly fluid overloaded. He was having cough with large amount of whitish sputum. His chest x-ray that he has, has pulmonary edema and has also right side pleural effusion and therefore instead of sending him to the [facility], I discharged him to [facility] as he continued to have need to adjustment of his insulin and also needs to be hemodialyzed. He also has right proximal humerus fracture that he did not know about initially, although later on he stated that he had a fall in April. When I saw him this morning, he continued to complain of shortness of breath, but denied any chest pain. He continued to have poor appetite and his blood sugar continued to be borderline. PAST MEDICAL HISTORY: Significant for chronic obstructive pulmonary disease; type 2 diabetes mellitus; end-stage renal failure, on hemodialysis Tuesday, Tuesday, Tuesday; has also peripheral vascular disease, status post right below-knee amputation. He has also pressure ulcers in left heel and multiple wounds on his left toes. PAST SURGICAL HISTORY: Significant for left hip replacement, arteriovenous fistula on his right arm and right below-knee amputation. FAMILY HISTORY: Positive for diabetes and hypertension. SOCIAL HISTORY: He is , lives with his . He does not smoke. He is an ex-smoker. Does not drink alcohol and was residing at [facility] for the last 2 months. REVIEW OF SYSTEMS: As per history of present illness. PHYSICAL EXAMINATION: GENERAL: When I saw him this morning, he was resting slightly propped up in bed, in no apparent distress. He was pale, cachectic, but not jaundiced or cyanosed. No lymphadenopathy. No thyromegaly. No jugular venous distention. No limb edema. VITAL SIGNS: His heart rate was 61, blood pressure was 146/83, temperature was 98.1, respiratory rate was 19 and oxygen saturation was 100% on 3 liters of oxygen. HEAD, EYES, EARS, NOSE, AND THROAT: Normocephalic, atraumatic. NECK: Supple. HEART: Normal first and second heart sounds. No gallop or murmur. CHEST: Shows central trachea, equally reduced expansion, reduced air entry, vesicular breath sounds with bilateral crepitation. Posteriorly, I could not appreciate any rhonchi. ABDOMEN: Distended, soft, nontender. NEUROLOGIC: He was awake, alert, responding slowly. All his cranial nerves intact. He moves all extremities without difficulty. He has right blow-knee amputation and left heel wound, multiple wounds in his left toes. LABORATORY DATA: Still pending at the time of this dictation. ASSESSMENT AND PLAN: In summary, this is a 61-year-old male patient with type 2 insulin-requiring diabetes mellitus with recurrent episode of hypoglycemia. The patient was on 20 units of NovoLog insulin before meals and 15 units of Lantus at bedtime. I discontinued his scheduled insulin and kept him on Lantus at 15 units at bedtime and start him on low dose sliding scale before meals only. Other medical problems include end-stage renal disease, on hemodialysis Tuesday, Tuesday, Tuesday. The patient continued to be fluid overloaded and probably needs to be dialyzed and decrease his dry weight. Other medical problems include peripheral vascular disease, status post right below-knee amputation, multiple wounds on his left foot, chronic obstructive pulmonary disease, anemia of chronic kidney disease. I have consulted the wound care team and the tool room machinist and decide the further management accordingly. CARLOS MARTIN: Linh TID: [id number]
[2021-07-31 10:25] LABS: HEMATOCRIT 24.2 % (39.0-53.0); HEMOGLOBIN 7.7 g/dL (13.0-17.5); RED BLOOD COUNT 2.59 x10^6/uL (4.30-5.70); RED CELL DISTRIBUTION WIDTH 21.3 % (11.5-14.5); WHITE BLOOD COUNT 4.9 x10^3/uL (4.0-11.0)
[2021-07-31 10:34] LABS: CREATININE 3.7 mg/dL (0.7-1.3); GFR 16.9
[2021-07-31 10:40] LABS: ALBUMIN 2.4 g/dL (3.4-5.0); ALBUMIN/GLOBULIN RATIO 0.6 (1.0-1.7); TOTAL BILIRUBIN 0.5 mg/dL (0.2-1.0); TOTAL PROTEIN 6.2 g/dL (6.4-8.2)
--- NOTE | 2021-07-31 10:50 | NUR ---
SW following. Discussed with RN, pt came from [facility]. SW spoke with Ignacia at [facility], plans were for pt to discharge home from [facility] yesterday, but pt ended up at [facility]. Pt has home oxygen, and no longer AMS per RN. Pt could potentially discharge sometime this weekend after receiving dialysis. SW will continue to follow.
[2021-07-31 11:00] VITALS: BP 147/99
--- NOTE | 2021-07-31 11:00 | NUR ---
PATIENTS BLOOD SUGAR 60 AT THIS TIME, PATIENT USING HIS PERSONAL GLUCOSE MONITORING MACHINE TO CHECK HIS BLOOD SUGARS, WILL VERIFY IF THIS IS OK WITH . APPLE JUICE GIVEN (2 CONTAINERS) PATIENT IS ALERT AND WITH S/S OF HYPOGLYCEMIA.
--- NOTE | 2021-07-31 11:15 | NUR ---
PATIENTS' BLOOD SUGAR 64, 1/2 AMP IV DEXTROSE GIVEN IV PER PROTOCOL FLUIDS OFFERED, PATIENT CONSUMED 1 CONTAINER OF APPLE JUICE.
--- NOTE | 2021-07-31 11:30 | NUR ---
PATIENTS' BLOOD SUGAR 120, PATIENT ALERT AND VERBALLY RESPONSIVE, NO INSULIN GIVEN AT THIS TIME, WILL MONITOR.
--- NOTE | 2021-07-31 13:05 | PDOC2 ---
CONSULT Date of Consult Date of Consult DATE: 07/31/21 TIME: 12:59 Reason for Consult Reason for Consult: ESRD Source Source: Chart review, Patient History of Present Illness Reason for Visit: Patient is a a 61-year-old male who was admitted on 07/29/2021 to [facility] Emergency Room where he was brought from the dialysis clinic after he finished hemodialysis and blood sugar was extremely low around 22 mg. He was treated aggressively in the Emergency Room where he had an IV line and given 50 mL of 50% dextrose and his blood sugar has risen to 266 and his [place] coma scale went up to 15. He was admitted to continue observation. Next day with a plan for him to be discharged, his blood sugar continued to be low and he was markedly fluid overloaded per primary 's Evaluation He was having cough with large amount of whitish sputum. His chest x-ray that he has, has pulmonary edema and has also right side pleural effusion , he is transferred to [facility] Currently sleeping comfortable, arousable. No complaints. Denies CP, SOB, No N/V Past Medical History Cardiovascular: CAD, HTN, Hyperlipidemia Pulmonary: Other GI: GERD Heme/Onc: Anemia NOS Psych: Depression Renal/: Chronic renal failure Endocrine: Diabetes, Hypothyroidism, Hyperparathyroidism Past Surgical History Past Surgical History: Other Family History Family History: Diabetes, Hypertension Social History ALCOHOL: none Drugs: None Lives: with Family Current Medications Current Medications Current Medications Insulin Human Lispro (HumaLOG) 0-5 UNITS TIDWMEALS SQ ; Start 07/30/21 at 19:00 Dextrose (Dextrose 50%-Water Syringe) 12.5 gm PRN Q15MIN PRN IV SEE COMMENTS Last administered on 07/31/21at 12:23; Start 07/30/21 at 17:45 Acetaminophen (Tylenol) 650 mg PRN Q6HRS PRN PO MILD PAIN / TEMP > 100.3'F; Start 07/30/21 at 18:45 Ascorbic Acid (Vitamin C) 500 mg DAILY PO Last administered on 07/31/21at 09:59; Start 07/31/21 at 09:00 Aspirin (Aspirin Chewable) 81 mg DAILYWBKFT PO Last administered on 07/31/21at 09:59; Start 07/31/21 at 08:00 Atorvastatin Calcium (Lipitor) 10 mg HS PO Last administered on 07/30/21at 23:08; Start 07/30/21 at 21:00 Budesonide (Pulmicort) 0.5 mg RTBID NEB Last administered on 07/30/21at 20:38; Start 07/30/21 at 20:00 Docusate Sodium (Colace) 100 mg PRN BID PRN PO HARD STOOLS; Start 07/30/21 at 18:45 Ferrous Sulfate (Feosol) 325 mg DAILY PO Last administered on 07/31/21at 09:59; Start 07/31/21 at 09:00 Vitamin B Complex/ Vitamin C (Madai-Sean) 1 tab DAILY PO Last administered on 07/31/21 09:59; Start 07/31/21 at 09:00 Acetaminophen/ Hydrocodone Bitart (Lortab 7.5/325) 1 tab PRN Q6HRS PRN PO MODERATE-SEVERE PAIN; Start 07/30/21 at 18:45 Hydrocortisone (Cortef) 10 mg DAILYWBKFT PO Last administered on 07/31/21at 09:59; Start 07/31/21 at 08:00 Albuterol/ Ipratropium (Duoneb) 3 ml RTQID NEB Last administered on 07/31/21at 11:45; Start 07/30/21 at 20:00 Lactobacillus Rhamnosus (Culturelle) 1 cap BID PO Last administered on 07/31/21 09:59; Start 07/30/21 at 21:00 Levothyroxine Sodium (Synthroid) 300 mcg DAILYAC PO Last administered on 07/31/21 09:59; Start 07/31/21 at 07:30 Calcium Acetate (Phoslo) 667 mg TIDWMEALS PO Last administered on 07/31/21 09:59; Start 07/30/21 at 19:00 Fish Oil (Fish Oil) 1,000 mg DAILY PO Last administered on 07/31/21 09:59; Start 07/31/21 at 09:00 Active Scripts Active Admelog (Insulin Lispro) 100 Unit/1 Ml Vial 0-5 Units SQ QIDACHS 30 Days Cortef (Hydrocortisone) 10 Mg Tablet 10 Mg PO DAILYWBKFT 3 Days Hydrocodone-Apap 7.5-325 (Hydrocodone Bit/Acetaminophen) 1 Tab Tablet 1 Tab PO PRN Q6HRS PRN Vitamin C (Ascorbic Acid) 500 Mg Tablet 500 Mg PO DAILY 30 Days Madai-Sean Tablet (Folic Acid/Vitamin B Comp W-C) 0.8 Mg Tablet 1 Tab PO DAILY 30 Days Dok (Docusate Sodium) 100 Mg Capsule 100 Mg PO PRN BID PRN 28 Days Culturelle (Lactobacillus Rhamnosus Gg) 1 Each Cap.sprink 1 Cap PO BID 30 Days Budesonide 0.5 Mg/2 Ml Ampul.neb 0.5 Mg NEB RTBID 30 Days Aspirin 81 Mg Tab.chew 81 Mg PO DAILYWBKFT 30 Days Duoneb 0.5-3(2.5) Mg/3 Ml (Albuterol/Ipratropium) 3 Ml Ampul.neb 3 Ml NEB RTQID 30 Days Reported Levothyroxine Sodium 100 Mcg Tablet 300 Mcg PO DAILYAC Atorvastatin Calcium 10 Mg Tablet 10 Mg PO HS [place] 3 Fish Oil Softgel ([place]-3 Fatty Acids/Fish Oil) 1 Each Capsule.dr 1 Each PO DAILY Calcium Acetate 667 Mg Tablet 667 Mg PO TIDWMEALS Tylenol (Acetaminophen) 325 Mg Tablet 650 Mg PO PRN Q6HRS Ferrous Sulfate 325 Mg Tablet 1 Tab PO DAILY Allergies Allergies: Coded Allergies: No Known Drug Allergies (Unverified , 06/16/21) ROS Review of System As per HPI, rest of the ROS is negative Physical Exam Physical Exam GENERAL: NAD HEENT: OM moist , On Chronic home O2 NECK: Supple. LUNGS: Decreased breath sounds at the bases, non labored HEART: S1, S2. ABDOMEN: Soft, nontender. EXTREMITIES: AVG Rt ; Rt BKA recent SKIN : No generalized rash, no enriquez Vital Signs Vital Signs Date Time Temp Pulse Resp B/P (MAP) Pulse Ox O2 Delivery O2 Flow Rate FiO2 07/31/21 11:46 99 Nasal Cannula 3.0 07/31/21 11:00 98.1 61 18 147/99 (115) 98.1 Assessment & Plan ESRD - On HD MWF @ [facility] under Dr. Scanlon . Dialysis today , discussed treatment plan with [facility] - Rt arm AVF -- recent Fistulogram 06/23- Moderate stenoses at the junction of the previously stented cephalic vein and subclavian vein, as well as the subclavian vein in the right innominate vein treated with balloon angioplasty with improvement morphology and flow. Anemia Hgb stable, required PRBC at previous admission . Continue FABIAN HypoGlycemia- Hx of DM on Isulin. Primary managing Hx of Right heel wound, - s/p Irrigation debridement of right heel ulcer skin subcutaneous tissue and removal of right great toenail. S/P right below-knee amputation and left heel and great toe debridement on 06/19 Recent history Acute Lt Femoral neck displaced fracture s/p Lt Hip Repair COPD with home O2 dependency history of poorly controlled diabetes Hypertension BP stable Labs Labs Laboratory Tests Test 07/31/21 10:14 White Blood Count 4.9 x10^3/uL (4.0-11.0) Red Blood Count 2.59 x10^6/uL (4.30-5.70) Hemoglobin 7.7 g/dL (13.0-17.5) Hematocrit 24.2 % (39.0-53.0) Mean Corpuscular Volume 93 fL (79-100) Mean Corpuscular Hemoglobin 30 pg (25-35) Mean Corpuscular Hemoglobin Concent 32 g/dL (31-37) Red Cell Distribution Width 21.3 % (11.5-14.5) Platelet Count 172 x10^3/uL (140-400) Sodium Level 138 mmol/L (136-145) Potassium Level 4.0 mmol/L (3.5-5.1) Chloride Level 99 mmol/L (98-107) Carbon Dioxide Level 33 mmol/L (21-32) Anion Gap 6 (6-14) Blood Urea Nitrogen 24 mg/dL (8-26) Creatinine 3.7 mg/dL (0.7-1.3) Estimated GFR (Cockcroft-Gault) 16.9 BUN/Creatinine Ratio 6 (6-20) Glucose Level 58 mg/dL (70-99) Calcium Level 8.0 mg/dL (8.5-10.1) Total Bilirubin 0.5 mg/dL (0.2-1.0) Aspartate Amino Transf (AST/SGOT) 12 U/L (15-37) Alanine Aminotransferase (ALT/SGPT) 20 U/L (16-63) Alkaline Phosphatase 240 U/L (46-116) Total Protein 6.2 g/dL (6.4-8.2) Albumin 2.4 g/dL (3.4-5.0) Albumin/Globulin Ratio 0.6 (1.0-1.7) Laboratory Tests Test 07/31/21 10:14 White Blood Count 4.9 x10^3/uL (4.0-11.0) Red Blood Count 2.59 x10^6/uL (4.30-5.70) Hemoglobin 7.7 g/dL (13.0-17.5) Hematocrit 24.2 % (39.0-53.0) Mean Corpuscular Volume 93 fL (79-100) Mean Corpuscular Hemoglobin 30 pg (25-35) Mean Corpuscular Hemoglobin Concent 32 g/dL (31-37) Red Cell Distribution Width 21.3 % (11.5-14.5) Platelet Count 172 x10^3/uL (140-400) Sodium Level 138 mmol/L (136-145) Potassium Level 4.0 mmol/L (3.5-5.1) Chloride Level 99 mmol/L (98-107) Carbon Dioxide Level 33 mmol/L (21-32) Anion Gap 6 (6-14) Blood Urea Nitrogen 24 mg/dL (8-26) Creatinine 3.7 mg/dL (0.7-1.3) Estimated GFR (Cockcroft-Gault) 16.9 BUN/Creatinine Ratio 6 (6-20) Glucose Level 58 mg/dL (70-99) Calcium Level 8.0 mg/dL (8.5-10.1) Total Bilirubin 0.5 mg/dL (0.2-1.0) Aspartate Amino Transf (AST/SGOT) 12 U/L (15-37) Alanine Aminotransferase (ALT/SGPT) 20 U/L (16-63) Alkaline Phosphatase 240 U/L (46-116) Total Protein 6.2 g/dL (6.4-8.2) Albumin 2.4 g/dL (3.4-5.0) Albumin/Globulin Ratio 0.6 (1.0-1.7) Review All relevant outside records, renal labs, imaging studies, telemetry/EKG's were reviewed. REBECCA ANGLIN MD Jul 31, 2021 13:04
[2021-07-31] MEDS ORDERED: DIALYSIS PATIENT. MC PRN (14:30)
[2021-07-31] MEDS ORDERED: IV NORMAL SALINE 1000ML BAG 1,000 ML IV PRN ×2 (14:30)
--- NOTE | 2021-07-31 15:49 | NUR ---
Wound/Ostomy Care Wound Type/Assessment: Wound consult for multiple wounds to left foot. Pt has Dry eschar to great toe and 4th toe. Pt has soft eschar to left posterior heel. Measured, assessed and redressed wounds. Treatment Recommendations/Plan: Cleanse wounds. Apply betadine to left great toe and 4th toe daily. Apply honey alginate and foam to left heel every 2-3 days. Education provided: Offloading, WC POC, PU prevention Offloading surface/device: Heel medix boot, TQ2H, float BKA and heel at all times. Recommended Referrals/Tests: May need imaging on left heel, will reassess on Tuesday with Dr Becker after eschar has softened Discharge Recommendations for dressings: see above
--- NOTE | 2021-07-31 16:50 | NUR ---
PATIENT IN DIALYSIS AT THIS TIME, HIGHWAY ENGINEERING TEACHER REPORTS THAT PATIENTS' BLOOD SUGAR AT THIS TIME IS 81 PER HOSPITAL GLUCOMETER, PATIENTS BLOOD SUGAR PER HIS DEXACON MACHINE 92.
[2021-07-31 19:00] VITALS: BP 167/67
[2021-07-31] MEDS: ATORVASTATIN CALCIUM 10 MG TABLET. PO SCH (21:39)
[2021-07-31] MEDS: EPOETIN ALFA-EPBX for ESRD 20,000 UNIT/ML VIAL. SQ SCH (21:40)
[2021-07-31 23:00] VITALS: BP 174/68
[2021-08-01 03:00] VITALS: BP 176/74
[2021-08-01 07:00] VITALS: BP 163/62
[2021-08-01] MEDS: IPRATRPIUM/ALBUTEROL 0.5/2.5MG 3 ML NEBU. NEB SCH ×4 (07:29→20:50)
[2021-08-01] MEDS: BUDESONIDE 0.5 MG/2 ML NEBU. NEB SCH ×2 (07:29→20:50)
[2021-08-01] MEDS: INSULIN LISPRO 300 UNITS/3 ML VIAL. SQ SCH ×3 (07:45→17:06)
[2021-08-01] MEDS: CALCIUM ACETATE 667 MG CAPSULE PO SCH ×3 (08:26→17:03)
[2021-08-01] MEDS: OMEGA-3 FATTY ACIDS/FISH OIL 1,000 MG CAPSULE. PO SCH (08:26)
[2021-08-01] MEDS: ASPIRIN CHEWABLE 81 MG TABLET. PO SCH (08:26)
[2021-08-01] MEDS: ASCORBIC ACID 500 MG TABLET PO SCH (08:26)
[2021-08-01] MEDS: HYDROCORTISONE 10 MG TABLET PO SCH (08:26)
[2021-08-01] MEDS: LACTOBACILLUS RHAMNOSUS GG 1 CAPSULE. PO SCH ×2 (08:26→20:21)
[2021-08-01] MEDS: FOLIC/VIT B COMP W-C (RENAL) TABLET. PO SCH (08:26)
[2021-08-01] MEDS: FERROUS SULFATE 325 MG TABLET. PO SCH (08:26)
[2021-08-01] MEDS: LEVOTHYROXINE 100 MCG TABLET PO SCH (08:27)
[2021-08-01 11:00] VITALS: BP 173/65
--- NOTE | 2021-08-01 14:27 | PN ---
DATE: 08/01/2021 SUBJECTIVE: The patient is resting, slightly propped up in bed, eating his breakfast comfortably, in no apparent distress. On questioning him, he denied any complaint. Nursing staff did not voice any concerns that he had an eventful night. He was dialyzed yesterday and took 3 liters of fluid. His blood sugar continues to be on the lower side. I did discontinue his Lantus and NovoLog insulin. He is now on insulin sliding scale before meals only. Did consult the assistant restaurant general manager as well as the Wound Care Team. PHYSICAL EXAMINATION: GENERAL: When I saw him this morning, he looked pale, cachectic, but no jaundiced or cyanosed. No lymphadenopathy, no thyromegaly, no jugular venous distention. No limb edema. VITAL SIGNS: His heart rate was 64, blood pressure was 163/62, temperature 98.8, respiratory rate was 18 and oxygen saturation was 100% on 4 liters of oxygen. HEAD, EYES, EARS, NOSE, AND THROAT: Normocephalic, atraumatic. NECK: Supple. HEART: Normal first and second heart sounds, no gallop or murmur. CHEST: Shows central trachea, equally reduced chest expansion, reduced air entry, vesicular breath sounds with bilateral basal crepitation posteriorly. I could not really appreciate any rhonchi or wheezing. ABDOMEN: Scaphoid, soft, nontender. NEUROLOGIC: He is awake, alert, responding appropriately. All his cranial nerves intact. He moves upper extremities without difficulty. He has right below-knee amputation and multiple wounds on left toes. His intake and output are incompletely recorded. LABORATORY DATA: As of yesterday, his serum sodium was 138, potassium 4, chloride 99, bicarbonate 33, anion gap of 6, BUN 24, creatinine 3.7. Estimated GFR was 17 mL per minute. His glucose was 58, calcium was 8. Total bilirubin, AST, ALT were normal. Alkaline phosphatase slightly elevated. Total protein 6.2, albumin was 2.4, his white cell count was 4900, hemoglobin 7.7, hematocrit 24, MCV 93, and platelet count of 172,000. ASSESSMENT: 1 Recurrent episodes of hypoglycemia, for which I have discontinued his Humalog insulin as well as his Lantus. He is now on insulin sliding scale before meals. Blood sugar continued to be on the lower side. 2. End-stage renal disease, on hemodialysis on Tuesday, Tuesday, Tuesday. He was actually dialyzed yesterday and 3 liters of fluid were ultrafiltrated. 3. Other medical problems include coronary artery disease, hypertension, hyperlipidemia, gastroesophageal reflux disease, anemia of chronic kidney disease, type 2 diabetes, hypothyroidism and hyperparathyroidism. He has also multiple wounds. PLAN: To continue to monitor his blood sugar and adjust insulin as needed. Continue with wound care. He is now on Retacrit 10,000 units on Tuesday, Tuesday, Tuesday. Continue with levothyroxine for his hypothyroidism. JOSH/JUAN LUIS DR: Linh TID: [id number]
--- NOTE | 2021-08-01 14:33 | PDOC ---
DATE OF SERVICE DATE: 08/01/21 TIME: 14:32 SUBJECTIVE ROS Stable OBJECTIVE Vital Signs Vital Signs Date Time Temp Pulse Resp B/P (MAP) Pulse Ox O2 Delivery O2 Flow Rate FiO2 08/01/21 11:14 Nasal Cannula 3.0 08/01/21 11:00 98.5 65 20 173/65 (101) 99 98.5 I & 0 Intake and Output 08/01/21 07:00 Intake Total 620 ml Balance 620 ml Intake Oral 620 ml # Bowel Movements 2 PHYSICAL EXAM Physical Exam GENERAL: NAD HEENT: OM moist , On Chronic home O2 NECK: Supple. LUNGS: Decreased breath sounds at the bases, non labored HEART: S1, S2. ABDOMEN: Soft, nontender. EXTREMITIES: AVG Rt ; Rt BKA recent SKIN : No generalized rash, no enriquez DIAGNOSIS/ASSESSMENT Assessment & Plan ESRD - On HD MWF @ [facility] under Dr. Scanlon . No indication today Access - Rt arm AVF -- recent Fistulogram 06/23/21- Moderate stenoses at the junction of the previously stented cephalic vein and subclavian vein, as well as the subclavian vein in the right innominate vein treated with balloon angioplasty with improvement morphology and flow. Anemia Hgb stable, required PRBC at previous admission . Continue FABIAN HypoGlycemia- Hx of DM on Isulin. Primary managing Hx of Right heel wound, - s/p Irrigation debridement of right heel ulcer skin subcutaneous tissue and removal of right great toenail. S/P right below-knee amputation and left heel and great toe debridement on 06/19 Recent history Acute Lt Femoral neck displaced fracture s/p Lt Hip Repair COPD with home O2 dependency history of poorly controlled diabetes Hypertension BP stable COMMENT/RELEVANT DATA Meds Current Medications Medications (Trade) Dose Ordered Sig/Celi Start Time Stop Time Status Last Admin Dose Admin Acetaminophen (Tylenol) 650 mg PRN Q6HRS PRN 07/30/21 18:45 Acetaminophen/ Hydrocodone Bitart (Lortab 7.5/325) 1 tab PRN Q6HRS PRN 07/30/21 18:45 Albuterol/ Ipratropium (Duoneb) 3 ml RTQID 07/30/21 20:00 08/01/21 11:12 3 ML Ascorbic Acid (Vitamin C) 500 mg DAILY 07/31/21 09:00 08/01/21 08:26 500 MG Aspirin (Aspirin Chewable) 81 mg DAILYWBKFT 07/31/21 08:00 08/01/21 08:26 81 MG Atorvastatin Calcium (Lipitor) 10 mg HS 07/30/21 21:00 07/31/21 21:39 10 MG Budesonide (Pulmicort) 0.5 mg RTBID 07/30/21 20:00 08/01/21 07:29 0.5 MG Calcium Acetate (Phoslo) 667 mg TIDWMEALS 07/30/21 19:00 08/01/21 12:08 667 MG Dextrose (Dextrose 50%-Water Syringe) 12.5 gm PRN Q15MIN PRN 07/30/21 17:45 07/31/21 12:23 12.5 GM Docusate Sodium (Colace) 100 mg PRN BID PRN 07/30/21 18:45 Epoetin Luís-epbx (RETACRIT for ESRD PTS) 10,000 unit MoWeFr@2100 07/31/21 21:00 07/31/21 21:40 10,000 UNIT Ferrous Sulfate (Feosol) 325 mg DAILY 07/31/21 09:00 08/01/21 08:26 325 MG Fish Oil (Fish Oil) 1,000 mg DAILY 07/31/21 09:00 08/01/21 08:26 1,000 MG Hydrocortisone (Cortef) 10 mg DAILYWBKFT 07/31/21 08:00 08/01/21 08:26 10 MG Info (PHARMACY MONITORING -- do not chart) 1 each PRN DAILY PRN 07/31/21 14:30 Insulin Human Lispro (HumaLOG) 0-5 UNITS TIDWMEALS 07/30/21 19:00 Lactobacillus Rhamnosus (Culturelle) 1 cap BID 07/30/21 21:00 08/01/21 08:26 1 CAP Levothyroxine Sodium (Synthroid) 300 mcg DAILYAC 07/31/21 07:30 08/01/21 08:27 300 MCG Sodium Chloride 1,000 ml @ 400 mls/hr Q2H30M PRN 07/31/21 14:30 08/01/21 02:29 DC Vitamin B Complex/ Vitamin C (Madai-Sean) 1 tab DAILY 07/31/21 09:00 08/01/21 08:26 1 TAB Lab Laboratory Tests Test 07/31/21 16:50 Glucose (Fingerstick) 81 mg/dL (70-99) Results All relevant outside records, renal labs, imaging studies, telemetry/EKG's were reviewed. Justicifation of Admission Dx: Justifications for Admission: Justification of Admission Dx: N/A REBECCA ANGLIN MD Aug 01, 2021 14:33
[2021-08-01 15:00] VITALS: BP 180/72
[2021-08-01 19:00] VITALS: BP 170/73
[2021-08-01] MEDS: ATORVASTATIN CALCIUM 10 MG TABLET. PO SCH (20:21)
--- NOTE | 2021-08-01 22:15 | NUR ---
HS blood sugar 240 per pt's own continuous glucose monitoring machine. Educated pt that if machine alarms for low glucose to let staff know.
[2021-08-01 23:00] VITALS: BP 173/71
[2021-08-02 03:07] VITALS: BP 189/81
[2021-08-02 07:00] VITALS: BP 177/79
[2021-08-02] MEDS: BUDESONIDE 0.5 MG/2 ML NEBU. NEB SCH ×2 (07:35→21:00)
[2021-08-02] MEDS: IPRATRPIUM/ALBUTEROL 0.5/2.5MG 3 ML NEBU. NEB SCH ×4 (07:35→21:00)
[2021-08-02] MEDS: INSULIN LISPRO 300 UNITS/3 ML VIAL. SQ SCH ×4 (08:00→18:18)
[2021-08-02] MEDS: CALCIUM ACETATE 667 MG CAPSULE PO SCH ×3 (09:06→18:15)
[2021-08-02] MEDS: FOLIC/VIT B COMP W-C (RENAL) TABLET. PO SCH (09:06)
[2021-08-02] MEDS: HYDROCORTISONE 10 MG TABLET PO SCH (09:06)
[2021-08-02] MEDS: ASPIRIN CHEWABLE 81 MG TABLET. PO SCH (09:07)
[2021-08-02] MEDS: LACTOBACILLUS RHAMNOSUS GG 1 CAPSULE. PO SCH ×2 (09:07→21:01)
[2021-08-02] MEDS: ASCORBIC ACID 500 MG TABLET PO SCH (09:07)
[2021-08-02] MEDS: FERROUS SULFATE 325 MG TABLET. PO SCH (09:07)
[2021-08-02] MEDS: OMEGA-3 FATTY ACIDS/FISH OIL 1,000 MG CAPSULE. PO SCH (09:07)
[2021-08-02] MEDS: LEVOTHYROXINE 100 MCG TABLET PO SCH (09:07)
[2021-08-02 11:00] VITALS: BP 175/75
--- NOTE | 2021-08-02 12:49 | PDOC ---
DATE OF SERVICE DATE: 08/02/21 TIME: 12:48 SUBJECTIVE ROS Stable OBJECTIVE Vital Signs Vital Signs Date Time Temp Pulse Resp B/P (MAP) Pulse Ox O2 Delivery O2 Flow Rate FiO2 08/02/21 11:16 Nasal Cannula 3.0 08/02/21 07:36 100 08/02/21 07:00 97.4 67 18 177/79 (111) 97.4 I & 0 Intake and Output 08/02/21 06:59 Intake Total 440 ml Output Total 0 ml Balance 440 ml Intake Oral 440 ml Output Urine Total 0 ml # Bowel Movements 2 PHYSICAL EXAM Physical Exam GENERAL: NAD HEENT: OM moist , On Chronic home O2 NECK: Supple. LUNGS: Decreased breath sounds at the bases, non labored HEART: S1, S2. ABDOMEN: Soft, nontender. EXTREMITIES: AVG Rt ; Rt BKA recent SKIN : No generalized rash, no enriquez DIAGNOSIS/ASSESSMENT Assessment & Plan ESRD - On HD MWF @ [facility] under Dr. Scanlon . No indication today Access - Rt arm AVF -- recent Fistulogram 06/23/21- Moderate stenoses at the junction of the previously stented cephalic vein and subclavian vein, as well as the subclavian vein in the right innominate vein treated with balloon angioplasty with improvement morphology and flow. Anemia Hgb stable, required PRBC at previous admission . Continue FABIAN HypoGlycemia- Hx of DM on Isulin. Primary managing Hx of Right heel wound, - s/p Irrigation debridement of right heel ulcer skin subcutaneous tissue and removal of right great toenail. S/P right below-knee amputation and left heel and great toe debridement on 06/19 Recent history Acute Lt Femoral neck displaced fracture s/p Lt Hip Repair COPD with home O2 dependency history of poorly controlled diabetes Hypertension BP stable COMMENT/RELEVANT DATA Meds Current Medications Medications (Trade) Dose Ordered Sig/Celi Start Time Stop Time Status Last Admin Dose Admin Acetaminophen (Tylenol) 650 mg PRN Q6HRS PRN 07/30/21 18:45 Acetaminophen/ Hydrocodone Bitart (Lortab 7.5/325) 1 tab PRN Q6HRS PRN 07/30/21 18:45 Albuterol/ Ipratropium (Duoneb) 3 ml RTQID 07/30/21 20:00 08/02/21 11:15 3 ML Ascorbic Acid (Vitamin C) 500 mg DAILY 07/31/21 09:00 08/02/21 09:07 500 MG Aspirin (Aspirin Chewable) 81 mg DAILYWBKFT 07/31/21 08:00 08/02/21 09:07 81 MG Atorvastatin Calcium (Lipitor) 10 mg HS 07/30/21 21:00 08/01/21 20:21 10 MG Budesonide (Pulmicort) 0.5 mg RTBID 07/30/21 20:00 08/02/21 07:35 0.5 MG Calcium Acetate (Phoslo) 667 mg TIDWMEALS 07/30/21 19:00 08/02/21 09:06 667 MG Dextrose (Dextrose 50%-Water Syringe) 12.5 gm PRN Q15MIN PRN 07/30/21 17:45 07/31/21 12:23 12.5 GM Docusate Sodium (Colace) 100 mg PRN BID PRN 07/30/21 18:45 Epoetin Luís-epbx (RETACRIT for ESRD PTS) 10,000 unit MoWeFr@2100 07/31/21 21:00 07/31/21 21:40 10,000 UNIT Ferrous Sulfate (Feosol) 325 mg DAILY 07/31/21 09:00 08/02/21 09:07 325 MG Fish Oil (Fish Oil) 1,000 mg DAILY 07/31/21 09:00 08/02/21 09:07 1,000 MG Hydrocortisone (Cortef) 10 mg DAILYWBKFT 07/31/21 08:00 08/02/21 09:06 10 MG Info (PHARMACY MONITORING -- do not chart) 1 each PRN DAILY PRN 07/31/21 14:30 Insulin Human Lispro (HumaLOG) 0-5 UNITS TIDWMEALS 07/30/21 19:00 08/01/21 17:06 5 UNITS Lactobacillus Rhamnosus (Culturelle) 1 cap BID 07/30/21 21:00 08/02/21 09:07 1 CAP Levothyroxine Sodium (Synthroid) 300 mcg DAILYAC 07/31/21 07:30 08/02/21 09:07 300 MCG Sodium Chloride 1,000 ml @ 400 mls/hr Q2H30M PRN 07/31/21 14:30 08/01/21 02:29 DC Vitamin B Complex/ Vitamin C (Madai-Sean) 1 tab DAILY 07/31/21 09:00 08/02/21 09:06 1 TAB Results All relevant outside records, renal labs, imaging studies, telemetry/EKG's were reviewed. Justicifation of Admission Dx: Justifications for Admission: Justification of Admission Dx: N/A REBECCA ANGLIN MD Aug 02, 2021 12:49
--- NOTE | 2021-08-02 13:52 | PN ---
DATE: 08/02/2021 SUBJECTIVE: The patient is resting, slightly propped up in bed, in no apparent respiratory distress, sleeping comfortably. On questioning him, he denied any complaint. The nursing staff did not voice any concern, stated that he had uneventful night. PHYSICAL EXAMINATION: GENERAL: When I examined him, he looked pale, cachectic, but not jaundiced, cyanosed, no lymphadenopathy, no thyromegaly, no jugular venous distention. No limb edema. VITAL SIGNS: His heart rate was 67, blood pressure was 177/79, temperature was 97.4, respiratory rate was 18 and oxygen saturation was 100% on 3 liters of oxygen. HEAD, EYES, EARS, NOSE, AND THROAT: Normocephalic, atraumatic. NECK: Supple. HEART: Normal first and second heart sounds. No gallop, rub or murmur. CHEST: Clear to auscultation. No crepitation or rhonchi. ABDOMEN: Scaphoid, soft, nontender. NEUROLOGIC: He was sleepy, but arousable. All cranial nerves were intact. He moved his upper extremities without difficulty. Had right below-knee amputation and multiple wounds on his left foot and toes. His intake was 620. No output was recorded. ASSESSMENT: 1. Recurrent episodes of hypoglycemia for which I discontinued his NovoLog and Lantus and he is now on sliding scale insulin before meals only. 2. End-stage renal failure, on hemodialysis on Tuesday, Tuesday and Tuesday. 3. Anemia of chronic kidney disease. His hemoglobin and hematocrit were 7.7 and 24.2. 4. Severe peripheral vascular disease, status post right below-knee amputation. 5. The patient has multiple other medical problems including: A. Coronary artery disease. B. Hypertension. C. Hyperlipidemia. D. Gastroesophageal reflux disease. E. Type 2 diabetes mellitus. F. Hypothyroidism. G. Hyperparathyroidism. PLAN: To continue to monitor his blood sugar and adjust insulin as needed. I will repeat all his lab work tomorrow. He is scheduled to be dialyzed tomorrow. I did consult also the wound care team and he remained stable. The patient might be transferred back to [facility]. CLAIRE DR: Linh TID: [id number]
--- NOTE | 2021-08-02 14:28 | NUR ---
Nurse's note: The patient refused fingerstick glucose, prefers to use his machine. Pre-breakfast blood glucose was 200, prelunch 170. Addendum: 08/02/21 at 1707 by LELO ALFARO RN mayra tineo-[facility]
[2021-08-02 15:00] VITALS: BP_SYST 104; BP_SYST 119; BP_DIAS 76; BP_DIAS 77
--- NOTE | 2021-08-02 16:57 | NUR ---
Nurse's note: The patient has diarrhea, 3 BMs noted this shift. C diff test requested per protocol.
[2021-08-02 19:00] VITALS: BP 202/89
[2021-08-02] MEDS: ATORVASTATIN CALCIUM 10 MG TABLET. PO SCH (21:01)
--- NOTE | 2021-08-02 21:24 | NUR ---
HS blood sugar 342 per pt's continuous glucose monitor. Pt just finished eating dinner. Will monitor throughout the night.
[2021-08-02 23:02] VITALS: BP 201/89
[2021-08-03 03:02] VITALS: BP 198/95
[2021-08-03 07:00] VITALS: BP 192/90
[2021-08-03] MEDS: BUDESONIDE 0.5 MG/2 ML NEBU. NEB SCH ×2 (07:11→19:48)
[2021-08-03] MEDS: IPRATRPIUM/ALBUTEROL 0.5/2.5MG 3 ML NEBU. NEB SCH ×4 (07:11→20:48)
[2021-08-03 07:22] LABS: ALBUMIN 2.7 g/dL (3.4-5.0); ALBUMIN/GLOBULIN RATIO 0.7 (1.0-1.7); CALCIUM 8.1 mg/dL (8.5-10.1); CREATININE 5.4 mg/dL (0.7-1.3); GFR 10.9; POTASSIUM 4.2 mmol/L (3.5-5.1); TOTAL BILIRUBIN 0.5 mg/dL (0.2-1.0); TOTAL PROTEIN 6.6 g/dL (6.4-8.2)
[2021-08-03] MEDS: ASCORBIC ACID 500 MG TABLET PO SCH (09:17)
[2021-08-03] MEDS: LEVOTHYROXINE 100 MCG TABLET PO SCH (09:17)
[2021-08-03] MEDS: FERROUS SULFATE 325 MG TABLET. PO SCH (09:19)
[2021-08-03] MEDS: LACTOBACILLUS RHAMNOSUS GG 1 CAPSULE. PO SCH ×2 (09:19→20:27)
[2021-08-03] MEDS: CALCIUM ACETATE 667 MG CAPSULE PO SCH ×3 (09:19→17:20)
[2021-08-03] MEDS: OMEGA-3 FATTY ACIDS/FISH OIL 1,000 MG CAPSULE. PO SCH (09:19)
[2021-08-03] MEDS: FOLIC/VIT B COMP W-C (RENAL) TABLET. PO SCH (09:20)
[2021-08-03] MEDS: ASPIRIN CHEWABLE 81 MG TABLET. PO SCH (09:20)
[2021-08-03] MEDS: HYDROCORTISONE 10 MG TABLET PO SCH (09:20)
[2021-08-03] MEDS: INSULIN LISPRO 300 UNITS/3 ML VIAL. SQ SCH ×3 (09:25→17:22)
--- NOTE | 2021-08-03 09:26 | NUR ---
Patient refused to get his finger stick for a blood sugar, patient stated to use his continuous glucose monitor and it was 321 this AM before breakfast.
--- NOTE | 2021-08-03 10:32 | PN ---
DATE: 08/03/2021 SUBJECTIVE: The patient is resting, slightly propped up in bed, in no apparent distress. He is definitely more awake, alert. On questioning him, he denied any complaint, however, the nursing staff stated that he has had multiple loose bowel movements. He is now in isolation to rule out Clostridium difficile colitis. He will be scheduled for dialysis afternoon. Blood sugar is up today and has been at 318 mg/dL and he is on insulin sliding scale. I spoke with our social group worker and he remained stable. He will be discharged home with home health tomorrow. PHYSICAL EXAMINATION: GENERAL: When I saw him this morning, he was pale, cachectic, but no jaundice, cyanosis or thyromegaly. No jugular venous distention. No limb edema. VITAL SIGNS: His heart rate was 76, blood pressure was 192/90, temperature 98.3, respiratory rate was 16 and oxygen saturation was 93% on 4 liters of oxygen. HEAD, EYES, EARS, NOSE, AND THROAT: Normocephalic, atraumatic. NECK: Supple. HEART: Showed normal first and second heart sounds, no gallop, rub or murmur. CHEST: Clear to auscultation, no crepitation or rhonchi. ABDOMEN: Distended, soft, nontender. NEUROLOGIC: He is definitely more awake, alert, responding appropriately. All cranial nerves intact. He moves upper extremities much greater than his lower extremities. He is mostly bedbound. He has right below-knee amputation and he has multiple wounds on his left foot. ASSESSMENT: 1. Hypoglycemia, resolving. His blood sugar is now trending upward. In fact this morning, his blood sugar was 318 mg/dL. I did add Lantus 10 units at bedtime and continue ____ insulin sliding scale. 2. End-stage renal failure, on hemodialysis Tuesday, Tuesday, Tuesday. He is scheduled for hemodialysis today. 3. Anemia of chronic kidney disease. His hemoglobin and hematocrit are 7.7 and 24. 4. Severe peripheral vascular disease, status post right below-knee amputation. 5. The patient has multiple other medical problems including: A. Coronary artery disease. B. Hypertension is suboptimally controlled. C. Hyperlipidemia. D. Gastroesophageal reflux disease. E. Type 2 diabetes mellitus that is very brittle. F. Hypothyroidism. G. Hyperparathyroidism. I will start him on amlodipine. I have added Lantus 10 units at bedtime and might have to increase the dose to 10 mg if the blood pressure continues to be high. CARLOS DR: Linh TID: [id number]
--- NOTE | 2021-08-03 10:40 | PDOC ---
Renal-Progress Notes Subjective Notes Notes NO NEW COMPLAINTS History of Present Illness Hx of present illness STABLE, CONFUSED Vitals Vitals Vital Signs Date Time Temp Pulse Resp B/P (MAP) Pulse Ox O2 Delivery O2 Flow Rate FiO2 08/03/21 07:13 95 Nasal Cannula 4.0 08/03/21 07:00 98.3 76 16 192/90 (124) 98.3 Weight Weight [ ] I.O. Intake and Output Intake and Output 08/03/21 07:00 Output Total 0 ml Balance 0 ml Output Urine Total 0 ml # Voids 2 # Bowel Movements 2 Labs Labs Laboratory Tests Test 08/03/21 05:40 Hemoglobin 8.4 g/dL (13.0-17.5) Sodium Level 140 mmol/L (136-145) Potassium Level 4.2 mmol/L (3.5-5.1) Chloride Level 102 mmol/L (98-107) Carbon Dioxide Level 30 mmol/L (21-32) Anion Gap 8 (6-14) Blood Urea Nitrogen 39 mg/dL (8-26) Creatinine 5.4 mg/dL (0.7-1.3) Estimated GFR (Cockcroft-Gault) 10.9 BUN/Creatinine Ratio 7 (6-20) Glucose Level 318 mg/dL (70-99) Calcium Level 8.1 mg/dL (8.5-10.1) Total Bilirubin 0.5 mg/dL (0.2-1.0) Aspartate Amino Transf (AST/SGOT) 13 U/L (15-37) Alanine Aminotransferase (ALT/SGPT) 18 U/L (16-63) Alkaline Phosphatase 248 U/L (46-116) Total Protein 6.6 g/dL (6.4-8.2) Albumin 2.7 g/dL (3.4-5.0) Albumin/Globulin Ratio 0.7 (1.0-1.7) Review of Systems Constitutional: yes: other (CONFUSED) Physical Exam General Appearance: no apparent distress Skin: warm Respiratory: decreased breath sounds Heart: S1S2 Abdomen: soft, bowel sounds present Genitourinary: bladder flat Extremities: atrophy Neurology: alert, confused Assessment Assessment IMP HYPOGLYCEMIA ESRD ANEMIA DM II PAD CAD HTN PLAN HD TODAY UF TO TW FABIAN NEEDED WILL FOLLOW LAM ATKINS MD Aug 03, 2021 10:40
[2021-08-03 11:00] VITALS: BP 180/82
--- NOTE | 2021-08-03 11:34 | NUR ---
SW following. Discussed with RN, pt from home with spouse, uses oxygen at home. MEÑO received a voicemail from [facility] stating pt is on services with them. Dr. Angel planning for possible discharge home tomorrow. MEÑO will continue to follow.
[2021-08-03] MEDS ORDERED: ALBUMIN HUMAN 25% 200 ML IV PRN (13:00)
[2021-08-03] MEDS ORDERED: DIALYSIS PATIENT. MC PRN (13:00)
--- NOTE | 2021-08-03 14:52 | NUR ---
Wound/Ostomy Care Wound Type/Assessment: Wound follow up with Yuridia Rodriguez APRN for multiple wounds to left foot. Pt has Dry eschar to great toe and 4th toe. Pt has soft eschar to left posterior heel. Measured, assessed and redressed wounds. Treatment Recommendations/Plan: Cleanse wounds. Apply betadine to left great toe and 4th toe daily. Apply honey alginate and foam to left heel every 2-3 days. Education provided: Offloading, WC POC, PU prevention Offloading surface/device: Heel medix boot, TQ2H, float BKA and heel at all times. Recommended Referrals/Tests: imaging ordered on left heel Discharge Recommendations for dressings: see above
[2021-08-03 19:00] VITALS: BP 174/74
[2021-08-03] MEDS: EPOETIN ALFA-EPBX for ESRD 20,000 UNIT/ML VIAL. SQ SCH (20:27)
[2021-08-03] MEDS: ATORVASTATIN CALCIUM 10 MG TABLET. PO SCH (20:27)
[2021-08-03] MEDS ORDERED: INSULIN GLARGINE SYRINGE. SQ SCH (21:00)
[2021-08-03] MEDS: VANCOMYCIN 125 MG/2.5 ML ORAL SOLUTION. PO SCH (21:47)
[2021-08-03 22:40] VITALS: BP 169/72
[2021-08-04 03:00] VITALS: BP 152/69
[2021-08-04 07:00] VITALS: BP 167/78
[2021-08-04] MEDS: INSULIN LISPRO 300 UNITS/3 ML VIAL. SQ SCH ×2 (08:00→12:22)
[2021-08-04] MEDS: FOLIC/VIT B COMP W-C (RENAL) TABLET. PO SCH (08:34)
[2021-08-04] MEDS: LACTOBACILLUS RHAMNOSUS GG 1 CAPSULE. PO SCH (08:34)
[2021-08-04] MEDS: LEVOTHYROXINE 100 MCG TABLET PO SCH (08:34)
[2021-08-04] MEDS: FERROUS SULFATE 325 MG TABLET. PO SCH (08:35)
[2021-08-04] MEDS: CALCIUM ACETATE 667 MG CAPSULE PO SCH ×2 (08:35→12:17)
[2021-08-04] MEDS: OMEGA-3 FATTY ACIDS/FISH OIL 1,000 MG CAPSULE. PO SCH (08:35)
[2021-08-04] MEDS: ASCORBIC ACID 500 MG TABLET PO SCH (08:35)
[2021-08-04] MEDS: ASPIRIN CHEWABLE 81 MG TABLET. PO SCH (08:35)
[2021-08-04] MEDS: HYDROCORTISONE 10 MG TABLET PO SCH (08:36)
[2021-08-04] MEDS: BUDESONIDE 0.5 MG/2 ML NEBU. NEB SCH (08:55)
[2021-08-04] MEDS: IPRATRPIUM/ALBUTEROL 0.5/2.5MG 3 ML NEBU. NEB SCH ×3 (08:55→15:52)
[2021-08-04] MEDS: VANCOMYCIN 125 MG/2.5 ML ORAL SOLUTION. PO SCH ×2 (09:37→12:19)
[2021-08-04] MEDS ORDERED: VANC125C3 PO (09:46)
[2021-08-04] MEDS ORDERED: INSU100I13 SQ (09:46)
[2021-08-04] MEDS ORDERED: HYDR-2763 PO (09:46)
--- NOTE | 2021-08-04 09:53 | SNU/HH DC ---
DISCHARGE WITH HOME HEALTH DISCHARGE INFORMATION: Discharge Date: Aug 04, 2021 Final Diagnosis: recurrent episodes of hypoglycemia C DIFF COLITIS ESRD on HD Anemia of ckd Condition on Discharge: Stable CODE STATUS: Code Status: Full HOME HEALTH: Face to Face: I certify this patient is under my care and that I, or a nurse practitioner or physician's office assistant working with me, had a face to face encounter that meets the physician face to face encounter requirements with this patient on 08/04/2021 Prison For: Admin/Educate Injections, Medication Management RN For Eval/Treatment: Yes Physical Therapy For: Evalulation/Treatment Occupational Therapy For: Evaluation/Treatment Pt Meets Homebound Status: Extreme weakness w/ amb. POST DISCHARGE ORDERS: Activity Instructions for Disc: Activity as tolerated Weight Bearing Status after Di: As tolerated Bathing Instructions: Shower-keep dressing dry DIET AFTER DISCHARGE: Renal Wound/Incision Care: Change dressing CHECKS AFTER DISCHARGE: Checks after discharge: Check blood press - daily, Check blood sugar, ac/hs, Check your Temp as needed, Weigh Yourself Daily TREATMENT/EQUIPMENT ORDERS: Adaptive Equipment Issued: Walker Discharge Respiratory Equipmen: Oxygen CERTIFICATION STATEMENT: Certification Statement: Certification Statement: Based on the above finding, I certify that this patient is confined to the home and needs intermittent residential care, physical therapy and/or speech therapy, or continues to need occupational therapy.~ This patient is under my care, and I have initiated the establishment of the plan of care.~ This patient will be followed by myself or a community physician who will periodically review the plan of care. Home Meds Active Scripts Hydrocodone/Acetaminophen (Hydrocodone-Acetamin 7.5-325) 1 Each Tablet, 1 EACH PO Q6H for pain for 7 Days, #28 TAB Prov:RENETTA CINTRON MD 08/04/21 Vancomycin Hcl (VANCOMYCIN HCL) 125 Mg Capsule, 1 CAP PO QID for c diff colitis for 14 Days, #56 CAP 0 Refills Prov:RENETTA CINTRON MD 08/04/21 Insulin Glargine,Hum.rec.anlog (LANTUS SOLOSTAR) 100 Unit/1 Ml Insuln.pen, 10 UNIT SQ QHS for dm, #15 ML 3 Refills Prov:RENETTA CINTRON MD 08/04/21 Insulin Lispro (Admelog) 100 Unit/1 Ml Vial, 0-5 UNITS SQ QIDACHS for hyperglycemia for 30 Days, #1 VIAL Prov:JIN REYES MD 07/13/21 Hydrocortisone (CORTEF) 10 Mg Tablet, 10 MG PO DAILYWBKFT for hypoglycemia for 3 Days, #3 TAB Prov:JIN REYES MD 07/13/21 Ascorbic Acid (VITAMIN C) 500 Mg Tablet, 500 MG PO DAILY for SUPPLEMENT for 30 Days, #30 TAB Prov:PABLO SHERMAN MD 11/26/19 Folic Acid/Vitamin B Comp W-C (DORIE-CONSTANCE TABLET) 0.8 Mg Tablet, 1 TAB PO DAILY for SUPPLEMENT for 30 Days, #30 TAB Prov:PABLO SHERMAN MD 11/26/19 Docusate Sodium (DOK) 100 Mg Capsule, 100 MG PO PRN BID PRN for CONSTIPATION for 28 Days, #30 CAP Prov:PABLO SHERMAN MD 11/26/19 Lactobacillus Rhamnosus Gg (CULTURELLE) 1 Each Cap.sprink, 1 CAP PO BID for SUPPLEMENT for 30 Days, #60 CAP Prov:PABLO SHERMAN MD 09/13/19 Budesonide (BUDESONIDE) 0.5 Mg/2 Ml Ampul.neb, 0.5 MG NEB RTBID for copd for 30 Days, #60 EACH Prov:PABLO SHERMAN MD 08/29/18 Aspirin (ASPIRIN) 81 Mg Tab.chew, 81 MG PO DAILYWBKFT for heart health for 30 Days, #30 TAB.CHEW Prov:PABLO SHERMAN MD 08/29/18 Ipratropium/Albuterol Sulfate (DUONEB 0.5-3(2.5) MG/3 ML) 3 Ml Ampul.neb, 3 ML NEB RTQID for copd for 30 Days, #120 EACH Prov:PABLO SHERMAN MD 08/29/18 Reported Medications Levothyroxine Sodium (LEVOTHYROXINE SODIUM) 100 Mcg Tablet, 300 MCG PO DAILYAC for THYROID SUPPLEMENT, #30 TAB 0 Refills 06/16/21 Atorvastatin Calcium (ATORVASTATIN CALCIUM) 10 Mg Tablet, 10 MG PO HS for FOR CHOLESTEROL, #30 TAB 0 Refills 05/29/21 Blue Eye-3 Fatty Acids/Fish Oil (OMEGA 3 FISH OIL SOFTGEL) 1 Each Capsule.dr, 1 EACH PO DAILY for supplement, CAP 11/07/18 Calcium Acetate (CALCIUM ACETATE) 667 Mg Tablet, 667 MG PO TIDWMEALS for DIALYSIS PATIENTS, CAP 11/07/18 Acetaminophen (TYLENOL) 325 Mg Tablet, 650 MG PO PRN Q6HRS for mild pain, TAB 10/02/18 Ferrous Sulfate (FERROUS SULFATE) 325 Mg Tablet, 1 TAB PO DAILY for Dialysis, #30 TAB 3 Refills 09/15/18 Discontinued Scripts Hydrocodone Bit/Acetaminophen (HYDROCODONE-APAP 7.5-325 ) 1 Tab Tablet, 1 TAB PO PRN Q6HRS PRN for PAIN, #28 TAB 0 Refills Prov:JOSE TRAVIS MD 06/24/21 RENETTA CINTRON MD Aug 04, 2021 09:53
--- NOTE | 2021-08-04 10:32 | PDOC ---
Renal-Progress Notes Subjective Notes Notes NO NEW COMPLAINTS History of Present Illness Hx of present illness STABLE Vitals Vitals Vital Signs Date Time Temp Pulse Resp B/P (MAP) Pulse Ox O2 Delivery O2 Flow Rate FiO2 08/04/21 08:55 97 Nasal Cannula 3.0 08/04/21 08:35 71 167/78 08/04/21 07:00 98.4 16 98.4 Weight Weight [ ] I.O. Intake and Output Intake and Output 08/04/21 07:00 # Bowel Movements 5 Labs Labs Laboratory Tests Test 08/03/21 19:20 Glucose (Fingerstick) 210 mg/dL (70-99) Review of Systems Constitutional: yes: weakness, alert Ears/Nose/Throat: Yes: no symptom reported Eyes: Yes: no symptom reported Pulmonary: Yes no symptom reported Cardiovascular: Yes no symptom reported Gastrointestional: Yes: constipation Genitourinary: Yes: no symptom reported Musculoskeletal: Yes: no symptom reported Skin: Yes no symptom reported Psychiatric/Neurological: Yes: no symptom reported Endocrine: Yes: no symptom reported Physical Exam General Appearance: no apparent distress Skin: warm Respiratory: decreased breath sounds Heart: S1S2 Abdomen: soft, bowel sounds present Genitourinary: bladder flat Extremities: atrophy Neurology: alert, oriented Assessment Assessment IMP HYPOGLYCEMIA ESRD ANEMIA DM II PAD CAD HTN PLAN HD MWF FABIAN NEEDED WILL FOLLOW D/C PLANS WITH LAM CLAUDIO MD Aug 04, 2021 10:32
[2021-08-04 11:00] VITALS: BP 189/84
--- NOTE | 2021-08-04 12:48 | NUR ---
SW following. Discussed with RN, pt from home with spouse, discharge order for home with home health. SW faxed clinicals and discharge orders to [facility]. [place] [facility] [place]. RN notified. Pt is a high risk readmission.
[2021-08-04 15:00] VITALS: BP 176/80
--- NOTE | 2021-08-04 15:00 | NUR ---
Nurse's note Patient's blood sugar today: pre BF-90, Prelunch 165
--- NOTE | 2021-08-04 16:40 | NUR ---
Discharge Note: SEBASTIAN ANGULO W5 [facility] Discharge instructions and discharge home medications reviewed with the patient and his , and a copy given. All questions have been answered and understanding verbalized. Wound pictures taken prior to discharge. The following instructions and handouts were given: Written prescriptions for vancomycin and lantus Other home meds as directed Hemodialysis as scheduled Handout on C diff colitis, hypoglycemia Daily wound care--left foot Left leg and heel, change dressing every 2-3 days. Follow up with PCP in weeks Discontinued lines and drains: peripheral IV intact, no complications noted Patient discharged to home with [facility] via stretcher on 3 L oxygen accompanied by the [facility] at 1602.
== END 2021-08-04 16:02 | disposition home health service (06) | DRG 638 ==
LOC: 5 SOUTH 14:22
PROVIDERS: ADMIT Internal Medicine; ATTEND Internal Medicine
PROC: 5A1D70Z Performance of Urinary Filtration, Intermittent, Less than 6 Hours Per Day (ICD-10-PCS; principal; 2021-07-31)
PROC: 5A1D70Z Performance of Urinary Filtration, Intermittent, Less than 6 Hours Per Day (ICD-10-PCS; 2021-08-03)
DX: E11.649 Type 2 diabetes mellitus with hypoglycemia without coma (principal); I12.0 Hypertensive chronic kidney disease with stage 5 chronic kidney disease or end stage renal disease; J81.1 Chronic pulmonary edema; J90 Pleural effusion, not elsewhere classified; E11.51 Type 2 diabetes mellitus with diabetic peripheral angiopathy without gangrene; N18.6 End stage renal disease; D63.1 Anemia in chronic kidney disease; E03.9 Hypothyroidism, unspecified; E11.22 Type 2 diabetes mellitus with diabetic chronic kidney disease; E21.3 Hyperparathyroidism, unspecified; E78.5 Hyperlipidemia, unspecified; E87.70 Fluid overload, unspecified; I25.10 Atherosclerotic heart disease of native coronary artery without angina pectoris; J44.9 Chronic obstructive pulmonary disease, unspecified; K21.9 Gastro-esophageal reflux disease without esophagitis; Z78.9 Other specified health status; Z79.4 Long term (current) use of insulin; F32.A Depression, unspecified; Z82.49 Family history of ischemic heart disease and other diseases of the circulatory system; Z83.3 Family history of diabetes mellitus; Z87.891 Personal history of nicotine dependence; Z89.511 Acquired absence of right leg below knee; Z91.81 History of falling; Z96.642 Presence of left artificial hip joint; Z99.2 Dependence on renal dialysis
CPT/HCPCS: 36415; 80053; 82962; 85018; 85027; 87493; 94640; 94760; J1815; G0378; J7626

== ENCOUNTER 2021-08-13 14:14 | Inpatient (IN) | payer MEDICARE ==
[~2021-08-13] VITALS: Ht 175.3 cm; Wt 64.8 kg
[~2021-08-13 14:14] MED LIST changes: +HYDR-2763 PO; +VANC125C3 PO
[2021-08-13 15:15] VITALS: BP 152/62
--- NOTE | 2021-08-13 15:30 | NUR ---
received from home. at bedside. reviewed medications. states she does not give the Lantus unless his blood sugar is greater than 300. he does take a sliding scale if greater than 200. has a av shunt in right upper arm that has a good bruit and thrill. he is a hemodialysis patient that goes on . [facility]; went to wound clinic and WC admitted for a diabetic ulcer on his left heel and Left great toe. Pictures on the chart. He was here 2 weeks ago. consult to Dr. Rubalcava called. Dr. Wills no longer information security consultant. Dr. Diaz paged overhead.
[2021-08-13] MEDS ORDERED: FURO80TA3 PO (15:37)
[2021-08-13] MEDS ORDERED: LISI20TA18 PO (15:37)
--- NOTE | 2021-08-13 16:45 | NUR ---
Wound/Ostomy Care Wound Type/Assessment: Pt seen in wound care clinic for follow up on left heel DFU, left great toe DFU and left leg VLU, coccyx wound has now resolve, coccyx is red but blanchable with no open areas. Wound care has been following up in inpatient and outpatient settings. Pt and states that pt has been home for about 2 weeks, recently [facility] where he was being followed by out nurse practitioner Yuridia Ontiveros. Upon assessment and bedside debridement and YUE Shi found that pt had bone exposed to left heel and pt was advised to be admitted for further evaluation by vascular team. Pt and agreeable to POC. Dr. Wills accepted this pt. All wounds were cleansed, measured and pictured. Pictures, wound care dressing orders and extra dressings were sent with pt to provide to staff nurse. Report given to TIM Jolley. Treatment Recommendations/Plan: Cleanse all wound with saline and pat dry. Left heel: cover with Iodoflex (remove white mesh prior to applying), then cover with foam or abd and kerlix, change every 2-3 days. Left great toe: cover with hydrofera blue ready, then cover with foam and tape, change every 2-3 days. Left lateral leg: cover with contact layer and foam, change every 2-3 days. Coccyx: apply calazime cream bid and prn for protection Education provided: Pt educated on the importance of using his heel medix boot at all time and to keep pressure off that heel, turning q2h to avoid reopening coccyx wound. Reinforcement will probably be needed as pt is known to be non-complaint. Offloading surface/device: heel medix boots, pillows, purple wedge, P500 bed Recommended Referrals/Tests: vascular surgery for possible debridement of left heel diabetic wound Discharge Recommendations for dressings: Same as above, follow vascular surgery orders once they have evaluated pt.
[2021-08-13] MEDS ORDERED: ELECTROLYTE (NON-ICU) PROTOCOL. MC PRN (17:45)
[2021-08-13] MEDS ORDERED: ACETAMINOPHEN 325 MG TABLET. PO PRN (17:45)
[2021-08-13] MEDS ORDERED: ONDANSETRON PF 4 MG/2 ML VIAL. IVP PRN (17:45)
[2021-08-13] MEDS ORDERED: MORPHINE SULFATE 2 MG/ML INJ. IV PRN (17:45)
[2021-08-13] MEDS ORDERED: CALCIUM CARBONATE 500 MG TAB.CHEW PO PRN (17:45)
--- NOTE | 2021-08-13 18:00 | NUR ---
Dr. Diaz placed orders. Dr. Rubalcava called and will be in the am to see. blood sugar is 172. meal ordered. awakened to eat, doesn't want to eat. o2 on at 3l. states he does not void
[2021-08-13] MEDS: FUROSEMIDE 80 MG TABLET. PO SCH (18:25)
[2021-08-13 19:00] VITALS: BP 143/61
[2021-08-13] MEDS: BUDESONIDE 0.5 MG/2 ML NEBU. NEB SCH (20:00)
[2021-08-13] MEDS: ATORVASTATIN CALCIUM 10 MG TABLET. PO SCH (20:15)
[2021-08-13] MEDS: HEPARIN for SUB-Q USE 5,000 UNIT/ML VIAL. SQ SCH (20:16)
[2021-08-13] MEDS: SENNOSIDES/DOCUSATE 8.6/50MG TABLET. PO SCH (20:18)
[2021-08-13] MEDS: INSULIN GLARGINE SYRINGE. SQ SCH (21:35)
[2021-08-13 23:22] VITALS: BP 157/63
[2021-08-14 03:00] VITALS: BP 153/62
[2021-08-14] MEDS: HEPARIN for SUB-Q USE 5,000 UNIT/ML VIAL. SQ SCH ×3 (05:56→21:27)
[2021-08-14 07:00] VITALS: BP 152/65
[2021-08-14] MEDS: BUDESONIDE 0.5 MG/2 ML NEBU. NEB SCH ×2 (08:00→20:00)
[2021-08-14] MEDS: CALCIUM ACETATE 667 MG CAPSULE PO SCH ×3 (08:40→17:37)
[2021-08-14] MEDS: LEVOTHYROXINE 100 MCG TABLET PO SCH (08:40)
[2021-08-14] MEDS: FUROSEMIDE 80 MG TABLET. PO SCH ×2 (08:40→16:00)
[2021-08-14] MEDS: FOLIC/VIT B COMP W-C (RENAL) TABLET. PO SCH (08:40)
[2021-08-14] MEDS: SENNOSIDES/DOCUSATE 8.6/50MG TABLET. PO SCH ×2 (08:40→21:00)
[2021-08-14] MEDS: ASPIRIN CHEWABLE 81 MG TABLET. PO SCH (08:40)
[2021-08-14] MEDS: LISINOPRIL 20 MG TABLET PO SCH (08:52)
--- NOTE | 2021-08-14 08:52 | NUR ---
Dr Rees at bedside when morning medications were given. Stated today patient will go to dialysis and to hold his lisinopril. Will continue to monitor.
--- NOTE | 2021-08-14 09:09 | PDOC2 ---
CONSULT Date of Service Date of Service DATE: 08/14/21 TIME: 08:52 Reason for Consult Reason for Consult: Left heel wound Identification/Chief Complaint Chief Complaint Left heel wound Source Source: Chart review, Patient History of Present Illness Reason for Visit: This is a 61-year-old male with a history of end-stage renal disease on HD via RUE access and diabetes who presents with left heel wound. Patient underwent right bka and left heel debridement in May by orthopedic surgeon Dr. Joiner. His right BKA has healed without issues, he has no been fitted for a prosthetic yet and therefore is currently still nonambulatory. He is drowsy on exam today, contributing to being poor historian. He has hx of falls, left hip fracture --> left total hip arthroplasty. He says he lives at home with his . Denies any fevers or chills. He has had a duplex in it during his admission and on May that shows monophasic flow relatively throughout the left leg with some areas of elevated velocities. Left PT occlusion. He reports that he is able to float his heel at home majority of the time. He also underwent right upper extremity fistulogram with intervention last admission. He reports his fistula is working fine for dialysis, he dialyzes Tuesday. He denies any significant pain. Has been following at [facility]. He takes aspirin and statin. Past Medical History Cardiovascular: CAD, HTN, Hyperlipidemia Pulmonary: Other GI: GERD Heme/Onc: Anemia NOS Psych: Depression Renal/: Chronic renal failure Endocrine: Diabetes, Hypothyroidism, Hyperparathyroidism Past Surgical History Past Surgical History: Other (Right BKA, left hip ) Family History Family History: Diabetes, Hypertension Social History Social History Lives at home with ALCOHOL: none Drugs: None Lives: with Family Current Medications Current Medications Current Medications Ondansetron HCl (Zofran) 4 mg PRN Q6HRS PRN IVP NAUSEA/VOMITING; Start 08/13/21 at 17:45 Calcium Carbonate/ Glycine (Tums) 500 mg PRN Q3HRS PRN PO UPSET STOMACH; Start 08/13/21 at 17:45 Zolpidem Tartrate (Ambien) 5 mg PRN QHS PRN PO INSOMNIA, MAY REPEAT IN 1HR; Start 08/13/21 at 17:45 Info (Non-Icu Electrolyte Protocol) 1 ea PRN DAILY PRN MC SEE COMMENTS; Start 08/13/21 at 17:45 Oxycodone HCl (Roxicodone) 5 mg PRN Q3HRS PRN PO BREAKTHROUGH PAIN; Start 08/13/21 at 17:45 Morphine Sulfate (Morphine Sulfate) 1 mg PRN Q1HR PRN IV MODERATE PAIN; Start 08/13/21 at 17:45 Morphine Sulfate (Morphine Sulfate) 2 mg PRN Q1HR PRN IV SEVERE PAIN; Start 08/13/21 at 17:45 Acetaminophen (Tylenol) 650 mg PRN Q6HRS PRN PO Headaches, Temp > 101.5F; Start 08/13/21 at 17:45 Senna/Docusate Sodium (Senna Plus) 1 tab BID PO Last administered on 08/14/21at 08:40; Start 08/13/21 at 21:00 Heparin Sodium (Porcine) (Heparin Sodium) 5,000 unit Q8HRS SQ Last administered on 08/13/21at 20:16; Start 08/13/21 at 22:00 Aspirin (Aspirin Chewable) 81 mg DAILYWBKFT PO Last administered on 08/14/21at 08:40; Start 08/14/21 at 08:00 Atorvastatin Calcium (Lipitor) 10 mg HS PO Last administered on 08/13/21at 20:15; Start 08/13/21 at 21:00 Budesonide (Pulmicort) 0.5 mg RTBID NEB ; Start 08/13/21 at 20:00 Vitamin B Complex/ Vitamin C (Madai-Sean) 1 tab DAILY PO Last administered on 08/14/21at 08:40; Start 08/14/21 at 09:00 Furosemide (Lasix) 80 mg [id number] PO Last administered on 08/14/21at 08:40; Start 08/13/21 at 18:00 Levothyroxine Sodium (Synthroid) 300 mcg DAILYAC PO Last administered on 08/14/21at 08:40; Start 08/14/21 at 07:30 Lisinopril (Prinivil) 20 mg DAILY PO ; Start 08/14/21 at 09:00 Calcium Acetate (Phoslo) 667 mg TIDWMEALS PO Last administered on 08/14/21at 08:40; Start 08/14/21 at 08:00 Insulin Glargine (Lantus Syringe) 10 unit QHS SQ Last administered on 08/13/21at 21:35; Start 08/13/21 at 21:00 Active Scripts Active Hydrocodone-Acetamin 7.5-325 (Hydrocodone/Acetaminophen) 1 Each Tablet 1 Each PO Q6H 7 Days Vancomycin Hcl 125 Mg Capsule 1 Cap PO QID 14 Days Lantus Solostar (Insulin Glargine,Hum.rec.anlog) 100 Unit/1 Ml Insuln.pen 10 Unit SQ QHS Admelog (Insulin Lispro) 100 Unit/1 Ml Vial 0-5 Units SQ QIDACHS 30 Days Cortef (Hydrocortisone) 10 Mg Tablet 10 Mg PO DAILYWBKFT 3 Days Vitamin C (Ascorbic Acid) 500 Mg Tablet 500 Mg PO DAILY 30 Days Madai-Sean Tablet (Folic Acid/Vitamin B Comp W-C) 0.8 Mg Tablet 1 Tab PO DAILY 30 Days Dok (Docusate Sodium) 100 Mg Capsule 100 Mg PO PRN BID PRN 28 Days Culturelle (Lactobacillus Rhamnosus Gg) 1 Each Cap.sprink 1 Cap PO BID 30 Days Budesonide 0.5 Mg/2 Ml Ampul.neb 0.5 Mg NEB RTBID 30 Days Aspirin 81 Mg Tab.chew 81 Mg PO DAILYWBKFT 30 Days Duoneb 0.5-3(2.5) Mg/3 Ml (Albuterol/Ipratropium) 3 Ml Ampul.neb 3 Ml NEB RTQID 30 Days Reported Furosemide 80 Mg Tablet 1 Tab PO BID Lisinopril 20 Mg Tablet 1 Tab PO DAILY Levothyroxine Sodium 100 Mcg Tablet 300 Mcg PO DAILYAC Atorvastatin Calcium 10 Mg Tablet 10 Mg PO HS [place] 3 Fish Oil Softgel ([place]-3 Fatty Acids/Fish Oil) 1 Each Capsule.dr 1 Each PO DAILY Calcium Acetate 667 Mg Tablet 667 Mg PO TIDWMEALS Tylenol (Acetaminophen) 325 Mg Tablet 650 Mg PO PRN Q6HRS Ferrous Sulfate 325 Mg Tablet 1 Tab PO DAILY Allergies Allergies: Coded Allergies: No Known Drug Allergies (Unverified , 06/16/21) ROS General: No: Chills, Other (fever) Hematological and Lymphatic: No: Bleeding Problems, Blood Clots, Brusing Respiratory: No: Cough, Shortness of breath Cardiovascular: yes Edema; No Chest Pain Gastrointestinal: No Nausea, No Vomiting, No Diarrhea Musculoskeletal: Yes Pain In: (left great toe) Skin: Yes Dry Skin, Yes Skin Lesion Changes Physical Exam General: Alert, No acute distress, Other (Drowsy, Partially cooperative and responds when repeating ) Lungs: Normal air movement Heart: Regular rate, Other (LLE edema) Abdomen: Soft, No tenderness Extremities: Other (1+ left fem pulse, 2+ right fem. 2+ left popliteal pulse. Cannot appreciate pedal pulses. Monophasic PT and biphasic DP via handheld doppler. Toes are warm with excellent cap refill. RUE fistula with good thrill, slightly pulsatile proximally.) Skin: Other (LLE superficial small wound lateral lower leg. left great toe with small, clean superficial wound. Left posterior heel with soft, dry wound with soft necrotic base, skin edges clean, no fluctuance or drainage, skin edges clean. Right BKA healed. ) Neuro: Normal speech Vitals VITALS Vital Signs Date Time Temp Pulse Resp B/P (MAP) Pulse Ox O2 Delivery O2 Flow Rate FiO2 08/14/21 03:00 98.2 65 18 153/62 (92) 90 Nasal Cannula 4.0 98.2 Images Images Reviewed duplex from may. Fistulogram with intervention from may Assessment/Plan Assessment/Plan ESRD on HD via RUE access Right BKA Left heel wound PAD Pleasant 61-year-old male with evidence of peripheral arterial disease on arterial duplex and a nonhealing left heel wound. On exam his signals do not sound that bad, however he has had prior debridement and the wound is not healing. Therefore, would recommend arteriogram with possible intervention. The wound is stable at this time, no signs of infection, it would benefit from further debridement and wound VAC placement however this is not urgent. Would like to establish blood flow first. There is concern for bone involvement, could assess further when debrided. He had a right BKA and left heel debridement by by Dr. Joiner in May. The nurse informs me that Dr. Joiner is no longer in practice here. Will work on scheduling AARO, likely Tuesday. I did discuss this with the patient today, he would start to fall asleep as I was talking, I did have him exhibit his understanding and he did agree to this plan. Vascular surgeon will see patient as well. I discussed with him importance of strict heel offloading and floating. Cont aspirin and statin therapy. Vascular surgery staff note: Patient seen and examined on July,. I agree with the above assessment and plan unless otherwise stated. This patient has a neuropathic ulcer of the left heel. He is s/p right below-knee amputation. He had arterial occlusive disease as suggested by arterial duplex imaging in May of this year. The wound of his left heel demonstrates refractory healing. For this reason, I recommend angiographic evaluation via right femoral approach. He does have a palpable right femoral approach for access. He will then need debridement of the left heel. I explained the above in detail with the patient who expressed understanding and willingness to proceed. , Enedina Michel MD, vascular surgeon ISH KRAUSE Aug 14, 2021 09:09 ENEDINA MICHEL II, MD Aug 15, 2021 09:55
--- NOTE | 2021-08-14 09:31 | PDOC2 ---
CONSULT Date of Consult Date of Consult DATE: 08/14/21 TIME: 09:26 Reason for Consult Reason for Consult: ESRD Identification/Chief Complaint Chief Complaint Denies any complaints at present Source Source: Chart review History of Present Illness Reason for Visit: Patient is a 61-year-old CM with a history of end-stage renal disease on HD via RUE access and diabetes with frequent hospitalizations who presents with left heel wound from the wound clinic per nursing. Patient poor historian . He underwent right bka and left heel debridement in May [address] Joiner. His right BKA has healed without issues, he has no been fitted for a prosthetic yet and therefore is currently still nonambulatory. He has hx of falls, left hip fracture --> left total hip arthroplasty Denies any fevers or chills. Denies any N//D, no abdominal pain Past Medical History Cardiovascular: CAD, HTN, Hyperlipidemia Pulmonary: Other GI: GERD Heme/Onc: Anemia NOS Psych: Depression Renal/: Chronic renal failure Endocrine: Diabetes, Hypothyroidism, Hyperparathyroidism Past Surgical History Past Surgical History: Other (Right BKA, left hip ) Family History Family History: Diabetes, Hypertension Social History ALCOHOL: none Drugs: None Lives: with Family Current Medications Current Medications Current Medications Ondansetron HCl (Zofran) 4 mg PRN Q6HRS PRN IVP NAUSEA/VOMITING; Start 08/13/21 at 17:45 Calcium Carbonate/ Glycine (Tums) 500 mg PRN Q3HRS PRN PO UPSET STOMACH; Start 08/13/21 at 17:45 Zolpidem Tartrate (Ambien) 5 mg PRN QHS PRN PO INSOMNIA, MAY REPEAT IN 1HR; Start 08/13/21 at 17:45 Info (Non-Icu Electrolyte Protocol) 1 ea PRN DAILY PRN MC SEE COMMENTS; Start 08/13/21 at 17:45 Oxycodone HCl (Roxicodone) 5 mg PRN Q3HRS PRN PO BREAKTHROUGH PAIN; Start 08/13/21 at 17:45 Morphine Sulfate (Morphine Sulfate) 1 mg PRN Q1HR PRN IV MODERATE PAIN; Start 08/13/21 at 17:45 Morphine Sulfate (Morphine Sulfate) 2 mg PRN Q1HR PRN IV SEVERE PAIN; Start 08/13/21 at 17:45 Acetaminophen (Tylenol) 650 mg PRN Q6HRS PRN PO Headaches, Temp > 101.5F; Start 08/13/21 at 17:45 Senna/Docusate Sodium (Senna Plus) 1 tab BID PO Last administered on 08/14/21at 08:40; Start 08/13/21 at 21:00 Heparin Sodium (Porcine) (Heparin Sodium) 5,000 unit Q8HRS SQ Last administered on 08/13/21at 20:16; Start 08/13/21 at 22:00 Aspirin (Aspirin Chewable) 81 mg DAILYWBKFT PO Last administered on 08/14/21at 08:40; Start 08/14/21 at 08:00 Atorvastatin Calcium (Lipitor) 10 mg HS PO Last administered on 08/13/21at 20:15; Start 08/13/21 at 21:00 Budesonide (Pulmicort) 0.5 mg RTBID NEB ; Start 08/13/21 at 20:00 Vitamin B Complex/ Vitamin C (Madai-Sean) 1 tab DAILY PO Last administered on 08/14/21at 08:40; Start 08/14/21 at 09:00 Furosemide (Lasix) 80 mg [id number] PO Last administered on 08/14/21at 08:40; Start 08/13/21 at 18:00 Levothyroxine Sodium (Synthroid) 300 mcg DAILYAC PO Last administered on 08/14/21 08:40; Start 08/14/21 at 07:30 Lisinopril (Prinivil) 20 mg DAILY PO ; Start 08/14/21 at 09:00 Calcium Acetate (Phoslo) 667 mg TIDWMEALS PO Last administered on 08/14/21at 08:40; Start 08/14/21 at 08:00 Insulin Glargine (Lantus Syringe) 10 unit QHS SQ Last administered on 08/13/21at 21:35; Start 08/13/21 at 21:00 Active Scripts Active Hydrocodone-Acetamin 7.5-325 (Hydrocodone/Acetaminophen) 1 Each Tablet 1 Each PO Q6H 7 Days Vancomycin Hcl 125 Mg Capsule 1 Cap PO QID 14 Days Lantus Solostar (Insulin Glargine,Hum.rec.anlog) 100 Unit/1 Ml Insuln.pen 10 Unit SQ QHS Admelog (Insulin Lispro) 100 Unit/1 Ml Vial 0-5 Units SQ QIDACHS 30 Days Cortef (Hydrocortisone) 10 Mg Tablet 10 Mg PO DAILYWBKFT 3 Days Vitamin C (Ascorbic Acid) 500 Mg Tablet 500 Mg PO DAILY 30 Days Madai-Sean Tablet (Folic Acid/Vitamin B Comp W-C) 0.8 Mg Tablet 1 Tab PO DAILY 30 Days Dok (Docusate Sodium) 100 Mg Capsule 100 Mg PO PRN BID PRN 28 Days Culturelle (Lactobacillus Rhamnosus Gg) 1 Each Cap.sprink 1 Cap PO BID 30 Days Budesonide 0.5 Mg/2 Ml Ampul.neb 0.5 Mg NEB RTBID 30 Days Aspirin 81 Mg Tab.chew 81 Mg PO DAILYWBKFT 30 Days Duoneb 0.5-3(2.5) Mg/3 Ml (Albuterol/Ipratropium) 3 Ml Ampul.neb 3 Ml NEB RTQID 30 Days Reported Furosemide 80 Mg Tablet 1 Tab PO BID Lisinopril 20 Mg Tablet 1 Tab PO DAILY Levothyroxine Sodium 100 Mcg Tablet 300 Mcg PO DAILYAC Atorvastatin Calcium 10 Mg Tablet 10 Mg PO HS [place] 3 Fish Oil Softgel ([place]-3 Fatty Acids/Fish Oil) 1 Each Capsule.dr 1 Each PO DAILY Calcium Acetate 667 Mg Tablet 667 Mg PO TIDWMEALS Tylenol (Acetaminophen) 325 Mg Tablet 650 Mg PO PRN Q6HRS Ferrous Sulfate 325 Mg Tablet 1 Tab PO DAILY Allergies Allergies: Coded Allergies: No Known Drug Allergies (Unverified , 06/16/21) ROS Review of System As per HPI, rets of the ROS is negative Patient is a poor historian Physical Exam Physical Exam GENERAL: NAD HEENT: OM moist , On Chronic home O2 NECK: Supple. LUNGS: Decreased breath sounds at the bases, non labored HEART: S1, S2. ABDOMEN: Soft, nontender. EXTREMITIES: AVG Rt ; Rt BKA recent SKIN : No generalized rash, no enriquez Vital Signs Vital Signs Date Time Temp Pulse Resp B/P (MAP) Pulse Ox O2 Delivery O2 Flow Rate FiO2 08/14/21 07:00 98.7 66 18 152/65 (94) 90 Nasal Cannula 4.0 98.7 Assessment & Plan ESRD - On HD MWF @ [facility] under Dr. Scanlon . Dialysis today, discussed treatment plan with [facility] Access - Rt arm AVF -- recent Fistulogram 06/23/21- Moderate stenoses at the junction of the previously stented cephalic vein and subclavian vein, as well as the subclavian vein in the right innominate vein treated with balloon angioplasty with improvement morphology and flow. Anemia No labs this morning , required PRBC at previous admission . Continue FABIAN Hx of HypoGlycemia- Hx of DM on Isulin. Primary managing Hx of Right heel wound, - s/p Irrigation debridement of right heel ulcer skin subcutaneous tissue and removal of right great toenail. S/P right below-knee amputation and left heel and great toe debridement on 06/19 . Readmitted from wound clinic Recent history Acute Lt Femoral neck displaced fracture s/p Lt Hip Repair COPD with home O2 dependency history of poorly controlled diabetes Hypertension BP stable Labs Review All relevant outside records, renal labs, imaging studies, telemetry/EKG's were reviewed. REBECCA ANGLIN MD Aug 14, 2021 09:31
[2021-08-14] MEDS ORDERED: DEXTROSE 50% 25 GM / 50ML DISP.SYRIN. IV PRN (10:00)
--- NOTE | 2021-08-14 10:01 | PDOC1 ---
History and Physical Date of Service: DOS: DATE: 08/14/21 TIME: 10:01 Chief Complaint: Chief Complain: wound healing issues History of Present Illness: HPI: This is a 61-year-old male with a history of end-stage renal disease on HD via RUE access and diabetes who presents with left heel wound. Patient underwent right bka and left heel debridement in May by orthopedic surgeon Dr. Joiner. His right BKA has healed without issues, he has no been fitted for a prosthetic yet and therefore is currently still nonambulatory. He is drowsy on exam today, contributing to being poor historian. He has hx of falls, left hip fracture --> left total hip arthroplasty. He says he lives at home with his . Denies any fevers or chills. He has had a duplex in it during his admission and on May that shows monophasic flow relatively throughout the left leg with some areas of elevated velocities. Left PT occlusion. He reports that he is able to float his heel at home majority of the time. He also underwent right upper extremity fistulogram with intervention last admission. He reports his fistula is working fine for dialysis, he dialyzes Tuesday day Tuesday. He denies any significant pain. Has been following at [facility]. He takes aspirin and statin. Patient was sent from wound care clinic due to worsening wounds. Vascular surgery consult. Past Medical/Surgical History: PMH/PSH: CAD, HTN, HPLD, ESRD Allergies: Allergies: Coded Allergies: No Known Drug Allergies (Unverified , 06/16/21) Family History: Family History: Hypertension Social History: Social History: History of tobacco use. Denies alcohol drug use Current Medications: Current Medications Current Medications Ondansetron HCl (Zofran) 4 mg PRN Q6HRS PRN IVP NAUSEA/VOMITING; Start 08/13/21 at 17:45 Calcium Carbonate/ Glycine (Tums) 500 mg PRN Q3HRS PRN PO UPSET STOMACH; Start 08/13/21 at 17:45 Zolpidem Tartrate (Ambien) 5 mg PRN QHS PRN PO INSOMNIA, MAY REPEAT IN 1HR; Start 08/13/21 at 17:45 Info (Non-Icu Electrolyte Protocol) 1 ea PRN DAILY PRN MC SEE COMMENTS; Start 08/13/21 at 17:45 Oxycodone HCl (Roxicodone) 5 mg PRN Q3HRS PRN PO BREAKTHROUGH PAIN; Start 08/13/21 at 17:45 Morphine Sulfate (Morphine Sulfate) 1 mg PRN Q1HR PRN IV MODERATE PAIN; Start 08/13/21 at 17:45 Morphine Sulfate (Morphine Sulfate) 2 mg PRN Q1HR PRN IV SEVERE PAIN; Start 08/13/21 at 17:45 Acetaminophen (Tylenol) 650 mg PRN Q6HRS PRN PO Headaches, Temp > 101.5F; Start 08/13/21 at 17:45 Senna/Docusate Sodium (Senna Plus) 1 tab BID PO Last administered on 08/14/21at 08:40; Start 08/13/21 at 21:00 Heparin Sodium (Porcine) (Heparin Sodium) 5,000 unit Q8HRS SQ Last administered on 08/13/21at 20:16; Start 08/13/21 at 22:00 Aspirin (Aspirin Chewable) 81 mg DAILYWBKFT PO Last administered on 08/14/21at 08:40; Start 08/14/21 at 08:00 Atorvastatin Calcium (Lipitor) 10 mg HS PO Last administered on 08/13/21at 20:15; Start 08/13/21 at 21:00 Budesonide (Pulmicort) 0.5 mg RTBID NEB ; Start 08/13/21 at 20:00 Vitamin B Complex/ Vitamin C (Madai-Sean) 1 tab DAILY PO Last administered on 08/14/21at 08:40; Start 08/14/21 at 09:00 Furosemide (Lasix) 80 mg [id number] PO Last administered on 08/14/21at 08:40; Start 08/13/21 at 18:00 Levothyroxine Sodium (Synthroid) 300 mcg DAILYAC PO Last administered on 08/14/21at 08:40; Start 08/14/21 at 07:30 Lisinopril (Prinivil) 20 mg DAILY PO ; Start 08/14/21 at 09:00 Calcium Acetate (Phoslo) 667 mg TIDWMEALS PO Last administered on 08/14/21at 08:40; Start 08/14/21 at 08:00 Insulin Glargine (Lantus Syringe) 10 unit QHS SQ Last administered on 08/13/21at 21:35; Start 08/13/21 at 21:00 Epoetin Luís-epbx (RETACRIT for ESRD PTS) 10,000 unit MoWeFr@2100 SQ ; Start 08/14/21 at 21:00 Active Scripts Active Hydrocodone-Acetamin 7.5-325 (Hydrocodone/Acetaminophen) 1 Each Tablet 1 Each PO Q6H 7 Days Vancomycin Hcl 125 Mg Capsule 1 Cap PO QID 14 Days Lantus Solostar (Insulin Glargine,Hum.rec.anlog) 100 Unit/1 Ml Insuln.pen 10 Unit SQ QHS Admelog (Insulin Lispro) 100 Unit/1 Ml Vial 0-5 Units SQ QIDACHS 30 Days Cortef (Hydrocortisone) 10 Mg Tablet 10 Mg PO DAILYWBKFT 3 Days Vitamin C (Ascorbic Acid) 500 Mg Tablet 500 Mg PO DAILY 30 Days Madai-Sean Tablet (Folic Acid/Vitamin B Comp W-C) 0.8 Mg Tablet 1 Tab PO DAILY 30 Days Dok (Docusate Sodium) 100 Mg Capsule 100 Mg PO PRN BID PRN 28 Days Culturelle (Lactobacillus Rhamnosus Gg) 1 Each Cap.sprink 1 Cap PO BID 30 Days Budesonide 0.5 Mg/2 Ml Ampul.neb 0.5 Mg NEB RTBID 30 Days Aspirin 81 Mg Tab.chew 81 Mg PO DAILYWBKFT 30 Days Duoneb 0.5-3(2.5) Mg/3 Ml (Albuterol/Ipratropium) 3 Ml Ampul.neb 3 Ml NEB RTQID 30 Days Reported Furosemide 80 Mg Tablet 1 Tab PO BID Lisinopril 20 Mg Tablet 1 Tab PO DAILY Levothyroxine Sodium 100 Mcg Tablet 300 Mcg PO DAILYAC Atorvastatin Calcium 10 Mg Tablet 10 Mg PO HS [place] 3 Fish Oil Softgel ([place]-3 Fatty Acids/Fish Oil) 1 Each Capsule.dr 1 Each PO DAILY Calcium Acetate 667 Mg Tablet 667 Mg PO TIDWMEALS Tylenol (Acetaminophen) 325 Mg Tablet 650 Mg PO PRN Q6HRS Ferrous Sulfate 325 Mg Tablet 1 Tab PO DAILY ROS: Review of Systems Review of System Unless noted in HPI 14 point review systems was negative Physical Exam: Vital Signs: Vital Signs Date Time Temp Pulse Resp B/P (MAP) Pulse Ox O2 Delivery O2 Flow Rate FiO2 08/14/21 07:00 98.7 66 18 152/65 (94) 90 Nasal Cannula 4.0 98.7 Physcial Exam: GEN: No apparent distress. Alert and oriented HEENT: Normal cephalic, atraumatic, external auditory canals are patent EYES: Extraocular muscles are intact, pupil are equally round and reactive to light and accommodation MUSCULOSKELETAL: Well developed , well nourished, good range of motion ENDOCRINE: No thyromegaly was palpated LYMPHATICS: No cervical chain or axillary nodes were noted HEMATOPOIETIC: No bruising NECK: Supple, no JVD, no thyromegaly was noted LUNGS: Clear to auscultation in all lung [place] without rhonchi or wheezing HEART: RRR, S!, S2 present. Peripheral pulses intact, no obvious murmurs noted ABDOMEN: Soft, nontender. Positive bowel sounds, no organomegaly, normal bowel sounds EXTREMITIES: Right BKA. Left lower extremity wounds present. Decreased pulses in lower extremities PSYCHIATRIC: Normal affect, normal mood. Stable SKIN: No ulcerations or rashes, good skin turgor, no jaundice VASCULAR: Good capillary refill, neurovascular bundle appears to be intact Assessment/Plan Assessment/Plan Diabetic foot ulcer, history ESRD CAD hypertension hyperlipidemia -Admit from wound care clinic -Vascular surgery consulted -Broad-spectrum antibiotics. -. Vascular planning for arterial study Tuesday -Nephrology consulted to resume home dialysis -Home meds resumed as indicated -DVT prophylaxis -Plan of care discussed with bedside RN Discussed advance care planning with this patient for 20 minutes. Justifications for Admission Other Justification ESRD, fluid overload JIN REYES MD Aug 14, 2021 10:01
--- NOTE | 2021-08-14 10:25 | NUR ---
SW following. Discussed with RN, pt from home with , 4L (uses oxygen at home), ada diet. Pt does outpatient dialysis and has [facility]. Nephrology and Vascular following. SW will continue to follow.
[2021-08-14 11:00] VITALS: BP 161/67
[2021-08-14 11:10] LABS: BASO # 0.2 x10^3/uL (0.0-0.2); BASO % 3 % (0-3); EOS # 0.3 x10^3/uL (0.0-0.7); EOS % 4 % (0-3); HEMATOCRIT 31.3 % (39.0-53.0); HEMOGLOBIN 9.8 g/dL (13.0-17.5); LYMPH # 1.2 x10^3/uL (1.0-4.8); LYMPH % 16 % (24-48); MEAN CORPUSCULAR HEMOGLOBIN 29 pg (25-35); MEAN CORPUSCULAR HGB CONC 31 g/dL (31-37); MEAN CORPUSCULAR VOLUME 93 fL (79-100); MONO # 0.6 x10^3/uL (0.0-1.1); MONO % 9 % (0-9); NEUT # 5.1 x10^3/uL (1.8-7.7); NEUT % 69 % (31-73); PLATELET COUNT 203 x10^3/uL (140-400); RED BLOOD COUNT 3.36 x10^6/uL (4.30-5.70); WHITE BLOOD COUNT 7.3 x10^3/uL (4.0-11.0)
[2021-08-14 11:18] LABS: ALBUMIN 2.9 g/dL (3.4-5.0); ALBUMIN/GLOBULIN RATIO 0.7 (1.0-1.7); CALCIUM 8.2 mg/dL (8.5-10.1); CREATININE 6.4 mg/dL (0.7-1.3); POTASSIUM 5.7 mmol/L (3.5-5.1); TOTAL BILIRUBIN 0.5 mg/dL (0.2-1.0)
[2021-08-14] MEDS ORDERED: DIALYSIS PATIENT. MC PRN ×2 (13:00)
[2021-08-14] MEDS ORDERED: IV NORMAL SALINE 1000ML BAG 1,000 ML IV PRN ×2 (13:00)
[2021-08-14] MEDS ORDERED: ALBUMIN HUMAN 25% 200 ML IV PRN (13:00)
--- NOTE | 2021-08-14 13:00 | NUR ---
At patients bedside around 1000 starting an IV when his BS meter went off reading his blood sugar level at 58. Patient able to talk, drink, and communicate with this nurse. Nepro given while doctor was notified and Hypoglycemia orders placed. One dose of 12.5gm dextrose given IV. Blood sugar was 75 at 1030, 123 at 1056, and 120 at 1200 all per his blood sugar meter/monitor. No further dextrose was given. Patient eating lunch at this time prior to his dialysis. Will continue to monitor.
[2021-08-14] MEDS ORDERED: PIP/TAZO PER PHARMACY MC PRN (14:30)
[2021-08-14] MEDS: VANCOMYCIN PER PHARMACY MC PRN (14:47)
--- NOTE | 2021-08-14 14:50 | NUR ---
Pharmacy Vancomycin Dosing Note S:Consulted to monitor and dose vancomycin started 08/14/21. O:SEBASTIAN ANGULO is a 61 year old M with non healing diabetic foot ulcer . Height: 5 feet, 9 inches Weight: 64.4 kg [place] Body Weight: 70.70 Adjusted Body Weight: 68.18 Dosing Weight: Actual Other Antibiotics: zosyn LABS: Last BUN: 58 Last Creatinine: 6.4 Creatinine Clearance: MWF HD Last WBC: 7.3 Last Procalcitonin: Tmax (past 24 hours): 98.7 Microbiology: - I/O: 250/- Vancomycin Dosing: Loading Dose: 1500 mg x1 Dosing Weight: Actual Target Trough: 10-20 A: Based on: weight and renal function P: 1. Dose Vancomycin 1500 mg IV One Time 2. Follow up Random level on 08/17/21 at 0500 (prior to next HD session) 3. Pharmacy will continue to monitor, follow and adjust therapy as needed. Aleida Allen Peter, 08/14/21 [id number]
[2021-08-14] MEDS ORDERED: VANCOMYCIN 1.5 GM in IV NORMAL SALINE 500ML BAG 500 ML IV ONE (16:00)
[2021-08-14 17:12] VITALS: BP 171/74
[2021-08-14] MEDS: PIPERACILLIN/TAZOBACTAM 2.25 GM in IV NORMAL SALINE 50ML 50 ML IV SCH ×2 (17:36→22:43)
[2021-08-14 19:00] VITALS: BP 178/68
[2021-08-14] MEDS: INSULIN GLARGINE SYRINGE. SQ SCH (21:00)
[2021-08-14] MEDS: ATORVASTATIN CALCIUM 10 MG TABLET. PO SCH (21:21)
[2021-08-14] MEDS: EPOETIN ALFA-EPBX for ESRD 20,000 UNIT/ML VIAL. SQ SCH (21:27)
[2021-08-14 23:00] VITALS: BP 162/69
[2021-08-15 03:00] VITALS: BP 157/67
[2021-08-15] MEDS: HEPARIN for SUB-Q USE 5,000 UNIT/ML VIAL. SQ SCH ×3 (06:00→20:29)
[2021-08-15] MEDS: PIPERACILLIN/TAZOBACTAM 2.25 GM in IV NORMAL SALINE 50ML 50 ML IV SCH ×3 (06:21→21:07)
[2021-08-15 07:00] VITALS: BP 169/64
[2021-08-15] MEDS: BUDESONIDE 0.5 MG/2 ML NEBU. NEB SCH ×2 (08:00→20:00)
[2021-08-15] MEDS: FOLIC/VIT B COMP W-C (RENAL) TABLET. PO SCH (08:42)
[2021-08-15] MEDS: SENNOSIDES/DOCUSATE 8.6/50MG TABLET. PO SCH ×2 (08:42→20:22)
[2021-08-15] MEDS: LEVOTHYROXINE 100 MCG TABLET PO SCH (08:42)
[2021-08-15] MEDS: FUROSEMIDE 80 MG TABLET. PO SCH ×2 (08:42→17:49)
[2021-08-15] MEDS: LISINOPRIL 20 MG TABLET PO SCH (08:42)
[2021-08-15] MEDS: CALCIUM ACETATE 667 MG CAPSULE PO SCH ×3 (08:43→17:49)
[2021-08-15] MEDS: ASPIRIN CHEWABLE 81 MG TABLET. PO SCH (08:43)
[2021-08-15] MEDS: VANCOMYCIN PER PHARMACY MC PRN (10:48)
[2021-08-15 11:00] VITALS: BP 168/73
--- NOTE | 2021-08-15 11:08 | PDOC ---
[facility] PROGRESS NOTE Date of Service DOS: DATE: 08/15/21 TIME: 11:06 Chief Complaint Chief Complaint Diabetic foot ulcer, history ESRD CAD hypertension hyperlipidemia -Admit from wound care clinic -Vascular surgery consulted -Broad-spectrum antibiotics. -. Vascular planning for arterial study Tuesday -Nephrology consulted to resume home dialysis -Home meds resumed as indicated -DVT prophylaxis -Plan of care discussed with bedside RN History of Present Illness History of Present Illness This is a 61-year-old male with a history of end-stage renal disease on HD via RUE access and diabetes who presents with left heel wound. Patient underwent r ight bka and left heel debridement in May by orthopedic surgeon Dr. Joiner. His right BKA has healed without issues, he has no been fitted for a prosthetic yet and therefore is currently still nonambulatory. He is drowsy on exam today, contributing to being poor historian. He has hx of falls, left hip fracture --> left total hip arthroplasty. He says he lives at home with his . Denies any fevers or chills. He has had a duplex in it during his admission and on May that shows monophasic flow relatively throughout the left leg with some areas of elevated velocities. Left PT occlusion. He reports that he is able to float his heel at home majority of the time. He also underwent right upper extremity fistulogram with intervention last admission. He reports his fistula is working fine for dialysis, he dialyzes Tuesday. He denies any significant pain. Has been following at [facility]. He takes aspirin and statin. Patient was sent from wound care clinic due to worsening wounds. Vascular surgery consult. 08/15 Patient evaluated examined at bedside. Resting in bed no major complaints. Planning for arterial study Tuesday. Antibiotics continue. Dialysis Tuesday. Vitals/I&O Vitals/I&O: Vital Signs Date Time Temp Pulse Resp B/P (MAP) Pulse Ox O2 Delivery O2 Flow Rate FiO2 08/15/21 08:42 74 169/64 08/15/21 07:00 97.5 18 93 Nasal Cannula 4.0 97.5 I & O 08/14/21 08/14/21 08/15/21 15:00 23:00 07:00 Intake Total 250 ml 170 ml Balance 250 ml 170 ml Physical Exam General: Alert, No acute distress, Other (Drowsy, Partially cooperative and responds when repeating ) Heart: Regular rate, Other (LLE edema) Lungs: Clear Abdomen: Soft, No tenderness Extremities: Other (1+ left fem pulse, 2+ right fem. 2+ left popliteal pulse. Cannot appreciate pedal pulses. Monophasic PT and biphasic DP via handheld doppler. Toes are warm with excellent cap refill. RUE fistula with good thrill, slightly pulsatile proximally.) Skin: Other (LLE superficial small wound lateral lower leg. left great toe with small, clean superficial wound. Left posterior heel with soft, dry wound with soft necrotic base, skin edges clean, no fluctuance or drainage, skin edges clean. Right BKA healed. ) Comment Review of Relevant I have reviewed the following items yesenia (where applicable) has been applied. Medications: Current Medications Medications (Trade) Dose Ordered Sig/Celi Route PRN Reason Start Time Stop Time Status Last Admin Dose Admin Epoetin Luís-epbx (RETACRIT for ESRD PTS) 10,000 unit MoWeFr@2100 SQ 08/14/21 21:00 08/14/21 21:27 Vancomycin HCl (Vanco Per Pharmacy) 1 each PRN DAILY PRN MC SEE COMMENTS 08/14/21 14:30 08/15/21 10:48 Piperacillin Sod/ Tazobactam Sod 2.25 gm/Sodium Chloride 50 ml @ 100 mls/hr Q8HRS IV 08/14/21 15:00 08/15/21 06:21 Vancomycin HCl 1.5 gm/Sodium Chloride 500 ml @ 250 mls/hr 1X ONCE IV 08/14/21 16:00 08/14/21 17:59 DC 08/14/21 18:28 Justifications for Admission Other Justification ESRD, fluid overload JIN REYES MD Aug 15, 2021 11:08
[2021-08-15] MEDS: IPRATRPIUM/ALBUTEROL 0.5/2.5MG 3 ML NEBU. NEB SCH ×2 (14:35→20:00)
[2021-08-15 15:00] VITALS: BP 158/62
[2021-08-15] MEDS: oxyCODONE IR 5 MG TABLET PO PRN ×2 (15:12→21:17)
[2021-08-15 19:00] VITALS: BP 134/72
[2021-08-15] MEDS: MORPHINE SULFATE 2 MG/ML INJ. IV PRN ×2 (20:21→23:06)
[2021-08-15] MEDS: ATORVASTATIN CALCIUM 10 MG TABLET. PO SCH (20:22)
[2021-08-15] MEDS: ZOLPIDEM 5 MG TABLET. PO PRN (20:22)
[2021-08-15] MEDS: LACTOBACILLUS RHAMNOSUS GG 1 CAPSULE. PO SCH (20:22)
[2021-08-15] MEDS: INSULIN GLARGINE SYRINGE. SQ SCH (20:46)
[2021-08-15 23:04] VITALS: BP 169/67
[2021-08-16 03:26] VITALS: BP 138/60
[2021-08-16] MEDS: PIPERACILLIN/TAZOBACTAM 2.25 GM in IV NORMAL SALINE 50ML 50 ML IV SCH ×4 (04:44→22:13)
[2021-08-16] MEDS: oxyCODONE IR 5 MG TABLET PO PRN ×3 (04:46→20:32)
[2021-08-16] MEDS: LEVOTHYROXINE 100 MCG TABLET PO SCH (04:47)
[2021-08-16] MEDS: HEPARIN for SUB-Q USE 5,000 UNIT/ML VIAL. SQ SCH ×3 (04:47→20:33)
[2021-08-16] MEDS: BUDESONIDE 0.5 MG/2 ML NEBU. NEB SCH ×2 (06:13→20:00)
[2021-08-16] MEDS: IPRATRPIUM/ALBUTEROL 0.5/2.5MG 3 ML NEBU. NEB SCH ×4 (06:13→20:00)
[2021-08-16 06:36] VITALS: BP 160/64
[2021-08-16] MEDS: FUROSEMIDE 80 MG TABLET. PO SCH ×2 (08:33→17:17)
[2021-08-16] MEDS: LACTOBACILLUS RHAMNOSUS GG 1 CAPSULE. PO SCH ×2 (08:33→20:31)
[2021-08-16] MEDS: FOLIC/VIT B COMP W-C (RENAL) TABLET. PO SCH (08:33)
[2021-08-16] MEDS: SENNOSIDES/DOCUSATE 8.6/50MG TABLET. PO SCH ×2 (08:34→20:32)
[2021-08-16] MEDS: ASPIRIN CHEWABLE 81 MG TABLET. PO SCH (08:34)
[2021-08-16] MEDS: LISINOPRIL 20 MG TABLET PO SCH (08:34)
[2021-08-16] MEDS: CALCIUM ACETATE 667 MG CAPSULE PO SCH ×3 (08:34→17:17)
[2021-08-16 11:00] VITALS: BP 164/62
[2021-08-16] MEDS: VANCOMYCIN PER PHARMACY MC PRN (11:01)
[2021-08-16] MEDS ORDERED: DEXTROSE 50% 25 GM / 50ML DISP.SYRIN. IV PRN (11:30)
--- NOTE | 2021-08-16 11:43 | PDOC ---
[facility] PROGRESS NOTE Date of Service DOS: DATE: 08/16/21 TIME: 11:43 Chief Complaint Chief Complaint Diabetic foot ulcer, history ESRD CAD hypertension hyperlipidemia -Admit from wound care clinic -Vascular surgery consulted -Broad-spectrum antibiotics. -. Vascular planning for arterial study Tuesday -Nephrology consulted to resume home dialysis -Home meds resumed as indicated -DVT prophylaxis -Plan of care discussed with bedside RN History of Present Illness History of Present Illness This is a 61-year-old male with a history of end-stage renal disease on HD via RUE access and diabetes who presents with left heel wound. Patient underwent r ight bka and left heel debridement in May by orthopedic surgeon Dr. Joiner. His right BKA has healed without issues, he has no been fitted for a prosthetic yet and therefore is currently still nonambulatory. He is drowsy on exam today, contributing to being poor historian. He has hx of falls, left hip fracture --> left total hip arthroplasty. He says he lives at home with his . Denies any fevers or chills. He has had a duplex in it during his admission and on May that shows monophasic flow relatively throughout the left leg with some areas of elevated velocities. Left PT occlusion. He reports that he is able to float his heel at home majority of the time. He also underwent right upper extremity fistulogram with intervention last admission. He reports his fistula is working fine for dialysis, he dialyzes Tuesday. He denies any significant pain. Has been following at [facility]. He takes aspirin and statin. Patient was sent from wound care clinic due to worsening wounds. Vascular surgery consult. 08/15 Patient evaluated examined at bedside. Resting in bed no major complaints. Planning for arterial study Tuesday. Antibiotics continue. Dialysis Tuesday. 08/16 Patient evaluated examined at bedside. Resting in bed no major complaints. Vascular studies tomorrow. Continue antibiotics. Suspect dialysis tomorrow as well. Vitals/I&O Vitals/I&O: Vital Signs Date Time Temp Pulse Resp B/P (MAP) Pulse Ox O2 Delivery O2 Flow Rate FiO2 08/16/21 11:40 Nasal Cannula 2.0 08/16/21 08:34 55 160/64 08/16/21 06:36 96.9 18 98 96.9 I & O 08/15/21 08/15/21 08/16/21 15:00 23:00 07:00 Output Total 0 ml Balance 0 ml Physical Exam General: Alert, No acute distress, Other (Drowsy, Partially cooperative and responds when repeating ) Heart: Regular rate, Other (LLE edema) Lungs: Clear Abdomen: Soft, No tenderness Extremities: Other (1+ left fem pulse, 2+ right fem. 2+ left popliteal pulse. Cannot appreciate pedal pulses. Monophasic PT and biphasic DP via handheld doppler. Toes are warm with excellent cap refill. RUE fistula with good thrill, slightly pulsatile proximally.) Skin: Other (LLE superficial small wound lateral lower leg. left great toe with small, clean superficial wound. Left posterior heel with soft, dry wound with soft necrotic base, skin edges clean, no fluctuance or drainage, skin edges clean. Right BKA healed. ) Comment Review of Relevant I have reviewed the following items yesenia (where applicable) has been applied. Medications: Current Medications Medications (Trade) Dose Ordered Sig/Celi Route PRN Reason Start Time Stop Time Status Last Admin Dose Admin Lactobacillus Rhamnosus (Culturelle) 1 cap BID PO 08/15/21 21:00 08/16/21 08:33 Albuterol/ Ipratropium (Duoneb) 3 ml RTQID NEB 08/15/21 16:00 08/16/21 11:39 Justifications for Admission Other Justification ESRD, fluid overload JIN REYES MD Aug 16, 2021 11:43
[2021-08-16] MEDS: INSULIN LISPRO 300 UNITS/3 ML VIAL. SQ SCH ×2 (12:48→17:00)
--- NOTE | 2021-08-16 14:28 | RAD ---
EXAMINATION: XR SHOULDER_RIGHT 2+ VIEWS CLINICAL HISTORY: Recurrent fracture- new swelling TECHNIQUE: XR SHOULDER_RIGHT 2+ VIEWS Number of Images/Views: 3 COMPARISON: 05/27/2021 FINDINGS: Fracture through the surgical neck of the humerus with increased impaction and suspected mildly incre ased angulation at the fracture site. Increased callus/heterotopic ossification, most pronounced late rally and inferiorly. Glenohumeral congruency maintained. Acromioclavicular joint maintained. Vascula r calcifications. Endovascular stents. Incidentally noted increased basilar and interstitial opacities in the right lung with likely pleural effusion. IMPRESSION: Increased impaction and suspected mildly increased angulation at the right proximal humerus fracture as described. Increased opacities in the right lung with likely pleural effusion, incompletely evaluated. Recommend clinical correlation and follow-up with dedicated chest radiographs as indicated. Electronically signed by: Serafin Ragsdale DO (08/16/2021 2:26 PM) [facility]
[2021-08-16 19:00] VITALS: BP 153/61
[2021-08-16] MEDS: ATORVASTATIN CALCIUM 10 MG TABLET. PO SCH (20:32)
[2021-08-16] MEDS: ZOLPIDEM 5 MG TABLET. PO PRN (20:32)
[2021-08-16] MEDS: INSULIN GLARGINE SYRINGE. SQ SCH (20:34)
[2021-08-16 23:06] VITALS: BP 158/64
[2021-08-17 03:21] VITALS: BP 122/55
[2021-08-17] MEDS: HEPARIN for SUB-Q USE 5,000 UNIT/ML VIAL. SQ SCH ×3 (04:48→20:28)
[2021-08-17] MEDS: LEVOTHYROXINE 100 MCG TABLET PO SCH (04:50)
[2021-08-17] MEDS: PIPERACILLIN/TAZOBACTAM 2.25 GM in IV NORMAL SALINE 50ML 50 ML IV SCH ×3 (04:51→21:09)
[2021-08-17] MEDS ORDERED: VANCOMYCIN RANDOM LEVEL. MC ONE (05:00)
[2021-08-17 05:50] LABS: CALCIUM 8.2 mg/dL (8.5-10.1); CREATININE 6.1 mg/dL (0.7-1.3); GFR 9.5; POTASSIUM 4.9 mmol/L (3.5-5.1)
[2021-08-17] MEDS: VANCOMYCIN PER PHARMACY MC PRN (06:30)
--- NOTE | 2021-08-17 06:30 | NUR ---
Pharmacy Vancomycin Dosing Note S:Consulted to monitor and dose vancomycin started 08/14/21. O:SEBASTIAN ANGULO is a 61 year old M with non healing diabetic foot ulcer . Height: 5 feet, 9 inches Weight: 68.3 kg [place] Body Weight: 70.70 Adjusted Body Weight: 69.74 Dosing Weight: Actual Other Antibiotics: zosyn LABS: Last BUN: 58 Last Creatinine: 6.4 Creatinine Clearance: MWF HD mL/min Last WBC: 7.3 Last Procalcitonin: Tmax (past 24 hours): 97.5 Microbiology: - I/O: 420/ - Drug Levels: Last Random level: 19.7 on 08/17/21 at 0500 Last dose given 08/14/21 at 1828 Vancomycin Dosing: Loading Dose: 1500 mg x1 Dosing Weight: Actual Target Trough: 10-20 A: Based on: RANDOM LEVEL AND DIALYSIS SCHEDULE P: 1. Begin Vancomycin 500 mg IV MWF AFTER DIALYSIS 2. Follow up Random level IN 5 DAYS IF NEEDED 3. Pharmacy will continue to monitor, follow and adjust therapy as needed. XAVI KNOX RPH, 08/17/21 0630 Signed: 08/17/21 at 0631 by XAVI KNOX RPH PHA
[2021-08-17 07:00] VITALS: BP 145/60
--- NOTE | 2021-08-17 07:22 | PDOC ---
[facility] PROGRESS NOTE Date of Service DOS: DATE: 08/17/21 TIME: 07:21 Chief Complaint Chief Complaint Diabetic foot ulcer, history ESRD CAD hypertension hyperlipidemia -Admit from wound care clinic -Vascular surgery consulted -Broad-spectrum antibiotics. -. Vascular planning for arterial study Tuesday -Nephrology consulted to resume home dialysis -Home meds resumed as indicated -DVT prophylaxis -Plan of care discussed with bedside RN History of Present Illness History of Present Illness This is a 61-year-old male with a history of end-stage renal disease on HD via RUE access and diabetes who presents with left heel wound. Patient underwent r ight bka and left heel debridement in May by orthopedic surgeon Dr. Joiner. His right BKA has healed without issues, he has no been fitted for a prosthetic yet and therefore is currently still nonambulatory. He is drowsy on exam today, contributing to being poor historian. He has hx of falls, left hip fracture --> left total hip arthroplasty. He says he lives at home with his . Denies any fevers or chills. He has had a duplex in it during his admission and on May that shows monophasic flow relatively throughout the left leg with some areas of elevated velocities. Left PT occlusion. He reports that he is able to float his heel at home majority of the time. He also underwent right upper extremity fistulogram with intervention last admission. He reports his fistula is working fine for dialysis, he dialyzes Tuesday. He denies any significant pain. Has been following at [facility]. He takes aspirin and statin. Patient was sent from wound care clinic due to worsening wounds. Vascular surgery consult. 08/15 Patient evaluated examined at bedside. Resting in bed no major complaints. Planning for arterial study Tuesday. Antibiotics continue. Dialysis Tuesday. 08/16 Patient evaluated examined at bedside. Resting in bed no major complaints. Vascular studies tomorrow. Continue antibiotics. Suspect dialysis tomorrow as well. Hypoglycemic overnight, confused. His is upset about his right shoulder and discussed with vascular surgery will need definitive surgery at some point there is nothing immediately life-threatening today. They really wish to be home for the holidays and have wound care. Plan for dialysis today Vitals/I&O Vitals/I&O: Vital Signs Date Time Temp Pulse Resp B/P (MAP) Pulse Ox O2 Delivery O2 Flow Rate FiO2 08/17/21 03:21 98.5 70 18 122/55 (77) 91 Nasal Cannula 98.5 08/16/21 21:02 2.0 I & O 08/16/21 08/16/21 08/17/21 15:00 23:00 07:00 Intake Total 480 ml Output Total 0 ml Balance 480 ml 0 ml Physical Exam General: Alert, No acute distress, Other (Drowsy, Partially cooperative and responds when repeating ) Heart: Regular rate, Other (LLE edema) Lungs: Clear Abdomen: Soft, No tenderness Extremities: Other (1+ left fem pulse, 2+ right fem. 2+ left popliteal pulse. Cannot appreciate pedal pulses. Monophasic PT and biphasic DP via handheld doppler. Toes are warm with excellent cap refill. RUE fistula with good thrill, slightly pulsatile proximally.) Skin: Other (LLE superficial small wound lateral lower leg. left great toe with small, clean superficial wound. Left posterior heel with soft, dry wound with soft necrotic base, skin edges clean, no fluctuance or drainage, skin edges clean. Right BKA healed. ) Labs Labs: Laboratory Tests Test 08/17/21 03:55 08/17/21 05:56 08/17/21 06:17 08/17/21 06:42 Sodium Level 145 mmol/L (136-145) Potassium Level 4.9 mmol/L (3.5-5.1) Chloride Level 103 mmol/L (98-107) Carbon Dioxide Level 29 mmol/L (21-32) Anion Gap 13 (6-14) Blood Urea Nitrogen 44 mg/dL (8-26) Creatinine 6.1 mg/dL (0.7-1.3) Estimated GFR (Cockcroft-Gault) 9.5 Glucose Level 24 mg/dL (70-99) Calcium Level 8.2 mg/dL (8.5-10.1) Random Vancomycin Level 19.7 mcg/mL Glucose (Fingerstick) 22 mg/dL (70-99) 104 mg/dL (70-99) 76 mg/dL (70-99) Comment Review of Relevant I have reviewed the following items yesenia (where applicable) has been applied. Medications: Current Medications Medications (Trade) Dose Ordered Sig/Celi Route PRN Reason Start Time Stop Time Status Last Admin Dose Admin Vancomycin HCl (Vancomycin Random Level) 1 each 1X ONCE MC 08/17/21 05:00 08/17/21 05:01 DC 08/17/21 05:00 Insulin Human Lispro (HumaLOG) 0-7 UNITS TIDWMEALS SQ 08/16/21 12:00 08/16/21 12:48 Dextrose (Dextrose 50%-Water Syringe) 12.5 gm PRN Q15MIN PRN IV SEE COMMENTS 08/16/21 11:30 08/17/21 05:58 Justifications for Admission Other Justification ESRD, fluid overload JIN ROBLES MD Aug 17, 2021 07:21
[2021-08-17] MEDS ORDERED: IV DEXTROSE 10% 1,000 ML IV ONE (07:30)
[2021-08-17] MEDS ORDERED: IV DEXTROSE 10% 500 ML IV SCH (07:30)
[2021-08-17] MEDS ORDERED: IODIXANOL 320 MG/ML 100 ML VIAL. ONE (07:45)
[2021-08-17] MEDS ORDERED: LIDOCAINE 1% Multi-Dose 20 ML VIAL. ONE (07:45)
[2021-08-17] MEDS: CALCIUM ACETATE 667 MG CAPSULE PO SCH ×3 (08:00→17:00)
[2021-08-17] MEDS: BUDESONIDE 0.5 MG/2 ML NEBU. NEB SCH ×2 (08:00→19:50)
[2021-08-17] MEDS: INSULIN LISPRO 300 UNITS/3 ML VIAL. SQ SCH ×3 (08:00→17:00)
[2021-08-17] MEDS: IPRATRPIUM/ALBUTEROL 0.5/2.5MG 3 ML NEBU. NEB SCH ×4 (08:00→19:50)
[2021-08-17] MEDS: ASPIRIN CHEWABLE 81 MG TABLET. PO SCH (08:00)
--- NOTE | 2021-08-17 08:14 | PHYS DOC ---
MODERATE SEDATION ASSESSMENT RISKS/ALTERNATIVES Risks/Alternatives Risks and alternatives of this type of sedation and procedure discussed with: RISK/ALTERNATIVES: Patient H & P ON CHART H & P H & P on chart and reviewed for co-morbid conditions and appropriate labs. H&P ON CHART: Yes STATUS PREG STATUS ASSESSED: Yes MEDS/ALLERGIES REVIEWED Meds/Allergies Reviewed Medications and Allergies including time and route of recently administered narcotics and sedatives. MEDS/ALLERGIES REVIEWED: Yes ASA RATING ASA RATING: III AIRWAY ASSESSMENT Airway Assessment Airway patency, oral function limitations, presence of caps, crowns, dentures, partials, and ability to extend neck assessed. AIRWAY ASSESSMENT: Yes MALLAMPATI SCORE MALLAMPATI SCORE: I PRE-SEDATION ASSESSMENT PRE-SEDATION ASSESSMENT: Yes LUIS ALFREDO LEE MD Aug 17, 2021 08:14
--- NOTE | 2021-08-17 08:20 | PDOC ---
Provider Note Date of Service: DATE: 08/17/21 TIME: 08:17 Provider Note Provider Note Patient denies any acute complaints this AM. Does have pain in left heel with weight bearing. He has not ambulated for 7 months and has not been fitted for prosthetic. O: MSK: Right BKA well healed SKIN: Left first toe superficial ulceration, Left heel with dry eschar and neuropathic ulcer NEURO: He has reduced sensation to the left heel A: POtassium 4.9 this AM. Awaiting confirmation of COVID vaccine status. Plan to proceed with AARO/LLE angiography with possible intervention today pending above. Explained risks of bleeding, embolism, limb loss, need for future intervention, cardiopulmonary complications and anesthestic complications with angiography and patient agrees to proceed. HE has no known drug allergies. He has no personal or family hx of anesthetic complications Justicifation of Admission Dx: Justifications for Admission: Justification of Admission Dx: N/A LUIS ALFREDO LEE MD Aug 17, 2021 08:20
[2021-08-17] MEDS ORDERED: fentaNYL PF VIAL 100 MCG/2 ML VIAL ONE (08:42)
[2021-08-17] MEDS ORDERED: MIDAZOLAM HCL/PF 5 MG/5 ML VIAL. ONE (08:42)
[2021-08-17] MEDS ORDERED: HEPARIN for IV BOLUS 10,000 UNIT/10 ML VIAL. ONE (08:42)
[2021-08-17] MEDS: FOLIC/VIT B COMP W-C (RENAL) TABLET. PO SCH (09:00)
[2021-08-17] MEDS: LISINOPRIL 20 MG TABLET PO SCH (09:00)
[2021-08-17] MEDS: LACTOBACILLUS RHAMNOSUS GG 1 CAPSULE. PO SCH ×2 (09:00→20:23)
[2021-08-17] MEDS: FUROSEMIDE 80 MG TABLET. PO SCH ×2 (09:00→16:00)
[2021-08-17] MEDS: SENNOSIDES/DOCUSATE 8.6/50MG TABLET. PO SCH ×2 (09:00→20:24)
[2021-08-17] MEDS ORDERED: IODIXANOL 320 MG/ML 100 ML VIAL. IART ONE (09:30)
[2021-08-17] MEDS ORDERED: MIDAZOLAM HCL/PF 5 MG/5 ML VIAL. IV ONE (09:30)
[2021-08-17] MEDS ORDERED: LIDOCAINE 1% Multi-Dose 20 ML VIAL. INJ ONE (09:30)
[2021-08-17] MEDS ORDERED: fentaNYL PF VIAL 100 MCG/2 ML VIAL IV ONE (09:30)
[2021-08-17 10:07] VITALS: BP 139/69
[2021-08-17] MEDS ORDERED: IV NORMAL SALINE 1000ML BAG 1,000 ML IV PRN ×2 (10:15)
[2021-08-17] MEDS ORDERED: ALBUMIN HUMAN 25% 200 ML IV PRN (10:15)
[2021-08-17] MEDS ORDERED: DIALYSIS PATIENT. MC PRN ×2 (10:15)
[2021-08-17 11:00] VITALS: BP 148/63
--- NOTE | 2021-08-17 11:10 | PDOC4 ---
OPERATIVE NOTE Date: Date: Aug 17, 2021 Pre-Op Diagnosis: 1. Poorly controlled diabetes mellitus 2. End-stage renal disease on hemodialysis 3. Left heel ulceration with peripheral arterial disease, dry gangrene Post-Op Diagnosis: Same Procedure Performed: 1. Ultrasound-guided right common femoral artery access 2. Abdominal aortogram 3. Left lower extremity angiogram 4. Placement of closure device right common femoral artery, Angio-Seal 5. Selective catheter placement second order vessel left external iliac artery 6. Moderate sedation, physician supervised, 57 minutes Surgeon: Alexandrea Craig Anesthesia Type: Moderate sedation Blood Loss: minimal Specimans Obtained: none Findings: There was occlusion of the posterior tibial artery from its origin all the way through the plantar arteries into the foot with no visualization of any named vessel in the heel or plantar loop. The SFA was circumferentially calcified wit h a without significant stenosis the popliteal artery was patent the anterior tibial artery is patent with segmental evidence of disease with filling of the metatarsal vessels from the anterior tibial artery into the dorsalis pedis. The peroneal artery has diffuse stenosis near its origin extending down through the distal portion of the peroneal artery with a distal occlusion at the level of the ankle without any filling of the medial calcaneal branch. The aorta and iliac systems are widely patent Complications: None Operative Note: The patient was brought to the catheterization lab and positioned supine. With the presence of a sedation nurse physician monitored moderate sedation was administered throughout the procedure with appropriate cardiac monitoring in place. A total of 2 mg of Versed and 75 mcg of fentanyl were given for sedation time of 57 minutes. The right common femoral artery was accessed under ultrasound guidance with an image saved to the medical record. This was then upsized to a five Maldivian sheath with some difficulty using the five [place] Terumo precision sheath after a Cordis sheath was unable to be passed over a bentson wire. I then positioned Omni Flush catheter in the abdominal aorta and performed an aortogram with findings as above of a widely patent aortoiliac system. Additional oblique view of the left common and external iliac showed this were also widely patent. I then selectively catheterized the left external iliac artery from the aorta using a 035 glide advantage and the Omni Flush catheter. I then performed step angiography of the left lower extremity. This demonstrated a widely patent common femoral artery, patent profunda, patent SFA however there is diffuse circumferential calcification in the SFA. The popliteal artery is patent in the anterior tibial artery and the TP trunk are patent at their origins. There is then the findings of the long segment occlusion of the posterior tibial artery extending into the plantar arteries with no visualized reconstitution of any of the plantar vessels or any evidence of collateralization from the peroneal artery to the heel. There is some moderate stenosis at the origin of the peroneal artery however again there is no visualized closed collateralization to the heel at the location of the wound on his left foot. The anterior tibial artery did give inline flow into the dorsalis pedis into the metatarsals without significant stenosis visualized. Given the above findings, I did not think that there is any reasonable revascularization option to the left foot that is likely to succeed and result in wound healing. I then removed the Omni Flush catheter over an .035 glide advantage and then placed a Angio-Seal device for closure in the right common femoral artery with good hemostasis noted. There is a palpable common femoral artery pulse distal to the closure device as the patient had a prior below-knee amputation on the right side. ALEXANDREA CRAIG MD Aug 17, 2021 11:10
--- NOTE | 2021-08-17 11:14 | PDOC ---
Renal-Progress Notes Subjective Notes Notes NO NEW COMPLAINTS History of Present Illness Hx of present illness RECURRENT PROBLEMS WITH WOUND Vitals Vitals Vital Signs Date Time Temp Pulse Resp B/P (MAP) Pulse Ox O2 Delivery O2 Flow Rate FiO2 08/17/21 10:14 17 99 Nasal Cannula 2.0 08/17/21 10:07 56 08/17/21 07:00 98.0 145/60 (88) 98.0 Weight Weight [ ] I.O. Intake and Output Intake and Output 08/17/21 07:00 Intake Total 480 ml Output Total 0 ml Balance 480 ml Intake Oral 480 ml Output Urine Total 0 ml Labs Labs Laboratory Tests Test 08/17/21 03:55 08/17/21 05:56 08/17/21 06:17 08/17/21 06:42 Sodium Level 145 mmol/L (136-145) Potassium Level 4.9 mmol/L (3.5-5.1) Chloride Level 103 mmol/L (98-107) Carbon Dioxide Level 29 mmol/L (21-32) Anion Gap 13 (6-14) Blood Urea Nitrogen 44 mg/dL (8-26) Creatinine 6.1 mg/dL (0.7-1.3) Estimated GFR (Cockcroft-Gault) 9.5 Glucose Level 24 mg/dL (70-99) Calcium Level 8.2 mg/dL (8.5-10.1) Random Vancomycin Level 19.7 mcg/mL Glucose (Fingerstick) 22 mg/dL (70-99) 104 mg/dL (70-99) 76 mg/dL (70-99) Test 08/17/21 08:36 Glucose (Fingerstick) 71 mg/dL (70-99) Micro Micro Microbiology 08/14/21 Blood Culture - Preliminary, Resulted NO GROWTH AFTER 2 DAYS Review of Systems Constitutional: yes: alert Ears/Nose/Throat: Yes: no symptom reported Eyes: Yes: no symptom reported Pulmonary: Yes no symptom reported Cardiovascular: Yes no symptom reported Gastrointestional: Yes: constipation Genitourinary: Yes: no symptom reported Musculoskeletal: Yes: foot pain Skin: Yes no symptom reported Psychiatric/Neurological: Yes: no symptom reported Endocrine: Yes: no symptom reported Physical Exam General Appearance: no apparent distress Skin: warm Respiratory: bilateral CTA Heart: S1S2 Abdomen: soft, bowel sounds present Genitourinary: bladder flat Extremities: pulses present Neurology: alert Assessment Assessment IMP ESRD ANEMIA DM II HYPOGLYCEMIA PAD ? C DIF S/P RECENT RIGHT BKA LLE WOUND PLAN ANGIO PENDING HD TODAY UF TO TW C DIF PRECAUTIONS RETACRIT WILL FOLLOW LAM ATKINS MD Aug 17, 2021 11:14
--- NOTE | 2021-08-17 15:32 | PDOC ---
Provider Note Date of Service: DATE: 08/17/21 TIME: 15:28 Provider Note Provider Note Patient seen after bedrest time completed. Right groin without hematoma or pulsatile mass. Palpable pulse in common femoral distal to access site given previous right BKA. HE has been wearing stump shrinkers for his right BKA site. Discussed with patient and spouse extensively that angiogram today demonstrated no revascularization options for limb salvage of the left leg. Discussed with patient and spouse that they have option of proceeding with wound care/palliation versus left below knee amputation. Explained that there is a risk of systemic infection associated with the heel ulceration as it is expected that it will continue to worsen. They will consider options. Justicifation of Admission Dx: Justifications for Admission: Justification of Admission Dx: N/A LUIS ALFREDO LEE MD Aug 17, 2021 15:32
[2021-08-17] MEDS ORDERED: VANCOMYCIN 500 MG in IV NORMAL SALINE 100ML 100 ML IV SCH (16:00)
[2021-08-17 19:00] VITALS: BP 160/63
[2021-08-17] MEDS: ATORVASTATIN CALCIUM 10 MG TABLET. PO SCH (20:23)
[2021-08-17] MEDS: ZOLPIDEM 5 MG TABLET. PO PRN (20:24)
[2021-08-17] MEDS: oxyCODONE IR 5 MG TABLET PO PRN (20:24)
[2021-08-17] MEDS: EPOETIN ALFA-EPBX for ESRD 20,000 UNIT/ML VIAL. SQ SCH (21:09)
[2021-08-17 23:15] VITALS: BP 162/60
[2021-08-18 03:23] VITALS: BP 162/64
[2021-08-18 04:58] LABS: HEMATOCRIT 27.7 % (39.0-53.0); HEMOGLOBIN 8.8 g/dL (13.0-17.5); RED BLOOD COUNT 2.97 x10^6/uL (4.30-5.70); RED CELL DISTRIBUTION WIDTH 19.6 % (11.5-14.5); WHITE BLOOD COUNT 6.6 x10^3/uL (4.0-11.0)
[2021-08-18 05:09] LABS: CALCIUM 8.4 mg/dL (8.5-10.1); CREATININE 3.4 mg/dL (0.7-1.3); GFR 18.6; POTASSIUM 4.1 mmol/L (3.5-5.1)
[2021-08-18] MEDS: HEPARIN for SUB-Q USE 5,000 UNIT/ML VIAL. SQ SCH ×2 (05:11→15:07)
[2021-08-18] MEDS: PIPERACILLIN/TAZOBACTAM 2.25 GM in IV NORMAL SALINE 50ML 50 ML IV SCH ×2 (05:12→14:00)
[2021-08-18] MEDS ORDERED: fentaNYL PF VIAL 100 MCG/2 ML VIAL IVP PRN ×2 (06:00)
[2021-08-18] MEDS ORDERED: HYDROmorphone 2 MG/ML VIAL IVP PRN (06:00)
[2021-08-18] MEDS ORDERED: PROCHLORPERAZINE 10 MG/2 ML VIAL. IVP PRN (06:00)
[2021-08-18] MEDS ORDERED: IV RINGERS,LACTATED 1000ML 1,000 ML IV SCH (06:00)
[2021-08-18] MEDS ORDERED: MORPHINE SULFATE 2 MG/ML INJ. IVP PRN (06:00)
[2021-08-18 07:00] VITALS: BP 123/54
[2021-08-18] MEDS ORDERED: PROPOFOL 10 MG/ML (20ML) VIAL. IV ONE (07:01)
[2021-08-18] MEDS ORDERED: FAMOTIDINE 20 MG/2 ML VIAL ONE (07:01)
[2021-08-18] MEDS ORDERED: LIDOCAINE 2% PF 5 ML VIAL. ONE (07:01)
[2021-08-18] MEDS ORDERED: ONDANSETRON PF 4 MG/2 ML VIAL. ONE (07:01)
[2021-08-18] MEDS ORDERED: fentaNYL PF VIAL 100 MCG/2 ML VIAL ONE (07:04)
[2021-08-18] MEDS: BUDESONIDE 0.5 MG/2 ML NEBU. NEB SCH (07:08)
[2021-08-18] MEDS: IPRATRPIUM/ALBUTEROL 0.5/2.5MG 3 ML NEBU. NEB SCH ×2 (07:08→11:13)
[2021-08-18] MEDS ORDERED: IV DEXTROSE 10% 500 ML IV ONE (07:30)
[2021-08-18] MEDS: INSULIN LISPRO 300 UNITS/3 ML VIAL. SQ SCH ×2 (08:00→13:06)
--- NOTE | 2021-08-18 08:32 | PDOC ---
[employer] PROGRESS NOTE Date of Service DOS: DATE: 08/18/21 TIME: 08:30 Chief Complaint Chief Complaint Diabetic foot ulcer, history ESRD CAD hypertension hyperlipidemia -Admit from wound care clinic -Vascular surgery consulted -Broad-spectrum antibiotics. -. Vascular planning for arterial study Tuesday -Nephrology consulted to resume home dialysis -Home meds resumed as indicated -DVT prophylaxis -Plan of care discussed with bedside RN History of Present Illness History of Present Illness This is a 61-year-old male with a history of end-stage renal disease on HD via RUE access and diabetes who presents with left heel wound. Patient underwent r ight bka and left heel debridement in May by orthopedic surgeon Dr. Joiner. His right BKA has healed without issues, he has no been fitted for a prosthetic yet and therefore is currently still nonambulatory. He is drowsy on exam today, contributing to being poor historian. He has hx of falls, left hip fracture --> left total hip arthroplasty. He says he lives at home with his . Denies any fevers or chills. He has had a duplex in it during his admission and on May that shows monophasic flow relatively throughout the left leg with some areas of elevated velocities. Left PT occlusion. He reports that he is able to float his heel at home majority of the time. He also underwent right upper extremity fistulogram with intervention last admission. He reports his fistula is working fine for dialysis, he dialyzes Tuesday. He denies any significant pain. Has been following at [facility]. He takes aspirin and statin. Patient was sent from wound care clinic due to worsening wounds. Vascular surgery consult. 08/15: Patient evaluated examined at bedside. Resting in bed no major complaints. Planning for arterial study Tuesday. Antibiotics continue. Dialysis Tuesday. 08/16: Patient evaluated examined at bedside. Resting in bed no major complaints. Vascular studies tomorrow. Continue antibiotics. Suspect dialysis tomorrow as well. 08/17: Hypoglycemic overnight, confused. His is upset about his right shoulder and discussed with vascular surgery will need definitive left BKA surgery with no amenable limb salvage options. They really wish to be home for the holidays and have wound care. Plan for dialysis today Hypoglycemic to 48 this morning despite no insulin coverage. He is eating cake. Discussed with stepdaughter the plans for wound care over the holidays. No chest pain or shortness of breath. Right shoulder pain is well controlled. Vitals/I&O Vitals/I&O: Vital Signs Date Time Temp Pulse Resp B/P (MAP) Pulse Ox O2 Delivery O2 Flow Rate FiO2 08/18/21 07:08 97 Nasal Cannula 3.0 08/18/21 07:00 97.5 70 18 123/54 (77) 97.5 I & O 08/17/21 08/17/21 08/18/21 15:00 23:00 07:00 Intake Total 240 ml 240 ml Balance 240 ml 240 ml Physical Exam General: Alert, No acute distress, Other (Drowsy, Partially cooperative and responds when repeating ) Heart: Regular rate, Other (LLE edema) Lungs: Clear Abdomen: Soft, No tenderness Extremities: Other (1+ left fem pulse, 2+ right fem. 2+ left popliteal pulse. Cannot appreciate pedal pulses. Monophasic PT and biphasic DP via handheld doppler. Toes are warm with excellent cap refill. RUE fistula with good thrill, slightly pulsatile proximally.) Skin: Other (LLE superficial small wound lateral lower leg. left great toe with small, clean superficial wound. Left posterior heel with soft, dry wound with soft necrotic base, skin edges clean, no fluctuance or drainage, skin edges clean. Right BKA healed. ) Labs Labs: Laboratory Tests Test 08/17/21 08:36 08/17/21 12:08 08/17/21 18:04 08/17/21 19:23 Glucose (Fingerstick) 71 mg/dL (70-99) 69 mg/dL (70-99) 279 mg/dL (70-99) 258 mg/dL (70-99) Test 08/18/21 03:45 08/18/21 07:43 White Blood Count 6.6 x10^3/uL (4.0-11.0) Red Blood Count 2.97 x10^6/uL (4.30-5.70) Hemoglobin 8.8 g/dL (13.0-17.5) Hematocrit 27.7 % (39.0-53.0) Mean Corpuscular Volume 93 fL (79-100) Mean Corpuscular Hemoglobin 30 pg (25-35) Mean Corpuscular Hemoglobin Concent 32 g/dL (31-37) Red Cell Distribution Width 19.6 % (11.5-14.5) Platelet Count 114 x10^3/uL (140-400) Sodium Level 142 mmol/L (136-145) Potassium Level 4.1 mmol/L (3.5-5.1) Chloride Level 100 mmol/L (98-107) Carbon Dioxide Level 31 mmol/L (21-32) Anion Gap 11 (6-14) Blood Urea Nitrogen 20 mg/dL (8-26) Creatinine 3.4 mg/dL (0.7-1.3) Estimated GFR (Cockcroft-Gault) 18.6 Glucose Level 74 mg/dL (70-99) Calcium Level 8.4 mg/dL (8.5-10.1) Glucose (Fingerstick) 46 mg/dL (70-99) Comment Review of Relevant I have reviewed the following items yesenia (where applicable) has been applied. Medications: Current Medications Medications (Trade) Dose Ordered Sig/Celi Route PRN Reason Start Time Stop Time Status Last Admin Dose Admin Vancomycin HCl 500 mg/Sodium Chloride 100 ml @ 100 mls/hr QMWF IV 08/17/21 16:00 08/17/21 18:37 Heparin Sodium/ Sodium Chloride (HEPARIN for ARTERIAL LINE FLUSH) 1,000 unit 1X ONCE IART 08/17/21 09:30 08/17/21 09:41 DC 08/17/21 10:13 Midazolam HCl (Versed) 5 mg 1X ONCE IV 08/17/21 09:30 08/17/21 09:41 DC 08/17/21 10:13 Fentanyl Citrate (Fentanyl 2ml Vial) 100 mcg 1X ONCE IV 08/17/21 09:30 08/17/21 09:41 DC 08/17/21 10:14 Iodixanol (Visipaque 320) 100 ml 1X ONCE IART 08/17/21 09:30 08/17/21 09:42 DC 08/17/21 10:13 Lidocaine HCl (Lidocaine 1% 20ml Vial) 20 ml 1X ONCE INJ 08/17/21 09:30 08/17/21 09:42 DC 08/17/21 10:13 Justifications for Admission Other Justification ESRD, fluid overload JIN ROBLES MD Aug 18, 2021 08:32
[2021-08-18] MEDS: oxyCODONE IR 5 MG TABLET PO PRN ×2 (09:12→12:59)
[2021-08-18] MEDS: FOLIC/VIT B COMP W-C (RENAL) TABLET. PO SCH (09:12)
[2021-08-18] MEDS: CALCIUM ACETATE 667 MG CAPSULE PO SCH ×2 (09:12→12:59)
[2021-08-18] MEDS: ASPIRIN CHEWABLE 81 MG TABLET. PO SCH (09:12)
[2021-08-18] MEDS: SENNOSIDES/DOCUSATE 8.6/50MG TABLET. PO SCH (09:12)
[2021-08-18] MEDS: LEVOTHYROXINE 100 MCG TABLET PO SCH (09:12)
[2021-08-18] MEDS: LACTOBACILLUS RHAMNOSUS GG 1 CAPSULE. PO SCH (09:13)
[2021-08-18] MEDS: FUROSEMIDE 80 MG TABLET. PO SCH (09:13)
[2021-08-18] MEDS: LISINOPRIL 20 MG TABLET PO SCH (09:13)
--- NOTE | 2021-08-18 10:55 | PDOC ---
Renal-Progress Notes Subjective Notes Notes NO NEW COMPLAINTS History of Present Illness Hx of present illness UNCHANGED Vitals Vitals Vital Signs Date Time Temp Pulse Resp B/P (MAP) Pulse Ox O2 Delivery O2 Flow Rate FiO2 08/18/21 09:44 97 Nasal Cannula 3.0 08/18/21 09:13 70 123/54 08/18/21 07:00 97.5 18 97.5 Weight Weight [ ] I.O. Intake and Output Intake and Output 08/18/21 07:00 Intake Total 480 ml Balance 480 ml Intake Oral 480 ml # Bowel Movements 2 Labs Labs Laboratory Tests Test 08/17/21 12:08 08/17/21 18:04 08/17/21 19:23 08/18/21 03:45 Glucose (Fingerstick) 69 mg/dL (70-99) 279 mg/dL (70-99) 258 mg/dL (70-99) White Blood Count 6.6 x10^3/uL (4.0-11.0) Red Blood Count 2.97 x10^6/uL (4.30-5.70) Hemoglobin 8.8 g/dL (13.0-17.5) Hematocrit 27.7 % (39.0-53.0) Mean Corpuscular Volume 93 fL (79-100) Mean Corpuscular Hemoglobin 30 pg (25-35) Mean Corpuscular Hemoglobin Concent 32 g/dL (31-37) Red Cell Distribution Width 19.6 % (11.5-14.5) Platelet Count 114 x10^3/uL (140-400) Sodium Level 142 mmol/L (136-145) Potassium Level 4.1 mmol/L (3.5-5.1) Chloride Level 100 mmol/L (98-107) Carbon Dioxide Level 31 mmol/L (21-32) Anion Gap 11 (6-14) Blood Urea Nitrogen 20 mg/dL (8-26) Creatinine 3.4 mg/dL (0.7-1.3) Estimated GFR (Cockcroft-Gault) 18.6 Glucose Level 74 mg/dL (70-99) Calcium Level 8.4 mg/dL (8.5-10.1) Test 08/18/21 07:43 Glucose (Fingerstick) 46 mg/dL (70-99) Micro Micro Microbiology 08/14/21 Blood Culture - Preliminary, Resulted NO GROWTH AFTER 3 DAYS Review of Systems Constitutional: yes: alert Ears/Nose/Throat: Yes: no symptom reported Eyes: Yes: no symptom reported Pulmonary: Yes no symptom reported Cardiovascular: Yes no symptom reported Gastrointestional: Yes: constipation Genitourinary: Yes: no symptom reported Musculoskeletal: Yes: foot pain Skin: Yes no symptom reported Psychiatric/Neurological: Yes: no symptom reported Endocrine: Yes: no symptom reported Physical Exam General Appearance: no apparent distress Skin: warm Respiratory: bilateral CTA Heart: S1S2 Abdomen: soft, bowel sounds present Genitourinary: bladder flat Extremities: pulses present Neurology: alert Assessment Assessment IMP ESRD ANEMIA DM II HYPOGLYCEMIA PAD S/P RECENT RIGHT BKA LLE WOUND PLAN PROB NEEDS L BKA HD TOMORROW FABIAN TO CONTINUE WILL FOLLOW LAM ATKINS MD Aug 18, 2021 10:54
[2021-08-18 11:00] VITALS: BP 150/53
[2021-08-18] MEDS: VANCOMYCIN PER PHARMACY MC PRN (11:10)
[2021-08-18] MEDS ORDERED: AMOX1TAB10 PO (12:44)
[2021-08-18] MEDS ORDERED: DOXY-181 PO (12:44)
--- NOTE | 2021-08-18 12:49 | SNU/HH DC ---
DISCHARGE WITH HOME HEALTH DISCHARGE INFORMATION: Discharge Date: Aug 18, 2021 Final Diagnosis: Left leg dry gangrene Condition on Discharge: Stable CODE STATUS: Code Status: Full HOME HEALTH: Face to Face: I certify this patient is under my care and that I, or a nurse practitioner or physician's obstetric assistant working with me, had a face to face encounter that meets the physician face to face encounter requirements with this patient on 08/18/2021. Medical Complications: DM, HTN, Other (ESRD) Care Home For: Assess & Educate Safety, Diabetic Care, Medication Zia sierra, torts law professor For Eval/Treatment: Yes Physical Therapy For: Evalulation/Treatment Occupational Therapy For: Evaluation/Treatment Pt Meets Homebound Status: Extreme weakness w/ amb., Limited distance walking POST DISCHARGE ORDERS: Activity Instructions for Disc: Activity as tolerated Weight Bearing Status after Di: As tolerated Bathing Instructions: Shower-keep dressing dry DIET AFTER DISCHARGE: Renal Wound/Incision Care: Keep wound/cast CDI, Keep wound elevated, Change dressing, Reinforce dressing PRN Other wound/incision instructi: Dry dressing to left foot. CHECKS AFTER DISCHARGE: Checks after discharge: Check blood press - daily, Check blood sugar, ac/hs, Check your Temp as needed, Weigh Yourself Daily FOLLOW-UP: Additional Instructions: Vascular surgery follow up Follow up with wound clinic TREATMENT/EQUIPMENT ORDERS: Adaptive Equipment Issued: Walker Discharge Respiratory Equipmen: Oxygen CERTIFICATION STATEMENT: Certification Statement: Certification Statement: Based on the above finding, I certify that this patient is confined to the home and needs intermittent longterm care, physical therapy and/or speech therapy, or continues to need occupational therapy.~ This patient is under my care, and I have initiated the establishment of the plan of care.~ This patient will be followed by myself or a community physician who will periodically review the plan of care. Home Meds Active Scripts Amoxicillin/Potassium Clav (AMOX TR-K CLV 500-125 MG TAB) 1 Each Tablet, 1 TAB PO DAILY for Celulitis for 7 Days, #7 TAB Prov:JIN ROBLES MD 08/18/21 Doxycycline Monohydrate (DOXYCYCLINE MONOHYDRATE) 100 Mg Capsule, 1 CAP PO DAILY for Cellulitis for 7 Days, #7 CAP Prov:JIN ROBLES MD 08/18/21 Hydrocodone/Acetaminophen (Hydrocodone-Acetamin 7.5-325) 1 Each Tablet, 1 EACH PO Q6H for pain for 7 Days, #28 TAB Prov:RENETTA CINTRON MD 08/04/21 Insulin Lispro (Admelog) 100 Unit/1 Ml Vial, 0-5 UNITS SQ QIDACHS for hyperglycemia for 30 Days, #1 VIAL Prov:JIN REYES MD 07/13/21 Ascorbic Acid (VITAMIN C) 500 Mg Tablet, 500 MG PO DAILY for SUPPLEMENT for 30 Days, #30 TAB Prov:PABLO SHERMAN MD 11/26/19 Folic Acid/Vitamin B Comp W-C (DORIE-CONSTANCE TABLET) 0.8 Mg Tablet, 1 TAB PO DAILY for SUPPLEMENT for 30 Days, #30 TAB Prov:PABLO SHERMAN MD 11/26/19 Docusate Sodium (DOK) 100 Mg Capsule, 100 MG PO PRN BID PRN for CONSTIPATION for 28 Days, #30 CAP Prov:PABLO SHERMAN MD 11/26/19 Lactobacillus Rhamnosus Gg (CULTURELLE) 1 Each Cap.sprink, 1 CAP PO BID for SUPPLEMENT for 30 Days, #60 CAP Prov:PABLO SHERMAN MD 09/13/19 Budesonide (BUDESONIDE) 0.5 Mg/2 Ml Ampul.neb, 0.5 MG NEB RTBID for copd for 30 Days, #60 EACH Prov:PABLO SHERMAN MD 08/29/18 Aspirin (ASPIRIN) 81 Mg Tab.chew, 81 MG PO DAILYWBKFT for heart health for 30 Days, #30 TAB.CHEW Prov:PABLO SHERMAN MD 08/29/18 Ipratropium/Albuterol Sulfate (DUONEB 0.5-3(2.5) MG/3 ML) 3 Ml Ampul.neb, 3 ML NEB RTQID for copd for 30 Days, #120 EACH Prov:PABLO SHERMAN MD 08/29/18 Reported Medications Furosemide (FUROSEMIDE) 80 Mg Tablet, 1 TAB PO BID for watere retention, #30 TAB 5 Refills 08/13/21 Lisinopril (LISINOPRIL) 20 Mg Tablet, 1 TAB PO DAILY for high blood pressure, #30 TAB 5 Refills 08/13/21 Levothyroxine Sodium (LEVOTHYROXINE SODIUM) 100 Mcg Tablet, 300 MCG PO DAILYAC for THYROID SUPPLEMENT, #30 TAB 0 Refills 06/16/21 Atorvastatin Calcium (ATORVASTATIN CALCIUM) 10 Mg Tablet, 10 MG PO HS for FOR CHOLESTEROL, #30 TAB 0 Refills 05/29/21 [place]-3 Fatty Acids/Fish Oil (OMEGA 3 FISH OIL SOFTGEL) 1 Each Capsule.dr, 1 EACH PO DAILY for supplement, CAP 11/07/18 Calcium Acetate (CALCIUM ACETATE) 667 Mg Tablet, 667 MG PO TIDWMEALS for DIALYSIS PATIENTS, CAP 11/07/18 Acetaminophen (TYLENOL) 325 Mg Tablet, 650 MG PO PRN Q6HRS for mild pain, TAB 10/02/18 Discontinued Reported Medications Ferrous Sulfate (FERROUS SULFATE) 325 Mg Tablet, 1 TAB PO DAILY for Dialysis, #30 TAB 3 Refills 09/15/18 Discontinued Scripts Vancomycin Hcl (VANCOMYCIN HCL) 125 Mg Capsule, 1 CAP PO QID for c diff colitis for 14 Days, #56 CAP 0 Refills Prov:RENETTA CINTRON MD 08/04/21 Insulin Glargine,Hum.rec.anlog (LANTUS SOLOSTAR) 100 Unit/1 Ml Insuln.pen, 10 UNIT SQ QHS for dm, #15 ML 3 Refills Prov:RENETTA CINTRON MD 08/04/21 Hydrocortisone (CORTEF) 10 Mg Tablet, 10 MG PO DAILYWBKFT for hypoglycemia for 3 Days, #3 TAB Prov:JIN REYES MD 07/13/21 JIN ROBLES MD Aug 18, 2021 12:49
--- NOTE | 2021-08-18 14:53 | NUR ---
MEÑO following. Discussed with RN, pt's spouse requesting a antoine lift. MEÑO attempted to reach [facility] however no option to leave a voicemail. MEÑO notified RN that pt needs to have a hospital bed to have a lift, so a script for the lift can be provided to pt to take home and can get it through the company in which they have the hospital bed through if they have one. Awaiting discharge orders for home health, likely discharge home today. MEÑO to arrange transportation. MEÑO will continue to follow. Addendum: 08/18/21 at 1552 by JER WILDER Clinicals and discharge orders faxed to [facility]. Transportation arranged with [facility] for 1629. RN notified. Pt's spouse aware.
[2021-08-18 15:00] VITALS: BP 152/55
--- NOTE | 2021-08-18 15:08 | PDOC3 ---
Discharge Summary Visit Information Date of Admission: Aug 13, 2021 Date of Discharge: Aug 18, 2021 Admitting Diagnosis: Left leg dry gangrene Final Diagnosis PAD left leg, dry gangrene Brief Hospital Course Allergies Allergies Coded Allergies Type Severity Reaction Last Updated Verified No Known Drug Allergies 06/16/21 No Vital Signs Vital Signs Date Time Temp Pulse Resp B/P (MAP) Pulse Ox O2 Delivery O2 Flow Rate FiO2 08/18/21 12:59 96 Nasal Cannula 4.0 08/18/21 11:00 97.8 79 18 150/53 (85) 97.8 Lab Results Laboratory Tests Test 08/17/21 03:55 08/17/21 05:56 08/17/21 06:17 08/17/21 06:42 Sodium Level 145 mmol/L (136-145) Potassium Level 4.9 mmol/L (3.5-5.1) Chloride Level 103 mmol/L (98-107) Carbon Dioxide Level 29 mmol/L (21-32) Anion Gap 13 (6-14) Blood Urea Nitrogen 44 mg/dL (8-26) Creatinine 6.1 mg/dL (0.7-1.3) Estimated GFR (Cockcroft-Gault) 9.5 Glucose Level 24 mg/dL (70-99) Calcium Level 8.2 mg/dL (8.5-10.1) Random Vancomycin Level 19.7 mcg/mL Glucose (Fingerstick) 22 mg/dL (70-99) 104 mg/dL (70-99) 76 mg/dL (70-99) Test 08/17/21 08:36 08/17/21 12:08 08/17/21 18:04 08/17/21 19:23 Glucose (Fingerstick) 71 mg/dL (70-99) 69 mg/dL (70-99) 279 mg/dL (70-99) 258 mg/dL (70-99) Test 08/18/21 03:45 08/18/21 07:43 White Blood Count 6.6 x10^3/uL (4.0-11.0) Red Blood Count 2.97 x10^6/uL (4.30-5.70) Hemoglobin 8.8 g/dL (13.0-17.5) Hematocrit 27.7 % (39.0-53.0) Mean Corpuscular Volume 93 fL (79-100) Mean Corpuscular Hemoglobin 30 pg (25-35) Mean Corpuscular Hemoglobin Concent 32 g/dL (31-37) Red Cell Distribution Width 19.6 % (11.5-14.5) Platelet Count 114 x10^3/uL (140-400) Sodium Level 142 mmol/L (136-145) Potassium Level 4.1 mmol/L (3.5-5.1) Chloride Level 100 mmol/L (98-107) Carbon Dioxide Level 31 mmol/L (21-32) Anion Gap 11 (6-14) Blood Urea Nitrogen 20 mg/dL (8-26) Creatinine 3.4 mg/dL (0.7-1.3) Estimated GFR (Cockcroft-Gault) 18.6 Glucose Level 74 mg/dL (70-99) Calcium Level 8.4 mg/dL (8.5-10.1) Glucose (Fingerstick) 46 mg/dL (70-99) Laboratory Tests Test 08/17/21 18:04 08/17/21 19:23 08/18/21 03:45 08/18/21 07:43 Glucose (Fingerstick) 279 mg/dL (70-99) 258 mg/dL (70-99) 46 mg/dL (70-99) White Blood Count 6.6 x10^3/uL (4.0-11.0) Red Blood Count 2.97 x10^6/uL (4.30-5.70) Hemoglobin 8.8 g/dL (13.0-17.5) Hematocrit 27.7 % (39.0-53.0) Mean Corpuscular Volume 93 fL (79-100) Mean Corpuscular Hemoglobin 30 pg (25-35) Mean Corpuscular Hemoglobin Concent 32 g/dL (31-37) Red Cell Distribution Width 19.6 % (11.5-14.5) Platelet Count 114 x10^3/uL (140-400) Sodium Level 142 mmol/L (136-145) Potassium Level 4.1 mmol/L (3.5-5.1) Chloride Level 100 mmol/L (98-107) Carbon Dioxide Level 31 mmol/L (21-32) Anion Gap 11 (6-14) Blood Urea Nitrogen 20 mg/dL (8-26) Creatinine 3.4 mg/dL (0.7-1.3) Estimated GFR (Cockcroft-Gault) 18.6 Glucose Level 74 mg/dL (70-99) Calcium Level 8.4 mg/dL (8.5-10.1) Brief Hospital Course This is a 61-year-old male with a history of end-stage renal disease on HD via RUE access and diabetes who presents with left heel wound. Patient underwent right bka and left heel debridement in May by orthopedic surgeon Dr. Joiner. His right BKA has healed without issues, he has no been fitted for a prosthetic yet and therefore is currently still nonambulatory. He is drowsy on exam today, contributing to being poor historian. He has hx of falls, left hip fracture --> left total hip arthroplasty. He says he lives at home with his . Denies any fevers or chills. He has had a duplex in it during his admi ssi and on May that shows monophasic flow relatively throughout the left leg with some areas of elevated velocities. Left PT occlusion. He reports that he is able to float his heel at home majority of the time. He also underwent right upper extremity fistulogram with intervention last admission. He reports his fistula is working fine for dialysis, he dialyzes Tuesday. He denies any significant pain. Has been following at [facility]. He takes aspirin and statin. Patient was sent from wound care clinic due to worsening wounds. Vascular surgery consult. 08/15: Patient evaluated examined at bedside. Resting in bed no major complaints. Planning for arterial study Tuesday. Antibiotics continue. Dialysis Tuesday. 08/16: Patient evaluated examined at bedside. Resting in bed no major complaints. Vascular studies tomorrow. Continue antibiotics. Suspect dialysis tomorrow as well. 08/17: Hypoglycemic overnight, confused. His is upset about his right shoulder and discussed with vascular surgery will need definitive left BKA surgery with no amenable limb salvage options. They really wish to be home for the holidays and have wound care. Plan for dialysis today Hypoglycemic to 48 this morning despite no insulin coverage. He is eating cake. Discussed with stepdaughter the plans for wound care over the holidays. No chest pain or shortness of breath. Right shoulder pain is well controlled. Glucose improved significantly throughout the day. After discussion outpatient vascular surgery patient will go home with outpatient wound care though it is not an ideal plan we will continue antibiotics p.o. for the next week doxycycline Augmentin and call to schedule left BKA electively Consults: Vascular surgery Problem list: Diabetic foot ulcer on left leg with dry gangrene PAD s/p RLE BKA. on 06/20/2021 S/P Right below knee amputation ESRD Acute encephalopathy - metabolic from his hypoglycemia, requiring corticosteroid stimulation Anemia - of chronic renal insufficiency Generalized debility Chronic right upper extremity swelling status post fistulogram ESRD on HD - misses once per week fairly regularly.Will consult nephrology CAD with stent at RCA, LCx - taking meds, will cont Dm2 on insulin - very brittle historically, will reduce his home lantus to 8u. previously required D10 for hypoglycemia earlier this year HLD - cont statin Previous smoker Status post left hip repair recently for fracture. Greater than 30 minutes spent on d/c home with home health Discharge Information Condition at Discharge: Stable Follow Up: Weeks (1) Disposition/Orders: D/C to Home w/ HH Scheduled Acetaminophen (Tylenol) 325 Mg Tablet, 650 MG PO PRN Q6HRS for mild pain, (Reported) Entered as Reported by: VICKY PATE on 10/02/18 1856 Last Action: HELD on 08/13/211738 by JIN REYES MD Amoxicillin/Potassium Clav (Amox Tr-K Clv 500-125 Mg Tab) 1 Each Tablet, 1 TAB PO DAILY for Celulitis for 7 Days, #7 Prescribed by: JIN ROBLES MD on 08/18/21 1244 Ascorbic Acid (Vitamin C) 500 Mg Tablet, 500 MG PO DAILY for SUPPLEMENT for 30 Days, #30 Prescribed by: PABLO SHERMAN MD on 11/26/19 1605 Last Taken: Unknown Dose on 08/12/21 0000 Last Action: HELD on 08/13/211738 by JIN REYES MD Aspirin (Aspirin) 81 Mg Tab.chew, 81 MG PO DAILYWBKFT for heart health for 30 Days, #30 Prescribed by: PABLO SHERMAN MD on 08/29/18 1346 Last Taken: Unknown Dose on 08/12/21 0900 Last Action: Continued on 08/13/211738 by JIN REYES MD Atorvastatin Calcium (Atorvastatin Calcium) 10 Mg Tablet, 10 MG PO HS for FOR CHOLESTEROL, #30 Ref 0 (Reported) Entered as Reported by: JACQUIE HEADLEY RN on 05/29/212201 Last Taken: Unknown Dose on 08/12/212099 Last Action: Continued on 08/13/211738 by JIN REYES MD Budesonide (Budesonide) 0.5 Mg/2 Ml Ampul.neb, 0.5 MG NEB RTBID for copd for 30 Days, #60 Prescribed by: PABLO SHERMAN MD on 08/29/18 1346 Last Action: Continued on 08/13/211738 by JIN REYES MD Calcium Acetate (Calcium Acetate) 667 Mg Tablet, 667 MG PO TIDWMEALS for DIALYSIS PATIENTS, (Reported) Entered as Reported by: KWABENA RODRIGUEZ on 11/07/18 0315 Last Taken: Unknown Dose on 08/12/212099 Last Action: Converted on 08/13/211738 by JIN REYES MD Doxycycline Monohydrate (Doxycycline Monohydrate) 100 Mg Capsule, 1 CAP PO DAILY for Cellulitis for 7 Days, #7 Prescribed by: JIN ROBLES MD on 08/18/21 1244 Folic Acid/Vitamin B Comp W-C (Madai-Sean Tablet) 0.8 Mg Tablet, 1 TAB PO DAILY for SUPPLEMENT for 30 Days, #30 Prescribed by: PABLO SHERMAN MD on 11/26/19 1605 Last Taken: Unknown Dose on 08/12/21 0900 Last Action: Continued on 08/13/211738 by JIN REYES MD Furosemide (Furosemide) 80 Mg Tablet, 1 TAB PO BID for watere retention, #30 Ref 5 (Reported) Entered as Reported by: ELIZABETH CLEMENS on 08/13/21 1537 Last Action: Continued on 08/13/211738 by JIN REYES MD Hydrocodone/Acetaminophen (Hydrocodone-Acetamin 7.5-325) 1 Each Tablet, 1 EACH PO Q6H for pain for 7 Days, #28 Prescribed by: SAIDA JACKSON on 08/04/21 0950 Last Taken: Unknown Dose on 08/13/21 0900 Last Action: HELD on 08/13/211738 by JIN REYES MD Insulin Lispro (Admelog) 100 Unit/1 Ml Vial, 0-5 UNITS SQ QIDACHS for hyperglycemia for 30 Days, #1 Prescribed by: JIN REYES MD on 07/13/21 1059 Last Taken: Unknown Dose on 08/13/21 0800 Last Action: Last Taken Edited on 08/13/211532 by ELIZABETH CLEMENS Ipratropium/Albuterol Sulfate (Duoneb 0.5-3(2.5) Mg/3 Ml) 3 Ml Ampul.neb, 3 ML NEB RTQID for copd for 30 Days, #120 Prescribed by: APBLO SHERMAN MD on 08/29/18 1346 Last Taken: Unknown Dose on 07/30/21 Last Action: HELD on 08/13/211738 by JIN REYES MD Lactobacillus Rhamnosus Gg (Culturelle) 1 Each Cap.sprink, 1 CAP PO BID for SUPPLEMENT for 30 Days, #60 Prescribed by: PABLO SHERMAN MD on 09/13/19 1319 Last Action: HELD on 08/13/211738 by JIN REYES MD Levothyroxine Sodium (Levothyroxine Sodium) 100 Mcg Tablet, 300 MCG PO DAILYAC for THYROID SUPPLEMENT, #30 Ref 0 (Reported) Entered as Reported by: BETHANY COVINGTON on 06/16/21 1843 Last Taken: Unknown Dose on 08/12/21 0900 Last Action: Continued on 08/13/211738 by JIN REYES MD Lisinopril (Lisinopril) 20 Mg Tablet, 1 TAB PO DAILY for high blood pressure, #30 Ref 5 (Reported) Entered as Reported by: ELIZABETH CLEMENS on 08/13/21 153 Last Action: Continued on 08/13/211738 by JIN REYES MD [place]-3 Fatty Acids/Fish Oil ([place] 3 Fish Oil Softgel) 1 Each Capsule.dr, 1 EACH PO DAILY for supplement, (Reported) Entered as Reported by: KWABENA RODRIGUEZ on 11/07/18 0315 Last Taken: Unknown Dose on 08/12/21 2100 Last Action: HELD on 08/13/211738 by JIN REYES MD Scheduled PRN Docusate Sodium (Dok) 100 Mg Capsule, 100 MG PO PRN BID PRN for CONSTIPATION for 28 Days, #30 Prescribed by: PABLO SHERMAN MD on 11/26/19 1605 Last Taken: Unknown Dose on 08/12/21 2100 Last Action: HELD on 08/13/211738 by JIN REYES MD Discontinued Medications Ferrous Sulfate (Ferrous Sulfate) 325 Mg Tablet, 1 TAB PO DAILY for Dialysis, #30 Ref 3 (Reported) Entered as Reported by: MYNOR SIMON on 09/15/18 115 Last Taken: Unknown Dose on 08/12/21 0900 Last Action: HELD on 08/13/211738 by JIN REYES MD Hydrocortisone (Cortef) 10 Mg Tablet, 10 MG PO DAILYWBKFT for hypoglycemia for 3 Days, #3 Prescribed by: JIN REYES MD on 07/13/21 1059 Last Taken: Unknown Dose on 08/13/21 0800 Last Action: HELD on 08/13/211738 by JIN REYES MD Insulin Glargine,Hum.rec.anlog (Lantus Solostar) 100 Unit/1 Ml Insuln.pen, 10 UNIT SQ QHS for dm, #15 Ref 3 Prescribed by: SAIDA JACKSON on 08/04/21945 Last Action: Converted on 08/13/211738 by JIN REYES MD Vancomycin Hcl (Vancomycin Hcl) 125 Mg Capsule, 1 CAP PO QID for c diff colitis for 14 Days, #56 Ref 0 Prescribed by: SAIDA JACKSON on 08/04/21945 Last Taken: Unknown Dose on 08/13/21 09 Last Action: HELD on 08/13/211738 by JIN REYES MD Justicifation of Admission Dx: Justifications for Admission: Justification of Admission Dx: N/A JIN ROBLES MD Aug 18, 2021 15:08
--- NOTE | 2021-08-18 18:36 | NUR ---
pt was discharged home today with home health. the pt was picked up my [facility] at 1833 to be taken home for the holidays. the pt will most likely be coming back for the left BKA after the holidays. Fly Cantu RN
[2021-08-18] MEDS ORDERED: IPRATRPIUM/ALBUTEROL 0.5/2.5MG 3 ML NEBU. NEB SCH (20:00)
[2021-08-20] MEDS ORDERED: INSULIN GLARGINE SYRINGE. SQ SCH (21:00)
== END 2021-08-18 18:42 | disposition home health service (06) | DRG 299 ==
LOC: 5 NORTH 14:14
PROVIDERS: ADMIT Internal Medicine; ATTEND Internal Medicine
PROC: B4101ZZ Fluoroscopy of Abdominal Aorta using Low Osmolar Contrast (ICD-10-PCS; principal; 2021-08-17)
PROC: B41D1ZZ Fluoroscopy of Aorta and Bilateral Lower Extremity Arteries using Low Osmolar Contrast (ICD-10-PCS; 2021-08-17)
DX: E11.52 Type 2 diabetes mellitus with diabetic peripheral angiopathy with gangrene (principal); N18.6 End stage renal disease; G93.41 Metabolic encephalopathy; I12.0 Hypertensive chronic kidney disease with stage 5 chronic kidney disease or end stage renal disease; L97.429 Non-pressure chronic ulcer of left heel and midfoot with unspecified severity; L97.509 Non-pressure chronic ulcer of other part of unspecified foot with unspecified severity; D64.9 Anemia, unspecified; E03.9 Hypothyroidism, unspecified; E11.22 Type 2 diabetes mellitus with diabetic chronic kidney disease; E11.621 Type 2 diabetes mellitus with foot ulcer; E11.649 Type 2 diabetes mellitus with hypoglycemia without coma; E78.5 Hyperlipidemia, unspecified; E87.70 Fluid overload, unspecified; I25.10 Atherosclerotic heart disease of native coronary artery without angina pectoris; L97.529 Non-pressure chronic ulcer of other part of left foot with unspecified severity; Z79.4 Long term (current) use of insulin; Z79.82 Long term (current) use of aspirin; Z82.49 Family history of ischemic heart disease and other diseases of the circulatory system; Z83.3 Family history of diabetes mellitus; Z87.891 Personal history of nicotine dependence; Z89.511 Acquired absence of right leg below knee; Z91.81 History of falling; Z95.5 Presence of coronary angioplasty implant and graft; Z96.642 Presence of left artificial hip joint; Z99.2 Dependence on renal dialysis; E21.3 Hyperparathyroidism, unspecified; F32.A Depression, unspecified; K21.9 Gastro-esophageal reflux disease without esophagitis
CPT/HCPCS: 36246; G0269; 36415; 73030; 75625; 75710; 76937; 80048; 80053; 80202; 82962; 85025; 85027; 87040; 94640; 99152; 99153; C1894; J1644; J1815; J2250; J2270; J2405; J2543; J2704; J3010; J3370; J3490; J7040; Q9967; G0378; J7626

== ENCOUNTER 2021-11-13 21:47 | Inpatient (IN) | payer MEDICARE ==
[~2021-11-13] VITALS: Ht 175.3 cm; Wt 46.8 kg
[~2021-11-13 21:47] MED LIST changes: +CHOL500045 PO; +DOXY-181 PO
--- NOTE | 2021-11-13 22:01 | PHYS DOC ---
Past Medical History Past Medical History: COPD, Diabetes-Type II, High Cholesterol, Hypertension, Hypothyroid, Renal Failure Additional Past Medical Histor: CARDIAC ARREST DURING DIALYSIS 09/12 Past Surgical History: Other Additional Past Surgical Histo: unable to obtain Smoking Status: Former Smoker Alcohol Use: None Drug Use: None General Adult EDM: Chief Complaint: SHORTNESS OF BREATH HPI: HPI: 61-year-old male past medical history of hypothyroidism, diabetes, hypertension, hyperlipidemia, hypothyroidism, COPD on 4 L nasal cannula and ESRD (MWF, anuric), presents to the ED brought in by EMS from home with complaints of shortness of breath stating this feels like his typical fluid overload. Patient missed his hemodialysis today due to a follow-up appointment regarding history of right broken shoulder. Reports no medications were changed. Patient arrives 93% on 10 L nonrebreather, s/p 1 duoneb. Takes 4 duo nebs daily and 1 qhs. Has received his Covid vaccine x2 but has not been boostered. Meds reviewed-takes lasix 80mg bid. Has petechia and bruising to right cheek, anterior neck and posterior occiput-when asked if he fell he states "I don't know." Pt is alert and oriented but not fully cooperative which limits history (I suspect due to his work of breathing). Review of Systems: Review of Systems: Constitutional: Denies fever or chills. [] Eyes: Denies change in visual acuity. [] HENT: Denies nasal congestion or sore throat. [] Respiratory: Denies cough or hemoptysis Cardiovascular: Denies chest pain or edema. [] GI: Denies abdominal pain, nausea, vomiting, bloody stools or diarrhea. [] : Denies saddle anesthesia or hematuria Musculoskeletal: Denies back pain or joint pain. [] Integument: Denies rash or diaphoresis Neurologic: Denies headache, focal weakness or sensory changes. [] Endocrine: Denies polyuria or polydipsia. [] Lymphatic: Denies swollen glands. [] Psychiatric: Denies depression or anxiety. [] Heart Score: C/O Chest Pain: No Risk Factors: Risk Factors: DM, Current or recent (<one month) smoker, HTN, HLP, family history of CAD, obesity. Risk Scores: Score 0 - 3: 2.5% MACE over next 6 weeks - Discharge Home Score 4 - 6: 20.3% MACE over next 6 weeks - Admit for Clinical Observation Score 7 - 10: 72.7% MACE over next 6 weeks - Early Invasive Strategies Allergies: Allergies: Allergies Coded Allergies Type Severity Reaction Last Updated Verified No Known Drug Allergies 08/28/21 No Physical Exam: PE: Constitutional: Frail-appearing, thin, cachetic HENT: Bruising and petechiae noted over patient's right cheek &neck, petechia vs spider angiomas on posterior occiput Eyes: EOMI, conjunctiva normal, no discharge. Neck: Normal range of motion, supple, no nuchal rigidity or meningismus Cardiovascular: S1/2 present, regular rhythm Lungs & Thorax: Speaking in full sentences, bilateral equal chest rise, tachypnea present with increased work of breathing, Dexcom present right chest, on 10L NC on arrival, no wheezing/crackles on physical exam bilaterally Abdomen: soft, no tenderness, Skin: Warm, dry, no erythema, no rash. [] Back: No midline tenderness, no CVA tenderness. [] Extremities: No tenderness, no cyanosis, R BKA, L AKA Neurologic: Alert, no focal deficits noted. [] Psychologic: Calm mood, no agitation EKG: EKG: Sinus rhythm 93 bpm, extreme right axis deviation, QRS 152, QTC 500, right bundle branch block w/TWI V1-3 (could represent strain), Q wave III, cannot appreciate any ST elevations or ST depressions, PVC present, questionable aVR elevation although there is no reciprocal ST segment depressions, patient denies any active chest pressure heaviness or tightness on ED arrival, compaired to prior EKG 03/28/21, TWI V2 is new Radiology/Procedures: Radiology/Procedures: IMAGING REPORT Signed PATIENT: SEBASTIAN ANGULO ACCOUNT: [id number] : 1960 LOCATION: ER AGE: 61 SEX: M EXAM STATUS: REG ER ORD. PHYSICIAN: KIERAN ELAINE DO REASON: petechia left cheek, fall? PROCEDURE: CT HEAD AND CERVICAL SPINE WO CT MAXILLOFACIAL WITHOUT CONTRAST, CT HEAD AND C-SPINE WO History: Petechial on the left cheek. Possible fall trauma. Comparison: 05/29/2021 Technique: Noncontrast CT of the head, cervical spine and maxillofacial bones. Findings: CT HEAD: There is no evidence for intracranial mass or hemorrhage. There is no hydrocephalus or midline shift. No abnormal extra-axial fluid collections are present. Periventricular hypodensity consistent with chronic microvascular ischemic change. Mild diffuse volume loss. Beatty/white matter differentiation is preserved. The skull and scalp are within normal limits. CT CERVICAL SPINE: There is no evidence for fracture in the cervical spine. Alignment is normal. Degenerative disc disease greatest at C6-C7 with circumferential osteophyte. Mild narrowing of the spinal canal at this level to 7 ACDF and 8 mm AP No destructive osseous lesions are seen. Right subclavian vein stent. Bilateral carotid artery calcifications. CT MAXILLOFACIAL: No acute facial fracture identified. The bilateral orbits are symmetric. Postsurgical changes of the lenses.. Periorbital soft tissues are normal. Mild right maxillary sinus mucoperiosteal thickening and obstruction of the right maxillary infundibulum. Impression: 1. No acute intracranial findings. Volume loss and chronic microvascular ischemic changes. 2. No acute findings in the cervical spine. Degenerative disc disease at C6-C7 mildly narrows the spinal canal. 3. No acute facial fracture. Right maxillary sinus mucoperiosteal thickening. Correlate for sinusitis. ------- Exposure: One or more of the following individualized dose reduction techniques were utilized for this examination: 1. Automated exposure control 2. Adjustment of the mA and/or kV according to patient size 3. Use of iterative reconstruction technique. Electronically signed by: Maximiliano Pack MD (11/13/2021 11:24 PM) [facility] DICTATED and SIGNED BY: MAXIMILIANO PACK MD DATE: 11/13/21 [id number] 0 IMAGING REPORT Signed PATIENT: SEBASTIAN ANGULO ACCOUNT: [id number] : 1960 LOCATION: ER AGE: 61 SEX: M EXAM STATUS: REG ER ORD. PHYSICIAN: KIERAN ELAINE DO REASON: soa, hypoxia, r/o pe (esrd pt), OMNI 350 90 ML IV PROCEDURE: CT ANGIOGRAPHY CHEST CTA CHEST INDICATION: soa, hypoxia, r/o pe (esrd pt) Comparison: 06/24/2022. TECHNIQUE: Following the uneventful administration of intravenous contrast, 90 cc Omnipaque 350, axial CT sections were obtained through the lungs and upper abdomen. Multiplanar reconstructions and MIP images were obtained. PQRS compliance statement: One or more of the following individualized dose reduction techniques were utilized for this examination: 1. Automated exposure control 2. Adjustment of the mA and/or kV according to patient size 3. Use of iterative reconstruction technique FINDINGS: Pulmonary arteries: Lungs and Airways: Diffuse bladder groundglass opacities with right greater than left lower lobe confluence. Bibasilar endobronchial debris. Pleura: The pleural spaces are normal. Heart and Mediastinum: The visualized thyroid is normal in size and attenuation. No axillary or supraclavicular lymphadenopathy. No mediastinal, hilar or retrocrural lymphadenopathy. Calcified mediastinal lymph nodes consistent with remote granulomatous disease. Cardio mental. No pericardial effusion. Coronary artery atherosclerotic disease. Atherosclerosis of the thoracic aorta. Abdomen: Limited images through the upper abdomen show no abnormality of the visualized organs. Bones and Soft Tissues: Degenerative changes of the spine. IMPRESSION: 1. No evidence of pulmonary thromboembolic disease. 2. Diffuse bilateral groundglass opacities with right greater than left lower l obe confluence, likely infection, edema, or an/aspiration. Electronically signed by: Joshua Peralta MD (11/14/2021 12:40 AM) [facility] DICTATED and SIGNED BY: JOSHUA PERALTA MD DATE: 11/14/21 [id number] 0 Course & Med Decision Making: Course & Med Decision Making Pertinent Labs and Imaging studies reviewed. (See chart for details) COVID-19 CRITERIA: The patient was evaluated during the global COVID-19 pandemic, and that diagnosis was suspected/considered upon their initial presentation. Their evaluation, treatment and testing was consistent with current guidelines for patients who present with complaints or symptoms that may be related to COVID-19. Concern for acute hypoxic respiratory failure requiring increased supplemental oxygen. Was treated with duo nebs prior to ED arrival-no wheezing on exam. Tachypnea resolved with supplemental oxygen in the emergency department. Imaging concerning for pulmonary edema versus aspiration pneumonia versus atypical pneumonia-azithromycin given. CTA with no pulmonary embolus. Influenza negative. Covid positive. Will admit for further medical management with cardiology and nephrology consulted. The patient has been stabilized within the capability of the emergency department. The patient will be transported for further care and management or will be moved to an observation or inpatient service. I have communicated with the staff or medical practitioner taking over this patient's care. Shelia Disclaimer: Shelia Disclaimer: This electronic medical record was generated, in whole or in part, using a voice recognition dictation system. Departure Departure Impression: Primary Impression: Acute respiratory failure with hypoxia Additional Impressions: NSTEMI (non-ST elevated myocardial infarction) COVID-19 Disposition: 09 ADMITTED INPATIENT Admitting Physician: AYDEN (Dr. Betancourt) Condition: GUARDED Referrals: SOLO NUNO MD (PCP) KIERAN ELAINE DO Nov 13, 2021 22:01
[2021-11-13 22:37] LABS: BASO % 1 % (0-3); EOS % 0 % (0-3); HEMATOCRIT 38.1 % (39.0-53.0); HEMOGLOBIN 12.1 g/dL (13.0-17.5); LYMPH # 0.6 x10^3/uL (1.0-4.8); LYMPH % 9 % (24-48); MEAN CORPUSCULAR HEMOGLOBIN 29 pg (25-35); MEAN CORPUSCULAR HGB CONC 32 g/dL (31-37); MEAN CORPUSCULAR VOLUME 92 fL (79-100); MONO # 0.4 x10^3/uL (0.0-1.1); MONO % 6 % (0-9); NEUT # 5.9 x10^3/uL (1.8-7.7); NEUT % 85 % (31-73); PLATELET COUNT 63 x10^3/uL (140-400); RED BLOOD COUNT 4.13 x10^6/uL (4.30-5.70); RED CELL DISTRIBUTION WIDTH 17.9 % (11.5-14.5)
[2021-11-13 22:49] LABS: BASE EXCESS ABG 0 mmol/L (-3-3); HCO3 ABG 26 mmol/L (21-28); PCO2 ABG 45 mmHg (35-46); PO2 ABG 56 mmHg (65-108); SAT O2 ABG 89 % (92-99)
[2021-11-13 22:49] LABS: CALCIUM 8.3 mg/dL (8.5-10.1); CREATININE 5.9 mg/dL (0.7-1.3); GFR 9.9; POTASSIUM 3.5 mmol/L (3.5-5.1)
[2021-11-13 22:50] LABS: FIO2 ABG 52
[2021-11-13 22:51] LABS: PROTHROMBIN TIME PATIENT 13.4 SEC (11.7-14.0)
[2021-11-13 22:56] LABS: ALBUMIN 2.5 g/dL (3.4-5.0); ALBUMIN/GLOBULIN RATIO 0.6 (1.0-1.7); MAGNESIUM 2.1 mg/dL (1.8-2.4); TOTAL BILIRUBIN 0.8 mg/dL (0.2-1.0); TOTAL PROTEIN 6.7 g/dL (6.4-8.2)
[2021-11-13 23:00] LABS: INFLUENZA A PATIENT NEGATIVE (NEGATIVE); INFLUENZA B PATIENT NEGATIVE (NEGATIVE)
[2021-11-13 23:23] LABS: % BANDS 7 % (0-9); % LYMPHS 9 % (24-48); % MONOS 2 % (0-10); % SEGS 82 % (35-66); PLT ESTIMATE DECREASED (ADEQUATE)
[2021-11-13 23:24] LABS: ANISOCYTOSIS SLIGHT; TOXIC GRANULATION SLIGHT
--- NOTE | 2021-11-13 23:26 | RAD ---
CT MAXILLOFACIAL WITHOUT CONTRAST, CT HEAD AND C-SPINE WO History: Petechial on the left cheek. Possible fall trauma. Comparison: 05/29/2021 Technique: Noncontrast CT of the head, cervical spine and maxillofacial bones. Findings: CT HEAD: There is no evidence for intracranial mass or hemorrhage. There is no hydrocephalus or midline shift. No abnormal extra-axial fluid collections are present. Periventricular hypodensity consistent with chronic microvascular ischemic change. Mild diffuse volum e loss. Beatty/white matter differentiation is preserved. The skull and scalp are within normal limits. CT CERVICAL SPINE: There is no evidence for fracture in the cervical spine. Alignment is normal. Degenerative disc disease greatest at C6-C7 with circumferential osteophyte. Mild narrowing of the sp inal canal at this level to 7 ACDF and 8 mm AP No destructive osseous lesions are seen. Right subclavian vein stent. Bilateral carotid artery calcifications. CT MAXILLOFACIAL: No acute facial fracture identified. The bilateral orbits are symmetric. Postsurgical changes of the lenses.. Periorbital soft tissues are normal. Mild right maxillary sinus mucoperiosteal thickening and obstruction of the right maxillary infundibu lum. Impression: 1. No acute intracranial findings. Volume loss and chronic microvascular ischemic changes. 2. No acute findings in the cervical spine. Degenerative disc disease at C6-C7 mildly narrows the sp inal canal. 3. No acute facial fracture. Right maxillary sinus mucoperiosteal thickening. Correlate for sinusiti s. ------- Exposure: One or more of the following individualized dose reduction techniques were utilized for thi s examination: 1. Automated exposure control 2. Adjustment of the mA and/or kV according to patient size 3. Use of iterative reconstruction technique. Electronically signed by: Maximiliano Macdonald MD (11/13/2021 11:24 PM) [facility] [place]
[2021-11-13] MEDS ORDERED: CONTRAST GIVEN. MC PRN (23:45)
[2021-11-14] MEDS ORDERED: IOHEXOL 350 MG/ML 100 ML VIAL. IV ONE
--- NOTE | 2021-11-14 00:15 | RAD ---
EXAM: XR CHEST 1V 11/13/2021 10:10 PM CLINICAL INDICATION: Shortness of air COMPARISON: Chest radiograph 07/29/2021 TECHNIQUE: AP upright view of the chest FINDINGS: Cardiomegaly is unchanged. The lungs are hyperexpanded. Stable mild diffuse interstitial p rominence. Streaky subpleural and basilar opacities in the left lung are unchanged from multiple prio r exams. Decreased, now mild opacities at the medial right lung base. There is no pleural effusion or pneumothorax. Vascular stents in the right brachiocephalic and subclavian vessels are noted. IMPRESSION: 1. Decreased but persistent right basilar opacities. 2. Unchanged chronic opacities in the left lung. Electronically signed by: Jia Alfaro MD (11/14/2021 12:12 AM) [id number]
--- NOTE | 2021-11-14 00:42 | RAD ---
CTA CHEST INDICATION: soa, hypoxia, r/o pe (esrd pt) Comparison: 06/24/2022. TECHNIQUE: Following the uneventful administration of intravenous contrast, 90 cc Omnipaque 350, axia l CT sections were obtained through the lungs and upper abdomen. Multiplanar reconstructions and MIP images were obtained. RS compliance statement: One or more of the following individualized dose reduction techniques were utilized for this examinat ion: 1. Automated exposure control 2. Adjustment of the mA and/or kV according to patient size 3. Use of iterative reconstruction technique FINDINGS: Pulmonary arteries: Lungs and Airways: Diffuse bladder groundglass opacities with right greater than left lower lobe conf luence. Bibasilar endobronchial debris. Pleura: The pleural spaces are normal. Heart and Mediastinum: The visualized thyroid is normal in size and attenuation. No axillary or supra clavicular lymphadenopathy. No mediastinal, hilar or retrocrural lymphadenopathy. Calcified mediastin al lymph nodes consistent with remote granulomatous disease. Cardio mental. No pericardial effusion. Coronary artery atherosclerotic disease. Atherosclerosis of the thoracic aorta. Abdomen: Limited images through the upper abdomen show no abnormality of the visualized organs. Bones and Soft Tissues: Degenerative changes of the spine. IMPRESSION: 1. No evidence of pulmonary thromboembolic disease. 2. Diffuse bilateral groundglass opacities with right greater than left lower lobe confluence, likely infection, edema, or an/aspiration. Electronically signed by: Taye Peralta MD (11/14/2021 12:40 AM) [facility]
[2021-11-14] MEDS ORDERED: AZITHROMYCIN 250 MG TABLET. PO ONE (01:00)
[2021-11-14 03:01] VITALS: BP 102/57
[2021-11-14] MEDS ORDERED: AMLO-187 PO (03:09)
--- NOTE | 2021-11-14 03:48 | EKG ---
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
[2021-11-14 07:00] VITALS: BP 141/66
[2021-11-14] MEDS ORDERED: diphenhydrAMINE 50 MG/ML VIAL IVP PRN (09:30)
[2021-11-14] MEDS ORDERED: PROCHLORPERAZINE 10 MG/2 ML VIAL. IV PRN (09:30)
[2021-11-14] MEDS ORDERED: ZOLPIDEM 5 MG TABLET. PO PRN (09:30)
[2021-11-14] MEDS ORDERED: ONDANSETRON PF 4 MG/2 ML VIAL. IVP PRN (09:30)
[2021-11-14] MEDS ORDERED: SENNOSIDES 8.6 MG TABLET PO PRN (09:30)
[2021-11-14] MEDS ORDERED: diphenhydrAMINE HCL 25 MG CAPSULE PO PRN ×2 (09:30)
[2021-11-14] MEDS ORDERED: LORazepam 0.5 MG TABLET PO PRN (09:30)
[2021-11-14] MEDS ORDERED: DOCUSATE SODIUM 100 MG CAPSULE. PO PRN (09:30)
[2021-11-14] MEDS ORDERED: DEXTROSE 50% 25 GM / 50ML DISP.SYRIN. IV PRN (09:30)
[2021-11-14] MEDS ORDERED: ACETAMINOPHEN 325 MG TABLET. PO PRN (09:30)
--- NOTE | 2021-11-14 09:32 | PDOC1 ---
History and Physical Date of Service: DOS: DATE: 11/14/21 TIME: 09:21 Chief Complaint: Chief Complain: Shortness of breath History of Present Illness: HPI: History obtained from discussion with the ED physician and chart review 61-year-old male past medical history of hypothyroidism, diabetes, hypertension, hyperlipidemia, hypothyroidism, COPD on 4 L nasal cannula and ESRD (MWF, anuric), presents to the ED brought in by EMS from home with complaints of shortness of breath stating this feels like his typical fluid overload. Patient missed his hemodialysis today due to a follow-up appointment regarding history of right broken shoulder. Reports no medications were changed. Patient arrives 93% on 10 L nonrebreather, s/p 1 duoneb. Takes 4 duo nebs daily and 1 qhs. Has received his Covid vaccine x2 but has not been boostered. Meds reviewed-takes lasix 80mg bid. Has petechia and bruising to right cheek, anterior neck and posterior occiput-when asked if he fell he states "I don't know." Pt is alert and oriented but not fully cooperative which limits history (I suspect due to his work of breathing). Past Medical/Surgical History: PMH/PSH: Past Medical History: COPD, Diabetes-Type II, High Cholesterol, Hypertension, Hypothyroid, Renal Failure, CARDIAC ARREST DURING DIALYSIS 09/12 Past Surgical History: unable to obtain Allergies: Allergies: Coded Allergies: No Known Drug Allergies (Unverified , 08/28/21) Family History: Family History: Reviewed with no relevant findings in the chart Social History: Social History: Smoking Status: Former Smoker Alcohol Use: None Drug Use: None Current Medications: Current Medications Current Medications Iohexol (Omnipaque 350 Mg/ml) 90 ml 1X ONCE IV Last administered on 11/14/21at 00:13; Start 11/14/21 at 00:00; Stop 11/14/21 at 00:01; Status DC Info (CONTRAST GIVEN -- Rx MONITORING) 1 each PRN DAILY PRN MC SEE COMMENTS; Start 11/13/21 at 23:45; Stop 11/15/21 at 23:44 Azithromycin (Zithromax) 500 mg 1X ONCE PO Last administered on 11/14/21at 01:00; Start 11/14/21 at 01:00; Stop 2/19/22 at 01:01; Status DC Active Scripts Active Hydrocodone-Acetamin 7.5-325 (Hydrocodone/Acetaminophen) 1 Each Tablet 1 Each PO Q6H 7 Days Admelog (Insulin Lispro) 100 Unit/1 Ml Vial 0-5 Units SQ QIDACHS 30 Days Vitamin C (Ascorbic Acid) 500 Mg Tablet 500 Mg PO DAILY 30 Days Madai-Sean Tablet (Folic Acid/Vitamin B Comp W-C) 0.8 Mg Tablet 1 Tab PO DAILY 30 Days Budesonide 0.5 Mg/2 Ml Ampul.neb 0.5 Mg NEB RTBID 30 Days Aspirin 81 Mg Tab.chew 81 Mg PO DAILYWBKFT 30 Days Duoneb 0.5-3(2.5) Mg/3 Ml (Albuterol/Ipratropium) 3 Ml Ampul.neb 3 Ml NEB RTQID 30 Days Reported Amlodipine Besylate 10 Mg Tablet 10 Mg PO DAILY Lantus Solostar (Insulin Glargine,Hum.rec.anlog) 100 Unit/1 Ml Insuln.pen 3 Unit SQ QHS Vitamin D3 (Cholecalciferol (Vitamin D3)) 125 Mcg Tablet 125 Mcg PO DAILY Furosemide 80 Mg Tablet 1 Tab PO BID Lisinopril 20 Mg Tablet 1 Tab PO DAILY Levothyroxine Sodium 100 Mcg Tablet 175 Mcg PO DAILYAC Atorvastatin Calcium 10 Mg Tablet 10 Mg PO HS [place] 3 Fish Oil Softgel ([place]-3 Fatty Acids/Fish Oil) 1 Each Capsule.dr 1 Each PO DAILY Calcium Acetate 667 Mg Tablet 667 Mg PO TIDWMEALS Tylenol (Acetaminophen) 325 Mg Tablet 650 Mg PO PRN Q6HRS ROS: Review of Systems Review of System REVIEW OF SYSTEMS: GENERAL: Denies weakness SKIN: No bruising, hair changes or rashes. EYES: No blurred, double or loss of vision. NOSE AND THROAT: No history of nosebleeds, hoarseness or sore throat. HEART: No history of palpitations, chest pain or shortness of breath on exertion. LUNGS: Positive for shortness of breath GASTROINTESTINAL: Denies changes in appetite, nausea, vomiting, diarrhea or constipation. GENITOURINARY: No history of frequency, urgency, hesitancy or nocturia. NEUROLOGIC: Denies history of numbness, tingling, or tremor. PSYCHIATRIC: No history of panic, anxiety or depression. ENDOCRINE: No history of heat or cold intolerance, polyuria or polydipsia. EXTREMITIES: Denies joint pain, pain on walking or stiffness. Physical Exam: Vital Signs: Vital Signs Date Time Temp Pulse Resp B/P (MAP) Pulse Ox O2 Delivery O2 Flow Rate FiO2 11/14/21 08:00 Nasal Cannula 9.0 11/14/21 07:00 97.6 66 16 141/66 (91) 95 97.6 Physcial Exam: General: Well developed, well nourished, no acute distress, well appearing HEENT: Pupils equally round and reactive to light, EOMI, no discharge, normal conjunctiva Neck: Supple, no nuchal rigidity, no JVD, trachea midline, no tenderness Cardiac: RRR, no murmurs, no gallops, no rubs Chest/Lungs: CTAB, no wheeze, no rhonchi, no crackles Abdomen: soft, non-distended, no guarding, no peritoneal signs, non-tender Back: No tenderness Extremities: no edema, pulses intact, non-tender,capillary refill <3 sec bilateral upper and lower extremities, Neuro: Alert and oriented x 4, no focal deficits, normal speech Skin: There is visible bruising in the right cheek and anterior neck. Labs: Labs: Laboratory Tests Test 11/13/21 22:22 11/13/21 22:24 11/13/21 22:25 11/14/21 02:04 Influenza Type A Antigen Negative (NEGATIVE) Influenza Type B Antigen Negative (NEGATIVE) O2 Saturation 89 % (92-99) Arterial Blood pH 7.37 (7.35-7.45) Arterial Blood pCO2 at Patient Temp 45 mmHg (35-46) Arterial Blood pO2 at Patient Temp 56 mmHg (65-108) Arterial Blood HCO3 26 mmol/L (21-28) Arterial Blood Base Excess 0 mmol/L (-3-3) FiO2 52 White Blood Count 7.0 x10^3/uL (4.0-11.0) Red Blood Count 4.13 x10^6/uL (4.30-5.70) Hemoglobin 12.1 g/dL (13.0-17.5) Hematocrit 38.1 % (39.0-53.0) Mean Corpuscular Volume 92 fL (79-100) Mean Corpuscular Hemoglobin 29 pg (25-35) Mean Corpuscular Hemoglobin Concent 32 g/dL (31-37) Red Cell Distribution Width 17.9 % (11.5-14.5) Platelet Count 63 x10^3/uL (140-400) Neutrophils (%) (Auto) 85 % (31-73) Lymphocytes (%) (Auto) 9 % (24-48) Monocytes (%) (Auto) 6 % (0-9) Eosinophils (%) (Auto) 0 % (0-3) Basophils (%) (Auto) 1 % (0-3) Neutrophils # (Auto) 5.9 x10^3/uL (1.8-7.7) Lymphocytes # (Auto) 0.6 x10^3/uL (1.0-4.8) Monocytes # (Auto) 0.4 x10^3/uL (0.0-1.1) Eosinophils # (Auto) 0.0 x10^3/uL (0.0-0.7) Basophils # (Auto) 0.0 x10^3/uL (0.0-0.2) Segmented Neutrophils % 82 % (35-66) Band Neutrophils % 7 % (0-9) Lymphocytes % 9 % (24-48) Monocytes % 2 % (0-10) Toxic Granulation Slight Platelet Estimate Decreased (ADEQUATE) Anisocytosis Slight Prothrombin Time 13.4 SEC (11.7-14.0) Prothromb Time International Ratio 1.0 (0.8-1.1) Activated Partial Thromboplast Time 44 SEC (24-38) Sodium Level 144 mmol/L (136-145) Potassium Level 3.5 mmol/L (3.5-5.1) Chloride Level 100 mmol/L (98-107) Carbon Dioxide Level 26 mmol/L (21-32) Anion Gap 18 (6-14) Blood Urea Nitrogen 40 mg/dL (8-26) Creatinine 5.9 mg/dL (0.7-1.3) Estimated GFR (Cockcroft-Gault) 9.9 BUN/Creatinine Ratio 7 (6-20) Glucose Level 220 mg/dL (70-99) Lactic Acid Level 1.6 mmol/L (0.4-2.0) Calcium Level 8.3 mg/dL (8.5-10.1) Magnesium Level 2.1 mg/dL (1.8-2.4) Total Bilirubin 0.8 mg/dL (0.2-1.0) Aspartate Amino Transf (AST/SGOT) 18 U/L (15-37) Alanine Aminotransferase (ALT/SGPT) 10 U/L (16-63) Alkaline Phosphatase 154 U/L (46-116) Creatine Kinase 50 U/L (39-308) Troponin I High Sensitivity 160 ng/L (4-75) AY-Pph-C-Type Natriuretic Peptide > 71560 pg/mL (0-124) Total Protein 6.7 g/dL (6.4-8.2) Albumin 2.5 g/dL (3.4-5.0) Albumin/Globulin Ratio 0.6 (1.0-1.7) SARS-CoV-2 Antigen (Rapid) Positive (NEGATIVE) Test 11/14/21 07:50 Glucose (Fingerstick) 254 mg/dL (70-99) Laboratory Tests Test 11/13/21 22:22 11/13/21 22:24 11/13/21 22:25 11/14/21 02:04 Influenza Type A Antigen Negative (NEGATIVE) Influenza Type B Antigen Negative (NEGATIVE) O2 Saturation 89 % (92-99) Arterial Blood pH 7.37 (7.35-7.45) Arterial Blood pCO2 at Patient Temp 45 mmHg (35-46) Arterial Blood pO2 at Patient Temp 56 mmHg (65-108) Arterial Blood HCO3 26 mmol/L (21-28) Arterial Blood Base Excess 0 mmol/L (-3-3) FiO2 52 White Blood Count 7.0 x10^3/uL (4.0-11.0) Red Blood Count 4.13 x10^6/uL (4.30-5.70) Hemoglobin 12.1 g/dL (13.0-17.5) Hematocrit 38.1 % (39.0-53.0) Mean Corpuscular Volume 92 fL (79-100) Mean Corpuscular Hemoglobin 29 pg (25-35) Mean Corpuscular Hemoglobin Concent 32 g/dL (31-37) Red Cell Distribution Width 17.9 % (11.5-14.5) Platelet Count 63 x10^3/uL (140-400) Neutrophils (%) (Auto) 85 % (31-73) Lymphocytes (%) (Auto) 9 % (24-48) Monocytes (%) (Auto) 6 % (0-9) Eosinophils (%) (Auto) 0 % (0-3) Basophils (%) (Auto) 1 % (0-3) Neutrophils # (Auto) 5.9 x10^3/uL (1.8-7.7) Lymphocytes # (Auto) 0.6 x10^3/uL (1.0-4.8) Monocytes # (Auto) 0.4 x10^3/uL (0.0-1.1) Eosinophils # (Auto) 0.0 x10^3/uL (0.0-0.7) Basophils # (Auto) 0.0 x10^3/uL (0.0-0.2) Segmented Neutrophils % 82 % (35-66) Band Neutrophils % 7 % (0-9) Lymphocytes % 9 % (24-48) Monocytes % 2 % (0-10) Toxic Granulation Slight Platelet Estimate Decreased (ADEQUATE) Anisocytosis Slight Prothrombin Time 13.4 SEC (11.7-14.0) Prothromb Time International Ratio 1.0 (0.8-1.1) Activated Partial Thromboplast Time 44 SEC (24-38) Sodium Level 144 mmol/L (136-145) Potassium Level 3.5 mmol/L (3.5-5.1) Chloride Level 100 mmol/L (98-107) Carbon Dioxide Level 26 mmol/L (21-32) Anion Gap 18 (6-14) Blood Urea Nitrogen 40 mg/dL (8-26) Creatinine 5.9 mg/dL (0.7-1.3) Estimated GFR (Cockcroft-Gault) 9.9 BUN/Creatinine Ratio 7 (6-20) Glucose Level 220 mg/dL (70-99) Lactic Acid Level 1.6 mmol/L (0.4-2.0) Calcium Level 8.3 mg/dL (8.5-10.1) Magnesium Level 2.1 mg/dL (1.8-2.4) Total Bilirubin 0.8 mg/dL (0.2-1.0) Aspartate Amino Transf (AST/SGOT) 18 U/L (15-37) Alanine Aminotransferase (ALT/SGPT) 10 U/L (16-63) Alkaline Phosphatase 154 U/L (46-116) Creatine Kinase 50 U/L (39-308) Troponin I High Sensitivity 160 ng/L (4-75) FT-Ppn-D-Type Natriuretic Peptide > 66560 pg/mL (0-124) Total Protein 6.7 g/dL (6.4-8.2) Albumin 2.5 g/dL (3.4-5.0) Albumin/Globulin Ratio 0.6 (1.0-1.7) SARS-CoV-2 Antigen (Rapid) Positive (NEGATIVE) Test 11/14/21 07:50 Glucose (Fingerstick) 254 mg/dL (70-99) Images: Images PROCEDURE: PORTABLE CHEST 1V EXAM: XR CHEST 1V 11/13/2021 10:10 PM CLINICAL INDICATION: Shortness of air COMPARISON: Chest radiograph 07/29/2021 TECHNIQUE: AP upright view of the chest FINDINGS: Cardiomegaly is unchanged. The lungs are hyperexpanded. Stable mild diffuse interstitial prominence. Streaky subpleural and basilar opacities in the left lung are unchanged from multiple prior exams. Decreased, now mild opacities at the medial right lung base. There is no pleural effusion or pneumothorax. Vascular stents in the right brachiocephalic and subclavian vessels are noted. IMPRESSION: 1. Decreased but persistent right basilar opacities. 2. Unchanged chronic opacities in the left lung. Findings: CT HEAD: There is no evidence for intracranial mass or hemorrhage. There is no hydrocephalus or midline shift. No abnormal extra-axial fluid collections are present. Periventricular hypodensity consistent with chronic microvascular ischemic change. Mild diffuse volume loss. Beatty/white matter differentiation is preserved. The skull and scalp are within normal limits. CT CERVICAL SPINE: There is no evidence for fracture in the cervical spine. Alignment is normal. Degenerative disc disease greatest at C6-C7 with circumferential osteophyte. Mild narrowing of the spinal canal at this level to 7 ACDF and 8 mm AP No destructive osseous lesions are seen. Right subclavian vein stent. Bilateral carotid artery calcifications. CT MAXILLOFACIAL: No acute facial fracture identified. The bilateral orbits are symmetric. Postsurgical changes of the lenses.. Periorbital soft tissues are normal. Mild right maxillary sinus mucoperiosteal thickening and obstruction of the right maxillary infundibulum. Impression: 1. No acute intracranial findings. Volume loss and chronic microvascular ischemic changes. 2. No acute findings in the cervical spine. Degenerative disc disease at C6-C7 mildly narrows the spinal canal. 3. No acute facial fracture. Right maxillary sinus mucoperiosteal thickening. Correlate for sinusitis. PROCEDURE: CT ANGIOGRAPHY CHEST CTA CHEST INDICATION: soa, hypoxia, r/o pe (esrd pt) Comparison: 06/24/2022. TECHNIQUE: Following the uneventful administration of intravenous contrast, 90 cc Omnipaque 350, axial CT sections were obtained through the lungs and upper abdomen. Multiplanar reconstructions and MIP images were obtained. PQRS compliance statement: One or more of the following individualized dose reduction techniques were utilized for this examination: 1. Automated exposure control 2. Adjustment of the mA and/or kV according to patient size 3. Use of iterative reconstruction technique FINDINGS: Pulmonary arteries: Lungs and Airways: Diffuse bladder groundglass opacities with right greater than left lower lobe confluence. Bibasilar endobronchial debris. Pleura: The pleural spaces are normal. Heart and Mediastinum: The visualized thyroid is normal in size and attenuation. No axillary or supraclavicular lymphadenopathy. No mediastinal, hilar or retrocrural lymphadenopathy. Calcified mediastinal lymph nodes consistent with remote granulomatous disease. Cardio mental. No pericardial effusion. Coronary artery atherosclerotic disease. Atherosclerosis of the thoracic aorta. Abdomen: Limited images through the upper abdomen show no abnormality of the visualized organs. Bones and Soft Tissues: Degenerative changes of the spine. IMPRESSION: 1. No evidence of pulmonary thromboembolic disease. 2. Diffuse bilateral groundglass opacities with right greater than left lower lobe confluence, likely infection, edema, or an/aspiration. Assessment/Plan Assessment/Plan Acute hypoxic respiratory failure secondary to Covid pneumonia COVID-19 infection Acute electrolyte derangement consistent with ESRD Anemia of ESRD left [id number] amputation for Diabetic foot ulcer on left leg with dry gangrene end-stage renal disease on HD via RUE access Severe peripheral vascular disease, prior right BKA, , diabetes, hypertension, hyperlipidemia, depression, anxiety. weight loss, Chronic pain, Osteoarthritis, LE edema, hypothyroidism. hx of falls, left hip fracture --> left total hip arthroplasty. meet-umbilical subcutaneous bruising - CT abdomen/pelvis to r/o intraabdominal hemorrhage/pancreatitis 09/01/21 anemia on ESRD previous smoker hx of poor compliance noted Admit to medicine for further management Pulmonology consult Continue IV thiamine and vitamin C IV Solu-Medrol every 8 hours IV Remdesivir if patient requires O2 supplementation beyond there baseline Pending ferritin, LDH, CRP, D-dimer labs Titrate O2 supplementation to maintain O2 saturation greater than 92% Empiric IV antibiotics if patient has clinical presentation for bacterial pneumonia Heparin for DVT prophylaxis Protonix while on steroids GI prophylaxis ADA diet Full code Discussed with RN and SW Disposition inpatient management as above Surrogate decision maker is the Justifications for Admission Other Justification ESRD, fluid overload PAWEL GARCÍA MD Nov 14, 2021 09:32
[2021-11-14 11:00] VITALS: BP 133/55
[2021-11-14] MEDS ORDERED: DIALYSIS PATIENT. MC PRN ×2 (11:15)
[2021-11-14] MEDS ORDERED: ALBUMIN HUMAN 25% 200 ML IV PRN (11:15)
[2021-11-14] MEDS ORDERED: IV NORMAL SALINE 1000ML BAG 1,000 ML IV PRN (11:15)
[2021-11-14] MEDS ORDERED: LIDOCAINE 1% PF 2 ML VIAL. INJ PRN (11:15)
[2021-11-14] MEDS: INSULIN LISPRO 300 UNITS/3 ML VIAL. SQ SCH ×2 (12:00→17:00)
[2021-11-14] MEDS: ASCORBIC ACID 1,000 MG TABLET PO SCH ×2 (14:00→21:52)
--- NOTE | 2021-11-14 14:08 | NUR ---
Patient in dialysis. Scheduled medications will be administered when patient returns to unit
--- NOTE | 2021-11-14 14:28 | PDOC2 ---
CONSULT Date of Consult Date of Consult DATE: 11/14/21 TIME: 14:28 Reason for Consult Reason for Consult: Congestive heart failure Referring Physician Referring Physician: Dr. Betancourt Identification/Chief Complaint Chief Complaint Shortness of breath Source Source: Chart review, Patient History of Present Illness Reason for Visit: 61-year-old male with history of coronary artery disease and end-stage renal disease on hemodialysis presented with shortness of breath. He apparently missed his hemodialysis due to doctor's appointment for shoulder pain. He denied any chest pain, palpitations or syncope. He had to COVID vaccine doses but has not received booster yet. He has bruising to right cheek, anterior neck and posterior occiput did not remember if he fell. Past Medical History Cardiovascular: CAD, HTN, Hyperlipidemia Pulmonary: Other GI: GERD Heme/Onc: Anemia NOS Psych: Depression Renal/: Chronic renal failure Endocrine: Diabetes, Hypothyroidism, Hyperparathyroidism Past Surgical History Past Surgical History: Other (Right BKA and left AKA) Family History Family History: Diabetes, Hypertension Social History ALCOHOL: none Drugs: None Lives: with Family Current Problem List Problem List Problems Medical Problems: (1) Acute respiratory failure with hypoxia Status: Acute (2) COVID-19 Status: Acute (3) NSTEMI (non-ST elevated myocardial infarction) Status: Acute Current Medications Current Medications Current Medications Iohexol (Omnipaque 350 Mg/ml) 90 ml 1X ONCE IV Last administered on 11/14/21at 00:13; Start 11/14/21 at 00:00; Stop 11/14/21 at 00:01; Status DC Info (CONTRAST GIVEN -- Rx MONITORING) 1 each PRN DAILY PRN MC SEE COMMENTS; Start 11/13/21 at 23:45; Stop 11/15/21 at 23:44 Azithromycin (Zithromax) 500 mg 1X ONCE PO Last administered on 11/14/21at 01:00; Start 11/14/21 at 01:00; Stop 11/14/21 at 01:01; Status DC Sennosides (Senna) 17.2 mg PRN BID PRN PO CONSTIPATION; Start 11/14/21 at 09:30 Docusate Sodium (Colace) 100 mg PRN DAILY PRN PO HARD STOOLS; Start 11/14/21 at 09:30 Ondansetron HCl (Zofran) 4 mg PRN Q6HRS PRN IVP NAUSEA/VOMITING, 1st CHOICE; Start 11/14/21 at 09:30 Insulin Human Lispro (HumaLOG) 0-5 UNITS TIDWMEALS SQ ; Start 11/14/21 at 12:00 Dextrose (Dextrose 50%-Water Syringe) 12.5 gm PRN Q15MIN PRN IV SEE COMMENTS; Start 11/14/21 at 09:30 Acetaminophen (Tylenol) 650 mg PRN Q4HRS PRN PO TEMP OVER 100.4F OR MILD PAIN; Start 11/14/21 at 09:30 Lorazepam (Ativan) 0.5 mg PRN Q6HRS PRN PO ANXIETY / AGITATION; Start 11/14/21 at 09:30 Lorazepam (Ativan Inj) 0.25 mg PRN Q4HRS PRN IV ANXIETY / AGITATION; Start 11/14/21 at 09:30 Heparin Sodium (Porcine) (Heparin Sodium) 5,000 unit Q12HR SQ ; Start 11/14/21 at 21:00 Azithromycin 500 mg/Sodium Chloride 250 ml @ 250 mls/hr Q24H IV ; Start 11/14/21 at 21:00; Stop 11/17/21 at 21:59 Ceftriaxone Sodium (Rocephin) 1 gm DAILY IVP ; Start 11/14/21 at 09:30; Stop 11/20/21 at 09:01 Prochlorperazine Edisylate (Compazine) 10 mg PRN Q6HRS PRN IV NAUSEA/VOMITING, 2nd CHOICE; Start 11/14/21 at 09:30 Diphenhydramine HCl (Benadryl) 25 mg PRN Q6HRS PRN IVP ITCHING; Start 11/14/21 at 09:30 Diphenhydramine HCl (Benadryl) 25 mg PRN Q6HRS PRN PO ITCHING; Start 11/14/21 at 09:30 Diphenhydramine HCl (Benadryl) 25 mg PRN QHS PRN PO INSOMNIA, 1st CHOICE; Start 11/14/21 at 09:30 Zolpidem Tartrate (Ambien) 2.5 mg PRN QHS PRN PO INSOMNIA, 2nd CHOICE; Start 11/14/21 at 09:30 Ascorbic Acid (Vitamin C) 3,000 mg TID PO ; Start 11/14/21 at 14:00 Methylprednisolone Sodium Succinate (SOLU-Medrol 40MG VIAL) 40 mg Q8HRS IV ; Start 11/14/21 at 14:00 Thiamine Mononitrate (Vitamin B-1) 300 mg DAILY PO ; Start 11/15/21 at 09:00 Zinc Sulfate (Orazinc) 220 mg DAILY PO ; Start 11/15/21 at 09:00 Sodium Chloride 1,000 ml @ 1,000 mls/hr Q1H PRN IV hypotension; Start 11/14/21 at 11:15; Stop 11/14/21 at 17:14 Albumin Human 200 ml @ 200 mls/hr 1X PRN PRN IV Hypotension; Start 11/14/21 at 11:15; Stop 11/14/21 at 17:14 Lidocaine HCl (Xylocaine-Mpf 1% 2ml Vial) 2 ml 1X PRN PRN INJ FOR DIALYSIS; Start 11/14/21 at 11:15; Stop 11/14/21 at 19:00 Info (PHARMACY MONITORING -- do not chart) 1 each PRN DAILY PRN MC SEE COMMENTS; Start 11/14/21 at 11:15; Status UNV Info (PHARMACY MONITORING -- do not chart) 1 each PRN DAILY PRN MC SEE COMMENTS; Start 11/14/21 at 11:15 Active Scripts Active Hydrocodone-Acetamin 7.5-325 (Hydrocodone/Acetaminophen) 1 Each Tablet 1 Each PO Q6H 7 Days Admelog (Insulin Lispro) 100 Unit/1 Ml Vial 0-5 Units SQ QIDACHS 30 Days Vitamin C (Ascorbic Acid) 500 Mg Tablet 500 Mg PO DAILY 30 Days Madai-Sean Tablet (Folic Acid/Vitamin B Comp W-C) 0.8 Mg Tablet 1 Tab PO DAILY 30 Days Budesonide 0.5 Mg/2 Ml Ampul.neb 0.5 Mg NEB RTBID 30 Days Aspirin 81 Mg Tab.chew 81 Mg PO DAILYWBKFT 30 Days Duoneb 0.5-3(2.5) Mg/3 Ml (Albuterol/Ipratropium) 3 Ml Ampul.neb 3 Ml NEB RTQID 30 Days Reported Amlodipine Besylate 10 Mg Tablet 10 Mg PO DAILY Lantus Solostar (Insulin Glargine,Hum.rec.anlog) 100 Unit/1 Ml Insuln.pen 3 Unit SQ QHS Vitamin D3 (Cholecalciferol (Vitamin D3)) 125 Mcg Tablet 125 Mcg PO DAILY Furosemide 80 Mg Tablet 1 Tab PO BID Lisinopril 20 Mg Tablet 1 Tab PO DAILY Levothyroxine Sodium 100 Mcg Tablet 175 Mcg PO DAILYAC Atorvastatin Calcium 10 Mg Tablet 10 Mg PO HS Josephine 3 Fish Oil Softgel (Josephine-3 Fatty Acids/Fish Oil) 1 Each Capsule.dr 1 Each PO DAILY Calcium Acetate 667 Mg Tablet 667 Mg PO TIDWMEALS Tylenol (Acetaminophen) 325 Mg Tablet 650 Mg PO PRN Q6HRS Allergies Allergies: Coded Allergies: No Known Drug Allergies (Unverified , 08/28/21) ROS PSYCHOLOGICAL ROS: No: Hallucinations Eyes: No Loss of vision HEENT: No: Epistaxis Respiratory: YES: Shortness of breath; No: Hemoptysis Cardiovascular: No Chest Pain Gastrointestinal: No Vomiting Genitourinary: No Hematuria Neurological: No Seizures Skin: No Rash Physical Exam General: Alert, No acute distress HEENT: PERRLA Lungs: Clear to auscultation Heart: Regular rate Abdomen: Soft Extremities: Other (Right BKA and left AKA) Neuro: Normal speech Psych/Mental Status: Mood NL Vitals VITALS Vital Signs Date Time Temp Pulse Resp B/P (MAP) Pulse Ox O2 Delivery O2 Flow Rate FiO2 11/14/21 11:00 96.3 67 16 133/55 (81) 96 Nasal Cannula 9.0 96.3 Labs Labs Laboratory Tests Test 11/13/21 22:22 11/13/21 22:24 11/13/21 22:25 11/14/21 02:04 Influenza Type A Antigen Negative (NEGATIVE) Influenza Type B Antigen Negative (NEGATIVE) O2 Saturation 89 % (92-99) Arterial Blood pH 7.37 (7.35-7.45) Arterial Blood pCO2 at Patient Temp 45 mmHg (35-46) Arterial Blood pO2 at Patient Temp 56 mmHg (65-108) Arterial Blood HCO3 26 mmol/L (21-28) Arterial Blood Base Excess 0 mmol/L (-3-3) FiO2 52 White Blood Count 7.0 x10^3/uL (4.0-11.0) Red Blood Count 4.13 x10^6/uL (4.30-5.70) Hemoglobin 12.1 g/dL (13.0-17.5) Hematocrit 38.1 % (39.0-53.0) Mean Corpuscular Volume 92 fL (79-100) Mean Corpuscular Hemoglobin 29 pg (25-35) Mean Corpuscular Hemoglobin Concent 32 g/dL (31-37) Red Cell Distribution Width 17.9 % (11.5-14.5) Platelet Count 63 x10^3/uL (140-400) Neutrophils (%) (Auto) 85 % (31-73) Lymphocytes (%) (Auto) 9 % (24-48) Monocytes (%) (Auto) 6 % (0-9) Eosinophils (%) (Auto) 0 % (0-3) Basophils (%) (Auto) 1 % (0-3) Neutrophils # (Auto) 5.9 x10^3/uL (1.8-7.7) Lymphocytes # (Auto) 0.6 x10^3/uL (1.0-4.8) Monocytes # (Auto) 0.4 x10^3/uL (0.0-1.1) Eosinophils # (Auto) 0.0 x10^3/uL (0.0-0.7) Basophils # (Auto) 0.0 x10^3/uL (0.0-0.2) Segmented Neutrophils % 82 % (35-66) Band Neutrophils % 7 % (0-9) Lymphocytes % 9 % (24-48) Monocytes % 2 % (0-10) Toxic Granulation Slight Platelet Estimate Decreased (ADEQUATE) Anisocytosis Slight Prothrombin Time 13.4 SEC (11.7-14.0) Prothromb Time International Ratio 1.0 (0.8-1.1) Activated Partial Thromboplast Time 44 SEC (24-38) Sodium Level 144 mmol/L (136-145) Potassium Level 3.5 mmol/L (3.5-5.1) Chloride Level 100 mmol/L (98-107) Carbon Dioxide Level 26 mmol/L (21-32) Anion Gap 18 (6-14) Blood Urea Nitrogen 40 mg/dL (8-26) Creatinine 5.9 mg/dL (0.7-1.3) Estimated GFR (Cockcroft-Gault) 9.9 BUN/Creatinine Ratio 7 (6-20) Glucose Level 220 mg/dL (70-99) Lactic Acid Level 1.6 mmol/L (0.4-2.0) Calcium Level 8.3 mg/dL (8.5-10.1) Magnesium Level 2.1 mg/dL (1.8-2.4) Total Bilirubin 0.8 mg/dL (0.2-1.0) Aspartate Amino Transf (AST/SGOT) 18 U/L (15-37) Alanine Aminotransferase (ALT/SGPT) 10 U/L (16-63) Alkaline Phosphatase 154 U/L (46-116) Creatine Kinase 50 U/L (39-308) Troponin I High Sensitivity 160 ng/L (4-75) UF-Eol-M-Type Natriuretic Peptide > 94693 pg/mL (0-124) Total Protein 6.7 g/dL (6.4-8.2) Albumin 2.5 g/dL (3.4-5.0) Albumin/Globulin Ratio 0.6 (1.0-1.7) Procalcitonin > 125.00 ng/mL (0.00-0.10) SARS-CoV-2 Antigen (Rapid) Positive (NEGATIVE) Test 11/14/21 07:50 11/14/21 13:52 Glucose (Fingerstick) 254 mg/dL (70-99) 142 mg/dL (70-99) Laboratory Tests Test 11/13/21 22:22 11/13/21 22:24 11/13/21 22:25 11/14/21 02:04 Influenza Type A Antigen Negative (NEGATIVE) Influenza Type B Antigen Negative (NEGATIVE) O2 Saturation 89 % (92-99) Arterial Blood pH 7.37 (7.35-7.45) Arterial Blood pCO2 at Patient Temp 45 mmHg (35-46) Arterial Blood pO2 at Patient Temp 56 mmHg (65-108) Arterial Blood HCO3 26 mmol/L (21-28) Arterial Blood Base Excess 0 mmol/L (-3-3) FiO2 52 White Blood Count 7.0 x10^3/uL (4.0-11.0) Red Blood Count 4.13 x10^6/uL (4.30-5.70) Hemoglobin 12.1 g/dL (13.0-17.5) Hematocrit 38.1 % (39.0-53.0) Mean Corpuscular Volume 92 fL (79-100) Mean Corpuscular Hemoglobin 29 pg (25-35) Mean Corpuscular Hemoglobin Concent 32 g/dL (31-37) Red Cell Distribution Width 17.9 % (11.5-14.5) Platelet Count 63 x10^3/uL (140-400) Neutrophils (%) (Auto) 85 % (31-73) Lymphocytes (%) (Auto) 9 % (24-48) Monocytes (%) (Auto) 6 % (0-9) Eosinophils (%) (Auto) 0 % (0-3) Basophils (%) (Auto) 1 % (0-3) Neutrophils # (Auto) 5.9 x10^3/uL (1.8-7.7) Lymphocytes # (Auto) 0.6 x10^3/uL (1.0-4.8) Monocytes # (Auto) 0.4 x10^3/uL (0.0-1.1) Eosinophils # (Auto) 0.0 x10^3/uL (0.0-0.7) Basophils # (Auto) 0.0 x10^3/uL (0.0-0.2) Segmented Neutrophils % 82 % (35-66) Band Neutrophils % 7 % (0-9) Lymphocytes % 9 % (24-48) Monocytes % 2 % (0-10) Toxic Granulation Slight Platelet Estimate Decreased (ADEQUATE) Anisocytosis Slight Prothrombin Time 13.4 SEC (11.7-14.0) Prothromb Time International Ratio 1.0 (0.8-1.1) Activated Partial Thromboplast Time 44 SEC (24-38) Sodium Level 144 mmol/L (136-145) Potassium Level 3.5 mmol/L (3.5-5.1) Chloride Level 100 mmol/L (98-107) Carbon Dioxide Level 26 mmol/L (21-32) Anion Gap 18 (6-14) Blood Urea Nitrogen 40 mg/dL (8-26) Creatinine 5.9 mg/dL (0.7-1.3) Estimated GFR (Cockcroft-Gault) 9.9 BUN/Creatinine Ratio 7 (6-20) Glucose Level 220 mg/dL (70-99) Lactic Acid Level 1.6 mmol/L (0.4-2.0) Calcium Level 8.3 mg/dL (8.5-10.1) Magnesium Level 2.1 mg/dL (1.8-2.4) Total Bilirubin 0.8 mg/dL (0.2-1.0) Aspartate Amino Transf (AST/SGOT) 18 U/L (15-37) Alanine Aminotransferase (ALT/SGPT) 10 U/L (16-63) Alkaline Phosphatase 154 U/L (46-116) Creatine Kinase 50 U/L (39-308) Troponin I High Sensitivity 160 ng/L (4-75) YC-Qtu-S-Type Natriuretic Peptide > 50518 pg/mL (0-124) Total Protein 6.7 g/dL (6.4-8.2) Albumin 2.5 g/dL (3.4-5.0) Albumin/Globulin Ratio 0.6 (1.0-1.7) Procalcitonin > 125.00 ng/mL (0.00-0.10) SARS-CoV-2 Antigen (Rapid) Positive (NEGATIVE) Test 11/14/21 07:50 11/14/21 13:52 Glucose (Fingerstick) 254 mg/dL (70-99) 142 mg/dL (70-99) Assessment/Plan Assessment/Plan 1. Acute hypoxic respiratory failure secondary to Covid pneumonia. Continue current treatment. Pulmonary team consulted. 2. Acute on chronic combined systolic and diastolic heart failure secondary to missed hemodialysis. 2D echo in March 2021 showed LVEF 40 to 45%. Continue fluid removal with dialysis per nephrology team. 3. Coronary artery disease s/p PCI/SCOTTY to LCx and RCA July 2018. Troponin level slightly elevated probably demand ischemia. He is chest pain-free. Continue current secondary prevention measures. 4. 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 Hypertension: Controlled 6. Hyperlipidemia continue statin therapy 7. DM2: Treat per IM 8. End-stage renal disease: Continue hemodialysis per nephrology team Thank you for your consultation ANAY HOANG MD Nov 14, 2021 14:28
[2021-11-14 15:00] VITALS: BP 139/69
[2021-11-14] MEDS: cefTRIAXone IV Push 1 GM VIAL. IVP SCH (16:01)
[2021-11-14] MEDS: methylPREDNISolone SOD SUCC PF 40 MG/ML VIAL. IV SCH ×2 (16:02→21:52)
[2021-11-14 19:57] VITALS: BP 161/74
--- NOTE | 2021-11-14 20:41 | CONS ---
DATE OF CONSULTATION: 11/14/2021 REQUESTING PHYSICIAN: Hospitalist. REASON FOR CONSULTATION: Renal failure. HISTORY OF PRESENT ILLNESS: A 61-year-old gentleman with history of diabetes mellitus, hypertension, end-stage renal disease, which is hemodialysis dependent. The patient is admitted in setting of shortness of breath and found to be COVID-19 positive, he will need ongoing dialysis. PAST MEDICAL HISTORY: Diabetes mellitus; hypertension; end-stage renal disease, hemodialysis dependent; anemia of chronic kidney disease; secondary hyperparathyroidism; renal disease; COPD; hyperlipidemia; hypothyroidism. ALLERGIES: None. MEDICATIONS: Reviewed per medication list. FAMILY HISTORY: Noncontributory. SOCIAL HISTORY: The patient resides independently. Former smoker. REVIEW OF SYSTEMS: Other than shortness of breath, which he has had previously with missed dialysis treatments and generalized fatigue. Further remainder of review of systems is unremarkable. PHYSICAL EXAMINATION: Due to COVID-19 positive status, bedside examination not pursued. LABORATORY DATA: White count 7, hemoglobin 12, hematocrit 38, platelets are 63. Sodium 144, potassium 3.5, chloride 100, CO2 of 26, BUN 40, creatinine 5.9, GFR 9.9. Mag 2.1, calcium 8.3. IMPRESSION: 1. End-stage renal disease secondary to diabetes mellitus and hypertension, nephrosclerosis - hemodialysis dependent. The patient has missed dialysis treatment. 2. Pulmonary edema due to missed dialysis treatment. Review of shortness of breath could certainly be on the basis of COVID-19 respiratory infection as well. 3. Diabetes mellitus. 4. Hypertension. 5. COVID-19 positive status. RECOMMENDATIONS: 1. Ongoing dialysis with dialysis today and then Tuesday, Tuesday and Tuesday. 2. Treatment of COVID-19 infection per primary service. We will follow. TIERRA/FREEMAN DR: TIERRA/radha TID: [id number]
[2021-11-14] MEDS: AZITHROMYCIN 500 MG in IV NORMAL SALINE 250ML 250 ML IV SCH (21:00)
[2021-11-14] MEDS: HEPARIN for SUB-Q USE 5,000 UNIT/ML VIAL. SQ SCH (21:54)
[2021-11-14 22:48] VITALS: BP 145/68
[2021-11-15 02:27] VITALS: BP 167/85
[2021-11-15 04:39] LABS: BASO % 0 % (0-3); EOS % 0 % (0-3); HEMATOCRIT 46.2 % (39.0-53.0); HEMOGLOBIN 14.4 g/dL (13.0-17.5); LYMPH # 0.6 x10^3/uL (1.0-4.8); LYMPH % 9 % (24-48); MEAN CORPUSCULAR HEMOGLOBIN 29 pg (25-35); MEAN CORPUSCULAR HGB CONC 31 g/dL (31-37); MEAN CORPUSCULAR VOLUME 93 fL (79-100); MONO # 0.1 x10^3/uL (0.0-1.1); MONO % 1 % (0-9); NEUT # 5.5 x10^3/uL (1.8-7.7); NEUT % 89 % (31-73); PLATELET COUNT 71 x10^3/uL (140-400); RED CELL DISTRIBUTION WIDTH 18.9 % (11.5-14.5); WHITE BLOOD COUNT 6.2 x10^3/uL (4.0-11.0)
[2021-11-15 04:51] LABS: CALCIUM 8.2 mg/dL (8.5-10.1); CREATININE 3.5 mg/dL (0.7-1.3); MAGNESIUM 2.3 mg/dL (1.8-2.4); PHOSPHORUS 5.8 mg/dL (2.6-4.7); POTASSIUM 4.7 mmol/L (3.5-5.1)
[2021-11-15] MEDS: methylPREDNISolone SOD SUCC PF 40 MG/ML VIAL. IV SCH ×3 (06:15→21:17)
[2021-11-15 07:00] VITALS: BP 152/77
[2021-11-15] MEDS: ZINC SULFATE 220 MG CAPSULE. PO SCH (08:54)
[2021-11-15] MEDS: THIAMINE 100 MG TABLET. PO SCH (08:54)
[2021-11-15] MEDS: ASCORBIC ACID 1,000 MG TABLET PO SCH ×3 (08:54→21:14)
[2021-11-15] MEDS: cefTRIAXone IV Push 1 GM VIAL. IVP SCH (08:55)
[2021-11-15] MEDS: HEPARIN for SUB-Q USE 5,000 UNIT/ML VIAL. SQ SCH ×2 (08:57→21:14)
[2021-11-15] MEDS: INSULIN LISPRO 300 UNITS/3 ML VIAL. SQ SCH ×3 (09:00→17:17)
[2021-11-15 11:00] VITALS: BP 161/72
--- NOTE | 2021-11-15 12:15 | PDOC ---
[employer] PROGRESS NOTE Date of Service DOS: DATE: 11/15/21 TIME: 12:11 Chief Complaint Chief Complaint Assessment/Plan Acute hypoxic respiratory failure secondary to Covid pneumonia COVID-19 infection Acute electrolyte derangement consistent with ESRD Anemia of ESRD left ewnio-vej-tnam amputation for Diabetic foot ulcer on left leg with dry gangrene end-stage renal disease on HD via RUE access Severe peripheral vascular disease, prior right BKA, , diabetes, hypertension, hyperlipidemia, depression, anxiety. weight loss, Chronic pain, Osteoarthritis, LE edema, hypothyroidism. hx of falls, left hip fracture --> left total hip arthroplasty. meet-umbilical subcutaneous bruising - CT abdomen/pelvis to r/o intraabdominal hemorrhage/pancreatitis 09/01/21 anemia on ESRD previous smoker hx of poor compliance noted Admit to medicine for further management Pulmonology consult Continue IV thiamine and vitamin C IV Solu-Medrol every 8 hours IV Remdesivir if patient requires O2 supplementation beyond there baseline Pending ferritin, LDH, CRP, D-dimer labs Titrate O2 supplementation to maintain O2 saturation greater than 92% Empiric IV antibiotics if patient has clinical presentation for bacterial pneumonia Heparin for DVT prophylaxis Protonix while on steroids GI prophylaxis ADA diet Full code Discussed with RN and SW Disposition inpatient management as above Surrogate decision maker is the History of Present Illness History of Present Illness 61-year-old male past medical history of hypothyroidism, diabetes, hypertension, hyperlipidemia, hypothyroidism, COPD on 4 L nasal cannula and ESRD (MWF, anuric), presents to the ED brought in by EMS from home with complaints of shortness of breath stating this feels like his typical fluid overload. Patient missed his hemodialysis today due to a follow-up appointment regarding history of right broken shoulder. Reports no medications were changed. Patient arrives 93% on 10 L nonrebreather, s/p 1 duoneb. Takes 4 duo nebs daily and 1 qhs. Has received his Covid vaccine x2 but has not been boostered. Meds reviewed-takes lasix 80mg bid. Has petechia and bruising to right cheek, anterior neck and posterior occiput-when asked if he fell he states "I don't know." Pt is alert and oriented but not fully cooperative which limits history (I suspect due to his work of breathing). 11/15/2021 No acute events overnight. Patient seen examined bedside. Patient does not believe that he has Covid infection. We will continue dialysis. Patient requiring 10 L oxygen and saturating 98%. We will continue with Covid protocol treatment Vitals/I&O Vitals/I&O: Vital Signs Date Time Temp Pulse Resp B/P (MAP) Pulse Ox O2 Delivery O2 Flow Rate FiO2 11/15/21 11:00 96.2 75 16 161/72 (101) 98 Nasal Cannula 9.0 96.2 I & O 11/14/21 11/14/21 11/15/21 15:00 23:00 07:00 Intake Total 410 ml 550 ml 0 ml Balance 410 ml 550 ml 0 ml Physical Exam General: Alert, No acute distress Heart: Regular rate Lungs: Clear Abdomen: Soft Extremities: Other (Right BKA and left AKA) Labs Labs: Laboratory Tests Test 11/14/21 13:52 11/14/21 17:05 11/14/21 20:50 11/15/21 04:00 Glucose (Fingerstick) 142 mg/dL (70-99) 123 mg/dL (70-99) 198 mg/dL (70-99) White Blood Count 6.2 x10^3/uL (4.0-11.0) Red Blood Count 5.00 x10^6/uL (4.30-5.70) Hemoglobin 14.4 g/dL (13.0-17.5) Hematocrit 46.2 % (39.0-53.0) Mean Corpuscular Volume 93 fL (79-100) Mean Corpuscular Hemoglobin 29 pg (25-35) Mean Corpuscular Hemoglobin Concent 31 g/dL (31-37) Red Cell Distribution Width 18.9 % (11.5-14.5) Platelet Count 71 x10^3/uL (140-400) Neutrophils (%) (Auto) 89 % (31-73) Lymphocytes (%) (Auto) 9 % (24-48) Monocytes (%) (Auto) 1 % (0-9) Eosinophils (%) (Auto) 0 % (0-3) Basophils (%) (Auto) 0 % (0-3) Neutrophils # (Auto) 5.5 x10^3/uL (1.8-7.7) Lymphocytes # (Auto) 0.6 x10^3/uL (1.0-4.8) Monocytes # (Auto) 0.1 x10^3/uL (0.0-1.1) Eosinophils # (Auto) 0.0 x10^3/uL (0.0-0.7) Basophils # (Auto) 0.0 x10^3/uL (0.0-0.2) Sodium Level 140 mmol/L (136-145) Potassium Level 4.7 mmol/L (3.5-5.1) Chloride Level 100 mmol/L (98-107) Carbon Dioxide Level 25 mmol/L (21-32) Anion Gap 15 (6-14) Blood Urea Nitrogen 29 mg/dL (8-26) Creatinine 3.5 mg/dL (0.7-1.3) Estimated GFR (Cockcroft-Gault) 18.0 Glucose Level 329 mg/dL (70-99) Calcium Level 8.2 mg/dL (8.5-10.1) Phosphorus Level 5.8 mg/dL (2.6-4.7) Magnesium Level 2.3 mg/dL (1.8-2.4) Test 11/15/21 08:03 11/15/21 11:02 Glucose (Fingerstick) 360 mg/dL (70-99) 343 mg/dL (70-99) Assessment and Plan Assessmemt and Plan Problems Medical Problems: (1) Acute respiratory failure with hypoxia Status: Acute (2) COVID-19 Status: Acute (3) NSTEMI (non-ST elevated myocardial infarction) Status: Acute Comment Review of Relevant I have reviewed the following items yesenia (where applicable) has been applied. Medications: Current Medications Medications (Trade) Dose Ordered Sig/Celi Route PRN Reason Start Time Stop Time Status Last Admin Dose Admin Heparin Sodium (Porcine) (Heparin Sodium) 5,000 unit Q12HR SQ 11/14/21 21:00 11/15/21 08:57 Azithromycin 500 mg/Sodium Chloride 250 ml @ 250 mls/hr Q24H IV 11/14/21 21:00 11/17/21 21:59 11/14/21 21:00 Ascorbic Acid (Vitamin C) 3,000 mg TID PO 11/14/21 14:00 11/15/21 08:54 Methylprednisolone Sodium Succinate (SOLU-Medrol 40MG VIAL) 40 mg Q8HRS IV 11/14/21 14:00 11/15/21 06:15 Thiamine Mononitrate (Vitamin B-1) 300 mg DAILY PO 11/15/21 09:00 11/15/21 08:54 Zinc Sulfate (Orazinc) 220 mg DAILY PO 11/15/21 09:00 11/15/21 08:54 Justifications for Admission Other Justification COVID-19 positive test (U07.1, COVID-19) with Acute Pneumonia (J12.89, Other viral pneumonia) (If respiratory failure or sepsis present, add as separate assessment) ESRD, fluid overload PAWEL GARCÍA MD Nov 15, 2021 12:15
[2021-11-15] MEDS: LACTOBACILLUS RHAMNOSUS GG 1 CAPSULE. PO SCH ×2 (12:18→21:17)
--- NOTE | 2021-11-15 12:48 | PDOC ---
PROGRESS NOTES Date of Service: DATE: 11/15/21 TIME: 12:46 Subjective Subjective c/o dyspnea, on 10 L oxygen Objective Objective Vital Signs Date Time Temp Pulse Resp B/P (MAP) Pulse Ox O2 Delivery O2 Flow Rate FiO2 11/15/21 11:00 96.2 75 16 161/72 (101) 98 Nasal Cannula 9.0 96.2 Intake and Output 11/15/21 07:00 Intake Total 960 ml Balance 960 ml Intake Oral 960 ml # Bowel Movements 4 Physical Exam Abdomen: Soft Heart: Regular rate Extremities: Other (Right BKA and left AKA) General: Alert, No acute distress HEENT: PERRLA Lungs: Clear to auscultation MUSCULOSKELETAL: No joint tenderness, No swelling Neuro: Normal speech Psych/Mental Status: Mood NL Assessment Assessment 1. Acute hypoxic respiratory failure secondary to Covid pneumonia. Continue current treatment. 2. Acute on chronic combined systolic and diastolic heart failure secondary to missed hemodialysis. 2D echo in March 2021 showed LVEF 40 to 45%. Continue fluid removal with dialysis per nephrology team. 3. Coronary artery disease s/p PCI/SCOTTY to LCx and RCA July 2018. Troponin level slightly elevated probably demand ischemia. He is chest pain-free. Continue current secondary prevention measures. 4. 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 Hypertension: Continue current medical regimen 6. Hyperlipidemia continue statin therapy 7. DM2: Treat per IM 8. End-stage renal disease: Continue hemodialysis per nephrology team Plan Plan of Care Problems Medical Problems: (1) Acute respiratory failure with hypoxia Status: Acute (2) COVID-19 Status: Acute (3) NSTEMI (non-ST elevated myocardial infarction) Status: Acute Comment Review of Relevant I have reviewed the following items yesenia (where applicable) has been applied. Labs Laboratory Tests Test 11/14/21 13:52 11/14/21 17:05 11/14/21 20:50 11/15/21 04:00 Glucose (Fingerstick) 142 mg/dL (70-99) 123 mg/dL (70-99) 198 mg/dL (70-99) White Blood Count 6.2 x10^3/uL (4.0-11.0) Red Blood Count 5.00 x10^6/uL (4.30-5.70) Hemoglobin 14.4 g/dL (13.0-17.5) Hematocrit 46.2 % (39.0-53.0) Mean Corpuscular Volume 93 fL (79-100) Mean Corpuscular Hemoglobin 29 pg (25-35) Mean Corpuscular Hemoglobin Concent 31 g/dL (31-37) Red Cell Distribution Width 18.9 % (11.5-14.5) Platelet Count 71 x10^3/uL (140-400) Neutrophils (%) (Auto) 89 % (31-73) Lymphocytes (%) (Auto) 9 % (24-48) Monocytes (%) (Auto) 1 % (0-9) Eosinophils (%) (Auto) 0 % (0-3) Basophils (%) (Auto) 0 % (0-3) Neutrophils # (Auto) 5.5 x10^3/uL (1.8-7.7) Lymphocytes # (Auto) 0.6 x10^3/uL (1.0-4.8) Monocytes # (Auto) 0.1 x10^3/uL (0.0-1.1) Eosinophils # (Auto) 0.0 x10^3/uL (0.0-0.7) Basophils # (Auto) 0.0 x10^3/uL (0.0-0.2) Sodium Level 140 mmol/L (136-145) Potassium Level 4.7 mmol/L (3.5-5.1) Chloride Level 100 mmol/L (98-107) Carbon Dioxide Level 25 mmol/L (21-32) Anion Gap 15 (6-14) Blood Urea Nitrogen 29 mg/dL (8-26) Creatinine 3.5 mg/dL (0.7-1.3) Estimated GFR (Cockcroft-Gault) 18.0 Glucose Level 329 mg/dL (70-99) Calcium Level 8.2 mg/dL (8.5-10.1) Phosphorus Level 5.8 mg/dL (2.6-4.7) Magnesium Level 2.3 mg/dL (1.8-2.4) Test 11/15/21 08:03 11/15/21 11:02 Glucose (Fingerstick) 360 mg/dL (70-99) 343 mg/dL (70-99) Microbiology 11/14/21 Blood Culture - Final, Complete Medications Current Medications Ascorbic Acid (Vitamin C) 3,000 mg TID PO Last administered on 11/15/21 08:54; Start 11/14/21 at 14:00 Azithromycin 500 mg/Sodium Chloride 250 ml @ 250 mls/hr Q24H IV Last administered on 11/14/21at 21:00; Start 11/14/21 at 21:00; Stop 11/17/21 at 21:59 Heparin Sodium (Porcine) (Heparin Sodium) 5,000 unit Q12HR SQ Last administered on 11/15/21at 08:57; Start 11/14/21 at 21:00 Lactobacillus Rhamnosus (Culturelle) 1 cap BID PO Last administered on 11/15/21at 12:18; Start 11/15/21 at 12:00 Methylprednisolone Sodium Succinate (SOLU-Medrol 40MG VIAL) 40 mg Q8HRS IV Last administered on 11/15/21at 06:15; Start 11/14/21 at 14:00 Thiamine Mononitrate (Vitamin B-1) 300 mg DAILY PO Last administered on 11/15/21at 08:54; Start 11/15/21 at 09:00 Zinc Sulfate (Orazinc) 220 mg DAILY PO Last administered on 11/15/21at 08:54; Start 11/15/21 at 09:00 Vitals/I & O Vital Sign - Last 24 Hours 11/14/21 11/14/21 11/14/21 11/14/21 15:00 19:57 20:13 22:48 Temp 96.3 96.9 97.3 96.3 96.9 97.3 Pulse 69 70 76 Resp 20 16 16 B/P (MAP) 139/69 (92) 161/74 (103) 145/68 (93) Pulse Ox 94 96 94 O2 Delivery Nasal Cannula Nasal Cannula Nasal Cannula Nasal Cannula O2 Flow Rate 9.0 9.0 5.0 9.0 11/15/21 11/15/21 11/15/21 11/15/21 02:27 07:00 08:00 11:00 Temp 97.5 98.3 96.2 97.5 98.3 96.2 Pulse 74 77 75 Resp 16 20 16 B/P (MAP) 167/85 (112) 152/77 (102) 161/72 (101) Pulse Ox 100 95 98 O2 Delivery Nasal Cannula Nasal Cannula Nasal Cannula Nasal Cannula O2 Flow Rate 9.0 9.0 10.0 9.0 Intake and Output 11/14/21 11/14/21 11/15/21 15:00 23:00 07:00 Intake Total 410 ml 550 ml 0 ml Balance 410 ml 550 ml 0 ml ANAY HOANG MD Nov 15, 2021 12:48
[2021-11-15 14:44] VITALS: BP 173/82
[2021-11-15 19:07] VITALS: BP 160/74
[2021-11-15] MEDS: AZITHROMYCIN 500 MG in IV NORMAL SALINE 250ML 250 ML IV SCH (21:00)
[2021-11-15] MEDS: INSULIN GLARGINE SYRINGE. SQ SCH (21:15)
[2021-11-15 22:47] VITALS: BP 164/77
[2021-11-16 03:06] VITALS: BP 163/77
[2021-11-16 04:16] LABS: BASO % 0 % (0-3); EOS % 0 % (0-3); HEMATOCRIT 46.5 % (39.0-53.0); HEMOGLOBIN 14.9 g/dL (13.0-17.5); LYMPH # 0.6 x10^3/uL (1.0-4.8); LYMPH % 9 % (24-48); MEAN CORPUSCULAR HEMOGLOBIN 30 pg (25-35); MEAN CORPUSCULAR HGB CONC 32 g/dL (31-37); MEAN CORPUSCULAR VOLUME 94 fL (79-100); MONO # 0.2 x10^3/uL (0.0-1.1); MONO % 2 % (0-9); NEUT # 6.4 x10^3/uL (1.8-7.7); NEUT % 89 % (31-73); PLATELET COUNT 82 x10^3/uL (140-400); RED BLOOD COUNT 4.97 x10^6/uL (4.30-5.70); RED CELL DISTRIBUTION WIDTH 18.7 % (11.5-14.5); WHITE BLOOD COUNT 7.2 x10^3/uL (4.0-11.0)
[2021-11-16 04:31] LABS: CALCIUM 8.2 mg/dL (8.5-10.1); CREATININE 4.5 mg/dL (0.7-1.3); GFR 13.5; MAGNESIUM 2.6 mg/dL (1.8-2.4); POTASSIUM 4.6 mmol/L (3.5-5.1)
[2021-11-16] MEDS: methylPREDNISolone SOD SUCC PF 40 MG/ML VIAL. IV SCH ×3 (05:23→20:46)
[2021-11-16 07:55] VITALS: BP 156/75
[2021-11-16] MEDS: ASCORBIC ACID 1,000 MG TABLET PO SCH ×3 (08:39→20:46)
[2021-11-16] MEDS: cefTRIAXone IV Push 1 GM VIAL. IVP SCH (08:39)
[2021-11-16] MEDS: THIAMINE 100 MG TABLET. PO SCH (08:39)
[2021-11-16] MEDS: LACTOBACILLUS RHAMNOSUS GG 1 CAPSULE. PO SCH ×2 (08:39→20:46)
[2021-11-16] MEDS: ZINC SULFATE 220 MG CAPSULE. PO SCH (08:39)
[2021-11-16] MEDS: HEPARIN for SUB-Q USE 5,000 UNIT/ML VIAL. SQ SCH ×2 (08:40→20:44)
[2021-11-16] MEDS: INSULIN GLARGINE SYRINGE. SQ SCH ×2 (08:44→20:43)
[2021-11-16] MEDS: INSULIN LISPRO 300 UNITS/3 ML VIAL. SQ SCH ×3 (09:15→16:31)
[2021-11-16] MEDS ORDERED: VANCOMYCIN 1 GM in IV NORMAL SALINE 250ML 250 ML IV ONE (09:30)
[2021-11-16] MEDS ORDERED: DIALYSIS PATIENT. MC PRN ×2 (09:45)
[2021-11-16] MEDS ORDERED: IV NORMAL SALINE 1000ML BAG 1,000 ML IV PRN ×2 (09:45)
[2021-11-16 10:31] VITALS: BP 161/75
--- NOTE | 2021-11-16 10:47 | PDOC ---
DATE OF SERVICE DATE: 11/16/21 TIME: 10:40 SUBJECTIVE ROS Increased O2 requirement at presentation Currently some improvent in O2 requirement . No other complaints OBJECTIVE Vital Signs Vital Signs Date Time Temp Pulse Resp B/P (MAP) Pulse Ox O2 Delivery O2 Flow Rate FiO2 11/16/21 10:31 97.9 71 18 161/75 (103) 98 Nasal Cannula 4.0 97.9 I & 0 Intake and Output 11/16/21 07:00 Intake Total 1140 ml Output Total 700 ml Balance 440 ml Intake Oral 1140 ml Output Stool Total 700 ml # Bowel Movements 2 PHYSICAL EXAM Physical Exam GENERAL: NAD HEENT: OM moist , On Chronic home O2, Increased currently NECK: Supple. LUNGS: non labored HEART: S1, S2. ABDOMEN: Soft, nontender. EXTREMITIES: AVG Rt ; Rt BKA SKIN : No generalized rash, no enriquez DIAGNOSIS/ASSESSMENT Assessment & Plan ESRD - On HD MWF @ [facility] under Dr. Scanlon .Dialysis today. Discussed treatment plan with [facility] Access - Rt arm AVF -- s/p Fistulogram 06/23/21- Moderate stenoses at the junction of the previously stented cephalic vein and subclavian vein, as well as the subclavian vein in the right innominate vein treated with balloon angioplasty with improvement morphology and flow. Anemia Hgb stable, required PRBC in the past . Currently No indication for FABIAN Acute hypoxic respiratory failure secondary to Covid pneumonia COVID-19 infection DM primary managing. Episodes of Hypoglycemia in the past Hypertension BP stable Hx of Right heel wound, - s/p Irrigation debridement of right heel ulcer skin subcutaneous tissue and removal of right great toenail. S/P right below-knee amputation and left heel and great toe debridement on 06/19 history Acute Lt Femoral neck displaced fracture s/p Lt Hip Repair COPD with home O2 dependency COMMENT/RELEVANT DATA Meds Current Medications Medications (Trade) Dose Ordered Sig/Celi Start Time Stop Time Status Last Admin Dose Admin Acetaminophen (Tylenol) 650 mg PRN Q4HRS PRN 11/14/21 09:30 Albumin Human 200 ml @ 200 mls/hr 1X PRN PRN 11/14/21 11:15 11/14/21 17:14 DC Ascorbic Acid (Vitamin C) 3,000 mg TID 11/14/21 14:00 11/16/21 08:39 3,000 MG Azithromycin (Zithromax) 500 mg 1X ONCE 11/14/21 01:00 11/14/21 01:01 DC 11/14/21 01:00 500 MG Azithromycin 500 mg/Sodium Chloride 250 ml @ 250 mls/hr Q24H 11/14/21 21:00 11/17/21 21:59 11/15/21 21:00 250 MLS/HR Ceftriaxone Sodium (Rocephin) 1 gm DAILY 11/14/21 09:30 11/20/21 09:01 11/16/21 08:39 1 GM Dextrose (Dextrose 50%-Water Syringe) 12.5 gm PRN Q15MIN PRN 11/14/21 09:30 Diphenhydramine HCl (Benadryl) 25 mg PRN QHS PRN 11/14/21 09:30 Docusate Sodium (Colace) 100 mg PRN DAILY PRN 11/14/21 09:30 Heparin Sodium (Porcine) (Heparin Sodium) 5,000 unit Q12HR 11/14/21 21:00 11/16/21 08:40 5,000 UNIT Info (CONTRAST GIVEN -- Rx MONITORING) 1 each PRN DAILY PRN 11/13/21 23:45 11/15/21 23:44 DC Info (PHARMACY MONITORING -- do not chart) 1 each PRN DAILY PRN 11/16/21 09:45 Insulin Glargine (Lantus Syringe) 10 unit Q12HR 11/15/21 21:00 11/16/21 08:44 10 UNIT Insulin Human Lispro (HumaLOG) 0-7 UNITS TIDWMEALS 11/15/21 17:00 11/16/21 09:15 12 UNITS Iohexol (Omnipaque 350 Mg/ml) 90 ml 1X ONCE 11/14/21 00:00 11/14/21 00:01 DC 11/14/21 00:13 90 ML Lactobacillus Rhamnosus (Culturelle) 1 cap BID 11/15/21 12:00 11/16/21 08:39 1 CAP Lidocaine HCl (Xylocaine-Mpf 1% 2ml Vial) 2 ml 1X PRN PRN 11/14/21 11:15 11/14/21 19:00 DC Lorazepam (Ativan Inj) 0.25 mg PRN Q4HRS PRN 11/14/21 09:30 Lorazepam (Ativan) 0.5 mg PRN Q6HRS PRN 11/14/21 09:30 Methylprednisolone Sodium Succinate (SOLU-Medrol 40MG VIAL) 40 mg Q8HRS 11/14/21 14:00 11/16/21 05:23 40 MG Ondansetron HCl (Zofran) 4 mg PRN Q6HRS PRN 11/14/21 09:30 Prochlorperazine Edisylate (Compazine) 10 mg PRN Q6HRS PRN 11/14/21 09:30 Sennosides (Senna) 17.2 mg PRN BID PRN 11/14/21 09:30 Sodium Chloride 1,000 ml @ 400 mls/hr Q2H30M PRN 11/16/21 09:45 11/16/21 21:44 Thiamine Mononitrate (Vitamin B-1) 300 mg DAILY 11/15/21 09:00 11/16/21 08:39 300 MG Vancomycin HCl (Vanco Per Pharmacy) 1 each PRN DAILY PRN 11/16/21 09:00 Vancomycin HCl 1 gm/Sodium Chloride 250 ml @ 250 mls/hr 1X ONCE 11/16/21 09:30 11/16/21 10:29 DC 11/16/21 09:16 250 MLS/HR Zinc Sulfate (Orazinc) 220 mg DAILY 11/15/21 09:00 11/16/21 08:39 220 MG Zolpidem Tartrate (Ambien) 2.5 mg PRN QHS PRN 11/14/21 09:30 Lab Laboratory Tests Test 11/15/21 11:02 11/15/21 16:56 11/15/21 20:17 11/16/21 03:55 Glucose (Fingerstick) 343 mg/dL (70-99) 232 mg/dL (70-99) 190 mg/dL (70-99) White Blood Count 7.2 x10^3/uL (4.0-11.0) Red Blood Count 4.97 x10^6/uL (4.30-5.70) Hemoglobin 14.9 g/dL (13.0-17.5) Hematocrit 46.5 % (39.0-53.0) Mean Corpuscular Volume 94 fL (79-100) Mean Corpuscular Hemoglobin 30 pg (25-35) Mean Corpuscular Hemoglobin Concent 32 g/dL (31-37) Red Cell Distribution Width 18.7 % (11.5-14.5) Platelet Count 82 x10^3/uL (140-400) Neutrophils (%) (Auto) 89 % (31-73) Lymphocytes (%) (Auto) 9 % (24-48) Monocytes (%) (Auto) 2 % (0-9) Eosinophils (%) (Auto) 0 % (0-3) Basophils (%) (Auto) 0 % (0-3) Neutrophils # (Auto) 6.4 x10^3/uL (1.8-7.7) Lymphocytes # (Auto) 0.6 x10^3/uL (1.0-4.8) Monocytes # (Auto) 0.2 x10^3/uL (0.0-1.1) Eosinophils # (Auto) 0.0 x10^3/uL (0.0-0.7) Basophils # (Auto) 0.0 x10^3/uL (0.0-0.2) Sodium Level 136 mmol/L (136-145) Potassium Level 4.6 mmol/L (3.5-5.1) Chloride Level 95 mmol/L (98-107) Carbon Dioxide Level 22 mmol/L (21-32) Anion Gap 19 (6-14) Blood Urea Nitrogen 56 mg/dL (8-26) Creatinine 4.5 mg/dL (0.7-1.3) Estimated GFR (Cockcroft-Gault) 13.5 Glucose Level 376 mg/dL (70-99) Calcium Level 8.2 mg/dL (8.5-10.1) Magnesium Level 2.6 mg/dL (1.8-2.4) Test 11/16/21 08:47 Glucose (Fingerstick) 473 mg/dL (70-99) Results All relevant outside records, renal labs, imaging studies, telemetry/EKG's were reviewed. Justicifation of Admission Dx: Justifications for Admission: Justification of Admission Dx: N/A REBECCA ANGLIN MD Nov 16, 2021 10:47
--- NOTE | 2021-11-16 11:06 | PDOC ---
STEPHEN DICKEY [employer] 11/16/21 1106: CARDIO Progress Notes Date and Time Date of Service 11/16/21 Time of Evaluation 1100 Subjective Subjective: No Chest Pain, No Palpitations, No Dizziness Vitals Vitals Vital Signs Date Time Temp Pulse Resp B/P (MAP) Pulse Ox O2 Delivery O2 Flow Rate FiO2 11/16/21 10:31 97.9 71 18 161/75 (103) 98 Nasal Cannula 4.0 97.9 Weight Weight [ ] Input and Output Intake and Output Intake and Output 11/16/21 07:00 Intake Total 1140 ml Output Total 700 ml Balance 440 ml Intake Oral 1140 ml Output Stool Total 700 ml # Bowel Movements 2 Laboratory Labs Laboratory Tests Test 11/15/21 16:56 11/15/21 20:17 11/16/21 03:55 11/16/21 08:47 Glucose (Fingerstick) 232 mg/dL (70-99) 190 mg/dL (70-99) 473 mg/dL (70-99) White Blood Count 7.2 x10^3/uL (4.0-11.0) Red Blood Count 4.97 x10^6/uL (4.30-5.70) Hemoglobin 14.9 g/dL (13.0-17.5) Hematocrit 46.5 % (39.0-53.0) Mean Corpuscular Volume 94 fL (79-100) Mean Corpuscular Hemoglobin 30 pg (25-35) Mean Corpuscular Hemoglobin Concent 32 g/dL (31-37) Red Cell Distribution Width 18.7 % (11.5-14.5) Platelet Count 82 x10^3/uL (140-400) Neutrophils (%) (Auto) 89 % (31-73) Lymphocytes (%) (Auto) 9 % (24-48) Monocytes (%) (Auto) 2 % (0-9) Eosinophils (%) (Auto) 0 % (0-3) Basophils (%) (Auto) 0 % (0-3) Neutrophils # (Auto) 6.4 x10^3/uL (1.8-7.7) Lymphocytes # (Auto) 0.6 x10^3/uL (1.0-4.8) Monocytes # (Auto) 0.2 x10^3/uL (0.0-1.1) Eosinophils # (Auto) 0.0 x10^3/uL (0.0-0.7) Basophils # (Auto) 0.0 x10^3/uL (0.0-0.2) Sodium Level 136 mmol/L (136-145) Potassium Level 4.6 mmol/L (3.5-5.1) Chloride Level 95 mmol/L (98-107) Carbon Dioxide Level 22 mmol/L (21-32) Anion Gap 19 (6-14) Blood Urea Nitrogen 56 mg/dL (8-26) Creatinine 4.5 mg/dL (0.7-1.3) Estimated GFR (Cockcroft-Gault) 13.5 Glucose Level 376 mg/dL (70-99) Calcium Level 8.2 mg/dL (8.5-10.1) Magnesium Level 2.6 mg/dL (1.8-2.4) Microbiology Micro Microbiology 11/14/21 Blood Culture - Final, Complete Physical Exam HEENT: Neck Supple W Full Motion Chest: Symmetric LUNGS: Other (on NC) Heart: RRR Extremities: Other (Right BKA and left AKA) Neurology: alert, oriented, follow commands Assessment Assessment 1. Acute on chronic hypoxic respiratory failure secondary to COVID PNA 2. Acute on chronic combined systolic and diastolic CHF secondary to missed HD. Echo 04/15 with LVEF 40 to 45%. 3. CAD s/p PCI/SCOTTY to LCx and RCA July 2018. Troponin level slightly elevated probably type II, demand ischemia. CP free. 4. 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 Hypertension: mildly elevated 6. Hyperlipidemia; statin 7. Diabetes, II 8. ESRD on HD 9. Bacteremia; BC with GPC 2/4 bottles Recommendations Fluid offloading via HD Resume secondary prevention and home antiHTN therapy Outpatient ischemic evaluation Ongoing pulmonary optimization, treatment of COVID PNA Supportive care Justicifation of Admission Dx: Justifications for Admission: Justification of Admission Dx: N/A ASH VALERIO MD 11/16/212126: CARDIO Progress Notes Plan Plan The patient was seen and interviewed as well as examined at the bedside. The chart was reviewed. The case was discussed. Agree with the plan of care. STEPHEN DICKEY APRN Nov 16, 2021 11:06 ASH VALERIO MD Nov 16, 2021 21:27
--- NOTE | 2021-11-16 13:19 | PDOC ---
[facility] PROGRESS NOTE Date of Service DOS: DATE: 11/16/21 TIME: 13:16 Chief Complaint Chief Complaint Assessment/Plan Acute hypoxic respiratory failure secondary to Covid pneumonia COVID-19 infection Acute electrolyte derangement consistent with ESRD Anemia of ESRD left [id number] amputation for Diabetic foot ulcer on left leg with dry gangrene end-stage renal disease on HD via RUE access Severe peripheral vascular disease, prior right BKA, , diabetes, hypertension, hyperlipidemia, depression, anxiety. weight loss, Chronic pain, Osteoarthritis, LE edema, hypothyroidism. hx of falls, left hip fracture --> left total hip arthroplasty. meet-umbilical subcutaneous bruising - CT abdomen/pelvis to r/o intraabdominal hemorrhage/pancreatitis 09/01/21 anemia on ESRD previous smoker hx of poor compliance noted Admit to medicine for further management Pulmonology consult Continue IV thiamine and vitamin C IV Solu-Medrol every 8 hours IV Remdesivir if patient requires O2 supplementation beyond there baseline Pending ferritin, LDH, CRP, D-dimer labs Titrate O2 supplementation to maintain O2 saturation greater than 92% Empiric IV antibiotics if patient has clinical presentation for bacterial pneumonia Heparin for DVT prophylaxis Protonix while on steroids GI prophylaxis ADA diet Full code Discussed with RN and SW Disposition inpatient management as above Surrogate decision maker is the History of Present Illness History of Present Illness 61-year-old male past medical history of hypothyroidism, diabetes, hypertension, hyperlipidemia, hypothyroidism, COPD on 4 L nasal cannula and ESRD (MWF, anuric), presents to the ED brought in by EMS from home with complaints of shortness of breath stating this feels like his typical fluid overload. Patient missed his hemodialysis today due to a follow-up appointment regarding history of right broken shoulder. Reports no medications were changed. Patient arrives 93% on 10 L nonrebreather, s/p 1 duoneb. Takes 4 duo nebs daily and 1 qhs. Has received his Covid vaccine x2 but has not been boostered. Meds reviewed-takes lasix 80mg bid. Has petechia and bruising to right cheek, anterior neck and posterior occiput-when asked if he fell he states "I don't know." Pt is alert and oriented but not fully cooperative which limits history (I suspect due to his work of breathing). 11/15/2021 No acute events overnight. Patient seen examined bedside. Patient does not believe that he has Covid infection. We will continue dialysis. Patient requiring 10 L oxygen and saturating 98%. We will continue with Covid protocol treatment 11/16/2021 No acute events overnight. Patient seen examined bedside. I have ordered PT OT for evaluation for placement. Patient does wear about 3 to 5 L of oxygen at home. 6-minute walk test before discharge. Patient's chart, labs, images were reviewed and discussed with RN Vitals/I&O Vitals/I&O: Vital Signs Date Time Temp Pulse Resp B/P (MAP) Pulse Ox O2 Delivery O2 Flow Rate FiO2 11/16/21 10:31 97.9 71 18 161/75 (103) 98 Nasal Cannula 4.0 97.9 I & O 11/15/21 11/15/21 11/16/21 15:00 23:00 07:00 Intake Total 500 ml 440 ml 200 ml Output Total 500 ml 200 ml Balance 0 ml 240 ml 200 ml Physical Exam General: Alert, No acute distress Heart: Regular rate Lungs: Clear Abdomen: Soft Extremities: Other (Right BKA and left AKA) Labs Labs: Laboratory Tests Test 11/15/21 16:56 11/15/21 20:17 11/16/21 03:55 11/16/21 08:47 Glucose (Fingerstick) 232 mg/dL (70-99) 190 mg/dL (70-99) 473 mg/dL (70-99) White Blood Count 7.2 x10^3/uL (4.0-11.0) Red Blood Count 4.97 x10^6/uL (4.30-5.70) Hemoglobin 14.9 g/dL (13.0-17.5) Hematocrit 46.5 % (39.0-53.0) Mean Corpuscular Volume 94 fL (79-100) Mean Corpuscular Hemoglobin 30 pg (25-35) Mean Corpuscular Hemoglobin Concent 32 g/dL (31-37) Red Cell Distribution Width 18.7 % (11.5-14.5) Platelet Count 82 x10^3/uL (140-400) Neutrophils (%) (Auto) 89 % (31-73) Lymphocytes (%) (Auto) 9 % (24-48) Monocytes (%) (Auto) 2 % (0-9) Eosinophils (%) (Auto) 0 % (0-3) Basophils (%) (Auto) 0 % (0-3) Neutrophils # (Auto) 6.4 x10^3/uL (1.8-7.7) Lymphocytes # (Auto) 0.6 x10^3/uL (1.0-4.8) Monocytes # (Auto) 0.2 x10^3/uL (0.0-1.1) Eosinophils # (Auto) 0.0 x10^3/uL (0.0-0.7) Basophils # (Auto) 0.0 x10^3/uL (0.0-0.2) Sodium Level 136 mmol/L (136-145) Potassium Level 4.6 mmol/L (3.5-5.1) Chloride Level 95 mmol/L (98-107) Carbon Dioxide Level 22 mmol/L (21-32) Anion Gap 19 (6-14) Blood Urea Nitrogen 56 mg/dL (8-26) Creatinine 4.5 mg/dL (0.7-1.3) Estimated GFR (Cockcroft-Gault) 13.5 Glucose Level 376 mg/dL (70-99) Calcium Level 8.2 mg/dL (8.5-10.1) Magnesium Level 2.6 mg/dL (1.8-2.4) Test 11/16/21 11:31 Glucose (Fingerstick) 534 mg/dL (70-99) Assessment and Plan Assessmemt and Plan Problems Medical Problems: (1) Acute respiratory failure with hypoxia Status: Acute (2) COVID-19 Status: Acute (3) NSTEMI (non-ST elevated myocardial infarction) Status: Acute Comment Review of Relevant I have reviewed the following items yesenia (where applicable) has been applied. Medications: Current Medications Medications (Trade) Dose Ordered Sig/Celi Route PRN Reason Start Time Stop Time Status Last Admin Dose Admin Insulin Glargine (Lantus Syringe) 10 unit Q12HR SQ 11/15/21 21:00 11/16/21 08:44 Insulin Human Lispro (HumaLOG) 0-7 UNITS TIDWMEALS SQ 11/15/21 17:00 11/16/21 11:34 Vancomycin HCl 1 gm/Sodium Chloride 250 ml @ 250 mls/hr 1X ONCE IV 11/16/21 09:30 11/16/21 10:29 DC 11/16/21 09:16 Justifications for Admission Other Justification COVID-19 positive test (U07.1, COVID-19) with Acute Pneumonia (J12.89, Other viral pneumonia) (If respiratory failure or sepsis present, add as separate assessment) ESRD, fluid overload PAWEL GARCÍA MD Nov 16, 2021 13:19
[2021-11-16] MEDS: VANCOMYCIN PER PHARMACY MC PRN (14:42)
--- NOTE | 2021-11-16 14:42 | NUR ---
Pharmacy Vancomycin Dosing Note S:Consulted to monitor and dose vancomycin started 11/16/21. O:SEBASTIAN ANGULO is a 61 year old M with bacteremia. Height: 5 feet, 9 inches Weight: 42.8 kg Dosing Weight: Actual Other Antibiotics: AZITHROMYCIN 500 MG IV Q24HRS CEFTRIAXONE 1G IV Q24HRS LABS: Last BUN: 56 Last Creatinine: 4.5 Creatinine Clearance: ESRD on HD Last WBC: 7.2 Last Procalcitonin: > 125 Microbiology: BLOOD CX: STAPH EPI I/O: 1140/70 A: Patient requires vancomycin for bacteremia, goal trough 15-20 mcg/ml. Patient is ERSD MWF. He received vancomycin 1000 mg x 1 dose today prior to HD session. P: 1. Received Vancomycin 1000 mg IV x 1 dose prior to HD session. 2. Follow up post-HD random level on 11/17/21 at 0600 3. Pharmacy will continue to monitor, follow and adjust therapy as needed. ESTEFANY SORIANO [facility], 11/16/21 [id number]
[2021-11-16] MEDS ORDERED: INSULIN GLARGINE SYRINGE. SQ SCH (15:30)
[2021-11-16] MEDS: FUROSEMIDE 80 MG TABLET. PO SCH (16:30)
[2021-11-16] MEDS: LISINOPRIL 20 MG TABLET PO SCH (16:30)
[2021-11-16] MEDS: ASPIRIN CHEWABLE 81 MG TABLET. PO SCH (16:31)
[2021-11-16 19:45] VITALS: BP 166/80
[2021-11-16] MEDS: AZITHROMYCIN 500 MG in IV NORMAL SALINE 250ML 250 ML IV SCH (20:46)
[2021-11-16] MEDS: ATORVASTATIN CALCIUM 10 MG TABLET. PO SCH (20:48)
[2021-11-16 23:20] VITALS: BP 174/81
[2021-11-17 02:45] VITALS: BP 183/76
[2021-11-17] MEDS: methylPREDNISolone SOD SUCC PF 40 MG/ML VIAL. IV SCH ×3 (05:55→20:14)
[2021-11-17] MEDS: LEVOTHYROXINE 175 MCG TABLET PO SCH (05:55)
[2021-11-17] MEDS ORDERED: VANCOMYCIN RANDOM LEVEL. MC ONE (06:00)
[2021-11-17 07:55] VITALS: BP 164/75
[2021-11-17] MEDS: INSULIN LISPRO 300 UNITS/3 ML VIAL. SQ SCH ×3 (08:00→17:56)
[2021-11-17 08:16] LABS: BASO % 0 % (0-3); EOS % 0 % (0-3); HEMATOCRIT 43.8 % (39.0-53.0); HEMOGLOBIN 14.2 g/dL (13.0-17.5); LYMPH # 0.7 x10^3/uL (1.0-4.8); LYMPH % 6 % (24-48); MEAN CORPUSCULAR HEMOGLOBIN 29 pg (25-35); MEAN CORPUSCULAR HGB CONC 32 g/dL (31-37); MEAN CORPUSCULAR VOLUME 91 fL (79-100); MONO # 0.2 x10^3/uL (0.0-1.1); MONO % 2 % (0-9); NEUT # 11.3 x10^3/uL (1.8-7.7); NEUT % 92 % (31-73); PLATELET COUNT 97 x10^3/uL (140-400); RED BLOOD COUNT 4.82 x10^6/uL (4.30-5.70); RED CELL DISTRIBUTION WIDTH 18.8 % (11.5-14.5); WHITE BLOOD COUNT 12.3 x10^3/uL (4.0-11.0)
[2021-11-17 08:35] LABS: CALCIUM 8.4 mg/dL (8.5-10.1); CREATININE 2.7 mg/dL (0.7-1.3); GFR 24.3; MAGNESIUM 2.5 mg/dL (1.8-2.4); POTASSIUM 4.5 mmol/L (3.5-5.1)
[2021-11-17] MEDS: ASCORBIC ACID 1,000 MG TABLET PO SCH ×5 (09:00→20:54)
[2021-11-17] MEDS: INSULIN GLARGINE SYRINGE. SQ SCH ×2 (09:00→20:27)
[2021-11-17] MEDS: VANCOMYCIN PER PHARMACY MC PRN (09:19)
[2021-11-17] MEDS: LACTOBACILLUS RHAMNOSUS GG 1 CAPSULE. PO SCH ×2 (09:21→20:13)
[2021-11-17] MEDS: ZINC SULFATE 220 MG CAPSULE. PO SCH (09:22)
[2021-11-17] MEDS: ASPIRIN CHEWABLE 81 MG TABLET. PO SCH (09:22)
[2021-11-17] MEDS: THIAMINE 100 MG TABLET. PO SCH (09:22)
[2021-11-17] MEDS: FUROSEMIDE 80 MG TABLET. PO SCH ×2 (09:22→15:39)
[2021-11-17] MEDS: cefTRIAXone IV Push 1 GM VIAL. IVP SCH (09:23)
[2021-11-17] MEDS: LISINOPRIL 20 MG TABLET PO SCH (09:23)
[2021-11-17] MEDS: HEPARIN for SUB-Q USE 5,000 UNIT/ML VIAL. SQ SCH ×2 (09:24→20:14)
--- NOTE | 2021-11-17 09:34 | NUR ---
Pharmacy Vancomycin Dosing Note S: Consulted to monitor and dose vancomycin started 11/16/21. O: SEBASTIAN ANGULO is a 61 year old M with Cellulitis, Bacteremia Other Antibiotics: AZITHROMYCIN 500 MG IV Q24HRS CEFTRIAXONE 1G IV Q24HRS LABS: Last BUN: 56 Last Creatinine: 4.5 Creatinine Clearance: ESRD on HD Last WBC: 7.2 Last Procalcitonin: > 125 (renal failure patient) Tmax (past 24 hours): 98.1 Microbiology: Blood: staph epi I/O: 800/- Drug Levels: Last Random level: 12.6 on 11/17/21 at 0755 Last dose given 11/16/21 at 1000 Vancomycin Dosing: Dosing Weight: Actual Target Trough: 15-20 A: Based on: random level P: 1. Begin Vancomycin 500 mg IV MWF 2. Follow up Random level to be ordered as needed 3. Pharmacy will continue to monitor, follow and adjust therapy as needed. Aleida Allen RPH, 11/17/21 [id number]
--- NOTE | 2021-11-17 11:04 | PDOC ---
DATE OF SERVICE DATE: 11/17/21 TIME: 11:04 SUBJECTIVE ROS Increased O2 requirement at presentation Currently some improvent in O2 requirement . No other complaints OBJECTIVE Vital Signs Vital Signs Date Time Temp Pulse Resp B/P (MAP) Pulse Ox O2 Delivery O2 Flow Rate FiO2 11/17/21 09:23 65 164/75 11/17/21 08:00 Nasal Cannula 4.0 11/17/21 07:55 97.5 18 100 97.5 I & 0 Intake and Output 11/17/21 07:00 Intake Total 800 ml Balance 800 ml Intake Oral 550 ml IV Total 250 ml PHYSICAL EXAM Physical Exam GEN: Awake, Oriented x [], In [] distress EYES: Vision Unchanged, Conjunctiva Normal EN: No EN Drainage, Mucous Membranes [] NECK: [] JVD, [] JVP, Supple, [] Thyromegaly CVS: S1S2, [] Murmur, No Gallop, No Rub,[] Edema RESP: [] Rales, [] Rhonchi,[] Acc. Muscle Use GI: BS + ve, NO Bruit, Non Tender, Non Distended : [] CVA tenderness, [] Suprapubic Tenderness DIAGNOSIS/ASSESSMENT Assessment & Plan ESRD/ARF: Current fluid and E-lyte status does not necessitate emergent need for dialysis. Will re-evaluate for dialysis in the am and continue on [] schedule. ANEMIA; [] Aranap as ordered, [] Transfuse [] with next HD as needed HTN: Current BP meds as reviewed. See orders for changes. BONE & MINERAL: [] Discussed Plan of Care with family [] at bedside [] over the phone COMMENT/RELEVANT DATA Meds Current Medications Medications (Trade) Dose Ordered Sig/Celi Start Time Stop Time Status Last Admin Dose Admin Acetaminophen (Tylenol) 650 mg PRN Q4HRS PRN 11/14/21 09:30 Albumin Human 200 ml @ 200 mls/hr 1X PRN PRN 11/14/21 11:15 11/14/21 17:14 DC Amlodipine Besylate (Norvasc) 10 mg DAILY 11/16/21 16:00 11/17/21 09:22 10 MG Ascorbic Acid (Vitamin C) 3,000 mg TID 11/14/21 14:00 11/16/21 20:46 3,000 MG Aspirin (Aspirin Chewable) 81 mg DAILYWBKFT 2/21/22 16:00 11/17/21 09:22 81 MG Atorvastatin Calcium (Lipitor) 10 mg HS 11/16/21 21:00 11/16/21 20:48 10 MG Azithromycin (Zithromax) 500 mg 1X ONCE 11/14/21 01:00 11/14/21 01:01 DC 11/14/21 01:00 500 MG Azithromycin 500 mg/Sodium Chloride 250 ml @ 250 mls/hr Q24H 11/14/21 21:00 11/17/21 21:59 11/16/21 20:46 250 MLS/HR Ceftriaxone Sodium (Rocephin) 1 gm DAILY 11/14/21 09:30 11/20/21 09:01 11/17/21 09:23 1 GM Dextrose (Dextrose 50%-Water Syringe) 12.5 gm PRN Q15MIN PRN 11/14/21 09:30 Diphenhydramine HCl (Benadryl) 25 mg PRN QHS PRN 11/14/21 09:30 Docusate Sodium (Colace) 100 mg PRN DAILY PRN 11/14/21 09:30 Furosemide (Lasix) 80 mg BID92 11/16/21 16:00 11/17/21 09:22 80 MG Heparin Sodium (Porcine) (Heparin Sodium) 5,000 unit Q12HR 11/14/21 21:00 11/17/21 09:24 5,000 UNIT Info (CONTRAST GIVEN -- Rx MONITORING) 1 each PRN DAILY PRN 11/13/21 23:45 11/15/21 23:44 DC Info (PHARMACY MONITORING -- do not chart) 1 each PRN DAILY PRN 11/16/21 09:45 Insulin Glargine (Lantus Syringe) 20 unit Q12HR 11/16/21 21:00 11/16/21 20:43 20 UNIT Insulin Human Lispro (HumaLOG) 0-7 UNITS TIDWMEALS 11/15/21 17:00 11/16/21 16:31 3 UNITS Iohexol (Omnipaque 350 Mg/ml) 90 ml 1X ONCE 11/14/21 00:00 11/14/21 00:01 DC 11/14/21 00:13 90 ML Lactobacillus Rhamnosus (Culturelle) 1 cap BID 11/15/21 12:00 11/17/21 09:21 1 CAP Levothyroxine Sodium (Synthroid) 175 mcg DAILY06 11/17/21 06:00 11/17/21 05:55 175 MCG Lidocaine HCl (Xylocaine-Mpf 1% 2ml Vial) 2 ml 1X PRN PRN 11/14/21 11:15 11/14/21 19:00 DC Lisinopril (Prinivil) 20 mg DAILY 11/16/21 16:00 11/17/21 09:23 20 MG Lorazepam (Ativan Inj) 0.25 mg PRN Q4HRS PRN 11/14/21 09:30 Lorazepam (Ativan) 0.5 mg PRN Q6HRS PRN 11/14/21 09:30 Methylprednisolone Sodium Succinate (SOLU-Medrol 40MG VIAL) 40 mg Q8HRS 11/14/21 14:00 11/17/21 05:55 40 MG Ondansetron HCl (Zofran) 4 mg PRN Q6HRS PRN 11/14/21 09:30 Prochlorperazine Edisylate (Compazine) 10 mg PRN Q6HRS PRN 11/14/21 09:30 Sennosides (Senna) 17.2 mg PRN BID PRN 11/14/21 09:30 Sodium Chloride 1,000 ml @ 400 mls/hr Q2H30M PRN 11/16/21 09:45 11/16/21 21:44 DC Thiamine Mononitrate (Vitamin B-1) 300 mg DAILY 11/15/21 09:00 11/17/21 09:22 300 MG Vancomycin HCl (Vanco Per Pharmacy) 1 each PRN DAILY PRN 11/16/21 09:00 11/17/21 09:19 1 EACH Vancomycin HCl (Vancomycin Random Level) 1 each 1X ONCE 11/17/21 06:00 11/17/21 06:01 DC Vancomycin HCl 500 mg/Sodium Chloride 100 ml @ 100 mls/hr QMWF 11/18/21 16:00 Vancomycin HCl 1 gm/Sodium Chloride 250 ml @ 250 mls/hr 1X ONCE 11/16/21 09:30 11/16/21 10:29 DC 11/16/21 09:16 250 MLS/HR Zinc Sulfate (Orazinc) 220 mg DAILY 11/15/21 09:00 11/17/21 09:22 220 MG Zolpidem Tartrate (Ambien) 2.5 mg PRN QHS PRN 11/14/21 09:30 Lab Laboratory Tests Test 11/16/21 11:31 11/16/21 16:28 11/16/21 21:15 11/16/21 22:15 Glucose (Fingerstick) 534 mg/dL (70-99) 187 mg/dL (70-99) 77 mg/dL (70-99) 95 mg/dL (70-99) Test 11/17/21 07:55 11/17/21 08:21 White Blood Count 12.3 x10^3/uL (4.0-11.0) Red Blood Count 4.82 x10^6/uL (4.30-5.70) Hemoglobin 14.2 g/dL (13.0-17.5) Hematocrit 43.8 % (39.0-53.0) Mean Corpuscular Volume 91 fL (79-100) Mean Corpuscular Hemoglobin 29 pg (25-35) Mean Corpuscular Hemoglobin Concent 32 g/dL (31-37) Red Cell Distribution Width 18.8 % (11.5-14.5) Platelet Count 97 x10^3/uL (140-400) Neutrophils (%) (Auto) 92 % (31-73) Lymphocytes (%) (Auto) 6 % (24-48) Monocytes (%) (Auto) 2 % (0-9) Eosinophils (%) (Auto) 0 % (0-3) Basophils (%) (Auto) 0 % (0-3) Neutrophils # (Auto) 11.3 x10^3/uL (1.8-7.7) Lymphocytes # (Auto) 0.7 x10^3/uL (1.0-4.8) Monocytes # (Auto) 0.2 x10^3/uL (0.0-1.1) Eosinophils # (Auto) 0.0 x10^3/uL (0.0-0.7) Basophils # (Auto) 0.0 x10^3/uL (0.0-0.2) Sodium Level 134 mmol/L (136-145) Potassium Level 4.5 mmol/L (3.5-5.1) Chloride Level 98 mmol/L (98-107) Carbon Dioxide Level 27 mmol/L (21-32) Anion Gap 9 (6-14) Blood Urea Nitrogen 36 mg/dL (8-26) Creatinine 2.7 mg/dL (0.7-1.3) Estimated GFR (Cockcroft-Gault) 24.3 Glucose Level 80 mg/dL (70-99) Calcium Level 8.4 mg/dL (8.5-10.1) Magnesium Level 2.5 mg/dL (1.8-2.4) Random Vancomycin Level 12.6 mcg/mL Glucose (Fingerstick) 77 mg/dL (70-99) Results All relevant outside records, renal labs, imaging studies, telemetry/EKG's were reviewed. Justicifation of Admission Dx: Justifications for Admission: Justification of Admission Dx: N/A REBECCA ANGLIN MD Nov 17, 2021 11:04
[2021-11-17 11:09] VITALS: BP 176/82
--- NOTE | 2021-11-17 11:57 | PDOC ---
DATE OF SERVICE DATE: 11/17/21 TIME: 11:55 SUBJECTIVE ROS stable, No concerns voiced by nursing OBJECTIVE Vital Signs Vital Signs Date Time Temp Pulse Resp B/P (MAP) Pulse Ox O2 Delivery O2 Flow Rate FiO2 11/17/21 11:09 97.9 62 18 176/82 (113) 98 Nasal Cannula 4.0 97.9 I & 0 Intake and Output 11/17/21 07:00 Intake Total 800 ml Balance 800 ml Intake Oral 550 ml IV Total 250 ml PHYSICAL EXAM Physical Exam GENERAL: NAD HEENT: OM moist , On Chronic home O2, Increased currently NECK: Supple. LUNGS: non labored HEART: S1, S2. ABDOMEN: Soft, nontender. EXTREMITIES: AVG Rt ; Rt BKA SKIN : No generalized rash, no enriquez DIAGNOSIS/ASSESSMENT Assessment & Plan ESRD - On HD MWF @ [facility] under Dr. Scanlon Currently no indication for dialysis today Access - Rt arm AVF -- s/p Fistulogram 06/23/21- Moderate stenoses at the junction of the previously stented cephalic vein and subclavian vein, as well as the subclavian vein in the right innominate vein treated with balloon angioplasty with improvement morphology and flow. Anemia Hgb stable, required PRBC in the past . Currently No indication for FABIAN Acute hypoxic respiratory failure secondary to Covid pneumonia COVID-19 infection DM primary managing. Episodes of Hypoglycemia in the past Hypertension BP stable Hx of Right heel wound, - s/p Irrigation debridement of right heel ulcer skin subcutaneous tissue and removal of right great toenail. S/P right below-knee amputation and left heel and great toe debridement on 06/19 history Acute Lt Femoral neck displaced fracture s/p Lt Hip Repair COPD with home O2 dependency COMMENT/RELEVANT DATA Meds Current Medications Medications (Trade) Dose Ordered Sig/Celi Start Time Stop Time Status Last Admin Dose Admin Acetaminophen (Tylenol) 650 mg PRN Q4HRS PRN 11/14/21 09:30 Albumin Human 200 ml @ 200 mls/hr 1X PRN PRN 11/14/21 11:15 11/14/21 17:14 DC Amlodipine Besylate (Norvasc) 10 mg DAILY 11/16/21 16:00 11/17/21 09:22 10 MG Ascorbic Acid (Vitamin C) 3,000 mg TID 11/14/21 14:00 11/16/21 20:46 3,000 MG Aspirin (Aspirin Chewable) 81 mg DAILYWBKFT 11/16/21 16:00 11/17/21 09:22 81 MG Atorvastatin Calcium (Lipitor) 10 mg HS 11/16/21 21:00 11/16/21 20:48 10 MG Azithromycin (Zithromax) 500 mg 1X ONCE 11/14/21 01:00 11/14/21 01:01 DC 11/14/21 01:00 500 MG Azithromycin 500 mg/Sodium Chloride 250 ml @ 250 mls/hr Q24H 11/14/21 21:00 11/17/21 21:59 11/16/21 20:46 250 MLS/HR Ceftriaxone Sodium (Rocephin) 1 gm DAILY 11/14/21 09:30 11/20/21 09:01 11/17/21 09:23 1 GM Dextrose (Dextrose 50%-Water Syringe) 12.5 gm PRN Q15MIN PRN 11/14/21 09:30 Diphenhydramine HCl (Benadryl) 25 mg PRN QHS PRN 11/14/21 09:30 Docusate Sodium (Colace) 100 mg PRN DAILY PRN 11/14/21 09:30 Furosemide (Lasix) 80 mg BID92 11/16/21 16:00 11/17/21 09:22 80 MG Heparin Sodium (Porcine) (Heparin Sodium) 5,000 unit Q12HR 11/14/21 21:00 11/17/21 09:24 5,000 UNIT Info (CONTRAST GIVEN -- Rx MONITORING) 1 each PRN DAILY PRN 11/13/21 23:45 11/15/21 23:44 DC Info (PHARMACY MONITORING -- do not chart) 1 each PRN DAILY PRN 11/16/21 09:45 Insulin Glargine (Lantus Syringe) 20 unit Q12HR 11/16/21 21:00 11/16/21 20:43 20 UNIT Insulin Human Lispro (HumaLOG) 0-7 UNITS TIDWMEALS 11/15/21 17:00 11/16/21 16:31 3 UNITS Iohexol (Omnipaque 350 Mg/ml) 90 ml 1X ONCE 11/14/21 00:00 11/14/21 00:01 DC 11/14/21 00:13 90 ML Lactobacillus Rhamnosus (Culturelle) 1 cap BID 11/15/21 12:00 11/17/21 09:21 1 CAP Levothyroxine Sodium (Synthroid) 175 mcg DAILY06 11/17/21 06:00 11/17/21 05:55 175 MCG Lidocaine HCl (Xylocaine-Mpf 1% 2ml Vial) 2 ml 1X PRN PRN 11/14/21 11:15 11/14/21 19:00 DC Lisinopril (Prinivil) 20 mg DAILY 11/16/21 16:00 11/17/21 09:23 20 MG Lorazepam (Ativan Inj) 0.25 mg PRN Q4HRS PRN 11/14/21 09:30 Lorazepam (Ativan) 0.5 mg PRN Q6HRS PRN 11/14/21 09:30 Methylprednisolone Sodium Succinate (SOLU-Medrol 40MG VIAL) 40 mg Q8HRS 11/14/21 14:00 11/17/21 05:55 40 MG Ondansetron HCl (Zofran) 4 mg PRN Q6HRS PRN 11/14/21 09:30 Prochlorperazine Edisylate (Compazine) 10 mg PRN Q6HRS PRN 11/14/21 09:30 Sennosides (Senna) 17.2 mg PRN BID PRN 11/14/21 09:30 Sodium Chloride 1,000 ml @ 400 mls/hr Q2H30M PRN 11/16/21 09:45 11/16/21 21:44 DC Thiamine Mononitrate (Vitamin B-1) 300 mg DAILY 11/15/21 09:00 11/17/21 09:22 300 MG Vancomycin HCl (Vanco Per Pharmacy) 1 each PRN DAILY PRN 11/16/21 09:00 11/17/21 09:19 1 EACH Vancomycin HCl (Vancomycin Random Level) 1 each 1X ONCE 11/17/21 06:00 11/17/21 06:01 DC Vancomycin HCl 500 mg/Sodium Chloride 100 ml @ 100 mls/hr QMWF 11/18/21 16:00 Vancomycin HCl 1 gm/Sodium Chloride 250 ml @ 250 mls/hr 1X ONCE 11/16/21 09:30 11/16/21 10:29 DC 11/16/21 09:16 250 MLS/HR Zinc Sulfate (Orazinc) 220 mg DAILY 11/15/21 09:00 11/17/21 09:22 220 MG Zolpidem Tartrate (Ambien) 2.5 mg PRN QHS PRN 11/14/21 09:30 Lab Laboratory Tests Test 11/16/21 16:28 11/16/21 21:15 11/16/21 22:15 11/17/21 07:55 Glucose (Fingerstick) 187 mg/dL (70-99) 77 mg/dL (70-99) 95 mg/dL (70-99) White Blood Count 12.3 x10^3/uL (4.0-11.0) Red Blood Count 4.82 x10^6/uL (4.30-5.70) Hemoglobin 14.2 g/dL (13.0-17.5) Hematocrit 43.8 % (39.0-53.0) Mean Corpuscular Volume 91 fL (79-100) Mean Corpuscular Hemoglobin 29 pg (25-35) Mean Corpuscular Hemoglobin Concent 32 g/dL (31-37) Red Cell Distribution Width 18.8 % (11.5-14.5) Platelet Count 97 x10^3/uL (140-400) Neutrophils (%) (Auto) 92 % (31-73) Lymphocytes (%) (Auto) 6 % (24-48) Monocytes (%) (Auto) 2 % (0-9) Eosinophils (%) (Auto) 0 % (0-3) Basophils (%) (Auto) 0 % (0-3) Neutrophils # (Auto) 11.3 x10^3/uL (1.8-7.7) Lymphocytes # (Auto) 0.7 x10^3/uL (1.0-4.8) Monocytes # (Auto) 0.2 x10^3/uL (0.0-1.1) Eosinophils # (Auto) 0.0 x10^3/uL (0.0-0.7) Basophils # (Auto) 0.0 x10^3/uL (0.0-0.2) Sodium Level 134 mmol/L (136-145) Potassium Level 4.5 mmol/L (3.5-5.1) Chloride Level 98 mmol/L (98-107) Carbon Dioxide Level 27 mmol/L (21-32) Anion Gap 9 (6-14) Blood Urea Nitrogen 36 mg/dL (8-26) Creatinine 2.7 mg/dL (0.7-1.3) Estimated GFR (Cockcroft-Gault) 24.3 Glucose Level 80 mg/dL (70-99) Calcium Level 8.4 mg/dL (8.5-10.1) Magnesium Level 2.5 mg/dL (1.8-2.4) Random Vancomycin Level 12.6 mcg/mL Test 11/17/21 08:21 Glucose (Fingerstick) 77 mg/dL (70-99) Results All relevant outside records, renal labs, imaging studies, telemetry/EKG's were reviewed. Justicifation of Admission Dx: Justifications for Admission: Justification of Admission Dx: N/A REBECCA ANGLIN MD Nov 17, 2021 11:57
[2021-11-17] MEDS ORDERED: PRED20TA PO (13:48)
[2021-11-17] MEDS ORDERED: AMOX1TAB58 PO (13:50)
--- NOTE | 2021-11-17 13:53 | SNU/HH DC ---
DISCHARGE WITH HOME HEALTH DISCHARGE INFORMATION: Discharge Date: Nov 17, 2021 Final Diagnosis: Problems Medical Problems: (1) Acute respiratory failure with hypoxia Status: Acute (2) COVID-19 Status: Acute (3) NSTEMI (non-ST elevated myocardial infarction) Status: Acute Condition on Discharge: Stable HOME HEALTH: Face to Face: I certify this patient is under my care and that I, or a nurse practitioner or physician's sound assistant working with me, had a face to face encounter that meets the physician face to face encounter requirements with this patient on []. Medical Complications: Falls, Pneumonia Senior Living For: Medication Management RN For Eval/Treatment: Yes Physical Therapy For: Evalulation/Treatment Occupational Therapy For: Evaluation/Treatment Pt Meets Homebound Status: Poor coordination w/ amb., Extreme weakness w/ amb., Limited distance walking, Unable to negotiate home POST DISCHARGE ORDERS: Activity Instructions for Disc: Activity as tolerated Weight Bearing Status after Di: Non weight bearing Bathing Instructions: Shower-keep dressing dry DIET AFTER DISCHARGE: Renal Wound/Incision Care: Ice to area for comfort, Keep wound/cast CDI, Do not change dressing CHECKS AFTER DISCHARGE: Checks after discharge: Check blood press - daily, Check blood sugar, ac/hs, Check your Temp as needed, Weigh Yourself Daily FOLLOW-UP: Follow up with: PCP within 2 weeks of discharge Follow Up With: Nephrology for your scheduled hemodialysis sessions DC TO SNF LABS: CBC, CMP TREATMENT/EQUIPMENT ORDERS: Adaptive Equipment Issued: None Discharge Respiratory Equipmen: Oxygen CERTIFICATION STATEMENT: Certification Statement: Certification Statement: Based on the above finding, I certify that this patient is confined to the home and needs intermittent group home care, physical therapy and/or speech therapy, or continues to need occupational therapy.~ This patient is under my care, and I have initiated the establishment of the plan of care.~ This patient will be followed by myself or a community physician who will periodically review the plan of care. Home Meds Active Scripts Amoxicillin/Potassium Clav (AUGMENTIN 500-125 TABLET) 1 Each Tablet, 1 TAB PO BID for pneumonia for 3 Days, #6 TAB 0 Refills Prov:PAWEL GARCÍA MD 11/17/21 Prednisone (PREDNISONE) 20 Mg Tablet, 1 TAB PO DAILY for prednisone taper, #5 TAB Prov:PAWEL GARCÍA MD 11/17/21 Hydrocodone/Acetaminophen (Hydrocodone-Acetamin 7.5-325) 1 Each Tablet, 1 EACH PO Q6H for pain for 7 Days, #28 TAB Prov:RENETTA CINTRON MD 08/04/21 Insulin Lispro (Admelog) 100 Unit/1 Ml Vial, 0-5 UNITS SQ QIDACHS for hyperglycemia for 30 Days, #1 VIAL Prov:JIN REYES MD 07/13/21 Ascorbic Acid (VITAMIN C) 500 Mg Tablet, 500 MG PO DAILY for SUPPLEMENT for 30 Days, #30 TAB Prov:PABLO SHERMAN MD 11/26/19 Folic Acid/Vitamin B Comp W-C (DORIE-CONSTANCE TABLET) 0.8 Mg Tablet, 1 TAB PO DAILY for SUPPLEMENT for 30 Days, #30 TAB Prov:PABLO SHERMAN MD 11/26/19 Budesonide (BUDESONIDE) 0.5 Mg/2 Ml Ampul.neb, 0.5 MG NEB RTBID for copd for 30 Days, #60 EACH Prov:PABLO SHERMAN MD 08/29/18 Aspirin (ASPIRIN) 81 Mg Tab.chew, 81 MG PO DAILYWBKFT for heart health for 30 Days, #30 TAB.CHEW Prov:PABLO SHERMAN MD 08/29/18 Ipratropium/Albuterol Sulfate (DUONEB 0.5-3(2.5) MG/3 ML) 3 Ml Ampul.neb, 3 ML NEB RTQID for copd for 30 Days, #120 EACH Prov:PABLO SHERMAN MD 08/29/18 Reported Medications Amlodipine Besylate (AMLODIPINE BESYLATE) 10 Mg Tablet, 10 MG PO DAILY for htn, TAB 11/14/21 Insulin Glargine,Hum.rec.anlog (LANTUS SOLOSTAR) 100 Unit/1 Ml Insuln.pen, 3 UNIT SQ QHS for n, #15 ML 3 Refills 08/28/21 Cholecalciferol (Vitamin D3) (Vitamin D3) 125 Mcg Tablet, 125 MCG PO DAILY for VITAMIN , TAB 08/27/21 Furosemide (FUROSEMIDE) 80 Mg Tablet, 1 TAB PO BID for watere retention, #30 TAB 5 Refills 08/13/21 Lisinopril (LISINOPRIL) 20 Mg Tablet, 1 TAB PO DAILY for high blood pressure, #30 TAB 5 Refills 08/13/21 Levothyroxine Sodium (LEVOTHYROXINE SODIUM) 100 Mcg Tablet, 175 MCG PO DAILYAC for THYROID SUPPLEMENT, #30 TAB 0 Refills 06/16/21 Atorvastatin Calcium (ATORVASTATIN CALCIUM) 10 Mg Tablet, 10 MG PO HS for FOR CHOLESTEROL, #30 TAB 0 Refills 05/29/21 [place]-3 Fatty Acids/Fish Oil (OMEGA 3 FISH OIL SOFTGEL) 1 Each Capsule.dr, 1 EACH PO DAILY for supplement, CAP 11/07/18 Calcium Acetate (CALCIUM ACETATE) 667 Mg Tablet, 667 MG PO TIDWMEALS for DIALYSIS PATIENTS, CAP 11/07/18 Acetaminophen (TYLENOL) 325 Mg Tablet, 650 MG PO PRN Q6HRS for mild pain, TAB 10/02/18 PAWEL GARCÍA MD Nov 17, 2021 13:53
--- NOTE | 2021-11-17 13:57 | PDOC ---
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 weight loss, Chronic pain, Osteoarthritis, LE edema, hypothyroidism. hx of falls, left hip fracture --> left total hip arthroplasty. meet-umbilical subcutaneous bruising - CT abdomen/pelvis to r/o intraabdominal hemorrhage/pancreatitis 09/01/21 anemia on ESRD previous smoker hx of poor compliance noted Admit to medicine for further management Pulmonology consult Continue IV thiamine and vitamin C IV Solu-Medrol every 8 hours IV Remdesivir if patient requires O2 supplementation beyond there baseline Pending ferritin, LDH, CRP, D-dimer labs Titrate O2 supplementation to maintain O2 saturation greater than 92% Empiric IV antibiotics if patient has clinical presentation for bacterial pneumonia Heparin for DVT prophylaxis Protonix while on steroids GI prophylaxis ADA diet Full code Discussed with RN and SW Disposition inpatient management as above Surrogate decision maker is the History of Present Illness History of Present Illness 61-year-old male past medical history of hypothyroidism, diabetes, hypertension, hyperlipidemia, hypothyroidism, COPD on 4 L nasal cannula and ESRD (MWF, anuric), presents to the ED brought in by EMS from home with complaints of shortness of breath stating this feels like his typical fluid overload. Patient missed his hemodialysis today due to a follow-up appointment regarding history of right broken shoulder. Reports no medications were changed. Patient arrives 93% on 10 L nonrebreather, s/p 1 duoneb. Takes 4 duo nebs daily and 1 qhs. Has received his Covid vaccine x2 but has not been boostered. Meds reviewed-takes lasix 80mg bid. Has petechia and bruising to right cheek, anterior neck and posterior occiput-when asked if he fell he states "I don't know." Pt is alert and oriented but not fully cooperative which limits history (I suspect due to his work of breathing). 11/15/2021 No acute events overnight. Patient seen examined bedside. Patient does not believe that he has Covid infection. We will continue dialysis. Patient requiring 10 L oxygen and saturating 98%. We will continue with Covid protocol treatment 11/16/2021 No acute events overnight. Patient seen examined bedside. I have ordered PT OT for evaluation for placement. Patient does wear about 3 to 5 L of oxygen at home. 6-minute walk test before discharge. Patient's chart, labs, images were reviewed and discussed with RN 11/17/2021 No acute events overnight. Patient seen examined bedside. Still pending PT OT evaluation. Patient does have home O2 set up are ready.. Patient's chart, labs, images were reviewed and discussed with RN Vitals/I&O Vitals/I&O: Vital Signs Date Time Temp Pulse Resp B/P (MAP) Pulse Ox O2 Delivery O2 Flow Rate FiO2 11/17/21 11:09 97.9 62 18 176/82 (113) 98 Nasal Cannula 4.0 97.9 I & O 11/16/21 11/16/21 11/17/21 15:00 23:00 07:00 Intake Total 750 ml 50 ml Balance 750 ml 50 ml Physical Exam General: Alert, No acute distress Heart: Regular rate Lungs: Clear Abdomen: Soft Extremities: Other (Right BKA and left AKA) Labs Labs: Laboratory Tests Test 11/16/21 16:28 11/16/21 21:15 11/16/21 22:15 11/17/21 07:55 Glucose (Fingerstick) 187 mg/dL (70-99) 77 mg/dL (70-99) 95 mg/dL (70-99) White Blood Count 12.3 x10^3/uL (4.0-11.0) Red Blood Count 4.82 x10^6/uL (4.30-5.70) Hemoglobin 14.2 g/dL (13.0-17.5) Hematocrit 43.8 % (39.0-53.0) Mean Corpuscular Volume 91 fL (79-100) Mean Corpuscular Hemoglobin 29 pg (25-35) Mean Corpuscular Hemoglobin Concent 32 g/dL (31-37) Red Cell Distribution Width 18.8 % (11.5-14.5) Platelet Count 97 x10^3/uL (140-400) Neutrophils (%) (Auto) 92 % (31-73) Lymphocytes (%) (Auto) 6 % (24-48) Monocytes (%) (Auto) 2 % (0-9) Eosinophils (%) (Auto) 0 % (0-3) Basophils (%) (Auto) 0 % (0-3) Neutrophils # (Auto) 11.3 x10^3/uL (1.8-7.7) Lymphocytes # (Auto) 0.7 x10^3/uL (1.0-4.8) Monocytes # (Auto) 0.2 x10^3/uL (0.0-1.1) Eosinophils # (Auto) 0.0 x10^3/uL (0.0-0.7) Basophils # (Auto) 0.0 x10^3/uL (0.0-0.2) Sodium Level 134 mmol/L (136-145) Potassium Level 4.5 mmol/L (3.5-5.1) Chloride Level 98 mmol/L (98-107) Carbon Dioxide Level 27 mmol/L (21-32) Anion Gap 9 (6-14) Blood Urea Nitrogen 36 mg/dL (8-26) Creatinine 2.7 mg/dL (0.7-1.3) Estimated GFR (Cockcroft-Gault) 24.3 Glucose Level 80 mg/dL (70-99) Calcium Level 8.4 mg/dL (8.5-10.1) Magnesium Level 2.5 mg/dL (1.8-2.4) Random Vancomycin Level 12.6 mcg/mL Test 11/17/21 08:21 11/17/21 12:07 Glucose (Fingerstick) 77 mg/dL (70-99) 104 mg/dL (70-99) Assessment and Plan Assessmemt and Plan Problems Medical Problems: (1) Acute respiratory failure with hypoxia Status: Acute (2) COVID-19 Status: Acute (3) NSTEMI (non-ST elevated myocardial infarction) Status: Acute Comment Review of Relevant I have reviewed the following items yesenia (where applicable) has been applied. Medications: Current Medications Medications (Trade) Dose Ordered Sig/Celi Route PRN Reason Start Time Stop Time Status Last Admin Dose Admin Insulin Glargine (Lantus Syringe) 20 unit Q12HR SQ 11/16/21 21:00 11/16/21 20:43 Amlodipine Besylate (Norvasc) 10 mg DAILY PO 11/16/21 16:00 11/17/21 09:22 Aspirin (Aspirin Chewable) 81 mg DAILYWBKFT PO 11/16/21 16:00 11/17/21 09:22 Atorvastatin Calcium (Lipitor) 10 mg HS PO 11/16/21 21:00 11/16/21 20:48 Furosemide (Lasix) 80 mg BID92 PO 11/16/21 16:00 11/17/21 09:22 Levothyroxine Sodium (Synthroid) 175 mcg DAILY06 PO 11/17/21 06:00 11/17/21 05:55 Lisinopril (Prinivil) 20 mg DAILY PO 11/16/21 16:00 11/17/21 09:23 Justifications for Admission Other Justification COVID-19 positive test (U07.1, COVID-19) with Acute Pneumonia (J12.89, Other viral pneumonia) (If respiratory failure or sepsis present, add as separate assessment) ESRD, fluid overload PAWEL GARCÍA MD Nov 17, 2021 13:57
--- NOTE | 2021-11-17 14:07 | PDOC ---
SETPHEN DICKEY CROWN PRESSER 11/17/21 1407: CARDIO Progress Notes Date and Time Date of Service 11/17/21 Time of Evaluation 1050 Subjective Subjective: No Chest Pain, No Palpitations, No Dizziness, Other (c/o cough) Vitals Vitals Vital Signs Date Time Temp Pulse Resp B/P (MAP) Pulse Ox O2 Delivery O2 Flow Rate FiO2 11/17/21 11:09 97.9 62 18 176/82 (113) 98 Nasal Cannula 4.0 97.9 Weight Weight [ ] Input and Output Intake and Output Intake and Output 11/17/21 07:00 Intake Total 800 ml Balance 800 ml Intake Oral 550 ml IV Total 250 ml Laboratory Labs Laboratory Tests Test 11/16/21 16:28 11/16/21 21:15 11/16/21 22:15 11/17/21 07:55 Glucose (Fingerstick) 187 mg/dL (70-99) 77 mg/dL (70-99) 95 mg/dL (70-99) White Blood Count 12.3 x10^3/uL (4.0-11.0) Red Blood Count 4.82 x10^6/uL (4.30-5.70) Hemoglobin 14.2 g/dL (13.0-17.5) Hematocrit 43.8 % (39.0-53.0) Mean Corpuscular Volume 91 fL (79-100) Mean Corpuscular Hemoglobin 29 pg (25-35) Mean Corpuscular Hemoglobin Concent 32 g/dL (31-37) Red Cell Distribution Width 18.8 % (11.5-14.5) Platelet Count 97 x10^3/uL (140-400) Neutrophils (%) (Auto) 92 % (31-73) Lymphocytes (%) (Auto) 6 % (24-48) Monocytes (%) (Auto) 2 % (0-9) Eosinophils (%) (Auto) 0 % (0-3) Basophils (%) (Auto) 0 % (0-3) Neutrophils # (Auto) 11.3 x10^3/uL (1.8-7.7) Lymphocytes # (Auto) 0.7 x10^3/uL (1.0-4.8) Monocytes # (Auto) 0.2 x10^3/uL (0.0-1.1) Eosinophils # (Auto) 0.0 x10^3/uL (0.0-0.7) Basophils # (Auto) 0.0 x10^3/uL (0.0-0.2) Sodium Level 134 mmol/L (136-145) Potassium Level 4.5 mmol/L (3.5-5.1) Chloride Level 98 mmol/L (98-107) Carbon Dioxide Level 27 mmol/L (21-32) Anion Gap 9 (6-14) Blood Urea Nitrogen 36 mg/dL (8-26) Creatinine 2.7 mg/dL (0.7-1.3) Estimated GFR (Cockcroft-Gault) 24.3 Glucose Level 80 mg/dL (70-99) Calcium Level 8.4 mg/dL (8.5-10.1) Magnesium Level 2.5 mg/dL (1.8-2.4) Random Vancomycin Level 12.6 mcg/mL Test 11/17/21 08:21 11/17/21 12:07 Glucose (Fingerstick) 77 mg/dL (70-99) 104 mg/dL (70-99) Microbiology Micro Microbiology 11/14/21 Blood Culture - Final, Complete Staphylococcus Epidermidis Physical Exam HEENT: Neck Supple W Full Motion Chest: Symmetric LUNGS: Other (on NC, rhonchi) Heart: RRR Extremities: Other (Right BKA and left AKA) Neurology: alert, oriented, follow commands Assessment Assessment 1. Acute on chronic hypoxic respiratory failure secondary to COVID PNA 2. Acute on chronic combined systolic and diastolic CHF secondary to missed HD. Echo 04/15 with LVEF 40 to 45%. 3. CAD s/p PCI/SCOTTY to LCx and RCA July 2018. Troponin level slightly elevated probably type II, demand ischemia. CP free. 4. 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 Hypertension: elevated 6. Hyperlipidemia; statin 7. Diabetes, II 8. ESRD on HD 9. Bacteremia; BC with GPC 2/4 bottles Recommendations Fluid offloading via HD Increase lisinopril for better BP control Secondary prevention Outpatient ischemic evaluation Ongoing pulmonary optimization, treatment of COVID PNA Supportive care Justicifation of Admission Dx: Justifications for Admission: Justification of Admission Dx: N/A ASH VALERIO MD 11/18/21 0730: CARDIO Progress Notes Plan Plan Late entry for 11/17/2021 The patient was seen and interviewed as well as examined at the bedside. The chart was reviewed. The case was discussed. Agree with the plan of care. Supportive care for now. No obvious arrhythmias on telemetry. STEPHEN DICKEY APRN Nov 17, 2021 14:07 ASH VALERIO MD Nov 18, 2021 07:30
[2021-11-17 14:28] VITALS: BP 160/79
[2021-11-17] MEDS ORDERED: LISINOPRIL 10 MG TABLET PO ONE (15:30)
[2021-11-17 19:50] VITALS: BP 164/82
[2021-11-17] MEDS: AZITHROMYCIN 500 MG in IV NORMAL SALINE 250ML 250 ML IV SCH (20:13)
[2021-11-17] MEDS: ATORVASTATIN CALCIUM 10 MG TABLET. PO SCH (20:13)
--- NOTE | 2021-11-17 20:55 | NUR ---
FSBS 222. Patient refusing Lantus Insulin tonight claiming 222 is too low. Also refusing to take Vit C tabs.
[2021-11-17 23:20] VITALS: BP 154/71
[2021-11-18 03:50] VITALS: BP 152/68
[2021-11-18] MEDS: LEVOTHYROXINE 175 MCG TABLET PO SCH (04:21)
[2021-11-18] MEDS: methylPREDNISolone SOD SUCC PF 40 MG/ML VIAL. IV SCH ×2 (04:21→13:14)
[2021-11-18 04:41] LABS: CALCIUM 8.2 mg/dL (8.5-10.1); CREATININE 3.4 mg/dL (0.7-1.3); GFR 18.6; POTASSIUM 3.9 mmol/L (3.5-5.1)
[2021-11-18 07:00] VITALS: BP 187/92
[2021-11-18] MEDS: VANCOMYCIN PER PHARMACY MC PRN (08:44)
[2021-11-18] MEDS: ASPIRIN CHEWABLE 81 MG TABLET. PO SCH (08:51)
[2021-11-18] MEDS: LACTOBACILLUS RHAMNOSUS GG 1 CAPSULE. PO SCH (08:51)
[2021-11-18] MEDS: THIAMINE 100 MG TABLET. PO SCH (08:51)
[2021-11-18] MEDS: FUROSEMIDE 80 MG TABLET. PO SCH ×2 (08:51→14:00)
[2021-11-18] MEDS: ZINC SULFATE 220 MG CAPSULE. PO SCH (08:51)
[2021-11-18] MEDS: cefTRIAXone IV Push 1 GM VIAL. IVP SCH (08:52)
[2021-11-18] MEDS: INSULIN GLARGINE SYRINGE. SQ SCH (08:53)
[2021-11-18] MEDS: HEPARIN for SUB-Q USE 5,000 UNIT/ML VIAL. SQ SCH (08:53)
[2021-11-18] MEDS: INSULIN LISPRO 300 UNITS/3 ML VIAL. SQ SCH ×3 (08:55→18:55)
[2021-11-18] MEDS: ASCORBIC ACID 1,000 MG TABLET PO SCH ×2 (09:00→12:51)
[2021-11-18] MEDS ORDERED: LISINOPRIL 20 MG TABLET PO SCH (09:00)
--- NOTE | 2021-11-18 10:21 | PDOC ---
DATE OF SERVICE DATE: 11/18/21 TIME: 10:21 SUBJECTIVE ROS stable, No concerns voiced by nursing OBJECTIVE Vital Signs Vital Signs Date Time Temp Pulse Resp B/P (MAP) Pulse Ox O2 Delivery O2 Flow Rate FiO2 11/18/21 08:52 68 187/92 11/18/21 07:00 97.9 18 99 Nasal Cannula 4.0 97.9 I & 0 Intake and Output 11/18/21 07:00 Intake Total 1940 ml Balance 1940 ml Intake Oral 1690 ml IV Total 250 ml # Bowel Movements 2 PHYSICAL EXAM Physical Exam GENERAL: NAD HEENT: OM moist , On Chronic home O2, Increased currently NECK: Supple. LUNGS: non labored HEART: S1, S2. ABDOMEN: Soft, nontender. EXTREMITIES: AVG Rt ; Rt BKA SKIN : No generalized rash, no enriquez DIAGNOSIS/ASSESSMENT Assessment & Plan ESRD - On HD MWF @ [facility] under Dr. Ghislaine Driscoll today, discussed treatment plan with ABY Access - Rt arm AVF -- s/p Fistulogram 06/23/21- Moderate stenoses at the junction of the previously stented cephalic vein and subclavian vein, as well as the subclavian vein in the right innominate vein treated with balloon angioplasty with improvement morphology and flow. Anemia Hgb normal , required PRBC in the past . Currently No indication for FABIAN Acute hypoxic respiratory failure secondary to Covid pneumonia COVID-19 infection DM primary managing. Episodes of Hypoglycemia in the past Hypertension BP stable Hx of Right heel wound, - s/p Irrigation debridement of right heel ulcer skin subcutaneous tissue and removal of right great toenail. S/P right below-knee amputation and left heel and great toe debridement on 06/19 history Acute Lt Femoral neck displaced fracture s/p Lt Hip Repair COPD with home O2 dependency COMMENT/RELEVANT DATA Meds Current Medications Medications (Trade) Dose Ordered Sig/Celi Start Time Stop Time Status Last Admin Dose Admin Acetaminophen (Tylenol) 650 mg PRN Q4HRS PRN 11/14/21 09:30 Albumin Human 200 ml @ 200 mls/hr 1X PRN PRN 11/14/21 11:15 11/14/21 17:14 DC Amlodipine Besylate (Norvasc) 10 mg DAILY 11/16/21 16:00 11/18/21 08:52 10 MG Ascorbic Acid (Vitamin C) 3,000 mg TID 11/14/21 14:00 11/16/21 20:46 3,000 MG Aspirin (Aspirin Chewable) 81 mg DAILYWBKFT 11/16/21 16:00 11/18/21 08:51 81 MG Atorvastatin Calcium (Lipitor) 10 mg HS 11/16/21 21:00 11/17/21 20:13 10 MG Azithromycin (Zithromax) 500 mg 1X ONCE 11/14/21 01:00 11/14/21 01:01 DC 11/14/21 01:00 500 MG Azithromycin 500 mg/Sodium Chloride 250 ml @ 250 mls/hr Q24H 11/14/21 21:00 11/17/21 21:59 DC 11/17/21 20:13 250 MLS/HR Ceftriaxone Sodium (Rocephin) 1 gm DAILY 11/14/21 09:30 11/20/21 09:01 11/18/21 08:52 1 GM Dextrose (Dextrose 50%-Water Syringe) 12.5 gm PRN Q15MIN PRN 11/14/21 09:30 Diphenhydramine HCl (Benadryl) 25 mg PRN QHS PRN 11/14/21 09:30 Docusate Sodium (Colace) 100 mg PRN DAILY PRN 11/14/21 09:30 Furosemide (Lasix) 80 mg BID92 11/16/21 16:00 11/18/21 08:51 80 MG Heparin Sodium (Porcine) (Heparin Sodium) 5,000 unit Q12HR 11/14/21 21:00 11/18/21 08:53 5,000 UNIT Info (CONTRAST GIVEN -- Rx MONITORING) 1 each PRN DAILY PRN 11/13/21 23:45 11/15/21 23:44 DC Info (PHARMACY MONITORING -- do not chart) 1 each PRN DAILY PRN 11/16/21 09:45 Insulin Glargine (Lantus Syringe) 20 unit Q12HR 11/16/21 21:00 11/18/21 08:53 20 UNIT Insulin Human Lispro (HumaLOG) 0-7 UNITS TIDWMEALS 11/15/21 17:00 11/18/21 08:55 6 UNITS Iohexol (Omnipaque 350 Mg/ml) 90 ml 1X ONCE 11/14/21 00:00 11/14/21 00:01 DC 2/19/22 00:13 90 ML Lactobacillus Rhamnosus (Culturelle) 1 cap BID 11/15/21 12:00 11/18/21 08:51 1 CAP Levothyroxine Sodium (Synthroid) 175 mcg DAILY06 11/17/21 06:00 11/18/21 04:21 175 MCG Lidocaine HCl (Xylocaine-Mpf 1% 2ml Vial) 2 ml 1X PRN PRN 11/14/21 11:15 11/14/21 19:00 DC Lisinopril (Prinivil) 20 mg 1X ONCE 11/17/21 15:30 11/17/21 15:31 DC 11/17/21 15:38 20 MG Lorazepam (Ativan Inj) 0.25 mg PRN Q4HRS PRN 11/14/21 09:30 Lorazepam (Ativan) 0.5 mg PRN Q6HRS PRN 11/14/21 09:30 Methylprednisolone Sodium Succinate (SOLU-Medrol 40MG VIAL) 40 mg Q8HRS 11/14/21 14:00 11/18/21 04:21 40 MG Ondansetron HCl (Zofran) 4 mg PRN Q6HRS PRN 11/14/21 09:30 Prochlorperazine Edisylate (Compazine) 10 mg PRN Q6HRS PRN 11/14/21 09:30 Sennosides (Senna) 17.2 mg PRN BID PRN 11/14/21 09:30 Sodium Chloride 1,000 ml @ 400 mls/hr Q2H30M PRN 11/16/21 09:45 11/16/21 21:44 DC Thiamine Mononitrate (Vitamin B-1) 300 mg DAILY 11/15/21 09:00 11/18/21 08:51 300 MG Vancomycin HCl (Vanco Per Pharmacy) 1 each PRN DAILY PRN 11/16/21 09:00 11/18/21 08:44 1 EACH Vancomycin HCl (Vancomycin Random Level) 1 each 1X ONCE 11/17/21 06:00 11/17/21 06:01 DC Vancomycin HCl 500 mg/Sodium Chloride 100 ml @ 100 mls/hr QMWF 11/18/21 16:00 Vancomycin HCl 1 gm/Sodium Chloride 250 ml @ 250 mls/hr 1X ONCE 11/16/21 09:30 11/16/21 10:29 DC 11/16/21 09:16 250 MLS/HR Zinc Sulfate (Orazinc) 220 mg DAILY 11/15/21 09:00 11/18/21 08:51 220 MG Zolpidem Tartrate (Ambien) 2.5 mg PRN QHS PRN 11/14/21 09:30 Lab Laboratory Tests Test 11/17/21 12:07 11/17/21 16:42 11/17/21 20:25 11/18/21 03:10 Glucose (Fingerstick) 104 mg/dL (70-99) 254 mg/dL (70-99) 222 mg/dL (70-99) Sodium Level 135 mmol/L (136-145) Potassium Level 3.9 mmol/L (3.5-5.1) Chloride Level 96 mmol/L (98-107) Carbon Dioxide Level 25 mmol/L (21-32) Anion Gap 14 (6-14) Blood Urea Nitrogen 53 mg/dL (8-26) Creatinine 3.4 mg/dL (0.7-1.3) Estimated GFR (Cockcroft-Gault) 18.6 Glucose Level 225 mg/dL (70-99) Calcium Level 8.2 mg/dL (8.5-10.1) Test 11/18/21 07:51 Glucose (Fingerstick) 265 mg/dL (70-99) Results All relevant outside records, renal labs, imaging studies, telemetry/EKG's were reviewed. Justicifation of Admission Dx: Justifications for Admission: Justification of Admission Dx: N/A REBECCA ANGLIN MD Nov 18, 2021 10:21
--- NOTE | 2021-11-18 10:54 | PDOC ---
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 11/18/21 1054: CARDIO Progress Notes Date and Time Date of Service 11/18/21 Time of Evaluation 1030 Subjective Subjective: No Chest Pain, No Palpitations, No Dizziness Vitals Vitals Vital Signs Date Time Temp Pulse Resp B/P (MAP) Pulse Ox O2 Delivery O2 Flow Rate FiO2 11/18/21 08:52 68 187/92 11/18/21 07:00 97.9 18 99 Nasal Cannula 4.0 97.9 Weight Weight [ ] Input and Output Intake and Output Intake and Output 11/18/21 07:00 Intake Total 1940 ml Balance 1940 ml Intake Oral 1690 ml IV Total 250 ml # Bowel Movements 2 Laboratory Labs Laboratory Tests Test 11/17/21 12:07 11/17/21 16:42 11/17/21 20:25 11/18/21 03:10 Glucose (Fingerstick) 104 mg/dL (70-99) 254 mg/dL (70-99) 222 mg/dL (70-99) Sodium Level 135 mmol/L (136-145) Potassium Level 3.9 mmol/L (3.5-5.1) Chloride Level 96 mmol/L (98-107) Carbon Dioxide Level 25 mmol/L (21-32) Anion Gap 14 (6-14) Blood Urea Nitrogen 53 mg/dL (8-26) Creatinine 3.4 mg/dL (0.7-1.3) Estimated GFR (Cockcroft-Gault) 18.6 Glucose Level 225 mg/dL (70-99) Calcium Level 8.2 mg/dL (8.5-10.1) Test 11/18/21 07:51 Glucose (Fingerstick) 265 mg/dL (70-99) Microbiology Micro Microbiology 11/14/21 Blood Culture - Final, Complete Staphylococcus Epidermidis Physical Exam HEENT: Neck Supple W Full Motion Chest: Symmetric LUNGS: Other (on NC) Heart: RRR Extremities: Other (Right BKA and left AKA) Neurology: alert, oriented, follow commands Assessment Assessment 1. Acute on chronic hypoxic respiratory failure secondary to COVID PNA 2. Acute on chronic combined systolic and diastolic CHF secondary to missed HD. Echo 04/15 with LVEF 40 to 45%. 3. CAD s/p PCI/SCOTTY to LCx and RCA July 2018. Troponin level slightly elevated probably type II, demand ischemia. CP free. 4. 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 Hypertension: remains elevated 6. Hyperlipidemia; statin 7. Diabetes, II 8. ESRD on HD 9. Bacteremia; BC with GPC 2/4 bottles Recommendations Fluid offloading via HD Add hydralazine for better BP control Secondary prevention Outpatient ischemic evaluation Ongoing pulmonary optimization, treatment of COVID PNA Supportive care Justicifation of Admission Dx: Justifications for Admission: Justification of Admission Dx: N/A ASH VALERIO MD 11/19/21 1023: CARDIO Progress Notes Plan Plan Late entry for 11/18/2021 Patient seen and examined. Agree with above nurse practitioner note. Stable for discharge from a cardiovascular standpoint STEPHEN DICKEY APRN Nov 18, 2021 10:54 ASH VALERIO MD Nov 19, 2021 10:23
[2021-11-18 11:00] VITALS: BP 145/73
--- NOTE | 2021-11-18 12:00 | PDOC3 ---
Discharge Summary Visit Information Date of Admission: Nov 13, 2021 Date of Discharge: Nov 18, 2021 Final Diagnosis Acute hypoxic respiratory failure secondary to Covid pneumonia COVID-19 infection Acute electrolyte derangement consistent with ESRD Anemia of ESRD left [id number] amputation for Diabetic foot ulcer on left leg with dry gangrene end-stage renal disease on HD via RUE access Severe peripheral vascular disease, prior right BKA, , diabetes, hypertension, hyperlipidemia, depression, anxiety. weight loss, Chronic pain, Osteoarthritis, LE edema, hypothyroidism. hx of falls, left hip fracture --> left total hip arthroplasty. meet-umbilical subcutaneous bruising - CT abdomen/pelvis to r/o intraabdominal hemorrhage/pancreatitis 09/01/21 anemia on ESRD previous smoker hx of poor compliance noted Problems Medical Problems: (1) Acute respiratory failure with hypoxia Status: Acute (2) COVID-19 Status: Acute (3) NSTEMI (non-ST elevated myocardial infarction) Status: Acute Brief Hospital Course Allergies Allergies Coded Allergies Type Severity Reaction Last Updated Verified No Known Drug Allergies 08/28/21 No Vital Signs Vital Signs Date Time Temp Pulse Resp B/P (MAP) Pulse Ox O2 Delivery O2 Flow Rate FiO2 11/18/21 11:00 98.0 67 18 145/73 (97) 99 Nasal Cannula 4.0 98.0 Lab Results Laboratory Tests Test 11/16/21 16:28 11/16/21 21:15 11/16/21 22:15 11/17/21 07:55 Glucose (Fingerstick) 187 mg/dL (70-99) 77 mg/dL (70-99) 95 mg/dL (70-99) White Blood Count 12.3 x10^3/uL (4.0-11.0) Red Blood Count 4.82 x10^6/uL (4.30-5.70) Hemoglobin 14.2 g/dL (13.0-17.5) Hematocrit 43.8 % (39.0-53.0) Mean Corpuscular Volume 91 fL (79-100) Mean Corpuscular Hemoglobin 29 pg (25-35) Mean Corpuscular Hemoglobin Concent 32 g/dL (31-37) Red Cell Distribution Width 18.8 % (11.5-14.5) Platelet Count 97 x10^3/uL (140-400) Neutrophils (%) (Auto) 92 % (31-73) Lymphocytes (%) (Auto) 6 % (24-48) Monocytes (%) (Auto) 2 % (0-9) Eosinophils (%) (Auto) 0 % (0-3) Basophils (%) (Auto) 0 % (0-3) Neutrophils # (Auto) 11.3 x10^3/uL (1.8-7.7) Lymphocytes # (Auto) 0.7 x10^3/uL (1.0-4.8) Monocytes # (Auto) 0.2 x10^3/uL (0.0-1.1) Eosinophils # (Auto) 0.0 x10^3/uL (0.0-0.7) Basophils # (Auto) 0.0 x10^3/uL (0.0-0.2) Sodium Level 134 mmol/L (136-145) Potassium Level 4.5 mmol/L (3.5-5.1) Chloride Level 98 mmol/L (98-107) Carbon Dioxide Level 27 mmol/L (21-32) Anion Gap 9 (6-14) Blood Urea Nitrogen 36 mg/dL (8-26) Creatinine 2.7 mg/dL (0.7-1.3) Estimated GFR (Cockcroft-Gault) 24.3 Glucose Level 80 mg/dL (70-99) Calcium Level 8.4 mg/dL (8.5-10.1) Magnesium Level 2.5 mg/dL (1.8-2.4) Random Vancomycin Level 12.6 mcg/mL Test 11/17/21 08:21 11/17/21 12:07 11/17/21 16:42 11/17/21 20:25 Glucose (Fingerstick) 77 mg/dL (70-99) 104 mg/dL (70-99) 254 mg/dL (70-99) 222 mg/dL (70-99) Test 11/18/21 03:10 11/18/21 07:51 11/18/21 11:56 Sodium Level 135 mmol/L (136-145) Potassium Level 3.9 mmol/L (3.5-5.1) Chloride Level 96 mmol/L (98-107) Carbon Dioxide Level 25 mmol/L (21-32) Anion Gap 14 (6-14) Blood Urea Nitrogen 53 mg/dL (8-26) Creatinine 3.4 mg/dL (0.7-1.3) Estimated GFR (Cockcroft-Gault) 18.6 Glucose Level 225 mg/dL (70-99) Calcium Level 8.2 mg/dL (8.5-10.1) Glucose (Fingerstick) 265 mg/dL (70-99) 330 mg/dL (70-99) Laboratory Tests Test 11/17/21 12:07 11/17/21 16:42 11/17/21 20:25 11/18/21 03:10 Glucose (Fingerstick) 104 mg/dL (70-99) 254 mg/dL (70-99) 222 mg/dL (70-99) Sodium Level 135 mmol/L (136-145) Potassium Level 3.9 mmol/L (3.5-5.1) Chloride Level 96 mmol/L (98-107) Carbon Dioxide Level 25 mmol/L (21-32) Anion Gap 14 (6-14) Blood Urea Nitrogen 53 mg/dL (8-26) Creatinine 3.4 mg/dL (0.7-1.3) Estimated GFR (Cockcroft-Gault) 18.6 Glucose Level 225 mg/dL (70-99) Calcium Level 8.2 mg/dL (8.5-10.1) Test 11/18/21 07:51 11/18/21 11:56 Glucose (Fingerstick) 265 mg/dL (70-99) 330 mg/dL (70-99) Brief Hospital Course Mr. 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 Discharge Information Condition at Discharge: Improved Follow Up: Weeks Disposition/Orders: D/C to Home w/ HH Scheduled Acetaminophen (Tylenol) 325 Mg Tablet, 650 MG PO PRN Q6HRS for mild pain, (Reported) Entered as Reported by: VICKY PATE on 10/02/181855 Last Action: Reviewed on 11/14/21308 by Sb Bahena Amlodipine Besylate (Amlodipine Besylate) 10 Mg Tablet, 10 MG PO DAILY for htn, (Reported) Entered as Reported by: Sb Bahena on 11/14/21308 Last Taken: UNKNOWN on Unknown Date & Time Last Action: Continued on 11/16/211537 by STEPHEN DICKEY APRN Amoxicillin/Potassium Clav (Augmentin 500-125 Tablet) 1 Each Tablet, 1 TAB PO BID for pneumonia for 3 Days, #6 Ref 0 Prescribed by: PAWEL GARCÍA MD on 11/17/21 1350 Ascorbic Acid (Vitamin C) 500 Mg Tablet, 500 MG PO DAILY for SUPPLEMENT for 30 Days, #30 Prescribed by: PABLO SHERMAN MD on 11/26/19 1605 Last Action: Reviewed on 11/14/21308 by Sb Bahena Aspirin (Aspirin) 81 Mg Tab.chew, 81 MG PO DAILYWBKFT for heart health for 30 Days, #30 Prescribed by: PABLO SHERMAN MD on 08/29/18 1346 Last Action: Continued on 11/16/211537 by STEPHEN DICKEY APRN Atorvastatin Calcium (Atorvastatin Calcium) 10 Mg Tablet, 10 MG PO HS for FOR CHOLESTEROL, #30 Ref 0 (Reported) Entered as Reported by: JACQUIE HEADLEY RN on 05/29/212201 Last Action: Continued on 11/16/211537 by STEPHEN DICKEY APRN Budesonide (Budesonide) 0.5 Mg/2 Ml Ampul.neb, 0.5 MG NEB RTBID for copd for 30 Days, #60 Prescribed by: PABLO SHERMAN MD on 08/29/18 1346 Last Action: Reviewed on 11/14/21308 by Sb Bahena Calcium Acetate (Calcium Acetate) 667 Mg Tablet, 667 MG PO TIDWMEALS for DIALYSIS PATIENTS, (Reported) Entered as Reported by: KWABENA RODRIGUEZ on 11/07/185 Last Action: Reviewed on 11/14/21308 by Sb Bahena Cholecalciferol (Vitamin D3) (Vitamin D3) 125 Mcg Tablet, 125 MCG PO DAILY for VITAMIN , (Reported) Entered as Reported by: CHANEL WHITING on 08/27/21 0756 Last Action: Reviewed on 11/14/21308 by Sb Bahena Folic Acid/Vitamin B Comp W-C (Madai-Sean Tablet) 0.8 Mg Tablet, 1 TAB PO DAILY for SUPPLEMENT for 30 Days, #30 Prescribed by: PABLO SHERMAN MD on 11/26/19 1605 Last Action: Reviewed on 11/14/21308 by Sb Bahena Furosemide (Furosemide) 80 Mg Tablet, 1 TAB PO BID for watere retention, #30 Ref 5 (Reported) Entered as Reported by: ELIZABETH CLEMENS on 08/13/217 Last Action: Continued on 11/16/211537 by STEPHEN DICKEY APRN Hydrocodone/Acetaminophen (Hydrocodone-Acetamin 7.5-325) 1 Each Tablet, 1 EACH PO Q6H for pain for 7 Days, #28 Prescribed by: SAIDA JACKSON on 08/04/21 0950 Last Action: Reviewed on 11/14/21308 by Sb Bahena Insulin Glargine,Hum.rec.anlog (Lantus Solostar) 100 Unit/1 Ml Insuln.pen, 3 UNIT SQ QHS for n, #15 Ref 3 (Reported) Entered as Reported by: Vicky Simon on 08/28/21 1236 Last Action: Reviewed on 11/14/21308 by Sb Bahena Insulin Lispro (Admelog) 100 Unit/1 Ml Vial, 0-5 UNITS SQ QIDACHS for hyperglycemia for 30 Days, #1 Prescribed by: JIN REYES MD on 07/13/21 1059 Last Action: Reviewed on 11/14/21308 by Sb Bahena Ipratropium/Albuterol Sulfate (Duoneb 0.5-3(2.5) Mg/3 Ml) 3 Ml Ampul.neb, 3 ML NEB RTQID for copd for 30 Days, #120 Prescribed by: PABLO SHERMAN MD on 08/29/18 1346 Last Action: Reviewed on 11/14/21308 by Sb Bahena Levothyroxine Sodium (Levothyroxine Sodium) 100 Mcg Tablet, 175 MCG PO DAILYAC for THYROID SUPPLEMENT, #30 Ref 0 (Reported) Entered as Reported by: BETHANY COVINGTON on 06/16/21 1843 Last Action: Continued on 11/16/211537 by STEPHEN DICKEY APRN Lisinopril (Lisinopril) 20 Mg Tablet, 1 TAB PO DAILY for high blood pressure, #30 Ref 5 (Reported) Entered as Reported by: ELIZABETH CLEMENS on 08/13/21 1537 Last Action: Continued on 11/16/211537 by STEPHEN DICKEY APRN [place]-3 Fatty Acids/Fish Oil ([place] 3 Fish Oil Softgel) 1 Each Capsule., 1 EACH PO DAILY for supplement, (Reported) Entered as Reported by: KWABENA RODRIGUEZ on 11/07/18 0315 Last Action: Reviewed on 11/14/21 030 by Sb Bahena Prednisone (Prednisone) 20 Mg Tablet, 1 TAB PO DAILY for prednisone taper, #5 Prescribed by: PAWEL GARCÍA MD on 11/17/21 1348 Patient Instructions Patient Instructions 37 minutes face to face Justicifation of Admission Dx: Justifications for Admission: Justification of Admission Dx: N/A CORNELIO OATES MD Nov 18, 2021 12:00
[2021-11-18 15:00] VITALS: BP 147/77
[2021-11-18] MEDS ORDERED: VANCOMYCIN 500 MG in IV NORMAL SALINE 100ML 100 ML IV SCH (16:00)
[2021-11-18] MEDS ORDERED: DIALYSIS PATIENT. MC PRN (17:30)
--- NOTE | 2021-11-18 20:12 | NUR ---
Discharge Note: [facility] Discharge instructions and discharge home medications reviewed with Patient and a copy given. All questions have been answered and understanding verbalized. The following instructions and handouts were given: chest pain, DM2, DM type 2 meal planning IV discontinued, no complications Patient discharged to home with home health via stretcher. All belongings taken with patient script given to patient for hydralazine 50 mg BID, see paper chart for copy.
== END 2021-11-18 20:05 | disposition home health service (06) | DRG 871 ==
LOC: ER 21:47 → 6 SOUTH 23:21
PROVIDERS: ADMIT Internal Medicine; ATTEND Internal Medicine
PROC: 5A1D70Z Performance of Urinary Filtration, Intermittent, Less than 6 Hours Per Day (ICD-10-PCS; 2021-11-14)
PROC: 5A1D70Z Performance of Urinary Filtration, Intermittent, Less than 6 Hours Per Day (ICD-10-PCS; 2021-11-16)
PROC: 5A1D70Z Performance of Urinary Filtration, Intermittent, Less than 6 Hours Per Day (ICD-10-PCS; principal; 2021-11-18)
DX: A41.89 Other specified sepsis (principal); U07.1 COVID-19; J12.82 Pneumonia due to coronavirus disease 2019; I50.43 Acute on chronic combined systolic (congestive) and diastolic (congestive) heart failure; I21.4 Non-ST elevation (NSTEMI) myocardial infarction; J96.21 Acute and chronic respiratory failure with hypoxia; N18.6 End stage renal disease; E11.52 Type 2 diabetes mellitus with diabetic peripheral angiopathy with gangrene; I13.2 Hypertensive heart and chronic kidney disease with heart failure and with stage 5 chronic kidney disease, or end stage renal disease; J44.0 Chronic obstructive pulmonary disease with (acute) lower respiratory infection; N25.81 Secondary hyperparathyroidism of renal origin; D63.1 Anemia in chronic kidney disease; E03.9 Hypothyroidism, unspecified; E11.22 Type 2 diabetes mellitus with diabetic chronic kidney disease; E11.621 Type 2 diabetes mellitus with foot ulcer; E78.00 Pure hypercholesterolemia, unspecified; E78.5 Hyperlipidemia, unspecified; G89.29 Other chronic pain; I25.10 Atherosclerotic heart disease of native coronary artery without angina pectoris; I70.0 Atherosclerosis of aorta; L97.529 Non-pressure chronic ulcer of other part of left foot with unspecified severity; M19.90 Unspecified osteoarthritis, unspecified site; M50.323 Other cervical disc degeneration at C6-C7 level; S00.83XA Contusion of other part of head, initial encounter; Z82.49 Family history of ischemic heart disease and other diseases of the circulatory system; Z83.3 Family history of diabetes mellitus; Z86.74 Personal history of sudden cardiac arrest; Z87.891 Personal history of nicotine dependence; Z89.511 Acquired absence of right leg below knee; Z89.612 Acquired absence of left leg above knee; Z91.81 History of falling; Z96.642 Presence of left artificial hip joint; Z98.61 Coronary angioplasty status; Z99.2 Dependence on renal dialysis; E21.3 Hyperparathyroidism, unspecified; F32.A Depression, unspecified; F41.9 Anxiety disorder, unspecified; K21.9 Gastro-esophageal reflux disease without esophagitis; W18.39XA Other fall on same level, initial encounter; Y93.89 Activity, other specified; Y92.89 Other specified places as the place of occurrence of the external cause; Y99.8 Other external cause status
CPT/HCPCS: 36415; 36600; 70450; 70486; 71045; 71275; 72125; 80048; 80053; 80202; 82550; 82805; 82962; 83605; 83735; 83880; 84100; 84145; 84484; 85007; 85025; 85610; 85730; 87040; 87426; 87428; 93005; J0456; J0696; J1644; J1815; J2920; J3370; J7050; Q9967; 97530-GO; 99285-25; G0378; J7030